=== PATIENT | female | born 1995 | race Caucasian/White ===

== ENCOUNTER 2023-02-23 13:43 | Outpatient (OUT) | payer OTHER, SELFPAY ==
--- NOTE | 2023-02-23 13:46 | CT_ITS ---
The [address] [address] Patient Name: NATHANIEL TAYLOR MRN: [facility]:[id number] date: 1995 Sex: F Assigned Patient Location: CT Current Patient Location: CT Accession/Order Number: [id number] Exam Date: 02/23/2023 13:52 Report Date: 02/23/2023 14:13 At the request of: NON-STAFF PHYSICIAN Procedure: CT head/brain wo con EXAM: CT head/brain wo con HISTORY: Nausea R11.0, Dizziness R42 COMPARISON: None. TECHNIQUE: Axial soft tissue and bone windows through the calvarium with coronal and sagittal reformats. CT dose reduction technique was used including Automated Exposure Control. Findings: The paranasal sinuses and mastoid air cells are well aerated. No air-fluid levels. No extra-axial fluid collection. No intra-axial or extra-axial bleed. No mass effect or midline shift. The amos-white matter differentiation is preserved. The brain parenchymal volume is age appropriate. The ventricles are nondilated. The basal cisterns are patent. The craniovertebral junction is unremarkable. CT/CT head/brain wo con IMPRESSION: 1. No acute intracranial abnormality. Electronically authenticated by: DORA CLAYTON Date: 02/23/2023 14:13
== END 2023-02-23 13:44 | disposition home or self-care (01) ==
LOC: CT 13:43
DX: R42 Dizziness and giddiness (principal); G43.909 Migraine, unspecified, not intractable, without status migrainosus; R11.0 Nausea
CPT/HCPCS: 70450

== ENCOUNTER 2023-02-24 08:21 | Outpatient (OUT) | payer OTHER, SELFPAY ==
[2023-03-02 00:07] LABS: DHEA, Serum 145 ng/dL (31-701)
== END 2023-02-24 08:22 | disposition home or self-care (01) ==
LOC: LAB 08:22
DX: E27.8 Other specified disorders of adrenal gland (principal); E27.0 Other adrenocortical overactivity
CPT/HCPCS: 36415; 82533; 82626; 82627

== ENCOUNTER 2023-11-07 20:20 | Outpatient (REF) | payer OTHER, SELFPAY ==
[2023-11-13 11:20] LABS: Age Gdln ACOG Testing Note (.); IGP, rfx Aptima HPV ASCU Note (.)
== END 2023-11-07 20:21 | disposition home or self-care (01) ==
LOC: LAB 20:20
PROVIDERS: Visit Provider Obstetrics & Gynecology
DX: Z01.419 Encounter for gynecological examination (general) (routine) without abnormal findings (principal)
CPT/HCPCS: G0145

== ENCOUNTER 2023-12-05 14:20 | Outpatient (REF) | payer OTHER, SELFPAY | END 2023-12-05 14:21 | disposition home or self-care (01) | LOC: LAB 14:20 | PROVIDERS: Visit Provider Obstetrics & Gynecology | DX: D22.5 Melanocytic nevi of trunk (principal); D22.4 Melanocytic nevi of scalp and neck | CPT/HCPCS: 88305 ==

== ENCOUNTER 2024-12-16 13:30 | Outpatient (RCR) | payer OTHER, SELFPAY ==
[2024-12-10 14:35] VITALS: BP 121/78; PULSE 91; TEMP 36.6; O2SAT 96
[2024-12-10] MEDS: MULTIVIT INFUSN,ADULT 4,VIT K 10 ML in 0.9 % SODIUM CHLORIDE 1,000 ML 500 ML IV (14:40)
[2024-12-10] MEDS: ONDANSETRON PF 4 MG/2 ML VIAL IV (14:48)
[2024-12-10 15:19] LABS: Basophils Absolute Auto 0.1 10^3/uL (0.0-0.1); Basophils Percent Auto 0.4 % (0.2-2.0); Eosinophils Absolute Auto 0.1 10^3/uL (0.0-0.7); Eosinophils Percent Auto 0.9 % (0.9-7.0); Hematocrit 43.2 % (36.0-48.0); Hemoglobin 15.2 g/dL (12.0-16.0); Immature Granulocytes Abs Auto 0.05 10^3/uL (0.00-0.03); Immature Granulocytes Pct Auto 0.4 % (0.0-0.5); Lymphocytes Absolute Auto 2.3 10^3/uL (1.2-3.8); Lymphocytes Percent Auto 17.1 % (20.5-60.0); Mean Corpuscular HGB Conc 35.2 g/dL (29.9-35.2); Mean Corpuscular Hemoglobin 29.9 pg (26.7-34.0); Mean Platelet Volume 11.8 fL (9.5-13.5); Monocytes Absolute Auto 0.7 10^3/uL (0.3-0.8); Monocytes Percent Auto 5.5 % (1.7-12.0); Neutrophils Absolute Auto 10.3 10^3/uL (1.4-6.5); Neutrophils Percent Auto 75.7 % (43.0-75.0); Platelet Count 218 10^3/uL (150-450); Red Blood Count 5.08 10^6/uL (4.20-5.40); Red Cell Distribution Width 13.4 % (11.0-15.0); White Blood Count 13.6 10^3/uL (4.0-11.0)
[2024-12-10 15:32] LABS: Alanine Aminotransferase 37 U/L (14-59); Albumin Globulin Ratio 0.8; Albumin Level 3.4 g/dL (3.4-5.0); Alkaline Phosphatase 65 U/L (46-116); Anion Gap 15.9; BUN Creatinine Ratio 32.7; Bilirubin Total 0.4 mg/dL (0.2-1.0); Calcium 9.4 mg/dL (8.5-10.1); Carbon Dioxide 24.4 mmol/L (21.0-32.0); Chloride 101 mmol/L (98-107); Estimated GFR (African America >60 (>=60 mL/min/1.73m^2); Estimated GFR (Non-African Ame >60 (>=60 mL/min/1.73m^2); Globulin 4.3 g/dL; Glucose 89 mg/dL (74-106); Sodium 137 mmol/L (136-145); Total Protein 7.7 g/dL (6.4-8.2)
[2024-12-10 15:47] LABS: Aspartate Amino Transferase 28 U/L (15-37); Potassium 4.3 mmol/L (3.5-5.1)
[2024-12-10 16:26] LABS: Estimated Average Glucose 103 mg/dL; Glycohemoglobin A1C 5.2 % (4.5-6.2)
--- NOTE | 2024-12-10 16:33 | PC.NURSE ---
1620: Up to bathroom to void. Urine specimen obtained. Pt. denies needs or c/o.
[2024-12-10 17:51] LABS: Amphetamine Screen Urine NEGATIVE (NEGATIVE); Barbiturates Screen Urine NEGATIVE (NEGATIVE); Benzodiazepines Screen Urine NEGATIVE (NEGATIVE); Buprenorphine Screen Urine NEGATIVE (NEGATIVE); Cannabinoid Screen Urine NEGATIVE (NEGATIVE); Cocaine Screen Urine NEGATIVE (NEGATIVE); Methadone Screen Urine NEGATIVE (NEGATIVE); Methamphetamines Screen Urine NEGATIVE (NEGATIVE); Opiate Screen Urine NEGATIVE (NEGATIVE); Oxycodone Screen Urine NEGATIVE (NEGATIVE); Phencyclidine Screen Urine NEGATIVE (NEGATIVE); Tricyclic Antidepressant Urine NEGATIVE (NEGATIVE)
[2024-12-11 04:07] LABS: Transferrin 270 mg/dL (192-364)
[2024-12-11 05:07] LABS: HIV Ab/p24 Ag Screen Non Reactive (Non Reactive)
[2024-12-11 06:07] LABS: HBsAg Screen Negative (Negative); HCV Ab Non Reactive (Non Reactive); Rubella Antibodies, IgG <0.90 index (Immune >0.99)
[2024-12-11 13:12] LABS: Rapid Plasma Reagin, Quant Non Reactive titer (NonRea<1:1)
[2024-12-16 13:25] VITALS: BP 119/75; PULSE 82; TEMP 36.6; O2SAT 97
[2024-12-16] MEDS: MULTIVIT INFUSN,ADULT 4,VIT K 10 ML in 0.9 % SODIUM CHLORIDE 1,000 ML 500 ML IV (13:51)
[2024-12-16] MEDS: ONDANSETRON PF 4 MG/2 ML VIAL IV (13:52)
--- NOTE | 2024-12-16 14:19 | PC.NURSE ---
Tolerating infusion without c/o. Resting quietly with eyes closed. IV site remains without s&s of infiltration.
== END 2024-12-22 23:59 | disposition home or self-care (01) ==
LOC: INF 13:30
PROVIDERS: PCP Nurse Practitioner Family; Visit Provider Obstetrics & Gynecology
DX: O21.9 Vomiting of pregnancy, unspecified (principal); O99.280 Endocrine, nutritional and metabolic diseases complicating pregnancy, unspecified trimester; Z3A.00 Weeks of gestation of pregnancy not specified; E86.0 Dehydration
CPT/HCPCS: 36415; 80053; 80307; 82728; 83036; 84466; 85025; 86592; 86762; 86803; 86850; 86900; 86901; 87086; 87340; 87389; 96365; 96366; 96375; J2405

== ENCOUNTER 2025-01-14 19:34 | Outpatient (REF) | payer OTHER, SELFPAY ==
--- OUTSIDE RECORDS SUMMARY | 2025-01-14 19:38 | XMS_ITS | CCD ---
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 Name Role Phone NICK, DR NIELSEN Admitting Unavailable NICK, DR NIELSEN Attending Unavailable SMITH ., VI Primary Care Unavailable NICK, DR NIELSEN Consulting Unavailable ANGEL ., DR PAULINO Consulting Unavailable ANGEL ., DR PAULINO Admitting Unavailable ANGEL ., DR PAULINO Attending Unavailable SMITH ., VI Primary Care Unavailable ARLINGTON, DR NIELSEN V Consulting Unavailable ANGEL ., DR PAULINO Consulting Unavailable ANGEL ., DR PAULINO Admitting Unavailable ANGEL ., DR PAULINO Attending Unavailable REQUEST, DR NONE LISTED Primary Care Unavaila ble ANGEL ., DR PAULINO Consulting Unavailable Lore[place], Yovany Consulting Unavailable ANGEL ., DR PAULINO Admitting Unavailable ANGEL ., DR PAULINO Attending Unavailable REQUEST, NONE LISTED Primary Care Unavaila ble ANGEL ., DR PAULINO Consulting Unavailable ANGEL ., DR PAULINO Admitting Unavailable ANGEL ., DR PAULINO Attending Unavailable REQUEST, NONE LISTED Primary Care Unavaila ble ANGEL ., DR PAULINO Consulting Unavailable Nelida Mckenzie Unavailable TY STRATTON Attending Unavailable NELIDA MCKENZIE Referring Unavailable NELIDA MCKENZIE Primary Care Unavailable YANELI Mckenzie Primary Care Provider Junito Ortiz Attending Provider Nelida Mckenzie Primary Care Unavailable Junito Ortiz Attending Unavailable Junito Ortiz Admitting Unavailable [place] Nelida DEL VALLE Primary Care Provider Unallocated , Noms Provider Primary Care Provi aristeo Maurice Renee DO Unavailable MAURICE RENEE Attending Unavailable NELIDA MCKENZIE Referring Unavailable JUNITO ORTIZ Attending Unavailable Allergies Allergy Classification Reported Allergen(s) Allergy Type Date of Onset Reaction(s) Facility (9 sources) House dust mite Drug allergy Unknown [facility] pyco Other (15 sources) Pollen Drug allergy 4 Unknown [facility] Other (5 sources) house dust allergenic extract; Translations: [house dust] Drug Allergy 4 Unknown Reaction [facility] (5 sources) Pollen; Translations: [pollen extracts] Allergy to substance 4 Unknown Reaction [facility] Medications Current Medications Medication Drug Class(es) Dates Sig (Normalized) Sig (Original) atogepant 60 MG Oral Tablet [Qulipta] (1 source) take 1 tablet by mouth every twenty-four hours Qulipta 60 MG 1 tablet Orally Once a day Active dexamethasone 1 mg oral tablet (2 sources) Corticosteroid Start: 02-21-2023 Dexamethasone 1 MG 1 tablet Orally 11pm for 1 days Jan, Active Doxylamine Succinate, Sleep, (UNISOM PO) (3 sources) Doxylamine Succinate, Sleep, (UNISOM PO) Take by mouth Active famotidine 10 mg oral tablet (3 sources) Histamine-2 Receptor Antagonist famotidine (Pepcid) 10 MG tablet Take by mouth Active fexofenadine (10 sources) Histamine-1 Receptor Antagonist Start: 12-25-2023 fexofenadine (Blanche Allergy) Active PO December 25, 2023 12:00am Start: 09-19-2023 End: 11-28-2023 fexofenadine (Blanche Allerg y) Discontinued PO Daily September 19, 2023 12:00am November 28, 2023 8:59am Start: 09-19-2023 fexofenadine ( Blanche Allergy) Active PO Daily September 19, 2023 12:00am Start: 09-12-2023 End: 12-17-2024 fexofenadine (Blanche Allerg y) 180 MG tablet 09/12/2023 12/17/2024 Discontinued Magnesium (18 sources) Start: 12-25-2023 magnesium Acti ve PO December 25, 2023 12:00am Start: 09-03-2023 End: 11-28-2023 magnesium Discontinued PO [facility] 2023 12:00am November 28, 2023 8:59am Start: 09-03-2023 magnesium Acti ve PO September 03, 2023 12:00am Start: 08-17-2022 magnesium 100 MG tablet 08/17/2022 Active Magnesium OTC, d aily Active ondansetron 4 mg oral tablet (20 sources) Serotonin-3 Receptor Antagonist Start: 11-05-2024 take 1 tablet by mouth every six hours as needed for nausea and nausea, then take 1 tablet by mouth every six hours as needed for nausea and nausea ondansetron (Zofran) 4 MG tablet Indications: Nausea and vomiting in ([facility]) Take 1 tablet (4 mg) by mouth every 6 (six) hours if needed for nausea or vomiting for up to 30 doses Take 1 tablet by mouth every 6 hours as needed for nausea. 30 tablet 3 11/05/2024 Active Start: 09-03-2023 End: 12-25-2023 take 4 mg by mouth once daily Ondansetron Hcl Active 4 MG PO Daily December 25, 2023 12:36pm Start: 07-17-2023 take 1 tablet by preethi th every twenty-four hours Ondansetron HCl 4 MG 1 tablet Orally Once a day for 14 days Jun, Active End: 12-17-2024 take 1 tablet by mouth every eight hours as needed ondansetron ODT (Zofran-ODT) 4 MG disintegrating tablet Take 4 mg by mouth every 8 (eight) hours if needed 12/17/2024 Discontinued take 1 tablet by preethi th every six hours as needed Ondansetron HCl 4 MG 1 tablet on the tongue and allow to dissolve Orally every 6 hours as needed Not-Taking/PRN pantoprazole 40 mg delayed release oral tablet (3 sources) Proton Pump Inhibitor Start: 12-17-2024 End: 12-17-2025 take 1 tablet by mouth before mealtime pantoprazole (Protonix) 40 MG EC tablet Indications: Gastroesophageal reflux disease with esophagitis, unspecified whether hemorrhage Take 1 tablet (40 mg) by mouth in the morning. Take before meals. Do not crush, chew, or split. 30 tablet 11 12/17/2024 12/17/2025 Active Probiotic Product (PROBIOTIC ADVANCED PO) (5 sources) Probiotic Produc t (PROBIOTIC ADVANCED PO) Probiotic Active pyridoxine hydrochloride 25 mg oral tablet (3 sources) take 1 tablet by mouth once daily pyridoxine (Vitamin B-6) 25 MG tablet Take 25 mg by mouth Daily Active qulipta 60 mg tablet (3 sources) take 1 tablet by mouth every twenty-four hours Qulipta 60 MG 1 tablet Orally Once a day Active rizatriptan 10 mg oral tablet (13 sources) Serotonin-1b and Serotonin-1d Receptor Agonist Start: 07-04-2024 rizatriptan (MAXALT) 10 mg tablet Indications: Migraine without aura and without status migrainosus, not intractable TAKE 1 TABLET AT ONSET OF MIGRAINE MAY REPEAT DOSE AFTER 2HRS IF MIGRAINE PERSISTS MAX 2/24HR 12 tablet 2 07/04/2024 Active Start: 09-05-2023 rizatriptan (M AXALT) 10 mg tablet Indications: Migraine without aura and without status migrainosus, not intractable Take 1 tablet just after onset of migraine. May repeat the dose after 2 hours if migraine persists. Max of 2 doses per 24 hours. 12 tablet 2 09/05/2023 Active Start: 05-23-2023 End: 11-28-2023 take 5 mg by mouth once daily Rizatriptan Discontinued 5 MG PO Daily September 03, 2023 12:00am November 28, 2023 8:59am verapamil hydrochloride 120 mg extended release oral tablet (2 sources) Calcium Channel Jesús Start: 09-05-2023 take 1 tablet by mouth once daily verapamil SR (CALAN-SR) 120 mg CR tablet Indications: Migraine without aura and without status migrainosus, not intractable Take 1 tablet (120 mg total) by mouth nightly. 30 tablet 5 09/05/2023 Active Completed/Discontinued Medications Medication Drug Class(es) Dates Sig (Normalized) Sig (Original) Atogepant (4 sources) Start: 09-03-2023 End: 09-19-2023 take 60 mg by mouth once daily Atogepant Discontinued 60 MG PO Daily September 03, 2023 12:00am September 19, 2023 11:04am atogepant (QULIPTA) 60 mg tablet (2 sources) Start: 05-23-2023 End: 09-05-2023 take 1 tablet by mouth in the morning atogepant (QULIPTA) 60 mg tablet Indications: Migraine without aura and without status migrainosus, not intractable Take 60 mg by mouth in the morning. 30 tablet 5 05/23/2023 09/05/2023 Discontinued Start: 05-23-2023 take 1 tablet by preethi th in the morning atogepant (QULIPTA) 60 mg tablet Indications: Migraine without aura and without status migrainosus, not intractable Take 60 mg by mouth in the morning. 30 tablet 5 05/23/2023 Active 24 hr buPROPion hydrochloride 150 mg extended release oral tablet (20 sources) Aminoketone Start: 09-19-2023 End: 11-28-2023 take 150 mg by mouth once daily Bupropion Hcl Discontinued 150 MG PO Daily September 19, 2023 11:41am November 28, 2023 8:59am Start: 09-03-2023 End: 09-19-2023 take 1 tablet by mouth once daily Bupropion Hcl (Wellbutrin Xl) 300 mg tablet extended release 24 hr Discontinued 300 MG PO Daily September 03, 2023 2:17pm September 19, 2023 11:41am take 2 tablets by mo uth every twenty-four hours in the morning buPROPion XL (WELLBUTRIN XL) 150 mg 24 hr tablet Take 2 tablets (300 mg total) by mouth in the morning. Active take 1 tablet by preethi th every twenty-four hours Wellbutrin XL 300 MG 1 tablet in the morning Orally Once a day for 90 days Active take 1 tablet by preethi th every twenty-four hours in the morning buPROPion XL (WELLBUTRIN XL) 150 mg 24 hr tablet Take 1 tablet (150 mg total) by mouth in the morning. 0 Active take 1 tablet by preethi th every twenty-four hours Wellbutrin XL 150 MG 1 tablet in the morning Orally Once a day for 90 days Active magnesium oxide 250 mg oral tablet (2 sources) End: 09-05-2023 take 1 tablet by mouth in the morning magnesium oxide 250 mg tablet Take 1 tablet (250 mg total) by mouth in the morning. 0 09/05/2023 Discontinued metoclopramide 10 mg oral tablet (5 sources) Dopamine-2 Receptor Antagonist Start: 12-16-2024 End: 12-17-2024 take 1 tablet by mouth before mealtime as needed for nausea metoclopramide (Reglan) 10 MG tablet Indications: Nausea and vomiting in ([facility]) TAKE 1 TABLET BY MOUTH IN THE MORNING, NOON, EVENING, 30 MINUTES BEFORE MEALS NEEDED FOR NAUSEA 90 tablet 3 12/16/2024 12/17/2024 Discontinued (Ineffective) Start: 11-14-2024 End: 12-14-2024 metoclopramide (Reglan) 10 M G tablet Indications: Nausea and vomiting in ([facility]) Take 1 tablet (10 mg) by mouth in the morning and 1 tablet (10 mg) at noon and 1 tablet (10 mg) in the evening. Take before meals. Take 1 tablet by mouth 30 minutes prior to meals 3 times daily as needed for nausea. 90 tablet 11/14/2024 12/14/2024 Active omeprazole 40 mg delayed release oral capsule (20 sources) Proton Pump Inhibitor Start: 09-03-2023 End: 11-28-2023 take 40 mg by mouth once daily Omeprazole Discontinued 40 MG PO Daily 90 90 September 03, 2023 2:16pm November 28, 2023 8:59am Start: 02-21-2023 take 2 capsules by m outh in the morning omeprazole (PriLOSEC) 20 mg capsule Take 2 capsules (40 mg total) by mouth in the morning. 02/21/2023 Active Start: 02-21-2023 take 1 capsule by mo uth once daily Omeprazole 40 MG 1 capsule 30 minutes before morning meal Orally Once a day for 90 days Jan, Active Start: 02-21-2023 take 1 capsule by mo uth in the morning omeprazole (PriLOSEC) 20 mg capsule Take 1 capsule (20 mg total) by mouth in the morning. 0 02/21/2023 Active PNV no.95/ferrous fum/folic ac ( ORAL) (2 sources) End: 09-05-2023 take 1 tablet by mouth once daily before mealtime PNV no.95/ferrous fum/folic ac ( ORAL) Take 1 tablet by mouth daily. 0 09/05/2023 Discontinued take 1 tablet by preethi once daily before mealtime PNV no.95/ferrous fum/folic ac ( ORAL) Take 1 tablet by mouth daily. 0 Active propranolol hydrochloride 20 mg oral tablet (4 sources) beta-Adrenergic Jesús Start: 05-23-2023 End: 09-05-2023 propranoloL (INDERAL) 20 mg tablet Indications: Migraine without aura and without status migrainosus, not intractable Take 1 tablet (20 mg) twice daily for 3 days, then reduce to 1 tablet daily for 3 days, then discontinue 9 tablet 0 05/23/2023 09/05/2023 Discontinued take 1 tablet by mouth at bedtim e Propranolol HCl 60 MG 1 tablet Orally HS for migraines Active vitamin B12 (5 sources) Vitamin B12 Vitamin B12 Not- Taking Problems Active Problems Problem Classification Problem Date Documented Date Episodic/Chronic Anxiety disorders (17 sources) Anxiety; Translations: [Anxiety disorder, unspecified] Chronic Coma; stupor; and brain damage (2 sources) Somnolence; Translations: [Daytime somnolence] Onset: 09-05-1909-05-2023 Episodic Conditions associated with dizziness or vertigo (12 sources) Dizziness; Translations: [Dizziness and giddiness] Episodic Esophageal disorders (7 sources) Gastroesophageal reflux disease; Translations: [Gastro-esophageal reflux disease without esophagitis] 09-24-2023 Chronic Headache; including migraine (20 sources) Migraine; Translations: [Migraine, unspecified, not intractable, without status migrainosus] Onset: 03-21-20 Chronic Immunizations and screening for infectious disease (1 source) Encounter for screening for human papillomavirus (HPV); Translations: [ENC SCREENING HUMAN PAPILLOMAVIRUS] Onset: 11-05-19 Episodic Malaise and fatigue (1 source) Other fatigue; Translations: [OTHER FATIGUE] Onset: 08-29-19 Episodic Menstrual disorders (5 sources) Irregular menstruation, unspecified; Translations: [Missed period] Onset: 08-02-19 Chronic Mood disorders (13 sources) Depressive disorder; Translations: [Major depressive disorder, single episode, unspecified] 09-03-2023 Chronic Nausea and vomiting (18 sources) Nausea; Translations: [Nausea] Onset: 08-29-19 Episodic Other complications of (2 sources) Vomiting of , unspecified; Translations: [Unspecified vomiting of , unspecified as to episode of care or not applicable] 12-17-2024 Episodic Other complications of (2 sources) High risk ; Translations: [Supervision of with other poor reproductive or obstetric history, unspecified trimester] 12-17-2024 Episodic Other endocrine disorders (5 sources) Other adrenocortical overactivity; Translations: [OTHER ADRENOCORTICAL OVERACTIVITY] Onset: 09-07-19 Chronic Other endocrine disorders (9 sources) Dehydroepiandrosterone sulfate level; Translations: [Other specified disorders of adrenal gland] Chronic Other endocrine disorders (9 sources) Increased cortisol level; Translations: [Other adrenocortical overactivity] Chronic Other endocrine disorders (2 sources) Other specified disorders of adrenal gland Chronic Other and delivery including normal (10 sources) ; Translations: [Encounter for supervision of normal , unspecified, unspecified trimester] Onset: 12-04-1912-05-2024 Episodic Other screening for suspected conditions (not mental disorders or infectious disease) (16 sources) Encounter for screening for malignant neoplasm of cervix; Translations: [Other specified abnormal findings of blood chemistry] Onset: 08-27-19 Episodic Other upper respiratory disease (13 sources) Seasonal allergy; Translations: [Other seasonal allergic rhinitis] 09-03-2023 Chronic Other upper respiratory infections (1 source) Acute upper respiratory infection, unspecified Episodic Residual codes; unclassified (2 sources) Gestation period, 11 weeks; Translations: [11 weeks gestation of ] 12-17-2024 Episodic Past or Other Problems Problem Classification Problem Date Documented Da te Episodic/Chronic Abdominal pain (4 sources) Unspecified abdominal pain; Translations: [UNSPECIFIED ABDOMINAL PAIN] Onset: 07-12-2022 Episodic Intracranial injury (5 sources) Personal history of traumatic brain injury; Translations: [History of concussion injury of brain] Onset: 05-23-2023 05-23-2023 Episodic Mood disorders (3 sources) Mood disorders Onset: 05-23-2023 05-23-2023 Other complications of ; puerperium affecting management of mother (3 sources) Central nervous system malformation in fetus affecting obstetrical care; Translations: [Choroid plexus cyst of fetus affecting care of mother, antepartum] Onset: 05-04-2021 05-04-2021 Episodic Other endocrine disorders (1 source) Endocrine disorder, unspecified; Translations: [ENDOCRINE DISORDER UNSPECIFIED] Onset: 08-03-2022 Episodic Other endocrine disorders (1 source) Other specified endocrine disorders; Translations: [Other specified endocrine disorders] Onset: 05-23-2023 Episodic Other endocrine disorders (4 sources) Cyst of pineal gland; Translations: [Other specified endocrine disorders] Onset: 05-23-2023 05-23-2023 Episodic Other gastrointestinal disorders (1 source) Abdominal distension (gaseous); Translations: [ABDOMINAL DISTENSION GASEOUS] Onset: 07-17-2022 Episodic Ovarian cyst (1 source) Other ovarian cyst, right side; Translations: [OTHER OVARIAN CYST RIGHT SIDE] Onset: 08-03-2022 Episodic Results Test Name Value Interpretation Reference Range Facility Urinalysis macro (dipstick) panel (U)on 12-17-2024 Bilirubin, UA Negative Negative - 4(70) +++ mg/dL [facility] Blood, UA Negative Negative - 50 Cj/mcL [facility] Clarity, UA Clear [facility] Color, UA Yellow [facility] Glucose, UA Negative Negative - 2000(110) ++++ mg/dL [facility] Interpretation and review of laboratory results Abnormal [facility] Ketones, UA Negative Negative - 160(16) ++++ mg/dL [facility] Leukocytes, UA Positive Negative - 500+++ Cosmo/mcL [facility] Comment on above: small Nitrite, UA Negative Negative - Positive [facility] pH, UA 5.5 5 - 9 [facility] Protein, UA Negative Negative - 2000(20) ++++ mg/dL [facility] Spec Grav, UA 1.03 1 - 1.03 [facility] Urobilinogen, UA 0.2 0.2 - 12 mg/dL [facility] ALL CBC WITH AUTO DIFFon BASOPHILS ABSOLUTE AUTO 0.1 N [facility] Basophils/100 WBC (Bld) 0.4 % 0.2 - 2.0 % [facility] Eosinophils/100 WBC (Bld) 0.9 % 0.9 - 7.0 % [facility] Erythrocyte distribution width (RBC) [Ratio] 13.4 % 11.0 - 15.0 % [facility] Hematocrit (Bld) [Volume fraction] 43.2 % 36.0 - 48.0 % [facility] Hemoglobin (Bld) [Mass/Vol] 15.2 g/dL 12.0 - 16.0 g/dL [facility] IMMATURE GRANULOCYTES ABS AUTO 0.05 High [facility] Immature granulocytes/100 WBC (Bld) 0.4 % 0.0 - 0.5 % [facility] Interpretation and review of laboratory results Abnormal [facility] LYMPHOCYTES ABSOLUTE AUTO 2.3 [facility] Lymphocytes/100 WBC (Bld) 17.1 % Low 20 .5 - 60.0 % [facility] MCH (RBC) [Entitic mass] 29.9 pg 26. 7 - 34.0 pg [facility] MCHC (RBC) [Mass/Vol] 35.2 g/dL 29.9 - 35.2 g/dL [facility] MCV (RBC) [Entitic vol] 85 fL 81.0 - 99.0 fL [facility] MONOCYTES ABSOLUTE AUTO 0.7 N [facility] Monocytes/100 WBC (Bld) 5.5 % 1.7 - 12.0 % [facility] NEUTROPHILS ABSOLUTE AUTO 10.3 High [facility] Neutrophils/100 WBC (Bld) 75.7 % High 43 .0 - 75.0 % [facility] Platelet mean volume (Bld) [Entitic vol] 11.8 fL 9.5 - 13.5 fL [facility] TBH EO # 0.1 [facility]H PLT 218 [facility] RBC 5.08 [facility] WBC 13.6 High [facility] HCG ( test) Ql (U)o n 12-05-2024 Interpretation and review of laboratory results Abnormal [facility] Preg Test, Ur Positive Negative [facility] US OB TRANSVAGINALon 025 US OB TRANSVAGINAL EXAM: US OB TRANSVAGINAL HISTORY: Dating. COMPARISON: None available. TECHNIQUE: Two-dimensional transvaginal grayscale ultrasound imaging of the pelvis was performed. Color Doppler evaluation of the ovaries was also performed. FINDINGS: The uterus demonstrates a normal homogeneous echotexture. The cervix measures 3.5 cm in length and the cervical os is closed. The right ovary measures 4.1 x 1.4 x 1.7 cm and demonstrates a normal echotexture. There is normal color Doppler flow. The left ovary measures 4.2 x 1.5 x 3.8 cm and demonstrates a normal echotexture. There is normal color Doppler flow. No fluid is present within the cul-de-sac. There is a single, live intrauterine gestation identified with a heart rate of 165 beats per minute and a crown-rump length measurement of 3.1 cm, correlating to a gestational age of 10 weeks 0 days (+/- 6 days). There is a 1.4 cm subchorionic hemorrhage visualized. A yolk sac is visualized. IMPRESSION: 1. Single, live intrauterine gestation 9 weeks, 5 days by LMP. Today's ultrasound measurements correlate with a gestational age of 10 weeks 0 days (+/- 6 days). JUDITH by today's ultrasound is 07/03/2025. 2. Small subchorionic hemorrhage. 3. Normal color Doppler evaluation of the bilateral ovaries. Interpreted by: Electronically signed by DORA HOBBS II, MD, PHD at 06-Dec-2024 08:41:12 AM [facility] Normal Not Available Comment on above: Order Comment: US OB TRANSVAGINAL No LMP recorded. Urinalysis macro (dipstick) panel (U)on 12-05-2024 Bilirubin, UA Negative Negative - 4(70) +++ mg/dL [facility] Blood, UA Negative Negative - 50 Cj/mcL [facility] Clarity, UA Clear [facility] Color, UA Yellow [facility] Glucose, UA Negative Negative - 2000(110) ++++ mg/dL [facility] Interpretation and review of laboratory results Abnormal [facility] Ketones, UA Negative Negative - 160(16) ++++ mg/dL [facility] Leukocytes, UA Positive Negative - 500+++ Cosmo/mcL [facility] Nitrite, UA Negative Negative - Positive [facility] pH, UA 7 5 - 9 [facility] Protein, UA Positive Negative - 2000(20) ++++ mg/dL [facility] Spec Grav, UA 1.02 1 - 1.03 [facility] Urobilinogen, UA 1.0 0.2 - 12 mg/dL [facility] 12-05-2023 L Specimen: [id number] Received: 12/06/23 Status: FRANNY Rees Num: [id number] Spec Type: Surgical Subm Dr: Junito Ortiz Tissues: A Skin-Other than Cyst, tag, debridement or plastic repair (LT ABDOMEN) B Skin-Other than Cyst, tag, debridement or plastic repair (MIDLINE ABDOMEN) C Skin-Other than Cyst, tag, debridement or plastic repair (POSTERIOR NECK) D Skin-Other than Cyst, tag, debridement or plastic repair (LT BREAST) Procedures: HE/7, Gross/Micro L4/4 Age/ Patient Sex Location Account Attending Physician Kat Bob 27/F [facility] [id number] Junito Ortiz SPEC NUM: [id number] RECD: 12/06/23 STATUS: FRANNY ESTRELLASheron NUM: [id number] YURY: 12/05/[address] [facility] [address]: Junito Ortiz ENTERED: 12/06/[address] [facility] [address]: Osiel,Lab SPEC TYPE: Surgical DEPT: GAMALIEL FLORES ORDERED: HE/7, Gross/Micro L4/4 ORDERED: HE/7, Gross/Micro L4/4 Pathological Diagnosis A, skin, left abdomen, shave excision: -Compound nevus (only mild junctional component) with evidence of dermal maturation, and only slightly extending to the deep margin B, skin, midline abdomen, shave excision: -Compound nevus (only minimal junctional component) also with evidence of dermal maturation, and with transected deep margin C, skin, posterior neck, shave excision: -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 -The deep margin is focally mildly involved D, skin, left breast, shave excision: -Intradermal nevus in 1 minute focus in the superficial dermis -All margins are negative for this benign nevoid lesion in the planes of sections examined -Benign epidermis also with incidentally minor suggested background changes of lentigo -Mild nonspecific proliferations of the small vessels in the superficial dermis, and with occasionally admixed pigment incontinence of the possible nonspecific chronic residual effect from previously healed old injury or irritation -- Specimen: [id number] Received: 12/06/23 Status: FRANNY Rees Num: [id number] Spec Type: Surgical Subm Dr: Junito Ortiz Tissues: A Skin-Other than Cyst, tag, debridement or plastic repair (LT ABDOMEN) B Skin-Other than Cyst, tag, debridement or plastic repair (MIDLINE ABDOMEN) C Skin-Other than Cyst, tag, debridement or plastic repair (POSTERIOR NECK) D Skin-Other than Cyst, tag, debridement or plastic repair (LT BREAST) Procedures: Simba, Gross/Micro L4/4 -- Patient: Kat Bob [id number] (Continued) -- Specimen: [id number] Received: 12/06/23 (Continued) Signed (signatu re on file) John Zamudio MD 12/10/232000 -- Specimen: [id number] Received: 12/06/23 Status: FRANNY Rees Num: [id number] Spec Type: Surgical Subm Dr: Junito Ortiz Tissues: A Skin-Other than Cyst, tag, debridement or plastic repair (LT ABDOMEN) B Skin-Other than Cyst, tag, debridement or plastic repair (MIDLINE ABDOMEN) C Skin-Other than Cyst, tag, debridement or plastic repair (POSTERIOR NECK) D Skin-Other than Cyst, tag, debridement or plastic repair (LT BREAST) Procedures: REBASimba, Gross/Micro L4/4 -- Patient: Kat Bob Greer [id number] (Continued) -- Specimen: [id number] Received: 12/06/23-1306 (Continued) Clinical Information Suspicious skin nevus Gross Description Received are 4 formalin filled containers each labeled with the patient's name, date of and specific specimen site. A. Further labeled left abdomen is a 0.4 x 0.3 x 0.3 cm polypoid murguia skin shave biopsy. The specimen is inked green along its resection margin, bisected and entirely submitted in A1. B. Further labeled midline abdomen is a 0.4 x 0.3 x 0.2 cm polypoid murguia skin shave biopsy. The specimen is inked orange along its resection margin, bisected and entirely submitted in B1. C. Further labeled posterior neck (per requisition) is a 0.6 x 0.4 x 0.2 cm papular murguia skin shave biopsy. The specimen is inked black along its resection margin, bisected and entirely submitted in C1. D. Further labeled left breast (per requisition) is a 0.8 x 0.3 x 0.2 cm papular murguia skin shave biopsy. The specimen is inked green along its resection margin, trisected and entirely submitted in D1. TW CPT Codes 20366S1 -- (more content not included)... Normal [facility] CORTISOL 24HR URINEon 2022 Cortisol,F,ug/24hr,U 26 ug/24 hr Normal 6-42 [facility] Comment on above: Performed By: #### C ORT24 #### [facility] [address], [place] [address] Dr. Lucretia Zamudio Cortisol,F,ug/L,U 10 ug/L Normal Undefined [facility] Comment on above: Performed By: #### C ORT24 #### [facility] [address], [place] [address] ABDOMEN WO/W CONon 2022 CT ABDOMEN WO/W CON CLINICAL HISTORY: Blood chemistry abnormal. Elevated DHEA, nausea, fatigue. EXAMINATION: Unenhanced, enhanced CT scan of the abdomen: 08/26/2022. COMPARISON: None. TECHNIQUE: 3 mm axial images from lung bases through iliac crests without and following the administration of intravenous contrast were obtained. Sagittal, coronal reconstructions were performed. Post contrast images were obtained at various intervals. Dose reduction techniques were achieved by using automated exposure control and/or adjustment of mA and/or kV according to patient size and/or use of iterative reconstruction technique. FINDINGS: The lung bases demonstrate no focal abnormalities. The heart size seems normal. CT ABDOMEN: There is no focal lesions seen in the liver on the pre or postcontrast images. Similarly there is no nodule seen in the right or the left adrenal gland. The spleen, gallbladder, pancreas, kidneys appear normal as well. On the delayed phase images there are no suspicious filling defects in the opacified portions collecting systems or the ureters. The visualized bowel loops are of normal caliber. There is no retroperitoneal adenopathy. The visualized osseous structures are normal. IMPRESSION: 1. There is no definite mass seen in the right or the left adrenal gland. 2. The study is essentially is within normal limits. Electronically authenticated by: YOVANY CLARK Date: 2022-08-27 08:37 Normal [facility] DHEA SERUMon 08-13-2022 Dehydroepiandrosterone (DHEA) 1255 ng/dL Critically high 31-701 [facility] Comment on above: Result Comment: Age 1 - 5 years 0 - 67 6 - 7 years 0 - 110 8 - 10 years 0 - 185 11 - 12 years 0 - 201 13 - 14 years 0 - 318 15 - 16 years 39 - 481 17 - 19 years 40 - 491 >19 years 31 - 701 Performed By: #### D ABIEL. #### [facility] [address] [place] [address] Dr. Lucretia Zamudio TESTOSTERONE, FREE,DIRECT, T OTALon 08-06-2022 Free Testosterone(Direct) 2.8 pg/mL Normal 0.0-4.2 [facility] Comment on above: Result Comment: Perf ormed at: BN Performed By: #### T ESTFRD #### [facility] [address] [place] [address] Dr. Lucretia Zamudio Testosterone [Mass/Vol] 42 ng/dL Normal 13-71 [facility] Comment on above: Result Comment: Perf ormed at: CB Performed By: #### T ESTFRD #### [facility] [address] [place] [address] Dr. Lucretia Zamudio CORTISOL Shiv 08-03-2022 Cortisol AM 23.4 ug/dL Critically high 6.2-19.4 [facility] Comment on above: Performed By: #### P MINI #### [facility] [address] [place] [address] Dr. Lucretia Zamudio DHEA-SULFATEon 08-03-2022 DHEA-Sulfate 312.0 ug/dL Normal 84.8-378.0 [facility] Comment on above: Performed By: #### L BCLH #### [facility] [address] [place] [address] Dr. Lucretia Zamudio ESTRADIOLon 08-03-2022 Estradiol 198.0 pg/mL Normal [facility] Comment on above: Result Comment: Adul t Female: Follicular phase 12.5 - 166.0 Ovulation phase 85.8 - 498.0 Luteal phase 43.8 - 211.0 Postmenopausal <6.0 - 54.7 1st trimester 215.0 - >4300.0 Dona ECLIA methodology Performed By: #### E NIRALI #### [facility] [address] [place] [address] Dr. Lucretia Zamudio FSHon 08-03-2022 FSH 3.0 mIU/mL Normal [facility] Comment on above: Result Comment: Adul t Female: Follicular phase 3.5 - 12.5 Ovulation phase 4.7 - 21.5 Luteal phase 1.7 - 7.7 Postmenopausal 25.8 - 134.8 Performed By: #### L [facility] #### [facility] [address] [place] [address] Dr. Lucretia Zamudio LUTEINIZING HORMONE (LH)on 0 08-03-2022 LH 7.7 mIU/mL Normal [facility] Comment on above: Result Comment: Adul t Female: Follicular phase 2.4 - 12.6 Ovulation phase 14.0 - 95.6 Luteal phase 1.0 - 11.4 Postmenopausal 7.7 - 58.5 Performed By: #### L BCL #### [facility] [address] [place] [address] Dr. Lucretia Zmaudio PROGESTERONEon 08-03-2022 Progesterone 0.2 ng/mL Normal [facility] Comment on above: Result Comment: Foll icular phase 0.1 - 0.9 Luteal phase 1.8 - 23.9 Ovulation phase 0.1 - 12.0 First trimester 11.0 - 44.3 Second trimester 25.4 - 83.3 Third trimester 58.7 - 214.0 Postmenopausal 0.0 - 0.1 Performed By: #### P ROGES #### [facility] [address] [place] [address] Dr. Lucretia Zamudio FREE T4on 08-02-2022 Free T4 [Mass/Vol] 1.13 ng/dL Normal 0.76-1.46 [facility] Comment on above: Performed By: #### F T4 #### [facility] [address] [place] [address] [address] Lucretia Zamudio GLYCOHEMOGLOBIN A1Con 2022 ADA RECOMMENDATION SEE BELOW Normal [facility] Comment on above: Result Comment: ADA RECOMMENDED LIMIT 4.0 - 6.0 ADA THERAPEUTIC TARGET < 7.0 ACTION SUGGESTED > 7.0 Performed By: #### P MINI #### [facility] [address] [address] [address] Lucretia Zamudio Glucose [Mass/Vol] 105 mg/dL Normal [facility] Comment on above: Performed By: #### P ANDRAEES #### [facility] [address] [place] [address] Dr. Lucretia Zamudio HbA1c (Bld) [Mass fraction] 5.3 % Normal 4.5-6.2 [facility] Comment on above: Performed By: #### P MINI #### [facility] [address] [place] [address] Dr. Lucretia Zamudio TSHon 08-02-2022 TSH 1.971 uIU/mL Normal 0.358-3.740 [facility] Comment on above: Performed By: #### T SH #### [facility] [address] [place] [address] Dr. Lucretia Zamudio US PELVIS AND TRANSVAGon US PELVIS AND TRANSVAG EXAMINATION: US PELVIS AND TRANSVAG HISTORY: Irregular periods COMPARISON: 04/20/2021 FINDINGS: The uterus is normal in size, contour and myometrial echotexture measuring 7.7 x 5.6 x 4 cm. The uterus is retroverted. No focal myometrial mass. The endometrium measures 8 mm, normal. The right ovary is normal in size measuring 4.8 x 3.6 x 2.2 cm. Normal color and Doppler flow. Area of anechoic echogenicity measuring 2.3 x 2.2 x 1.7 cm The left ovary is normal in appearance measuring 3.4 x 3.2 x 1.9 cm. Arm normal Color and Doppler flow right Small amount of free pelvic fluid in the cul-de-sac, likely physiologic IMPRESSION: 2.3 cm right ovarian simple cyst Electronically authenticated by: GIA PRESCOTT Date: 2022-08-02 18:42 Normal [facility] AMYLASEon 07-12-2022 Amylase [Catalytic activity/Vol] 50 U/L Normal 25-115 [facility] Comment on above: Performed By: #### P MINI #### [facility] [address] [place] [address] Dr. Lucretia Zamudio CBC AUTO DIFFon 07-12-2022 BASO # 0.1 103/ul Normal 0.0-0.1 [facility] Comment on above: Performed By: #### C BC #### [facility] [address] [place] [address] Dr. Lucretia Zamudio Basophils/100 WBC (Bld) 0.9 % Normal 0.2-2.0 [facility] Comment on above: Performed By: #### C BC #### [facility] [address] [place] [address] Dr. Lucretia Zamudio EO # 0.4 103/ul Normal 0.0-0.7 [facility] Comment on above: Performed By: #### C BC #### [facility] [address] [place] [address] [address] Lucretia Zamudio Eosinophils/100 WBC (Bld) 3.4 % Normal 0.9-7.0 [facility] Comment on above: Performed By: #### C BC #### [facility] [address] [place] [address] Dr. Lucretia Zamudio Erythrocyte distribution width (RBC) [Ratio] 12.7 % Normal 11.0-15.0 [facility] Comment on above: Performed By: #### C BC #### [facility] [address] [place] [address] Dr. Lucretia Zamudio Hematocrit (Bld) [Volume fraction] 44.1 % Normal 36.0-48.0 [facility] Comment on above: Performed By: #### C BC #### [facility] [address] [place] [address] Dr. Lucretia Zamudio Hemoglobin (Bld) [Mass/Vol] 14.5 g/dL Normal 12.0-16.0 [facility] Comment on above: Performed By: #### C BC #### [facility] [address] [place] [address] Dr. Lucretia Zamudio IG # 0.03 10e3/ul Normal 0.00-0.03 [facility] Comment on above: Performed By: #### C BC #### [facility] [address] [place] [address] Dr. Lucretia Zamudio IG % 0.3 % Normal 0.0-0.5 [facility] Comment on above: Performed By: #### C BC #### [facility] [address] [place] [address] Dr. Lucretia Zamudio LYMPH # 2.9 103/ul Normal 1.2-3.8 [facility] Comment on above: Performed By: #### C BC #### [facility] [address] [place] [address] Dr. Lucretia Zamudio Lymphocytes/100 WBC (Bld) 24.9 % Normal 20.5-60.0 [facility] Comment on above: Performed By: #### C BC #### [facility] [address] [place] [address] Dr. Lucretia Zamudio MANUAL DIFF REQ NO Normal [facility] Comment on above: Performed By: #### C BC #### [facility] [address] [place] [address] Dr. Lucretia Zamudio MCH (RBC) [Entitic mass] 28.9 pg Normal 26.7-34.0 [facility] Comment on above: Performed By: #### C BC #### [facility] [address] [place] [address] Dr. Lucretia Zamudio MCHC (RBC) [Mass/Vol] 32.9 g/dL Normal 29.9-35.2 [facility] Comment on above: Performed By: #### C BC #### [facility] [address] [place] [address] Dr. Lucretia Zamudio MCV (RBC) [Entitic vol] 87.8 fL Normal 81.0-99.0 [facility] Comment on above: Performed By: #### C BC #### [facility] [address] [place] [address] [address] Lucretia Zamudio MONO # 0.6 103/ul Normal 0.3-0.8 [facility] Comment on above: Performed By: #### C BC #### [facility] [address] [place] [address] [address] Lucretia Zamudio Monocytes/100 WBC (Bld) 5.4 % Normal 1.7-12.0 [facility] Comment on above: Performed By: #### C BC #### [facility] [address] [place] [address] [address] Lucretia Zamudio NEUT # 7.6 103/ul Critically high 1.4-6.5 [facility] Comment on above: Performed By: #### C BC #### [facility] [address] [address] [address] Lucretia Zamudio Neutrophils/100 WBC (Bld) 65.1 % Normal 43.0-75.0 [facility] Comment on above: Performed By: #### C BC #### [facility] [address] [address] [address] Lucretia Zamudio Platelet mean volume (Bld) [Entitic vol] 10.0 fL Normal 9.5-13.5 [facility] Comment on above: Performed By: #### C BC #### [facility] [address] [address] [address] Lucretia Zamudio PLT 277 103/ul Normal 150-450 [facility] Comment on above: Performed By: #### C BC #### [facility] [address] [address] [address] Lucretia Zamudio RBC 5.02 106/ul Normal 4.20-5.40 [facility] Comment on above: Performed By: #### C BC #### [facility] [address] [place] [address] Dr. Lucretia Zamudio WBC 11.6 103/ul Critically high 4.0-11.0 [facility] Comment on above: Performed By: #### C BC #### [facility] [address] [place] [address] Dr. Lucretia Zamudio CULTURE URINEon 07-12-2022 CULTURE URINE Culture Observations: LIGHT GROWTH OF MIXED GENITAL SILVIA. NO POTENTIAL PATHOGENS SEEN. Normal [facility] Comment on above: Performed By: #### P MINI #### [facility] [address] [place] [address] Dr. Lucretia Zamudio LIPASEon 07-12-2022 Lipase [Catalytic activity/Vol] 85.0 U/L Normal 73.0-393.0 [facility] Comment on above: Performed By: #### P MINI #### [facility] [address] [place] [address] Dr. Lucretia Zamudio PREG QUANT HCGon 07-12-2022 HCG QUANT 1 mIU/mL Normal [facility] Comment on above: Performed By: #### P MINI #### [facility] [address] [place] [address] Dr. Lucretia Zamudio HCG RANGE SEE BELOW Normal [facility] Comment on above: Result Comment: 5-50 0.2-1 WEEK 50-500 1-2 WEEKS 100-5,000 2-3 WEEKS 500-10,000 3-4 WEEKS 1,000-50,000 4-5 WEEKS 10,000-100,000 5-6 WEEKS 15,000-200,000 6-8 WEEKS 10,000-100,000 2-3 MONTHS Performed By: #### P MINI #### [facility] [address] [place] [address] Dr. Lucretia Zamudio PROF 14(COMP METB)on 023 Albumin [Mass/Vol] 4.0 g/dL Normal 3.4-5.0 [facility] Comment on above: Performed By: #### P MINI #### [facility] [address] [place] [address] Dr. Lucretia Zamudio Albumin/Globulin [Mass ratio] 1.1 {ratio} Normal [facility] Comment on above: Performed By: #### P MINI #### [facility] [address] [place] [address] Dr. Lucretia Zamudio ALP [Catalytic activity/Vol] 98 U/L Normal 46-116 [facility] Comment on above: Performed By: #### P ROGES #### [facility] [address] [place] [address] Dr. Lucretia Zamudio ALT [Catalytic activity/Vol] 16 U/L Normal 14-59 [facility] Comment on above: Performed By: #### P ROGES #### [facility] [address] [place] [address] [address] Lucretia Zamudio Anion gap [Moles/Vol] 9.7 mmol/L Normal [facility] Comment on above: Performed By: #### P ROGES #### [facility] [address] [place] [address] Dr. Lucretia Zamudio AST [Catalytic activity/Vol] 15 U/L Normal 15-37 [facility] Comment on above: Performed By: #### P ROGES #### [facility] [address] [place] [address] Dr. Lucretia Zamudio Bilirubin [Mass/Vol] 0.2 mg/dL Normal 0.2-1.0 [facility] Comment on above: Performed By: #### P ROGES #### [facility] [address] [place] [address] Dr. Lucretia Zamudio Calcium [Mass/Vol] 9.5 mg/dL Normal 8.5-10.1 [facility] Comment on above: Performed By: #### P ROGES #### [facility] [address] [place] [address] Dr. Lucretia Zamudio Chloride [Moles/Vol] 102 mmol/L Normal 98-107 [facility] Comment on above: Performed By: #### P ROGES #### [facility] [address] [address] [address] Lucretia Zamudio CO2 [Moles/Vol] 31.5 mmol/L Normal 21.0-32.0 [facility] Comment on above: Performed By: #### P ROGES #### [facility] [address] [address] [address] Lucretia Zamudio Creatinine [Mass/Vol] 0.79 mg/dL Normal 0.55-1.02 [facility] Comment on above: Performed By: #### P ROGES #### [facility] [address] [address] [address] Lucretia Zamudio EGFR-AF GEORGIAN >60 Normal >=60 [facility] Comment on above: Performed By: #### P ROGES #### [facility] [address] [address] [address] Lucretia Zamudio EGFR-NON AF GEORGIAN >60 Normal >=60 [facility] Comment on above: Performed By: #### P ROGES #### [facility] [address] [address] [address] Lucretia Zamudio Globulin (S) [Mass/Vol] 3.8 g/dL Normal T [facility] Comment on above: Performed By: #### P ROGES #### [facility] [address] [place] [address] Dr. Lucretia Zamudio Glucose [Mass/Vol] 95 mg/dL Normal 74-106 [facility] Comment on above: Performed By: #### P ROGES #### [facility] [address] [address] [address] Lucretia Zamudio Potassium [Moles/Vol] 4.2 mmol/L Normal 3.5-5.1 [facility] Comment on above: Performed By: #### P ROGES #### [facility] [address] [address] [address] Lucretia Zamudio Protein [Mass/Vol] 7.8 g/dL Normal 6.4-8.2 [facility] Comment on above: Performed By: #### P ROGES #### [facility] [address] [address] [address] Lucretia Zamudio Sodium [Moles/Vol] 139 mmol/L Normal 136-145 [facility] Comment on above: Performed By: #### P ROGES #### [facility] [address] [address] [address] Lucretia Zamudio Urea nitrogen [Mass/Vol] 12.0 mg/dL Normal 7.0-18.0 [facility] Comment on above: Performed By: #### P ROGES #### [facility] [address] [place] [address] Dr. Lucretia Zamudio Urea nitrogen/Creatinine [Mass ratio] 15.2 mg/mg Normal [facility] Comment on above: Performed By: #### P ROGES #### [facility] [address] [address] [address] Lucretia Zamudio UA RANDOMon 07-12-2022 Bilirubin Ql (U) Negative Normal NEGATIVE [facility] Comment on above: Performed By: #### P ROGES #### [facility] [address] [address] [address] Lucretia Zamudio Clarity (U) CLEAR Normal CLEAR [facility] Comment on above: Performed By: #### P ROGES #### [facility] [address] [place] [address] Dr. Lucretia Zamudio Color (U) LT. YELLOW Normal YELLOW [facility] Comment on above: Performed By: #### P ROGES #### [facility] [address] [place] [address] Dr. Lucretia Zamudio Glucose Ql (U) Negative Normal NEGATIVE [facility] Comment on above: Performed By: #### P ROGES #### [facility] [address] [place] [address] Dr. Lucretia Zamudio Hemoglobin Ql (U) Negative Normal NEGATIVE [facility] Comment on above: Performed By: #### P ANDRAEES #### [facility] [address] [place] [address] Dr. Lucretia Zamudio Ketones Ql (U) Negative Normal NEGATIVE [facility] Comment on above: Performed By: #### P ROGES #### [facility] [address] [place] [address] [address] Lucretia Zamudio LEUKOCYTES Negative Normal NEGATIVE [facility] Comment on above: Performed By: #### P ROGES #### [facility] [address] [place] [address] Dr. Lucretia Zamudio Nitrite Ql (U) Negative Normal NEGATIVE [facility] Comment on above: Performed By: #### P ROGES #### [facility] [address] [address] [address] Lucretia Zamudio pH (U) 7.0 [pH] Normal 5-9 [facility] Comment on above: Performed By: #### P ANDRAERODOLFO #### [facility] [address] [address] [address] Lucretia Zamudio SPEC GRAVITY 1.010 Normal 1.005-<=1.02 5 [facility] Comment on above: Performed By: #### P MINI #### [facility] [address] [address] [address] Lucretia Zamudio UA PROTEIN Negative Normal NEGATIVE/ TRACE [facility] Comment on above: Performed By: #### P MINI #### [facility] [address] [address] [address] Lucretia Zamudio Urobilinogen Qn (U) 0.2 {Tommie'U}/dL Normal 0.2 - 1. 0 [facility] Comment on above: Performed By: #### P MINI #### [facility] [address] [place] [address] Dr. Lucretia Zamudio Physical Therapy Noteon 05-2 Physical Therapy Note [id number] 5B1A[facility]1.00[facility] Coding Summaryon 08-17-2021 [facility] VmvjsqksNWp1rAb+PG hlYWQ+AY9THVCzU16u sMWaaI7IA4kAVT5QRX KCRNZKJK1COF5tnTG8 RZjmF9BspjSp XjkntNPnFI49EWd2KW B7qJpiIBktgJ8kqIAp F1v6PoWfKL64lR21KL qvPPYkBdU5DfCmfxau bWFy L8doOjBhwZAeMxj+PH RhYmxlIHdpZHRoPScx PJFwYzReaIetMP5gCh 9yZGVyLWNvbGxhcHNl OiBj d5ppMLWpJFuxKW8tnB qlN1KdxHV8GMCvs8r8 Ol67cFR+WIXlWUK8zQ sgSAsfg910TkRfq2fu IDM3 iKZaMXcqYWR1V49mm2 L6HXRvLOMkWTP1vEB3 sM3ugZbcsbtzE5VevS SxDqS3RSM0tUWqeJ9e bGln ccudoR1oZgc+Q09ESU 0IHLPHMU5PYwc4C5Qh PjwvdHI+FT12CPLoTO 79eISzmUYes2rexEx9 JzEw GPNaINW7wTacKGppu2 VvNWJiA80mbDHdr8L6 IGNvbGxhcHNlOyBlbX R1xT8dNIuapasku1cy dzsn Ssber6xzeg58pL33J1 9hQWnlLTPaGPV6NZFr CYMuaIdoef8knZ1uYg 8+NWmbt7ugb0jbeBw8 IjIw JAIchoFllOzhEHL8r4 YiBn31C7WaqDqre0Ol Ozb9np26mANps4M6sS Z7UEefDRVmdM1uGUsx ZnQ6 UDUyPjTsbD96lSJuDZ mfAl4dtVqhcXwjKC8w AVQakyieBPCruZ7aXC CfkDVjuHiaYG7xKOPy bjtm h124AnMsDDQ6BQFjiJ BbP2UrhL9oSiZuVPMd QKDgM1RdxXSsMRnaC5 26RAfkKbS9BKSxgfMo Y2Fs AUXqjNvdWrY3e6S6Kt 4Vd0JdznhxEQU5PCwy PXVqAkQoTmReMzU8O0 WdVlk2PHVgvYvzVW5j J3Bh SBKvcajjcellxWB5ZZ ZrPNGdjD53cRRhPPwu Dq9dt7M3p621JDLpVU PwnZ71Sm6xmLecZMSa dCBU oA1rvmfzl8ozprhjEu AuVXShSYa4QCj3ASLq nJkxLyKrAPL1ScU0SV N5gQWbkX2jjQorlxlo dG9w Oyc+Y36rvY4jDIP1YK H3usjeNWDzjbLoKT75 PO01V5UrRxcxnZRzoH U+ASNddvDwkMkpFK8m YmFj x4czg1JqJAaiK9EgLJ JbXHapBhy7SNHhUMU9 jUY9rE6iRORuHFwmr6 A4hGE5S1WpxtEmif1m b2xs YUPkBZojW86taLRrz8 M4JMIbdZU9CCGdlYga QcWogR53Pno+PGNvbG ped4NiQazdq0ejx7eg dGg9 IjMwJSIgdmFsaWduPS H0t2IxKv09F66cGFyz ZHRoPSIxNSUiIHZhbG gxkd5xgA0aFr4+PGNv bCB3 pAP4uD7lZYKbVuF0TV xqT723PvXycEYfHphq r3ylu3zduFv9NdMqCO EzodLjdIwyLPP1o5So Lz48 R78bYLesPHFuKDImXC VhCZCboOqelp5iwM4c Ii8+HF1wu8qctl03tJ 48dHI+XVDkDGZ0bEuf PSdw DFBvvR6cQDwyRwD9KT UjYlOsgV51dUSiNLll Dh9gxYukbDptIG4fFX Bimwmks341WwSxu4du IDEw aIChJRxeNMG7Q05sh7 L5SHFjKKMwQHB8kMW1 yU0cvRfsvhuzsMHimN sgdmVydGljYWwtYWxp Z246 IHRvcDsnPlBhdGllbn IvNgVmTTt6U8QxLnz8 WUElhGswUL2rkCOzEE yqJn4orUqmuXizRO6j NTBp reiss084YpWkt9gbIY OvuQZzZFsnWIH4C82r p5B9RIChADZwFNG5oS P5jY4nrUqbxatyyEOk dDsg dmVydGljYWwtYWxpZ2 46IHRvcDsnPkJpcnRo PSBswYC3EN77AY62aS Qvy8B7vBN2P3DuKUOd bmct ouwvaGQ0MFAmDCYrcT 05At5pcTiwSx6xWBJk IWR0CFYdcGWeD2BevX 9ePhFjSZHhEXZkL9Fi eHQt EDozU061SKdtYjA0LD JtrhNcG8YkGVYsfIql LxY0n0V5Bj9YG5P6FC 59IV21gLXal3P8tDE1 J3Bh YVBewkohymrpyRF6HH VdMTXkyS61Vp3gbNxt Qt1hZOSmFHN7LEHazG DfP6YpbB9mIjLxMJYb MDAw U5QiyXNyOWopN548RF fwGsY4FLHtdsVaW3Jm FEPjcRewSeO6o5U7Ab 4YHHh7XJ25PD27fCDu c3R5 rWN8A4NdNKMsnjpdfs zyyYP0FXCgNGSiyX29 Dv6gbYkdUp4nZXNmHW I0FPFagFIbP7WamA8o OiAj WLXhAFJjE0FwmRMdIY jsN263IEmsNrS4OTMz ieAnN4CzXJGqzJgmDd V6g7U8Fq2NMXDjVB10 IFR5 dTY6GL61GI95V7AzFs wvdGFibGU+PHRhYmxl IHdpZHRoPScxMDAlJy IhrBwdPU1dZv6eAKJj LWNv yWgvtNHpToDyt7wwQV MeHDjaSR6rqSvpF3Lg dSX8BCAyk6m1Mj63E1 4iK8OjoTG+PGNvbCB3 aWR0 iK3hGkZjIpO3HRxrX4 87JkRamFWkYmdba9qm m8cznGo6HmU7ZWZvjm WpoUttOBH2e3HzBa13 Y29s IHdpZHRoPSIxNSUiIH RsrXaewn2smX2nXd8+ QNEewOW7aUP7mU4aVv UtFeX8JFeaM888NbRy cCIv Fndjb3vzi2nskSm3Hh IwJSIgdmFsaWduPSJ0 x1EnRq41V7LwiZfcz7 UfEia6hb16bEGvj7Q3 bGU9 C9SaURMsjxnpzNYtpI iaHZ7bWTIpyqamZLAr nS5kZIImP6a4EhTkTi A1VXpsM7BoavT4WCPr cHQg QZxaBEC4E15cj0Y4BK YyWHCzFWB1lSH6bF9l bGlnbjogbGVmdDsgdm ZwjKtaFRnwMGjzZ280 IHRv uBjtRROyyI4yXIOqrA VbvAhsQL5pTKFcoslj Em0ETm6WXkthCoMWV3 uLUNRKVmQ7O6UxPgl8 ZCBz nRzcLU6hkIVnZKbpQw 5bcXynsUofJM2iLUSh hkisSHVxaE3lPDZknG GoiKztXH4dWHZnoxxe b250 MuKmTTB4UGEnlCPmG4 ZmlL6rUsNiTMGdJMTq O2PvlBEzQUjbH692MU qpZhO5WLRfdrQpD2Kg LWFs pJkeGnQ8h5P4Lt1eQe 7jZk7cTLt5LI33AO96 zXSvu6P1eBT6P7YrBV BoehhzfhbhyBD8ZTCd MDUw mN98zVImJSshMs8mb8 V1b121YLVuXFPqxH91 Wv6raAvxFGLzgOFDbD 5vvecne8dgmjxtLqMb MDAw YEr5OFc9YVWhgJgqBs ShQDB5ZoR0ABQ8kUAv yB2qeLudwhsrqE6vNh c+RnQwJDBooeI9P1Es Pjx0 QSIigXkeHF4yrJAwCJ qmSz4ccXmdpWldKF9s QRQmcthaRFVhhG4aPC OygEYqoTfgEV7yNVAb bjtm f025DrTxYRX7AZCalH DkQ8GchH0zPwNcMGEc UBVwY4YtxUZmFChsZ1 60NSpdVzU3TJXdlxFg Y2Fs ODZpzVieDsH1w8O4Wd 6XLU0EWNL4K9ZkGhl3 JLObbUbtRK0blSPnVH sdYt6lnOfnhRjdWO9s NTBp fewrHJLahI5bFVAuoI XucCtcEJ8mJZXwlswn n220HiLqELO6NQYevA PlE3KxlK0hPkCmXHFd MDAw X3SbaUIbAVxrK825NZ gzAqE8PCNnlwNbP2Ub OTObxTofAwE6g5T1Ai 9SHNI4ggDutilyS1S2 cGF0 aWVudDwvdGQ+PC90cj 24F5CeLyaoXyj9LBYq KPA5gES9cR7hUXNrLV oof6G6tOU0G9ZpdwRg ci1j p3qmMKYkXQieW78tfT Ivi6V9LRDjmNH8TKEe qBgtJrFeoM78Tpb+PG AbsCyvt6WmAwwom5xm d2lk sSi4WvQvBSLucrQfvB ihAAQ2o1XqYz97Q48v IHdpZHRoPSIzMCUiIH VofPgywh3vdH8bOt3+ PGNv eOG0qDT7wK8rUsChNm W8MUkbP375ZtMwyQVj Txsth4qwh4exaVp2Qh IwJSIgdmFsaWduPSJ0 b3Ai Dt78Y5OieCdmd3PsLx c5yr49vTCdy1N3rJT9 I4FxCSHwigbhjDUfyT nnKJ4cIVRozcnnGQKq aW5n TDYlH4g4LiZaQdU6WX znK1YipuJ6JWNgsEPp OSRusWYFlK9qcbfjq9 xvcjogIzAwMDAwMDt0 ZXh0 TESmoZhkPyRiAYR1Wu B3TTR7kGKzfY6moSxx ltofnH6bPih+UGh5c2 fwoNSgBE6vrOQ3XR26 ZD48 hDRnw2K6zWY5V3WgVR XgnwwukvanlST3FSAr DEWmhV49Hn3iwCvaUy 1jQZSbHLI0UDFqxWRi O2Nv gI1yZjHpLQIcUQSbD7 TxtXKhRIfkK773TRkw BhA0GEZsgpVnY7OqQB RehEioTiX0m6Z2Il8Q SU46 DB70RB28eVAga3V3cO C9E8UxGOXmstjjjpnb lHO4GUQfXKEpoN80Pr 3bfCtgPs0wXDKbXTO8 IFRp jUPzV6SvzL8fKlJrGR QgEXChJ2ZuzPWlRPay E749GSkxZcC8WOIatx SkE3EqVJHkuEuoFrB0 b3A7 Mr5SHj67JE08ZW48lC Daz5I6vWZ8S7KyEFGn aowfoedmlQT3CRVsUJ VqdT06Zt2bfKsiTf0k ZCAx GKA9SZMjjGVjS1IgzL 9kNgZzVOCbTNZdD1Cg bDDrGIffJ001HWygMt C8RCPwdkPkA8ZkBUTt aWdu JnW3b6Z6Ei8IMVkxzr e3W3QxAbdslMA+PC90 ZVDcZZ97iUEivBYtg3 klmOv4AuGpPAGyYBZ8 eWxl PSd (more content not included)... [facility] Provider [place] 08-17-2021 Provider Orders [id number] 08-16-2021 Consent Forms [id number] [facility] 06-25 Physical Therapy Note [id number] [place] 05-20-2021 Provider Orders [id number]on 04-06-2021 [facility] HqqcoyzdDQm1hQk+PG hlYWQ+XZ8UKVHeV74r nJKocC2NF5pJFN8RNH VRDZMHMF7DTP8pbKB8 STesS2XtfxDp XiwekLStVA53LTd0PG Y1tFgsHKdmjU8rtPFt O8d4IfPsXA45gL42AX bnXLPcAcG6KtQddhoo bWFy E4skAoVonNEgCff+PH RhYmxlIHdpZHRoPScx KEXrCyMnsTzrDK3mYe 9yZGVyLWNvbGxhcHNl OiBj t4xmHPQcIIdhGF6byJ ojF7LvzHL2CZMlk2d2 Cr61yQU+FGDiZLD3oO diYJlfy642EyYpm4qe IDM3 qLMpKArxEMM7W19va7 L0HXJzPLBmBFP0lBW3 uJ6mtAhdwtwzQ6IwoS PvTsU5ZXT2nTWyiK9y bGln bbyggW2ePgf+Q09ESU 4IXGGPVS0IJva4K7Da PjwvdHI+OI25VPZvJB 40vDGzyLFpo3ejhWn6 JzEw NMLvFVG9xGnhANfsl3 EcMTOpT62laHYyj7O9 IGNvbGxhcHNlOyBlbX S9tG8oKNsbsldwo3zh dzsn Axlrs7zrle63zD43Z5 6aTDalANTyOLB9QPSz VYQbeDpvgr0njH7nMu 8+KFwxn3arr7tfpRb4 IjIw FVVjfhKabYmhSER0h5 EyNi42X1AzcAido4Rh Jmg0pr29rFExx3D6oC T3DVpkMPQamN2yGMiu ZnQ6 IRDmKvBamR70zNAeUD inZx9wbAbhoShdVN2c ZBOyrvraEFWooX0yYN AurFApsPooTY2qCAPm bjtm p204HnYuLIU2XBPldG FiR0EolJ6tMpWuOHJr UCEtD3CdbXQyIBeuS5 44LOeyZuB9ZYZdygYp Y2Fs QLHgqJxhKyG3i4L2Rt 0Hz9FhsenkIOE5PUba QISpMqPdVqLzZtI5U4 IrEng0VEQvnKskMK5i J3Bh LTNowabtcywkcLW8YF GoOWYskV63sVFlUIul Di2en9E5m204ODNcVA LljU22Ii8pnLzlAJWt dCBU kU4iwtczm1ovduzxMw FgERXkVOh5MVx2FZZx jYznPzXfKUN3HvY6ZW E6dVPiiO4whHztgrgv dG9w Oyc+B99ivN8qTBU7KL V6wrjfCXFslkXsFP26 WT21B2YtKduplPVrhP U+FNIsuaPegCmgEU1m YmFj w4duh9LoGTyhV1RsHG XtVQxlFai8IDFkQNH8 sXK5pY8eAAZrKOmda6 W1dHE9E5XvbeXryh5i b2xs FYWjNGcuC79csLBwj9 I6OVNdcMX4ZSLluYae BqIcvU56Uaj+PGNvbG hry6UwEilef2udb1rm dGg9 IjMwJSIgdmFsaWduPS T9d1GwNc45I92aGHic ZHRoPSIxNSUiIHZhbG taoh0rmH5nHe1+PGNv bCB3 fNF7uM8wJNJrPwS2II nmY470AiIopOFfSsde g4tgs8ebxAf2OwHzGE GzxbAsbPmrFDH3q7Qi Lz48 I98vBNvwCWYeZUTkZX AxSAFjfRildu7mfD1x Ii8+YX1cj5gxwu14nP 48dHI+ACKdEBB7bPuu PSdw CQFdsP5zUUwwLwB2IP BwIoFbgY26cDKrLIws Hp3mnUgciXimEP3aHC Posyidv697RoLbj8td IDEw oWLjQUniJEF7N96zc9 Z0DJBbWSXyUSS9cBM8 yP8rhYlnhjzveZAotB sgdmVydGljYWwtYWxp Z246 IHRvcDsnPlBhdGllbn PsFpPfAQs3W5KaDil1 APHrbBwtII9zjTSoHJ xuBb6xrHzaeZhhJG6m NTBp dyuuz463XtJcu5rtXI RwuSZuMLihRLC5W98t s2N0DREhZBNeMAO4nL L7uF8dwWnsojxelGHo dDsg dmVydGljYWwtYWxpZ2 46IHRvcDsnPkJpcnRo ECMvwOD5ON18BJ59bM Xkg9V2oPN2Y5NhJXSr bmct sskkyCU5GFBwUKOdnH 11Ff3zfOkiTl0bIMTh VXK7DLKvqROhR0PjoU 4eEzHgCKQaZWLeR0Dr eHQt UWvaW817EXvyJwG0GB TqeyEcV1TaCYJsnQik EcU0j9F3Ui0LS9V1IE 90ED08dGTmm2P4nYC5 J3Bh SWSjqquiqvttiXL8ZE UdMKFssJ81Qt3mgPpt Wu2nOKZaQBW4IQHtyL ByF5FnhA8aNvQzFKQg MDAw V9FfsWMrBErqS279XD zmDzE6QHLgebTzQ3Xi EDLiaGglLcZ3x0H9Rj 3FZXz9NQ86JF08iTAn c3R5 zXC9P0KoZRKogyxxcv temVT9UJClAXIhmG38 Wh5ywEbyHc2iBROvYZ S9NNNwoRYbS3YzxC6n OiAj IMBgCXYeS9PhkVOuTP urP388QIrrQcV3OZPi bzZdQ7ZeTHBtiWjdZj K9b7Z9Mz9BEAGpHO29 IFR5 cBI7OB72VA97N7GkAf wvdGFibGU+PHRhYmxl IHdpZHRoPScxMDAlJy LnoIdpKU4jRb9xWHGi LWNv eRwohXWeYnKpr5olOU DjQLxgWY3bkCikN2Dv iCG8KEUtv7c6Vf25W5 6mD2OmdGI+PGNvbCB3 aWR0 aI2sHwEePtF3VCeuW3 07NbGtwDInOrfzk3zz p0mnwBh2CyE4OZIgja GzzLkxZES7x3CjBk90 Y29s IHdpZHRoPSIxNSUiIH CwdJnpbp7ktW6uFf8+ VKNxqAK1cES2pB4vWw AhSjF8GDvrL948TsWw cCIv Pusre3rdn1xkmKx2Ab IwJSIgdmFsaWduPSJ0 t0FcLb31K7CjbPjyp2 FmXop3lk23xFRom1V4 bGU9 U3WcQKDaobrwjZCweC wdBO3xFOSxmyhoQZXd bI2mUGKdW4o9XdHsBh S8CCnmH6PboqZ2PCVi cHQg PFlcTNT4B58eq9Y2ZE PvZKYwNLN2yYA6rI4v bGlnbjogbGVmdDsgdm GreTqtRKsqMHyuY408 IHRv jAsjGRZbwA3nJSKxoY LwyHttDM9mJRSivims Gi7YZz6HTmnuOaEQY2 eMKXTPBfO7V4QwKvt7 ZCBz gOobYT9cyNBnETnkUe 5joDxxuMovGF6sNAMm vapmDHHxoB3jBQRqfO UojLkvRG7yNCLjubss b250 DnAmVDZ6COEunALkE0 QzrW9yAjQeGSWeTJJm V5QfzFFoMCbxC248UM aqIbT6IANvdxCvP9Qt LWFs zIqjOvS8d6Q8Ae2zVh 4cPd8wSEo8MN20CV50 kVXpr2W8aYK8D6EjYQ UhdrznulqsaYB9VLZw MDUw xO93cBHqFZwfZc3jh0 X2y436GPXgGVVvsC09 Vt4hdWasPWHbuWMBeD 1pxlqby3pcfzujUqBw MDAw ANt7AHp9SMGsgRlyZo HhYBL8OlJ7HYE2jEAu mE6ssWxquettmO6uAo c+CmSzUXKcveF9M3Gk Pjx0 MHRrnDhhVO7waYJyEM ovQl0cyPbljMvjNF2x SZAfofcnJESsjP2sIG ZhwDDyfMxbYG2eLKRn bjtm h336DmDwHEX9DLAmyF DuZ4IhmK8jZtMpBWEu MQHiF2FuqDYtFZkhK9 17FVinMrE7AIUzmrTa Y2Fs THXguWtkIwC2o1F6Wx 5THT3EIPH4T8VlVuz7 QQHfoSaoRM8cwEMnLM asNj0tzNawbVynNO7k NTBp kxtwIORwjD3fBAOdgS HabEegNW3lNBKxvmcu i286EbFpHLU3HWZclO TaY7BllG4oFgPcSGIx MDAw X6EbxROyRNesC727ZZ sgXzG6FVMwvbNyN9Oc YFBrpBnzWeS4s4Q8Gz 8ALBD6geSvnxbxY9U4 cGF0 aWVudDwvdGQ+PC90cj 63I1FoSlemNwl9YVHo UZK9aSB8xL3tKEZsNM yup1T6lDI2S0PxpzHl ci1j f6coVUXoQTrpZ60prL Mxp7P2VWXjnKE8SLUy dZvkYoSmfN12Ddz+PG AdqQrcb7ElKzggc5dr d2lk iRe2LwJpAGNankGvcU mlEEU1c4AuEw48Z04w IHdpZHRoPSIzMCUiIH GrtXghlb4ynH7rRf7+ PGNv rBM2qOR4oZ5dFtKoMj D2CXpaO272GbCgtMLu Pxnrk7vma8kdsGr2Bl IwJSIgdmFsaWduPSJ0 b3Ai Fu38B5NdpAsay0NaZt a1cp91bANiv2V2tRE8 K3MfPYXlweixlCGseU ndYW3hHUWpyksmAILs aW5n FOSjQ5a4XtKwEqM0JB ryG7ZtjzA3OULkrPWp QJJtkWSZuV6ddkiiu0 xvcjogIzAwMDAwMDt0 ZXh0 PCGigTwgWtZlFJW3Mf I5YMX2zDYwsW7utNlx yphkxK8gUgs+UGh5c2 pxzDNlIT7ltAC0NE44 ZD48 oUMvb0R8aKI5H7CdBO DfxfjwpznpeBW8OEQj DRBicA53Vu5leFzdHk 1pVNCkPTQ6EAAtsHLf O2Nv hZ0qUgAnOGZzBPJuP5 MyrBIyLKitJ962AGlh FrB3UAIxpuMwZ7MzYG MrqBbzXgO1m1Z6Ay6B SU46 BU53GX49qKVjo0N1qZ X4A3CfQGQezhxnbcfq uSH6PGYwDXEguF67Oi 5phNchSr4lSREmKJW2 IFRp nCCuD2PzsW8cTfDvLR PxFJBnF5YqcDCyXAyj J526QMbcUqI1RYXhzb CfB4YfGSAgrJkkTeN9 b3A7 Qa5ANi34FR56IC03lN Zqk8Q4oXW2N5IzDGJv cfcqmebrdNO2QVGpYD MaiH05Zv6miFuzIj9t ZCAx RZK2LGEinAQzA8NhiK 9cNpJcOTUfYPYbD1Ko aMAuIVteX940HUxiPb M8VLEaxnCdG5NhMJXt aWdu YwV8n1C4Kc2BYEfafb s3X6GtZvivuUU+PC90 MYHtAV48wAPpuXYls1 zqeYe9BuCsPAFkPUW9 eWxl PSd (more content not included)... [facility] Rad - MRI Reporton 1 Rad - MRI Report [id number] Vital Signs Date Time Vital Sign Value Performing Clinician Facility 12-17-2024 13:39-0400 Body mass index (BMI) [Ratio] 29.73 kg/m2 [employer] Work Phone: [facility] 12-17-2024 13:39-0400 Body weight 88.68 kg [employer] Work Phone: [facility] 12-17-2024 13:39-0400 Diastolic blood pressure 62 mm[Hg] [employer] Work Phone: [facility] 12-17-2024 13:39-0400 Systolic blood pressure 110 mm[Hg] [employer] Work Phone: [facility] 12-25-2023 12:30-0400 Body height 171.45 cm CLIENT EVALUATOR [employer] Work Phone: [facility] 12-25-2023 12:30-0400 Body mass index (BMI) [Ratio] 31.6 kg/m2 CLIENT EVALUATOR [employer] Work Phone: [facility] 12-25-2023 12:30-0400 Body temperature 97.8 [degF] CLIENT EVALUATOR [employer] Work Phone: [facility] 12-25-2023 12:30-0400 Body weight 92.98 kg CLIENT EVALUATOR [employer] Work Phone: [facility] 12-25-2023 12:30-0400 Diastolic blood pressure 72 mm[Hg] CLIENT EVALUATOR Nelida Easterwood Work Phone: [facility] 12-25-2023 12:30-0400 Heart rate 69 /min CLIENT EVALUATOR [employer] Work Phone: [facility] 12-25-2023 12:30-0400 Respiratory rate 20 /min CLIENT EVALUATOR [employer]elida [employer] Work Phone: [facility] 12-25-2023 12:30-0400 SaO2% (BldA) [Mass fraction] 99 % CLIENT EVALUATORYamilka Lunaa [employer] Work Phone: [facility] 12-25-2023 12:30-0400 Systolic blood pressure 116 mm[Hg] CLIENT EVALUATOR [employer]elida [employer] Work Phone: [facility] 11-28-2023 08:58-0400 Body height 171.45 cm [facility] 11-28-2023 08:58-0400 Body mass index (BMI) [Ratio] 31.6 kg/m2 [facility] 11-28-2023 08:58-0400 Body weight 92.98 kg [facility] 09-19-2023 11:00-0400 Body height 171.45 cm [facility] 09-19-2023 11:00-0400 Body mass index (BMI) [Ratio] 31.6 kg/m2 [facility] 09-19-2023 11:00-0400 Body temperature 98 [degF] [facility] 09-19-2023 11:00-0400 Body weight 92.98 kg [facility] 09-19-2023 11:00-0400 Diastolic blood pressure 76 mm[Hg] [facility] 09-19-2023 11:00-0400 Heart rate 80 /min [facility] 09-19-2023 11:00-0400 Respiratory rate 20 /min [facility] 09-19-2023 11:00-0400 SaO2% (BldA) [Mass fraction] 98 % [facility] 09-19-2023 11:00-0400 Systolic blood pressure 118 mm[Hg] [facility] 09-05-2023 09:42-0400 Body height 172.7 cm Ty CRISTINA-C Work Phone: [facility] [employer] [facility] 09-05-2023 09:42-0400 Body mass index (BMI) [Ratio] 30.79 kg/m2 Ty Stratton PA-C Work Phone: [employer] 09-05-2023 09:42-0400 Body weight 91.85 kg Ty Stratton PA-C Work Phone: [facility] [employer] 09-05-2023 09:42-0400 Diastolic blood pressure 77 mm[Hg] Ty CRISTINA-C Work Phone: [employer] 09-05-2023 09:42-0400 Heart rate 73 /min Ty Stratton PA-C Work Phone: [employer] 09-05-2023 09:42-0400 Systolic blood pressure 116 mm[Hg] Ty Stratton PA-C Work Phone: [employer] 06-06-2023 17:00-0500 Body height 171.45 cm [employer] Other [employer] Other 05-30-2023 08:00-0500 Body height 171.45 cm [employer] Other [facility] Other 05-30-2023 08:00-0500 Body mass index (BMI) [Ratio] 33.48 kg/m2 [employer] Other [facility] Other 05-30-2023 08:00-0500 Body temperature 98.2 [degF] Nelida Easterwood Other [facility] Other 05-30-2023 08:00-0500 Body weight 98.43 kg Nelida Easterwood Other [employer] Other 05-30-2023 08:00-0500 Diastolic blood pressure 80 mm[Hg] Nelida Easterwood Other [facility] Other 05-30-2023 08:00-0500 Respiratory rate 20 /min Nelida Easterwood Other [facility] Other 05-30-2023 08:00-0500 SaO2% (BldA) [Mass fraction] 99 % Nelida Easterwood Other [facility] Other 05-30-2023 08:00-0500 Systolic blood pressure 118 mm[Hg] Nelida Easterwood Other [facility] Other 03-05-2023 10:30-0400 Body height 171.45 cm Nelida Bonerwood Other [facility] Other 03-05-2023 10:30-0400 Body mass index (BMI) [Ratio] 33.33 kg/m2 Nelida Easterwood Other [facility] Other 03-05-2023 10:30-0400 Body temperature 97 [degF] Nelida Easterwood Other [facility] Other 03-05-2023 10:30-0400 Body weight 97.98 kg Nelida Easterwood Other [facility] Other 03-05-2023 10:30-0400 Diastolic blood pressure 60 mm[Hg] Nelida Easterwood Other [facility] Other 03-05-2023 10:30-0400 Respiratory rate 20 /min Nelida Easterwood Other [facility] Other 03-05-2023 10:30-0400 SaO2% (BldA) [Mass fraction] 99 % Nleida Easterwood Other [facility] Other 03-05-2023 10:30-0400 Systolic blood pressure 112 mm[Hg] Nelida Easterwood Other [facility] Other 02-21-2023 11:00-0400 Body height 171.45 cm Nelida Easterwood Other [employer] Other 02-21-2023 11:00-0400 Body mass index (BMI) [Ratio] 33.48 kg/m2 Nelida Easterwood Other [facility] Other 02-21-2023 11:00-0400 Body temperature 97.9 [degF] Nelida Easterwood Other [facility] Other 02-21-2023 11:00-0400 Body weight 98.43 kg Nelida Easterwood Other [facility] Other 02-21-2023 11:00-0400 Diastolic blood pressure 68 mm[Hg] Nelida Easterwood Other [facility] Other 02-21-2023 11:00-0400 Respiratory rate 20 /min Nelida Easterwood Other [facility] Other 02-21-2023 11:00-0400 SaO2% (BldA) [Mass fraction] 98 % Nelida Mckenzie Other [facility] Other 02-21-2023 11:00-0400 Systolic blood pressure 112 mm[Hg] Nelida Mckenzie Other [facility] Other Encounters Encounter Date Encounter Type Care Provider Facility Start: 01-14-2025 End: 01-14-2025 Bamboo flowsheet Junito Angel DO Work Phone: [facility] Start: 01-14-2025 End: 01-14-2025 Bamboo flowsheet Junito Angel DO Work Phone: [facility] Start: 12-17-2024 End: 12-17-2024 Bamboo flowsheet Junito Angel DO Work Phone: [facility] Start: 12-17-2024 End: 12-17-2024 Bamboo flowsheet Junito Angel DO Work Phone: [facility] Start: 12-17-2024 End: 12-17-2024 flow sheet Junito Angel DO Work Phone: [facility] Comment on above: 11 weeks gestation o f ([facility]); First trimester ([facility]); Nausea and vomiting in ([facility]); Gastroesophageal reflux disease with esophagitis, unspecified whether hemorrhage; Meconium aspiration in child of prior , currently , unspecified trimester ([facility]) Start: 12-17-2024 End: 12-17-2024 ambulatory JUNITO ANGEL Not Available Start: 12-10-2024 End: 12-10-2024 Clinisync Result Encounter Junito Angel DO Work Phone: [facility] External Department Unsolicited Start: 12-10-2024 End: 12-10-2024 Clinisync Result Encounter Junito Angel DO Work Phone: [facility] External Department Unsolicited Start: 12-05-2024 End: 12-05-2024 Office outpatient visit 5 minutes [facility] Angel Nurse [facility] Comment on above: GA: [id number] Start: 12-05-2024 End: 12-05-2024 ambulatory MAURICE RENEE Not Available Start: 07-03-2024 End: 07-04-2024 Refill Ty Stratton PA-C Work Phone: [facility] Comment on above: Migraine without aur a and without status migrainosus, not intractable Start: 01-23-2024 End: 01-23-2024 ambulatory MAURICE THELMA Not Available Start: 12-25-2023 End: 12-25-2023 ambulatory YANELI Farias Magaly Work Phone: [facility] Work Phone: Start: 12-25-2023 End: 12-25-2023 Patient encounter procedure YANELI Mendoza Magaly Work Phone: [facility] [place] Work Phone: Start: 12-17-2023 Non-patient / Non-visit YANELI Mendoza Magaly Work Phone: [facility] [place] Work Phone: Start: 12-05-2023 End: 12-05-2023 ambulatory YANELI Farias Magaly Work Phone: [facility] Work Phone: Start: 12-05-2023 End: 12-05-2023 Departed Referred YANELI Mendoza Magaly Work Phone: [facility] Start: 11-28-2023 End: 11-28-2023 ambulatory [facility] Work Phone: Start: 11-28-2023 End: 11-28-2023 Patient encounter procedure [facility] Gastroenterology Work Phone: Start: 09-19-2023 End: 09-19-2023 ambulatory [facility] Work Phone: Start: 09-19-2023 End: 09-19-2023 Patient encounter procedure [facility] Work Phone: Start: 09-05-2023 End: 09-05-2023 ambulatory TY STRATTON [facility] Start: 09-05-2023 End: 09-05-2023 Office outpatient visit 25 minutes Ty Stratton PA-C Work Phone: [facility] Comment on above: Migraine without aur a and without status migrainosus, not intractable (Primary Dx); Vestibular migraine; Pineal gland cyst; Hx of concussion; Daytime somnolence Start: 09-03-2023 Non-patient / Non-visit [facility] [employer] Work Phone: Start: 07-16-2023 End: 07-16-2023 ambulatory Nelida Easterwood Other [facility] Other Start: 07-16-2023 [facility] WEENING OFF QULIPTA Start: 07-09-2023 Patient encounter procedure [facility]- Start: 06-06-2023 End: 06-06-2023 ambulatory Nelida Easterwood Other [facility] Other Start: 06-06-2023 PF [facility] Start: 06-06-2023 Telephone encounter Nel[facility] Start: 05-30-2023 End: 05-30-2023 ambulatory Nelida Easterwood Other [facility] Other Start: 05-30-2023 Office outpatient visit 25 minutes Nelida [facility] Start: 05-25-2023 End: 05-25-2023 ambulatory Nelida Mckenzie Other [facility] Other Start: 05-25-2023 Telephone encounter Nelida Mckenzie [facility] Start: 05-03-2023 End: 05-03-2023 ambulatory Nelida Mckenzie Other [facility] Other Start: 05-03-2023 Telephone encounter Nelida Mckenzie [facility] Start: 03-05-2023 End: 03-05-2023 ambulatory Nelida Mckenzie Other [facility] Other Start: 03-05-2023 Office outpatient visit 25 minutes Nelida McCar[facility]as [facility] Start: 02-21-2023 End: 02-21-2023 ambulatory Nelida Mckenzie Other [facility] Other Start: 02-21-2023 Office outpatient visit 40 minutes Nelida [facility] Start: 02-21-2023 Telephone encounter Nelida Mckenzie [facility] Start: 11-01-2022 End: 11-01-[address] JUNITO ORTIZ . Facility:[facility] Start: 09-06-2022 End: 09-06-[address] JUNITO ORTIZ . Facility:[facility] Start: 08-26-2022 End: 08-27-[address] JUNITO ORTIZ . Facility:[facility] Start: 08-02-2022 End: 08-03-[address] JUNITO ORTIZ . Facility:[facility] Start: 07-12-2022 End: 07-13-[address] GIA ROMERO Facility: Procedures Date Procedure Procedure Detail Performing Clinician Start: 12-17-2024 Urnls dip stick/tabl et rgnt non-auto w/o micrscp Junito Ortiz DO Work Phone: Start: 12-10-2024 ALL CBC WITH AUTO DIFF Junito Ortiz DO Work Phone: Start: 12-05-2024 End: 12-05-2024 Urnls dip stick/tablet rgnt non-auto w/o micrscp Junito Ortiz DO Work Phone: Start: 09-05-2023 Follow-up visit Follow-up TY STRATTON Start: 05-23-2023 Adult depression screening assessment Viviane Jamison Plan of Treatment Date Care Activity Detail Author Start: 02-23-2025 [facility] Start: 01-14-2025 End: 01-14-2025 Patient encounter procedure 01/14/2025 2:40 PM EDT Routine [facility] [address] [address] Junito Ortiz, DO [address] [place], [place] [id number] [facility] Start: 12-17-2024 End: 12-17-2024 Patient encounter procedure [facility] Comment on above: Arrived Start: 12-05-2024 End: 12-05-2025 ABO/Rh ABO/Rh Lab Routine Missed menses , unspecified gestational age ([facility]) Expected: 12/05/2024 (Approximate), Expires: 12/05/2025 [facility] Comment on above: Expected: 12/05/2024 (Approximate), Expires: 12/05/2025 Start: 12-05-2024 End: 12-05-2025 Blood type and Indirect antibody screen panel - Blood Type and screen Lab Routine Missed menses , unspecified gestational age [facility] Expected: 12/05/2024 (Approximate), Expires: 12/05/2025 [facility] Work Phone: Comment on above: Expected: 12/05/2024 (Approximate), Expires: 12/05/2025 Start: 12-05-2024 End: 12-05-2025 Drugs of abuse panel - Urine by Screen method Rapid drug screen, urine Lab Routine , unspecified gestational age ([facility]) Encounter for supervision of normal first in first trimester ([facility]) Expected: 12/05/2024 (Approximate), Expires: 12/05/2025 [facility] Comment on above: Expected: 12/05/2024 (Approximate), Expires: 12/05/2025 Start: 12-05-2024 End: 12-05-2025 Transferrin [Mass/volume] in Serum or Plasma Transferrin Lab Routine Dizzy Lightheaded Expected: 12/05/2024 (Approximate), Expires: 12/05/2025 [facility] Comment on above: Expected: 12/05/2024 (Approximate), Expires: 12/05/2025 Start: 09-04-2024 Adult BMI Screening Adult BMI Screen ing [facility] Start: 09-04-2024 Tobacco Screening Tobacco Screening [facility] Start: 05-23-2024 Adult BMI Screening Adult BMI Screen ing [facility] Start: 05-23-2024 Depression Screening Depression Scre ening [facility] Start: 05-23-2024 Tobacco Screening Tobacco Screening [facility] Start: 02-24-2024 Influenza vaccination Influenza Vacc ine [facility] Start: 12-12-2023 End: 12-12-2023 Patient encounter procedure 12/12/2023 9:00 AM EDT [facility] [address] [facility] [address] Ty Stratton, PAAzucenaC [address] [place] [address] [facility] Start: 12-06-2023 End: 09-04-2024 MR Brain WO contrast MR brain without contrast Imaging Routine Migraine without aura and without status migrainosus, not intractable Vestibular migraine Pineal gland cyst Expected: 12/06/2023 (Approximate), Expires: 09/04/2024 [facility] Work Phone: Comment on above: Expected: 12/06/2023 (Approximate), Expires: 09/04/2024 Start: 10-31-2023 End: 10-31-2023 Patient encounter procedure 10/31/2023 8:45 AM EDT Office Visit [facility] [address] [place] [address] Jani Mir MD [address] [place] [address] [facility] Start: 10-24-2023 End: 10-24-2023 Patient encounter procedure 10/24/2023 10:00 AM EDT Office Visit [facility] [address] [id number] Megan Lopez, CLIENT EVALUATOR-[employer] [address] [facility] [address] [place] [address] [facility] Start: 09-05-2023 End: 09-05-2023 Patient encounter procedure 09/05/2023 9:30 AM EDT Office Visit [facility] [address] [place] [id number] Ty Stratton, PA-C [address] [place] [address] [facility] Start: 08-01-2023 End: 08-01-2023 Patient encounter procedure 08/01/2023 10:30 AM EST Office Visit [facility] [address] [place] [address] Jani Mir MD [address] [place] [address] [facility] Start: 02-23-2023 Influenza vaccination Influenza Vacc ine [facility] Start: 12-19-2016 Screening for malignant neoplasm of cervix Pap Smear [facility] Start: 12-19-2014 DTaP,Tdap and Td Vaccines (1 - Tdap) DTaP,Tdap and Td Vaccines (1 - Tdap) [facility] Start: 12-19-2013 Adult BMI Follow Up Plan Adult BMI Follow Up Plan [facility] Bacteria identified in Urine by Culture Urine culture Microbiology Routine Missed menses Ordered: 12/05/2024 [facility] Comment on above: Ordered: 12/05/2024 CBC W Auto Differential panel - Blood CBC and differential Lab Routine Missed menses , unspecified gestational age ([facility]) Ordered: 12/05/2024 [facility] Comment on above: Ordered: 12/05/2024 Ferritin [Mass/volum e] in Serum or Plasma Ferritin Lab Routine Dizzy Lightheaded Ordered: 12/05/2024 [facility] Comment on above: Ordered: 12/05/2024 Hemoglobin A1c/Hemoglobin.total in Blood Hemoglobin A1c Lab Routine Missed menses , unspecified gestational age ([facility]) Ordered: 12/05/2024 [facility] Comment on above: Ordered: 12/05/2024 Hepatitis B virus surface Ag [Presence] in Serum or Plasma by Immunoassay Hepatitis B surface antigen Lab Routine Missed menses , unspecified gestational age ([facility]) Ordered: 12/05/2024 [facility] Comment on above: Ordered: 12/05/2024 Hepatitis C virus Ab [Presence] in Serum or Plasma by Immunoassay Hepatitis C antibody Lab Routine Missed menses , unspecified gestational age ([facility]) Ordered: 12/05/2024 [facility] Comment on above: Ordered: 12/05/2024 HIV-1/HIV-2 antigen/antibody combination immunoassay HIV-1 and HIV-2 antibodies Lab Routine Missed menses , unspecified gestational age ([facility]) Ordered: 12/05/2024 [facility] Comment on above: Ordered: 12/05/2024 Reagin Ab [Presence] in Serum by RPR RPR Lab Routine Missed menses , unspecified gestational age ([facility]) Ordered: 12/05/2024 [facility] Comment on above: Ordered: 12/05/2024 Rubella antibody, IgG Rubella an tibody, IgG Lab Routine Missed menses , unspecified gestational age ([facility]) Ordered: 12/05/2024 [facility] Comment on above: Ordered: 12/05/2024 Immunizations Immunization Date Immunization Notes Care Provider Federico boo 02-05-2020 tetanus and diphtheria toxoids, adsorbed, preservative free, for adult use (5 Lf of tetanus toxoid and 2 Lf of diphtheria toxoid) [facility] 02-05-2020 tetanus toxoid, reduced diphtheria toxoid, and acellular pertussis vaccine, adsorbed Nelida Mckenzie Other [employer] Other Payers Date Payer Category Payer Self-pay [id number] 2023 Managed Care Other (unspecified) [facility] [id number] 2023 Private Health Insurance [id number] 2020 [facility] Health [facility] [id number] 1995 Unknown [id number] 593 1995 Unknown [id number]. 593 1995 Unknown [id number]. 593 1995 Unknown [id number] [id number]. 593 1995 Unknown [id number] [id number]. 593 1995 Unknown [id number] [id number]. 1286 1995 Unknown [id number] [id number]. 1259 1995 Unknown [id number] [id number]. 1259 1995 Unknown [id number] [id number]. 1259 1995 Unknown [id number] [id number]. 1259 1959 Private Health Insurance [id number] Private Health Insurance [facility] [id number] Unknown [id number] 531 Social History Date Type Detail Facility Start: 12-19-2019 End: 01-23-2024 Sex Assigned At [facility] [employer] Other Start: 09-03-2023 End: 11-07-2023 Tobacco smoking status NHIS Never smoked tobacco (finding) [facility] Start: 1995 Sex Assigned At Female F [facility] Start: 03-21-2023 End: 11-07-2023 Tobacco use and exposure Smokeless tobacco non-user [facility] Start: 09-05-2023 End: 12-05-2024 Alcoholic beverage intake Current drinker of alcohol (finding) [facility] Start: 12-19-2019 End: 01-23-2024 History of Social function [facility] How often to you hav e a drink containing alcohol? Never [facility] Average Number of Drinks Not on file [facility] Start: 03-21-2023 Alcohol Comment social [facility] Start: 1995 Sex assigned at Not on file [facility] Start: 12-17-2019 Sex Female (finding) [facility] Start: 11-07-2023 Alcohol Comment One drink per month [facility] Start: 10-12-2024 [facility] Clinical Notes 02-04-2020 to 12-17-2024 Saumya Simmons, STATEMENT CLERKS MANAGER - 12/17/2024 1:00 PM EDTErspikegreer Castro, STATEMENT CLERKS MANAGER - 12/05/2024 10:00 AM EDT Note Date & Type Note Facility 12-17-2024 History of Presen t illness Narrative Reason for Appointment: Patient ID: Kat Bob is a 28 y.o. female who presents for Routine Visit Patient presents today for Return OB appointment. MEDICATIONS Current Outpatient Medications Medication Instructions Doxylamine Succinate, Sleep, (UNISOM PO) Take by mouth famotidine (Pepcid) 10 MG tablet Take by mouth magnesium 100 MG tablet ondansetron (ZOFRAN) 4 mg, Oral, Every 6 hours PRN, Take 1 tablet by mouth every 6 hours as needed for nausea. pantoprazole (PROTONIX) 40 mg, Oral, Daily before breakfast, Do not crush, chew, or split. Probiotic Product (PROBIOTIC ADVANCED PO) Probiotic pyridoxine (VITAMIN B-6) 25 mg, Daily ALLERGIES Allergies Allergen Reactions Pollen Extract Other Reaction(s): Unknown Reaction PROBLEMS Active Ambulatory Problems Diagnosis Date Noted Positive urine test ([facility]) 12/03/2024 Resolved Ambulatory Problems Diagnosis Date Noted No Resolved Ambulatory Problems Past Medical History: Diagnosis Date Anxiety 2020 Head injury 2001 Migraine 2021 Urinary tract infection 2021 Uterine prolapse 2019 HISTORY PAST MEDICAL HISTORY SOCIAL HISTORY Past Medical History: Diagnosis Date Anxiety 2020 Head injury 2002 Migraine 2021 Urinary tract infection 2021 Uterine prolapse 2019 Social History Tobacco Use Smoking status: Never Smokeless tobacco: Never Substance Use Topics Alcohol use: Yes Comment: One drink per month Drug use: Never FAMILY HISTORY Family History Problem Relation Name Age of Onset Cancer Mother [place] Diabetes Maternal Grandfather Don Stroke Maternal Grandfather Don Breast cancer Paternal Grandmother Ivana Alzheimer's disease Paternal Grandmother Ivana Breast cancer Father's Sister Ivory Cancer Sister Yandy Cancer Mother's Brother Pat Cancer Mother's Brother Partha Diabetes Mother's Brother Ramses SURGICAL HISTORY No past surgical history on file. REVIEW OF SYSTEMS Review of Systems: Review of Systems Constitutional: Negative. HENT: Negative. Eyes: Negative. Respiratory: Negative. Cardiovascular: Negative. Gastrointestinal: Negative. Genitourinary: Negative. Musculoskeletal: Negative. Skin: Negative. Neurological: Negative. All other systems reviewed and are negative. Hematological: Negative. Endocrine: Negative. Allergic/Immunologic: Negative. OBJECTIVE Objective: Physical Exam Constitutional: Appearance: Normal appearance. She is well-developed. Cardiovascular: Rate and Rhythm: Normal rate and regular rhythm. Pulmonary: Effort: Pulmonary effort is normal. Breath sounds: Normal breath sounds. Abdominal: General: Bowel sounds are normal. There is no distension. Palpations: Abdomen is soft. Tenderness: There is no abdominal tenderness. There is no guarding or rebound. Musculoskeletal: General: No swelling. Normal range of motion. Right lower leg: No edema. Left lower leg: No edema. Neurological: Mental Status: She is alert and oriented to person, place, and time. Skin: General: Skin is warm and dry. Psychiatric: Mood and Affect: Mood normal. Behavior: Behavior normal. Vitals and nursing note reviewed. Exam conducted with a stunner and shackler present. Vitals: Estimated body mass index is 29.73 kg/m as calculated from the following: Height as of 01/23/24: 5' 8 . Weight as of this encounter: 195 lb 8 oz. BP: 110/62 Patient's last menstrual period was 09/28/2024. ASSESSMENT & PLAN ICD-10-CM 1. 11 weeks gestation of ([facility]) Z3A.11 POCT urinalysis dipstick manually resulted 2. First trimester ([facility]) Z34.91 3. Nausea and vomiting in ([facility]) O21.9 4. Gastroesophageal reflux disease with esophagitis, unspecified whether hemorrhage K21.00 pantoprazole (Protonix) 40 MG EC tablet 5. Meconium aspiration in child of prior , currently , unspecified trimester ([facility]) O09.299 New OB: Patient presents today for 1st time obstetrics appointment with provider. Patient is currently 11w3d . Patients history has been reviewed in great detail including any potential risks. Patient stated she currently has complaints of not feeling well nauseated and vomiting. Pt has zofran, reglan, and rx for protonix faxed to pharmacy. Pt has tried and failed pepcid. Expectations throughout regarding labs, ultrasounds, and appointments have been discussed with the patient in detail. It was reiterated that the patient is to drink 6-8 glasses of water a day, eat 6 small meals a day, do not consume raw or undercooked meat, and stay away from [facility]. Patient has been consulted regarding any further do's and don'ts of . Patient voiced understanding and all questions and concerns were answered. Orders Placed This Encounter Procedures POCT urinalysis dipstick manually resulted Follow Up: Patient is to return in 4 weeks for routine OB appointment. Documented by Saumya Simmons LPN on behalf of: Junito Ortiz DO documented in this encounter [facility] 12-05-2024 History of Presen t illness Narrative Reason for Appointment: Patient ID: Kat Bob is a 28 y.o. female who presents for Amenorrhea Patient presents today for a Nurse OB Intake appointment. Patient is 9w5d with a Estimated Date of Delivery: 07/05/25 OB History Para Term AB Living 1 0 0 SAB IAB Ectopic Multiple Live Births # Outcome Date GA Lbr Leonard/2nd Weight Sex Type Anes PTL Lv 1 Current Current Medications: has a current medication list which includes the following prescription(s): fexofenadine, magnesium, metoclopramide, ondansetron, and ondansetron odt. Medical History: Active Ambulatory Problems Diagnosis Date Noted Positive urine test ([facility]) 12/03/2024 Resolved Ambulatory Problems Diagnosis Date Noted No Resolved Ambulatory Problems Past Medical History: Diagnosis Date Anxiety 2020 Head injury 2002 Migraine 2021 Urinary tract infection 2021 Uterine prolapse 2019 Family History Problem Relation Name Age of Onset Cancer Mother [place] Diabetes Maternal Grandfather Don Stroke Maternal Grandfather Don Breast cancer Paternal Grandmother Ivana Alzheimer's disease Paternal Grandmother Ivana Breast cancer Father's Sister Ivory Cancer Sister Yandy Cancer Mother's Brother Pat Cancer Mother's Brother Partha Diabetes Mother's Brother Ramses Social History Tobacco Use Smoking status: Never Smokeless tobacco: Never Substance Use Topics Alcohol use: Yes Comment: One drink per month Drug use: Never History reviewed. No pertinent surgical history. Allergies Allergen Reactions Pollen Extract Other Reaction(s): Unknown Reaction Vitals: Estimated body mass index is 31.78 kg/m as calculated from the following: Height as of 01/23/24: 5' 8 . Weight as of 01/23/24: 209 lb. BP: Patient's last menstrual period was 09/28/2024. Assessment/Plan Diagnoses and all orders for this visit: Missed menses - Type and screen; Future - ABO/Rh; Future - CBC and differential - Hemoglobin A1c - RPR - Rubella antibody, IgG - Hepatitis B surface antigen - Hepatitis C antibody - HIV-1 and HIV-2 antibodies - Urine culture - POCT , urine manually resulted - POCT urinalysis dipstick manually resulted , unspecified gestational age ([facility]) - Type and screen; Future - ABO/Rh; Future - CBC and differential - Hemoglobin A1c - RPR - Rubella antibody, IgG - Hepatitis B surface antigen - Hepatitis C antibody - HIV-1 and HIV-2 antibodies - Rapid drug screen, urine; Future Encounter for supervision of normal first in first trimester ([facility]) - Rapid drug screen, urine; Future Dizzy - Transferrin; Future - Ferritin Lightheaded - Transferrin; Future - Ferritin Nurse Note: OB Intake: Patient presents today for first OB visit. Patients history has been reviewed in great detail including any potential risks. Patient signed consent forms and patient desires testing in both trimesters. Patient currently has no complaints and has been advised to drink 6-8 glasses of water a day, eat no raw or undercooked meat, and stay away from [facility]. Patient has also been advised to not change litter boxes and eat 6 small meals a day. Patient has been consulted regarding the do's and don'ts of . Patient was given labs and all questions and concerns were answered. Follow Up: Patient is to return in 4 weeks for routine OB appointment. Follow Up: Patient is to have labs drawn at directed and return to office for initial OB appointment with provider. Patient may call office as needed with any concerns or questions. Nurse Visit Completed by: Carissa Castro LPN documented in this encounter [facility] 11-28-2023 Evaluation note Authored November 28, 2023 9:29a m Patient positive for intermi ttent nausea occurring once or twice monthly patient does note slight appetite changes however this is minimal patient did report periods of weight loss however patient has maintained her weight for many months at this point. Patient is negative for hematemesis, abdominal pain and family history of esophageal and gastric cancer. [facility] Work Phone: [phone] 272-691003-13-2024 History of Present illness Narrative* Ty Stratton PA-C - 09/05/2023 9:30 AM EDT [facility] Office Note 09/05/2023 8:59 AM Patient info: Kat Bob is a 27 y.o. female Account No.: [id number] Acct: : 1995 PCP: IVON Wadsworth Chief Complaint: Patient, 27 year old female, presents for follow up Neurological evaluation regarding migraines. Last seen in the office on 05/23/23 Kat is present in the office today by herself. Interval Hx: At last office visit (05/23/23) started Qulipta 60 mg daily for migraine prevention and weaned off Propranolol. Started Rizatriptan 5 mg +/- Zofran ODT 4 mg for symptomatic migraine relief Recommended a repeat Brain MRI with and without contrast in 1 year (March,) Kat tolerated Qulipta well, but she experienced the same amount of PEREZ's while taking it. It has been discontinued since late June/early July (2023). Most of her PEREZ's are present upon waking, with a small portion of them starting during the daytime. She states the more severe PEREZ's start during the daytime hours, increasing in intensity over a 'short' period of time. Rizatriptan 5 mg for abortive/symptomatic migraine relief has been well tolerated and partially effective for her. Sleep: - Average amt: 8-hilda hrs - Snoring: not that she is aware of - Apneic Spells: none witnessed - Nocturnal Awakenings: not typically - Energy Level: Low - BMI: 32.69 kg/m2 Current preventative PEREZ/migraine medication: Preventative med/s previously tried include: Propranolol, Qulipta, Magnesium Oxide Preventative med/s not indicated include: Duloxetine/Venlafaxine, Valproic Acid Current abortive/symptomatic relief PEREZ/migraine medication: Rizatriptan Abortive/Symptomatic relief med/s previously tried include: Ibuprofen, Naproxen Abortive/Symptomatic relief med/s not indicated include: Previous Studies: 04/11/23: Brain MRI with and without contrast - No acute intracranial changes - It shows the suggestion of a 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 CT Head recently completed at [facility] (February,) - reportedly was normal but results and images are unavailable for personal review at this time Prior Hx: Kat complains of dizziness and frequent headaches. Dizziness is said to only be present when she gets a headache. Headache hx: Onset of PEREZ's was approximately 1 year ago (Fall of 2021; age 26). PEREZ Characteristics: - Frequency: averages 7-15 per month - Timing: onset is typically upon waking - Duration: entire day - Location: bi-frontal, retro-orbital - Quality: pressure, sharp - Intensity: ranges from 2-6/10 - Aura: (-) - Associated sxs: dizziness (head floating/rocking sensation), mild photophobia, mild phonophobia - Complicated sxs: No associated LOC, confusional episodes, aphasia, dysarthria, paresthesias, or focal/lateralized weakness. Contributing Factors: (+) hx of significant head injury/trauma: remote single concussion at age 6 (-) hx of BANKING PIN ADJUSTER infection: (-) hx of stroke/cerebrovascular malformation: (-) hx of intracranial mass/tumor/cyst/malformation: (+) hx of anxiety/depression/mood disorder: hx of anxiety/depression Family Hx: (-) known family member/s with hx of recurrent PEREZ/migraines: (-) known family member/s with hx of cerebral aneurysm: (-) known family member/s with hx of intracranial mass/tumor/cyst: Kat denies any recent change in gait or recurrent falls. She denies a change in vision or hearing. She rarely experiences tinnitus. She does wear prescriptive eye lenses; most recent eye exam was in September of this year (2022). Follow up 05/23/23 Brain MRI with and without contrast was completed on 04/11/23. 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 Images reviewed with patient during today's office visit. An EKG was completed on 04/13/23, showing a NSR at 78 BPM, with a normal QTc of 412. At last office visit (03/21/23), we started Propranolol LA 60 mg HS and continued Magnesium Oxide 250 mg daily for migraine prevention. Kat has been tolerating Propranolol LA well, but there has been no change in migraine frequency thus far. She reports 11 migraines over the past month; baseline was 7-15 per month. Of note, her HR today is documented at 60 BPM and she states it has been hovering between 57 and 62(BPM) while at rest. She takes Ibuprofen 600-800 mg or Aleve (Naproxen) 440-660 mg +/- Zofran ODT 4 mg for symptomatic migraine relief with varying effectiveness. Kat takes Wellbutrin XL in treatment of anxiety, prescribed by her PCP. She does not follow with a behavioral counselor. Past Medical Hx: See EMR Surgical Hx: See EMR Allergies: See EMR Review of Systems: Constitutional: Negative for fever, chills, sweats, or unintentional weight loss Eyes: Negative HENT: Negative Cardiovascular: Negative for chest pain and palpitations Respiratory: Negative for cough and shortness of breath Gastrointestinal: - nausea Genitourinary: Negative for dysuria, urgency, frequency, or hematuria Musculoskeletal: Negative for myalgias or joint swelling Skin: Negative for skin rash Neurological: - as noted in the HPI Psychiatric/Behavioral: - anxiety Endocrine: Negative Hem/Onc: Negative Allergy/immunology: Negative Vitals: BP: 116/77 HR: 73 Weight: 91.9 kg Physical Exam: General: well groomed, pleasant, appears stated age Neurological Exam: The patient is awake, alert, and attentive Speech and language are normal Normal affect, with normal orientation and cognition EOMI, PERRL, No gross visual field deficits Face is symmetric, Tongue protrudes midline Palate rises symmetrically with uvula midline Shoulder shrug is strong bilaterally Nose to finger testing is without dysmetria Upper Extremity Drift is (-) Fine motor skills are approximately equal in each hand Tremor: (-) Sensation is intact and symmetric in the extremities bilaterally DTR's are 2+ throughout Strength throughout the Upper Extremities is 5/5 Strength throughout the Lower Extremities is 5/5 Muscle Tone throughout the extremities is normal Romberg is (-) Gait is steady with normal base, normal stride and bilateral arm swing ASSESSMENT: Kat is a 27 year old female with a hx of seasonal allergies, anxiety, and a single remote concussion who gets migraines without aura, often with associated vestibular symptoms. [id number] PEREZ's are often present upon waking, while the more severe PEREZ's start during the daytime hours, increasing in intensity over a 'short' period of time. She reports a low energy level despite getting adequate amount of sleep. 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 PLAN: Start Verapamil SR 120 mg HS for migraine prevention Increase Rizatriptan to 10 mg for abortive/symptomatic migraine relief Repeat Brain MRI without contrast; ordered for November of this year (2023) Will refer to Sleep Medicine for evaluation and likely sleep study PEREZ log is recommended Identification and avoidance of personal PEREZ/migraine triggers discussed Trying to stay on a regular sleep and eating schedule, staying well hydrated, and working on stressmanagement to help reduce PEREZ/migraine frequency discussed Follow up in the office in 3 months Electronically Signed by: Ty Stratton PA-C 09/06/23 0832 documented in this [facility] [id number] Miscellaneous Notes* Telephone Encounter - Viviane Jamison - 07/16/2023 12:39 PM EST Patient contacted our office stating that she has been taking QULIPTA for about a month and half and she states that it has not been very helpful and its very expensive. Patient would like to know how she can ween off of the medication before she has to refill again. Please advise and contact patient [phone] * Telephone Encounter - Aimee Lombardo CMA - 07/16/2023 12:39 PM EST The patient is currently taking 60 mg 1 tab in the am of Qulipta. The patient was last seen in clinic 05/23/2023 and is scheduled to follow up 09/05/2023. * Telephone Encounter - Ty Stratton PA-C - 07/16/2023 12:39 PM EST Take 1/2 tablet daily for 6 days, then Discontinue. - [facility] * Telephone Encounter - Yelitza Pickens RN - 07/16/2023 12:39 PM EST Patient informed and voiced understanding. documented in this encounterChildren's [facility] of ColumbusHOLLR [id number] Telephone encounter Note* Telephone Encounter - Viviane Jamison - 07/16/2023 12:39 PM EST Patient contacted our office stating that she has been taking QULIPTA for about a month and half and she states that it has not been very helpful and its very expensive. Patient would like to know how she can ween off of the medication before she has to refill again. Please advise and contact patient [phone] [facility] Telephone encounter Note* Telephone Encounter - Aimee Lombardo CMA - 07/16/2023 12:39 PM EST The patient is currently taking 60 mg 1 tab in the am of Qulipta. The patient was last seen in clinic 05/23/2023 and is scheduled to follow up 09/05/2023. [facility] Telephone encounter Note* Telephone Encounter - Ty Stratton PA-C - 07/16/2023 12:39 PM EST Take 1/2 tablet daily for 6 days, then Discontinue. - [facility]01-22-2024 Telephone encounter Note* Telephone Encounter - Yelitza Pickens RN - 07/16/2023 12:39 PM EST Patient informed and voiced understanding. [facility]12-13-2023 Evaluation note* Encounter Date Diagnosis Assessment Notes Treatment Notes Treatment Clinical Notes May, Viral URI (ICD-10 - J06.9) Discussed likely viral pathology given her recent exposures and current symptoms. Aware of red flags and when to report to ER. I did explain that just because her child did have pneumonia does not mean she would necessarily develop pneumonia. Discussed signs and symptoms of pneumonia and worsening infection at this time. Will defer steroids and antibiotics today. Does not require albuterol. Continue to monitor closely. Can take ufic-phc-ycaiilm medication for symptom relief. Exercise conservative measures, rest and push plenty of fluids. All questions answered and patient ends the call stable. May, Other I have spent 13 minutes with this patient and over 50% of the visit was counseling done by myself, Nelida GANNON. *Progress note was completed with the assistance of voice recognition software for dictation purposes. Please excuse any grammatical errors that were not corrected during review process. [facility] Other 12-06-2023 Evaluation note* Encounter Date Diagnosis Assessment Notes Treatment Notes Treatment Clinical Notes May, Anxiety (ICD-10 - F41.9) Discussed continued anxiety, underlying depression and counseling. Will not order formal referral. I encouraged her to reach out to local offices after researching reviews, find a counselor that she feels would be right for her, that takes her insurance. If she does need formal referral anywhere I am happy to place it attach this progress note. She is safe from a mental health perspective today and not harm to herself or others. Will increase medication and please call in 4 to 6 weeks with an update. May, Nausea (ICD-10 - R11.0) Discussed the nausea, underlying probable gastritis secondary to anxiety. She is having decent coverage throughout the day. I would like to see if increasing the dosage gives her a longer duration of coverage. Discussed conservative measures as well as dietary triggers to avoid. May, Migraines (ICD-10 - G43.909) Discussed the neurology follow-up, imaging and their recommendations. I would highly encourage her to give the rizatriptan and Qulipta a try. I did discuss the medications with patient briefly today. Please continue to follow closely with neurology. May, Other *Progress note was completed with the assistance of voice recognition software for dictation purposes. Please excuse any grammatical errors that were not corrected during review process. [facility] Other 09-11-2023 Evaluation note* Encounter Date Diagnosis Assessment Notes Treatment Notes Treatment Clinical Notes Feb, Anxiety (ICD-10 - F41.9) Discussed resuming and prescribing the Wellbutrin 150 daily. Discussed mental health and when to reach out if needed sooner. Patient verbalizes understanding Feb, Migraines (ICD-10 - G43.909) Discussed the CT head and anxiety as it could relate to the headaches. She does states she feels a bit better since the anxiety has been reduced. Patient does have neurology consult started. No new symptoms at this time and no need for emergent follow-up or intervention. Encouraged conservative measures Feb, Elevated DHEA (ICD-10 - E27.8) Discussed lab values today as they relate to endocrine processes and recent lab results. I would like her to continue move forward with endocrinology referral. Patient verbalized understanding. No new symptomology today Feb, Other *Progress note was completed with the assistance of voice recognition software for dictation purposes. Please excuse any grammatical errors that were not corrected during review process. [facility] Other 08-30-2023 Evaluation note* Encounter Date Diagnosis Assessment Notes Treatment Notes Treatment Clinical Notes Jan, Elevated DHEA (ICD-10 - E27.8) Extensive lab review completed in office today. Given the elevated DHEA level and cortisol level, I would like to repeat these labs as they were completed almost 6 months ago. She understands to take dexamethasone tablet at 11 PM and check the morning cortisol level between 7 and 9 AM. I will defer the 24-hour urine cortisol level today as her recent check was normal. Given the neurologic symptoms that seem to persist simultaneously with these concerns, I would like to refer to endocrinology. Patient verbalizes understanding. We also reviewed pelvic ultrasound and abdominal CT in office today which were essentially negative. We will also [facility]. Jan, Elevated cortisol level (ICD-10 - E27.0) Extensive lab review completed in office today. Given the elevated DHEA level and cortisol level, I would like to repeat these labs as they were completed almost 6 months ago. She understands to take dexamethasone tablet at 11 PM and check the morning cortisol level between 7 and 9 AM. I will defer the 24-hour urine cortisol level today as her recent check was normal. Given the neurologic symptoms that seem to persist simultaneously with these concerns, I would like to refer to endocrinology. Patient verbalizes understanding. We also reviewed pelvic ultrasound and abdominal CT in office today which were essentially negative. We will also forward these to endocrinology through [facility]. Jan, Nausea (ICD-10 - R11.0) I would like her to trial PPI daily x 8 weeks to see if the nausea subsides at all. I am not quite convinced it is completely GI related but we cannot rule out acid reflux/GERD unless we trialed a PPI times at least 8 weeks. Patient does verbalize understanding. Take each morning. Jan, Dizziness (ICD-10 - R42) Given the daily migraines with dizziness, nausea, heavy sensation to the head, swelling to the hands and generalized feeling of being unwell, I would like to order CT of the head and refer to neurology. Patient verbalizes understanding and is agreeable. [facility] so the same electronic medical record can be utilized between both specialties we are referring to today. Discussed conservative measures for treatment of headache. Patient politely declines more aggressive treatment through medication. Jan, Migraines (ICD-10 - G43.909) Given the daily migraines with dizziness, nausea, heavy sensation to the head, swelling to the hands and generalized feeling of being unwell, I would like to order CT of the head and refer to neurology. Patient verbalizes understanding and is agreeable. [facility] so [facility] medical record can be utilized between both specialties we are referring to today. Discussed conservative measures for treatment of headache. Patient politely declines more aggressive treatment through medication. Jan, Other I have spent 75 minutes with/on this patient and over 50% of the visit was counseling done by myself, Nelida GANNON. *Progress note was completed with the assistance of voice recognition software for dictation purposes. Please excuse any grammatical errors that were not corrected during review process. [facility] Other 02-22-2022 Note [id number]10-15-2021 [id number] 02-04-2020 History general Narrative - Reported* Type Description Date Medical History Anxiety Medical History Depression Medical History Seasonal allergies Hospitalization History Childbirth 0 Hospitalization History Childbirth 06/08/20 21 [facility] Other Evaluation [facility]No [facility] Other Evaluuuzrn noteNo assessment information available [facility] Work Phone: Evaluation note* Diagnosis Onset Date Resolution Status Acid reflux acute Anxiety acute Migraines acute Nausea acute [facility] Work Phone: Evaluation note* Diagnosis Migraine without aura and without status migrainosus, not intractable [facility] Diagnosis Migraine without aura and without status migrainosus, not intractable- Primary Vestibular migraine Pineal gland cyst Other specified endocrine disorders Hx of concussion Daytime somnolence [facility] Diagnosis Missed menses , unspecified gestational age ([facility]) Encounter for supervision of normal first in first trimester ([facility]) Dizzy Dizziness and giddiness Lightheaded Dizziness and giddiness [facility] Diagnosis 11 weeks gestation of ([facility]) First trimester ([facility]) state, incidental Nausea and vomiting in ([facility]) Unspecified vomiting of , unspecified as to episode of care Gastroesophageal reflux disease with esophagitis, unspecified whether hemorrhage Meconium aspiration in child of prior , currently , unspecified trimester ([facility]) documented [facility] N[facility]ative - Reported* Type Description Date Medical History Anxiety Medical History Depression Medical History Seasonal allergies Medical History Elevated cortisol level Medical History Elevated DHEA Medical History Migraines Hospitalization History Childbirth 0 Hospitalization History Childbirth 06/08/20 21 [facility] Other InstructionsNot on filedocumented in this encounter [facility]Not on filedocumented in this encounter [facility] SystemInstructionsNot on filedocumented in this encounter [employer] Summary Purpose Family History Relationship Condition Age at Onset Recorded Date/T lauro family member Malignant neoplasm of breast Unknown brother Family history of kidney disease Unknown grandparent Diabetes mellitus Unknown Unknown grandparent Unknown grandparent Malignant neoplasm of breast Unknown Not Specified Heart disease Unknown sister History of malignant neoplasm of cervix U nknown father Meniere's disease Unknown Relationship Condition Age at Onset Recorded Date/T lauro aunt Malignant neoplasm of breast Unknown brother Family history of kidney disease Unknown grandparent Diabetes mellitus Unknown Unknown grandparent Unknown grandparent Malignant neoplasm of breast Unknown mother Heart disease Unknown sister History of malignant neoplasm of cervix U nknown father Meniere's disease Unknown Advance Directives Advance Directive Response Recorded Date/ Time Advance Directives Yes July 2:59pm Reason for Referral Reason Elevated cortisol an d DHEA [facility] Diagnosis 1 Elevated DHEA (E27.8 ) Referral Organization [facility] [employer] Referring Provider First Name Nelida Referring Provider Last Name [facility] Referring Provider Specialty Nurse Pract itioner Referred Organization [facility] Referred Address [address],[address] Referred Provider Specialty Endocrinolog y Referral Priority Routine Reason Neuro [facility]- sev eral ongoing neuro symptoms Pending CT head at [facility] Diagnosis 1 Dizziness (R42) Referral Organization [facility] [employer] Referring Provider First Name Nelida Referring Provider Last Name [facility] Referring Provider Specialty Nurse Pract itioner Referred Organization [facility] Referred Address [address], [place],[address] Referred Provider Specialty Neurology Referral Priority Routine Specialty Diagnoses / Procedures Referred By Teofilo anders Referred To Contact Radiology Diagnoses Migraine without aura and without status migrainosus, not intractable Vestibular migraine Pineal gland cyst Procedures MR brain without contrast Ty Stratton PA-C [address] [place] [address] Referral ID Status Reason Start Date Expiration Date V isits Requested Visits Authorized [id number] Pending Review 09/05/2023 09/04/2024 1 1 Specialty Diagnoses / Procedures Referred By Teofilo anders Referred To Contact Sleep Medicine Diagnoses Daytime somnolence Ty Stratton PA-C [address] [place] [address] Yanira Partida MD [address] [place] [address] Referral ID Status Reason Start Date Expiration Date Visits Requested Visits Authorized [id number] Pending Review Specialty Services Required 09/05/2023 09/04/2024 1 1 Chief Complaint and Reason for Visit Chief Complaint Amb Documentation discuss medication Chief Complaint Amb Documentation discuss medication REF BY NELIDA MCKENZIE FOR NAUSEA /EARLY SATIETY Reason for Visit Acid reflux Anxiety Migraines Nausea Chief Complaint discuss medication REF BY NELIDA MCKENZIE FOR NAUSEA /EARLY SATIETY Unknown Reason for Visit Acid reflux Anxiety Migraines Nausea Chief Complaint REF BY NELIDA HERNANDEZ OD FOR NAUSEA /EARLY SATIETY Unknown Amb Documentation *LAB* sinus infection Reason for Visit Nausea Additional Source Comments INFORMATION SOURCE (unrecogn ized section and content) DATE CREATED AUTHOR [facility]/14/2021 [facility] DATE CREATED AUTHOR AUTHOR'S ORGANIZ ATION 11/05/2022 [facility] DATE CREATED AUTHOR AUTHOR'S ORGANIZ ATION 09/06/2023 [facility] DATE CREATED AUTHOR AUTHOR'S ORGANIZ ATION 12/12/2023 [facility] DATE CREATED AUTHOR AUTHOR'S ORGANIZ ATION 12/18/2024 [facility] EPIC REASON FOR VISIT (unrecogniz ed section and content) Reason Comments Med Refill Reason Onset Date Comments WEENING OFF QULIPTA 07/16/2023 Reason Comments Follow-up Patient is here toda y for 3 month follow up DX: Migraine without aura and without status migrainosus, not intractable. Patient states she fells like nothing has changed and she is still having the same frequency of migraines. Reason Comments Amenorrhea Reason Comments Routine Visit Care Teams (unrecognized sec tion and content) Team Status: Active Member Role Status Dates Nelida Mckenzie APRN Primary Care Provider Active Team Status: Inactive Member Role Status Dates Nelida Mckenzie APRN Primary Care Pr velma Attending Provider Active Start: September 19, 2023 End: September 19, 2023 Team Status: Inactive Member Role Status Dates Jake Fitzgerald APRN Attending Provider Active Start: November 28, 2023 End: November 28, 2023 Nelida Mckenzie APRN Primary Care Provider Active Start: November 28, 2023 End: November 28, 2023 Team Status: Inactive Member Role Status Dates Nelida Mckenzie APRN Primary Care Provider Active Start: December 05, 2023 End: December 05, 2023 Junito Ortiz Attending Provider Active Start: 2023 End: December 05, 2023 Team Status: Active Member Role Status Dates Provider Conversion Attending Provider Active St art: July 09, 2023 Team Status: Active Member Role Status Dates Chrissie Correia MD Primary Care Provider Active Start: September 03, 2023 JARRETT Vasquez Attending Provider Active St art: September 03, 2023 Team Status: Active Member Role Status Dates Nelida Mckenzie APRN Primary Care Provider Active Start: December 17, 2023 JARRETT Vasquez Attending Provider Active St art: December 17, 2023 Team Status: Inactive Member Role Status Dates Nelida Mckenzie APRN Primary Care Adalid carreon Attending Provider Active Start: December 25, 2023 End: December 25, 2023 Pig Lead Melter Helper Relationship Specialty Start Date End Date Nelida Mckenzie APRN-LOZENGE DOUGH MIXER [address], [facility] [address] [place] [address] PCP - General Family Medicine 04/06/23 Pig Lead Melter Helper Relationship Specialty Start Date End Date Nelida Mckenize, CLIENT EVALUATOR-LOZENGE DOUGH MIXER [address] [place] [address] PCP - General Family Medicine 04/06/23 Pig Lead Melter Helper Relationship Specialty Start Date End Date Nelida Mckenzie, CLIENT EVALUATOR-LOZENGE DOUGH MIXER [address] [place] [address] PCP - General Family Medicine 04/06/23 Pig Lead Melter Helper Relationship Specialty Start Date End Date Unallocated, [place] [address] PCP - General Family Medicine 05/08/24 Maurice Renee DO [address] [place] [address] Referring Physician Neurology 05/08/24 Pig Lead Melter Helper Relationship Specialty Start Date End Date Unallocated, [place] [address] PCP - General Family Medicine 05/08/24 Maurice Renee DO [address] [place] [address] Referring Physician Neurology 05/08/24 Pig Lead Melter Helper Relationship Specialty Start Date End Date Unallocated, [place] [address] PCP - General Family Medicine 05/08/24 Maurice Renee DO [address] [place] [address] Referring Physician Neurology 05/08/24 Goals (unrecognized section and content) Goals may be documented in a n alternate section FOR RECORDS PERTAINING TO PATIENTS WHO ARE OR HAVE BEEN ENROLLED IN A CHEMICAL DEPENDENCY/SUBSTANCEABUSE PROGRAM, SOME INFORMATION MAY BE OMITTED. This clinical summary was aggregated from multiple sources. Caution should be exercised in using it in the provision of clinical care. This summary normalizes information from multiple sources, and as a consequence, information in this document may materially change the coding, format and clinical context of patient data. In addition, data may be omitted in some cases. CLINICAL DECISIONS SHOULD BE BASED ON THE PRIMARY CLINICAL RECORDS. [employer] [facility]. provides no warranty or guarantee of the accuracy or completeness of information in this document.
[2025-01-19 17:08] LABS: Age Gdln ACOG Testing Note (.); IGP, rfx Aptima HPV ASCU Note (.)
== END 2025-01-14 19:35 | disposition home or self-care (01) ==
LOC: LAB 19:34
PROVIDERS: PCP Nurse Practitioner Family; Visit Provider Obstetrics & Gynecology
DX: Z01.419 Encounter for gynecological examination (general) (routine) without abnormal findings (principal)
CPT/HCPCS: 88175

== ENCOUNTER 2025-02-05 10:00 | Outpatient (RCR) | payer OTHER, SELFPAY ==
[2025-01-23 13:07] VITALS: BP 120/76; PULSE 76; TEMP 36.6; O2SAT 98
[2025-01-23] MEDS: MULTIVIT INFUSN,ADULT 4,VIT K 10 ML in 0.9 % SODIUM CHLORIDE 1,000 ML 500 ML IV (13:19)
[2025-02-05 10:07] VITALS: BP 107/67; PULSE 78; O2SAT 97
[2025-02-05] MEDS: MULTIVIT INFUSN,ADULT 4,VIT K 10 ML in 0.9 % SODIUM CHLORIDE 1,000 ML 500 ML IV (10:19)
== END 2025-02-22 23:59 | disposition home or self-care (01) ==
LOC: INF 10:00
PROVIDERS: PCP Nurse Practitioner Family; Visit Provider Obstetrics & Gynecology
DX: O21.9 Vomiting of pregnancy, unspecified (principal); O99.280 Endocrine, nutritional and metabolic diseases complicating pregnancy, unspecified trimester; E86.0 Dehydration; Z3A.00 Weeks of gestation of pregnancy not specified
CPT/HCPCS: 96365; 96366; 96375; J2405

== ENCOUNTER 2025-03-04 09:53 | Outpatient (RCR) | payer OTHER, SELFPAY | END 2025-03-31 13:09 | disposition home or self-care (01) | LOC: PT 09:53 | PROVIDERS: PCP Nurse Practitioner Family; Visit Provider Nurse Practitioner Family | DX: M53.3 Sacrococcygeal disorders, not elsewhere classified (principal) | CPT/HCPCS: 97110; 97113; 97161 ==

== ENCOUNTER 2025-04-01 08:12 | Outpatient (OUT) | payer OTHER, SELFPAY ==
--- OUTSIDE RECORDS SUMMARY | 2025-04-01 08:18 | XMS_ITS | CCD ---
Author Organization [facility] CliniSy[facility] Care Team Providers Care Partner Alliance Manager Name Role Phone NICK, DR NIELSEN Admitting Unavailable NICK, DR NIELSEN Attending Unavailable SMITH ., VI Primary Care Unavailable NICK, DR NIELSEN Consulting Unavailable ANGEL ., DR PAULINO Consulting Unavailable ANGEL ., DR PAULINO Admitting Unavailable ANGEL ., DR PAULINO Attending Unavailable SMITH ., VI Primary Care Unavailable JACKSON, DR NIELSEN V Consulting Unavailable ANGEL ., [...] ble ANGEL ., DR PAULINO Consulting Unavailable Magaly Nelida Unavailable TY STRATTON Attending Unavailable NELIDA MCKENZIE Referring Unavailable NELIDA MCKENZIE Primary Care Unavailable YANELI Mckenzie Primary Care Provider Junito Ortiz Attending Provider Nelida Mckenzie Primary Care Unavailable Junito Ortiz Attending Unavailable Junito Ortiz Admitting Unavailable [place] Nelida DEL VALLE Primary Care Provider Unallocated , [place] Provider Primary Care Provi aristeo [place] DO Unavailable JUNITO ORTIZ Attending Unavailable JUNITO ORTIZ Attending Unavailable INNA KIRKLAND Attending Unavailable JUNITO ORTIZ Referring Unavailable JUNITO ORTIZ Attending Unavailable Allergies Allergy Classification Reported Allergen(s) Allergy Type Date of Onset Reaction(s) Facility (9 sources) House dust mite Drug allergy Unknown [address] Other (20 sources) Pollen Drug allergy [address] Other (5 sources) house dust allergenic extract; Translations: [house dust] Drug Allergy [address] [facility] (5 sources) Pollen; Translations: [pollen extracts] Allergy to substance [address] [facility] Medications Current Medications Medication Drug Class(es) Dates Sig (Normalized) Sig (Original) acetaminophen 300 mg / codeine phosphate 30 mg oral tablet (4 sources) Opioid Agonist Start: 01-14-2025 End: 01-19-2025 take 1 tablet by mouth every six hours for pain acetaminophen-code ine (Tylenol w/ Codeine #3) 300-30 MG tablet Indications: Other migraine with status migrainosus, not intractable Take 1 tablet by mouth every 6 (six) hours if needed for severe pain for up to 5 days 20 tablet 01/14/2025 01/19/2025 Active atogepant 60 MG Oral Tablet [Qulipta] (1 source) take 1 tablet by mouth every twenty-four hours Qulipta 60 MG 1 tablet Orally Once a day Active dexamethasone 1 mg oral tablet (2 sources) Corticosteroid Start: 02-21-2023 Dexamethasone 1 MG 1 tablet Orally 11pm for 1 days Jan, Active Doxylamine Succinate, Sleep, (UNISOM PO) (11 sources) Doxylamine Succinate, Sleep, (UNISOM PO) Take by mouth Active fexofenadine (10 sources) [...] 180 MG tablet 09/12/2023 12/17/2024 Discontinued Magnesium (20 sources) Start: 12-25-2023 magnesium Acti ve PO December 25, 2023 12:00am Start: 09-03-2023 End: 11-28-2023 magnesium Discontinued PO [facility] 2023 12:00am November 28, 2023 8:59am Start: 09-03-2023 magnesium Acti ve PO September 03, 2023 12:00am Start: 08-17-2022 magnesium 100 MG tablet 08/17/2022 Active Magnesium OTC, d aily Active metoclopramide 10 mg oral tablet (13 sources) Dopamine-2 Receptor Antagonist Start: 01-26-2025 End: 02-25-2025 metoclopramide (Reglan) 10 MG tablet Indications: Nausea and vomiting in ([facility]) Take 1 tablet (10 mg) by mouth in the morning and 1 tablet (10 mg) at noon and 1 tablet (10 mg) in the evening. Take before meals. Take 1 tablet by mouth 30 minutes prior to meals 3 times daily as needed for nausea. 90 tablet 1 01/26/2025 Active Start: 01-14-2025 End: 01-24-2025 take 1 tablet by mouth three times daily as needed metoclopramide (Reglan) 10 MG tablet Indications: Nausea and vomiting in ([facility]) Take 1 tablet (10 mg) by mouth 3 (three) times a day as needed (as needed prior to meals) for up to 10 days 1 tablet 01/14/2025 01/24/2025 Active Start: 12-16-2024 End: 12-17-2024 take 1 tablet by mouth before mealtime as needed for nausea metoclopramide (Reglan) 10 MG tablet Indications: Nausea and vomiting in ([facility]) TAKE 1 TABLET BY MOUTH IN THE MORNING, NOON, EVENING, 30 MINUTES BEFORE MEALS NEEDED FOR NAUSEA 90 tablet 3 12/16/2024 12/17/2024 Discontinued (Ineffective) Start: 11-14-2024 End: 12-14-2024 metoclopramide (Reglan) 10 M G tablet Indications: Nausea and vomiting in ([facility]) Take 1 tablet (10 mg) by mouth in the morning and 1 tablet (10 mg) at noon and 1 tablet (10 mg) in the evening. Take before meals. Take 1 tablet by mouth 30 minutes prior to meals 3 times daily as needed for nausea. 90 tablet 11/14/2024 12/14/2024 Active omeprazole 20 mg delayed release oral capsule (20 sources) Proton Pump Inhibitor Start: 01-26-2025 End: 05-19-2025 take 2 capsules by mouth before mealtime omeprazole (PriLOSEC) [address] capsule Indications: Gastroesophageal Reflux Disease , Heartburn Take 2 capsules (40 mg) by mouth in the morning. Take before meals. Do not crush or chew. 180 capsule 3 02/18/2025 05/19/2025 Active Start: 09-03-2023 End: 11-28-2023 take 40 mg [...] mouth in the morning. 0 02/21/2023 Active ondansetron 4 mg oral tablet (20 sources) Serotonin-3 Receptor Antagonist Start: 11-05-2024 End: 01-14-2025 take 1 tablet by mouth every six hours as needed for nausea and nausea, then take 1 tablet by mouth every six hours as needed for nausea and nausea ondansetron (Zofran) 4 MG tablet Indications: Nausea and vomiting in ([facility]) Take 1 tablet (4 mg) by mouth every 6 (six) hours if needed for nausea or vomiting for up to 30 doses Take 1 tablet by mouth every 6 hours as needed for nausea. 30 tablet 3 01/14/2025 Active Start: 09-03-2023 End: 12-25-2023 take 4 [...] pantoprazole 40 mg delayed release oral tablet (11 sources) Proton Pump Inhibitor Start: 12-17-2024 End: 12-17-2025 take 1 tablet by mouth before mealtime pantoprazole (Protonix) 40 MG EC tablet Indications: Gastroesophageal reflux disease with esophagitis, unspecified whether hemorrhage Take 1 tablet (40 mg) by mouth in the morning. Take before meals. Do not crush, chew, or split. 30 tablet 11 12/17/2024 12/17/2025 Active Probiotic Product (PROBIOTIC ADVANCED PO) (13 sources) Probiotic Produc t (PROBIOTIC ADVANCED PO) Probiotic Active promethazine hydrochloride 12.5 mg oral tablet (4 sources) Phenothiazine Start: 02-18-2025 take 1 tablet by mouth every eight hours as needed for nausea and nausea, then take 1 tablet by mouth every six hours as needed for nausea and nausea promethazine (Phenergan) 12.5 MG tablet Indications: Nausea and vomiting in ([facility]) Take 1 tablet (12.5 mg) by mouth every 8 (eight) hours if needed for nausea or vomiting for up to 30 doses Take 1 tablet by mouth every 6 hours as needed for nausea. 30 tablet 2 02/18/2025 Active pyridoxine hydrochloride 25 mg oral tablet (11 sources) take 1 tablet by mouth once [...] mouth nightly. 30 tablet 5 09/05/2023 Active zolpidem tartrate 10 mg oral tablet (8 sources) gamma-Aminobuty asif Acid-ergic Agonist Start: 01-14-2025 End: 01-19-2025 Ambien 10 MG tablet Indications: related fatigue in second trimester ([facility]) , Insomnia, unspecified type Take 1 tablet (10 mg) by mouth as needed at bedtime for sleep for up to 5 days 5 tablet 01/14/2025 Active Completed/Discontinued Medications Medication Drug Class(es) Dates [...] 2023 11:41am take 2 tablets by mo [facility] every twenty-four hours in the morning buPROPion [...] Once a day for 90 days Active famotidine 10 mg oral tablet (5 sources) Histamine-2 Receptor Antagonist End: 01-14-2025 famotidine (Pepcid) 10 MG tablet Take by mouth 01/14/2025 Discontinued magnesium oxide 250 mg oral tablet (2 sources) End: 09-05-2023 take 1 tablet by mouth in the morning magnesium oxide 250 mg tablet Take 1 tablet (250 mg total) by mouth in the morning. 0 09/05/2023 Discontinued PNV no.95/ferrous fum/folic ac ( ORAL) (2 sources) End: 09-05-2023 take 1 tablet by mouth once daily before mealtime PNV no.95/ferrous fum/folic ac ( ORAL) Take 1 tablet by mouth daily. 0 09/05/2023 Discontinued take 1 tablet by preethi th once daily before mealtime PNV no.95/ferrous fum/folic [...] Translations: [Dizziness and giddiness] Episodic Esophageal disorders (9 sources) Gastroesophageal reflux disease; Translations: [Gastro-esophageal reflux disease without esophagitis] 09-24-2023 Chronic Headache; including migraine (20 sources) Migraine; Translations: [Migraine, unspecified, not intractable, without status migrainosus] Onset: 03-21-20 Chronic Heart valve disorders (2 sources) Tachycardia; Translations: [Unspecified abnormalities of heart beat] 02-18-2025 Episodic Immunizations and screening for infectious disease (3 sources) Encounter for screening for human papillomavirus (HPV); Translations: [Exposure to sexually transmissible disorder] Onset: 11-05-1901-14-2025 Episodic Malaise and fatigue (1 source) Other fatigue; Translations: [OTHER FATIGUE] Onset: 08-29-19 Episodic Menstrual disorders (5 sources) Irregular menstruation, unspecified; Translations: [Missed period] Onset: 08-02-19 Chronic Mood disorders (13 sources) Depressive disorder; Translations: [Major depressive disorder, single episode, unspecified] 09-03-2023 Chronic Nausea and vomiting (18 sources) Nausea; Translations: [Nausea] Onset: 08-29-19 Episodic Other complications of (6 sources) Vomiting of , unspecified; Translations: [Unspecified vomiting of , unspecified as to episode of care or not applicable] 12-17-2024 Episodic Other complications of (2 sources) High risk ; Translations: [Supervision of with other poor reproductive or obstetric history, unspecified trimester] 12-17-2024 Episodic Other complications of (2 sources) Fatigue during ; Translations: [ related exhaustion and fatigue, second trimester] 01-14-2025 Episodic Other endocrine disorders (5 sources) Other adrenocortical overactivity; Translations: [OTHER ADRENOCORTICAL OVERACTIVITY] Onset: 09-07-19 Chronic Other endocrine disorders (9 sources) Dehydroepiandrosterone sulfate level; Translations: [Other specified disorders of adrenal gland] Chronic Other endocrine disorders (9 sources) Increased cortisol level; Translations: [Other adrenocortical overactivity] Chronic Other endocrine disorders (2 sources) Other specified disorders of adrenal gland Chronic Other female genital disorders (2 sources) Vaginal discharge; Translations: [Other specified noninflammatory disorders of vagina] 01-14-2025 Episodic Other and delivery including normal (20 sources) ; Translations: [Encounter for supervision of normal , unspecified, unspecified trimester] Onset: 12-04-1912-05-2024 Episodic Other screening for suspected conditions (not mental disorders or infectious disease) (20 sources) Encounter for screening for malignant neoplasm [...] [11 weeks gestation of ] 12-17-2024 Episodic Residual codes; unclassified (2 sources) Gestation period, 15 weeks; Translations: [15 weeks gestation of ] 01-14-2025 Episodic Residual codes; unclassified (2 sources) Insomnia; Translations: [Insomnia, unspecified] 01-14-2025 Episodic Residual codes; unclassified (2 sources) Gestation period, 20 weeks; Translations: [20 weeks gestation of ] 02-18-2025 Episodic Residual codes; unclassified (2 sources) Gestation period, 24 weeks; Translations: [24 weeks gestation of ] 03-18-2025 Episodic Past or Other Problems Problem Classification [...] Test Name Value Interpretation Reference Range Facility US OB LIMITED 1+ FETUSESon 0 03-18-2025 US OB LIMITED 1+ FETUSES FINDINGS: Breech presentation. Heart rate 132. Morphology is grossly normal, which includes thoracolumbar, lumbosacral, distal lumbar evaluation. Gestational age of 24 weeks and 3 days, estimated delivery date of July 05, 2025. IMPRESSION: Single viable intrauterine , appropriate thoracolumbar, lumbosacral anatomy for this age. TRANSCRIBED BY: ELECTRONICALLY SIGNED BY: Himanshu Nogueira MD Normal Not Available Comment on above: Order Comment: US OB INCOMPLETE ANATOMY Estimated Date of Delivery: 07/05/25 Gestational Age as of 02/25/2025: 21w3d Urinalysis macro (dipstick) panel (U)on 03-18-2025 Bilirubin, UA Negative Negative - 4(70) +++ mg/dL [facility] Blood, UA Negative Negative - 50 Cj/mcL [facility] Clarity, UA Clear [facility] Color, UA Yellow [facility] Glucose, UA Negative Negative - 1999(110) ++++ mg/dL [facility] Interpretation and review of laboratory results Normal [facility] Ketones, UA Negative Negative - 160(16) ++++ mg/dL [facility] Leukocytes, UA Negative Negative - 500+++ Cosmo/mcL [facility] Nitrite, UA Negative Negative - Positive [facility] pH, UA 6.5 5 - 9 [facility] Protein, UA Negative Negative - 1999(20) ++++ mg/dL [facility] Spec Grav, UA 1.01 1 - 1.03 [facility] Urobilinogen, UA 1.0 0.2 - 12 mg/dL [facility] Urinalysis macro (dipstick) panel (U)on 02-18-2025 Bilirubin, UA Negative Negative - 4(70) +++ mg/dL [facility] Blood, UA Negative Negative - 50 Cj/mcL [facility] Clarity, UA Clear [facility] Color, UA Yellow [facility] Glucose, UA Negative Negative - 1999(110) ++++ mg/dL [facility] Interpretation and review of laboratory results Abnormal [facility] Ketones, UA Negative Negative - 160(16) ++++ mg/dL [facility] Leukocytes, UA Positive Negative - 500+++ Cosmo/mcL [facility] Nitrite, UA Negative Negative - Positive [facility] pH, UA 6 5 - 9 [facility] Protein, UA Negative Negative - 1999(20) ++++ mg/dL [facility] Spec Grav, UA 1.025 1 - 1.03 [facility] Urobilinogen, UA 1.0 0.2 - 12 mg/dL [facility] IGP,APTIMA HPV,AGE GDLNon -2024 AGE GDLN ACOG TESTING Note . [facility] Comment on above: TESTS RESULT FLAG UN [facility] REF RANGE LAB - Clinician Provided Cytology Information Source.............Endocervix No. of containers..01 ThinPrep Vial Age Algo ACOG Marina... - FLAG LEGEND: L-Low Normal,H-High Normal,LL-Alert Low,HH-Alert High <-Panic Low,>-Panic High,A-Abnormal,AA-Critical Abnormal - Performed at: 01 =[facility] [address] [place] [address] Maliha Cobb MD, IGP, RFX APTIMA HPV ASCU Note . [facility] Comment on above: TESTS RESULT FLAG UN [facility] REF RANGE LAB - DIAGNOSIS: 02 NEGATIVE FOR INTRAEPITHELIAL LESION OR MALIGNANCY. Specimen adequacy: 02 Satisfactory for evaluation. No endocervical component is identified. Performed by: Santi Gregory, Quality Control Analyst ([facility]) . 02 Note: Note 02 The Pap smear is a screening test designed to aid in the detection of premalignant and malignant conditions of the uterine cervix. It is not a diagnostic procedure and should not be used as the sole means of detecting cervical cancer. Both false-positive and false-negative reports do occur. Test Methodology: Note 02 This liquid based ThinPrep(R) pap test was screened with the use of an image guided system. . 02 The HPV DNA reflex criteria were not met with this specimen result therefore, no HPV testing was performed. - FLAG LEGEND: L-Low Normal,H-High Normal,LL-Alert Low,HH-Alert High <-Panic Low,>-Panic High,A-Abnormal,AA-Critical Abnormal - Performed at: [address] [id number] Maliha Cobb MD, Performed at: =G - [facility] [address], [place] [id number] Anchorman: Maliha Cobb MD, Phone: [phone] Performed at: - [facility] [id number] Anchorman: Maliha Cobb MD, Phone: [phone] [facility] RECURRENT VAGINITIS (HTRX)on 01-15-2025 ATOPOBIUM VAGINAE 0 [facility] ATOPOBIUM VAGINAE Not detected [facility] BVAB 2,3 (BACTERIAL VAGINOSIS ASSOCIATED BACTERIA 2, 3); MOBILUNCUS SPP 0 [facility] BVAB 2,3 (BACTERIAL VAGINOSIS ASSOCIATED BACTERIA 2, 3); MOBILUNCUS SPP Not detected [facility] MAYRA ALBICANS, PARAPSILOSIS, TROPICALIS 0 [facility] MAYRA ALBICANS, PARAPSILOSIS, TROPICALIS Not detected [facility] MAYRA GLABRATA 0 [facility] MAYRA GLABRATA Not detected [facility] MAYRA KRUSEI 0 [facility] MAYRA KRUSEI Not detected [facility] CHLAMYDIA TRACHOMATIS 0 [facility] CHLAMYDIA TRACHOMATIS Not detected [facility] GARDNERELLA VAGINALIS 0 [facility] GARDNERELLA VAGINALIS Not detected [facility] MEGASPHAERA (TYPES 1, 2) 0 [facility] MEGASPHAERA (TYPES 1, 2) Not detected [facility] MYCOPLASMA GENITALIUM 0 [facility] MYCOPLASMA GENITALIUM Not detected [facility] NEISSERIA GONORRHOEAE 0 [facility] NEISSERIA GONORRHOEAE Not detected [facility] TRICHOMONAS VAGINALIS 0 [facility] TRICHOMONAS VAGINALIS Not detected [facility] US OB 14+ WEEKS ANATOMY SCAN on 01-14-2025 US OB 14+ WEEKS ANATOMY SCAN ADDENDUM #1 Current examination demonstrated an incomplete anatomical scan for spine evaluation. Recommend follow-up imaging dedicated to spine evaluation. TRANSCRIBED BY: ELECTRONICALLY SIGNED BY: Himanshu Nogueira MD FINDINGS: A single, live intrauterine is present with normal cardiac rate of 155 beats per minute. Normal activity and amniotic fluid volume. Morphology is grossly normal. The cervix is long and closed, 5.9 cm. The placenta is anterior, inferior aspect 4.9 cm from the closed cervical os. The current sonographic age is 20 weeks and 2 days, based on the following measurements: BPD 4.6 cm (19 weeks, 5 days) Head Circumference 17.9 cm (20 weeks, 2 days) Abdominal Circumference 16.1 cm (21 weeks, 1 day) Femur Length 3.5 cm (20 weeks, 6 days) Presentation Breech Placenta Anterior Weight (g) by Percentile 72.4 % * These measurements result in an estimated date of delivery of July 06, 2025. The current estimated weight is 386 grams (0 pounds, 14 ounces). IMPRESSION: Single, live intrauterine , current sonographic age of 20 weeks and 2 days, with an estimated date of delivery of July 06, 2025 * Estimated Weight (g) by Percentile is based upon an accurate estimated age based on last menstrual period. TRANSCRIBED BY: ELECTRONICALLY SIGNED BY: Himanshu Nogueira MD Normal Not Available Comment on above: Order Comment: US OB ANATOMY SINGLE W US OB CERVICAL LENGTH Estimated Date of Delivery: 07/05/25 Gestational Age as of 01/14/2025: 15w3d Urinalysis macro (dipstick) panel (U)on 01-14-2025 Bilirubin, UA Negative Negative - 4(70) +++ mg/dL [facility] Blood, UA Negative Negative - 50 Cj/mcL [facility] Clarity, UA Clear [facility] Color, UA Yellow [facility] Glucose, UA Negative Negative - 1999(110) ++++ mg/dL [facility] Interpretation and review of laboratory results Normal [facility] Ketones, UA Negative Negative - 160(16) ++++ mg/dL [facility] Leukocytes, UA Negative Negative - 500+++ Cosmo/mcL [facility] Nitrite, UA Negative Negative - Positive [facility] pH, UA 6 5 - 9 [facility] Protein, UA Negative Negative - 1999(20) ++++ mg/dL [facility] Spec Grav, UA 1.02 1 - 1.03 [facility] Urobilinogen, UA 1.0 0.2 - 12 mg/dL [facility] Healthcare [facility] Urinalysis macro (dipstick) panel (U)on 12-17-2024 Bilirubin, UA Negative Negative - 4(70) +++ mg/dL [facility] Blood, UA Negative Negative - 50 Cj/mcL [facility] Clarity, UA Clear [facility] Color, UA Yellow [facility] Glucose, UA Negative Negative - 1999(110) ++++ mg/dL [facility] Interpretation and review of laboratory results Abnormal [facility] Ketones, UA Negative Negative - 160(16) ++++ mg/dL [facility] Leukocytes, UA Positive Negative - 500+++ Cosmo/mcL [facility] Comment on above: small Nitrite, UA Negative Negative - Positive [facility] pH, UA 5.5 5 - 9 [facility] Protein, UA Negative Negative - 1999(20) ++++ mg/dL [facility] Spec Grav, UA 1.03 1 - 1.03 [facility] Urobilinogen, UA 0.2 0.2 - 12 mg/dL [facility] ALL CBC WITH AUTO DIFFon BASOPHILS ABSOLUTE AUTO 0.[address] [facility] Basophils/100 WBC (Bld) 0.4 % 0.2 - 2.0 % [facility] Eosinophils/100 WBC (Bld) 0.9 % 0.9 - 7.0 % [facility] Erythrocyte distribution width (RBC) [Ratio] 13.4 % 11.0 - 15.0 % [facility] Hematocrit (Bld) [Volume fraction] 43.2 % 36.0 - 48.0 % [facility] Hemoglobin (Bld) [Mass/Vol] 15.2 g/dL 12.0 - 16.0 g/dL [facility] IMMATURE GRANULOCYTES ABS AUTO 0.05 High [facility] Immature granulocytes/100 WBC (Bld) 0.4 % 0.0 - 0.5 % [facility] Interpretation and review of laboratory results Abnormal [facility] LYMPHOCYTES ABSOLUTE AUTO 2.3 [facility] Lymphocytes/100 WBC (Bld) 17.1 % Low 20 .5 - 60.0 % [facility] MCH (RBC) [Entitic mass] 29.9 pg 26. 7 - 34.0 pg [facility] MCHC (RBC) [Mass/Vol] 35.2 g/dL 29.9 - 35.2 g/dL [facility] MCV (RBC) [Entitic vol] 85 fL 81.0 - 99.0 fL [facility] MONOCYTES ABSOLUTE AUTO 0.[address] [facility] Monocytes/100 WBC (Bld) 5.5 % 1.7 - 12.0 % [facility] NEUTROPHILS ABSOLUTE AUTO 10.3 High [facility] Neutrophils/100 WBC (Bld) 75.7 % High 43 .0 - 75.0 % [facility] Platelet mean volume (Bld) [Entitic vol] 11.8 fL 9.5 - 13.5 fL [facility] TBH EO # 0.1 [facility]H PLT 218 [facility] TB RBC 5.08 [facility] WBC 13.6 High [facility] HCG ( test) Ql (U)o n 12-05-2024 Interpretation and review of laboratory results Abnormal [facility] Preg Test, Ur Positive Negative [facility] US OB TRANSVAGINALon 025 US OB TRANSVAGINAL [...] II, MD, PHD at 06-Dec-2024 08:41:12 AM [facility] [employer] Normal Not Available Comment on above: Order Comment: US OB TRANSVAGINAL No LMP recorded. Urinalysis macro (dipstick) panel (U)on 12-05-2024 Bilirubin, UA Negative Negative - 4(70) +++ mg/dL [facility] Blood, UA Negative Negative - 50 Cj/mcL [facility] Clarity, UA Clear [facility] Color, UA Yellow [facility] Glucose, UA Negative Negative - 2000(110) ++++ mg/dL [facility] Interpretation and review of laboratory results Abnormal [facility] Ketones, UA Negative Negative - 160(16) ++++ mg/dL [facility] Leukocytes, UA Positive Negative - 500+++ Cosmo/mcL [facility] Nitrite, UA Negative Negative - Positive [facility] pH, UA 7 5 - 9 [facility] Protein, UA Positive Negative - 2000(20) ++++ mg/dL [facility] Spec Grav, UA 1.02 1 - 1.03 [facility] Urobilinogen, UA 1.0 0.2 - 12 mg/dL [facility] Beny 12-05-2023 L Specimen: [id number] Received: 12/06/23 Status: FRANNY Re Num: [id number] Spec Type: Surgical Subm Dr: Junito Ortiz [...] Account Attending Physician Kat Bob 27/F LABELL [id number] Junito Ortiz SPEC NUM: [id number] RECD: 12/06/23 STATUS: [facility] NUM: [id number] YURY: 12/05/[address]: Junito Ortiz ENTERED: 12/06/23 [facility] DR: Osiel,Lab SPEC TYPE: Surgical DEPT: [...] healed old injury or irritation -- Specimen: [id number] Received: 12/06/23 Status: FRANNY Rees Num: [id number] Spec Type: Surgical Subm Dr: Junito Ortiz Tissues: A Skin-Other than Cyst, tag, debridement or plastic repair (LT ABDOMEN) B Skin-Other than Cyst, tag, debridement or plastic repair (MIDLINE ABDOMEN) C Skin-Other than Cyst, tag, debridement or plastic repair (POSTERIOR NECK) D Skin-Other than Cyst, tag, debridement or plastic repair (LT BREAST) Procedures: HE/Simba, Gross/Micro L4/4 -- Patient: Kat Bob [id number] (Continued) -- Specimen: [id number] Received: 12/06/23 (Continued) Signed (signatu re on file) John Zamudio MD 12/10/232000 -- Specimen: [id number] Received: 12/06/23 Status: FRANNY Rees Num: [id number] Spec Type: Surgical Subm Dr: Junito Ortiz Tissues: A Skin-Other than Cyst, tag, debridement or plastic repair (LT ABDOMEN) B Skin-Other than Cyst, tag, debridement or plastic repair (MIDLINE ABDOMEN) C Skin-Other than Cyst, tag, debridement or plastic repair (POSTERIOR NECK) D Skin-Other than Cyst, tag, debridement or plastic repair (LT BREAST) Procedures: HE/7, Gross/Micro L4/4 -- Patient: Kat Bob [id number] (Continued) -- Specimen: [id number] Received: 12/06/23 (Continued) Clinical Information Suspicious skin nevus Gross [...] entirely submitted in D1. TW CPT Codes 54364S6 -- (more content not included)... Normal [facility] CORTISOL 24HR URINEon 2022 Cortisol,F,ug/24hr,U 26 ug/24 hr Normal 6-42 [facility] Comment on above: Performed By: #### C ORT24 #### [facility] [address] [address] [address] Lucretia Zamudio Cortisol,F,ug/L,U 10 ug/L Normal Undefined [facility] Comment on above: Performed By: #### C ORT24 #### [facility] [address] ABDOMEN WO/W CONon [...] by: YOVANY CLARK Date: 2022-08-27 08:37 Normal [facility] DHEA SERUMon 08-13-2022 Dehydroepiandrosterone (DHEA) 1255 ng/dL Critically high 31-701 [facility] Comment on above: Result Comment: Age 1 [...] 31 - 701 Performed By: #### D REBAA. #### [facility] [address] [place], [place] [address] Dr. Lucretia Zamudio TESTOSTERONE, FREE,DIRECT, T OTALon 08-06-2022 Free Testosterone(Direct) 2.8 pg/mL Normal 0.0-4.2 [facility] Comment on above: Result Comment: Perf ormed at: BN Performed By: #### T ESTFRD #### [facility] [address] [place], [place] [address] Dr. Lucretia Zamudio Testosterone [Mass/Vol] 42 ng/dL Normal 13-71 T [facility] Comment on above: Result Comment: Perf ormed at: CB Performed By: #### T ESTFRD #### [facility] [address] [place] [address] Dr. Lucretia Zamudio CORTISOL Shiv 08-03-2022 Cortisol AM 23.4 ug/dL Critically high 6.2-19.4 [facility] Comment on above: Performed By: #### P MINI #### [facility] [address] [place] [address] Dr. Lucretia Zamudio DHEA-SULFATEon 08-03-2022 DHEA-Sulfate 312.0 ug/dL Normal 84.8-378.[address] [facility] Comment on above: Performed By: #### L IRINA #### [facility] [address] [place] [address] Dr. Lucretia Zamudio ESTRADIOLon 08-03-2022 Estradiol 198.0 pg/mL Normal [facility] Comment on above: Result Comment: Adul t Female: Follicular phase 12.5 - 166.0 Ovulation phase 85.8 - 498.0 Luteal phase 43.8 - 211.0 Postmenopausal <6.0 - 54.7 1st trimester 215.0 - >4300.0 Dona ECLIA methodology Performed By: #### E NIRALI #### [facility] [address] [place] [address] Dr. Lucretia Zamudio FSHon 08-03-2022 FSH 3.0 mIU/mL Normal [facility] Comment on above: Result Comment: Adul t Female: Follicular phase 3.5 - 12.5 Ovulation phase 4.7 - 21.5 Luteal phase 1.7 - 7.7 Postmenopausal 25.8 - 134.8 Performed By: #### L BCFSH #### [facility] [address] [place] [address] Dr. Lucretia Zamudio LUTEINIZING HORMONE (LH)on 0 08-03-2022 LH 7.7 mIU/mL Normal [facility] Comment on above: Result Comment: Adul t Female: Follicular phase 2.4 - 12.6 Ovulation phase 14.0 - 95.6 Luteal phase 1.0 - 11.4 Postmenopausal 7.7 - 58.5 Performed By: #### L IRINA #### [facility] [address] [place] [address] Dr. Lucretia Zamudio PROGESTERONEon 08-03-2022 Progesterone 0.2 ng/mL Normal [facility] Comment on above: Result Comment: Foll icular phase 0.1 - 0.9 Luteal phase 1.8 - 23.9 Ovulation phase 0.1 - 12.0 First trimester 11.0 - 44.3 Second trimester 25.4 - 83.3 Third trimester 58.7 - 214.0 Postmenopausal 0.0 - 0.1 Performed By: #### P MINI #### [facility] [address] [place] [address] Dr. Lucretia Zamudio FREE T4on 08-02-2022 Free T4 [Mass/Vol] 1.13 ng/dL Normal 0.76-1.46 [facility] Comment on above: Performed By: #### F T4 #### [facility] [address] [place] [address] Dr. Lucretia Zamudio GLYCOHEMOGLOBIN A1Con 2022 ADA RECOMMENDATION SEE BELOW Normal [facility] Comment on above: Result Comment: ADA RECOMMENDED LIMIT 4.0 - 6.0 ADA THERAPEUTIC TARGET < 7.0 ACTION SUGGESTED > 7.0 Performed By: #### P MINI #### [facility] [address] [place] [address] Dr. Lucretia Zamudio Glucose [Mass/Vol] 105 mg/dL Normal The [facility] Comment on above: Performed By: #### P MINI #### [facility] [address] [place] [address] Dr. Lucretia Zamudio HbA1c (Bld) [Mass fraction] 5.3 % Normal 4.5-6.2 [facility] Comment on above: Performed By: #### P MINI #### [facility] [address] [place] [address] Dr. Lucretia Zamudio TSHon 08-02-2022 TSH 1.971 uIU/mL Normal 0.358-3.[address] [facility] Comment on above: Performed By: #### T SH #### [facility] [address] [place] [address] Dr. Lucretia Zamudio US PELVIS AND TRANSVAGon [...] by: GIA PRESCOTT Date: 2022-08-02 18:42 Normal [facility] AMYLASEon 07-12-2022 Amylase [Catalytic activity/Vol] 50 U/L Normal 25-115 [facility] Comment on above: Performed By: #### P ROGES #### [facility] [address] [place] [address] Dr. Lucretia Zamudio CBC AUTO DIFFon 07-12-2022 BASO # 0.1 103/ul Normal 0.0-0.1 [facility] Comment on above: Performed By: #### C BC #### [facility] [address] [place] [address] Dr. Lucretia Zamudio Basophils/100 WBC (Bld) 0.9 % Normal 0.2-2.0 [facility] Comment on above: Performed By: #### C BC #### [facility] [address] [place] [address] Dr. Lucretia Zamudio EO # 0.4 103/ul Normal 0.0-0.7 [facility] Comment on above: Performed By: #### C BC #### [facility] [address] [place] [address] Dr. Lucretia Zamudio Eosinophils/100 WBC (Bld) 3.4 % Normal 0.9-7.0 [facility] Comment on above: Performed By: #### C BC #### [facility] [address] [place] [address] Dr. Lucretia Zamudio Erythrocyte distribution width (RBC) [Ratio] 12.7 % Normal 11.0-15.0 [facility] Comment on above: Performed By: #### C BC #### [facility] [address] [place] [address] Dr. Lucretia Zamudio Hematocrit (Bld) [Volume fraction] 44.1 % Normal 36.0-48.0 [facility] Comment on above: Performed By: #### C BC #### [facility] [address] [place] [address] Dr. Lucretia Zamudio Hemoglobin (Bld) [Mass/Vol] 14.5 g/dL Normal 12.0-16.0 [facility] Comment on above: Performed By: #### C BC #### [facility] [address] [place] [address] Dr. Lucretia Zamudio IG # 0.03 10e3/ul Normal 0.00-0.03 [facility] Comment on above: Performed By: #### C BC #### [facility] [address] [place] [address] Dr. Lucretia Zamudio IG % 0.3 % Normal 0.0-0.5 [facility] Comment on above: Performed By: #### C BC #### [facility] [address] [place] [address] Dr. Lucretia Zamudio LYMPH # 2.9 103/ul Normal 1.2-3.8 [facility] Comment on above: Performed By: #### C BC #### [facility] [address] [place] [address] Dr. Lucretia Zamudio Lymphocytes/100 WBC (Bld) 24.9 % Normal 20.5-60.0 [facility] Comment on above: Performed By: #### C BC #### [facility] [address] [place] [address] Dr. Lucretia Zamudio MANUAL DIFF REQ NO Normal [facility] Comment on above: Performed By: #### C BC #### [facility] [address] [address] [address] Lucretia Zamudio MCH (RBC) [Entitic mass] 28.9 pg Normal 26.7-34.0 [facility] Comment on above: Performed By: #### C BC #### [facility] [address] [address] [address] Lucretia Zamudio MCHC (RBC) [Mass/Vol] 32.9 g/dL Normal 29.9-35.2 [facility] Comment on above: Performed By: #### C BC #### [facility] [address] [place] [address] Dr. Lucretia Zamudio MCV (RBC) [Entitic vol] 87.8 fL Normal 81.0-99.0 [facility] Comment on above: Performed By: #### C BC #### [facility] [address] [place] [address] Dr. Lucretia Zamudio MONO # 0.6 103/ul Normal 0.3-0.8 [facility] Comment on above: Performed By: #### C BC #### [facility] [address] [place] [address] Dr. Lucretia Zamudio Monocytes/100 WBC (Bld) 5.4 % Normal 1.7-12.0 [facility] Comment on above: Performed By: #### C BC #### [facility] [address] [place] [address] Dr. Lucretia Zamudio NEUT # 7.6 103/ul Critically high 1.4-6.5 [facility] Comment on above: Performed By: #### C BC #### [facility] [address] [place] [address] Dr. Lucretia Zamudio Neutrophils/100 WBC (Bld) 65.1 % Normal 43.0-75.0 [facility] Comment on above: Performed By: #### C BC #### [facility] [address] [place] [address] Dr. Lucretia Zamudio Platelet mean volume (Bld) [Entitic vol] 10.0 fL Normal 9.5-13.5 [facility] Comment on above: Performed By: #### C BC #### [facility] [address] [address] [address] Lucretia Zamudio PLT 277 103/ul Normal 150-450 [facility] Comment on above: Performed By: #### C BC #### [facility] [address] [place] [address] Dr. Lucretia Zamudio RBC 5.02 106/ul Normal 4.20-5.40 [facility] Comment on above: Performed By: #### C BC #### [facility] [address] [address] [address] Lucretia Zamudio WBC 11.6 103/ul Critically high 4.0-11.0 [facility] Comment on above: Performed By: #### C BC #### [facility] [address] [place] [address] Dr. Lucretia Zamudio CULTURE URINEon 07-12-2022 CULTURE URINE Culture Observations: LIGHT GROWTH OF MIXED GENITAL SILVIA. NO POTENTIAL PATHOGENS SEEN. Normal [facility] Comment on above: Performed By: #### P MINI #### [facility] [address] [place] [address] Dr. Lucretia Zamudio LIPASEon 07-12-2022 Lipase [Catalytic activity/Vol] 85.0 U/L Normal 73.0-393.0 [facility] Comment on above: Performed By: #### P MINI #### [facility] [address] [place] [address] Dr. Lucretia Zamudio PREG QUANT HCGon 07-12-2022 HCG QUANT 1 mIU/mL Normal [facility] Comment on above: Performed By: #### P MINI #### [facility] [address] [place] [address] Dr. Lucretia Zamudio HCG RANGE SEE BELOW Normal [facility] Comment on above: Result Comment: 5-50 0.2-1 WEEK 50-500 1-2 WEEKS 100-5,000 2-3 WEEKS 500-10,000 3-4 WEEKS 1,000-50,000 4-5 WEEKS 10,000-100,000 5-6 WEEKS 15,000-200,000 6-8 WEEKS 10,000-100,000 2-3 MONTHS Performed By: #### P MINI #### [facility] [address] [place] [address] Dr. Lucretia Zamudio PROF 14(COMP METB)on 023 Albumin [Mass/Vol] 4.0 g/dL Normal 3.4-5.0 [facility] Comment on above: Performed By: #### P MINI #### [facility] [address] [place] [address] Dr. Lucretia Zamudio Albumin/Globulin [Mass ratio] 1.1 {ratio} Normal [facility] Comment on above: Performed By: #### P MINI #### [facility] [address] [place] [address] Dr. Lucretia Zamudio ALP [Catalytic activity/Vol] 98 U/L Normal 46-116 [facility] Comment on above: Performed By: #### P MINI #### [facility] [address] [place] [address] Dr. Lucretia Zamudio ALT [Catalytic activity/Vol] 16 U/L Normal 14-59 [facility] Comment on above: Performed By: #### P MINI #### [facility] [address] [place] [address] Dr. Lucretia Zamudio Anion gap [Moles/Vol] 9.7 mmol/L Normal [facility] Comment on above: Performed By: #### P MINI #### [facility] [address] [place] [address] Dr. Lucretia Zamudio AST [Catalytic activity/Vol] 15 U/L Normal 15-37 [facility] Comment on above: Performed By: #### P MINI #### [facility] [address] [place] [address] Dr. Lucretia Zamudio Bilirubin [Mass/Vol] 0.2 mg/dL Normal 0.2-1.0 [facility] Comment on above: Performed By: #### P MINI #### [facility] [address] [place] [address] Dr. Lucretia Zamudio Calcium [Mass/Vol] 9.5 mg/dL Normal 8.5-10.1 [facility] Comment on above: Performed By: #### P ROGES #### [facility] [address] [address] [address] Lucretia Zamudio Chloride [Moles/Vol] 102 mmol/L Normal 98-107 [facility] Comment on above: Performed By: #### P ROGES #### [facility] [address] [address] [address] Lucretia Zamudio CO2 [Moles/Vol] 31.5 mmol/L Normal 21.0-32.0 [facility] Comment on above: Performed By: #### P ROGES #### [facility] [address] [place] [address] Dr. Lucretia Zamudio Creatinine [Mass/Vol] 0.79 mg/dL Normal 0.55-1.02 [facility] Comment on above: Performed By: #### P ROGES #### [facility] [address] [place] [address] Dr. Lucretia Zamudio EGFR-AF BOLIVIAN >60 Normal >=60 [facility] Comment on above: Performed By: #### P ROGES #### [facility] [address] [place] [address] Dr. Lucretia Zamudio EGFR-NON AF BOLIVIAN >60 Normal >=60 [facility] Comment on above: Performed By: #### P ROGES #### [facility] [address] [place] [address] Dr. Lucretia Zamudio Globulin (S) [Mass/Vol] 3.8 g/dL Normal T [facility] Comment on above: Performed By: #### P ROGES #### [facility] [address] [place] [address] Dr. Lucretia Zamudio Glucose [Mass/Vol] 95 mg/dL Normal 74-106 [facility] Comment on above: Performed By: #### P ROGES #### [facility] [address] [address] [address] Lucretia Zamudio Potassium [Moles/Vol] 4.2 mmol/L Normal 3.5-5.1 [facility] Comment on above: Performed By: #### P MINI #### [facility] [address] [address] [address] Lucretia Zamudio Protein [Mass/Vol] 7.8 g/dL Normal 6.4-8.2 [facility] Comment on above: Performed By: #### P MINI #### [facility] [address] [address] [address] Lucretia Zamudio Sodium [Moles/Vol] 139 mmol/L Normal 136-145 [facility] Comment on above: Performed By: #### P MINI #### [facility] [address] [place] [address] Dr. Lucretia Zamudio Urea nitrogen [Mass/Vol] 12.0 mg/dL Normal 7.0-18.0 [facility] Comment on above: Performed By: #### P MINI #### [facility] [address] [place] [address] Dr. Lucretia Zamudio Urea nitrogen/Creatinine [Mass ratio] 15.2 mg/mg Normal [facility] Comment on above: Performed By: #### P MINI #### [facility] [address] [place] [address] Dr. Lucretia Zamudio UA RANDOMon 07-12-2022 Bilirubin Ql (U) Negative Normal NEGATIVE [facility] Comment on above: Performed By: #### P MINI #### [facility] [address] [place] [address] Dr. Lucretia Zamudio Clarity (U) CLEAR Normal CLEAR [facility] Comment on above: Performed By: #### P MINI #### [facility] [address] [place] [address] Dr. Lucretia Zamudio Color (U) LT. YELLOW Normal YELLOW [facility] Comment on above: Performed By: #### P MINI #### [facility] [address] [place] [address] Dr. Lucretia Zamudio Glucose Ql (U) Negative Normal NEGATIVE [facility] Comment on above: Performed By: #### P MINI #### [facility] [address] [place] [address] Dr. Lucretia Zamudio Hemoglobin Ql (U) Negative Normal NEGATIVE [facility] Comment on above: Performed By: #### P MINI #### [facility] [address] [place] [address] Dr. Lucretia Zamudio Ketones Ql (U) Negative Normal NEGATIVE [facility] Comment on above: Performed By: #### P MINI #### [facility] [address] [place] [address] Dr. Lucretia Zamudio LEUKOCYTES Negative Normal NEGATIVE [facility] Comment on above: Performed By: #### P MINI #### [facility] [address] [place] [address] Dr. Lucretia Zamudio Nitrite Ql (U) Negative Normal NEGATIVE [facility] Comment on above: Performed By: #### P MINI #### [facility] [address] [place] [address] Dr. Lucretia Zamudio pH (U) 7.0 [pH] Normal 5-9 [facility] Comment on above: Performed By: #### P MINI #### [facility] [address] [place] [address] Dr. Lucretia Zamudio SPEC GRAVITY 1.010 Normal 1.005-<=1.02 5 [facility] Comment on above: Performed By: #### P MINI #### [facility] [address] [place] [address] Dr. Lucretia Zamudio UA PROTEIN Negative Normal NEGATIVE/ TRACE [facility] Comment on above: Performed By: #### P MINI #### [facility] [address] [place] [address] Dr. Lucretia Zamudio Urobilinogen Qn (U) 0.2 {Tommie'U}/dL Normal 0.2 - 1. 0 [facility] Comment on above: Performed By: #### P MINI #### [facility] [address] [place] [address] Dr. Lucretia Zamudio Physical Therapy Noteon 05- Physical Therapy Note [id number]#1.00OTGTIFF [facility] Coding Summaryon 08-17-2021 Coding Summary HTMLBase 64 BmojaqvsSEz2oTf+PG hlYWQ+YJ7LSGHgC02q xFSgfT4FS0aJGT2MGS GWWKGKIP2PBX8qtLQ2 GSxgJ9KppmOk HcudtUCaNM92KIs8RV Z7eYogFIifnQ5onMFa U6w8UaBxHY67wN86WO oeULVrNdF1OlMudgtl bWFy W6pdUqYroLUyVqp+PH RhYmxlIHdpZHRoPScx BWCaVpNgyBpoBD3wWf 9yZGVyLWNvbGxhcHNl OiBj w9ikDHSoHSbuSS5rkZ dfZ3DxfAU7RIXcg9s4 Ne36rDX+GHCyOXE1wQ txCLnio995QuUjj5ic IDM3 iRPwGYjrQPG0M09lu3 K3UGRjDAKcBXL6xYQ8 cC9ciOrklenuA9NorR JbReR9UZW2iQWqvU9t bGln xjcmjE9yZfh+Q09ESU 9UKZDAGO8AGre9I1Oa PjwvdHI+EB61QVVlOI 64fNBovFGgk9ddoBq8 JzEw GQNwPUJ0uEtiUMxgb7 XyHEGiK02klYUmv1E7 IGNvbGxhcHNlOyBlbX M7wK9cJBvshteir3ak dzsn Yppvt2cyam76uQ76L4 2aQKuzAXFyBGL9FTQa BHElwNtqmj5tzM7wDv 8+UFmcb4oqg6ngfOk3 IjIw MJHcymJdzHlcTFF7c9 PaGo02A3WfsGtcd8Pr Bhj0jl85wTDeh0K0zE C5FLegJZFhxO4gLQyx ZnQ6 MZJzPbSdzD88bCFcKA mgLc4zaUybaFutBP7c DWNnxbmzNFJyuI0oZB OalMNvdZxyTZ4nLTRr bjtm j368AcRtOZR9ROUjpF VwT1IsqP3nSxPfDARs RQCdF1SkrBYdYVweT3 48CXmgAsP8RGLftpEi Y2Fs FOEyoIboLtM3f8L4Xn 4Ug0OtyiooZMX9SBtm TDYqFuKkVoXhBoB1B1 TxOch7ZKSrxHrgHY1t J3Bh TBKxgxzzmzokhDE2PL GmUODrrT58iALfJKmz Uc3bu6X6t327OKTmZE VkrJ97Wp7mqDwbZPJw dCBU qT3hupluj2vcgfjdWu IgENIdWKf5NSx7WXFw vFppBsTsSMV0OaY9VE N9iFGvmR8erHsyvrsj dG9w Oyc+E73hfC7mJJY0FH S1dwdyRLEtupRpML39 FW17P7AxVswfqPNgkV U+IFZeegPzdPhyTD2w YmFj t1czi3GhIAndV2CtKN KbWRbyLwo3IUAiEHE2 tFG7iH7xAIGiABqsb5 H6mHH2W7HamkMbud8e b2xs CEBcFEnbZ04xgZYuf9 D2GOMvlSV2JVNvmAdb PtIlgJ94Vhf+PGNvbG yxt0NfRvpgq1jcm1gv dGg9 IjMwJSIgdmFsaWduPS S5y2VnUh72K66hPUay ZHRoPSIxNSUiIHZhbG qshe5nxT4tDs7+PGNv bCB3 kLV3mI3dEXJoWtF9DK hkO621KnWfaUAoSieg q9cvg6ahrSv1LxYkWI TcudPrnYjfALQ9k8Ud Lz48 J05nFGsrGCDbVTTfUV SqEUNjzJcfgh1dyK9l Ii8+KB9hz9hcai07dB 48dHI+EMVxYNS3rXys PSdw JKHjkP5lKMieKoO9CZ PuEqIbyH11tDCjIWnx Fn1tbYtcyOopJU3jPT Lxqcwbx685SlScq8mr IDEw oAKbEQggMWR8Z21hf0 M1KZWtESQcPGB6sVF4 uD6geFpkyamppLTzzS sgdmVydGljYWwtYWxp Z246 IHRvcDsnPlBhdGllbn TnGjDpXPm2Q5MdQrh7 PHDdyQgoJA6dmYUxCT ytOv5fyTcnpFyoGY5g NTBp ozblq615BxXxh5hiEX StdARgAChuLVL6B88f s3G2GPSsZUHsJDL7sR Z5pP7dzSajftfmeXIl dDsg dmVydGljYWwtYWxpZ2 46IHRvcDsnPkJpcnRo YHHxyTN7LA40UF21xK Nbf4X7sSG3O0NiOFGj bmct ohsjbPW0BQQjUUThdH 96Ch5ydTppTh9vXJVj XTI7TXRfdGBgX2DzxT 3kHqVkFHPbTUOwN7Fe eHQt MSxbV015DSnbUqP0RR UrdlEuU6VkCBWllBhy VaN8j5Q0Fi4NZ2G5ZP 18PB91sLIxd3O7aJI6 J3Bh FUJpbqhffaqitCR1BD HuJIUswL89Dy3ozIgc Zl8yTCOmNGN4ESGshO LnH4GilL6vWhWaQFFp MDAw O8CawWYhJDueE037DV thKkP9GSDjdbOmT1Wn FTAlmRdqVsJ5q9Y6Op 1MUHh1NU66BO04uWHl c3R5 dBX9M8YeLGNvooegxj cgwSU8QCAbEXXosR18 Zi2xeCkkCk6lFYMwJJ L7QZAqiLXdV6DgvV1z OiAj XPFlAQLkS8MjgOCkQN gjA897WTydBhL0ATOy vkReH0SxBLSsePptNf U7l9R5Dz2WTEDeZU22 IFR5 iDT3RF20CT18N0NgAo wvdGFibGU+PHRhYmxl IHdpZHRoPScxMDAlJy SdmWbfMA7gXq6sRSVr LWNv oWpmtUCgKnGtp1uwBM XrSGhzOH7usPofB2Oh eYJ5RUXig3g6Gx03V5 4uP3HnsNS+PGNvbCB3 aWR0 hC8mXkEcMqF1BWqxY6 48LwRuxMRuLpmwd1na f3wbbPh5VjG6RLZjfu QirVkqAYT9s8CgCc62 Y29s IHdpZHRoPSIxNSUiIH MbnJimzx4loM3rUv3+ VYKjhEK4wML3lB1hYv HsYtV3ROnqF373WyLc cCIv Dyejc1uwl6nwqRd4Nq IwJSIgdmFsaWduPSJ0 n2JcIs14F9WtuJhip8 MkNsh1yj37rDHkq6O7 bGU9 M3DrVCYeikgfdAHtfZ uaIZ2nBCBjqkhaSRSm dV9aESJpT9h1ZzRdFh Y0WLzdB2FipfA0ARVr cHQg NXtjFES4I40oy8V1YJ UnSMDmRMC2dXV2xG7l bGlnbjogbGVmdDsgdm SqjIprKRhpDOcxC290 IHRv lCcnDIDiyC3uWVFhxM CxvYtsFX8aDTMjzltq Kz8GAv0OUgfkZgKGX5 rVWTZBWgV0X4YeNpp6 ZCBz yEtoJP6mkEQhKYbhGr 6muAkokZefHE4wVMLu gazqKMSfxX7cXIUtxF BxyGelBG0zDUYyujsl b250 NhZaAXJ9HMIceIMtM6 KcxL9jPsUvLIQrCFHd B6OrlGEmVWrqD449DX jfHmB6LKBeqgYmX3Wm LWFs lPfzToN9o2F7Hp7oTq 5tSj1mGRh6UU57IU41 qIZdh4F2cFT8N5MhKH InwjnefnzhyVX0VUYz MDUw iX52uBWlRYloYp1zb8 V7s285RJZlZILddG46 By5vnCouEKYtdIHWhM 2ivuqws3biubobWlLq MDAw UPv7MXx2KUWayJncKx RlTEV4MvE1NNK3fRZn aV7qzBztnumsuV1hDo c+AyMrJFMbmwU4P6Co Pjx0 KZVwbTlqGC1vkYXbHU hwNy2bxZybyLtoHQ5d JXQwoifeVBBgoZ9iQA YsvFRcnMjuTW8aKFUe bjtm t570TnAvMPW4OBGpmJ PtP4TavJ8zGmImIUKr YIYmI2TavRLaYHqdW3 33OJtvMvG6ZLBlcrOl Y2Fs NOKjhAfhSaF2z6Q2Kk 1PGW2OGET3X6WfAru6 VHSolBxpLZ2owLMhHF wpZv6jpUqiuFeaHI2e NTBp gzwfOLLwyS4fEGYkzK IbpPbgTE4fWFZobuzj a199SjAqGSP7CSKpzA TwQ6OgeO6iEcCrUHEb MDAw W9EvsVHpFNzvX433VI hkCkQ5KVWyqlIgZ9Ty ONWrgJopBbA6z8U9Fz 3HIKN1tnMpxirmW4T8 cGF0 aWVudDwvdGQ+PC90cj 02U8MlDsvqIeq4HGZx ESC8oGL4bU9tVFFtXK jib4N1mZX7O7TyhuQx ci1j y8wrMJAqONjcE86xdS Bcq2Y8QBAsnKH7KAHz vQjhZpEusG51Bul+PG HfiQrhz9ZhVatcg3sh d2lk aLj5PlDjHGXenwKyuX bpVBJ0t2YqQg28J06d IHdpZHRoPSIzMCUiIH PqqZiidm5ypU5nNh4+ PGNv eFD6eFU1kV2zHoPwMe V4LWzoU148RjPmrRTo Pgzda5hmo7vxuAo8Qw IwJSIgdmFsaWduPSJ0 b3Ai Dc70R7IeeBznx8JrQg z1pq95zSBjh6Q8pBQ1 L4PiNCUsjnurpCHqzK jvSF5tIAWxoyzcUURe aW5n GKTjI6v0VdTvAgQ9YT zeX2DhzvS8CHSfiFDk EUTqdVVWhL7yuisst0 xvcjogIzAwMDAwMDt0 ZXh0 XZCavTaeTtIxQYD9Tz H1GSA5mWFtjR4erNfs ombvhM8hLto+UGh5c2 kgvITyAQ7aaEX2EC09 ZD48 zESuf9A6jXS1S0MbID JwmiofdpebmHG5AROg JZWhcD68Gh2ifJksWu 1pBVOtHNG4ABIkxFJw O2Nv rY8qHpTxBHOuUOOhG8 VfvMCbPJfpQ990ZRaq BtP2WYEkivDjT9RpOV IheMhqIhJ9f7Y8Cj8C SU46 HH54JJ40xGVfx1X5tG O5J0EsLMAhiauoopwl pMJ2BJSnWPVfuZ72Ts 0caMyvCm6kTSYxRMO1 IFRp sEKiX7VffC4oKyMhFD VnUHZkN0KmjCHrIVcx L934BWilYjR4BICoxz XbM5AlYFUwbEfmBtJ4 b3A7 Uj8AVs28GL06DJ75tV Ssv6M7sUC3W7SoOCVy pmbpldilbMQ7VOFvBA RqdP98Gp4qjHpnCx8r ZCAx BKK8KLLipBXgW9BtaX 7iVvQnVMJhDRBmO0Sj qFLqFPraK928QHjqQt J8FUMsmzXfR2UfOUQx aWdu VgQ8b4H2Mn3GDJqlmi p8J4BoZrufdGR+PC90 KUEhWK79cBOmhHLec0 fsuHo5VdSiTUPaOIJ7 eWxl PSd (more content not included)... [facility] Provider [place] 08-17-2021 Provider Orders [id number]#1.00[facility] Consent Formson 08-16-2021 Consent Forms [id number] [facility] Physical Therapy Note [id number]#1.00[facility] Provider Orderson 05-20-2021 Provider Orders [id number]#1.00[facility] Coding Summaryon 04-06-2021 Coding Summary HTMLBase 64 KynehumbJAr4jKq+PG hlYWQ+ZI8NMTCkK89q eAJxkR0CT2hEQF1PGX GKGMDZOR5ZDZ8dvSU2 WQifY4PnblGr VbkznAMgJH09IIc3RY O4mQgxBMejvE6jlDXj O8f3HrPaRE37eV76ZW fnVCUbPiX4DqPgwnzt bWFy P4qqOzTuhNAaCou+PH RhYmxlIHdpZHRoPScx MADcSuIfiPfmWA6xYs 9yZGVyLWNvbGxhcHNl OiBj b7uvEBVbEFdhNV9roI sfY6AtpMZ8DXHqy0p2 Tw91mUC+OPNqEGU7eB ajTMird223SbRrs4jm IDM3 zSQwYNijXLI7K38kn8 Y5VNQcKSQzJWX1pUP8 kF8ocQgosukgA3MsdR DyAvD5RNH4pAMveN9z bGln upbopG5cKib+Q09ESU 1IYYUNEX3WYlv8R9Xr PjwvdHI+HU09XVBdWS 19cFAosJYzs3cngGm3 JzEw SJBkZAI4hFzxDDhah6 ZtDSRoK11azRBne0Q5 IGNvbGxhcHNlOyBlbX T9kW1aXHgpqvqwo0wa dzsn Jqpva4qtbf83cK19E2 1jSOfpCCYlRPI7RZIx DCTwnKtozp0teK1jFi 8+GNogj1arb2lvhMm7 IjIw PYAscgSauTkdYTA1l6 OyKl13N5YxxFqxw9Qd Rid9ji67tDFen4C8bD T3VGkhYECuaL7qUTba ZnQ6 SQQzHhLkiJ65aLDvOY edXu7meDzmjDxnPE9g TXJdqlcyCUUgsY0vZZ BzrOVvkDyxND8dFTGq bjtm q307PsVjWSW7TCYmbD CtO9XbfT7lMuOdTXMa KBImN8IqaWLxMRalP5 33JXvjXoC8EPDtewEc Y2Fs EFVlgIrhTgV6e5H3Se 6Tf4WgkslnKPO7JOfc MTHfMbTcOiBmKiV0S7 GkZkz8UXHhoWkaPA1v J3Bh TFAaozeojoereLR9SD TrBVGumE10kSZaKVbc Vx5yv1P8t650APUePI JnqT83Wb9ehFtoCXUa dCBU kY0sooqce7mtvimmDl WcJJXkRIk8AMw2WOHk wBiqRmHnMXY7IqJ8NS S2mDYkaQ4ryEnsnbtk dG9w Oyc+X96ieQ7uWWX9XZ M3cgkdODYrpnGxFR27 GD27A0TpKuagqMXxzN U+GJIjlsZrfGfbQT2i YmFj x4vjk2YoYIpeI0ZbUK VrOKxiYwo7VXHwOHS9 lBN3vA7pFCQiFNwrm3 F2rJN5O1OgwmVngp7i b2xs LPDmKCooE52lqUJki6 S0EJXfwPB6KTVwlIvs EjHgfX79Gvs+PGNvbG ggw9PlNdrbd6szj1yk dGg9 IjMwJSIgdmFsaWduPS O3e0MqMf23C97gSBfn ZHRoPSIxNSUiIHZhbG saga9leI3kDq5+PGNv bCB3 sSF6uF6lJMJdIiC9UK csM603HcWgpQXzHxoc e4xmx1xsfAq5WcGrYZ XcfzJvdYekCYX2k4Xn Lz48 M03hUCvmGEGgBMEtHA ZhODUvfCedcs7ltE9r Ii8+MR1is7eoua73nU 48dHI+KLZsGMK7oFth PSdw OBKroO5jHYyjWmU2WB QnEuNejF01lQVsKWtd Kp2vwZtllEnsOU6xXL Zrhpwaw902CfYwv6dq IDEw hRTyMQcwJQX1I79ms2 O8DVOsEWKhTIY0zRU0 tD0mwMtuzwkquMOvwM sgdmVydGljYWwtYWxp Z246 IHRvcDsnPlBhdGllbn BwEpDzNJt6I5XbCcl9 PQStaJmuBQ8hdPWlOM cyNj1ukIcuoSqhOO3t NTBp bkoox046QoAwd7nkNQ PgdUUuBHnkVXM8P97e f2I3IPVeQTZpZLD1tJ D5xE2mtIdrafyrmPVn dDsg dmVydGljYWwtYWxpZ2 46IHRvcDsnPkJpcnRo KJAfyNF2KM96FS03yN Erl5C7aTR0O9ZrKDJm bmct jkfpqNZ3VTMlNVLgkG 88Yy4wlHjhQr0oJCUj ZLB2ZLBdzNEuT5BroI 8dJsTiTWBgSJFmS3Ht eHQt EJpoL477RMntPrR8FK HlzdGhC9BqFYZlmWlz XbL9d1Y3To5MZ4T4BX 53MR61dNThl6X2bBK2 J3Bh DJOcuuzttoktsLO1LQ RcDKNfiZ29Jt5pgCvc Mu8uONHlIID2JXPoxH MzI2PgiO1zTdAsGHPc MDAw V8MyyNLtWDssB138PO yuUlZ8BPXeshNhE0Is CDDivMwjPtW8r5F6Jz 4CGWl3JM03HQ12oSBc c3R5 oQK9E5RzHIYfsvckfr ndmHM7FKYmPAWzxP14 Hm1joAuvVm2vGEJtPG W8CRYivNPmV6WxoB2k OiAj ZWFcMYCwI5MrwFMqJD hfK991TTukJoO1JXAy jgYpM4ZvNDGitFyvGn C5e9I8Zj1JWPJmIN80 IFR5 zJE5NJ96VL69W3GkPp wvdGFibGU+PHRhYmxl IHdpZHRoPScxMDAlJy AssHcfCA9wGn9pKGVc LWNv vWzbuBTgPfWnm7pyPR GbDOrnFU3grJduP7Kg sXN2ETKrh2y3Yo92D0 5sD5HkaXW+PGNvbCB3 aWR0 xL4tVnXcNuT8DZesW7 43UhEaiWEwPhwqv9sl f6xmiSy3MpE7AKZruv RkhAcpOAS6f3LqOz64 Y29s IHdpZHRoPSIxNSUiIH FaaFixsj3vsH3zVe7+ EMRmdXU5nXA1tW1pZx KqYzB5HFhjM390JkBk cCIv Hoxqk0buy0tggIz6Wx IwJSIgdmFsaWduPSJ0 i0BsIb75M1ChrUlku1 XyVti4wt56aQGjy8D4 bGU9 E9EgJRBlbbpwmUScbP qsJJ0hPSEdjfpiATKo qS9dJUAxE4u6QuYyXr R3WKixY3FhwcX0IQFm cHQg PTjnGXA2V78io9X8HO JnKKJaBAC9lNO9lE1o bGlnbjogbGVmdDsgdm GccHztLKgfTRnpL643 IHRv jQswFDSxkQ4qPDXefG AtvCxvKB1ySYMrfryf Va2VSz9AHnkvGeUOK7 hNAIFSGhA2Q7YcXas2 ZCBz jBcaCQ3aeQCvLVyuTm 3jeNxmfHeaFF8xSYNv qsswDUVwzR3wPCHhaM QafHqbKG7gTTKsxsqw b250 EdNqJIH1EEIdfGGeH2 AglH4bMrAvUVClIGMl W8PohIWfOEvzM715UP hiLmL3YAGxskVcR1Hc LWFs lYboIvH6l3P2Kv3mMw 2cFc5lHSf0PR30XP17 iDXoi8F7nHI6N6LrUW SoympvitgpgSS7FFNl MDUw uG51tYLdAJygPi3dr7 K3s350WFLpRHJyeF78 Wq9srFiaNQQdfEYGlX 9iyzcqc5ijrgpmAvZr MDAw RKb2KLf4UQGydPbySy KiXZO4UdQ7VXC4bEVq zO6rqJrxbszffW9tYx c+OsNtGTFtzbJ0Y1Kx Pjx0 IHXroEuwLV9ssKOmLL dqSw9hyTctjZheXD8y XSGvnebkUNYpsO1tMI KgzPHsnLxfKX6gUEEd bjtm e356CuHmUGH3WBWukA SmX5XpuS9wKeAuBWAg IYWsA5MeoXKvNOupQ1 07QDfcToU7ZXWxojGn Y2Fs NKUldVaqQeA4h6P1Em 0BBH7NIGG3J4JgKur1 VNFwsYiaON3mtIKcZL faZv5kmFakvSxxES3d NTBp uidzGPJsrW5vXGWzpZ AlbUjlNO0gXLQizecy u745NzNdRLL4WVAinP FaI9HzmY1yIwEyFOFh MDAw K9NwaWLdOEczF398TO mjEqT4ZDNsxaYzQ5Ug MHCsrSwaZkX9y5G6Zq 7EXDV2wdHgocctC1O6 cGF0 aWVudDwvdGQ+PC90cj 26G0EoIrhzRuv1CTKl DXL5lIT5lU1eYKZeSU wsn8D6pAD7E7CjwiZu ci1j d7jdEGFpLMukP94dqM Cbs3S1TUXnzCD4SYJv zWtpPxVziP89Chy+PG EsxLoap2ExDyghz8ta d2lk qEv5PiLoLVZpflNskE yoPNT2r7WyUf83R25k IHdpZHRoPSIzMCUiIH IlyPzyct1fhN4xVt8+ PGNv xPG2lHZ3kF5dJxJxOh Y2IKseI742LcKisLHa Nohjc3xoa8uyxZx6Dk IwJSIgdmFsaWduPSJ0 b3Ai Vv38K1TeyMxtx8WwSk s1ng02wWUnw0P6oYE0 M1VsWTAasonymSKpuD lvYU8dOBPkajokJPUv aW5n RJXoD7c5JsGdYnZ2OS pnU3DhnlN4EXGpjNUj QHVixJMCuL2rkxdbv3 xvcjogIzAwMDAwMDt0 ZXh0 BATgqCurWcShUOL4Hx A1NKB4rDBpzL5moYcg bttqhM5xEjd+UGh5c2 pluMXjDW1jjZD5VR55 ZD48 tPQlk9E3tMC5O9AbTK XnamivlgcjdDS2MRRw ZOQuiH31Yz6wgOvtJy 6uJYSuPLN6EHLdyQPd O2Nv mI5bFsNiJMHlBDLaO5 MyhJRbWSveP803VSza TvS9TZGgcqKgY1DoQD CgxAzsKoE5a4O1Dn5F SU46 TJ42LS29sMAfs3R5iW P4E1TnVJZaiwprxflu sQK9FOPfVQJwuN91Yn 5ktUfaKt1wESBePVB3 IFRp vGFwM6EbcV7zPuWdLL CwITFiJ6WyqOExLAng Y564EEfpLzO7ERPlrq RwF0VlHVAfzHtsSxK7 b3A7 Xh8QNs57NW48VQ86gJ Rrz4G6nFH8W7FbWQQb aqkophpbyFL8TERdUV KgxD37Xf6jtLafZs0w ZCAx TXP1GJFqfDHmQ4JsjF 2kLlWsRNInPIJxU3Ih zKKpNMgdF131RRbqWt X5BLGdcyFpN5UpLBCw aWdu NrF8n7K0Rj2RNCnbey c1Y5UnMiaijQF+PC90 VXUiYK61oPQtoAOls3 vhfGo2DiSeVIFyOFC2 eWxl PSd (more content not included)... [facility] Rad - MRI Reporton 1 Rad - MRI Report [id number]#[id number] [facility] Vital Signs Date Time Vital Sign Value Performing Clinician Facility 03-18-2025 14:29-040 Body mass index (BMI) [Ratio] 33.15 kg/m2 [employer] Work Phone: [facility] 03-18-2025 14:29 Body weight 98.88 kg [employer] Phone: [facility] 03-18-2025 14:29040 Diastolic blood pressure 70 mm[Hg] Junito Angel DO Work Phone: [facility] 03-18-2025 14:29-0400 Systolic blood pressure 122 mm[Hg] Junito Angel DO Work Phone: [facility] 02-18-2025 10:06-0400 Body mass index (BMI) [Ratio] 31.75 kg/m2 Inna Kirkland [employer] Work Phone: [facility] 02-18-2025 10:06-0400 Body weight 94.71 kg Inna Marita [employer] Work Phone: [facility] 02-18-2025 10:06-0400 Diastolic blood pressure 70 mm[Hg] Inna Marita [employer] Work Phone: [facility] 02-18-2025 10:06-0400 Systolic blood pressure 116 mm[Hg] Inna Marita [employer] Work Phone: [facility] 01-14-2025 14:59-0400 Body mass index (BMI) [Ratio] 30.99 kg/m2 Junito Angel DO Work Phone: [facility] 01-14-2025 14:59-0400 Body weight 92.44 kg Junito Angel DO Work Phone: [facility] 01-14-2025 14:59-0400 Diastolic blood pressure 70 mm[Hg] Junito Angel DO Work Phone: [facility] 01-14-2025 14:59-0400 Systolic blood pressure 110 mm[Hg] Junito Angel DO Work Phone: [facility] 12-17-2024 13:39-0400 Body mass index (BMI) [Ratio] 29.73 kg/m2 Junito Angel DO Work Phone: [facility] 12-17-2024 13:39-0400 Body weight 88.68 kg Junito Angel DO Work Phone: [facility] 12-17-2024 13:39-0400 Diastolic blood pressure 62 mm[Hg] Junito Angel DO Work Phone: [facility] 12-17-2024 13:39-0400 Systolic blood pressure 110 mm[Hg] Junito Caballerozio DO Work Phone: [facility] 12-25-2023 12:30-0400 Body height 171.45 cm [employer] Nelida Easterwood Work Phone: [facility] 12-25-2023 12:30-0400 Body mass index (BMI) [Ratio] 31.6 kg/m2 [employer] Nelida Easterwood Work Phone: [facility] 12-25-2023 12:30-0400 Body temperature 97.8 [degF] [employer] Nelida Easterwood Work Phone: [facility] 12-25-2023 12:30-0400 Body weight 92.98 kg [employer] Nelida Easterwood Work Phone: [facility] 12-25-2023 12:30-0400 Diastolic blood pressure 72 mm[Hg] [employer] Nelida Easterwood Work Phone: [facility] 12-25-2023 12:30-0400 Heart rate 69 /min [employer] Nelida Easterwood Work Phone: [facility] 12-25-2023 12:30-0400 Respiratory rate 20 /min [employer] Nelida Easterwood Work Phone: [facility] 12-25-2023 12:30-0400 SaO2% (BldA) [Mass fraction] 99 % [employer] Nelida Easterwood Work Phone: [facility] 12-25-2023 12:30-0400 Systolic blood pressure 116 mm[Hg] [employer] Nelida Easterwood Work Phone: [facility] 11-28-2023 08:58-0400 Body height 171.45 cm [facility] 11-28-2023 08:58-0400 Body mass index (BMI) [Ratio] 31.6 kg/m2 [facility] 11-28-2023 08:58-0400 Body weight 92.98 kg [facility] 09-19-2023 11:00-0400 Body height 171.45 cm [facility] 09-19-2023 11:00-0400 Body mass index (BMI) [Ratio] 31.6 kg/m2 [facility] 09-19-2023 11:00-0400 Body temperature 98 [degF] [facility] 09-19-2023 11:00-0400 Body weight 92.98 kg [facility] 09-19-2023 11:00-0400 Diastolic blood pressure 76 mm[Hg] [facility] 09-19-2023 11:00-0400 Heart rate 80 /min [facility] 09-19-2023 11:00-0400 Respiratory rate 20 /min [facility] 09-19-2023 11:00-0400 SaO2% (BldA) [Mass fraction] 98 % [facility] 09-19-2023 11:00-0400 Systolic blood pressure 118 mm[Hg] [facility] 09-05-2023 09:42-0400 Body height 172.7 cm Ty Stratton PA-C Work Phone: [facility] 09-05-2023 09:42-0400 Body mass index (BMI) [Ratio] 30.79 kg/m2 Ty Stratton PA-C Work Phone: [facility] 09-05-2023 09:42-0400 Body weight 91.85 kg Ty Stratton PA-C Work Phone: [facility] 09-05-2023 09:42-0400 Diastolic blood pressure 77 mm[Hg] Ty Stratton PA-C Work Phone: [facility] 09-05-2023 09:42-0400 Heart rate 73 /min Ty Stratton PA-C Work Phone: [facility] 09-05-2023 09:42-0400 Systolic blood pressure 116 mm[Hg] Ty Stratton PA-C Work Phone: [facility] 06-06-2023 17:00-0500 Body height 171.45 cm Nelida Easterwood Other [address] Other 05-30-2023 08:00-0500 Body height 171.45 cm Nelida Easterwood Other [address] Other 05-30-2023 08:00-0500 Body mass index (BMI) [Ratio] 33.48 kg/m2 Nelida Easterwood Other [address] Other 05-30-2023 08:00-0500 Body temperature 98.2 [degF] Nelida Easterwood Other [address] Other 05-30-2023 08:00-0500 Body weight 98.43 kg Nelida Easterwood Other [address] Other 05-30-2023 08:00-0500 Diastolic blood pressure 80 mm[Hg] Nelida Easterwood Other [address] Other 05-30-2023 08:00-0500 Respiratory rate 20 /min Nelida Easterwood Other [address] Other 05-30-2023 08:00-0500 SaO2% (BldA) [Mass fraction] 99 % Nelida Easterwood Other [address] Other 05-30-2023 08:00-0500 Systolic blood pressure 118 mm[Hg] Nelida Easterwood Other [address] Other 03-05-2023 10:30-0400 Body height 171.45 cm Nelida Easterwood Other [address] Other 03-05-2023 10:30-0400 Body mass index (BMI) [Ratio] 33.33 kg/m2 Nelida Easterwood Other [address] Other 03-05-2023 10:30-0400 Body temperature 97 [degF] Nelida Easterwood Other [address] Other 03-05-2023 10:30-0400 Body weight 97.98 kg Nelida Easterwood Other [address] Other 03-05-2023 10:30-0400 Diastolic blood pressure 60 mm[Hg] Nelida Easterwood Other [address] Other 03-05-2023 10:30-0400 Respiratory rate 20 /min Nelida Easterwood Other [address] Other 03-05-2023 10:30-0400 SaO2% (BldA) [Mass fraction] 99 % Nelida Easterwood Other [address] Other 03-05-2023 10:30-0400 Systolic blood pressure 112 mm[Hg] Nelida Easterwood Other [address] Other 02-21-2023 11:00-0400 Body height 171.45 cm Nelida Easterwood Other [address] Other 02-21-2023 11:00-0400 Body mass index (BMI) [Ratio] 33.48 kg/m2 Nelida Easterwood Other [address] Other 02-21-2023 11:00-0400 Body temperature 97.9 [degF] Nelida Mckenzie Other [address] Other 02-21-2023 11:00-0400 Body weight 98.43 kg Nelida Mckenzie Other [address] Other 02-21-2023 11:00-0400 Diastolic blood pressure 68 mm[Hg] Nelida Mckenzie Other [address] Other 02-21-2023 11:00-0400 Respiratory rate 20 /min Nelida Mckenzie Other [address] Other 02-21-2023 11:00-0400 SaO2% (BldA) [Mass fraction] 98 % Nelida Mckenzie Other [address] Other 02-21-2023 11:00-0400 Systolic blood pressure 112 mm[Hg] Nelida Mckenzie Other [address] Other Encounters Encounter Date Encounter Type Care Provider Facility Start: 03-18-2025 End: 03-18-2025 flow sheet Junito Bañueloso DO Work Phone: [facility] Comment on above: Second trimester pre gnancy ([facility]); 24 weeks gestation of ([facility]); Diabetes mellitus screening Start: 03-18-2025 End: 03-18-2025 ambulatory JUNITO ANGEL Not Available Start: 02-18-2025 End: 02-18-2025 flow sheet Inna Kirkland [employer] Work Phone: [facility] Comment on above: Nausea and vomiting in ([facility]) (Primary Dx); Second trimester ([facility]); 20 weeks gestation of ([facility]); Elevated heart rate with elevated blood pressure without diagnosis of hypertension Start: 02-18-2025 End: 02-18-2025 ambulatory INNA KIRKLAND Not Available Start: 02-18-2025 End: 02-18-2025 ambulatory JUNITO ANGEL Not Available Start: 01-14-2025 End: 01-14-2025 Patient encounter procedure Junito Angel DO Work Phone: [facility] Start: 01-14-2025 End: 01-14-2025 Periodic preventive med est patient 18-39 yrs Junito Angel DO Work Phone: [facility] Comment on above: 15 weeks gestation o f ([facility]); Second trimester ([facility]); Gastroesophageal reflux disease with esophagitis, unspecified whether hemorrhage; Screening, , for anatomic survey ([facility]); Exposure to STD; Vaginal discharge; Well woman exam with routine gynecological exam; Nausea and vomiting in ([facility]); related fatigue in second trimester ([facility]); Insomnia, unspecified type; Other migraine with status migrainosus, not intractable Start: 01-14-2025 End: 01-14-2025 ambulatory JUNITO ANGEL Not Available Start: 01-14-2025 End: 01-14-2025 Bamboo flowsheet Junito Angel DO Work Phone: [facility] Start: 01-14-2025 End: 01-19-2025 Bamboo flowsheet Junito Angel DO Work Phone: [facility] Start: 01-14-2025 End: 01-19-2025 Clinisync Result Encounter Junito Angel DO Work Phone: [facility] External Department Unsolicited Start: 01-14-2025 End: 01-15-2025 External Result Encounter Junito Angel DO Work Phone: [facility] External Department Unsolicited Start: 12-17-2024 End: 12-17-2024 Bamboo flowsheet Junito Angel DO Work Phone: [facility] Start: 12-17-2024 End: 12-17-2024 Bamboo flowsheet Junito Angel DO Work Phone: [facility] Start: 12-17-2024 End: 12-17-2024 flow sheet Junito Angel DO Work Phone: [facility] Comment on above: 11 weeks gestation o f ([facility]); First trimester ([facility]); Nausea and vomiting in ([facility]); Gastroesophageal reflux disease with esophagitis, unspecified whether hemorrhage; Meconium aspiration in child of prior , currently , unspecified trimester ([facility]) Start: 12-17-2024 End: 12-17-2024 ambulatory JUNITO ANGEL Not Available Start: 12-10-2024 End: 12-10-2024 Clinisync Result Encounter Junito Angel DO Work Phone: [facility] Unsolicited Start: 12-10-2024 End: 12-10-2024 Clinisync Result Encounter Junito Angel DO Work Phone: [facility] Unsolicited Start: 12-05-2024 End: 12-05-2024 Office outpatient visit 5 minutes [facility] Angel Nurse [facility] Comment on above: GA: [id number] Start: 12-05-2024 End: 12-05-2024 ambulatory JUNITO ANGEL Not Available Start: 07-03-2024 End: 07-04-2024 Refill Ty Stratton PA-C Work Phone: [facility] Comment on above: Migraine without aur a and without status migrainosus, not intractable Start: 12-25-2023 End: 12-25-2023 ambulatory YANELI Mckenzie Work Phone: [facility] Work Phone: Start: 12-25-2023 End: 12-25-2023 Patient encounter procedure YANELI Mckenzie Work Phone: [facility] Work Phone: Start: 12-17-2023 Non-patient / Non-visit [employer] Sharifa Mckenzie Work Phone: [facility] [place] Work Phone: Start: 12-05-2023 End: 12-05-2023 ambulatory [employer] Nelida Mckenzie Work Phone: [facility] Work Phone: Start: 12-05-2023 End: 12-05-2023 Departed Referred YANELI Mckenzie Work Phone: [facility] Start: 11-28-2023 End: 11-28-2023 ambulatory [facility] Work Phone: Start: 11-28-2023 End: 11-28-2023 Patient encounter procedure [facility] Gastroenterology Work Phone: Start: 09-19-2023 End: 09-19-2023 ambulatory [facility] Work Phone: Start: 09-19-2023 End: 09-19-2023 Patient encounter procedure [facility] Work Phone: Start: 09-05-2023 End: 09-05-2023 ambulatory TY STRATTON [facility] Start: 09-05-2023 End: 09-05-2023 Office outpatient visit 25 minutes Ty Stratton PA-C Work Phone: [facility] Comment on above: Migraine without aur a and without status migrainosus, not intractable (Primary Dx); Vestibular migraine; Pineal gland cyst; Hx of concussion; Daytime somnolence Start: 09-03-2023 Non-patient / Non-visit [facility] Professional [employer] Work Phone: Start: 07-16-2023 End: 07-16-2023 ambulatory Neilda Mckenzie Other [address] Other Start: 07-16-2023 Telephone encounter Nelida Easterwood [facility] Comment on above: WEENING OFF QULIPTA Start: 07-09-2023 Patient encounter procedure [facility]- Start: 06-06-2023 End: 06-06-2023 ambulatory Nelida Easterwood Other [address] Other Start: 06-06-2023 PF ONLINE E/M PHY [facility] - Nelida Easterwood [facility] Start: 06-06-2023 Telephone encounter Nelida Easterwood [facility] Start: 05-30-2023 End: 05-30-2023 ambulatory Nelida Easterwood Other [address] Other Start: 05-30-2023 Office outpatient vi sit 25 minutes Nelida Easterwood [facility] Start: 05-25-2023 End: 05-25-2023 ambulatory Nelida Easterwood Other [address] Other Start: 05-25-2023 Telephone encounter Nelida Easterwood [facility] Start: 05-03-2023 End: 05-03-2023 ambulatory Nelida Easterwood Other [address] Other Start: 05-03-2023 Telephone encounter Nelida Easterwood [facility] Start: 03-05-2023 End: 03-05-2023 ambulatory Nelida Easterwood Other [address] Other Start: 03-05-2023 Office outpatient vi sit 25 minutes Nelida Easterwood [facility] Start: 02-21-2023 End: 02-21-2023 ambulatory Nelida Easterwood Other [address] Other Start: 02-21-2023 Office outpatient vi sit 40 minutes Nelida Easterwood [facility] Start: 02-21-2023 Telephone encounter Nelida Mckenzie [facility] [place] Start: 11-01-2022 End: 11-01-[address] JUNITO ORTIZ . Facility:[facility] Start: 09-06-2022 End: 09-06-[address] JUNITO ORTIZ . Facility:[facility] Start: 08-26-2022 End: 08-27-[address] JUNITO ORTIZ . Facility:[facility] Start: 08-02-2022 End: 08-03-[address] JUNITO ORTIZ . Facility:[facility] Start: 07-12-2022 End: 07-13-[address] GIA ROMERO Facility: Procedures Date Procedure Procedure Detail Performing Clinician Start: 03-18-2025 Urnls dip stick/tabl et rgnt non-auto w/o micrscp Inna Kirkland [employer] Work Phone: Start: 02-18-2025 Urnls dip stick/tabl et rgnt non-auto w/o micrscp Inna Kirkland [employer] Work Phone: Start: 01-14-2025 RECURRENT VAGINITIS (HTRX) Junito Angel DO Work Phone: Start: 01-14-2025 Urnls dip stick/tabl et rgnt non-auto w/o micrscp Junito Angel DO Work Phone: Start: 01-14-2025 IGP,APTIMA HPV,AGE GDLN Junito Angel DO Work Phone: Start: 12-17-2024 Urnls dip stick/tabl et rgnt non-auto w/o micrscp Junito Angel DO Work Phone: Start: 12-10-2024 ALL CBC WITH AUTO DIFF Junito Angel DO Work Phone: Start: 12-05-2024 End: 12-05-2024 Urnls dip stick/tablet rgnt non-auto w/o micrscp Junito Angel DO Work Phone: Start: 03-13-2024 Follow-up visit Follow-up TY STRATTON Start: 05-23-2023 Adult depression screening assessment Viviane Shaheen Plan of Treatment Date Care Activity Detail Author Start: 04-15-2025 End: 04-15-2025 Patient encounter procedure 04/15/2025 1:00 PM EDT Routine [facility] [address] [place] [id number] Junito Ortiz, DO [address] [place] [address] [facility] Start: 03-18-2025 End: 03-18-2025 Patient encounter procedure 03/18/2025 2:20 PM EDT Routine [facility] [address] [place] [phone] Junito Ortiz, DO [address] [place] [address] [facility] Start: 03-18-2025 End: 03-18-2026 CBC panel - Blood by Automated count CBC Lab Routine Diabetes mellitus screening Expected: 03/18/2025 (Approximate), Expires: 03/18/2026 [facility] Work Phone: Comment on above: Expected: 03/18/2025 (Approximate), Expires: 03/18/2026 Start: 03-18-2025 End: 03-18-2026 Measurement of glucose 1 hour after glucose challenge for glucose tolerance test Glucose tolerance, 1 hour Lab Routine Diabetes mellitus screening Expected: 03/18/2025 (Approximate), Expires: 03/18/2026 [facility] Comment on above: Expected: 03/18/2025 (Approximate), Expires: 03/18/2026 Start: 02-23-[address] [facility] Start: 02-18-2025 End: 02-18-2026 12 lead ECG ECG 12 lead unit performed ECG Routine Elevated heart rate with elevated blood pressure without diagnosis of hypertension Expected: 02/18/2025 (Approximate), Expires: 02/18/2026 [facility] Work Phone: Comment on above: Expected: 02/18/2025 (Approximate), Expires: 02/18/2026 Start: 02-18-2025 End: 02-18-2025 Patient encounter procedure [facility] Start: 02-18-2025 End: 02-18-2025 Professional / ancillary services management [facility] Start: 01-14-2025 End: 01-14-2025 Patient encounter procedure 01/14/2025 2:40 PM EDT Routine [facility] [address] [place] [address] Junito Ortiz, DO [address] [place] [address] [facility] Start: 01-14-2025 End: 03-17-2025 Alpha fetoprotein, maternal Alpha fetoprotein, maternal Lab Routine Second trimester ([facility]) Expected: 01/14/2025 (Approximate), Expires: 03/17/2025 [facility] Comment on above: Expected: 01/14/2025 (Approximate), Expires: 03/17/2025 Start: 01-14-2025 End: 04-16-2025 US for US OB 14+ weeks anatomy scan Imaging Routine Screening, , for anatomic survey ([facility]) Expected: 01/14/2025, Expires: 04/16/2025 [facility] Comment on above: Expected: 01/14/2025 , Expires: 04/16/2025 Start: 12-17-2024 End: 12-17-2024 Patient encounter procedure [facility] Comment on above: Arrived Start: 12-05-2024 End: 12-05-2025 ABO/Rh ABO/Rh Lab Routine Missed menses , unspecified gestational age ([facility]) Expected: 12/05/2024 (Approximate), Expires: 12/05/2025 [facility] Comment on above: Expected: 12/05/2024 (Approximate), Expires: 12/05/2025 Start: 12-05-2024 End: 12-05-2025 Blood type and Indirect antibody screen panel - Blood Type and screen Lab Routine Missed menses , unspecified gestational age ([facility]) Expected: 12/05/2024 (Approximate), Expires: 12/05/2025 [facility] Work Phone: Comment on above: Expected: 12/05/2024 (Approximate), Expires: 12/05/2025 Start: 12-05-2024 End: 12-05-2025 Drugs of abuse panel - Urine by Screen method Rapid drug screen, urine Lab Routine , unspecified gestational age ([facility]) Encounter for supervision of normal first in first trimester ([facility]) Expected: 12/05/2024 (Approximate), Expires: 12/05/2025 [facility] Comment on above: Expected: 12/05/2024 (Approximate), Expires: 12/05/2025 Start: 12-05-2024 End: 12-05-2025 Transferrin [Mass/volume] in Serum or Plasma Transferrin Lab Routine Dizzy Lightheaded Expected: 12/05/2024 (Approximate), Expires: 12/05/2025 [facility] Comment on above: Expected: 12/05/2024 (Approximate), Expires: 12/05/2025 Start: 09-04-2024 Adult BMI Screening Adult BMI Screen ing [facility] Start: 09-04-2024 Tobacco Screening Tobacco Screening [facility] Start: 05-23-2024 Adult BMI Screening Adult BMI Screen ing [facility] Start: 05-23-2024 Depression Screening Depression Scre ening [facility] Start: 05-23-2024 Tobacco Screening Tobacco Screening [facility] Start: 02-24-2024 Influenza vaccination Influenza Vacc ine [facility] Start: 12-12-2023 End: 12-12-2023 Patient encounter procedure 12/12/2023 9:00 AM EDT Office Visit [facility] [address] [place] [address] Ty Stratton, PA-C [address] [facility] [place] [address] [facility] Start: 12-06-2023 [...] Endocrinology [address] [place] [address] Jani Mir MD [address] [place] [address] [facility] Adult Endocrinology Start: 10-24-2023 End: 10-24-2023 Patient encounter procedure 10/24/2023 10:00 AM EDT Office Visit [facility] Medicine [address] [phone] Megan Lopez APRN-EDUCATION CONSULTANT [address] [address] [facility] Start: 09-05-2023 End: 09-05-2023 Patient encounter procedure 09/05/2023 9:30 AM EDT Office Visit [facility] [address] [place] [phone] Ty Stratton, PAAzucenaC [address] [place] [phone] [facility] Start: 08-01-2023 End: 08-01-2023 Patient encounter procedure 08/01/2023 10:30 AM EST Office Visit [facility] Adult Endocrin[facility] [address] [place] [address] Jani Mir MD [address] [place] [address] [facility] Adult Endocr[facility] Start: 02-23-2023 Influenza vaccination Influenza Vacc ine [facility] Start: 12-19-2016 Screening for malignant neoplasm of cervix Pap Smear [facility] Start: 12-19-2014 DTaP,Tdap and Td Vaccines (1 - Tdap) DTaP,Tdap and Td Vaccines (1 - Tdap) [facility] Start: 12-19-2013 Adult BMI Follow Up Plan Adult BMI Follow Up Plan [facility] Bacteria identified in Urine by Culture Urine culture Microbiology Routine Missed menses Ordered: 12/05/2024 [facility] Comment on above: Ordered: 12/05/2024 CBC W Auto Differential panel - Blood CBC and differential Lab Routine Missed menses , unspecified gestational age ([facility]) Ordered: 12/05/2024 [facility] Comment on above: Ordered: 12/05/2024 CHLAMYDIA TRACHOMATI S (GENITO/STI) CHLAMYDIA TRACHOMATIS (GENITO/STI) Lab Routine Exposure to STD Ordered: 01/14/2025 [facility] Comment on above: Ordered: 01/14/2025 Cytology Cervical or vaginal smear or scraping study Pap Smear Pathology and Cytology Routine Well woman exam with routine gynecological exam Ordered: 01/14/2025 [facility] Comment on above: Ordered: 01/14/2025 Ferritin [Mass/volum e] in Serum or Plasma Ferritin Lab Routine Dizzy Lightheaded Ordered: 12/05/2024 [facility] Comment on above: Ordered: 12/05/2024 Hemoglobin A1c/Hemoglobin.total in Blood Hemoglobin A1c Lab Routine Missed menses , unspecified gestational age ([facility]) Ordered: 12/05/2024 [facility] Comment on above: Ordered: 12/05/2024 Hepatitis B virus surface Ag [Presence] in Serum or Plasma by Immunoassay Hepatitis B surface antigen Lab Routine Missed menses , unspecified gestational age ([facility]) Ordered: 12/05/2024 [facility] Comment on above: Ordered: 12/05/2024 Hepatitis C virus Ab [Presence] in Serum or Plasma by Immunoassay Hepatitis C antibody Lab Routine Missed menses , unspecified gestational age ([facility]) Ordered: 12/05/2024 [facility] Comment on above: Ordered: 12/05/2024 HIV-1/HIV-2 antigen/antibody combination immunoassay HIV-1 and HIV-2 antibodies Lab Routine Missed menses , unspecified gestational age ([facility]) Ordered: 12/05/2024 [facility] Comment on above: Ordered: 12/05/2024 Neisseria gonorrhoea e DNA [Presence] in Unspecified specimen by HANNAH with probe detection Neisseria gonorrhea DNA probe, direct Lab Routine Exposure to STD Ordered: 01/14/2025 [facility] Comment on above: Ordered: 01/14/2025 Reagin Ab [Presence] in Serum by RPR RPR Lab Routine Missed menses , unspecified gestational age ([facility]) Ordered: 12/05/2024 [facility] Comment on above: Ordered: 12/05/2024 Rubella antibody, IgG Rubella an tibody, IgG Lab Routine Missed menses , unspecified gestational age ([facility]) Ordered: 12/05/2024 [facility] Comment on above: Ordered: 12/05/2024 SURESWAB(R) ADVANCED VAGINITIS PLUS, TMA SURESWAB(R) ADVANCED VAGINITIS PLUS, TMA Pathology and Cytology Routine Vaginal discharge Ordered: 01/14/2025 [facility] Work Phone: Comment on above: Ordered: 01/14/2025 Immunizations Immunization Date Immunization Notes Care Provider Federico boo 02-05-2020 tetanus and diphtheria toxoids, adsorbed, preservative free, for adult use (5 Lf of tetanus toxoid and 2 Lf of diphtheria toxoid) [facility] 02-05-2020 tetanus toxoid, reduced diphtheria toxoid, and acellular pertussis vaccine, adsorbed Neilda Mckenzie Other [address] Other Payers Date Payer Category Payer Self-pay [id number] 2023 Managed Care Other (unspecified) [place] [address] [id number] 2023 Private Health Insurance [id number] 2020 Private Health Insurance [facility] [id number] 1995 Unknown [id number] [id number]. 593 1995 Unknown [id number] 2.16.840.1.420164.3.579.2. 593 1995 Unknown [id number] 2.16.840.1.847657.3.579.2. 593 1995 Unknown [id number] 2.16.840.1.964432.3.579.2. 593 1995 Unknown [id number] 2.16.840.1.910862.3.579.2. 593 1995 Unknown [id number] 2.16.840.1.330516.3.579.2. 1286 1995 Unknown [id number] 2.16.840.1.473263.3.579.2. 1259 1995 Unknown [id number] 2.16.840.1.228056.3.579.2. 1259 1995 Unknown [id number] 2.16.840.1.024258.3.579.2. 1259 1995 Unknown [id number] 2.16.840.1.884446.3.579.2. 1259 1995 Unknown [id number] 2.16.840.1.807635.3.579.2. 1259 1995 Unknown [id number] 2.16.840.1.857014.3.579.2. 1259 1995 Unknown [id number] 2.16.840.1.837945.3.579.2. 1259 1995 Unknown [id number] 2.16.840.1.773078.3.579.2. 1259 1959 Private Health Insurance [id number] Private Health Insurance [facility] [id number] Unknown [id number] [id number]. 531 Social History Date Type Detail Facility Start: 12-19-2019 End: 11-27-2024 Sex Assigned At [facility] Start: 09-03-2023 End: 11-07-2023 Tobacco smoking status NHIS Never smoked tobacco (finding) [facility] Start: 1995 Sex Assigned At Female [facility] Start: 03-21-2023 End: 11-07-2023 Tobacco use and exposure Smokeless tobacco non-user [facility] Start: 09-05-2023 End: 03-18-2025 Alcoholic beverage intake Current drinker of alcohol (finding) [facility] Start: 12-19-2019 End: 11-27-2024 History of Social function [facility] How often to you hav e a drink containing alcohol? Never [facility] Average Number of Drinks Not on file [facility] Start: 03-21-2023 Alcohol Comment social [facility] Start: 1995 Sex assigned at Not on file [facility] Start: 12-17-2019 Sex Female (finding) [facility] Start: 11-07-2023 Alcohol Comment One drink per month [facility] Start: 04-20-2025 [facility] Clinical Notes 02-04-2020 to 03-18-2025 Ariadnajessica Bowden, MEL - 03/18/2025 2:20 PM Kranthi Kirkland NP - 02/18/2025 10:00 AM Brooke Simmons, LYNN - 01/14/2025 2:40 PM Brooke Simmons, LYNN - 12/17/2024 1:00 PM EDT Note Date & Type Note Facility 03-18-2025 History of Presen t illness Narrative Reason for Appointment: Patient ID: Kat Bob is a 29 y.o. female who presents for Routine Visit Patient presents today for Return OB appointment. MEDICATIONS Current Outpatient Medications Medication Instructions Ambien 10 mg, Oral, Nightly PRN Doxylamine Succinate, Sleep, (UNISOM PO) Take by mouth magnesium 100 MG tablet metoclopramide (REGLAN) 10 mg, Oral, 3 times daily before meals, Take 1 tablet by mouth 30 minutes prior to meals 3 times daily as needed for nausea. omeprazole (PRILOSEC) 40 mg, Oral, Daily before breakfast, Do not crush or chew. ondansetron (ZOFRAN) 4 mg, Oral, Every 6 hours PRN, Take 1 tablet by mouth every 6 hours as needed for nausea. pantoprazole (PROTONIX) 40 mg, Oral, Daily before breakfast, Do not crush, chew, or split. Probiotic Product (PROBIOTIC ADVANCED PO) Probiotic promethazine (PHENERGAN) 12.5 mg, Oral, Every 8 hours PRN, Take 1 tablet by mouth every 6 hours as needed for nausea. pyridoxine (VITAMIN B-6) 25 mg, Daily ALLERGIES Allergies Allergen Reactions Pollen Extract Other Reaction(s): Unknown Reaction PROBLEMS Active Ambulatory Problems Diagnosis Date Noted Positive urine test ([facility]) 12/03/2024 Resolved Ambulatory Problems Diagnosis Date Noted [...] Partha Diabetes Mother's Brother Ramses SURGICAL HISTORY History reviewed. No pertinent surgical history. REVIEW OF SYSTEMS Review of Systems: Review of Systems Constitutional: Negative. HENT: Negative. Eyes: Negative. Respiratory: Negative. Cardiovascular: Negative. Gastrointestinal: Positive for nausea. Genitourinary: Negative. Musculoskeletal: Negative. Skin: Negative. Neurological: [...] nursing note reviewed. Exam conducted with a infrastructure manager present. Vitals: Estimated body mass index is 33.15 kg/m as calculated from the following: Height as of 01/23/24: 5' 8 . Weight as of this encounter: 218 lb. BP: 122/70 Patient's last menstrual period was 09/28/2024. ASSESSMENT & PLAN ICD-10-CM 1. Second trimester ([facility]) Z34.92 POCT urinalysis dipstick manually resulted 2. 24 weeks gestation of ([facility]) Z3A.24 3. Diabetes mellitus screening Z13.1 CBC Glucose tolerance, 1 hour CBC Glucose tolerance, 1 hour Return OB: Patient presents today for a routine obstetrics appointment. Patient is currently 24w3d . Patient states she is doing well but has complaints of being tired due to current . Patient has verbalizes frequent movement. labor precautions was discussed/given and patient was instructed to perform kick counts three times a day. Patient with continued complaints of nausea currently taking Reglan and Vitamin B 6. She has also tried zofran and phenergan but nausea has persisted. She continues to gain weight, is eating and drinking protein and does not want to trial the Zofran pump at this time. Orders Placed This Encounter Procedures CBC Glucose tolerance, 1 hour POCT urinalysis dipstick manually resulted Follow Up: Patient is to return to office in 4 week for routine OB appointment. Documented by Ariadna Bowden MA on behalf of: Junito Ortiz DO documented in this encounter [facility] 02-18-2025 History of Presen t illness Narrative Reason for Appointment: Patient ID: Kat Bob is a 29 y.o. female who presents for Routine Visit Patient presents today for Return OB appointment. MEDICATIONS Current Outpatient Medications Medication Instructions Ambien 10 mg, Oral, Nightly PRN Doxylamine Succinate, Sleep, (UNISOM PO) Take by mouth magnesium 100 MG tablet metoclopramide (REGLAN) 10 mg, Oral, 3 times daily before meals, Take 1 tablet by mouth 30 minutes prior to meals 3 times daily as needed for nausea. omeprazole (PRILOSEC) 40 mg, Oral, Daily before breakfast, Do not crush or chew. ondansetron (ZOFRAN) 4 mg, Oral, Every 6 hours PRN, Take 1 tablet by mouth every 6 hours as needed for nausea. pantoprazole (PROTONIX) 40 mg, Oral, Daily before breakfast, Do not crush, chew, or split. Probiotic Product (PROBIOTIC ADVANCED PO) Probiotic promethazine (PHENERGAN) 12.5 mg, Oral, Every 8 hours PRN, Take 1 tablet by mouth every 6 hours as needed for nausea. pyridoxine (VITAMIN B-6) 25 mg, Daily ALLERGIES Allergies Allergen Reactions Pollen Extract Other Reaction(s): Unknown Reaction PROBLEMS Active Ambulatory Problems Diagnosis Date Noted Positive urine test ([facility]) 12/03/2024 Resolved Ambulatory Problems Diagnosis Date Noted No Resolved Ambulatory Problems Past Medical History: Diagnosis Date Anxiety 2020 Head injury 2001 Migraine 2021 Urinary tract infection 2021 Uterine prolapse 2020 HISTORY PAST MEDICAL HISTORY SOCIAL HISTORY Past [...] Eyes: Negative. Respiratory: Negative. Cardiovascular: Negative. Gastrointestinal: Positive for nausea. Genitourinary: Negative. Musculoskeletal: Negative. Skin: Negative. Neurological: [...] nursing note reviewed. Exam conducted with a infrastructure manager present. Vitals: Estimated body mass index is 31.75 kg/m as calculated from the following: Height as of 01/23/24: 5' 8 . Weight as of this encounter: 208 lb 12.8 oz. BP: 116/70 Patient's last menstrual period was 09/28/2024. ASSESSMENT & PLAN ICD-10-CM 1. Nausea and vomiting in ([facility]) O21.9 promethazine (Phenergan) 12.5 MG tablet 2. Second trimester ([facility]) Z34.92 POCT urinalysis dipstick manually resulted 3. 20 weeks gestation of ([facility]) Z3A.20 POCT urinalysis dipstick manually resulted 4. Elevated heart rate with elevated blood pressure without diagnosis of hypertension R00.9 ECG 12 lead unit performed R03.0 Return OB: Patient presents today for a routine obstetrics appointment. Patient is currently 20w3d . Patient states she is doing well but has complaints of being tired due to current . Patient has verbalizes frequent movement. labor precautions was discussed/given and patient was instructed to perform kick counts three times a day. Orders Placed This Encounter Procedures POCT urinalysis dipstick manually resulted ECG 12 lead unit performed Follow Up: Patient is to return to office in 4 week for routine OB appointment. Patient reports continued Nausea but manageable, she would like to trial phenergan to see if this improves her symptoms and she is advised not to take the phenergan and zofran simultaneously. She also reports elevated heart rate at times while working and going from a seated position to standing position. 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 She is going to increase her fluid intake, she denies any chest pain or shortness of breath. An EKG has been ordered should symptoms continue. She also has complaints of SI joint pain and discomfort down the left leg. She did have sciatica with her last and PT helped with this in the past. We will refer her to PT as well. Documented by Inna Kirkland NP on behalf of: Inna Kirkland NP documented in this encounter [facility] 01-14-2025 History of Presen t illness Narrative Reason for Appointment: Patient ID: Kat Bob is a 29 y.o. female who presents for Routine Visit Patient presents today for Annual Exam., STD Check., and Return OB appointment. MEDICATIONS Current Outpatient Medications Medication Instructions Doxylamine Succinate, Sleep, (UNISOM PO) Take by mouth magnesium 100 MG tablet [...] Problems Diagnosis Date Noted Positive urine test ([facility]) 12/03/2024 Resolved Ambulatory Problems Diagnosis Date Noted [...] Partha Diabetes Mother's Brother Ramses SURGICAL HISTORY History reviewed. No pertinent surgical history. REVIEW OF SYSTEMS Review of Systems: Review of Systems Constitutional: Negative. HENT: Negative. Eyes: Negative. Respiratory: Negative. Cardiovascular: Negative. Gastrointestinal: Negative. Genitourinary: Negative. Musculoskeletal: Negative. Skin: Negative. Neurological: Negative. All other systems reviewed and are negative. Hematological: Negative. Endocrine: Negative. Allergic/Immunologic: Negative. OBJECTIVE Objective: Physical Exam Constitutional: Appearance: Normal appearance. She is well-developed. Genitourinary: Vulva normal. Breasts: Breasts are soft. Right: Normal. Left: Normal. Cardiovascular: Rate and Rhythm: Normal rate and [...] nursing note reviewed. Exam conducted with a infrastructure manager present. Vitals: Estimated body mass index is 30.99 kg/m as calculated from the following: Height as of 01/23/24: 5' 8 . Weight as of this encounter: 203 lb 12.8 oz. BP: 110/70 Patient's last menstrual period was 09/28/2024. ASSESSMENT & PLAN ICD-10-CM 1. 15 weeks gestation of ([facility]) Z3A.15 POCT urinalysis dipstick manually resulted 2. Second trimester ([facility]) Z34.92 POCT urinalysis dipstick manually resulted Alpha fetoprotein, maternal Alpha fetoprotein, maternal 3. Gastroesophageal reflux disease with esophagitis, unspecified whether hemorrhage K21.00 4. Screening, , for anatomic survey ([facility]) Z36.89 US OB 14+ weeks anatomy scan US OB 14+ weeks anatomy scan 5. Exposure to STD Z20.2 CHLAMYDIA TRACHOMATIS (GENITO/STI) Neisseria gonorrhea DNA probe, direct 6. Vaginal discharge N89.8 SURESWAB(R) ADVANCED VAGINITIS PLUS, TMA 7. Well woman exam with routine gynecological exam Z01.419 Pap Smear Return OB/Annual Exam: Patient presents today for a annual exam/routine obstetrics appointment. Patient is currently 15w3d . Patient states she is doing well but has complaints of nausea in the morning. Pap and cultures was obtained without difficulty and patient was given orders for anatomy scan and msAFP to be obtained. Pt extremely tired falling asleep Orders Placed This Encounter Procedures US OB 14+ weeks anatomy scan CHLAMYDIA TRACHOMATIS (GENITO/STI) Neisseria gonorrhea DNA probe, direct Alpha fetoprotein, maternal POCT urinalysis dipstick manually resulted Follow Up: Patient is to schedule annual exam for next year and return to office in 4 weeks for OB appointment. Documented by Saumya Simmons LPN on behalf of: Junito Ortiz DO documented in this encounter [facility] 12-17-2024 History of Presen t illness Narrative [...] Problems Diagnosis Date Noted Positive urine test ([facility]) 12/03/2024 Resolved Ambulatory Problems Diagnosis Date Noted [...] nursing note reviewed. Exam conducted with a infrastructure manager present. Vitals: Estimated body mass index is 29.73 kg/m as calculated from the following: Height as of 01/23/24: 5' 8 . Weight as of this encounter: 195 lb 8 oz. BP: 110/62 Patient's last menstrual period was 09/28/2024. ASSESSMENT & PLAN ICD-10-CM 1. 11 weeks gestation of ([facility]) Z3A.11 POCT urinalysis dipstick manually resulted 2. First trimester ([facility]) Z34.91 3. Nausea and vomiting in ([facility]) O21.9 4. Gastroesophageal reflux disease with esophagitis, unspecified whether hemorrhage K21.00 pantoprazole (Protonix) 40 MG EC tablet 5. Meconium aspiration in child of prior , currently , unspecified trimester ([facility]) O09.299 New OB: Patient presents today for [...] or undercooked meat, and stay away from [facility]. Patient has been consulted regarding any further do's and don'ts of . Patient voiced understanding and all questions and concerns were answered. Orders Placed This Encounter Procedures POCT urinalysis dipstick manually resulted Follow Up: Patient is to return in 4 weeks for routine OB appointment. Documented by Saumya Simmons LPN on behalf of: Junito Ortiz DO documented in this encounter [facility] 12-05-2024 History of Presen t illness Narrative [...] Problems Diagnosis Date Noted Positive urine test ([facility]) 12/03/2024 Resolved Ambulatory Problems Diagnosis Date Noted [...] dipstick manually resulted , unspecified gestational age (HHS-HCC) - Type and screen; Future - ABO/Rh; Future - CBC and differential - Hemoglobin A1c - RPR - Rubella antibody, IgG - Hepatitis B surface antigen - Hepatitis C antibody - HIV-1 and HIV-2 antibodies - Rapid drug screen, urine; Future Encounter for supervision of normal first in first trimester (HHS-HCC) - Rapid drug screen, urine; Future Dizzy [...] or undercooked meat, and stay away from [facility]. Patient has also been advised to not [...] Carissa Castro LPN documented in this encounter [facility] 11-28-2023 Evaluation note Authored November 28, 2023 [...] family history of esophageal and gastric cancer. [facility] Work Phone: 1(734) 271-209603-13-2024 History of Present illness Narrative* Ty Stratton PA-C - 09/05/2023 9:30 AM EDT [facility] 09/05/2023 8:59 AM Patient info: Kat Bob is a 27 y.o. female Account No.: [id number] Acct: : 1995 PCP: IVON Wadsworth Chief [...] small cyst. 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 Vaan-uk-bptvehlm PEREZ's are often present upon waking, while [...] Stratton PA-C 09/06/23 0832 documented in this encounterOhio State University [facility] CenterFusebill [facility] [id number] Miscellaneous Notes* Telephone Encounter - Viviane Jamison [...] refill again. Please advise and contact patient [phone] * Telephone Encounter - Aimee Lombardo CMA [...] informed and voiced understanding. [facility] encounter Note* Telephone Encounter - Viviane [...] refill again. Please advise and contact patient [phone] [facility]01-[facility]24 Telephone encounter Note* Telephone Encounter - Aimee Lombardo CMA - 07/16/2023 12:39 PM EST The patient is currently taking 60 mg 1 tab in the am of Qulipta. The patient was last seen in clinic 05/23/2023 and is scheduled to follow up 09/05/2023. [facility] Telephone encounter Note* Telephone Encounter - Ty Stratton PA-C - 07/16/2023 12:39 PM EST Take 1/2 tablet daily for 6 days, then Discontinue. - [facility]01-22-2024 Telephone encounter Note* Telephone Encounter - Yelitza Pickens RN - 07/16/2023 12:39 PM EST Patient informed and voiced understanding. [facility]12-13-2023 Evaluation note* Encounter Date Diagnosis Assessment Notes [...] albuterol. Continue to monitor closely. Can take zgde-uzi-ekgnpbb medication for symptom relief. Exercise conservative measures, [...] that were not corrected during review process. [facility] 12-06-2023 Evaluation note* Encounter Date Diagnosis [...] that were not corrected during review process. [facility] 09-11-2023 Evaluation note* Encounter Date Diagnosis [...] that were not corrected during review process. [facility] 08-30-2023 Evaluation note* Encounter Date Diagnosis [...] will also [facility] these [email or web address] Jan, Elevated cortisol level (ICD-10 - E27.0) [...] will also forward these to endocrinology [facility]. Jan, Nausea (ICD-10 - R11.0) I would [...] and is agreeable. We will refer to [facility] neurology so the same electronic medical record [...] and is agreeable. We will refer to [facility] neurology so the same electronic medical record [...] that were not corrected during review process. [facility] [address] [facility] 02-22-2022 Note [id number]#1.00[facility]10-15-2021 [id number]#1.00[facility] 02-04-2020 History general Narrative - Reported* Type Description Date Medical History Anxiety Medical History Depression Medical History Seasonal allergies Hospitalization History Childbirth 0 Hospitalization History Childbirth 06/08/[address] Other Evaluation noteNo InformationNort CardiaLen Other Evpnyfgcgi noteNo assessment information available [facility] Work Phone: Evaluation note* Diagnosis Onset Date Resolution Status Acid reflux acute Anxiety acute Migraines acute Nausea acute [facility] Work Phone: Evaluation note* Diagnosis Migraine without aura and without status migrainosus, not intractable documented in this encounter [facility] Diagnosis Migraine without aura and without status migrainosus, not intractable- Primary Vestibular migraine Pineal gland cyst Other specified endocrine disorders Hx of concussion Daytime somnolence documented in this encounter [facility]* Diagnosis Missed menses , unspecified gestational age ([facility]) Encounter for supervision of normal first in first trimester ([facility]) Dizzy Dizziness and giddiness Lightheaded Dizziness and giddiness [facility] Diagnosis 11 weeks gestation of ([facility]) First trimester ([facility]) state, incidental Nausea and vomiting in ([facility]) Unspecified vomiting of , unspecified as to episode of care Gastroesophageal reflux disease with esophagitis, unspecified whether hemorrhage Meconium aspiration in child of prior , currently , unspecified trimester ([facility]) [facility]* Diagnosis 15 weeks gestation of ([facility]) Second trimester ([facility]) state, incidental Gastroesophageal reflux disease with esophagitis, unspecified whether hemorrhage Screening, , for anatomic survey ([facility]) Encounter for anatomic survey Exposure to STD Vaginal discharge Leukorrhea, not specified as infective Well woman exam with routine gynecological exam Routine gynecological examination Nausea and vomiting in ([facility]) Unspecified vomiting of , unspecified as to episode of care related fatigue in second trimester ([facility]) Insomnia, unspecified type Other migraine with status migrainosus, not intractable [facility] Diagnosis Nausea and vomiting in ([facility])- Primary Unspecified vomiting of , unspecified as to episode of care Second trimester ([facility]) state, incidental 20 weeks gestation of ([facility]) Elevated heart rate with elevated blood pressure without diagnosis of hypertension documented [facility] Diagnosis Second trimester ([facility]) state, incidental 24 weeks gestation of ([facility]) Diabetes mellitus screening Screening for diabetes mellitus documented in this encounter [facility] Narrative - Reported* Type Description Date Medical History Anxiety Medical History Depression Medical History Seasonal allergies Medical History Elevated cortisol level Medical History Elevated DHEA Medical History Migraines Hospitalization History Childbirth 0 Hospitalization History Childbirth 06/08/[address] Other InstructionsNot on filedocumented in this encounter [employer] SystemInstructionsNot on filedocumented in this encounter [facility] SystemInstructionsNot on filedocumented in this encounter [employer] Summary Purpose Family History No Family History Records Found Relationship Condition Age at Onset Recorded Date/T [...] nknown father Meniere's disease Unknown Advance Directives No Advanced Directives Records Found Advance Directive Response Recorded Date/ Time Advance Directives Yes July 2:59pm Reason for Referral Reason Elevated cortisol an d DHEA [facility] Diagnosis 1 Elevated DHEA (E27.8 ) Referral Organization [facility] Family [facility] [place] Referring Provider First Name Nelida Referring Provider Last Name [facility] Referring Provider Specialty Nurse Pract itioner Referred Organization [facility] Referred Address [address],[address] Referred Provider Specialty Endocrinolog y Referral Priority Routine Reason Neuro [facility]- sev eral ongoing neuro symptoms Pending [facility] head at [facility] Diagnosis 1 Dizziness (R42) [facility] [place] Referring Provider First Name Nelida Referring Provider Last Name [facility] Referring Provider Specialty Nurse Pract itioner Referred Organization [facility] Referred Address [address], [place],[address] Referred Provider Specialty Neurology Referral Priority Routine Specialty Diagnoses / Procedures Referred By Teofilo anders Referred To Contact Radiology Diagnoses Migraine without aura and without status migrainosus, not intractable Vestibular migraine Pineal gland cyst Procedures MR brain without contrast Ty Stratton PA-C [address] [place] [address] Referral ID Status Reason Start Date Expiration Date V isits Requested Visits Authorized [id number] Pending Review 09/05/2023 09/04/2024 1 1 Specialty Diagnoses / Procedures Referred By Teofilo anders Referred To Contact Sleep Medicine Diagnoses Daytime somnolence Ty Stratton PA-C [address] [place] [address] Yanira Partida MD [address] [place] [address] Referral ID Status Reason Start Date Expiration Date Visits Requested Visits Authorized [id number] Pending Review Specialty Services Required 09/05/2023 09/04/2024 [...] CREATED AUTHOR AUTHOR'S ORGANIZ ATION 11/05/2022 [facility] DATE CREATED AUTHOR AUTHOR'S ORGANIZ ATION 09[facility]06[facility]20[facility] DATE CREATED AUTHOR AUTHOR'S ORGANIZ ATION 12/12/2023 [facility] DATE CREATED AUTHOR AUTHOR'S ORGANIZ ATION 03/19/2025 [facility] EPIC REASON FOR VISIT (unrecogniz ed [...] Dates Nelida Mckenzie APRN Primary Care Pr velma, Attending Provider Active Start: September 19, 2023 [...] 2023 Junito Ortiz Attending Provider Active Start: Oneyda 2023 End: December 05, 2023 Team Status: [...] Dates Nelida Mckenzie APRN Primary Care Pr ovider, Attending Provider Active Start: December 25, 2023 End: December 25, 2023 Partner Alliance Manager Relationship Specialty Start Date End Date Nelida Mckenzie, SUPERVISOR TWISTING DEPARTMENT-EDUCATION CONSULTANT [address] [facility] [place] [address] PCP - General Family Medicine 04/06/23 Partner Alliance Manager Relationship Specialty Start Date End Date Nelida Mckenzie, SUPERVISOR TWISTING DEPARTMENT-EDUCATION CONSULTANT [address] [address] PCP - General Family Medicine 04/06/23 Partner Alliance Manager Relationship Specialty Start Date End Date Nelida Mckenzie, SUPERVISOR TWISTING DEPARTMENT-EDUCATION CONSULTANT [address] [address] PCP - General Family Medicine 04/06/23 Partner Alliance Manager Relationship Specialty Start Date End Date Unallocated, [place] [address] PCP - General Family Medicine 05/08/24 Treasure England DO [address] [place] [address] Referring Physician Neurology 05/08/24 Partner Alliance Manager Relationship Specialty Start Date End Date Unallocated, [place] [address] PCP - General Family Medicine 05/08/24 Treasure England DO [address] [place] [address] Referring Physician Neurology 05/08/24 Partner Alliance Manager Relationship Specialty Start Date End Date Unallocated, [place] [address] PCP - General Family Medicine 05/08/24 Treasure England DO [address] [place] [address] Referring Physician Neurology 05/08/24 Partner Alliance Manager Relationship Specialty Start Date End Date Unallocated, Natalie Mccollum MD [facility] [place] [address] PCP - General Family Medicine 05/08/24 Treasure England DO [address] [place] [address] Referring Physician Neurology 05/08/24 Partner Alliance Manager Relationship Specialty Start Date End Date Unallocated, Natalie Mccollum MD [facility] [place] [address] PCP - General Family Medicine 05/08/24 Treasure England DO [address] [place] [address] Referring Physician Neurology 05/08/24 Partner Alliance Manager Relationship Specialty Start Date End Date Unallocated, Natalie Mccollum MD [facility] [place] [address] PCP - General Family Medicine 05/08/24 Treasure England DO [address] [place] [address] Referring Physician Neurology 05/08/24 Goals (unrecognized section [...] BE BASED ON THE PRIMARY CLINICAL RECORDS. [employer] [facility]. provides no warranty or guarantee of the accuracy or completeness of information in this document.
[2025-04-01 10:09] LABS: Hematocrit 33.8 % (36.0-48.0); Hemoglobin 10.9 g/dL (12.0-16.0); Immature Granulocytes Abs Auto 0.10 10^3/uL (0.00-0.03); Immature Granulocytes Pct Auto 0.8 % (0.0-0.5); Lymphocytes Absolute Auto 1.5 10^3/uL (1.2-3.8); Mean Corpuscular HGB Conc 32.2 g/dL (29.9-35.2); Mean Corpuscular Hemoglobin 28.6 pg (26.7-34.0); Mean Corpuscular Volume 88.7 fL (81.0-99.0); Platelet Count 226 10^3/uL (150-450); Red Blood Count 3.81 10^6/uL (4.20-5.40); White Blood Count 11.8 10^3/uL (4.0-11.0)
[2025-04-01 10:14] LABS: Glucose 1 Hour 114 mg/dL (<130)
== END 2025-04-01 08:13 | disposition home or self-care (01) ==
LOC: LAB 08:13
PROVIDERS: PCP Nurse Practitioner Family; Visit Provider Nurse Practitioner Family
DX: Z13.1 Encounter for screening for diabetes mellitus (principal)
CPT/HCPCS: 36415; 82950; 85025

== ENCOUNTER 2025-04-22 08:09 | Outpatient (OUT) | payer OTHER, SELFPAY ==
--- OUTSIDE RECORDS SUMMARY | 2025-04-15 13:00 | XMS_ITS | Encounter Summary ---
Author Organization [facility] Address [address] [facility] [place] [address] Care Team Providers Care Supervisor Printing Shop Name Role Phone Unallocated, Noms Provider Primary Care Provi aristeo Treasure England DO Unavailable [phone] Reason for Referral * (Routine) - IncompleteSpecialtyDiagnoses / ProceduresReferred By Contact Referred To ContactRadiology Diagnoses Racing heart beat Procedures Echocardiogram 2D complete Junito Ortiz DO [address] [place] [address] Phone: tel: fax: Referral IDStatusReasonStart DateExpiration DateVisits RequestedVisits [id number] Perform Procedure / Reason for Visit * ReasonCommentsRoutine Visit Encounter Details DateTypeDepartmentCare Team (Latest Contact Info)Gesfqqhrpuv53/22/2025 1:00 PM EDTRoutine [facility] [place] [facility] [address] [place] [address] Junito Ortiz DO [address] [place] [address] Third trimester ([facility] 28 weeks gestation of ([facility]); size inconsistent with dates ([facility]); Racing heart beat Social History Tobacco UseTypesPacks/DayYears UsedDateSmoking Tobacco: NeverSmokeless Tobacco: NeverAlcohol UseStandard Drinks/WeekCommentsYes0 (1 standard drink = 0.6 oz pure alcohol)One drink per monthEstimated Date of DeliveryCommentsYes 6Based on last menstrual period of 09/28/2024Sex and Gender Information ValueDate RecordedSex Assigned at BirthNot on fileLegal JgpQynacs01/15/2023 8:11 PM EDTGender IdentityNot on fileSexual OrientationNot on filedocumented as of this encounter Last Filed Vital Signs Vital SignReadingTime TakenCommentsBlood Ggwtpgqs820/7204/15/2025 1:19 PM EDT Pulse--Temperature--Respiratory Rate--Oxygen Saturation--Inhaled Oxygen Concentration--Ntmsfh378 kg (226 lb)04/15/2025 1:19 PM EDTHeight--Body Mass Index34.36001/23/2024 1:31 PM EDTdocumented in this encounter Progress Notes * Saumya Simmons LPN - 04/15/2025 1:00 PM EDT Reason for Appointment: Patient ID: Kat Bob is a 29 y.o. female who presents for Routine Visit Patient presents today for Return OB appointment. MEDICATIONS Current Outpatient Medications Medication Instructions Ambien 10 mg, Oral, Nightly PRN Doxylamine Succinate, Sleep, (UNISOM PO) Take by mouth iron polysaccharides (PROFE) 391.3 mg, Oral, Daily magnesium 100 MG tablet metoclopramide (Reglan) 10 MG tablet TAKE 1 TABLET BY MOUTH IN MORNING,AT NOON,IN EVENING 30 MINUTES PRIOR TO MEALS NEEDED FOR NAUSEA omeprazole (PRILOSEC) 40 mg, Oral, Daily before [...] Problems Diagnosis Date Noted Positive urine test ([facility]) 12/03/2024 Resolved Ambulatory Problems Diagnosis Date Noted [...] nursing note reviewed. Exam conducted with a floor sanding machine operator present. Vitals: Estimated body mass index is 33.15 kg/m?? as calculated from the following: Height as of 01/23/24: 5' 8 . Weight as of 03/18/25: 218 lb. BP: Patient's last menstrual period was 09/28/2024. Assessment/Plan ICD-10-CM 1. Third trimester ([facility]) Z34.93 2. 28 weeks gestation of ([facility]) Z3A.28 POCT urinalysis dipstick manually resulted Return OB: Patient presents today for a routine obstetrics appointment. Patient is currently 28w3d . Patient states she is doing well but has complaints of being tired due to current . Patient has verbalizes frequent movement. labor precautions was discussed/given. Pt states resting heart rate in the 130s, given echo and pt states has order for EKG. Pt given growth ultrasound to have obtained as well. Orders Placed This Encounter Procedures POCT urinalysis dipstick manually resulted Follow Up: Patient is to return to office in 2 week for routine OB appointment. Documented by Saumya Simmons LPN on behalf of: Junito Ortiz DO documented in this encounter Plan of Treatment DateTypeDepartmentCare Team (Latest Contact Info)Nkwivelfohx15/05/2025 1:00 PM ESTAncillary Procedure NATALIE KEARNS [address] [facility] [address] 04/29/2025 1:30 PM ESTRoutine NOMDominguez KEARNS [address] [place] [address] Junito Ortiz DO [address] [place], [place] [address] NameTypePriorityAssociated DiagnosesOrder ScheduleEchocardiogram 2D complete EchocardiographyRoutine Racing heart beat Expected: 04/15/2025 (Approximate), Expires: 04/15/2027US OB follow up transabdominal approachImagingRoutine size inconsistent with dates ([facility]) Expected: 04/15/2025, Expires: 08/16/2025documented as of this encounter Procedures Procedure NamePriorityDate/TimeAssociated DiagnosisCommentsPOCT URINALYSIS RJCFNLDKZcfhooe56/22/2025 1:16 PM EDT 28 weeks gestation of ([facility]) documented in this encounter Results * (ABNORMAL) POCT urinalysis dipstick manually resulted (04/15/2025 1:16 PM EDT) ComponentValueRef RangeTest MethodAnalysis TimePerformed AtPathologist SignatureColor, UAYellowClarity, UAClearGlucose, UANegativeNegative - 2000(110) ++++ mg/dLBilirubin, UANegativeNegative - 4(70) +++ mg/dLKetones, UA NegativeNegative - 160(16) ++++ mg/dLSpec Grav, UA1.0201 - 1.03Blood, UA NegativeNegative - 50 Cj/mcLpH, UA6.05 - 9Protein, UATraceNegative - 2000(20) ++++ mg/dLUrobilinogen, UA2.00.2 - 12 mg/dLLeukocytes, UATraceNegative - 500+++ Cosmo/mcLNitrite, UANegativeNegative - PositiveSpecimen (Source) Anatomical Location / LateralityCollection Method / VolumeCollection Time Received HacfLzcqn59/22/2025 1:16 PM EDT Narrative Authorizing ProviderResult TypeResult StatusCorey Angel DOPOINT OF CARE TEST ENTER/EDIT ORDERABLESFinal Result documented in this encounter Visit Diagnoses Diagnosis Third trimester ([facility]) state, incidental 28 weeks gestation of ([facility]) size inconsistent with dates ([facility]) Racing heart beat Unspecified tachycardia documented in this encounter Care Teams Team MemberRelationshipSpecialtyStart DateEnd Date Unallocated, Noms Provider, [place] [address] PCP - GeneralFamily Tkmokflq99/14/24 Treasure England DO [address] [place] [address] Referring OulanrtstCyzmiedrh88/14/24documented as of this encounter
--- OUTSIDE RECORDS SUMMARY | 2025-04-22 08:12 | XMS_ITS | Clinical Summary ---
Author Organization [facility] Healthcare Address [address] [facility] [place] [address] Care Team Providers Care Etiquette Teacher Name Role Phone Unallocated, [facility] Provider MD Primary Care Provi aristeo Treasure England DO Unavailable [phone] Allergies Active AllergyReactionsCriticalityNoted DateCommentsPollen Rtlwvpp0009/19/2023 Other Reaction(s): Unknown Reaction Medications MedicationSigDispense QuantityRefillsLast FilledStart DateEnd DateStatus magnesium 100 MG tablet 08/17/2022ctive Probiotic Product (PROBIOTIC ADVANCED PO) ProbioticActive pyridoxine (Vitamin B-6) 25 MG tablet Take 25 mg by mouth DailyActive Doxylamine Succinate, Sleep, (UNISOM PO) Take by mouthActive pantoprazole (Protonix) 40 MG EC tablet Indications:Gastroesophageal reflux disease with esophagitis, unspecified whether hemorrhageTake 1 tablet (40 mg) by mouth in the morning. Take before meals. Do not crush, chew, or split. 30 tablet 1106/25//6Active Ambien 10 MG tablet Indications: related fatigue in second trimester (HHS-HCC),Insomnia, unspecified typeTake 1 tablet (10 mg) by mouth as needed at bedtime for sleep for up to 5 days 5 tablet 5Active ondansetron (Zofran) 4 MG tablet Indications:Nausea and vomiting in (HHS-HCC)Take 1 tablet (4 mg) by mouth every 6 (six) hours if needed for nausea or vomiting for up to 30 doses Take 1 tablet by mouth every 6 hours as needed for nausea. 30 tablet 307/23/2025Active promethazine (Phenergan) 12.5 MG tablet Indications:Nausea and vomiting in ([facility])Take 1 tablet (12.5 mg) by mouth every 8 (eight) hours if needed for nausea or vomiting for up to 30 doses Take 1 tablet by mouth every 6 hours as needed for nausea. 30 tablet 5Active omeprazole (PriLOSEC) [address] capsule Indications:Gastroesophageal Reflux Disease,HeartburnTake 2 capsules (40 mg) by mouth in the morning. Take before meals. Do not crush or chew. 180 capsule 515Active metoclopramide (Reglan) 10 MG tablet Indications:Nausea and vomiting in ([facility])TAKE 1 TABLET BY MOUTH IN MORNING,AT NOON,IN EVENING 30 MINUTES PRIOR TO MEALS NEEDED FOR NAUSEA 90 tablet 5Active iron polysaccharides (ProFe) 391.3 (180 Fe) MG capsule Indications:Low ironTake 1 capsule (391.3 mg) by mouth Daily 30 capsule 515Active Active Problems ProblemNoted DateDiagnosed DatePositive urine test ([facility])12/03/2024 Estimated Date of CriwyrfmJpnqylijVqk42/11/2026ased on last menstrual period of 09/28/2024 Encounters DateTypeDepartmentCare JolhZiowuszvqne81/22/2025 1:00 PM EDTRoutine [facility] [address] [place] [address] [place] [address] Junito Ortiz DO Third trimester ([facility]); 28 weeks gestation of ([facility]); size inconsistent with dates ([facility]); Racing heart beat04/15/2025bstract [facility] [address] [place] [address] [place] [address] Mable Dior MA 04/15/2025amboo flowsheet [facility] [place] [address] Junito Ortiz DO 04/13/2025bstract [facility] [address] [place] [address] Mable Dior MA 04/08/2025bstract [facility] [address] [facility] [place] [address] Marge Kirkland NP 04/01/2025Telephone [facility] [address] [place] [address] Ariadna Bowden MA 04/01/2025linisync Result Encounter [facility] External Department Unsolicited Marge Kirkland NP 03/21/2025Refill [facility] [address] [facility] [place] [address] Junito Ortiz DO Nausea and vomiting in ([facility])03/18/2025 2:20 PM EDTRoutine [facility] [address] [place] [address] Junito Ortiz DO Second trimester ([facility]); 24 weeks gestation of ([facility]); Diabetes mellitus nxmigffdb85/24/2025 2:00 PM EDTAncillary Procedure [facility] [address] [place] [address] Encounter for follow-up ultrasound of anatomy ([facility])03/05/2025bstract [facility] [address] [facility] [place] [address] Marge Kirkland NP 02/27/2025Orders Only [facility] [address] [place] [address] Marge Kirkland, ZAC Pelvic pain in female; Pelvic pain affecting , antepartum ([facility])02/25/2025Telephone [facility] [address] [facility] [place] [address] Mable Dior MA 02/20/2025bstract [facility] [address] [place] [address] Junito Ortiz, 02/18/2025 10:00 AM EDTRoutine [facility] [address] [facility] [place] [address] Marge Kirkland NP Nausea and vomiting in ([facility]) (Primary Dx); Second trimester ([facility]); 20 weeks gestation of ([facility]); Elevated heart rate with elevated blood pressure without diagnosis of qgcdfnuvoebf69/27/2025 9:00 AM EDTAncillary Procedure [facility] [address] [facility] [place] [address] 02/18/2025Refill [facility] [address] [facility] [place] [address] Cindy Weinstein LPN Gastroesophageal reflux in ([facility])01/26/2025Telephone [facility] [address] [facility] [place] [address] Mable Dior MA 01/23/2025Telephone [facility] [address] [facility] [place] [address] Junito Ortiz, 01/21/2025Orders Only [facility] [address] [facility] [place] [address] Mable Dior MA from Last 3 Months Family History Medical HistoryRelationNameCommentsBreast cancerFather's SisterLauraDiabetes Maternal GrandfatherDonStrokeMaternal GrandfatherDonCancerMotherLoriCancer Mother's Brother 1PatCancerMother's Brother 2TimDiabetesMother's Brother 3Mike Alzheimer's diseasePaternal GrandmotherMarleneBreast cancerPaternal Grandmother MarleneCancerSisterTeresaRelationNameStatusCommentsFather's SisterLauraMaternal GrandfatherDonMotherLoriMother's Brother 1PatMother's Brother 2TimMother's Brother 3MikePaternal GrandmotherMarleneSisterTeresa Social History Tobacco UseTypesPacks/DayYears UsedDateSmoking Tobacco: NeverSmokeless Tobacco: NeverAlcohol UseStandard Drinks/WeekCommentsYes0 (1 standard drink = 0.6 oz pure alcohol)One drink per monthEstimated Date of DeliveryCommentsYes 07/05/2025ased on last menstrual period of 09/28/2024Sex and Gender Information ValueDate RecordedSex Assigned at BirthNot on fileLegal IyyXikftc42/15/2023 8:11 PM EDTGender IdentityNot on fileSexual OrientationNot on file Last Filed Vital Signs Vital SignReadingTime TakenCommentsBlood Dvkahsha548/7204/15/2025 1:19 PM EDT Pulse--Temperature--Respiratory Rate--Oxygen Saturation--Inhaled Oxygen Concentration--Dmwffa653 kg (226 lb)04/15/2025 1:19 PM BRNZpxdqf184.7 cm (5' 8 ) 01/23/2024 1:31 PM EDTBody Mass Index34.36001/23/2024 1:31 PM EDT Plan of Treatment DateTypeDepartmentCare Team (Latest Contact Info)Hauaspxulum66/05/2025 1:00 PM ESTAncillary Procedure [facility] [address] [facility] [place] [address] 04/29/2025 1:30 PM ESTRoutine [facility] [address] [facility] [place] [address] Junito Ortiz DO [address] [facility] [address] [place], [place] [id number] Health MaintenanceDue DateLast DoneCommentsMMR Vaccines (1 of 1 - Standard series)12/19/1996DTaP/Tdap/Td Vaccines (1 - Tdap)12/19/2002Varicella Vaccines (1 of 2 - 13+ 2-dose series)12/19/2008Hepatitis B Vaccines (1 of 3 - 19+ 3-dose series)12/19/2014HPV Vaccines (1 - 3-dose SCDM series)3COVID-19 Vaccine (1 - season)2025Influenza Vaccine (#1)2025HIB VaccinesAged OutNo longer eligible based on patient's age to complete this topicHepatitis A VaccinesAged OutNo longer eligible based on patient's age to complete this topic IPV VaccinesAged OutNo longer eligible based on patient's age to complete this topicMeningococcal B VaccineAged OutNo longer eligible based on patient's age to complete this topicMeningococcal VaccineAged OutNo longer eligible based on patient's age to complete this topicPneumococcal Vaccine: Pediatrics (0 to 5 Years) and At-Risk Patients (6 to 64 Years)Aged OutNo longer eligible based on patient's age to complete this topicRotavirus VaccinesAged OutNo longer eligible based on patient's age to complete this topic Procedures Procedure NamePriorityDate/TimeAssociated DiagnosisCommentsPOCT URINALYSIS IFGGZPTXAyiljpv17/22/2025 1:16 PM EDT 28 weeks gestation of ([facility]) ALL CBC WITH AUTO FZOYMdmzbph50/08/2025 9:19 AM EDT GLUCOSE 1 JFPSKnniyob63/08/2025 9:19 AM EDT POCT URINALYSIS SSYSTFAPZfrlhzq34/24/2025 2:39 PM EDT Second trimester ([facility]) US OB LIMITED 1+ YIXQHKFAyorqfe77/24/2025 2:17 PM EDT Encounter for follow-up ultrasound of anatomy ([facility]) POCT URINALYSIS CAWTOTJRHwnebjt33/27/2025 10:12 AM EDT Second trimester ([facility]) 20 weeks gestation of ([facility]) US OB 14+ WEEKS ANATOMY ADCRNbhpjgu77/27/2025 9:59 AM EDT Screening, , for anatomic survey ([facility]) from Last 3 Months Results * (ABNORMAL) POCT urinalysis dipstick manually resulted (04/15/2025 1:16 PM EDT) Only the most recent of3 resultswithin the time period is included. ComponentValueRef RangeTest MethodAnalysis TimePerformed AtPathologist Signature Color, UAYellowClarity, UAClearGlucose, UANegativeNegative - 2000(110) ++++ mg/dLBilirubin, UANegativeNegative - 4(70) +++ mg/dLKetones, UANegativeNegative - 160(16) ++++ mg/dLSpec Grav, UA1.0201 - 1.03Blood, UANegativeNegative - 50 Cj/mcLpH, UA6.05 - 9Protein, UATraceNegative - 2000(20) ++++ mg/dLUrobilinogen, UA2.00.2 - 12 mg/dLLeukocytes, UATraceNegative - 500+++ Cosmo/mcLNitrite, UA NegativeNegative - PositiveSpecimen (Source)Anatomical Location / Laterality Collection Method / VolumeCollection TimeReceived TvqqSbshn41/22/2025 1:16 PM EDT Narrative Authorizing ProviderResult TypeResult StatusJunito Ortiz DOPOINT OF CARE TEST ENTER/EDIT ORDERABLESFinal Result * GLUCOSE 1 HOUR (04/01/2025 9:19 AM EDT)ComponentValueRef RangeTest Method Analysis TimePerformed AtPathologist SignatureGLUCOSE 1 SJAH675<130 mg/dLTBH Specimen (Source)Anatomical Location / LateralityCollection Method / Volume Collection TimeReceived Time04/01/2025 9:19 AM EDT1 9:27 AM EDT Narrative [facility] - 04/01/2025 10:15 AM EDT Authorizing ProviderResult TypeResult StatusMarge Kirkland NPLAB BLOOD ORDERABLESFinal ResultPerforming OrganizationAddressCity/State/ZIP CodePhone Number [facility]INIS[facility]NC [facility] * (ABNORMAL) ALL CBC WITH AUTO DIFF (04/01/2025 9:19 AM EDT)ComponentValueRef RangeTest MethodAnalysis TimePerformed AtPathologist SignatureTBH WBC11.8(H) 4.0 - 11.0 10 3/uLTBHTBH RBC3.81(L)4.20 - 5.40 10 6/uLTBHTBH HGB10.9(L)12.0 - 16.0 g/dLTBHTBH HCT33.8(L)36.0 - 48.0 %TBHTBH MCV88.781.0 - 99.0 fLTBHTBH MCH 28.626.7 - 34.0 pgTBHTBH MCHC32.229.9 - 35.2 g/dLTBHTBH RDW12.611.0 - 15.0 % TBHTBH QCS007465 - 450 10 3/uLTBHTBH MPV11.09.5 - 13.5 fLTBHNEUTROPHILS PERCENT AUTO79.6(H)43.0 - 75.0 %TBHLYMPHOCYTES PERCENT AUTO12.6(L)20.5 - 60.0 %TBHMONOCYTES PERCENT AUTO5.21.7 - 12.0 %TBHTBH EO %1.30.9 - 7.0 %TBHBASOPHILS PERCENT AUTO0.50.2 - 2.0 %TBHIMMATURE GRANULOCYTES PCT AUTO0.8(H)0.0 - 0.5 % TBHNEUTROPHILS ABSOLUTE AUTO9.4(H)1.4 - 6.5 10 3/uLTBHLYMPHOCYTES ABSOLUTE AUTO1.51.2 - 3.8 10 3/uLTBHMONOCYTES ABSOLUTE AUTO0.60.3 - 0.8 10 3/uLTBHTBH EO #0.20.0 - 0.7 10 3/uLTBHBASOPHILS ABSOLUTE AUTO0.10.0 - 0.1 10 3/uLTBH IMMATURE GRANULOCYTES ABS AUTO0.10(H)0.00 - 0.03 10 3/uLTBHSpecimen (Source) Anatomical Location / LateralityCollection Method / VolumeCollection Time Received Time04/01/2025 9:19 AM EDT1 9:27 AM EDT Narrative [facility] - 04/01/2025 10:35 AM EDT Authorizing ProviderResult TypeResult StatusNahumcindy Kirkland NPCLINISYNCFinal ResultPerforming OrganizationAddressCity/State/ZIP CodePhone Number [facility] * US OB limited 1+ fetuses (03/18/2025 2:17 PM EDT)Anatomical RegionLaterality ModalityBodyUltrasoundSpecimen (Source)Anatomical Location / Laterality Collection Method / VolumeCollection TimeReceived Time03/19/2025 1:09 PM EDT Impressions 03/19/2025 1:56 PM EDT Single viable intrauterine , appropriate thoracolumbar, lumbosacral anatomy for this age. TRANSCRIBED BY: ? ELECTRONICALLY SIGNED BY: Himanshu Nogueira MD Narrative 03/19/2025 1:56 PM EDT FINDINGS: Breech presentation. ??Heart rate 132. ??Morphology is grossly normal, which includes thoracolumbar, lumbosacral, distal lumbar evaluation. Gestational age of 24 weeks and 3 days, estimated delivery date of July 05, 2025. Procedure Note Himanshu Nogueira MD - 03/19/2025 FINDINGS: Breech presentation. Heart rate 132. Morphology is grossly normal, whichincludes thoracolumbar, lumbosacral, distal lumbar evaluation. Gestational age of 24 weeks and 3 days, estimated delivery date of 2025. IMPRESSION: Single viable intrauterine , appropriate thoracolumbar,lumbosacral anatomy for this age. TRANSCRIBED BY: ELECTRONICALLY SIGNED BY: Himanshu Nogueira MD Authorizing ProviderResult TypeResult StatusJunito MOSCOSO OB US PROCEDURES Final Result * US OB 14+ weeks anatomy scan (02/18/2025 9:59 AM EDT)Anatomical Region LateralityModalityBodyUltrasoundSpecimen (Source)Anatomical Location / LateralityCollection Method / VolumeCollection TimeReceived Time02/19/2025 12:02 PM EDT Addenda Addendum by Himanshu Nogueira MD on 02/24/2025 12:59 PM EDT ADDENDUM #1 Current examination demonstrated an incomplete anatomical scan for spine evaluation. Recommend follow-up imaging dedicated to spine evaluation. TRANSCRIBED BY: ? ELECTRONICALLY SIGNED BY: Himanshu Nogueira MD Impressions 02/19/2025 1:28 PM EDT Single, live intrauterine , current sonographic age of 20 weeks and 2 days, with an estimated date of delivery of July 06, 2025 * ??Estimated Weight (g) by Percentile is based upon an accurate estimated age based onlast menstrual period. ?? TRANSCRIBED BY: ? ELECTRONICALLY SIGNED BY: Himanshu Nogueira MD Narrative 02/19/2025 1:28 PM EDT FINDINGS: A single, live intrauterine is present with normal cardiac rate of 155 beats per minute. Normal activity and amniotic fluid volume. Morphology is grossly normal. The cervix is long and closed, 5.9 cm. ??The placenta is anterior, inferior aspect 4.9 cm from the closed cervical os. ??The current sonographic age is 20 weeks and 2 days, based on the following measurements: ?BPD ? 4.6 cm (19 weeks, 5 days) ?Head Circumference ?17.9 cm (20 weeks, 2 days) ?Abdominal Circumference ?16.1 cm (21 weeks, 1 day) ?Femur Length ? 3.5 cm (20 weeks, 6 days) ?Presentation ?Breech ?Placenta ?Anterior ? Weight (g) by Percentile ?? 72.4 % * These measurements result in an estimated date of delivery of July 06, 2025. ?? The current estimated weight is 386 grams (0 pounds, 14 ounces). ?? Procedure Note Himanshu Nogueira MD - 02/19/2025 FINDINGS: A single, live intrauterine is present with normal cardiacrate of 155 beats per minute. Normal activity and amniotic fluidvolume. Morphology is grossly normal. The cervix is long and closed, 5.9cm. The placenta is anterior, inferior aspect 4.9 cm from the closedcervical os. The current sonographic age is 20 weeks and 2 days, based onthe following measurements: BPD 4.6 cm (19 weeks, 5 days) Head Circumference 17.9 cm (20 weeks, 2 days) Abdominal Circumference 16.1 cm (21 weeks, 1 day) Femur Length 3.5 cm (20 weeks, 6 days) Presentation Breech Placenta Anterior Weight (g) by Percentile 72.4 % * These measurements result in an estimated date of delivery of June. The current estimated weight is 386 grams (0 pounds, 14ounces). IMPRESSION: Single, live intrauterine , current sonographic age of 20 weeksand 2 days, with an estimated date of delivery of July 06, 2025 * Estimated Weight (g) by Percentile is based upon an accurateestimated age based on last menstrual period. TRANSCRIBED BY: ELECTRONICALLY SIGNED BY: Himanshu Nogueira MD Authorizing ProviderResult TypeResult StatusCorey Angel PRICE OB US PROCEDURES Edited Result - Final from Last 3 Months Insurance Care Teams Team MemberRelationshipSpecialtyStart DateEnd Date Unallocated, [facility] MD [address] [place] [address] PCP - GeneralFamily Tihvbyge92/14/24 Treasure England DO [address] [place] [address] Referring DfkjtubifVbzlrwthy88/14/24
--- OUTSIDE RECORDS SUMMARY | 2025-04-22 08:12 | XMS_ITS | Encounter Summary ---
Author Organization [facility] Address [address] [facility] [place] [address] Care Team Providers Care Marketing Assistant Retail Division Name Role Phone Unallocated, [facility] Provider Primary Care Provi aristeo TomásTreasure DO Unavailable [phone] Encounter Details DateTypeDepartmentCare Team (Latest Contact Info)Krxoilxchbz96/22/2025amboo flowsheet NATALIE [facility] [address] [place] [address] Junito Ortiz DO [address] [place], [place] [address] Social History Tobacco UseTypesPacks/DayYears UsedDateSmoking Tobacco: NeverSmokeless Tobacco: NeverAlcohol UseStandard Drinks/WeekCommentsYes0 (1 standard drink = 0.6 oz pure alcohol)One drink per monthEstimated Date of DeliveryCommentsYes 6Based on last menstrual period of 09/28/2024Sex and Gender Information ValueDate RecordedSex Assigned at BirthNot on fileLegal QrzCvmorn34/15/2023 8:11 PM EDTGender IdentityNot on fileSexual OrientationNot on filedocumented as of this encounter Plan of Treatment DateTypeDepartmentCare Team (Latest Contact Info)Shudoyacjxl72/05/2025 1:00 PM ESTAncillary Procedure NATALIE KEARNS [address] [place] [address] 04/29/2025 1:30 PM ESTRoutine [facility] [address] [place] [address] Junito Ortiz DO [address] [facility] [address] [place], [place] [address] documented as of this encounter Visit Diagnoses Not on filedocumented in this encounter Care Teams Team MemberRelationshipSpecialtyStart DateEnd Date Unallocated, Noms MD Chun [address] [place] [address] PCP - GeneralFamily Nmsqepwt48/14/24 Treasure England DO [address] [place] [address] Referring CzydhwvepRgereostq40/14/24documented as of this encounter
--- OUTSIDE RECORDS SUMMARY | 2025-04-22 08:12 | XMS_ITS | Encounter Summary ---
Author Organization [facility] Address [address] [facility] [place] [address] Care Team Providers Care Seo Coordinator Name Role Phone Unallocated, N[facility] Provider MD Primary Care Provi aristeo Treasure England DO Unavailable [phone] Encounter Details DateTypeDepartmentCare Team (Latest Contact Info)Dhjwvilmags33/22/2025[place] [address] Mable Dior MA Social History Tobacco UseTypesPacks/DayYears UsedDateSmoking Tobacco: NeverSmokeless Tobacco: NeverAlcohol UseStandard Drinks/WeekCommentsYes0 (1 standard drink = 0.6 oz pure alcohol)One drink per monthEstimated Date of DeliveryCommentsYes 6Based on last menstrual period of 09/28/2024Sex and Gender Information ValueDate RecordedSex Assigned at BirthNot on fileLegal MilEnpudj16/15/2023 8:11 PM EDTGender IdentityNot on fileSexual OrientationNot on filedocumented as of this encounter Plan of Treatment DateTypeDepartmentCare Team (Latest Contact Info)Mrfhxygunnc45/05/2025 1:00 [place] [address] 04/29/2025 1:30 PM ESTRoutine [place] [address] Junito Ortiz DO [address] [facility] [address] [place], [place] [id number] documented as of this encounter Visit Diagnoses Not on filedocumented in this encounter Care Teams Team MemberRelationshipSpecialtyStart DateEnd Date Unallocated, Noms Provider, [address] [address] PCP - GeneralFamily Teejfqnl70/14/24 Treasure Englnad DO [address] [place] [address] Referring AphrboursHgjozhrnr54/14/24documented as of this encounter
--- OUTSIDE RECORDS SUMMARY | 2025-04-22 08:12 | XMS_ITS | Encounter Summary ---
Author Organization [facility] Address [address] [facility] [place] [address] Care Team Providers Care Clinical Pharmacy Specialist Name Role Phone Unallocated, [facility] Provider Primary Care Provi aristeo Treasure England DO Unavailable [phone] Encounter Details DateTypeDepartmentCare Team (Latest Contact Info)Fccdyoelstu39/15/2025bstract NATALIE KEARNS [address] [place] [address] Marge Kirkland, STUNT WOMAN [address] [place] [address] Social History Tobacco UseTypesPacks/DayYears UsedDateSmoking Tobacco: NeverSmokeless Tobacco: NeverAlcohol UseStandard Drinks/WeekCommentsYes0 (1 standard drink = 0.6 oz pure alcohol)One drink per monthEstimated Date of DeliveryCommentsYes 6Based on last menstrual period of 09/28/2024Sex and Gender Information ValueDate RecordedSex Assigned at BirthNot on fileLegal KqiXgfrbt78/15/2023 8:11 PM EDTGender IdentityNot on fileSexual OrientationNot on filedocumented as of this encounter Plan of Treatment DateTypeDepartmentCare Team (Latest Contact Info)Kbcaherudmz08/05/2025 1:00 PM ESTAncillary Procedure NATALIE KEARNS [address] [place] [phone] 04/29/2025 1:30 PM ESTRoutine [facility] [address] [facility] [place] [address] Junito Ortiz DO [address] [facility] [address] [place], [place] [phone] documented as of this encounter Visit Diagnoses Not on filedocumented in this encounter Care Teams Team MemberRelationshipSpecialtyStart DateEnd Date Unallocated, [facility]oms MD [address] [facility] [place] [address] PCP - GeneralFamily Mzlosthd90/14/24 Treasure England DO [address] [place] [address] Referring JizukarggEixrriqcg16/14/24documented as of this encounter
--- OUTSIDE RECORDS SUMMARY | 2025-04-22 08:12 | XMS_ITS | Clinical Summary ---
Author Organization [employer] s tem Address [id number] [address] [place] [address] Care Team Providers Care Wigs Salesperson Name Role Phone Kelly Mckenzie YANELI-ROLLER STITCHER Primary Care Provider Allergies No known active allergies Medications MedicationSigDispense QuantityRefillsLast FilledStart DateEnd DateStatus buPROPion XL (WELLBUTRIN XL) 150 mg 24 hr tablet Take 2 tablets (300 mg total) by mouth in the morning.Active ondansetron ODT (ZOFRAN-ODT) 4 mg disintegrating tablet Dissolve 1 tablet (4 mg total) on tongue every 8 (eight) hours as needed for nausea or vomiting.Active omeprazole (PriLOSEC) 20 mg capsule Take 2 capsules (40 mg total) by mouth in the morning.02/21/2023ctive rizatriptan (MAXALT) 10 mg tablet Indications:Migraine without aura and without status migrainosus, not intractableTake 1 tablet just after onset of migraine. May repeat the dose after 2 hours if migraine persists.Max of 2 doses per 24 hours. 12 tablet ctive verapamil SR (CALAN-SR) 120 mg CR tablet Indications:Migraine without aura and without status migrainosus, not intractableTake 1 tablet (120 mg total) by mouth nightly. 30 tablet ctive rizatriptan (MAXALT) 10 mg tablet Indications:Migraine without aura and without status migrainosus, not intractableTAKE 1 TABLET AT ONSET OF MIGRAINE MAY REPEAT DOSE AFTER 2HRS IF MIGRAINE PERSISTS MAX 2/24HR 12 tablet 5Active Active Problems ProblemNoted DateDiagnosed DateMigraine without aura and without status migrainosus, not ifvkbobxaqm54/29/2023Pineal gland cyst05/23/2023Hx of cbuorhtkbr76/29/2023Vestibular xsazacxc83/27/2023Choroid plexus cyst of fetus affecting care of mother, kgbgvxrsvi53/10/2021 Family History Medical HistoryRelationNameCommentsBreast cancerMaternal GrandmotherDiabetes Maternal GrandmotherHeart diseaseMotherInfertilityMotherCancerOtheraunts and uncles on both sidesBreast cancerPaternal GrandmotherCancerSistercervical cancer RelationNameStatusCommentsMaternal GrandmotherMotherOtherOtherFamily Members in generalPaternal GrandmotherSister Social History Tobacco UseTypesPacks/DayYears UsedDateSmoking Tobacco: NeverSmokeless Tobacco: Never Tobacco Cessation:Counseling Given: Not Answered Alcohol UseStandard Drinks/WeekCommentsYes0 (1 standard drink = 0.6 oz pure alcohol)socialAUDIT-CAnswerDate RecordedQ1: How often do you have a drink containing alcohol?Never12/19/2019Average Number of DrinksNot on file12/19/2019 Frequency of Binge DrinkingNot on file12/19/2019PHQ-2AnswerDate RecordedTotal Ngobo828/29/2023ChildcareAnswerDate IvgdfeixQbrflkkmqXtcjnyg49/24/2020Employment AnswerDate KmsotaonVnfjppezkxCjskiat17/24/2020Hunger ScreeningAnswerDate RecordedWithin the past 12 months we worried whether our food would run out before we got money to buy more.Never True09/05/2023Within the past 12 months the food we bought just didn't last and we didn't have money to get more.Never True4Purpose - LifeAnswerDate RecordedPurpose and direction in life Bzjrpim74/11/2021CommentsNoSex and Gender InformationValueDate Recorded Sex Assigned at BirthNot on fileLegal YloSybwob98/24/2020 11:48 AM EDTGender IdentityNot on fileSexual OrientationNot on file Last Filed Vital Signs Vital SignReadingTime TakenCommentsBlood Zsfmjcke613/7703 9:42 AM EDT Lsanl325609/05/2023 9:42 AM EDTTemperature--Respiratory Rate--Oxygen Saturation-- Inhaled Oxygen Concentration--Lfetqu11.9 kg (202 lb 8 oz)09/05/2023 9:42 AM EDT Geetav452.7 cm (5' 8 )09/05/2023 9:42 AM EDTBody Mass Index30.7909/05/2023 9:42 AM EDT Plan of Treatment Health MaintenanceDue DateLast DoneCommentsDTaP,Tdap and Td Vaccines (1 - Tdap) 12/19/2014Pap Smear12/19/2016Depression Epukmrqil97dult BMI Ahefznbto65Tobacco Sdsqpcqiq22Influenza Zzgkiia0302/23/2025 Medical Devices Not on file Insurance Care Teams Team MemberRelationshipSpecialtyStart DateEnd Date Kelly Mckenzie APRN-ROLLER STITCHER [address] [facility] [address] [place] [address] PCP - GeneralFamily Pzulvroe57/13/23
--- OUTSIDE RECORDS SUMMARY | 2025-04-22 08:12 | XMS_ITS | Encounter Summary ---
Author Organization [facility] Address [address] [facility] [place] [address] Care Team Providers Care Spudder Name Role Phone Unallocated, Noms Provider MD Primary Care Provi aristeo Treasure England DO Unavailable [phone] Encounter Details DateTypeDepartmentCare Team (Latest Contact Info)Ucolsuaafpy00/20/20[place] [address] Mable Dior MA Social History Tobacco UseTypesPacks/DayYears UsedDateSmoking Tobacco: NeverSmokeless Tobacco: NeverAlcohol UseStandard Drinks/WeekCommentsYes0 (1 standard drink = 0.6 oz pure alcohol)One drink per monthEstimated Date of DeliveryCommentsYes 07/05/2025ased on last menstrual period of 09/28/2024Sex and Gender Information ValueDate RecordedSex Assigned at BirthNot on fileLegal JiiMjixiv07/15/2023 8:11 PM EDTGender IdentityNot on fileSexual OrientationNot on filedocumented as of this encounter Plan of Treatment DateTypeDepartmentCare Team (Latest Contact Info)Wkbckyqoxxq01/05/2025 1:00 PM [place] [address] 04/29/2025 1:30 PM [place] [address] Junito Ortiz DO [address] [place], [place] [id number] documented as of this encounter Visit Diagnoses Not on filedocumented in this encounter Care Teams Team MemberRelationshipSpecialtyStart DateEnd Date Unallocated, Noms Provider, [address] [address] PCP - GeneralFamily Kyqskyfo21/14/24 Treasure England DO [address] [place] [address] Referring TlmshzmpoLbbjseeuk62/14/24documented as of this encounter
--- OUTSIDE RECORDS SUMMARY | 2025-04-22 08:14 | XMS_ITS | CCD ---
Author Organization [facility] CliniSysd Care Team Providers Care [place] Cutter Name Role Phone NICK, DR NIELSEN Admitting Unavailable NICK, DR NIELSEN Attending Unavailable SMITH ., VI Primary Care Unavailable NICK, DR NIELSEN Consulting Unavailable ANGEL ., DR PAULINO Consulting Unavailable ANGEL ., DR PAULINO Admitting Unavailable ANGEL ., DR PAULINO Attending Unavailable SMITH ., VI Primary Care Unavailable [place], DR NIELSEN V Consulting Unavailable ANGEL ., [...] ANGEL ., DR PAULINO Consulting Unavailable Nelida Ding Unavailable TY STRATTON Attending Unavailable NELIDA DING Referring Unavailable NELIDA DING Primary Care Unavailable YANELI Ding Primary Care Provider Junito Ortiz Attending Provider Nelida Montero Primary Care Provider Unallocated Natalie WHITE Provider Primary Care Provi aristeo [place] DO Unavailable Inna Kirkland Attending Unavailable Inna Kirkland Admitting Unavailable Nelida Ding Primary Care Unavailable [place] DO Unavailable JUNITO ORTIZ Attending Unavailable JUNITO ORTIZ Attending Unavailable JUNITO ORTIZ Referring Unavailable JUNITO ORTIZ Attending Unavailable JUNITO ORTIZ Attending Unavailable INNA KIRKLAND Attending Unavailable Allergies Allergy ClassificationReported Allergen(s)Allergy TypeDate of OnsetReaction(s) Facility (9 sources)House dust miteDrug allergyLinkStormOsteopathic Hospital [facility] Other (20 sources)PollenDrug qezpjkj72-70-3336LsrfjwjCqfcr [place] Off[facility] Other (5 sources)house dust allergenic extract; Translations: [house dust]Drug Allergy 02-36-8947Rotgege ReactionTr[facility] (5 sources)Pollen; Translations: [pollen extracts]Allergy to agiixcfjr62-41-6497 Unknown ReactionTrinity Health [facility] Medications Current Medications MedicationDrug Class(es)DatesSig (Normalized)Sig (Original)acetaminophen 300 mg / codeine phosphate 30 mg oral tablet (4 sources)Opioid AgonistStart: 01-14-2025 End: 32-38-5888rzew 1 tablet by mouth every six hours for painacetaminophen- codeine (Tylenol w/ Codeine #3) 300-30 MG tablet Indications: Other migraine with status migrainosus, not intractable Take 1 tablet by mouth every 6 (six) hours if needed for severe pain for up to 5 days 20 tablet 01/14/2025 01/19/2025 Activeatogepant 60 MG Oral Tablet [Qulipta] (1 source)take 1 tablet by mouth every twenty-four hoursQulipta 60 MG 1 tablet Orally Once a day Activedexamethasone 1 mg oral tablet (2 sources)CorticosteroidStart: 26-01-8829Ipxgokivaicev 1 MG 1 tablet Orally 11pm for 1 days Jan, ActiveDoxylamine Succinate, Sleep, (UNISOM PO) (15 sources)Doxylamine Succinate, Sleep, (UNISOM PO) Take by mouth Active fexofenadine (10 sources)Histamine-1 Receptor AntagonistStart: 13-12-1429roxnbvsqmiov ([facility]) Active PO December 25, 2023 12:00amStart: 09-19-2023 End: 82-59-5653jlhbtklhnfha ([facility] All[facility]) Discontinued PO Daily September 19, 2023 12:00am November 28, 2023 8:59amStart: 86-65-4081ryxvvyfqsknt ([facility]anche Allergy) Active PO Daily September 19, 2023 12:00amStart: 09-12-2023 End: 10-84-1067jpqaexwfeyre ([facility]anche Allergy) 180 MG tablet 09/12/2023 12/17/2024 DiscontinuedMagnesium (20 sources)Start: 07-51-3324jpzkwwzha Active PO December 25, 2023 12:00amStart: 09-03-2023 End: 00-60-8356jqqrtpbys Discontinued PO September 03, 2023 12:00am November 28, 2023 8:59amStart: 11-16-1825mdkkgnkyr Active PO September 03, 2023 12:00amStart: 77-28-6966ckiwaktvr 100 MG tablet 08/17/2022 ActiveMagnesium OTC, daily Active metoclopramide 10 mg oral tablet (17 sources)Dopamine-2 Receptor AntagonistStart: 67-94-6091suwz 1 tablet by mouth in the morning as needed for nauseametoclopramide (Reglan) 10 MG tablet Indications: Nausea and vomiting in ([facility]) TAKE 1TABLET BY MOUTH IN MORNING,AT NOON,IN EVENING 30 MINUTES PRIOR TO MEALS NEEDED FOR NAUSEA 90 tablet 1 03/23/2025 ActiveStart: 01-26-2025 End: 25-30-3102rwmyftfvdiodkq (Reglan) 10 MG tablet Indications: Nausea and vomiting in ([facility]) Take 1tablet (10 mg) by mouth in the morning and 1 tablet (10 mg) at noon and 1 tablet (10 mg) in the evening. Take before meals. Take 1 tablet by mouth 30 minutes prior to meals 3 times daily as needed for nausea. 90 tablet 1 01/26/2025 ActiveStart: 01-14-2025 End: 40-12-2333tcxe 1 tablet by mouth three times daily as neededmetoclopramide (Reglan) 10 MG tablet Indications: Nausea and vomiting in ([facility]) Take 1tablet (10 mg) by mouth 3 (three) times a day as needed (as needed prior to meals) for up to 10 days 1 tablet 01/14/2025 01/24/2025 ActiveStart: 12-16-2024 End: 40-46-8676tvyz 1 tablet by mouth before mealtime as needed for nausea metoclopramide (Reglan) 10 MG tablet Indications: Nausea and vomiting in ([facility]) TAKE 1TABLET BY MOUTH IN THE MORNING, NOON, EVENING, 30 MINUTES BEFORE MEALS NEEDED FOR NAUSEA 90 tablet 3 12/16/2024 12/17/2024 Discontinued (Ineffective)Start: 11-14-2024 End: 89-82-2233binscfgeahizpy (Reglan) 10 MG tablet Indications: Nausea and vomiting in ([facility]) Take 1tablet (10 mg) by mouth in the morning and 1 tablet (10 mg) at noon and 1 tablet (10 mg) in the evening. Take before meals. Take 1 tablet by mouth 30 minutes prior to meals 3 times daily as needed for nausea. 90 tablet 11/14/2024 12/14/2024 Activeomeprazole 20 mg delayed release oral capsule (20 sources)Proton Pump InhibitorStart: 01-26-2025 End: 62-44-0557lvas 2 capsules by mouth before mealtimeomeprazole (PriLOSEC) [address] capsule Indications: Gastroesophageal Reflux Disease , Heartburn Take 2 capsules (40 mg) by mouth in the morning. Take before meals. Do not crush or chew. 180 capsule 05/19/2025 ActiveStart: 09-03-2023 End: 15-22-6980fenu 40 mg by mouth once dailyOmeprazole Discontinued 40 MG PO Daily 90 September 03, 2023 2:16pm November 28, 2023 8:59amStart: 11-05-4019fvkb 2 capsules by mouth in the morningomeprazole (PriLOSEC) 20 mg capsule Take 2 capsules (40 mg total) by mouth in the morning. 02/21/2023 ActiveStart: 18-28-7859cciy 1 capsule by mouth once dailyOmeprazole 40 MG 1 capsule 30 minutes before morning meal Orally Once a day for 90 days Jan, Active Start: 76-23-6398bosc 1 capsule by mouth in the morningomeprazole (PriLOSEC) 20 mg capsule Take 1 capsule (20 mg total) by mouth in the morning. 0 02/21/2023 Activeondansetron 4 mg oral tablet (20 sources)Serotonin-3 Receptor AntagonistStart: 11-05-2024 End: 30-80-4852gjvm 1 tablet by mouth every six hours as needed for nausea and nausea, then take 1 tablet by mouthevery six hours as needed for nausea and nauseaondansetron (Zofran) 4 MG tablet Indications: Nausea and vomiting in ([facility]) Take 1 tablet (4 mg) by mouth every 6 (six) hours if needed for nausea or vomiting for up to 30 doses Take 1 tablet by mouth every 6 hours as needed for nausea. 30 tablet 3 01/14/2025 ActiveStart: 09-03-2023 End: 72-71-5390itsm 4 mg by mouth once dailyOndansetron Hcl Active 4 MG PO Daily December 25, 2023 12:36pmStart: 09-79-2554occd 1 tablet by mouth every twenty-four hoursOndansetron HCl 4 MG 1 tablet Orally Once a day for 14 days Jun, Active End: 79-64-4890qtfh 1 tablet by mouth every eight hours as neededondansetron ODT (Zofran-ODT) 4 MG disintegrating tablet Take 4 mg by mouth every 8 (eight) hours ifneeded 12/17/2024 Discontinuedtake 1 tablet by mouth every six hours as neededOndansetron HCl 4 MG 1 tablet on the tongue and allow to dissolve Orally every 6 hours as needed Not-Taking/PRNpantoprazole 40 mg delayed release oral tablet (15 sources)Proton Pump InhibitorStart: 12-17-2024 End: 09-72-0870mwmt 1 tablet by mouth before mealtimepantoprazole (Protonix) 40 MG EC tablet Indications: Gastroesophageal reflux disease with esophagitis, unspecified whether hemorrhage Take 1 tablet (40 mg) by mouth in the morning. Take before meals.Do not crush, chew, or split. 30 tablet 11 12/17/2024 12/17/2025 Activepolysaccharide iron complex 391 mg oral capsule (3 sources)Start: 04-01-2025 End: 68-30-5147sodu 1 capsule by mouth once dailyiron polysaccharides (ProFe) 391.3 (180 Fe) MG capsule Indications: Low iron Take 1 capsule (391.3 mg) by mouth Daily 30 capsule 6 04/01/2025 05/01/2025 ActiveProbiotic Product (PROBIOTIC ADVANCED PO) (17 sources)Probiotic Product (PROBIOTIC ADVANCED PO) Probiotic Active promethazine hydrochloride 12.5 mg oral tablet (8 sources)PhenothiazineStart: 80-94-7417rzjj 1 tablet by mouth every eight hours as needed for nausea and nausea, then take 1 tablet by mouth every six hours as needed for nausea and nauseapromethazine (Phenergan) 12.5 MG tablet Indications: Nausea and vomiting in ([facility]) Take 1 tablet (12.5 mg) by mouth every 8 (eight) hours if needed for nausea or vomiting for up to 30 dos es Take 1 tablet by mouth every 6 hours as needed for nausea. 30 tablet 2 02/18/2025 Activepyridoxine hydrochloride 25 mg oral tablet (15 sources)take 1 tablet by mouth once dailypyridoxine (Vitamin B-6) 25 MG tablet Take 25 mg by mouth Daily Activequlipta 60 mg tablet (3 sources)take 1 tablet by mouth every twenty-four hoursQulipta 60 MG 1 tablet Orally Once a day Activerizatriptan 10 mg oral tablet (13 sources)Serotonin-1b and Serotonin-1d Receptor AgonistStart: 07-04-2024 rizatriptan (MAXALT) 10 mg tablet Indications: Migraine without aura and without status migrainosus, not intractable TAKE 1 TABLET AT ONSET OF MIGRAINE MAY REPEAT DOSE AFTER 2HRS IF MIGRAINE PERSISTSMAX 2/24HR 12 tablet 2 07/04/2024 ActiveStart: 87-98-0436zdczyscltlg (MAXALT) 10 mg tablet Indications: Migraine without aura and without status migrainosus, not intractable Take 1 tablet just after onset of migraine. May repeat the dose after 2 hours if migraine persists. Max of 2 doses per 24 hours. 12 tablet 2 09/05/2023 ActiveStart: 05-23-2023 End: 26-38-3740fzof 5 mg by mouth once dailyRizatriptan Discontinued 5 MG PO Daily September 03, 2023 12:00am November 28, 2023 8:59amverapamil hydrochloride 120 mg extended release oral tablet (2 sources)Calcium Channel BlockerStart: 31-96-9035omur 1 tablet by mouth once dailyverapamil SR (CALAN-SR) 120 mg CR tablet Indications: Migraine without aura and without status migrainosus, not intractable Take 1 tablet (120 mg total) by mouth nightly. 30 tablet 5 09/05/2023 Activezolpidem tartrate 10 mg oral tablet (12 sources)gamma-Aminobutyric Acid-ergic AgonistStart: 01-14-2025 End: 92-46-8416Gdbkfb 10 MG tablet Indications: related fatigue in second trimester ([facility]) , Insomnia, unspecified type Take 1 tablet (10 mg) by mouth as needed at bedtime for sleep for up to 5 days 5 tablet 01/14/2025 Active Completed/Discontinued Medications MedicationDrug Class(es)DatesSig (Normalized)Sig (Original)Atogepant (4 sources)Start: 09-03-2023 End: 78-04-8478qibw 60 mg by mouth once dailyAtogepant Discontinued 60 MG PO Daily September 03, 2023 12:00am September 19, 2023 11:04amatogepant (QULIPTA) 60 mg tablet (2 sources)Start: 05-23-2023 End: 11-62-6893wqcu 1 tablet by mouth in the morningatogepant (QULIPTA) 60 mg tablet Indications: Migraine without aura and without status migrainosus,not intractable Take 60 mg by mouth in the morning. 30 tablet 5 05/23/2023 09/05/2023 DiscontinuedStart: 82-84-9294onxu 1 tablet by mouth in the morning atogepant (QULIPTA) 60 mg tablet Indications: Migraine without aura and without status migrainosus,not intractable Take 60 mg by mouth in the morning. 30 tablet 5 05/23/2023 Ukwvjd68 hr buPROPion hydrochloride 150 mg extended release oral tablet (20 sources)AminoketoneStart: 09-19-2023 End: 26-72-1633zbou 150 mg by mouth once dailyBupropion Hcl Discontinued 150 MG PO Daily 90 90 September 19, 2023 11:41am November 28, 2023 8:59amStart: 09-03-2023 End: 80-29-4951lces 1 tablet by mouth once dailyBupropion Hcl (Wellbutrin Xl) 300 mg tablet extended release 24 hr Discontinued 300 MG PO Daily 90 September 03, 2023 2:17pm September 19, 2023 11:41amtake 2 tablets by mouth every twenty- four hours in the morningbuPROPion XL (WELLBUTRIN XL) 150 mg 24 hr tablet Take 2 tablets (300 mg total) by mouth in the morning. Activetake 1 tablet by mouth every twenty-four hoursWellbutrin XL 300 MG 1 tablet in the morning Orally Once a day for 90 days Activetake 1 tablet by mouth every twenty-four hours in the morningbuPROPion XL (WELLBUTRIN XL) 150 mg 24 hr tablet Take 1 tablet (150 mg total) by mouth in the morning. 0 Activetake 1 tablet by mouth every twenty-four hoursWellbutrin XL 150 MG 1 tablet in the morning Orally Once a day for 90 days Activefamotidine 10 mg oral tablet (5 sources)Histamine-2 Receptor Antagonist End: 92-13-3918xoflpllqdq (Pepcid) 10 MG tablet Take by mouth 01/14/2025 Discontinuedmagnesium oxide 250 mg oral tablet (2 sources) End: 59-86-6213bhxx 1 tablet by mouth in the morningmagnesium oxide 250 mg tablet Take 1 tablet (250 mg total) by mouth in the morning. 0 09/05/2023 Dis continuedPNV no.95/ferrous fum/folic ac ( ORAL) (2 sources) End: 06-50-1957tqjt 1 tablet by mouth once daily before mealtimePNV no.95/ferrous fum/folic ac ( ORAL) Take 1 tablet by mouth daily. 0 09/05/2023 Discontinuedtake 1 tablet by mouth once daily before mealtimePNV no.95/ferrous fum/folic ac ( ORAL) Take 1 tablet by mouth daily. 0 Activepropranolol hydrochloride 20 mg oral tablet (4 sources)beta-Adrenergic BlockerStart: 05-23-2023 End: 76-83-8698vvbrcuttagO (INDERAL) 20 mg tablet Indications: Migraine without aura and without status migrainosus, not intractable Take 1 tablet (20 mg) twice daily for 3 days, then reduce to 1 tablet daily for 3days, then discontinue 9 tablet 0 05/23/2023 09/05/2023 Discontinuedtake 1 tablet by mouth at bedtime Propranolol HCl 60 MG 1 tablet Orally HS for migraines Activevitamin B12 (5 sources)Vitamin I78Flbmedc B12 Not-Taking Problems Active Problems Problem ClassificationProblemDateDocumented DateEpisodic/ChronicAnxiety disorders (17 sources)Anxiety; Translations: [Anxiety disorder, unspecified]ChronicComa; stupor; and brain damage (2 sources)Somnolence; Translations: [Daytime somnolence]Onset: 09-05-2023 38-59-5839PpohmphhVgyoyehqce associated with dizziness or vertigo (12 sources)Dizziness; Translations: [Dizziness and giddiness]EpisodicEsophageal disorders (9 sources)Gastroesophageal reflux disease; Translations: [Gastro-esophageal reflux disease without esophagitis]74-51-4933WtvtsdeBetagcxd; including migraine (20 sources)Migraine; Translations: [Migraine, unspecified, not intractable, without status migrainosus]Onset: 88-96-9064NerflluKfhsy valve disorders (6 sources)Tachycardia; Translations: [Unspecified abnormalities of heart beat] 28-29-9300LdawqrdfJmoxsxxhbrazf and screening for infectious disease (3 sources)Encounter for screening for human papillomavirus (HPV); Translations: [Exposure to sexually transmissible disorder]Onset: 131212-06-4912Tuurylym Malaise and fatigue (1 source)Other fatigue; Translations: [OTHER FATIGUE]Onset: 74-15-0603Tnentbrz Menstrual disorders (5 sources)Irregular menstruation, unspecified; Translations: [Missed period] Onset: 17-73-9521OiuzfknNngy disorders (13 sources)Depressive disorder; Translations: [Major depressive disorder, single episode, unspecified]77-42-5018OivptszPsjhab and vomiting (18 sources)Nausea; Translations: [Nausea]Onset: 88-84-6331VjndfctmMjmyx bone disease and musculoskeletal deformities (1 source)Segmental and somatic dysfunction of pelvic region; Translations: [Segmental and somatic dysfunction of pelvic region]Onset: 75-69-7342Qrbiyvmc Other complications of (6 sources)Vomiting of , unspecified; Translations: [Unspecified vomiting of , unspecified as to episode of care or not applicable] 57-13-1715CoheadyrKqwdo complications of (2 sources)High risk ; Translations: [Supervision of with other poor reproductive or obstetric history, unspecified trimester]12-17-2024 EpisodicOther complications of (2 sources)Fatigue during ; Translations: [ related exhaustion and fatigue, second trimester]58-77-6761CjekpxehElhtl complications of (2 sources) size does not accord with dates; Translations: [Uterine size- date discrepancy, unspecified trimester]39-75-9932JuzhasqaGitch endocrine disorders (5 sources)Other adrenocortical overactivity; Translations: [OTHER ADRENOCORTICAL OVERACTIVITY]Onset: 95-12-6322TinvjmnVqvgz endocrine disorders (9 sources)Dehydroepiandrosterone sulfate level; Translations: [Other specified disorders of adrenal gland]ChronicOther endocrine disorders (9 sources)Increased cortisol level; Translations: [Other adrenocortical overactivity]ChronicOther endocrine disorders (2 sources)Other specified disorders of adrenal glandChronicOther female genital disorders (2 sources)Vaginal discharge; Translations: [Other specified noninflammatory disorders of vagina]32-59-1961EouspmbgKhyij and delivery including normal (20 sources); Translations: [Encounter for supervision of normal , unspecified, unspecified trimester]Onset: EpisodicOther screening for suspected conditions (not mental disorders or infectious disease) (20 sources)Encounter for screening for malignant neoplasm of cervix; Translations: [Other specified abnormal findings of blood chemistry]Onset: 30-90-0927VvrfjiclHpmtm upper respiratory disease (13 sources)Seasonal allergy; Translations: [Other seasonal allergic rhinitis] 71-13-1836QtjpiwyGrjgz upper respiratory infections (1 source)Acute upper respiratory infection, unspecifiedEpisodicResidual codes; unclassified (2 sources)Gestation period, 11 weeks; Translations: [11 weeks gestation of ]91-11-0712QjwygcxwCujutwxe codes; unclassified (2 sources)Gestation period, 15 weeks; Translations: [15 weeks gestation of ]57-17-0688FqwpistdWzngadth codes; unclassified (2 sources)Insomnia; Translations: [Insomnia, unspecified]53-92-2664Tzgmudks Residual codes; unclassified (2 sources)Gestation period, 20 weeks; Translations: [20 weeks gestation of ]57-60-9162RprmmvosPxygbotq codes; unclassified (2 sources)Gestation period, 24 weeks; Translations: [24 weeks gestation of ]57-92-2839MdeijqmrVmypfait codes; unclassified (2 sources)Gestation period, 28 weeks; Translations: [28 weeks gestation of ]67-19-0536Qdqiqbsp Past or Other Problems Problem ClassificationProblemDateDocumented DateEpisodic/ChronicAbdominal pain (4 sources)Unspecified abdominal pain; Translations: [UNSPECIFIED ABDOMINAL PAIN]Onset: 81-77-5239HqjhnbvsPihnwrbqyyen injury (5 sources)Personal history of traumatic brain injury; Translations: [History of concussion injury of brain]Onset: 891016-34-7492UdfknuesGmsb disorders (3 sources)Mood disordersOnset: Other complications of ; puerperium affecting management of mother (3 sources)Central nervous system malformation in fetus affecting obstetrical care; Translations: [Choroid plexus cyst of fetus affecting care of mother, antepartum]Onset: 437153-88-4170MgeewrswSiymk endocrine disorders (1 source)Endocrine disorder, unspecified; Translations: [ENDOCRINE DISORDER UNSPECIFIED]Onset: 10-24-6242VjmxwqruVwjkx endocrine disorders (1 source)Other specified endocrine disorders; Translations: [Other specified endocrine disorders]Onset: 41-57-5158LipfkeyvDysvd endocrine disorders (4 sources)Cyst of pineal gland; Translations: [Other specified endocrine disorders]Onset: 320049-78-8346CdonihmpMrref gastrointestinal disorders (1 source)Abdominal distension (gaseous); Translations: [ABDOMINAL DISTENSION GASEOUS]Onset: 51-21-5320ErbfeezfQioofmx cyst (1 source)Other ovarian cyst, right side; Translations: [OTHER OVARIAN CYST RIGHT SIDE]Onset: 91-78-9522Zvhigwas Results Test NameValueInterpretationReference RangeFacilityUrinalysis macro (dipstick) panel (U)on 55-46-4598Aodydtyzx, UANegativeNegative - 4(70) +++ mg/dLNOMS HealthcareBlood, UANegativeNegative - 50 Cj/mcLNOMS HealthcareClarity, UAClear NOMS HealthcareColor, UAYellowNOMS HealthcareGlucose, UANegativeNegative - 1999(110) ++++ mg/dLNOMS HealthcareInterpretation and review of laboratory resultsAbnormalNOMS HealthcareKetones, UANegativeNegative - 160(16) ++++ mg/dL NOMS HealthcareLeukocytes, UATraceNegative - 500+++ Cosmo/mcLNOMS Healthcare Nitrite, UANegativeNegative - PositiveNOMS HealthcarepH, UA6.05 - 9NOMS HealthcareProtein, UATraceNegative - 2000(20) ++++ mg/dLNOMS HealthcareSpec Grav, UA1.0201 - 1.03NOMS HealthcareUrobilinogen, UA2.00.2 - 12 mg/dLNOMS HealthcareNOMS HealthcareGLUCOSE 1 HOURon 88-89-5524Veboyin [Mass/Vol]114 mg/dL NINF - 130 mg/dLNOMS HealthcareCLINISYNCNOMS HealthcareUS OB LIMITED 1+ FETUSES on 90-96-2727CP OB LIMITED 1+ FETUSESFINDINGS: Breech presentation. Heart rate 132. Morphology is grossly normal, which includes thoracolumbar, lumbosacral, distal lumbar evaluation. Gestational age of 24 weeks and 3 days, estimated delivery date of July 05, 2025. IMPRESSION: Single viable intrauterine , appropriate thoracolumbar, lumbosacral anatomy for this age. TRANSCRIBED BY: ELECTRONICALLY SIGNED BY: Funmi BatesNot AvailableComment on above:Order Comment: US OB INCOMPLETE ANATOMY Estimated Date of Delivery: 07/05/25 Gestational Age as of 02/25/2025: 93b5pVfvjpmklpd macro (dipstick) panel (U)on 64-94-3083Eagsfsmwv, UANegativeNegative - 4(70) +++ mg/dLNOMS HealthcareBlood, UANegativeNegative - 50 Cj/mcLNOMS HealthcareClarity, UAClearNOMS Healthcare Color, UAYellowNOMS HealthcareGlucose, UANegativeNegative - 2000(110) ++++ mg/dL NOMS HealthcareInterpretation and review of laboratory resultsNormalNOMS HealthcareKetones, UANegativeNegative - 160(16) ++++ mg/dLNOMS Healthcare Leukocytes, UANegativeNegative - 500+++ Cosmo/mcLNOMS HealthcareNitrite, UA NegativeNegative - PositiveNOMS HealthcarepH, UA6.55 - 9NOMS HealthcareProtein, UANegativeNegative - 2000(20) ++++ mg/dLNOMS HealthcareSpec Grav, UA1.011 - 1.03 NOMS HealthcareUrobilinogen, UA1.00.2 - 12 mg/dLNOMS HealthcareNOMS Healthcare Urinalysis macro (dipstick) panel (U)on 67-50-9210Xlbictxxw, UANegativeNegative - 4(70) +++ mg/dLNOMS HealthcareBlood, UANegativeNegative - 50 Cj/mcLNOMS HealthcareClarity, UAClearNOMS HealthcareColor, UAYellowNOMS HealthcareGlucose, UANegativeNegative - 1999(110) ++++ mg/dLNOMS HealthcareInterpretation and review of laboratory resultsAbnormalNOMS HealthcareKetones, UANegativeNegative - 160(16) ++++ mg/dLNOMS HealthcareLeukocytes, UAPositiveNegative - 500+++ Cosmo/mcLNOMS HealthcareNitrite, UANegativeNegative - PositiveNOMS HealthcarepH, UA65 - 9NOMS HealthcareProtein, UANegativeNegative - 2000(20) ++++ mg/dLNOMS HealthcareSpec Grav, UA1.0251 - 1.03NOFL HealthcareUrobilinogen, UA1.00.2 - 12 mg/dLNOMS HealthcareNOFL HealthcareIGP,APTIMA HPV,AGE GDLNon 54-16-8485VAN GDLN ACOG TESTINGNote.[facility] HealthcareComment on above:TESTS RESULT FLAG UNITS REF RANGE LAB Clinician Provided Cytology Information Source.............Endocervix No. of containers..01 ThinPrep Vial Age Algo ACOG Marina... FLAG LEGEND: L-Low Normal,H-High Normal,LL-Alert Low,HH-Alert High <-Panic Low,>-Panic High,A-Abnormal,AA-Critical Abnormal Performed at: 01 =[facility] [address] Maliha Cobb MD, IGP, RFX APTIMA HPV ASCUNote.NOMS HealthcareComment on above:TESTS RESULT FLAG UNITS REF RANGE LAB DIAGNOSIS: 02 NEGATIVE FOR INTRAEPITHELIAL LESION OR MALIGNANCY. Specimen adequacy: 02 Satisfactory for evaluation. No endocervical component is identified. Performed by: Santi Gregory, Stunner ([facility]) . 02 Note: Note 02 The Pap [...] result therefore, no HPV testing was performed. FLAG LEGEND: L-Low Normal,H-High Normal,LL-Alert Low,HH-Alert High <-Panic Low,>-Panic High,A-Abnormal,AA-Critical Abnormal Performed at: [address] [address] Maliha Cobb MD, Performed at: =[address] [id number] Manager Of Customer Billing: Maliha Cobb MD, Phone: [phone] Performed at: [address] [id number] Manager Of Customer Billing: Maliha Cobb MD, Phone: [phone] SPATULA-ALONE ENDOCERVIX CLINISYNCNOMS HealthcareRECURRENT VAGINITIS (HTRX)on 13-23-8470ZOLHQJFAS VAGINAE 0NOMS HealthcareATOPOBIUM VAGINAENot detectedNOMS HealthcareBVAB 2,3 (BACTERIAL VAGINOSIS ASSOCIATED BACTERIA 2, 3); MOBILUNCUS CTE5YNCG HealthcareBVAB 2,3 (BACTERIAL VAGINOSIS ASSOCIATED BACTERIA 2, 3); MOBILUNCUS SPPNot detectedNOMS HealthcareCANDIDA ALBICANS, PARAPSILOSIS, [id number] HealthcareCANDIDA ALBICANS, PARAPSILOSIS, TROPICALISNot detectedNOMS HealthcareCANDIDA GLABRATA0 NOMS HealthcareCANDIDA GLABRATANot detectedNOMS HealthcareCANDIDA [id number] HealthcareCANDIDA KRUSEINot detectedNOMS HealthcareCHLAMYDIA [id number] HealthcareCHLAMYDIA TRACHOMATISNot detectedNOMS HealthcareGARDNERELLA VAGINALIS0 NOMS HealthcareGARDNERELLA VAGINALISNot detectedNOMS HealthcareMEGASPHAERA (TYPES 1, 2)0NOMS HealthcareMEGASPHAERA (TYPES 1, 2)Not detectedNOMS Healthcare MYCOPLASMA [id number] HealthcareMYCOPLASMA GENITALIUMNot detectedNOMS HealthcareNEISSERIA [id number] HealthcareNEISSERIA GONORRHOEAENot detected NOMS HealthcareTRICHOMONAS [id number] HealthcareTRICHOMONAS VAGINALISNot detectedNOMS HealthcareNOMS HealthcareUS OB 14+ WEEKS ANATOMY SCANon 01-14-2025 US OB 14+ WEEKS ANATOMY SCAN [...] TRANSCRIBED BY: ELECTRONICALLY SIGNED BY: Himanshu Nogueira MDNoerlindaalNot AvailableComment on above:Order Comment: US OB ANATOMY SINGLE W US OB CERVICAL LENGTH Estimated Date of Delivery: 07/05/25 Gestational Age as of 01/14/2025: 72f0hVunrleglup macro (dipstick) panel (U)on 47-62-9577Obpqtiywl, UANegativeNegative - 4(70) +++ mg/dLNOMS HealthcareBlood, UANegativeNegative - 50 Cj/mcLNOMS HealthcareClarity, UAClearNOMS Healthcare Color, UAYellowNOMS HealthcareGlucose, UANegativeNegative - 2000(110) ++++ mg/dL NOMS HealthcareInterpretation and review of laboratory resultsNormalNOMS HealthcareKetones, UANegativeNegative - 160(16) ++++ mg/dLNOFL Healthcare Leukocytes, UANegativeNegative - 500+++ Cosmo/mcLNOFL HealthcareNitrite, UA NegativeNegative - PositiveNOMS HealthcarepH, UA65 - 9NOMS HealthcareProtein, UA NegativeNegative - 1999(20) ++++ mg/dLNOMS HealthcareSpec Grav, UA1.021 - 1.03 NOMS HealthcareUrobilinogen, UA1.00.2 - 12 mg/dLNOMS HealthcareNOFL Healthcare Urinalysis macro (dipstick) panel (U)on 44-44-6375Nbnltefeu, UANegativeNegative - 4(70) +++ mg/dLNOMS HealthcareBlood, UANegativeNegative - 50 Cj/mcLNOFL HealthcareClarity, UAClearNOMS HealthcareColor, UAYellowNOFL HealthcareGlucose, UANegativeNegative - 1999(110) ++++ mg/dLNOFL HealthcareInterpretation and review of laboratory resultsAbnormalNOMS HealthcareKetones, UANegativeNegative - 160(16) ++++ mg/dLNOFL HealthcareLeukocytes, UAPositiveNegative - 500+++ Cosmo/mcLNOFL HealthcareComment on above:smallNitrite, UANegativeNegative - PositiveNOMS HealthcarepH, UA5.55 - 9NOMS HealthcareProtein, UANegativeNegative - 2000(20) ++++ mg/dLNOMS HealthcareSpec Grav, UA1.031 - 1.03NOFL Healthcare Urobilinogen, UA0.20.2 - 12 mg/dLNOMS HealthcareNOMS HealthcareALL CBC WITH AUTO DIFFon 57-31-4290IHDSDMTTO ABSOLUTE AUTO0.1NOMS HealthcareBasophils/100 WBC (Bld)0.4 %0.2 - 2.0 %NOMS HealthcareEosinophils/100 WBC (Bld)0.9 %0.9 - 7.0 % NOMS HealthcareErythrocyte distribution width (RBC) [Ratio]13.4 %11.0 - 15.0 % NOMS HealthcareHematocrit (Bld) [Volume fraction]43.2 %36.0 - 48.0 %[facility] MonettHemoglobin (Bld) [Mass/Vol]15.2 g/dL12.0 - 16.0 g/dLCox Monett IMMATURE GRANULOCYTES ABS AUTO0.05HighNOHCA Midwest DivisionImmature granulocytes/100 WBC (Bld)0.4 %0.0 - 0.5 %[facility] MonettInterpretation and review of laboratory resultsAbnormalCox MonettLYMPHOCYTES ABSOLUTE AUTO2.3NOHCA Midwest Division Lymphocytes/100 WBC (Bld)17.1 %Low20.5 - 60.0 %[facility] CenterH (RBC) [Entitic mass]29.9 pg26.7 - 34.0 pgRusk Rehabilitation CenterHC (RBC) [Mass/Vol]35.2 g/dL29.9 - 35.2 g/dLRusk Rehabilitation CenterV (RBC) [Entitic vol]85 fL81.0 - 99.0 fLCox MonettMONOCYTES ABSOLUTE AUTO0.7Cox MonettMonocytes/100 WBC (Bld)5.5 % 1.7 - 12.0 %[facility] MonettNEUTROPHILS ABSOLUTE AUTO10.3HighCox Monett Neutrophils/100 WBC (Bld)75.7 %High43.0 - 75.0 %[facility] MonettPlatelet mean volume (Bld) [Entitic vol]11.8 fL9.5 - 13.5 fLCox MonettTB EO #0.1NOMS [facility] JSE408GUGAWestern [facility] Mental [facility] RBC5.08NOMS [facility] WBC13.6HighCox MonettCLINISYNCNOMS Medina HospitalHCG ( test) Ql (U)on 12-05-2024 Interpretation and review of laboratory resultsAbnormalCox MonettPreg Test, UrPositiveNegativeAtrium HealthUS OB TRANSVAGINALon 12-05-2024 US OB TRANSVAGINALEXAM: US OB TRANSVAGINAL HISTORY: Dating. COMPARISON: None [...] to a gestational age of 10 weeks 0days (+/- 6 days). There is a 1.4 [...] II, MD, PHD at 06-Dec-2024 08:41:12 AM [facility] TeleradiologyNormalNot AvailableComment on above:Order Comment: US OB TRANSVAGINAL No LMP recorded.Urinalysis macro (dipstick) panel (U)on 95-67-2494Rcapgsbcy, UA NegativeNegative - 4(70) +++ mg/dLNOMS HealthcareBlood, UANegativeNegative - 50 Cj/mcLNOFL HealthcareClarity, UAClearNOMS HealthcareColor, UAYellowNOFL HealthcareGlucose, UANegativeNegative - 2000(110) ++++ mg/dLNOFL Healthcare Interpretation and review of laboratory resultsAbnormalNOMS HealthcareKetones, UANegativeNegative - 160(16) ++++ mg/dLNOMS HealthcareLeukocytes, UAPositive Negative - 500+++ Cosmo/mcLNOMS HealthcareNitrite, UANegativeNegative - Positive NOMS HealthcarepH, UA75 - 9NOMS HealthcareProtein, UAPositiveNegative - 2000(20) ++++ mg/dLNOMS HealthcareSpec Grav, UA1.021 - 1.03NOMS HealthcareUrobilinogen, UA1.00.2 - 12 mg/dLNOMS HealthcareNOMS HealthcareCORTISOL 24HR URINEon 77-66-5394Gknyecwb,F,ug/24hr,U26 ug/24 hrNormal6-42[facility] [place] Regional HospitalComment on above:Performed By: #### CORT24 #### [facility] [address], [place] [address] Dr. Lucretia ZamudioCortisol,F,ug/L,U10 ug/LNormalUndefinedEast [place] Regional Hospital Comment on above:Performed By: #### CORT24 #### [facility] [address], [place] [address] Dr. Lucretia ZamudioCT ABDOMEN WO/W CONon 30-05-9737FY ABDOMEN WO/W CONCLINICAL HISTORY: Blood chemistry abnormal. Elevated DHEA, nausea, [...] Electronically authenticated by: YOVANY CLARK Date: 2022-08-27 08:37[facility] SERUMon 51-21-6045Rrgfbbmplycflrwnfiwegp (DHEA)1255 ng/dL Critically ifmz44-580XscEast [place] Regional HospitalComment on above:Result Comment: Age 1 - 5 years 0 - 67 6 - 7 years 0 - 110 8 - 10 years 0 - 185 11 - 12 years 0 - 201 13 - 14 years 0 - 318 15 - 16 years 39 - 481 17 - 19 years 40 - 491 >19 years 31 - 701Performed By: #### DHEA. #### [facility] [address] [place] [address] Dr. Lucretia ZamudioTESTOSTERONE, FREE,DIRECT, TOTALon 05-29-7295Bsyy Testosterone(Direct)2.8 pg/mLNormal0.0-4.2[facility] [place] Regional HospitalComment on above: Result Comment: Performed at: BNPerformed By: #### TESTFRD #### [facility] [address] [place] [address] Dr. Lucretia ZamudioTestosterone [Mass/Vol]42 ng/kMKddyur94-88Rdh [facility] Comment on above:Result Comment: Performed at: CBPerformed By: #### TESTFRD #### [facility] [address] [place] [address] Dr. Lucretia ZamudioCORTISOL Shiv 34-30-6510Ylrnievq AM23.4 ug/dLCritically high 6.2-19.4The [facility] HospitalComment on above:Performed By: #### PROGES #### [facility] [address] [place] [address] Dr. Lucretia ZamudioDHEA-SULFATEon 34-75-6253EPKP-Qpoggvr970.0 ug/jKJetzbf43.8-378.0 The [facility] HospitalComment on above:Performed By: #### LBCLH #### [facility] [address] [place] [address] Dr. Boykin ChangESTRADIOLon 48-11-5061Dlnvjoggs554.0 pg/mLNormalThe [facility] HospitalComment on above:Result Comment: Adult Female: Follicular phase 12.5 - 166.0 Ovulation phase 85.8 - 498.0 Luteal phase 43.8 - 211.0 Postmenopausal <6.0 - 54.7 1st trimester 215.0 - >4300.0 Dona ECLIA methodologyPerformed By: #### ESTRADI #### [facility] [address] [place] [address] Dr. Lucretia Padilla 21-03-4005MIN8.0 mIU/mLNBarberton Citizens HospitalComment on above:Result Comment: Adult Female: Follicular phase 3.5 - 12.5 Ovulation phase 4.7 - 21.5 Luteal phase 1.7 - 7.7 Postmenopausal 25.8 - 134.8Performed By: #### LBCFSH #### [facility] [address] [place] [address] Dr. Lucretia ZamudioLUTEINIZING HORMONE (LH)on 17-73-1676WA2.7 mIU/mLNBarberton Citizens HospitalComment on above:Result Comment: Adult Female: Follicular phase 2.4 - 12.6 Ovulation phase 14.0 - 95.6 Luteal phase 1.0 - 11.4 Postmenopausal 7.7 - 58.5Performed By: #### LBCLH #### [facility] [address] [place] [address] Dr. Lucretia ZamudioPROGESTERONEon 26-67-2302Yhegdubbksih5.2 ng/mLNBarberton Citizens HospitalComment on above:Result Comment: Follicular phase 0.1 - 0.9 Luteal phase 1.8 - 23.9 Ovulation phase 0.1 - 12.0 First trimester 11.0 - 44.3 Second trimester 25.4 - 83.3 Third trimester 58.7 - 214.0 Postmenopausal 0.0 - 0.1Performed By: #### PROGES #### [facility] [address] [place] [address] Dr. Lucretia ZamudioFREE T4on 53-70-3582Mher T4 [Mass/Vol]1.13 ng/dLNormal0.76-1.46 [facility] [place] [facility] HospitalComment on above:Performed By: #### FT4 #### [facility] [address] [place] [address] Dr. Lucretia ZamudioGLYCOHEMOGLOBIN A1Con 49-70-3445JZK RECOMMENDATIONSEE BELOWNormal The [facility] HospitalComment on above:Result Comment: ADA RECOMMENDED LIMIT 4.0 - 6.0 ADA THERAPEUTIC TARGET < 7.0 ACTION SUGGESTED > 7.0Performed By: #### PROGES #### [facility] [address] [place] [address] Dr. Lucretia ZamudioGlucose [Mass/Vol]105 mg/dLNoHighland District HospitalComment on above:Performed By: #### PROGES #### [facility] [address] [place] [address] Dr. Lucretia ZamudioHbA1c (Bld) [Mass fraction]5.3 %Normal4.5-6.2The [facility] HospitalComment on above:Performed By: #### PROGES #### [facility] [address] [place] [address] Dr. Lucretia GreenHoaislinn 02-89-1211NGR8.971 uIU/mLNormal0.358-3.740The [facility] HospitalComment on above:Performed By: #### TSH #### [facility] [address] [place] [address] Dr. Lucretia ZamudioUS PELVIS AND TRANSVAGon 42-52-3134RA PELVIS AND TRANSVAG EXAMINATION: US PELVIS AND [...] Electronically authenticated by: GIA PRESCOTT Date: 2022-08-02 18:42[facility], Edwin ShawAMYLASEon 38-63-5854Vffilvm [Catalytic activity/Vol]50 U/L Okdnzq47-362Olz [facility] HospitalComment on above:Performed By: #### PROGES #### [facility] [address] [place] [address] [address] Lucretia Donovan AUTO DIFFon 21-32-3363SCUI #0.1 103/ulNormal0.0-0.1The [facility] HospitalComment on above:Performed By: #### CBC #### [facility] [address] [address] [address] Lucretia ZamudioBasophils/100 WBC (Bld)0.9 %Normal0.2-2.0The [facility] Comment on above:Performed By: #### CBC #### [facility] [address] [place] [address] Dr. Lucretia Lynne #0.4 103/ulNormal0.0-0.7The [facility] HospitalComment on above: Performed By: #### CBC #### [facility] [address] [place] [address] Dr. Lucretia Huntosinophils/100 WBC (Bld)3.4 %Normal0.9-7.0The [facility] Comment on above:Performed By: #### CBC #### [facility] [address] [place] [address] Dr. Lucretia Huntrythrocyte distribution width (RBC) [Ratio]12.7 %Drctnt40.0-15.0 The [facility] HospitalComment on above:Performed By: #### CBC #### [facility] [address] [place] [address] Dr. Lucretia ZamudioHematocrit (Bld) [Volume fraction]44.1 %Krcwah50.0-48.0The [facility] HospitalComment on above:Performed By: #### CBC #### [facility] [address] [place] [address] Dr. Lucretia ZamudioHemoglobin (Bld) [Mass/Vol]14.5 g/aLJdlcaj08.0-16.0The [facility] HospitalComment on above:Performed By: #### CBC #### [facility] [address] [place] [address] Dr. Lucretia Gomez #0.03 10e3/ulNormal0.00-0.03The [facility] HospitalComment on above:Performed By: #### CBC #### [facility] [address] [address] [address] Lucretia Gomez %0.3 %Normal0.0-0.5The [facility] on above: Performed By: #### CBC #### [facility] [address] [address] [address] Lucretia Brush #2.9 103/ulNormal1.2-3.8The [facility] HospitalCommclaren [facility] on above:Performed By: #### CBC #### [facility] [address] [place] [address] Dr. Lucretia Harrishocytes/100 WBC (Bld)24.9 %Eebgzh98.5-60.0The [facility] HospitalCommclaren [facility] hospital on above:Performed By: #### CBC #### [facility] [address] [place] [address] Dr. Lucretia Krishnan DIFF REQNONormalThe [facility] HospitalComment on above: Performed By: #### CBC #### [facility] [address] [place] [address] Dr. Lucretia James (RBC) [Entitic mass]28.9 rkLyyegh21.7-34.0The [facility] on above:Performed By: #### CBC #### [facility] [address] [place] [address] Dr. Lucretia Simmons (RBC) [Mass/Vol]32.9 g/gNChiaes82.9-35.2The [facility] Hospital - Youngstownment on above:Performed By: #### CBC #### [facility] [address] [place] [address] Dr. Lucretia Simmons (RBC) [Entitic vol]87.8 aXHwouev03.0-99.0The [facility] on above:Performed By: #### CBC #### [facility] [address] [place] [address] Dr. Lucretia Lemus #0.6 103/ulNormal0.3-0.8The [facility] HospitalComment on above:Performed By: #### CBC #### [facility] [address] [place] [address] Dr. Lucretia Manzoocytes/100 WBC (Bld)5.4 %Normal1.7-12.0[facility] [place] [facility] Comment on above:Performed By: #### CBC #### [facility] [address] [place] [address] Dr. Lucretia Waterman #7.6 103/ulCritically high1.4-6.5The [facility] Comment on above:Performed By: #### CBC #### [facility] [address] [place] [address] Dr. Lucretia Wagnerutrophils/100 WBC (Bld)65.1 %Fmxtju58.0-75.0The [facility] HospitalComment on above:Performed By: #### CBC #### [facility] [address] [place] [address] Dr. Lucretia Ocampolet mean volume (Bld) [Entitic vol]10.0 fLNormal9.5-13.5The [facility] HospitalComment on above:Performed By: #### CBC #### [facility] [address] [place] [address] Dr. Lucretia ZamudioPLT277 103/joDtffbb115-649Afz [facility] HospitalComment on above: Performed By: #### CBC #### [facility] [address] [place] [address] Dr. Lucretia ZamudioRBC5.02 106/ulNormal4.20-5.40The [facility] HospitalComment on above:Performed By: #### CBC #### [facility] [address] [place] [address] Dr. Lucretia ZamudioWBC11.6 103/ulCritically high4.0-11.0The [facility] HospitalComment on above:Performed By: #### CBC #### [facility] [address] [place] [address] Dr. Lucretia Acuña URINEon 23-32-8663VNHQNEK URINECulture Observations: LIGHT GROWTH OF MIXED GENITAL SILVIA. NO POTENTIAL PATHOGENS SEEN.NormalThe [facility] HospitalComment on above:Performed By: #### PROGES #### [facility] [address] [place] [address] Dr. Lucretia ZamudioLIPASEon 53-94-7248Nnhtqi [Catalytic activity/Vol]85.0 U/LNormal 73.0-393.0The [facility] HospitalComment on above:Performed By: #### PROGES #### [facility] [address] [place] [address] Dr. Lucretia Shoemaker QUANT HCGon 03-35-3139SNC QUANT1 mIU/mLNormalThe [facility] HospitalComment on above:Performed By: #### PROGES #### [facility] [address] [place] [address] Dr. Lucretia Leyva RANGESEE BELOWNormalThe [facility] HospitalComment on above: Result Comment: 5-50 0.2-1 WEEK 50-500 1-2 WEEKS 100-5,000 2-3 WEEKS 500-10,000 3-4 WEEKS 1,000-50,000 4-5 WEEKS 10,000-100,000 5-6 WEEKS 15,000-200,000 6-8 WEEKS 10,000-100,000 2-3 MONTHSPerformed By: #### PROGES #### [facility] [address] [place] [address] Dr. Lucretia ZamudioPROF 14(COMP METB)on 02-46-0666Sshlldb [Mass/Vol]4.0 g/dLNormal 3.4-5.0The [facility] HospitalComment on above:Performed By: #### PROGES #### [facility] [address] [place] [address] Dr. Lucretia ZamudioAlbumin/Globulin [Mass ratio]1.1 {ratio}NormalThe [facility] HospitalComment on above:Performed By: #### PROGES #### [facility] [address] [place] [address] Dr. Lucretia ZamudioALP [Catalytic activity/Vol]98 U/RUxogdq94-710Cnd [facility] HospitalComment on above:Performed By: #### PROGES #### [facility] [address] [address] [address] Lucretia VarmaT [Catalytic activity/Vol]16 U/WHevlsw54-97Pxt [facility] HospitalComment on above:Performed By: #### PROGES #### [facility] [address] [address] [address] Lucretia ZamudioAnion gap [Moles/Vol]9.7 mmol/LNormalThe [facility] HospitalComment on above:Performed By: #### PROGES #### [facility] [address] [address] [address] Lucretia ZamudioAST [Catalytic activity/Vol]15 U/DDpgmek88-88Cow [facility] HospitalComment on above:Performed By: #### PROGES #### [facility] [address] [address] [address] Lucretia ZamudioBilirubin [Mass/Vol]0.2 mg/dLNormal0.2-1.0The [facility] Comment on above:Performed By: #### PROGES #### [facility] [address] [address] [address] Lucretia ZamudioCalcium [Mass/Vol]9.5 mg/dLNormal8.5-10.1The [facility] Comment on above:Performed By: #### PROGES #### [facility] [address] [address] [address] Lucretia ZamudioChloride [Moles/Vol]102 mmol/KRhxjnz75-223Cvy [facility] Comment on above:Performed By: #### PROGES #### [facility] [address] [address] [address] Lucretia ZamudioCO2 [Moles/Vol]31.5 mmol/UCfravm84.0-32.0The [facility] Comment on above:Performed By: #### PROGES #### [facility] [address] [address] [address] Lucretia ZamudioCreatinine [Mass/Vol]0.79 mg/dLNormal0.55-1.02The [facility] HospitalComment on above:Performed By: #### PROGES #### [facility] [address] [address] [address] Lucretia HuntGFR-AF GERMAN>60Normal>=60The [facility] HospitalComment on above:Performed By: #### PROGES #### [facility] [address] [address] [address] Lucretia HuntGFR-NON AF GERMAN>60Normal>=60The [facility] HospitalComment on above:Performed By: #### PROGES #### [facility] [address] [address] [address] Lucretia ZamudioGlobulin (S) [Mass/Vol]3.8 g/dLNormalThe [facility] HospitalComment on above:Performed By: #### PROGES #### [facility] [address] [place] [address] Dr. Lucretia ZamudioGlucose [Mass/Vol]95 mg/cPVmhcfq62-160UkmEast [place] Regional Hospital Comment on above:Performed By: #### PROGES #### [facility] [address] [place] [address] Dr. Lucretia ZamudioPotassium [Moles/Vol]4.2 mmol/LNormal3.5-5.1The [facility] Comment on above:Performed By: #### PROGES #### [facility] [address] [place] [address] Dr. Lucretia ZamudioProtein [Mass/Vol]7.8 g/dLNormal6.4-8.2[facility] [place] [facility] Comment on above:Performed By: #### PROGES #### [facility] [address] [place] [address] Dr. Lucretia ZamudioSodium [Moles/Vol]139 mmol/PCrmhuh739-390Tja [facility] Comment on above:Performed By: #### PROGES #### [facility] [address] [place] [address] Dr. Lucretia ZamudioUrea nitrogen [Mass/Vol]12.0 mg/dLNormal7.0-18.0The [facility] HospitalComment on above:Performed By: #### PROGES #### [facility] [address] [place] [address] Dr. Lucretia ZamudioUrea nitrogen/Creatinine [Mass ratio]15.2 mg/mgNoalThMcKitrick HospitalComment on above:Performed By: #### PROGES #### [facility] [address] [address] [address] Lucretia Pollack RANDOMon 75-27-7912Ewsjokcvk Ql (U)NegativeNormalNEGATIVEEast [place] Regional HospitalComment on above:Performed By: #### PROGES #### [facility] [address] [address] [address] Lucretia ZamudioClarity (U)CLEARNormalCLEAREast [place] Regional HospitalComment on above: Performed By: #### PROGES #### [facility] [address] [place] [address] Dr. Lucretia Cruz (U)LT. YELLOWNormalYELLOWEast [place] Regional HospitalComment on above:Performed By: #### PROGES #### [facility] [address] [place] [address] Dr. Lucretia ZamudioGlucose Ql (U)NegativeNormalNEGATIVEEast [place] Regional HospitalComment on above:Performed By: #### PROGES #### [facility] [address] [address] [address] Lucretia ZamudioHemoglobin Ql (U)NegativeNormalNEGATIVEOhiohealth Berger Hospital on above:Performed By: #### PROGES #### [facility] [address] [place] [address] Dr. Lucretia ZamudioKetones Ql (U)NegativeNormalNEGATIVEEast [place] Regional HospitalComment on above:Performed By: #### PROGES #### [facility] [address] [place] [address] Dr. Lucretia ZamudioLEUKOCYTESNegativeNormalNEGATIVEEast [place] Regional HospitalCommclaren port [facility]on hospital on above:Performed By: #### PROGES #### [facility] [address] [place] [address] Dr. Lucretia ZamudioNitrite Ql (U)NegativeNormalNEGATIVEEast [place] Regional HospitalComment on above:Performed By: #### PROGES #### [facility] [address] [address] [address] Lucretia ZamudiopH (U)7.0 [pH]Normal5-9The [facility] HospitalComment on above: Performed By: #### PROGES #### [facility] [address] [address] [address] Lucretia ZamudioSPEC GRAVITY1.183Hcxgma9.005-<=1.025The [facility] HospitalComment on above:Performed By: #### PROGES #### [facility] [address] [address] [address] Lucretia Pollack PROTEINNegativeNormalNEGATIVE/ TRACEThe [facility] Comment on above:Performed By: #### PROGES #### [facility] [address] [address] [address] Lucretia Davidbilinogen Qn (U)0.2 {Tommie'U}/dLNormal0.2 - 1.0The [facility] HospitalComment on above:Performed By: #### PROGES #### [facility] [address] [place] [address] Dr. Lucretia ZamudioPhysical Therapy Noteon 15-31-5501Gkmiiuyf Therapy Note [id number]#1.00[facility] Coding Summaryon 32-43-8493Bcgage SummaryHTMLBase 64 BbgifaanZBy2jGe+PGhlYWQ+XM1FAJEtH09ndVIpdM9PH9iCHN0SULLLCUXBBI7LHZ8zySJ2OKjoL4Vo biAv [file] PSd (more content not included)...[facility] HospitalProvider Orderson 97-56-5378Gwdjtfrv [id number]#1.00OTGTRiverside Methodist HospitalConsent Formson 93-43-8025Dwbfssc Forms [id number]#1.00[facility] Physical Therapy Noteon 91-48-0952Ygjklama Therapy Note [id number]#1.00[facility] Provider Orderson 51-26-5547Frkmmtbj Orders [id number]#1.00[facility] Coding Summaryon 23-51-7283Rsgozy SummaryMLBase 64 YoeqsvvuJDk9iXw+PGhlYWQ+QU0UJZPfW03lkMIhyS8IO4nHKF4OZFCZEGQMQY9ECA1peRK5IEwzY1Ra biAv [file] PSd (more content not included)...[facility] Reporton 15-66-1950Puk - MRI [id number]#1.00OTGTIFF [facility] Vital Signs Date TimeVital SignValuePerforming EidxamfekJtdggusg65-15-7218 13:19-0400Body mass index (BMI) [Ratio]34.36 kg/l4Ubgjr Angel DO Work Phone: [facility]Eoeumflwei82-12-2661 13:19-0400Body .51 kgCorey Angel DO Work Phone: [phone] MonettHiwjwkhkff83-43-3784 13:19-0400Diastolic blood eosmuwnj65 mm[Hg]Junito Angel DO Work Phone: [facility]ettVkqukggzib22-80-6327 13:19-0400Systolic blood uodqzeqf705 mm[Hg]Junito Angel DO Work Phone: [facility]ettNlrbpwesnb56-54-8937 14:29-0400Body mass index (BMI) [Ratio]33.15 kg/c8Dthts Angel DO Work Phone: [facility]ettIjujplyrnp16-63-6059 14:29-0400Body zuriyb37.88 kgCorey Angel DO Work Phone: [facility]ettKfviytrbsy29-63-9052 14:29-0400Diastolic blood nmfkapws69 mm[Hg]Junito Angel DO Work Phone: [facility]ettAkcujhsjzx77-14-8913 14:29-0400Systolic blood bzndwazq798 mm[Hg]Junito Angel DO Work Phone: [phone] [place], [place] [address]Zsuqvtiirn13-78-6836 10:06-0400Body mass index (BMI) [Ratio]31.75 kg/o0Ddznxubj Marita DOBIE MAN Work Phone: [phone] [place], [place] [address]Kmpghiphen05-82-8026 10:06-0400Body lxpdip00.71 kgKrcindy Marita DOBIE MAN Work Phone: [phone] [place], [place] [address]Ndsmkrvrgj94-14-3314 10:06-0400Diastolic blood pjlugdtj98 mm[Hg]Inna Marita DOBIE MAN Work Phone: 1(713)353-[address] [place], [place] [address]Nisgzfhfcw37-68-5954 10:06-0400Systolic blood cbwwvobh654 mm[Hg]Inna Deckererly DOBIE MAN Work Phone: [phone] [place], [place] [address]Rytsodoqtk86-54-9159 14:59-0400Body mass index (BMI) [Ratio]30.99 kg/k2Jrfyy Angel DO Work Phone: [phone] [place], [place] [address]Bfwbcnytyz81-02-2146 14:59-0400Body hwhuie75.44 kgCorey Angel DO Work Phone: 1(275)192-[address] [place], [place] [address]Yojudqhfxv27-69-0403 14:59-0400Diastolic blood drdurdtx55 mm[Hg]Junito Angel DO Work Phone: 1(394)530-[address] [place], [place] [address]Oleodqiqfv44-76-2550 14:59-0400Systolic blood rgryepub448 mm[Hg]Junito Angel DO Work Phone: 1([phone] [place], [place] [address]Iwhmlhnrxr97-07-1860 13:39-0400Body mass index (BMI) [Ratio]29.73 kg/e1Cxwyd Angel DO Work Phone: 1(961)[facility] [place], [place] [address]Evpulkbbqa66-06-0540 13:39-0400Body aoribc99.68 kgCorey Angel DO Work Phone: [phone])[facility] [place], [place] [address]Chstwgzhum25-02-7206 13:39-0400Diastolic blood mm[Hg]Junito Angel DO Work Phone: [facility]ettZpyqzygxlv16-31-4571 13:39-0400Systolic blood mm[Hg]Junito Angel DO Work Phone: [facility]ettUghuzquhtk29-95-2166 12:30-0400Body ujidzy956.45 cmAPRN Nelida Crocketterwhit Work Phone: 1(297)[address]07-02-2024 12:30-0400 Body mass index (BMI) [Ratio]31.6 kg/m2APRN Nelida Crocketterwhit Work Phone: [phone] [place], [place] 3730807-02-2024 12:30-0400 Body wcwyytnycsi10.8 [degF]YANELI Crocketterwhit Work Phone: [phone])[address] [place], [place] 3730807-02-2024 12:30-0400 Body .98 kgAPRN Nelida Crocketterwhit Work Phone: [phone])[address] [place], [place] 3730807-02-2024 12:30-0400 Diastolic blood efbthbqr15 mm[Hg]YANELI Crocketterwood Work Phone: 1(519)[address]07-02-2024 12:30-0400 Heart rate69 /minAPRAislinn Crocketterwood Work Phone: [phone])[address] [place], [place] 3730807-02-2024 12:30-0400 Respiratory rate20 /minAPRN Nelida Crocketterwhit Work Phone: [phone])[address]07-02-2024 12:30-0400 SaO2% (BldA) [Mass fraction]99 %ANALYTIC MANAGERAislinn Crocketterwood Work Phone: 1(274)[address]07-02-2024 12:30-0400 Systolic blood xuhpsglx514 mm[Hg]YANELI Crocketterwood Work Phone: 1(635)[address] [place], [place] 3730806-05-2024 08:58-0400 Body yhybmo580.45 [facility]Tr[facility]2024 08:58-0400Body mass index (BMI) [Ratio]31.6 kg/x7CojaaoqikTrinity Health [facility]06-05-2024 08:58-0400Body heydmi79.98 kgTr[facility]03-27-2024 11:00-0400Body mqznzo930.45 cmTr[facility]03-27-2024 11:00-0400Body mass index (BMI) [Ratio]31.6 kg/s6WrdiczsckTrinity Health System [facility]03-27-2024 11:00-0400Body xjhnygbapll50 [degF][facility]03-27-2024 11:00-0400Body thrbij51.98 kgTr[facility] 09-19-2023 11:00-0400Diastolic blood vthsjurr36 mm[Hg][facility]03-27-2024 11:00-0400Heart rate80 /[facility] 09-19-2023 11:00-0400Respiratory rate20 /[facility] 09-19-2023 11:00-5774NrU2% (BldA) [Mass fraction]98 %[facility]03-27-2024 11:00-0400Systolic blood zmlblodh840 mm[Hg][facility]03-13-2024 09:42-0400Body yxgxlc430.7 Serg DUONGC Work Phone: [facility]03-13-2024 09:42-0400Body mass index (BMI) [Ratio]30.79 kg/f4EbgxzxsTy CRISTINA-C Work Phone: [facility] Centeropendorse [facility] HospitalLzpuuv86-50-3049 09:42-0400Body uynmep46.85 kgTy CRISTINA-C Work Phone: [facility] Centeropendorse [facility] HospitalXthgwx25-88-5047 09:42-0400Diastolic blood xlnrzeyf55 mm[Hg]Ty DUONGC Work Phone: [facility] Centeropendorse [facility] HospitalMgyedy75-50-4358 09:42-0400Heart rate 73 /minTy CRISTINA-C Work Phone: [facility]03-13-2024 09:42-0400Systolic blood yvspyxrh299 mm[Hg]Ty Stratton PA-C Work Phone: [facility]Network12-13-2023 17:00-0500Body ucvqae894.45 cmDana [facility] Other [employer] Other 12-06-2023 08:00-0500Body wumezu740.45 cmDana [facility] Other [employer] Other 12-06-2023 08:00-0500Body mass index (BMI) [Ratio] 33.48 kg/m2Dana [facility] Other [employer] Other 12-06-2023 08:00-0500Body ucqcnvwhznm05.2 [degF]Nelida [facility] Other [employer] Other 12-06-2023 08:00-0500Body .43 kgDana [facility] Other [employer] Other 12-06-2023 08:00-0500Diastolic blood wypkcqyk62 mm[Hg] Nelida Easterwood Other [employer] Other 12-06-2023 08:00-0500Respiratory rate20 /minDana [facility] Other [employer] Other 12-06-2023 08:00-4353EhL8% (BldA) [Mass fraction]99 % Nelida [facility]erwood Other [employer] Other 12-06-2023 08:00-0500Systolic blood lgsuuysq375 mm[Hg] Nelida Easterwood Other [employer] Other 09-11-2023 10:30-0400Body zsqonb408.45 cmDana Easterwood Other [employer] Other 09-11-2023 10:30-0400Body mass index (BMI) [Ratio] 33.33 kg/m2Dana Easterwood Other [employer] Other 09-11-2023 10:30-0400Body jqaeiuhnotc40 [degF]Nelida Easterwood Other [employer] Other 09-11-2023 10:30-0400Body gluluy04.98 kgDana Bonwhit Other [employer] Other 09-11-2023 10:30-0400Diastolic blood zyymbyrg86 mm[Hg] Nelida Easterwood Other [employer] Other 09-11-2023 10:30-0400Respiratory rate20 /minDana Easterwood Other [employer] Other 09-11-2023 10:30-1297VjQ6% (BldA) [Mass fraction]99 % Nelida Easterwood Other [employer] Other 09-11-2023 10:30-0400Systolic blood dyjwobjg594 mm[Hg] Nelida Easterwood Other [employer] Other 08-30-2023 11:00-0400Body rocptv223.45 cmDana [place] Other [employer] Other 08-30-2023 11:00-0400Body mass index (BMI) [Ratio] 33.48 kg/m2Dana [facility] Other [employer] Other 08-30-2023 11:00-0400Body qeersmgetwt76.9 [degF][facility] Other [employer] Other 08-30-2023 11:00-0400Body kgnibs61.43 kgDana [facility] Other [employer] Other 08-30-2023 11:00-0400Diastolic blood llwazfte04 mm[Hg] [facility]ida [facility] Other [employer] Other 08-30-2023 11:00-0400Respiratory rate20 /minDana [facility] Other [employer] Other 08-30-2023 11:00-6530FiQ2% (BldA) [Mass fraction]98 % [facility] Other [employer] Other 08-30-2023 11:00-0400Systolic blood mm[Hg] [facility]ida [facility] Other [employer] Other Encounters Encounter DateEncounter TypeCare ProviderFacilityStart: 04-15-2025 End: 51-69-9117Atxrfk flowsheetCorey Angel DO Work Phone: [facility] [facility]BGYNStart: 04-15-2025 End: 77-66-5817Njazjw flowsheetCorey Angel DO Work Phone: [facility] [place] [facility]BGYNStart: 04-15-2025 End: 67-46-3632Wcvpjkec flow sheetCorey Angel DO Work Phone: NOOX [place] OBGYNComment on above:Third trimester ([facility]); 28 weeks gestation of ([facility]); size inconsistent with dates ([facility]); Racing heart beatStart: 04-15-2025 End: 52-87-5484uckirzxnzbLAEZR FAZIONot AvailableStart: 46-84-4160pebdvcmivw Inna EbivanlyFacility:[facility]ulltart: 04-01-2025 End: 94-34-4225Ydvplukln Result EncounterInna Kirkland NP Work Phone: noms External Department UnsolicitedStart: 04-01-2025 End: 16-36-8666Bkkwsrmvc Result EncounterInna Kirkland NP Work Phone: noms External Department UnsolicitedStart: 03-18-2025 End: 36-96-2046Schttech flow sheetCorey Angel DO Work Phone: NOTS [facility] OBGYNComment on above:Second trimester ([facility]); 24 weeks gestation of ([facility]); Diabetes mellitus screeningStart: 03-18-2025 End: 36-93-9908nrhiwkblmkBIURQ FAZIONot AvailableStart: 02-18-2025 End: 44-22-9537Jpywomhe flow sheetInna Kirkland DOBIE MAN Work Phone: [facility] [place] OBGYNComment on above:Nausea and vomiting in ([facility]) (Primary Dx); Second trimester ([facility]); 20 weeks gestation of ([facility]); Elevated heart rate with elevated blood pressure without diagnosis of hypertensionStart: 02-18-2025 End: 16-40-6109qgwlktdcblUSGJZVZX EBERLYNot AvailableStart: 02-18-2025 End: 72-26-4366ldheejdjoaLCUQU FAZIONot AvailableStart: 01-14-2025 End: 99-55-9852Ortmpwf encounter procedureCorey Angel DO Work Phone: NOVU HealthcareStart: 01-14-2025 End: 60-87-1985Yzpafyhi preventive med est patient 18-39 yrsCorey Angel DO Work Phone: [facility] OBComment on above:15 weeks gestation of ([facility]); Second trimester ([facility]); Gastroesophageal reflux disease with esophagitis, unspecified whether hemorrhage; Screening, , for anatomic survey ([facility]); Exposure to STD; Vaginal discharge; Well woman exam with routine gynecological exam; Nausea and vomiting in ([facility]); related fatigue in second trimester ([facility]); Insomnia, unspecified type; Other migraine with status migrainosus, not intractableStart: 01-14-2025 End: 60-46-9796ucozhwxcvdPIJPR FAZIONot AvailableStart: 01-14-2025 End: 38-01-3569Rpafty flowsheetCorey Angel DO Work Phone: [facility] OBStart: 01-14-2025 End: 71-59-1305Edszoi flowsheetCorey Angel DO Work Phone: [facility] OBStart: 01-14-2025 End: 42-58-6498Drshbxltn Result EncounterCorey Angel DO Work Phone: noms External Department UnsolicitedStart: 01-14-2025 End: 30-92-1993Loafybpl Result EncounterCorey Angel DO Work Phone: NOCR External Department UnsolicitedStart: 12-17-2024 End: 68-05-3260Tjlawi flowsheetCorey Angel DO Work Phone: n[facility] OBStart: 12-17-2024 End: 38-50-5709Ulttoy flowsheetCorey Angel DO Work Phone: noms [facility] OBStart: 12-17-2024 End: 40-74-4620Fqskapoy flow sheetCorey Angel DO Work Phone: noms BCP OBComment on above:11 weeks gestation of ([facility]); First trimester ([facility]); Nausea and vomiting in ([facility]); Gastroesophageal reflux disease with esophagitis, unspecified whether hemorrhage; Meconium aspiration in child of prior , currently , unspecified trimester ([facility])Start: 12-17-2024 End: 55-99-1090nqdxgshxtsKPOKH FAZIONot AvailableStart: 12-10-2024 End: 78-62-7823Cfzrdonwk Result EncounterCorey Angel DO Work Phone: noms External Department UnsolicitedStart: 12-10-2024 End: 61-35-9274Qqjwzwric Result EncounterCorey Angel DO Work Phone: noms External Department UnsolicitedStart: 12-05-2024 End: 02-20-4040Odtkyf outpatient visit 5 minutesNoms Bcp Ob Angel NurseNOMS BCP OBComment on above:GA: 0r5eSqknj: 12-05-2024 End: 91-19-1496onfidbxwdyPLJAS FAZIONot AvailableStart: 07-03-2024 End: 39-25-9606FdzwfeXlhodnnYamilex Stratton PA-C Work Phone: [facility] NeurologyComment on above: Migraine without aura and without status migrainosus, not intractableStart: 12-25-2023 End: 41-54-8686udtmkplzinXCWR Dana J Easterwood Work Phone: [facility] Work Phone: Start: 12-25-2023 End: 69-07-3650Idozhoi encounter procedureAPRAislinn Ding Work Phone: [facility] Work Phone: Start: 73-19-3595Gnk-patient / Non-visitYANELI Ding Work Phone: [facility] Work Phone: Start: 12-05-2023 End: 15-17-8583ybcozqhbamEEED Nelida Farias [facility] Work Phone: [facility] Work Phone: Start: 12-05-2023 End: 21-66-4696Ypuiziug ReferredAPRAislinn Mendoza [facility] Work Phone: [facility]-LAB Path Spec [facility] HospStart: 11-28-2023 End: 49-32-0595xvdzbyepvwTnmfklrhh [facility] Work Phone: Start: 11-28-2023 End: 63-55-3586Lwvzape encounter procedureNovant Health [facility] Centertonia [facility] Gastro[facility]ology Work Phone: Start: 09-19-2023 End: 94-49-2120wnzwmbsietVnhsrgbcxSelect Medical [facility] Work Phone: Start: 09-19-2023 End: 37-59-9379Fmjphyo encounter procedureNovant Health Franklin Medical Centertonia [facility] Family [facility] Work Phone: Start: 09-05-2023 End: 99-53-4597hbgntcliqjSZRGIVF C HAMILTONRegency Hospital Toledotart: 09-05-2023 End: 95-12-1756Euixon outpatient visit 25 minutesAnthaleksey Stratton PA-Kiko Work Phone: [facility] Physicians NeurologyComment on above: Migraine without aura and without status migrainosus, not intractable (Primary Dx); Vestibular migraine; Pineal gland cyst; Hx of concussion; Daytime somnolenceStart: 17-01-5176Gcr-patient / Non-visitNovant Health Franklin Medical Centertonia [facility]ician [facility] [employer] Work Phone: Start: 07-16-2023 End: 95-50-5382hvbhhizekvDnml [place] Other [place] [employer] Other Start: 57-64-7440Dvckiglvo encounterDana [facility] on above:WEENING OFF QULIPTAStart: 07-09-2023 Patient encounter procedureFirsentara princess anne hospital [facility]-Start: 06-06-2023 End: 60-88-9031rafsmzuprkFeyr Easterrichfield Other [employer] Other Start: 71-80-7545KY ONLINE E/M PHY VIRTUL 05-14Dana [facility] Hospitaltart: 18-59-5929Jwesjzzpa encounterDana [facility]Ess[facility] Hospitaltart: 05-30-2023 End: 83-12-8169rycyplqumwAkbu [facility] Other [employer] Other Start: 91-49-2752Hlimwn outpatient visit 25 minutes Nelida [facility] Hospitaltart: 05-25-2023 End: 98-41-5499xiqsfoldyjDikv Easterrichfield Other [employer] Other Start: 28-54-6311Qjsrwkxlx encounterDana [facility] Hospitaltart: 05-03-2023 End: 76-02-4701zzdfdvgejeYfay Easterwood Other [employer] Other Start: 08-14-5412Hqqzzyoyq encounterDana [facility] Hospitaltart: 03-05-2023 End: 37-30-0482ktbcgtsjakFwrw [place] Other [employer] Other Start: 84-01-1442Nngjfu outpatient visit 25 minutes Nelida [facility] Hospitaltart: 02-21-2023 End: 08-36-4693izttxmqmkdFqpo Easterwood Other [employer] Other Start: 74-59-2584Qfcixk outpatient visit 40 minutes Nelida [facility] UnitkStart: 51-55-4105Pokccyrwn encounter Nelida [facility] UnitkStart: 11-01-2022 End: 83-49-9809jbxqqawomnEO JUNITO ANGEL .Facility:L2Gpcle: 09-06-2022 End: 87-56-5145fqcwldgcntWR JUNITO ANGEL .Facility:B3Zzwfl: 08-26-2022 End: 20-42-9709sffoknoasnDJ JUNITO ANGEL .Facility:B6Cpawe: 08-02-2022 End: 75-55-7383lhifihisvsMX JUNITO ANGEL .Facility:U3Dgwpn: 07-12-2022 End: 90-78-5975pmleokcmtdEZ GIA Yocility:H1 Procedures DateProcedureProcedure DetailPerforming ClinicianStart: 48-22-6182Exuxi dip stick/tablet rgnt non-auto w/o micrscpCorey Angel DO Work Phone: Start: 79-08-8482ZLNWAXC 1 HOURKristina Marita DOBIE MAN Work Phone: Start: 01-43-1059Hertn dip stick/tablet rgnt non-auto w/o micrscpKristina Marita DOBIE MAN Work Phone: Start: 57-93-1930Vjcuu dip stick/tablet rgnt non-auto w/o micrscpKristina Marita DOBIE MAN Work Phone: Start: 34-15-7724ZVJEBKUDW VAGINITIS (HTRX)Junito Angel DO Work Phone: Start: 44-40-1913Khbxb dip stick/tablet rgnt non-auto w/o micrscpCorey Angel DO Work Phone: Start: 30-49-3205RZU,APTIMA HPV,AGE GDLNCorey Angel DO Work Phone: Start: 72-33-3807Opzok dip stick/tablet rgnt non-auto w/o micrscpCorey Angel DO Work Phone: Start: 24-52-5316MJF CBC WITH AUTO DIFFCorey Angel DO Work Phone: Start: 12-05-2024 End: 81-87-4685Steid dip stick/tablet rgnt non-auto w/o micrscpCorey Angel DO Work Phone: Start: 62-99-7731Ouoyte-up visitFollow-JermanMARA Hoover HAMILTONStart: 54-10-0051Yaail depression screening assessmentParkview Health Montpelier Hospitalsami Jamison Plan of Treatment DateCare ActivityDetailAuthorStart: 04-29-2025 End: 39-01-6225Krnbgzo encounter rzbnztzfi93/05/2025 1:30 PM EST Routine [facility] [address] [place], [id number] Junito Ortiz, DO [address] [place] [address] [facility] OBGYNStart: 04-29-2025 End: 04-50-9853Nfiufblrwiqi / ancillary services fzywlmwcxw45/05/2025 1:00 PM EST Ancillary Procedure [facility] [address] [place] [address] [facility] OBGYNStart: 04-15-2025 End: 60-13-8826Jrvfzxkgxpxldn 2D completeEchocardiogram 2D complete Echocardiography Routine Racing heart beat Expected: 04/15/2025 (Approximate), Expires: 04/15/2027[facility] Work Phone: comment on above:Expected: 04/15/2025 (Approximate), Expires: 04/15/2027Start: 04-15-2025 End: 00-30-0961XP for pregnancyUS OB follow up transabdominal approach Imaging Routine size inconsistent with dates ([facility]) Expected: 04/15/2025, Expires: 08/16/2025[facility] HealthcareComment on above:Expected: 04/15/2025, Expires: 08/16/2025Start: 04-15-2025 End: 77-17-7738Gfhefwn encounter procedureNATALIE [place] OBGYNComment on above: ArrivedStart: 03-18-2025 End: 40-17-2247Giwokfy encounter cuagfptjs41/24/2025 2:20 PM EDT Routine [facility] [address] [place], [id number] Junito Ortiz DO [address] [place] [address] [facility] [place] [facility]BGYNStart: 03-18-2025 End: 13-31-7789GXW panel - Blood by Automated countCBC Lab Routine Diabetes mellitus screening Expected: 03/18/2025 (Approximate), Expires: 03/18/2026[facility] Work Phone: comment on above:Expected: 03/18/2025 (Approximate), Expires: 03/18/2026Start: 03-18-2025 End: 81-22-2844Faznlzcofip of glucose 1 hour after glucose challenge for glucose tolerance testGlucose tolerance, 1 hour Lab Routine Diabetes mellitus screening Expected: 03/18/2025 (Approximate), Expires: 03/18/2026[facility] HealthcareComment on above:Expected: 03/18/2025 (Approximate), Expires: 03/18/2026Start: 89-20-0396Lmvhrcjuu vaccinationCACHE VALLEY HOSPITAL HealthcareStart: 02-18-2025 End: lead ECGECG 12 lead unit performed ECG Routine Elevated heart rate with elevated blood pressure without diagnosis of hypertension Expected: 02/18/2025 (Approximate), Expires: 02/18/2026[facility] Work Phone: comment on above:Expected: 02/18/2025 (Approximate), Expires: 02/18/2026Start: 02-18-2025 End: 19-59-5807Oguyvji encounter procedureNOMS BCP OBStart: 02-18-2025 End: 17-38-7790Knkfxahxluhh / ancillary services managementNOMS BCP OBStart: 01-14-2025 End: 41-75-1656Bjgfdhw encounter /23/2025 2:40 PM EDT Routine [facility] [address] [place] [id number] Junito Ortiz, DO [address] [place] [address] NOMS BCP OBStart: 01-14-2025 End: 73-87-0569Hlbmd fetoprotein, maternalAlpha fetoprotein, maternal Lab Routine Second trimester ([facility]) Expected: 01/14/2025 (Approximate), Expires: 03/17/2025[facility] HealthcareComment on above:Expected: 01/14/2025 (Approximate), Expires: 03/17/2025Start: 01-14-2025 End: 12-05-9359WU for pregnancyUS OB 14+ weeks anatomy scan Imaging Routine Screening, , for anatomic survey ([facility]) Expected: 01/14/2025, Expires: 04/16/2025[facility] HealthcareComment on above:Expected: 01/14/2025, Expires: 04/16/2025Start: 12-17-2024 End: 34-37-7398Gbbfsat encounter procedureNOLOS [facility] OBComment on above:Arrived Start: 12-05-2024 End: 82-50-1032MQU/RhABO/Rh Lab Routine Missed menses , unspecified gestational age ([facility]) Expected: 12/05/2024 (Approximate), Expires: 12/05/2025[facility] HealthcareComment on above:Expected: 12/05/2024 (Approximate), Expires: 12/05/2025Start: 12-05-2024 End: 97-60-2621Admlf type and Indirect antibody screen panel - BloodType and screen Lab Routine Missed menses , unspecified gestational age ([facility]) Expected: 12/05/2024 (Approximate), Expires: 12/05/2025[facility] Work Phone: comment on above:Expected: 12/05/2024 (Approximate), Expires: 12/05/2025Start: 12-05-2024 End: 10-97-7379Gfkjo of abuse panel - Urine by Screen methodRapid drug screen, urine Lab Routine , unspecified gestational age ([facility]) Encounter for supervision of normal first in first trimester ([facility]) Expected: 12/05/2024 (Approximate), Expires: 12/05/2025[facility] HealthcareComment on above: Expected: 12/05/2024 (Approximate), Expires: 12/05/2025Start: 12-05-2024 End: 10-08-3115Ulevwudcvnq [Mass/volume] in Serum or PlasmaTransferrin Lab Routine Dizzy Lightheaded Expected: 12/05/2024 (Approximate), Expires: 12/05/2025[facility] HealthcareComment on above:Expected: 12/05/2024 (Approximate), Expires: 12/05/2025Start: 51-87-6339Yddxv BMI ScreeningAdult BMI Screening [facility]: 95-97-5861Llideqi ScreeningTobacco Screening [facility]: 62-93-4171Irtny BMI ScreeningAdult BMI Screening [facility]: 23-49-8108Xbaiayoagd ScreeningDepression Screening [facility] SystemStart: 32-18-2416Dnpxcid ScreeningTobacco Screening [facility] SystemStart: 43-48-7189Oyykdfoez vaccinationInfluenza Vaccine [facility] SystemStart: 12-12-2023 End: 62-37-1996Iogepic encounter /19/2024 9:00 AM EDT Office Visit [facility] [place] [address] [facility] [place] [address] Ty Stratton, PAAzucenaC [address] [facility] [place] [address] [facility] Neurology Start: 12-06-2023 End: 65-47-6187VO Brain WO contrastMR brain without contrast Imaging Routine Migraine without aura and without status migrainosus, notintractable Vestibular migraine Pineal gland cyst Expected: 12/06/2023 (Approximate), Expires: 09/04[facility] Work Phone: Comment on above:Expected: 12/06/2023 (Approximate), Expires: 09/04/2024Start: 10-31-2023 End: 59-82-3336Txtbtpu encounter /08/2024 8:45 AM EDT Office Visit [facility] Endocrin[facility] [id number] [place] [phone] Jani Mir MD [address] [place] [address] [facility] Adult EndocrinologyStart: 10-24-2023 End: 11-30-8590Riqchqj encounter bgjleevnj24/01/2024 10:00 AM EDT Office Visit [facility] Pulmonary/Sleep Medicine [address] [phone] Megan Lopez, ANALYTIC MANAGER-OFFICE MACHINES TEACHER [address] [address] [facility] Pulmonary/Sleep MedicineStart: 09-05-2023 End: 98-06-5090Schtgho encounter sbpdbnars00/13/2024 9:30 AM EDT Office Visit [facility] Neurology [address] [place] [phone] Ty Stratton PA-C [address], [address] [place] [phone] [facility] Start: 08-01-2023 End: 08-60-6136Mefeywv encounter agozhmtgl23/07/2024 10:30 AM EST Office Visit [facility] [address] [place] [phone] Jani Mir MD [address] [place] [address] [facility] Adult EndocrinologyStart: 48-31-4815Oplelpljt vaccinationInfluenza Vaccine [facility]: 97-58-8598Zxkjjmfmy for malignant neoplasm of cervixPap SmearFormerly [facility]: 96-77-5544WVsF,Tdap and Td Vaccines (1 - Tdap)DTaP,Tdap and Td Vaccines (1 - Tdap)[facility]: 34-23-5053Ratir BMI Follow Up PlanAdult BMI Follow Up PlanKnox Community HospitalBacteria identified in Urine by CultureUrine culture Microbiology Routine Missed menses Ordered: 12/05/2024[facility] HealthcareComment on above:Ordered: 12/05/2024BC W Auto Differential panel - BloodCBC and differential Lab Routine Missed menses , unspecified gestational age ([facility]) Ordered: 12/05/2024[facility] HealthcareComment on above:Ordered: 12/05/2024HLAMYDIA TRACHOMATIS (GENITO/STI)CHLAMYDIA TRACHOMATIS (GENITO/STI) Lab Routine Exposure to STD Ordered: 01/14/2025[facility] HealthcareComment on above:Ordered: 01/14/2025 Cytology Cervical or vaginal smear or scraping studyPap Smear Pathology and Cytology Routine Well woman exam with routine gynecological exam Ordered: [facility] HealthcareComment on above:Ordered: 01/14/2025Ferritin [Mass/volume] in Serum or PlasmaFerritin Lab Routine Dizzy Lightheaded Ordered: 12/05/2024[facility] HealthcareComment on above:Ordered: 12/05/2024Hemoglobin A1c/Hemoglobin.total in BloodHemoglobin A1c Lab Routine Missed menses , unspecified gestational age ([facility]) Ordered: 12/05/2024[facility] HealthcareComment on above:Ordered: 12/05/2024Hepatitis B virus surface Ag [Presence] in Serum or Plasma by ImmunoassayHepatitis B surface antigen Lab Routine Missed menses , unspecified gestational age ([facility]) Ordered: 12/05/2024[facility] HealthcareComment on above:Ordered: 12/05/2024Hepatitis C virus Ab [Presence] in Serum or Plasma by ImmunoassayHepatitis C antibody Lab Routine Missed menses , unspecified gestational age ([facility]) Ordered: 12/05/2024[facility] HealthcareComment on above:Ordered: 12/05/2024HIV-1/HIV-2 antigen/antibody combination immunoassayHIV-1 and HIV-2 antibodies Lab Routine Missed menses , unspecified gestational age ([facility]) Ordered: 12/05/2024[facility] HealthcareComment on above:Ordered: 12/05/2024Neisseria gonorrhoeae DNA [Presence] in Unspecified specimen by HANNAH with probe detectionNeisseria gonorrhea DNA probe, direct Lab Routine Exposure to STD Ordered: 01/14/2025[facility] HealthcareComment on above:Ordered: 01/14/2025Reagin Ab [Presence] in Serum by RPRRPR Lab Routine Missed menses , unspecified gestational age ([facility]) Ordered: 12/05/2024[facility] HealthcareComment on above:Ordered: 12/05/2024 Rubella antibody, IgGRubella antibody, IgG Lab Routine Missed menses , unspecified gestational age ([facility]) Ordered: 12/05/2024[facility] HealthcareComment on above:Ordered: 12/05/2024SURESWAB(R) ADVANCED VAGINITIS PLUS, TMASURESWAB(R) ADVANCED VAGINITIS PLUS, TMA Pathology and Cytology Routine Vaginal discharge Ordered: 01/14/2025[facility] Healthcare Work Phone: comment on above:Ordered: 01/14/2025 Immunizations Immunization DateImmunizationNotesCare KfjihefqFwcgosji44-95-4160zylxeqv and diphtheria toxoids, adsorbed, preservative free, for adult use (5 Lf of tetanus toxoid and 2 Lf of diphtheria toxoid)[facility]08-13-2020 tetanus toxoid, reduced diphtheria toxoid, and acellular pertussis vaccine, adsorbedDaTrenton Psychiatric Hospital Other [place] [employer] Other Payers DatePayer CategoryPayerPolicy [id number] Health [id number] Care Other (unspecified)[facility] 1..[id number]5Gpvuqrl Health Insurance [id number] Health Insurance [id number] 2..1.716641.3.57[id number] 2..1.866398.3.57[id number] 2..1.624828.3.57[id number] 2..1.231922.3.57[id number] 2..1.110701.3.57[id number] 2..1.494773.3.57[id number] 2..1.628769.3.57[id number] 2.16.840.1.272529.3.57[id number] 2.16.840.1.725993.3.57[id number] 2.16.840.1.447539.3.57[id number] 2.16.840.1.068803.3.57[id number] 2.16.840.1.993155.3.57[id number] 2.16.840.1.983075.3.57[id number] 2..840.1.669317.3.57[id number] 2.16.840.1.263110.3.579.2.281272-75-9578[facility] [id number] Private Health InsuranceMercy Health Perrysburg [id number] 2.0.1.618652.3.579.2.531 Social History DateTypeDetailFacilityStart: 12-19-2019 End: 49-70-9163Yxr Assigned At [facility] [employer] Other Start: 09-03-2023 End: 09-48-7355Akpazik smoking status NHISNever smoked tobacco (finding) [facility]: 36-48-7714Sjc Assigned At [facility] Campustart: 03-21-2023 End: 04-75-1920Dsznnpw use and exposureSmokeless tobacco non-userProMedica Health SystemStart: 09-05-2023 End: 68-84-7261Uoobuwrhd beverage intakeCurrent drinker of alcohol (finding) [facility]: 12-19-2019 End: 59-33-3401Kfurrwb of Social functionKnox Community HospitalHow often to you have a drink containing alcohol?NeverFormerly [facility]: 09-06-2022 Average Number of DrinksNot on [facility] Hospitaltart: 03-21-2023 Alcohol CommentsocialFormerly [facility]: 43-09-3318Aob assigned at birthNot on [facility] Hospitaltart: 89-57-6168AykQyhefq (finding) [facility]: 44-56-5413Lksysps CommentOne drink per monthCox MonettStart: 14-70-5782RtadjmhkkFGQH Healthcare Clinical Notes 02-04-2020 to 04-15-2025 Note Date & FwdcRtyvVfxuetkm71-97-8744 History of Present illness Narrative* Saumya Simmons, LYNN - 04/15/2025 1:00 PM EDT Reason for [...] Problems Diagnosis Date Noted Positive urine test ([facility]) 12/03/2024 Resolved Ambulatory Problems Diagnosis Date Noted [...] nursing note reviewed. Exam conducted with a patient care nursing assistant present. Vitals: Estimated body mass index is 33.15 kg/m as calculated from the following: Height as of 01/23/24: 5' 8 . Weight as of 03/18/25: 218 lb. BP: Patient's last menstrual period was 09/28/2024. Assessment/Plan ICD-10-CM 1. Third trimester ([facility]) Z34.93 2. 28 weeks gestation of ([facility]) Z3A.28 POCT urinalysis dipstick manually resulted Return [...] of: Junito Ortiz DO documented in this encounterCox MonettLaqzhxtomh71-43-1015 History of Present illness Narrative* Ariadna Bowden MA - 03/18/2025 2:20 PM EDT Reason for Appointment: Patient ID: [...] Problems Diagnosis Date Noted Positive urine test ([facility]) 12/03/2024 Resolved Ambulatory Problems Diagnosis Date Noted [...] nursing note reviewed. Exam conducted with a patient care nursing assistant present. Vitals: Estimated body mass index is 33.15 kg/m as calculated from the following: Height as of 01/23/24: 5' 8 . Weight as of this encounter: 218 lb. BP: 122/70 Patient's last menstrual period was 09/28/2024. ASSESSMENT & PLAN ICD-10-CM 1. Second trimester ([facility]) Z34.92 POCT urinalysis dipstick manually resulted 2. 24 weeks gestation of ([facility]) Z3A.24 3. Diabetes mellitus screening Z13.1 CBC [...] also tried zofran and phenergan but nausea haspersisted. She continues to gain weight, is eating [...] of: Junito Ortiz DO documented in this encounterCox MonettZzlkqlxlxw83-42-4055 History of Present illness Narrative* Inna Kirkland NP - 02/18/2025 10:00 AM EDT Reason for Appointment: Patient ID: Kat [...] Problems Diagnosis Date Noted Positive urine test ([facility]) 12/03/2024 Resolved Ambulatory Problems Diagnosis Date Noted [...] nursing note reviewed. Exam conducted with a patient care nursing assistant present. Vitals: Estimated body mass index is 31.75 kg/m as calculated from the following: Height as of 01/23/24: 5' 8 . Weight as of this encounter: 208 lb 12.8 oz. BP: 116/70 Patient's last menstrual period was 09/28/2024. ASSESSMENT & PLAN ICD-10-CM 1. Nausea and vomiting in ([facility]) O21.9 promethazine (Phenergan) 12.5 MG tablet 2. Second trimester ([facility]) Z34.92 POCT urinalysis dipstick manually resulted 3. 20 weeks gestation of ([facility]) Z3A.20 POCT urinalysis dipstick manually resulted 4. [...] if this improves her symptoms and she isadvised not to take the phenergan and zofran [...] or shortness of breath. An EKG has beenordered should symptoms continue. She also has complaints of SI joint pain and discomfort down the left leg. She did have sciatica with her last and PT helped with this in the past. We willrefer her to PT as well. Documented by Inna Kirkland NP on behalf of: Inna Kirkland NP documented in this encounterCox MonettHnokknxpka28-85-6517 History of Present illness Narrative* Saumya Simmons, CORPORATE LEGAL MANAGER - 01/14/2025 2:40 PM EDT Reason for Appointment: Patient ID: [...] Problems Diagnosis Date Noted Positive urine test ([facility]) 12/03/2024 Resolved Ambulatory Problems Diagnosis Date Noted [...] nursing note reviewed. Exam conducted with a patient care nursing assistant present. Vitals: Estimated body mass index is 30.99 kg/m as calculated from the following: Height as of 01/23/24: 5' 8 . Weight as of this encounter: 203 lb 12.8 oz. BP: 110/70 Patient's last menstrual period was 09/28/2024. ASSESSMENT & PLAN ICD-10-CM 1. 15 weeks gestation of ([facility]) Z3A.15 POCT urinalysis dipstick manually resulted 2. Second trimester ([facility]) Z34.92 POCT urinalysis dipstick manually resulted Alpha fetoprotein, maternal Alpha fetoprotein, maternal 3. Gastroesophageal reflux disease with esophagitis, unspecified whether hemorrhage K21.00 4. Screening, , for anatomic survey ([facility]) Z36.89 US OB 14+ weeks anatomy scan US OB 14+ weeks anatomy scan 5. Exposure to STD Z20.2 CHLAMYDIA TRACHOMATIS (GENITO/STI) Neisseria gonorrhea DNA probe, direct 6. Vaginal discharge N89.8 SURESWAB(R) ADVANCED VAGINITIS PLUS, TMA 7. Well woman exam with routine gynecological exam Z01.419 Pap Smear Return OB/Annual Exam: Patient presents today for a annual exam/routine obstetrics appointment. Patient is currently 52m8elfnfywmc. Patient states she is doing well but [...] of: Junito Ortiz DO documented in this encounterCox MonettHrdemsiimt34-22-1792 History of Present illness Narrative* Saumya Simmons LPN - 12/17/2024 1:00 PM EDT Reason for Appointment: Patient [...] Problems Diagnosis Date Noted Positive urine test ([facility]) 12/03/2024 Resolved Ambulatory Problems Diagnosis Date Noted [...] nursing note reviewed. Exam conducted with a patient care nursing assistant present. Vitals: Estimated body mass index is 29.73 kg/m as calculated from the following: Height as of 01/23/24: 5' 8 . Weight as of this encounter: 195 lb 8 oz. BP: 110/62 Patient's last menstrual period was 09/28/2024. ASSESSMENT & PLAN ICD-10-CM 1. 11 weeks gestation of ([facility]) Z3A.11 POCT urinalysis dipstick manually resulted 2. First trimester ([facility]) Z34.91 3. Nausea and vomiting in ([facility]) O21.9 4. Gastroesophageal reflux disease with esophagitis, unspecified whether hemorrhage K21.00 pantoprazole (Protonix) 40 MG EC tablet 5. Meconium aspiration in child of prior , currently , unspecified trimester ([facility]) O09.299 New OB: Patient presents today for [...] or undercooked meat, and stay away from [facility]. Patient has been consulted regarding any further do's and don'ts of . Patient voiced understanding and all questions and concerns were answered. Orders Placed This Encounter Procedures POCT urinalysis dipstick manually resulted Follow Up: Patient is to return in 4 weeks for routine OB appointment. Documented by Saumya Simmons LPN on behalf of: Junito Ortiz DO documented in this encounterCox MonettYdryxedjhk81-11-9151 History of Present illness Narrative* Carissa Castro LPN - 12/05/2024 10:00 AM EDT Reason for Appointment: Patient ID: Kat [...] Problems Diagnosis Date Noted Positive urine test ([facility]) 12/03/2024 Resolved Ambulatory Problems Diagnosis Date Noted [...] dipstick manually resulted , unspecified gestational age ([facility]) - Type and screen; Future - ABO/Rh; Future - CBC and differential - Hemoglobin A1c - RPR - Rubella antibody, IgG - Hepatitis B surface antigen - Hepatitis C antibody - HIV-1 and HIV-2 antibodies - Rapid drug screen, urine; Future Encounter for supervision of normal first in first trimester ([facility]) - Rapid drug screen, urine; Future Dizzy [...] drink 6-8 glasses of water a day, eatno raw or undercooked meat, and stay away from [facility]. Patient has also been advised to not change litter boxes and eat 6 small meals a day. Patient has been consulted regarding the do's and don'ts ofpregnancy. Patient was given labs and all questions [...] by: Carissa Castro LPN documented in this encounterCox MonettWfyhpbzeyc12-97-3578 Evaluation note* Author Jake Fitzgerald [facility] Medical CenterAuthoredFormerly [facility] 2023 9:29amPatient positive for intermittent nausea occurring once or twice monthly patient does note slight appetite changes however this is minimal patient did report periods of weight loss however patient has maintained her weight for many months at this point. Patient is negative for hematemesis, abdominal pain and family history of esophageal and gastric cancer. [facility] Work Phone: 1([phone]) 512-429203-13-2024 History of Present illness Narrative* Ty Stratton PA-C - 09/05/2023 9:30 AM EDT [facility] Office Note 09/05/2023 8:59 AM Patient info: Kat Bob is a 27 y.o. female Account No.: [id number] Acct: : 1995 PCP: IVON Wadsworth Chief [...] small cyst. CT Head recently completed at [facility] (February,) - reportedly was normal but [...] concussion at age 6 (-) hx of HAMMER DRIVER infection: (-) hx of stroke/cerebrovascular malformation: (-) [...] without aura, often with associated vestibular symptoms. Oxku-ne-cgdyyjdt PEREZ's are often present upon waking, while [...] Stratton PA-C 09/06/23 0832 documented in this encounterUniversity Hospitals Geneva Medical Centeropendorse [facility] Ontonagon HospitalNmeqrv69-31-7460 Miscellaneous Notes* Telephone Encounter - Viviane Jamison [...] refill again. Please advise and contact patient [phone] * Telephone Encounter - Aimee Lombardo CMA [...] informed and voiced understanding. documented in this encounterKnox Community Hospital01-22-2024 Telephone encounter Note* Telephone Encounter - [...] refill again. Please advise and contact patient [phone] [facility] [employer] [id number] Telephone encounter Note* Telephone Encounter - Aimee Lombardo CMA - 07/16/2023 12:39 PM EST The patient is currently taking 60 mg 1 tab in the am of Qulipta. The patient was last seen in clinic 05/23/2023 and is scheduled to follow up 09/05/2023. [facility] [employer] [id number] Telephone encounter Note* Telephone Encounter - Ty Stratton PA-C - 07/16/2023 12:39 PM EST Take 1/2 tablet daily for 6 days, then Discontinue. - [facility] [employer] Kwibbs48-08-1081 Telephone encounter Note* Telephone Encounter - Yelitza Pickens RN - 07/16/2023 12:39 PM EST Patient informed and voiced understanding. [facility] [employer] [id number] Evaluation note* Encounter Date Diagnosis Assessment Notes [...] albuterol. Continue to monitor closely. Can take utmb-gyc-nokptuy medication for symptom relief. Exercise conservative measures, rest and push plenty of fluids. All questions answered and patient ends the call stable. May,OtherI have spent 13 minutes with this patient and over 50% of the visit was counseling done by myself, Nelida GANNON. *Progress note was completed with the assistance of voice recognition software for dictation purposes. Please excuse any grammatical errors that were not corrected during review process. [employer] Other 12-06-2023 Evaluation note* Encounter Date Diagnosis [...] 4 to 6 weeks with an update. May,Nausea (ICD-10 - R11.0)Discussed the nausea, underlying probable gastritis secondary to anxiety. She is having decent coverage throughout the day. I would like to see if increasing the dosage gives her a longer duration of coverage. Discussed conservative measures as well as dietary triggers to avoid. May,Migraines (ICD-10 - G43.909)Discussed the neurology follow-up, imaging and their recommendations. I would highly encourage her to give the rizatriptan and Qulipta a try. I did discuss the medications with patient briefly today.Please continue to follow closely with neurology. May,Other*Progress note was completed with the assistance of voice recognition software for dictation purposes. Please excuse any grammatical errors that were not corrected during review process. [employer] Other 09-11-2023 Evaluation note* Encounter Date Diagnosis Assessment Notes Treatment Notes Treatment Clinical Notes Feb, Anxiety (ICD-10 - F41.9) Discussed resuming and prescribing the Wellbutrin 150 daily. Discussed mental health and when to reach out if needed sooner. Patient verbalizes understanding Feb,Migraines (ICD-10 - G43.909)Discussed the CT head and anxiety as it could relate to the headaches. She does states she feels a bit better since the anxiety has been reduced. Patient does have neurology consult started. No new sy mptoms at this time and no need for emergent follow-up or intervention. Encouraged conservative measures Feb,Elevated DHEA (ICD-10 - E27.8)Discussed lab values today as they relate to endocrine processes and recent lab results. I would like her to continue move forward with endocrinology referral. Patient verbalized understanding. No new symptomology today Feb,Other*Progress note was completed with the assistance of voice recognition software for dictation purposes. Please excuse any grammatical errors that were not corrected during review process. [employer] Other 08-30-2023 Evaluation note* Encounter Date Diagnosis Assessment Notes Treatment Notes Treatment Clinical Notes Jan, Elevated DHEA (ICD-10 - E27.8) Extensive lab review completed in office today. Given the elevated DHEA level and cortisol level, Iwould like to repeat these labs as they were completed almost 6 months ago. She understands to takedexamethasone tablet at 11 PM and check the morning cortisol level between 7 and 9 AM. I will deferthe 24-hour urine cortisol level today as her recent check was normal. Given the neurologic symptoms that seem to persist simultaneously with these concerns, I would like to refer to endocrinology. Patient verbalizes understanding. We also reviewed pelvic ultrasound and abdominal CT in office todaywhich were essentially negative. We will also forward these to endocrinology through [facility]. Jan,Elevated cortisol level (ICD-10 - E27.0)Extensive lab review completed in office today. Given the elevated DHEA level and cortisol level, I would like to repeat these labs as they were completed almost 6 months ago. She understands to takedexamethasone tablet at 11 PM and check the morning cortisol level between 7 and 9 AM. I will deferthe 24-hour urine cortisol level today as her recent check was normal. Given the neurologic symptoms that seem to persist simultaneously with these concerns, I would like to refer to endocrinology. Nazario vaughn verbalizes understanding. We also reviewed pelvic ultrasound and abdominal CT in office todaywhich were essentially negative. We will also forward these to endocrinology through [facility]. Jan,Nausea (ICD-10 - R11.0)I would like her to trial PPI daily x 8 weeks to see if the nausea subsides at all. I am not quite convinced it is completely GI related but we cannot rule out acid reflux/GERD unless we trialed a PPI times at least 8 weeks. Patient does verbalize understanding. Take each morning. Jan,izziness (ICD-10 - R42)Given the daily migraines with dizziness, nausea, heavy sensation to the head, swelling to the hands and generalized feeling of being unwell, I would like to order CT of the head and refer to neurology. Patient verbalizes understanding and is agreeable. [facility] so the same electronic medical record can be utilized between both specialties we are referring to today. Discussed conservative measures for treatment of headache. Patient politely declines more aggressive tr eatment through medication. Jan,Migraines (ICD-10 - G43.909)Given the daily migraines with dizziness, nausea, heavy sensation to the head, swelling to the hands and generalized feeling of being unwell, I would like to order CT of the head and refer to neurology. Patient verbalizes understanding and is agreeable. We will refer to [facility] so the same electronic medical record can be utilized between both specialties we are referring to today. Discussed conservative measures for treatment of headache. Patient politely declines more aggressive treatment through medication. Jan,OtherI have spent 75 minutes with/on this patient and over 50% of the visit was counseling done by myself, Nelida GANNON.*Progress note was completed with the assistance of voice recognition software for dictation purposes. Please excuse any grammatical errors that were not corrected during review process. [employer] Other 02-22-2022 Note [id number]#1.00[facility]10-15-2021 [id number]#1.00[facility] 02-04-2020 History general Narrative - Reported* Type Description Date Medical History Anxiety Medical HistoryDepressionMedical HistorySeasonal allergiesHospitalization HistoryChildbirth02/04/2020Hospitalization ZwikxqaRlkscsigjp08/15/2021 [employer] Other Evaluation noteNo InformationNortBrys & Edgewood Other Evaluation noteNo assessment information available [facility] Work Phone: Evaluation note* Diagnosis Onset Date Resolution Status Acid reflux acuteAnxietyacuteMigrainesacuteNauseaacute [facility] Work Phone: Evaluation note* Diagnosis Migraine without aura and without status migrainosus, not intractable [facility] Diagnosis Migraine without aura and without status migrainosus, not intractable- Primary Vestibular migraine Pineal gland cyst Other specified endocrine disorders Hx of concussion Daytime somnolence documented in this [facility] Diagnosis Missed menses , unspecified gestational age ([facility]) Encounter for supervision of normal first in first trimester ([facility]) Dizzy Dizziness and giddiness Lightheaded Dizziness and giddiness [facility] Diagnosis 11 weeks gestation of ([facility]) First trimester ([facility]) state, incidental Nausea and vomiting in ([facility]) Unspecified vomiting of , unspecified as to episode of care Gastroesophageal reflux disease with esophagitis, unspecified whether hemorrhage Meconium aspiration in child of prior , currently , unspecified trimester ([facility]) [facility] Diagnosis 15 weeks gestation of ([facility]) Second trimester ([facility]) state, incidental Gastroesophageal reflux disease with esophagitis, unspecified whether hemorrhage Screening, , for anatomic survey ([facility]) Encounter for anatomic survey Exposure to STD Vaginal discharge Leukorrhea, not specified as infective Well woman exam with routine gynecological exam Routine gynecological examination Nausea and vomiting in ([facility]) Unspecified vomiting of , unspecified as to episode of care related fatigue in second trimester ([facility]) Insomnia, unspecified type Other migraine with status migrainosus, not intractable [facility] Diagnosis Nausea and vomiting in ([facility])- Primary Unspecified vomiting of , unspecified as to episode of care Second trimester ([facility]) state, incidental 20 weeks gestation of ([facility]) Elevated heart rate with elevated blood pressure without diagnosis of hypertension [facility] Diagnosis Second trimester ([facility]) state, incidental 24 weeks gestation of ([facility]) Diabetes mellitus screening Screening for diabetes mellitus [facility]* Diagnosis Third trimester ([facility]) state, incidental 28 weeks gestation of ([facility]) size inconsistent with dates ([facility]) Racing heart beat Unspecified tachycardia [facility] this [facility] Narrative - Reported* Type Description Date Medical History Anxiety Medical HistoryDepressionMedical HistorySeasonal allergiesMedical History Elevated cortisol levelMedical HistoryElevated DHEAMedical HistoryMigraines Hospitalization HistoryChildbirth02/04/2020Hospitalization HistoryChildbirth 06/08/2021 [employer] Other InstructionsNot on filedocumented in this encounter [facility] SystemInstructionsNot on filedocumented in this encounter [facility] SystemInstructionsNot on filedocumented in this encounter [facility] Summary Purpose Family History No Family History Records Found Relationship Condition Age at Onset Recorded Date/T lauro family member Malignant neoplasm of breast Unknown brotherFamily history of kidney diseaseUnknowngrandparentDiabetes mellitus UnknownDeceasedUnknowngrandparentDeceasedUnknowngrandparentMalignant neoplasm of breastUnknownNot SpecifiedHeart diseaseUnknownsisterHistory of malignant neoplasm of cervixUnknownfatherMeniere's diseaseUnknown Relationship Condition Age at Onset Recorded Date/T lauro aunt Malignant neoplasm of breast Unknown brotherFamily history of kidney diseaseUnknowngrandparentDiabetes mellitus UnknownDeceasedUnknowngrandparentDeceasedUnknowngrandparentMalignant neoplasm of breastUnknownmotherHeart diseaseUnknownsisterHistory of malignant neoplasm of cervixUnknownfatherMeniere's diseaseUnknown Advance Directives No Advanced Directives Records Found Advance Directive Response Recorded Date/ Time Advance Directives Yes July 2:59pm Reason for Referral Reason Elevated cortisol an d DHEA [facility] Diagnosis 1 Elevated DHEA (E27.8 ) Referral Organization [facility] Demetrio Varner Referring Provider First Name Nelida Referring Provider Last Name [facility] Referring Provider Specialty Nurse Pract itioner Referred Organization [facility] Referred Address [address], [place],[address] Referred Provider Specialty Endocrinolog y Referral Priority Routine Reason Neuro [facility]- sev eral ongoing neuro symptoms Pending CT head at [facility] Diagnosis 1 Dizziness (R42) Referral Organization [facility] Referring Provider First Name Nelida Referring Provider Last Name [facility] Referring Provider Specialty Nurse Pract itioner Referred Organization [facility] Referred Address [address], [place],[address] Referred Provider Specialty Neurology Referral Priority Routine SpecialtyDiagnoses / ProceduresReferred By ContactReferred To ContactRadiology Diagnoses Migraine without aura and without status migrainosus, not intractable Vestibular migraine Pineal gland cyst Procedures MR brain without contrast Ty Stratton PA-C [address] [place] [address] Referral IDStatusReasonStwhiting DateExpiration DateVisits RequestedVisits [id number] [id number] / ProceduresReferred By ContactReferred To ContactSleep Medicine Diagnoses Daytime somnolence Ty Stratton PA-C [address] [place] [address] Yanira Partida MD [facility] [place] [address] Referral IDStatusReasonStwhiting DateExpiration DateVisits RequestedVisits [id number] Review Specialty Services Required Chief Complaint and Reason for Visit Chief Complaint Amb Documentation discuss medication Chief Complaint Amb Documentation discuss medication REF BY NELIDA DING FOR NAUSEA /EARLY SATIETYReason for VisitAcid reflux Anxiety Migraines Nausea Chief Complaint discuss medication REF BY NELIDA DING FOR NAUSEA /EARLY SATIETY UnknownReason for VisitAcid reflux Anxiety Migraines Nausea Chief Complaint REF BY NELIDA EASTERWO OD FOR NAUSEA /EARLY SATIETY Unknown Amb Documentation *LAB* sinus infectionReason for VisitNausea Additional Source Comments INFORMATION SOURCE (unrecogn ized section and content) DATE CREATED AUTHOR 11/14/2021 [facility] DATE CREATED AUTHOR AUTHOR'S ORGANIZ ATION 11/05/2022 [facility] DATE CREATED AUTHOR AUTHOR'S ORGANIZ ATION 09/06/2023 [facility] DATE CREATED AUTHOR AUTHOR'S ORGANIZ ATION 04/10/2025 [facility] DATE CREATED AUTHOR AUTHOR'S ORGANIZ ATION 04/17/2025 [facility] REASON FOR VISIT (unrecogniz ed section and content) ReasonCommentsMed RefillReasonOnset DateCommentsWEENING OFF YOOGJDR4507/16/2023 ReasonCommentsFollow-upPatient is here today for 3 month follow up DX: Migraine without aura and without status migrainosus, not intractable. Patient states she fells like nothing has changed and she is still having the same frequency of migraines.ReasonCommentsAmenorrheaReasonCommentsRoutine VisitReason CommentsRoutine Visit Care Teams (unrecognized sec tion and content) Team Status: Active Member Role Status Dates Nelida Ding APRN Primary Care Provider Active Team Status: Inactive Member Role Status Dates Nelida Ding APRN Primary Care Arnaldo Marin Provider Active Start: September 19, 2023 End: September 19, 2023 Team Status: Inactive Member Role Status Dates Jake Fitzgerald APRN Attending Provider Active Start: November 28, 2023 End: November 27Jesus Schultz Care ProviderActiveStart: November 28, 2023 End: November 28, 2023 Team Status: Inactive Member Role Status Dates Nelida Ding APRN Primary Care Provider Active Start: December 05, 2023 End: December 04swapnil Wilson ProviderActiveStart: December 05, 2023 End: December 05, 2023 Team Status: Active Member Role Status Dates Provider Conversion Attending Provider Active St art: July 09, 2023 Team Status: Active Member Role Status Dates Chrissie Correia MD Primary Care Provider Active Start: September 03, 2023 Jane Vasquez ProviderActiveStart: September 03, 2023 Team Status: Active Member Role Status Dates Nelida Ding APRN Primary Care Provider Active Start: December 17, 2023 Jane Vasquez ProviderActiveStart: December 17, 2023 Team Status: Inactive Member Role Status Dates Nelida Ding APRN Primary Care Pr ovider, Attending Provider Active Start: December 25, 2023 End: December 25, 2023Team MemberRelationshipSpecialtyStart DateEnd Date Nelida Ding, ANALYTIC MANAGER-OFFICE MACHINES TEACHER [address] [address] PCP - GeneralRobert Breck [facility] Guogssvd49/13/23Te MemberRelationshipSpecialtyStart Date End Date Nelida Ding, ANALYTIC MANAGER-OFFICE MACHINES TEACHER [address] [address] PCP - GeneralRobert Breck [facility] Syvmxtsg25/13/23Te MemberRelationshipSpecialtyStart Date End Date Nelida Ding, ANALYTIC MANAGER-OFFICE MACHINES TEACHER [address] [address] PCP - GeneralRobert Breck [facility] Fnkgqtwx81/13/23Te MemberRelationshipSpecialtyStart Date End Date Unallocated, [place] [address] PCP - GeneralFamily Sqxepysm49/14/24 Treasure England DO [address] [place] [address] Referring InjpsjbguUuotnwsaq75/14/24Team MemberRelationshipSpecialtyStart Date End Date Unallocated, [place] [address] PCP - [facility]05/08/24 Treasure England DO [address] [place] [address] Referring FbqijczyxYgnrjaees67/14/24Team MemberRelationshipSpecialtyStart Date End Date Unallocated, Natalie Mccollum MD [address] [place] [address] PCP - [facility]05/08/24 Treasure England DO [address] [place] [id number] Referring WfwyflteaQregyiaue21/14/24Team MemberRelationshipSpecialtyStart Date End Date Unallocated, Natalie Mccollum MD [facility] [place] [address] PCP - [facility]05/08/24 Treasure England DO [address] [place] [id number] Referring HiiifkxjeReddtypkr70/14/24Team MemberRelationshipSpecialtyStart Date End Date Unallocated, Natalie Mccollum MD [address] [place] [address] PCP - [facility]05/08/24 Treasure England DO [address] [place] [address] Referring TvcpchsmpCuccesado56/14/24Team MemberRelationshipSpecialtyStart Date End Date Unallocated, Natalie Mccollum MD [address] [place] [address] PCP - [facility]05/08/24 Treasure England DO [address] [place] [address] Referring OwoxehuffXaolqnqzm25/14/24Team MemberRelationshipSpecialtyStart Date End Date Unallocated, Noms ProviderMD [address] [place] [address] [facility] - [facility]05/08/24 Treasure England DO [address] [place] [address] Referring UydpxkgfoCumwgxjgd76/14/24Team MemberRelationshipSpecialtyStart Date End Date Unallocated, Noms ProviderMD [address] [place] [address] [facility] - [facility]05/08/24 Treasure England DO [address] [place] [address] Referring ZagjjlzgaRoizixxge90/14/24Team MemberRelationshipSpecialtyStart Date End Date Unallocated, Noms ProviderMD [address] [place] [address] [facility]05/08/24 Treasure England DO [address] [place] [address] Referring SceqxuwphOzvgksyuh07/14/24 Goals (unrecognized section and content) Goals may [...] BE BASED ON THE PRIMARY CLINICAL RECORDS. [employer] provides no warranty or guarantee of the accuracy or completeness of information in this document.
--- NOTE | 2025-04-22 08:30 | ECG_ITS ---
[facility] Test Date: 2025-04-22 Pat Name: NATHANIEL TAYLOR Department: Room: - Gender: Female Preparation Supervisor: : 1995 Requested By: LORA TUBBS Order Number: [id number] Reading MD: TEJA SAAB Measurements Intervals [place] Rate: 84 P: 22 NC: 139 QRS: 88 QRSD: 94 T: 54 QT: 361 QTc: 429 Interpretive Statements SINUS RHYTHM No previous ECG available for comparison Electronically Signed On 04-22-2025 18:39:57 EDT by TEJA SAAB
--- NOTE | 2025-04-22 08:30 | CA_ITS ---
Patient Name: NATHANIEL TAYLOR MR#: [id number] : 1995 Exam Date: 04/22/2025 Ordering Doctor: DR LORA TUBBS . ECHOCARDIOGRAM REPORT PROCEDURE: CA ECHO DOPPLER COMPLETE INDICATIONS: Racing heart beat COMPARISON: None. DESCRIPTION: COMPLETE ECHOCARDIOGRAM Real-time transthoracic echocardiography with 2D, M-mode, spectral and color flow Doppler performed. QUALITY: Technical quality was good. LEFT VENTRICLE: Normal chamber size. Normal left ventricle wall thickness. Normal left ventricle stock function without wall motion abnormalities, ejection fraction is estimated to be 65% LV EF: Normal left ventricular ejection fraction, (>55%). DIASTOLIC: Normal diastolic function. ATRIAL SEPTUM: Visually appears intact. LEFT ATRIUM: Normal chamber size. RIGHT ATRIUM: Normal chamber size. RIGHT VENTRICLE: Normal chamber size. Normal right ventricular systolic function. TRICUSPID VALVE: Normal mobility and thickness. No stenosis with trivial regurgitation. No evidence of pulmonary hypertension.RVSP 19 mmHg MITRAL VALVE: Normal mobility and thickness. No evidence of mitral valve stenosis. There is no mitral annular calcification. Trivial mitral regurgitation. AORTIC VALVE: Normal trileaflet appearance. No visible sclerosis. Normal leaflet mobility. No evidence of aortic valve stenosis. No aortic regurgitation. AORTIC ROOT: Normal diameter and appearance. Ascending aorta is normal size PULMONIC VALVE: Normal thickness and mobility. No stenosis. Trivial regurgitation. PERICARDIUM: No evidence of pericardial effusion. IVC: Normal size and Collapes with inspirations. PLEURA: CONCLUSION: Normal left ventricle cavity size, wall thickness, and systolic function without wall motion abnormalities, ejection fraction 65% Normal left ventricle diastolic function Normal right ventricle size and systolic function Normal right-sided pressures No significant valvular abnormalities Adult Echocardiography Procedure Report Left Ventricle LVEDD (3.7 - 5.6 cm): 5.05 cm LVESD (2.2 - 4.0 cm): 3.15 cm LVIVS thickness (0.6 - 1.2 cm): 1.10 cm LVPW thickness (0.5 - 1.0 cm): 0.81 cm e': 0.17 m/s E - e': 5.01 LVOT Max Gradient: 3.76 mm[Hg] LVOT Area (cm2): 0.97 m/s Peak Velocity (LVOT): 0.97 m/s Mean Velocity (LVOT): 0.68 m/s LVOT Diameter 2.21 cm Left Ventricular Ejection Fraction: 80.06 % Left Atrium LA Volume Index (2D A2C): 21.53 ml/m2 Left Atrium Systolic Dimension: 4.30 cm Mitral Valve MV E to A Ratio: 1.04 MV Max Gradient: MV Mean Gradient: Mitral Valve A-Wave Peak Velocity: 0.84 m/s Mitral Valve E-Wave Peak Velocity: 0.87 m/s Cardiovascular Orifice Area: Right Ventricle RV Internal Diastolic Dimension: Aorta AO Root Diam: 3.18 cm Ascending Ao Diam: 2.60 cm Aortic Valve AoV Area (Peak Addison): 2.40 cm2, 2.40 cm2 AoV Area (VTI): 2.50 cm2, 2.50 cm2 Deceleration Toole: Pressure Half-Time: Peak Velocity(Antegrade Flow): 1.55 m/s Peak Gradient(Antegrade Flow): 9.63 mm[Hg] Mean Velocity(Antegrade Flow): 1.01 m/s Mean Gradient(Antegrade Flow): 4.69 mm[Hg] Velocity Time Integral: 31.28 cm Tricuspid Valve Peak Velocity (Regurgitant Flow): 2.00 m/s Peak Velocity: Pulmonic Valve Mean Gradient: 2.30 mm[Hg], 2.45 mm[Hg] Mean Velocity: 0.69 m/s, 0.73 m/s Peak Velocity: Peak Gradient: 5.11 mm[Hg], 5.52 mm[Hg] Right Atrium Right Atrium Systolic Pressure: 33.56 ml, 33.56 ml Dictated by: Verónica Lopez MD on 04/22/2025 at 18:06 Approved by: Verónica Lopez MD on 04/22/2025 at 18:12
== END 2025-04-22 08:10 | disposition home or self-care (01) ==
LOC: CARD 08:09
PROVIDERS: PCP Nurse Practitioner Family; Visit Provider Obstetrics & Gynecology
DX: R00.0 Tachycardia, unspecified (principal); Z67.91 Unspecified blood type, Rh negative; R00.9 Unspecified abnormalities of heart beat; R03.0 Elevated blood-pressure reading, without diagnosis of hypertension
CPT/HCPCS: 36415; 86850; 86900; 86901; 93005; 93306; J2791

== ENCOUNTER 2025-04-22 08:57 | Outpatient (RCR) | payer OTHER, SELFPAY ==
[2025-04-22 09:00] VITALS: BP 124/74; PULSE 80; TEMP 36.4; O2SAT 97
[2025-04-22] MEDS: RHO(D) IMMUNE GLOBULIN 1,500 UNIT SYRINGE 1500 UNIT IV (09:14)
== END 2025-04-27 12:04 | disposition home or self-care (01) ==
LOC: LAB 08:57
PROVIDERS: PCP Nurse Practitioner Family; Visit Provider Obstetrics & Gynecology
DX: Z51.81 Encounter for therapeutic drug level monitoring (principal); Z67.91 Unspecified blood type, Rh negative
CPT/HCPCS: 36415; 86850; 86900; 86901; J2791

== ENCOUNTER 2025-05-15 14:52 | Outpatient (OUT) | payer OTHER, SELFPAY ==
--- OUTSIDE RECORDS SUMMARY | 2025-05-13 13:20 | XMS_ITS | Encounter Summary ---
Author Organization [facility] Address [address] [facility] [place] [address] Care Team Providers Care Coil Assembler Name Role Phone Unallocated, Noms Provider MD Primary Care Provi aristeo Treasure England DO Unavailable [phone] Reason for Visit * ReasonCommentsRoutine Visit Encounter Details DateTypeDepartmentCare Team (Latest Contact Info)Kploovqxqel28/19/2025 1:20 PM ESTRoutine NATALIE [place] OBG[facility] [address] [place] [address] Nicole Ghosh PA [address] [place], [facility] 32 weeks gestation of ([facility]); Third trimester ([facility]); Racing heart beat Social History Tobacco UseTypesPacks/DayYears UsedDateSmoking Tobacco: NeverSmokeless Tobacco: NeverAlcohol UseStandard Drinks/WeekCommentsYes0 (1 standard drink = 0.6 oz pure alcohol)One drink per monthEstimated Date of DeliveryCommentsYes 6Based on last menstrual period of 09/28/2024Sex and Gender Information ValueDate RecordedSex Assigned at BirthNot on fileLegal WaqJyhbkd10/15/2023 8:11 PM EDTGender IdentityNot on fileSexual OrientationNot on filedocumented as of this encounter Last Filed Vital Signs Vital SignReadingTime TakenCommentsBlood Ksrffyvs647/7611 1:27 PM EST Pulse--Temperature--Respiratory Rate--Oxygen Saturation--Inhaled Oxygen Concentration--Rezgij933 kg (227 lb)05/13/2025 1:27 PM ESTHeight--Body Mass [...] Problems Diagnosis Date Noted Positive urine test ([facility]) 12/03/2024 Resolved Ambulatory Problems Diagnosis Date [...] nursing note reviewed. Exam conducted with a devulcanizer charger present. Vitals: Estimated body mass index is 34.52 kg/m?? as calculated from the following: Height as of 01/23/24: 5' 8 . Weight as of this encounter: 227 lb. BP: 118/76 Patient's last menstrual period was 09/28/2024. Assessment/Plan ICD-10-CM 1. 32 weeks gestation of ([facility]) Z3A.32 POCT urinalysis dipstick manually resulted US biophysical profile w non stress test 2. Third trimester ([facility]) Z34.93 POCT urinalysis dipstick manually resulted US [...] Plan of Treatment DateTypeDepartmentCare Team (Latest Contact Info)Vrxevihkqzg72/03/2025 1:00 PM ESTRoutine [facility] [address] [place] [address] AngelJunito denis DO [address] [place] [address] NameTypePriorityAssociated DiagnosesOrder ScheduleUS biophysical profile w non stress testImagingRoutine 32 weeks gestation of ([facility]) Third trimester ([facility]) Racing heart beat Expected: 05/13/2025 (Approximate), Expires: 11/10/2025documented as of this encounter Procedures Procedure NamePriorityDate/TimeAssociated DiagnosisCommentsPOCT URINALYSIS QHHAKOFZCfipoax78/19/2025 1:32 PM EST 32 weeks gestation of ([facility]) Third trimester ([facility]) documented in this encounter Results * (ABNORMAL) [...] Location / LateralityCollection Method / VolumeCollection TimeReceived HodaNmizy27/19/2025 1:32 PM EST Narrative Authorizing ProviderResult TypeResult StatusSentara [facility] TEST ENTER/EDIT ORDERABLESFinal Result documented in this encounter Visit Diagnoses Diagnosis 32 weeks gestation of ([facility]) Third trimester ([facility]) state, incidental Racing heart beat Unspecified tachycardia documented in this encounter Care Teams Team MemberRelationshipSpecialtyStart DateEnd Date Unallocated, Noms Provider, [address] [place], [place] [id number] PCP - GeneralFamily Sydyzwrs89/14/24 Treasure England DO [address] [place] [address] Referring RkyigvzvgBiockjuof10/14/24documented as of this encounter
--- NOTE | 2025-05-15 14:55 | US_ITS ---
[place] [id number] Patient Name: NATHANIEL TAYLOR MRN: [id number] date: 1995 Sex: F Assigned Patient Location: [facility] Current Patient Location: [facility] Accession/Order Number: [id number] Exam Date: 05/15/2025 14:56 Report Date: 05/15/2025 15:36 At the request of: LORA TUBBS DO Procedure: US OB BPP w non-stress Biophysical profile. Reason for exam: Third trimester COMPARISON: None TECHNIQUE: Transabdominal imaging of the gravid uterus was obtained. FINDINGS: The turf manager reports a BPP of 8 out of 8. CLAUDE is normal at 12.3 cm. heart rate 153 bpm. US/US OB BPP w non-stress IMPRESSION: BPP 8 out of 8. Impression dictated by: Himanshu Mckeon Jr. DEdgarOEdgar 05/15/2025 3:36 PM Dictation Location: [place] [address] Electronically authenticated by: [id number] Y Date: 05/15/2025 15:36
--- OUTSIDE RECORDS SUMMARY | 2025-05-15 14:55 | XMS_ITS | Encounter Summary ---
Author Organization [facility] Address [address] [facility] [place] [address] Care Team Providers Care Salsa Dance Instructor Name Role Phone Unallocated, Noms Provider Primary Care Provi aristeo Treasure England DO Unavailable [phone] Encounter Details DateTypeDepartmentCare Team (Latest Contact Info)Bkbzwargmne21/19/2025amboo flowsheet NATALIE KEARNS [address] [place] [address] Nicole Ghosh PA [address] [place], [place] [address] Social History Tobacco UseTypesPacks/DayYears UsedDateSmoking Tobacco: NeverSmokeless Tobacco: NeverAlcohol UseStandard Drinks/WeekCommentsYes0 (1 standard drink = 0.6 oz pure alcohol)One drink per monthEstimated Date of DeliveryCommentsYes 6Based on last menstrual period of 09/28/2024Sex and Gender Information ValueDate RecordedSex Assigned at BirthNot on fileLegal TfsVsyejx54/15/2023 8:11 PM EDTGender IdentityNot on fileSexual OrientationNot on filedocumented as of this encounter Plan of Treatment DateTypeDepartmentCare Team (Latest Contact Info)Wuxuieejdgk40/03/2025 1:00 PM ESTRoutine NATALIE KEARNS [address] [place] [address] Junito Ortiz DO [address] [place], [place] [id number] documented as of this encounter Visit Diagnoses Not on filedocumented in this encounter Care Teams Team MemberRelationshipSpecialtyStart DateEnd Date Unallocated, Noms Provider, [place] [address] PCP - GeneralFamily Mneqtelx42/14/24 Treasure England DO [address] [place] [address] Referring DevrgtbukVzpjetuqi77/14/24documented as of this encounter
--- OUTSIDE RECORDS SUMMARY | 2025-05-15 14:55 | XMS_ITS | Clinical Summary ---
Author Organization [employer] [facility] [employer] Address [id number] [place] [address] Care Team Providers Care General Education Professor Name Role Phone Kelly Mckenzie YANELI-FILM EDITOR SUPERVISOR Primary Care Provider Allergies No known active [...] without aura and without status migrainosus, not lphszcqljyw13/29/2023Pineal gland cyst05/23/2023Hx of mresxffwcl70/29/2023Vestibular sicwswtr00/27/2023Choroid plexus cyst of fetus affecting care of mother, hoohfesgip99/10/2021 Family History Medical HistoryRelationNameCommentsBreast cancerMaternal GrandmotherDiabetes Maternal [...] Frequency of Binge DrinkingNot on file12/19/2019PHQ-2AnswerDate RecordedTotal Avfhj967/29/2023ChildcareAnswerDate ZyiroeweQbyldrrnoYjzhdxl96/24/2020Employment AnswerDate ZfxlvasvIqtqporyirKpqurcj76/24/2020Hunger ScreeningAnswerDate RecordedWithin the past 12 months we worried whether our food would run out before we got money to buy more.Never True09/05/2023Within the past 12 months the food we bought just didn't last and we didn't have money to get more.Never True4Purpose - LifeAnswerDate RecordedPurpose and direction in life Rylaggd82/11/2021CommentsNoSex and Gender InformationValueDate Recorded Sex Assigned at BirthNot on fileLegal UrhJkrono99/24/2020 11:48 AM EDTGender IdentityNot on fileSexual OrientationNot on file Last Filed Vital Signs Vital SignReadingTime TakenCommentsBlood Pscnihve937/7703 9:42 AM EDT Tysxr392809/05/2023 9:42 AM EDTTemperature--Respiratory Rate--Oxygen Saturation-- Inhaled Oxygen Concentration--Affyev00.9 kg (202 lb 8 oz)09/05/2023 9:42 AM EDT Wgpogp325.7 cm (5' 8 )09/05/2023 9:42 AM EDTBody Mass Index30.7909/05/2023 9:42 AM EDT Plan of Treatment Health MaintenanceDue DateLast DoneCommentsDTaP,Tdap and Td Vaccines (1 - Tdap) 12/19/2014Pap Smear12/19/2016Depression Isuggxfce87dult BMI Aksacxgwe41Tobacco Avwyrocwt75Influenza Hakpnbo4502/23/2025 Medical Devices Not on file Insurance Care Teams Team MemberRelationshipSpecialtyStart DateEnd Date Kelly Mckenzie APRN-FILM EDITOR SUPERVISOR [address], [facility] [address] [place] [address] PCP - GeneralFamily Vfkxssdf86/13/23
--- OUTSIDE RECORDS SUMMARY | 2025-05-15 14:55 | XMS_ITS | Clinical Summary ---
Author Organization [facility] Healthcare Address [address] [place] [address] Care Team Providers Care Hand Marker Name Role Phone Unallocated, [facility] Provider MD Primary Care Provi aristeo [place] DO Unavailable [phone] Allergies Active AllergyReactionsCriticalityNoted DateCommentsPollen Dfgixdr6009/19/2023 Other Reaction(s): Unknown Reaction Medications MedicationSigDispense QuantityRefillsLast FilledStart DateEnd DateStatus magnesium 100 MG tablet 3Active Probiotic Product (PROBIOTIC ADVANCED PO) ProbioticActive pyridoxine (Vitamin B-6) 25 MG tablet Take 25 mg by mouth DailyActive Doxylamine Succinate, Sleep, (UNISOM PO) Take by mouthActive ondansetron (Zofran) 4 MG tablet Indications:Nausea and vomiting in ([facility])Take 1 tablet (4 mg) by mouth every [...] Do not crush or chew. 180 capsule 5Active metoclopramide (Reglan) 10 MG tablet Indications:Nausea and vomiting in ([facility])TAKE 1 TABLET BY MOUTH IN MORNING,AT NOON,IN EVENING 30 MINUTES PRIOR TO MEALS NEEDED FOR NAUSEA 90 tablet 5Active pantoprazole (Protonix) 40 MG EC tablet Indications:Gastroesophageal reflux disease with esophagitis, unspecified whether hemorrhageTake 1 tablet (40 mg) by mouth in the morning. Take before meals. Do not crush, chew, or split. 30 tablet /Discontinued Ambien 10 MG tablet Indications: related fatigue in second trimester ([facility]),Insomnia, unspecified typeTake 1 tablet (10 mg) by mouth as needed at bedtime for sleep for up to 5 days 5 tablet Discontinued promethazine (Phenergan) 12.5 MG tablet Indications:Nausea and vomiting in ([facility])Take 1 tablet (12.5 mg) by mouth every 8 (eight) hours if needed for nausea or vomiting for up to 30 doses Take 1 tablet by mouth every 6 hours as needed for nausea. 30 tablet Discontinued iron polysaccharides (ProFe) 391.3 (180 Fe) MG capsule Indications:Low ironTake 1 capsule (391.3 mg) by mouth Daily 30 capsule Expired Active Problems ProblemNoted DateDiagnosed DatePositive urine test ([facility])12/03/2024 Estimated Date of KibuugmfPavkjtarRgr17/11/2026ased on last menstrual period of 09/28/2024 Encounters DateTypeDepartmentCare PmdxYpbatqbmskz98/19/2025 1:20 PM ESTRoutine NOMDominguez KEARNS [address] [place] [address] [place] [address] Nicole Ghosh PA 32 weeks gestation of ([facility]); Third trimester ([facility]); Racing heart beat5Bamboo flowsheet NATALIE KEARNS [address] [place] [address] Nicole Ghosh PA 04/29/2025 1:30 PM ESTRoutine NOMDominguez Chung [facility] [place] [address] Lora Ortiz, DO Third trimester ([facility]); 30 weeks gestation of ([facility])04/29/2025 1:00 PM ESTAncillary Procedure [facility] [address] [facility] [place] [phone] size inconsistent with dates ([facility])04/22/2025linisync Result Encounter NOMS External Department Unsolicited Lora Ortiz, DO 04/22/2025linisync Result Encounter NOMS External Department Unsolicited Lora Ortiz, DO 04/15/2025 1:00 PM EDTRoutine [facility] [address] [facility] [place] [phone] Lora Ortiz, Third trimester ([facility]); 28 weeks gestation of ([facility]); size inconsistent with dates ([facility]); Racing heart beat04/15/2025bstract [facility] [address] [facility] [place] [phone] Mable Dior MA 04/15/2025amboo flowsheet [facility] [address] [facility] [place] [phone] Lora Ortiz, 04/13/2025bstract [facility] [address] [place] [phone] Mable Dior MA 04/08/2025bstract [facility] [address] [facility] [place] [phone] Marge Kirkland NP 04/01/2025Telephone [facility] [address] [facility] [place] [phone] Ariadna Bowden MA 04/01/2025linisync Result Encounter NOMS External Department Unsolicited Marge Kirkland, ZAC 03/21/2025Refill [facility] [address] [facility] [place] [address] Lora Ortiz DO Nausea and vomiting in ([facility])03/18/2025 2:20 PM EDTRoutine [facility] [address] [facility] [place] [address] Lora Ortiz DO Second trimester ([facility]); 24 weeks gestation of ([facility]); Diabetes mellitus anltfmwvy73/24/2025 2:00 PM EDTAncillary Procedure [facility] [facility] [address] [facility] [place] [address] Encounter for follow-up ultrasound of anatomy ([facility])03/05/2025bstract [facility] [facility] [address] [facility] [place] [address] Marge Kirkland NP 02/27/2025Orders Only [facility] [address] [place] [address] Marge Kirkland, ZAC Pelvic pain in female; Pelvic pain affecting , antepartum ([facility])02/25/2025Telephone [facility] [address] [place] [address] Mable Dior MA 02/20/2025bstract [facility] [address] [facility] [place] [phone] Lora Ortiz DO 02/18/2025 10:00 AM EDTRoutine [facility] [place] [facility] [address] [place] [phone] Marge Kirkland, ZAC Nausea and vomiting in ([facility]) (Primary Dx); Second trimester ([facility]); 20 weeks gestation of ([facility]); Elevated heart rate with elevated blood pressure without diagnosis of guuctkfjwawe28/27/2025 9:00 AM EDTAncillary Procedure [facility] [address] [place] [phone] 02/18/2025Refill [facility] [address] [facility] [place] [address] Cindy Weinstein LPN Gastroesophageal reflux in ([facility])from Last 3 Months Family History Medical HistoryRelationNameCommentsBreast [...] ValueDate RecordedSex Assigned at BirthNot on fileLegal GmpFrxawo59/15/2023 8:11 PM EDTGender IdentityNot on fileSexual OrientationNot on file Last Filed Vital Signs Vital SignReadingTime TakenCommentsBlood Qvjfzuyh597/7605/13/2025 1:27 PM EST Pulse--Temperature--Respiratory Rate--Oxygen Saturation--Inhaled Oxygen Concentration--Tbwcjg637 kg (227 lb)05/13/2025 1:27 PM SRDKedwbk720.7 cm (5' 8 ) 01/23/2024 1:31 PM EDTBody Mass Index34.52001/23/2024 1:31 PM EDT Plan of Treatment DateTypeDepartmentCare Team (Latest Contact Info)Gqwvfgcaazg36/03/2025 1:00 PM ESTRoutine [facility] [address] [facility] [place] [address] Lora Ortiz, [address] [facility] [place] [address] Health MaintenanceDue DateLast DoneCommentsCOVID-19 Vaccine ( season) 2025Influenza Vaccine (#1)2025Pneumococcal Vaccine: Pediatrics (0 to 5 Years) and At-Risk Patients (6 to 64 Years)Aged OutNo longer eligible based on patient's age to complete this topic Procedures Procedure NamePriorityDate/TimeAssociated DiagnosisCommentsPOCT URINALYSIS NMGINQZKGrsqzvj76/19/2025 1:32 PM EST 32 weeks gestation of ([facility]) Third trimester ([facility]) POCT URINALYSIS HNBAAJBGEgxlgbn02/05/2025 1:42 PM EST 30 weeks gestation of ([facility]) US OB FOLLOW UP TRANSABDOMINAL QJXYAZQRDeiuswt10/05/2025 1:17 PM EST size inconsistent with dates ([facility]) CA ECHO DOPPLER NYLGRVYV01/29/2025 6:12 PM EDT ECG 12-LEAD04/22/2025 8:28 AM EDT POCT URINALYSIS WXIAHGRUQgfwwbj12/22/2025 1:16 PM EDT 28 weeks gestation of ([facility]) ALL CBC WITH AUTO DIKSPjyzvwl23/08/2025 9:19 AM EDT GLUCOSE 1 RJUWXazlvyn00/08/2025 9:19 AM EDT POCT URINALYSIS UIDGQRKYFaffwkj56/24/2025 2:39 PM EDT Second trimester ([facility]) US OB LIMITED 1+ RQTVNPCQzpgwxl76/24/2025 2:17 PM EDT Encounter for follow-up ultrasound of anatomy ([facility]) POCT URINALYSIS ORDIOWFVTnxozfv93/27/2025 10:12 AM EDT Second trimester ([facility]) 20 weeks gestation of ([facility]) US OB 14+ WEEKS ANATOMY NUUARlaiqvj56/27/2025 9:59 AM EDT Screening, , for anatomic survey ([facility]) from Last 3 Months Results * (ABNORMAL) POCT urinalysis dipstick manually resulted (05/13/2025 1:32 PM EST) Only the most recent of5 resultswithin the time period is included. ComponentValueRef RangeTest MethodAnalysis TimePerformed AtPathologist Signature Color, UAYellowClarity, UAClearGlucose, UANegativeNegative - 2000(110) ++++ mg/dLBilirubin, UANegativeNegative - 4(70) +++ mg/dLKetones, UANegativeNegative - 160(16) ++++ mg/dLSpec Grav, UA1.0151 - 1.03Blood, UANegativeNegative - 50 Cj/mcLpH, UA6.05 - 9Protein, UAPositiveNegative - 2000(20) ++++ mg/dL Urobilinogen, UA1.00.2 - 12 mg/dLLeukocytes, UAPositiveNegative - 500+++ Cosmo/mcL Nitrite, UANegativeNegative - PositiveSpecimen (Source)Anatomical Location / LateralityCollection Method / VolumeCollection TimeReceived OxxaRajal34/19/2025 1:32 PM EST Narrative Authorizing ProviderResult TypeResult StatusSaugus General HospitalOINT OF CARE TEST ENTER/EDIT ORDERABLESFinal Result * US OB follow up transabdominal approach (04/29/2025 1:17 PM EST)Anatomical RegionLateralityModalityBodyUltrasoundSpecimen (Source)Anatomical Location / LateralityCollection Method / VolumeCollection TimeReceived Time04/29/2025 2:21 PM EST Impressions 04/30/2025 7:59 AM EST 1. Single, live intrauterine , current sonographic age of 32 weeks and 5 days, with an estimated date of delivery of June 19, 2025. 2. ??Comparison made with prior examination of February 18, 2025 percentile growth at that time was 72.4%, ??delivery at that time was July 06, 2025. * ??Estimated Weight (g) by Percentile is based upon an accurate estimated age based onlast menstrual period. ?? TRANSCRIBED BY: ? ELECTRONICALLY SIGNED BY: Himanshu Nogueira MD Narrative 04/30/2025 7:59 AM EST FINDINGS: A single, live intrauterine is present with normal cardiac rate of 135 ??beats per minute. Normal activity and amniotic fluid volume. Amniotic fluid index is ?? 12 cm. ??Morphology is grossly normal. The current sonographic age is 32 weeks and 5 days, based on the following measurements: BPD ?8.2cm (32 weeks,6 ??days) Head Circumference ? 30.7cm (34 weeks,1 ??days) Abdominal Circumference ? 28.2cm (32 weeks,2 ??days) Femur Length ? 6.1cm (31 weeks, 4 days) Presentation ? Cephalic ? Weight (g) by Percentile ?? 92.0% * These measurements result in an estimated date of delivery of June 19, 2025. ? The current estimated weight is 1933 ??grams ( 4 pound,4 ?? ounces). ?? Procedure Note Himanshu Nogueira MD - 04/30/2025 FINDINGS: A single, live intrauterine is present with normal cardiacrate of 135 beats per minute. Normal activity and amniotic fluidvolume. Amniotic fluid index is 12 cm. Morphology is grossly normal.The current sonographic age is 32 weeks and 5 days, based on the followingmeasurements: BPD 8.2cm (32 weeks,6 days) Head Circumference 30.7cm (34 weeks,1 days) Abdominal Circumference 28.2cm (32 weeks,2 days) Femur Length 6.1cm (31 weeks, 4 days) Presentation Cephalic Weight (g) by Percentile 92.0% * These measurements result in an estimated date of delivery of May. The current estimated weight is 1933 grams ( 4 pound,4ounces). IMPRESSION: 1. Single, live intrauterine , current sonographic age of 32weeks and 5 days, with an estimated date of delivery of May. 2. Comparison made with prior examination of February 18, 2025 percentilegrowth at that time was 72.4%, delivery at that time was June. * Estimated Weight (g) by Percentile is based upon an accurateestimated age based on last menstrual period. TRANSCRIBED BY: ELECTRONICALLY SIGNED BY: Himanshu Nogueira MD Authorizing ProviderResult TypeResult StatusCorey Angel MOSCOSO OB US PROCEDURES Final Result * CA ECHO DOPPLER COMPLETE (04/22/2025 6:12 PM EDT)Anatomical RegionLaterality ModalityOtherSpecimen (Source)Anatomical Location / LateralityCollection Method / VolumeCollection TimeReceived Time04/22/2025 6:12 PM EDT Narrative 04/22/2025 6:13 PM EDT [facility] ?[address] ? [place] [address] ? Cardiology Report ? Signed ? Patient: NATHANIEL TAYLOR ?MR#: [id number] ?? : 1995 ?Acct:[id number] ?? Age/Sex: 29 / F ?ADM Date: 04/22/25 ?? Loc: CARD ? Attending Dr: Lora Ortiz D.O. ? Ordering Physician: Lora Ortiz D.O. ?? Date of Service: 04/22/25 ?? Procedure(s): CA echo doppler complete ?? Accession Number(s): [id number] ? cc: Kelly Mckenzie SUBMAR[employer] CABLE EQUIPMENT TECHNICIAN; Lora Ortiz D.O. ? Patient Name: ? NATHANIEL TAYLOR ? MR#: [id number] ? : 1995 ? Exam Date: 04/22/2025 ?? Ordering Doctor: DR LORA ORTIZ . ? ECHOCARDIOGRAM REPORT ? PROCEDURE: ? CA ECHO DOPPLER COMPLETE ? INDICATIONS: ? Racing heart beat ? COMPARISON: ? None. ? DESCRIPTION: ? COMPLETE ECHOCARDIOGRAM Real-time transthoracic ?? echocardiography with 2D, M-mode, spectral and color flow Doppler performed. ? QUALITY: ? Technical quality was good. ? LEFT VENTRICLE: ? Normal chamber size. ??Normal left ventricle wall ?? thickness. ??Normal left ventricle stock function without wall motion ?? abnormalities, ejection fraction is estimated to be 65% ?? LV EF: Normal left ventricular ejection fraction, (>55%). DIASTOLIC: ? Normal diastolic function. ?? ATRIAL SEPTUM: ? Visually appears intact. ?? LEFT ATRIUM: ? Normal chamber size. ?? RIGHT ATRIUM: ? Normal chamber size. ?? RIGHT VENTRICLE: ? Normal chamber size. Normal right ventricular systolic ?? function. ? TRICUSPID VALVE: ? Normal mobility and thickness. No stenosis with trivial ?? regurgitation. No evidence of pulmonary hypertension.RVSP 19 mmHg ? MITRAL VALVE: ? Normal mobility and thickness. ?? No evidence of mitral valve ?? stenosis. ??There is no mitral annular calcification. Trivial mitral ?? regurgitation. ? AORTIC VALVE: ? Normal trileaflet appearance. No visible sclerosis. ??Normal ?? leaflet mobility. ??No evidence of aortic valve stenosis. No aortic ?? regurgitation. ? AORTIC ROOT: ? Normal diameter and appearance. ? Ascending aorta is normal size ? PULMONIC VALVE: ? Normal thickness and mobility. No stenosis. Trivial ?? regurgitation. ? PERICARDIUM: ? No evidence of pericardial effusion. ? IVC: ? Normal size and Collapes with inspirations. ? PLEURA: ? CONCLUSION: ? Normal left ventricle cavity size, wall thickness, and systolic function ?? without wall motion abnormalities, ejection fraction 65% ?? Normal left ventricle diastolic function ?? Normal right ventricle size and systolic function ?? Normal right-sided pressures ?? No significant valvular abnormalities ? Adult Echocardiography Procedure Report ?? Left Ventricle ?? LVEDD (3.7 - 5.6 cm): ? 5.05 cm ?? LVESD (2.2 - 4.0 cm): ? 3.15 cm ?? LVIVS thickness (0.6 - 1.2 cm): ? 1.10 cm ?? LVPW thickness (0.5 - 1.0 cm): ? 0.81 cm ?? e': ? 0.17 m/s ?? E - e': ? 5.01 ?? LVOT Max Gradient: ? 3.76 mm[Hg] ?? LVOT Area (cm2): ? 0.97 m/s ?? Peak Velocity (LVOT): ? 0.97 m/s ?? Mean Velocity (LVOT): ? 0.68 m/s ?? LVOT Diameter ? 2.21 cm ?? Left Ventricular Ejection Fraction: ? 80.06 % ?? Left Atrium ?? LA Volume Index (2D A2C): ? 21.53 ml/m2 ?? Left Atrium Systolic Dimension: ? 4.30 cm ?? Mitral Valve ?? MV E to A Ratio: ? 1.04 ?? MV Max Gradient: ? MV Mean Gradient: ? Mitral Valve A-Wave Peak Velocity: ? 0.84 m/s ?? Mitral Valve E-Wave Peak Velocity: ? 0.87 m/s ?? Cardiovascular Orifice Area: ? Right Ventricle ?? RV Internal Diastolic Dimension: ? Aorta ?? AO Root Diam: ? 3.18 cm ?? Ascending Ao Diam: ? 2.60 cm ?? Aortic Valve ?? AoV Area (Peak Addison): ? 2.40 cm2, 2.40 cm2 ?? AoV Area (VTI): ? 2.50 cm2, 2.50 cm2 ?? Deceleration Smith: ? Pressure Half-Time: ? Peak Velocity(Antegrade Flow): ? 1.55 m/s ?? Peak Gradient(Antegrade Flow): ? 9.63 mm[Hg] ?? Mean Velocity(Antegrade Flow): ? 1.01 m/s ?? Mean Gradient(Antegrade Flow): ? 4.69 mm[Hg] ?? Velocity Time Integral: ? 31.28 cm ?? Tricuspid Valve ?? Peak Velocity (Regurgitant Flow): ? 2.00 m/s ?? Peak Velocity: ? Pulmonic Valve ?? Mean Gradient: ? 2.30 mm[Hg], 2.45 mm[Hg] ?? Mean Velocity: ? 0.69 m/s, 0.73 m/s ?? Peak Velocity: ? Peak Gradient: ? 5.11 mm[Hg], 5.52 mm[Hg] ?? Right Atrium ?? Right Atrium Systolic Pressure: ? 33.56 ml, 33.56 ml ? Dictated by: Verónica oLpez MD on 04/22/2025 at 18:06 ? Approved by: Verónica Lopez MD on 04/22/2025 at 18:12 ? Dictated By: ?Verónica Lopez M.D. ? Signed By: ?04/22/25 1813 ? DD/ 11 ? TD/TT: ? Value Advisor: Procedure Note Radiology, Radiologist, MD - 04/22/2025 [place] [address] Cardiology Report Signed Patient: NATHANIEL TAYLOR AMR#: [id number] : 1995Acct:[id number] Age/Sex: 29 / FADM Date: 04/22/25 Loc: CARD Attending Dr: Lora Ortiz D.O. Ordering Physician: Lora Ortiz D.O. Date of Service: 04/22/25 Procedure(s): CA echo doppler complete Accession Number(s): [id number] cc: Kelly Mckenzie SUBMARINE CABLE EQUIPMENT TECHNICIAN; Lora Ortiz D.O. Patient Name: NATHANIEL TAYLOR MR#: [id number] : 1995 Exam Date: 04/22/2025 Ordering Doctor: DR LORA ORTIZ . ECHOCARDIOGRAM REPORT PROCEDURE: CA ECHO DOPPLER COMPLETE INDICATIONS: Racing heart beat COMPARISON: None. DESCRIPTION: COMPLETE ECHOCARDIOGRAM Real-time transthoracic echocardiography with 2D, M-mode, spectral and color flow Dopplerperformed. QUALITY: Technical quality was good. LEFT VENTRICLE: Normal chamber size. Normal left ventricle wall thickness. Normal left ventricle stock function without wall motion abnormalities, ejection fraction is estimated to be 65% LV EF: Normal left ventricular ejection fraction, (>55%). DIASTOLIC: Normal diastolic function. ATRIAL SEPTUM: Visually appears intact. LEFT ATRIUM: Normal chamber size. RIGHT ATRIUM: Normal chamber size. RIGHT VENTRICLE: Normal chamber size. Normal right ventricularsystolic function. TRICUSPID VALVE: Normal mobility and thickness. No stenosis withtrivial regurgitation. No evidence of pulmonary hypertension.RVSP 19 mmHg MITRAL VALVE: Normal mobility and thickness. No evidence of mitralvalve stenosis. There is no mitral annular calcification. Trivial mitral regurgitation. AORTIC VALVE: Normal trileaflet appearance. No visible sclerosis.Normal leaflet mobility. No evidence of aortic valve stenosis. No aortic regurgitation. AORTIC ROOT: Normal diameter and appearance. Ascending aorta is normal size PULMONIC VALVE: Normal thickness and mobility. No stenosis. Trivial regurgitation. PERICARDIUM: No evidence of pericardial effusion. IVC: Normal size and Collapes with inspirations. PLEURA: CONCLUSION: Normal left ventricle cavity size, wall thickness, and systolic function without wall motion abnormalities, ejection fraction 65% Normal left ventricle diastolic function Normal right ventricle size and systolic function Normal right-sided pressures No significant valvular abnormalities Adult Echocardiography Procedure Report Left Ventricle LVEDD (3.7 - 5.6 cm): 5.05 cm LVESD (2.2 - 4.0 cm): 3.15 cm LVIVS thickness (0.6 - 1.2 cm): 1.10 cm LVPW thickness (0.5 - 1.0 cm): 0.81 cm e': 0.17 m/s E - e': 5.01 LVOT Max Gradient: 3.76 mm[Hg] LVOT Area (cm2): 0.97 m/s Peak Velocity (LVOT): 0.97 m/s Mean Velocity (LVOT): 0.68 m/s LVOT Diameter 2.21 cm Left Ventricular Ejection Fraction: 80.06 % Left Atrium LA Volume Index (2D A2C): 21.53 ml/m2 Left Atrium Systolic Dimension: 4.30 cm Mitral Valve MV E to A Ratio: 1.04 MV Max Gradient: MV Mean Gradient: Mitral Valve A-Wave Peak Velocity: 0.84 m/s Mitral Valve E-Wave Peak Velocity: 0.87 m/s Cardiovascular Orifice Area: Right Ventricle RV Internal Diastolic Dimension: Aorta AO Root Diam: 3.18 cm Ascending Ao Diam: 2.60 cm Aortic Valve AoV Area (Peak Addison): 2.40 cm2, 2.40 cm2 AoV Area (VTI): 2.50 cm2, 2.50 cm2 Deceleration Smith: Pressure Half-Time: Peak Velocity(Antegrade Flow): 1.55 m/s Peak Gradient(Antegrade Flow): 9.63 mm[Hg] Mean Velocity(Antegrade Flow): 1.01 m/s Mean Gradient(Antegrade Flow): 4.69 mm[Hg] Velocity Time Integral: 31.28 cm Tricuspid Valve Peak Velocity (Regurgitant Flow): 2.00 m/s Peak Velocity: Pulmonic Valve Mean Gradient: 2.30 mm[Hg], 2.45 mm[Hg] Mean Velocity: 0.69 m/s, 0.73 m/s Peak Velocity: Peak Gradient: 5.11 mm[Hg], 5.52 mm[Hg] Right Atrium Right Atrium Systolic Pressure: 33.56 ml, 33.56 ml Dictated by: Verónica Lopez MD on 04/22/2025 at 18:06 Approved by: Verónica Lopez MD on 04/22/2025 at 18:12 Dictated By: Verónica Lopez M.D. Signed By:04/22/251812 DD/ 11 TD/TT: Value Advisor: Authorizing ProviderResult TypeResult StatusCorey Angel DOCLINISYNC IMAGINGFinal Result * ECG 12-LEAD (04/22/2025 8:28 AM EDT)Anatomical RegionLateralityModalityOther Specimen (Source)Anatomical Location / LateralityCollection Method / Volume Collection TimeReceived Time04/22/2025 8:28 AM EDT Narrative 04/22/2025 6:39 PM EDT [facility] ?[address] ? [place] [address] ? Electrocardiograph Report ? Signed ? Patient: NATHANIEL TAYLOR ?MR#: [id number] ?? : 1995 ?Acct:[id number] ?? Age/Sex: 29 / F ?ADM Date: 04/22/25 ?? Loc: CARD ? Attending Dr: Lora Ortiz D.O. ? Ordering Physician: Lora Ortiz D.O. ?? Date of Service: 04/22/25 ?? Procedure(s): ECG 12 lead ?? Accession Number(s): [id number] ? cc: ?[facility] ? Test Date: ?2025-04-22 ?? Pat Name: ? NATHANIEL TAYLOR ?Department: ? Room: ? - ?? Gender: ? Female ? 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 : ?1995 ? Requested By: LORA ORTIZ ?? Order Number: [id number] ?Reading MD: ?? SLY HERRERA ? Measurements ?? Intervals ?[place] ? Rate: ? 84 ? P: ?22 ?? AK: ? 139 ?QRS: ?88 ?? QRSD: ? 94 ? T: ?54 ?? QT: ? 361 ? QTc: ?429 ? Interpretive Statements ?? SINUS RHYTHM ?? No previous ECG available for comparison ?? Electronically Signed On 04-22-2025 18:39:57 EDT by SLY HERRERA ? Dictated By: ?Sly Herrera M.D. ? Signed By: ?04/22/25 1839 ?04/22/251838 ? DD/ 0828 ? TD/TT: ? Value Advisor: Procedure Note Radiology, Radiologist, MD - 04/22/2025 [place] [address] Electrocardiograph Report Signed Patient: NATHANIEL TAYLOR AMR#: [id number] : 1995Acct:[id number] Age/Sex: 29 / FADM Date: 04/22/25 Loc: CARD Attending Dr: Lora Ortiz D.O. Ordering Physician: Lora Ortiz D.O. 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 Signed By:04/22/25183804/22/251838 DD/ 7 TD/TT: Value Advisor: Authorizing ProviderResult TypeResult StatusCorey Angel BONDLINISYJUANA IMAGINGFinal Result * GLUCOSE 1 HOUR (04/01/2025 9:19 AM EDT)ComponentValueRef RangeTest Method Analysis TimePerformed AtPathologist SignatureGLUCOSE 1 AXVB964<130 mg/dLTBH Specimen (Source)Anatomical Location / LateralityCollection Method / Volume Collection TimeReceived Time04/01/2025 9:19 AM EDT1 9:27 AM EDT Narrative [facility] - 04/01/2025 10:15 AM EDT Authorizing ProviderResult TypeResult StatusKrraquela Marita NPLAB BLOOD ORDERABLESFinal ResultPerforming OrganizationAddressCity/State/ZIP CodePhone Number [facility] * (ABNORMAL) ALL CBC WITH AUTO DIFF (04/01/2025 9:19 AM EDT)ComponentValueRef RangeTest MethodAnalysis TimePerformed AtPathologist SignatureTBH WBC11.8(H) 4.0 - 11.0 10 3/uLTBHTBH RBC3.81(L)4.20 - 5.40 10 6/uLTBHTBH HGB10.9(L)12.0 - 16.0 g/dLTBHTBH HCT33.8(L)36.0 - 48.0 %TBHTBH MCV88.781.0 - 99.0 fLTBHTBH MCH 28.626.7 - 34.0 pgTBHTBH MCHC32.229.9 - 35.2 g/dLTBHTBH RDW12.611.0 - 15.0 % TBHTBH [id number] - 450 10 3/uLTBHTBH MPV11.09.5 - 13.5 [...] 9:19 AM EDT1 9:27 AM EDT Narrative GARRYISYNC - 04/01/2025 10:35 AM EDT Authorizing ProviderResult TypeResult StatusMarge Kirkland NPCLINISYNCFinal ResultPerforming OrganizationAddressCity/State/ZIP CodePhone Number [facility] * US OB limited 1+ fetuses (03/18/2025 [...] date of July 05, 2025. Procedure Note Himansuh Nogueira MD - 03/19/2025 FINDINGS: Breech presentation. Heart rate 132. Morphology is grossly normal, whichincludes thoracolumbar, lumbosacral, distal lumbar evaluation. Gestational age of 24 weeks and 3 days, estimated delivery date of 2025. IMPRESSION: Single viable intrauterine , appropriate thoracolumbar,lumbosacral anatomy for this age. TRANSCRIBED BY: ELECTRONICALLY SIGNED BY: Himanshu Nogueira MD Authorizing ProviderResult TypeResult StatusCorey Angel [facility] OB [facility] PROCEDURES Final Result * US [...] Nogueira MD Authorizing ProviderResult TypeResult StatusCorey Angel DOIMG OB US PROCEDURES Edited Result - Final from Last 3 Months Insurance Care Teams Team MemberRelationshipSpecialtyStart DateEnd Date Unallocated, [place] Provider, [address] [place] [address] PCP - GeneralFamily Usrlqbeb79/14/24 Treasure England DO [address] [place] [address] Referring HgotqrsbtZnrwhdkij50/14/24
--- OUTSIDE RECORDS SUMMARY | 2025-05-15 14:56 | XMS_ITS | CCD ---
Author Organization [facility] Care Team Providers Care Branch Manager Name Role Phone NICK, DR NIELSEN Admitting Unavailable NICK, DR NIELSEN Attending Unavailable SMITH ., VI Primary Care Unavailable NICK, DR NIELSEN Consulting Unavailable ANGEL ., DR PAULINO Consulting Unavailable ANGEL ., DR PAULINO Admitting Unavailable ANGEL ., DR PAULINO Attending Unavailable SMITH ., VI Primary Care Unavailable PALMER, DR NIELSEN V Consulting Unavailable ANGEL ., [...] ble ANGEL ., DR PAULINO Consulting Unavailable [place], Nelida Unavailable TY STRATTON Attending Unavailable BONERWOOD, NELIDA Referring Unavailable BONERWOOD, NELIDA Primary Care Unavailable YANELI Ding Primary Care Provider 1( [phone] Junito Ortiz Attending Provider [phone] Magaly WINE STEWARDNelida HANSEN Primary Care Provider Unallocated , [place] Provider Primary Care Provi aristeo Treasure England DO Unavailable Treasure England DO Unavailable JUNITO ORTIZ Attending Unavailable ANGEL, JUNITO Attending Unavailable INNA KIRKLAND Attending Unavailable ANGEL, JUNITO Referring Unavailable ANGEL, JUNITO Attending Unavailable ANGEL, JUNITO Attending Unavailable ANGEL, JUNITO Referring Unavailable ANGEL, JUNITO Attending Unavailable Inna Kirkland Attending Unavailable Inna Kirkland Admitting Unavailable Nelida Ding Primary Care Unavailable Allergies Allergy ClassificationReported Allergen(s)Allergy TypeDate of OnsetReaction(s) Facility (9 sources)House dust miteDrug allergyTaxiPixiNeponsit [facility] Other (20 sources)PollenDrug -26-1803Wtriaru[place] [employer] Other (5 sources)house dust allergenic extract; Translations: [house dust]Drug Allergy 85-34-3280Xnjqqbw Reaction[facility] (5 sources)Pollen; Translations: [pollen extracts]Allergy to expmjrelg94-60-9581 Unknown ReactionEast [facility] Medications Current Medications MedicationDrug Class(es)DatesSig (Normalized)Sig (Original)acetaminophen 300 mg / codeine phosphate 30 mg oral tablet (4 sources)Opioid AgonistStart: 01-14-2025 End: 82-95-4442zjim 1 tablet by mouth every six hours [...] Activedexamethasone 1 mg oral tablet (2 sources)CorticosteroidStart: 85-76-9638Nscvinghglibc 1 MG 1 tablet Orally 11pm for 1 days Jan, ActiveDoxylamine Succinate, Sleep, (UNISOM PO) (19 sources)Doxylamine Succinate, Sleep, (UNISOM PO) Take by mouth Active fexofenadine (10 sources)Histamine-1 Receptor AntagonistStart: 39-60-3684spycdvttacaz ([facility]) Active PO December 25, 2023 12:00amStart: 09-19-2023 End: 02-60-7487ekzntgnjojle ([facility]) Discontinued PO Daily September 19, 2023 12:00am November 28, 2023 8:59amStart: 44-10-9223cmzofktsqsyc (Blacnhe Allergy) Active PO Daily September 19, 2023 12:00amStart: 09-12-2023 End: 54-86-7640fewofvfxlryt (Blanche Allergy) 180 MG tablet 09/12/2023 12/17/2024 DiscontinuedMagnesium (20 sources)Start: 56-98-6140kwoyktxdg Active PO December 25, 2023 12:00amStart: 09-03-2023 End: 75-84-5894zvfzgphky Discontinued PO September 03, 2023 12:00am November 28, 2023 8:59amStart: 55-02-7213yjyvxulex Active PO September 03, 2023 12:00amStart: 37-19-3762wijoedhxv 100 MG tablet 08/17/2022 ActiveMagnesium OTC, daily Active metoclopramide 10 mg oral tablet (20 sources)Dopamine-2 Receptor AntagonistStart: 73-75-4511ogtl 1 tablet by mouth in the morning as needed for nauseametoclopramide (Reglan) 10 MG tablet Indications: Nausea and vomiting in ([facility] TAKE 1TABLET BY MOUTH IN MORNING,AT NOON,IN EVENING 30 MINUTES PRIOR TO MEALS NEEDED FOR NAUSEA 90 tablet 1 03/23/2025 ActiveStart: 01-26-2025 End: 40-37-5056zukomktfvccxqh (Reglan) 10 MG tablet Indications: Nausea and vomiting in ([facility] Take 1tablet (10 mg) by mouth in the morning and 1 tablet (10 mg) at noon and 1 tablet (10 mg) in the evening. Take before meals. Take 1 tablet by mouth 30 minutes prior to meals 3 times daily as needed for nausea. 90 tablet 1 01/26/2025 ActiveStart: 01-14-2025 End: 20-79-5723xmff 1 tablet by mouth three times daily as neededmetoclopramide (Reglan) 10 MG tablet Indications: Nausea and vomiting in ([facility]) Take 1tablet (10 mg) by mouth 3 (three) times a day as needed (as needed prior to meals) for up to 10 days 1 tablet 01/14/2025 01/24/2025 ActiveStart: 12-16-2024 End: 84-10-6053koqx 1 tablet by mouth before mealtime as needed for nausea metoclopramide (Reglan) 10 MG tablet Indications: Nausea and vomiting in ([facility]) TAKE 1TABLET BY MOUTH IN THE MORNING, NOON, EVENING, 30 MINUTES BEFORE MEALS NEEDED FOR NAUSEA 90 tablet 3 12/16/2024 12/17/2024 Discontinued (Ineffective)Start: 11-14-2024 End: 13-75-0800rchglpxweoapbl (Reglan) 10 MG tablet Indications: Nausea and vomiting in ([facility]) Take 1tablet (10 mg) by mouth in the morning and 1 tablet (10 mg) at noon and 1 tablet (10 mg) in the evening. Take before meals. Take 1 tablet by mouth 30 minutes prior to meals 3 times daily as needed for nausea. 90 tablet 11/14/2024 12/14/2024 Activeomeprazole 20 mg delayed release oral capsule (20 sources)Proton Pump InhibitorStart: 01-26-2025 End: 28-61-3823rvnb 2 capsules by mouth before mealtimeomeprazole (PriLOSEC) [address] capsule Indications: Gastroesophageal Reflux Disease , Heartburn Take 2 capsules (40 mg) by mouth in the morning. Take before meals. Do not crush or chew. 180 capsule 05/19/2025 ActiveStart: 09-03-2023 End: 08-53-9413wgxj 40 mg by mouth once dailyOmeprazole Discontinued 40 MG PO Daily 90 90 September 03, 2023 2:16pm November 28, 2023 8:59amStart: 09-34-1002laen 2 capsules by mouth in the morningomeprazole (PriLOSEC) 20 mg capsule Take 2 capsules (40 mg total) by mouth in the morning. 02/21/2023 ActiveStart: 50-51-2267tbou 1 capsule by mouth once dailyOmeprazole 40 MG 1 capsule 30 minutes before morning meal Orally Once a day for 90 days Jan, Active Start: 46-92-5965mgqr 1 capsule by mouth in the morningomeprazole (PriLOSEC) 20 mg capsule Take 1 capsule (20 mg total) by mouth in the morning. 0 02/21/2023 Activeondansetron 4 mg oral tablet (20 sources)Serotonin-3 Receptor AntagonistStart: 11-05-2024 End: 33-75-5643pktf 1 tablet by mouth every six hours as needed for nausea and nausea, then take 1 tablet by mouthevery six hours as needed for nausea and nauseaondansetron (Zofran) 4 MG tablet Indications: Nausea and vomiting in ([facility]) Take 1 tablet (4 mg) by mouth every 6 (six) hours if needed for nausea or vomiting for up to 30 doses Take 1 tablet by mouth every 6 hours as needed for nausea. 30 tablet 3 01/14/2025 ActiveStart: 09-03-2023 End: 80-17-9508malt 4 mg by mouth once dailyOndansetron Hcl Active 4 MG PO Daily December 25, 2023 12:36pmStart: 84-80-5221vgxg 1 tablet by mouth every twenty-four hoursOndansetron HCl 4 MG 1 tablet Orally Once a day for 14 days Jun, Active End: 87-06-0423kjax 1 tablet by mouth every eight hours as neededondansetron ODT (Zofran-ODT) 4 MG disintegrating tablet Take 4 mg by mouth every 8 (eight) hours ifneeded 12/17/2024 Discontinuedtake 1 tablet by mouth every six hours as neededOndansetron HCl 4 MG 1 tablet on the tongue and allow to dissolve Orally every 6 hours as needed Not-Taking/PRNpantoprazole 40 mg delayed release oral tablet (19 sources)Proton Pump InhibitorStart: 12-17-2024 End: 82-09-6532iiro 1 tablet by mouth before mealtimepantoprazole (Protonix) 40 MG EC tablet Indications: Gastroesophageal reflux disease with esophagitis, unspecified whether hemorrhage Take 1 tablet (40 mg) by mouth in the morning. Take before meals.Do not crush, chew, or split. 30 tablet 11 12/17/2024 12/17/2025 ActiveProbiotic Product (PROBIOTIC ADVANCED PO) (20 sources)Probiotic Product (PROBIOTIC ADVANCED PO) Probiotic Active promethazine hydrochloride 12.5 mg oral tablet (12 sources)PhenothiazineStart: 27-29-8976accj 1 tablet by mouth every eight hours as needed for nausea and nausea, then take 1 tablet by mouth every six hours as needed for nausea and nauseapromethazine (Phenergan) 12.5 MG tablet Indications: Nausea and vomiting in ([facility]) Take 1 tablet (12.5 mg) by mouth every 8 (eight) hours if needed for nausea or vomiting for up to 30 dos es Take 1 tablet by mouth every 6 hours as needed for nausea. 30 tablet 2 02/18/2025 Activepyridoxine hydrochloride 25 mg oral tablet (19 sources)take 1 tablet by mouth once dailypyridoxine [...] PERSISTSMAX 2/24HR 12 tablet 2 07/04/2024 ActiveStart: 52-98-4348lbukapvpydg (MAXALT) 10 mg tablet Indications: Migraine without aura and without status migrainosus, not intractable Take 1 tablet just after onset of migraine. May repeat the dose after 2 hours if migraine persists. Max of 2 doses per 24 hours. 12 tablet 2 09/05/2023 ActiveStart: 05-23-2023 End: 69-31-3372byei 5 mg by mouth once dailyRizatriptan Discontinued 5 MG PO Daily September 03, 2023 12:00am November 28, 2023 8:59amverapamil hydrochloride 120 mg extended release oral tablet (2 sources)Calcium Channel BlockerStart: 13-93-6362swtk 1 tablet by mouth once dailyverapamil SR (CALAN-SR) 120 mg CR tablet Indications: Migraine without aura and without status migrainosus, not intractable Take 1 tablet (120 mg total) by mouth nightly. 30 tablet 5 09/05/2023 Activezolpidem tartrate 10 mg oral tablet (16 sources)gamma-Aminobutyric Acid-ergic AgonistStart: 01-14-2025 End: 62-91-6316Rpevfw 10 MG tablet Indications: related fatigue in second trimester ([facility]) , Insomnia, unspecified type Take 1 tablet (10 mg) by mouth as needed at bedtime for sleep for up to 5 days 5 tablet 01/14/2025 Active Completed/Discontinued Medications MedicationDrug Class(es)DatesSig (Normalized)Sig (Original)Atogepant (4 sources)Start: 09-03-2023 End: 17-56-0246soyi 60 mg by mouth once dailyAtogepant Discontinued 60 MG PO Daily September 03, 2023 12:00am September 19, 2023 11:04amatogepant (QULIPTA) 60 mg tablet (2 sources)Start: 05-23-2023 End: 98-13-8670lbfn 1 tablet by mouth in the morningatogepant (QULIPTA) 60 mg tablet Indications: Migraine without aura and without status migrainosus,not intractable Take 60 mg by mouth in the morning. 30 tablet 5 05/23/2023 09/05/2023 DiscontinuedStart: 42-95-8423ilbq 1 tablet by mouth in the morning atogepant (QULIPTA) 60 mg tablet Indications: Migraine without aura and without status migrainosus,not intractable Take 60 mg by mouth in the morning. 30 tablet 5 05/23/2023 Xliwgq30 hr buPROPion hydrochloride 150 mg extended release oral tablet (20 sources)AminoketoneStart: 09-19-2023 End: 33-29-9361ahoa 150 mg by mouth once dailyBupropion Hcl Discontinued 150 MG PO Daily 90 September 19, 2023 11:41am November 28, 2023 8:59amStart: 09-03-2023 End: 39-23-9528lroz 1 tablet by mouth once dailyBupropion Hcl [...] oral tablet (5 sources)Histamine-2 Receptor Antagonist End: 05-09-0202qroigfasbk (Pepcid) 10 MG tablet Take by mouth 01/14/2025 Discontinuedmagnesium oxide 250 mg oral tablet (2 sources) End: 44-31-4700jjbc 1 tablet by mouth in the morningmagnesium oxide 250 mg tablet Take 1 tablet (250 mg total) by mouth in the morning. 0 09/05/2023 Dis continuedPNV no.95/ferrous fum/folic ac ( ORAL) (2 sources) End: 57-23-9160rbrh 1 tablet by mouth once daily before mealtimePNV no.95/ferrous fum/folic ac ( ORAL) Take 1 tablet by mouth daily. 0 09/05/2023 Discontinuedtake 1 tablet by mouth once daily before mealtimePNV no.95/ferrous fum/folic ac ( ORAL) Take 1 tablet by mouth daily. 0 Activepolysaccharide iron complex 391 mg oral capsule (7 sources)Start: 04-01-2025 End: 89-75-2600emmi 1 capsule by mouth once dailyiron polysaccharides (ProFe) 391.3 (180 Fe) MG capsule Indications: Low iron Take 1 capsule (391.3 mg) by mouth Daily 30 capsule 6 04/01/2025 05/01/2025 Expiredpropranolol hydrochloride 20 mg oral tablet (4 sources)beta-Adrenergic BlockerStart: 05-23-2023 End: 11-04-4917pgglthpnkzN (INDERAL) 20 mg tablet Indications: Migraine without aura and without status migrainosus, not intractable Take 1 tablet (20 mg) twice daily for 3 days, then reduce to 1 tablet daily for 3days, then discontinue 9 tablet 0 05/23/2023 09/05/2023 Discontinuedtake 1 tablet by mouth at bedtime Propranolol HCl 60 MG 1 tablet Orally HS for migraines Activevitamin B12 (5 sources)Vitamin D94Mcrrisg B12 Not-Taking Problems Active Problems Problem ClassificationProblemDateDocumented DateEpisodic/ChronicAnxiety disorders (17 sources)Anxiety; Translations: [Anxiety disorder, unspecified]ChronicComa; stupor; and brain damage (2 sources)Somnolence; Translations: [Daytime somnolence]Onset: 09-05-2023 48-48-8720QrnlnlyaLhgmsiaqlb associated with dizziness or vertigo (12 sources)Dizziness; Translations: [Dizziness and giddiness]EpisodicEsophageal disorders (9 sources)Gastroesophageal reflux disease; Translations: [Gastro-esophageal reflux disease without esophagitis]91-89-6616UzaxjnbXpyfhyzk; including migraine (20 sources)Migraine; Translations: [Migraine, unspecified, not intractable, without status migrainosus]Onset: 44-59-5847HsckaywCxjvp valve disorders (6 sources)Tachycardia; Translations: [Unspecified abnormalities of heart beat] 30-55-5716EioogzhmIpzjeyimmxhil and screening for infectious disease (3 sources)Encounter for screening for human papillomavirus (HPV); Translations: [Exposure to sexually transmissible disorder]Onset: 525252-57-6795Rlysgvnj Malaise and fatigue (1 source)Other fatigue; Translations: [OTHER FATIGUE]Onset: 59-92-4736Thalkwjt Menstrual disorders (5 sources)Irregular menstruation, unspecified; Translations: [Missed period] Onset: 22-56-4935VszbndwDsuw disorders (13 sources)Depressive disorder; Translations: [Major depressive disorder, single episode, unspecified]26-26-4571LwffpfzNgzavm and vomiting (18 sources)Nausea; Translations: [Nausea]Onset: 67-32-0799PzamnnpoTnrnk bone disease and musculoskeletal deformities (1 source)Segmental and somatic dysfunction of pelvic region; Translations: [Segmental and somatic dysfunction of pelvic region]Onset: 57-65-7229Xvttjfxz Other complications of (6 sources)Vomiting of , unspecified; Translations: [Unspecified vomiting of , unspecified as to episode of care or not applicable] 49-76-3690XuoaecdpWcvva complications of (2 sources)High risk ; Translations: [Supervision of with other poor reproductive or obstetric history, unspecified trimester]12-17-2024 EpisodicOther complications of (2 sources)Fatigue during ; Translations: [ related exhaustion and fatigue, second trimester]43-60-9828IvsmbwuyLthym complications of (2 sources) size does not accord with dates; Translations: [Uterine size- date discrepancy, unspecified trimester]55-73-6008AeqqokzoEmxjy endocrine disorders (5 sources)Other adrenocortical overactivity; Translations: [OTHER ADRENOCORTICAL OVERACTIVITY]Onset: 28-75-8373XfxjcffSleli endocrine disorders (9 sources)Dehydroepiandrosterone sulfate level; Translations: [Other specified disorders of adrenal gland]ChronicOther endocrine disorders (9 sources)Increased cortisol level; Translations: [Other adrenocortical overactivity]ChronicOther endocrine disorders (2 sources)Other specified disorders of adrenal glandChronicOther female genital disorders (2 sources)Vaginal discharge; Translations: [Other specified noninflammatory disorders of vagina]39-37-6709XyemyyvmAhpbl and delivery including normal (20 sources); Translations: [Encounter for supervision of normal , unspecified, unspecified trimester]Onset: EpisodicOther screening for suspected conditions (not mental disorders or infectious disease) (20 sources)Encounter for screening for malignant neoplasm of cervix; Translations: [Other specified abnormal findings of blood chemistry]Onset: 40-89-0116LwzluzuwDqips upper respiratory disease (13 sources)Seasonal allergy; Translations: [Other seasonal allergic rhinitis] 94-42-3492HhyqihqRvypl upper respiratory infections (1 source)Acute upper respiratory infection, unspecifiedEpisodicResidual codes; unclassified (2 sources)Gestation period, 11 weeks; Translations: [11 weeks gestation of ]30-34-0277NtigdhalPezuxwzg codes; unclassified (2 sources)Gestation period, 15 weeks; Translations: [15 weeks gestation of ]21-26-6913GetpjknfFtuhztdz codes; unclassified (2 sources)Insomnia; Translations: [Insomnia, unspecified]63-87-5504Ovvuseje Residual codes; unclassified (2 sources)Gestation period, 20 weeks; Translations: [20 weeks gestation of ]56-91-6033IxloqakeNvcpxqgq codes; unclassified (2 sources)Gestation period, 24 weeks; Translations: [24 weeks gestation of ]12-58-8294DflcmeneScsiqete codes; unclassified (2 sources)Gestation period, 28 weeks; Translations: [28 weeks gestation of ]83-01-4925HftqldmjElarsibf codes; unclassified (2 sources)Gestation period, 30 weeks; Translations: [30 weeks gestation of ]26-42-0377Fulqodup Past or Other Problems Problem ClassificationProblemDateDocumented DateEpisodic/ChronicAbdominal pain (4 sources)Unspecified abdominal pain; Translations: [UNSPECIFIED ABDOMINAL PAIN]Onset: 23-00-2159ByekuwpxLxhgubvipobt injury (5 sources)Personal history of traumatic brain injury; Translations: [History of concussion injury of brain]Onset: 867640-82-3985ScimlfniWsop disorders (3 sources)Mood disordersOnset: Other complications of ; puerperium affecting management of mother (3 sources)Central nervous system malformation in fetus affecting obstetrical care; Translations: [Choroid plexus cyst of fetus affecting care of mother, antepartum]Onset: 674603-77-3660RtiiiqfmOdbgm endocrine disorders (1 source)Endocrine disorder, unspecified; Translations: [ENDOCRINE DISORDER UNSPECIFIED]Onset: 46-60-1613UtuvwurvTmigq endocrine disorders (1 source)Other specified endocrine disorders; Translations: [Other specified endocrine disorders]Onset: 61-07-4177RodjlaaoQaxhp endocrine disorders (4 sources)Cyst of pineal gland; Translations: [Other specified endocrine disorders]Onset: 796062-45-9668AgxpsugxRqrxj gastrointestinal disorders (1 source)Abdominal distension (gaseous); Translations: [ABDOMINAL DISTENSION GASEOUS]Onset: 96-15-3004UitqrecbMgfpnkq cyst (1 source)Other ovarian cyst, right side; Translations: [OTHER OVARIAN CYST RIGHT SIDE]Onset: 21-27-2263Bvdrnumo Results Test NameValueInterpretationReference RangeFacilityUS OB FOLLOW UP TRANSABDOMINAL APPROACHon 49-62-1138BA OB FOLLOW UP TRANSABDOMINAL APPROACH FINDINGS: A single, live intrauterine is present with normal cardiac rate of 135 beats per minute. Normal activity and amniotic fluid volume. Amniotic fluid index is 12 cm. Morphology is grossly normal. The current sonographic age is 32 weeks and 5 days, based on the following measurements: BPD 8.2cm (32 weeks,6 days) Head Circumference 30.7cm (34 weeks,1 days) Abdominal Circumference 28.2cm (32 weeks,2 days) Femur Length 6.1cm (31 weeks, 4 days) Presentation Cephalic Weight (g) by Percentile 92.0% * These measurements result in an estimated date of delivery of June 19, 2025. The current estimated weight is 1933 grams ( 4 pound,4 ounces). IMPRESSION: 1. Single, live intrauterine , current sonographic age of 32 weeks and 5 days, with an estimated date of delivery of June 19, 2025. 2. Comparison made with prior examination of February 18, 2025 percentile growth at that time was 72.4%, delivery at that time was July 06, 2025. * Estimated Weight (g) by Percentile is based upon an accurate estimated age based on last menstrual period. TRANSCRIBED BY: ELECTRONICALLY SIGNED BY: Sam BatesalNot AvailableComment on above:Order Comment: US OB SCAN FOR GROWTH Estimated Date of Delivery: 07/05/25 Gestational Age as of 04/15/2025: 11h9nGalfyfxmjx macro (dipstick) panel (U)on 07-23-6857Mnimkrryz, UANegativeNegative - 4(70) +++ mg/dLNOMS HealthcareBlood, UANegativeNegative - 50 Cj/mcLNOMS HealthcareClarity, UAClearNOMS Healthcare Color, UAYellowNOMS HealthcareGlucose, UANegativeNegative - 2000(110) ++++ mg/dL NOMS HealthcareInterpretation and review of laboratory resultsAbnormalNOMS HealthcareKetones, UANegativeNegative - 160(16) ++++ mg/dLNOMS Healthcare Leukocytes, UATraceNegative - 500+++ Cosmo/mcLNOMS HealthcareNitrite, UANegative Negative - PositiveNOMS HealthcarepH, UA7.05 - 9NOMS HealthcareProtein, UA NegativeNegative - 2000(20) ++++ mg/dLNODC HealthcareSpec Grav, UA1.0101 - 1.03 NOMS HealthcareUrobilinogen, UA1.00.2 - 12 mg/dLNODC HealthcareNODC HealthcareCA ECHO DOPPLER COMPLETEon [id number] [address] Cardiology Report Signed Patient: NATHANIEL BOB MR#: [id number] : 1995 Acct:[id number] Age/Sex: 29 / F ADM Date: 04/22/25 Loc: CARD Attending Dr: Junito Ortiz D.O. Ordering Physician: Junito Ortiz D.O. Date of Service: 04/22/25 Procedure(s): CA echo doppler complete Accession Number(s): [id number] cc: Nelida Ding FIRST RESPONDER; Junito Ortiz D.O. Patient Name: NATHANIEL BOB MR#: [id number] : 1995 Exam Date: 04/22/2025 Ordering Doctor: DR JUNITO ORTIZ . ECHOCARDIOGRAM REPORT PROCEDURE: CA ECHO DOPPLER COMPLETE INDICATIONS: Racing heart beat COMPARISON: None. DESCRIPTION: COMPLETE ECHOCARDIOGRAM Real-time transthoracic echocardiography with 2D, M-mode, spectral and color flow Doppler performed. QUALITY: Technical quality was good. LEFT VENTRICLE: [...] RIGHT VENTRICLE: Normal chamber size. Normal right ventricular systolic function. TRICUSPID VALVE: Normal mobility and thickness. No stenosis with trivial regurgitation. No evidence of pulmonary hypertension.RVSP 19 mmHg MITRAL VALVE: Normal mobility and thickness. No evidence of mitral valve stenosis. There is no mitral annular calcification. Trivial mitral regurgitation. AORTIC VALVE: Normal trileaflet appearance. No visible sclerosis. Normal leaflet mobility. No evidence of aortic valve [...] Area (VTI): 2.50 cm2, 2.50 cm2 Deceleration [place]: Pressure Half-Time: Peak Velocity(Antegrade Flow): 1.55 m/s Peak Gradient(Antegrade Flow): 9.63 mm[Hg] Mean Velocity(Antegrade Flow): 1.01 m/s Mean Gradient(Antegrade Flow): 4.69 mm[Hg] Velocity Time Integral: 31.28 cm Tricuspid Valve Peak Velocity (Regurgitant Flow): 2.00 m/s Peak Velocity: Pulmonic Valve Mean Gradient: 2.30 mm[Hg], 2.45 mm[Hg] Mean Velocity: 0.69 m/s, 0.73 m/s Peak Velocity: Peak Gradient: 5.11 mm[Hg], 5.52 mm[Hg] Right Atrium (more content not included)...TBHRadiology, Radiologist, - 04/22/2025 [place] [address] Cardiology Report Signed Patient: NATHANIEL BOB MR#: [id number] : 1995 Acct:[id number] Age/Sex: 29 / F ADM Date: 04/22/25 Loc: CARD Attending Dr: Junito Ortiz D.O. Ordering Physician: Junito Ortiz D.O. Date of Service: 04/22/25 Procedure(s): CA echo doppler complete Accession Number(s): [id number] cc: Nelida Ding FIRST RESPONDER; Junito Ortiz D.O. Patient Name: NATHANIEL BOB MR#: [id number] : 1995 Exam Date: 04/22/2025 Ordering Doctor: DR JUNITO ORTIZ . ECHOCARDIOGRAM REPORT PROCEDURE: CA ECHO DOPPLER COMPLETE INDICATIONS: Racing heart beat COMPARISON: None. DESCRIPTION: COMPLETE ECHOCARDIOGRAM Real-time transthoracic echocardiography with 2D, M-mode, spectral and color flow Doppler performed. QUALITY: Technical quality was good. LEFT VENTRICLE: [...] RIGHT VENTRICLE: Normal chamber size. Normal right ventricular systolic function. TRICUSPID VALVE: Normal mobility and thickness. No stenosis with trivial regurgitation. No evidence of pulmonary hypertension.RVSP 19 mmHg MITRAL VALVE: Normal mobility and thickness. No evidence of mitral valve stenosis. There is no mitral annular calcification. Trivial mitral regurgitation. AORTIC VALVE: Normal trileaflet appearance. No visible sclerosis. Normal leaflet mobility. No evidence of aortic valve [...] Area (VTI): 2.50 cm2, 2.50 cm2 Deceleration [place]: Pressure Half-Time: Peak Velocity(Antegrade Flow): 1.55 m/s [...] 18:12 Dictated By: Verónica Lopez M.D. Signed By: 04/22/251812 DD/ 11 TD/TT: Livestock Breeder: [facility] HOSPITALDominguez HealthcareRadiology Study observation (narrative)[facility]al HealthCA ECHO DOPPLER COMPLETEOrdered By: Radiologist Radiology on [phone] 911 Work Phone: ecg [phone] [place], [place] [address] Electrocardiograph Report Signed Patient: NATHANIEL BOB MR#: [id number] : 1995 Acct:[id number] Age/Sex: 29 / F ADM Date: 04/22/25 Loc: CARD Attending Dr: Junito Ortiz D.O. Ordering Physician: Junito Ortiz D.O. 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 Signed By: 04/22/25183804/22/251838 DD/ 7 TD/TT: Livestock Breeder:CHADWICKadiolSarahi acosta MD - 04/22/2025 [facility] [place] [id number] Electrocardiograph Report Signed Patient: NATHANIEL BOB MR#: [id number] : 1995 Acct:[id number] Age/Sex: 29 / F ADM Date: 04/22/25 Loc: CARD Attending Dr: Junito Ortiz D.O. Ordering Physician: Junito Ortiz D.O. 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 Signed By: 04/22/25183804/22/251838 DD/ 7 TD/TT: Livestock Breeder: NATALIE BarriosRadiology Study observation (narrative)[facility] HealthcareECG 12-LEAD Ordered By: Radiologist Radiology on 31-55-7286[facility] Work Phone: Urinalysis macro (dipstick) panel (U)on 04-15-2025 Bilirubin, UANegativeNegative - 4(70) +++ mg/dLNOMS HealthcareBlood, UANegative Negative - 50 Cj/mcLNOMS HealthcareClarity, UAClearNOMS HealthcareColor, UA YellowNOMS HealthcareGlucose, UANegativeNegative - 2000(110) ++++ mg/dLNOMS HealthcareInterpretation and review of laboratory resultsAbnormalNOMS Healthcare Ketones, UANegativeNegative - 160(16) ++++ mg/dLNOMS HealthcareLeukocytes, UA TraceNegative - 500+++ Cosmo/mcLNODC HealthcareNitrite, UANegativeNegative - PositiveNOMS HealthcarepH, UA6.05 - 9NOMS HealthcareProtein, UATraceNegative - 2000(20) ++++ mg/dLNODC HealthcareSpec Grav, UA1.0201 - 1.03NOMS Healthcare Urobilinogen, UA2.00.2 - 12 mg/dLNOMS HealthcareNOMS HealthcareGLUCOSE 1 HOURon 12-29-6180Cijmsyg [Mass/Vol]114 mg/dLNINF - 130 mg/dLNODC HealthcareCLINISYNC NOMS HealthcareUS OB LIMITED 1+ FETUSESon 91-05-1738YF OB LIMITED 1+ FETUSES FINDINGS: Breech presentation. [...] Delivery: 07/05/25 Gestational Age as of 02/25/2025: 38a7rVwkzvspsvv macro (dipstick) panel (U)on 82-54-7403Obwhpxmai, UANegativeNegative - 4(70) +++ mg/dLNOMS HealthcareBlood, UANegativeNegative - 50 Cj/mcLNOMS HealthcareClarity, UAClearNOMS Healthcare Color, UAYellowNOMS HealthcareGlucose, UANegativeNegative - 2000(110) ++++ mg/dL NOMS HealthcareInterpretation and review of laboratory resultsNormalNODC HealthcareKetones, UANegativeNegative - 160(16) ++++ mg/dLNODC Healthcare Leukocytes, UANegativeNegative - 500+++ Cosmo/mcLNOMS HealthcareNitrite, UA NegativeNegative - PositiveNODC HealthcarepH, UA6.55 - 9NOMS HealthcareProtein, UANegativeNegative - 2000(20) ++++ mg/dLNOMS HealthcareSpec Grav, UA1.011 - 1.03 NOMS HealthcareUrobilinogen, UA1.00.2 - 12 mg/dLNOMS [facility] Healthcare Urinalysis macro (dipstick) panel (U)on 57-04-2076Wvwmykftt, UANegativeNegative - 4(70) +++ mg/dLNOMS HealthcareBlood, UANegativeNegative - 50 Cj/mcLNOMS HealthcareClarity, UAClearNOMS HealthcareColor, UAYellowNOMS HealthcareGlucose, UANegativeNegative - 1999(110) ++++ mg/dLNOMS HealthcareInterpretation and review of laboratory resultsAbnormalNOMS HealthcareKetones, UANegativeNegative - 160(16) ++++ mg/dLNOMS HealthcareLeukocytes, UAPositiveNegative - 500+++ Cosmo/mcLNOMS HealthcareNitrite, UANegativeNegative - PositiveNOMS HealthcarepH, UA65 - 9NOMS HealthcareProtein, UANegativeNegative - 1999(20) ++++ mg/dLNOMS HealthcareSpec Grav, UA1.0251 - 1.03NOMS HealthcareUrobilinogen, UA1.00.2 - 12 mg/dLNOMS [facility] Anne HospitalNODC HealthcareIGP,APTIMA HPV,AGE GDLNon 04-32-6632QCK GDLN ACOG TESTINGNote.[facility] HealthcareComment on above:TESTS RESULT FLAG UNITS REF RANGE LAB Clinician Provided Cytology Information Source.............Endocervix No. of containers..01 ThinPrep Vial Age Algo ACOG Marina... FLAG LEGEND: L-Low Normal,H-High Normal,LL-Alert Low,HH-Alert High <-Panic Low,>-Panic High,A-Abnormal,AA-Critical Abnormal Performed at: 01 =[facility] [place] [address] Maliha Cobb MD, IGP, RFX APTIMA HPV ASCUNote.NOMS HealthcareComment on above:TESTS RESULT FLAG UNITS REF RANGE LAB DIAGNOSIS: 02 NEGATIVE FOR INTRAEPITHELIAL LESION OR MALIGNANCY. Specimen adequacy: 02 Satisfactory for evaluation. No endocervical component is identified. Performed by: Santi Gregory, [place] Man ([facility]) . 02 Note: Note 02 [...] <-Panic Low,>-Panic High,A-Abnormal,AA-Critical Abnormal Performed at: [address] [address] Maliha Cobb MD, Performed at: = - [facility] [address] [id number] Technical Sales Manager: Maliha Cobb MD, Phone: [phone] Performed at: [facility] [address] [id number] Technical Sales Manager: Maliha Cobb MD, Phone: [phone] SPATULA-ALONE ENDOCERVIX CLINISYNCNOMS HealthcareRECURRENT VAGINITIS (HTRX)on 72-33-4643XKYGJKKLK VAGINAE 0NOMS HealthcareATOPOBIUM VAGINAENot detectedNOMS HealthcareBVAB 2,3 (BACTERIAL VAGINOSIS ASSOCIATED BACTERIA 2, 3); MOBILUNCUS SEN9PTLE HealthcareBVAB 2,3 (BACTERIAL VAGINOSIS ASSOCIATED BACTERIA 2, 3); MOBILUNCUS SPPNot detectedNOMS HealthcareCANDIDA ALBICANS, PARAPSILOSIS, VHNDHMTXXK7QGHY HealthcareCANDIDA ALBICANS, PARAPSILOSIS, TROPICALISNot detectedNOMS HealthcareCANDIDA GLABRATA0 NOMS HealthcareCANDIDA GLABRATANot detectedNOMS HealthcareCANDIDA XCKMTW1TYAD HealthcareCANDIDA KRUSEINot detectedNOMS HealthcareCHLAMYDIA XRGZPIAEPSD3QDCB HealthcareCHLAMYDIA TRACHOMATISNot detectedNOMS HealthcareGARDNERELLA VAGINALIS0 NOMS HealthcareGARDNERELLA VAGINALISNot detectedNOMS HealthcareMEGASPHAERA (TYPES 1, 2)0NOMS HealthcareMEGASPHAERA (TYPES 1, 2)Not detectedNOMS Healthcare MYCOPLASMA CNHVWCKNJU4FCWQ HealthcareMYCOPLASMA GENITALIUMNot detectedNOMS HealthcareNEISSERIA FZSPJREMYKN0CYQE HealthcareNEISSERIA GONORRHOEAENot detected NOMS HealthcareTRICHOMONAS OBYKSVDHQ7CBYK HealthcareTRICHOMONAS VAGINALISNot detectedNOMS HealthcareNOMS HealthcareUS OB 14+ [...] TRANSCRIBED BY: ELECTRONICALLY SIGNED BY: Himanshu Nogueira MDNormalNot AvailableComment on above:Order Comment: US OB ANATOMY SINGLE W US OB CERVICAL LENGTH Estimated Date of Delivery: 07/05/25 Gestational Age as of 01/14/2025: 17i5nGpkhulctwc macro (dipstick) panel (U)on 39-47-1272Omewcxmky, UANegativeNegative - 4(70) +++ mg/dLNOMS HealthcareBlood, UANegativeNegative - 50 Cj/mcLNOMS HealthcareClarity, UAClearNOMS Healthcare Color, UAYellowNOMS HealthcareGlucose, UANegativeNegative - 2000(110) ++++ mg/dL NOMS HealthcareInterpretation and review of laboratory resultsNormalNOMS HealthcareKetones, UANegativeNegative - 160(16) ++++ mg/dLNOMS Healthcare Leukocytes, UANegativeNegative - 500+++ Cosmo/mcLNOMS HealthcareNitrite, UA NegativeNegative - PositiveNOMS HealthcarepH, UA65 - 9NOMS HealthcareProtein, UA NegativeNegative - 2000(20) ++++ mg/dLNODC HealthcareSpec Grav, UA1.021 - 1.03 NOMS HealthcareUrobilinogen, UA1.00.2 - 12 mg/dLNODC HealthcareNOMS Healthcare Urinalysis macro (dipstick) panel (U)on 09-46-8755Osykzpfcy, UANegativeNegative - 4(70) +++ mg/dLNOMS HealthcareBlood, UANegativeNegative - 50 Cj/mcLNODC HealthcareClarity, UAClearNODC HealthcareColor, UAYellowNODC HealthcareGlucose, UANegativeNegative - 2000(110) ++++ mg/dLNODC HealthcareInterpretation and review of laboratory resultsAbnormalDELTA [facility] HealthcareKetones, UANegativeNegative - 160(16) ++++ mg/dLDELTA [facility]UNITY [facility] HealthcareLeukocytes, UAPositiveNegative - 500+++ Cosmo/mcLDELTA COMMUNITY [facility]ICAL [facility]ENTER HealthcareComment on above:smallNitrite, UANegativeNegative - PositiveNOMS HealthcarepH, UA5.55 - 9NOMS HealthcareProtein, UANegativeNegative - 2000(20) ++++ mg/dLNODC HealthcareSpec Grav, UA1.031 - 1.03NODC Healthcare Urobilinogen, UA0.20.2 - 12 mg/dLNOSaint John's HospitalNOMS HealthcareALL CBC WITH AUTO DIFFon 94-97-4542NHMBJWKGF ABSOLUTE AUTO0.1NOMS HealthcareBasophils/100 WBC (Bld)0.4 %0.2 - 2.0 %NOMS HealthcareEosinophils/100 WBC (Bld)0.9 %0.9 - 7.0 % [facility] HealthcareErythrocyte distribution width (RBC) [Ratio]13.4 %11.0 - 15.0 % [facility] HealthcareHematocrit (Bld) [Volume fraction]43.2 %36.0 - 48.0 %[facility] HealthHemoglobin (Bld) [Mass/Vol]15.2 g/dL12.0 - 16.0 g/dLCrittenton Behavioral Health IMMATURE GRANULOCYTES ABS AUTO0.05HighNOSaint John's HospitalImmature granulocytes/100 WBC (Bld)0.4 %0.0 - 0.5 %[facility] HealthInterpretation and review of laboratory resultsAbnormalCrittenton Behavioral HealthLYMPHOCYTES ABSOLUTE AUTO2.3[facility] Lymphocytes/100 WBC (Bld)17.1 %Low20.5 - 60.0 %[facility] Medical CenterH (RBC) [Entitic mass]29.9 pg26.7 - 34.0 pgCenterpoint Medical CenterHC (RBC) [Mass/Vol]35.2 g/dL29.9 - 35.2 g/dLCenterpoint Medical CenterV (RBC) [Entitic vol]85 fL81.0 - 99.0 fLCrittenton Behavioral HealthMONOCYTES ABSOLUTE AUTO0.7[facility] HealthMonocytes/100 WBC (Bld)5.5 % 1.7 - 12.0 %[facility] HealthNEUTROPHILS ABSOLUTE AUTO10.3HighCrittenton Behavioral Health Neutrophils/100 WBC (Bld)75.7 %High43.0 - 75.0 %[facility] HealthPlatelet mean volume (Bld) [Entitic vol]11.8 fL9.5 - 13.5 fLCrittenton Behavioral HealthTB EO #0.1NOMS [facility] PDT374PCUVEllett Memorial Hospital RBC5.08NOEllett Memorial Hospital WBC13.6HighCrittenton Behavioral HealthCLINISYNCNSaint Francis Medical CenterHCG ( test) Ql (U)on 12-05-2024 Interpretation and review of laboratory resultsAbnoLifecare Hospital of Chester CountyPreg Test, UrPositiveNegativeECU Health Medical CenterUS OB TRANSVAGINALon 12-05-2024 US OB TRANSVAGINALEXAM: US [...] II, MD, PHD at 06-Dec-2024 08:41:12 AM [facility] TeleradiologyNormalNot AvailableComment on above:Order Comment: US OB TRANSVAGINAL No LMP recorded.Urinalysis macro (dipstick) panel (U)on 14-34-5541Dkmowbyfu, UA NegativeNegative - 4(70) +++ mg/dLNOMS HealthcareBlood, UANegativeNegative - 50 Cj/City HospitalNODC HealthcareClarity, UAClearNODC HealthcareColor, UAYellowNODC HealthcareGlucose, UANegativeNegative - 2000(110) ++++ mg/dLNODC Healthcare Interpretation and review of laboratory resultsAbnormalNODC HealthcareKetones, UANegativeNegative - 160(16) ++++ mg/dLNODC HealthcareLeukocytes, UAPositive Negative - 500+++ Cosmo/City HospitalNODC HealthcareNitrite, UANegativeNegative - Positive NOMS HealthcarepH, UA75 - 9NOMS HealthcareProtein, UAPositiveNegative - 2000(20) ++++ mg/dLNOMS HealthcareSpec Grav, UA1.021 - 1.03NOMS HealthcareUrobilinogen, UA1.00.2 - 12 mg/dLNODC HealthcareNOMS HealthcareCORTISOL 24HR URINEon 26-44-5423Indenqjg,F,ug/24hr,U26 ug/24 hrNormal6-42[facility] Southeast OhioComment on above:Performed By: #### CORT24 #### [facility] [address] [address] [address] Lucretia ZamudioCortisol,F,ug/L,U10 ug/LNormalUndefinedThe [facility] Comment on above:Performed By: #### CORT24 #### [facility] [address] [address] [address] Lucretia ZamudioCT ABDOMEN WO/W CONon 91-80-5192CY ABDOMEN WO/W CONCLINICAL HISTORY: Blood chemistry abnormal. [...] Electronically authenticated by: YOVANY CLARK Date: 2022-08-27 08:37[facility] SERUMon 84-81-3383Rlyaehrmkdrrwshdhsotlu (DHEA)1255 ng/dL Critically spen60-321Dni [facility] HospitalComment on above:Result Comment: Age 1 - 5 years 0 - 67 6 - 7 years 0 - 110 8 - 10 years 0 - 185 11 - 12 years 0 - 201 13 - 14 years 0 - 318 15 - 16 years 39 - 481 17 - 19 years 40 - 491 >19 years 31 - 701Performed By: #### DHEA. #### [facility] [address] [place] [address] Dr. Lucretia ZamudioTESTOSTERONE, FREE,DIRECT, TOTALon 10-45-0098Nfsv Testosterone(Direct)2.8 pg/mLNormal0.0-4.2[facility] Southeast OhioComment on above: Result Comment: Performed at: BNPerformed By: #### TESTFRD #### [facility] [address] [place] [address] Dr. Lucretia ZamudioTestosterone [Mass/Vol]42 ng/sKOzmbis12-47Osr [facility] Comment on above:Result Comment: Performed at: CBPerformed By: #### TESTFRD #### [facility] [address] [place] [address] Dr. Lucretia ZamudioCORTISOL Shiv 70-42-1175Loncfpqn AM23.4 ug/dLCritically high 6.2-19.4The [facility] HospitalComment on above:Performed By: #### PROGES #### [facility] [address] [place] [address] Dr. Lucretia ZamudioDHEA-SULFATEon 72-14-5550KYOX-Vctdmzz457.0 ug/mFSqtyyk49.8-378.0 The [facility] HospitalComment on above:Performed By: #### LBCLH #### [facility] [address] [place] [address] Dr. Lucretia VergaraTRADIOLon 08-67-6465Otnjrgfrw506.0 pg/mLNormalThe [facility] HospitalComment on above:Result Comment: Adult Female: Follicular phase 12.5 - 166.0 Ovulation phase 85.8 - 498.0 Luteal phase 43.8 - 211.0 Postmenopausal <6.0 - 54.7 1st trimester 215.0 - >4300.0 Dona ECLIA methodologyPerformed By: #### ESTRADI #### [facility] [address] [place] [address] Dr. Lucretia TanHon 10-38-9312JXP1.0 mIU/mLNormalSelect Medical Specialty Hospital - Southeast OhioComment on above:Result Comment: Adult Female: Follicular phase 3.5 - 12.5 Ovulation phase 4.7 - 21.5 Luteal phase 1.7 - 7.7 Postmenopausal 25.8 - 134.8Performed By: #### LBCFSH #### [facility] [address] [place] [address] Dr. Lucretia ZamudioLUTEINIZING HORMONE (LH)on 29-48-4922MS9.7 mIU/mLNHolzer Health SystemComment on above:Result Comment: Adult Female: Follicular phase 2.4 - 12.6 Ovulation phase 14.0 - 95.6 Luteal phase 1.0 - 11.4 Postmenopausal 7.7 - 58.5Performed By: #### LBCLH #### [facility] [address] [place] [address] Dr. Lucretia ZamudioPROGESTERONEon 15-48-0476Zeldjptziiuj1.2 ng/mLNHolzer Health SystemComment on above:Result Comment: Follicular phase 0.1 - 0.9 Luteal phase 1.8 - 23.9 Ovulation phase 0.1 - 12.0 First trimester 11.0 - 44.3 Second trimester 25.4 - 83.3 Third trimester 58.7 - 214.0 Postmenopausal 0.0 - 0.1Performed By: #### PROGES #### [facility] [address] [place] [address] Dr. Lucretia ZamudioFREE T4on 38-73-1650Dzxx T4 [Mass/Vol]1.13 ng/dLNormal0.76-1.46 [facility] OhioComment on above:Performed By: #### FT4 #### [facility] [address] [place] [address] Dr. Lucretia ZamudioGLYCOHEMOGLOBIN A1Con 27-73-0974AOK RECOMMENDATIONSEE BELOWNormal [facility] OhioComment on above:Result Comment: ADA RECOMMENDED LIMIT 4.0 - 6.0 ADA THERAPEUTIC TARGET < 7.0 ACTION SUGGESTED > 7.0Performed By: #### PROGES #### [facility] [address] [place] [address] Dr. Lucretia ZamudioGlucose [Mass/Vol]105 mg/dLNormalThKettering Health – Soin Medical CenterComment on above:Performed By: #### PROGES #### [facility] [address] [place] [address] Dr. Lucretia ZamudioHbA1c (Bld) [Mass fraction]5.3 %Normal4.5-6.2The [facility] Cleveland-Fairhillment on above:Performed By: #### PROGES #### [facility] [address] [place] [address] Dr. Lucretia ZamudioTSHon 39-52-9939HGX5.971 uIU/mLNormal0.358-3.740The [facility] HospitalComment on above:Performed By: #### TSH #### [facility] [address] [place] [address] Dr. Lucretia ZamudioUS PELVIS AND TRANSVAGon 43-16-7448YG PELVIS AND TRANSVAG EXAMINATION: US PELVIS AND [...] Electronically authenticated by: GIA PRESCOTT Date: 2022-08-02 18:42NormalThe [facility] HospitalAMYLASEon 54-38-2485Ebmwvno [Catalytic activity/Vol]50 U/L Ropmnn56-913Byj [facility] on above:Performed By: #### PROGES #### [facility] [address] [place] [address] Dr. Lucretia ZamudioCBC AUTO DIFFon 03-88-0079CJPO #0.1 103/ulNormal0.0-0.1The [facility] on above:Performed By: #### CBC #### [facility] [address] [address] [address] Lucretia ZamudioBasophils/100 WBC (Bld)0.9 %Normal0.2-2.0[facility] Comment on above:Performed By: #### CBC #### [facility] [address] [place] [address] Dr. Lucretia Lynne #0.4 103/ulNormal0.0-0.7The [facility] HospitalComment on above: Performed By: #### CBC #### [facility] [address] [place] [address] Dr. Lucreita Huntosinophils/100 WBC (Bld)3.4 %Normal0.9-7.0[facility] Comment on above:Performed By: #### CBC #### [facility] [address] [place] [address] Dr. Lucretia Huntrythrocyte distribution width (RBC) [Ratio]12.7 %Dtibyh48.0-15.0 The [facility] HospitalComment on above:Performed By: #### CBC #### [facility] [address] [place] [address] Dr. Lucretia ZamudioHematocrit (Bld) [Volume fraction]44.1 %Yjrrxr16.0-48.0The [facility] HospitalComment on above:Performed By: #### CBC #### [facility] [address] [place] [address] Dr. Lucretia ZamudioHemoglobin (Bld) [Mass/Vol]14.5 g/rCSigkhq61.0-16.0The [facility] HospitalComment on above:Performed By: #### CBC #### [facility] [address] [place] [address] Dr. Lucretia Gomez #0.03 10e3/ulNormal0.00-0.03The [facility] HospitalComment on above:Performed By: #### CBC #### [facility] [address] [place] [address] Dr. Lucretia Gomez %0.3 %Normal0.0-0.5The [facility] HospitalComment on above: Performed By: #### CBC #### [facility] [address] [address] [address] Lucretia Brush #2.9 103/ulNormal1.2-3.8The [facility] HospitalComment on above:Performed By: #### CBC #### [facility] [address] [address] [address] Lucretia Worthingtonmphocytes/100 WBC (Bld)24.9 %Eqlnxe06.5-60.0The [facility] HospitalComment on above:Performed By: #### CBC #### [facility] [address] [place] [address] Dr. Lucretia Krishnan DIFF REQNONormalThe [facility] HospitalComment on above: Performed By: #### CBC #### [facility] [address] [place] [address] Dr. Lucretia Simmons (RBC) [Entitic mass]28.9 arZfxakc97.7-34.0The [facility] HospitalComment on above:Performed By: #### CBC #### [facility] [address] [place] [address] Dr. Lucretia Simmons (RBC) [Mass/Vol]32.9 g/gGDsxtdf38.9-35.2The [facility] HospitalComment on above:Performed By: #### CBC #### [facility] [address] [place] [address] Dr. Lucretia Simmons (RBC) [Entitic vol]87.8 mDFehbag52.0-99.0The [facility] HospitalComment on above:Performed By: #### CBC #### [facility] [address] [place] [address] Dr. Lucretia Lemus #0.6 103/ulNormal0.3-0.8The [facility] HospitalComment on above:Performed By: #### CBC #### [facility] [address] [place] [address] Dr. Lucretia Manzoocytes/100 WBC (Bld)5.4 %Normal1.7-12.0The [facility] Comment on above:Performed By: #### CBC #### [facility] [address] [address] [address] Lucretia Waterman #7.6 103/ulCritically high1.4-6.5The [facility] Comment on above:Performed By: #### CBC #### [facility] [address] [place] [address] Dr. Lucretia Wagnerutrophils/100 WBC (Bld)65.1 %Kgqevx47.0-75.0The [facility] HospitalComment on above:Performed By: #### CBC #### [facility] [address] [place] [address] Dr. Lucretia ZamudioPlatelet mean volume (Bld) [Entitic vol]10.0 fLNormal9.5-13.5The [facility] HospitalComment on above:Performed By: #### CBC #### [facility] [address] [place] [address] Dr. Lucretia ZamudioPLT277 103/pjJzspyl795-632Gxl [facility] HospitalComment on above: Performed By: #### CBC #### [facility] [address] [place] [address] Dr. Lucretia ZamudioRBC5.02 106/ulNormal4.20-5.40The [facility] HospitalComment on above:Performed By: #### CBC #### [facility] [address] [place] [address] Dr. Lucretia ZamudioWBC11.6 103/ulCritically high4.0-11.0The [facility] HospitalComment on above:Performed By: #### CBC #### [facility] [address] [place] [address] Dr. Lucretia ZamudioCULTZA URINEon 12-88-8820RJNFMXU URINECulture Observations: LIGHT GROWTH OF MIXED GENITAL SILVIA. NO POTENTIAL PATHOGENS SEEN.NormalThe [facility] HospitalComment on above:Performed By: #### PROGES #### [facility] [address] [place] [address] Dr. Lucretia ZamudioLIPASEon 46-84-6394Uentka [Catalytic activity/Vol]85.0 U/LNormal 73.0-393.0The [facility] HospitalComment on above:Performed By: #### PROGES #### [facility] [address] [place] [address] Dr. Lucretia Shoemaker QUANT HCGon 16-93-5465FOE QUANT1 mIU/mLNormalThe [facility] HospitalComment on above:Performed By: #### PROGES #### [facility] [address] [place] [address] Dr. Lucretia Leyva RANGESEE Wilson HealthComment on above: Result Comment: 5-50 0.2-1 WEEK 50-500 1-2 WEEKS 100-5,000 2-3 WEEKS 500-10,000 3-4 WEEKS 1,000-50,000 4-5 WEEKS 10,000-100,000 5-6 WEEKS 15,000-200,000 6-8 WEEKS 10,000-100,000 2-3 MONTHSPerformed By: #### PROGES #### [facility] [address] [place] [address] Dr. Lucretia ZamudioPROF 14(COMP METB)on 79-43-0782Ksoszqb [Mass/Vol]4.0 g/dLNormal 3.4-5.0The [facility] on above:Performed By: #### PROGES #### [facility] [address] [place] [address] Dr. Lucretia ZamudioAlbumin/Globulin [Mass ratio]1.1 {ratio}NormalThe [facility] on above:Performed By: #### PROGES #### [facility] [address] [place] [address] Dr. Lucretia Brunson [Catalytic activity/Vol]98 U/TOlwduw64-940Laa [facility] HospitalComascension [facility] on above:Performed By: #### PROGES #### [facility] [address] [place] [address] Dr. Lucretia Mauro [Catalytic activity/Vol]16 U/GPctmre26-81Lte [facility] on above:Performed By: #### PROGES #### [facility] [address] [place], [place] [address] Dr. Lucretia Whyte gap [Moles/Vol]9.7 mmol/LNormalThe [facility] HospitalComment on above:Performed By: #### PROGES #### [facility] [address] [address] [address] Lucretia ZamudioAST [Catalytic activity/Vol]15 U/FCqdlbu82-24Tzy [facility] HospitalComment on above:Performed By: #### PROGES #### [facility] [address] [address] [address] Lucretia ZamudioBilirubin [Mass/Vol]0.2 mg/dLNormal0.2-1.0The [facility] Comment on above:Performed By: #### PROGES #### [facility] [address] [place] [address] Dr. Lucretia ZamudioCalcium [Mass/Vol]9.5 mg/dLNormal8.5-10.1The [facility] Comment on above:Performed By: #### PROGES #### [facility] [address] [place] [address] Dr. Lucretia ZamudioChloride [Moles/Vol]102 mmol/NPsepoy13-404Sug [facility] Comment on above:Performed By: #### PROGES #### [facility] [address] [place] [address] Dr. Lucretia ZamudioCO2 [Moles/Vol]31.5 mmol/HYcdtqu57.0-32.0The [facility] Comment on above:Performed By: #### PROGES #### [facility] [address] [address] [address] Lucretia ZamudioCreatinine [Mass/Vol]0.79 mg/dLNormal0.55-1.02The [facility] HospitalComment on above:Performed By: #### PROGES #### [facility] [address] [address] [address] Lucretia Foster-AF EMIRATI>60Normal>=60The [facility] HospitalComment on above:Performed By: #### PROGES #### [facility] [address] [place] [address] Dr. Lucretia HuntGFR-NON AF EMIRATI>60Normal>=60The [facility] HospitalComment on above:Performed By: #### PROGES #### [facility] [address] [place] [address] Dr. Lucretia ZamudioGlobulin (S) [Mass/Vol]3.8 g/dLNormPremier HealthComment on above:Performed By: #### PROGES #### [facility] [address] [place] [address] Dr. Lucretia ZamudioGlucose [Mass/Vol]95 mg/cSNnorma70-174Iqj [facility] Comment on above:Performed By: #### PROGES #### [facility] [address] [place] [address] Dr. Lucretia ZamudioPotassium [Moles/Vol]4.2 mmol/LNormal3.5-5.1The [facility] Comment on above:Performed By: #### PROGES #### [facility] [address] [place] [address] Dr. Lucretia ZamudioProtein [Mass/Vol]7.8 g/dLNormal6.4-8.2The [facility] Comment on above:Performed By: #### PROGES #### [facility] [address] [place] [address] Dr. Lucretia ZamudioSodium [Moles/Vol]139 mmol/YRgfpub342-886PzjSelect [facility] [place] Comment on above:Performed By: #### PROGES #### [facility] [address] [place] [address] Dr. Lucretia ZamudioUrea nitrogen [Mass/Vol]12.0 mg/dLNormal7.0-18.0The [facility] HospitalComment on above:Performed By: #### PROGES #### [facility] [address] [place] [address] Dr. Lucretia Gibbs nitrogen/Creatinine [Mass ratio]15.2 mg/mgNormPremier HealthComment on above:Performed By: #### PROGES #### [facility] [address] [place] [address] Dr. Lucretia Pollack RANDOMon 62-28-8173Xflfqvrlw Ql (U)NegativeNormalNEGATIVESelect Medical Specialty Hospital - Southeast OhioComment on above:Performed By: #### PROGES #### [facility] [address] [address] [address] Lucretia Salesarity (U)CLEARNormalCLEARSelect Medical Specialty Hospital - Southeast OhioComment on above: Performed By: #### PROGES #### [facility] [address] [address] [address] Lucretia Cruz (U)LT. YELLOWNormalYELLOWSelect Medical Specialty Hospital - Southeast OhioComment on above:Performed By: #### PROGES #### [facility] [address] [address] [address] Lucretia ZamudioGlucose Ql (U)NegativeNormalNEGATIVESelect Medical Specialty Hospital - Southeast OhioComment on above:Performed By: #### PROGES #### [facility] [address] [place] [address] Dr. Lucretia ZamudioHemoglobin Ql (U)NegativeNormalNEGATIVERegional Medical Center on above:Performed By: #### PROGES #### [facility] [address] [place] [address] Dr. Lucretia ZamudioKetones Ql (U)NegativeNormalNEGATIVESelect Medical Specialty Hospital - Southeast OhioComment on above:Performed By: #### PROGES #### [facility] [address] [place] [address] Dr. Lucretia ZamudioLEUKOCYTESNegativeNormalNEGATIVESelect Medical Specialty Hospital - Southeast OhioComment on above:Performed By: #### PROGES #### [facility] [address] [address] [address] Lucretia ZamudioNitrite Ql (U)NegativeNormalNEGATIVESelect Medical Specialty Hospital - Southeast OhioComment on above:Performed By: #### PROGES #### [facility] [address] [address] [address] Lucretia ZamudiopH (U)7.0 [pH]Normal5-9[facility] OhioComment on above: Performed By: #### PROGES #### [facility] [address] [address] [address] Lucretia ZamudioSPEC GRAVITY1.539Hgwxja8.005-<=1.025The [facility] HospitalComment on above:Performed By: #### PROGES #### [facility] [address] [address] [address] Lucretia Pollack PROTEINNegativeNormalNEGATIVE/ TRACEThe [facility] Comment on above:Performed By: #### PROGES #### [facility] [address] [address] [address] Lucrteia Davidbilinogen Qn (U)0.2 {Tommie'U}/dLNormal0.2 - 1.0The [facility] HospitalComment on above:Performed By: #### PROGES #### [facility] [address] [address] [address] Lucretia ZamudioPhysical Therapy Noteon 10-44-9406Ghnemogi Therapy Note [id number]#1.00[facility] Coding Summaryon 52-00-2583Ynjsjs SummaryHTMLBase 64 DdqxivagIQh3yAb+PGhlYWQ+GF3QZHPgM95xaTNziD1FZ8uKES7GYDYOYRWXJI6AYG7syRG7NWjcR5Jz biAv [file] PSd (more content not included)...[facility] HospitalProvider Orderson 35-87-7150Jlburlsc [id number]#1.00OTSumma Health Barberton CampusConsent Formson 66-02-0017Kfhrrmz Forms [id number]#1.00[facility] Physical Therapy Noteon 54-57-6556Qbtgsmxj Therapy Note [id number]#1.00[facility] Provider Orderson 90-41-8491Vybafyxt Orders [id number]#1.00[facility] Coding Summaryon 37-11-2099Alopzb SummaryHTMLBase 64 GgdqrnmoEXz2wIq+PGhlYWQ+ZO2FBQHdH04ucRJbyY1JK7pNXF3HLVDWTFVFYJ0BLP5aqQZ8GVorJ6Jo biAv [file] PSd (more content not included)...[facility] HospitalRad - MRI Reporton 16-19-3235Ikc - MRI [id number]#1.00OTGTIFF [facility] Vital Signs Date TimeVital SignValuePerforming BdebsqojiQgmmxqcs87-79-0262 13:19-0400Body mass index (BMI) [Ratio]34.36 kg/i2Vpuzc Angel DO Work Phone: 1(784)558-[address] [place], [place] [address]Jlebudnbzi69-62-8244 13:19-0400Body .51 kgCorey Angel DO Work Phone: 1(644)740-[address] [place], [place] [address]Ytngthapih71-90-8574 13:19-0400Diastolic blood dphxjchy83 mm[Hg]Junito Angel DO Work Phone: 1(750)[address] [place], [place] [address]Lpklywczhy83-25-3619 13:19-0400Systolic blood ladonzaf459 mm[Hg]Junito Angel DO Work Phone: 0(181)099-[address] [place], [place] [address]Ckbknqdvoe90-73-6585 14:29-0400Body mass index (BMI) [Ratio]33.15 kg/w6Ckdoj Angel DO Work Phone: [phone])[address] [place], [place] [address]Yeswnsmswx82-69-4925 14:29-0400Body dqyhmd72.88 kgCorey Angel DO Work Phone: 1(768)752[facility] HealthGtairypwxs05-62-3004 14:29-0400Diastolic blood smayzhty83 mm[Hg]Junito Angel DO Work Phone: [phone] [place], [place] [address]Hpjijbtipd60-94-5246 14:29-0400Systolic blood mm[Hg]Junito Angel DO Work Phone: 1([phone])932-[facility] HealthCrittenton Behavioral HealthLwqtrtakcc29-41-3023 10:06-0400Body mass index (BMI) [Ratio]31.75 kg/f5VetehseyInna Kirkland FIRST RESPONDER Work Phone: 1(508)134-[address] [place], [place] [address]Xoryhopycr60-93-9316 10:06-0400Body iuhczp61.71 kgInna Kirkland FIRST RESPONDER Work Phone: 1(120)855-[address] [place], [place] [address]Bxpcjvipll57-38-1086 10:06-0400Diastolic blood pmnlyeao85 mm[Hg]Inna Kirkland FIRST RESPONDER Work Phone: 1(185)337-[address] [place], [place] [address]Coucdxmrap38-98-7437 10:06-0400Systolic blood mm[Hg]Inna Kirkland FIRST RESPONDER Work Phone: 1(671)[facility] [place], [place] [address]Rzhxbrhbfc40-73-4871 14:59-0400Body mass index (BMI) [Ratio]30.99 kg/t9Xtwhs Angel DO Work Phone: 1(264)[facility] [place], [place] [address]Pmaltuioud18-27-4379 14:59-0400Body sycznc16.44 kgCorey Angel DO Work Phone: 1(670)[facility] [place], [place] [address]Scvpcwvwka98-07-1504 14:59-0400Diastolic blood wksbpfyp10 mm[Hg]Junito Angel DO Work Phone: 1(651)[facility] [place], [place] [address]Lgdvhlxxlp82-08-9896 14:59-0400Systolic blood spdwyucc878 mm[Hg]Junito Angel DO Work Phone: 1(895)[address] [place], [place] 1554506-25-2025 13:39-0400Body mass index (BMI) [Ratio]29.73 kg/d9Csefj Angel DO Work Phone: 1(266)[address] [place], [place] 1554506-25-2025 13:39-0400Body skplyi70.68 kgCorey Angel DO Work Phone: 1(484)[facility] [place], [place] [address]Eshxmxaerp17-40-7708 13:39-0400Diastolic blood ymvmpfgn94 mm[Hg]Junito Angel DO Work Phone: 1(961)[facility] [place], [place] [address]Pmaegyrbur39-38-2403 13:39-0400Systolic blood cxesqwhb763 mm[Hg]Junito Angel DO Work Phone: 1(241)[address] [place], [place] 1554507-02-2024 12:30-0400Body .45 cmAPRYamilka Crocketterwhit Work Phone: 1(863)[address] [place], [place] 2962807-02-2024 12:30-0400 Body mass index (BMI) [Ratio]31.6 kg/m2YANELI Crocketterwhit Work Phone: 1(778)[address] [place], [place] 2962807-02-2024 12:30-0400 Body jokbgsyaugy21.8 [degF]YANELI Crocketterwhit Work Phone: 1(800)[address] [place], [place] 2962807-02-2024 12:30-0400 Body goryom43.98 kgYANELI Ding Work Phone: 1(892)[address] [place], [place] 2962807-02-2024 12:30-0400 Diastolic blood pbatnwuj52 mm[Hg]YANELI Crocketterwhit Work Phone: 1(553)[address] [place], [place] 2962807-02-2024 12:30-0400 Heart rate69 /minYANELI Crocketterwhit Work Phone: 1(259)[address] [place], [place] 2962807-02-2024 12:30-0400 Respiratory rate20 /minYANELI Crocketterwhit Work Phone: 1(160)[address] [place], [place] 2962807-02-2024 12:30-0400 SaO2% (BldA) [Mass fraction]99 %YANELI Crocketterwhit Work Phone: 1(520)[address] [place], [place] 2962807-02-2024 12:30-0400 Systolic blood byhwxuce326 mm[Hg]YANELI Crocketterwhit Work Phone: 1(192)[address] [place], [place] 2962806-05-2024 08:58-0400 Body eryful617.45 cm[facility] 08:58-0400Body mass index (BMI) [Ratio]31.6 kg/t1MeghjmagjEast [facility]06-05-2024 08:58-0400Body sbddyt13.98 kgEast [facility]03-27-2024 11:00-0400Body sfaues836.45 cm[facility]03-27-2024 11:00-0400Body mass index (BMI) [Ratio]31.6 kg/s1EriafympiEast [facility] Hospital03-27-2024 11:00-0400Body uxkhgiwretl71 [degF][facility]03-27-2024 11:00-0400Body qzkumd84.98 kg[facility] 09-19-2023 11:00-0400Diastolic blood urwjiimc97 mm[Hg][facility]03-27-2024 11:00-0400Heart rate80 /[facility] 09-19-2023 11:00-0400Respiratory rate20 /[facility] 09-19-2023 11:00-0152OsZ4% (BldA) [Mass fraction]98 %[facility]03-27-2024 11:00-0400Systolic blood ocgmmpjt896 mm[Hg][facility]03-13-2024 09:42-0400Body tobbfq214.7 Serg DUONGC Work Phone: [facility] Adxedy10-21-2791 09:42-0400Body mass index (BMI) [Ratio]30.79 kg/n3SeevsksTy CRISTINA-C Work Phone: [facility] Xbbtkd88-29-8562 09:42-0400Body jzrupz51.85 kgTy CRISTINA-C Work Phone: [facility] Fvteol02-22-4393 09:42-0400Diastolic blood vbzoesox14 mm[Hg]Ty CRISTINA-C Work Phone: [facility] Wjlmux91-05-3815 09:42-0400Heart rate 73 /minTy CRISTINA-C Work Phone: [facility] [place] Xkgeif44-37-0066 09:42-0400Systolic blood kztpyuyt861 mm[Hg]Ty CRISTINA-C Work Phone: [facility] Flkoxo88-38-9913 17:00-0500Body lbznpe225.45 cmDana Easterwood Other [employer] Other 12-06-2023 08:00-0500Body caikmg114.45 cmDana Easterwood Other [employer] Other 12-06-2023 08:00-0500Body mass index (BMI) [Ratio] 33.48 kg/m2Dana Bonerkite Other [employer] Other 12-06-2023 08:00-0500Body gzqlxnjwnky08.2 [degF]Nelida Bonerwood Other [employer] Other 12-06-2023 08:00-0500Body .43 kgDana Bonwhit Other [employer] Other 12-06-2023 08:00-0500Diastolic blood qnkqsonn11 mm[Hg] Nelida Easterwood Other [employer] Other 12-06-2023 08:00-0500Respiratory rate20 /minDana Easterwood Other [employer] Other 12-06-2023 08:00-6774IlK1% (BldA) [Mass fraction]99 % Nelida Easterwood Other [employer] Other 12-06-2023 08:00-0500Systolic blood hyypejwl734 mm[Hg] Nelida Easterwood Other [employer] Other 09-11-2023 10:30-0400Body ufagfi921.45 cmDana Bonerwhit Other [employer] Other 09-11-2023 10:30-0400Body mass index (BMI) [Ratio] 33.33 kg/m2Dana Easterwood Other [employer] Other 09-11-2023 10:30-0400Body hlqlqhnikxc41 [degF]Nelida Easterwood Other [employer] Other 09-11-2023 10:30-0400Body .98 kgDana Easterwood Other [employer] Other 09-11-2023 10:30-0400Diastolic blood rkdxamyv52 mm[Hg] Nelida Easterwood Other [employer] Other 09-11-2023 10:30-0400Respiratory rate20 /minDana [facility] Other [employer] Other 09-11-2023 10:30-7979UlQ1% (BldA) [Mass fraction]99 % Nelida Easterwood Other [employer] Other 09-11-2023 10:30-0400Systolic blood zewopbyl140 mm[Hg] Nelida Easterwood Other [employer] Other 08-30-2023 11:00-0400Body eahdou545.45 cmDana Easterwood Other [employer] Other 08-30-2023 11:00-0400Body mass index (BMI) [Ratio] 33.48 kg/m2Dana Easterwood Other [employer] Other 08-30-2023 11:00-0400Body agqvmdwbgpo65.9 [degF]Nelida Ding Other [employer] Other 08-30-2023 11:00-0400Body yaygca27.43 kgDamanisha Ding Other [employer] Other 08-30-2023 11:00-0400Diastolic blood vkpjoypi94 mm[Hg] Nelida Ding Other [employer] Other 08-30-2023 11:00-0400Respiratory rate20 /minDjeromy Ding Other [employer] Other 08-30-2023 11:00-1224VjO4% (BldA) [Mass fraction]98 % Nelida Ding Other [employer] Other 08-30-2023 11:00-0400Systolic blood sqttchem425 mm[Hg] Nelida Ding Other [employer] Other Encounters Encounter DateEncounter TypeCare ProviderFacilityStart: 30-21-7514njcvawfxee Inna EbivanlyFacility:[facility]tart: 04-29-2025 End: 09-25-9926Npotfkru flow sheetCorey Angel DO Work Phone: NOMS Douglas OBGYNComment on above:Third trimester ([facility]); 30 weeks gestation of ([facility])Start: 04-29-2025 End: 63-83-9480wowwgsjvykNSGCB FAZIONot AvailableStart: 04-22-2025 End: 83-74-7305Kcrtbhiqk Result EncounterCorey Angel DO Work Phone: NORQ External Department UnsolicitedStart: 04-22-2025 End: 84-55-9322Lvvyfsngq Result EncounterCorey Angel DO Work Phone: noms External Department UnsolicitedStart: 04-15-2025 End: 02-61-4442Jjyknc flowsheetCorey Angel DO Work Phone: NOFZ Douglas OBGYNStart: 04-15-2025 End: 32-75-7665Sdauwc flowsheetCorey Angel DO Work Phone: NOAS Douglas OBGYNStart: 04-15-2025 End: 79-78-8261Podknppy flow sheetCorey Angel DO Work Phone: NOIG Douglas OBGYNComment on above:Third trimester ([facility]); 28 weeks gestation of ([facility]); size inconsistent with dates ([facility]); Racing heart beatStart: 04-15-2025 End: 73-06-8125wzujeontwuCPYDM FAZIONot AvailableStart: 04-01-2025 End: 56-16-0721Urienamvy Result EncounterInna Kirkland NP Work Phone: NOIG External Department UnsolicitedStart: 04-01-2025 End: 32-09-3825Fuwpzthrf Result EncounterInna Kirkland NP Work Phone: noms External Department UnsolicitedStart: 03-18-2025 End: 00-10-7901Mzaturfu flow sheetCorey Angel DO Work Phone: NOMS Osiel OBGYNComment on above:Second trimester ([facility]); 24 weeks gestation of ([facility]); Diabetes mellitus screeningStart: 03-18-2025 End: 37-17-7270gocgsvrcqbQEAQJ FAZIONot AvailableStart: 02-18-2025 End: 35-84-9431Awjkgged flow sheetInna Kirkland NP Work Phone: NOMS Osiel OBGYNComment on above:Nausea and vomiting in ([facility]) (Primary Dx); Second trimester ([facility]); 20 weeks gestation of ([facility]); Elevated heart rate with elevated blood pressure without diagnosis of hypertensionStart: 02-18-2025 End: 25-44-1354zjfvaolasnTMHQWJKI EBERLYNot AvailableStart: 02-18-2025 End: 38-76-7661nskagcbhhdHPZLR FAZIONot AvailableStart: 01-14-2025 End: 09-83-6529Omwooho encounter procedureCorey Angel DO Work Phone: noms HealthcareStart: 01-14-2025 End: 60-83-2386Yagyocqm preventive med est patient 18-39 yrsCorey Angel DO Work Phone: noms [facility] OBComment on above:15 weeks gestation of ([facility]); Second trimester ([facility]); Gastroesophageal reflux disease with esophagitis, unspecified whether hemorrhage; Screening, , for anatomic survey ([facility]); Exposure to STD; Vaginal discharge; Well woman exam with routine gynecological exam; Nausea and vomiting in ([facility]); related fatigue in second trimester ([facility]); Insomnia, unspecified type; Other migraine with status migrainosus, not intractableStart: 01-14-2025 End: 03-39-8673jlezjqtrpdWSNWX FAZIONot AvailableStart: 01-14-2025 End: 05-07-0862Fqezej flowsheetCorey Angel DO Work Phone: noms BCP OBStart: 01-14-2025 End: 67-68-5413Pybkiu flowsheetCorey Angel DO Work Phone: noms BCP OBStart: 01-14-2025 End: 72-35-3774Gvfyzxuzo Result EncounterCorey Angel DO Work Phone: noms External Department UnsolicitedStart: 01-14-2025 End: 15-07-0723Ilvspdjf Result EncounterCorey Angel DO Work Phone: noms External Department UnsolicitedStart: 12-17-2024 End: 82-13-0959Aopuga flowsheetCorey Agnel DO Work Phone: NOMS BCP OBStart: 12-17-2024 End: 91-87-4996Jgbovf flowsheetCorey Angel DO Work Phone: NOMS BCP OBStart: 12-17-2024 End: 73-67-6766Rtmfyoyn flow sheetCorey Angel DO Work Phone: noMS BCP OBComment on above:11 weeks gestation of ([facility]); First trimester ([facility]); Nausea and vomiting in ([facility]); Gastroesophageal reflux disease with esophagitis, unspecified whether hemorrhage; Meconium aspiration in child of prior , currently , unspecified trimester ([facility])Start: 12-17-2024 End: 13-98-3270evkdtwdbaoSGDVE FAZIONot AvailableStart: 12-10-2024 End: 28-35-9937Rchscyezj Result EncounterCorey Angel DO Work Phone: noms External Department UnsolicitedStart: 12-10-2024 End: 66-05-5681Zvcxqlbib Result EncounterCorey Angel DO Work Phone: noMS External Department UnsolicitedStart: 12-05-2024 End: 05-26-9174Zfakaa outpatient visit 5 minutesNoms Bcp Ob Angel NurseNOMS BCP OBComment on above:GA: 9t9mGnyuj: 12-05-2024 End: 98-71-4660uexocwrzwoXQVQK FAZIONot AvailableStart: 07-03-2024 End: 84-77-2711AbcepwTkvdupoYamilex Stratton PA-C Work Phone: [facility] NeurologyComment on above: Migraine without aura and without status migrainosus, not intractableStart: 12-25-2023 End: 45-62-3953dafeanrxghBDQA [facility] Work Phone: [facility] Work Phone: Start: 12-25-2023 End: 95-69-8613Vsupvpj encounter procedureAPRYamilka [facility] Work Phone: [facility] Work Phone: Start: 53-31-3715Fzc-patient / Non-visitYANELI [facility] Work Phone: [facility] Work Phone: Start: 12-05-2023 End: 95-36-3289ptiwyfhcanEXJE Dana J [facility] Work Phone: [facility] Work Phone: Start: 12-05-2023 End: 09-80-5233Dysclnbj ReferredYANELI Mendoza [facility] Work Phone: [facility]-LAB Path Spec Osiel HospStart: 11-28-2023 End: 76-64-6104ohomztexvyNnrujpsehAultman Hospital Work Phone: Start: 11-28-2023 End: 96-83-5225Axfjtzn encounter procedureAt[facility] Work Phone: Start: 09-19-2023 End: 44-68-3722ixwowkgoiwTmepxtgvgAultman Hospital Work Phone: Start: 09-19-2023 End: 34-15-5083Wxgynjm encounter procedureAtrium Health [facility] GroupCollege [facility] Work Phone: Start: 09-05-2023 End: 31-42-1368baewsbnpxiDALESGW C HAMILTONACMC Healthcare System Glenbeighgay [facility] Hospitaltart: 09-05-2023 End: 81-15-9142Svnjrz outpatient visit 25 minutesAnthaleksey Stratton PA-C Work Phone: [facility] NeurologyComment on above: Migraine without aura and without status migrainosus, not intractable (Primary Dx); Vestibular migraine; Pineal gland cyst; Hx of concussion; Daytime somnolenceStart: 41-58-6367Rsr-patient / Non-visitFirtonia [facility] Work Phone: Start: 07-16-2023 End: 48-74-9262pwgsppdnxtOhmv [facility] Other [employer] Other Start: 87-87-6797Vwvnjbuci encounterDana [facility] Family [facility] Hospitalomment on above:WEENING OFF QULIPTAStart: 07-09-2023 Patient encounter procedureBelle Physician Group-Start: 06-06-2023 End: 47-65-8544jgwqkceqnsSgay [facility] Other [employer] Other Start: 32-47-3468MV ONLINE E/M JOHAN DICKINSON 05-14Dana [facility] Hospitaltart: 73-69-1334Azjcljwtb encounterDana [facility] Hospitaltart: 05-30-2023 End: 23-86-7677fikhoannqbFwwl [facility] Other [employer] Other Start: 57-15-9975Oampys outpatient visit 25 minutes Nelida [facility]: 05-25-2023 End: 51-22-8102vblqkvqljiSnqz [facility] Other [employer] Other Start: 50-38-0529Psefsysvs encounterDana [facility] Hospitaltart: 05-03-2023 End: 09-85-5651vxtbrrxetoSdgr [facility] Other [employer] Other Start: 97-82-6613Fkpdjepcn encounterDana [facility] Hospitaltart: 03-05-2023 End: 29-89-9522ezuxlrggtdQupl [facility] Other [employer] Other Start: 46-98-3834Svkwbc outpatient visit 25 minutes Nelida [facility] CenterkStart: 02-21-2023 End: 39-57-5333xuuxzkcgmdSpbo [facility] Other [facility] [employer] Other Start: 33-01-8840Mkqubj outpatient visit 40 minutes Nelida [facility] CenterkStart: 99-41-3718Helvngsdx encounter Nelida [facility] Hospitaltart: 11-01-2022 End: 72-34-1030nlzpkmdxxhBD JUNITO ANGEL .Facility:L5Gysns: 09-06-2022 End: 75-74-7855aycvotynflRO JUNITO ANGEL .Facility:Q1Rnlyh: 08-26-2022 End: 50-19-6865yhxrjquxcsVC JUNITO ANGEL .Facility:G6Tuajr: 08-02-2022 End: 53-68-1562jajdwtbdkzPN JUNITO ANGEL .Facility:J9Qqajf: 07-12-2022 End: 41-69-7754ctdwjgklaqDP GIA Yocility:H1 Procedures DateProcedureProcedure DetailPerforming ClinicianStart: 90-52-7575Xukyl dip stick/tablet rgnt non-auto w/o micrscpCorey Angel DO Work Phone: Start: 74-49-9177GI ECHO DOPPLER COMPLETECorey Angel DO Work Phone: Start: 05-83-2629OGD 12-LEADCorey Angel DO Work Phone: Start: 26-35-7636Pszzd dip stick/tablet rgnt non-auto w/o micrscpCorey Angel DO Work Phone: Start: 92-91-5346PHVAEPG 1 HOURInna Kirkland FIRST RESPONDER Work Phone: Start: 08-77-9785Crjnz dip stick/tablet rgnt non-auto w/o micrscpInna Kirkland FIRST RESPONDER Work Phone: Start: 38-60-0639Yvujs dip stick/tablet rgnt non-auto w/o micrscpInna Kirkland FIRST RESPONDER Work Phone: Start: 80-09-3866LWEJRHSLA VAGINITIS (HTRX)Junito Angel DO Work Phone: Start: 67-32-8232Updnb dip stick/tablet rgnt non-auto w/o micrscpCorey Angel DO Work Phone: Start: 64-55-2927NTL,APTIMA HPV,AGE GDLNCorey Angel DO Work Phone: Start: [phone] dip stick/tablet rgnt non-auto w/o micrscpCorey Angel DO Work Phone: Start: [phone] CBC WITH AUTO DIFFCorey Angel DO Work Phone: Start: 12-05-2024 End: [phone] dip stick/tablet rgnt non-auto w/o micrscpCorey Angel DO Work Phone: Start: 06-55-5833Jblowh-up visitFollow-Janeth STRATTONStart: 05-87-8468Ryszg depression screening assessmentThomas[facility]he[facility] Plan of Treatment DateCare ActivityDetailAuthorStart: 05-13-2025 End: 30-63-8457Swaeykc encounter /19/2025 1:20 PM EST Routine NATALIE KEARNS [address] [place], [id number] Nicole Ghosh PA [address] [place] [address] [facility] OBGYNStart: 04-29-2025 End: 28-96-5220Aclocsv encounter jclfaapla93/05/2025 1:30 PM EST Routine [facility] [address] [place], [id number] Junito Ortiz, DO [address] [place] [address] [facility] OBGYNStart: 04-29-2025 End: 32-28-0476Erzukdzfsyze / ancillary services /05/2025 1:00 PM EST Ancillary Procedure [facility] [address] [place] [phone] [facility] OBGYNStart: 04-15-2025 End: 17-03-0423Mvvgrlueeqtbon 2D completeEchocardiogram 2D complete Echocardiography Routine Racing heart beat Expected: 04/15/2025 (Approximate), Expires: 04/15/2027[facility] Work Phone: comment on above:Expected: 04/15/2025 (Approximate), Expires: 04/15/2027Start: 04-15-2025 End: 01-56-9783KC for pregnancyUS OB follow up transabdominal approach Imaging Routine size inconsistent with dates ([facility]) Expected: 04/15/2025, Expires: 08/16/2025[facility] HealthcareComment on above:Expected: 04/15/2025, Expires: 08/16/2025Start: 04-15-2025 End: 98-60-4665Cytmhud encounter procedureNOMS Douglas OBGYNComment on above: ArrivedStart: 03-18-2025 End: 37-17-6707Awcxgmk encounter bvcuxddxm14/24/2025 2:20 PM EDT Routine [facility] [address] [place], [id number] Junito Ortiz, DO [address] [place] [address] NATALIE [place] OBGYNStart: 03-18-2025 End: 31-23-2079EQQ panel - Blood by Automated countCBC Lab Routine Diabetes mellitus screening Expected: 03/18/2025 (Approximate), Expires: 03/18/2026[facility] Work Phone: comment on above:Expected: 03/18/2025 (Approximate), Expires: 03/18/2026Start: 03-18-2025 End: 58-80-6133Mghtdupvufh of glucose 1 hour after glucose challenge for glucose tolerance testGlucose tolerance, 1 hour Lab Routine Diabetes mellitus screening Expected: 03/18/2025 (Approximate), Expires: 03/18/2026[facility] HealthcareComment on above:Expected: 03/18/2025 (Approximate), Expires: 03/18/2026Start: 60-98-3830XCIDZ-19 Vaccine ( season)COVID-19 Vaccine ()[facility] HealthStart: 12-04-5417Zawptuvnf vaccinationCrittenton Behavioral Health Start: 02-18-2025 End: lead ECGECG 12 lead unit performed ECG Routine Elevated heart rate with elevated blood pressure without diagnosis of hypertension Expected: 02/18/2025 (Approximate), Expires: 02/18/2026[facility] Work Phone: comment on above:Expected: 02/18/2025 (Approximate), Expires: 02/18/2026Start: 02-18-2025 End: 29-79-1000Mslikew encounter procedureNOMS [facility] OBStart: 02-18-2025 End: 67-78-5293Nhcwkfumpisk / ancillary services managementNOMS BCP OBStart: 01-14-2025 End: 58-59-9585Cradlxj encounter /23/2025 2:40 PM EDT Routine [facility] [address] [place] [phone] Junito Ortiz, DO [address] [place], [place] [id number] N[facility] BCP OBStart: 01-14-2025 End: 10-36-0174Qvxol fetoprotein, maternalAlpha fetoprotein, maternal Lab Routine Second trimester ([facility]) Expected: 01/14/2025 (Approximate), Expires: 03/17/2025[facility] HealthcareComment on above:Expected: 01/14/2025 (Approximate), Expires: 03/17/2025Start: 01-14-2025 End: 56-75-4110XX for pregnancyUS OB 14+ weeks anatomy scan Imaging Routine Screening, , for anatomic survey ([facility]) Expected: 01/14/2025, Expires: 04/16/2025[facility] HealthcareComment on above:Expected: 01/14/2025, Expires: 04/16/2025Start: 12-17-2024 End: 57-43-9179Qrimprl encounter procedureNOMARTIN [facility] OBComment on above:Arrived Start: 12-05-2024 End: 16-11-9664SCR/RhABO/Rh Lab Routine Missed menses , unspecified gestational age ([facility]) Expected: 12/05/2024 (Approximate), Expires: 12/05/2025[facility] HealthcareComment on above:Expected: 12/05/2024 (Approximate), Expires: 12/05/2025Start: 12-05-2024 End: 78-69-1083Ifuwx type and Indirect antibody screen panel - BloodType and screen Lab Routine Missed menses , unspecified gestational age ([facility]) Expected: 12/05/2024 (Approximate), Expires: 12/05/2025[facility] Work Phone: comment on above:Expected: 12/05/2024 (Approximate), Expires: 12/05/2025Start: 12-05-2024 End: 60-42-0268Klxzf of abuse panel - Urine by Screen methodRapid drug screen, urine Lab Routine , unspecified gestational age ([facility]) Encounter for supervision of normal first in first trimester ([facility]) Expected: 12/05/2024 (Approximate), Expires: 12/05/2025[facility] HealthcareComment on above: Expected: 12/05/2024 (Approximate), Expires: 12/05/2025Start: 12-05-2024 End: 86-88-7041Tsgtoihnqkj [Mass/volume] in Serum or PlasmaTransferrin Lab Routine Dizzy Lightheaded Expected: 12/05/2024 (Approximate), Expires: 12/05/2025[facility] HealthcareComment on above:Expected: 12/05/2024 (Approximate), Expires: 12/05/2025Start: 89-01-2981Ceoth BMI ScreeningAdult BMI Screening [facility]: 40-81-4951Elahytg ScreeningTobacco Screening [facility]: 17-71-0652Tsesq BMI ScreeningAdult BMI Screening [facility]: 61-83-9081Vrppbpgiaj ScreeningDepression Screening [facility] SystemStart: 29-57-9887Tvscymu ScreeningTobacco Screening [facility]: 91-76-8444Nauidzxuu vaccinationInfluenza Vaccine [facility]: 12-12-2023 End: 48-43-9529Pvzcibk encounter hxnhelyxl43/19/2024 9:00 AM EDT Office Visit [facility] [address] [facility] [place] [address] Ty Stratton, ABEBE [address] [place] [address] [facility] Start: 12-06-2023 End: 81-39-0762PE Brain WO contrastMR brain without contrast Imaging Routine Migraine without aura and without status migrainosus, notintractable Vestibular migraine Pineal gland cyst Expected: 12/06/2023 (Approximate), Expires: 09/04[facility] Work Phone: Comment on above:Expected: 12/06/2023 (Approximate), Expires: 09/04/2024Start: 10-31-2023 End: 25-42-1364Xhnsohy encounter jxysymexg36/08/2024 8:45 AM EDT Office Visit [facility] [id number] [place] [address] Jani Mir MD [address] [place] [address] [facility]ocrinologyStart: 10-24-2023 End: 80-47-9459Quakwtq encounter olbmfgdso33/01/2024 10:00 AM EDT Office Visit [facility] [address] [phone] Megan Lopez APRN-YARD COUPLER [address] [facility] [address] [place] [address] [facility]/Sleep MedicineStart: 09-05-2023 End: 12-09-0745Icpzuwx encounter sdyahygcm03/13/2024 9:30 AM EDT Office Visit [facility] [address] [place] [address] Ty Stratton PA-C [address] [place] [address] [facility] Start: 08-01-2023 End: 33-12-8648Wzczzrx encounter zhvevffbf35/07/2024 10:30 AM EST Office Visit [facility] [address] [place] [address] Jani Mir MD [address] [place] [address] [facility]ocrinologyStart: 80-13-6476Becxbztim vaccinationInfluenza Vaccine [facility] SystemStart: 03-36-7722SIH Vaccines (1 - 3-dose SCDM series)HPV Vaccines (1 - 3-dose SCDM series)[facility] HealthcareStart: 05-02-6837Qeucglpdu for malignant neoplasm of cervixPap SmearTrinity Health System SystemStart: 12-19-2014 DTaP,Tdap and Td Vaccines (1 - Tdap)DTaP,Tdap and Td Vaccines (1 - Tdap) [facility] SystemStart: 92-05-1092Dltdnqslb B Vaccines (1 of 3 - 19+ 3- dose series)Hepatitis B Vaccines (1 of 3 - 19+ 3-dose series)[facility] Start: 05-66-7496Getzy BMI Follow Up PlanAdult BMI Follow Up PlanTrinity Health System SystemStart: 76-04-2396Pjiwurx of varicella vaccinationVaricella Vaccines (1 of 2 - 13+ 2-dose series)[facility] HealthcareStart: 53-14-8713HLjN/Tdap/Td Vaccines (1 - Tdap)DTaP/Tdap/Td Vaccines (1 - Tdap)[facility] HealthcareStart: 00-51-7131CJG Vaccines (1 of 1 - Standard series)MMR Vaccines (1 of 1 - Standard series)[facility] HealthBacteria identified in Urine by CultureUrine culture Microbiology Routine Missed menses Ordered: 12/05/2024[facility] HealthcareComment on above:Ordered: 12/05/2024BC W Auto Differential panel - BloodCBC and differential Lab Routine Missed menses , unspecified gestational age ([facility]) Ordered: 12/05/2024[facility] HealthcareComment on above:Ordered: 12/05/2024 CHLAMYDIA TRACHOMATIS (GENITO/STI)CHLAMYDIA TRACHOMATIS (GENITO/STI) Lab Routine Exposure to STD Ordered: 01/14/2025[facility] HealthcareComment on above:Ordered: 01/14/2025ytology Cervical or vaginal smear or scraping studyPap Smear Pathology and Cytology Routine Well woman exam with routine gynecological exam Ordered: 01/14/2025[facility] HealthcareComment on above:Ordered: 01/14/2025Ferritin [Mass/volume] in Serum or PlasmaFerritin Lab Routine Dizzy Lightheaded Ordered: 12/05/2024[facility] HealthcareComment on above:Ordered: 12/05/2024Hemoglobin A1c/Hemoglobin.total in BloodHemoglobin A1c Lab Routine Missed menses , unspecified gestational age ([facility]) Ordered: 12/05/2024[facility] HealthcareComment on above:Ordered: 12/05/2024Hepatitis B virus surface Ag [Presence] in Serum or Plasma by ImmunoassayHepatitis B surface antigen Lab Routine Missed menses , unspecified gestational age ([facility]) Ordered: 12/05/2024[facility] HealthcareComment on above:Ordered: 12/05/2024Hepatitis C virus Ab [Presence] in Serum or Plasma by ImmunoassayHepatitis C antibody Lab Routine Missed menses , unspecified gestational age ([facility]) Ordered: 12/05/2024[facility] HealthcareComment on above:Ordered: 12/05/2024HIV-1/HIV-2 antigen/antibody combination immunoassayHIV-1 and HIV-2 antibodies Lab Routine Missed menses , unspecified gestational age ([facility]) Ordered: 12/05/2024[facility] HealthcareComment on above:Ordered: 12/05/2024Neisseria gonorrhoeae DNA [Presence] in Unspecified specimen by HANNAH with probe detectionNeisseria gonorrhea DNA probe, direct Lab Routine Exposure to STD Ordered: 01/14/2025[facility] HealthcareComment on above:Ordered: 01/14/2025Reagin Ab [Presence] in Serum by RPRRPR Lab Routine Missed menses , unspecified gestational age ([facility]) Ordered: 12/05/2024[facility] HealthcareComment on above:Ordered: 12/05/2024 Rubella antibody, IgGRubella antibody, IgG Lab Routine Missed menses , unspecified gestational age ([facility]) Ordered: 12/05/2024[facility] HealthcareComment on above:Ordered: 12/05/2024SURESWAB(R) ADVANCED VAGINITIS PLUS, TMASURESWAB(R) ADVANCED VAGINITIS PLUS, TMA Pathology and Cytology Routine Vaginal discharge Ordered: 01/14/2025[facility] Work Phone: comment on above:Ordered: 01/14/2025 Immunizations Immunization DateImmunizationNotesCare WqzjlwedGlpmpdmw30-31-3853bqqxwpp and diphtheria toxoids, adsorbed, preservative free, for adult use (5 Lf of tetanus toxoid and 2 Lf of diphtheria toxoid)[facility]08-13-2020 tetanus toxoid, reduced diphtheria toxoid, and acellular pertussis vaccine, jigneshDamanisha Ding Other [facility] Other Payers DatePayer CategoryPayerPolicy [id number] Health [id number] Care Other (unspecified)[facility] ..[id number]75-02-5193Oagfxwt Health Insurance [id number] Health Insurance [id number] 1.125224.3.[id number] ..1.974656.3.57[id number] ..1.671866.3.57[id number] 2..1.569061.3.57[id number] 2..1.138262.3.57[id number] 2.16.840.1.856404.3.57[id number] 2.16.840.1.144757.3.57[id number] 2.16.840.1.668796.3.57[id number] 2.16.840.1.641338.3.57[id number] 2.16.840.1.027665.3.57[id number] 2.16.840.1.356192.3.57[id number] 2..840.1.360455.3.57[id number] 2.16.840.1.690306.3.57[id number] 2.16.840.1.113003.3.57[id number] 2.16.840.1.183752.3.57[id number] 2.840.1.135216.3.57[id number] 2.840.1.657912.3.579.2.988756-37-4107[facility] [id number] Private Health InsuranceTrumbull Regional Medical [id number] 2.840.1.999136.3.579.2.531 Social History DateTypeDetailFacilityStart: 12-19-2019 End: 86-80-3600Gze Assigned At [facility] Rapid7 Other Start: 09-03-2023 End: 78-76-2741Mlkkmdi smoking status NHISNever smoked tobacco (finding) [facility]tart: 90-66-0343Uaf Assigned At [facility] HospitalFeBlanchard Valley Health Systemtart: 03-21-2023 End: 72-54-8105Pugqgbt use and exposureSmokeless tobacco non-userTrinity Health System SystemStart: 09-05-2023 End: 30-33-6250Exqyynqjm beverage intakeCurrent drinker of alcohol (finding) [facility] Hospitaltart: 12-19-2019 End: 02-77-7560Pmzlaht of Social functionCleveland Clinic South Pointe HospitalHow often to you have a drink containing alcohol?NeverFormerly [facility] Hospitaltart: 09-06-2022 Average Number of DrinksNot on [facility]: 03-21-2023 Alcohol CommentsocialFormerly McDowell Hospitaltart: 34-83-4971Znp assigned at [facility] hospitalNot on [facility]tart: 04-06-7844JroSopsuu (finding) [facility]art: 72-74-6448Shakyow CommentOne drink per monthCrittenton Behavioral HealthStart: 27-76-4897XmiukbpveNEKB Healthcare Clinical Notes 02-04-2020 to 04-29-2025 Note Date & GdzoZwpuYbuurfgf64-01-0096 History of Present illness Narrative* Inna Kirkland NP - 04/29/2025 1:30 PM EST Reason for Appointment: Patient ID: Nathaniel Bob is a 29 y.o. female who [...] Problems Diagnosis Date Noted Positive urine test ([facility]) 12/03/2024 Resolved Ambulatory Problems Diagnosis Date [...] nursing note reviewed. Exam conducted with a licensing officer present. Vitals: Estimated body mass index is 34.36 kg/m as calculated from the following: Height as of 01/23/24: 5' 8 . Weight as of 04/15/25: 226 lb. BP: Patient's last menstrual period was 09/28/2024. Assessment/Plan ICD-10-CM 1. Third trimester ([facility]) Z34.93 2. 30 weeks gestation of ([facility]) Z3A.30 POCT urinalysis dipstick manually resulted Return OB: Patient presents today for a routine obstetrics appointment. Patient is currently 30w3d . Patient states she is doing well but has complaints of being tired due to current . Patient has verbalizes frequent movement. labor precautions was discussed/given and patient was instructed to perform kick counts three times a day. Given history of macrosomia and Meconium aspiration with previous will begin NST/BPP at 32 weeks. Orders Placed This Encounter Procedures POCT urinalysis dipstick manually resulted Follow Up: Patient is to return to office in 2 week for routine OB appointment. Documented by Inna Kirkland NP on behalf of: Junito Ortiz DO documented in this encounterCrittenton Behavioral HealthUrmzzgbfgp12-86-4564 History of Present illness Narrative* Saumya Simmons LPN - 04/15/2025 1:00 PM EDT Reason for Appointment: Patient ID: Nathaniel Bob is a 29 y.o. female who [...] Problems Diagnosis Date Noted Positive urine test ([facility]) 12/03/2024 Resolved Ambulatory Problems Diagnosis Date [...] nursing note reviewed. Exam conducted with a licensing officer present. Vitals: Estimated body mass index is 33.15 kg/m as calculated from the following: Height as of 01/23/24: 5' 8 . Weight as of 03/18/25: 218 lb. BP: Patient's last menstrual period was 09/28/2024. Assessment/Plan ICD-10-CM 1. Third trimester ([facility]) Z34.93 2. 28 weeks gestation of ([facility]) Z3A.28 POCT urinalysis dipstick manually resulted [...] of: Junito Ortiz DO documented in this encounterCrittenton Behavioral HealthYuriooypml62-03-6705 History of Present illness Narrative* Ariadna Bowden MA - 03/18/2025 2:20 PM EDT Reason for Appointment: Patient ID: Nathaniel Bob is a 29 y.o. female who [...] Problems Diagnosis Date Noted Positive urine test ([facility]) 12/03/2024 Resolved Ambulatory Problems Diagnosis Date [...] nursing note reviewed. Exam conducted with a licensing officer present. Vitals: Estimated body mass index is 33.15 kg/m as calculated from the following: Height as of 01/23/24: 5' 8 . Weight as of this encounter: 218 lb. BP: 122/70 Patient's last menstrual period was 09/28/2024. ASSESSMENT & PLAN ICD-10-CM 1. Second trimester ([facility]) Z34.92 POCT urinalysis dipstick manually resulted 2. 24 weeks gestation of ([facility]) Z3A.24 3. Diabetes mellitus screening Z13.1 [...] of: Junito Ortiz DO documented in this encounterCrittenton Behavioral HealthCcapxkarfj14-61-8777 History of Present illness Narrative* Inna Kirkland NP - 02/18/2025 10:00 AM EDT Reason for Appointment: Patient ID: Nathaniel Bob is a 29 y.o. female who [...] Problems Diagnosis Date Noted Positive urine test ([facility]) 12/03/2024 Resolved Ambulatory Problems Diagnosis Date [...] nursing note reviewed. Exam conducted with a licensing officer present. Vitals: Estimated body mass index is 31.75 kg/m as calculated from the following: Height as of 24: 5' 8 . Weight as of this encounter: 208 lb 12.8 oz. BP: 116/70 Patient's last menstrual period was 09/28/2024. ASSESSMENT & PLAN ICD-10-CM 1. Nausea and vomiting in ([facility]) O21.9 promethazine (Phenergan) 12.5 MG tablet 2. Second trimester ([facility]) Z34.92 POCT urinalysis dipstick manually resulted 3. 20 weeks gestation of ([facility]) Z3A.20 POCT urinalysis dipstick manually resulted 4. [...] of: Inna Kirkland NP documented in this encounterCrittenton Behavioral HealthVpovpywfhe92-50-5914 History of Present illness Narrative* Saumya Simmons LPN - 01/14/2025 2:40 PM EDT Reason for Appointment: Patient ID: Nathaniel Bob is a 29 y.o. female who [...] Problems Diagnosis Date Noted Positive urine test ([facility]) 12/03/2024 Resolved Ambulatory Problems Diagnosis Date Noted [...] nursing note reviewed. Exam conducted with a licensing officer present. Vitals: Estimated body mass index is 30.99 kg/m as calculated from the following: Height as of 7/31/24: 5' 8 . Weight as of this encounter: 203 lb 12.8 oz. BP: 110/70 Patient's last menstrual period was 09/28/2024. ASSESSMENT & PLAN ICD-10-CM 1. 15 weeks gestation of ([facility]) Z3A.15 POCT urinalysis dipstick manually resulted 2. Second trimester ([facility]) Z34.92 POCT urinalysis dipstick manually resulted Alpha fetoprotein, maternal Alpha fetoprotein, maternal 3. Gastroesophageal reflux disease with esophagitis, unspecified whether hemorrhage K21.00 4. Screening, , for anatomic survey ([facility]) Z36.89 US OB 14+ weeks anatomy scan US OB 14+ weeks anatomy scan 5. Exposure to STD Z20.2 CHLAMYDIA TRACHOMATIS (GENITO/STI) Neisseria gonorrhea DNA probe, direct 6. Vaginal discharge N89.8 SURESWAB(R) ADVANCED VAGINITIS PLUS, TMA 7. Well woman exam with routine gynecological exam Z01.419 Pap Smear Return OB/Annual Exam: Patient presents today for a annual exam/routine obstetrics appointment. Patient is currently 93q5gamvlbjtf. Patient states she is doing well but [...] of: Junito Ortiz DO documented in this encounterCrittenton Behavioral HealthUexgezrazc01-90-8470 History of Present illness Narrative* Saumya Simmons LPN - 12/17/2024 1:00 PM EDT Reason for Appointment: Patient ID: Nathaniel Bob is a 28 y.o. female who [...] Problems Diagnosis Date Noted Positive urine test ([facility]) 12/03/2024 Resolved Ambulatory Problems Diagnosis Date [...] nursing note reviewed. Exam conducted with a licensing officer present. Vitals: Estimated body mass index is 29.73 kg/m as calculated from the following: Height as of 01/23/24: 5' 8 . Weight as of this encounter: 195 lb 8 oz. BP: 110/62 Patient's last menstrual period was 09/28/2024. ASSESSMENT & PLAN ICD-10-CM 1. 11 weeks gestation of ([facility]) Z3A.11 POCT urinalysis dipstick manually resulted 2. First trimester ([facility]) Z34.91 3. Nausea and vomiting in ([facility]) O21.9 4. Gastroesophageal reflux disease with esophagitis, unspecified whether hemorrhage K21.00 pantoprazole (Protonix) 40 MG EC tablet 5. Meconium aspiration in child of prior , currently , unspecified trimester ([facility]) O09.299 New OB: Patient presents today [...] or undercooked meat, and stay away from [facility]. Patient has been consulted regarding any further do's and don'ts of . Patient voiced understanding and all questions and concerns were answered. Orders Placed This Encounter Procedures POCT urinalysis dipstick manually resulted Follow Up: Patient is to return in 4 weeks for routine OB appointment. Documented by Saumya Simmons LPN on behalf of: Junito Ortiz DO documented in this encounterCrittenton Behavioral HealthUeqoxkiqls40-10-3606 History of Present illness Narrative* Carissa Castro, MUSIC RESEARCHER - 12/05/2024 10:00 AM EDT Reason for Appointment: Patient ID: Nathaniel Bob is a 28 y.o. female who [...] Problems Diagnosis Date Noted Positive urine test ([facility]) 12/03/2024 Resolved Ambulatory Problems Diagnosis Date [...] dipstick manually resulted , unspecified gestational age ([facility]) - Type and screen; Future - ABO/Rh; Future - CBC and differential - Hemoglobin A1c - RPR - Rubella antibody, IgG - Hepatitis B surface antigen - Hepatitis C antibody - HIV-1 and HIV-2 antibodies - Rapid drug screen, urine; Future Encounter for supervision of normal first in first trimester ([facility]) - Rapid drug screen, urine; Future Dizzy [...] or undercooked meat, and stay away from [facility]. Patient has also been advised [...] by: Carissa Castro LPN documented in this encounterCrittenton Behavioral HealthLsnyqmqzgn49-37-1447 Evaluation note* Author Jake Fitzgerald [facility] HospitalAuthoredRandolph Health 2023 9:29amPatient positive for intermittent nausea occurring once or twice monthly patient does note slight appetite changes however this is minimal patient did report periods of weight loss however patient has maintained her weight for many months at this point. Patient is negative for hematemesis, abdominal pain and family history of esophageal and gastric cancer. [facility] Work Phone: [phone]) 472-306703-13-2024 History of Present illness Narrative* Ty Stratton PA-C - 09/05/2023 9:30 AM EDT [facility] Office Note 09/05/2023 8:59 AM Patient info: Nathaniel Bob is a 27 y.o. female Account No.: [id number] Acct: : 1995 PCP: IVON Wadsworth Chief Complaint: Patient, 27 year old female, presents for follow up Neurological evaluation regarding migraines. Last seen in the office on 05/23/23 Nathaniel is present in the office today by herself. Interval Hx: At last office visit (05/23/23) started Qulipta 60 mg daily for migraine prevention and weaned off Propranolol. Started Rizatriptan 5 mg +/- Zofran ODT 4 mg for symptomatic migraine relief Recommended a repeat Brain MRI with and without contrast in 1 year (March,) Nathaniel tolerated Qulipta well, but she experienced the [...] small cyst. CT Head recently completed at [facility] (February,) - reportedly was normal but results and images are unavailable for personal review at this time Prior Hx: Nathaniel complains of dizziness and frequent headaches. Dizziness [...] concussion at age 6 (-) hx of CRAB PICKER infection: (-) hx of stroke/cerebrovascular malformation: (-) hx of intracranial mass/tumor/cyst/malformation: (+) hx of anxiety/depression/mood disorder: hx of anxiety/depression Family Hx: (-) known family member/s with hx of recurrent PEREZ/migraines: (-) known family member/s with hx of cerebral aneurysm: (-) known family member/s with hx of intracranial mass/tumor/cyst: Nathaniel denies any recent change in gait or [...] Oxide 250 mg daily for migraine prevention. Nathaniel has been tolerating Propranolol LA well, but [...] for symptomatic migraine relief with varying effectiveness. Nathaniel takes Wellbutrin XL in treatment of anxiety, [...] normal stride and bilateral arm swing ASSESSMENT: Nathaniel is a 27 year old female with a hx of seasonal allergies, anxiety, and a single remote concussion who gets migraines without aura, often with associated vestibular symptoms. Pqjg-vj-slstdozc PEREZ's are often present upon waking, while the more severe PEREZ's start during the daytime hours, increasing in intensity over a 'short' period of time. She reports a low energy level despite getting adequate amount of sleep. 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 PLAN: Start Verapamil SR 120 mg HS [...] Stratton PA-C 09/06/23 0832 documented in this encounterACMC Healthcare System GlenbeighShenzhen Globalegrow [employer] [facility] [id number] Miscellaneous Notes* Telephone Encounter - Viviane Jamison [...] refill again. Please advise and contact patient [phone] * Telephone Encounter - Aimee Lombardo CMA [...] informed and voiced understanding. documented in this encounterACMC Healthcare System Glenbeigh [place] [id number] Telephone encounter Note* Telephone Encounter - Viviane [...] refill again. Please advise and contact patient [phone] [facility] [place] [id number] Telephone encounter Note* Telephone Encounter - Aimee Lombardo CMA - 07/16/2023 12:39 PM EST The patient is currently taking 60 mg 1 tab in the am of Qulipta. The patient was last seen in clinic 05/23/2023 and is scheduled to follow up 09/05/2023. [facility] [employer] [id number] Telephone encounter Note* Telephone Encounter - Ty Stratton PA-C - 07/16/2023 12:39 PM EST Take 1/2 tablet daily for 6 days, then Discontinue. - [facility] [place] [id number] Telephone encounter Note* Telephone Encounter - eYlitza Pickens RN - 07/16/2023 12:39 PM EST Patient informed and voiced understanding. [facility]We[facility].[id number] Evaluation note* Encounter Date Diagnosis Assessment Notes [...] albuterol. Continue to monitor closely. Can take kvzt-wrs-cpgtxat medication for symptom relief. Exercise conservative measures, [...] that were not corrected during review process. [employer] Other 12-06-2023 Evaluation note* Encounter Date Diagnosis [...] that were not corrected during review process. [employer] Other 09-11-2023 Evaluation note* Encounter Date Diagnosis [...] that were not corrected during review process. [employer] Other 08-30-2023 Evaluation note* Encounter Date Diagnosis [...] will also forward these to endocrinology through [facility]. Jan,Elevated cortisol level (ICD-10 - E27.0)Extensive lab [...] will also forward these to endocrinology through [facility]. Jan,Nausea (ICD-10 - R11.0)I would like her [...] and is agreeable. We will refer to [facility] neurology so the same electronic medical record [...] and is agreeable. We will refer to [facility] neurology so the same electronic medical record [...] that were not corrected during review process. [employer] Other 02-22-2022 Note [id number]#1.00[facility]10-15-2021 [id number]#1.00[facility] 02-04-2020 History general Narrative - Reported* Type Description Date Medical History Anxiety Medical HistoryDepressionMedical HistorySeasonal allergiesHospitalization HistoryChildbirth02/04/2020Hospitalization ItlkgowJyplntkdvn00/15/2021 [facility] [employer] Other Evaluation noteNo InformationNortGeisinger-Bloomsburg Hospital [employer] Other Evaluation noteNo assessment information available [facility] Work Phone: Evaluation note* Diagnosis Onset Date Resolution Status Acid reflux acuteAnxietyacuteMigrainesacuteNauseaacute [facility] Work Phone: Evaluation note* Diagnosis Migraine without aura and without status migrainosus, not intractable documented in this encounter [facility]* Diagnosis Migraine without aura and without status migrainosus, not intractable- Primary Vestibular migraine Pineal gland cyst Other specified endocrine disorders Hx of concussion Daytime somnolence documented in this encounter [facility] SystemEvaluation [facility]* Diagnosis Missed menses , unspecified gestational age ([facility]) Encounter for supervision of normal first in first trimester ([facility]) Dizzy Dizziness and giddiness Lightheaded Dizziness and giddiness documented [facility] this encounter [facility]* Diagnosis 11 weeks gestation of ([facility]) First trimester ([facility]) state, incidental Nausea and vomiting in ([facility]) Unspecified vomiting of , unspecified as to episode of care Gastroesophageal reflux disease with esophagitis, unspecified whether hemorrhage Meconium aspiration in child of prior , currently , unspecified trimester ([facility]) documented in this encounter [facility]* Diagnosis 15 weeks gestation of ([facility]) Second trimester ([facility]) state, incidental Gastroesophageal reflux disease with esophagitis, unspecified whether hemorrhage Screening, , for anatomic survey ([facility]) Encounter for anatomic survey Exposure to STD Vaginal discharge Leukorrhea, not specified as infective Well woman exam with routine gynecological exam Routine gynecological examination Nausea and vomiting in ([facility]) Unspecified vomiting of , unspecified as to episode of care related fatigue in second trimester ([facility]) Insomnia, unspecified type Other migraine with status migrainosus, not intractable documented in this encounter [facility]* Diagnosis Nausea and vomiting in ([facility] Primary Unspecified vomiting of , unspecified as to episode of care Second trimester ([facility]) state, incidental 20 weeks gestation of ([facility]) Elevated heart rate with elevated blood pressure without diagnosis of hypertension documented in this encounter [facility]* Diagnosis Second trimester ([facility]) state, incidental 24 weeks gestation of ([facility]) Diabetes mellitus screening Screening for diabetes mellitus documented in this encounter [facility]* Diagnosis Third trimester ([facility]) state, incidental 28 weeks gestation of ([facility]) size inconsistent with dates ([facility]) Racing heart beat Unspecified tachycardia documented in this encounter [facility]* Diagnosis Third trimester ([facility]) state, incidental 30 weeks gestation of ([facility]) documented in this encounter [facility] HealthcareHistory general Narrative - Reported* Type Description Date Medical History Anxiety Medical HistoryDepressionMedical HistorySeasonal allergiesMedical History Elevated cortisol levelMedical HistoryElevated DHEAMedical HistoryMigraines Hospitalization HistoryChildbirth02/04/2020Hospitalization HistoryChildbirth 06/08/2021 [facility] Other InstructionsNot on filedocumented in this encounter [facility] SystemInstructionsNot on filedocumented in this encounter [facility] SystemInstructionsNot on filedocumented in this encounter [facility] Summary Purpose Family History No Family [...] 1 Elevated DHEA (E27.8 ) [facility] Referring Provider First Name Nelida Referring Provider Last Name [facility] Referring Provider Specialty Nurse Pract itioner Referred Organization [facility] Referred Address [address],[address] Referred Provider Specialty Endocrinolog y Referral Priority Routine Reason Neuro [facility]- sev eral ongoing neuro symptoms Pending CT head at [facility] Diagnosis 1 Dizziness (R42) Referral Organization [facility] [place] Referring Provider First Name Nelida Referring Provider Last Name [facility] Referring Provider Specialty Nurse Pract itioner Referred Organization [facility] Referred Address [address], [place],[address] Referred Provider Specialty Neurology Referral Priority Routine SpecialtyDiagnoses / ProceduresReferred By ContactReferred To ContactRadiology Diagnoses Migraine without aura and without status migrainosus, not intractable Vestibular migraine Pineal gland cyst Procedures MR brain without contrast Ty Stratton PA-C [address] [facility] [place] [address] Referral IDStatusReasonStart DateExpiration DateVisits RequestedVisits [id number] Review/[id number] / ProceduresReferred By ContactReferred To ContactSleep Medicine Diagnoses Daytime somnolence Ty Stratton PA-C [address] [facility] [place] [address] Yanira Partida MD [address] [place] [address] Referral IDStatusReasonStart DateExpiration DateVisits RequestedVisits [id number] Review Specialty Services Required Chief Complaint and [...] section and content) DATE CREATED AUTHOR 11/14/2021 [facility] DATE CREATED AUTHOR AUTHOR'S ORGANIZ ATION 11/05/2022 [facility] DATE CREATED AUTHOR AUTHOR'S ORGANIZ ATION 09/06/2023 [facility] DATE CREATED AUTHOR AUTHOR'S ORGANIZ ATION 05/01/2025 [facility] DATE CREATED AUTHOR AUTHOR'S ORGANIZ ATION 05/07/2025 [facility] REASON FOR VISIT (unrecogniz ed section and content) ReasonCommentsMed RefillReasonOnset DateCommentsWEENING OFF TUPJSCM6207/16/2023 ReasonCommentsFollow-upPatient is here today for 3 month [...] Dates Nelida Ding APRN Primary Care Pr velma, Attending Provider Active Start: September 19, 2023 End: September 19, 2023 Team Status: Inactive Member Role Status Dates Jake Fitzgerald APRN Attending Provider Active Start: November 28, 2023 End: November 27MONSERRAT Schultzripiter Care ProviderActiveStart: November 28, 2023 End: November 28, 2023 Team Status: Inactive Member Role Status Dates Nelida Ding APRN Primary Care Provider Active Start: December 05, 2023 End: December 04orey FazioAttending ProviderActiveStart: December 05, 2023 End: December 05, [...] Dates Nelida Ding APRN Primary Care Pr velma, Attending Provider Active Start: December 25, 2023 End: December 25, 2023Team MemberRelationshipSpecialtyStart DateEnd Date BonivanJeremy shermana, WINE STEWARD-YARD COUPLER [address] [address] PCP - [facility]04/06/23Team MemberRelationshipSpecialtyStart Date End Date BonivanJeremy shermana, WINE STEWARD-YARD COUPLER [address] [address] PCP - [facility]04/06/23Team MemberRelationshipSpecialtyStart Date End Date Bonakosua Nelida, WINE STEWARD-YARD COUPLER [address] [address] [facility] Ndnviwfo52/13/23Team MemberRelationshipSpecialtyStart Date End Date Unallocated, Meryls MD [facility] [place] [address] [facility] - [facility] Qcztprgr74/14/24 Treasure England DO [address] [place] [address] Referring AngjdswftBlvqcyaso95/14/24Team MemberRelationshipSpecialtyStart Date End Date Unallocated, Natalie Mccollum MD [facility] [place] [address] PCP - [facility]05/08/24 Treasure England DO [address] [place] [address] Referring PkctaadljHtzvpghiz47/14/24Team MemberRelationshipSpecialtyStart Date End Date Unallocated, Natalie Mccollum MD [address] [place] [address] PCP - [facility]05/08/24 Treasure England DO [address] [place] [id number] Referring SaunavqzpDpeogusqg22/14/24Team MemberRelationshipSpecialtyStart Date End Date Unallocated, Natalie Mccollum MD [facility] [place] [address] PCP - [facility]05/08/24 Treasure England DO [address] [place] [address] Referring HlkfspligZaspzqmhl33/14/24Team MemberRelationshipSpecialtyStart Date End Date Unallocated, Noms MD [facility] [place] [address] PCP - [facility]05/08/24 Treasure England DO [address] [place] [id number] Referring PfpoxbedzMijcdpjyr69/14/24Team MemberRelationshipSpecialtyStart Date End Date Unallocated, Noms ProviderMD [facility] [place] [address] PCP - [facility]05/08/24 Treasure England DO [address] [place] [address] Referring ExkmetbwdXzcczyimo28/14/24Team MemberRelationshipSpecialtyStart Date End Date Unallocated, Noms MD Chun [facility] [place] [address] PCP - [facility]05/08/24 Treasure England DO [address] [address] Referring UinbtkndiVmeopqmdn00/14/24Team MemberRelationshipSpecialtyStart Date End Date Unallocated, Meryls MD Chun [facility] [place] [address] PCP - [facility]05/08/24 Treasure England DO [address] [place] [address] Referring VkcxzrznrNahiqbmhu10/14/24Team MemberRelationshipSpecialtyStart Date End Date Unallocated, Meryls MD [facility] [place] [address] PCP - [facility]05/08/24 Treasure England DO [address] [place] [address] Referring EjxqmazaoQoakqvnsg56/14/24Team MemberRelationshipSpecialtyStart Date End Date Unallocated, Meryls MD [facility]un [facility] [place] [address] [facility] - [facility]05/08/24 Treasure England DO [address] [place] [address] Referring JgndcjhzrNktyhnxwf12/14/24Team MemberRelationshipSpecialtyStart Date End Date Unallocated, Meryls MD [facility] [place] [address] [facility]05/08/24 Treasure England DO [address] [place] [address] Referring GbtetwudxUlrlcxlgn03/14/24 Goals (unrecognized section and content) Goals may [...] BE BASED ON THE PRIMARY CLINICAL RECORDS. [facility]. provides no warranty or guarantee of the accuracy or completeness of information in this document.
[2025-05-15 15:13] VITALS: BP 102/66; PULSE 87
== END 2025-05-15 15:35 | disposition home or self-care (01) ==
LOC: US 14:52 → FBC 14:54
PROVIDERS: PCP Nurse Practitioner Family; Visit Provider Obstetrics & Gynecology
DX: O26.893 Other specified pregnancy related conditions, third trimester (principal); R00.0 Tachycardia, unspecified; Z3A.32 32 weeks gestation of pregnancy
CPT/HCPCS: 76818

== ENCOUNTER 2025-05-19 19:21 | Outpatient (OUT) | payer OTHER, SELFPAY ==
--- OUTSIDE RECORDS SUMMARY | 2025-05-13 13:20 | XMS_ITS | Encounter Summary ---
Author Organization [facility] Address [address] [facility] [place] [address] Care Team Providers Care Financial Services Professional Name Role Phone Unallocated, Noms Provider MD Primary Care Provi aristeo Treasure England DO Unavailable [phone] Reason for Visit * ReasonCommentsRoutine Visit Encounter Details DateTypeDepartmentCare Team (Latest Contact Info)Vycawsllmiu79/19/2025 1:20 PM ESTRoutine [facility] [place] [facility] [address] [address] Nicole Ghosh PA [address] [facility] [address], [facility] 32 weeks gestation of ([facility]); Third trimester ([facility]); Racing heart beat Social History Tobacco UseTypesPacks/DayYears UsedDateSmoking Tobacco: NeverSmokeless Tobacco: NeverAlcohol UseStandard Drinks/WeekCommentsYes0 (1 standard drink = 0.6 oz pure alcohol)One drink per monthEstimated Date of DeliveryCommentsYes 6Based on last menstrual period of 09/28/2024Sex and Gender Information ValueDate RecordedSex Assigned at BirthNot on fileLegal SiaHjbeve74/15/2023 8:11 PM EDTGender IdentityNot on fileSexual OrientationNot on filedocumented as of this encounter Last Filed Vital Signs Vital SignReadingTime TakenCommentsBlood Xiqansdi849/7611 1:27 PM EST Pulse--Temperature--Respiratory Rate--Oxygen Saturation--Inhaled Oxygen Concentration--Rboeom310 kg (227 lb)05/13/2025 1:27 PM ESTHeight--Body Mass Index34.5207 1:31 PM EDTdocumented in this encounter Progress Notes * JONNIE Bhatti - 05/13/2025 1:20 PM EST Reason for Appointment: Patient ID: Kat Bob [...] every 6 hours as needed for nausea. Probiotic Product (PROBIOTIC ADVANCED PO) Probiotic pyridoxine (VITAMIN B-6) 25 mg, Daily ALLERGIES Allergies Allergen Reactions Pollen Extract Other Reaction(s): Unknown Reaction PROBLEMS Active Ambulatory Problems Diagnosis Date Noted Positive urine test ([facility]) 12/03/2024 Resolved Ambulatory Problems Diagnosis Date Noted [...] Exam Constitutional: Appearance: Normal appearance. She is well-developed and normal weight. HENT: Head: Normocephalic. Cardiovascular: Rate and Rhythm: Normal rate and regular rhythm. Pulses: Normal pulses. Pulmonary: Effort: Pulmonary effort is normal. Breath sounds: Normal breath sounds. Abdominal: General: Bowel sounds are normal. There is no distension. Palpations: Abdomen is soft. Tenderness: There is no abdominal tenderness. There is no guarding or rebound. Musculoskeletal: General: No swelling. Normal range of motion. Right lower leg: No edema. Left lower leg: No edema. Neurological: General: No focal deficit present. Mental Status: She is alert and oriented to person, place, and time. Skin: General: Skin is warm and dry. Psychiatric: Mood and Affect: Mood normal. Behavior: Behavior normal. Thought Content: Thought content normal. Judgment: Judgment normal. Vitals and nursing note reviewed. Exam conducted with a industrial commercial groundskeeper present. Vitals: Estimated body mass index is 34.52 kg/m?? as calculated from the following: Height as of 01/23/24: 5' 8 . Weight as of this encounter: 227 lb. BP: 118/76 Patient's last menstrual period was 09/28/2024. Assessment/Plan ICD-10-CM 1. 32 weeks gestation of ([facility]) Z3A.32 POCT urinalysis dipstick manually resulted US biophysical profile w non stress test 2. Third trimester ([facility]) Z34.93 POCT urinalysis dipstick manually resulted US biophysical profile w non stress test 3. Racing heart beat R00.0 US biophysical profile w non stress test Assessment/Plan Return OB: Patient presents today for a routine obstetrics appointment. Patient is currently 32w3d . Patient states she is doing well but has complaints of being tired due to current . Patient has verbalizes frequent movement. labor precautions was discussed/given and patient was instructed to perform kick counts three times a day. Patient was given NST/BPP orders to have obtained. Orders Placed This Encounter Procedures US biophysical profile w non stress test POCT urinalysis dipstick manually resulted Follow Up: Patient is to return to office in 2 week for routine OB appointment. Documented by Cindy Weinstein LPN on behalf of: JONNIE Bhatti documented in this encounter Plan of Treatment DateTypeDepartmentCare Team (Latest Contact Info)Twoznawskwn84/03/2025 1:00 PM ESTRoutine [facility] [address] [place] [address] AngelJunito denis DO [address] [place] [address] NameTypePriorityAssociated DiagnosesOrder ScheduleUS biophysical profile w non stress testImagingRoutine 32 weeks gestation of ([facility]) Third trimester ([facility]) Racing heart beat Expected: 05/13/2025 (Approximate), Expires: 11/10/2025documented as of this encounter Procedures Procedure NamePriorityDate/TimeAssociated DiagnosisCommentsPOCT URINALYSIS IIGLYLHACrubuhx61/19/2025 1:32 PM EST 32 weeks gestation of ([facility]) Third trimester ([facility]) documented in this encounter Results * (ABNORMAL) POCT urinalysis dipstick manually resulted (05/13/2025 1:32 PM EST) ComponentValueRef RangeTest MethodAnalysis TimePerformed AtPathologist SignatureColor, UAYellowClarity, UAClearGlucose, UANegativeNegative - 2000(110) ++++ mg/dLBilirubin, UANegativeNegative - 4(70) +++ mg/dLKetones, UA NegativeNegative - 160(16) ++++ mg/dLSpec Grav, UA1.0151 - 1.03Blood, UA NegativeNegative - 50 Cj/mcLpH, UA6.05 - 9Protein, UAPositiveNegative - 2000(20) ++++ mg/dLUrobilinogen, UA1.00.2 - 12 mg/dLLeukocytes, UAPositive Negative - 500+++ Cosmo/mcLNitrite, UANegativeNegative - PositiveSpecimen (Source)Anatomical Location / LateralityCollection Method / VolumeCollection TimeReceived CmccFmnho83/19/2025 1:32 PM EST Narrative Authorizing ProviderResult TypeResult StatusBon Secours St. [facility] TEST ENTER/EDIT ORDERABLESFinal Result documented in this encounter Visit Diagnoses Diagnosis 32 weeks gestation of ([facility]) Third trimester ([facility]) state, incidental Racing heart beat Unspecified tachycardia documented in this encounter Care Teams Team MemberRelationshipSpecialtyStart DateEnd Date Unallocated, Noms Provider, [address] [place], [place] [id number] PCP - GeneralFamily Xsuehvgx19/14/24 Treasure England DO [address] [place] [address] Referring BobfbumzmJsmoyazza98/14/24documented as of this encounter
--- OUTSIDE RECORDS SUMMARY | 2025-05-19 19:24 | XMS_ITS | Encounter Summary ---
Author Organization [facility] Address [address] [facility] [place] [address] Care Team Providers Care Forming Yardage Control Operator Name Role Phone Unallocated, Noms Provider MD Primary Care Provi aristeo TomásTreasure DO Unavailable [phone] Encounter Details DateTypeDepartmentCare Team (Latest Contact Info)Xkwcxhzcfgq60/21/2025linisync Result Encounter [facility] External Department Unsolicited Lora Ortiz DO [address], [place] [address] Social History Tobacco UseTypesPacks/DayYears UsedDateSmoking Tobacco: NeverSmokeless Tobacco: NeverAlcohol UseStandard Drinks/WeekCommentsYes0 (1 standard drink = 0.6 oz pure alcohol)One drink per monthEstimated Date of DeliveryCommentsYes 6Based on last menstrual period of 09/28/2024Sex and Gender Information ValueDate RecordedSex Assigned at BirthNot on fileLegal IsiUwwleu89/15/2023 8:11 PM EDTGender IdentityNot on fileSexual OrientationNot on filedocumented as of this encounter Plan of Treatment DateTypeDepartmentCare Team (Latest Contact Info)Fyilcryljao48/03/2025 1:00 PM ESTRoutine [facility] [address] [place] [address] Lora Ortiz DO [address] [place] [address] documented as of this encounter Procedures Procedure NamePriorityDate/TimeAssociated DiagnosisCommentsUS OB BPP W NON-MSWIDT4805/15/2025 3:36 PM EST documented in this encounter Results * US OB BPP W NON-STRESS (05/15/2025 3:36 PM EST)Anatomical Region LateralityModalityOtherSpecimen (Source)Anatomical Location / Laterality Collection Method / VolumeCollection TimeReceived Time05/15/2025 3:36 PM EST Narrative 05/15/2025 3:38 PM EST [facility] ?[address] ? [place] [address] ? Ultrasound Report ? Signed ? Patient: NATHANIEL TAYLOR ?MR#: [id number] ?? : 1995 ?Acct:[id number] ?? Age/Sex: 29 / F ?ADM Date: 05/15/25 ?? Loc: [facility] ??250-1 ? Attending Dr: Lora Ortiz D.O. ? Ordering Physician: Lora Ortiz D.O. ?? Date of Service: 05/15/25 ?? Procedure(s): US OB BPP w non-stress ?? Accession Number(s): [id number] ? cc: Kelly Mckenzie BENCH PRECISION ASSEMBLER; Lora Ortiz D.O. ? [facility] ? [address] [facility] ? [place] [address] ? Patient Name: ?? NATHANIEL TAYLOR ? MRN: [facility]:[id number] ? date: 1995 ?Sex: F ?? Assigned Patient Location: [facility] ?? Current Patient Location: [facility] ?? Accession/Order Number: [id number] ?? Exam Date: 05/15/2025 ??14:56 ?Report Date: 05/15/2025 ??15:36 ? At the request of: ?? LORA ??ANGEL ??DO ? Procedure: ??US OB BPP w non-stress ? Biophysical profile. ? Reason for exam: Third trimester ? COMPARISON: None ? TECHNIQUE: Transabdominal imaging of the gravid uterus was obtained. ? FINDINGS: The environmental compliance officer reports a BPP of 8 out of 8. ??CLAUDE is normal at 12.3 ?? cm. ?? heart rate 153 bpm. ? US/US OB BPP w non-stress ?? IMPRESSION: BPP 8 out of 8. ? Impression dictated by: Himanshu Mckeon Jr., D.O. ??05/15/2025 3:36 PM ? Dictation Location: [facility] ? Electronically authenticated by: [id number] ??Y ?? Date: 05/15/2025 ??15:36 ? Dictated By: ?Himanshu Mckeon M.D. ? Signed By: ?05/15/25 1538 ? DD/ 1536 ? TD/TT: ? Fur Repairer: Procedure Note Radiology, Radiologist, MD - 05/15/2025 [place] [address] Ultrasound Report Signed Patient: NATHANIEL TAYLOR [facility]#: [id number] : 1995Acct:[id number] Age/Sex: 29 / FADM Date: 05/15/25 Loc: [facility] 250-[address]: Lora Ortiz D.O. Ordering Physician: Lora Ortiz D.O. Date of Service: 05/15/25 Procedure(s): US OB BPP w non-stress Accession Number(s): [id number] cc: Kelly Mckenzie BENCH PRECISION ASSEMBLER; Lora Ortiz D.O. The [place] [id number] Patient Name: NATHANIEL TAYLOR MRN: [id number] date: 1995 Sex: F Assigned Patient Location: [facility] Current Patient Location: [facility] Accession/Order Number: [id number] Exam Date: 05/15/2025 14:56 Report Date: 05/15/2025 15:36 At the request of: LORA ORTIZ DO Procedure: US OB BPP w non-stress Biophysical profile. Reason for exam: Third trimester COMPARISON: None TECHNIQUE: Transabdominal imaging of the gravid uterus was obtained. FINDINGS: The environmental compliance officer reports a BPP of 8 out of 8. CLAUDE is normal at12.3 cm. heart rate 153 bpm. US/US OB BPP w non-stress IMPRESSION: BPP 8 out of 8. Impression dictated by: Himanshu Mckeon Jr., D.O. 05/15/2025 3:36 PM Dictation Location: [place] [address] Electronically authenticated by: [id number] Y Date: 5:36 Dictated By: Himanshu Mckeon M.D. Signed By:05/15/25 1538 DD/ 1536 TD/TT: Fur Repairer: Authorizing ProviderResult TypeResult StatusCorey Angel DOCLINISYNC IMAGINGFinal Result documented in this encounter Visit Diagnoses Not on filedocumented in this encounter Care Teams Team MemberRelationshipSpecialtyStart DateEnd Date Unallocated, Noms Provider, [address] [place] [address] PCP - GeneralFamily Tomnlzcl77/14/24 Treasure England DO [address] [place] [address] Referring GdnghblqcNdsbqtwlh97/14/24documented as of this encounter
--- OUTSIDE RECORDS SUMMARY | 2025-05-19 19:24 | XMS_ITS | Encounter Summary ---
Author Organization [facility] Address [address] [facility] [place] [address] Care Team Providers Care Supervisor Intermediates Name Role Phone Unallocated, Noms Provider Primary Care Provi aristeo Treasure England DO Unavailable [phone] Encounter Details DateTypeDepartmentCare Team (Latest Contact Info)Stpxleoufdc03/19/2025amboo flowsheet NATALIE KEARNS [address] [place] [address] Nicole Ghosh PA [address] [place], [place] [address] Social History Tobacco UseTypesPacks/DayYears UsedDateSmoking Tobacco: NeverSmokeless Tobacco: NeverAlcohol UseStandard Drinks/WeekCommentsYes0 (1 standard drink = 0.6 oz pure alcohol)One drink per monthEstimated Date of DeliveryCommentsYes 6Based on last menstrual period of 09/28/2024Sex and Gender Information ValueDate RecordedSex Assigned at BirthNot on fileLegal YokLzvqye45/15/2023 8:11 PM EDTGender IdentityNot on fileSexual OrientationNot on filedocumented as of this encounter Plan of Treatment DateTypeDepartmentCare Team (Latest Contact Info)Kpfeeillgms45/03/2025 1:00 PM ESTRoutine NATALIE KEARNS [address] [place] [address] Junito Ortiz DO [address] [place], [place] [address] documented as of this encounter Visit Diagnoses Not on filedocumented in this encounter Care Teams Team MemberRelationshipSpecialtyStart DateEnd Date Unallocated, N[place] Provider, [place] [address] PCP - GeneralFamily Yedmucga89/14/24 Treasure England DO [address] [place] [address] Referring RcphkccogDycttjskc14/14/24documented as of this encounter
--- OUTSIDE RECORDS SUMMARY | 2025-05-19 19:24 | XMS_ITS | CCD ---
Author Organization [facility] Care Team Providers Care Warehouse Distribution Associate Name Role Phone NICK, DR NIELSEN Admitting Unavailable NICK, DR NIELSEN Attending Unavailable SMITH ., VI Primary Care Unavailable NICK, DR NIELSEN Consulting Unavailable ANGEL ., DR PAULINO Consulting Unavailable ANGEL ., DR PAULINO Admitting Unavailable ANGEL ., DR PAULINO Attending Unavailable SMITH ., VI Primary Care Unavailable GOULD, DR NIELSEN V Consulting Unavailable ANGEL ., [...] Unavailable YANELI Ding Primary Care Provider [phone] Junito Ortiz Attending Provider Magaly CAMPAIGN MANAGEMENT SENIOR MANAGERNelida HANSEN Primary Care Provider Unallocated , Meryls [...] of OnsetReaction(s) Facility (9 sources)House dust miteDrug allergySpoonityMaria Fareri [facility] CrowdBouncer Other (20 sources)PollenDrug waihqqa42-01-6302RmpljtoSipog Coast CrowdBouncer Other (5 sources)house dust allergenic extract; Translations: [house dust]Drug Allergy 73-27-6410Kwuncol ReactionSelect Medical Specialty Hospital [facility], Inc (5 sources)Pollen; Translations: [pollen extracts]Allergy to yghsaypwj06-14-5756 Unknown ReactionSelect Medical Specialty Hospital - [facility], Inc Medications Current Medications MedicationDrug Class(es)DatesSig (Normalized)Sig (Original)acetaminophen 300 mg / codeine phosphate 30 mg oral tablet (4 sources)Opioid AgonistStart: 01-14-2025 End: 65-71-9206qzug 1 tablet by mouth every six hours [...] Activedexamethasone 1 mg oral tablet (2 sources)CorticosteroidStart: 68-29-3581Rmgrupiujuzka 1 MG 1 tablet Orally 11pm for 1 days Jan, ActiveDoxylamine Succinate, Sleep, (UNISOM PO) (19 sources)Doxylamine Succinate, Sleep, (UNISOM PO) Take by mouth Active fexofenadine (10 sources)Histamine-1 Receptor AntagonistStart: 21-51-8963rkrtxmjmuaeb (Blanche All[facility]) Active PO December 25, 2023 12:00amStart: 09-19-2023 End: 79-89-1033gcsqtwuntkkv (Blanche Allergy) Discontinued PO Daily September 19, 2023 12:00am November 28, 2023 8:59amStart: 08-68-3070tjlmrnuieljk (Blanche Allergy) Active PO Daily September 19, 2023 12:00amStart: 09-12-2023 End: 31-71-4404tisknklscnlq (Blanche Allergy) 180 MG tablet 09/12/2023 12/17/2024 DiscontinuedMagnesium (20 sources)Start: 13-40-5839olrijruyb Active PO December 25, 2023 12:00amStart: 09-03-2023 End: 42-13-2937gkkgxvsgm Discontinued PO September 03, 2023 12:00am November 28, 2023 8:59amStart: 01-68-0689plracfksd Active PO September 03, 2023 12:00amStart: 54-96-0650tpmxiokho 100 MG tablet 08/17/2022 ActiveMagnesium OTC, daily Active metoclopramide 10 mg oral tablet (20 sources)Dopamine-2 Receptor AntagonistStart: 87-40-4137szni 1 tablet by mouth in the morning as needed for nauseametoclopramide (Reglan) 10 MG tablet Indications: Nausea and vomiting in ([facility] TAKE 1TABLET BY MOUTH IN MORNING,AT NOON,IN EVENING 30 MINUTES PRIOR TO MEALS NEEDED FOR NAUSEA 90 tablet 1 03/23/2025 ActiveStart: 01-26-2025 End: 92-42-3965bxbbudbnikpwco (Reglan) 10 MG tablet Indications: Nausea and vomiting in ([facility] Take 1tablet (10 mg) by mouth in the morning and 1 tablet (10 mg) at noon and 1 tablet (10 mg) in the evening. Take before meals. Take 1 tablet by mouth 30 minutes prior to meals 3 times daily as needed for nausea. 90 tablet 1 01/26/2025 ActiveStart: 01-14-2025 End: 64-14-1692obku 1 tablet by mouth three times daily as neededmetoclopramide (Reglan) 10 MG tablet Indications: Nausea and vomiting in ([facility] Take 1tablet (10 mg) by mouth 3 (three) times a day as needed (as needed prior to meals) for up to 10 days 1 tablet 01/14/2025 01/24/2025 ActiveStart: 12-16-2024 End: 43-43-9419qequ 1 tablet by mouth before mealtime as needed for nausea metoclopramide (Reglan) 10 MG tablet Indications: Nausea and vomiting in ([facility]) TAKE 1TABLET BY MOUTH IN THE MORNING, NOON, EVENING, 30 MINUTES BEFORE MEALS NEEDED FOR NAUSEA 90 tablet 3 12/16/2024 12/17/2024 Discontinued (Ineffective)Start: 11-14-2024 End: 88-45-0215eqnfzgkloyqaoo (Reglan) 10 MG tablet Indications: Nausea and vomiting in ([facility]) Take 1tablet (10 mg) by mouth in the morning and 1 tablet (10 mg) at noon and 1 tablet (10 mg) in the evening. Take before meals. Take 1 tablet by mouth 30 minutes prior to meals 3 times daily as needed for nausea. 90 tablet 11/14/2024 12/14/2024 Activeomeprazole 20 mg delayed release oral capsule (20 sources)Proton Pump InhibitorStart: 01-26-2025 End: 75-66-1422mxzn 2 capsules by mouth before mealtimeomeprazole (PriLOSEC) [address] capsule Indications: Gastroesophageal Reflux Disease , Heartburn Take 2 capsules (40 mg) by mouth in the morning. Take before meals. Do not crush or chew. 180 capsule 05/19/2025 ActiveStart: 09-03-2023 End: 40-52-5325qqdn 40 mg by mouth once dailyOmeprazole Discontinued 40 MG PO Daily 90 90 September 03, 2023 2:16pm November 28, 2023 8:59amStart: 72-78-5250lxec 2 capsules by mouth in the morningomeprazole (PriLOSEC) 20 mg capsule Take 2 capsules (40 mg total) by mouth in the morning. 02/21/2023 ActiveStart: 38-13-1208gskr 1 capsule by mouth once dailyOmeprazole 40 MG 1 capsule 30 minutes before morning meal Orally Once a day for 90 days Jan, Active Start: 62-85-1690qkqr 1 capsule by mouth in the morningomeprazole (PriLOSEC) 20 mg capsule Take 1 capsule (20 mg total) by mouth in the morning. 0 02/21/2023 Activeondansetron 4 mg oral tablet (20 sources)Serotonin-3 Receptor AntagonistStart: 11-05-2024 End: 40-54-8526ozng 1 tablet by mouth every six hours as needed for nausea and nausea, then take 1 tablet by mouthevery six hours as needed for nausea and nauseaondansetron (Zofran) 4 MG tablet Indications: Nausea and vomiting in ([facility]) Take 1 tablet (4 mg) by mouth every 6 (six) hours if needed for nausea or vomiting for up to 30 doses Take 1 tablet by mouth every 6 hours as needed for nausea. 30 tablet 3 01/14/2025 ActiveStart: 09-03-2023 End: 20-03-9320fjaf 4 mg by mouth once dailyOndansetron Hcl Active 4 MG PO Daily December 25, 2023 12:36pmStart: 61-25-3642libh 1 tablet by mouth every twenty-four hoursOndansetron HCl 4 MG 1 tablet Orally Once a day for 14 days Jun, Active End: 88-73-3533vrat 1 tablet by mouth every eight hours [...] tablet (19 sources)Proton Pump InhibitorStart: 12-17-2024 End: 98-97-2797mdvw 1 tablet by mouth before mealtimepantoprazole (Protonix) [...] hydrochloride 12.5 mg oral tablet (12 sources)PhenothiazineStart: 40-24-9516xohp 1 tablet by mouth every eight hours as needed for nausea and nausea, then take 1 tablet by mouth every six hours as needed for nausea and nauseapromethazine (Phenergan) 12.5 MG tablet Indications: Nausea and vomiting in ([facility]) Take 1 tablet (12.5 mg) by [...] PERSISTSMAX 2/24HR 12 tablet 2 07/04/2024 ActiveStart: 88-28-0409bpvekdelwnt (MAXALT) 10 mg tablet Indications: Migraine without aura and without status migrainosus, not intractable Take 1 tablet just after onset of migraine. May repeat the dose after 2 hours if migraine persists. Max of 2 doses per 24 hours. 12 tablet 2 09/05/2023 ActiveStart: 05-23-2023 End: 76-93-2938fmut 5 mg by mouth once dailyRizatriptan Discontinued 5 MG PO Daily September 03, 2023 12:00am November 28, 2023 8:59amverapamil hydrochloride 120 mg extended release oral tablet (2 sources)Calcium Channel BlockerStart: 90-42-6051nogz 1 tablet by mouth once dailyverapamil SR (CALAN-SR) 120 mg CR tablet Indications: Migraine without aura and without status migrainosus, not intractable Take 1 tablet (120 mg total) by mouth nightly. 30 tablet 5 09/05/2023 Activezolpidem tartrate 10 mg oral tablet (16 sources)gamma-Aminobutyric Acid-ergic AgonistStart: 01-14-2025 End: 00-27-1400Nykbvi 10 MG tablet Indications: related fatigue in second trimester ([facility]) , Insomnia, unspecified type Take 1 tablet (10 mg) by mouth as needed at bedtime for sleep for up to 5 days 5 tablet 01/14/2025 Active Completed/Discontinued Medications MedicationDrug Class(es)DatesSig (Normalized)Sig (Original)Atogepant (4 sources)Start: 09-03-2023 End: 72-31-7300urkd 60 mg by mouth once dailyAtogepant Discontinued 60 MG PO Daily September 03, 2023 12:00am September 19, 2023 11:04amatogepant (QULIPTA) 60 mg tablet (2 sources)Start: 05-23-2023 End: 73-59-8611dkhw 1 tablet by mouth in the morningatogepant (QULIPTA) 60 mg tablet Indications: Migraine without aura and without status migrainosus,not intractable Take 60 mg by mouth in the morning. 30 tablet 5 05/23/2023 09/05/2023 DiscontinuedStart: 28-49-2916hhcj 1 tablet by mouth in the morning atogepant (QULIPTA) 60 mg tablet Indications: Migraine without aura and without status migrainosus,not intractable Take 60 mg by mouth in the morning. 30 tablet 5 05/23/2023 Pnufmu89 hr buPROPion hydrochloride 150 mg extended release oral tablet (20 sources)AminoketoneStart: 09-19-2023 End: 44-20-3671kfoc 150 mg by mouth once dailyBupropion Hcl Discontinued 150 MG PO Daily 90 September 19, 2023 11:41am November 28, 2023 8:59amStart: 09-03-2023 End: 06-93-4568phyv 1 tablet by mouth once dailyBupropion Hcl [...] oral tablet (5 sources)Histamine-2 Receptor Antagonist End: 56-88-3971vfnskrzxut (Pepcid) 10 MG tablet Take by mouth 01/14/2025 Discontinuedmagnesium oxide 250 mg oral tablet (2 sources) End: 68-01-5037zrbk 1 tablet by mouth in the morningmagnesium oxide 250 mg tablet Take 1 tablet (250 mg total) by mouth in the morning. 0 09/05/2023 Dis continuedPNV no.95/ferrous fum/folic ac ( ORAL) (2 sources) End: 82-69-4829onkh 1 tablet by mouth once daily before mealtimePNV no.95/ferrous fum/folic ac ( ORAL) Take 1 tablet by mouth daily. 0 09/05/2023 Discontinuedtake 1 tablet by mouth once daily before mealtimePNV no.95/ferrous fum/folic ac ( ORAL) Take 1 tablet by mouth daily. 0 Activepolysaccharide iron complex 391 mg oral capsule (7 sources)Start: 04-01-2025 End: 13-61-4763jjbs 1 capsule by mouth once dailyiron polysaccharides (ProFe) 391.3 (180 Fe) MG capsule Indications: Low iron Take 1 capsule (391.3 mg) by mouth Daily 30 capsule 6 04/01/2025 05/01/2025 Expiredpropranolol hydrochloride 20 mg oral tablet (4 sources)beta-Adrenergic BlockerStart: 05-23-2023 End: 81-09-2753nejujsprhrK (INDERAL) 20 mg tablet Indications: Migraine without aura and without status migrainosus, not intractable Take 1 tablet (20 mg) twice daily for 3 days, then reduce to 1 tablet daily for 3days, then discontinue 9 tablet 0 05/23/2023 09/05/2023 Discontinuedtake 1 tablet by mouth at bedtime Propranolol HCl 60 MG 1 tablet Orally HS for migraines Activevitamin B12 (5 sources)Vitamin R67Oiysjjg B12 Not-Taking Problems Active Problems Problem ClassificationProblemDateDocumented DateEpisodic/ChronicAnxiety disorders (17 sources)Anxiety; Translations: [Anxiety disorder, unspecified]ChronicComa; stupor; and brain damage (2 sources)Somnolence; Translations: [Daytime somnolence]Onset: 09-05-2023 25-25-1247TdtaluazUygpdlpdkk associated with dizziness or vertigo (12 sources)Dizziness; Translations: [Dizziness and giddiness]EpisodicEsophageal disorders (9 sources)Gastroesophageal reflux disease; Translations: [Gastro-esophageal reflux disease without esophagitis]69-63-2750EmyxyluZehyrmjn; including migraine (20 sources)Migraine; Translations: [Migraine, unspecified, not intractable, without status migrainosus]Onset: 14-83-2117TfsbwxgMsssp valve disorders (6 sources)Tachycardia; Translations: [Unspecified abnormalities of heart beat] 67-72-2237SxtoocvfEgeaeevrrgdvd and screening for infectious disease (3 sources)Encounter for screening for human papillomavirus (HPV); Translations: [Exposure to sexually transmissible disorder]Onset: 047444-62-8506Eyotyyzg Malaise and fatigue (1 source)Other fatigue; Translations: [OTHER FATIGUE]Onset: 85-71-5634Troozdxk Menstrual disorders (5 sources)Irregular menstruation, unspecified; Translations: [Missed period] Onset: 58-05-4512GzoiycpMxrp disorders (13 sources)Depressive disorder; Translations: [Major depressive disorder, single episode, unspecified]23-46-0552ZdmiirlErmfxg and vomiting (18 sources)Nausea; Translations: [Nausea]Onset: 31-70-2933BlcgvwufMlyxr bone disease and musculoskeletal deformities (1 source)Segmental and somatic dysfunction of pelvic region; Translations: [Segmental and somatic dysfunction of pelvic region]Onset: 86-16-8398Iuolbaux Other complications of (6 sources)Vomiting of , unspecified; Translations: [Unspecified vomiting of , unspecified as to episode of care or not applicable] 55-08-7046FpkzadynCgtfx complications of (2 sources)High risk ; Translations: [Supervision of with other poor reproductive or obstetric history, unspecified trimester]12-17-2024 EpisodicOther complications of (2 sources)Fatigue during ; Translations: [ related exhaustion and fatigue, second trimester]95-71-9336AimcmldmGckbs complications of (2 sources) size does not accord with dates; Translations: [Uterine size- date discrepancy, unspecified trimester]07-51-2193IrzlnjgtEmsoi endocrine disorders (5 sources)Other adrenocortical overactivity; Translations: [OTHER ADRENOCORTICAL OVERACTIVITY]Onset: 89-05-1590WvfpgfoSipbi endocrine disorders (9 sources)Dehydroepiandrosterone sulfate level; Translations: [Other specified disorders of adrenal gland]ChronicOther endocrine disorders (9 sources)Increased cortisol level; Translations: [Other adrenocortical overactivity]ChronicOther endocrine disorders (2 sources)Other specified disorders of adrenal glandChronicOther female genital disorders (2 sources)Vaginal discharge; Translations: [Other specified noninflammatory disorders of vagina]72-18-3276HbpuuwxsIbasz and delivery including normal (20 sources); Translations: [Encounter for supervision of normal , unspecified, unspecified trimester]Onset: EpisodicOther screening for suspected conditions (not mental disorders or infectious disease) (20 sources)Encounter for screening for malignant neoplasm of cervix; Translations: [Other specified abnormal findings of blood chemistry]Onset: 27-95-2258ChffegobGpiob upper respiratory disease (13 sources)Seasonal allergy; Translations: [Other seasonal allergic rhinitis] 58-76-0677IzcuycdRhdjd upper respiratory infections (1 source)Acute upper respiratory infection, unspecifiedEpisodicResidual codes; unclassified (2 sources)Gestation period, 11 weeks; Translations: [11 weeks gestation of ]05-86-5021DkzqctvmLbmfcsit codes; unclassified (2 sources)Gestation period, 15 weeks; Translations: [15 weeks gestation of ]44-21-2297EilyzcxgVptvtxsz codes; unclassified (2 sources)Insomnia; Translations: [Insomnia, unspecified]42-45-3769Jnclhdfk Residual codes; unclassified (2 sources)Gestation period, 20 weeks; Translations: [20 weeks gestation of ]82-51-1930RtwygaplMzyfsoik codes; unclassified (2 sources)Gestation period, 24 weeks; Translations: [24 weeks gestation of ]06-17-0813ErmccgpnPuzqlvdx codes; unclassified (2 sources)Gestation period, 28 weeks; Translations: [28 weeks gestation of ]69-98-2174TgcdpooqOeujwmpa codes; unclassified (2 sources)Gestation period, 30 weeks; Translations: [30 weeks gestation of ]75-86-9637Xdvuqxgn Past or Other Problems Problem ClassificationProblemDateDocumented DateEpisodic/ChronicAbdominal pain (4 sources)Unspecified abdominal pain; Translations: [UNSPECIFIED ABDOMINAL PAIN]Onset: 85-40-5050VfyndzhrNjfspdpjasmv injury (5 sources)Personal history of traumatic brain injury; Translations: [History of concussion injury of brain]Onset: 906896-24-5459RyxtkpulBmeh disorders (3 sources)Mood disordersOnset: Other complications of ; puerperium affecting management of mother (3 sources)Central nervous system malformation in fetus affecting obstetrical care; Translations: [Choroid plexus cyst of fetus affecting care of mother, antepartum]Onset: 866108-83-2081YjcseiwtGwwcq endocrine disorders (1 source)Endocrine disorder, unspecified; Translations: [ENDOCRINE DISORDER UNSPECIFIED]Onset: 02-06-6371PdkpmcncTecra endocrine disorders (1 source)Other specified endocrine disorders; Translations: [Other specified endocrine disorders]Onset: 53-81-1275RdrobdfaTyjdh endocrine disorders (4 sources)Cyst of pineal gland; Translations: [Other specified endocrine disorders]Onset: 429992-13-4085GytpwizqZjjjm gastrointestinal disorders (1 source)Abdominal distension (gaseous); Translations: [ABDOMINAL DISTENSION GASEOUS]Onset: 52-56-7805AibozorwSjnpbnl cyst (1 source)Other ovarian cyst, right side; Translations: [OTHER OVARIAN CYST RIGHT SIDE]Onset: 90-15-5870Cbyeqsgn Results Test NameValueInterpretationReference RangeFacilityUS OB FOLLOW UP TRANSABDOMINAL APPROACHon 97-58-0445MJ OB FOLLOW UP TRANSABDOMINAL APPROACH FINDINGS: A [...] Delivery: 07/05/25 Gestational Age as of 04/15/2025: 63h9nVjldymesve macro (dipstick) panel (U)on 62-69-6217Tcdryvqpf, UANegativeNegative - 4(70) +++ mg/dLNOMS HealthcareBlood, UANegativeNegative - 50 Cj/mcLNOMS HealthcareClarity, UAClearNOMS Healthcare Color, UAYellowNOMS HealthcareGlucose, UANegativeNegative - 2000(110) ++++ mg/dL NOMS HealthcareInterpretation and review of laboratory resultsAbnormalNOMS HealthcareKetones, UANegativeNegative - 160(16) ++++ mg/dLNOMS Healthcare Leukocytes, UATraceNegative - 500+++ Cosmo/mcLNOMS HealthcareNitrite, UANegative Negative - PositiveNOMS HealthcarepH, UA7.05 - 9NOMS HealthcareProtein, UA NegativeNegative - 2000(20) ++++ mg/dLNOME HealthcareSpec Grav, UA1.0101 - 1.03 NOMS HealthcareUrobilinogen, UA1.00.2 - 12 mg/dLNOME HealthcareNOME HealthcareCA ECHO DOPPLER COMPLETEon 26-43-8427RgfClear[place] [address] Cardiology Report Signed Patient: NATHANIEL BOB MR#: [id number] : 1995 Acct:[id number] Age/Sex: 29 / F ADM Date: 04/22/25 Loc: CARD Attending Dr: Junito Ortiz D.O. Ordering Physician: Junito Ortiz D.O. Date of Service: 04/22/25 Procedure(s): CA echo doppler complete Accession Number(s): [id number] cc: Nelida Ding TRANSPORTATION DEPARTMENT SUPERVISOR; Junito Ortiz D.O. Patient Name: NATHANIEL BOB MR#: [id number] : 1995 Exam Date: 04/22/2025 Ordering Doctor: [...] Area (VTI): 2.50 cm2, 2.50 cm2 Deceleration [place]: Pressure Half-Time: Peak Velocity(Antegrade Flow): 1.55 m/s [...] content not included)...TBHRadiology, Radiologist, - 04/22/2025 [place] [address] Cardiology Report Signed Patient: NATHANIEL BOB MR#: [id number] : 1995 Acct:[id number] Age/Sex: 29 / F ADM Date: 04/22/25 Loc: CARD Attending Dr: Junito Ortiz D.O. Ordering Physician: Junito Ortiz D.O. Date of Service: 04/22/25 Procedure(s): CA echo doppler complete Accession Number(s): [id number] cc: Nelida Ding TRANSPORTATION DEPARTMENT SUPERVISOR; Junito Ortiz D.O. Patient Name: NATHANIEL BOB MR#: [id number] : 1995 Exam Date: 04/22/2025 Ordering Doctor: [...] Area (VTI): 2.50 cm2, 2.50 cm2 Deceleration [place]: Pressure Half-Time: Peak Velocity(Antegrade Flow): 1.55 m/s [...] M.D. Signed By: 04/22/251812 DD/ 11 TD/TT: Waiter/Waitress Bar: [facility] FOR WOMENDominguez HealthcareRadiology Study observation (narrative)[facility]Barry RoadCA ECHO DOPPLER COMPLETEOrdered By: Radiologist Radiology on 68-86-5283LAHN [employer] Work Phone: ecg 12-LEADon 63-43-2305PydClearwater[place] [address] Electrocardiograph Report Signed Patient: NATHANIEL BOB MR#: [id number] : 1995 Acct:[id number] Age/Sex: 29 / F ADM Date: 04/22/25 Loc: CARD Attending Dr: Junito Ortiz D.O. Ordering Physician: Junito Ortiz D.O. Date of Service: 04/22/25 Procedure(s): ECG 12 lead Accession Number(s): [id number] cc: [facility] Test Date: 2025-04-22 Pat Name: NATHANIEL BOB Department: Room: - Gender: Female Telephone Recorder: : 1995 Requested By: JUNITO ORTIZ Order Number: [id number] Reading MD: SLY SAAB Measurements Intervals [place] Rate: 84 P: 22 OR: 139 QRS: 88 QRSD: 94 T: 54 QT: 361 QTc: 429 Interpretive Statements SINUS RHYTHM No previous ECG available for comparison Electronically Signed On 04-22-2025 18:39:57 EDT by SLY SAAB Dictated By: Sly Saab M.D. Signed By: 04/22/25183804/22/251838 DD/ 7 TD/TT: Waiter/Waitress Bar:CHADWICKadiolSarahi acosta MD - 04/22/2025 The [place] [id number] Electrocardiograph Report Signed Patient: NATHANIEL BOB MR#: [id number] : 1995 Acct:[id number] Age/Sex: 29 / F ADM Date: 04/22/25 Loc: CARD Attending Dr: Junito Ortiz D.O. Ordering Physician: Junito Ortiz D.O. Date of Service: 04/22/25 Procedure(s): ECG 12 lead Accession Number(s): [id number] cc: [facility] Test Date: 2025-04-22 Pat Name: NATHANIEL BOB Department: Room: - Gender: Female Telephone Recorder: : 1995 Requested By: JUNITO ORTIZ Order Number: [id number] Reading MD: SLY SAAB Measurements Intervals [place] Rate: 84 P: 22 OR: 139 QRS: 88 QRSD: 94 T: 54 QT: 361 QTc: 429 Interpretive Statements SINUS RHYTHM No previous ECG available for comparison Electronically Signed On 04-22-2025 18:39:57 EDT by SLY SAAB Dictated By: Sly Saab M.D. Signed By: 04/22/25183804/22/251838 DD/ 7 TD/TT: Waiter/Waitress Bar: NATALIE BarriosRadiology Study observation (narrative)[facility] HealthcareECG 12-LEAD Ordered By: Radiologist Radiology on 20-82-1414JGUW Healthcare Work Phone: Urinalysis macro (dipstick) panel (U)on 04-15-2025 Bilirubin, UANegativeNegative - 4(70) +++ mg/dLNOMS HealthcareBlood, UANegative Negative - 50 Cj/mcLNOMS HealthcareClarity, UAClearNOMS HealthcareColor, UA YellowNOMS HealthcareGlucose, UANegativeNegative - 2000(110) ++++ mg/dLNOMS HealthcareInterpretation and review of laboratory resultsAbnormalNOMS Healthcare Ketones, UANegativeNegative - 160(16) ++++ mg/dLNOMS HealthcareLeukocytes, UA TraceNegative - 500+++ Cosmo/mcLNOME HealthcareNitrite, UANegativeNegative - PositiveNOMS HealthcarepH, UA6.05 - 9NOMS HealthcareProtein, UATraceNegative - 2000(20) ++++ mg/dLNOME HealthcareSpec Grav, UA1.0201 - 1.03N[facility] Healthcare Urobilinogen, UA2.00.2 - 12 mg/dLNOMS HealthcareNOMS HealthcareGLUCOSE 1 HOURon 13-09-6739Nuwmkiv [Mass/Vol]114 mg/dLNINF - 130 mg/dLNOME HealthcareCLINISYNC NOMS HealthcareUS OB LIMITED 1+ FETUSESon 39-07-5163OD OB LIMITED 1+ FETUSES FINDINGS: Breech presentation. [...] Delivery: 07/05/25 Gestational Age as of 02/25/2025: 60t7qZyodoetrrl macro (dipstick) panel (U)on 53-85-9255Emypidjuc, UANegativeNegative - 4(70) +++ mg/dLNOMS HealthcareBlood, UANegativeNegative - 50 Cj/mcLNOMS HealthcareClarity, UAClearNOMS Healthcare Color, UAYellowNOMS HealthcareGlucose, UANegativeNegative - 2000(110) ++++ mg/dL N[facility]S HealthcareInterpretation and review of laboratory resultsNormalNOME HealthcareKetones, UANegativeNegative - 160(16) ++++ mg/dLNOME Healthcare Leukocytes, UANegativeNegative - 500+++ Cosmo/mcLNOMS HealthcareNitrite, UA NegativeNegative - PositiveNOME HealthcarepH, UA6.55 - 9NOMS HealthcareProtein, UANegativeNegative - 2000(20) ++++ mg/dLNOMS HealthcareSpec Grav, UA1.011 - 1.03 NOMS HealthcareUrobilinogen, UA1.00.2 - 12 mg/dLNOMS [facility] Healthcare Urinalysis macro (dipstick) panel (U)on 08-39-0938Xqubxixzk, UANegativeNegative - 4(70) +++ mg/dLNOMS HealthcareBlood, UANegativeNegative - 50 Cj/mcLNOMS HealthcareClarity, UAClearNOMS HealthcareColor, UAYellowNOMS HealthcareGlucose, UANegativeNegative - 1999(110) ++++ mg/dLNOMS HealthcareInterpretation and review of laboratory resultsAbnormalNOMS HealthcareKetones, UANegativeNegative - 160(16) ++++ mg/dLNOMS HealthcareLeukocytes, UAPositiveNegative - 500+++ Cosmo/mcLNOMS HealthcareNitrite, UANegativeNegative - PositiveNOMS HealthcarepH, UA65 - 9NOMS HealthcareProtein, UANegativeNegative - 1999(20) ++++ mg/dLNOMS HealthcareSpec Grav, UA1.0251 - 1.03NOMS HealthcareUrobilinogen, UA1.00.2 - 12 mg/dLNOMS [facility]ville HospitalNOME HealthcareIGP,APTIMA HPV,AGE GDLNon 84-87-8848XCE GDLN ACOG TESTINGNote.[facility] HealthcareComment on above:TESTS RESULT FLAG UNITS REF RANGE LAB Clinician Provided Cytology Information Source.............Endocervix No. of containers..01 ThinPrep Vial Age Algo ACOG Marina... FLAG LEGEND: L-Low Normal,H-High Normal,LL-Alert Low,HH-Alert High <-Panic Low,>-Panic High,A-Abnormal,AA-Critical Abnormal Performed at: 01 =[facility] [place] [address] Maliha Cobb MD, IGP, RFX APTIMA HPV ASCUNote.NOMS HealthcareComment on above:TESTS RESULT FLAG UNITS REF RANGE LAB DIAGNOSIS: 02 NEGATIVE FOR INTRAEPITHELIAL LESION OR MALIGNANCY. Specimen adequacy: 02 Satisfactory for evaluation. No endocervical component is identified. Performed by: Santi Gregory, Ash Conveyor Operator ([facility]) . 02 Note: Note 02 The [...] <-Panic Low,>-Panic High,A-Abnormal,AA-Critical Abnormal Performed at: [address] [address] Maliha Cobb MD, Performed at: = - [facility] [address] [id number] Brand Designer: Maliha Cobb MD, Phone: [phone] Performed at: [facility] [address] [id number] Brand Designer: Maliha Cobb MD, Phone: [phone] SPATULA-ALONE ENDOCERVIX CLINISYNCNOMS HealthcareRECURRENT VAGINITIS (HTRX)on 83-59-6624QPDEHDLFM VAGINAE 0NOMS HealthcareATOPOBIUM VAGINAENot detectedNOMS HealthcareBVAB 2,3 (BACTERIAL VAGINOSIS ASSOCIATED BACTERIA 2, 3); MOBILUNCUS UQN3VGLA HealthcareBVAB 2,3 (BACTERIAL VAGINOSIS ASSOCIATED BACTERIA 2, 3); MOBILUNCUS SPPNot detectedNOMS HealthcareCANDIDA ALBICANS, PARAPSILOSIS, IVECQNIAVO1EDLT HealthcareCANDIDA ALBICANS, PARAPSILOSIS, TROPICALISNot detectedNOMS HealthcareCANDIDA GLABRATA0 NOMS HealthcareCANDIDA GLABRATANot detectedNOMS HealthcareCANDIDA MCMQYS9NRCJ HealthcareCANDIDA KRUSEINot detectedNOMS HealthcareCHLAMYDIA KRCALPWWGVB0PZGY HealthcareCHLAMYDIA TRACHOMATISNot detectedNOMS HealthcareGARDNERELLA VAGINALIS0 NOMS HealthcareGARDNERELLA VAGINALISNot detectedNOMS HealthcareMEGASPHAERA (TYPES 1, 2)0NOMS HealthcareMEGASPHAERA (TYPES 1, 2)Not detectedNOMS Healthcare MYCOPLASMA KOIUMOBLBA7GMOS HealthcareMYCOPLASMA GENITALIUMNot detectedNOMS HealthcareNEISSERIA [id number] HealthcareNEISSERIA GONORRHOEAENot detected NOMS HealthcareTRICHOMONAS JJBVVUKXK8GFHJ HealthcareTRICHOMONAS VAGINALISNot detectedNOMS HealthcareNOMS HealthcareUS OB 14+ [...] Delivery: 07/05/25 Gestational Age as of 01/14/2025: 86u9qAeegguwjhf macro (dipstick) panel (U)on 51-76-0501Grsmdkdmy, UANegativeNegative - 4(70) +++ mg/dLNOMS HealthcareBlood, UANegativeNegative - 50 Cj/mcLNOMS HealthcareClarity, UAClearNOMS Healthcare Color, UAYellowNOMS HealthcareGlucose, UANegativeNegative - 2000(110) ++++ mg/dL NOMS HealthcareInterpretation and review of laboratory resultsNormalNOMS HealthcareKetones, UANegativeNegative - 160(16) ++++ mg/dLNOMS Healthcare Leukocytes, UANegativeNegative - 500+++ Cosmo/mcLNOMS HealthcareNitrite, UA NegativeNegative - PositiveNOMS HealthcarepH, UA65 - 9NOMS HealthcareProtein, UA NegativeNegative - 2000(20) ++++ mg/dLNOME HealthcareSpec Grav, UA1.021 - 1.03 NOMS HealthcareUrobilinogen, UA1.00.2 - 12 mg/dLNOME HealthcareNOMS Healthcare Urinalysis macro (dipstick) panel (U)on 49-07-7465Yfewxadtw, UANegativeNegative - 4(70) +++ mg/dLNOMS HealthcareBlood, UANegativeNegative - 50 Cj/mcLNOME HealthcareClarity, UAClearNOME HealthcareColor, UAYellowNOME HealthcareGlucose, UANegativeNegative - 2000(110) ++++ mg/dLNOME HealthcareInterpretation and review of laboratory resultsAbnormalBLUE MOUNTAIN [facility]OSPITAL HealthcareKetones, UANegativeNegative - 160(16) ++++ mg/dLBLUE MOUNTAIN HOSPITAL HealthcareLeukocytes, UAPositiveNegative - 500+++ Cosmo/mcLBLUE MOUNTAIN HOSPITAL HealthcareComment on above:smallNitrite, UANegativeNegative - PositiveNOMS HealthcarepH, UA5.55 - 9NOMS HealthcareProtein, UANegativeNegative - 2000(20) ++++ mg/dLNOME HealthcareSpec Grav, UA1.031 - 1.03NOME Healthcare Urobilinogen, UA0.20.2 - 12 mg/dLNOSaint Mary's Hospital of Blue SpringsNOMS HealthcareALL CBC WITH AUTO DIFFon 48-56-1989PAOLXIGPC ABSOLUTE AUTO0.1NOMS HealthcareBasophils/100 WBC (Bld)0.4 %0.2 - 2.0 %NOMS HealthcareEosinophils/100 WBC (Bld)0.9 %0.9 - 7.0 % [facility] HealthcareErythrocyte distribution width (RBC) [Ratio]13.4 %11.0 - 15.0 % [facility] HealthcareHematocrit (Bld) [Volume fraction]43.2 %36.0 - 48.0 %[facility]Barry RoadHemoglobin (Bld) [Mass/Vol]15.2 g/dL12.0 - 16.0 g/dLSaint Luke's North Hospital–Barry Road IMMATURE GRANULOCYTES ABS AUTO0.05HighNOSaint Mary's Hospital of Blue SpringsImmature granulocytes/100 WBC (Bld)0.4 %0.0 - 0.5 %[facility]–Barry RoadInterpretation and review of laboratory resultsAbnormalSaint Luke's North Hospital–Barry RoadLYMPHOCYTES ABSOLUTE AUTO2.3[facility] Lymphocytes/100 WBC (Bld)17.1 %Low20.5 - 60.0 %[facility] CenterH (RBC) [Entitic mass]29.9 pg26.7 - 34.0 pgCenterpoint Medical CenterHC (RBC) [Mass/Vol]35.2 g/dL29.9 - 35.2 g/dLCenterpoint Medical CenterV (RBC) [Entitic vol]85 fL81.0 - 99.0 fLSaint Luke's North Hospital–Barry RoadMONOCYTES ABSOLUTE AUTO0.7[facility]–Barry RoadMonocytes/100 WBC (Bld)5.5 % 1.7 - 12.0 %[facility]–Barry RoadNEUTROPHILS ABSOLUTE AUTO10.3HighSaint Luke's North Hospital–Barry Road Neutrophils/100 WBC (Bld)75.7 %High43.0 - 75.0 %[facility]–Barry RoadPlatelet mean volume (Bld) [Entitic vol]11.8 fL9.5 - 13.5 fLSaint Luke's North Hospital–Barry RoadTB EO #0.1NOMS [facility] CZI773PSTIKansas City VA Medical Center RBC5.08NOKansas City VA Medical Center WBC13.6HighSaint Luke's North Hospital–Barry RoadCLINISYNCNFreeman Neosho HospitalHCG ( test) Ql (U)on 12-05-2024 Interpretation and review of laboratory resultsAbnoDepartment of Veterans Affairs Medical Center-EriePreg Test, UrPositiveNegativeUNC Health PardeeUS OB TRANSVAGINALon 12-05-2024 US OB TRANSVAGINALEXAM: US [...] II, MD, PHD at 06-Dec-2024 08:41:12 AM [facility] TeleradiologyNormalNot AvailableComment on above:Order Comment: US OB TRANSVAGINAL No LMP recorded.Urinalysis macro (dipstick) panel (U)on 31-28-1360Avjjueqvk, UA NegativeNegative - 4(70) +++ mg/dLNOMS HealthcareBlood, UANegativeNegative - 50 Cj/[facility] Heights Medical CenterNOME HealthcareClarity, UAClearNOME HealthcareColor, UAYellowNOME HealthcareGlucose, UANegativeNegative - 2000(110) ++++ mg/dLNOME Healthcare Interpretation and review of laboratory resultsAbnormalNOME HealthcareKetones, UANegativeNegative - 160(16) ++++ mg/dLNOME HealthcareLeukocytes, UAPositive Negative - 500+++ Cosmo/[facility]ck[facility] Heights Medical CenterNOME HealthcareNitrite, UANegativeNegative - Positive NOMS HealthcarepH, UA75 - 9NOMS HealthcareProtein, UAPositiveNegative - 2000(20) ++++ mg/dLNOMS HealthcareSpec Grav, UA1.021 - 1.03NOMS HealthcareUrobilinogen, UA1.00.2 - 12 mg/dLNOME HealthcareNOMS HealthcareCORTISOL 24HR URINEon 15-26-1200Bdywwtjp,F,ug/24hr,U26 ug/24 hrNormal6-42L[facility] HospitalComment on above:Performed By: #### CORT24 #### [facility] [address] [address] [address] Lucretia ZamudioCortisol,F,ug/L,U10 ug/LNormalUndefinedThe [facility] Comment on above:Performed By: #### CORT24 #### [facility] [address] [address] [address] Lucretia ZamudioCT ABDOMEN WO/W CONon 15-02-6549SC ABDOMEN WO/W CONCLINICAL HISTORY: Blood chemistry abnormal. [...] Electronically authenticated by: YOVANY CLARK Date: 2022-08-27 08:37[facility] SERUMon 49-13-3259Iwbnmqikowxuccxjrecyhb (DHEA)1255 ng/dL Critically yqcz50-310Jlb [facility] CenterComment on above:Result Comment: Age 1 - 5 years 0 - 67 6 - 7 years 0 - 110 8 - 10 years 0 - 185 11 - 12 years 0 - 201 13 - 14 years 0 - 318 15 - 16 years 39 - 481 17 - 19 years 40 - 491 >19 years 31 - 701Performed By: #### DHEA. #### [facility] [address] [place] [address] Dr. Lucretia ZamudioTESTOSTERONE, FREE,DIRECT, TOTALon 42-31-2436Bzky Testosterone(Direct)2.8 pg/mLNormal0.0-4.2L[facility] HospitalComment on above: Result Comment: Performed at: BNPerformed By: #### TESTFRD #### [facility] [address] [place] [address] Dr. Lucretia ZamudioTestosterone [Mass/Vol]42 ng/hJVoiofn90-89Kex [facility] Comment on above:Result Comment: Performed at: CBPerformed By: #### TESTFRD #### [facility] [address] [place] [address] Dr. Lucretia ZamudioCORTISOL Shiv 85-79-2154Mszituho AM23.4 ug/dLCritically high 6.2-19.4The [facility] CenterComment on above:Performed By: #### PROGES #### [facility] [address] [place] [address] Dr. Lucretia ZamudioDHEA-SULFATEon 66-31-1721GKDA-Saxzhuu138.0 ug/pHOgzzhg53.8-378.0 The [facility] CenterComment on above:Performed By: #### LBCLH #### [facility] [address] [place] [address] Dr. Lucretia VergaraTRADIOLon 49-08-6108Nbqlwenfi293.0 pg/mLNormalThe [facility] CenterComment on above:Result Comment: Adult Female: Follicular phase 12.5 - 166.0 Ovulation phase 85.8 - 498.0 Luteal phase 43.8 - 211.0 Postmenopausal <6.0 - 54.7 1st trimester 215.0 - >4300.0 Dona ECLIA methodologyPerformed By: #### ESTRADI #### [facility] [address] [place] [address] Dr. Lucretia TanHon 20-77-7212EPT7.0 mIU/mLNormalLancaster Municipal HospitalComment on above:Result Comment: Adult Female: Follicular phase 3.5 - 12.5 Ovulation phase 4.7 - 21.5 Luteal phase 1.7 - 7.7 Postmenopausal 25.8 - 134.8Performed By: #### LBCFSH #### [facility] [address] [place] [address] Dr. Lucretia ZamudioLUTEINIZING HORMONE (LH)on 40-54-1811EE3.7 mIU/mLNMemorial Health System Selby General HospitalComment on above:Result Comment: Adult Female: Follicular phase 2.4 - 12.6 Ovulation phase 14.0 - 95.6 Luteal phase 1.0 - 11.4 Postmenopausal 7.7 - 58.5Performed By: #### LBCLH #### [facility] [address] [place] [address] Dr. Lucretia ZamudioPROGESTERONEon 33-62-2511Qzztwhikdxxr1.2 ng/mLNMemorial Health System Selby General HospitalComment on above:Result Comment: Follicular phase 0.1 - 0.9 Luteal phase 1.8 - 23.9 Ovulation phase 0.1 - 12.0 First trimester 11.0 - 44.3 Second trimester 25.4 - 83.3 Third trimester 58.7 - 214.0 Postmenopausal 0.0 - 0.1Performed By: #### PROGES #### [facility] [address] [place] [address] Dr. Lucretia ZamudioFREE T4on 56-70-6767Fawr T4 [Mass/Vol]1.13 ng/dLNormal0.76-1.46 [facility] HospitalComment on above:Performed By: #### FT4 #### [facility] [address] [place] [address] Dr. Lucretia ZamudioGLYCOHEMOGLOBIN A1Con 04-61-3827SNW RECOMMENDATIONSEE BELOWNormal [facility] HospitalComment on above:Result Comment: ADA RECOMMENDED LIMIT 4.0 - 6.0 ADA THERAPEUTIC TARGET < 7.0 ACTION SUGGESTED > 7.0Performed By: #### PROGES #### [facility] [address] [place] [address] Dr. Lucretia ZamudioGlucose [Mass/Vol]105 mg/dLNormalThSt. Vincent HospitalComment on above:Performed By: #### PROGES #### [facility] [address] [place] [address] Dr. Lucretia ZamudioHbA1c (Bld) [Mass fraction]5.3 %Normal4.5-6.2The [facility] Medical Centerment on above:Performed By: #### PROGES #### [facility] [address] [place] [address] Dr. Lucretia ZamudioTSHon 05-44-8514XGL4.971 uIU/mLNormal0.358-3.740The [facility] CenterComment on above:Performed By: #### TSH #### [facility] [address] [place] [address] Dr. Lucretia ZamudioUS PELVIS AND TRANSVAGon 03-73-8114FA PELVIS AND TRANSVAG EXAMINATION: US PELVIS AND [...] authenticated by: GIA PRESCOTT Date: 2022-08-02 18:42NormalThe [facility] CenterAMYLASEon 43-54-3254Ydpdcif [Catalytic activity/Vol]50 U/L Stdrsd38-256Cgs [facility] on above:Performed By: #### PROGES #### [facility] [address] [place] [address] Dr. Lucretia ZamudioCBC AUTO DIFFon 21-63-9916OSYT #0.1 103/ulNormal0.0-0.1The [facility] on above:Performed By: #### CBC #### [facility] [address] [address] [address] Lucretia ZamudioBasophils/100 WBC (Bld)0.9 %Normal0.2-2.0The [facility] Comment on above:Performed By: #### CBC #### [facility] [address] [place] [address] Dr. Lucretia Lynne #0.4 103/ulNormal0.0-0.7The [facility] CenterComment on above: Performed By: #### CBC #### [facility] [address] [place] [address] Dr. Lucretia Huntosinophils/100 WBC (Bld)3.4 %Normal0.9-7.0The [facility] Comment on above:Performed By: #### CBC #### [facility] [address] [place] [address] Dr. Lucretia Huntrythrocyte distribution width (RBC) [Ratio]12.7 %Sdiewm31.0-15.0 The [facility] CenterComment on above:Performed By: #### CBC #### [facility] [address] [place] [address] Dr. Lucretia ZamudioHematocrit (Bld) [Volume fraction]44.1 %Vnuddm96.0-48.0The [facility] CenterComment on above:Performed By: #### CBC #### [facility] [address] [place] [address] Dr. Lucretia ZamudioHemoglobin (Bld) [Mass/Vol]14.5 g/pEOcqtkt45.0-16.0The [facility] CenterComment on above:Performed By: #### CBC #### [facility] [address] [place] [address] Dr. Lucretia Gomez #0.03 10e3/ulNormal0.00-0.03The [facility] CenterComment on above:Performed By: #### CBC #### [facility] [address] [place] [address] Dr. Lucretia Gomez %0.3 %Normal0.0-0.5The [facility] CenterComment on above: Performed By: #### CBC #### [facility] [address] [address] [address] Lucretia Brush #2.9 103/ulNormal1.2-3.8The [facility] CenterComment on above:Performed By: #### CBC #### [facility] [address] [address] [address] Lucretia Worthingtonmphocytes/100 WBC (Bld)24.9 %Pmbtdx55.5-60.0The [facility] CenterComment on above:Performed By: #### CBC #### [facility] [address] [place] [address] Dr. Lucretia Krishnan DIFF REQNONormalThe [facility] CenterComment on above: Performed By: #### CBC #### [facility] [address] [place] [address] Dr. Lucretia Simmons (RBC) [Entitic mass]28.9 sySzegrt81.7-34.0The [facility] CenterComment on above:Performed By: #### CBC #### [facility] [address] [place] [address] Dr. Lucretia Simmons (RBC) [Mass/Vol]32.9 g/oTWebprl84.9-35.2The [facility] CenterComment on above:Performed By: #### CBC #### [facility] [address] [place] [address] Dr. Lucretia Simmons (RBC) [Entitic vol]87.8 iAMcroqb44.0-99.0The [facility] CenterComment on above:Performed By: #### CBC #### [facility] [address] [place] [address] Dr. Lucretia Lemus #0.6 103/ulNormal0.3-0.8The [facility] CenterComment on above:Performed By: #### CBC #### [facility] [address] [place] [address] Dr. Lucretia Manzoocytes/100 WBC (Bld)5.4 %Normal1.7-12.0The [facility] Comment on above:Performed By: #### CBC #### [facility] [address] [address] [address] Lucretia Waterman #7.6 103/ulCritically high1.4-6.5The [facility] Comment on above:Performed By: #### CBC #### [facility] [address] [place] [address] Dr. Lucretia Wagnerutrophils/100 WBC (Bld)65.1 %Yifwbz88.0-75.0The [facility] CenterComment on above:Performed By: #### CBC #### [facility] [address] [place] [address] Dr. Lucretia ZamudioPlatelet mean volume (Bld) [Entitic vol]10.0 fLNormal9.5-13.5The [facility] CenterComment on above:Performed By: #### CBC #### [facility] [address] [place] [address] Dr. Lucretia ZamudioPLT277 103/loJqvyoi357-576Ocz [facility] CenterComment on above: Performed By: #### CBC #### [facility] [address] [place] [address] Dr. Lucretia ZamudioRBC5.02 106/ulNormal4.20-5.40The [facility] CenterComment on above:Performed By: #### CBC #### [facility] [address] [place] [address] Dr. Lucretia ZamudioWBC11.6 103/ulCritically high4.0-11.0The [facility] CenterComment on above:Performed By: #### CBC #### [facility] [address] [place] [address] Dr. Lucretia ZamudioCULTZA URINEon 65-70-0456RNLPGSB URINECulture Observations: LIGHT GROWTH OF MIXED GENITAL SILVIA. NO POTENTIAL PATHOGENS SEEN.NormalThe [facility] CenterComment on above:Performed By: #### PROGES #### [facility] [address] [place] [address] Dr. Lucretia ZamudioLIPASEon 34-83-8073Rlkbjt [Catalytic activity/Vol]85.0 U/LNormal 73.0-393.0The [facility] CenterComment on above:Performed By: #### PROGES #### [facility] [address] [place] [address] Dr. Lucretia Shoemaker QUANT HCGon 38-62-7865MIO QUANT1 mIU/mLNormalThe [facility] CenterComment on above:Performed By: #### PROGES #### [facility] [address] [place] [address] Dr. Lucretia Leyva RANGESEE [facility] SystemComment on above: Result Comment: 5-50 0.2-1 WEEK 50-500 1-2 WEEKS 100-5,000 2-3 WEEKS 500-10,000 3-4 WEEKS 1,000-50,000 4-5 WEEKS 10,000-100,000 5-6 WEEKS 15,000-200,000 6-8 WEEKS 10,000-100,000 2-3 MONTHSPerformed By: #### PROGES #### [facility] [address] [place] [address] Dr. Lucretia ZamudioPROF 14(COMP METB)on 32-62-5752Vocjxwh [Mass/Vol]4.0 g/dLNormal 3.4-5.0The [facility] on above:Performed By: #### PROGES #### [facility] [address] [place] [address] Dr. Lucretia ZamudioAlbumin/Globulin [Mass ratio]1.1 {ratio}NormalThe [facility] on above:Performed By: #### PROGES #### [facility] [address] [place] [address] Dr. Lucretia Brunson [Catalytic activity/Vol]98 U/RBmotcl98-049Yhs [facility] CenterComcorewell health green[facility] hospital on above:Performed By: #### PROGES #### [facility] [address] [place] [address] Dr. Lucretia Mauro [Catalytic activity/Vol]16 U/FIfrqxx01-49Das [facility] on above:Performed By: #### PROGES #### [facility] [address] [place], [place] [id number] Dr. Lucretia Whyte gap [Moles/Vol]9.7 mmol/LNormalThe [facility] CenterComment on above:Performed By: #### PROGES #### [facility] [address] [address] [address] Lucretia ZamudioAST [Catalytic activity/Vol]15 U/VMzzmig74-25Gxc [facility] CenterComment on above:Performed By: #### PROGES #### [facility] [address] [address] [address] Lucretia ZamudioBilirubin [Mass/Vol]0.2 mg/dLNormal0.2-1.0The [facility] Comment on above:Performed By: #### PROGES #### [facility] [address] [place] [address] Dr. Lucretia ZamudioCalcium [Mass/Vol]9.5 mg/dLNormal8.5-10.1The [facility] Comment on above:Performed By: #### PROGES #### [facility] [address] [place] [address] Dr. Lucretia ZamudioChloride [Moles/Vol]102 mmol/JZmmzzh88-010Aje [facility] Comment on above:Performed By: #### PROGES #### [facility] [address] [place] [address] Dr. Lucretia ZamudoiCO2 [Moles/Vol]31.5 mmol/BKfaqah27.0-32.0The [facility] Comment on above:Performed By: #### PROGES #### [facility] [address] [address] [address] Lucretia ZamudioCreatinine [Mass/Vol]0.79 mg/dLNormal0.55-1.02The [facility] CenterComment on above:Performed By: #### PROGES #### [facility] [address] [address] [address] Lucretia Foster-AF WELSH>60Normal>=60The [facility] CenterComment on above:Performed By: #### PROGES #### [facility] [address] [place] [address] Dr. Lucretia HuntGFR-NON AF WELSH>60Normal>=60The [facility] CenterComment on above:Performed By: #### PROGES #### [facility] [address] [place] [address] Dr. Lucretia ZamudioGlobulin (S) [Mass/Vol]3.8 g/dLNormMercy Health Perrysburg HospitalComment on above:Performed By: #### PROGES #### [facility] [address] [place] [address] Dr. Lucretia ZamudioGlucose [Mass/Vol]95 mg/vADiktpv68-590Jgp [facility] Comment on above:Performed By: #### PROGES #### [facility] [address] [place] [address] Dr. Lucretia ZamudioPotassium [Moles/Vol]4.2 mmol/LNormal3.5-5.1The [facility] Comment on above:Performed By: #### PROGES #### [facility] [address] [place] [address] Dr. Lucretia ZamudioProtein [Mass/Vol]7.8 g/dLNormal6.4-8.2The [facility] Comment on above:Performed By: #### PROGES #### [facility] [address] [place] [address] Dr. Lucretia ZamudioSodium [Moles/Vol]139 mmol/SFcxzwo713-759OqwLancaster Municipal Hospital Comment on above:Performed By: #### PROGES #### [facility] [address] [place] [address] Dr. Lucretia ZamudioUrea nitrogen [Mass/Vol]12.0 mg/dLNormal7.0-18.0The [facility] CenterComment on above:Performed By: #### PROGES #### [facility] [address] [place] [address] Dr. Lucretia Gibbs nitrogen/Creatinine [Mass ratio]15.2 mg/mgNormMercy Health Perrysburg HospitalComment on above:Performed By: #### PROGES #### [facility] [address] [place] [address] Dr. Lucretia Pollack RANDOMon 15-19-5179Appejplft Ql (U)NegativeNormalNEGATIVELancaster Municipal HospitalComment on above:Performed By: #### PROGES #### [facility] [address] [address] [address] Lucretia Salesarity (U)CLEARNormalCLEARLancaster Municipal HospitalComment on above: Performed By: #### PROGES #### [facility] [address] [address] [address] Lucretia Cruz (U)LT. YELLOWNormalYELLOWLancaster Municipal HospitalComment on above:Performed By: #### PROGES #### [facility] [address] [address] [address] Lucretia ZamudioGlucose Ql (U)NegativeNormalNEGATIVELancaster Municipal HospitalComment on above:Performed By: #### PROGES #### [facility] [address] [place] [address] Dr. Lucretia ZamudioHemoglobin Ql (U)NegativeNormalNEGATIVEGreene Memorial Hospital on above:Performed By: #### PROGES #### [facility] [address] [place] [address] Dr. Lucretia ZamudioKetones Ql (U)NegativeNormalNEGATIVELancaster Municipal HospitalComment on above:Performed By: #### PROGES #### [facility] [address] [place] [address] Dr. Lucretia ZamudioLEUKOCYTESNegativeNormalNEGATIVELancaster Municipal HospitalComment on above:Performed By: #### PROGES #### [facility] [address] [address] [address] Lucretia ZamudioNitrite Ql (U)NegativeNormalNEGATIVELancaster Municipal HospitalComment on above:Performed By: #### PROGES #### [facility] [address] [address] [address] Lucretia ZamudiopH (U)7.0 [pH]Normal5-9L[facility] HospitalComment on above: Performed By: #### PROGES #### [facility] [address] [address] [address] Lucretia ZamudioSPEC GRAVITY1.073Hraxtw7.005-<=1.025The [facility] CenterComment on above:Performed By: #### PROGES #### [facility] [address] [address] [address] Lucretia Pollack PROTEINNegativeNormalNEGATIVE/ TRACEThe [facility] Comment on above:Performed By: #### PROGES #### [facility] [address] [address] [address] Lucretia Davidbilinogen Qn (U)0.2 {Tommie'U}/dLNormal0.2 - 1.0The [facility] CenterComment on above:Performed By: #### PROGES #### [facility] [address] [address] [address] Lucretia ZamudioPhysical Therapy Noteon 95-31-0678Dcwjvbft Therapy Note [id number]#1.00[facility] Coding Summaryon 85-50-4602Allfdg SummaryHTMLBase 64 NeawyvdgZZw7xTl+PGhlYWQ+MC7KNPJoD65rjPDwdT8KF1fCHR6YHMTAACXVUJ4VTL3qzCK7XUzhI5Qy biAv [file] PSd (more content not included)...[facility] HospitalProvider Orderson 83-49-2404Zuwvyqhf [id number]#1.00OTWyandot Memorial HospitalConsent Formson 19-93-5856Oynxmam Forms [id number]#1.00[facility] Physical Therapy Noteon 23-84-1460Vcwggznp Therapy Note [id number]#1.00[facility] Provider Orderson 77-79-2117Jbuelbwg Orders [id number]#1.00[facility] Coding Summaryon 77-97-3434Rlvbhw SummaryHTMLBase 64 TdyvnymnZEi8iNc+PGhlYWQ+MO6FRNUyY00flUOiwW0LX6rRYW3TOUHPWSXWKB9QQN5nvAN9MCunF2Za biAv [file] PSd (more content not included)...[facility] HospitalRad - MRI Reporton 99-32-9832Qbu - MRI [id number]#1.00OTGTIFF [facility] Vital Signs Date TimeVital SignValuePerforming CssquadqiXsianebj42-18-6409 13:19-0400Body mass index (BMI) [Ratio]34.36 kg/x9Kyvqx Angel DO Work Phone: 1(503)015-[address] [place], [place] [address]Hunzssotuh51-56-1546 13:19-0400Body .51 kgCorey Angel DO Work Phone: 1(269)732-[address] [place], [place] [address]Nalvkjmhwa30-62-7253 13:19-0400Diastolic blood npdetqua57 mm[Hg]Junito Angel DO Work Phone: 1(499)[address] [place], [place] [address]Cacxyvgbtu13-79-4176 13:19-0400Systolic blood qtzcetvl937 mm[Hg]Junito Angel DO Work Phone: 8(582)997-[address] [place], [place] [address]Jnufetbfev63-12-0646 14:29-0400Body mass index (BMI) [Ratio]33.15 kg/k3Dfyvo Angel DO Work Phone: 1(721)[address] [place], [place] [address]Jgkebewfqz56-17-9602 14:29-0400Body inahrq74.88 kgCorey Angel DO Work Phone: [phone])207[facility] RoadQpbakiupgc38-72-0163 14:29-0400Diastolic blood mm[Hg]Junito Angel DO Work Phone: [phone] [place], [place] [address]Ytrdxuulkn18-09-9857 14:29-0400Systolic blood dxoddsbz553 mm[Hg]Junito Angel DO Work Phone: 1(563)801-[facility]–Barry RoadFdfpqzyiri36-82-1996 10:06-0400Body mass index (BMI) [Ratio]31.75 kg/v0ScvqyhnhInna Kirkland TRANSPORTATION DEPARTMENT SUPERVISOR Work Phone: 1(400)750-[address] [place], [place] [address]Vkxciymyrb64-26-1641 10:06-0400Body gyxgkg21.71 kgInna Kirkland TRANSPORTATION DEPARTMENT SUPERVISOR Work Phone: 1(820)689-[address] [place], [place] [address]Zsncrmjgmj42-46-2819 10:06-0400Diastolic blood xlcuzoxq77 mm[Hg]Inna Kirkland TRANSPORTATION DEPARTMENT SUPERVISOR Work Phone: 1(252)488-[address] [place], [place] [address]Qlyyjhmtic27-92-9974 10:06-0400Systolic blood uocerhyl829 mm[Hg]Inna Kirkland TRANSPORTATION DEPARTMENT SUPERVISOR Work Phone: 1(813)[facility] [place], [place] [address]Vpenwfombr28-32-2899 14:59-0400Body mass index (BMI) [Ratio]30.99 kg/f7Bnxta Angel DO Work Phone: 1(839)[facility] [place], [place] [address]Wqvytbfuso81-57-5834 14:59-0400Body fzofuv78.44 kgCorey Angel DO Work Phone: 1(326)[facility] [place], [place] [address]Trxeclulty25-02-7668 14:59-0400Diastolic blood gipphpan87 mm[Hg]Junito Angel DO Work Phone: 1(937)[facility] [place], [place] [address]Cxejwxbkop95-33-7035 14:59-0400Systolic blood kjbzibvj159 mm[Hg]Junito Angel DO Work Phone: 1(035)[address] [place], [place] 0643806-25-2025 13:39-0400Body mass index (BMI) [Ratio]29.73 kg/f1Pxjdf Angel DO Work Phone: 1(234)[address] [place], [place] 0643806-25-2025 13:39-0400Body ksbatg65.68 kgCorey Angel DO Work Phone: 1(122)[facility] [place], [place] [address]Kdicrcnumd01-80-8725 13:39-0400Diastolic blood cxtvtyaw39 mm[Hg]Junito Angel DO Work Phone: 1(430)[facility] [place], [place] [address]Tegyejfxcn61-98-6185 13:39-0400Systolic blood ybbrsvrm850 mm[Hg]Junito Angel DO Work Phone: 1(254)[address] [place], [place] 0643807-02-2024 12:30-0400Body dumcfq233.45 cmAPRYamilka Crocketterwhit Work Phone: 1(910)[address] [place], [place] 9837307-02-2024 12:30-0400 Body mass index (BMI) [Ratio]31.6 kg/m2YANELI Crocketterwhit Work Phone: 1(628)[address] [place], [place] 9837307-02-2024 12:30-0400 Body uhhrojyqalm06.8 [degF]YANELI Crocketterwhit Work Phone: 1(581)[address] [place], [place] 9837307-02-2024 12:30-0400 Body styupa58.98 kgYANELI Ding Work Phone: 1(597)[address] [place], [place] 9837307-02-2024 12:30-0400 Diastolic blood lhnxxrom26 mm[Hg]YANELI Crocketterwhit Work Phone: 1(501)[address] [place], [place] 9837307-02-2024 12:30-0400 Heart rate69 /minYANELI Crocketterwhit Work Phone: 1(246)[address] [place], [place] 9837307-02-2024 12:30-0400 Respiratory rate20 /minYANELI Crocketterwhit Work Phone: 1(547)[address] [place], [place] 9837307-02-2024 12:30-0400 SaO2% (BldA) [Mass fraction]99 %YANELI Crocketterwhit Work Phone: 1(863)[address] [place], [place] 9837307-02-2024 12:30-0400 Systolic blood mm[Hg]YANELI Crocketterwhit Work Phone: 1(249)[address] [place], [place] 9837306-05-2024 08:58-0400 Body .45 [facility]-05-2024 08:58-0400Body mass index (BMI) [Ratio]31.6 kg/l3PnuukerkjSelect Medical Specialty [facility], Inc06-05-2024 08:58-0400Body qaugbe93.98 kgSelect [facility]03-27-2024 11:00-0400Body xjpicv450.45 cm[facility]03-27-2024 11:00-0400Body mass index (BMI) [Ratio]31.6 kg/u7ExyceojxkSelect [facility], [facility]03-27-2024 11:00-0400Body gzpnjetbffk83 [degF][facility]03-27-2024 11:00-0400Body fucsph60.98 kg[facility] 09-19-2023 11:00-0400Diastolic blood ozhkhqwk12 mm[Hg][facility]03-27-2024 11:00-0400Heart rate80 /[facility] 09-19-2023 11:00-0400Respiratory rate20 /[facility] 09-19-2023 11:00-5437PqY2% (BldA) [Mass fraction]98 %[facility]03-27-2024 11:00-0400Systolic blood mm[Hg][facility]03-13-2024 09:42-0400Body otmxfe976.7 Serg DUONGC Work Phone: [facility] [employer] Nvqwew72-12-5620 09:42-0400Body mass index (BMI) [Ratio]30.79 kg/i2WecoerfTy CRISTINA-C Work Phone: [facility] Rwwxqf42-19-7743 09:42-0400Body .85 kgTy CRISTINA-C Work Phone: [facility] Txisig84-57-1969 09:42-0400Diastolic blood oqgivhrj97 mm[Hg]Ty CRISTINA-C Work Phone: [facility] Dxkzqe85-90-1167 09:42-0400Heart rate 73 /minTy CRISTINA-C Work Phone: [facility] [employer] Rgpkgf07-50-6582 09:42-0400Systolic blood cylycsdv187 mm[Hg]Ty CRISTINA-C Work Phone: [facility] Jjfpgi98-22-6562 17:00-0500Body hxmyhy107.45 cmDana Easterwood Other [employer] Other 12-06-2023 08:00-0500Body aakmgh571.45 cmDana Easterwood Other [employer] Other 12-06-2023 08:00-0500Body mass index (BMI) [Ratio] 33.48 kg/m2Dana Bonerrio Other [employer] Other 12-06-2023 08:00-0500Body uerbsmcxhdu47.2 [degF]Nelida Bonerwood Other [employer] Other 12-06-2023 08:00-0500Body crhoxn70.43 kgDana Bonwhit Other [employer] Other 12-06-2023 08:00-0500Diastolic blood wmnqpvdo94 mm[Hg] Nelida Easterwood Other [employer] Other 12-06-2023 08:00-0500Respiratory rate20 /minDana Easterwood Other [employer] Other 12-06-2023 08:00-2592HzE7% (BldA) [Mass fraction]99 % Nelida Easterwood Other [employer] Other 12-06-2023 08:00-0500Systolic blood lulpoovi513 mm[Hg] Nelida Easterwood Other [employer] Other 09-11-2023 10:30-0400Body .45 cmDana Bonerwhit Other [employer] Other 09-11-2023 10:30-0400Body mass index (BMI) [Ratio] 33.33 kg/m2Dana Easterwood Other [employer] Other 09-11-2023 10:30-0400Body fdbigpqlqmv90 [degF]Nelida Easterwood Other [employer] Other 09-11-2023 10:30-0400Body alovbr73.98 kgDana Easterwood Other [employer] Other 09-11-2023 10:30-0400Diastolic blood dfjaioou91 mm[Hg] Nelida Easterwood Other [employer] Other 09-11-2023 10:30-0400Respiratory rate20 /minDana [facility] Other [employer] Other 09-11-2023 10:30-6916QcA8% (BldA) [Mass fraction]99 % Nelida Easterwood Other [employer] Other 09-11-2023 10:30-0400Systolic blood eftjiolb020 mm[Hg] Nelida Easterwood Other [employer] Other 08-30-2023 11:00-0400Body .45 cmDana Easterwood Other [employer] Other 08-30-2023 11:00-0400Body mass index (BMI) [Ratio] 33.48 kg/m2Dana Easterwood Other [employer] Other 08-30-2023 11:00-0400Body xfwmatheuql58.9 [degF]Nelida Ding Other [employer] Other 08-30-2023 11:00-0400Body nwauwk92.43 kgDamanisha Ding Other [employer] Other 08-30-2023 11:00-0400Diastolic blood afwijggi82 mm[Hg] Nelida Ding Other [employer] Other 08-30-2023 11:00-0400Respiratory rate20 /minDjeromy Ding Other [employer] Other 08-30-2023 11:00-8675SmL4% (BldA) [Mass fraction]98 % Nelida Ding Other [employer] Other 08-30-2023 11:00-0400Systolic blood yugxtwvh450 mm[Hg] Nelida Ding Other [employer] Other Encounters Encounter DateEncounter TypeCare ProviderFacilityStart: 64-89-2813fibqrmqniv Inna EbivanlyFacility:[facility] Hospitaltart: 04-29-2025 End: 16-75-2568Urvxxwef flow sheetCorey Angel DO Work Phone: [facility] [place] OBGYNComment on above:Third trimester ([facility] 30 weeks gestation of ([facility])Start: 04-29-2025 End: 38-30-8005rwhzexwnqbGGDZD FAZIONot AvailableStart: 04-22-2025 End: 71-98-2979Qmvkmtqhz Result EncounterCorey Angel DO Work Phone: NOXK External Department UnsolicitedStart: 04-22-2025 End: 40-99-0313Bxbuqnbqi Result EncounterCorey Angel DO Work Phone: noms External Department UnsolicitedStart: 04-15-2025 End: 36-26-4881Shnbfy flowsheetCorey Angel DO Work Phone: NOBW [place] OBGYNStart: 04-15-2025 End: 06-26-0023Tdcfip flowsheetCorey Angel DO Work Phone: NO[facility] [place] OBGYNStart: 04-15-2025 End: 21-47-2270Mcvalwwo flow sheetCorey Angel DO Work Phone: NODI [place] OBGYNComment on above:Third trimester ([facility]); 28 weeks gestation of ([facility]); size inconsistent with dates ([facility]); Racing heart beatStart: 04-15-2025 End: 56-46-3934dzrxcxtqkiESZFW FAZIONot AvailableStart: 04-01-2025 End: 92-36-2274Nazdlwajw Result EncounterInna Kirkland NP Work Phone: [facility] External Department UnsolicitedStart: 04-01-2025 End: 14-98-3469Cvksswefz Result EncounterInna Kirkland NP Work Phone: noms External Department UnsolicitedStart: 03-18-2025 End: 34-28-1645Jqqcwlah flow sheetCorey Angel DO Work Phone: [facility] [place] OBGYNComment on above:Second trimester ([facility]); 24 weeks gestation of ([facility]); Diabetes mellitus screeningStart: 03-18-2025 End: 36-31-8659wcxinirvyuHUFDW FAZIONot AvailableStart: 02-18-2025 End: 16-65-1934Zvozqexo flow sheetInna Kirkland NP Work Phone: [facility] [place] OBGYNComment on above:Nausea and vomiting in ([facility]) (Primary Dx); Second trimester ([facility]); 20 weeks gestation of ([facility]); Elevated heart rate with elevated blood pressure without diagnosis of hypertensionStart: 02-18-2025 End: 05-28-2001asdalkgvoeIPJNUKOJ EBERLYNot AvailableStart: 02-18-2025 End: 97-13-5370qsxypnzfxaXKWRI FAZIONot AvailableStart: 01-14-2025 End: 33-69-8760Edfwzfa encounter procedureCorey Angel DO Work Phone: noms HealthcareStart: 01-14-2025 End: 20-73-9509Cmiwkyby preventive med est patient 18-39 yrsCorey Angel DO Work Phone: [facility] OBComment on above:15 weeks gestation of ([facility]); Second trimester ([facility]); Gastroesophageal reflux disease with esophagitis, unspecified whether hemorrhage; Screening, , for anatomic survey ([facility]); Exposure to STD; Vaginal discharge; Well woman exam with routine gynecological exam; Nausea and vomiting in ([facility]); related fatigue in second trimester ([facility]); Insomnia, unspecified type; Other migraine with status migrainosus, not intractableStart: 01-14-2025 End: 39-96-1146onucvcxrecTNIBS FAZIONot AvailableStart: 01-14-2025 End: 27-82-5839Jvcdjj flowsheetCorey Angel DO Work Phone: noms BCP OBStart: 01-14-2025 End: 50-88-2023Hpadzq flowsheetCorey Angel DO Work Phone: noms BCP OBStart: 01-14-2025 End: 34-42-7228Nbtgkwnks Result EncounterCorey Angel DO Work Phone: noms External Department UnsolicitedStart: 01-14-2025 End: 96-64-1904Drqljyfg Result EncounterCorey Angel DO Work Phone: noms External Department UnsolicitedStart: 12-17-2024 End: 61-87-3439Vofvoh flowsheetCorey Angel DO Work Phone: NOMS BCP OBStart: 12-17-2024 End: 52-46-3540Wnbuvs flowsheetCorey Angel DO Work Phone: NOM[facility] BCP OBStart: 12-17-2024 End: 77-94-0642Sizbojfg flow sheetCorey Angel DO Work Phone: noMS BCP OBComment on above:11 weeks gestation of ([facility]); First trimester ([facility]); Nausea and vomiting in ([facility]); Gastroesophageal reflux disease with esophagitis, unspecified whether hemorrhage; Meconium aspiration in child of prior , currently , unspecified trimester ([facility])Start: 12-17-2024 End: 80-14-8723sttmstbdruRBWXH FAZIONot AvailableStart: 12-10-2024 End: 81-86-7378Joshyshqm Result EncounterCorey Angel DO Work Phone: noms External Department UnsolicitedStart: 12-10-2024 End: 35-68-8628Gcatknkyj Result EncounterCorey Angel DO Work Phone: noMS External Department UnsolicitedStart: 12-05-2024 End: 56-41-6342Xlydmx outpatient visit 5 minutesNoms Bcp Ob Angel NurseNOMS BCP OBComment on above:GA: 0c3tXhonw: 12-05-2024 End: 25-26-0698xgpipddpteMNJHC FAZIONot AvailableStart: 07-03-2024 End: 02-66-8653XrhfwbBmmjbpuYamilex Stratton PA-C Work Phone: [facility] NeurologyComment on above: Migraine without aura and without status migrainosus, not intractableStart: 12-25-2023 End: 36-48-6100rqampaikboNMXF [facility]ida [facility] Work Phone: [facility] Work Phone: Start: 12-25-2023 End: 12-89-1808Lsbkmxr encounter procedureAPRYamilka [facility] Work Phone: [facility] Work Phone: Start: 03-86-8957Fvw-patient / Non-visitYANELI [facility] Work Phone: [facility] Work Phone: Start: 12-05-2023 End: 94-14-7106szgfokyxdaGPDC [facility] Work Phone: [facility] Work Phone: Start: 12-05-2023 End: 86-28-2554Fwhdslty ReferredYANELI Mendoza [facility] Work Phone: [facility] Path Spec [facility] HospStart: 11-28-2023 End: 11-47-7398wdwmeottwnNbdyywstbProMedica Memorial Hospital Work Phone: Start: 11-28-2023 End: 94-01-5183Nuffwja encounter procedureAtrium Health Physician [facility] Work Phone: Start: 09-19-2023 End: 62-15-7447twcoorxtmnEnkspukgkProMedica Memorial Hospital Work Phone: Start: 09-19-2023 End: 44-80-4676Rqdnqou encounter procedureAtrium Health Physician GroupPal[facility] Work Phone: Start: 09-05-2023 End: 13-01-5401fmkncvcpgcZSGILIN C HAMILTONAdena [facility] Centergay [facility] of San Josetart: 09-05-2023 End: 92-38-2493Bglqvk outpatient visit 25 minutesAnthaleksey Stratton PA-C Work Phone: [facility] NeurologyComment on above: Migraine without aura and without status migrainosus, not intractable (Primary Dx); Vestibular migraine; Pineal gland cyst; Hx of concussion; Daytime somnolenceStart: 49-63-9042Uaq-patient / Non-visitFirtonia [facility] [employer] Work Phone: Start: 07-16-2023 End: 98-54-8320dmftoefgjvYgds [facility] Other [employer] Other Start: 16-54-9113Hqgmcwuja encounterDana [facility] Family [facility] Philadelphiaomment on above:WEENING OFF QULIPTAStart: 07-09-2023 Patient encounter procedureBelle Physician Group-Start: 06-06-2023 End: 53-03-3345wlscfncqziEcjd [facility] Other [employer] Other Start: 53-02-1462FX ONLINE E/M JOHAN DICKINSON 05-14Dana [facility] Family [facility] Systemtart: 03-28-4906Mfbztfjvl encounterDana [facility] Systemtart: 05-30-2023 End: 91-78-8556cauignwwrpSbsw [facility] Other [employer] Other Start: 70-38-1729Kqetfw outpatient visit 25 minutes Nelida [facility]art: 05-25-2023 End: 73-57-6062yyyxusvciwCybq [facility] Other [employer] Other Start: 48-33-5677Bnnuhukoc encounterDana [facility] Systemtart: 05-03-2023 End: 98-02-2348zyuxemhrtbHdus [facility] Other [employer] Other Start: 33-53-3468Guxkbixuf encounterDana [facility] Systemtart: 03-05-2023 End: 74-66-1617mfjglbkkxiIqth [facility] Other [employer] Other Start: 75-94-3016Bhqqcd outpatient visit 25 minutes Nelida McSt. Francis HospitalkStart: 02-21-2023 End: 78-16-9261tffbtchcorLxhd [facility] Other [facility] [employer] Other Start: 53-59-0533Bbdgdb outpatient visit 40 minutes Nelida [facility] CenterkStart: 45-24-0221Tvlzlkjdc encounter Nelida [facility] Centertart: 11-01-2022 End: 43-33-9101eyflgnrwvqHR JUNITO ANGEL .Facility:M9Wdsik: 09-06-2022 End: 16-61-3409xfntlzzwknSL JUNITO ANGEL .Facility:Y0Xgswp: 08-26-2022 End: 27-91-3621vmetvzoyplKL JUNITO ANGEL .Facility:R4Vpzfj: 08-02-2022 End: 67-03-3831euldrlxvbdPE JUNITO ANGEL .Facility:O9Lbzhz: 07-12-2022 End: 81-75-4934qidbigdaqoCQ GIA Yocility:H1 Procedures DateProcedureProcedure DetailPerforming ClinicianStart: 68-98-9070Uscjh dip stick/tablet rgnt non-auto w/o micrscpCorey Angel DO Work Phone: Start: 48-53-8938IE ECHO DOPPLER COMPLETECorey Angel DO Work Phone: Start: 81-19-0896MIB 12-LEADCorey Angel DO Work Phone: Start: 05-65-8409Jqmyl dip stick/tablet rgnt non-auto w/o micrscpCorey Angel DO Work Phone: Start: 09-04-4397BRENCDV 1 HOURInna Kirkland TRANSPORTATION DEPARTMENT SUPERVISOR Work Phone: Start: 23-79-8804Zwfvs dip stick/tablet rgnt non-auto w/o micrscpInna Kirkland TRANSPORTATION DEPARTMENT SUPERVISOR Work Phone: Start: 63-74-6060Igjto dip stick/tablet rgnt non-auto w/o micrscpInna Kirkland TRANSPORTATION DEPARTMENT SUPERVISOR Work Phone: Start: 38-88-4041ORFKJMKWL VAGINITIS (HTRX)Junito Angel DO Work Phone: Start: 50-36-1735Durpg dip stick/tablet rgnt non-auto w/o micrscpCorey Angel DO Work Phone: Start: 24-33-6062FTK,APTIMA HPV,AGE GDLNCorey Angel DO Work Phone: Start: 40-19-5322Mrsql dip stick/tablet rgnt non-auto w/o micrscpCorey Angel DO Work Phone: Start: 13-01-1826AJI CBC WITH AUTO DIFFCorey Angel DO Work Phone: Start: 12-05-2024 End: 74-97-4421Jlyfs dip stick/tablet rgnt non-auto w/o micrscpCorey Angel DO Work Phone: Start: 02-75-4416Hmzosj-up visitFollow-Janeth STRATTONStart: 83-48-5646Qaetz depression screening assessmentEncompass Health Rehabilitation [facility] Plan of Treatment DateCare ActivityDetailAuthorStart: 05-13-2025 End: 28-52-6297Jutrtls encounter agesjcqtb16/19/2025 1:20 PM EST Routine NATALIE KEARNS [address] [place], [id number] Nicole Ghosh PA [address] [place] [address] [facility] [place] [facility]BGYNStart: 04-29-2025 End: 96-65-2609Bcezjqg encounter frnzojtzp84/05/2025 1:30 PM EST Routine [facility] [address] [place], [id number] Junito Ortiz, DO [address] [place] [address] [facility] [place] OBGYNStart: 04-29-2025 End: 64-70-8418Rdntuxrpqcog / ancillary services eqakrxdhjc56/05/2025 1:00 PM EST Ancillary Procedure [facility] [address] [place] [id number] [facility] [place] OBGYNStart: 04-15-2025 End: 51-17-3158Uungdlbyecvlsk 2D completeEchocardiogram 2D complete Echocardiography Routine Racing heart beat Expected: 04/15/2025 (Approximate), Expires: 04/15/2027[facility] Work Phone: comment on above:Expected: 04/15/2025 (Approximate), Expires: 04/15/2027Start: 04-15-2025 End: 26-29-5942HH for pregnancyUS OB follow up transabdominal approach Imaging Routine size inconsistent with dates ([facility]) Expected: 04/15/2025, Expires: 08/16/2025[facility] HealthcareComment on above:Expected: 04/15/2025, Expires: 08/16/2025Start: 04-15-2025 End: 72-83-2500Jitcmzn encounter procedureNOMS [place] OBGYNComment on above: ArrivedStart: 03-18-2025 End: 10-48-7654Mglvdjt encounter eybmveiro13/24/2025 2:20 PM EDT Routine [facility] [address] [place], [id number] Junito Ortiz, DO [address] [place] [address] NATALIE [place] OBGYNStart: 03-18-2025 End: 38-23-8527EQL panel - Blood by Automated countCBC Lab Routine Diabetes mellitus screening Expected: 03/18/2025 (Approximate), Expires: 03/18/2026[facility] Work Phone: comment on above:Expected: 03/18/2025 (Approximate), Expires: 03/18/2026Start: 03-18-2025 End: 19-39-3484Rwmselohbrj of glucose 1 hour after glucose challenge for glucose tolerance testGlucose tolerance, 1 hour Lab Routine Diabetes mellitus screening Expected: 03/18/2025 (Approximate), Expires: 03/18/2026[facility] HealthcareComment on above:Expected: 03/18/2025 (Approximate), Expires: 03/18/2026Start: 46-57-3380AJIOP-19 Vaccine ( season)COVID-19 Vaccine ()[facility]: 60-60-8757Enabzdqrf vaccinationSaint [facility] Start: 02-18-2025 End: lead ECGECG 12 lead unit performed ECG Routine Elevated heart rate with elevated blood pressure without diagnosis of hypertension Expected: 02/18/2025 (Approximate), Expires: 02/18/2026[facility] Healthcare Work Phone: comment on above:Expected: 02/18/2025 (Approximate), Expires: 02/18/2026Start: 02-18-2025 End: 56-82-3036Ofmqtve encounter procedureNOMS [facility] OBStart: 02-18-2025 End: 77-05-0616Fduvizfppegu / ancillary services managementNOMS BCP OBStart: 01-14-2025 End: 33-39-1552Vvehddf encounter qrpegfazi15/23/2025 2:40 PM EDT Routine [facility] [address] [place] [id number] Junito Ortiz, DO [address] [place], [place] [id number] [facility] BCP OBStart: 01-14-2025 End: 08-86-7898Fnapb fetoprotein, maternalAlpha fetoprotein, maternal Lab Routine Second trimester ([facility]) Expected: 01/14/2025 (Approximate), Expires: 03/17/2025[facility] HealthcareComment on above:Expected: 01/14/2025 (Approximate), Expires: 03/17/2025Start: 01-14-2025 End: 85-48-2682FE for pregnancyUS OB 14+ weeks anatomy scan Imaging Routine Screening, , for anatomic survey ([facility] [facility]) Expected: 01/14/2025, Expires: 04/16/2025[facility] HealthcareComment on above:Expected: 01/14/2025, Expires: 04/16/2025Start: 12-17-2024 End: 84-85-9819Jxjomls encounter procedureNOKAISER FOUNDATION HOSPITAL OBComment on above:Arrived Start: 12-05-2024 End: 63-24-4891MPS/RhABO/Rh Lab Routine Missed menses , unspecified gestational age ([facility]) Expected: 12/05/2024 (Approximate), Expires: 12/05/2025[facility] HealthcareComment on above:Expected: 12/05/2024 (Approximate), Expires: 12/05/2025Start: 12-05-2024 End: 34-89-9862Nhwtk type and Indirect antibody screen panel - BloodType and screen Lab Routine Missed menses , unspecified gestational age ([facility]) Expected: 12/05/2024 (Approximate), Expires: 12/05/2025[facility] Work Phone: comment on above:Expected: 12/05/2024 (Approximate), Expires: 12/05/2025Start: 12-05-2024 End: 97-61-9317Xdyiy of abuse panel - Urine by Screen methodRapid drug screen, urine Lab Routine , unspecified gestational age ([facility]) Encounter for supervision of normal first in first trimester ([facility]) Expected: 12/05/2024 (Approximate), Expires: 12/05/2025[facility] HealthcareComment on above: Expected: 12/05/2024 (Approximate), Expires: 12/05/2025Start: 12-05-2024 End: 62-04-2071Usyekebfvnt [Mass/volume] in Serum or PlasmaTransferrin Lab Routine Dizzy Lightheaded Expected: 12/05/2024 (Approximate), Expires: 12/05/2025[facility] HealthcareComment on above:Expected: 12/05/2024 (Approximate), Expires: 12/05/2025Start: 69-93-8306Kocbt BMI ScreeningAdult BMI Screening [facility]: 64-18-1440Lxdichl ScreeningTobacco Screening [facility]: 61-13-0524Yaqlr BMI ScreeningAdult BMI Screening [facility]: 71-66-2218Jllpkozyvh ScreeningDepression Screening [facility] SystemStart: 89-05-2078Alfevfr ScreeningTobacco Screening [facility]ertart: 43-24-9535Kfqdzlwcn vaccinationInfluenza Vaccine [facility]: 12-12-2023 End: 86-30-1687Vrhxvfm encounter izaskyvts66/19/2024 9:00 AM EDT Office Visit [facility] [address] [facility] [place] [address] Ty Stratton, ABEBE [address] [place] [address] [facility] Start: 12-06-2023 End: 84-36-6417VF Brain WO contrastMR brain without contrast Imaging Routine Migraine without aura and without status migrainosus, notintractable Vestibular migraine Pineal gland cyst Expected: 12/06/2023 (Approximate), Expires: 09/04[facility] Work Phone: Comment on above:Expected: 12/06/2023 (Approximate), Expires: 09/04/2024Start: 10-31-2023 End: 23-60-0929Wjsyzof encounter yqjihdmlo23/08/2024 8:45 AM EDT Office Visit [facility] [address] [place] [address] Jani Mir MD [address] [place] [address] [facility]ocrinologyStart: 10-24-2023 End: 72-03-5547Rqxgodw encounter jaohujfib88/01/2024 10:00 AM EDT Office Visit [facility] [address] [phone] Megan Lopez APRN-COPYING MACHINE MECHANIC [address] [facility] [address] [place] [address] [facility]/Sleep MedicineStart: 09-05-2023 End: 51-20-7282Eoqtfmn encounter /13/2024 9:30 AM EDT Office Visit [facility] [address] [place] [phone] Ty Stratton PA-C [address] [place] [address] [facility] Start: 08-01-2023 End: 36-01-5040Mgtzqih encounter pxjggndye23/07/2024 10:30 AM EST Office Visit [facility] [address] [place] [address] Jani Mir MD [address] [place] [address] [facility] EndocrinologyStart: 80-61-0954Dighzwoqs vaccinationInfluenza Vaccine [facility] SystemStart: 01-56-2037FWU Vaccines (1 - 3-dose SCDM series)HPV Vaccines (1 - 3-dose SCDM series)[facility] HealthcareStart: 28-03-4025Mbdugnxrp for malignant neoplasm of cervixPap SmearParma Community General Hospital SystemStart: 12-19-2014 DTaP,Tdap and Td Vaccines (1 - Tdap)DTaP,Tdap and Td Vaccines (1 - Tdap) [facility] SystemStart: 39-12-4655Cpdalnsug B Vaccines (1 of 3 - 19+ 3- dose series)Hepatitis B Vaccines (1 of 3 - 19+ 3-dose series)[facility] Start: 07-80-7039Eccpa BMI Follow Up PlanAdult BMI Follow Up PlanParma Community General Hospital SystemStart: 05-48-4458Zlyshgl of varicella vaccinationVaricella Vaccines (1 of 2 - 13+ 2-dose series)[facility] HealthcareStart: 87-14-5012TPcG/Tdap/Td Vaccines (1 - Tdap)DTaP/Tdap/Td Vaccines (1 - Tdap)[facility] HealthcareStart: 97-34-0172NHO Vaccines (1 of 1 - Standard series)MMR Vaccines (1 of 1 - Standard series)[facility] RoadBacteria identified in Urine by CultureUrine culture Microbiology Routine Missed menses Ordered: 12/05/2024[facility] HealthcareComment on above:Ordered: 12/05/2024BC W Auto Differential panel - BloodCBC and differential Lab Routine Missed menses , unspecified gestational age ([facility]) Ordered: 12/05/2024[facility] HealthcareComment on above:Ordered: 12/05/2024 CHLAMYDIA TRACHOMATIS (GENITO/STI)CHLAMYDIA TRACHOMATIS (GENITO/STI) Lab Routine Exposure to STD Ordered: 01/14/2025[facility] HealthcareComment on above:Ordered: 01/14/2025ytology Cervical or vaginal smear or scraping studyPap Smear Pathology and Cytology Routine Well woman exam with routine gynecological exam Ordered: 01/14/2025[facility] HealthcareComment on above:Ordered: 01/14/2025Ferritin [Mass/volume] in Serum or PlasmaFerritin Lab Routine Dizzy Lightheaded Ordered: 12/05/2024[facility] HealthcareComment on above:Ordered: 12/05/2024Hemoglobin A1c/Hemoglobin.total in BloodHemoglobin A1c Lab Routine Missed menses , unspecified gestational age ([facility]) Ordered: 12/05/2024[facility] HealthcareComment on above:Ordered: 12/05/2024Hepatitis B virus surface Ag [Presence] in Serum or Plasma by ImmunoassayHepatitis B surface antigen Lab Routine Missed menses , unspecified gestational age ([facility]) Ordered: 12/05/2024[facility] HealthcareComment on above:Ordered: 12/05/2024Hepatitis C virus Ab [Presence] in Serum or Plasma by ImmunoassayHepatitis C antibody Lab Routine Missed menses , unspecified gestational age ([facility]) Ordered: 12/05/2024[facility] HealthcareComment on above:Ordered: 12/05/2024HIV-1/HIV-2 antigen/antibody combination immunoassayHIV-1 and HIV-2 antibodies Lab Routine Missed menses , unspecified gestational age ([facility]) Ordered: 12/05/2024[facility] HealthcareComment on above:Ordered: 12/05/2024Neisseria gonorrhoeae DNA [Presence] in Unspecified specimen by HANNAH with probe detectionNeisseria gonorrhea DNA probe, direct Lab Routine Exposure to STD Ordered: 01/14/2025[facility] HealthcareComment on above:Ordered: 01/14/2025Reagin Ab [Presence] in Serum by RPRRPR Lab Routine Missed menses , unspecified gestational age ([facility]) Ordered: 12/05/2024[facility] HealthcareComment on above:Ordered: 12/05/2024 Rubella antibody, IgGRubella antibody, IgG Lab Routine Missed menses , unspecified gestational age ([facility]) Ordered: 12/05/2024[facility] HealthcareComment on above:Ordered: 12/05/2024SURESWAB(R) ADVANCED VAGINITIS PLUS, TMASURESWAB(R) ADVANCED VAGINITIS PLUS, TMA Pathology and Cytology Routine Vaginal discharge Ordered: 01/14/2025[facility] Work Phone: comment on above:Ordered: 01/14/2025 Immunizations Immunization DateImmunizationNotesCare HqaswgkpJzjhtjlp92-82-6152ynszenp and diphtheria toxoids, adsorbed, preservative free, for adult use (5 Lf of tetanus toxoid and 2 Lf of diphtheria toxoid)[facility]08-13-2020 tetanus toxoid, reduced diphtheria toxoid, and acellular pertussis vaccine, jigneshDamanisha Ding Other [facility] [employer] Other Payers DatePayer CategoryPayerPolicy [id number] Health [id number] Care Other (unspecified)[facility] [address] ..[id number]3-5932Nuinsxe Health Insurance [id number] Health Insurance [id number] 1.363850.3.57[id number] ..1.917594.3.57[id number] ..1.430593.3.57[id number] 2..1.052818.3.57[id number] 2..1.255838.3.57[id number] 2.16.840.1.484857.3.57[id number] 2.16.840.1.137350.3.57[id number] 2.16.840.1.970361.3.57[id number] 2.16.840.1.401095.3.57[id number] 2.16.840.1.276726.3.57[id number] 2.16.840.1.094939.3.57[id number] 2..840.1.667237.3.57[id number] 2.16.840.1.012066.3.57[id number] 2.16.840.1.803610.3.57[id number] 2.16.840.1.013246.3.57[id number] 2.840.1.919388.3.57[id number] 2.840.1.625701.3.579.2.824627-03-0551Afslrwo Health [id number] Private Health InsuranceMain Campus Medical [id number] 2.840.1.743098.3.579.2.531 Social History DateTypeDetailFacilityStart: 12-19-2019 End: 43-03-3430Fkf Assigned At [facility] [employer] Other Start: 09-03-2023 End: 60-44-9680Vupibzs smoking status NHISNever smoked tobacco (finding) [facility]: 78-64-9400Euz Assigned At [facility] CharlotteFeC[facility] Clinic Eucl[facility] Hospitaltart: 03-21-2023 End: 67-76-9662Gjpwial use and exposureSmokeless tobacco non-userPar[facility] Hospital SystemStart: 09-05-2023 End: 21-66-8208Xrehcvyqt beverage intakeCurrent drinker of alcohol (finding) [facility] [employer] [facility] Centertart: 12-19-2019 End: 28-54-3455Vblcjnv of Social functionKettering Health DaytonHow often to you have a drink containing alcohol?NeverNovant Health K[facility] Medical Centertart: 09-06-2022 Average Number of DrinksNot on [facility] Centertart: 03-21-2023 Alcohol CommentsocialNovant Health Kernersville Medical Centertart: 66-29-5447Xcq assigned at [facility] systemNot on [facility] Centertart: 82-95-4876SioAtvvrr (finding) [facility] Centertart: 61-60-5842Nluvdmp CommentOne drink per monthSaint Luke's North Hospital–Barry RoadStart: 09-83-8316PxjwkpbjeLOJX Healthcare Clinical Notes 02-04-2020 to 04-29-2025 Note Date & OruqHrfvYuwkmydi74-49-1066 History of Present illness Narrative* Inna Kirkland [...] Problems Diagnosis Date Noted Positive urine test ([facility]) 12/03/2024 Resolved Ambulatory Problems Diagnosis Date [...] nursing note reviewed. Exam conducted with a reporting process consultant present. Vitals: Estimated body mass index is 34.36 kg/m as calculated from the following: Height as of 01/23/24: 5' 8 . Weight as of 04/15/25: 226 lb. BP: Patient's last menstrual period was 09/28/2024. Assessment/Plan ICD-10-CM 1. Third trimester ([facility]) Z34.93 2. 30 weeks gestation of ([facility]) Z3A.30 POCT urinalysis dipstick manually resulted [...] of: Junito Ortiz DO documented in this encounterSaint Luke's North Hospital–Barry RoadJbebkcyadw00-42-9040 History of Present illness Narrative* Saumya Simmons [...] Problems Diagnosis Date Noted Positive urine test ([facility]) 12/03/2024 Resolved Ambulatory Problems Diagnosis Date [...] nursing note reviewed. Exam conducted with a reporting process consultant present. Vitals: Estimated body mass index is 33.15 kg/m as calculated from the following: Height as of 01/23/24: 5' 8 . Weight as of 03/18/25: 218 lb. BP: Patient's last menstrual period was 09/28/2024. Assessment/Plan ICD-10-CM 1. Third trimester ([facility]) Z34.93 2. 28 weeks gestation of ([facility]) Z3A.28 POCT urinalysis dipstick manually resulted [...] of: Junito Ortiz DO documented in this encounterSaint Luke's North Hospital–Barry RoadZqxnvvpqup13-03-7807 History of Present illness Narrative* Ariadna Bowden [...] Problems Diagnosis Date Noted Positive urine test ([facility]) 12/03/2024 Resolved Ambulatory Problems Diagnosis Date [...] nursing note reviewed. Exam conducted with a reporting process consultant present. Vitals: Estimated body mass index is 33.15 kg/m as calculated from the following: Height as of 01/23/24: 5' 8 . Weight as of this encounter: 218 lb. BP: 122/70 Patient's last menstrual period was 09/28/2024. ASSESSMENT & PLAN ICD-10-CM 1. Second trimester ([facility]) Z34.92 POCT urinalysis dipstick manually resulted 2. 24 weeks gestation of ([facility]) Z3A.24 3. Diabetes mellitus screening Z13.1 [...] of: Junito Ortiz DO documented in this encounterSaint Luke's North Hospital–Barry RoadPritypneji75-14-5930 History of Present illness Narrative* Inna Kirkland [...] Problems Diagnosis Date Noted Positive urine test ([facility]) 12/03/2024 Resolved Ambulatory Problems Diagnosis Date [...] nursing note reviewed. Exam conducted with a reporting process consultant present. Vitals: Estimated body mass index is 31.75 kg/m as calculated from the following: Height as of 24: 5' 8 . Weight as of this encounter: 208 lb 12.8 oz. BP: 116/70 Patient's last menstrual period was 09/28/2024. ASSESSMENT & PLAN ICD-10-CM 1. Nausea and vomiting in ([facility] O21.9 promethazine (Phenergan) 12.5 MG tablet 2. Second trimester ([facility]) Z34.92 POCT urinalysis dipstick manually resulted 3. 20 weeks gestation of ([facility]) Z3A.20 POCT urinalysis dipstick manually resulted 4. [...] of: Inna Kirkland NP documented in this encounterSaint Luke's North Hospital–Barry RoadEqgptnnqii82-18-7133 History of Present illness Narrative* Saumya Simmons [...] Problems Diagnosis Date Noted Positive urine test ([facility]) 12/03/2024 Resolved Ambulatory Problems Diagnosis Date Noted [...] nursing note reviewed. Exam conducted with a reporting process consultant present. Vitals: Estimated body mass index is 30.99 kg/m as calculated from the following: Height as of 7/31/24: 5' 8 . Weight as of this encounter: 203 lb 12.8 oz. BP: 110/70 Patient's last menstrual period was 09/28/2024. ASSESSMENT & PLAN ICD-10-CM 1. 15 weeks gestation of ([facility]) Z3A.15 POCT urinalysis dipstick manually resulted 2. Second trimester ([facility]) Z34.92 POCT urinalysis dipstick manually resulted Alpha fetoprotein, maternal Alpha fetoprotein, maternal 3. Gastroesophageal reflux disease with esophagitis, unspecified whether hemorrhage K21.00 4. Screening, , for anatomic survey ([facility]) Z36.89 US OB 14+ weeks anatomy scan US OB 14+ weeks anatomy scan 5. Exposure to STD Z20.2 CHLAMYDIA TRACHOMATIS (GENITO/STI) Neisseria gonorrhea DNA probe, direct 6. Vaginal discharge N89.8 SURESWAB(R) ADVANCED VAGINITIS PLUS, TMA 7. Well woman exam with routine gynecological exam Z01.419 Pap Smear Return OB/Annual Exam: Patient presents today for a annual exam/routine obstetrics appointment. Patient is currently 53i1cbblnumzf. Patient states she is doing well but [...] of: Junito Ortiz DO documented in this encounterSaint Luke's North Hospital–Barry RoadRuukvajqbz82-63-3910 History of Present illness Narrative* Saumya Simmons [...] Problems Diagnosis Date Noted Positive urine test ([facility]) 12/03/2024 Resolved Ambulatory Problems Diagnosis Date [...] nursing note reviewed. Exam conducted with a reporting process consultant present. Vitals: Estimated body mass index is 29.73 kg/m as calculated from the following: Height as of 01/23/24: 5' 8 . Weight as of this encounter: 195 lb 8 oz. BP: 110/62 Patient's last menstrual period was 09/28/2024. ASSESSMENT & PLAN ICD-10-CM 1. 11 weeks gestation of ([facility]) Z3A.11 POCT urinalysis dipstick manually resulted 2. First trimester ([facility]) Z34.91 3. Nausea and vomiting in ([facility]) O21.9 4. Gastroesophageal reflux disease with esophagitis, unspecified whether hemorrhage K21.00 pantoprazole (Protonix) 40 MG EC tablet 5. Meconium aspiration in child of prior , currently , unspecified trimester ([facility]) O09.299 New OB: Patient presents today [...] or undercooked meat, and stay away from [facility]. Patient has been consulted regarding any further do's and don'ts of . Patient voiced understanding and all questions and concerns were answered. Orders Placed This Encounter Procedures POCT urinalysis dipstick manually resulted Follow Up: Patient is to return in 4 weeks for routine OB appointment. Documented by Saumya Simmons LPN on behalf of: Junito Ortiz DO documented in this encounterSaint Luke's North Hospital–Barry RoadGiafvoacrb71-52-7088 History of Present illness Narrative* Carissa Castro, INTERNATIONAL AFFAIRS VICE PRESIDENT - 12/05/2024 10:00 AM EDT Reason for [...] Problems Diagnosis Date Noted Positive urine test ([facility]) 12/03/2024 Resolved Ambulatory Problems Diagnosis Date [...] dipstick manually resulted , unspecified gestational age ([facility]) - Type and screen; Future - ABO/Rh; Future - CBC and differential - Hemoglobin A1c - RPR - Rubella antibody, IgG - Hepatitis B surface antigen - Hepatitis C antibody - HIV-1 and HIV-2 antibodies - Rapid drug screen, urine; Future Encounter for supervision of normal first in first trimester ([facility]) - Rapid drug screen, urine; Future [...] or undercooked meat, and stay away from [facility]. Patient has also been advised to [...] by: Carissa Castro LPN documented in this encounterSaint Luke's North Hospital–Barry RoadDowydswdxc70-92-4291 Evaluation note* Author Jake Fitzgerald [facility], IncAuthoredTransylvania Regional Hospital 2023 9:29amPatient positive for intermittent nausea occurring once or twice monthly patient does note slight appetite changes however this is minimal patient did report periods of weight loss however patient has maintained her weight for many months at this point. Patient is negative for hematemesis, abdominal pain and family history of esophageal and gastric cancer. [facility] Work Phone: 1(507) 715-239703-13-2024 History of Present illness Narrative* Ty Stratton PA-C - 09/05/2023 9:30 AM EDT [facility] Office Note 09/05/2023 8:59 AM Patient info: Nathaniel Bob is a 27 y.o. female Account No.: [id number] Acct: : 1995 PCP: IVON Wadsworth Chief [...] small cyst. CT Head recently completed at [facility] (February,) - reportedly was normal but results [...] concussion at age 6 (-) hx of TUR[place] PICKER infection: (-) hx of stroke/cerebrovascular malformation: [...] without aura, often with associated vestibular symptoms. Pbuy-fv-topgktmw PEREZ's are often present upon waking, while [...] Stratton PA-C 09/06/23 0832 documented in this encounterAdena Pike Medical CenterishBowl [facility] FlintTrigsz35-70-5713 Miscellaneous Notes* Telephone Encounter - Viviane Jamison [...] refill again. Please advise and contact patient [phone] * Telephone Encounter - Aimee Lombardo CMA [...] informed and voiced understanding. [facility] [facility] Avlbro38-75-0345 Telephone encounter Note* Telephone Encounter - Viviane [...] refill again. Please advise and contact patient [phone] [facility] [employer] Tqgidm03-14-8688 Telephone encounter Note* Telephone Encounter - Aimee Lombardo CMA - 07/16/2023 12:39 PM EST The patient is currently taking 60 mg 1 tab in the am of Qulipta. The patient was last seen in clinic 05/23/2023 and is scheduled to follow up 09/05/2023. [facility] Charles HospitalInango Systems Ltd Zftrtc53-51-9735 Telephone encounter Note* Telephone Encounter - Ty Stratton PA-C - 07/16/2023 12:39 PM EST Take 1/2 tablet daily for 6 days, then Discontinue. - [facility] [employer] Oisumu06-12-0941 Telephone encounter Note* Telephone Encounter - Yelitza Pickens RN - 07/16/2023 12:39 PM EST Patient informed and voiced understanding. [facility] Charles HospitalLivelyFeedQcnppr14-08-2753 Evaluation note* Encounter Date Diagnosis Assessment Notes [...] albuterol. Continue to monitor closely. Can take fnwh-bkx-hkpqqqc medication for symptom relief. Exercise conservative measures, [...] that were not corrected during review process. [employer] Other 12-06-2023 Evaluation note* Encounter Date Diagnosis [...] that were not corrected during review process. [employer] Other 09-11-2023 Evaluation note* Encounter Date Diagnosis [...] that were not corrected during review process. [employer] Other 08-30-2023 Evaluation note* Encounter Date Diagnosis [...] will also forward these to endocrinology through [facility] [employer]. Jan,Elevated cortisol level (ICD-10 - E27.0)Extensive lab [...] also forward these to endocrinology through [facility]. Jan,Nausea (ICD-10 - R11.0)I would like her [...] and is agreeable. We will refer to [facility] neurology so the same electronic [...] and is agreeable. We will refer to [facility] neurology so the same electronic [...] that were not corrected during review process. [employer] Other 02-22-2022 Note [id number]#1.00[facility]10-15-2021 [id number]#1.00[facility] 02-04-2020 History general Narrative - Reported* Type Description Date Medical History Anxiety Medical HistoryDepressionMedical HistorySeasonal allergiesHospitalization HistoryChildbirth02/04/2020Hospitalization BoqtgypTsldwtrshm97/15/2021 [facility] [employer] Other Evaluation noteNo InformationNortDelaware County Memorial Hospital [employer] Other Evaluation noteNo assessment information available [facility] Work Phone: Evaluation note* Diagnosis Onset Date Resolution Status Acid reflux acuteAnxietyacuteMigrainesacuteNauseaacute [facility] Work Phone: Evaluation note* Diagnosis Migraine without aura and without status migrainosus, not intractable documented in this encounter [facility] SystemEvaluation [facility]* Diagnosis Migraine without aura and without status migrainosus, not intractable- Primary Vestibular migraine Pineal gland cyst Other specified endocrine disorders Hx of concussion Daytime somnolence documented in this encounter [facility] SystemEvaluation [facility]* Diagnosis Missed menses , unspecified gestational age ([facility]) Encounter for supervision of normal first in first trimester ([facility]) Dizzy Dizziness and giddiness Lightheaded Dizziness and giddiness documented in this encounter [facility] HealthcareEvaluation note* Diagnosis 11 weeks gestation of ([facility]) First trimester ([facility]) state, incidental Nausea and vomiting in ([facility]) Unspecified vomiting of , unspecified as to episode of care Gastroesophageal reflux disease with esophagitis, unspecified whether hemorrhage Meconium aspiration in child of prior , currently , unspecified trimester ([facility]) documented in [facility] encounter [facility] Diagnosis 15 weeks gestation of ([facility]) Second trimester ([facility]) state, incidental Gastroesophageal reflux disease with esophagitis, unspecified whether hemorrhage Screening, , for anatomic survey ([facility]) Encounter for anatomic survey Exposure to STD Vaginal discharge Leukorrhea, not specified as infective Well woman exam with routine gynecological exam Routine gynecological examination Nausea and vomiting in ([facility]) Unspecified vomiting of , unspecified as to episode of care related fatigue in second trimester ([facility]) Insomnia, unspecified type Other migraine with status migrainosus, not intractable documented in this encounter [facility]* Diagnosis Nausea and vomiting in ([facility] Primary Unspecified vomiting of , unspecified as to episode of care Second trimester ([facility]) state, incidental 20 weeks gestation of ([facility]) Elevated heart rate with elevated blood pressure without diagnosis of hypertension documented in this encounter [facility]* Diagnosis Second trimester ([facility]) state, incidental 24 weeks gestation of ([facility]) Diabetes mellitus screening Screening for diabetes mellitus documented in this encounter [facility]* Diagnosis Third trimester ([facility]) state, incidental 28 weeks gestation of ([facility]) size inconsistent with dates ([facility]) Racing heart beat Unspecified tachycardia documented in this encounter [facility]* Diagnosis Third trimester ([facility]) state, incidental 30 weeks gestation of ([facility]) documented in this encounter [facility] Narrative - Reported* Type Description Date Medical History Anxiety Medical HistoryDepressionMedical HistorySeasonal allergiesMedical History Elevated cortisol levelMedical HistoryElevated DHEAMedical HistoryMigraines Hospitalization HistoryChildbirth02/04/2020Hospitalization HistoryChildbirth 06/08/2021 [facility] Other InstructionsNot on filedocumented in this encounter [employer] SystemInstructionsNot on filedocumented in this encounter [employer] SystemInstructionsNot on filedocumented in this encounter [employer] Summary Purpose Family History No Family [...] 1 Elevated DHEA (E27.8 ) [facility] Referring Provider First Name Nelida Referring Provider Last Name [facility] Referring Provider Specialty Nurse Pract itioner Referred Organization [facility] Referred Address [address], [place],[address] Referred Provider Specialty Endocrinolog y Referral Priority Routine Reason Neuro [facility]- sev eral ongoing neuro symptoms Pending CT head at [facility] Diagnosis 1 Dizziness (R42) Referral Organization [facility] Referring Provider First Name Nelida Referring Provider Last Name [facility] Referring Provider Specialty Nurse Pract itioner Referred Organization [facility] Referred Address [address],[address] Referred Provider Specialty Neurology Referral Priority Routine SpecialtyDiagnoses / ProceduresReferred By ContactReferred To ContactRadiology Diagnoses Migraine without aura and without status migrainosus, not intractable Vestibular migraine Pineal gland cyst Procedures MR brain without contrast Ty Stratton PA-C [address] [place] [address] Referral IDStatusReasonStart DateExpiration DateVisits RequestedVisits [id number] Review/[id number] / ProceduresReferred By ContactReferred To ContactSleep Medicine Diagnoses Daytime somnolence Ty Stratton PA-C [address] [place] [address] Yanira Partida MD [address] [place] [address] Referral IDStatusReasonStart DateExpiration DateVisits RequestedVisits [id number] Review Specialty Services Required Chief Complaint and [...] section and content) DATE CREATED AUTHOR 11/14/2021 [facility] DATE CREATED AUTHOR AUTHOR'S ORGANIZ ATION 11/05/2022 [facility] DATE CREATED AUTHOR AUTHOR'S ORGANIZ ATION 09/06/2023 [facility] DATE CREATED AUTHOR AUTHOR'S ORGANIZ ATION 05/01/2025 [facility] DATE CREATED AUTHOR AUTHOR'S ORGANIZ ATION 05/07/2025 [facility] REASON FOR VISIT (unrecogniz ed section and content) ReasonCommentsMed RefillReasonOnset DateCommentsWEENING OFF [id number]/16/2023 ReasonCommentsFollow-upPatient is here today for 3 month [...] 25, 2023Team MemberRelationshipSpecialtyStart DateEnd Date BonivanJeremy shermana, CAMPAIGN MANAGEMENT SENIOR MANAGER-COPYING MACHINE MECHANIC [address] [address] PCP - [facility]04/06/23Team MemberRelationshipSpecialtyStart Date End Date BonivanJeremy shermana, CAMPAIGN MANAGEMENT SENIOR MANAGER-COPYING MACHINE MECHANIC [address] [address] PCP - [facility]04/06/23Team MemberRelationshipSpecialtyStart Date End Date Bonakosua Nelida, CAMPAIGN MANAGEMENT SENIOR MANAGER-COPYING MACHINE MECHANIC [address] [address] [facility] - [facility] Usjyfktu06/13/23Team MemberRelationshipSpecialtyStart Date End Date Unallocated, Meryls MD Chun [facility] [place] [address] [facility] Rxxywnad86/14/24 Treasure [place] DO [address] [id number] Referring TugszitciAxuuoqylp51/14/24Team MemberRelationshipSpecialtyStart Date End Date Unallocated, Natalie Mccollum MD [facility] [place] [address] PCP - [facility]05/08/24 Treasure England DO [address] [place] [address] Referring UcihsgyjbBxpnjhzya88/14/24Team MemberRelationshipSpecialtyStart Date End Date Unallocated, Natalie Mccollum MD [address] [place] [address] PCP - [facility]05/08/24 Treasure England DO [address] [phone] Referring KiqlzubrvCvsbmqlky62/14/24Team MemberRelationshipSpecialtyStart Date End Date Unallocated, Natalie Mccollum MD [facility] [place] [address] PCP - [facility]05/08/24 Treasure England DO [address] [place] [address] Referring PbdjlgdreKxpodaweo97/14/24Team MemberRelationshipSpecialtyStart Date End Date Unallocated, Noms MD [facility]un [facility] [place] [address] PCP - [facility]05/08/24 Treasure [place] DO [address] [place] [id number] Referring QxzvbiaxyGueganroq07/14/24Team MemberRelationshipSpecialtyStart Date End Date Unallocated, Noms ProviderMD [facility] [place] [address] PCP - [facility]05/08/24 Treasure [place] DO [address] [place] [address] Referring CvcldzakrInnbopweb91/14/24Team MemberRelationshipSpecialtyStart Date End Date Unallocated, Noms MD Chun [facility] [place] [address] PCP - [facility]05/08/24 Treasure [place] DO [address] [place] [id number] Referring PtmdeknzkIdigfyyvi13/14/24Team MemberRelationshipSpecialtyStart Date End Date Unallocated, Meryls MD Chun [facility] [place] [address] PCP - [facility]05/08/24 Treasure [place] DO [address] [place] [address] Referring LbwvodjlkYqppmogyq82/14/24Team MemberRelationshipSpecialtyStart Date End Date Unallocated, Meryls MD Chun [facility] [place] [address] PCP - [facility]05/08/24 Treasure England DO [address] [place] [address] Referring GxzppiekeZnwuzlcyy82/14/24Team MemberRelationshipSpecialtyStart Date End Date Unallocated, Meryls MD Chun [facility] [place] [address] [facility] - [facility]05/08/24 Treasure England DO [address] [place] [address] Referring WvqguyltjDeerbjymj62/14/24Team MemberRelationshipSpecialtyStart Date End Date Unallocated, Meryls MD Chun [facility] [place] [address] [facility]05/08/24 Treasure England DO [address] [place] [address] Referring YyzovdjcjVetzddaef79/14/24 Goals (unrecognized section and content) Goals may [...] BE BASED ON THE PRIMARY CLINICAL RECORDS. [facility]. provides no warranty or guarantee of the accuracy or completeness of information in this document.
--- OUTSIDE RECORDS SUMMARY | 2025-05-19 19:24 | XMS_ITS | Clinical Summary ---
Author Organization [facility] Healthcare Address [address] [place] [address] Care Team Providers Care Java Android Developer Name Role Phone Unallocated, [facility] Provider MD Primary Care Provi aristeo Treasure England DO Unavailable [phone] Allergies Active AllergyReactionsCriticalityNoted DateCommentsPollen Lhoxnyy5609/19/2023 Other Reaction(s): Unknown Reaction Medications MedicationSigDispense QuantityRefillsLast FilledStart DateEnd DateStatus magnesium 100 MG tablet 3Active Probiotic Product (PROBIOTIC ADVANCED PO) ProbioticActive pyridoxine (Vitamin B-6) 25 MG tablet Take 25 mg by mouth DailyActive Doxylamine Succinate, Sleep, (UNISOM PO) Take by mouthActive ondansetron (Zofran) 4 MG tablet Indications:Nausea and vomiting in ([facility])Take 1 tablet (4 mg) by mouth [...] 10 MG tablet Indications:Nausea and vomiting in ([facility])TAKE 1 TABLET BY MOUTH IN MORNING,AT NOON,IN EVENING 30 MINUTES PRIOR TO MEALS NEEDED FOR NAUSEA 90 tablet 5Active pantoprazole (Protonix) 40 MG EC tablet Indications:Gastroesophageal reflux disease with esophagitis, unspecified whether hemorrhageTake 1 tablet (40 mg) by mouth in the morning. Take before meals. Do not crush, chew, or split. 30 tablet Discontinued Ambien 10 MG tablet Indications: related fatigue in second trimester ([facility]),Insomnia, unspecified typeTake 1 tablet (10 mg) by mouth as needed at bedtime for sleep for up to 5 days 5 tablet Discontinued promethazine (Phenergan) 12.5 MG tablet Indications:Nausea and vomiting in ([facility])Take 1 tablet (12.5 mg) by mouth every 8 (eight) hours if needed for nausea or vomiting for up to 30 doses Take 1 tablet by mouth every 6 hours as needed for nausea. 30 tablet Discontinued iron polysaccharides (ProFe) 391.3 (180 Fe) MG capsule Indications:Low ironTake 1 capsule (391.3 mg) by mouth Daily 30 capsule Expired Active Problems ProblemNoted DateDiagnosed DatePositive urine test ([facility])12/03/2024 Estimated Date of OuxjjytlVpspvzuaYik69/11/2026ased on last menstrual period of 09/28/2024 Encounters DateTypeDepartmentCare XkevEqktsqrrdoj83/21/2025linisync Result Encounter [facility] External Department Unsolicited Lora Ortiz DO 05/13/2025 1:20 PM ESTRoutine [facility] [place] KE[facility] [address] [place] [address] [place] [address] Nicole Ghosh PA 32 weeks gestation of ([facility]); Third trimester ([facility]); Racing heart beat05/13/2025amboo flowsheet [facility] [address] [place] [address] [place] [address] Nicole Ghosh PA 04/29/2025 1:30 PM ESTRoutine [facility] [place] Chung [facility] [place] [address] Lora Ortiz, DO Third trimester ([facility]); 30 weeks gestation of ([facility])04/29/2025 1:00 PM ESTAncillary Procedure [facility] [place] [facility] [address] [facility] [place] [address] size inconsistent with dates ([facility])04/22/2025linisync Result Encounter [facility] External Department Unsolicited Lora Ortiz, DO 04/22/2025linisync Result Encounter [facility]S External Department Unsolicited Lora Ortiz, DO 04/15/2025 1:00 PM EDTRoutine [facility] [place] [facility] [address] [place] [address] [place] [address] Lora Ortiz, Third trimester ([facility]); 28 weeks gestation of ([facility]); size inconsistent with dates ([facility]); Racing heart beat04/15/2025bstract [facility] [address] [facility] [place] [address] Mable Dior MA 04/15/2025amboo flowsheet [facility] [address] [place] [address] [place] [address] Lora Ortiz, DO 04/13/2025bstract [facility] [place] [facility] [address] [place] [address] [place] [phone] Mable Dior MA 04/08/2025bstract [facility] [place] [facility] [address] [facility] [place] [address] Marge Kirkland NP 04/01/2025Telephone [facility] [address] [facility] [place] [address] Ariadna Bowden MA 04/01/2025linisync Result Encounter [facility] External Department Unsolicited Marge Kirkland NP 03/21/2025Refill [facility] [address] [facility] [place] [address] Lora Ortiz DO Nausea and vomiting in ([facility])03/18/2025 2:20 PM EDTRoutine [facility] [place] [facility] [address] [facility] [place] [address] Lora Ortiz DO Second trimester ([facility]); 24 weeks gestation of ([facility]); Diabetes mellitus tnssurxzo03/24/2025 2:00 PM EDTAncillary Procedure [facility] [place] [facility] [address] [place] [address] Encounter for follow-up ultrasound of anatomy ([facility])03/05/2025bstract [facility] [place] [facility] [address] [facility] [place] [address] Marge Kirkland NP 02/27/2025Orders Only [facility] [address] [facility] [place] [address] Marge Kirkland NP Pelvic pain in female; Pelvic pain affecting , antepartum ([facility])02/25/2025Telephone [facility] [address] [facility] [place] [address] Mable Dior MA 02/20/2025bstract [facility] [place] [facility] [address] [place] [address] Lora Ortiz DO 02/18/2025 10:00 AM EDTRoutine [facility] [place] [facility] [address] [facility] [place] [address] Marge Kirkland NP Nausea and vomiting in ([facility]) (Primary Dx); Second trimester ([facility]); 20 weeks gestation of ([facility]); Elevated heart rate with elevated blood pressure without diagnosis of jxmecrjsrpyo56/27/2025 9:00 AM EDTAncillary Procedure [facility] [place] [facility] [address] [place] [address] 02/18/2025Refill [facility] [place] OBJEAN-PAULN [address] [facility] [place] [address] Cindy Weinstein LPN Gastroesophageal reflux in ([facility])from Last 3 Months Family History Medical HistoryRelationNameCommentsBreast [...] ValueDate RecordedSex Assigned at BirthNot on fileLegal JqbEtyyyu30/15/2023 8:11 PM EDTGender IdentityNot on fileSexual OrientationNot on file Last Filed Vital Signs Vital SignReadingTime TakenCommentsBlood Ekhwhxmr548/7605/13/2025 1:27 PM EST Pulse--Temperature--Respiratory Rate--Oxygen Saturation--Inhaled Oxygen Concentration--Eggkjh538 kg (227 lb)05/13/2025 1:27 PM HLFEfyjtm214.7 cm (5' 8 ) 01/23/2024 1:31 PM EDTBody Mass Index34.52001/23/2024 1:31 PM EDT Plan of Treatment DateTypeDepartmentCare Team (Latest Contact Info)Vhthxfnpeii91/03/2025 1:00 PM ESTRoutine [facility] [place] [facility] [address] [facility] [place] [address] AngelLora, DO [address] [facility] [address] [place] [address] Health MaintenanceDue DateLast DoneCommentsCOVID-19 Vaccine (2024- season) 2025Influenza Vaccine (#1)2025Pneumococcal Vaccine: Pediatrics (0 to 5 Years) and At-Risk Patients (6 to 64 Years)Aged OutNo longer eligible based on patient's age to complete this topic Procedures Procedure NamePriorityDate/TimeAssociated DiagnosisCommentsUS OB BPP W NON-OOMBLQ5705/15/2025 3:36 PM EST POCT URINALYSIS TCBIKQHMOyzbgyg29/19/2025 1:32 PM EST 32 weeks gestation of ([facility]) Third trimester ([facility]) POCT URINALYSIS GTDUFLLURqwhofn92/05/2025 1:42 PM EST 30 weeks gestation of ([facility]) US OB FOLLOW UP TRANSABDOMINAL NAPCNEENZriudix72/05/2025 1:17 PM EST size inconsistent with dates ([facility]) CA ECHO DOPPLER MFBUKZYS10/29/2025 6:12 PM EDT ECG 12-LEAD04/22/2025 8:28 AM EDT POCT URINALYSIS AYWSPETDGycdwnu45/22/2025 1:16 PM EDT 28 weeks gestation of ([facility]) ALL CBC WITH AUTO PCHGXtwnzmy71/08/2025 9:19 AM EDT GLUCOSE 1 PAOGZtqqnrq30/08/2025 9:19 AM EDT POCT URINALYSIS OTADUMZQDcdhvkk75/24/2025 2:39 PM EDT Second trimester ([facility]) US OB LIMITED 1+ URGQZRWTivpenf01/24/2025 2:17 PM EDT Encounter for follow-up ultrasound of anatomy ([facility]) POCT URINALYSIS MNSLUVYHKdvozhb72/27/2025 10:12 AM EDT Second trimester ([facility]) 20 weeks gestation of ([facility]) US OB 14+ WEEKS ANATOMY RXSMArjffoy02/27/2025 9:59 AM EDT Screening, , for anatomic survey ([facility]) from Last 3 Months Results * US OB BPP W NON-STRESS (05/15/2025 3:36 PM EST)Anatomical Region LateralityModalityOtherSpecimen (Source)Anatomical Location / Laterality Collection Method / VolumeCollection TimeReceived Time05/15/2025 3:36 PM EST Narrative 05/15/2025 3:38 PM EST [facility] ?[address] ? [place] [address] ? Ultrasound Report ? Signed ? Patient: NATHANIEL TAYLOR ?MR#: [id number] ?? : 1995 ?Acct:[id number] ?? Age/Sex: 29 / F ?ADM Date: 05/15/25 ?? Loc: [facility] ??250-1 ? Attending Dr: Lora Ortiz D.O. ? Ordering Physician: Lora Ortiz D.O. ?? Date of Service: 05/15/25 ?? Procedure(s): US OB BPP w non-stress ?? Accession Number(s): [id number] ? cc: Kelly Mckenzie ASTHMA EDUCATOR; Lora Ortiz D.O. ? [facility] ? [address] ? [place] [address] ? Patient Name: ?? NATHANIEL TAYLOR ? MRN: [facility]:[id number] ? date: 1995 ?Sex: F ?? Assigned Patient Location: [facility] ?? Current Patient Location: [facility] ?? Accession/Order Number: [id number] ?? Exam Date: 05/15/2025 ??14:56 ?Report Date: 05/15/2025 ??15:36 ? At the request of: ?? LORA ??ANGEL ??DO ? Procedure: ??US OB BPP w non-stress ? Biophysical profile. ? Reason for exam: Third trimester ? COMPARISON: None ? TECHNIQUE: Transabdominal imaging of the gravid uterus was obtained. ? 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 ??CLAUDE is normal at 12.3 ?? cm. ?? heart rate 153 bpm. ? US/US OB BPP w non-stress ?? IMPRESSION: BPP 8 out of 8. ? Impression dictated by: Himanshu Mckeon Jr., D.OEdgar ??05/15/2025 3:36 PM ? Dictation Location: [facility]- ? Electronically authenticated by: [id number] ??Y ?? Date: 05/15/2025 ??15:36 ? Dictated By: ?Himanshu Mckeon M.D. ? Signed By: ?05/15/25 1538 ? DD/ 1536 ? TD/TT: ? Jacquard Plate Maker: Procedure Note Radiology, Radiologist, MD - 05/15/2025 [place] [address] Ultrasound Report Signed Patient: NATHANIEL TAYLOR AMR#: [id number] : 1995Acct:[id number] Age/Sex: 29 / FADM Date: 05/15/25 Loc: [facility] 250-[address]: Lora Ortiz D.O. Ordering Physician: Lora Ortiz D.O. Date of Service: 05/15/25 Procedure(s): US OB BPP w non-stress Accession Number(s): [id number] cc: Kelly Mckenzie ASTHMA EDUCATOR; Lora Ortiz D.O. The [address] [address] Patient Name: NATHANIEL TAYLOR MRN: [id number] date: 1995 Sex: F Assigned Patient Location: [facility] Current Patient Location: [facility] Accession/Order Number: [id number] Exam Date: 05/15/2025 14:56 Report Date: 05/15/2025 15:36 At the request of: LORA ORTIZ DO Procedure: US OB BPP w non-stress Biophysical profile. Reason for exam: Third trimester COMPARISON: None TECHNIQUE: Transabdominal imaging of the gravid uterus was obtained. 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 CLAUDE is normal at12.3 cm. heart rate 153 bpm. US/US OB BPP w non-stress IMPRESSION: BPP 8 out of 8. Impression dictated by: Himanshu Mckeon Jr., D.O. 05/15/2025 3:36 PM Dictation Location: [place] [address] Electronically authenticated by: [id number] Y Date: 5:36 Dictated By: Himanshu Mckoen M.D. Signed By:05/15/25 1538 DD/ 1536 TD/TT: Jacquard Plate Maker: Authorizing ProviderResult TypeResult StatusCorey Angel DOCLINISYNC IMAGINGFinal Result * (ABNORMAL) POCT urinalysis dipstick manually resulted (05/13/2025 1:32 PM EST) Only the most recent of5 resultswithin the time period is included. ComponentValueRef RangeTest MethodAnalysis TimePerformed AtPathologist Signature Color, UAYellowClarity, UAClearGlucose, UANegativeNegative - 1999(110) ++++ mg/dLBilirubin, UANegativeNegative - 4(70) +++ mg/dLKetones, UANegativeNegative - 160(16) ++++ mg/dLSpec Grav, UA1.0151 - 1.03Blood, UANegativeNegative - 50 Cj/mcLpH, UA6.05 - 9Protein, UAPositiveNegative - 2000(20) ++++ mg/dL Urobilinogen, UA1.00.2 - 12 mg/dLLeukocytes, UAPositiveNegative - 500+++ Cosmo/mcL Nitrite, UANegativeNegative - PositiveSpecimen (Source)Anatomical Location / LateralityCollection Method / VolumeCollection TimeReceived QnahZeppp51/19/2025 1:32 PM EST Narrative Authorizing ProviderResult TypeResult StatusNicole Ghosh [facility]ARE TEST ENTER/EDIT ORDERABLESFinal Result * [...] Nogueira MD Authorizing ProviderResult TypeResult StatusCorey Angel [facility] US PROCEDURES Final Result * CA ECHO DOPPLER COMPLETE (04/22/2025 6:12 PM EDT)Anatomical RegionLaterality ModalityOtherSpecimen (Source)Anatomical Location / LateralityCollection Method / VolumeCollection TimeReceived Time04/22/2025 6:12 PM EDT Narrative 04/22/2025 6:13 PM EDT [facility] ?[address] ? [place] [address] ? Cardiology Report ? Signed ? Patient: CLAUDIA,NATHANIEL A ?MR#: [id number] ?? : 1995 ?Acct:[id number] ?? Age/Sex: 29 / F ?ADM Date: 10/29/25 ?? Loc: CARD ? Attending Dr: Lora Ortiz D.O. ? Ordering Physician: Lora Ortiz D.O. ?? Date of Service: 04/22/25 ?? Procedure(s): CA echo doppler complete ?? Accession Number(s): [id number] ? cc: Kelly Mckenzie NP; Lora Ortiz D.O. ? Patient Name: ? NATHANIEL TAYLOR ? MR#: [id number] ? : 1995 ? Exam Date: 04/22/2025 [...] ? 2.50 cm2, 2.50 cm2 ?? Deceleration [place]: ? Pressure Half-Time: ? Peak Velocity(Antegrade Flow): [...] ml, 33.56 ml ? Dictated by: Verónica Lopez MD on 04/22/2025 at 18:06 ? Approved by: Verónica Lopez MD on 04/22/2025 at 18:12 ? Dictated By: ?Verónica Lopez M.D. ? Signed By: ?04/22/25 1813 ? DD/ 11 ? TD/TT: ? Jacquard Plate Maker: Procedure Note Radiology, Radiologist, MD - 04/22/[address] [address] Cardiology Report Signed Patient: NATHANIEL TAYLOR AMR#: [id number] : 1995Acct:[id number] Age/Sex: Date: 04/22/25 Loc: CARD Attending Dr: Lora Ortiz D.O. Ordering Physician: Lora Ortiz D.O. Date of Service: 04/22/25 Procedure(s): CA echo doppler complete Accession Number(s): [id number] cc: Kelly Mckenzie ASTHMA EDUCATOR; Lora Ortiz D.O. Patient Name: NATHANIEL TAYLOR MR#: [id number] : 1995 Exam Date: 04/22/2025 Ordering Doctor: [...] Area (VTI): 2.50 cm2, 2.50 cm2 Deceleration [place]: Pressure Half-Time: Peak Velocity(Antegrade Flow): 1.55 m/s [...] Lopez M.D. Signed By:04/22/251812 DD/ 11 TD/TT: Jacquard Plate Maker: Authorizing ProviderResult TypeResult StatusCorey Angel RONDALINISYNC IMAGINGFinal Result * ECG 12-LEAD (04/22/2025 8:28 AM EDT)Anatomical RegionLateralityModalityOther Specimen (Source)Anatomical Location / LateralityCollection Method / Volume Collection TimeReceived Time04/22/2025 8:28 AM EDT Narrative 04/22/2025 6:39 PM EDT [facility] ?[address] ? [place] [address] ? Electrocardiograph Report ? Signed ? Patient: CLAUDIA,NATHANIEL A ?MR#: [id number] ?? : 1995 ?Acct:[id number] ?? Age/Sex: 29 / F ?ADM Date: 04/22/25 ?? Loc: CARD ? Attending Dr: Lora Ortiz D.O. ? Ordering Physician: Lora Ortiz D.O. ?? Date of Service: 04/22/25 ?? Procedure(s): ECG 12 lead ?? Accession Number(s): [id number] ? cc: ?[facility] ? Test Date: ?2025-04-22 ?? Pat Name: ? NATHANIEL CLAUDIA ?Department: ? Room: ? - ?? Gender: ? Female ? Materials And Processes Manager: ? : ?1995 ? Requested By: LORA ORTIZ ?? Order Number: [id number] ?Reading MD: ?? SLY HERRERA ? Measurements ?? Intervals ?[place] ? Rate: ? 84 ? P: ?22 ?? TX: ? 139 ?QRS: ?88 ?? QRSD: ? 94 ? T: ?54 ?? QT: ? 361 ? QTc: ?429 ? Interpretive Statements ?? SINUS RHYTHM ?? No previous ECG available for comparison ?? Electronically Signed On 04-22-2025 18:39:57 EDT by SLY HERRERA ? Dictated By: ?Sly Herrera M.D. ? Signed By: ?04/22/25 1839 ?04/22/251838 ? DD/ 7 ? TD/TT: ? Jacquard Plate Maker: Procedure Note Radiology, Radiologist, MD - 04/22/2025 [place] [address] Electrocardiograph Report Signed Patient: NATHANIEL TAYLOR AMR#: [id number] : 1995Acct:[id number] Age/Sex: 29 / FADM Date: 04/22/25 Loc: CARD Attending Dr: Lora Ortiz D.O. Ordering Physician: Angel,Lora D.O. Date of Service: 04/22/25 Procedure(s): ECG 12 lead Accession Number(s): [id number] cc: [facility] Test Date: 2025-04-22 Pat Name: NATHANIEL TAYLOR Department: Room: - Gender: Female Materials And Processes Manager: : 1995 Requested By: LORA ORTIZ Order Number: [id number] Reading MD: SLY HERRERA Measurements Intervals [place] Rate: 84 P: 22 TX: 139 QRS: 88 QRSD: 94 T: 54 QT: 361 QTc: 429 Interpretive Statements SINUS RHYTHM No previous ECG available for comparison Electronically Signed On 04-22-2025 18:39:57 EDT by SLY HERRERA Dictated By: Sly Herrera M.D. Signed By:04/22/25183804/22/251838 DD/ 7 TD/TT: Jacquard Plate Maker: Authorizing ProviderResult TypeResult StatusCorejordyn Ortiz DOCLINISYNC IMAGINGFinal Result * GLUCOSE 1 HOUR (04/01/2025 9:19 AM EDT)ComponentValueRef RangeTest Method Analysis TimePerformed AtPathologist SignatureGLUCOSE 1 MWBA730<130 mg/dLTBH Specimen (Source)Anatomical Location / LateralityCollection Method / Volume Collection TimeReceived Time04/01/2025 9:19 AM EDT1 9:27 AM EDT Narrative CLINISYNC - 04/01/2025 10:15 AM EDT Authorizing ProviderResult TypeResult StatusMarge Kirkland NPLAB BLOOD ORDERABLESFinal ResultPerforming OrganizationAddressCity/State/ZIP CodePhone Number [facility] * (ABNORMAL) ALL CBC WITH AUTO DIFF (04/01/2025 9:19 AM EDT)ComponentValueRef RangeTest MethodAnalysis TimePerformed AtPathologist SignatureTBH WBC11.8(H) 4.0 - 11.0 10 3/uLTBHTBH RBC3.81(L)4.20 - 5.40 10 6/uLTBHTBH HGB10.9(L)12.0 - 16.0 g/dLTBHTBH HCT33.8(L)36.0 - 48.0 %TBHTBH MCV88.781.0 - 99.0 fLTBHTBH MCH 28.626.7 - 34.0 pgTBHTBH MCHC32.229.9 - 35.2 g/dLTBHTBH RDW12.611.0 - 15.0 % TBHTBH PGC518516 - 450 10 3/uLTBHTBH MPV11.09.5 - 13.5 [...] 9:27 AM EDT Narrative CLINISYNC - 04/01/2025 10:35 AM EDT Authorizing ProviderResult TypeResult StatusKristina Marita NPCLINISYNCFinal ResultPerforming OrganizationAddressCity/State/ZIP CodePhone Number [facility] * US OB limited 1+ fetuses (03/18/2025 [...] Nogueira MD Authorizing ProviderResult TypeResult StatusCorey Angel [facility] OB US PROCEDURES Final Result * US [...] Nogueira MD Authorizing ProviderResult TypeResult StatusCorey Angel DOI OB US PROCEDURES Edited Result - Final from Last 3 Months Insurance Care Teams Team MemberRelationshipSpecialtyStart DateEnd Date Unallocated, Noms ProviderMD [address] [place] [address] PCP - GeneralFamily Sxpkvuom80/14/24 Treasure England DO [address] [place], [place] [address] Referring RsddevycqUpxsgqeyp74/14/24
[2025-05-19 19:48] VITALS: BP 118/64; PULSE 94
== END 2025-05-19 19:50 | disposition home or self-care (01) ==
LOC: FBCO 19:21 → FBC 19:22
PROVIDERS: PCP Nurse Practitioner Family; Visit Provider Obstetrics & Gynecology
DX: O99.891 Other specified diseases and conditions complicating pregnancy (principal); R00.0 Tachycardia, unspecified; Z3A.33 33 weeks gestation of pregnancy
CPT/HCPCS: 59025

== ENCOUNTER 2025-05-22 10:57 | Outpatient (OUT) | payer OTHER, SELFPAY ==
--- OUTSIDE RECORDS SUMMARY | 2025-05-13 13:20 | XMS_ITS | Encounter Summary ---
Author Organization [facility] Address [address] [facility] [place] [address] Care Team Providers Care Cotton Puller Name Role Phone Unallocated, Noms Provider MD Primary Care Provi aristeo Treasure England DO Unavailable [phone] Reason for Visit * ReasonCommentsRoutine Visit Encounter Details DateTypeDepartmentCare Team (Latest Contact Info)Iutoysoyxoe24/19/2025 1:20 PM ESTRoutine [facility] [place] [facility] [address] [place] [address] Nicole Ghosh PA [address] [facility] [address] [place], [facility] 32 weeks gestation of ([facility]); Third trimester ([facility]); Racing heart beat Social History Tobacco UseTypesPacks/DayYears UsedDateSmoking Tobacco: NeverSmokeless Tobacco: NeverAlcohol UseStandard Drinks/WeekCommentsYes0 (1 standard drink = 0.6 oz pure alcohol)One drink per monthEstimated Date of DeliveryCommentsYes 6Based on last menstrual period of 09/28/2024Sex and Gender Information ValueDate RecordedSex Assigned at BirthNot on fileLegal LloQkvyub83/15/2023 8:11 PM EDTGender IdentityNot on fileSexual OrientationNot on filedocumented as of this encounter Last Filed Vital Signs Vital SignReadingTime TakenCommentsBlood Dhdpunea893/7611 1:27 PM EST Pulse--Temperature--Respiratory Rate--Oxygen Saturation--Inhaled Oxygen Concentration--Ibarlm151 kg (227 lb)05/13/2025 1:27 PM ESTHeight--Body Mass [...] Problems Diagnosis Date Noted Positive urine test ([facility]) 12/03/2024 Resolved Ambulatory Problems Diagnosis Date Noted [...] nursing note reviewed. Exam conducted with a zipper joiner present. Vitals: Estimated body mass index is 34.52 kg/m?? as calculated from the following: Height as of 01/23/24: 5' 8 . Weight as of this encounter: 227 lb. BP: 118/76 Patient's last menstrual period was 09/28/2024. Assessment/Plan ICD-10-CM 1. 32 weeks gestation of ([facility]) Z3A.32 POCT urinalysis dipstick manually resulted US biophysical profile w non stress test 2. Third trimester ([facility]) Z34.93 POCT urinalysis dipstick manually [...] Plan of Treatment DateTypeDepartmentCare Team (Latest Contact Info)Lcebbuiagkl73/03/2025 1:00 PM ESTRoutine [facility] [address] [place] [address] AngelJunito denis DO [address] [place] [address] NameTypePriorityAssociated DiagnosesOrder ScheduleUS biophysical profile w non stress testImagingRoutine 32 weeks gestation of ([facility]) Third trimester ([facility]) Racing heart beat Expected: 05/13/2025 (Approximate), Expires: 11/10/2025documented as of this encounter Procedures Procedure NamePriorityDate/TimeAssociated DiagnosisCommentsPOCT URINALYSIS DXFESUTCXuzpyhy44/19/2025 1:32 PM EST 32 weeks gestation of ([facility]) Third trimester ([facility]) documented in this encounter Results * (ABNORMAL) [...] Location / LateralityCollection Method / VolumeCollection TimeReceived KrcwGfsor72/19/2025 1:32 PM EST Narrative Authorizing ProviderResult TypeResult StatusSentara [facility] TEST ENTER/EDIT ORDERABLESFinal Result documented in this encounter Visit Diagnoses Diagnosis 32 weeks gestation of ([facility]) Third trimester ([facility]) state, incidental Racing heart beat Unspecified tachycardia documented in this encounter Care Teams Team MemberRelationshipSpecialtyStart DateEnd Date Unallocated, Noms Provider, [address] [place], [place] [id number] PCP - GeneralFamily Iooncpbz72/14/24 Treasure England DO [address] [place] [address] Referring TjtmaemjwQnzcqllls01/14/24documented as of this encounter
--- NOTE | 2025-05-22 11:00 | US_ITS ---
[address] [address] Patient Name: NATHANIEL TAYLOR MRN: [facility]:[id number] date: 1995 Sex: F Assigned Patient [place] [facility] [place] Patient Location: Accession/Order Number: [id number] Exam Date: 05/22/2025 11:02 Report Date: 05/22/2025 12:44 At the request of: LORA TUBBS DO Procedure: US OB BPP w non-stress Biophysical profile. Reason for exam: Racing heart beat COMPARISON: 05/15/2025 TECHNIQUE: Transabdominal imaging of the gravid uterus was obtained. FINDINGS: The food concession manager reports a BPP of 8 out of 8. CLAUDE is normal at 14.6 cm. heart rate 129 bpm. US/US OB BPP w non-stress IMPRESSION: BPP 8 out of 8. Impression dictated by: Himanshu Mckeon Jr., D.O. 05/22/2025 12:44 PM Dictation Location: [place] [address] Electronically authenticated by: [id number] Y Date: 05/22/2025 12:44
--- OUTSIDE RECORDS SUMMARY | 2025-05-22 11:00 | XMS_ITS | Clinical Summary ---
Author Organization [employer] [employer] Address [id number] [address] [place] [address] Care Team Providers Care Clinical Dental Technician Name Role Phone Kelly Mckenzie YANELI-COMPUTER SYSTEMS HARDWARE ANALYST Primary Care Provider Allergies No known active [...] without aura and without status migrainosus, not pmsverjokkm55/29/2023Pineal gland cyst05/23/2023Hx of jtyqkleguu45/29/2023Vestibular xudnwxld73/27/2023Choroid plexus cyst of fetus affecting care of mother, aneprezmeu47/10/2021 Family History Medical HistoryRelationNameCommentsBreast cancerMaternal GrandmotherDiabetes Maternal [...] Frequency of Binge DrinkingNot on file12/19/2019PHQ-2AnswerDate RecordedTotal Eomld277/29/2023ChildcareAnswerDate FptcywcsMoqwlmfbgKjwbvgw06/24/2020Employment AnswerDate OhhvwgpjSaxugaudvlKiojzzy65/24/2020Hunger ScreeningAnswerDate RecordedWithin the past 12 months we worried whether our food would run out before we got money to buy more.Never True09/05/2023Within the past 12 months the food we bought just didn't last and we didn't have money to get more.Never True4Purpose - LifeAnswerDate RecordedPurpose and direction in life Yuxdgkg05/11/2021CommentsNoSex and Gender InformationValueDate Recorded Sex Assigned at BirthNot on fileLegal JpvUidift16/24/2020 11:48 AM EDTGender IdentityNot on fileSexual OrientationNot on file Last Filed Vital Signs Vital SignReadingTime TakenCommentsBlood Unxillbz788/7703 9:42 AM EDT Earfp444609/05/2023 9:42 AM EDTTemperature--Respiratory Rate--Oxygen Saturation-- Inhaled Oxygen Concentration--Rrzfvs85.9 kg (202 lb 8 oz)09/05/2023 9:42 AM EDT Lyfsya045.7 cm (5' 8 )09/05/2023 9:42 AM EDTBody Mass Index30.7909/05/2023 9:42 AM EDT Plan of Treatment Health MaintenanceDue DateLast DoneCommentsDTaP,Tdap and Td Vaccines (1 - Tdap) 12/19/2014Pap Smear12/19/2016Depression Esapxkbsz53dult BMI Qgihfifug60Tobacco Dgdkraior33Influenza Afnphvw4602/23/2025 Medical Devices Not on file Insurance Care Teams Team MemberRelationshipSpecialtyStart DateEnd Date Kelly Mckenzie APRN-COMPUTER SYSTEMS HARDWARE ANALYST [address], [facility] [address] [place] [address] PCP - GeneralFamily Bkcmzmih90/13/23
--- OUTSIDE RECORDS SUMMARY | 2025-05-22 11:00 | XMS_ITS | Encounter Summary ---
Author Organization [facility] Address [address] [facility] [place] [address] Care Team Providers Care Direct Selling Counselor Name Role Phone Unallocated, Noms Provider Primary Care Provi aristeo Treasure England DO Unavailable [phone] Encounter Details DateTypeDepartmentCare Team (Latest Contact Info)Dbkchemuemn85/19/2025Bamboo flowsheet NATALIE KEARNS [address] [place] [address] Nicole Ghosh PA [address] [place], [place] [address] Social History Tobacco UseTypesPacks/DayYears UsedDateSmoking Tobacco: NeverSmokeless Tobacco: NeverAlcohol UseStandard Drinks/WeekCommentsYes0 (1 standard drink = 0.6 oz pure alcohol)One drink per monthEstimated Date of DeliveryCommentsYes 6Based on last menstrual period of 09/28/2024Sex and Gender Information ValueDate RecordedSex Assigned at BirthNot on fileLegal AffAzefxb49/15/2023 8:11 PM EDTGender IdentityNot on fileSexual OrientationNot on filedocumented as of this encounter Plan of Treatment DateTypeDepartmentCare Team (Latest Contact Info)Qyufbuagsau85/03/2025 1:00 PM ESTRoutine NATALIE KEARNS [address] [place] [address] Junito Ortiz DO [address] [place], [place] [id number] documented as of this encounter Visit Diagnoses Not on filedocumented in this encounter Care Teams Team MemberRelationshipSpecialtyStart DateEnd Date Unallocated, Noms Provider, [place] [address] PCP - GeneralFamily Bcsgrrer13/14/24 Treasure [place] DO [address] [place] [address] Referring NpylsdozjYggksgqvq45/14/24documented as of this encounter
--- OUTSIDE RECORDS SUMMARY | 2025-05-22 11:00 | XMS_ITS | Encounter Summary ---
Author Organization [facility] Address [address] [facility] [place] [address] Care Team Providers Care Real Estate Consultant Name Role Phone Unallocated, Noms Provider MD Primary Care Provi aristeo TomásTreasure DO Unavailable [phone] Encounter Details DateTypeDepartmentCare Team (Latest Contact Info)Cldlsosbnhv36/21/2025linisync Result Encounter [facility] Unsolicited Lora Ortiz DO [address], [place] [address] Social History Tobacco UseTypesPacks/DayYears UsedDateSmoking Tobacco: NeverSmokeless Tobacco: NeverAlcohol UseStandard Drinks/WeekCommentsYes0 (1 standard drink = 0.6 oz pure alcohol)One drink per monthEstimated Date of DeliveryCommentsYes 6Based on last menstrual period of 09/28/2024Sex and Gender Information ValueDate RecordedSex Assigned at BirthNot on fileLegal IigEmldoo20/15/2023 8:11 PM EDTGender IdentityNot on fileSexual OrientationNot on filedocumented as of this encounter Plan of Treatment DateTypeDepartmentCare Team (Latest Contact Info)Isermixztac35/03/2025 1:00 PM ESTRoutine [facility] [address] [place] [address] Lora Ortiz DO [address] [place] [address] documented as of this encounter Procedures Procedure NamePriorityDate/TimeAssociated DiagnosisCommentsUS OB BPP W NON-DJGADP2605/15/2025 3:36 PM EST documented in this encounter Results * US OB BPP W NON-STRESS (05/15/2025 3:36 PM EST)Anatomical Region LateralityModalityOtherSpecimen (Source)Anatomical Location / Laterality Collection Method / VolumeCollection TimeReceived Time05/15/2025 3:36 PM EST Narrative 05/15/2025 3:38 PM EST [facility] ?[address] ? [place] [address] ? Ultrasound Report ? Signed ? Patient: NATHANIEL TAYLOR ?MR#: [id number] ?? : 1995 ?Acct:[id number] ?? Age/Sex: 29 / F ?ADM Date: 05/15/25 ?? Loc: [facility] ??250-1 ? Attending Dr: Lora Ortiz D.O. ? Ordering Physician: Lora Ortiz D.O. ?? Date of Service: 05/15/25 ?? Procedure(s): US OB BPP w non-stress ?? Accession Number(s): [id number] ? cc: Kelly Mckenzie CENTRAL OFFICE EQUIPMENT INSTALLER; Lora Ortiz D.O. ? [facility] ? [address] [facility] ? [place] [address] ? Patient Name: ?? NATHANIEL TAYLOR ? MRN: [facility]:[id number] ? date: 1995 ?Sex: F ?? Assigned Patient Location: [facility] ?? Current Patient Location: [facility] ?? Accession/Order Number: [id number] ?? Exam Date: 05/15/2025 ??14:56 ?Report Date: 05/15/2025 ??15:36 ? At the request of: ?? LORA ??ANGEL ??DO ? Procedure: ??US OB BPP w non-stress ? Biophysical profile. ? Reason for exam: Third trimester ? COMPARISON: None ? TECHNIQUE: Transabdominal imaging of the gravid uterus was obtained. ? FINDINGS: The tool chaser reports a BPP of 8 out of 8. ??CLAUDE is normal at 12.3 ?? cm. ?? heart rate 153 bpm. ? US/US OB BPP w non-stress ?? IMPRESSION: BPP 8 out of 8. ? Impression dictated by: Himanshu Mckeon Jr., D.O. ??05/15/2025 3:36 PM ? Dictation Location: [facility]-PC-22 ? Electronically authenticated by: [id number] ??Y ?? Date: 05/15/2025 ??15:36 ? Dictated By: ?Himanshu Mckeon M.D. ? Signed By: ?05/15/25 1538 ? DD/ 1536 ? TD/TT: ? Canceling Machine Operator: Procedure Note Radiology, Radiologist, MD - 05/15/2025 [place] [address] Ultrasound Report Signed Patient: NATHANIEL TAYLOR [facility]#: [id number] : 1995Acct:[id number] Age/Sex: 29 / FADM Date: 05/15/25 Loc: [facility] 250-[address]: Lora Ortiz D.O. Ordering Physician: Lora Ortiz D.O. Date of Service: 05/15/25 Procedure(s): US OB BPP w non-stress Accession Number(s): [id number] cc: Kelly Mckenzie CENTRAL OFFICE EQUIPMENT INSTALLER; Lora Ortiz D.O. The [place] [id number] Patient Name: NATHANIEL TAYLOR MRN: [id number] date: 1995 Sex: F Assigned Patient Location: [facility] Current Patient Location: [facility] Accession/Order Number: [id number] Exam Date: 05/15/2025 14:56 Report Date: 05/15/2025 15:36 At the request of: LORA ORTIZ DO Procedure: US OB BPP w non-stress Biophysical profile. Reason for exam: Third trimester COMPARISON: None TECHNIQUE: Transabdominal imaging of the gravid uterus was obtained. FINDINGS: The tool chaser reports a BPP of 8 out of 8. CLAUDE is normal at12.3 cm. heart rate 153 bpm. US/US OB BPP w non-stress IMPRESSION: BPP 8 out of 8. Impression dictated by: Himanshu Mckeon Jr., D.O. 05/15/2025 3:36 PM Dictation Location: [place] [address] Electronically authenticated by: [id number] Y Date: 5:36 Dictated By: Himanshu Mckeon M.D. Signed By:05/15/25 1538 DD/ 1536 TD/TT: Canceling Machine Operator: Authorizing ProviderResult TypeResult StatusCorey Angel DOCLINISYNC IMAGINGFinal Result documented in this encounter Visit Diagnoses Not on filedocumented in this encounter Care Teams Team MemberRelationshipSpecialtyStart DateEnd Date Unallocated, Noms Provider, [address] [place] [address] PCP - GeneralFamily Sxcadnri69/14/24 Treasure England DO [address] [place] [address] Referring KuzrpwoucVydzeiyur08/14/24documented as of this encounter
--- OUTSIDE RECORDS SUMMARY | 2025-05-22 11:00 | XMS_ITS | CCD ---
Author Organization [facility] Care Team Providers Care Weight Reducing Technician Name Role Phone NICK, DR NIELSEN Admitting Unavailable NICK, DR NIELSEN Attending Unavailable SMITH ., VI Primary Care Unavailable NICK, DR NIELSEN Consulting Unavailable ANGEL ., DR PAULINO Consulting Unavailable ANGEL ., DR PAULINO Admitting Unavailable ANGEL ., DR PAULINO Attending Unavailable SMITH ., VI Primary Care Unavailable SCIPIO, DR NIELSEN V Consulting Unavailable ANGEL ., [...] Primary Care Provider Junito Ortiz Attending Provider [phone] Magaly FENCE SUPERVISORNelida HANSEN Primary Care Provider Unallocated , Meryls [...] of OnsetReaction(s) Facility (9 sources)House dust miteDrug allergyMagzterGood [facility]aritan [facility] Other (20 sources)PollenDrug selzjvv63-40-3981EfaomzsTjyki [place] [facility] Other (5 sources)house dust allergenic extract; Translations: [house dust]Drug Allergy 73-93-8703Bprodrb ReactionPremier Health Upper [facility] (5 sources)Pollen; Translations: [pollen extracts]Allergy to unzwekrsl67-54-8725 Unknown ReactionPremier Health Upper [facility] Center Medications Current Medications MedicationDrug Class(es)DatesSig (Normalized)Sig (Original)acetaminophen 300 mg / codeine phosphate 30 mg oral tablet (4 sources)Opioid AgonistStart: 01-14-2025 End: 86-79-4569cppc 1 tablet by mouth every six hours [...] Activedexamethasone 1 mg oral tablet (2 sources)CorticosteroidStart: 20-92-3017Zknfzmkxsndet 1 MG 1 tablet Orally 11pm for 1 days Jan, ActiveDoxylamine Succinate, Sleep, (UNISOM PO) (19 sources)Doxylamine Succinate, Sleep, (UNISOM PO) Take by mouth Active fexofenadine (10 sources)Histamine-1 Receptor AntagonistStart: 88-72-2729qiqysymhflrk ([facility]) Active PO December 25, 2023 12:00amStart: 09-19-2023 End: 08-70-9561yeumhyfgsyvp (Blanche Allergy) Discontinued PO Daily September 19, 2023 12:00am November 28, 2023 8:59amStart: 00-51-0015ecwnfbsffzte (Blanche Allergy) Active PO Daily September 19, 2023 12:00amStart: 09-12-2023 End: 86-84-6292kvmlaltrtgey (Blanche Allergy) 180 MG tablet 09/12/2023 12/17/2024 DiscontinuedMagnesium (20 sources)Start: 09-48-1108wyuzojvhy Active PO December 25, 2023 12:00amStart: 09-03-2023 End: 92-24-1734occiitdhd Discontinued PO September 03, 2023 12:00am November 28, 2023 8:59amStart: 30-35-8018motqqujlh Active PO September 03, 2023 12:00amStart: 78-05-4101jmrcrstpy 100 MG tablet 08/17/2022 ActiveMagnesium OTC, daily Active metoclopramide 10 mg oral tablet (20 sources)Dopamine-2 Receptor AntagonistStart: 17-32-5589ndsu 1 tablet by mouth in the morning as needed for nauseametoclopramide (Reglan) 10 MG tablet Indications: Nausea and vomiting in ([facility] TAKE 1TABLET BY MOUTH IN MORNING,AT NOON,IN EVENING 30 MINUTES PRIOR TO MEALS NEEDED FOR NAUSEA 90 tablet 1 03/23/2025 ActiveStart: 01-26-2025 End: 60-19-6053jjxmimqofvrcfs (Reglan) 10 MG tablet Indications: Nausea and vomiting in ([facility] Take 1tablet (10 mg) by mouth in the morning and 1 tablet (10 mg) at noon and 1 tablet (10 mg) in the evening. Take before meals. Take 1 tablet by mouth 30 minutes prior to meals 3 times daily as needed for nausea. 90 tablet 1 01/26/2025 ActiveStart: 01-14-2025 End: 89-18-7895awqs 1 tablet by mouth three times daily as neededmetoclopramide (Reglan) 10 MG tablet Indications: Nausea and vomiting in ([facility] Take 1tablet (10 mg) by mouth 3 (three) times a day as needed (as needed prior to meals) for up to 10 days 1 tablet 01/14/2025 01/24/2025 ActiveStart: 12-16-2024 End: 67-57-7322iqpu 1 tablet by mouth before mealtime as needed for nausea metoclopramide (Reglan) 10 MG tablet Indications: Nausea and vomiting in ([facility]) TAKE 1TABLET BY MOUTH IN THE MORNING, NOON, EVENING, 30 MINUTES BEFORE MEALS NEEDED FOR NAUSEA 90 tablet 3 12/16/2024 12/17/2024 Discontinued (Ineffective)Start: 11-14-2024 End: 22-67-6582pxvgmgimvqefyv (Reglan) 10 MG tablet Indications: Nausea and vomiting in ([facility]) Take 1tablet (10 mg) by mouth in the morning and 1 tablet (10 mg) at noon and 1 tablet (10 mg) in the evening. Take before meals. Take 1 tablet by mouth 30 minutes prior to meals 3 times daily as needed for nausea. 90 tablet 11/14/2024 12/14/2024 Activeomeprazole 20 mg delayed release oral capsule (20 sources)Proton Pump InhibitorStart: 01-26-2025 End: 71-36-2394oeto 2 capsules by mouth before mealtimeomeprazole (PriLOSEC) [address] capsule Indications: Gastroesophageal Reflux Disease , Heartburn Take 2 capsules (40 mg) by mouth in the morning. Take before meals. Do not crush or chew. 180 capsule 05/19/2025 ActiveStart: 09-03-2023 End: 28-56-9184isao 40 mg by mouth once dailyOmeprazole Discontinued 40 MG PO Daily 90 90 September 03, 2023 2:16pm November 28, 2023 8:59amStart: 89-76-4850weza 2 capsules by mouth in the morningomeprazole (PriLOSEC) 20 mg capsule Take 2 capsules (40 mg total) by mouth in the morning. 02/21/2023 ActiveStart: 62-32-8022mklt 1 capsule by mouth once dailyOmeprazole 40 MG 1 capsule 30 minutes before morning meal Orally Once a day for 90 days Jan, Active Start: 19-07-7251eump 1 capsule by mouth in the morningomeprazole (PriLOSEC) 20 mg capsule Take 1 capsule (20 mg total) by mouth in the morning. 0 02/21/2023 Activeondansetron 4 mg oral tablet (20 sources)Serotonin-3 Receptor AntagonistStart: 11-05-2024 End: 21-38-6334zsuo 1 tablet by mouth every six hours as needed for nausea and nausea, then take 1 tablet by mouthevery six hours as needed for nausea and nauseaondansetron (Zofran) 4 MG tablet Indications: Nausea and vomiting in ([facility]) Take 1 tablet (4 mg) by mouth every 6 (six) hours if needed for nausea or vomiting for up to 30 doses Take 1 tablet by mouth every 6 hours as needed for nausea. 30 tablet 3 01/14/2025 ActiveStart: 09-03-2023 End: 52-55-2473yima 4 mg by mouth once dailyOndansetron Hcl Active 4 MG PO Daily December 25, 2023 12:36pmStart: 73-63-0531fodg 1 tablet by mouth every twenty-four hoursOndansetron HCl 4 MG 1 tablet Orally Once a day for 14 days Jun, Active End: 99-93-1801tdfl 1 tablet by mouth every eight hours [...] tablet (19 sources)Proton Pump InhibitorStart: 12-17-2024 End: 17-68-8231iqge 1 tablet by mouth before mealtimepantoprazole (Protonix) [...] hydrochloride 12.5 mg oral tablet (12 sources)PhenothiazineStart: 95-83-3687rfiz 1 tablet by mouth every eight hours as needed for nausea and nausea, then take 1 tablet by mouth every six hours as needed for nausea and nauseapromethazine (Phenergan) 12.5 MG tablet Indications: Nausea and vomiting in ([facility]) Take 1 tablet (12.5 mg) by mouth [...] PERSISTSMAX 2/24HR 12 tablet 2 07/04/2024 ActiveStart: 17-53-9521tvonphxdhye (MAXALT) 10 mg tablet Indications: Migraine without aura and without status migrainosus, not intractable Take 1 tablet just after onset of migraine. May repeat the dose after 2 hours if migraine persists. Max of 2 doses per 24 hours. 12 tablet 2 09/05/2023 ActiveStart: 05-23-2023 End: 11-12-8326uvmg 5 mg by mouth once dailyRizatriptan Discontinued 5 MG PO Daily September 03, 2023 12:00am November 28, 2023 8:59amverapamil hydrochloride 120 mg extended release oral tablet (2 sources)Calcium Channel BlockerStart: 42-77-8388tyoy 1 tablet by mouth once dailyverapamil SR (CALAN-SR) 120 mg CR tablet Indications: Migraine without aura and without status migrainosus, not intractable Take 1 tablet (120 mg total) by mouth nightly. 30 tablet 5 09/05/2023 Activezolpidem tartrate 10 mg oral tablet (16 sources)gamma-Aminobutyric Acid-ergic AgonistStart: 01-14-2025 End: 72-61-4669Zutciw 10 MG tablet Indications: related fatigue in second trimester ([facility]) , Insomnia, unspecified type Take 1 tablet (10 mg) by mouth as needed at bedtime for sleep for up to 5 days 5 tablet 01/14/2025 Active Completed/Discontinued Medications MedicationDrug Class(es)DatesSig (Normalized)Sig (Original)Atogepant (4 sources)Start: 09-03-2023 End: 43-44-0661mvcn 60 mg by mouth once dailyAtogepant Discontinued 60 MG PO Daily September 03, 2023 12:00am September 19, 2023 11:04amatogepant (QULIPTA) 60 mg tablet (2 sources)Start: 05-23-2023 End: 76-85-2554fjky 1 tablet by mouth in the morningatogepant (QULIPTA) 60 mg tablet Indications: Migraine without aura and without status migrainosus,not intractable Take 60 mg by mouth in the morning. 30 tablet 5 05/23/2023 09/05/2023 DiscontinuedStart: 62-12-3788lzmz 1 tablet by mouth in the morning atogepant (QULIPTA) 60 mg tablet Indications: Migraine without aura and without status migrainosus,not intractable Take 60 mg by mouth in the morning. 30 tablet 5 05/23/2023 Kwmebp12 hr buPROPion hydrochloride 150 mg extended release oral tablet (20 sources)AminoketoneStart: 09-19-2023 End: 87-16-6901pvpx 150 mg by mouth once dailyBupropion Hcl Discontinued 150 MG PO Daily 90 September 19, 2023 11:41am November 28, 2023 8:59amStart: 09-03-2023 End: 56-38-5968kgda 1 tablet by mouth once dailyBupropion Hcl [...] oral tablet (5 sources)Histamine-2 Receptor Antagonist End: 03-33-6552hgbgbeluyo (Pepcid) 10 MG tablet Take by mouth 01/14/2025 Discontinuedmagnesium oxide 250 mg oral tablet (2 sources) End: 88-28-6346bjas 1 tablet by mouth in the morningmagnesium oxide 250 mg tablet Take 1 tablet (250 mg total) by mouth in the morning. 0 09/05/2023 Dis continuedPNV no.95/ferrous fum/folic ac ( ORAL) (2 sources) End: 91-67-4720bzju 1 tablet by mouth once daily before mealtimePNV no.95/ferrous fum/folic ac ( ORAL) Take 1 tablet by mouth daily. 0 09/05/2023 Discontinuedtake 1 tablet by mouth once daily before mealtimePNV no.95/ferrous fum/folic ac ( ORAL) Take 1 tablet by mouth daily. 0 Activepolysaccharide iron complex 391 mg oral capsule (7 sources)Start: 04-01-2025 End: 82-55-4550aodz 1 capsule by mouth once dailyiron polysaccharides (ProFe) 391.3 (180 Fe) MG capsule Indications: Low iron Take 1 capsule (391.3 mg) by mouth Daily 30 capsule 6 04/01/2025 05/01/2025 Expiredpropranolol hydrochloride 20 mg oral tablet (4 sources)beta-Adrenergic BlockerStart: 05-23-2023 End: 68-57-7203tnijvdubohO (INDERAL) 20 mg tablet Indications: Migraine without aura and without status migrainosus, not intractable Take 1 tablet (20 mg) twice daily for 3 days, then reduce to 1 tablet daily for 3days, then discontinue 9 tablet 0 05/23/2023 09/05/2023 Discontinuedtake 1 tablet by mouth at bedtime Propranolol HCl 60 MG 1 tablet Orally HS for migraines Activevitamin B12 (5 sources)Vitamin I09Uktqpqa B12 Not-Taking Problems Active Problems Problem ClassificationProblemDateDocumented DateEpisodic/ChronicAnxiety disorders (17 sources)Anxiety; Translations: [Anxiety disorder, unspecified]ChronicComa; stupor; and brain damage (2 sources)Somnolence; Translations: [Daytime somnolence]Onset: 09-05-2023 74-60-1108KtelotnwBjudnapdwp associated with dizziness or vertigo (12 sources)Dizziness; Translations: [Dizziness and giddiness]EpisodicEsophageal disorders (9 sources)Gastroesophageal reflux disease; Translations: [Gastro-esophageal reflux disease without esophagitis]19-32-3980YkzzpcsOlorfxis; including migraine (20 sources)Migraine; Translations: [Migraine, unspecified, not intractable, without status migrainosus]Onset: 39-20-2788TazosdhEqjve valve disorders (6 sources)Tachycardia; Translations: [Unspecified abnormalities of heart beat] 55-41-2937ZjretppeSzsekhqpvxpfd and screening for infectious disease (3 sources)Encounter for screening for human papillomavirus (HPV); Translations: [Exposure to sexually transmissible disorder]Onset: 314882-51-6350Hwgadbvr Malaise and fatigue (1 source)Other fatigue; Translations: [OTHER FATIGUE]Onset: 85-76-6072Dhtknfjp Menstrual disorders (5 sources)Irregular menstruation, unspecified; Translations: [Missed period] Onset: 38-98-6578PekxnwtAveh disorders (13 sources)Depressive disorder; Translations: [Major depressive disorder, single episode, unspecified]55-92-5437FhfshqsMfldwg and vomiting (18 sources)Nausea; Translations: [Nausea]Onset: 04-16-1628VxyzwvccHmvrf bone disease and musculoskeletal deformities (1 source)Segmental and somatic dysfunction of pelvic region; Translations: [Segmental and somatic dysfunction of pelvic region]Onset: 18-03-9823Wwvrwygg Other complications of (6 sources)Vomiting of , unspecified; Translations: [Unspecified vomiting of , unspecified as to episode of care or not applicable] 13-58-3415FxpdxcpxSkdvl complications of (2 sources)High risk ; Translations: [Supervision of with other poor reproductive or obstetric history, unspecified trimester]12-17-2024 EpisodicOther complications of (2 sources)Fatigue during ; Translations: [ related exhaustion and fatigue, second trimester]80-57-3178WvjrvsovGnodm complications of (2 sources) size does not accord with dates; Translations: [Uterine size- date discrepancy, unspecified trimester]81-07-9971XnzeyaeyMwwtk endocrine disorders (5 sources)Other adrenocortical overactivity; Translations: [OTHER ADRENOCORTICAL OVERACTIVITY]Onset: 69-15-2416LnraekrTronn endocrine disorders (9 sources)Dehydroepiandrosterone sulfate level; Translations: [Other specified disorders of adrenal gland]ChronicOther endocrine disorders (9 sources)Increased cortisol level; Translations: [Other adrenocortical overactivity]ChronicOther endocrine disorders (2 sources)Other specified disorders of adrenal glandChronicOther female genital disorders (2 sources)Vaginal discharge; Translations: [Other specified noninflammatory disorders of vagina]27-84-2411YhbtzqykQbplf and delivery including normal (20 sources); Translations: [Encounter for supervision of normal , unspecified, unspecified trimester]Onset: EpisodicOther screening for suspected conditions (not mental disorders or infectious disease) (20 sources)Encounter for screening for malignant neoplasm of cervix; Translations: [Other specified abnormal findings of blood chemistry]Onset: 88-12-1551PusifcnyXjglh upper respiratory disease (13 sources)Seasonal allergy; Translations: [Other seasonal allergic rhinitis] 27-76-4751DsfxmpkXntbp upper respiratory infections (1 source)Acute upper respiratory infection, unspecifiedEpisodicResidual codes; unclassified (2 sources)Gestation period, 11 weeks; Translations: [11 weeks gestation of ]82-88-3456MxxicscoVlbwamwp codes; unclassified (2 sources)Gestation period, 15 weeks; Translations: [15 weeks gestation of ]24-38-7644WhqzkftwFreknwyq codes; unclassified (2 sources)Insomnia; Translations: [Insomnia, unspecified]96-26-8338Ckubueyk Residual codes; unclassified (2 sources)Gestation period, 20 weeks; Translations: [20 weeks gestation of ]09-06-2411IrhmslicIvwfoejy codes; unclassified (2 sources)Gestation period, 24 weeks; Translations: [24 weeks gestation of ]66-97-9220GlyehjjhRxfamgjg codes; unclassified (2 sources)Gestation period, 28 weeks; Translations: [28 weeks gestation of ]58-86-4291VamykkbpIsevnvrg codes; unclassified (2 sources)Gestation period, 30 weeks; Translations: [30 weeks gestation of ]98-24-5857Rqiqvyms Past or Other Problems Problem ClassificationProblemDateDocumented DateEpisodic/ChronicAbdominal pain (4 sources)Unspecified abdominal pain; Translations: [UNSPECIFIED ABDOMINAL PAIN]Onset: 22-27-7146QuosexiwZgweibtyuiki injury (5 sources)Personal history of traumatic brain injury; Translations: [History of concussion injury of brain]Onset: 771870-28-8317YxmquqyeWsuy disorders (3 sources)Mood disordersOnset: Other complications of ; puerperium affecting management of mother (3 sources)Central nervous system malformation in fetus affecting obstetrical care; Translations: [Choroid plexus cyst of fetus affecting care of mother, antepartum]Onset: 995646-72-0855PkgzhgmcGsisq endocrine disorders (1 source)Endocrine disorder, unspecified; Translations: [ENDOCRINE DISORDER UNSPECIFIED]Onset: 08-24-3310EeswyvxhHekdy endocrine disorders (1 source)Other specified endocrine disorders; Translations: [Other specified endocrine disorders]Onset: 18-33-3404RvrcqdcvHkyhf endocrine disorders (4 sources)Cyst of pineal gland; Translations: [Other specified endocrine disorders]Onset: 387537-56-3081VvyxmgwhOkqty gastrointestinal disorders (1 source)Abdominal distension (gaseous); Translations: [ABDOMINAL DISTENSION GASEOUS]Onset: 23-01-8298PigzznrpBvqjigy cyst (1 source)Other ovarian cyst, right side; Translations: [OTHER OVARIAN CYST RIGHT SIDE]Onset: 94-46-3174Jlwrzhkx Results Test NameValueInterpretationReference RangeFacilityUS OB FOLLOW UP TRANSABDOMINAL APPROACHon 96-76-3913LD OB FOLLOW UP TRANSABDOMINAL APPROACH FINDINGS: A [...] Delivery: 07/05/25 Gestational Age as of 04/15/2025: 89j5gTulehxzsaa macro (dipstick) panel (U)on 47-70-5530Gmwfozfcc, UANegativeNegative - 4(70) +++ mg/dLNOMS HealthcareBlood, UANegativeNegative - 50 Cj/mcLNOMS HealthcareClarity, UAClearNOMS Healthcare Color, UAYellowNOMS HealthcareGlucose, UANegativeNegative - 2000(110) ++++ mg/dL [facility] HealthcareInterpretation and review of laboratory resultsAbnormalNOMS HealthcareKetones, UANegativeNegative - 160(16) ++++ mg/dLNOMS Healthcare Leukocytes, UATraceNegative - 500+++ Cosmo/mcLNOMS HealthcareNitrite, UANegative Negative - PositiveNOMS HealthcarepH, UA7.05 - 9NOMS HealthcareProtein, UA NegativeNegative - 2000(20) ++++ mg/dLNONV HealthcareSpec Grav, UA1.0101 - 1.03 NOMS HealthcareUrobilinogen, UA1.00.2 - 12 mg/dLNONV HealthcareNONV HealthcareCA ECHO DOPPLER COMPLETEon 05-46-7671[place] [address] Cardiology Report Signed Patient: NATHANIEL BOB MR#: [id number] : 1995 Acct:[id number] Age/Sex: 29 / F ADM Date: 04/22/25 Loc: CARD Attending Dr: Junito Ortiz D.O. Ordering Physician: Junito Ortiz D.O. Date of Service: 04/22/25 Procedure(s): CA echo doppler complete Accession Number(s): [id number] cc: Nelida Ding ULTRASOUND TECHNOLOGIST; Junito Ortiz D.O. Patient Name: NATHANIEL BOB MR#: [id number] : 1995 Exam Date: 04/22/2025 Ordering Doctor: [...] Area (VTI): 2.50 cm2, 2.50 cm2 Deceleration Forrest: Pressure Half-Time: Peak Velocity(Antegrade Flow): 1.55 m/s [...] content not included)...TBHRadiology, Radiologist, - 04/22/2025 [place] [address] Cardiology Report Signed Patient: NATHANIEL BOB MR#: [id number] : 1995 Acct:[id number] Age/Sex: 29 / F ADM Date: 04/22/25 Loc: CARD Attending Dr: Junito Ortiz D.O. Ordering Physician: Junito Ortiz D.O. Date of Service: 04/22/25 Procedure(s): CA echo doppler complete Accession Number(s): [id number] cc: Nelida Ding ULTRASOUND TECHNOLOGIST; Junito Ortiz D.O. Patient Name: NATHANIEL BOB MR#: [id number] : 1995 Exam Date: 04/22/2025 Ordering Doctor: [...] Area (VTI): 2.50 cm2, 2.50 cm2 Deceleration Forrest: Pressure Half-Time: Peak Velocity(Antegrade Flow): 1.55 m/s [...] M.D. Signed By: 04/22/251812 DD/ 11 TD/TT: Cloth Sponger: [facility] DISPENSARYDominguez HealthcareRadiology Study observation (narrative)[facility] HospitalCA ECHO DOPPLER COMPLETEOrdered By: Radiologist Radiology on 36-90-7964DEGO Flipter Work Phone: ecg 12-LEADon [phone] [address] Electrocardiograph Report Signed Patient: NATHANIEL BOB MR#: [id number] : 1995 Acct:[id number] Age/Sex: 29 / F ADM Date: 04/22/25 Loc: CARD Attending Dr: Junito Ortiz D.O. Ordering Physician: Junito Ortiz D.O. Date of Service: 04/22/25 Procedure(s): ECG 12 lead Accession Number(s): [id number] cc: [facility] Test Date: 2025-04-22 Pat Name: NATHANIEL BOB Department: Room: - Gender: Female Physical Aerodynamicist: : 1995 Requested By: JUNITO ORTIZ Order Number: [id number] Reading MD: SLY SAAB Measurements Intervals [place] Rate: 84 P: 22 WI: 139 QRS: 88 QRSD: 94 T: 54 QT: 361 QTc: 429 Interpretive Statements SINUS RHYTHM No previous ECG available for comparison Electronically Signed On 04-22-2025 18:39:57 EDT by SLY SAAB Dictated By: Sly Saab M.D. Signed By: 04/22/25183804/22/251838 DD/ 7 TD/TT: Cloth Sponger:CHADWICKadiolSarahi acosta MD - 04/22/2025 The [place] [id number] Electrocardiograph Report Signed Patient: NATHANIEL BOB MR#: [id number] : 1995 Acct:[id number] Age/Sex: 29 / F ADM Date: 04/22/25 Loc: CARD Attending Dr: Junito Ortiz D.O. Ordering Physician: Junito Ortiz D.O. 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 Signed By: 04/22/25183804/22/251838 DD/ 7 TD/TT: Cloth Sponger: NATALIE BarriosRadiology Study observation (narrative)[facility] HealthcareECG 12-LEAD Ordered By: Radiologist Radiology on 19-39-7087LNHR Healthcare Work Phone: Urinalysis macro (dipstick) panel (U)on 04-15-2025 Bilirubin, UANegativeNegative - 4(70) +++ mg/dLNOMS HealthcareBlood, UANegative Negative - 50 Cj/mcLNOMS HealthcareClarity, UAClearNOMS HealthcareColor, UA YellowNOMS HealthcareGlucose, UANegativeNegative - 2000(110) ++++ mg/dLNOMS HealthcareInterpretation and review of laboratory resultsAbnormalNOMS Healthcare Ketones, UANegativeNegative - 160(16) ++++ mg/dLNOMS HealthcareLeukocytes, UA TraceNegative - 500+++ Cosmo/mcLNONV HealthcareNitrite, UANegativeNegative - PositiveNOMS HealthcarepH, UA6.05 - 9NOMS HealthcareProtein, UATraceNegative - 2000(20) ++++ mg/dLNONV HealthcareSpec Grav, UA1.0201 - 1.03N[facility] Urobilinogen, UA2.00.2 - 12 mg/dLNOMS HealthcareNOMS HealthcareGLUCOSE 1 HOURon 18-81-4292Hgbtpue [Mass/Vol]114 mg/dLNINF - 130 mg/dLNONV HealthcareCLINISYNC NOMS HealthcareUS OB LIMITED 1+ FETUSESon 14-83-2524ZE OB LIMITED 1+ FETUSES FINDINGS: Breech presentation. [...] Delivery: 07/05/25 Gestational Age as of 02/25/2025: 83u0dYurwqncwwd macro (dipstick) panel (U)on 50-39-2351Yjrkbfeav, UANegativeNegative - 4(70) +++ mg/dLNOMS HealthcareBlood, UANegativeNegative - 50 Cj/mcLNOMS HealthcareClarity, UAClearNOMS Healthcare Color, UAYellowNOMS HealthcareGlucose, UANegativeNegative - 2000(110) ++++ mg/dL N[facility] HealthcareInterpretation and review of laboratory resultsNormalNONV HealthcareKetones, UANegativeNegative - 160(16) ++++ mg/dLNONV Healthcare Leukocytes, UANegativeNegative - 500+++ Cosmo/mcLNOMS HealthcareNitrite, UA NegativeNegative - PositiveNONV HealthcarepH, UA6.55 - 9NOMS HealthcareProtein, UANegativeNegative - 2000(20) ++++ mg/dLNOMS HealthcareSpec Grav, UA1.011 - 1.03 NOMS HealthcareUrobilinogen, UA1.00.2 - 12 mg/dLNOMS [facility] Urinalysis macro (dipstick) panel (U)on 21-91-4151Zncyphdlj, UANegativeNegative - 4(70) +++ mg/dLNOMS HealthcareBlood, UANegativeNegative - 50 Cj/mcLNOMS HealthcareClarity, UAClearNOMS HealthcareColor, UAYellowNOMS HealthcareGlucose, UANegativeNegative - 1999(110) ++++ mg/dLNOMS HealthcareInterpretation and review of laboratory resultsAbnormalNOMS HealthcareKetones, UANegativeNegative - 160(16) ++++ mg/dLNOMS HealthcareLeukocytes, UAPositiveNegative - 500+++ Cosmo/mcLNOMS HealthcareNitrite, UANegativeNegative - PositiveNOMS HealthcarepH, UA65 - 9NOMS HealthcareProtein, UANegativeNegative - 1999(20) ++++ mg/dLNOMS HealthcareSpec Grav, UA1.0251 - 1.03NOMS HealthcareUrobilinogen, UA1.00.2 - 12 mg/dLNOMS [facility] CenterNONV HealthcareIGP,APTIMA HPV,AGE GDLNon 40-76-8994BWU GDLN ACOG TESTINGNote.[facility] HealthcareComment on above:TESTS RESULT FLAG UNITS REF RANGE LAB Clinician Provided Cytology Information Source.............Endocervix No. of containers..01 ThinPrep Vial Age Algo ACOG Marina... FLAG LEGEND: L-Low Normal,H-High Normal,LL-Alert Low,HH-Alert High <-Panic Low,>-Panic High,A-Abnormal,AA-Critical Abnormal Performed at: 01 =[address] [facility] [place] [address] Maliha Cobb MD, IGP, RFX APTIMA HPV ASCUNote.NOMS HealthcareComment on above:TESTS RESULT FLAG UNITS REF RANGE LAB DIAGNOSIS: 02 NEGATIVE FOR INTRAEPITHELIAL LESION OR MALIGNANCY. Specimen adequacy: 02 Satisfactory for evaluation. No endocervical component is identified. Performed by: Santi Gregory, Intern Retail ([facility]) . 02 Note: Note 02 [...] <-Panic Low,>-Panic High,A-Abnormal,AA-Critical Abnormal Performed at: [address] [address] Maliha Cobb MD, Performed at: = - [facility] [address] [id number] Tank Setter: Maliha Cobb MD, Phone: [phone] Performed at: [facility] [address] [id number] Tank Setter: Maliha Cobb MD, Phone: [phone] SPATULA-ALONE ENDOCERVIX CLINISYNCNOMS HealthcareRECURRENT VAGINITIS (HTRX)on 26-57-6369EFQOBPVBT VAGINAE 0NOMS HealthcareATOPOBIUM VAGINAENot detectedNOMS HealthcareBVAB 2,3 (BACTERIAL VAGINOSIS ASSOCIATED BACTERIA 2, 3); MOBILUNCUS SPH3KEXX HealthcareBVAB 2,3 (BACTERIAL VAGINOSIS ASSOCIATED BACTERIA 2, 3); MOBILUNCUS SPPNot detectedNOMS HealthcareCANDIDA ALBICANS, PARAPSILOSIS, PMEVGUNPRL3CULJ HealthcareCANDIDA ALBICANS, PARAPSILOSIS, TROPICALISNot detectedNOMS HealthcareCANDIDA GLABRATA0 NOMS HealthcareCANDIDA GLABRATANot detectedNOMS HealthcareCANDIDA UWQJHI0SRTE HealthcareCANDIDA KRUSEINot detectedNOMS HealthcareCHLAMYDIA CIRZTQCGZWM6OJMN HealthcareCHLAMYDIA TRACHOMATISNot detectedNOMS HealthcareGARDNERELLA VAGINALIS0 NOMS HealthcareGARDNERELLA VAGINALISNot detectedNOMS HealthcareMEGASPHAERA (TYPES 1, 2)0NOMS HealthcareMEGASPHAERA (TYPES 1, 2)Not detectedNOMS Healthcare MYCOPLASMA CSXFFEYPSP1PBBD HealthcareMYCOPLASMA GENITALIUMNot detectedNOMS HealthcareNEISSERIA VUFVJOKGXVI2JQGG HealthcareNEISSERIA GONORRHOEAENot detected NOMS HealthcareTRICHOMONAS KCPDIIVHH3OZVD HealthcareTRICHOMONAS VAGINALISNot detectedNOMS HealthcareNOMS HealthcareUS OB 14+ [...] Delivery: 07/05/25 Gestational Age as of 01/14/2025: 70t8xAxqzkzzzqg macro (dipstick) panel (U)on 97-50-1259Juygvedjc, UANegativeNegative - 4(70) +++ mg/dLNOMS HealthcareBlood, UANegativeNegative - 50 Cj/mcLNOMS HealthcareClarity, UAClearNOMS Healthcare Color, UAYellowNOMS HealthcareGlucose, UANegativeNegative - 2000(110) ++++ mg/dL NOMS HealthcareInterpretation and review of laboratory resultsNormalNOMS HealthcareKetones, UANegativeNegative - 160(16) ++++ mg/dLNOMS Healthcare Leukocytes, UANegativeNegative - 500+++ Cosmo/mcLNOMS HealthcareNitrite, UA NegativeNegative - PositiveNOMS HealthcarepH, UA65 - 9NOMS HealthcareProtein, UA NegativeNegative - 2000(20) ++++ mg/dLNONV HealthcareSpec Grav, UA1.021 - 1.03 NOMS HealthcareUrobilinogen, UA1.00.2 - 12 mg/dLNONV HealthcareNOMS Healthcare Urinalysis macro (dipstick) panel (U)on 93-08-2209Qyvkaaahe, UANegativeNegative - 4(70) +++ mg/dLNOMS HealthcareBlood, UANegativeNegative - 50 Cj/mcLNONV HealthcareClarity, UAClearNONV HealthcareColor, UAYellowNONV HealthcareGlucose, UANegativeNegative - 2000(110) ++++ mg/dLNONV HealthcareInterpretation and review of laboratory resultsAbnormalDELTA COMMUNITY [facility]ENTER HealthcareKetones, UANegativeNegative - 160(16) ++++ mg/dLDELTA COMMUNITY [facility]ICAL [facility] HealthcareLeukocytes, UAPositiveNegative - 500+++ Cosmo/mcLDELTA COMMUNITY [facility]ENTER HealthcareComment on above:smallNitrite, UANegativeNegative - PositiveNOMS HealthcarepH, UA5.55 - 9NOMS HealthcareProtein, UANegativeNegative - 2000(20) ++++ mg/dLNONV HealthcareSpec Grav, UA1.031 - 1.03NONV Healthcare Urobilinogen, UA0.20.2 - 12 mg/dLNOSaint Alexius HospitalNOMS HealthcareALL CBC WITH AUTO DIFFon 28-45-6086OFZDWIDST ABSOLUTE AUTO0.1NOMS HealthcareBasophils/100 WBC (Bld)0.4 %0.2 - 2.0 %NOMS HealthcareEosinophils/100 WBC (Bld)0.9 %0.9 - 7.0 % [facility] HealthcareErythrocyte distribution width (RBC) [Ratio]13.4 %11.0 - 15.0 % [facility] HealthcareHematocrit (Bld) [Volume fraction]43.2 %36.0 - 48.0 %[facility] HospitalHemoglobin (Bld) [Mass/Vol]15.2 g/dL12.0 - 16.0 g/dLLee's Summit Hospital IMMATURE GRANULOCYTES ABS AUTO0.05HighNOSaint Alexius HospitalImmature granulocytes/100 WBC (Bld)0.4 %0.0 - 0.5 %[facility] HospitalInterpretation and review of laboratory resultsAbnormalLee's Summit HospitalLYMPHOCYTES ABSOLUTE AUTO2.3[facility] Lymphocytes/100 WBC (Bld)17.1 %Low20.5 - 60.0 %[facility] HospitalH (RBC) [Entitic mass]29.9 pg26.7 - 34.0 pgUniversity of Missouri Children's HospitalHC (RBC) [Mass/Vol]35.2 g/dL29.9 - 35.2 g/dLUniversity of Missouri Children's HospitalV (RBC) [Entitic vol]85 fL81.0 - 99.0 fLLee's Summit HospitalMONOCYTES ABSOLUTE AUTO0.7Lee's Summit HospitalMonocytes/100 WBC (Bld)5.5 % 1.7 - 12.0 %[facility] HospitalNEUTROPHILS ABSOLUTE AUTO10.3HighLee's Summit Hospital Neutrophils/100 WBC (Bld)75.7 %High43.0 - 75.0 %[facility] HospitalPlatelet mean volume (Bld) [Entitic vol]11.8 fL9.5 - 13.5 fLLee's Summit HospitalTB EO #0.1NOMS [facility] GID903ZKYQSt. Joseph Medical Center RBC5.08NOSt. Joseph Medical Center WBC13.6HighLee's Summit HospitalCLINISYNCNSt. Joseph Medical CenterHCG ( test) Ql (U)on 12-05-2024 Interpretation and review of laboratory resultsAbnoTitusville Area HospitalPreg Test, UrPositiveNegativeMission Family Health CenterUS OB TRANSVAGINALon 12-05-2024 US OB TRANSVAGINALEXAM: [...] II, MD, PHD at 06-Dec-2024 08:41:12 AM [facility]eleradiologyNormalNot AvailableComment on above:Order Comment: US OB TRANSVAGINAL No LMP recorded.Urinalysis macro (dipstick) panel (U)on 03-36-1117Ialwjesfs, UA NegativeNegative - 4(70) +++ mg/dLNOMS HealthcareBlood, UANegativeNegative - 50 Cj/[facility] CenterNONV HealthcareClarity, UAClearNONV HealthcareColor, UAYellowNONV HealthcareGlucose, UANegativeNegative - 2000(110) ++++ mg/dLNONV Healthcare Interpretation and review of laboratory resultsAbnormalNONV HealthcareKetones, UANegativeNegative - 160(16) ++++ mg/dLNONV HealthcareLeukocytes, UAPositive Negative - 500+++ Cosmo/[facility] CenterNONV HealthcareNitrite, UANegativeNegative - Positive NOMS HealthcarepH, UA75 - 9NOMS HealthcareProtein, UAPositiveNegative - 2000(20) ++++ mg/dLNOMS HealthcareSpec Grav, UA1.021 - 1.03NOMS HealthcareUrobilinogen, UA1.00.2 - 12 mg/dLNONV HealthcareNOMS HealthcareCORTISOL 24HR URINEon 29-30-4278Eazdiqoh,F,ug/24hr,U26 ug/24 hrNormal6-42[facility] Medical CenterComment on above:Performed By: #### CORT24 #### [facility] [address] [address] [address] Lucretia ZamudioCortisol,F,ug/L,U10 ug/LNormalUndefinedThe [facility] Comment on above:Performed By: #### CORT24 #### [facility] [address] [address] [address] Lucretia ZamudioCT ABDOMEN WO/W CONon 37-64-8195DT ABDOMEN WO/W CONCLINICAL HISTORY: Blood chemistry abnormal. [...] Electronically authenticated by: YOVANY CLARK Date: 2022-08-27 08:37[facility] SERUMon 14-87-1808Kwngwhnxfhyyrnxxjosdnj (DHEA)1255 ng/dL Critically pfab97-053Ucm [facility] CampusComment on above:Result Comment: Age 1 - 5 years 0 - 67 6 - 7 years 0 - 110 8 - 10 years 0 - 185 11 - 12 years 0 - 201 13 - 14 years 0 - 318 15 - 16 years 39 - 481 17 - 19 years 40 - 491 >19 years 31 - 701Performed By: #### DHEA. #### [facility] [address] [place] [address] Dr. Lucretia ZamudioTESTOSTERONE, FREE,DIRECT, TOTALon 55-65-6281Edix Testosterone(Direct)2.8 pg/mLNormal0.0-4.2[facility] Medical CenterComment on above: Result Comment: Performed at: BNPerformed By: #### TESTFRD #### [facility] [address] [place] [address] Dr. Lucretia ZamudioTestosterone [Mass/Vol]42 ng/dTCfyfvw32-70Cmp [facility] Comment on above:Result Comment: Performed at: CBPerformed By: #### TESTFRD #### [facility] [address] [place] [address] Dr. Lucretia ZamudioCORTISOL Shiv 20-88-3548Jjdrdfjl AM23.4 ug/dLCritically high 6.2-19.4The [facility] CampusComment on above:Performed By: #### PROGES #### [facility] [address] [place] [address] Dr. Lucretia ZamudioDHEA-SULFATEon 04-44-5195VECE-Bbbljha672.0 ug/vTXvjeyj73.8-378.0 The [facility] CampusComment on above:Performed By: #### LBCLH #### [facility] [address] [place] [address] Dr. Lucretia VergaraTRADIOLon 23-52-1491Trcuiouyc328.0 pg/mLNormalThe [facility] CampusComment on above:Result Comment: Adult Female: Follicular phase 12.5 - 166.0 Ovulation phase 85.8 - 498.0 Luteal phase 43.8 - 211.0 Postmenopausal <6.0 - 54.7 1st trimester 215.0 - >4300.0 Dona ECLIA methodologyPerformed By: #### ESTRADI #### [facility] [address] [place] [address] Dr. Lucretia TanHon 06-79-6297CPC7.0 mIU/mLNormalCoshocton Regional Medical CenterComment on above:Result Comment: Adult Female: Follicular phase 3.5 - 12.5 Ovulation phase 4.7 - 21.5 Luteal phase 1.7 - 7.7 Postmenopausal 25.8 - 134.8Performed By: #### LBCFSH #### [facility] [address] [place] [address] Dr. Lucretia ZamudioLUTEINIZING HORMONE (LH)on 75-85-2776LR9.7 mIU/mLNKnox Community HospitalComment on above:Result Comment: Adult Female: Follicular phase 2.4 - 12.6 Ovulation phase 14.0 - 95.6 Luteal phase 1.0 - 11.4 Postmenopausal 7.7 - 58.5Performed By: #### LBCLH #### [facility] [address] [place] [address] Dr. Lucretia ZamudioPROGESTERONEon 93-83-8049Uczolxwgyhai8.2 ng/mLNKnox Community HospitalComment on above:Result Comment: Follicular phase 0.1 - 0.9 Luteal phase 1.8 - 23.9 Ovulation phase 0.1 - 12.0 First trimester 11.0 - 44.3 Second trimester 25.4 - 83.3 Third trimester 58.7 - 214.0 Postmenopausal 0.0 - 0.1Performed By: #### PROGES #### [facility] [address] [place] [address] Dr. Lucretia ZamudioFREE T4on 64-54-3678Eozh T4 [Mass/Vol]1.13 ng/dLNormal0.76-1.46 [facility] CenterComment on above:Performed By: #### FT4 #### [facility] [address] [place] [address] Dr. Lucretia ZamudioGLYCOHEMOGLOBIN A1Con 56-55-2654TYU RECOMMENDATIONSEE BELOWNormal [facility] Medical CenterComment on above:Result Comment: ADA RECOMMENDED LIMIT 4.0 - 6.0 ADA THERAPEUTIC TARGET < 7.0 ACTION SUGGESTED > 7.0Performed By: #### PROGES #### [facility] [address] [place] [address] Dr. Lucretia ZamudioGlucose [Mass/Vol]105 mg/dLNormalThCoshocton Regional Medical CenterComment on above:Performed By: #### PROGES #### [facility] [address] [place] [address] Dr. Lucretia ZamudioHbA1c (Bld) [Mass fraction]5.3 %Normal4.5-6.2The [facility] Hospitalment on above:Performed By: #### PROGES #### [facility] [address] [place] [address] Dr. Lucretia ZamudioTSHon 53-58-6930AFK8.971 uIU/mLNormal0.358-3.740The [facility] CampusComment on above:Performed By: #### TSH #### [facility] [address] [place] [address] Dr. Lucretia ZamudioUS PELVIS AND TRANSVAGon 36-76-9217OG PELVIS AND TRANSVAG EXAMINATION: US PELVIS AND [...] authenticated by: GIA PRESCOTT Date: 2022-08-02 18:42NormalThe [facility] CampusAMYLASEon 11-56-2780Oaugcjy [Catalytic activity/Vol]50 U/L Sxnhjs14-468Vux [facility] on above:Performed By: #### PROGES #### [facility] [address] [place] [address] Dr. Lucretia ZamudioCBC AUTO DIFFon 71-55-6550LYIP #0.1 103/ulNormal0.0-0.1The [facility] on above:Performed By: #### CBC #### [facility] [address] [address] [address] Lucretia ZamudioBasophils/100 WBC (Bld)0.9 %Normal0.2-2.0The [facility] Comment on above:Performed By: #### CBC #### [facility] [address] [place] [address] Dr. Lucretia Lynne #0.4 103/ulNormal0.0-0.7The [facility] CampusComment on above: Performed By: #### CBC #### [facility] [address] [place] [address] Dr. Lucretia Huntosinophils/100 WBC (Bld)3.4 %Normal0.9-7.0The [facility] Comment on above:Performed By: #### CBC #### [facility] [address] [place] [address] Dr. Lucretia Huntrythrocyte distribution width (RBC) [Ratio]12.7 %Dptirn84.0-15.0 The [facility] CampusComment on above:Performed By: #### CBC #### [facility] [address] [place] [address] Dr. Lucretia ZamudioHematocrit (Bld) [Volume fraction]44.1 %Lcxkmi31.0-48.0The [facility] CampusComment on above:Performed By: #### CBC #### [facility] [address] [place] [address] Dr. Lucretia ZamudioHemoglobin (Bld) [Mass/Vol]14.5 g/rMKdrwqr27.0-16.0The [facility] CampusComment on above:Performed By: #### CBC #### [facility] [address] [place] [address] Dr. Lucretia Gomez #0.03 10e3/ulNormal0.00-0.03The [facility] CampusComment on above:Performed By: #### CBC #### [facility] [address] [place] [address] Dr. Lucretia Gomez %0.3 %Normal0.0-0.5The [facility] CampusComment on above: Performed By: #### CBC #### [facility] [address] [address] [address] Lucretia Brush #2.9 103/ulNormal1.2-3.8The [facility] CampusComment on above:Performed By: #### CBC #### [facility] [address] [address] [address] Lucretia Worthingtonmphocytes/100 WBC (Bld)24.9 %Ymkiiz49.5-60.0The [facility] CampusComment on above:Performed By: #### CBC #### [facility] [address] [place] [address] Dr. Lucretia Krishnan DIFF REQNONormalThe [facility] CampusComment on above: Performed By: #### CBC #### [facility] [address] [place] [address] Dr. Lucretia Simmons (RBC) [Entitic mass]28.9 sfDqbgmt31.7-34.0The [facility] CampusComment on above:Performed By: #### CBC #### [facility] [address] [place] [address] Dr. Lucretia Simmons (RBC) [Mass/Vol]32.9 g/gHEfwwwu85.9-35.2The [facility] CampusComment on above:Performed By: #### CBC #### [facility] [address] [place] [address] Dr. Lucretia Simmons (RBC) [Entitic vol]87.8 tTOsfwdu33.0-99.0The [facility] CampusComment on above:Performed By: #### CBC #### [facility] [address] [place] [address] Dr. Lucretia Lemus #0.6 103/ulNormal0.3-0.8The [facility] CampusComment on above:Performed By: #### CBC #### [facility] [address] [place] [address] Dr. Lucretia Manzoocytes/100 WBC (Bld)5.4 %Normal1.7-12.0The [facility] Comment on above:Performed By: #### CBC #### [facility] [address] [address] [address] Lucretia Waterman #7.6 103/ulCritically high1.4-6.5The [facility] Comment on above:Performed By: #### CBC #### [facility] [address] [place] [address] Dr. Lucretia Wagnerutrophils/100 WBC (Bld)65.1 %Vdmgds13.0-75.0The [facility] CampusComment on above:Performed By: #### CBC #### [facility] [address] [place] [address] Dr. Lucretia ZamudioPlatelet mean volume (Bld) [Entitic vol]10.0 fLNormal9.5-13.5The [facility] CampusComment on above:Performed By: #### CBC #### [facility] [address] [place] [address] Dr. Lucretia ZamudioPLT277 103/upPtxtkn135-806Swp [facility] CampusComment on above: Performed By: #### CBC #### [facility] [address] [place] [address] Dr. Lucretia ZamudioRBC5.02 106/ulNormal4.20-5.40The [facility] CampusComment on above:Performed By: #### CBC #### [facility] [address] [place] [address] Dr. Lucretia ZamudioWBC11.6 103/ulCritically high4.0-11.0The [facility] CampusComment on above:Performed By: #### CBC #### [facility] [address] [place] [address] Dr. Lucretia ZamudioCULTZA URINEon 33-06-1644HTEAKQK URINECulture Observations: LIGHT GROWTH OF MIXED GENITAL SILVIA. NO POTENTIAL PATHOGENS SEEN.NormalThe [facility] CampusComment on above:Performed By: #### PROGES #### [facility] [address] [place] [address] Dr. Lucretia ZamudioLIPASEon 79-05-6915Jxeqjy [Catalytic activity/Vol]85.0 U/LNormal 73.0-393.0The [facility] CampusComment on above:Performed By: #### PROGES #### [facility] [address] [place] [address] Dr. Lucretia Shoemaker QUANT HCGon 55-87-3938OXI QUANT1 mIU/mLNormalThe [facility] CampusComment on above:Performed By: #### PROGES #### [facility] [address] [place] [address] Dr. Lucretia Leyva RANGESEE [facility] ClinicComment on above: Result Comment: 5-50 0.2-1 WEEK 50-500 1-2 WEEKS 100-5,000 2-3 WEEKS 500-10,000 3-4 WEEKS 1,000-50,000 4-5 WEEKS 10,000-100,000 5-6 WEEKS 15,000-200,000 6-8 WEEKS 10,000-100,000 2-3 MONTHSPerformed By: #### PROGES #### [facility] [address] [place] [address] Dr. Lucretia ZamudioPROF 14(COMP METB)on 94-29-0993Ljanpee [Mass/Vol]4.0 g/dLNormal 3.4-5.0The [facility] on above:Performed By: #### PROGES #### [facility] [address] [place] [address] Dr. Lucretia ZamudioAlbumin/Globulin [Mass ratio]1.1 {ratio}NormalThe [facility] on above:Performed By: #### PROGES #### [facility] [address] [place] [address] Dr. Lucretia rBunson [Catalytic activity/Vol]98 U/FRobpfs11-293Tev [facility] CampusComdeckerville [facility] on above:Performed By: #### PROGES #### [facility] [address] [place] [address] Dr. Lucretia Mauro [Catalytic activity/Vol]16 U/BBewjzy14-64Hch [facility] on above:Performed By: #### PROGES #### [facility] [address] [place], [place] [id number] Dr. Lucretia Whyte gap [Moles/Vol]9.7 mmol/LNormalThe [facility] CampusComment on above:Performed By: #### PROGES #### [facility] [address] [address] [address] Lucretia ZamudioAST [Catalytic activity/Vol]15 U/XLtfyul56-18Ucf [facility] CampusComment on above:Performed By: #### PROGES #### [facility] [address] [address] [address] Lucretia ZamudioBilirubin [Mass/Vol]0.2 mg/dLNormal0.2-1.0The [facility] Comment on above:Performed By: #### PROGES #### [facility] [address] [place] [address] Dr. Lucretia ZamudioCalcium [Mass/Vol]9.5 mg/dLNormal8.5-10.1The [facility] Comment on above:Performed By: #### PROGES #### [facility] [address] [place] [address] Dr. Lucretia ZamudioChloride [Moles/Vol]102 mmol/ICzfpyt06-205Pwn [facility] Comment on above:Performed By: #### PROGES #### [facility] [address] [place] [address] Dr. Lucretia ZamudioCO2 [Moles/Vol]31.5 mmol/AKamjca62.0-32.0The [facility] Comment on above:Performed By: #### PROGES #### [facility] [address] [address] [address] Lucretia ZamudioCreatinine [Mass/Vol]0.79 mg/dLNormal0.55-1.02The [facility] CampusComment on above:Performed By: #### PROGES #### [facility] [address] [address] [address] Lucretia Foster-AF INDIAN>60Normal>=60The [facility] CampusComment on above:Performed By: #### PROGES #### [facility] [address] [place] [address] Dr. Lucretia HuntGFR-NON AF INDIAN>60Normal>=60The [facility] CampusComment on above:Performed By: #### PROGES #### [facility] [address] [place] [address] Dr. Lucretia ZamudioGlobulin (S) [Mass/Vol]3.8 g/dLNormSelect Medical TriHealth Rehabilitation HospitalComment on above:Performed By: #### PROGES #### [facility] [address] [place] [address] Dr. Lucretia ZamudioGlucose [Mass/Vol]95 mg/kUYyqhur87-227Gqa [facility] Comment on above:Performed By: #### PROGES #### [facility] [address] [place] [address] Dr. Lucretia ZamudioPotassium [Moles/Vol]4.2 mmol/LNormal3.5-5.1The [facility] Comment on above:Performed By: #### PROGES #### [facility] [address] [place] [address] Dr. Lucretia ZamudioProtein [Mass/Vol]7.8 g/dLNormal6.4-8.2The [facility] Comment on above:Performed By: #### PROGES #### [facility] [address] [place] [address] Dr. Lucretia ZamudioSodium [Moles/Vol]139 mmol/XFuxiye403-431EqnCoshocton Regional Medical Center Comment on above:Performed By: #### PROGES #### [facility] [address] [place] [address] Dr. Lucretia ZamudioUrea nitrogen [Mass/Vol]12.0 mg/dLNormal7.0-18.0The [facility] CampusComment on above:Performed By: #### PROGES #### [facility] [address] [place] [address] Dr. Lucretia Gibbs nitrogen/Creatinine [Mass ratio]15.2 mg/mgNormSelect Medical TriHealth Rehabilitation HospitalComment on above:Performed By: #### PROGES #### [facility] [address] [place] [address] Dr. Lucretia Pollack RANDOMon 88-25-8700Tximasxcq Ql (U)NegativeNormalNEGATIVECoshocton Regional Medical CenterComment on above:Performed By: #### PROGES #### [facility] [address] [address] [address] Lucretia Salesarity (U)CLEARNormalCLEARCoshocton Regional Medical CenterComment on above: Performed By: #### PROGES #### [facility] [address] [address] [address] Lucretia Cruz (U)LT. YELLOWNormalYELLOWCoshocton Regional Medical CenterComment on above:Performed By: #### PROGES #### [facility] [address] [address] [address] Lucretia ZamudioGlucose Ql (U)NegativeNormalNEGATIVECoshocton Regional Medical CenterComment on above:Performed By: #### PROGES #### [facility] [address] [place] [address] Dr. Lucretia ZamudioHemoglobin Ql (U)NegativeNormalNEGATIVEMckitrick Hospital on above:Performed By: #### PROGES #### [facility] [address] [place] [address] Dr. Lucretia ZamudioKetones Ql (U)NegativeNormalNEGATIVECoshocton Regional Medical CenterComment on above:Performed By: #### PROGES #### [facility] [address] [place] [address] Dr. Lucretia ZamudioLEUKOCYTESNegativeNormalNEGATIVECoshocton Regional Medical CenterComment on above:Performed By: #### PROGES #### [facility] [address] [address] [address] Lucretia ZamudioNitrite Ql (U)NegativeNormalNEGATIVECoshocton Regional Medical CenterComment on above:Performed By: #### PROGES #### [facility] [address] [address] [address] Lucretia ZamudiopH (U)7.0 [pH]Normal5-9[facility] Medical CenterComment on above: Performed By: #### PROGES #### [facility] [address] [address] [address] Lucretia ZamudioSPEC GRAVITY1.581Quzyso7.005-<=1.025The [facility] CampusComment on above:Performed By: #### PROGES #### [facility] [address] [address] [address] Lucretia Pollack PROTEINNegativeNormalNEGATIVE/ TRACEThe [facility] Comment on above:Performed By: #### PROGES #### [facility] [address] [place] [address] Dr[address] Lucretia Davidbilinogen Qn (U)0.2 {Tommie'U}/dLNormal0.2 - 1.0The [facility] CampusComment on above:Performed By: #### PROGES #### [facility] [address] [address] [address] Lucretia ZamudioPhysical Therapy Noteon 09-40-0863Pmrtnmnd Therapy Note [id number]#1.00[facility] Coding Summaryon 42-28-3977Pswwxn SummaryHTMLBase 64 VyfgotsgDBg1dSv+PGhlYWQ+PJ3RYZZzY06lnOJlfG5OW5gEWX4WKGHSYTRXUC5DPH0euJA2DUveP4Yh biAv [file] PSd (more content not included)...[facility] CenterProvider Orderson 09-04-0228Wzgjtdmi [id number]#1.00OTCleveland Clinic South Pointe HospitalConsent Formson 10-63-4437Oojobku Forms [id number]#1.00[facility] Physical Therapy Noteon 03-98-0116Ffcvuiyt Therapy Note [id number]#1.00[facility] Provider Orderson 56-10-2572Dajfxbbb Orders [id number]#1.00[facility] Coding Summaryon 04-34-4381Rxgxus SummaryHTMLBase 64 YpyqkkmkUVx3sSh+PGhlYWQ+BT1JHDWaQ32vuEBdrF2SO4lZCV2PBTHHRULVHU9GCW4qdEM8XYhbP3Qv biAv [file] PSd (more content not included)...[facility] CenterRad - MRI Reporton 11-90-8507Hnh - MRI [id number]#1.00OTGTIFF [facility] Vital Signs Date TimeVital SignValuePerforming MqvabjqewUssuhtnd30-21-0592 13:19-0400Body mass index (BMI) [Ratio]34.36 kg/u3Gkpbx Angel DO Work Phone: 1(612)053-[address] [place], [place] [address]Jhcbwwrubo92-50-6922 13:19-0400Body ixvudu402.51 kgCorey Angel DO Work Phone: 1(798)842-[address] [place], [place] [address]Ttudxqjkwy64-57-3038 13:19-0400Diastolic blood mm[Hg]Junito Angel DO Work Phone: 1(329)[address] [place], [place] [address]Qpvccbrpdq60-15-7828 13:19-0400Systolic blood thfyuhqg644 mm[Hg]Junito Angel DO Work Phone: 9(765)631-[address] [place], [place] [address]Vahtuydjba28-92-3932 14:29-0400Body mass index (BMI) [Ratio]33.15 kg/c5Fwzuy Angel DO Work Phone: 1(081)[address] [place], [place] [address]Yeainrdyqr26-27-2075 14:29-0400Body dxoika97.88 kgCorey Angel DO Work Phone: [phone])407[facility] HospitalYqaauhwtny91-85-8780 14:29-0400Diastolic blood kbopgkpw60 mm[Hg]Junito Angel DO Work Phone: 1(067)[address] [place], [place] [address]Tghgmmenqw36-62-8589 14:29-0400Systolic blood pyopzykh589 mm[Hg]Junito Angel DO Work Phone: 1(627)431-[facility] HospitalZhltjcvqpp82-25-6703 10:06-0400Body mass index (BMI) [Ratio]31.75 kg/x0DmspiqzmInna Kirkland ULTRASOUND TECHNOLOGIST Work Phone: 1(886)126-[address] [place], [place] [address]Qazfcuwxtm30-81-2339 10:06-0400Body ljbnyj59.71 kgInna Kirkland ULTRASOUND TECHNOLOGIST Work Phone: 1(975)370-[address] [place], [place] [address]Pukrbinghs71-44-8580 10:06-0400Diastolic blood finrbblo80 mm[Hg]Inna Kirkland ULTRASOUND TECHNOLOGIST Work Phone: 1(182)980-[address] [place], [place] [address]Ujknjdcftk93-45-2296 10:06-0400Systolic blood yyvmsdrd305 mm[Hg]Inna Kirkland ULTRASOUND TECHNOLOGIST Work Phone: 1(163)[facility] [place], [place] [address]Ptnnsonwmj77-85-0889 14:59-0400Body mass index (BMI) [Ratio]30.99 kg/o4Ulvvc Angel DO Work Phone: 1(966)[facility] [place], [place] [address]Xqqfdoiotm76-52-7295 14:59-0400Body chiorz67.44 kgCorey Angel DO Work Phone: 1(378)[facility] [place], [place] [address]Qdzcdoyhsw85-98-8088 14:59-0400Diastolic blood mm[Hg]Junito Angel DO Work Phone: 1(127)[facility] [place], [place] [address]Vlitstekuv62-72-8148 14:59-0400Systolic blood opxxookw003 mm[Hg]Junito Angel DO Work Phone: 1(933)[address] [place], [place] 9284306-25-2025 13:39-0400Body mass index (BMI) [Ratio]29.73 kg/n7Hinpu Angel DO Work Phone: 1(776)[address] [place], [place] 9284306-25-2025 13:39-0400Body yfsjpl94.68 kgCorey Angel DO Work Phone: 1(745)[facility] [place], [place] [address]Akdrbgwgeg86-26-0535 13:39-0400Diastolic blood epwbvwqu45 mm[Hg]Junito Angel DO Work Phone: 1(433)[facility] [place], [place] [address]Knrdmzasfz69-58-2528 13:39-0400Systolic blood azmysnde668 mm[Hg]Junito Angel DO Work Phone: 1(139)[address] [place], [place] 9284307-02-2024 12:30-0400Body lrkrem427.45 cmAPRYamilka Crocketterwhit Work Phone: 1(781)[address] [place], [place] 9675707-02-2024 12:30-0400 Body mass index (BMI) [Ratio]31.6 kg/m2YANELI Crocketterwhit Work Phone: 1(349)[address] [place], [place] 9675707-02-2024 12:30-0400 Body orzcktffkzw55.8 [degF]YANELI Crocketterwhit Work Phone: 1(787)[address] [place], [place] 9675707-02-2024 12:30-0400 Body .98 kgYANELI Ding Work Phone: 1(589)[address] [place], [place] 9675707-02-2024 12:30-0400 Diastolic blood sxyefpmf92 mm[Hg]YANELI Crocketterwhit Work Phone: 1(811)[address] [place], [place] 9675707-02-2024 12:30-0400 Heart rate69 /minYANELI Crocketterwhit Work Phone: 1(263)[address] [place], [place] 9675707-02-2024 12:30-0400 Respiratory rate20 /minYANELI Crocketterwhit Work Phone: 1(600)[address] [place], [place] 9675707-02-2024 12:30-0400 SaO2% (BldA) [Mass fraction]99 %YANELI Crocketterwhit Work Phone: 1(799)[address] [place], [place] 9675707-02-2024 12:30-0400 Systolic blood ppgsexbx210 mm[Hg]YANELI Crocketterwhit Work Phone: 1(048)[address] [place], [place] 9675706-05-2024 08:58-0400 Body bxdvas725.45 [facility]Prem[facility]06-05-2024 08:58-0400Body mass index (BMI) [Ratio]31.6 kg/n5FyjbysnfwPremier Health [facility] Center06-05-2024 08:58-0400Body .98 kgPrem[facility] Health [facility]03-27-2024 11:00-0400Body fiuvph583.45 cmPrem[facility]03-27-2024 11:00-0400Body mass index (BMI) [Ratio]31.6 kg/y3GczwwctxiPremier Health [facility]03-27-2024 11:00-0400Body ahyryijoxbg46 [degF][facility]03-27-2024 11:00-0400Body uladic76.98 kgPrem[facility] 09-19-2023 11:00-0400Diastolic blood yvwwsseb05 mm[Hg][facility]03-27-2024 11:00-0400Heart rate80 /[facility] 09-19-2023 11:00-0400Respiratory rate20 /[facility] 09-19-2023 11:00-2719OmJ7% (BldA) [Mass fraction]98 %[facility]03-27-2024 11:00-0400Systolic blood dwrcmqiq320 mm[Hg][facility]03-13-2024 09:42-0400Body lhaojp508.7 Serg DUONGC Work Phone: [facility] Cell>Point Dyypiu53-37-1508 09:42-0400Body mass index (BMI) [Ratio]30.79 kg/n8OoimcpyTy CRISTINA-C Work Phone: [facility] HospitalNoxilizer Tathne62-45-8704 09:42-0400Body rhasxp94.85 kgTy CRISTINA-C Work Phone: [facility] HospitalN[facility]il[facility] Dbjibs12-58-7449 09:42-0400Diastolic blood mm[Hg]Ty CRISTINA-C Work Phone: [facility] HospitalN[facility]il[facility] Vywnpt36-06-9062 09:42-0400Heart rate 73 /minTy CRISTINA-C Work Phone: [facility]Point Lyjjxc83-90-7423 09:42-0400Systolic blood edctfeqt212 mm[Hg]Ty CRISTINA-C Work Phone: [facility] HospitalNoxilizer Hrmtbs66-47-6183 17:00-0500Body inqtwv715.45 cmDana Easterwood Other [employer] Other 12-06-2023 08:00-0500Body krmytq740.45 cmDana Easterwood Other [employer] Other 12-06-2023 08:00-0500Body mass index (BMI) [Ratio] 33.48 kg/m2Dana Bonerpullman Other [employer] Other 12-06-2023 08:00-0500Body ivnmwjjwrkt52.2 [degF]Nelida Bonerwood Other [employer] Other 12-06-2023 08:00-0500Body blunja39.43 kgDana Bonwhit Other [employer] Other 12-06-2023 08:00-0500Diastolic blood mm[Hg] Nelida Easterwood Other [employer] Other 12-06-2023 08:00-0500Respiratory rate20 /minDana Easterwood Other [employer] Other 12-06-2023 08:00-5350RkC3% (BldA) [Mass fraction]99 % Nelida Easterwood Other [employer] Other 12-06-2023 08:00-0500Systolic blood adlnzfnc225 mm[Hg] Nelida Easterwood Other [employer] Other 09-11-2023 10:30-0400Body zesuzo859.45 cmDana Bonerwhit Other [employer] Other 09-11-2023 10:30-0400Body mass index (BMI) [Ratio] 33.33 kg/m2Dana Easterwood Other [employer] Other 09-11-2023 10:30-0400Body vmwjcngqrol10 [degF]Nelida Easterwood Other [employer] Other 09-11-2023 10:30-0400Body lrsiej79.98 kgDana Easterwood Other [employer] Other 09-11-2023 10:30-0400Diastolic blood ivzbetes26 mm[Hg] Nelida Easterwood Other [employer] Other 09-11-2023 10:30-0400Respiratory rate20 /minDana Bnored [facility] Other [employer] Other 09-11-2023 10:30-9038MbS8% (BldA) [Mass fraction]99 % Nelida Easterwood Other [employer] Other 09-11-2023 10:30-0400Systolic blood vfyyxxxv443 mm[Hg] Nelida Easterwood Other [employer] Other 08-30-2023 11:00-0400Body polwud755.45 cmDana Easterwood Other [employer] Other 08-30-2023 11:00-0400Body mass index (BMI) [Ratio] 33.48 kg/m2Dana Easterwood Other [employer] Other 08-30-2023 11:00-0400Body tsvjbpyvxwv42.9 [degF]Nelida Ding Other [employer] Other 08-30-2023 11:00-0400Body ejwyqz16.43 kgDamanisha Ding Other [employer] Other 08-30-2023 11:00-0400Diastolic blood plelacfm05 mm[Hg] Nelida Ding Other [employer] Other 08-30-2023 11:00-0400Respiratory rate20 /minDjeromy Ding Other [employer] Other 08-30-2023 11:00-0530GtI0% (BldA) [Mass fraction]98 % Nelida Ding Other [employer] Other 08-30-2023 11:00-0400Systolic blood jpemhjec596 mm[Hg] Nelida Ding Other [employer] Other Encounters Encounter DateEncounter TypeCare ProviderFacilityStart: 69-77-4324mhgbeskefd Inna EbivanlyFacility:[facility] Campustart: 04-29-2025 End: 53-93-5862Ammvweub flow sheetCorey Angel DO Work Phone: [facility] OBGYNComment on above:Third trimester ([facility]); 30 weeks gestation of ([facility])Start: 04-29-2025 End: 60-26-2618ocnwzqaaikVPCXU FAZIONot AvailableStart: 04-22-2025 End: 85-90-3235Znypupdyw Result EncounterCorey Angel DO Work Phone: NOMR External Department UnsolicitedStart: 04-22-2025 End: 63-15-9986Vgcddrgfe Result EncounterCorey Angel DO Work Phone: noms External Department UnsolicitedStart: 04-15-2025 End: 43-96-8580Kqlcwu flowsheetCorey Angel DO Work Phone: NOOR [facility] OBGYNStart: 04-15-2025 End: 43-28-5517Cghhdn flowsheetCorey Angel DO Work Phone: NOZJ [facility] OBGYNStart: 04-15-2025 End: 95-28-8613Yvnkzcjs flow sheetCorey Angel DO Work Phone: NOEN Rhodell OBGYNComment on above:Third trimester ([facility]); 28 weeks gestation of ([facility]); size inconsistent with dates ([facility]); Racing heart beatStart: 04-15-2025 End: 42-21-3947bceecuivwsQSWGA FAZIONot AvailableStart: 04-01-2025 End: 65-05-9993Lyhknimnf Result EncounterInna Kirkland NP Work Phone: NOEN External Department UnsolicitedStart: 04-01-2025 End: 52-23-5993Vgnlnopax Result EncounterInna Kirkland NP Work Phone: noms External Department UnsolicitedStart: 03-18-2025 End: 12-42-2496Ymtyiqtc flow sheetCorey Angel DO Work Phone: NOMS Osiel OBGYNComment on above:Second trimester ([facility]); 24 weeks gestation of ([facility]); Diabetes mellitus screeningStart: 03-18-2025 End: 09-54-3066duzfvntdngGGTRN FAZIONot AvailableStart: 02-18-2025 End: 50-58-1072Lodzezdt flow sheetInna Kirkland NP Work Phone: NOMS Osiel OBGYNComment on above:Nausea and vomiting in ([facility]) (Primary Dx); Second trimester ([facility]); 20 weeks gestation of ([facility]); Elevated heart rate with elevated blood pressure without diagnosis of hypertensionStart: 02-18-2025 End: 16-72-1514ppeiyujtumFOUKALUV EBERLYNot AvailableStart: 02-18-2025 End: 54-06-9312qwadubuujkXJKRE FAZIONot AvailableStart: 01-14-2025 End: 24-78-1752Wtxlnbv encounter procedureCorey Angel DO Work Phone: noms HealthcareStart: 01-14-2025 End: 96-62-4980Uiruzcdv preventive med est patient 18-39 yrsCorey Angel DO Work Phone: noms [facility] OBComment on above:15 weeks gestation of ([facility]); Second trimester ([facility]); Gastroesophageal reflux disease with esophagitis, unspecified whether hemorrhage; Screening, , for anatomic survey ([facility]); Exposure to STD; Vaginal discharge; Well woman exam with routine gynecological exam; Nausea and vomiting in ([facility]); related fatigue in second trimester ([facility]); Insomnia, unspecified type; Other migraine with status migrainosus, not intractableStart: 01-14-2025 End: 31-54-8849sxyuavsybfGGCKX FAZIONot AvailableStart: 01-14-2025 End: 29-13-8109Mecprv flowsheetCorey Angel DO Work Phone: noms BCP OBStart: 01-14-2025 End: 38-37-6958Hdiqqj flowsheetCorey Angel DO Work Phone: noms BCP OBStart: 01-14-2025 End: 13-01-9644Msfvntpnu Result EncounterCorey Angel DO Work Phone: noms External Department UnsolicitedStart: 01-14-2025 End: 91-81-3367Ufbbfihl Result EncounterCorey Angel DO Work Phone: noms External Department UnsolicitedStart: 12-17-2024 End: 40-57-5339Bilipn flowsheetCorey Angel DO Work Phone: NOMS BCP OBStart: 12-17-2024 End: 22-74-3626Akoqxw flowsheetCorey Angel DO Work Phone: NOMS BCP OBStart: 12-17-2024 End: 44-90-7332Xtnijrdd flow sheetCorey Angel DO Work Phone: noMS BCP OBComment on above:11 weeks gestation of ([facility]); First trimester ([facility]); Nausea and vomiting in ([facility]); Gastroesophageal reflux disease with esophagitis, unspecified whether hemorrhage; Meconium aspiration in child of prior , currently , unspecified trimester ([facility])Start: 12-17-2024 End: 14-05-5361khprkcnxmbPVZCU FAZIONot AvailableStart: 12-10-2024 End: 75-27-7282Bqsseloda Result EncounterCorey Angel DO Work Phone: noms External Department UnsolicitedStart: 12-10-2024 End: 73-42-3584Wvyttntfs Result EncounterCorey Angel DO Work Phone: noMS External Department UnsolicitedStart: 12-05-2024 End: 26-81-9205Shdmvx outpatient visit 5 minutesNoms Bcp Ob Angel NurseNOMS BCP OBComment on above:GA: 6u6vNmalz: 12-05-2024 End: 57-33-3488flsamvstwaTSPSK FAZIONot AvailableStart: 07-03-2024 End: 68-23-9743NqwcjjOrneumvYamilex Stratton PA-C Work Phone: [facility] NeurologyComment on above: Migraine without aura and without status migrainosus, not intractableStart: 12-25-2023 End: 84-90-9581temhafzdigKGVP Nelida [facility] Work Phone: [facility] Work Phone: Start: 12-25-2023 End: 57-21-1682Yodnvaz encounter procedureAPRYamilka Crockettred [facility] Work Phone: [facility] Work Phone: Start: 88-61-8057Hjf-patient / Non-visitYANELI Crockettred [facility] Work Phone: [facility] Work Phone: Start: 12-05-2023 End: 84-56-8884bzmqtntozlGVFY Dana [facility] Work Phone: [facility] Work Phone: Start: 12-05-2023 End: 92-14-9906Xldhfoks ReferredYANELI Mendoza [facility] Work Phone: [facility]-LAB Path Spec Osiel HospStart: 11-28-2023 End: 46-52-1843rndsfjvxfjLmmaycgrfOur [facility] Work Phone: Start: 11-28-2023 End: 70-62-9019Djbeham encounter procedureSentara [facility] Physician [facility] Work Phone: Start: 09-19-2023 End: 38-88-2010yndtdudmugJhbemxmpcOur Lady of [facility] Work Phone: Start: 09-19-2023 End: 01-12-8897Gyxcuzz encounter procedureSentara [facility] GroupS[facility] Work Phone: Start: 09-05-2023 End: 29-50-2405izhrawczguQJSUPKO C HAMILTONC[facility] Clinic [facility] Hospitalgay [facility] Centertart: 09-05-2023 End: 64-98-2465Mvqces outpatient visit 25 minutesAnthaleksey Stratton PA-C Work Phone: [facility] Physicians NeurologyComment on above: Migraine without aura and without status migrainosus, not intractable (Primary Dx); Vestibular migraine; Pineal gland cyst; Hx of concussion; Daytime somnolenceStart: 00-77-4926Jfh-patient / Non-visitFirtonia Physician Group-[facility] Work Phone: Start: 07-16-2023 End: 80-51-9911lgzqhcbmuwBscs [facility] Other [employer] Other Start: 08-93-4242Cvjmhgsqb encounterDana [facility] Family [facility] Hospitalomment on above:WEENING OFF QULIPTAStart: 07-09-2023 Patient encounter procedureBelle Physician Group-Start: 06-06-2023 End: 38-30-8114ezocogmofbSacj [facility] Other [employer] Other Start: 65-04-1755EU ONLINE E/M JOHAN DICKINSON 05-14Dana [facility] Family [facility] Hospitaltart: 97-72-0476Wxipsfopc encounterDana [facility] Hospitaltart: 05-30-2023 End: 97-21-7243xubyxlduqcSfqk [facility] Other [employer] Other Start: 54-60-4850Wijrcd outpatient visit 25 minutes Nelida [facility] Centertart: 05-25-2023 End: 77-14-3888diymueffgxPcow [facility] Other [employer] Other Start: 16-60-2064Tvfaoprol encounterDana [facility] Family [facility] Hospitaltart: 05-03-2023 End: 72-16-7057fkzmnsytceJovw [facility] Other [employer] Other Start: 86-73-5703Hsflwrxrn encounterDana [facility] Family [facility] Hospitaltart: 03-05-2023 End: 06-15-0939sodkdriatjKjrg [facility] Other noNovel[employer] Other Start: 34-76-0402Kjhgom outpatient visit 25 minutes Nelida [facility] CenterkStart: 02-21-2023 End: 83-66-8891jhriamueqcGjmb [facility] Other [facility] [employer] Other Start: 86-72-5516Fdqagu outpatient visit 40 minutes Nelida [facility] MexicokStart: 36-73-6283Ojdudbybu encounter Nelida [facility] Centertart: 11-01-2022 End: 52-45-4421zqvfiuxxitMY JUNITO ANGEL .Facility:Z6Vluij: 09-06-2022 End: 89-96-3014poryzctdiwMV JUNITO ANGEL .Facility:T0Jzrey: 08-26-2022 End: 66-32-3828sesiknfhdePH JUNITO ANGEL .Facility:J3Ziloz: 08-02-2022 End: 34-22-9972nfdciunamuST JUNITO ANGEL .Facility:M1Ddcbw: 07-12-2022 End: 58-25-7471mcboirpwpiNE GIA Yocility:H1 Procedures DateProcedureProcedure DetailPerforming ClinicianStart: 78-58-4258Cfxzx dip stick/tablet rgnt non-auto w/o micrscpCorey Angel DO Work Phone: Start: 63-44-6746ZK ECHO DOPPLER COMPLETECorey Angel DO Work Phone: Start: 09-55-2713JUB 12-LEADCorey Angel DO Work Phone: Start: 84-12-1434Cxbmh dip stick/tablet rgnt non-auto w/o micrscpCorey Angel DO Work Phone: Start: 15-33-8421SBBBKYZ 1 HOURInna Kirkland ULTRASOUND TECHNOLOGIST Work Phone: Start: 77-14-9917Atldj dip stick/tablet rgnt non-auto w/o micrscpInna Kirkland ULTRASOUND TECHNOLOGIST Work Phone: Start: 15-52-2594Amzbx dip stick/tablet rgnt non-auto w/o micrscpInna Kirkland ULTRASOUND TECHNOLOGIST Work Phone: Start: 12-18-8149MMUMDXFKY VAGINITIS (HTRX)Junito Angel DO Work Phone: Start: 31-42-0580Legiz dip stick/tablet rgnt non-auto w/o micrscpCorey Angel DO Work Phone: Start: 47-06-9530DGF,APTIMA HPV,AGE GDLNCorey Angel DO Work Phone: Start: 99-57-1795Wwrzq dip stick/tablet rgnt non-auto w/o micrscpCorey Angel DO Work Phone: Start: 78-84-8919ZCR CBC WITH AUTO DIFFCorey Angel DO Work Phone: Start: 12-05-2024 End: 37-76-0036Vicbp dip stick/tablet rgnt non-auto w/o micrscpCorey Angel DO Work Phone: Start: 93-22-3842Eqdcbc-up visitFollow-Janeht STRATTONStart: 75-17-0135Uynhe depression screening assessmentBaptist Medical Center [facility] Plan of Treatment DateCare ActivityDetailAuthorStart: 05-13-2025 End: 03-27-1101Hcduinb encounter tdfbsnjui89/19/2025 1:20 PM EST Routine NATALIE KEARNS [address] [place], [id number] Nicole Ghosh PA [address] [place] [address] [facility] OBGYNStart: 04-29-2025 End: 35-29-1246Klfnkvk encounter viwjjjrhi90/05/2025 1:30 PM EST Routine [facility] [address] [place], [id number] Junito Ortiz, DO [address] [place] [address] N[facility] OBGYNStart: 04-29-2025 End: 85-46-5637Nodaeldwjotm / ancillary services tdzrcyzhap16/05/2025 1:00 PM EST Ancillary Procedure [facility] [address] [place] [id number] NOM[facility] OBGYNStart: 04-15-2025 End: 30-65-9578Jmhctdewdccyzh 2D completeEchocardiogram 2D complete Echocardiography Routine Racing heart beat Expected: 04/15/2025 (Approximate), Expires: 04/15/2027[facility] Work Phone: comment on above:Expected: 04/15/2025 (Approximate), Expires: 04/15/2027Start: 04-15-2025 End: 06-59-8445EW for pregnancyUS OB follow up transabdominal approach Imaging Routine size inconsistent with dates ([facility]) Expected: 04/15/2025, Expires: 08/16/2025NONV HealthcareComment on above:Expected: 04/15/2025, Expires: 08/16/2025Start: 04-15-2025 End: 36-01-1816Tmoswdp encounter procedureNOMS Rhodell OBGYNComment on above: ArrivedStart: 03-18-2025 End: 31-87-2195Csqrgvu encounter mfvfdvuzx92/24/2025 2:20 PM EDT Routine [facility] [address] [place], [id number] Junito Ortiz, DO [address] [place] [address] NATALIE [place] OBGYNStart: 03-18-2025 End: 13-54-5672SCW panel - Blood by Automated countCBC Lab Routine Diabetes mellitus screening Expected: 03/18/2025 (Approximate), Expires: 03/18/2026[facility] Work Phone: comment on above:Expected: 03/18/2025 (Approximate), Expires: 03/18/2026Start: 03-18-2025 End: 29-84-6486Xcigcjywsmq of glucose 1 hour after glucose challenge for glucose tolerance testGlucose tolerance, 1 hour Lab Routine Diabetes mellitus screening Expected: 03/18/2025 (Approximate), Expires: 03/18/2026[facility] HealthcareComment on above:Expected: 03/18/2025 (Approximate), Expires: 03/18/2026Start: 56-41-3612AQARV-19 Vaccine ( season)COVID-19 Vaccine ()[facility]-6346Epuempdbl vaccinationLee[facility] Summit Hospital Start: 02-18-2025 End: lead ECGECG 12 lead unit performed ECG Routine Elevated heart rate with elevated blood pressure without diagnosis of hypertension Expected: 02/18/2025 (Approximate), Expires: 02/18/2026[facility] Work Phone: comment on above:Expected: 02/18/2025 (Approximate), Expires: 02/18/2026Start: 02-18-2025 End: 65-25-1858Towkeqh encounter procedureNOMS [facility] OBStart: 02-18-2025 End: 18-29-5465Evixkadbhnxr / ancillary services managementNOMS BCP OBStart: 01-14-2025 End: 52-93-6036Pakpsim encounter caizftedw99/23/2025 2:40 PM EDT Routine [facility] [address] [place] [id number] Junito Ortiz, DO [address] [place], [place] [id number] NOM[facility] BCP OBStart: 01-14-2025 End: 83-39-3087Wxnta fetoprotein, maternalAlpha fetoprotein, maternal Lab Routine Second trimester ([facility] Expected: 01/14/2025 (Approximate), Expires: 03/17/2025[facility] HealthcareComment on above:Expected: 01/14/2025 (Approximate), Expires: 03/17/2025Start: 01-14-2025 End: 78-56-7691QH for pregnancyUS OB 14+ weeks anatomy scan Imaging Routine Screening, , for anatomic survey ([facility]) Expected: 01/14/2025, Expires: 04/16/2025NONV HealthcareComment on above:Expected: 01/14/2025, Expires: 04/16/2025Start: 12-17-2024 End: 79-71-4245Jocgbhg encounter procedureNOCOASTAL COMM[facility] OBComment on above:Arrived Start: 12-05-2024 End: 18-02-8467VWZ/RhABO/Rh Lab Routine Missed menses , unspecified gestational age ([facility]) Expected: 12/05/2024 (Approximate), Expires: 12/05/2025NONV HealthcareComment on above:Expected: 12/05/2024 (Approximate), Expires: 12/05/2025Start: 12-05-2024 End: 63-54-0521Nqlyl type and Indirect antibody screen panel - BloodType and screen Lab Routine Missed menses , unspecified gestational age ([facility]) Expected: 12/05/2024 (Approximate), Expires: 12/05/2025[facility] Healthcare Work Phone: comment on above:Expected: 12/05/2024 (Approximate), Expires: 12/05/2025Start: 12-05-2024 End: 04-16-4356Caryr of abuse panel - Urine by Screen methodRapid drug screen, urine Lab Routine , unspecified gestational age ([facility]) Encounter for supervision of normal first in first trimester ([facility]) Expected: 12/05/2024 (Approximate), Expires: 12/05/2025NONV HealthcareComment on above: Expected: 12/05/2024 (Approximate), Expires: 12/05/2025Start: 12-05-2024 End: 14-97-5498Pdtzgxcmbjy [Mass/volume] in Serum or PlasmaTransferrin Lab Routine Dizzy Lightheaded Expected: 12/05/2024 (Approximate), Expires: 12/05/2025[facility] HealthcareComment on above:Expected: 12/05/2024 (Approximate), Expires: 12/05/2025Start: 78-11-7724Qreau BMI ScreeningAdult BMI Screening [facility]: 09-56-3498Tlylzxo ScreeningTobacco Screening [facility]tart: 65-75-1321Wuamm BMI ScreeningAdult BMI Screening [facility]tart: 59-29-0621Zcjdmymtqu ScreeningDepression Screening [facility] SystemStart: 71-57-8648Gfcrzpg ScreeningTobacco Screening [facility]tart: 00-29-3474Ktqrrczph vaccinationInfluenza Vaccine [facility] Hospitaltart: 12-12-2023 End: 21-37-3621Tmyftwx encounter uouziaxvt21/19/2024 9:00 AM EDT Office Visit [facility] [address] [place] [address] Ty Stratton, ABEBE [address] [place] [address] [facility] Start: 12-06-2023 End: 58-76-4319SO Brain WO contrastMR brain without contrast Imaging Routine Migraine without aura and without status migrainosus, notintractable Vestibular migraine Pineal gland cyst Expected: 12/06/2023 (Approximate), Expires: [facility]/04[facility] Work Phone: Comment on above:Expected: 12/06/2023 (Approximate), Expires: 09/04/2024Start: 10-31-2023 End: 40-90-6589Fvqqbxe encounter hrnzxlajh78/08/2024 8:45 AM EDT Office Visit [facility] [address] [place] [address] Jani Mir MD [address] [place] [address] [facility]ocr[facility]ologyStart: 10-24-2023 End: 00-03-9045Cwpmwbv encounter /01/2024 10:00 AM EDT Office Visit [facility] [address] [phone] Megan Lopez APRN-PHOTOGRAPHIC PLATE MAKER [address] [facility] [address] [place] [address] [facility]/Sleep MedicineStart: 09-05-2023 End: 78-89-7955Elkatge encounter dyvrowzfr33/13/2024 9:30 AM EDT Office Visit [facility] [address] [place] [phone] Ty Stratton PA-C [address] [place] [address] [facility] Start: 08-01-2023 End: 47-47-9845Dssfypa encounter okktwrtxw65/07/2024 10:30 AM EST Office Visit [facility] [address] [place] [address] Jani Mir MD [address] [place] [address] [facility] EndocrinologyStart: 61-33-6763Ubpzfcosb vaccinationInfluenza Vaccine [facility] SystemStart: 35-59-5848FBG Vaccines (1 - 3-dose SCDM series)HPV Vaccines (1 - 3-dose SCDM series)[facility] HealthcareStart: 30-77-0087Dnyizoyxi for malignant neoplasm of cervixPap SmearAvita Health System SystemStart: 12-19-2014 DTaP,Tdap and Td Vaccines (1 - Tdap)DTaP,Tdap and Td Vaccines (1 - Tdap) [facility] SystemStart: 55-24-2668Ahcpgjath B Vaccines (1 of 3 - 19+ 3- dose series)Hepatitis B Vaccines (1 of 3 - 19+ 3-dose series)[facility] Start: 43-77-7477Gwxnv BMI Follow Up PlanAdult BMI Follow Up PlanAvita Health System SystemStart: 30-77-3384Nuzktvg of varicella vaccinationVaricella Vaccines (1 of 2 - 13+ 2-dose series)[facility] HealthcareStart: 89-40-0141SZpY/Tdap/Td Vaccines (1 - Tdap)DTaP/Tdap/Td Vaccines (1 - Tdap)[facility] HealthcareStart: 69-03-6004KVW Vaccines (1 of 1 - Standard series)MMR Vaccines (1 of 1 - Standard series)[facility] HospitalBacteria identified in Urine by CultureUrine culture Microbiology Routine Missed menses Ordered: 12/05/2024[facility] HealthcareComment on above:Ordered: 12/05/2024BC W Auto Differential panel - BloodCBC and differential Lab Routine Missed menses , unspecified gestational age ([facility]) Ordered: 12/05/2024[facility] HealthcareComment on [...] Routine Missed menses , unspecified gestational age ([facility]) Ordered: 12/05/2024[facility] HealthcareComment on above:Ordered: 12/05/2024Hepatitis B virus surface Ag [Presence] in Serum or Plasma by ImmunoassayHepatitis B surface antigen Lab Routine Missed menses , unspecified gestational age ([facility]) Ordered: 12/05/2024[facility] HealthcareComment on above:Ordered: 12/05/2024Hepatitis C virus Ab [Presence] in Serum or Plasma by ImmunoassayHepatitis C antibody Lab Routine Missed menses , unspecified gestational age ([facility]) Ordered: 12/05/2024[facility] HealthcareComment on above:Ordered: 12/05/2024HIV-1/HIV-2 antigen/antibody combination immunoassayHIV-1 and HIV-2 antibodies Lab Routine Missed menses , unspecified gestational age ([facility]) Ordered: 12/05/2024[facility] HealthcareComment on above:Ordered: 12/05/2024Neisseria gonorrhoeae DNA [Presence] in Unspecified specimen by HANNAH with probe detectionNeisseria gonorrhea DNA probe, direct Lab Routine Exposure to STD Ordered: 01/14/2025[facility] HealthcareComment on above:Ordered: 01/14/2025Reagin Ab [Presence] in Serum by RPRRPR Lab Routine Missed menses , unspecified gestational age ([facility]) Ordered: 12/05/2024[facility] HealthcareComment on above:Ordered: 12/05/2024 Rubella antibody, IgGRubella antibody, IgG Lab Routine Missed menses , unspecified gestational age ([facility]) Ordered: 12/05/2024[facility] HealthcareComment on above:Ordered: 12/05/2024SURESWAB(R) ADVANCED VAGINITIS PLUS, TMASURESWAB(R) ADVANCED VAGINITIS PLUS, TMA Pathology and Cytology Routine Vaginal discharge Ordered: 01/14/2025[facility] Healthcare Work Phone: comment on above:Ordered: 01/14/2025 Immunizations Immunization DateImmunizationNotesCare UhvgtfkbTsuxyzio89-65-2007tgfukay and diphtheria toxoids, adsorbed, preservative free, for adult use (5 Lf of tetanus toxoid and 2 Lf of diphtheria toxoid)[facility]08-13-2020 tetanus toxoid, reduced diphtheria toxoid, and acellular pertussis vaccine, jigneshDamanisha Ding Other [facility] [employer] Other Payers DatePayer CategoryPayerPolicy [id number] Health [id number] Care Other (unspecified)[facility] ..[id number] Health Insurance [id number] Health Insurance [id number] 1.559134.3.57[id number] ..1.322569.3.57[id number] ..1.507106.3.57[id number] 2..1.623383.3.57[id number] 2..1.085139.3.57[id number] 2.16.840.1.432933.3.57[id number] 2.16.840.1.700224.3.57[id number] 2.16.840.1.606752.3.57[id number] 2.16.840.1.370285.3.57[id number] 2.16.840.1.261665.3.57[id number] 2.16.840.1.245202.3.579.[id number] 2..840.1.141765.3.57[id number] 2.16.840.1.383964.3.57[id number] 2.16.840.1.848839.3.579.[id number] 2.16.840.1.993448.3.57[id number] 2.840.1.263127.3.57[id number] 2.840.1.060340.3.579.2.320008-11-0577Vsojwab Health [id number] Private Health InsuranceMount Carmel Health [id number] 2.840.1.456196.3.579.2.531 Social History DateTypeDetailFacilityStart: 12-19-2019 End: 04-19-3557Vbr Assigned At [facility] [employer] Other Start: 09-03-2023 End: 18-57-0164Sgpyjwo smoking status NHISNever smoked tobacco (finding) [facility] Campustart: 70-36-5846Udp Assigned At [facility] HospitalFeMer[facility] Hospitaltart: 03-21-2023 End: 34-60-3325Piyccfw use and exposureSmokeless tobacco non-userAvita Health System SystemStart: 09-05-2023 End: 32-06-3738Zqxngbrff beverage intakeCurrent drinker of alcohol (finding) [facility] Cell>Point [facility] Centertart: 12-19-2019 End: 24-98-0020Mxazwyd of Social functionChillicothe HospitalHow often to you have a drink containing alcohol?NeverNovant Health Medical Park Hospitaltart: 09-06-2022 Average Number of DrinksNot on [facility] Healthcaretart: 03-21-2023 Alcohol CommentsocialNovant Health Medical Park Hospitaltart: 72-02-4018Mvd assigned at [facility] healthNot on [facility] Healthcaretart: 74-06-6281IhxKsgdte (finding) [facility] Hospitaltart: 97-86-0063Lzzzjfx CommentOne drink per monthLee's Summit HospitalStart: 51-37-3854MdecishgrXKSK Healthcare Clinical Notes 02-04-2020 to 04-29-2025 Note Date & JdklWdzvLudxdreu50-37-9510 History of Present illness Narrative* Inna Kirkland [...] Positive urine test ([facility]) 12/03/2024 Resolved Ambulatory Problems Diagnosis Date Noted [...] nursing note reviewed. Exam conducted with a coremaker helper present. Vitals: Estimated body mass index is 34.36 kg/m as calculated from the following: Height as of 01/23/24: 5' 8 . Weight as of 04/15/25: 226 lb. BP: Patient's last menstrual period was 09/28/2024. Assessment/Plan ICD-10-CM 1. Third trimester ([facility]) Z34.93 2. 30 weeks gestation of ([facility]) Z3A.30 POCT urinalysis dipstick manually resulted Return [...] of: Junito Ortiz DO documented in this encounterLee's Summit HospitalTfnmyiquyy99-04-3930 History of Present illness Narrative* Saumya Simmons [...] Positive urine test ([facility]) 12/03/2024 Resolved Ambulatory Problems Diagnosis Date Noted [...] nursing note reviewed. Exam conducted with a coremaker helper present. Vitals: Estimated body mass index is 33.15 kg/m as calculated from the following: Height as of 01/23/24: 5' 8 . Weight as of 03/18/25: 218 lb. BP: Patient's last menstrual period was 09/28/2024. Assessment/Plan ICD-10-CM 1. Third trimester ([facility]) Z34.93 2. 28 weeks gestation of ([facility]) Z3A.28 POCT urinalysis dipstick manually resulted Return [...] of: Junito Ortiz DO documented in this encounterLee's Summit HospitalZkxlwnlbul13-02-5455 History of Present illness Narrative* Ariadna Bowden [...] Positive urine test ([facility]) 12/03/2024 Resolved Ambulatory Problems Diagnosis Date Noted [...] nursing note reviewed. Exam conducted with a coremaker helper present. Vitals: Estimated body mass index is 33.15 kg/m as calculated from the following: Height as of 01/23/24: 5' 8 . Weight as of this encounter: 218 lb. BP: 122/70 Patient's last menstrual period was 09/28/2024. ASSESSMENT & PLAN ICD-10-CM 1. Second trimester ([facility]) Z34.92 POCT urinalysis dipstick manually resulted 2. 24 weeks gestation of ([facility]) Z3A.24 3. Diabetes mellitus screening Z13.1 CBC [...] for routine OB appointment. Documented by Ariadna Bowedn MA on behalf of: Junito Ortiz DO documented in this encounterLee's Summit HospitalNrmsqcafhg49-03-0907 History of Present illness Narrative* Inna Kirkland [...] Positive urine test ([facility]) 12/03/2024 Resolved Ambulatory Problems Diagnosis Date Noted [...] nursing note reviewed. Exam conducted with a coremaker helper present. Vitals: Estimated body mass index is 31.75 kg/m as calculated from the following: Height as of 24: 5' 8 . Weight as of this encounter: 208 lb 12.8 oz. BP: 116/70 Patient's last menstrual period was 09/28/2024. ASSESSMENT & PLAN ICD-10-CM 1. Nausea and vomiting in ([facility]) O21.9 promethazine (Phenergan) 12.5 MG tablet 2. Second trimester ([facility]) Z34.92 POCT urinalysis dipstick manually resulted 3. 20 weeks gestation of ([facility]) Z3A.20 POCT urinalysis dipstick manually resulted [...] of: Inna Kirkland NP documented in this encounterLee's Summit HospitalIpmlpdghmi12-80-7957 History of Present illness Narrative* Saumya Simmons [...] Problems Diagnosis Date Noted Positive urine test ([facility]) 12/03/2024 Resolved Ambulatory Problems Diagnosis Date [...] nursing note reviewed. Exam conducted with a coremaker helper present. Vitals: Estimated body mass index is 30.99 kg/m as calculated from the following: Height as of 7/31/24: 5' 8 . Weight as of this encounter: 203 lb 12.8 oz. BP: 110/70 Patient's last menstrual period was 09/28/2024. ASSESSMENT & PLAN ICD-10-CM 1. 15 weeks gestation of ([facility]) Z3A.15 POCT urinalysis dipstick manually resulted 2. Second trimester ([facility]) Z34.92 POCT urinalysis dipstick manually resulted Alpha fetoprotein, maternal Alpha fetoprotein, maternal 3. Gastroesophageal reflux disease with esophagitis, unspecified whether hemorrhage K21.00 4. Screening, , for anatomic survey ([facility]) Z36.89 US OB 14+ weeks anatomy scan US OB 14+ weeks anatomy scan 5. Exposure to STD Z20.2 CHLAMYDIA TRACHOMATIS (GENITO/STI) Neisseria gonorrhea DNA probe, direct 6. Vaginal discharge N89.8 SURESWAB(R) ADVANCED VAGINITIS PLUS, TMA 7. Well woman exam with routine gynecological exam Z01.419 Pap Smear Return OB/Annual Exam: Patient presents today for a annual exam/routine obstetrics appointment. Patient is currently 04g1teaxhpqhs. Patient states she is doing well but [...] of: Junito Ortiz DO documented in this encounterLee's Summit HospitalIijpxewdbn33-62-7207 History of Present illness Narrative* Saumya Simmons [...] Positive urine test ([facility]) 12/03/2024 Resolved Ambulatory Problems Diagnosis Date Noted [...] nursing note reviewed. Exam conducted with a coremaker helper present. Vitals: Estimated body mass index is 29.73 kg/m as calculated from the following: Height as of 01/23/24: 5' 8 . Weight as of this encounter: 195 lb 8 oz. BP: 110/62 Patient's last menstrual period was 09/28/2024. ASSESSMENT & PLAN ICD-10-CM 1. 11 weeks gestation of ([facility]) Z3A.11 POCT urinalysis dipstick manually resulted 2. First trimester ([facility]) Z34.91 3. Nausea and vomiting in ([facility]) O21.9 4. Gastroesophageal reflux disease with esophagitis, unspecified whether hemorrhage K21.00 pantoprazole (Protonix) 40 MG EC tablet 5. Meconium aspiration in child of prior , currently , unspecified trimester ([facility]) O09.299 New OB: Patient presents today for [...] or undercooked meat, and stay away from [facility]. Patient has been consulted regarding any further do's and don'ts of . Patient voiced understanding and all questions and concerns were answered. Orders Placed This Encounter Procedures POCT urinalysis dipstick manually resulted Follow Up: Patient is to return in 4 weeks for routine OB appointment. Documented by Saumya Simmons LPN on behalf of: Junito Ortiz DO documented in this encounterLee's Summit HospitalWgbvujeesq10-63-1857 History of Present illness Narrative* Carissa Castro, CHILD CARE ASSOCIATE - 12/05/2024 10:00 AM EDT Reason for [...] Positive urine test ([facility]) 12/03/2024 Resolved Ambulatory Problems Diagnosis Date Noted [...] dipstick manually resulted , unspecified gestational age ([facility]) - Type and screen; Future - ABO/Rh; Future - CBC and differential - Hemoglobin A1c - RPR - Rubella antibody, IgG - Hepatitis B surface antigen - Hepatitis C antibody - HIV-1 and HIV-2 antibodies - Rapid drug screen, urine; Future Encounter for supervision of normal first in first trimester ([facility]) - Rapid drug screen, urine; Future Dizzy [...] or undercooked meat, and stay away from [facility]. Patient has also been advised to not [...] by: Carissa Castro LPN documented in this encounterLee's Summit HospitalGgoecaghwv27-97-2010 Evaluation note* Author Jake Fitzgerald [facility] CenterAuthoredWatauga Medical Center 2023 9:29amPatient positive for intermittent nausea occurring once or twice monthly patient does note slight appetite changes however this is minimal patient did report periods of weight loss however patient has maintained her weight for many months at this point. Patient is negative for hematemesis, abdominal pain and family history of esophageal and gastric cancer. [facility] Work Phone: [phone] 342-851203-13-2024 History of Present illness Narrative* Ty Stratton PA-C - 09/05/2023 9:30 AM EDT [facility] Office Note 09/05/2023 8:59 AM Patient info: Nathaniel Bob is a 27 y.o. female Account No.: [id number] Acct: : 1995 PCP: IVON Wadsworth Chief [...] small cyst. CT Head recently completed at [facility] (February,) - reportedly was normal but results [...] concussion at age 6 (-) hx of HIDE CURER infection: (-) hx of stroke/cerebrovascular malformation: (-) [...] without aura, often with associated vestibular symptoms. Ggas-ti-wihimzqu PEREZ's are often present upon waking, while [...] Stratton PA-C 09/06/23 0832 documented in this encounterCleveland Clinic [facility] HospitalCampus Connectr [facility] MichiganPspimf08-55-5045 Miscellaneous Notes* Telephone Encounter - Viviane Jamison [...] refill again. Please advise and contact patient [phone] * Telephone Encounter - Aimee Lombardo CMA [...] informed and voiced understanding. documented in [facility] encounterAccess [facility] Cell[facility]Point Aozxfb88-13-4192 Telephone encounter Note* Telephone Encounter - Viviane [...] refill again. Please advise and contact patient [phone] [facility] Cell>Point Keadrm34-89-2347 Telephone encounter Note* Telephone Encounter - Aimee Lombardo CMA - 07/16/2023 12:39 PM EST The patient is currently taking 60 mg 1 tab in the am of Qulipta. The patient was last seen in clinic 05/23/2023 and is scheduled to follow up 09/05/2023. [facility] CenterGastrofy Ugadft61-73-5188 Telephone encounter Note* Telephone Encounter - Ty Stratton PA-C - 07/16/2023 12:39 PM EST Take 1/2 tablet daily for 6 days, then Discontinue. - [facility]Point Ugqvdv27-33-2672 Telephone encounter Note* Telephone Encounter - Yelitza Pickens RN - 07/16/2023 12:39 PM EST Patient informed and voiced understanding. [facility] CenterBuyPlayWinFejlgp59-84-0811 Evaluation note* Encounter Date Diagnosis Assessment Notes [...] albuterol. Continue to monitor closely. Can take mycj-gbn-mfdosnz medication for symptom relief. Exercise conservative measures, [...] that were not corrected during review process. [employer] Other 12-06-2023 Evaluation note* Encounter Date Diagnosis [...] that were not corrected during review process. [employer] Other 09-11-2023 Evaluation note* Encounter Date Diagnosis [...] that were not corrected during review process. [employer] Other 08-30-2023 Evaluation note* Encounter Date Diagnosis [...] will also forward these to endocrinology through [employer]. Jan,Elevated cortisol level (ICD-10 - E27.0)Extensive lab [...] will also forward these to endocrinology through [facility]. Jan,Nausea (ICD-10 - R11.0)I would like her [...] and is agreeable. We will refer to [facility] neurology so the same electronic medical record [...] and is agreeable. We will refer to [facility] neurology so the same electronic medical record [...] that were not corrected during review process. [employer] Other 02-22-2022 Note [id number]#1.00[facility]10-15-2021 [id number]#1.00[facility] 02-04-2020 History general Narrative - Reported* Type Description Date Medical History Anxiety Medical HistoryDepressionMedical HistorySeasonal allergiesHospitalization HistoryChildbirth02/04/2020Hospitalization WkzueozMnngkorvxl74/15/2021 [facility] Other Evaluation noteNo InformationNortPenn State Health Rehabilitation [facility] Other Evaluation noteNo assessment information available [facility] Work Phone: Evaluation note* Diagnosis Onset Date Resolution Status Acid reflux acuteAnxietyacuteMigrainesacuteNauseaacute [facility] Work Phone: Evaluation note* Diagnosis Migraine without aura and without status migrainosus, not intractable documented in this encounter [facility] SystemEvaluation [facility]* Diagnosis Migraine without aura and without status migrainosus, not intractable- Primary Vestibular migraine Pineal gland cyst Other specified endocrine disorders Hx of concussion Daytime somnolence documented in this [facility]* Diagnosis Missed menses , unspecified gestational age ([facility]) Encounter for supervision of normal first in first trimester ([facility]) Dizzy Dizziness and giddiness Lightheaded Dizziness and giddiness documented in this encounter [facility] HealthcareEvaluation note* Diagnosis 11 weeks gestation of ([facility]) First trimester ([facility]) state, incidental Nausea and vomiting in ([facility]) Unspecified vomiting of , unspecified as to episode of care Gastroesophageal reflux disease with esophagitis, unspecified whether hemorrhage Meconium aspiration in child of prior , currently , unspecified trimester ([facility]) documented in this encounter [facility] HealthcareEvaluation note* Diagnosis 15 weeks gestation of ([facility]) Second trimester ([facility]) state, incidental Gastroesophageal reflux disease with esophagitis, unspecified whether hemorrhage Screening, , for anatomic survey ([facility]) Encounter for anatomic survey Exposure to STD Vaginal discharge Leukorrhea, not specified as infective Well woman exam with routine gynecological exam Routine gynecological examination Nausea and vomiting in ([facility]) Unspecified vomiting of , unspecified as to episode of care related fatigue in second trimester ([facility]) Insomnia, unspecified type Other migraine with status migrainosus, not intractable documented in this encounter [facility] Diagnosis Nausea and vomiting in ([facility] Primary Unspecified vomiting of , unspecified as to episode of care Second trimester ([facility]) state, incidental 20 weeks gestation of ([facility]) Elevated heart rate with elevated blood pressure without diagnosis of hypertension documented in this encounter [facility]* Diagnosis Second trimester ([facility]) state, incidental 24 weeks gestation of ([facility]) Diabetes mellitus screening Screening for diabetes mellitus documented in this encounter [facility]* Diagnosis Third trimester ([facility]) state, incidental 28 weeks gestation of ([facility]) size inconsistent with dates ([facility]) Racing heart beat Unspecified tachycardia documented in this encounter [facility]* Diagnosis Third trimester ([facility]) state, incidental 30 weeks gestation of ([facility]) documented in this encounter [facility] Narrative - Reported* Type Description Date Medical History Anxiety Medical HistoryDepressionMedical HistorySeasonal allergiesMedical History Elevated cortisol levelMedical HistoryElevated DHEAMedical HistoryMigraines Hospitalization HistoryChildbirth02/04/2020Hospitalization HistoryChildbirth 06/08/2021 [employer] Other InstructionsNot on filedocumented in this encounter [facility] SystemInstructionsNot on filedocumented in this encounter ProMedicGastro[facility] SystemInstructionsNot on filedocumented in this encounter [employer] [facility] Summary Purpose Family History No Family [...] 1 Elevated DHEA (E27.8 ) [facility]erring Provider First Name Nelida Referring Provider Last Name [facility] Referring Provider Specialty Nurse Pract itioner Referred Organization [facility] Referred Address [address],[address] Referred Provider Specialty Endocrinolog y Referral Priority Routine Reason Neuro [facility]- sev eral ongoing neuro symptoms Pending CT head at [facility] Diagnosis 1 Dizziness (R42) Referral Organization [facility] Referring Provider First Name Nelida Referring Provider Last Name [facility] Referring Provider Specialty Nurse Pract itioner Referred Organization [facility] Referred Address [address],[address] Referred Provider Specialty Neurology Referral Priority Routine SpecialtyDiagnoses / ProceduresReferred By ContactReferred To ContactRadiology Diagnoses Migraine without aura and without status migrainosus, not intractable Vestibular migraine Pineal gland cyst Procedures MR brain without contrast Ty Stratton PA-C [address] [place] [address] Referral IDStatusReasonStart DateExpiration DateVisits RequestedVisits [id number] Review/[id number] / ProceduresReferred By ContactReferred To ContactSleep Medicine Diagnoses Daytime somnolence Ty Stratton PA-C [address] [place] [address] Yanira Partida MD [address] [place] [address] Referral IDStatusReasonStart DateExpiration DateVisits RequestedVisits [id number] Review Specialty Services Required Chief Complaint and [...] section and content) DATE CREATED AUTHOR 11/14/2021 [facility] DATE CREATED AUTHOR AUTHOR'S ORGANIZ ATION 11/05/2022 [facility] DATE CREATED AUTHOR AUTHOR'S ORGANIZ ATION 09/06/2023 [facility] DATE CREATED AUTHOR AUTHOR'S ORGANIZ ATION 05/01/2025 [facility] DATE CREATED AUTHOR AUTHOR'S ORGANIZ ATION 05/07/2025 [facility] REASON FOR VISIT (unrecogniz ed section and content) ReasonCommentsMed RefillReasonOnset DateCommentsWEENING OFF [id number]/16/2023 ReasonCommentsFollow-upPatient is here today for 3 month [...] 25, 2023Team MemberRelationshipSpecialtyStart DateEnd Date BonivanJeremy shermana, FENCE SUPERVISOR-PHOTOGRAPHIC PLATE MAKER [address] [address] PCP - [facility]04/06/23Team MemberRelationshipSpecialtyStart Date End Date BonivanJermey shermana, FENCE SUPERVISOR-PHOTOGRAPHIC PLATE MAKER [address] [address] PCP - [facility]04/06/23Team MemberRelationshipSpecialtyStart Date End Date Bonakosua Nelida, FENCE SUPERVISOR-PHOTOGRAPHIC PLATE MAKER [address] [address] [facility] Rigtfajm77/13/23Team MemberRelationshipSpecialtyStart Date End Date Unallocated, Meryls MD Chun [facility] [place] [address] [facility] Bsfyidbn22/14/24 Treasure [place] DO [address] [place] [id number] Referring EkndnwyqnDrilwyzlz67/14/24Team MemberRelationshipSpecialtyStart Date End Date Unallocated, Natalie Mccollum MD [facility] [place] [address] PCP - [facility]05/08/24 Treasure England DO [address] [place] [address] Referring LcmvjwlcbTszrsvmkl00/14/24Team MemberRelationshipSpecialtyStart Date End Date Unallocated, Natalie Mccollum MD [address] [place] [address] PCP - [facility]05/08/24 Treasure [place] DO [address] [place] [id number] Referring IhgppntfcLazzcirfa12/14/24Team MemberRelationshipSpecialtyStart Date End Date Unallocated, Natalie Mccollum MD [facility] [place] [address] PCP - [facility]05/08/24 Treasure [place] DO [address] [place] [address] Referring XpehsrqqdDjvczmnvm79/14/24Team MemberRelationshipSpecialtyStart Date End Date Unallocated, Noms MD [facility] [place] [address] PCP - [facility]05/08/24 Treasure [place] DO [address] [place] [place] [id number] Referring LltpxuozhXqtlhochl74/14/24Team MemberRelationshipSpecialtyStart Date End Date Unallocated, Noms ProviderMD [facility] [place] [address] PCP - [facility]05/08/24 Treasure [place] DO [address] [place] [address] Referring NjahxzkqbOosxodgjq06/14/24Team MemberRelationshipSpecialtyStart Date End Date Unallocated, Noms MD Chun [facility] [place] [address] PCP - [facility]05/08/24 Treasure [place] DO [address] [place] [id number] Referring ZonzpssxxWjelrfhsi42/14/24Team MemberRelationshipSpecialtyStart Date End Date Unallocated, Meryls MD Chun [facility] [place] [address] PCP - [facility]05/08/24 Treasure [place] DO [address] [place] [address] Referring JlrbbmkpyWjpybhvny40/14/24Team MemberRelationshipSpecialtyStart Date End Date Unallocated, Meryls MD [facility]un [place] [place] [address] PCP - [facility]05/08/24 Treasure England DO [address] [place] [address] Referring PpilzrvndIyhwhtasy94/14/24Team MemberRelationshipSpecialtyStart Date End Date Unallocated, Meryls MD [facility]un [facility] [place] [address] [facility] - [facility]05/08/24 Treasure England DO [address] [place] [address] Referring LuyrgubmpEccrprxjx52/14/24Team MemberRelationshipSpecialtyStart Date End Date Unallocated, Meryls MD [facility]un [facility] [place] [address] [facility]05/08/24 Treasure England DO [address] [place] [address] Referring IekbpgiseYmkuzldki36/14/24 Goals (unrecognized section and content) Goals may [...] BE BASED ON THE PRIMARY CLINICAL RECORDS. [facility]. provides no warranty or guarantee of the accuracy or completeness of information in this document.
--- OUTSIDE RECORDS SUMMARY | 2025-05-22 11:00 | XMS_ITS | Clinical Summary ---
Author Organization [facility] Healthcare Address [address] [address] Care Team Providers Care Perfume Maker Name Role Phone Unallocated, [facility] Provider MD Primary Care Provi aristeo Treasure England DO Unavailable [phone] Allergies Active AllergyReactionsCriticalityNoted DateCommentsPollen Lpqookv1809/19/2023 Other Reaction(s): Unknown Reaction Medications MedicationSigDispense QuantityRefillsLast FilledStart DateEnd DateStatus magnesium 100 MG tablet 3Active Probiotic Product (PROBIOTIC ADVANCED PO) ProbioticActive pyridoxine (Vitamin B-6) 25 MG tablet Take 25 mg by mouth DailyActive Doxylamine Succinate, Sleep, (UNISOM PO) Take by mouthActive ondansetron (Zofran) 4 MG tablet Indications:Nausea and vomiting in ([facility])Take 1 tablet (4 mg) by mouth [...] 10 MG tablet Indications:Nausea and vomiting in ([facility])TAKE 1 TABLET BY MOUTH IN MORNING,AT [...] tablet Indications: related fatigue in second trimester ([facility]),Insomnia, unspecified typeTake 1 tablet (10 mg) by mouth as needed at bedtime for sleep for up to 5 days 5 tablet Discontinued promethazine (Phenergan) 12.5 MG tablet Indications:Nausea and vomiting in ([facility])Take 1 tablet (12.5 mg) by mouth every 8 (eight) hours if needed for nausea or vomiting for up to 30 doses Take 1 tablet by mouth every 6 hours as needed for nausea. 30 tablet Discontinued iron polysaccharides (ProFe) 391.3 (180 Fe) MG capsule Indications:Low ironTake 1 capsule (391.3 mg) by mouth Daily 30 capsule Expired Active Problems ProblemNoted DateDiagnosed DatePositive urine test ([facility])12/03/2024 Estimated Date of NhpqwuhrXygvzvoeOsg01/11/2026ased on last menstrual period of 09/28/2024 Encounters DateTypeDepartmentCare BaanXrmfuqsgxwv63/28/2025[place] [address] Lora Ortiz DO Nausea and vomiting in ([facility])05/15/2025linisync Result Encounter NOMS External Department Unsolicited Lora Ortiz DO 05/13/2025 1:20 [place] [address] Nicole Ghosh PA 32 weeks gestation of ([facility]); Third trimester ([facility]); Racing heart beat05/13/2025amboo flowsheet [facility] [address] Nicole Ghosh PA 04/29/2025 1:30 PM ESTRoutine [facility] [place] [facility] [address] [place] [address] Lora Ortiz, DO Third trimester ([facility]); 30 weeks gestation of ([facility])04/29/2025 1:00 PM ESTAncillary Procedure [facility] [place] [facility] [address] [place] [address] [place] [address] size inconsistent with dates ([facility])04/22/2025linisync Result Encounter NOMS External Department Unsolicited Lora Ortiz, DO 04/22/2025linisync Result Encounter NOMS External Department Unsolicited Lora Ortiz, DO 04/15/2025 1:00 PM EDTRoutine [facility] [place] [facility] [address] [place] [address] [place] [address] Lora Ortiz, Third trimester ([facility]); 28 weeks gestation of ([facility]); size inconsistent with dates ([facility]); Racing heart beat04/15/2025bstract [facility] [place] [facility] [address] [place] [address] Mable Dior MA 04/15/2025amboo flowsheet [facility] [place] [facility] [address] [place] [address] [place] [address] Lora Ortiz, DO 04/13/2025bstract [facility] [place] [facility] [address] [place] [address] [place] [address] Mable Dior MA 04/08/2025bstract [facility] [place] [facility] [address] [place] [address] [place] [address] Marge Kirkland, ZAC 04/01/2025Telephone [facility] [place] [facility] [address] [place] [address] Ariadna Bowden MA 04/01/2025linisync Result Encounter NOMS External Department Unsolicited Marge Kirkland NP 03/21/2025Refill [facility] [place] [facility] [address] [place] [address] Lora Ortiz DO Nausea and vomiting in ([facility])03/18/2025 2:20 PM EDTRoutine [facility] [place] [facility] [address] [place] [address] Lora Ortiz DO Second trimester ([facility]); 24 weeks gestation of ([facility]); Diabetes mellitus ayficmwsr22/24/2025 2:00 PM EDTAncillary Procedure [facility] [place] [facility] [address] [place] [address] Encounter for follow-up ultrasound of anatomy ([facility])03/05/2025bstract [facility] [place] [facility] [address] [place] [address] Marge Kirkland NP 02/27/2025Orders Only [facility] [place] [facility] [address] [place] [address] Marge Kirkland NP Pelvic pain in female; Pelvic pain affecting , antepartum ([facility])02/25/2025Telephone [facility] [place] [facility] [address] [place] [address] Mable Dior MA 02/20/2025bstract [facility] [place] [facility] [address] [place] [address] Lora Ortiz DO from Last 3 Months Family History Medical [...] ValueDate RecordedSex Assigned at BirthNot on fileLegal WxsLjqlie44/15/2023 8:11 PM EDTGender IdentityNot on fileSexual OrientationNot on file Last Filed Vital Signs Vital SignReadingTime TakenCommentsBlood Jdenhinw813/7605/13/2025 1:27 PM EST Pulse--Temperature--Respiratory Rate--Oxygen Saturation--Inhaled Oxygen Concentration--Lneoon360 kg (227 lb)05/13/2025 1:27 PM HIIJfiubz933.7 cm (5' 8 ) 01/23/2024 1:31 PM EDTBody Mass Index34.52001/23/2024 1:31 PM EDT Plan of Treatment DateTypeDepartmentCare Team (Latest Contact Info)Pxyatzafaqp53/03/2025 1:00 PM ESTRoutine [facility] [place] [facility] [address] [place] [address] Lora Ortiz DO [address] [place], [place] [id number] Health MaintenanceDue DateLast DoneCommentsCOVID-19 Vaccine ( season) 2025Influenza Vaccine (#1)2025Pneumococcal Vaccine: Pediatrics (0 to 5 Years) and At-Risk Patients (6 to 64 Years)Aged OutNo longer eligible based on patient's age to complete this topic Procedures Procedure NamePriorityDate/TimeAssociated DiagnosisCommentsUS OB BPP W NON-CBRNBM5305/15/2025 3:36 PM EST POCT URINALYSIS NWWSCZGIUirnsfj70/19/2025 1:32 PM EST 32 weeks gestation of ([facility]) Third trimester ([facility]) POCT URINALYSIS MDSJXQLJNvsgetk15/05/2025 1:42 PM EST 30 weeks gestation of ([facility]) US OB FOLLOW UP TRANSABDOMINAL BBCCHTZFEqaixlg53/05/2025 1:17 PM EST size inconsistent with dates ([facility]) CA ECHO DOPPLER WJPFKPBX36/29/2025 6:12 PM EDT ECG 12-LEAD04/22/2025 8:28 AM EDT POCT URINALYSIS YUVJQZALMnlvuef50/22/2025 1:16 PM EDT 28 weeks gestation of ([facility]) ALL CBC WITH AUTO LYKCNmcynlm21/08/2025 9:19 AM EDT GLUCOSE 1 YDSMOkaxlgu88/08/2025 9:19 AM EDT POCT URINALYSIS DZPVQYUMUgsbkiq81/24/2025 2:39 PM EDT Second trimester ([facility]) US OB LIMITED 1+ VXIJYZZDyifqyd66/24/2025 2:17 PM EDT Encounter for follow-up ultrasound of anatomy ([facility]) from Last 3 Months Results * US OB BPP W NON-STRESS (05/15/2025 3:36 PM EST)Anatomical Region LateralityModalityOtherSpecimen (Source)Anatomical Location / Laterality Collection Method / VolumeCollection TimeReceived Time05/15/2025 3:36 PM EST Narrative 05/15/2025 3:38 PM EST [facility] ?[address] ? [place] [address] ? Ultrasound Report ? Signed ? Patient: NATHANIEL TAYLOR A ?MR#: [id number] ?? : 1995 ?Acct:[id number] ?? Age/Sex: 29 / F ?ADM Date: 05/15/25 ?? Loc: FBC ??250-1 ? Attending Dr: Lora Ortiz D.O. ? Ordering Physician: Lora Ortiz D.O. ?? Date of Service: 05/15/25 ?? Procedure(s): US OB BPP w non-stress ?? Accession Number(s): [id number] ? cc: Kelly Mckenzie LABEL REMOVER; Lora Ortiz D.O. ? [facility] ? [address] ? [place] [address] ? Patient Name: ?? NATHANIEL TAYLOR ? MRN: [facility]:[id number] ? date: 1995 ?Sex: F ?? Assigned Patient Location: FBC ?? Current Patient Location: FB ?? Accession/Order Number: [id number] ?? Exam Date: 05/15/2025 ??14:56 ?Report Date: 05/15/2025 ??15:36 ? At the request of: ?? LORA ??ANGEL ??DO ? Procedure: ??US OB BPP w non-stress ? Biophysical profile. ? Reason for exam: Third trimester ? COMPARISON: None ? TECHNIQUE: Transabdominal imaging of the gravid uterus was obtained. ? FINDINGS: The traffic lieutenant reports a BPP of 8 out of 8. ??CLAUDE is normal at 12.3 ?? cm. ?? heart rate 153 bpm. ? US/US OB BPP w non-stress ?? IMPRESSION: BPP 8 out of 8. ? Impression dictated by: Himanshu Mckeon Jr., D.O. ??05/15/2025 3:36 PM ? Dictation Location: [facility]-- ? Electronically authenticated by: [id number] ??Y ?? Date: 05/15/2025 ??15:36 ? Dictated By: ?Himanshu Mcekon M.D. ? Signed By: ?05/15/25 1538 ? DD/ 1536 ? TD/TT: ? Assistant Inventory Manager: Procedure Note Radiology, Radiologist, - 05/15/2025 [place] [address] Ultrasound Report Signed Patient: NATHANIEL TAYLOR AMR#: [id number] : 1995Acct:[id number] Age/Sex: 29 / FADM Date: 05/15/25 Loc: [facility] 250-[address]: Lora Ortiz D.O. Ordering Physician: Lora Ortiz D.O. Date of Service: 05/15/25 Procedure(s): US OB BPP w non-stress Accession Number(s): [id number] cc: Kelly Mckenzie LABEL REMOVER; Lora Ortiz D.O. The [place] [address] Patient Name: NATHANIEL TAYLOR MRN: [id number] date: 1995 Sex: F Assigned Patient Location: [facility] Current Patient Location: [facility] Accession/Order Number: [id number] Exam Date: 05/15/2025 14:56 Report Date: 05/15/2025 15:36 At the request of: LORA ORTIZ DO Procedure: US OB BPP w non-stress Biophysical profile. Reason for exam: Third trimester COMPARISON: None TECHNIQUE: Transabdominal imaging of the gravid uterus was obtained. FINDINGS: The traffic lieutenant reports a BPP of 8 out of 8. CLAUDE is normal at12.3 cm. heart rate 153 bpm. US/US OB BPP w non-stress IMPRESSION: BPP 8 out of 8. Impression dictated by: Himanshu Mckeon Jr., D.O. 05/15/2025 3:36 PM Dictation Location: [place] [address] Electronically authenticated by: [id number] Y Date: 5:36 Dictated By: Himanshu Mckeon M.D. Signed By:05/15/25 1538 DD/ 1536 TD/TT: Assistant Inventory Manager: Authorizing ProviderResult TypeResult StatusLora BAUER IMAGINGFinal Result * (ABNORMAL) POCT urinalysis dipstick manually resulted (05/13/2025 1:32 PM EST) Only the most recent of4 resultswithin the time period is included. ComponentValueRef [...] Location / LateralityCollection Method / VolumeCollection TimeReceived LcviIdhpj39/19/2025 1:32 PM EST Narrative Authorizing ProviderResult TypeResult StatusNicole Ghosh [facility] OF CARE TEST ENTER/EDIT ORDERABLESFinal Result * [...] TypeResult StatusCorey Angel DOIMG OB US PROCEDURES Final Result * CA ECHO DOPPLER COMPLETE (04/22/2025 6:12 PM EDT)Anatomical RegionLaterality ModalityOtherSpecimen (Source)Anatomical Location / LateralityCollection Method / VolumeCollection TimeReceived Time04/22/2025 6:12 PM EDT Narrative 04/22/2025 6:13 PM EDT [facility] ?[address] ? [place] [address] ? Cardiology Report ? Signed ? Patient: NATHANIEL TAYLOR ?MR#: [id number] ?? : 1995 ?Acct:[id number] ?? Age/Sex: 29 / F ?ADM Date: 04/22/25 ?? Loc: CARD ? Attending Dr: Lora Ortiz D.O. ? Ordering Physician: Lora Ortiz D.O. ?? Date of Service: 04/22/25 ?? Procedure(s): CA echo doppler complete ?? Accession Number(s): [id number] ? cc: Kelly Mckenzie LABEL REMOVER; Lora Ortiz D.O. ? Patient Name: ? NATHANIEL TAYLOR ? MR#: [id number] ? : 1995 ? Exam Date: 04/22/2025 [...] ? 2.50 cm2, 2.50 cm2 ?? Deceleration [place]: ? Pressure Half-Time: ? Peak Velocity(Antegrade Flow): [...] By: ?Verónica Lopez M.D. ? Signed By: ?04/22/251812 ? DD/ 1812 ? TD/TT: ? Assistant Inventory Manager: Procedure Note Radiology, Radiologist, MD - 04/22/2025 [place] [address] Cardiology Report Signed Patient: NATHANIEL TAYLOR AMR#: [id number] : 1995Acct:[id number] Age/Sex: Date: 04/22/25 Loc: CARD Attending Dr: Lora Ortiz D.O. Ordering Physician: Lora Ortiz D.O. Date of Service: 04/22/25 Procedure(s): CA echo doppler complete Accession Number(s): [id number] cc: Kelly Mckenzie LABEL REMOVER; Lora Ortiz D.O. Patient Name: NATHANIEL TAYLOR MR#: [id number] : 1995 Exam Date: 04/22/2025 Ordering Doctor: [...] Area (VTI): 2.50 cm2, 2.50 cm2 Deceleration [place]: Pressure Half-Time: Peak Velocity(Antegrade Flow): 1.55 m/s [...] Lopez M.D. Signed By:04/22/251812 DD/ 11 TD/TT: Assistant Inventory Manager: Authorizing ProviderResult TypeResult StatusCorey Angel DOCLINISYNC IMAGINGFinal Result * ECG 12-LEAD (04/22/2025 8:28 AM EDT)Anatomical RegionLateralityModalityOther Specimen (Source)Anatomical Location / LateralityCollection Method / Volume Collection TimeReceived Time04/22/2025 8:28 AM EDT Narrative 04/22/2025 6:39 PM EDT [facility] ?[address] ? [place] [address] ? Electrocardiograph Report ? Signed ? Patient: NATHANIEL TAYLOR ?MR#: [id number] ?? : 1995 ?Acct:[id number] ?? Age/Sex: 29 / F ?ADM Date: 04/22/25 ?? Loc: CARD ? Attending Dr: Lora Ortiz D.O. ? Ordering Physician: Lora Ortiz D.O. ?? Date of Service: 04/22/25 ?? Procedure(s): ECG 12 lead ?? Accession Number(s): [id number] ? cc: ?[facility] ? Test Date: ?2025-04-22 ?? Pat Name: ? NATHANIEL TAYLOR ?Department: ? Room: ? - ?? Gender: ? Female ? Message Broker Developer: ? : ?1995 ? Requested By: LORA ANGEL ?? Order Number: [id number] ?Reading MD: ?? SLY KAISER ? Measurements ?? Intervals ?[place] ? Rate: ? 84 ? P: ?22 ?? [place]: ? 139 ?QRS: ?88 ?? QRSD: ? 94 ? T: ?54 ?? QT: ? 361 ? QTc: ?429 ? Interpretive Statements ?? SINUS RHYTHM ?? No previous ECG available for comparison ?? Electronically Signed On 04-22-2025 18:39:57 EDT by SLY HERRERA ? Dictated By: ?Sly Herrera M.D. ? Signed By: ?10/29/25 1839 ?04/22/251838 ? DD/ 7 ? TD/TT: ? Assistant Inventory Manager: Procedure Note Radiology, Radiologist, MD - 04/22/2025 [place] [address] Electrocardiograph Report Signed Patient: NATHANIEL TAYLOR AMR#: [id number] : 1995Acct:[id number] Age/Sex: Date: 04/22/25 Loc: CARD Attending Dr: Lora Ortiz D.O. Ordering Physician: Lora Ortiz D.O. Date of Service: 04/22/25 Procedure(s): ECG 12 lead Accession Number(s): [id number] cc: [facility] Test Date: 2025-04-22 Pat Name: NATHANIEL TAYLOR Department: Room: - Gender: Female Message Broker Developer: : 1995 Requested By: LORA ORTIZ Order Number: [id number] Reading MD: SLY HERRERA Measurements Intervals [place] Rate: 84 P: 22 [place]: 139 QRS: 88 QRSD: 94 T: 54 QT: 361 QTc: 429 Interpretive Statements SINUS RHYTHM No previous ECG available for comparison Electronically Signed On 04-22-2025 18:39:57 EDT by SLY HERRERA Dictated By: Sly Herrera M.D. Signed By:04/22/25183804/22/251838 DD/ 7 TD/TT: Assistant Inventory Manager: Authorizing ProviderResult TypeResult StatusCorey Angel DOCLINISYNC IMAGINGFinal Result * GLUCOSE 1 HOUR (04/01/2025 9:19 AM EDT)ComponentValueRef RangeTest Method Analysis TimePerformed AtPathologist SignatureGLUCOSE 1 JMOD822<130 mg/dLTBH Specimen (Source)Anatomical Location / LateralityCollection Method / Volume Collection TimeReceived Time04/01/2025 9:19 AM EDT1 9:27 AM EDT Narrative CLINISYNC - 04/01/2025 10:15 AM EDT Authorizing ProviderResult TypeResult StatusMarge Kirkland [facility] [email or web address]] BLOOD ORDERABLESFinal ResultPerforming OrganizationAddressCity/State/ZIP CodePhone Number [facility] * (ABNORMAL) ALL CBC WITH AUTO DIFF (04/01/2025 9:19 AM EDT)ComponentValueRef RangeTest MethodAnalysis TimePerformed AtPathologist SignatureTBH WBC11.8(H) 4.0 - 11.0 10 3/uLTBHTBH RBC3.81(L)4.20 - 5.40 10 6/uLTBHTBH HGB10.9(L)12.0 - 16.0 g/dLTBHTBH HCT33.8(L)36.0 - 48.0 %TBHTBH MCV88.781.0 - 99.0 fLTBHTBH MCH 28.626.7 - 34.0 pgTBHTBH MCHC32.229.9 - 35.2 g/dLTBHTBH RDW12.611.0 - 15.0 % TBHTBH UPF793979 - 450 10 3/uLTBHTBH MPV11.09.5 - 13.5 [...] StatusMarge Kirkland NPCLINISYNCFinal ResultPerforming OrganizationAddressCity/State/ZIP CodePhone Number [facility] [...] TypeResult StatusCorey Angel DOIMG OB US PROCEDURES Final Result from Last 3 Months Insurance Care Teams Team MemberRelationshipSpecialtyStart DateEnd Date Unallocated, Noms Provider, [address] [place] [address] PCP - GeneralFamily Lkpgdywb60/14/24 Treasure England DO [address] [place] [address] Referring AlydfvpihFcsnzttrq46/14/24
--- OUTSIDE RECORDS SUMMARY | 2025-05-22 11:00 | XMS_ITS | Encounter Summary ---
Author Organization [facility] Address [address] [place] [address] Care Team Providers Care Stay Cutter Name Role Phone Unallocated, Noms Provider MD Primary Care Provi aristeo Treasure England DO Unavailable [phone] Reason for Visit * ReasonCommentsMed Refill Encounter Details DateTypeDepartmentCare Team (Latest Contact Info)Zaoaeypaesf44/28/2025Refill NATALIE KEARNS [address] [place] [address] Junito Ortiz DO [address] [place], [facility]11 Nausea and vomiting in ([facility] Social History Tobacco UseTypesPacks/DayYears UsedDateSmoking Tobacco: NeverSmokeless Tobacco: NeverAlcohol UseStandard Drinks/WeekCommentsYes0 (1 standard drink = 0.6 oz pure alcohol)One drink per monthEstimated Date of DeliveryCommentsYes 6Based on last menstrual period of 09/28/2024Sex and Gender Information ValueDate RecordedSex Assigned at BirthNot on fileLegal SfnHncklb53/15/2023 8:11 PM EDTGender IdentityNot on fileSexual OrientationNot on filedocumented as of this encounter Plan of Treatment DateTypeDepartmentCare Team (Latest Contact Info)Fpqroluhant47/03/2025 1:00 PM ESTRoutine [facility] [place] [facility] [address] [place] [address] Junito Ortiz DO [address] [place] [address] documented as of this encounter Visit Diagnoses Diagnosis Nausea and vomiting in ([facility]) Unspecified vomiting of , unspecified as to episode of care documented in this encounter Care Teams Team MemberRelationshipSpecialtyStart DateEnd Date Unallocated, Noms MD [address] [address] PCP - GeneralFamily Vfxclxkz31/14/24 Treasure [place] DO [address] [place] [address] Referring LyyjcqggiYeufdlxoj14/14/24documented as of this encounter
[2025-05-22 11:21] VITALS: BP 133/68; PULSE 86; TEMP 36.1
== END 2025-05-22 11:50 | disposition home or self-care (01) ==
LOC: FBCO 10:57 → FBC 11:01
PROVIDERS: PCP Nurse Practitioner Family; Visit Provider Obstetrics & Gynecology
DX: O26.893 Other specified pregnancy related conditions, third trimester (principal); Z3A.33 33 weeks gestation of pregnancy
CPT/HCPCS: 76818

== ENCOUNTER 2025-05-27 08:57 | Outpatient (OUT) | payer OTHER, SELFPAY ==
--- OUTSIDE RECORDS SUMMARY | 2025-05-13 13:20 | XMS_ITS | Encounter Summary ---
Author Organization [facility] Address [address] [facility] [place] [address] Care Team Providers Care Conference Coordinator Name Role Phone Unallocated, Noms Provider MD Primary Care Provi aristeo Treasure England DO Unavailable [phone] Reason for Visit * ReasonCommentsRoutine Visit Encounter Details DateTypeDepartmentCare Team (Latest Contact Info)Qkbuuetzyvf70/19/2025 1:20 PM ESTRoutine NATALIE [place] O[facility] [address] [address] Nicole Ghosh PA [address] [place], [facility] 32 weeks gestation of ([facility]); Third trimester ([facility]); Racing heart beat Social History Tobacco UseTypesPacks/DayYears UsedDateSmoking Tobacco: NeverSmokeless Tobacco: NeverAlcohol UseStandard Drinks/WeekCommentsYes0 (1 standard drink = 0.6 oz pure alcohol)One drink per monthEstimated Date of DeliveryCommentsYes 6Based on last menstrual period of 09/28/2024Sex and Gender Information ValueDate RecordedSex Assigned at BirthNot on fileLegal QtvYyydpv79/15/2023 8:11 PM EDTGender IdentityNot on fileSexual OrientationNot on filedocumented as of this encounter Last Filed Vital Signs Vital SignReadingTime TakenCommentsBlood Ldhstmxr351/7611 1:27 PM EST Pulse--Temperature--Respiratory Rate--Oxygen Saturation--Inhaled Oxygen Concentration--Frlhyd356 kg (227 lb)05/13/2025 1:27 PM ESTHeight--Body Mass [...] Problems Diagnosis Date Noted Positive urine test ([facility]) 12/03/2024 Resolved Ambulatory Problems Diagnosis Date Noted [...] nursing note reviewed. Exam conducted with a tennis desk team member present. Vitals: Estimated body mass index is 34.52 kg/m?? as calculated from the following: Height as of 01/23/24: 5' 8 . Weight as of this encounter: 227 lb. BP: 118/76 Patient's last menstrual period was 09/28/2024. Assessment/Plan ICD-10-CM 1. 32 weeks gestation of ([facility]) Z3A.32 POCT urinalysis dipstick manually resulted US biophysical profile w non stress test 2. Third trimester ([facility]) Z34.93 POCT urinalysis dipstick manually resulted US [...] Plan of Treatment DateTypeDepartmentCare Team (Latest Contact Info)Seoxqbtkxmf84/03/2025 1:00 PM ESTRoutine [facility] [address] [place] [address] AngelJunito denis DO [address] [place] [address] NameTypePriorityAssociated DiagnosesOrder ScheduleUS biophysical profile w non stress testImagingRoutine 32 weeks gestation of ([facility]) Third trimester ([facility]) Racing heart beat Expected: 05/13/2025 (Approximate), Expires: 11/10/2025documented as of this encounter Procedures Procedure NamePriorityDate/TimeAssociated DiagnosisCommentsPOCT URINALYSIS CMUBRNVMOxyxrrp37/19/2025 1:32 PM EST 32 weeks gestation of ([facility]) Third trimester ([facility]) documented in this encounter Results * (ABNORMAL) [...] Location / LateralityCollection Method / VolumeCollection TimeReceived PrioOxmtj06/19/2025 1:32 PM EST Narrative Authorizing ProviderResult TypeResult StatusSentara [facility] TEST ENTER/EDIT ORDERABLESFinal Result documented in this encounter Visit Diagnoses Diagnosis 32 weeks gestation of ([facility]) Third trimester ([facility]) state, incidental Racing heart beat Unspecified tachycardia documented in this encounter Care Teams Team MemberRelationshipSpecialtyStart DateEnd Date Unallocated, Noms Provider, [address] [place], [place] [id number] PCP - GeneralFamily Rvmhmvcy97/14/24 Treasure England DO [address] [place] [address] Referring TsddmjhboLfdviatrs58/14/24documented as of this encounter
--- NOTE | 2025-05-27 | US_ITS ---
The [place] [id number] Patient Name: NATHANIEL TAYLOR MRN: [id number] date: 1995 Sex: F Assigned Patient Location: [facility] Current Patient Location: [facility] Accession/Order Number: [id number] Exam Date: 05/27/2025 09:01 Report Date: 05/27/2025 10:21 At the request of: LORA TUBBS DO Procedure: US OB BPP w non-stress BIOPHYSICAL PROFILE: CLINICAL INFORMATION: RACING HEART BEAT COMPARISON: 05/22/2025 There is a single live intrauterine gestation in cephalic presentation. The reported gestational age is 34 weeks 3 days. The heart rate measures 159 beats per minute. FINDINGS: TONE: 1 or more episodes of activity extension and flexion of extremity or opening and closing of the hand [Y] 2/2 GROSS BODY MOVEMENTS: 3 or more discrete body or limb movements [Y] 2/2 BREATHING MOVEMENTS: 1 or more episodes of breathing lasting at least 30 seconds [Y] 2/2 CLAUDE: A single deepest vertical pocket of amniotic fluid greater than 2 cm [Y] 2/2 CLAUDE: 13.3 cm Total score: 8/8 US/US OB BPP w non-stress IMPRESSION: NORMAL BIOPHYSICAL PROFILE. Impression dictated by: Saumya Prajapati M.D. 05/27/2025 10:21 AM Dictation Location: [place] [address] Electronically authenticated by: [id number] Y Date: 05/27/2025 10:21
--- OUTSIDE RECORDS SUMMARY | 2025-05-27 09:01 | XMS_ITS | Encounter Summary ---
Author Organization [facility] Address [address] [facility] [place] [address] Care Team Providers Care Welder Fitter Name Role Phone Unallocated, Noms Provider MD Primary Care Provi aristeo Treasure [place] DO Unavailable [phone] Reason for Visit * ReasonCommentsMed Refill Encounter Details DateTypeDepartmentCare Team (Latest Contact Info)Iskwtuofkah26/28/2025Refill NATALIE KEARNS [address] [place] [address] Junito Ortiz DO [address] [place], [facility]11 Nausea and vomiting in ([facility]) Social History Tobacco UseTypesPacks/DayYears UsedDateSmoking Tobacco: NeverSmokeless Tobacco: NeverAlcohol UseStandard Drinks/WeekCommentsYes0 (1 standard drink = 0.6 oz pure alcohol)One drink per monthEstimated Date of DeliveryCommentsYes 6Based on last menstrual period of 09/28/2024Sex and Gender Information ValueDate RecordedSex Assigned at BirthNot on fileLegal GhyLzslqi67/15/2023 8:11 PM EDTGender IdentityNot on fileSexual OrientationNot on filedocumented as of this encounter Plan of Treatment DateTypeDepartmentCare Team (Latest Contact Info)Enlexwntysr76/03/2025 1:00 PM ESTRoutine [facility] [place] [facility] [address] [place] [address] Junito Ortiz DO [address] [place] [address] documented as of this encounter Visit Diagnoses Diagnosis Nausea and vomiting in ([facility]) Unspecified vomiting of , unspecified as to episode of care documented in this encounter Care Teams Team MemberRelationshipSpecialtyStart DateEnd Date Unallocated, Noms MD [address] [address] PCP - GeneralFamily Kxfpsbwl68/14/24 Treasure [place] DO [address] [place] [address] Referring SyfcxnwldJetsmofbk01/14/24documented as of this encounter
--- OUTSIDE RECORDS SUMMARY | 2025-05-27 09:01 | XMS_ITS | Clinical Summary ---
Author Organization [employer] s [employer] Address [id number] [address] [place] [address] Care Team Providers Care Pattern Room Attendant Name Role Phone Kelly Mckenzie YANELI-CRITICAL CARE UNIT NURSE Primary Care Provider Allergies No known active [...] without aura and without status migrainosus, not iyguqzgtxmd47/29/2023Pineal gland cyst05/23/2023Hx of ifqazvuuor05/29/2023Vestibular xtiuuifl12/27/2023Choroid plexus cyst of fetus affecting care of mother, sdohhzgipv36/10/2021 Family History Medical HistoryRelationNameCommentsBreast cancerMaternal GrandmotherDiabetes Maternal [...] Frequency of Binge DrinkingNot on file12/19/2019PHQ-2AnswerDate RecordedTotal Usxix461/29/2023ChildcareAnswerDate NlxpipifUjczjlzitPfkszqv14/24/2020Employment AnswerDate JqduhepoRrxwtexhibVlgiytm73/24/2020Hunger ScreeningAnswerDate RecordedWithin the past 12 months we worried whether our food would run out before we got money to buy more.Never True09/05/2023Within the past 12 months the food we bought just didn't last and we didn't have money to get more.Never True4Purpose - LifeAnswerDate RecordedPurpose and direction in life Nofqhcb31/11/2021CommentsNoSex and Gender InformationValueDate Recorded Sex Assigned at BirthNot on fileLegal NlxZfubap17/24/2020 11:48 AM EDTGender IdentityNot on fileSexual OrientationNot on file Last Filed Vital Signs Vital SignReadingTime TakenCommentsBlood Khdzxvup739/7703 9:42 AM EDT Ovswj334109/05/2023 9:42 AM EDTTemperature--Respiratory Rate--Oxygen Saturation-- Inhaled Oxygen Concentration--Vmbejl04.9 kg (202 lb 8 oz)09/05/2023 9:42 AM EDT Afpytq909.7 cm (5' 8 )09/05/2023 9:42 AM EDTBody Mass Index30.7909/05/2023 9:42 AM EDT Plan of Treatment Health MaintenanceDue DateLast DoneCommentsDTaP,Tdap and Td Vaccines (1 - Tdap) 12/19/2014Pap Smear12/19/2016Depression Hxnyhqjae99dult BMI Vplrschwl30Tobacco Yelvudcfn13Influenza Cgeseii2702/23/2025 Medical Devices Not on file Insurance Care Teams Team MemberRelationshipSpecialtyStart DateEnd Date Kelly Mckenzie APRN-CRITICAL CARE UNIT NURSE [address], [facility] [address] [place] [address] PCP - GeneralFamily Nmzvdcls36/13/23
--- OUTSIDE RECORDS SUMMARY | 2025-05-27 09:01 | XMS_ITS | Encounter Summary ---
Author Organization [facility] Address [address] [facility] [address] Care Team Providers Care Development Editor Name Role Phone Unallocated, Noms Provider Primary Care Provi aristeo Treasure England DO Unavailable [phone] Encounter Details DateTypeDepartmentCare Team (Latest Contact Info)Zpligavildz61/19/2025Bamboo flowsheet NATALIE KEARNS [address] [place] [address] Nicole Ghosh PA [address] [place], [place] [address] Social History Tobacco UseTypesPacks/DayYears UsedDateSmoking Tobacco: NeverSmokeless Tobacco: NeverAlcohol UseStandard Drinks/WeekCommentsYes0 (1 standard drink = 0.6 oz pure alcohol)One drink per monthEstimated Date of DeliveryCommentsYes 6Based on last menstrual period of 09/28/2024Sex and Gender Information ValueDate RecordedSex Assigned at BirthNot on fileLegal RdwJiewhb71/15/2023 8:11 PM EDTGender IdentityNot on fileSexual OrientationNot on filedocumented as of this encounter Plan of Treatment DateTypeDepartmentCare Team (Latest Contact Info)Uggneczsvio73/03/2025 1:00 PM ESTRoutine NATALIE KEARNS [address] [place] [address] Junito Ortiz DO [address] [place], [place] [id number] documented as of this encounter Visit Diagnoses Not on filedocumented in this encounter Care Teams Team MemberRelationshipSpecialtyStart DateEnd Date Unallocated, Noms Provider, [place] [address] PCP - GeneralFamily Ipqgptnq09/14/24 Treasure England DO [address] [place] [address] Referring BfbqjjddlZtnydpmjv49/14/24documented as of this encounter
--- OUTSIDE RECORDS SUMMARY | 2025-05-27 09:01 | XMS_ITS | Encounter Summary ---
Author Organization [facility] Address [address] [place] [facility] [place] [address] Care Team Providers Care County Commissioner Name Role Phone Unallocated, Noms Provider MD Primary Care Provi aristeo TomásTreasure DO Unavailable [phone] Encounter Details DateTypeDepartmentCare Team (Latest Contact Info)Mdvibgidoxw65/28/2025linisync Result Encounter [facility] External Department Unsolicited Lora Ortiz DO [address] [place], [place] [address] Social History Tobacco UseTypesPacks/DayYears UsedDateSmoking Tobacco: NeverSmokeless Tobacco: NeverAlcohol UseStandard Drinks/WeekCommentsYes0 (1 standard drink = 0.6 oz pure alcohol)One drink per monthEstimated Date of DeliveryCommentsYes 6Based on last menstrual period of 09/28/2024Sex and Gender Information ValueDate RecordedSex Assigned at BirthNot on fileLegal RtqLfcsjv58/15/2023 8:11 PM EDTGender IdentityNot on fileSexual OrientationNot on filedocumented as of this encounter Plan of Treatment DateTypeDepartmentCare Team (Latest Contact Info)Omlhpijzwwm61/03/2025 1:00 PM ESTRoutine [facility] [address] [place] [address] Lora Ortiz DO [address] [place] [address] documented as of this encounter Procedures Procedure NamePriorityDate/TimeAssociated DiagnosisCommentsUS OB BPP W NON-QJUARN9205/22/2025 12:44 PM EST documented in this encounter Results * US OB BPP W NON-STRESS (05/22/2025 12:44 PM EST)Anatomical Region LateralityModalityOtherSpecimen (Source)Anatomical Location / Laterality Collection Method / VolumeCollection TimeReceived Time05/22/2025 12:44 PM EST Narrative 05/22/2025 12:46 PM EST [facility] ?[address] ? [place] [address] ? Ultrasound Report ? Signed ? Patient: NATHANIEL TAYLOR ?MR#: [id number] ?? : 1995 ?Acct:[id number] ?? Age/Sex: 29 / F ?ADM Date: 05/22/25 ?? Loc: [facility] ? Attending Dr: Lora Ortiz D.O. ? Ordering Physician: Lora Ortiz D.O. ?? Date of Service: 05/22/25 ?? Procedure(s): US OB BPP w non-stress ?? Accession Number(s): [id number] ? cc: Kelly Mckenzie LPN INSTRUCTOR; Lora Ortiz D.O. ? [facility] ? [address] ? [place] [address] ? Patient Name: ?? NATHANIEL TAYLOR ? MRN: [facility]:[id number] ? date: 1995 ?Sex: F ?? Assigned Patient Location: [facility] ?? Current Patient Location: ? Accession/Order Number: [id number] ?? Exam Date: 05/22/2025 ??11:02 ?Report Date: 05/22/2025 ??12:44 ? At the request of: ?? LORA ??ANGEL ??DO ? Procedure: ??US OB BPP w non-stress ? Biophysical profile. ? Reason for exam: Racing heart beat ? COMPARISON: 05/15/2025 ? TECHNIQUE: Transabdominal imaging of the gravid uterus was obtained. ? FINDINGS: The windsmith reports a BPP of 8 out of 8. ??CLAUDE is normal at 14.6 ?? cm. ?? heart rate 129 bpm. ? US/ OB BPP w non-stress ?? IMPRESSION: BPP 8 out of 8. ? Impression dictated by: Himanshu Mckeon Jr., D.O. ??05/22/2025 12:44 PM ? Dictation Location: [facility]-- ? Electronically authenticated by: [id number] ??Y ?? Date: 05/22/2025 ??12:44 ? Dictated By: ?Himanshu Mckeon M.D. ? Signed By: ?05/22/25 1246 ? DD/ 1244 ? TD/TT: ? Space Control Supervisor: Procedure Note Radiology, Radiologist, MD - 05/22/2025 [place] [address] Ultrasound Report Signed Patient: NATHANIEL TAYLOR AMR#: [id number] : 1995Acct:[id number] Age/Sex: 29 / FADM Date: 05/22/25 Loc: [facility] Attending Dr: Lora Ortiz D.O. Ordering Physician: Lora Ortiz D.O. Date of Service: 05/22/25 Procedure(s): US OB BPP w non-stress Accession Number(s): [id number] cc: Kelly Mckenzie LPN INSTRUCTOR; Lora Ortiz D.O. The [place] [id number] Patient Name: NATHANIEL TAYLOR MRN: [id number]:[id number] date: 1995 Sex: F Assigned Patient Location: [facility] Current Patient Location: Accession/Order Number: [id number] Exam Date: 05/22/2025 11:02 Report Date: 05/22/2025 12:44 At the request of: LORA ORTIZ DO Procedure: US OB BPP w non-stress Biophysical profile. Reason for exam: Racing heart beat COMPARISON: 05/15/2025 TECHNIQUE: Transabdominal imaging of the gravid uterus was obtained. FINDINGS: The windsmith reports a BPP of 8 out of 8. CLAUDE is normal at14.6 cm. heart rate 129 bpm. US/US OB BPP w non-stress IMPRESSION: BPP 8 out of 8. Impression dictated by: Himanshu Mckeon Jr., D.O. 05/22/2025 12:44 PM Dictation Location: [place] [address] Electronically authenticated by: [id number] Y Date: 2:44 Dictated By: Himanshu Mckeon M.D. Signed By:05/22/25 1246 DD/ 1244 TD/TT: Space Control Supervisor: Authorizing ProviderResult TypeResult StatusCorey Angel DOCLINISYNC IMAGINGFinal Result documented in this encounter Visit Diagnoses Not on filedocumented in this encounter Care Teams Team MemberRelationshipSpecialtyStart DateEnd Date Unallocated, Noms Provider, [address] [place] [address] PCP - GeneralFamily Qorzyhns66/14/24 Treasure England DO [address] [place] [address] Referring BzwykzgwkNzeggnafm36/14/24documented as of this encounter
--- OUTSIDE RECORDS SUMMARY | 2025-05-27 09:01 | XMS_ITS | Encounter Summary ---
Author Organization [facility] Address [address] [facility] [place] [address] Care Team Providers Care Offset Lithographic Press Setter Name Role Phone Unallocated, Noms Provider MD Primary Care Provi aristeo TomásTreasure DO Unavailable [phone] Encounter Details DateTypeDepartmentCare Team (Latest Contact Info)Sjccwdmmzqr15/21/2025linisync Result Encounter [facility] External Department Unsolicited Lora Ortiz DO [address] [place], [place] [address] Social History Tobacco UseTypesPacks/DayYears UsedDateSmoking Tobacco: NeverSmokeless Tobacco: NeverAlcohol UseStandard Drinks/WeekCommentsYes0 (1 standard drink = 0.6 oz pure alcohol)One drink per monthEstimated Date of DeliveryCommentsYes 6Based on last menstrual period of 09/28/2024Sex and Gender Information ValueDate RecordedSex Assigned at BirthNot on fileLegal TnaVbelss04/15/2023 8:11 PM EDTGender IdentityNot on fileSexual OrientationNot on filedocumented as of this encounter Plan of Treatment DateTypeDepartmentCare Team (Latest Contact Info)Lbpcrzittal77/03/2025 1:00 PM ESTRoutine [facility] [address] [place] [address] Lora Ortiz DO [address] [place] [address] documented as of this encounter Procedures Procedure NamePriorityDate/TimeAssociated DiagnosisCommentsUS OB BPP W NON-YRKTDI4905/15/2025 3:36 PM EST documented in this encounter Results * US OB BPP W NON-STRESS (05/15/2025 3:36 PM EST)Anatomical Region LateralityModalityOtherSpecimen (Source)Anatomical Location / Laterality Collection Method / VolumeCollection TimeReceived Time05/15/2025 3:36 PM EST Narrative 05/15/2025 3:38 PM EST [facility] ?[address] ? [place] [address] ? Ultrasound Report ? Signed ? Patient: NATHANIEL TAYLOR ?MR#: [id number] ?? : 1995 ?Acct:[id number] ?? Age/Sex: 29 / F ?ADM Date: 05/15/25 ?? Loc: [facility] ??250-1 ? Attending Dr: Lora Ortiz D.O. ? Ordering Physician: Lora Ortiz D.O. ?? Date of Service: 05/15/25 ?? Procedure(s): US OB BPP w non-stress ?? Accession Number(s): [id number] ? cc: Kelly Mckenzie BUYER TOBACCO HEAD; Lora Ortiz D.O. ? [facility] ? [address] [facility] ? [place] [address] ? Patient Name: ?? NATHANIEL TAYLOR ? MRN: [facility]:[id number] ? date: 1995 ?Sex: F ?? Assigned Patient Location: [facility] ?? Current Patient Location: [facility] ?? Accession/Order Number: [id number] ?? Exam Date: 05/15/2025 ??14:56 ?Report Date: 05/15/2025 ??15:36 ? At the request of: ?? LORA ??ANGEL ??DO ? Procedure: ??US OB BPP w non-stress ? Biophysical profile. ? Reason for exam: Third trimester ? COMPARISON: None ? TECHNIQUE: Transabdominal imaging of the gravid uterus was obtained. ? FINDINGS: The waste picker reports a BPP of 8 out of 8. ??CLAUDE is normal at 12.3 ?? cm. ?? heart rate 153 bpm. ? US/US OB BPP w non-stress ?? IMPRESSION: BPP 8 out of 8. ? Impression dictated by: Himanshu Mckeon Jr., D.O. ??05/15/2025 3:36 PM ? Dictation Location: [facility] ? Electronically authenticated by: [id number] ??Y ?? Date: 05/15/2025 ??15:36 ? Dictated By: ?Himanshu Mckeon M.D. ? Signed By: ?05/15/25 1538 ? DD/ 1536 ? TD/TT: ? Mail Examiner: Procedure Note Radiology, Radiologist, MD - 05/15/2025 [place] [address] Ultrasound Report Signed Patient: NATHANIEL TAYLOR AMR#: [id number] : 1995Acct:[id number] Age/Sex: 29 / FADM Date: 05/15/25 Loc: [facility] 250-[address]: Lora Ortiz D.O. Ordering Physician: Lora Ortiz D.O. Date of Service: 05/15/25 Procedure(s): US OB BPP w non-stress Accession Number(s): [id number] cc: Kelly Mckenzie BUYER TOBACCO HEAD; Lora Ortiz D.O. The [place] [id number] Patient Name: NATHANIEL TAYLOR MRN: [facility]:[id number] date: 1995 Sex: F Assigned Patient Location: [facility] Current Patient Location: [facility] Accession/Order Number: [id number] Exam Date: 05/15/2025 14:56 Report Date: 05/15/2025 15:36 At the request of: LORA ORTIZ DO Procedure: US OB BPP w non-stress Biophysical profile. Reason for exam: Third trimester COMPARISON: None TECHNIQUE: Transabdominal imaging of the gravid uterus was obtained. FINDINGS: The waste picker reports a BPP of 8 out of 8. CLAUDE is normal at12.3 cm. heart rate 153 bpm. US/US OB BPP w non-stress IMPRESSION: BPP 8 out of 8. Impression dictated by: Himanshu Mckeon Jr., D.O. 05/15/2025 3:36 PM Dictation Location: [place] [address] Electronically authenticated by: [id number] Y Date: 5:36 Dictated By: Himanshu Mckeon M.D. Signed By:05/15/25 1538 DD/ 1536 TD/TT: Mail Examiner: Authorizing ProviderResult TypeResult StatusCorey Angel DOCLINISYNC IMAGINGFinal Result documented in this encounter Visit Diagnoses Not on filedocumented in this encounter Care Teams Team MemberRelationshipSpecialtyStart DateEnd Date Unallocated, Noms Provider, [address] [place] [address] PCP - GeneralFamily Zkmlwqie59/14/24 Treasure England DO [address] [place] [address] Referring ElkxklnceFjcvbtitq37/14/24documented as of this encounter
--- OUTSIDE RECORDS SUMMARY | 2025-05-27 09:01 | XMS_ITS | Clinical Summary ---
Author Organization [facility] Healthcare Address [address] [place] [address] Care Team Providers Care Academic Affairs Dean Name Role Phone Unallocated, [facility] Provider MD Primary Care Provi aristeo Treasure England DO Unavailable [phone] Allergies Active AllergyReactionsCriticalityNoted DateCommentsPollen Texbwdh4409/19/2023 Other Reaction(s): Unknown Reaction Medications MedicationSigDispense QuantityRefillsLast FilledStart DateEnd DateStatus magnesium 100 MG tablet 3Active Probiotic Product (PROBIOTIC ADVANCED PO) ProbioticActive pyridoxine (Vitamin B-6) 25 MG tablet Take 25 mg by mouth DailyActive Doxylamine Succinate, Sleep, (UNISOM PO) Take by mouthActive ondansetron (Zofran) 4 MG tablet Indications:Nausea and vomiting in ([facility])Take 1 tablet (4 mg) by mouth every [...] 10 MG tablet Indications:Nausea and vomiting in ([facility])TAKE 1 TABLET BY MOUTH IN MORNING,AT NOON,IN [...] tablet Indications: related fatigue in second trimester ([facility]),Insomnia, unspecified typeTake 1 tablet (10 mg) by mouth as needed at bedtime for sleep for up to 5 days 5 tablet Discontinued promethazine (Phenergan) 12.5 MG tablet Indications:Nausea and vomiting in ([facility])Take 1 tablet (12.5 mg) by mouth [...] Active Problems ProblemNoted DateDiagnosed DatePositive urine test ([facility])12/03/2024 Estimated Date of XdhzyjzsOgzhdixvVdi44/11/2026ased on last menstrual period of 09/28/2024 Encounters DateTypeDepartmentCare DdodHiyghafumer41/28/2025linisync Result Encounter NOMS External Department Unsolicited Lora Ortiz DO 05/22/2025Refill [facility] [place] [phone] Lora Ortiz DO Nausea and vomiting in ([facility])05/15/2025linisync Result Encounter NOMS External Department Unsolicited Lora Ortiz DO 05/13/2025 1:20 PM ESTRoutine [facility] [place] [facility] [address] [place] [phone] Nicole Ghosh PA 32 weeks gestation of ([facility]); Third trimester ([facility]); Racing heart beat05/13/2025amboo flowsheet [facility] [place] [facility] [address] [address] Nicole Ghosh PA 04/29/2025 1:30 PM ESTRoutine [facility] [place] [facility] [address] [place] [address] Lora Ortiz, Third trimester ([facility]); 30 weeks gestation of ([facility])04/29/2025 1:00 PM ESTAncillary Procedure [facility] [place] [facility] [address] [address] size inconsistent with dates ([facility])04/22/2025linisync Result Encounter NOMS External Department Unsolicited Lora Ortiz, 04/22/2025linisync Result Encounter NOMS External Department Unsolicited Lora Ortiz, DO 04/15/2025 1:00 PM EDTRoutine NOM[facility] [place] [facility] [address] [address] Lora Ortiz, Third trimester ([facility]); 28 weeks gestation of ([facility]); size inconsistent with dates ([facility]); Racing heart beat04/15/2025bstract [facility] [place] [facility] [address] [address] Mable Dior AL 04/15/2025amboo flowsheet [facility] [place] [facility] [address] [place] [address] Lora Ortiz, 04/13/2025bstract [facility] [place] [facility] [address] [place] [address] Mable Dior MA 04/08/2025bstract [facility] [place] [facility] [address] [place] [phone] Marge Kirkland NP 04/01/2025Telephone [facility] [place] [facility] [address] [place] [address] Ariadna Bowden MA 04/01/2025linisync Result Encounter NOMS External Department Unsolicited Marge Kirkland NP 03/21/2025Refill [facility] [place] [facility] [address] [place] [phone] Lora Ortiz DO Nausea and vomiting in ([facility])03/18/2025 2:20 PM EDTRoutine NOMS [place] [facility] [address] [place] [address] Lora Ortiz DO Second trimester ([facility]); 24 weeks gestation of ([facility]); Diabetes mellitus njmysjcmf05/24/2025 2:00 PM EDTAncillary Procedure [facility] [place] [facility] [address] [place] [address] Encounter for follow-up ultrasound of anatomy ([facility])03/05/2025bstract [facility] [place] [facility] [address] [place] [address] Marge Kirkland NP 02/27/2025Orders Only [facility] [place] [facility] [address] [place] [address] Marge Kirkland NP Pelvic pain in female; Pelvic pain affecting , antepartum ([facility])02/25/2025Telephone [facility] [place] [facility] [address] [place] [place] [address] Mable Dior MA from [...] ValueDate RecordedSex Assigned at BirthNot on fileLegal WnnMswpru20/15/2023 8:11 PM EDTGender IdentityNot on fileSexual OrientationNot on file Last Filed Vital Signs Vital SignReadingTime TakenCommentsBlood Yyuoesmu876/7605/13/2025 1:27 PM EST Pulse--Temperature--Respiratory Rate--Oxygen Saturation--Inhaled Oxygen Concentration--Kmxgzx159 kg (227 lb)05/13/2025 1:27 PM CNDSxfolb589.7 cm (5' 8 ) 01/23/2024 1:31 PM EDTBody Mass Index34.52001/23/2024 1:31 PM EDT Plan of Treatment DateTypeDepartmentCare Team (Latest Contact Info)Zkxvclmracm61/03/2025 1:00 PM ESTRoutine NOMS [place] [facility] [address] [address] Lora Ortiz DO [address] [place], [place] [phone] Health MaintenanceDue DateLast DoneCommentsCOVID-19 Vaccine (2024- season) 2025Influenza Vaccine (#1)2025Pneumococcal Vaccine: Pediatrics (0 to 5 Years) and At-Risk Patients (6 to 64 Years)Aged OutNo longer eligible based on patient's age to complete this topic Procedures Procedure NamePriorityDate/TimeAssociated DiagnosisCommentsUS OB BPP W NON-JHHLHA6905/22/2025 12:44 PM EST US OB BPP W NON-BWZORR2705/15/2025 3:36 PM EST POCT URINALYSIS QSAXPLOFIkouuij41/19/2025 1:32 PM EST 32 weeks gestation of ([facility]) Third trimester ([facility]) POCT URINALYSIS GHIANFZEGzzhgah93/05/2025 1:42 PM EST 30 weeks gestation of ([facility]) US OB FOLLOW UP TRANSABDOMINAL APCCJLYGMtxgzwc45/05/2025 1:17 PM EST size inconsistent with dates ([facility]) CA ECHO DOPPLER JCDPTVXL02/29/2025 6:12 PM EDT ECG 12-LEAD04/22/2025 8:28 AM EDT POCT URINALYSIS FAVQUTOJLcawjhc63/22/2025 1:16 PM EDT 28 weeks gestation of ([facility]) ALL CBC WITH AUTO BZIRYrbnqgs07/08/2025 9:19 AM EDT GLUCOSE 1 ZLSPDnjkjfg76/08/2025 9:19 AM EDT POCT URINALYSIS CKYNUMQJHrkolsy93/24/2025 2:39 PM EDT Second trimester ([facility]) US OB LIMITED 1+ KSKORAPGnbbsof24/24/2025 2:17 PM EDT Encounter for follow-up ultrasound of anatomy ([facility]) from Last 3 Months Results * US OB BPP W NON-STRESS (05/22/2025 12:44 PM EST) Only the most recent of2 resultswithin the time period is included. Anatomical RegionLateralityModalityOtherSpecimen (Source)Anatomical Location / LateralityCollection Method / VolumeCollection TimeReceived Time05/22/2025 12:44 PM EST Narrative 05/22/2025 12:46 PM EST [facility] ?[address] ? [place] [address] ? Ultrasound Report ? Signed ? Patient: NATHANIEL TAYLOR ?MR#: [id number] ?? : 1995 ?Acct:[id number] ?? Age/Sex: 29 / F ?ADM Date: 05/22/25 ?? Loc: [facility] ? Attending Dr: Lora Ortiz D.O. ? Ordering Physician: Lora Ortiz D.O. ?? Date of Service: 05/22/25 ?? Procedure(s): US OB BPP w non-stress ?? Accession Number(s): [id number] ? cc: Kelly Mckenzie INJECTION MOLDING PROCESS TECHNICIAN; Lora Ortiz D.O. ? [facility] ? [address] ? [place] [address] ? Patient Name: ?? NATHANIEL TAYLOR ? MRN: [facility]:[id number] ? date: 1995 ?Sex: F ?? Assigned Patient Location: [facility] ?? Current Patient Location: ? Accession/Order Number: [id number] ?? Exam Date: 05/22/2025 ??11:02 ?Report Date: 05/22/2025 ??12:44 ? At the request of: ?? LORA ??ANGEL ??DO ? Procedure: ??US OB BPP w non-stress ? Biophysical profile. ? Reason for exam: Racing heart beat ? COMPARISON: 05/15/2025 ? TECHNIQUE: Transabdominal imaging of the gravid uterus was obtained. ? FINDINGS: The band aid machine operator reports a BPP of 8 out of 8. ??CLAUDE is normal at 14.6 ?? cm. ?? heart rate 129 bpm. ? US/US OB BPP w non-stress ?? IMPRESSION: BPP 8 out of 8. ? Impression dictated by: Himanshu Mckeon Jr., D.O. ??05/22/2025 12:44 PM ? Dictation Location: [facility]--23 ? Electronically authenticated by: [id number] ??Y ?? Date: 05/22/2025 ??12:44 ? Dictated By: ?Himanshu Mckeon M.D. ? Signed By: ?05/22/25 1246 ? DD/ 1244 ? TD/TT: ? Supervisor Particleboard: Procedure Note Radiology, Radiologist, - 05/22/2025 [place] [address] Ultrasound Report Signed Patient: NATHANIEL TAYLOR AMR#: [id number] : 1995Acct:[id number] Age/Sex: 29 / FADM Date: 05/22/25 Loc: [facility] Attending Dr: Lora Ortiz D.O. Ordering Physician: Lora Ortiz D.O. Date of Service: 05/22/25 Procedure(s): US OB BPP w non-stress Accession Number(s): [id number] cc: Kelly Mckenzie INJECTION MOLDING PROCESS TECHNICIAN; Lora Ortiz D.O. The [place] [phone] Patient Name: NATHANIEL TAYLOR MRN: [facility]:[id number] date: 1995 Sex: F Assigned Patient Location: [facility] Current Patient Location: Accession/Order Number: [id number] Exam Date: 05/22/2025 11:02 Report Date: 05/22/2025 12:44 At the request of: LORA ORTIZ DO Procedure: US OB BPP w non-stress Biophysical profile. Reason for exam: Racing heart beat COMPARISON: 05/15/2025 TECHNIQUE: Transabdominal imaging of the gravid uterus was obtained. FINDINGS: The band aid machine operator reports a BPP of 8 out of 8. CLAUDE is normal at14.6 cm. heart rate 129 bpm. US/US OB BPP w non-stress IMPRESSION: BPP 8 out of 8. Impression dictated by: Himanshu Mckeon Jr., D.O. 05/22/2025 12:44 PM Dictation Location: [place] [address] Electronically authenticated by: [id number] Y Date: 2:44 Dictated By: Himanshu Mckeon M.D. Signed By:05/22/25 1246 DD/ 1244 TD/TT: Supervisor Particleboard: Authorizing ProviderResult TypeResult StatusCorejordyn BONDLINISYJUANA IMAGINGFinal Result * (ABNORMAL) POCT urinalysis dipstick [...] Location / LateralityCollection Method / VolumeCollection TimeReceived EqjcLnuxm30/19/2025 1:32 PM EST Narrative Authorizing ProviderResult TypeResult StatusNicole SimmonsFreeman Health System OF [facility] TEST ENTER/EDIT ORDERABLESFinal Result * US OB [...] EDT Narrative 04/22/2025 6:13 PM EDT [facility] ?[address] ? [place] [address] ? Cardiology Report ? Signed ? Patient: NATHANIEL TAYLOR ?MR#: [id number] ?? : 1995 ?Acct:[id number] ?? Age/Sex: 29 / F ?ADM Date: 04/22/25 ?? Loc: CARD ? Attending Dr: Lora Ortiz D.O. ? Ordering Physician: Lora Ortiz D.O. ?? Date of Service: 04/22/25 ?? Procedure(s): CA echo doppler complete ?? Accession Number(s): [id number] ? cc: Kelly Mckenzie INJECTION MOLDING PROCESS TECHNICIAN; Lora Ortiz D.O. ? Patient Name: ? NATHANIEL TAYLOR ? MR#: [id number] ? : 1995 ? Exam Date: 04/22/2025 [...] ? 2.50 cm2, 2.50 cm2 ?? Deceleration Kimball: ? Pressure Half-Time: ? Peak Velocity(Antegrade Flow): [...] ?04/22/251812 ? DD/ 1812 ? TD/TT: ? Supervisor Particleboard: Procedure Note Radiology, Radiologist, MD - 04/22/2025 [place] [address] Cardiology Report Signed Patient: NATHANIEL TAYLOR AMR#: [id number] : 1995Acct:[id number] Age/Sex: 29 / FADM Date: 04/22/25 Loc: CARD Attending Dr: Lora Ortiz D.O. Ordering Physician: Lora Ortiz D.O. Date of Service: 04/22/25 Procedure(s): CA echo doppler complete Accession Number(s): [id number] cc: Kelly Mckenzie INJECTION MOLDING PROCESS TECHNICIAN; Lora Ortiz D.O. Patient Name: NATHANIEL TAYLOR MR#: [id number] : 1995 Exam Date: 04/22/2025 Ordering Doctor: [...] Area (VTI): 2.50 cm2, 2.50 cm2 Deceleration Kimball: Pressure Half-Time: Peak Velocity(Antegrade Flow): 1.55 m/s [...] Lopez M.D. Signed By:04/22/251812 DD/ 11 TD/TT: Supervisor Particleboard: Authorizing ProviderResult TypeResult StatusCorey Angel DOCLINISYNC IMAGINGFinal Result * ECG 12-LEAD (04/22/2025 8:28 AM EDT)Anatomical RegionLateralityModalityOther Specimen (Source)Anatomical Location / LateralityCollection Method / Volume Collection TimeReceived Time04/22/2025 8:28 AM EDT Narrative 04/22/2025 6:39 PM EDT [facility] ?[address] ? [place] [address] ? Electrocardiograph Report ? Signed ? Patient: NATHANIEL TAYLOR ?MR#: [id number] ?? : 1995 ?Acct:[id number] ?? Age/Sex: 29 / F ?ADM Date: //25 ?? Loc: CARD ? Attending Dr: Lora Ortiz D.O. ? Ordering Physician: Angel,Lora D.O. ?? Date of Service: 04/22/25 ?? Procedure(s): ECG 12 lead ?? Accession Number(s): [id number] ? cc: ?[facility] ? Test Date: ?2025-04-22 ?? Pat Name: ? NATHANIEL TAYLOR ?Department: ? Room: ? - ?? Gender: ? Female ? Perinatal Director: ? : ?1995 ? Requested By: LORA ORTIZ ?? Order Number: [id number] ?Reading MD: ?? SLY HERRERA ? Measurements ?? Intervals ?Wells ? Rate: ? 84 ? P: ?22 ?? MN: ? 139 ?QRS: ?88 ?? QRSD: ? 94 ? T: ?54 ?? QT: ? 361 ? QTc: ?429 ? Interpretive Statements ?? SINUS RHYTHM ?? No previous ECG available for comparison ?? Electronically Signed On 04-22-2025 18:39:57 EDT by SLY HERRERA ? Dictated By: ?Sly Herrera M.D. ? Signed By: ?10/29/25 1839 ?04/22/251838 ? DD/ 7 ? TD/TT: ? Supervisor Particleboard: Procedure Note Radiology, Radiologist, - 04/22/2025 [place] [address] Electrocardiograph Report Signed Patient: NATHANIEL TAYLOR AMR#: [id number] : 1995Acct:[id number] Age/Sex: Date: 04/22/25 Loc: CARD Attending Dr: Lora Ortiz D.O. Ordering Physician: Lora Ortiz D.O. Date of Service: 04/22/25 Procedure(s): ECG 12 lead Accession Number(s): [id number] cc: [facility] Test Date: 2025-04-22 Pat Name: NATHANIEL TAYLOR Department: Room: - Gender: Female Perinatal Director: : 1995 Requested By: LORA ORTIZ Order Number: [id number] Reading MD: SLY HERRERA Measurements Intervals Wells Rate: 84 P: 22 MN: 139 QRS: 88 QRSD: 94 T: 54 QT: 361 QTc: 429 Interpretive Statements SINUS RHYTHM No previous ECG available for comparison Electronically Signed On 04-22-2025 18:39:57 EDT by SLY HERRERA Dictated By: Sly Herrera M.D. Signed By:04/22/25183804/22/251838 DD/ 7 TD/TT: Supervisor Particleboard: Authorizing ProviderResult TypeResult StatusCorejordyn Angel REANNASUZANNE IMAGINGFinal Result * GLUCOSE 1 HOUR (04/01/2025 9:19 AM EDT)ComponentValueRef RangeTest Method Analysis TimePerformed AtPathologist SignatureGLUCOSE 1 SWTV312<130 mg/dLTBH Specimen (Source)Anatomical Location / LateralityCollection Method / Volume Collection TimeReceived Time04/01/2025 9:19 AM EDT1 9:27 AM EDT Narrative CLINISYNC - 04/01/2025 10:15 AM EDT Authorizing ProviderResult TypeResult StatusMakaylagiovana Marita NPLAB BLOOD ORDERABLESFinal ResultPerforming OrganizationAddressCity/State/ZIP CodePhone Number [facility] * (ABNORMAL) ALL CBC WITH AUTO DIFF (04/01/2025 9:19 AM EDT)ComponentValueRef RangeTest MethodAnalysis TimePerformed AtPathologist SignatureTBH WBC11.8(H) 4.0 - 11.0 10 3/uLTBHTBH RBC3.81(L)4.20 - 5.40 10 6/uLTBHTBH HGB10.9(L)12.0 - 16.0 g/dLTBHTBH HCT33.8(L)36.0 - 48.0 %TBHTBH MCV88.781.0 - 99.0 fLTBHTBH MCH 28.626.7 - 34.0 pgTBHTBH MCHC32.229.9 - 35.2 g/dLTBHTBH RDW12.611.0 - 15.0 % TBHTBH EPF839754 - 450 10 3/uLTBHTBH MPV11.09.5 - 13.5 [...] StatusKristina Marita NPCLINISYNCFinal ResultPerforming OrganizationAddressCity/State/ZIP CodePhone Number [facility] * OB limited 1+ fetuses (03/18/2025 2:17 PM [...] Date Unallocated, [facility] Provider, [address] [place] [address] PCP - GeneralFamily Jiytgebg03/14/24 Treasure England DO [address] [place] [address] Referring HxoluwzndBaewdsgkh55/14/24
--- OUTSIDE RECORDS SUMMARY | 2025-05-27 09:02 | XMS_ITS | CCD ---
Author Organization [facility] Care Team Providers Care Network Support Name Role Phone NICK, DR NIELSEN Admitting Unavailable NICK, DR NIELSEN Attending Unavailable SMITH ., VI Primary Care Unavailable NICK, DR NIELSEN Consulting Unavailable ANGEL ., DR PAULINO Consulting Unavailable ANGEL ., DR PAULINO Admitting Unavailable ANGEL ., DR PAULINO Attending Unavailable SMITH ., VI Primary Care Unavailable FARIBAULT, DR NIELSEN V Consulting Unavailable ANGEL ., [...] Unavailable YANELI Ding Primary Care Provider 1( [phone] Junito Ortiz Attending Provider Magaly PHYSICIST CRYOGENICSNelida HANSEN Primary Care Provider Unallocated , Meryls [...] of OnsetReaction(s) Facility (9 sources)House dust miteDrug allergyPeerbyAPI Healthcare [place] Other (20 sources)PollenDrug yrjirgj22-70-3083CbhmkqqDuljh [place] Other (5 sources)house dust allergenic extract; Translations: [house dust]Drug Allergy 93-09-3971Wkauvaf ReactionAkron Children[facility] (5 sources)Pollen; Translations: [pollen extracts]Allergy to fwunhvoan35-66-8141 Unknown ReactionAkron Children'S Hospital Medications Current Medications MedicationDrug Class(es)DatesSig (Normalized)Sig (Original)acetaminophen 300 mg / codeine phosphate 30 mg oral tablet (4 sources)Opioid AgonistStart: 01-14-2025 End: 31-63-6392wvcw 1 tablet by mouth every six hours [...] Activedexamethasone 1 mg oral tablet (2 sources)CorticosteroidStart: 82-33-9796Ebarpvrjyzcss 1 MG 1 tablet Orally 11pm for 1 days Jan, ActiveDoxylamine Succinate, Sleep, (UNISOM PO) (19 sources)Doxylamine Succinate, Sleep, (UNISOM PO) Take by mouth Active fexofenadine (10 sources)Histamine-1 Receptor AntagonistStart: 76-21-2814hxupnztzpkgc ([facility]) Active PO December 25, 2023 12:00amStart: 09-19-2023 End: 17-08-4497ttwduwdjrkli (Blanche Allergy) Discontinued PO Daily September 19, 2023 12:00am November 28, 2023 8:59amStart: 21-94-8512zrcnugpnhrav (Blanche Allergy) Active PO Daily September 19, 2023 12:00amStart: 09-12-2023 End: 44-71-2823nruzayrlwyhd (Blanche Allergy) 180 MG tablet 09/12/2023 12/17/2024 DiscontinuedMagnesium (20 sources)Start: 16-28-1839xcmedcpaz Active PO December 25, 2023 12:00amStart: 09-03-2023 End: 89-06-1421evnwbmilq Discontinued PO September 03, 2023 12:00am November 28, 2023 8:59amStart: 01-61-7356zvrnrcadn Active PO September 03, 2023 12:00amStart: 94-48-7169yfbvmdmyq 100 MG tablet 08/17/2022 ActiveMagnesium OTC, daily Active metoclopramide 10 mg oral tablet (20 sources)Dopamine-2 Receptor AntagonistStart: 11-91-6781lgnz 1 tablet by mouth in the morning as needed for nauseametoclopramide (Reglan) 10 MG tablet Indications: Nausea and vomiting in ([facility]) TAKE 1TABLET BY MOUTH IN MORNING,AT NOON,IN EVENING 30 MINUTES PRIOR TO MEALS NEEDED FOR NAUSEA 90 tablet 1 03/23/2025 ActiveStart: 01-26-2025 End: 55-67-2148asqzzhtnokfwgj (Reglan) 10 MG tablet Indications: Nausea and vomiting in ([facility]) Take 1tablet (10 mg) by mouth in the morning and 1 tablet (10 mg) at noon and 1 tablet (10 mg) in the evening. Take before meals. Take 1 tablet by mouth 30 minutes prior to meals 3 times daily as needed for nausea. 90 tablet 1 01/26/2025 ActiveStart: 01-14-2025 End: 02-78-8189zqvo 1 tablet by mouth three times daily as neededmetoclopramide (Reglan) 10 MG tablet Indications: Nausea and vomiting in ([facility]) Take 1tablet (10 mg) by mouth 3 (three) times a day as needed (as needed prior to meals) for up to 10 days 1 tablet 01/14/2025 01/24/2025 ActiveStart: 12-16-2024 End: 66-14-3728cqxb 1 tablet by mouth before mealtime as needed for nausea metoclopramide (Reglan) 10 MG tablet Indications: Nausea and vomiting in ([facility]) TAKE 1TABLET BY MOUTH IN THE MORNING, NOON, EVENING, 30 MINUTES BEFORE MEALS NEEDED FOR NAUSEA 90 tablet 3 12/16/2024 12/17/2024 Discontinued (Ineffective)Start: 11-14-2024 End: 14-93-7912gjbfuenbnyqbpm (Reglan) 10 MG tablet Indications: Nausea and vomiting in ([facility]) Take 1tablet (10 mg) by mouth in the morning and 1 tablet (10 mg) at noon and 1 tablet (10 mg) in the evening. Take before meals. Take 1 tablet by mouth 30 minutes prior to meals 3 times daily as needed for nausea. 90 tablet 11/14/2024 12/14/2024 Activeomeprazole 20 mg delayed release oral capsule (20 sources)Proton Pump InhibitorStart: 01-26-2025 End: 95-05-3686fusf 2 capsules by mouth before mealtimeomeprazole (PriLOSEC) [address] capsule Indications: Gastroesophageal Reflux Disease , Heartburn Take 2 capsules (40 mg) by mouth in the morning. Take before meals. Do not crush or chew. 180 capsule 05/19/2025 ActiveStart: 09-03-2023 End: 56-10-1070ihpl 40 mg by mouth once dailyOmeprazole Discontinued 40 MG PO Daily 90 90 September 03, 2023 2:16pm November 28, 2023 8:59amStart: 06-94-1402ppgo 2 capsules by mouth in the morningomeprazole (PriLOSEC) 20 mg capsule Take 2 capsules (40 mg total) by mouth in the morning. 02/21/2023 ActiveStart: 77-88-9741fbbk 1 capsule by mouth once dailyOmeprazole 40 MG 1 capsule 30 minutes before morning meal Orally Once a day for 90 days Jan, Active Start: 48-17-5499jhke 1 capsule by mouth in the morningomeprazole (PriLOSEC) 20 mg capsule Take 1 capsule (20 mg total) by mouth in the morning. 0 02/21/2023 Activeondansetron 4 mg oral tablet (20 sources)Serotonin-3 Receptor AntagonistStart: 11-05-2024 End: 36-92-7042iwgl 1 tablet by mouth every six hours as needed for nausea and nausea, then take 1 tablet by mouthevery six hours as needed for nausea and nauseaondansetron (Zofran) 4 MG tablet Indications: Nausea and vomiting in ([facility]) Take 1 tablet (4 mg) by mouth every 6 (six) hours if needed for nausea or vomiting for up to 30 doses Take 1 tablet by mouth every 6 hours as needed for nausea. 30 tablet 3 01/14/2025 ActiveStart: 09-03-2023 End: 74-65-7791gtus 4 mg by mouth once dailyOndansetron Hcl Active 4 MG PO Daily December 25, 2023 12:36pmStart: 33-48-7003ivhr 1 tablet by mouth every twenty-four hoursOndansetron HCl 4 MG 1 tablet Orally Once a day for 14 days Jun, Active End: 36-26-2125vuhu 1 tablet by mouth every eight hours [...] tablet (19 sources)Proton Pump InhibitorStart: 12-17-2024 End: 75-31-5843jhod 1 tablet by mouth before mealtimepantoprazole (Protonix) [...] hydrochloride 12.5 mg oral tablet (12 sources)PhenothiazineStart: 26-23-1468tsrm 1 tablet by mouth every eight hours as needed for nausea and nausea, then take 1 tablet by mouth every six hours as needed for nausea and nauseapromethazine (Phenergan) 12.5 MG tablet Indications: Nausea and vomiting in ([facility]) Take 1 tablet (12.5 mg) by mouth [...] PERSISTSMAX 2/24HR 12 tablet 2 07/04/2024 ActiveStart: 69-13-3812dytimjsoime (MAXALT) 10 mg tablet Indications: Migraine without aura and without status migrainosus, not intractable Take 1 tablet just after onset of migraine. May repeat the dose after 2 hours if migraine persists. Max of 2 doses per 24 hours. 12 tablet 2 09/05/2023 ActiveStart: 05-23-2023 End: 37-34-0607cwda 5 mg by mouth once dailyRizatriptan Discontinued 5 MG PO Daily September 03, 2023 12:00am November 28, 2023 8:59amverapamil hydrochloride 120 mg extended release oral tablet (2 sources)Calcium Channel BlockerStart: 89-95-8611fanj 1 tablet by mouth once dailyverapamil SR (CALAN-SR) 120 mg CR tablet Indications: Migraine without aura and without status migrainosus, not intractable Take 1 tablet (120 mg total) by mouth nightly. 30 tablet 5 09/05/2023 Activezolpidem tartrate 10 mg oral tablet (16 sources)gamma-Aminobutyric Acid-ergic AgonistStart: 01-14-2025 End: 69-88-8539Hdtrvk 10 MG tablet Indications: related fatigue in second trimester ([facility]) , Insomnia, unspecified type Take 1 tablet (10 mg) by mouth as needed at bedtime for sleep for up to 5 days 5 tablet 01/14/2025 Active Completed/Discontinued Medications MedicationDrug Class(es)DatesSig (Normalized)Sig (Original)Atogepant (4 sources)Start: 09-03-2023 End: 36-32-5820dlfs 60 mg by mouth once dailyAtogepant Discontinued 60 MG PO Daily September 03, 2023 12:00am September 19, 2023 11:04amatogepant (QULIPTA) 60 mg tablet (2 sources)Start: 05-23-2023 End: 12-83-8444csbw 1 tablet by mouth in the morningatogepant (QULIPTA) 60 mg tablet Indications: Migraine without aura and without status migrainosus,not intractable Take 60 mg by mouth in the morning. 30 tablet 5 05/23/2023 09/05/2023 DiscontinuedStart: 30-13-8643yxop 1 tablet by mouth in the morning atogepant (QULIPTA) 60 mg tablet Indications: Migraine without aura and without status migrainosus,not intractable Take 60 mg by mouth in the morning. 30 tablet 5 05/23/2023 Gsooxd77 hr buPROPion hydrochloride 150 mg extended release oral tablet (20 sources)AminoketoneStart: 09-19-2023 End: 52-63-8464btzy 150 mg by mouth once dailyBupropion Hcl Discontinued 150 MG PO Daily 90 September 19, 2023 11:41am November 28, 2023 8:59amStart: 09-03-2023 End: 40-12-2879ecdo 1 tablet by mouth once dailyBupropion Hcl [...] oral tablet (5 sources)Histamine-2 Receptor Antagonist End: 61-28-4327ktvoepqkhn (Pepcid) 10 MG tablet Take by mouth 01/14/2025 Discontinuedmagnesium oxide 250 mg oral tablet (2 sources) End: 92-91-9390eczq 1 tablet by mouth in the morningmagnesium oxide 250 mg tablet Take 1 tablet (250 mg total) by mouth in the morning. 0 09/05/2023 Dis continuedPNV no.95/ferrous fum/folic ac ( ORAL) (2 sources) End: 36-32-9604xtfp 1 tablet by mouth once daily before mealtimePNV no.95/ferrous fum/folic ac ( ORAL) Take 1 tablet by mouth daily. 0 09/05/2023 Discontinuedtake 1 tablet by mouth once daily before mealtimePNV no.95/ferrous fum/folic ac ( ORAL) Take 1 tablet by mouth daily. 0 Activepolysaccharide iron complex 391 mg oral capsule (7 sources)Start: 04-01-2025 End: 09-11-0223pyuc 1 capsule by mouth once dailyiron polysaccharides (ProFe) 391.3 (180 Fe) MG capsule Indications: Low iron Take 1 capsule (391.3 mg) by mouth Daily 30 capsule 6 04/01/2025 05/01/2025 Expiredpropranolol hydrochloride 20 mg oral tablet (4 sources)beta-Adrenergic BlockerStart: 05-23-2023 End: 47-03-8491dfyrriwvsrG (INDERAL) 20 mg tablet Indications: Migraine without aura and without status migrainosus, not intractable Take 1 tablet (20 mg) twice daily for 3 days, then reduce to 1 tablet daily for 3days, then discontinue 9 tablet 0 05/23/2023 09/05/2023 Discontinuedtake 1 tablet by mouth at bedtime Propranolol HCl 60 MG 1 tablet Orally HS for migraines Activevitamin B12 (5 sources)Vitamin L63Rrvszfm B12 Not-Taking Problems Active Problems Problem ClassificationProblemDateDocumented DateEpisodic/ChronicAnxiety disorders (17 sources)Anxiety; Translations: [Anxiety disorder, unspecified]ChronicComa; stupor; and brain damage (2 sources)Somnolence; Translations: [Daytime somnolence]Onset: 09-05-2023 16-21-4229ArfmkmgcNfskeigjkl associated with dizziness or vertigo (12 sources)Dizziness; Translations: [Dizziness and giddiness]EpisodicEsophageal disorders (9 sources)Gastroesophageal reflux disease; Translations: [Gastro-esophageal reflux disease without esophagitis]95-03-3081VuhujgqDgaexuni; including migraine (20 sources)Migraine; Translations: [Migraine, unspecified, not intractable, without status migrainosus]Onset: 16-55-7802AoqvuevUufyb valve disorders (6 sources)Tachycardia; Translations: [Unspecified abnormalities of heart beat] 93-20-9546YhvuakbdKlcrrrqygenuh and screening for infectious disease (3 sources)Encounter for screening for human papillomavirus (HPV); Translations: [Exposure to sexually transmissible disorder]Onset: 403089-65-6908Lfeqpgpo Malaise and fatigue (1 source)Other fatigue; Translations: [OTHER FATIGUE]Onset: 18-43-1012Jlcdpjki Menstrual disorders (5 sources)Irregular menstruation, unspecified; Translations: [Missed period] Onset: 99-16-5792SbpddeqBqtj disorders (13 sources)Depressive disorder; Translations: [Major depressive disorder, single episode, unspecified]44-56-4192TpwptqlWbdork and vomiting (18 sources)Nausea; Translations: [Nausea]Onset: 11-53-7345EulonfleFlerc bone disease and musculoskeletal deformities (1 source)Segmental and somatic dysfunction of pelvic region; Translations: [Segmental and somatic dysfunction of pelvic region]Onset: 80-62-4792Kivjqonh Other complications of (6 sources)Vomiting of , unspecified; Translations: [Unspecified vomiting of , unspecified as to episode of care or not applicable] 60-40-1080TiauavoiQetkx complications of (2 sources)High risk ; Translations: [Supervision of with other poor reproductive or obstetric history, unspecified trimester]12-17-2024 EpisodicOther complications of (2 sources)Fatigue during ; Translations: [ related exhaustion and fatigue, second trimester]63-41-6623JyzliyzrPkfpm complications of (2 sources) size does not accord with dates; Translations: [Uterine size- date discrepancy, unspecified trimester]12-54-0983HznbbfmiUprka endocrine disorders (5 sources)Other adrenocortical overactivity; Translations: [OTHER ADRENOCORTICAL OVERACTIVITY]Onset: 78-52-6998IaxuoxkYgvkf endocrine disorders (9 sources)Dehydroepiandrosterone sulfate level; Translations: [Other specified disorders of adrenal gland]ChronicOther endocrine disorders (9 sources)Increased cortisol level; Translations: [Other adrenocortical overactivity]ChronicOther endocrine disorders (2 sources)Other specified disorders of adrenal glandChronicOther female genital disorders (2 sources)Vaginal discharge; Translations: [Other specified noninflammatory disorders of vagina]16-30-7882FmvvyyciGuxko and delivery including normal (20 sources); Translations: [Encounter for supervision of normal , unspecified, unspecified trimester]Onset: EpisodicOther screening for suspected conditions (not mental disorders or infectious disease) (20 sources)Encounter for screening for malignant neoplasm of cervix; Translations: [Other specified abnormal findings of blood chemistry]Onset: 90-49-4167OvczzizbFhmyo upper respiratory disease (13 sources)Seasonal allergy; Translations: [Other seasonal allergic rhinitis] 79-17-4272LsjgrzuPjbfd upper respiratory infections (1 source)Acute upper respiratory infection, unspecifiedEpisodicResidual codes; unclassified (2 sources)Gestation period, 11 weeks; Translations: [11 weeks gestation of ]94-00-2862MzjctzghNwstourp codes; unclassified (2 sources)Gestation period, 15 weeks; Translations: [15 weeks gestation of ]13-16-0308LrmzmglqKxfbexxv codes; unclassified (2 sources)Insomnia; Translations: [Insomnia, unspecified]18-13-2888Hgirqkhv Residual codes; unclassified (2 sources)Gestation period, 20 weeks; Translations: [20 weeks gestation of ]04-25-0887FuvcamvbBftmpyds codes; unclassified (2 sources)Gestation period, 24 weeks; Translations: [24 weeks gestation of ]47-55-8020TxzjlfurLpenzftn codes; unclassified (2 sources)Gestation period, 28 weeks; Translations: [28 weeks gestation of ]28-41-6196TemnksgsJfeupugy codes; unclassified (2 sources)Gestation period, 30 weeks; Translations: [30 weeks gestation of ]45-15-9592Yvsmhocp Past or Other Problems Problem ClassificationProblemDateDocumented DateEpisodic/ChronicAbdominal pain (4 sources)Unspecified abdominal pain; Translations: [UNSPECIFIED ABDOMINAL PAIN]Onset: 05-77-4548RuefifthOcmwuedxjlda injury (5 sources)Personal history of traumatic brain injury; Translations: [History of concussion injury of brain]Onset: 598669-89-9851DjirjlajPuxh disorders (3 sources)Mood disordersOnset: Other complications of ; puerperium affecting management of mother (3 sources)Central nervous system malformation in fetus affecting obstetrical care; Translations: [Choroid plexus cyst of fetus affecting care of mother, antepartum]Onset: 298716-66-5209JedvzagnPryue endocrine disorders (1 source)Endocrine disorder, unspecified; Translations: [ENDOCRINE DISORDER UNSPECIFIED]Onset: 68-46-4547JrybzcqsXrlyc endocrine disorders (1 source)Other specified endocrine disorders; Translations: [Other specified endocrine disorders]Onset: 76-32-1018MtggmtsfCvotb endocrine disorders (4 sources)Cyst of pineal gland; Translations: [Other specified endocrine disorders]Onset: 672672-17-8664WywffpmiRaaek gastrointestinal disorders (1 source)Abdominal distension (gaseous); Translations: [ABDOMINAL DISTENSION GASEOUS]Onset: 30-10-5655AokoxajaLlteyxu cyst (1 source)Other ovarian cyst, right side; Translations: [OTHER OVARIAN CYST RIGHT SIDE]Onset: 66-66-5494Ardryfpl Results Test NameValueInterpretationReference RangeFacilityUS OB FOLLOW UP TRANSABDOMINAL APPROACHon 90-52-0987ZZ OB FOLLOW UP TRANSABDOMINAL APPROACH FINDINGS: A [...] Delivery: 07/05/25 Gestational Age as of 04/15/2025: 52y2rJlrixosauh macro (dipstick) panel (U)on 83-04-6414Vbbbvncrc, UANegativeNegative - 4(70) +++ mg/dLNOMS HealthcareBlood, UANegativeNegative - 50 Cj/mcLNOMS HealthcareClarity, UAClearNOMS Healthcare Color, UAYellowNOMS HealthcareGlucose, UANegativeNegative - 2000(110) ++++ mg/dL NOMS HealthcareInterpretation and review of laboratory resultsAbnormalNOMS HealthcareKetones, UANegativeNegative - 160(16) ++++ mg/dLNOMS Healthcare Leukocytes, UATraceNegative - 500+++ Cosmo/mcLNOMS HealthcareNitrite, UANegative Negative - PositiveNOMS HealthcarepH, UA7.05 - 9NOMS HealthcareProtein, UA NegativeNegative - 2000(20) ++++ mg/dLNOWV HealthcareSpec Grav, UA1.0101 - 1.03 NOMS HealthcareUrobilinogen, UA1.00.2 - 12 mg/dLNOWV HealthcareNOWV HealthcareCA ECHO DOPPLER COMPLETEon 64-84-3570RxhTimmons[place] [address] Cardiology Report Signed Patient: NATHANIEL BOB MR#: [id number] : 1995 Acct:[id number] Age/Sex: 29 / F ADM Date: 04/22/25 Loc: CARD Attending Dr: Junito Ortiz D.O. Ordering Physician: Junito Ortiz D.O. Date of Service: 04/22/25 Procedure(s): CA echo doppler complete Accession Number(s): [id number] cc: Nelida Ding CTC OPERATOR; Junito Ortiz D.O. Patient Name: NATHANIEL BOB MR#: [id number] : 1995 Exam Date: 04/22/2025 Ordering Doctor: [...] Area (VTI): 2.50 cm2, 2.50 cm2 Deceleration Bullock: Pressure Half-Time: Peak Velocity(Antegrade Flow): 1.55 m/s [...] content not included)...TBHRadiology, Radiologist, - 04/22/2025 [place] [address] Cardiology Report Signed Patient: NATHANIEL BOB MR#: [id number] : 1995 Acct:[id number] Age/Sex: 29 / F ADM Date: 04/22/25 Loc: CARD Attending Dr: Junito Ortiz D.O. Ordering Physician: Junito Ortiz D.O. Date of Service: 04/22/25 Procedure(s): CA echo doppler complete Accession Number(s): [id number] cc: Nelida Ding CTC OPERATOR; Junito Ortiz D.O. Patient Name: NATHANIEL BOB MR#: [id number] : 1995 Exam Date: 04/22/2025 Ordering Doctor: [...] Area (VTI): 2.50 cm2, 2.50 cm2 Deceleration Bullock: Pressure Half-Time: Peak Velocity(Antegrade Flow): 1.55 m/s [...] M.D. Signed By: 04/22/251812 DD/ 11 TD/TT: Rotary Filter Operator: [facility] HOSPITALDominguez HealthcareRadiology Study observation (narrative)[facility] HealthcareCA ECHO DOPPLER COMPLETEOrdered By: Radiologist Radiology on 55-41-7737ZNTQ creads Work Phone: ecg 12-LEADon [phone] [address] Electrocardiograph Report Signed Patient: NATHANIEL BOB MR#: [id number] : 1995 Acct:[id number] Age/Sex: 29 / F ADM Date: 04/22/25 Loc: CARD Attending Dr: Junito Ortiz D.O. Ordering Physician: Junito Ortiz D.O. Date of Service: 04/22/25 Procedure(s): ECG 12 lead Accession Number(s): [id number] cc: [facility] Test Date: 2025-04-22 Pat Name: NATHANIEL BOB Department: Room: - Gender: Female Flower Planter: : 1995 Requested By: JUNITO ORTIZ Order Number: [id number] Reading MD: SLY SAAB Measurements Intervals Geronimo Rate: 84 P: 22 FL: 139 QRS: 88 QRSD: 94 T: 54 QT: 361 QTc: 429 Interpretive Statements SINUS RHYTHM No previous ECG available for comparison Electronically Signed On 04-22-2025 18:39:57 EDT by SLY SAAB Dictated By: Sly Saab M.D. Signed By: 04/22/25183804/22/251838 DD/ 7 TD/TT: Rotary Filter Operator:CHADWICKadiolSarahi acosta MD - 04/22/2025 [facility] [place] [id number] Electrocardiograph Report Signed Patient: NATHANIEL BOB MR#: [id number] : 1995 Acct:[id number] Age/Sex: 29 / F ADM Date: 04/22/25 Loc: CARD Attending Dr: Junito Ortiz D.O. Ordering Physician: Juinto rOtiz D.O. 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 Signed By: 04/22/25183804/22/251838 DD/ 7 TD/TT: Rotary Filter Operator: NATALIE BarriosRadiology Study observation (narrative)[facility] HealthcareECG 12-LEAD Ordered By: Radiologist Radiology on 22-86-2035[facility] Work Phone: Urinalysis macro (dipstick) panel (U)on 04-15-2025 Bilirubin, UANegativeNegative - 4(70) +++ mg/dLNOMS HealthcareBlood, UANegative Negative - 50 Cj/mcLNOMS HealthcareClarity, UAClearNOMS HealthcareColor, UA YellowNOMS HealthcareGlucose, UANegativeNegative - 2000(110) ++++ mg/dLNOMS HealthcareInterpretation and review of laboratory resultsAbnormalNOMS Healthcare Ketones, UANegativeNegative - 160(16) ++++ mg/dLNOMS HealthcareLeukocytes, UA TraceNegative - 500+++ Cosmo/mcLNOWV HealthcareNitrite, UANegativeNegative - PositiveNOMS HealthcarepH, UA6.05 - 9NOMS HealthcareProtein, UATraceNegative - 2000(20) ++++ mg/dLNOWV HealthcareSpec Grav, UA1.0201 - 1.03N[facility] Urobilinogen, UA2.00.2 - 12 mg/dLNOMS HealthcareNOMS HealthcareGLUCOSE 1 HOURon 20-04-3830Fjhcjcv [Mass/Vol]114 mg/dLNINF - 130 mg/dLNOWV HealthcareCLINISYNC NOMS HealthcareUS OB LIMITED 1+ FETUSESon 97-29-9589AI OB LIMITED 1+ FETUSES FINDINGS: Breech presentation. [...] Delivery: 07/05/25 Gestational Age as of 02/25/2025: 06g3tYwccordyeq macro (dipstick) panel (U)on 74-84-9073Mpfhhbaeg, UANegativeNegative - 4(70) +++ mg/dLNOMS HealthcareBlood, UANegativeNegative - 50 Cj/mcLNOMS HealthcareClarity, UAClearNOMS Healthcare Color, UAYellowNOMS HealthcareGlucose, UANegativeNegative - 2000(110) ++++ mg/dL NOMS HealthcareInterpretation and review of laboratory resultsNormalNOWV HealthcareKetones, UANegativeNegative - 160(16) ++++ mg/dLNOWV Healthcare Leukocytes, UANegativeNegative - 500+++ Cosmo/mcLNOMS HealthcareNitrite, UA NegativeNegative - PositiveNOWV HealthcarepH, UA6.55 - 9NOMS HealthcareProtein, UANegativeNegative - 2000(20) ++++ mg/dLNOMS HealthcareSpec Grav, UA1.011 - 1.03 NOMS HealthcareUrobilinogen, UA1.00.2 - 12 mg/dLNOMS [facility] Urinalysis macro (dipstick) panel (U)on 86-61-5962Qkzorrqil, UANegativeNegative - 4(70) +++ mg/dLNOMS HealthcareBlood, UANegativeNegative - 50 Cj/mcLNOMS HealthcareClarity, UAClearNOMS HealthcareColor, UAYellowNOMS HealthcareGlucose, UANegativeNegative - 1999(110) ++++ mg/dLNOMS HealthcareInterpretation and review of laboratory resultsAbnormalNOMS HealthcareKetones, UANegativeNegative - 160(16) ++++ mg/dLNOMS HealthcareLeukocytes, UAPositiveNegative - 500+++ Cosmo/mcLNOMS HealthcareNitrite, UANegativeNegative - PositiveNOMS HealthcarepH, UA65 - 9NOMS HealthcareProtein, UANegativeNegative - 1999(20) ++++ mg/dLNOMS HealthcareSpec Grav, UA1.0251 - 1.03NOMS HealthcareUrobilinogen, UA1.00.2 - 12 mg/dLNOMS [facility] CenterNOWV HealthcareIGP,APTIMA HPV,AGE GDLNon 60-67-3444ZSO GDLN ACOG TESTINGNote.[facility] HealthcareComment on above:TESTS RESULT FLAG UNITS REF RANGE LAB Clinician Provided Cytology Information Source.............Endocervix No. of containers..01 ThinPrep Vial Age Algo ACOG Marina... FLAG LEGEND: L-Low Normal,H-High Normal,LL-Alert Low,HH-Alert High <-Panic Low,>-Panic High,A-Abnormal,AA-Critical Abnormal Performed at: 01 [facility] [place] [address] Maliha Cobb MD, IGP, RFX APTIMA HPV ASCUNote.NOMS HealthcareComment on above:TESTS RESULT FLAG UNITS REF RANGE LAB DIAGNOSIS: 02 NEGATIVE FOR INTRAEPITHELIAL LESION OR MALIGNANCY. Specimen adequacy: 02 Satisfactory for evaluation. No endocervical component is identified. Performed by: Santi Gregory, Resistor Inspector ([facility]) . 02 Note: Note 02 The [...] <-Panic Low,>-Panic High,A-Abnormal,AA-Critical Abnormal Performed at: [address] [address] Maliha Cobb MD, Performed at: = - [facility] [address] [id number] Beekeeper: Maliha Cobb MD, Phone: [phone] Performed at: [facility] [address] [id number] Beekeeper: Maliha Cobb MD, Phone: [phone] SPATULA-ALONE ENDOCERVIX CLINISYNCNOMS HealthcareRECURRENT VAGINITIS (HTRX)on 08-25-9110FJXYRKRVH VAGINAE 0NOMS HealthcareATOPOBIUM VAGINAENot detectedNOMS HealthcareBVAB 2,3 (BACTERIAL VAGINOSIS ASSOCIATED BACTERIA 2, 3); MOBILUNCUS GHA9YMUS HealthcareBVAB 2,3 (BACTERIAL VAGINOSIS ASSOCIATED BACTERIA 2, 3); MOBILUNCUS SPPNot detectedNOMS HealthcareCANDIDA ALBICANS, PARAPSILOSIS, [id number] HealthcareCANDIDA ALBICANS, PARAPSILOSIS, TROPICALISNot detectedNOMS HealthcareCANDIDA GLABRATA0 NOMS HealthcareCANDIDA GLABRATANot detectedNOMS HealthcareCANDIDA [id number] HealthcareCANDIDA KRUSEINot detectedNOMS HealthcareCHLAMYDIA [id number] HealthcareCHLAMYDIA TRACHOMATISNot detectedNOMS HealthcareGARDNERELLA VAGINALIS0 NOMS HealthcareGARDNERELLA VAGINALISNot detectedNOMS HealthcareMEGASPHAERA (TYPES 1, 2)0NOMS HealthcareMEGASPHAERA (TYPES 1, 2)Not detectedNOMS Healthcare MYCOPLASMA [id number] HealthcareMYCOPLASMA GENITALIUMNot detectedNOMS HealthcareNEISSERIA [id number] HealthcareNEISSERIA GONORRHOEAENot detected NOMS HealthcareTRICHOMONAS [id number] HealthcareTRICHOMONAS VAGINALISNot detectedNOMS HealthcareNOMS HealthcareUS OB 14+ [...] Delivery: 07/05/25 Gestational Age as of 01/14/2025: 48o9xBacsedvpbk macro (dipstick) panel (U)on 82-36-9672Msfshvldv, UANegativeNegative - 4(70) +++ mg/dLNOMS HealthcareBlood, UANegativeNegative - 50 Cj/mcLNOMS HealthcareClarity, UAClearNOMS Healthcare Color, UAYellowNOMS HealthcareGlucose, UANegativeNegative - 2000(110) ++++ mg/dL NOMS HealthcareInterpretation and review of laboratory resultsNormalNOMS HealthcareKetones, UANegativeNegative - 160(16) ++++ mg/dLNOMS Healthcare Leukocytes, UANegativeNegative - 500+++ Cosmo/mcLNOMS HealthcareNitrite, UA NegativeNegative - PositiveNOMS HealthcarepH, UA65 - 9NOMS HealthcareProtein, UA NegativeNegative - 2000(20) ++++ mg/dLNOWV HealthcareSpec Grav, UA1.021 - 1.03 NOMS HealthcareUrobilinogen, UA1.00.2 - 12 mg/dLNOWV HealthcareNOMS Healthcare Urinalysis macro (dipstick) panel (U)on 99-36-7979Uzrbhyotc, UANegativeNegative - 4(70) +++ mg/dLNOMS HealthcareBlood, UANegativeNegative - 50 Cj/mcLNOWV HealthcareClarity, UAClearNOWV HealthcareColor, UAYellowNOWV HealthcareGlucose, UANegativeNegative - 2000(110) ++++ mg/dLNOWV HealthcareInterpretation and review of laboratory resultsAbnormalUTAH STATE HOSPITAL HealthcareKetones, UANegativeNegative - 160(16) ++++ mg/dLUTAH STATE HOSPITAL HealthcareLeukocytes, UAPositiveNegative - 500+++ Cosmo/mcLUTAH STATE HOSPITAL HealthcareComment on above:smallNitrite, UANegativeNegative - PositiveNOMS HealthcarepH, UA5.55 - 9NOMS HealthcareProtein, UANegativeNegative - 2000(20) ++++ mg/dLNOWV HealthcareSpec Grav, UA1.031 - 1.03NOWV Healthcare Urobilinogen, UA0.20.2 - 12 mg/dLNOMadison Medical CenterNOMS HealthcareALL CBC WITH AUTO DIFFon 95-62-2984XWADMXDSW ABSOLUTE AUTO0.1NOMS HealthcareBasophils/100 WBC (Bld)0.4 %0.2 - 2.0 %NOMS HealthcareEosinophils/100 WBC (Bld)0.9 %0.9 - 7.0 % [facility] HealthcareErythrocyte distribution width (RBC) [Ratio]13.4 %11.0 - 15.0 % [facility] HealthcareHematocrit (Bld) [Volume fraction]43.2 %36.0 - 48.0 %[facility] HealthcareHemoglobin (Bld) [Mass/Vol]15.2 g/dL12.0 - 16.0 g/dLCitizens Memorial Healthcare IMMATURE GRANULOCYTES ABS AUTO0.05HighNOMadison Medical CenterImmature granulocytes/100 WBC (Bld)0.4 %0.0 - 0.5 %[facility] HealthcareInterpretation and review of laboratory resultsAbnormalCitizens Memorial HealthcareLYMPHOCYTES ABSOLUTE AUTO2.3[facility] Lymphocytes/100 WBC (Bld)17.1 %Low20.5 - 60.0 %[facility] HospitalH (RBC) [Entitic mass]29.9 pg26.7 - 34.0 pgHarry S. Truman Memorial Veterans' HospitalHC (RBC) [Mass/Vol]35.2 g/dL29.9 - 35.2 g/dLHarry S. Truman Memorial Veterans' HospitalV (RBC) [Entitic vol]85 fL81.0 - 99.0 fLCitizens Memorial HealthcareMONOCYTES ABSOLUTE AUTO0.7[facility] HealthcareMonocytes/100 WBC (Bld)5.5 % 1.7 - 12.0 %[facility] HealthcareNEUTROPHILS ABSOLUTE AUTO10.3HighCitizens Memorial Healthcare Neutrophils/100 WBC (Bld)75.7 %High43.0 - 75.0 %[facility] HealthcarePlatelet mean volume (Bld) [Entitic vol]11.8 fL9.5 - 13.5 fLCitizens Memorial HealthcareTB EO #0.1NOMS [facility] QHZ797RDDCChristian Hospital RBC5.08NOChristian Hospital WBC13.6HighCitizens Memorial HealthcareCLINISYNCNMadison Medical CenterHCG ( test) Ql (U)on 12-05-2024 Interpretation and review of laboratory resultsAbnoEndless Mountains Health SystemsPreg Test, UrPositiveNegativeAtrium HealthUS OB TRANSVAGINALon 12-05-2024 US [...] II, MD, PHD at 06-Dec-2024 08:41:12 AM [facility] TeleradiologyNormalNot AvailableComment on above:Order Comment: US OB TRANSVAGINAL No LMP recorded.Urinalysis macro (dipstick) panel (U)on 16-33-5748Fourzhgor, UA NegativeNegative - 4(70) +++ mg/dLNOMS HealthcareBlood, UANegativeNegative - 50 Cj/Tonsil HospitalNOWV HealthcareClarity, UAClearNOWV HealthcareColor, UAYellowNOWV HealthcareGlucose, UANegativeNegative - 2000(110) ++++ mg/dLNOWV Healthcare Interpretation and review of laboratory resultsAbnormalNOWV HealthcareKetones, UANegativeNegative - 160(16) ++++ mg/dLNOWV HealthcareLeukocytes, UAPositive Negative - 500+++ Cosmo/Tonsil HospitalNOWV HealthcareNitrite, UANegativeNegative - Positive NOMS HealthcarepH, UA75 - 9NOMS HealthcareProtein, UAPositiveNegative - 2000(20) ++++ mg/dLNOMS HealthcareSpec Grav, UA1.021 - 1.03NOMS HealthcareUrobilinogen, UA1.00.2 - 12 mg/dLNOWV HealthcareNOMS HealthcareCORTISOL 24HR URINEon 52-16-0265Mrkqmoix,F,ug/24hr,U26 ug/24 hrNormal6-42Norwalk Memorial HospitalComment on above:Performed By: #### CORT24 #### [facility] [address] [address] [address] Lucrteia ZamudioCortisol,F,ug/L,U10 ug/LNormalUndefinedThe [facility] Comment on above:Performed By: #### CORT24 #### [facility] [address] [address] [address] Lucretia ZamudioCT ABDOMEN WO/W CONon 80-57-8860ZV ABDOMEN WO/W CONCLINICAL HISTORY: Blood chemistry abnormal. [...] Electronically authenticated by: YOVANY CLARK Date: 2022-08-27 08:37[facility] SERUMon 48-39-9485Fxnnmrwxwjpwuolnvzfoku (DHEA)1255 ng/dL Critically mwxi93-079Zhh [facility] HospitalComment on above:Result Comment: Age 1 - [...] 701Performed By: #### DHEA. #### [facility] [address] [place] [address] Dr. Lucretia ZamudioTESTOSTERONE, FREE,DIRECT, TOTALon 51-08-1791Dgyd Testosterone(Direct)2.8 pg/mLNormal0.0-4.2[facility] Memorial HospitalComment on above: Result Comment: Performed at: BNPerformed By: #### TESTFRD #### [facility] [address] [place] [address] Dr. Lucretia ZamudioTestosterone [Mass/Vol]42 ng/aGTvcszq42-95Jht [facility] Comment on above:Result Comment: Performed at: CBPerformed By: #### TESTFRD #### [facility] [address] [place] [address] Dr. Lucretia ZamudioCORTISOL Shiv 47-56-4916Fzrrikqk AM23.4 ug/dLCritically high 6.2-19.4The [facility] HospitalComment on above:Performed By: #### PROGES #### [facility] [address] [place] [address] Dr. Lucretia ZamudioDHEA-SULFATEon 36-97-6562ITYM-Rlqrilv117.0 ug/gQUxufio54.8-378.0 The [facility] HospitalComment on above:Performed By: #### LBCLH #### [facility] [address] [place] [address] Dr. Lucretia VergaraTRADIOLon 06-81-4415Wqwclczrs788.0 pg/mLNormalThe [facility] HospitalComment on above:Result Comment: Adult Female: Follicular phase 12.5 - 166.0 Ovulation phase 85.8 - 498.0 Luteal phase 43.8 - 211.0 Postmenopausal <6.0 - 54.7 1st trimester 215.0 - >4300.0 Dona ECLIA methodologyPerformed By: #### ESTRADI #### [facility] [address] [place] [address] Dr. Lucretia TanHon 14-94-7550MCY7.0 mIU/mLNormalNorwalk Memorial HospitalComment on above:Result Comment: Adult Female: Follicular phase 3.5 - 12.5 Ovulation phase 4.7 - 21.5 Luteal phase 1.7 - 7.7 Postmenopausal 25.8 - 134.8Performed By: #### LBCFSH #### [facility] [address] [place] [address] Dr. Lucretia ZamudioLUTEINIZING HORMONE (LH)on 55-39-1064QG6.7 mIU/mLNMetroHealth Main Campus Medical CenterComment on above:Result Comment: Adult Female: Follicular phase 2.4 - 12.6 Ovulation phase 14.0 - 95.6 Luteal phase 1.0 - 11.4 Postmenopausal 7.7 - 58.5Performed By: #### LBCLH #### [facility] [address] [place] [address] Dr. Lucretia ZamudioPROGESTERONEon 40-27-1385Iboszconrwtu1.2 ng/mLNMetroHealth Main Campus Medical CenterComment on above:Result Comment: Follicular phase 0.1 - 0.9 Luteal phase 1.8 - 23.9 Ovulation phase 0.1 - 12.0 First trimester 11.0 - 44.3 Second trimester 25.4 - 83.3 Third trimester 58.7 - 214.0 Postmenopausal 0.0 - 0.1Performed By: #### PROGES #### [facility] [address] [place] [address] Dr. Lucretia ZamudioFREE T4on 02-05-7904Jpxf T4 [Mass/Vol]1.13 ng/dLNormal0.76-1.46 [facility] HospitalComment on above:Performed By: #### FT4 #### [facility] [address] [place] [address] Dr. Lucretia ZamudioGLYCOHEMOGLOBIN A1Con 23-25-7989GAE RECOMMENDATIONSEE BELOWNormal [facility] HospitalComment on above:Result Comment: ADA RECOMMENDED LIMIT 4.0 - 6.0 ADA THERAPEUTIC TARGET < 7.0 ACTION SUGGESTED > 7.0Performed By: #### PROGES #### [facility] [address] [place] [address] Dr. Lucretia ZamudioGlucose [Mass/Vol]105 mg/dLNormalThHolzer HospitalComment on above:Performed By: #### PROGES #### [facility] [address] [place] [address] Dr. Lucretia ZamudioHbA1c (Bld) [Mass fraction]5.3 %Normal4.5-6.2The [facility] Hospitalment on above:Performed By: #### PROGES #### [facility] [address] [place] [address] Dr. Lucretia ZamudioTSHon 31-67-2493NWI9.971 uIU/mLNormal0.358-3.740The [facility] HospitalComment on above:Performed By: #### TSH #### [facility] [address] [place] [address] Dr. Lucretia ZamudioUS PELVIS AND TRANSVAGon 75-22-9237ER PELVIS AND TRANSVAG EXAMINATION: US PELVIS AND [...] authenticated by: GIA PRESCOTT Date: 2022-08-02 18:42NormalThe [facility] HospitalAMYLASEon 63-48-6262Bgjodoz [Catalytic activity/Vol]50 U/L Iarszo37-841Zbb [facility] on above:Performed By: #### PROGES #### [facility] [address] [place] [address] Dr. Lucretia ZamudioCBC AUTO DIFFon 89-83-0219ZYVA #0.1 103/ulNormal0.0-0.1The [facility] on above:Performed By: #### CBC #### [facility] [address] [address] [address] Lucretia ZamudioBasophils/100 WBC (Bld)0.9 %Normal0.2-2.0The [facility] Comment on above:Performed By: #### CBC #### [facility] [address] [place] [address] Dr. Lucretia Lynne #0.4 103/ulNormal0.0-0.7The [facility] HospitalComment on above: Performed By: #### CBC #### [facility] [address] [place] [address] Dr. Lucretia Huntosinophils/100 WBC (Bld)3.4 %Normal0.9-7.0The [facility] Comment on above:Performed By: #### CBC #### [facility] [address] [place] [address] Dr. Lucretia Huntrythrocyte distribution width (RBC) [Ratio]12.7 %Mpeimc32.0-15.0 The [facility] HospitalComment on above:Performed By: #### CBC #### [facility] [address] [place] [address] Dr. Lucretia ZamudioHematocrit (Bld) [Volume fraction]44.1 %Wszwak66.0-48.0The [facility] HospitalComment on above:Performed By: #### CBC #### [facility] [address] [place] [address] Dr. Lucretia ZamudioHemoglobin (Bld) [Mass/Vol]14.5 g/yXKcecbc81.0-16.0The [facility] HospitalComment on above:Performed By: #### CBC #### [facility] [address] [place] [address] Dr. Lucretia Gomez #0.03 10e3/ulNormal0.00-0.03The [facility] HospitalComment on above:Performed By: #### CBC #### [facility] [address] [place] [address] Dr. Lucretia Gomez %0.3 %Normal0.0-0.5The [facility] HospitalComment on above: Performed By: #### CBC #### [facility] [address] [address] [address] Lucretia Brush #2.9 103/ulNormal1.2-3.8The [facility] HospitalComment on above:Performed By: #### CBC #### [facility] [address] [address] [address] Lucretia Worthingtonmphocytes/100 WBC (Bld)24.9 %Gnqshd18.5-60.0The [facility] HospitalComment on above:Performed By: #### CBC #### [facility] [address] [place] [address] Dr. Lucretia Krishnan DIFF REQNONormalThe [facility] HospitalComment on above: Performed By: #### CBC #### [facility] [address] [place] [address] Dr. Lucretia Simmons (RBC) [Entitic mass]28.9 wvYehgeu43.7-34.0The [facility] HospitalComment on above:Performed By: #### CBC #### [facility] [address] [place] [address] Dr. Lucretia Simmons (RBC) [Mass/Vol]32.9 g/hEEqbnoh22.9-35.2The [facility] HospitalComment on above:Performed By: #### CBC #### [facility] [address] [place] [address] Dr. Lucretia Simmons (RBC) [Entitic vol]87.8 aKOupzfr58.0-99.0The [facility] HospitalComment on above:Performed By: #### CBC #### [facility] [address] [place] [address] Dr. Lucretia Lemus #0.6 103/ulNormal0.3-0.8The [facility] HospitalComment on above:Performed By: #### CBC #### [facility] [address] [place] [address] Dr. Lucretia Manzoocytes/100 WBC (Bld)5.4 %Normal1.7-12.0The [facility] Comment on above:Performed By: #### CBC #### [facility] [address] [address] [address] Lucretia Waterman #7.6 103/ulCritically high1.4-6.5The [facility] Comment on above:Performed By: #### CBC #### [facility] [address] [place] [address] Dr. Lucretia Wagnerutrophils/100 WBC (Bld)65.1 %Kwanpi57.0-75.0The [facility] HospitalComment on above:Performed By: #### CBC #### [facility] [address] [place] [address] Dr. Lucretia ZamudioPlatelet mean volume (Bld) [Entitic vol]10.0 fLNormal9.5-13.5The [facility] HospitalComment on above:Performed By: #### CBC #### [facility] [address] [place] [address] Dr. Lucretia ZamudioPLT277 103/gbWbfzho468-166Jqo [facility] HospitalComment on above: Performed By: #### CBC #### [facility] [address] [place] [address] Dr. Lucretia ZamudioRBC5.02 106/ulNormal4.20-5.40The [facility] HospitalComment on above:Performed By: #### CBC #### [facility] [address] [place] [address] Dr. Lucretia ZamudioWBC11.6 103/ulCritically high4.0-11.0The [facility] HospitalComment on above:Performed By: #### CBC #### [facility] [address] [place] [address] Dr. Lucretia ZamudioCULTZA URINEon 51-44-6299TFXVILN URINECulture Observations: LIGHT GROWTH OF MIXED GENITAL SILVIA. NO POTENTIAL PATHOGENS SEEN.NormalThe [facility] HospitalComment on above:Performed By: #### PROGES #### [facility] [address] [place] [address] Dr. Lucretia ZamudioLIPASEon 22-38-8456Uoociy [Catalytic activity/Vol]85.0 U/LNormal 73.0-393.0The [facility] HospitalComment on above:Performed By: #### PROGES #### [facility] [address] [place] [address] Dr. Lucretia Shoemaker QUANT HCGon 87-79-7848JAN QUANT1 mIU/mLNormalThe [facility] HospitalComment on above:Performed By: #### PROGES #### [facility] [address] [place] [address] Dr. Lucretia Leyva RANGESEE [facility] HospitalComment on above: Result Comment: 5-50 0.2-1 WEEK 50-500 1-2 WEEKS 100-5,000 2-3 WEEKS 500-10,000 3-4 WEEKS 1,000-50,000 4-5 WEEKS 10,000-100,000 5-6 WEEKS 15,000-200,000 6-8 WEEKS 10,000-100,000 2-3 MONTHSPerformed By: #### PROGES #### [facility] [address] [place] [address] Dr. Lucretia ZamudioPROF 14(COMP METB)on 50-24-4637Khbqckj [Mass/Vol]4.0 g/dLNormal 3.4-5.0The [facility] on above:Performed By: #### PROGES #### [facility] [address] [place] [address] Dr. Lucretia ZamudioAlbumin/Globulin [Mass ratio]1.1 {ratio}NormalThe [facility] on above:Performed By: #### PROGES #### [facility] [address] [place] [address] Dr. Lucretia Brunson [Catalytic activity/Vol]98 U/CGxubnc77-689Mpl [facility] HospitalComselect specialty hospital on above:Performed By: #### PROGES #### [facility] [address] [place] [address] Dr. Lucretia Mauro [Catalytic activity/Vol]16 U/VUvohkt76-31Wce [facility] on above:Performed By: #### PROGES #### [facility] [address] [place], [place] [address] Dr. Lucretia Whyte gap [Moles/Vol]9.7 mmol/LNormalThe [facility] HospitalComment on above:Performed By: #### PROGES #### [facility] [address] [address] [address] Lucretia ZamudioAST [Catalytic activity/Vol]15 U/AFpuhnl53-75Lps [facility] HospitalComment on above:Performed By: #### PROGES #### [facility] [address] [address] [address] Lucretia ZamudioBilirubin [Mass/Vol]0.2 mg/dLNormal0.2-1.0The [facility] Comment on above:Performed By: #### PROGES #### [facility] [address] [place] [address] Dr. Lucretia ZamudioCalcium [Mass/Vol]9.5 mg/dLNormal8.5-10.1The [facility] Comment on above:Performed By: #### PROGES #### [facility] [address] [place] [address] Dr. Lucretia ZamudioChloride [Moles/Vol]102 mmol/GHksktk87-840Nhv [facility] Comment on above:Performed By: #### PROGES #### [facility] [address] [place] [address] Dr. Lucretia ZamudioCO2 [Moles/Vol]31.5 mmol/RYiapbk07.0-32.0The [facility] Comment on above:Performed By: #### PROGES #### [facility] [address] [address] [address] Lucretia ZamudioCreatinine [Mass/Vol]0.79 mg/dLNormal0.55-1.02The [facility] HospitalComment on above:Performed By: #### PROGES #### [facility] [address] [address] [address] Lucretia Foster-AF COMORAN>60Normal>=60The [facility] HospitalComment on above:Performed By: #### PROGES #### [facility] [address] [place] [address] Dr. Lucretia HuntGFR-NON AF COMORAN>60Normal>=60The [facility] HospitalComment on above:Performed By: #### PROGES #### [facility] [address] [place] [address] Dr. Lucretia ZamudioGlobulin (S) [Mass/Vol]3.8 g/dLNormSalem Regional Medical CenterComment on above:Performed By: #### PROGES #### [facility] [address] [place] [address] Dr. Lucretia ZamudioGlucose [Mass/Vol]95 mg/eWJcgutc42-442Gff [facility] Comment on above:Performed By: #### PROGES #### [facility] [address] [place] [address] Dr. Lucretia ZamudioPotassium [Moles/Vol]4.2 mmol/LNormal3.5-5.1The [facility] Comment on above:Performed By: #### PROGES #### [facility] [address] [place] [address] Dr. Lucretia ZamudioProtein [Mass/Vol]7.8 g/dLNormal6.4-8.2The [facility] Comment on above:Performed By: #### PROGES #### [facility] [address] [place] [address] Dr. Lucretia ZamudioSodium [Moles/Vol]139 mmol/DWafpyz570-231JrjNorwalk Memorial Hospital Comment on above:Performed By: #### PROGES #### [facility] [address] [place] [address] Dr. Lucretia ZamudioUrea nitrogen [Mass/Vol]12.0 mg/dLNormal7.0-18.0The [facility] HospitalComment on above:Performed By: #### PROGES #### [facility] [address] [place] [address] Dr. Lucretia Gibbs nitrogen/Creatinine [Mass ratio]15.2 mg/mgNormSalem Regional Medical CenterComment on above:Performed By: #### PROGES #### [facility] [address] [place] [address] Dr. Lucretia Pollack RANDOMon 45-35-3393Uofrvzxer Ql (U)NegativeNormalNEGATIVENorwalk Memorial HospitalComment on above:Performed By: #### PROGES #### [facility] [address] [address] [address] Lucretia Salesarity (U)CLEARNormalCLEARNorwalk Memorial HospitalComment on above: Performed By: #### PROGES #### [facility] [address] [address] [address] Lucretia Cruz (U)LT. YELLOWNormalYELLOWNorwalk Memorial HospitalComment on above:Performed By: #### PROGES #### [facility] [address] [address] [address] Lucretia ZamudioGlucose Ql (U)NegativeNormalNEGATIVENorwalk Memorial HospitalComment on above:Performed By: #### PROGES #### [facility] [address] [place] [address] Dr. Lucretia ZamudioHemoglobin Ql (U)NegativeNormalNEGATIVEGeorgetown Behavioral Hospital on above:Performed By: #### PROGES #### [facility] [address] [place] [address] Dr. Lucretia ZamudioKetones Ql (U)NegativeNormalNEGATIVENorwalk Memorial HospitalComment on above:Performed By: #### PROGES #### [facility] [address] [place] [address] Dr. Lucretia ZamudioLEUKOCYTESNegativeNormalNEGATIVENorwalk Memorial HospitalComment on above:Performed By: #### PROGES #### [facility] [address] [address] [address] Lucretia ZamudioNitrite Ql (U)NegativeNormalNEGATIVENorwalk Memorial HospitalComment on above:Performed By: #### PROGES #### [facility] [address] [address] [address] Lucretia ZamudiopH (U)7.0 [pH]Normal5-9Norwalk Memorial HospitalComment on above: Performed By: #### PROGES #### [place] [facility] [address] [address] [address] Lucretia ZamudioSPEC GRAVITY1.861Tvsvlx4.005-<=1.025The [facility] HospitalComment on above:Performed By: #### PROGES #### [facility] [address] [address] [address] Lucretia Pollack PROTEINNegativeNormalNEGATIVE/ TRACEThe [facility] Comment on above:Performed By: #### PROGES #### [facility] [address] [address] [address] Lucretia Davidbilinogen Qn (U)0.2 {Tommie'U}/dLNormal0.2 - 1.0[facility] HospitalComment on above:Performed By: #### PROGES #### [facility] [address] [address] [address] Lucretia ZamudioPhysical Therapy Noteon 66-95-8558Hqaxcdyv Therapy Note [id number]#1.00[facility] Coding Summaryon 50-20-0905Yxomrb SummaryHTMLBase 64 QkyusuupZPq4bPd+PGhlYWQ+YK7OTIIbC93skOOrvN5OC6cJDC3FIWKUQROKXG3RLX3axSD9WIxhA3Co biAv [file] PSd (more content not included)...[facility] HospitalProvider Orderson 79-93-7403Dgpqvsob [id number]#1.00OTSt. Vincent HospitalConsent Formson 70-04-6620Dwgchiy Forms [id number]#1.00[facility] Physical Therapy Noteon 61-94-0484Hjplfxap Therapy Note [id number]#1.00[facility] Provider Orderson 21-45-5376Uhdekzzs Orders [id number]#1.00[facility] Coding Summaryon 70-40-9758Evltrm SummaryHTMLBase 64 NudcnrbmDDm4qHo+PGhlYWQ+CW3VMHOoY35qlGQixT9KT7xRUE7ZKLADSEXJJJ4LTF9hjZQ2MVflS5Sz biAv [file] PSd (more content not included)...[facility] HospitalRad - MRI Reporton 98-33-7469Vjz - MRI [id number]#1.00OTGTIFF [facility] Vital Signs Date TimeVital SignValuePerforming AdbnunmiqTllsdpzw58-49-6368 13:19-0400Body mass index (BMI) [Ratio]34.36 kg/k7Dbrtc Angel DO Work Phone: 1([phone] [place], [place] [address]Lqbdjazsst47-17-9626 13:19-0400Body .51 kgCorey Angel DO Work Phone: [phone] [place], [place] [address]Sliwytibnw97-05-5355 13:19-0400Diastolic blood jadytmwo63 mm[Hg]Junito Angel DO Work Phone: [phone] [place], [place] [address]Vqirhbpsai49-83-5284 13:19-0400Systolic blood yxcmamnx203 mm[Hg]Junito Angel DO Work Phone: [phone] [place], [place] [address]Hukgedxgcg57-67-3515 14:29-0400Body mass index (BMI) [Ratio]33.15 kg/r8Bjurt Angel DO Work Phone: [phone] [place], [place] [address]Zsdujltldw15-78-3365 14:29-0400Body rmfcyk27.88 kgCorey Angel DO Work Phone: [phone] access hospital9[facility] HealthcareNhridcqqtd49-81-9729 14:29-0400Diastolic blood rmgazjah83 mm[Hg]Junito Angel DO Work Phone: [phone] [place], [place] [address]Otgyoumnkp22-04-0785 14:29-0400Systolic blood cdvttcaq244 mm[Hg]Junito Angel DO Work Phone: [phone]-Critical access hospital2[facility] HealthcareVsfxlkukjh68-35-1256 10:06-0400Body mass index (BMI) [Ratio]31.75 kg/g9KnwsqprrInna Kirkland CTC OPERATOR Work Phone: [phone] [place], [place] [address]Qpiennpghh08-05-1589 10:06-0400Body imvybb73.71 kgInna Kirkladn CTC OPERATOR Work Phone: [phone] [place], [place] [address]Rhlukxjoel62-41-8146 10:06-0400Diastolic blood lnjabqjz36 mm[Hg]Inna Kirkland CTC OPERATOR Work Phone: [phone] [place], [place] [address]Cvfoncolju12-04-7733 10:06-0400Systolic blood zuagkraq223 mm[Hg]Inna Kirkland CTC OPERATOR Work Phone: 1([phone] [place], [place] [address]Bglozqtzdc74-28-6432 14:59-0400Body mass index (BMI) [Ratio]30.99 kg/u5Hjxux Angel DO Work Phone: 1(952)[facility] [place], [place] [address]Mjjqmbadms55-41-9585 14:59-0400Body djyddp24.44 kgCorey Angel DO Work Phone: 1(408)[facility] [place], [place] [address]Yqaohqprdc76-39-5527 14:59-0400Diastolic blood rauzmjsx82 mm[Hg]Junito Angel DO Work Phone: 1(335)[facility] [place], [place] [address]Khcssidlbt80-22-2066 14:59-0400Systolic blood gjyielro824 mm[Hg]Junito Angel DO Work Phone: [phone])[address] [place], [place] 9739206-25-2025 13:39-0400Body mass index (BMI) [Ratio]29.73 kg/r1Fnzbb Angel DO Work Phone: 1(544)[address] [place], [place] 9739206-25-2025 13:39-0400Body .68 kgCorey Angel DO Work Phone: 1(223)[facility] [place], [place] [address]Jhgrokcunp82-12-6895 13:39-0400Diastolic blood zixzphwg31 mm[Hg]Junito Angel DO Work Phone: 1(928)[facility] [place], [place] [address]Unzlnxgbif98-40-2496 13:39-0400Systolic blood wafkchxl818 mm[Hg]Junito Angel DO Work Phone: 1(099)[address] [place], [place] 9739207-02-2024 12:30-0400Body iaakgp700.45 cmAPRYamilka Crocketterwhit Work Phone: [phone])[address] [place], [place] 0405107-02-2024 12:30-0400 Body mass index (BMI) [Ratio]31.6 kg/m2YANELI Crocketterwhit Work Phone: 1(328)[address] [place], [place] 0405107-02-2024 12:30-0400 Body wyhvrafcvxg66.8 [degF]YANELI Crocketterwhit Work Phone: 1(330)[address] [place], [place] 0405107-02-2024 12:30-0400 Body .98 kgYANELI Ding Work Phone: 1(430)[address] [place], [place] 0405107-02-2024 12:30-0400 Diastolic blood mm[Hg]YANELI Crocketterwhit Work Phone: 1(923)[address] [place], [place] 0405107-02-2024 12:30-0400 Heart rate69 /minYANELI Crocketterwhit Work Phone: 1(336)[address] [place], [place] 0405107-02-2024 12:30-0400 Respiratory rate20 /minYANELI Crocketterwhit Work Phone: 1(518)[address] [place], [place] 0405107-02-2024 12:30-0400 SaO2% (BldA) [Mass fraction]99 %YANELI Crocketterwhit Work Phone: 1(333)[address] [place], [place] 0405107-02-2024 12:30-0400 Systolic blood lvuygtag197 mm[Hg]YANELI Crocketterwhit Work Phone: 1(091)[address] [place], [place] 0405106-05-2024 08:58-0400 Body vypucp780.45 [facility] 08:58-0400Body mass index (BMI) [Ratio]31.6 kg/c7TeupnsthpAkron Children'S Hospital06-05-2024 08:58-0400Body vgphyd61.98 kgAk[facility]03-27-2024 11:00-0400Body jfheoa127.45 cmAk[facility]03-27-2024 11:00-0400Body mass index (BMI) [Ratio]31.6 kg/w1DucnwaqweAkron Children'S Hospital03-27-2024 11:00-0400Body dmcanjtouwc28 [degF][facility]03-27-2024 11:00-0400Body .98 kg[facility] 09-19-2023 11:00-0400Diastolic blood dnvmwbit98 mm[Hg][facility]03-27-2024 11:00-0400Heart rate80 /[facility] 09-19-2023 11:00-0400Respiratory rate20 /[facility] 09-19-2023 11:00-1425VtJ6% (BldA) [Mass fraction]98 %[facility]03-27-2024 11:00-0400Systolic blood fitzzfee763 mm[Hg][facility]03-13-2024 09:42-0400Body .7 Serg DUONGC Work Phone: [facility] Lekyxv37-75-6979 09:42-0400Body mass index (BMI) [Ratio]30.79 kg/h2UzccuzuTy CRISTINA-C Work Phone: [facility] Hbkhrl57-02-6260 09:42-0400Body yftgni64.85 kgTy CRISTINA-C Work Phone: [facility] Opbwan97-03-6269 09:42-0400Diastolic blood aekliylr26 mm[Hg]Ty CRISTINA-C Work Phone: [facility] Oiflee25-81-1731 09:42-0400Heart rate 73 /minTy CRISTINA-C Work Phone: [facility] Lapfhj20-20-1378 09:42-0400Systolic blood sittulsd143 mm[Hg]Ty CRISTINA-C Work Phone: [facility] Uwtceh84-33-0059 17:00-0500Body .45 cmDana Easterwood Other [employer] Other 12-06-2023 08:00-0500Body rquqfm712.45 cmDana Easterwood Other [employer] Other 12-06-2023 08:00-0500Body mass index (BMI) [Ratio] 33.48 kg/m2Dana Bonerdiana Other [employer] Other 12-06-2023 08:00-0500Body hjmbruvzesa37.2 [degF]Nelida Bonerwood Other [employer] Other 12-06-2023 08:00-0500Body ivfhgu65.43 kgDana Bonwhit Other [employer] Other 12-06-2023 08:00-0500Diastolic blood mm[Hg] Nelida Easterwood Other [employer] Other 12-06-2023 08:00-0500Respiratory rate20 /minDana Easterwood Other [employer] Other 12-06-2023 08:00-2593OyU5% (BldA) [Mass fraction]99 % Nelida Easterwood Other [employer] Other 12-06-2023 08:00-0500Systolic blood xbhfekte163 mm[Hg] Nelida Easterwood Other [employer] Other 09-11-2023 10:30-0400Body .45 cmDana Bonerwhit Other [employer] Other 09-11-2023 10:30-0400Body mass index (BMI) [Ratio] 33.33 kg/m2Dana Easterwood Other [employer] Other 09-11-2023 10:30-0400Body eephkxvmzoq21 [degF]Nelida Easterwood Other [employer] Other 09-11-2023 10:30-0400Body .98 kgDana Easterwood Other [employer] Other 09-11-2023 10:30-0400Diastolic blood tmwerbzl37 mm[Hg] Nelida Easterwood Other [employer] Other 09-11-2023 10:30-0400Respiratory rate20 /minDana Bonowatonna clinic Other [employer] Other 09-11-2023 10:30-1116BrF6% (BldA) [Mass fraction]99 % Nelida Easterwood Other [employer] Other 09-11-2023 10:30-0400Systolic blood rjovmdhw050 mm[Hg] Nelida Easterwood Other [employer] Other 08-30-2023 11:00-0400Body cteznj250.45 cmDana Easterwood Other [employer] Other 08-30-2023 11:00-0400Body mass index (BMI) [Ratio] 33.48 kg/m2Dana Easterwood Other [employer] Other 08-30-2023 11:00-0400Body gxereqkdizj03.9 [degF]Nelida Ding Other [employer] Other 08-30-2023 11:00-0400Body .43 kgDamanisha Ding Other [employer] Other 08-30-2023 11:00-0400Diastolic blood vejordis51 mm[Hg] Nelida Ding Other [employer] Other 08-30-2023 11:00-0400Respiratory rate20 /minDjeromy Ding Other [employer] Other 08-30-2023 11:00-5138VjK1% (BldA) [Mass fraction]98 % Nelida Ding Other [employer] Other 08-30-2023 11:00-0400Systolic blood bxryscpb391 mm[Hg] Nelida Dign Other [employer] Other Encounters Encounter DateEncounter TypeCare ProviderFacilityStart: 56-61-7732onkmrsgcta Inna EbivanlyFacility:[facility] Administrationtart: 04-29-2025 End: 83-36-9054Bjadvsti flow sheetCorey Angel DO Work Phone: [facility] [place] OBGYNComment on above:Third trimester ([facility]); 30 weeks gestation of ([facility])Start: 04-29-2025 End: 35-16-8752naqtcxsefyWTKOY FAZIONot AvailableStart: 04-22-2025 End: 62-40-4776Bmefeajdc Result EncounterCorey Angel DO Work Phone: NOJH External Department UnsolicitedStart: 04-22-2025 End: 86-36-8295Fmmwjfzfw Result EncounterCorey Angel DO Work Phone: noms External Department UnsolicitedStart: 04-15-2025 End: 15-00-5307Jxzcze flowsheetCorey Angel DO Work Phone: NOQO [place] OBGYNStart: 04-15-2025 End: 59-44-0321Mpbyuv flowsheetCorey Angel DO Work Phone: NOLW [facility] OBGYNStart: 04-15-2025 End: 78-59-9486Hmxpkgzs flow sheetCorey Angel DO Work Phone: NOLR [place] OBGYNComment on above:Third trimester ([facility]); 28 weeks gestation of ([facility]); size inconsistent with dates ([facility]); Racing heart beatStart: 04-15-2025 End: 05-13-1398yllpgsenetYNIPL FAZIONot AvailableStart: 04-01-2025 End: 19-29-4930Odnmokure Result EncounterInna Kirkland NP Work Phone: NOQY External Department UnsolicitedStart: 04-01-2025 End: 60-26-3813Ppwzweurc Result EncounterInna Kirkland NP Work Phone: noms External Department UnsolicitedStart: 03-18-2025 End: 96-33-7412Rzbscfus flow sheetCorey Angel DO Work Phone: NOMS [facility] OBGYNComment on above:Second trimester ([facility]); 24 weeks gestation of ([facility]); Diabetes mellitus screeningStart: 03-18-2025 End: 72-66-3012zjyevufpspRMLAS FAZIONot AvailableStart: 02-18-2025 End: 98-32-3258Cwlssxxc flow sheetInna Kirkland NP Work Phone: NOM[facility] OBGYNComment on above:Nausea and vomiting in ([facility]) (Primary Dx); Second trimester ([facility]); 20 weeks gestation of ([facility]); Elevated heart rate with elevated blood pressure without diagnosis of hypertensionStart: 02-18-2025 End: 34-53-3984xvqwxasxpkZBEMSGXJ EBERLYNot AvailableStart: 02-18-2025 End: 66-06-8687bagjeppnhbZJEQF FAZIONot AvailableStart: 01-14-2025 End: 71-73-2779Ueddlde encounter procedureCorey Angel DO Work Phone: noms HealthcareStart: 01-14-2025 End: 95-29-0999Vvxilwbo preventive med est patient 18-39 yrsCorey Angel DO Work Phone: [facility]oms [facility] OBComment on above:15 weeks gestation of ([facility]); Second trimester ([facility]); Gastroesophageal reflux disease with esophagitis, unspecified whether hemorrhage; Screening, , for anatomic survey ([facility]); Exposure to STD; Vaginal discharge; Well woman exam with routine gynecological exam; Nausea and vomiting in ([facility]); related fatigue in second trimester ([facility]); Insomnia, unspecified type; Other migraine with status migrainosus, not intractableStart: 01-14-2025 End: 52-00-6899vjkyksymxoJIEMC FAZIONot AvailableStart: 01-14-2025 End: 73-25-9139Jacgsf flowsheetCorey Angel DO Work Phone: noms BCP OBStart: 01-14-2025 End: 06-44-4465Ihsjro flowsheetCorey Angel DO Work Phone: noms BCP OBStart: 01-14-2025 End: 85-71-0979Ieltsqwmo Result EncounterCorey Angel DO Work Phone: noms External Department UnsolicitedStart: 01-14-2025 End: 16-32-1305Tfduvznj Result EncounterCorey Angel DO Work Phone: noms External Department UnsolicitedStart: 12-17-2024 End: 39-11-0085Sawsmd flowsheetCorey Angel DO Work Phone: NOMS BCP OBStart: 12-17-2024 End: 13-46-9997Ovdyub flowsheetCorey Angel DO Work Phone: NOM[facility] BCP OBStart: 12-17-2024 End: 81-30-3662Pjnkukje flow sheetCorey Angel DO Work Phone: noMS BCP OBComment on above:11 weeks gestation of ([facility]); First trimester ([facility]); Nausea and vomiting in ([facility]); Gastroesophageal reflux disease with esophagitis, unspecified whether hemorrhage; Meconium aspiration in child of prior , currently , unspecified trimester ([facility])Start: 12-17-2024 End: 76-85-5583kljhmptxyfENUNY FAZIONot AvailableStart: 12-10-2024 End: 14-56-5911Rpdcobyxc Result EncounterCorey Angel DO Work Phone: noms External Department UnsolicitedStart: 12-10-2024 End: 85-86-0044Tlfzmstto Result EncounterCorey Angel DO Work Phone: noMS External Department UnsolicitedStart: 12-05-2024 End: 05-85-1736Imnbyl outpatient visit 5 minutesNoms Bcp Ob Angel NurseNOMS BCP OBComment on above:GA: 2p4bGdapl: 12-05-2024 End: 41-66-2976rvcfwvcqcrGQDIY FAZIONot AvailableStart: 07-03-2024 End: 04-50-9348PbpoodHagvclxYamilex Stratton PA-C Work Phone: [facility] NeurologyComment on above: Migraine without aura and without status migrainosus, not intractableStart: 12-25-2023 End: 69-10-0044ecwjxphrzmUKGU [facility] Work Phone: [facility] Work Phone: Start: 12-25-2023 End: 03-83-8675Hikvzsv encounter procedureAPRYamilka [facility]ettowatonna [facility] Work Phone: [facility] Work Phone: Start: 40-78-4002Fcq-patient / Non-visitYANELI [facility] Work Phone: [facility] Work Phone: Start: 12-05-2023 End: 64-99-9609zkaosyhrfdIIQB Dana J [facility] Work Phone: [facility] Work Phone: Start: 12-05-2023 End: 46-52-3155Lxgmyvjj ReferredYANELI Mendoza [facility] Work Phone: [facility]-LAB Path Spec [facility] HospStart: 11-28-2023 End: 83-18-1147xbxejudchqMogzbbptlTuscarawas Hospital Work Phone: Start: 11-28-2023 End: 70-78-9286Umijkab encounter procedureD[facility] Work Phone: Start: 09-19-2023 End: 09-66-5563hfthlgdntbBxtcxilatTuscarawas Hospital Work Phone: Start: 09-19-2023 End: 42-59-1989Uofyipi encounter procedureDuke University Hospital Physician GroupK[facility] Work Phone: Start: 09-05-2023 End: 46-83-7789venzkqzygoXUWEFRY C HAMILTONPremier Health Upper [facility] Centergay [facility] Hospitaltart: 09-05-2023 End: 57-31-8248Pjenjf outpatient visit 25 minutesAnthaleksey Stratton PA-C Work Phone: [facility] Physicians NeurologyComment on above: Migraine without aura and without status migrainosus, not intractable (Primary Dx); Vestibular migraine; Pineal gland cyst; Hx of concussion; Daytime somnolenceStart: 01-02-9502Qdu-patient / Non-visitFirtonia [facility]ician [facility] Work Phone: Start: 07-16-2023 End: 86-16-5865flrurwneivJwkm [facility] Other [employer] Other Start: 46-55-7184Ydtykmdrc encounterDana [facility] Family [facility] Centeromment on above:WEENING OFF QULIPTAStart: 07-09-2023 Patient encounter procedureBelle Physician Group-Start: 06-06-2023 End: 35-93-6774tinlgjdimaBonw [facility] Other [employer] Other Start: 04-58-2563UC ONLINE E/M JOHAN DICKINSON 05-14D[facility]tart: 53-88-1525Qjboumvgj encounterDana [facility] Hospitaltart: 05-30-2023 End: 18-26-1137jruvluzzmkFqlu [facility] Other [employer] Other Start: 98-15-6760Crcqfd outpatient visit 25 minutes [facility]ida [facility] Hospital[facility]: 05-25-2023 End: 90-95-3942qarbgsqwilRbxv [facility] Other [employer] Other Start: 99-93-7791Cgfdqhsto encounterDana [facility] Hospitaltart: 05-03-2023 End: 52-21-3779qjwhgyvwtuHewo [facility] Other [employer] Other Start: 71-69-4769Dyymaxzzd encounterDana [facility] Hospitaltart: 03-05-2023 End: 70-74-9829cosxvmdywrIjdi [facility] Other [facility] Other Start: 12-31-2046Udewtr outpatient visit 25 minutes Nelida [facility] HospitalkStart: 02-21-2023 End: 49-86-0359wqasdspfwnMsui [facility] Other [facility] Other Start: 64-81-0932Tomwhl outpatient visit 40 minutes Nelida [facility] HospitalkStart: 43-32-9827Zqpgabytc encounter Nelida [facility] Hospitaltart: 11-01-2022 End: 25-95-9622iqqgdsjawtZJ JUNITO ANGEL .Facility:P9Tnofu: 09-06-2022 End: 43-42-9423kvzposlsihVH JUNITO ANGEL .Facility:N8Mbmzu: 08-26-2022 End: 39-88-4552wyxghhwnhoRK JUNITO ANGEL .Facility:Z8Qwnoh: 08-02-2022 End: 58-74-3302xqmmzbccuhML JUNITO ANGEL .Facility:O1Vjukk: 07-12-2022 End: 10-15-4440vdhygnzevzTS GIA Yocility:H1 Procedures DateProcedureProcedure DetailPerforming ClinicianStart: 58-46-7826Wajnk dip stick/tablet rgnt non-auto w/o micrscpCorey Angel DO Work Phone: Start: 76-98-7669DC ECHO DOPPLER COMPLETECorey Angel DO Work Phone: Start: 37-20-9695LYA 12-LEADCorey Angel DO Work Phone: Start: 18-39-0938Qegnv dip stick/tablet rgnt non-auto w/o micrscpCorey Angel DO Work Phone: Start: 90-16-2238XSUMYCI 1 HOURInna Kirkland CTC OPERATOR Work Phone: Start: 73-09-1802Jfadc dip stick/tablet rgnt non-auto w/o micrscpInna Kirkland CTC OPERATOR Work Phone: Start: 59-57-7361Yizzp dip stick/tablet rgnt non-auto w/o micrscpInna Kirkland CTC OPERATOR Work Phone: Start: 48-92-4784IKXYCMQQC VAGINITIS (HTRX)Junito Angel DO Work Phone: Start: 88-47-5543Gtoki dip stick/tablet rgnt non-auto w/o micrscpCorey Angel DO Work Phone: Start: 19-15-5042TNN,APTIMA HPV,AGE GDLNCorey Angel DO Work Phone: Start: 00-04-7508Rcskp dip stick/tablet rgnt non-auto w/o micrscpCorey Angel DO Work Phone: Start: 19-73-3927ZHE CBC WITH AUTO DIFFCorey Angel DO Work Phone: Start: 12-05-2024 End: 57-98-5981Astow dip stick/tablet rgnt non-auto w/o micrscpCorey Angel DO Work Phone: Start: 28-75-2840Iejouo-up visitFollow-Janeth STRATTONStart: 96-32-4390Labro depression screening assessmentElmore Community Hospital Shaheen Plan of Treatment DateCare ActivityDetailAuthorStart: 05-13-2025 End: 75-39-8155Hnshhbu encounter tigwiqanl66/19/2025 1:20 PM EST Routine NATALIE KEARNS [address] [place], [id number] Nicole Ghosh PA [address] [place] [address] [facility] OBGYNStart: 04-29-2025 End: 40-87-3012Qfxdxaw encounter mvswofzru05/05/2025 1:30 PM EST Routine [facility] [place] [facility] [address], [id number] Junito Ortiz, DO [address] [place] [address] [facility] OBGYNStart: 04-29-2025 End: 06-73-5787Ekzbmmxqqkza / ancillary services jfhkgudxfk72/05/2025 1:00 PM EST Ancillary Procedure [facility] [address] [place] [id number] [facility] OBGYNStart: 04-15-2025 End: 49-91-6360Pnnxkngnqjvqev 2D completeEchocardiogram 2D complete Echocardiography Routine Racing heart beat Expected: 04/15/2025 (Approximate), Expires: 04/15/2027[facility] Work Phone: comment on above:Expected: 04/15/2025 (Approximate), Expires: 04/15/2027Start: 04-15-2025 End: 68-49-8100SV for pregnancyUS OB follow up transabdominal approach Imaging Routine size inconsistent with dates ([facility]) Expected: 04/15/2025, Expires: 08/16/2025[facility] HealthcareComment on above:Expected: 04/15/2025, Expires: 08/16/2025Start: 04-15-2025 End: 43-65-8020Nnblkiy encounter procedureNOMS [place]uck[place]ge[place] OBGYNComment on above: ArrivedStart: 03-18-2025 End: 59-79-1029Grafyyz encounter ixqouhbke91/24/2025 2:20 PM EDT Routine [facility] [address], [id number] Junito Ortiz, DO [address] [place] [address] NATALIE [place] OBGYNStart: 03-18-2025 End: 81-99-2414CLC panel - Blood by Automated countCBC Lab Routine Diabetes mellitus screening Expected: 03/18/2025 (Approximate), Expires: 03/18/2026[facility] Work Phone: comment on above:Expected: 03/18/2025 (Approximate), Expires: 03/18/2026Start: 03-18-2025 End: 73-46-0446Skadbavkspt of glucose 1 hour after glucose challenge for glucose tolerance testGlucose tolerance, 1 hour Lab Routine Diabetes mellitus screening Expected: 03/18/2025 (Approximate), Expires: 03/18/2026[facility] HealthcareComment on above:Expected: 03/18/2025 (Approximate), Expires: 03/18/2026Start: 09-53-5407NEAPO-19 Vaccine ( season)COVID-19 Vaccine ()[facility] HealthcareStart: 56-19-5764Rkkwccosn vaccinationCitizens Memorial Healthcare Start: 02-18-2025 End: lead ECGECG 12 lead unit performed ECG Routine Elevated heart rate with elevated blood pressure without diagnosis of hypertension Expected: 02/18/2025 (Approximate), Expires: 02/18/2026[facility] Healthcare Work Phone: comment on above:Expected: 02/18/2025 (Approximate), Expires: 02/18/2026Start: 02-18-2025 End: 34-72-2856Dhwogdq encounter procedureNOMS [facility] OBStart: 02-18-2025 End: 26-15-8445Sqqhxxxhcyjq / ancillary services managementNOMS BCP OBStart: 01-14-2025 End: 30-39-9495Jkcoyyv encounter oiwzchggw01/23/2025 2:40 PM EDT Routine [facility] [address] [place] [id number] Junito Ortiz, DO [address] [place], [place] [id number] NOMS BCP OBStart: 01-14-2025 End: 51-09-8195Crnxm fetoprotein, maternalAlpha fetoprotein, maternal Lab Routine Second trimester ([facility]) Expected: 01/14/2025 (Approximate), Expires: 03/17/2025[facility] HealthcareComment on above:Expected: 01/14/2025 (Approximate), Expires: 03/17/2025Start: 01-14-2025 End: 83-61-7998XE for pregnancyUS OB 14+ weeks anatomy scan Imaging Routine Screening, , for anatomic survey ([facility]) Expected: 01/14/2025, Expires: 04/16/2025[facility] HealthcareComment on above:Expected: 01/14/2025, Expires: 04/16/2025Start: 12-17-2024 End: 27-72-6981Olyfzpv encounter procedureNOOLYMPIA [facility] OBComment on above:Arrived Start: 12-05-2024 End: 34-87-7540DGR/RhABO/Rh Lab Routine Missed menses , unspecified gestational age ([facility]) Expected: 12/05/2024 (Approximate), Expires: 12/05/2025[facility] HealthcareComment on above:Expected: 12/05/2024 (Approximate), Expires: 12/05/2025Start: 12-05-2024 End: 01-14-5948Pasev type and Indirect antibody screen panel - BloodType and screen Lab Routine Missed menses , unspecified gestational age ([facility]) Expected: 12/05/2024 (Approximate), Expires: 12/05/2025[facility] Healthcare Work Phone: comment on above:Expected: 12/05/2024 (Approximate), Expires: 12/05/2025Start: 12-05-2024 End: 79-85-6584Fcwbc of abuse panel - Urine by Screen methodRapid drug screen, urine Lab Routine , unspecified gestational age ([facility]) Encounter for supervision of normal first in first trimester ([facility]) Expected: 12/05/2024 (Approximate), Expires: 12/05/2025[facility] HealthcareComment on above: Expected: 12/05/2024 (Approximate), Expires: 12/05/2025Start: 12-05-2024 End: 22-43-1171Fhfmaxbipjl [Mass/volume] in Serum or PlasmaTransferrin Lab Routine Dizzy Lightheaded Expected: 12/05/2024 (Approximate), Expires: 12/05/2025[facility] HealthcareComment on above:Expected: 12/05/2024 (Approximate), Expires: 12/05/2025Start: 40-93-9970Owskp BMI ScreeningAdult BMI Screening [facility]: 35-63-1442Krricgs ScreeningTobacco Screening [facility]: 86-88-8651Kkmna BMI ScreeningAdult BMI Screening [facility]: 70-55-7439Rdfccpqmad ScreeningDepression Screening [facility] SystemStart: 56-42-8756Hdyzcpq ScreeningTobacco Screening [facility]: 63-00-8508Khsqphkjd vaccinationInfluenza Vaccine [facility] Hospitalt[facility]: 12-12-2023 End: 48-32-8375Tbcimug encounter maraicaya74/19/2024 9:00 AM EDT Office Visit [facility] [address] [facility] [place] [address] Ty Stratton, ABEBE [address] [place] [address] [facility] Start: 12-06-2023 End: 13-79-4695XR Brain WO contrastMR brain without contrast Imaging Routine Migraine without aura and without status migrainosus, notintractable Vestibular migraine Pineal gland cyst Expected: 12/06/2023 (Approximate), Expires: 09/04[facility] Work Phone: Comment on above:Expected: 12/06/2023 (Approximate), Expires: 09/04/2024Start: 10-31-2023 End: 57-10-8593Gveeotj encounter ryjooazsl89/08/2024 8:45 AM EDT Office Visit [facility] [address] [place] [address] Jani Mir MD [address] [place] [address] [facility]ocr[facility]ologyStart: 10-24-2023 End: 13-34-5816Ugwatbf encounter ydtuhlxqo49/01/2024 10:00 AM EDT Office Visit [facility] [address] [phone] Megan Lopez APRN-PROGRAM MANUFACTURING LEADER [address] [facility] [address] [place] [address] [facility]/Sleep MedicineStart: 09-05-2023 End: 83-57-0563Kbwogyd encounter eqsypjqfk41/13/2024 9:30 AM EDT Office Visit [facility] [address] [place] [phone] Ty Stratton PA-C [address] [place] [address] [facility] Start: 08-01-2023 End: 60-91-6754Rjdzhms encounter jfyagvlll29/07/2024 10:30 AM EST Office Visit [facility] [address] [place] [address] Jani Mir MD [address] [place] [address] [facility]ocrinologyStart: 30-53-4704Kqhtrspbn vaccinationInfluenza Vaccine [facility] SystemStart: 23-45-9713GTY Vaccines (1 - 3-dose SCDM series)HPV Vaccines (1 - 3-dose SCDM series)[facility] HealthcareStart: 92-19-1264Nxijrwluf for malignant neoplasm of cervixPap SmearMemorial Health System [facility] SystemStart: 12-19-2014 DTaP,Tdap and Td Vaccines (1 - Tdap)DTaP,Tdap and Td Vaccines (1 - Tdap) [facility] SystemStart: 85-00-7293Zbsvmecqv B Vaccines (1 of 3 - 19+ 3- dose series)Hepatitis B Vaccines (1 of 3 - 19+ 3-dose series)[facility] Start: 29-67-4849Urlte BMI Follow Up PlanAdult BMI Follow Up PlanMemorial Health System [facility] SystemStart: 62-51-4557Baauryw of varicella vaccinationVaricella Vaccines (1 of 2 - 13+ 2-dose series)[facility] HealthcareStart: 99-30-4547FWjQ/Tdap/Td Vaccines (1 - Tdap)DTaP/Tdap/Td Vaccines (1 - Tdap)[facility] HealthcareStart: 65-77-7816AFP Vaccines (1 of 1 - Standard series)MMR Vaccines (1 of 1 - Standard series)[facility] HealthcareBacteria identified in Urine by CultureUrine culture Microbiology Routine Missed menses Ordered: 12/05/2024[facility] HealthcareComment on above:Ordered: 12/05/2024BC W Auto Differential panel - BloodCBC and differential Lab Routine Missed menses , unspecified gestational age ([facility]) Ordered: 12/05/2024[facility] HealthcareComment on above:Ordered: 12/05/2024 CHLAMYDIA TRACHOMATIS (GENITO/STI)CHLAMYDIA TRACHOMATIS (GENITO/STI) Lab Routine Exposure to STD Ordered: 01/14/2025[facility] HealthcareComment on above:Ordered: 01/14/2025ytology Cervical or vaginal smear or scraping studyPap Smear Pathology and Cytology Routine Well woman exam with routine gynecological exam Ordered: 01/14/2025[facility] HealthcareComment on above:Ordered: 01/14/2025Ferritin [Mass/volume] in Serum or PlasmaFerritin Lab Routine Dizzy Lightheaded Ordered: 12/05/2024[facility] HealthcareComment on above:Ordered: 12/05/2024Hemoglobin A1c/Hemoglobin.total in BloodHemoglobin A1c Lab Routine Missed menses , unspecified gestational age ([facility]) Ordered: 12/05/2024[facility] HealthcareComment on above:Ordered: 12/05/2024Hepatitis B virus surface Ag [Presence] in Serum or Plasma by ImmunoassayHepatitis B surface antigen Lab Routine Missed menses , unspecified gestational age ([facility]) Ordered: 12/05/2024[facility] HealthcareComment on above:Ordered: 12/05/2024Hepatitis C virus Ab [Presence] in Serum or Plasma by ImmunoassayHepatitis C antibody Lab Routine Missed menses , unspecified gestational age ([facility]) Ordered: 12/05/2024[facility] HealthcareComment on above:Ordered: 12/05/2024HIV-1/HIV-2 antigen/antibody combination immunoassayHIV-1 and HIV-2 antibodies Lab Routine Missed menses , unspecified gestational age ([facility]) Ordered: 12/05/2024[facility] HealthcareComment on above:Ordered: 12/05/2024Neisseria gonorrhoeae DNA [Presence] in Unspecified specimen by HANNAH with probe detectionNeisseria gonorrhea DNA probe, direct Lab Routine Exposure to STD Ordered: 01/14/2025[facility] HealthcareComment on above:Ordered: 01/14/2025Reagin Ab [Presence] in Serum by RPRRPR Lab Routine Missed menses , unspecified gestational age ([facility]) Ordered: 12/05/2024[facility] HealthcareComment on above:Ordered: 12/05/2024 Rubella antibody, IgGRubella antibody, IgG Lab Routine Missed menses , unspecified gestational age ([facility]) Ordered: 12/05/2024[facility] HealthcareComment on above:Ordered: 12/05/2024SURESWAB(R) ADVANCED VAGINITIS PLUS, TMASURESWAB(R) ADVANCED VAGINITIS PLUS, TMA Pathology and Cytology Routine Vaginal discharge Ordered: 01/14/2025[facility] Healthcare Work Phone: comment on above:Ordered: 01/14/2025 Immunizations Immunization DateImmunizationNotesCare ZzundjkcKcggpmiw87-86-5486dshclmo and diphtheria toxoids, adsorbed, preservative free, for adult use (5 Lf of tetanus toxoid and 2 Lf of diphtheria toxoid)[facility]08-13-2020 tetanus toxoid, reduced diphtheria toxoid, and acellular pertussis vaccine, jigneshDamanisha Ding Other [facility] Other Payers DatePayer CategoryPayerPolicy [id number] Health [id number] Care Other (unspecified)[facility] ..[id number]8Fziwlzp Health Insurance [id number] Health Insurance [id number] 1.901459.3.57[id number] ..1.461664.3.57[id number] ..1.334708.3.57[id number] 2..1.833953.3.57[id number] 2..1.646073.3.57[id number] 2.16.840.1.829813.3.57[id number] 2.16.840.1.243842.3.57[id number] 2.16.840.1.141684.3.57[id number] 2.16.840.1.281133.3.57[id number] 2.16.840.1.591090.3.57[id number] 2.16.840.1.380138.3.57[id number] 2..840.1.091995.3.57[id number] 2.16.840.1.576485.3.57[id number] 2.16.840.1.134367.3.57[id number] 2.16.840.1.794403.3.57[id number] 2.840.1.060291.3.57[id number] 2.840.1.208039.3.579.2.264519-17-4205Hatkgrf Health [id number] Private Health InsuranceMercy Health St. Vincent Medical [id number] 2.840.1.257526.3.579.2.531 Social History DateTypeDetailFacilityStart: 12-19-2019 End: 14-84-9607Lml Assigned At [facility] [employer] Other Start: 09-03-2023 End: 08-08-3231Qzzshkl smoking status NHISNever smoked tobacco (finding) [facility]art: 85-98-9323Zib Assigned At [facility] HospitalFeMetroHealth [facility] Centertart: 03-21-2023 End: 53-87-3534Srvwosb use and exposureSmokeless tobacco non-userMemorial Health System [facility] SystemStart: 09-05-2023 End: 63-20-7514Zysldkyub beverage intakeCurrent drinker of alcohol (finding) [facility] Hospitaltart: 12-19-2019 End: 89-35-4004Wgattvt of Social functionMercy Health St. Elizabeth Youngstown HospitalHow often to you have a drink containing alcohol?NeverHarris Regional Hospitaltart: 09-06-2022 Average Number of DrinksNot on [facility]tart: 03-21-2023 Alcohol CommentsocialHarris Regional Hospitaltart: 27-06-4210Xwy assigned at [facility] hospitalNot on [facility] Hospitaltart: 56-52-8153RsqQhlyho (finding) [facility] Hospitaltart: 30-93-7464Qofavis CommentOne drink per monthCitizens Memorial HealthcareStart: 39-84-1805VnmxfsobtEAAM Healthcare Clinical Notes 02-04-2020 to 04-29-2025 Note Date & TfiaAwnfPdjnncid27-57-2507 History of Present illness Narrative* Inna Kirkland [...] Diagnosis Date Noted Positive urine test ([facility]) 12/03/2024 Resolved Ambulatory Problems Diagnosis [...] nursing note reviewed. Exam conducted with a mechanical manufacturing engineer present. Vitals: Estimated body mass index is 34.36 kg/m as calculated from the following: Height as of 01/23/24: 5' 8 . Weight as of 04/15/25: 226 lb. BP: Patient's last menstrual period was 09/28/2024. Assessment/Plan ICD-10-CM 1. Third trimester ([facility]) Z34.93 2. 30 weeks gestation of ([facility]) Z3A.30 POCT urinalysis dipstick manually resulted Return [...] of: Junito Ortiz DO documented in this encounterCitizens Memorial HealthcareNarcnrzfmf84-12-5735 History of Present illness Narrative* Saumya Simmons [...] Diagnosis Date Noted Positive urine test ([facility]) 12/03/2024 Resolved Ambulatory Problems Diagnosis [...] nursing note reviewed. Exam conducted with a mechanical manufacturing engineer present. Vitals: Estimated body mass index is 33.15 kg/m as calculated from the following: Height as of 01/23/24: 5' 8 . Weight as of 03/18/25: 218 lb. BP: Patient's last menstrual period was 09/28/2024. Assessment/Plan ICD-10-CM 1. Third trimester ([facility]) Z34.93 2. 28 weeks gestation of ([facility]) Z3A.28 POCT urinalysis dipstick manually resulted Return [...] of: Junito Ortiz DO documented in this encounterCitizens Memorial HealthcareEhviygljmn56-68-0593 History of Present illness Narrative* Ariadna Bowden [...] Diagnosis Date Noted Positive urine test ([facility]) 12/03/2024 Resolved Ambulatory Problems Diagnosis [...] nursing note reviewed. Exam conducted with a mechanical manufacturing engineer present. Vitals: Estimated body mass index is 33.15 kg/m as calculated from the following: Height as of 01/23/24: 5' 8 . Weight as of this encounter: 218 lb. BP: 122/70 Patient's last menstrual period was 09/28/2024. ASSESSMENT & PLAN ICD-10-CM 1. Second trimester ([facility]) Z34.92 POCT urinalysis dipstick manually resulted 2. 24 weeks gestation of ([facility]) Z3A.24 3. Diabetes mellitus screening Z13.1 CBC [...] of: Junito Ortiz DO documented in this encounterCitizens Memorial HealthcareEkxirndbbx21-93-8684 History of Present illness Narrative* Inna Kirkland [...] Diagnosis Date Noted Positive urine test ([facility]) 12/03/2024 Resolved Ambulatory Problems Diagnosis [...] nursing note reviewed. Exam conducted with a mechanical manufacturing engineer present. Vitals: Estimated body mass index is 31.75 kg/m as calculated from the following: Height as of 24: 5' 8 . Weight as of this encounter: 208 lb 12.8 oz. BP: 116/70 Patient's last menstrual period was 09/28/2024. ASSESSMENT & PLAN ICD-10-CM 1. Nausea and vomiting in ([facility]) O21.9 promethazine (Phenergan) 12.5 MG tablet 2. Second trimester ([facility]) Z34.92 POCT urinalysis dipstick manually resulted 3. 20 weeks gestation of ([facility]) Z3A.20 POCT urinalysis dipstick manually resulted [...] of: Inna Kirkland NP documented in this encounterCitizens Memorial HealthcareClxdwgrbja02-18-4704 History of Present illness Narrative* Saumya Simmons [...] Problems Diagnosis Date Noted Positive urine test ([facility]) 12/03/2024 Resolved Ambulatory Problems Diagnosis Date [...] nursing note reviewed. Exam conducted with a mechanical manufacturing engineer present. Vitals: Estimated body mass index is 30.99 kg/m as calculated from the following: Height as of 7/31/24: 5' 8 . Weight as of this encounter: 203 lb 12.8 oz. BP: 110/70 Patient's last menstrual period was 09/28/2024. ASSESSMENT & PLAN ICD-10-CM 1. 15 weeks gestation of ([facility]) Z3A.15 POCT urinalysis dipstick manually resulted 2. Second trimester ([facility]) Z34.92 POCT urinalysis dipstick manually resulted Alpha fetoprotein, maternal Alpha fetoprotein, maternal 3. Gastroesophageal reflux disease with esophagitis, unspecified whether hemorrhage K21.00 4. Screening, , for anatomic survey ([facility]) Z36.89 US OB 14+ weeks anatomy scan US OB 14+ weeks anatomy scan 5. Exposure to STD Z20.2 CHLAMYDIA TRACHOMATIS (GENITO/STI) Neisseria gonorrhea DNA probe, direct 6. Vaginal discharge N89.8 SURESWAB(R) ADVANCED VAGINITIS PLUS, TMA 7. Well woman exam with routine gynecological exam Z01.419 Pap Smear Return OB/Annual Exam: Patient presents today for a annual exam/routine obstetrics appointment. Patient is currently 29k9nckyirsfk. Patient states she is doing well but [...] of: Junito Ortiz DO documented in this encounterCitizens Memorial [id number] History of Present illness Narrative* Saumya Simmons [...] Diagnosis Date Noted Positive urine test ([facility]) 12/03/2024 Resolved Ambulatory Problems Diagnosis [...] nursing note reviewed. Exam conducted with a mechanical manufacturing engineer present. Vitals: Estimated body mass index is 29.73 kg/m as calculated from the following: Height as of 01/23/24: 5' 8 . Weight as of this encounter: 195 lb 8 oz. BP: 110/62 Patient's last menstrual period was 09/28/2024. ASSESSMENT & PLAN ICD-10-CM 1. 11 weeks gestation of ([facility]) Z3A.11 POCT urinalysis dipstick manually resulted 2. First trimester ([facility]) Z34.91 3. Nausea and vomiting in ([facility]) O21.9 4. Gastroesophageal reflux disease with esophagitis, unspecified whether hemorrhage K21.00 pantoprazole (Protonix) 40 MG EC tablet 5. Meconium aspiration in child of prior , currently , unspecified trimester ([facility]) O09.299 New OB: Patient presents today for [...] or undercooked meat, and stay away from [facility]. Patient has been consulted regarding any further do's and don'ts of . Patient voiced understanding and all questions and concerns were answered. Orders Placed This Encounter Procedures POCT urinalysis dipstick manually resulted Follow Up: Patient is to return in 4 weeks for routine OB appointment. Documented by Saumya Simmons LPN on behalf of: Junito Ortiz DO documented in this encounterCitizens Memorial HealthcareXkzbdsprzu42-99-0646 History of Present illness Narrative* Carissa Castro, LACTATION COORDINATOR - 12/05/2024 10:00 AM EDT Reason for [...] Diagnosis Date Noted Positive urine test ([facility]) 12/03/2024 Resolved Ambulatory Problems Diagnosis [...] dipstick manually resulted , unspecified gestational age ([facility]) - Type and screen; Future - ABO/Rh; Future - CBC and differential - Hemoglobin A1c - RPR - Rubella antibody, IgG - Hepatitis B surface antigen - Hepatitis C antibody - HIV-1 and HIV-2 antibodies - Rapid drug screen, urine; Future Encounter for supervision of normal first in first trimester ([facility]) - Rapid drug screen, urine; Future [...] or undercooked meat, and stay away from [facility]. Patient has also been advised to [...] by: Carissa Castro LPN documented in this encounterCitizens Memorial HealthcareDotznbzbcj91-80-6545 Evaluation note* Author Jake Fitzgerald [facility] HospitalAuthoredFirsthealth 2023 9:29amPatient positive for intermittent nausea occurring once or twice monthly patient does note slight appetite changes however this is minimal patient did report periods of weight loss however patient has maintained her weight for many months at this point. Patient is negative for hematemesis, abdominal pain and family history of esophageal and gastric cancer. [facility] Work Phone: 1(201) 597-439403-13-2024 History of Present illness Narrative* Ty Stratton PA-C - 09/05/2023 9:30 AM EDT [facility] Office Note 09/05/2023 8:59 AM Patient info: Nathaniel Bob is a 27 y.o. female Account No.: [id number] Acct: : 1995 PCP: IVON Wadsworth Chief [...] CT Head recently completed at [facility] (February,) - reportedly was normal but [...] concussion at age 6 (-) hx of [employer]AL [employer] WHEEL infection: (-) hx of stroke/cerebrovascular malformation: (-) [...] without aura, often with associated vestibular symptoms. Vqws-qc-qotmozxf PEREZ's are often present upon waking, while [...] Stratton PA-C 09/06/23 0832 documented in this encounterPremier Health Upper Valley Medical CenterEnhanceWorks [facility] HospitalTvxyqp57-71-3386 Miscellaneous Notes* Telephone Encounter - Viviane Jamison [...] refill again. Please advise and contact patient [phone] * Telephone Encounter - Aimee Lombardo CMA [...] informed and voiced understanding. documented in [facility] encounterMer[facility] [id number] Telephone encounter Note* Telephone Encounter - Viviane [...] refill again. Please advise and contact patient [phone] [facility] [id number] Telephone encounter Note* Telephone Encounter - Aimee Lombardo CMA - 07/16/2023 12:39 PM EST The patient is currently taking 60 mg 1 tab in the am of Qulipta. The patient was last seen in clinic 05/23/2023 and is scheduled to follow up 09/05/2023. [facility] HospitalIntelligentMDx Nstnnj77-41-0259 Telephone encounter Note* Telephone Encounter - Ty Stratton PA-C - 07/16/2023 12:39 PM EST Take 1/2 tablet daily for 6 days, then Discontinue. - [facility] [id number] Telephone encounter Note* Telephone Encounter - Yelitza Pickens RN - 07/16/2023 12:39 PM EST Patient informed and voiced understanding. [facility] HospitalsmsPREPKtghdz43-20-0850 Evaluation note* Encounter Date Diagnosis Assessment Notes [...] albuterol. Continue to monitor closely. Can take ihum-uqg-xxohnbz medication for symptom relief. Exercise conservative measures, [...] that were not corrected during review process. [employer] Other 12-06-2023 Evaluation note* Encounter Date Diagnosis [...] that were not corrected during review process. [facility] Other 09-11-2023 Evaluation note* Encounter Date Diagnosis [...] that were not corrected during review process. [facility] Other 08-30-2023 Evaluation note* Encounter Date Diagnosis [...] will also forward these to endocrinology through [facility]. Jan,Elevated cortisol level (ICD-10 - E27.0)Extensive lab [...] will also forward these to endocrinology through [facility]. Jan,Nausea (ICD-10 - R11.0)I would like [...] agreeable. We will refer to [facility] neurology so the same electronic medical [...] agreeable. We will refer to [facility] neurology so the same electronic medical [...] that were not corrected during review process. [employer] Other 02-22-2022 Note [id number]#1.00[facility]10-15-2021 [id number]#1.00[facility] 02-04-2020 History general Narrative - Reported* Type Description Date Medical History Anxiety Medical HistoryDepressionMedical HistorySeasonal allergiesHospitalization HistoryChildbirth02/04/2020Hospitalization MhpomzvUjydaopmre49/15/2021 [facility]ly [facility] Other Evaluation noteNo InformationNortPhysicians Care Surgical Hospital [facility] Other Evaluation noteNo assessment information available [facility] Work Phone: Evaluation note* Diagnosis Onset Date Resolution Status Acid reflux acuteAnxietyacuteMigrainesacuteNauseaacute [facility] Work Phone: Evaluation note* Diagnosis Migraine without aura and without status migrainosus, not intractable documented in this encounter [facility] SystemEvaluation [facility]* Diagnosis Migraine without aura and without status migrainosus, not intractable- Primary Vestibular migraine Pineal gland cyst Other specified endocrine disorders Hx of concussion Daytime somnolence documented in this encounter [facility] SystemEvaluation [facility]* Diagnosis Missed menses , unspecified gestational age ([facility]) Encounter for supervision of normal first in first trimester ([facility]) Dizzy Dizziness and giddiness Lightheaded Dizziness and giddiness documented in this encounter [facility] HealthcareEvaluation note* Diagnosis 11 weeks gestation of ([facility]) First trimester ([facility]) state, incidental Nausea and vomiting in ([facility]) Unspecified vomiting of , unspecified as to episode of care Gastroesophageal reflux disease with esophagitis, unspecified whether hemorrhage Meconium aspiration in child of prior , currently , unspecified trimester ([facility]) [facility] Diagnosis 15 weeks gestation of ([facility]) Second trimester ([facility]) state, incidental Gastroesophageal reflux disease with esophagitis, unspecified whether hemorrhage Screening, , for anatomic survey ([facility]) Encounter for anatomic survey Exposure to STD Vaginal discharge Leukorrhea, not specified as infective Well woman exam with routine gynecological exam Routine gynecological examination Nausea and vomiting in ([facility]) Unspecified vomiting of , unspecified as to episode of care related fatigue in second trimester ([facility]) Insomnia, unspecified type Other migraine with status migrainosus, not intractable [facility]* Diagnosis Nausea and vomiting in ([facility])- Primary Unspecified vomiting of , unspecified as to episode of care Second trimester ([facility]) state, incidental 20 weeks gestation of ([facility]) Elevated heart rate with elevated blood pressure without diagnosis of hypertension documented in this encounter [facility]* Diagnosis Second trimester ([facility]) state, incidental 24 weeks gestation of ([facility]) Diabetes mellitus screening Screening for diabetes mellitus documented in this encounter [facility]* Diagnosis Third trimester ([facility]) state, incidental 28 weeks gestation of ([facility]) size inconsistent with dates ([facility]) Racing heart beat Unspecified tachycardia documented in this encounter [facility]* Diagnosis Third trimester ([facility]) state, incidental 30 weeks gestation of ([facility]) documented in this encounter [facility] Narrative - Reported* Type Description Date Medical History Anxiety Medical HistoryDepressionMedical HistorySeasonal allergiesMedical History Elevated cortisol levelMedical HistoryElevated DHEAMedical HistoryMigraines Hospitalization HistoryChildbirth02/04/2020Hospitalization HistoryChildbirth 06/08/2021 [facility] Other InstructionsNot on filedocumented in this encounter ProMedicIntelligentMDx SystemInstructionsNot on filedocumented in this encounter ProMedicIntelligentMDx SystemInstructionsNot on filedocumented in this encounter ProMDivshot System Summary Purpose Family History No Family [...] 1 Elevated DHEA (E27.8 ) [facility] [place] Referring Provider First Name Nelida Referring Provider Last Name [facility] Referring Provider Specialty Nurse Pract itioner Referred Organization [facility] Referred Address [address],[address] Referred Provider Specialty Endocrinolog y Referral Priority Routine Reason Neuro [facility]- sev eral ongoing neuro symptoms Pending CT head at [facility] Diagnosis 1 Dizziness (R42) Referral Organization [facility] [place] Referring Provider First Name Nelida Referring Provider Last Name [facility] Referring Provider Specialty Nurse Pract itioner Referred Organization [facility] Referred Address [address], [place],[address] Referred Provider Specialty Neurology Referral Priority Routine SpecialtyDiagnoses / ProceduresReferred By ContactReferred To ContactRadiology Diagnoses Migraine without aura and without status migrainosus, not intractable Vestibular migraine Pineal gland cyst Procedures MR brain without contrast Ty Stratton PA-C [address] [place] [address] Referral IDStatusReasonStart DateExpiration DateVisits RequestedVisits [id number] Review/[id number] / ProceduresReferred By ContactReferred To ContactSleep Medicine Diagnoses Daytime somnolence Ty Stratton PA-C [address] [place] [address] Yanira Partida MD [address] [place] [address] Referral IDStatusReasonStart DateExpiration DateVisits RequestedVisits [id number] Review Specialty Services Required Chief Complaint and [...] section and content) DATE CREATED AUTHOR 11/14/2021 [facility] DATE CREATED AUTHOR AUTHOR'S ORGANIZ ATION 11/05/2022 [facility] DATE CREATED AUTHOR AUTHOR'S ORGANIZ ATION 09/06/2023 [facility] DATE CREATED AUTHOR AUTHOR'S ORGANIZ ATION 05/01/2025 [facility] DATE CREATED AUTHOR AUTHOR'S ORGANIZ ATION 05/07/2025 [facility] REASON FOR VISIT (unrecogniz ed section and content) ReasonCommentsMed RefillReasonOnset DateCommentsWEENING OFF HIZESMZ9107/16/2023 ReasonCommentsFollow-upPatient is here today for 3 month [...] 25, 2023Team MemberRelationshipSpecialtyStart DateEnd Date BonivanJeremy shermana, PHYSICIST CRYOGENICS-PROGRAM MANUFACTURING LEADER [address] [address] PCP - [facility]04/06/23Team MemberRelationshipSpecialtyStart Date End Date BonivanJeremy shermana, PHYSICIST CRYOGENICS-PROGRAM MANUFACTURING LEADER [address] [address] PCP - [facility]04/06/23Team MemberRelationshipSpecialtyStart Date End Date Bonakosua Nelida, PHYSICIST CRYOGENICS-PROGRAM MANUFACTURING LEADER [address] [address] [facility] - [facility] Eiwfuhjl12/13/23Team MemberRelationshipSpecialtyStart Date End Date Unallocated, Meryls MD Chun [facility] [place] [address] PCP - [facility] Qfdwhtyr43/14/24 Treasure England DO [address] [id number] Referring HffszhntyYhfexitpy63/14/24Team MemberRelationshipSpecialtyStart Date End Date Unallocated, Natalie Mccollum MD [facility] [place] [address] PCP - [facility]05/08/24 Treasure England DO [address] [place] [address] Referring VwrrzzmauRextjdmqf06/14/24Team MemberRelationshipSpecialtyStart Date End Date Unallocated, Natalie Mccollum MD [address] [place] [address] PCP - [facility]05/08/24 Treasure England DO [address] [place] [id number] Referring PlhooqsodGuccskevo50/14/24Team MemberRelationshipSpecialtyStart Date End Date Unallocated, Natalie Mccollum MD [place] [place] [address] PCP - [facility]05/08/24 Treasure England DO [address] [place] [address] Referring OyqdkqtziCutavzelt48/14/24Team MemberRelationshipSpecialtyStart Date End Date Unallocated, Noms MD [facility] [place] [address] PCP - [facility]05/08/24 Treasure England DO [address] [place] [id number] Referring SqfzodxvkSzuvjellz15/14/24Team MemberRelationshipSpecialtyStart Date End Date Unallocated, Noms ProviderMD [facility] [place] [address] PCP - [facility]05/08/24 Treasure England DO [address] [place] [address] Referring ZlgburoleNmmucrmmk56/14/24Team MemberRelationshipSpecialtyStart Date End Date Unallocated, Noms MD Chun [address] [place] [address] PCP - [facility]05/08/24 Treasure England DO [address] [place] [id number] Referring VfyusbxtcSyefkhsgv31/14/24Team MemberRelationshipSpecialtyStart Date End Date Unallocated, Meryls MD Chun [facility] [place] [address] PCP - [facility]05/08/24 Treasure England DO [address] [place] [address] Referring FzulnlzydWhslmrzcj61/14/24Team MemberRelationshipSpecialtyStart Date End Date Unallocated, Meryls MD [facility]un [facility] [place] [address] PCP - [facility]05/08/24 Treasure England DO [address] [place] [address] Referring GobumfxmuEalrsctjt87/14/24Team MemberRelationshipSpecialtyStart Date End Date Unallocated, Meryls MD Chun [facility] [place] [address] [facility] - [facility]05/08/24 Treasure England DO [address] [place] [address] Referring VutrvxmlnJdlmbmajh08/14/24Team MemberRelationshipSpecialtyStart Date End Date Unallocated, Meryls MD Chun [facility] [place] [address] [facility]05/08/24 Treasure England DO [address] [place] [address] Referring FaxpqxgkxJutpcbycp39/14/24 Goals (unrecognized section and content) Goals may [...] BE BASED ON THE PRIMARY CLINICAL RECORDS. [facility]. provides no warranty or guarantee of the accuracy or completeness of information in this document.
[2025-05-27 09:27] VITALS: BP 119/71; PULSE 94
== END 2025-05-27 10:40 | disposition home or self-care (01) ==
LOC: US 08:58 → FBC 08:59
PROVIDERS: PCP Nurse Practitioner Family; Visit Provider Obstetrics & Gynecology
DX: O26.893 Other specified pregnancy related conditions, third trimester (principal); O09.523 Supervision of elderly multigravida, third trimester; Z3A.34 34 weeks gestation of pregnancy
CPT/HCPCS: 76818

== ENCOUNTER 2025-06-02 19:22 | Outpatient (OUT) | payer OTHER, SELFPAY ==
--- OUTSIDE RECORDS SUMMARY | 2025-05-27 13:00 | XMS_ITS | Encounter Summary ---
Author Organization [facility] Address [address] [place] [address] Care Team Providers Care Master Black Belt Name Role Phone Unallocated, Noms Provider MD Primary Care Provi aristeo TomásTreasure DO Unavailable [phone] Reason for Visit * ReasonCommentsRoutine Visit Encounter Details DateTypeDepartmentCare Team (Latest Contact Info)Ngbzmelpiwd64/03/2025 1:00 PM ESTRoutine [facility] [place] [facility] [address] [place] [address] Junito Ortiz DO [address] [place], [place] [id number] 34 weeks gestation of ([facility]); Third trimester ([facility]); Yeast infection; Excessive growth affecting management of , antepartum, single or unspecified fetus ([facility]) Social History Tobacco UseTypesPacks/DayYears UsedDateSmoking Tobacco: NeverSmokeless Tobacco: NeverAlcohol UseStandard Drinks/WeekCommentsYes0 (1 standard drink = 0.6 oz pure alcohol)One drink per monthEstimated Date of DeliveryCommentsYes 6Based on last menstrual period of 09/28/2024Sex and Gender Information ValueDate RecordedSex Assigned at BirthNot on fileLegal KcqAbtxhg99/15/2023 8:11 PM EDTGender IdentityNot on fileSexual OrientationNot on filedocumented as of this encounter Last Filed Vital Signs Vital SignReadingTime TakenCommentsBlood Syyxqtcg059/6012 1:03 PM EST Pulse--Temperature--Respiratory Rate--Oxygen Saturation--Inhaled Oxygen Concentration--Ftvnjf278 kg (231 lb)05/27/2025 1:03 PM ESTHeight--Body Mass Index35.1207 1:31 PM EDTdocumented in this encounter Progress Notes * Saumya Simmons LPN - 05/27/2025 1:00 PM EST Reason for Appointment: Patient ID: Kat Bob is a 29 y.o. female who presents for Routine Visit Patient presents today for Return OB appointment. MEDICATIONS Current Outpatient Medications Medication Instructions Doxylamine Succinate, Sleep, (UNISOM PO) Take by mouth magnesium 100 MG tablet metoclopramide (Reglan) 10 [...] Problems Diagnosis Date Noted Positive urine test ([facility]) 12/03/2024 Resolved Ambulatory Problems Diagnosis Date [...] nursing note reviewed. Exam conducted with a junior designer present. Vitals: Estimated body mass index is 35.12 kg/m?? as calculated from the following: Height as of 01/23/24: 5' 8 . Weight as of this encounter: 231 lb. BP: 122/60 Patient's last menstrual period was 09/28/2024. Assessment/Plan ICD-10-CM 1. 34 weeks gestation of ([facility]) Z3A.34 POCT urinalysis dipstick manually resulted 2. Third trimester ([facility]) Z34.93 POCT urinalysis dipstick manually resulted Assessment/Plan Return OB: Patient presents today for a routine obstetrics appointment. Patient is currently 34w3d . Patient states she is doing well but has complaints of being tired due to current . Patient has verbalizes frequent movement. labor precautions was discussed/given and patient was instructed to perform kick counts three times a day. Pt to get celestone at next BPP. Orders Placed This Encounter Procedures US OB follow up transabdominal approach POCT urinalysis dipstick manually resulted Follow Up: Patient is to return to office in 2 week for routine OB appointment. Documented by Saumya Simmons LPN on behalf of: Junito Ortiz DO documented in this encounter Plan of Treatment DateTypeDepartmentCare Team (Latest Contact Info)Zrgiwvaggnc12/17/2025 8:30 AM ESTRoutine [facility] [address] [place] [address] Nicole Ghosh PA [address] [place] [address] NameTypePriorityAssociated DiagnosesDate/TimeUS OB follow up transabdominal approachImagingRoutine Excessive growth affecting management of , antepartum, single or unspecified fetus ([facility]) 06/01/2025 8:18 AM ESTNameTypePriorityAssociated DiagnosesOrder ScheduleUS OB follow up transabdominal approachImagingRoutine Excessive growth affecting management of , antepartum, single or unspecified fetus ([facility]) Expected: 05/27/2025, Expires: 09/25/2025documented as of this encounter Procedures Procedure NamePriorityDate/TimeAssociated DiagnosisCommentsPOCT URINALYSIS APGBMTZAXmhxrij80/03/2025 1:16 PM EST 34 weeks gestation of ([facility]) Third trimester ([facility]) documented in this encounter Results * (ABNORMAL) POCT urinalysis dipstick manually resulted (05/27/2025 1:16 PM EST) ComponentValueRef RangeTest MethodAnalysis TimePerformed AtPathologist SignatureColor, UAYellowClarity, UAClearGlucose, UANegativeNegative - 2000(110) ++++ mg/dLBilirubin, UANegativeNegative - 4(70) +++ mg/dLKetones, UA NegativeNegative - 160(16) ++++ mg/dLSpec Grav, UA1.0301 - 1.03Blood, UA NegativeNegative - 50 Cj/mcLpH, UA6.05 - 9Protein, UATraceNegative - 2000(20) ++++ mg/dLUrobilinogen, UA0.20.2 - 12 mg/dLLeukocytes, UANegativeNegative - 500+++ Cosmo/mcLNitrite, UANegativeNegative - PositiveSpecimen (Source) Anatomical Location / LateralityCollection Method / VolumeCollection Time Received BsauJbfpp09/03/2025 1:16 PM EST Narrative Authorizing ProviderResult TypeResult StatusCorey Angel DOPOINT OF CARE TEST ENTER/EDIT ORDERABLESFinal Result documented in this encounter Visit Diagnoses Diagnosis 34 weeks gestation of ([facility]) Third trimester ([facility]) state, incidental Yeast infection Excessive growth affecting management of , antepartum, single or unspecified fetus ([facility]) documented in this encounter Care Teams Team MemberRelationshipSpecialtyStart DateEnd Date Unallocated, Noms Provider, [address] [place] [address] PCP - GeneralFamily Amslcgge23/14/24 Treasure England DO [address] [place] [address] Referring IezeqjagsJnasbnxaj38/14/24documented as of this encounter
--- OUTSIDE RECORDS SUMMARY | 2025-06-01 08:00 | XMS_ITS | Encounter Summary ---
Author Organization [facility] Address [address] [facility] [place] [address] Care Team Providers Care Denture Finisher Name Role Phone Unallocated, Noms Provider Primary Care Provi aristeo Tomás Treasure DO Unavailable [phone] Encounter Details DateTypeDepartmentCare Team (Latest Contact Info)Bubfpqresni71/08/2025 8:00 AM ESTAncillary Procedure NATALIE KEARNS [address] [place] [address] Excessive growth affecting management of , antepartum, single or unspecified fetus ([facility]) Social History Tobacco UseTypesPacks/DayYears UsedDateSmoking Tobacco: NeverSmokeless Tobacco: NeverAlcohol UseStandard Drinks/WeekCommentsYes0 (1 standard drink = 0.6 oz pure alcohol)One drink per monthEstimated Date of DeliveryCommentsYes 6Based on last menstrual period of 09/28/2024Sex and Gender Information ValueDate RecordedSex Assigned at BirthNot on fileLegal XojNkwoaw73/15/2023 8:11 PM EDTGender IdentityNot on fileSexual OrientationNot on filedocumented as of this encounter Plan of Treatment DateTypeDepartmentCare Team (Latest Contact Info)Pmvujszvwon42/17/2025 8:30 AM ESTRoutine NATALIE KEARNS [address] [facility] [place] [address] Nicole Ghosh PA [address] [place] [address] NameTypePriorityAssociated DiagnosesDate/TimeUS OB follow up transabdominal approachImagingRoutine Excessive growth affecting management of , antepartum, single or unspecified fetus ([facility]) 06/01/2025 8:18 AM ESTdocumented as of this encounter Visit Diagnoses Diagnosis Excessive growth affecting management of , antepartum, single or unspecified fetus ([facility]) documented in this encounter Care Teams Team MemberRelationshipSpecialtyStart DateEnd Date Unallocated, Noms Provider, [address] [place] [address] PCP - GeneralFamily Jltetass04/14/24 Treasure England DO [address] [place] [address] Referring RtwucicvsCkmyfhodh27/14/24documented as of this encounter
--- OUTSIDE RECORDS SUMMARY | 2025-06-02 19:25 | XMS_ITS | CCD ---
Author Organization [facility] Care Team Providers Care Model Photographers' Name Role Phone NICK, DR NIELSEN Admitting Unavailable NICK, DR NIELSEN Attending Unavailable SMITH ., VI Primary Care Unavailable NICK, DR NIELSEN Consulting Unavailable ANGEL ., DR PAULINO Consulting Unavailable ANGEL ., DR PAULINO Admitting Unavailable ANGEL ., DR PAULINO Attending Unavailable SMITH ., VI Primary Care Unavailable ONEMO, DR NIELSEN V Consulting Unavailable ANGEL ., [...] STRATTON Attending Unavailable BONERWOOD, NELIDA Referring Unavailable ALFONSOWOOD, NELIDA Primary Care Unavailable YANELI Ding Primary Care Provider Junito Ortiz Attending Provider [phone] Magaly DEGREASERNelida HANSEN Primary Care Provider Unallocated , Meryls [...] of OnsetReaction(s) Facility (9 sources)House dust miteDrug allergyApteraCapital District Psych[facility] Center [place] Other (20 sources)PollenDrug ugmsgfr74-53-2949RwkbmeeIvucn [place] Other (5 sources)house dust allergenic extract; Translations: [house dust]Drug Allergy 23-07-3118Wfmsqui ReactionKettering Health Greene Memorial (5 sources)Pollen; Translations: [pollen extracts]Allergy to lrlaaafjr78-11-1698 Unknown ReactionKettering Health Greene Memorial Medications Current Medications MedicationDrug Class(es)DatesSig (Normalized)Sig (Original)acetaminophen 300 mg / codeine phosphate 30 mg oral tablet (4 sources)Opioid AgonistStart: 01-14-2025 End: 64-29-8871hixe 1 tablet by mouth every six hours [...] Activedexamethasone 1 mg oral tablet (2 sources)CorticosteroidStart: 21-19-0589Palddjidlolfd 1 MG 1 tablet Orally 11pm for 1 days Jan, ActiveDoxylamine Succinate, Sleep, (UNISOM PO) (19 sources)Doxylamine Succinate, Sleep, (UNISOM PO) Take by mouth Active fexofenadine (10 sources)Histamine-1 Receptor AntagonistStart: 28-24-1607hemstgqxaril ([facility]) Active PO December 25, 2023 12:00amStart: 09-19-2023 End: 80-29-2384xnmwkdbtxxql (Blanche Allergy) Discontinued PO Daily September 19, 2023 12:00am November 28, 2023 8:59amStart: 75-30-5232hzwsfhzzdotp (Blanche Allergy) Active PO Daily September 19, 2023 12:00amStart: 09-12-2023 End: 16-97-2837rrwbmbjybdqy (Blanche Allergy) 180 MG tablet 09/12/2023 12/17/2024 DiscontinuedMagnesium (20 sources)Start: 27-20-8209bdxqeisgk Active PO December 25, 2023 12:00amStart: 09-03-2023 End: 36-76-5193luduvpkwi Discontinued PO September 03, 2023 12:00am November 28, 2023 8:59amStart: 51-35-0884ybefrvdvv Active PO September 03, 2023 12:00amStart: 07-92-2355rsiidcweo 100 MG tablet 08/17/2022 ActiveMagnesium OTC, daily Active metoclopramide 10 mg oral tablet (20 sources)Dopamine-2 Receptor AntagonistStart: 21-93-4169chjs 1 tablet by mouth in the morning as needed for nauseametoclopramide (Reglan) 10 MG tablet Indications: Nausea and vomiting in ([facility]) TAKE 1TABLET BY MOUTH IN MORNING,AT NOON,IN EVENING 30 MINUTES PRIOR TO MEALS NEEDED FOR NAUSEA 90 tablet 1 03/23/2025 ActiveStart: 01-26-2025 End: 15-97-0329ecjkbmldxbyzfr (Reglan) 10 MG tablet Indications: Nausea and vomiting in ([facility]) Take 1tablet (10 mg) by mouth in the morning and 1 tablet (10 mg) at noon and 1 tablet (10 mg) in the evening. Take before meals. Take 1 tablet by mouth 30 minutes prior to meals 3 times daily as needed for nausea. 90 tablet 1 01/26/2025 ActiveStart: 01-14-2025 End: 13-80-5929cywb 1 tablet by mouth three times daily as neededmetoclopramide (Reglan) 10 MG tablet Indications: Nausea and vomiting in ([facility]) Take 1tablet (10 mg) by mouth 3 (three) times a day as needed (as needed prior to meals) for up to 10 days 1 tablet 01/14/2025 01/24/2025 ActiveStart: 12-16-2024 End: 24-54-1199vfme 1 tablet by mouth before mealtime as needed for nausea metoclopramide (Reglan) 10 MG tablet Indications: Nausea and vomiting in ([facility]) TAKE 1TABLET BY MOUTH IN THE MORNING, NOON, EVENING, 30 MINUTES BEFORE MEALS NEEDED FOR NAUSEA 90 tablet 3 12/16/2024 12/17/2024 Discontinued (Ineffective)Start: 11-14-2024 End: 30-61-6842nmixxoehvbgfzh (Reglan) 10 MG tablet Indications: Nausea and vomiting in ([facility]) Take 1tablet (10 mg) by mouth in the morning and 1 tablet (10 mg) at noon and 1 tablet (10 mg) in the evening. Take before meals. Take 1 tablet by mouth 30 minutes prior to meals 3 times daily as needed for nausea. 90 tablet 11/14/2024 12/14/2024 Activeomeprazole 20 mg delayed release oral capsule (20 sources)Proton Pump InhibitorStart: 01-26-2025 End: 41-43-5178wqyo 2 capsules by mouth before mealtimeomeprazole (PriLOSEC) [address] capsule Indications: Gastroesophageal Reflux Disease , Heartburn Take 2 capsules (40 mg) by mouth in the morning. Take before meals. Do not crush or chew. 180 capsule 05/19/2025 ActiveStart: 09-03-2023 End: 73-97-0436mcpe 40 mg by mouth once dailyOmeprazole Discontinued 40 MG PO Daily 90 90 September 03, 2023 2:16pm November 28, 2023 8:59amStart: 48-52-9848yzzk 2 capsules by mouth in the morningomeprazole (PriLOSEC) 20 mg capsule Take 2 capsules (40 mg total) by mouth in the morning. 02/21/2023 ActiveStart: 67-56-4835ahgw 1 capsule by mouth once dailyOmeprazole 40 MG 1 capsule 30 minutes before morning meal Orally Once a day for 90 days Jan, Active Start: 58-35-1892wpvy 1 capsule by mouth in the morningomeprazole (PriLOSEC) 20 mg capsule Take 1 capsule (20 mg total) by mouth in the morning. 0 02/21/2023 Activeondansetron 4 mg oral tablet (20 sources)Serotonin-3 Receptor AntagonistStart: 11-05-2024 End: 24-82-7083unki 1 tablet by mouth every six hours as needed for nausea and nausea, then take 1 tablet by mouthevery six hours as needed for nausea and nauseaondansetron (Zofran) 4 MG tablet Indications: Nausea and vomiting in ([facility]) Take 1 tablet (4 mg) by mouth every 6 (six) hours if needed for nausea or vomiting for up to 30 doses Take 1 tablet by mouth every 6 hours as needed for nausea. 30 tablet 3 01/14/2025 ActiveStart: 09-03-2023 End: 31-90-8201cylo 4 mg by mouth once dailyOndansetron Hcl Active 4 MG PO Daily December 25, 2023 12:36pmStart: 51-81-7164eksl 1 tablet by mouth every twenty-four hoursOndansetron HCl 4 MG 1 tablet Orally Once a day for 14 days Jun, Active End: 16-38-0993xmru 1 tablet by mouth every eight hours [...] tablet (19 sources)Proton Pump InhibitorStart: 12-17-2024 End: 75-70-0324loby 1 tablet by mouth before mealtimepantoprazole (Protonix) [...] hydrochloride 12.5 mg oral tablet (12 sources)PhenothiazineStart: 38-32-0039xgle 1 tablet by mouth every eight hours as needed for nausea and nausea, then take 1 tablet by mouth every six hours as needed for nausea and nauseapromethazine (Phenergan) 12.5 MG tablet Indications: Nausea and vomiting in ([facility]) Take 1 tablet (12.5 mg) by mouth [...] PERSISTSMAX 2/24HR 12 tablet 2 07/04/2024 ActiveStart: 17-29-4081xosbfqgytbn (MAXALT) 10 mg tablet Indications: Migraine without aura and without status migrainosus, not intractable Take 1 tablet just after onset of migraine. May repeat the dose after 2 hours if migraine persists. Max of 2 doses per 24 hours. 12 tablet 2 09/05/2023 ActiveStart: 05-23-2023 End: 29-65-8553tiim 5 mg by mouth once dailyRizatriptan Discontinued 5 MG PO Daily September 03, 2023 12:00am November 28, 2023 8:59amverapamil hydrochloride 120 mg extended release oral tablet (2 sources)Calcium Channel BlockerStart: 91-24-1841oyjl 1 tablet by mouth once dailyverapamil SR (CALAN-SR) 120 mg CR tablet Indications: Migraine without aura and without status migrainosus, not intractable Take 1 tablet (120 mg total) by mouth nightly. 30 tablet 5 09/05/2023 Activezolpidem tartrate 10 mg oral tablet (16 sources)gamma-Aminobutyric Acid-ergic AgonistStart: 01-14-2025 End: 53-24-6176Yegioj 10 MG tablet Indications: related fatigue in second trimester ([facility]) , Insomnia, unspecified type Take 1 tablet (10 mg) by mouth as needed at bedtime for sleep for up to 5 days 5 tablet 01/14/2025 Active Completed/Discontinued Medications MedicationDrug Class(es)DatesSig (Normalized)Sig (Original)Atogepant (4 sources)Start: 09-03-2023 End: 01-27-4939isre 60 mg by mouth once dailyAtogepant Discontinued 60 MG PO Daily September 03, 2023 12:00am September 19, 2023 11:04amatogepant (QULIPTA) 60 mg tablet (2 sources)Start: 05-23-2023 End: 95-56-6728loci 1 tablet by mouth in the morningatogepant (QULIPTA) 60 mg tablet Indications: Migraine without aura and without status migrainosus,not intractable Take 60 mg by mouth in the morning. 30 tablet 5 05/23/2023 09/05/2023 DiscontinuedStart: 99-35-5287tlpb 1 tablet by mouth in the morning atogepant (QULIPTA) 60 mg tablet Indications: Migraine without aura and without status migrainosus,not intractable Take 60 mg by mouth in the morning. 30 tablet 5 05/23/2023 Olbfot00 hr buPROPion hydrochloride 150 mg extended release oral tablet (20 sources)AminoketoneStart: 09-19-2023 End: 92-03-2617czxp 150 mg by mouth once dailyBupropion Hcl Discontinued 150 MG PO Daily 90 September 19, 2023 11:41am November 28, 2023 8:59amStart: 09-03-2023 End: 10-05-0655wzao 1 tablet by mouth once dailyBupropion Hcl [...] oral tablet (5 sources)Histamine-2 Receptor Antagonist End: 29-78-0825xtcrbbmlps (Pepcid) 10 MG tablet Take by mouth 01/14/2025 Discontinuedmagnesium oxide 250 mg oral tablet (2 sources) End: 55-95-8622wurm 1 tablet by mouth in the morningmagnesium oxide 250 mg tablet Take 1 tablet (250 mg total) by mouth in the morning. 0 09/05/2023 Dis continuedPNV no.95/ferrous fum/folic ac ( ORAL) (2 sources) End: 09-39-4515rgtd 1 tablet by mouth once daily before mealtimePNV no.95/ferrous fum/folic ac ( ORAL) Take 1 tablet by mouth daily. 0 09/05/2023 Discontinuedtake 1 tablet by mouth once daily before mealtimePNV no.95/ferrous fum/folic ac ( ORAL) Take 1 tablet by mouth daily. 0 Activepolysaccharide iron complex 391 mg oral capsule (7 sources)Start: 04-01-2025 End: 25-16-4967lfia 1 capsule by mouth once dailyiron polysaccharides (ProFe) 391.3 (180 Fe) MG capsule Indications: Low iron Take 1 capsule (391.3 mg) by mouth Daily 30 capsule 6 04/01/2025 05/01/2025 Expiredpropranolol hydrochloride 20 mg oral tablet (4 sources)beta-Adrenergic BlockerStart: 05-23-2023 End: 52-31-8832ithoruajzxI (INDERAL) 20 mg tablet Indications: Migraine without aura and without status migrainosus, not intractable Take 1 tablet (20 mg) twice daily for 3 days, then reduce to 1 tablet daily for 3days, then discontinue 9 tablet 0 05/23/2023 09/05/2023 Discontinuedtake 1 tablet by mouth at bedtime Propranolol HCl 60 MG 1 tablet Orally HS for migraines Activevitamin B12 (5 sources)Vitamin D95Ftfywth B12 Not-Taking Problems Active Problems Problem ClassificationProblemDateDocumented DateEpisodic/ChronicAnxiety disorders (17 sources)Anxiety; Translations: [Anxiety disorder, unspecified]ChronicComa; stupor; and brain damage (2 sources)Somnolence; Translations: [Daytime somnolence]Onset: 09-05-2023 28-25-9733OmagbbqoFnrskyphxj associated with dizziness or vertigo (12 sources)Dizziness; Translations: [Dizziness and giddiness]EpisodicEsophageal disorders (9 sources)Gastroesophageal reflux disease; Translations: [Gastro-esophageal reflux disease without esophagitis]51-74-1907JjbmfkfPezchuyc; including migraine (20 sources)Migraine; Translations: [Migraine, unspecified, not intractable, without status migrainosus]Onset: 68-30-3026JlhuwxnIqffn valve disorders (6 sources)Tachycardia; Translations: [Unspecified abnormalities of heart beat] 96-54-0483LyaphjtqNqswbwhqsmwcy and screening for infectious disease (3 sources)Encounter for screening for human papillomavirus (HPV); Translations: [Exposure to sexually transmissible disorder]Onset: 587510-99-0895Exidpmya Malaise and fatigue (1 source)Other fatigue; Translations: [OTHER FATIGUE]Onset: 82-92-0555Ohbtffkj Menstrual disorders (5 sources)Irregular menstruation, unspecified; Translations: [Missed period] Onset: 12-58-1262FmxcpnpZlkr disorders (13 sources)Depressive disorder; Translations: [Major depressive disorder, single episode, unspecified]00-03-0069AmnhizsAaukyb and vomiting (18 sources)Nausea; Translations: [Nausea]Onset: 20-28-6957XxouljenLeaka bone disease and musculoskeletal deformities (1 source)Segmental and somatic dysfunction of pelvic region; Translations: [Segmental and somatic dysfunction of pelvic region]Onset: 27-80-2976Bmqzqncv Other complications of (6 sources)Vomiting of , unspecified; Translations: [Unspecified vomiting of , unspecified as to episode of care or not applicable] 77-55-6268TcnwevpgGzgbx complications of (2 sources)High risk ; Translations: [Supervision of with other poor reproductive or obstetric history, unspecified trimester]12-17-2024 EpisodicOther complications of (2 sources)Fatigue during ; Translations: [ related exhaustion and fatigue, second trimester]13-17-6934KctvgtqyKoqgj complications of (2 sources) size does not accord with dates; Translations: [Uterine size- date discrepancy, unspecified trimester]23-77-7455PivsxhhaKrink endocrine disorders (5 sources)Other adrenocortical overactivity; Translations: [OTHER ADRENOCORTICAL OVERACTIVITY]Onset: 81-36-1600PybmhadQpigb endocrine disorders (9 sources)Dehydroepiandrosterone sulfate level; Translations: [Other specified disorders of adrenal gland]ChronicOther endocrine disorders (9 sources)Increased cortisol level; Translations: [Other adrenocortical overactivity]ChronicOther endocrine disorders (2 sources)Other specified disorders of adrenal glandChronicOther female genital disorders (2 sources)Vaginal discharge; Translations: [Other specified noninflammatory disorders of vagina]16-08-6207SnulmtojLdxgi and delivery including normal (20 sources); Translations: [Encounter for supervision of normal , unspecified, unspecified trimester]Onset: EpisodicOther screening for suspected conditions (not mental disorders or infectious disease) (20 sources)Encounter for screening for malignant neoplasm of cervix; Translations: [Other specified abnormal findings of blood chemistry]Onset: 95-05-6385AlgmwiszEkero upper respiratory disease (13 sources)Seasonal allergy; Translations: [Other seasonal allergic rhinitis] 34-07-9401KjzczqcPzrwx upper respiratory infections (1 source)Acute upper respiratory infection, unspecifiedEpisodicResidual codes; unclassified (2 sources)Gestation period, 11 weeks; Translations: [11 weeks gestation of ]33-11-2071ZhjmgnveQliehvuu codes; unclassified (2 sources)Gestation period, 15 weeks; Translations: [15 weeks gestation of ]12-74-7003XojggpwdGzswflim codes; unclassified (2 sources)Insomnia; Translations: [Insomnia, unspecified]10-64-4497Pozixsdg Residual codes; unclassified (2 sources)Gestation period, 20 weeks; Translations: [20 weeks gestation of ]59-18-8549VvtmslkaDxrixcjq codes; unclassified (2 sources)Gestation period, 24 weeks; Translations: [24 weeks gestation of ]06-83-0834MeffqvulZazfpvll codes; unclassified (2 sources)Gestation period, 28 weeks; Translations: [28 weeks gestation of ]32-34-6030GcuwsepyGamtfrcw codes; unclassified (2 sources)Gestation period, 30 weeks; Translations: [30 weeks gestation of ]51-01-9817Sonrggar Past or Other Problems Problem ClassificationProblemDateDocumented DateEpisodic/ChronicAbdominal pain (4 sources)Unspecified abdominal pain; Translations: [UNSPECIFIED ABDOMINAL PAIN]Onset: 57-22-5134IwjzlsbfLpvhhuvgplaa injury (5 sources)Personal history of traumatic brain injury; Translations: [History of concussion injury of brain]Onset: 645749-31-0835QixsisljNwws disorders (3 sources)Mood disordersOnset: Other complications of ; puerperium affecting management of mother (3 sources)Central nervous system malformation in fetus affecting obstetrical care; Translations: [Choroid plexus cyst of fetus affecting care of mother, antepartum]Onset: 351924-01-4138XpqmyprrQxxtq endocrine disorders (1 source)Endocrine disorder, unspecified; Translations: [ENDOCRINE DISORDER UNSPECIFIED]Onset: 82-14-4974VldgzuqhMkxwq endocrine disorders (1 source)Other specified endocrine disorders; Translations: [Other specified endocrine disorders]Onset: 33-42-1545QwtbaxdaZymxz endocrine disorders (4 sources)Cyst of pineal gland; Translations: [Other specified endocrine disorders]Onset: 630619-63-4180ApxlrgswEovxj gastrointestinal disorders (1 source)Abdominal distension (gaseous); Translations: [ABDOMINAL DISTENSION GASEOUS]Onset: 03-48-1378OayrjicaGvyqpoa cyst (1 source)Other ovarian cyst, right side; Translations: [OTHER OVARIAN CYST RIGHT SIDE]Onset: 58-54-5584Vdwwlyey Results Test NameValueInterpretationReference RangeFacilityUS OB FOLLOW UP TRANSABDOMINAL APPROACHon 54-69-4055DZ OB FOLLOW UP TRANSABDOMINAL APPROACH FINDINGS: A [...] Delivery: 07/05/25 Gestational Age as of 04/15/2025: 19k4pVsprljclji macro (dipstick) panel (U)on 14-60-9092Yrpljkpii, UANegativeNegative - 4(70) +++ mg/dLNOMS HealthcareBlood, UANegativeNegative - 50 Cj/mcLNOMS HealthcareClarity, UAClearNOMS Healthcare Color, UAYellowNOMS HealthcareGlucose, UANegativeNegative - 2000(110) ++++ mg/dL N[facility]S HealthcareInterpretation and review of laboratory resultsAbnormalNOMS HealthcareKetones, UANegativeNegative - 160(16) ++++ mg/dLNOMS Healthcare Leukocytes, UATraceNegative - 500+++ Cosmo/mcLNOMS HealthcareNitrite, UANegative Negative - PositiveNOMS HealthcarepH, UA7.05 - 9NOMS HealthcareProtein, UA NegativeNegative - 2000(20) ++++ mg/dLNONH HealthcareSpec Grav, UA1.0101 - 1.03 NOMS HealthcareUrobilinogen, UA1.00.2 - 12 mg/dLNONH HealthcareNONH HealthcareCA ECHO DOPPLER COMPLETEon 98-22-3104FexSaint [place] [address] Cardiology Report Signed Patient: NATHANIEL BOB MR#: [id number] : 1995 Acct:[id number] Age/Sex: 29 / F ADM Date: 04/22/25 Loc: CARD Attending Dr: Junito Ortiz D.O. Ordering Physician: Junito Ortiz D.O. Date of Service: 04/22/25 Procedure(s): CA echo doppler complete Accession Number(s): [id number] cc: Nelida Ding HOUSING MANAGER; Junito Ortiz D.O. Patient Name: NATHANIEL BOB MR#: [id number] : 1995 Exam Date: 04/22/2025 Ordering Doctor: [...] Area (VTI): 2.50 cm2, 2.50 cm2 Deceleration [place]: Pressure Half-Time: Peak Velocity(Antegrade Flow): 1.55 m/s [...] content not included)...TBHRadiology, Radiologist, - 04/22/2025 [place] [address] Cardiology Report Signed Patient: NATHANIEL BOB MR#: [id number] : 1995 Acct:[id number] Age/Sex: 29 / F ADM Date: 04/22/25 Loc: CARD Attending Dr: Junito Ortiz D.O. Ordering Physician: Junito Ortiz D.O. Date of Service: 04/22/25 Procedure(s): CA echo doppler complete Accession Number(s): [id number] cc: Nelida Ding HOUSING MANAGER; Junito Ortiz D.O. Patient Name: NATHANIEL BOB MR#: [id number] : 1995 Exam Date: 04/22/2025 Ordering Doctor: [...] Area (VTI): 2.50 cm2, 2.50 cm2 Deceleration [place]: Pressure Half-Time: Peak Velocity(Antegrade Flow): 1.55 m/s [...] M.D. Signed By: 04/22/251812 DD/ 11 TD/TT: [place] Nurse: [facility]ITALDominguez HealthcareRadiology Study observation (narrative)[facility] HospitalCA ECHO DOPPLER COMPLETEOrdered By: Radiologist Radiology on 31-35-2663NHED Smava Work Phone: ecg 12-LEADon [phone] [place] [address] Electrocardiograph Report Signed Patient: NATHANIEL BOB MR#: [id number] : 1995 Acct:[id number] Age/Sex: 29 / F ADM Date: 04/22/25 Loc: CARD Attending Dr: Junito Ortiz D.O. Ordering Physician: uJnito Ortiz D.O. Date of Service: 04/22/25 Procedure(s): ECG 12 lead Accession Number(s): [id number] cc: [facility] Test Date: 2025-04-22 Pat Name: NATHANIEL BOB Department: Room: - Gender: Female Heel Shaper: : 1995 Requested By: JUNITO ORTIZ Order Number: [id number] Reading MD: SLY SAAB Measurements Intervals [place] Rate: 84 P: 22 HI: 139 QRS: 88 QRSD: 94 T: 54 QT: 361 QTc: 429 Interpretive Statements SINUS RHYTHM No previous ECG available for comparison Electronically Signed On 04-22-2025 18:39:57 EDT by SLY SAAB Dictated By: Sly Saab M.D. Signed By: 04/22/25183804/22/251838 DD/ 7 TD/TT: [place] Nurse:CHADWICKadiolSarahi acosta MD - 04/22/2025 [facility] [place] [id number] Electrocardiograph Report Signed Patient: NATHANIEL BOB MR#: [id number] : 1995 Acct:[id number] Age/Sex: 29 / F ADM Date: 04/22/25 Loc: CARD Attending Dr: Junito Ortiz D.O. Ordering Physician: Junito Ortiz D.O. Date of Service: 04/22/25 Procedure(s): ECG 12 lead Accession Number(s): [id number] cc: [facility] Test Date: 2025-04-22 Pat Name: NATHANIEL BOB Department: Room: - Gender: Female Heel Shaper: : 1995 Requested By: JUNITO ORTIZ Order Number: [id number] Reading MD: SLY SAAB Measurements Intervals [place] Rate: 84 P: 22 HI: 139 QRS: 88 QRSD: 94 T: 54 QT: 361 QTc: 429 Interpretive Statements SINUS RHYTHM No previous ECG available for comparison Electronically Signed On 04-22-2025 18:39:57 EDT by SLY SAAB Dictated By: Sly Saab M.D. Signed By: 04/22/25183804/22/251838 DD/ 7 TD/TT: [place] Nurse: NATALIE BarriosRadiology Study observation (narrative)[facility] HealthcareECG 12-LEAD Ordered By: Radiologist Radiology on 48-55-0512[facility] Work Phone: Urinalysis macro (dipstick) panel (U)on 04-15-2025 Bilirubin, UANegativeNegative - 4(70) +++ mg/dLNOMS HealthcareBlood, UANegative Negative - 50 Cj/mcLNOMS HealthcareClarity, UAClearNOMS HealthcareColor, UA YellowNOMS HealthcareGlucose, UANegativeNegative - 2000(110) ++++ mg/dLNOMS HealthcareInterpretation and review of laboratory resultsAbnormalNOMS Healthcare Ketones, UANegativeNegative - 160(16) ++++ mg/dLNOMS HealthcareLeukocytes, UA TraceNegative - 500+++ Cosmo/mcLNONH HealthcareNitrite, UANegativeNegative - PositiveNOMS HealthcarepH, UA6.05 - 9NOMS HealthcareProtein, UATraceNegative - 2000(20) ++++ mg/dLNONH HealthcareSpec Grav, UA1.0201 - 1.03N[facility]S [facility] Urobilinogen, UA2.00.2 - 12 mg/dLNOMS HealthcareNOMS HealthcareGLUCOSE 1 HOURon 76-24-1163Dydebhd [Mass/Vol]114 mg/dLNINF - 130 mg/dLNONH HealthcareCLINISYNC NOMS HealthcareUS OB LIMITED 1+ FETUSESon 40-50-7212DE OB LIMITED 1+ FETUSES FINDINGS: Breech presentation. [...] Delivery: 07/05/25 Gestational Age as of 02/25/2025: 70o6hVhghroupkh macro (dipstick) panel (U)on 69-74-3466Kdbgughqy, UANegativeNegative - 4(70) +++ mg/dLNOMS HealthcareBlood, UANegativeNegative - 50 Cj/mcLNOMS HealthcareClarity, UAClearNOMS Healthcare Color, UAYellowNOMS HealthcareGlucose, UANegativeNegative - 2000(110) ++++ mg/dL NOMS HealthcareInterpretation and review of laboratory resultsNormalNONH HealthcareKetones, UANegativeNegative - 160(16) ++++ mg/dLNONH Healthcare Leukocytes, UANegativeNegative - 500+++ Cosmo/mcLNOMS HealthcareNitrite, UA NegativeNegative - PositiveNONH HealthcarepH, UA6.55 - 9NOMS HealthcareProtein, UANegativeNegative - 2000(20) ++++ mg/dLNOMS HealthcareSpec Grav, UA1.011 - 1.03 NOMS HealthcareUrobilinogen, UA1.00.2 - 12 mg/dLNOMS [facility] Healthcare Urinalysis macro (dipstick) panel (U)on 50-08-1490Uwqdawhej, UANegativeNegative - 4(70) +++ mg/dLNOMS HealthcareBlood, UANegativeNegative - 50 Cj/mcLNOMS HealthcareClarity, UAClearNOMS HealthcareColor, UAYellowNOMS HealthcareGlucose, UANegativeNegative - 1999(110) ++++ mg/dLNOMS HealthcareInterpretation and review of laboratory resultsAbnormalNOMS HealthcareKetones, UANegativeNegative - 160(16) ++++ mg/dLNOMS HealthcareLeukocytes, UAPositiveNegative - 500+++ Cosmo/mcLNOMS HealthcareNitrite, UANegativeNegative - PositiveNOMS HealthcarepH, UA65 - 9NOMS HealthcareProtein, UANegativeNegative - 1999(20) ++++ mg/dLNOMS HealthcareSpec Grav, UA1.0251 - 1.03NOMS HealthcareUrobilinogen, UA1.00.2 - 12 mg/dLNOMS [facility] TroyNONH HealthcareIGP,APTIMA HPV,AGE GDLNon 53-53-6016PCQ GDLN ACOG TESTINGNote.[facility] HealthcareComment on above:TESTS RESULT FLAG UNITS REF RANGE LAB Clinician Provided Cytology Information Source.............Endocervix No. of containers..01 ThinPrep Vial Age Algo ACOG Marina... FLAG LEGEND: L-Low Normal,H-High Normal,LL-Alert Low,HH-Alert High <-Panic Low,>-Panic High,A-Abnormal,AA-Critical Abnormal Performed at: 01 =[address] [facility] [place] [address] Maliha Cobb MD, IGP, RFX APTIMA HPV ASCUNote.NOMS HealthcareComment on above:TESTS RESULT FLAG UNITS REF RANGE LAB DIAGNOSIS: 02 NEGATIVE FOR INTRAEPITHELIAL LESION OR MALIGNANCY. Specimen adequacy: 02 Satisfactory for evaluation. No endocervical component is identified. Performed by: Santi Gregory, Physical Therapy Professor ([facility]) . 02 Note: Note 02 The [...] <-Panic Low,>-Panic High,A-Abnormal,AA-Critical Abnormal Performed at: [address] [address] Maliha Cobb MD, Performed at: = - [facility] [address] [id number] Stock Parts Inspector: Maliha Cobb MD, Phone: [phone] Performed at: [facility] [address] [id number] Stock Parts Inspector: Maliha Cobb MD, Phone: [phone] SPATULA-ALONE ENDOCERVIX CLINISYNCNOMS HealthcareRECURRENT VAGINITIS (HTRX)on 75-86-7409EQSHEBADO VAGINAE 0NOMS HealthcareATOPOBIUM VAGINAENot detectedNOMS HealthcareBVAB 2,3 (BACTERIAL VAGINOSIS ASSOCIATED BACTERIA 2, 3); MOBILUNCUS [id number] HealthcareBVAB 2,3 (BACTERIAL VAGINOSIS ASSOCIATED BACTERIA 2, 3); MOBILUNCUS SPPNot detectedNOMS HealthcareCANDIDA ALBICANS, PARAPSILOSIS, [id number] HealthcareCANDIDA ALBICANS, PARAPSILOSIS, TROPICALISNot detectedNOMS HealthcareCANDIDA GLABRATA0 NOMS HealthcareCANDIDA GLABRATANot detectedNOMS HealthcareCANDIDA [id number] HealthcareCANDIDA KRUSEINot detectedNOMS HealthcareCHLAMYDIA [id number] HealthcareCHLAMYDIA TRACHOMATISNot detectedNOMS HealthcareGARDNERELLA VAGINALIS0 NOMS HealthcareGARDNERELLA VAGINALISNot detectedNOMS HealthcareMEGASPHAERA (TYPES 1, 2)0NOMS HealthcareMEGASPHAERA (TYPES 1, 2)Not detectedNOMS Healthcare MYCOPLASMA OFUEXJRFHQ6EGKD HealthcareMYCOPLASMA GENITALIUMNot detectedNOMS HealthcareNEISSERIA BAZLKKMGYWI1NPLZ HealthcareNEISSERIA GONORRHOEAENot detected NOMS HealthcareTRICHOMONAS [id number] HealthcareTRICHOMONAS VAGINALISNot detectedNOMS HealthcareNOMS HealthcareUS OB 14+ [...] Delivery: 07/05/25 Gestational Age as of 01/14/2025: 19a7zOkhwjevekb macro (dipstick) panel (U)on 67-86-5960Rixbfnxyj, UANegativeNegative - 4(70) +++ mg/dLNOMS HealthcareBlood, UANegativeNegative - 50 Cj/mcLNOMS HealthcareClarity, UAClearNOMS Healthcare Color, UAYellowNOMS HealthcareGlucose, UANegativeNegative - 2000(110) ++++ mg/dL NOMS HealthcareInterpretation and review of laboratory resultsNormalNOMS HealthcareKetones, UANegativeNegative - 160(16) ++++ mg/dLNOMS Healthcare Leukocytes, UANegativeNegative - 500+++ Cosmo/mcLNOMS HealthcareNitrite, UA NegativeNegative - PositiveNOMS HealthcarepH, UA65 - 9NOMS HealthcareProtein, UA NegativeNegative - 2000(20) ++++ mg/dLNONH HealthcareSpec Grav, UA1.021 - 1.03 NOMS HealthcareUrobilinogen, UA1.00.2 - 12 mg/dLNONH HealthcareNOMS Healthcare Urinalysis macro (dipstick) panel (U)on 02-27-0278Lfcclicrv, UANegativeNegative - 4(70) +++ mg/dLNOMS HealthcareBlood, UANegativeNegative - 50 Cj/mcLNONH HealthcareClarity, UAClearNONH HealthcareColor, UAYellowNONH HealthcareGlucose, UANegativeNegative - 2000(110) ++++ mg/dLNONH HealthcareInterpretation and review of laboratory resultsAbnormalTHE [facility] HealthcareKetones, UANegativeNegative - 160(16) ++++ mg/dLTHE [facility] HealthcareLeukocytes, UAPositiveNegative - 500+++ Cosmo/mcLTHE [facility]ITAL HealthcareComment on above:smallNitrite, UANegativeNegative - PositiveNOMS HealthcarepH, UA5.55 - 9NOMS HealthcareProtein, UANegativeNegative - 2000(20) ++++ mg/dLNONH HealthcareSpec Grav, UA1.031 - 1.03NONH Healthcare Urobilinogen, UA0.20.2 - 12 mg/dLNOChildren's Mercy HospitalNOMS HealthcareALL CBC WITH AUTO DIFFon 99-55-2704PLKNPUHYJ ABSOLUTE AUTO0.1NOMS HealthcareBasophils/100 WBC (Bld)0.4 %0.2 - 2.0 %NOMS HealthcareEosinophils/100 WBC (Bld)0.9 %0.9 - 7.0 % [facility] HealthcareErythrocyte distribution width (RBC) [Ratio]13.4 %11.0 - 15.0 % [facility] HealthcareHematocrit (Bld) [Volume fraction]43.2 %36.0 - 48.0 %[facility] HospitalHemoglobin (Bld) [Mass/Vol]15.2 g/dL12.0 - 16.0 g/dLTexas County Memorial Hospital IMMATURE GRANULOCYTES ABS AUTO0.05HighNOChildren's Mercy HospitalImmature granulocytes/100 WBC (Bld)0.4 %0.0 - 0.5 %[facility] HospitalInterpretation and review of laboratory resultsAbnormalTexas County Memorial HospitalLYMPHOCYTES ABSOLUTE AUTO2.3[facility] Lymphocytes/100 WBC (Bld)17.1 %Low20.5 - 60.0 %[facility] HospitalH (RBC) [Entitic mass]29.9 pg26.7 - 34.0 pgRanken Jordan Pediatric Specialty HospitalHC (RBC) [Mass/Vol]35.2 g/dL29.9 - 35.2 g/dLRanken Jordan Pediatric Specialty HospitalV (RBC) [Entitic vol]85 fL81.0 - 99.0 fLTexas County Memorial HospitalMONOCYTES ABSOLUTE AUTO0.7[facility] HospitalMonocytes/100 WBC (Bld)5.5 % 1.7 - 12.0 %[facility] HospitalNEUTROPHILS ABSOLUTE AUTO10.3HighTexas County Memorial Hospital Neutrophils/100 WBC (Bld)75.7 %High43.0 - 75.0 %[facility] HospitalPlatelet mean volume (Bld) [Entitic vol]11.8 fL9.5 - 13.5 fLTexas County Memorial HospitalTB EO #0.1NOMS [facility] VBP472RGWTCenterPointe Hospital RBC5.08NOCenterPointe Hospital WBC13.6HighTexas County Memorial HospitalCLINISYNCNSaint Francis Medical CenterHCG ( test) Ql (U)on 12-05-2024 Interpretation and review of laboratory resultsAbnoChestnut Hill HospitalPreg Test, UrPositiveNegativeSelect Specialty Hospital - Winston-SalemUS OB TRANSVAGINALon 12-05-2024 US OB TRANSVAGINALEXAM: US [...] II, MD, PHD at 06-Dec-2024 08:41:12 AM [facility] TeleradiologyNormalNot AvailableComment on above:Order Comment: US OB TRANSVAGINAL No LMP recorded.Urinalysis macro (dipstick) panel (U)on 73-14-1904Cpikucili, UA NegativeNegative - 4(70) +++ mg/dLNOMS HealthcareBlood, UANegativeNegative - 50 Cj/Beth David HospitalNONH HealthcareClarity, UAClearNONH HealthcareColor, UAYellowNONH HealthcareGlucose, UANegativeNegative - 2000(110) ++++ mg/dLNONH Healthcare Interpretation and review of laboratory resultsAbnormalNONH HealthcareKetones, UANegativeNegative - 160(16) ++++ mg/dLNONH HealthcareLeukocytes, UAPositive Negative - 500+++ Cosmo/Beth David HospitalNONH HealthcareNitrite, UANegativeNegative - Positive NOMS HealthcarepH, UA75 - 9NOMS HealthcareProtein, UAPositiveNegative - 2000(20) ++++ mg/dLNOMS HealthcareSpec Grav, UA1.021 - 1.03NOMS HealthcareUrobilinogen, UA1.00.2 - 12 mg/dLNONH HealthcareNOMS HealthcareCORTISOL 24HR URINEon 14-84-5202Srzdpjih,F,ug/24hr,U26 ug/24 hrNormal6-42Uk HealthcareComment on above:Performed By: #### CORT24 #### [facility] [address] [address] [address] Lucretia ZamudioCortisol,F,ug/L,U10 ug/LNormalUndefinedThe [facility] Comment on above:Performed By: #### CORT24 #### [facility] [address] [address] [address] Lucretia ZamudioCT ABDOMEN WO/W CONon 27-28-0815IV ABDOMEN WO/W CONCLINICAL HISTORY: Blood chemistry abnormal. [...] Electronically authenticated by: YOVANY CLARK Date: 2022-08-27 08:37[facility] SERUMon 30-59-8017Gugxvalnlbkxichiqcqpnh (DHEA)1255 ng/dL Critically csug93-979Tgi [facility] HospitalComment on above:Result Comment: Age 1 - 5 years 0 - 67 6 - 7 years 0 - 110 8 - 10 years 0 - 185 11 - 12 years 0 - 201 13 - 14 years 0 - 318 15 - 16 years 39 - 481 17 - 19 years 40 - 491 >19 years 31 - 701Performed By: #### DHEA. #### [facility] [address] [place] [address] Dr. Lucretia ZamudioTESTOSTERONE, FREE,DIRECT, TOTALon 95-68-0528Wtoz Testosterone(Direct)2.8 pg/mLNormal0.0-4.2Uk HealthcareComment on above: Result Comment: Performed at: BNPerformed By: #### TESTFRD #### [facility] [address] [place] [address] Dr. Lucretia ZamudioTestosterone [Mass/Vol]42 ng/zUUwqdtp74-45Ogr [facility] Comment on above:Result Comment: Performed at: CBPerformed By: #### TESTFRD #### [facility] [address] [place] [address] Dr. Lucretia ZamudioCORTISOL Shiv 76-72-6831Avwqpccv AM23.4 ug/dLCritically high 6.2-19.4The [facility] HospitalComment on above:Performed By: #### PROGES #### [facility] [address] [place] [address] Dr. Lucretia ZamudioDHEA-SULFATEon 51-80-4448BSPY-Rjjvufq437.0 ug/xRXbdcta62.8-378.0 The [facility] HospitalComment on above:Performed By: #### LBCLH #### [facility] [address] [place] [address] Dr. Lucretia VergaraTRADIOLon 77-21-2537Chbvhyvzg269.0 pg/mLNormalThe [facility] HospitalComment on above:Result Comment: Adult Female: Follicular phase 12.5 - 166.0 Ovulation phase 85.8 - 498.0 Luteal phase 43.8 - 211.0 Postmenopausal <6.0 - 54.7 1st trimester 215.0 - >4300.0 Dona ECLIA methodologyPerformed By: #### ESTRADI #### [facility] [address] [place] [address] Dr. Lucretia TanHon 09-21-9741UBI8.0 mIU/mLNormalUk HealthcareComment on above:Result Comment: Adult Female: Follicular phase 3.5 - 12.5 Ovulation phase 4.7 - 21.5 Luteal phase 1.7 - 7.7 Postmenopausal 25.8 - 134.8Performed By: #### LBCFSH #### [facility] [address] [place] [address] Dr. Lucretia ZamudioLUTEINIZING HORMONE (LH)on 80-02-5973JS7.7 mIU/mLNFirelands Regional Medical CenterComment on above:Result Comment: Adult Female: Follicular phase 2.4 - 12.6 Ovulation phase 14.0 - 95.6 Luteal phase 1.0 - 11.4 Postmenopausal 7.7 - 58.5Performed By: #### LBCLH #### [facility] [address] [place] [address] Dr. Lucretia ZamudioPROGESTERONEon 91-28-2514Gbqzonplgikg6.2 ng/mLNFirelands Regional Medical CenterComment on above:Result Comment: Follicular phase 0.1 - 0.9 Luteal phase 1.8 - 23.9 Ovulation phase 0.1 - 12.0 First trimester 11.0 - 44.3 Second trimester 25.4 - 83.3 Third trimester 58.7 - 214.0 Postmenopausal 0.0 - 0.1Performed By: #### PROGES #### [facility] [address] [place] [address] Dr. Lucretia ZamudioFREE T4on 50-08-0297Dpiw T4 [Mass/Vol]1.13 ng/dLNormal0.76-1.46 Uk HealthcareComment on above:Performed By: #### FT4 #### [facility] [address] [place] [address] Dr. Lucretia ZamudioGLYCOHEMOGLOBIN A1Con 43-16-3789HOV RECOMMENDATIONSEE BELOWNormal Uk HealthcareComment on above:Result Comment: ADA RECOMMENDED LIMIT 4.0 - 6.0 ADA THERAPEUTIC TARGET < 7.0 ACTION SUGGESTED > 7.0Performed By: #### PROGES #### [facility] [address] [place] [address] Dr. Lucretia ZamudioGlucose [Mass/Vol]105 mg/dLNormalThPremier HealthComment on above:Performed By: #### PROGES #### [facility] [address] [place] [address] Dr. Lucretia ZamudioHbA1c (Bld) [Mass fraction]5.3 %Normal4.5-6.2The Marion Hospitalment on above:Performed By: #### PROGES #### [facility] [address] [place] [address] Dr. Lucretia ZamudioTSHon 80-72-7488RGH9.971 uIU/mLNormal0.358-3.740The [facility] HospitalComment on above:Performed By: #### TSH #### [facility] [address] [place] [address] Dr. Lucretia ZamudioUS PELVIS AND TRANSVAGon 42-87-0216GB PELVIS AND TRANSVAG EXAMINATION: US PELVIS AND [...] authenticated by: GIA PRESCOTT Date: 2022-08-02 18:42NormalThe [facility] HospitalAMYLASEon 99-86-8012Wtzjzho [Catalytic activity/Vol]50 U/L Khijpc89-576Jvq [facility] on above:Performed By: #### PROGES #### [facility] [address] [place] [address] Dr. Lucretia ZamudioCBC AUTO DIFFon 43-42-4663WDYE #0.1 103/ulNormal0.0-0.1The [facility] on above:Performed By: #### CBC #### [facility] [address] [address] [address] Lucretia ZamudioBasophils/100 WBC (Bld)0.9 %Normal0.2-2.0The [facility] Comment on above:Performed By: #### CBC #### [facility] [address] [place] [address] Dr. Lucretia Lynne #0.4 103/ulNormal0.0-0.7The [facility] HospitalComment on above: Performed By: #### CBC #### [facility] [address] [place] [address] Dr. Lucretia Huntosinophils/100 WBC (Bld)3.4 %Normal0.9-7.0The [facility] Comment on above:Performed By: #### CBC #### [facility] [address] [place] [address] Dr. Lucretia Huntrythrocyte distribution width (RBC) [Ratio]12.7 %Ebtufk94.0-15.0 The [facility] HospitalComment on above:Performed By: #### CBC #### [facility] [address] [place] [address] Dr. Lucretia ZamudioHematocrit (Bld) [Volume fraction]44.1 %Ypnjzo77.0-48.0The [facility] HospitalComment on above:Performed By: #### CBC #### [facility] [address] [place] [address] Dr. Lucretia ZamudioHemoglobin (Bld) [Mass/Vol]14.5 g/gYJyfnom84.0-16.0The [facility] HospitalComment on above:Performed By: #### CBC #### [facility] [address] [place] [address] Dr. Lucretia Gomze #0.03 10e3/ulNormal0.00-0.03The [facility] HospitalComment on above:Performed By: #### CBC #### [facility] [address] [place] [address] Dr. Lucretia Gomez %0.3 %Normal0.0-0.5The [facility] HospitalComment on above: Performed By: #### CBC #### [facility] [address] [address] [address] Lucretia Brush #2.9 103/ulNormal1.2-3.8The [facility] HospitalComment on above:Performed By: #### CBC #### [facility] [address] [address] [address] Lurcetia Worthingtonmphocytes/100 WBC (Bld)24.9 %Sdprul70.5-60.0The [facility] HospitalComment on above:Performed By: #### CBC #### [facility] [address] [place] [address] Dr. Lucretia Krishnan DIFF REQNONormalThe [facility] HospitalComment on above: Performed By: #### CBC #### [facility] [address] [place] [address] Dr. Lucretia Simmons (RBC) [Entitic mass]28.9 ltZktwkk02.7-34.0The [facility] HospitalComment on above:Performed By: #### CBC #### [facility] [address] [place] [address] Dr. Lucretia Simmons (RBC) [Mass/Vol]32.9 g/nPYgzrss69.9-35.2The [facility] HospitalComment on above:Performed By: #### CBC #### [facility] [address] [place] [address] Dr. Lucretia Simmons (RBC) [Entitic vol]87.8 rEUpxvrz30.0-99.0The [facility] HospitalComment on above:Performed By: #### CBC #### [facility] [address] [place] [address] Dr. Lucretia Lemus #0.6 103/ulNormal0.3-0.8The [facility] HospitalComment on above:Performed By: #### CBC #### [facility] [address] [place] [address] Dr. Lucretia Manzoocytes/100 WBC (Bld)5.4 %Normal1.7-12.0The [facility] Comment on above:Performed By: #### CBC #### [facility] [address] [address] [address] Lucretia Waterman #7.6 103/ulCritically high1.4-6.5The [facility] Comment on above:Performed By: #### CBC #### [facility] [address] [place] [address] Dr. Lucretia Wagnerutrophils/100 WBC (Bld)65.1 %Qnqowe23.0-75.0The [facility] HospitalComment on above:Performed By: #### CBC #### [facility] [address] [place] [address] Dr. Lucretia ZamudioPlatelet mean volume (Bld) [Entitic vol]10.0 fLNormal9.5-13.5The [facility] HospitalComment on above:Performed By: #### CBC #### [facility] [address] [place] [address] Dr. Lucretia ZamudioPLT277 103/cgHgqdhd214-672Vvm [facility] HospitalComment on above: Performed By: #### CBC #### [facility] [address] [place] [address] Dr. Lucretia ZamudioRBC5.02 106/ulNormal4.20-5.40The [facility] HospitalComment on above:Performed By: #### CBC #### [facility] [address] [place] [address] Dr. Lucretia ZamudioWBC11.6 103/ulCritically high4.0-11.0The [facility] HospitalComment on above:Performed By: #### CBC #### [facility] [address] [place] [address] Dr. Lucretia ZamudioCULTZA URINEon 15-13-2409VBCZBJD URINECulture Observations: LIGHT GROWTH OF MIXED GENITAL SILVIA. NO POTENTIAL PATHOGENS SEEN.NormalThe [facility] HospitalComment on above:Performed By: #### PROGES #### [facility] [address] [place] [address] Dr. Lucretia ZamudioLIPASEon 10-30-9675Dtzexs [Catalytic activity/Vol]85.0 U/LNormal 73.0-393.0The [facility] HospitalComment on above:Performed By: #### PROGES #### [facility] [address] [place] [address] Dr. Lucretia Shoemaker QUANT HCGon 54-05-9691JEC QUANT1 mIU/mLNormalThe [facility] HospitalComment on above:Performed By: #### PROGES #### [facility] [address] [place] [address] Dr. Lucretia Leyva RANGESEE [facility] CenterComment on above: Result Comment: 5-50 0.2-1 WEEK 50-500 1-2 WEEKS 100-5,000 2-3 WEEKS 500-10,000 3-4 WEEKS 1,000-50,000 4-5 WEEKS 10,000-100,000 5-6 WEEKS 15,000-200,000 6-8 WEEKS 10,000-100,000 2-3 MONTHSPerformed By: #### PROGES #### [facility] [address] [place] [address] Dr. Lucretia ZamudioPROF 14(COMP METB)on 31-98-5279Taltcrm [Mass/Vol]4.0 g/dLNormal 3.4-5.0The [facility] on above:Performed By: #### PROGES #### [facility] [address] [place] [address] Dr. Lucretia ZamudioAlbumin/Globulin [Mass ratio]1.1 {ratio}NormalThe [facility] on above:Performed By: #### PROGES #### [facility] [address] [place] [address] Dr. Lucretia Brunson [Catalytic activity/Vol]98 U/MGzwdsn24-054Ahq [facility] HospitalComhenry ford [facility] on above:Performed By: #### PROGES #### [facility] [address] [place] [address] Dr. Lucretia Mauro [Catalytic activity/Vol]16 U/QOlaunq03-03Rvd [facility] on above:Performed By: #### PROGES #### [facility] [address] [place], [place] [address] Dr. Lucretia Whyte gap [Moles/Vol]9.7 mmol/LNormalThe [facility] HospitalComment on above:Performed By: #### PROGES #### [facility] [address] [address] [address] Lucretia ZamudioAST [Catalytic activity/Vol]15 U/XWpgnbd40-36Uql [facility] HospitalComment on above:Performed By: #### PROGES #### [facility] [address] [address] [address] Lucretia ZamudioBilirubin [Mass/Vol]0.2 mg/dLNormal0.2-1.0The [facility] Comment on above:Performed By: #### PROGES #### [facility] [address] [place] [address] Dr. Lucretia ZamudioCalcium [Mass/Vol]9.5 mg/dLNormal8.5-10.1The [facility] Comment on above:Performed By: #### PROGES #### [facility] [address] [place] [address] Dr. Lucretia ZamudioChloride [Moles/Vol]102 mmol/XRebpow87-272Jrx [facility] Comment on above:Performed By: #### PROGES #### [facility] [address] [place] [address] Dr. Lucretia ZamudioCO2 [Moles/Vol]31.5 mmol/DOxzehu06.0-32.0The [facility] Comment on above:Performed By: #### PROGES #### [facility] [address] [address] [address] Lucretia ZamudioCreatinine [Mass/Vol]0.79 mg/dLNormal0.55-1.02The [facility] HospitalComment on above:Performed By: #### PROGES #### [facility] [address] [address] [address] Lucretia Foster-AF BAHRAINI>60Normal>=60The [facility] HospitalComment on above:Performed By: #### PROGES #### [facility] [address] [place] [address] Dr. Lucretia HuntGFR-NON AF BAHRAINI>60Normal>=60The [facility] HospitalComment on above:Performed By: #### PROGES #### [facility] [address] [place] [address] Dr. Lucretia ZamudioGlobulin (S) [Mass/Vol]3.8 g/dLNormKettering Health Main CampusComment on above:Performed By: #### PROGES #### [facility] [address] [place] [address] Dr. Lucretia ZamudioGlucose [Mass/Vol]95 mg/rPObyyel54-288Gxb [facility] Comment on above:Performed By: #### PROGES #### [facility] [address] [place] [address] Dr. Lucretia ZamudioPotassium [Moles/Vol]4.2 mmol/LNormal3.5-5.1The [facility] Comment on above:Performed By: #### PROGES #### [facility] [address] [place] [address] Dr. Lucretia ZamudioProtein [Mass/Vol]7.8 g/dLNormal6.4-8.2The [facility] Comment on above:Performed By: #### PROGES #### [facility] [address] [place] [address] Dr. Lucretia ZamudioSodium [Moles/Vol]139 mmol/VVrdqqe140-053PhdUk Healthcare Comment on above:Performed By: #### PROGES #### [facility] [address] [place] [address] Dr. Lucretia ZamudioUrea nitrogen [Mass/Vol]12.0 mg/dLNormal7.0-18.0The [facility] HospitalComment on above:Performed By: #### PROGES #### [facility] [address] [place] [address] Dr. Lucretia Gibbs nitrogen/Creatinine [Mass ratio]15.2 mg/mgNormKettering Health Main CampusComment on above:Performed By: #### PROGES #### [facility] [address] [place] [address] Dr. Lucretia Pollack RANDOMon 50-68-5523Dberdlhpk Ql (U)NegativeNormalNEGATIVEUk HealthcareComment on above:Performed By: #### PROGES #### [facility] [address] [address] [address] Lucretia Salesarity (U)CLEARNormalCLEARUk HealthcareComment on above: Performed By: #### PROGES #### [facility] [address] [address] [address] Lucretia Cruz (U)LT. YELLOWNormalYELLOWUk HealthcareComment on above:Performed By: #### PROGES #### [facility] [address] [address] [address] Lucretia ZamudioGlucose Ql (U)NegativeNormalNEGATIVEUk HealthcareComment on above:Performed By: #### PROGES #### [facility] [address] [place] [address] Dr. Lucretia ZamudioHemoglobin Ql (U)NegativeNormalNEGATIVEProtestant Hospital on above:Performed By: #### PROGES #### [facility] [address] [place] [address] Dr. Lucretia ZamudioKetones Ql (U)NegativeNormalNEGATIVEUk HealthcareComment on above:Performed By: #### PROGES #### [facility] [address] [place] [address] Dr. Lucretia ZamudioLEUKOCYTESNegativeNormalNEGATIVEUk HealthcareComment on above:Performed By: #### PROGES #### [facility] [address] [address] [address] Lucretia ZamudioNitrite Ql (U)NegativeNormalNEGATIVEUk HealthcareComment on above:Performed By: #### PROGES #### [facility] [address] [address] [address] Lucretia ZamudiopH (U)7.0 [pH]Normal5-9Uk HealthcareComment on above: Performed By: #### PROGES #### [facility] Laboratory [address] [address] [address] Lucretia ZamudioSPEC GRAVITY1.059Vleocr6.005-<=1.025The [facility] HospitalComment on above:Performed By: #### PROGES #### [facility] Laboratory [address] [address] [address] Lucretia Pollack PROTEINNegativeNormalNEGATIVE/ TRACEThe [facility] Comment on above:Performed By: #### PROGES #### [facility] Laboratory [address] [address] [address] Lucretia Davidbilinogen Qn (U)0.2 {Tommie'U}/dLNormal0.2 - 1.0The [facility] HospitalComment on above:Performed By: #### PROGES #### [facility] Laboratory [address] [address] [address] Lucretia ZamudioPhysical Therapy Noteon 49-97-0077Pckpgpyk Therapy Note [id number]#1.00[facility] Coding Summaryon 83-98-1222Uxpwrm SummaryHTMLBase 64 JyofbwyoLWl2qUd+PGhlYWQ+MX3ZBOMbZ34swRJwrG7OK5iAJF4SANNKAHMTZO9FQC6uxYX2NGchI1Ay biAv [file] PSd (more content not included)...[facility] HospitalProvider Orderson 22-51-7206Nmdpemip [id number]#1.00OTPremier Health Miami Valley Hospital NorthConsent Formson 69-55-1547Bpkpdze Forms [id number]#1.00[facility] Physical Therapy Noteon 22-98-5984Piymofux Therapy Note [id number]#1.00[facility] Provider Orderson 54-00-0558Oyukipng Orders [id number]#1.00[facility] Coding Summaryon 12-53-4543Yxqypd SummaryHTMLBase 64 QlfywizfANp4rHj+PGhlYWQ+LK2KBGCxJ37lqCJklQ8JR1gJID8LUNRTZGNSOU5OQK3cmQQ2UTywH2Pq biAv [file] PSd (more content not included)...[facility] HospitalRad - MRI Reporton 61-21-2274Uli - MRI [id number]#1.00OTGTIFF [facility] Vital Signs Date TimeVital SignValuePerforming AryxyxchdWfbvjckt53-82-7681 13:19-0400Body mass index (BMI) [Ratio]34.36 kg/v8Efcus Angel DO Work Phone: 1(752)366-[address] [place], [place] [address]Klcqeppdyj57-00-6974 13:19-0400Body nxetfw130.51 kgCorey Angel DO Work Phone: 1(930)699-[address] [place], [place] [address]Kyaucazves37-89-7271 13:19-0400Diastolic blood mm[Hg]Junito Angel DO Work Phone: [phone] [place], [place] [address]Ggickegppu88-18-6181 13:19-0400Systolic blood mm[Hg]Junito Angel DO Work Phone: 9(526)437-[address] [place], [place] [address]Bmichjygxe97-63-4826 14:29-0400Body mass index (BMI) [Ratio]33.15 kg/g0Eghut Angel DO Work Phone: [phone] [place], [place] [address]Hxykacskid68-50-0033 14:29-0400Body kqssai89.88 kgCorey Angel DO Work Phone: [phone] HospitalNktokszctd96-94-5197 14:29-0400Diastolic blood mm[Hg]Junito Angel DO Work Phone: [phone] [place], [place] [address]Mzcmubhwlt39-48-1292 14:29-0400Systolic blood kfxhuaei112 mm[Hg]Junito Angel DO Work Phone: 1([phone])003-[facility] HospitalXsfocblvpe88-82-2862 10:06-0400Body mass index (BMI) [Ratio]31.75 kg/x1FgugtcfqInna Kirkland HOUSING MANAGER Work Phone: 1(232)440-[address] [place], [place] [address]Wwgxrgpaik42-74-5174 10:06-0400Body .71 kgInna Kirkland HOUSING MANAGER Work Phone: 1(867)734-[address] [place], [place] [address]Hvzrhgkfwi12-24-1701 10:06-0400Diastolic blood trfgbuwg05 mm[Hg]Inna Kirkland HOUSING MANAGER Work Phone: 1(618)937-[address] [place], [place] [address]Octgfxrrxu01-11-3578 10:06-0400Systolic blood ozrblfhw314 mm[Hg]Inna Kirkland HOUSING MANAGER Work Phone: 1(630)[facility] [place], [place] [address]Boxaqbwzpp15-66-3571 14:59-0400Body mass index (BMI) [Ratio]30.99 kg/e6Zbvaj Angel DO Work Phone: 1(195)[facility] [place], [place] [address]Wijnropebc88-76-5020 14:59-0400Body .44 kgCorey Angel DO Work Phone: 1(068)[facility] [place], [place] [address]Tlnfpxxgpj16-92-9601 14:59-0400Diastolic blood rdpebjrb29 mm[Hg]Junito Angel DO Work Phone: 1(123)[facility] [place], [place] [address]Kneyyhuzql39-60-1155 14:59-0400Systolic blood ytaubxkn250 mm[Hg]Junito Angel DO Work Phone: 1(662)[address] [place], [place] 2917806-25-2025 13:39-0400Body mass index (BMI) [Ratio]29.73 kg/z6Btiiy Angel DO Work Phone: 1(347)[address] [place], [place] 2917806-25-2025 13:39-0400Body .68 kgCorey Angel DO Work Phone: 1(276)[facility] [place], [place] [address]Nfrvdkdqpr71-97-1518 13:39-0400Diastolic blood tsjiviuw85 mm[Hg]Junito Angel DO Work Phone: 1(575)[facility] [place], [place] [address]Ygxlasznng34-52-1993 13:39-0400Systolic blood kasxoeiu644 mm[Hg]Junito Angel DO Work Phone: 1(420)[address] [place], [place] 2917807-02-2024 12:30-0400Body .45 cmAPRYamilka Crocketterwhit Work Phone: [phone] [place], [place] 9563807-02-2024 12:30-0400 Body mass index (BMI) [Ratio]31.6 kg/m2YANELI Crocketterwhit Work Phone: 1(103)[address] [place], [place] 9563807-02-2024 12:30-0400 Body .8 [degF]YANELI Crocketterwhit Work Phone: 1(244)[address] [place], [place] 9563807-02-2024 12:30-0400 Body urzchz46.98 kgYANELI Ding Work Phone: 1(813)[address] [place], [place] 9563807-02-2024 12:30-0400 Diastolic blood vfbonhne83 mm[Hg]YANELI Crocketterwhit Work Phone: 1(982)[address] [place], [place] 9563807-02-2024 12:30-0400 Heart rate69 /minYANELI Crocketterwhit Work Phone: 1(549)[address] [place], [place] 9563807-02-2024 12:30-0400 Respiratory rate20 /minYANELI Crocketterwhit Work Phone: 1(945)[address] [place], [place] 9563807-02-2024 12:30-0400 SaO2% (BldA) [Mass fraction]99 %YANELI Crocketterwhit Work Phone: 1(920)[address] [place], [place] 9563807-02-2024 12:30-0400 Systolic blood akopouwp529 mm[Hg]YANELI Crocketterwhit Work Phone: 1(500)[address] [place], [place] 9563806-05-2024 08:58-0400 Body lzlofz707.45 [facility]06-05-2024 08:58-0400Body mass index (BMI) [Ratio]31.6 kg/r8CgrmkvqaxK[facility]tering Health [facility]06-05-2024 08:58-0400Body .98 kgK[facility]03-27-2024 11:00-0400Body .45 cmK[facility]03-27-2024 11:00-0400Body mass index (BMI) [Ratio]31.6 kg/r9JrhbtzqhgKettering Health [facility]03-27-2024 11:00-0400Body ybzhbgqiwrz24 [degF][facility]03-27-2024 11:00-0400Body mazwan82.98 kgK[facility] 09-19-2023 11:00-0400Diastolic blood dyccbscn19 mm[Hg][facility]03-27-2024 11:00-0400Heart rate80 /[facility] 09-19-2023 11:00-0400Respiratory rate20 /[facility] 09-19-2023 11:00-6246OvQ4% (BldA) [Mass fraction]98 %[facility]03-27-2024 11:00-0400Systolic blood sqdfmomc283 mm[Hg][facility]03-13-2024 09:42-0400Body .7 Serg DUONGC Work Phone: [facility] [employer] Gltotv92-99-6106 09:42-0400Body mass index (BMI) [Ratio]30.79 kg/i0SwamthrTy CRISTINA-C Work Phone: [facility] Ucpjoi24-35-1027 09:42-0400Body fvrufe17.85 kgTy CRISTINA-C Work Phone: [facility] Eyeunh20-81-1111 09:42-0400Diastolic blood ossxkubb77 mm[Hg]Ty CRISTINA-C Work Phone: [facility] Yotvem23-24-7367 09:42-0400Heart rate 73 /minTy CRISTINA-C Work Phone: [facility] [employer] Xlfeeo76-17-6148 09:42-0400Systolic blood kruvtmwu027 mm[Hg]Ty CRISTINA-C Work Phone: [facility] Bqdvuj43-99-2346 17:00-0500Body xidflh493.45 cmDana Easterwood Other [employer] Other 12-06-2023 08:00-0500Body lxotzz184.45 cmDana Easterwood Other [employer] Other 12-06-2023 08:00-0500Body mass index (BMI) [Ratio] 33.48 kg/m2Dana Bonerregina Other [employer] Other 12-06-2023 08:00-0500Body pazywhusooq04.2 [degF]Nelida Bonerwood Other [employer] Other 12-06-2023 08:00-0500Body okcdbz52.43 kgDana Bonwhit Other [employer] Other 12-06-2023 08:00-0500Diastolic blood jswbdlai95 mm[Hg] Nelida Easterwood Other [employer] Other 12-06-2023 08:00-0500Respiratory rate20 /minDana Easterwood Other [employer] Other 12-06-2023 08:00-4708KxP5% (BldA) [Mass fraction]99 % Nelida Easterwood Other [employer] Other 12-06-2023 08:00-0500Systolic blood mm[Hg] Nelida Easterwood Other [employer] Other 09-11-2023 10:30-0400Body auqdrn310.45 cmDana Bonerwhit Other [employer] Other 09-11-2023 10:30-0400Body mass index (BMI) [Ratio] 33.33 kg/m2Dana Easterwood Other [employer] Other 09-11-2023 10:30-0400Body qzppnqycsmo33 [degF]Nelida Easterwood Other [employer] Other 09-11-2023 10:30-0400Body wluygr27.98 kgDana Easterwood Other [employer] Other 09-11-2023 10:30-0400Diastolic blood trvwsrpe53 mm[Hg] Nelida Easterwood Other [employer] Other 09-11-2023 10:30-0400Respiratory rate20 /minDana [facility] Other [employer] Other 09-11-2023 10:30-1521BrZ2% (BldA) [Mass fraction]99 % Nelida Easterwood Other [employer] Other 09-11-2023 10:30-0400Systolic blood kbodyapu770 mm[Hg] Nelida Easterwood Other [employer] Other 08-30-2023 11:00-0400Body mxmmpy779.45 cmDana Easterwood Other [employer] Other 08-30-2023 11:00-0400Body mass index (BMI) [Ratio] 33.48 kg/m2Dana Easterwood Other [employer] Other 08-30-2023 11:00-0400Body aukxkourxtt74.9 [degF]Nelida Ding Other [employer] Other 08-30-2023 11:00-0400Body aepzgy56.43 kgDamanisha Ding Other [employer] Other 08-30-2023 11:00-0400Diastolic blood jtfrnelc71 mm[Hg] Nelida Ding Other [employer] Other 08-30-2023 11:00-0400Respiratory rate20 /minDjeromy Ding Other [employer] Other 08-30-2023 11:00-2978NzD1% (BldA) [Mass fraction]98 % Nelida Ding Other [employer] Other 08-30-2023 11:00-0400Systolic blood qyskyvsn722 mm[Hg] Nelida Ding Other [employer] Other Encounters Encounter DateEncounter TypeCare ProviderFacilityStart: 27-02-9166yelnmutlcu Inna EbivanlyFacility:[facility] Centertart: 04-29-2025 End: 37-44-8581Dqyftkwr flow sheetCorey Angel DO Work Phone: [facility] [place] OBGYNComment on above:Third trimester ([facility]); 30 weeks gestation of ([facility])Start: 04-29-2025 End: 54-28-9302ituyofthxeMFDVL FAZIONot AvailableStart: 04-22-2025 End: 20-12-8280Chgaxagpk Result EncounterCorey Angel DO Work Phone: NOXD External Department UnsolicitedStart: 04-22-2025 End: 81-61-1186Cnjdkdrkd Result EncounterCorey Angel DO Work Phone: noms External Department UnsolicitedStart: 04-15-2025 End: 91-91-4914Rafahv flowsheetCorey Angel DO Work Phone: NOGK [place] OBGYNStart: 04-15-2025 End: 42-59-1079Jxgkjd flowsheetCorey Angel DO Work Phone: NONB [facility] OBGYNStart: 04-15-2025 End: 70-55-8516Qdlglmbc flow sheetCorey Angel DO Work Phone: NOSZ [place] OBGYNComment on above:Third trimester ([facility]); 28 weeks gestation of ([facility]); size inconsistent with dates ([facility]); Racing heart beatStart: 04-15-2025 End: 55-72-1806mwpbzohkdmXTHIN FAZIONot AvailableStart: 04-01-2025 End: 17-17-3928Uzccofrjb Result EncounterInna Kirkland NP Work Phone: NOBD External Department UnsolicitedStart: 04-01-2025 End: 47-63-2349Eoittvcly Result EncounterInna Kirkland NP Work Phone: noms External Department UnsolicitedStart: 03-18-2025 End: 08-92-4140Ozvbtdhl flow sheetCorey Angel DO Work Phone: [facility] [place] OBGYNComment on above:Second trimester ([facility]); 24 weeks gestation of ([facility]); Diabetes mellitus screeningStart: 03-18-2025 End: 22-43-9505siiqoxxlctLGNWV FAZIONot AvailableStart: 02-18-2025 End: 47-39-0810Jqrvtmvq flow sheetInna Kirkland NP Work Phone: [facility] [place] OBGYNComment on above:Nausea and vomiting in ([facility]) (Primary Dx); Second trimester ([facility]); 20 weeks gestation of ([facility]); Elevated heart rate with elevated blood pressure without diagnosis of hypertensionStart: 02-18-2025 End: 07-65-1290sarnlcorkrHHQXRWHP EBERLYNot AvailableStart: 02-18-2025 End: 77-38-0727hgiynpvycaYRMIU FAZIONot AvailableStart: 01-14-2025 End: 62-15-5565Ukbszcc encounter procedureCorey Angel DO Work Phone: noms HealthcareStart: 01-14-2025 End: 91-48-9928Cmhdgssf preventive med est patient 18-39 yrsCorey Angel DO Work Phone: [facility]oms [facility] OBComment on above:15 weeks gestation of ([facility]); Second trimester ([facility]); Gastroesophageal reflux disease with esophagitis, unspecified whether hemorrhage; Screening, , for anatomic survey ([facility]); Exposure to STD; Vaginal discharge; Well woman exam with routine gynecological exam; Nausea and vomiting in ([facility]); related fatigue in second trimester ([facility]); Insomnia, unspecified type; Other migraine with status migrainosus, not intractableStart: 01-14-2025 End: 03-96-4543usfkzwgneoYAEXG FAZIONot AvailableStart: 01-14-2025 End: 56-57-2786Tebezc flowsheetCorey Angel DO Work Phone: noms BCP OBStart: 01-14-2025 End: 30-79-0255Sljfor flowsheetCorey Angel DO Work Phone: noms BCP OBStart: 01-14-2025 End: 07-26-8430Wyfxagcgn Result EncounterCorey Angel DO Work Phone: noms External Department UnsolicitedStart: 01-14-2025 End: 52-71-9232Qcoadqmv Result EncounterCorey Angel DO Work Phone: noms External Department UnsolicitedStart: 12-17-2024 End: 09-13-9888Gddkrb flowsheetCorey Angel DO Work Phone: [facility]OM[facility] BCP OBStart: 12-17-2024 End: 78-65-3674Uogghy flowsheetCorey Angel DO Work Phone: [facility] BCP OBStart: 12-17-2024 End: 43-23-0273Tihyezhm flow sheetCorey Angel DO Work Phone: noMS BCP OBComment on above:11 weeks gestation of ([facility]); First trimester ([facility]); Nausea and vomiting in ([facility]); Gastroesophageal reflux disease with esophagitis, unspecified whether hemorrhage; Meconium aspiration in child of prior , currently , unspecified trimester ([facility])Start: 12-17-2024 End: 36-89-4462ldpwclhsxxUWBZZ FAZIONot AvailableStart: 12-10-2024 End: 02-20-7111Nhzfqmsip Result EncounterCorey Angel DO Work Phone: noms External Department UnsolicitedStart: 12-10-2024 End: 37-41-2147Myroamymr Result EncounterCorey Angel DO Work Phone: noMS External Department UnsolicitedStart: 12-05-2024 End: 70-26-7034Yqvvlk outpatient visit 5 minutesNoms Bcp Ob Angel NurseNOMS BCP OBComment on above:GA: 3a2rKfutl: 12-05-2024 End: 51-44-6684vacxinztweFRAWK FAZIONot AvailableStart: 07-03-2024 End: 28-54-0392MgdjptAyttlmaYamilex Stratton PA-C Work Phone: [facility] NeurologyComment on above: Migraine without aura and without status migrainosus, not intractableStart: 12-25-2023 End: 17-90-0850pnhmxinzyjLAAK [facility]ida [facility] Work Phone: [facility] Work Phone: Start: 12-25-2023 End: 83-56-0569Hppjmfh encounter procedureAPRYamilka [facility] Work Phone: [facility] Work Phone: Start: 97-62-1500Fmp-patient / Non-visitYANELI [facility] Work Phone: [facility] Work Phone: Start: 12-05-2023 End: 11-41-6586vwyecxocqrMUUE Dana J [facility] Work Phone: [facility] Work Phone: Start: 12-05-2023 End: 21-41-3081Guhbppar ReferredYANELI Mendoza [facility] Work Phone: [facility]-LAB Path Spec [facility] HospStart: 11-28-2023 End: 44-18-9485svoumiaemrVxgsovgwvOhioHealth [facility] Medical Center Work Phone: Start: 11-28-2023 End: 60-56-9581Kmtvpkq encounter procedureUn[facility] Work Phone: Start: 09-19-2023 End: 92-91-0041vdbhxivqiwPpzhjgaowOhioHealth Grant Medical Center Work Phone: Start: 09-19-2023 End: 47-07-0357Idjihav encounter procedureUn[facility] Health [facility] GroupWest [facility] Work Phone: Start: 09-05-2023 End: 23-72-6766jbmjidzmibYQMYAGJ C HAMILTONProMedica Flower Hospitalgay Alta Bates Campustart: 09-05-2023 End: 34-98-4704Fkibvr outpatient visit 25 minutesAnthaleksey Stratton PA-C Work Phone: [facility]icians NeurologyComment on above: Migraine without aura and without status migrainosus, not intractable (Primary Dx); Vestibular migraine; Pineal gland cyst; Hx of concussion; Daytime somnolenceStart: 25-73-8072Xau-patient / Non-visitFirtonia [facility] Work Phone: Start: 07-16-2023 End: 29-40-7114xbymbnubjvEelj [facility] Other [employer] Other Start: 03-60-7157Agmpbyiyj encounterDana [facility] Family [facility] Centeromment on above:WEENING OFF QULIPTAStart: 07-09-2023 Patient encounter procedureBelle Physician Group-Start: 06-06-2023 End: 01-60-5512xwhnqkvhpgQzja [facility] Other [employer] Other Start: 15-92-8398GY ONLINE E/M JOHAN DICKINSON 05-14Dana [facility]: 72-45-0828Cxmvfaput encounterDana [facility] Barretart: 05-30-2023 End: 23-13-7354ushlemprtyYilx [facility] Other [employer] Other Start: 61-40-9177Slzfiw outpatient visit 25 minutes Nelida [facility] Ranchotart: 05-25-2023 End: 00-85-7232nuidhwhiicFphl [facility] Other [employer] Other Start: 46-78-6965Wluevieus encounterDana [facility]retart: 05-03-2023 End: 46-82-3403hveoanpngsIxvh [facility] Other [employer] Other Start: 13-84-0651Kjyrbyktu encounterDana [facility]retart: 03-05-2023 End: 15-59-0842cplsidjxguShpz [facility] Other [employer] Other Start: 36-85-9543Ctrtss outpatient visit 25 minutes Nelida [facility] CenterkStart: 02-21-2023 End: 31-40-4392keloetvvitNrvd [facility] Other [facility] [employer] Other Start: 02-20-4813Gdkuwo outpatient visit 40 minutes Nelida [facility] CenterkStart: 37-61-3217Qvlagcbnv encounter Nelida [facility] Ranchotart: 11-01-2022 End: 02-96-0563ycjitvhakbMO JUNITO ANGEL .Facility:S3Xejyr: 09-06-2022 End: 89-91-3524dvmdhusewhAP JUNITO ANGEL .Facility:K4Kgugp: 08-26-2022 End: 01-28-4551sgsswxitmrOQ JUNITO ANGEL .Facility:S1Iepjm: 08-02-2022 End: 07-09-4221rodkpyubccIX JUNITO ANGEL .Facility:Y3Natur: 07-12-2022 End: 82-79-0662tuadxcjovxIP GIA Yocility:H1 Procedures DateProcedureProcedure DetailPerforming ClinicianStart: 69-77-2337Vguqx dip stick/tablet rgnt non-auto w/o micrscpCorey Angel DO Work Phone: Start: 95-38-6318FT ECHO DOPPLER COMPLETECorey Angel DO Work Phone: Start: 15-46-3556NWY 12-LEADCorey Angel DO Work Phone: Start: 35-86-2017Malxx dip stick/tablet rgnt non-auto w/o micrscpCorey Angel DO Work Phone: Start: 32-92-8759ADWJROA 1 HOURInna Kirkland HOUSING MANAGER Work Phone: Start: 64-16-4016Mckll dip stick/tablet rgnt non-auto w/o micrscpInna Kirkland HOUSING MANAGER Work Phone: Start: 88-31-5662Mmbyz dip stick/tablet rgnt non-auto w/o micrscpInna Kirkland HOUSING MANAGER Work Phone: Start: 31-72-1564HOWQCSXEH VAGINITIS (HTRX)Junito Angel DO Work Phone: Start: 42-47-9528Ykrji dip stick/tablet rgnt non-auto w/o micrscpCorey Angel DO Work Phone: Start: 65-31-4180WVZ,APTIMA HPV,AGE GDLNCorey Angel DO Work Phone: Start: 10-53-9685Vsbbb dip stick/tablet rgnt non-auto w/o micrscpCorey Angel DO Work Phone: Start: 30-73-9426SMB CBC WITH AUTO DIFFCorey Angel DO Work Phone: Start: 12-05-2024 End: 88-56-1851Axhfx dip stick/tablet rgnt non-auto w/o micrscpCorey Angel DO Work Phone: Start: 22-83-8430Szocdo-up visitFollow-Janeth STRATTONStart: 61-92-7854Vmhhm depression screening assessmentElmore Community Hospital [facility]en Plan of Treatment DateCare ActivityDetailAuthorStart: 05-13-2025 End: 23-50-6187Jfhyzon encounter qrfcposqf35/19/2025 1:20 PM EST Routine NATALEI KEARNS [address] [place], [id number] Nicole Ghosh PA [address] [place] [address] [facility]BGYNStart: 04-29-2025 End: 92-11-1709Bqbckxs encounter sbuhqcmio14/05/2025 1:30 PM EST Routine [facility] [place] [facility] [address], [id number] Junito Ortiz, DO [address] [place] [address] [facility]BGYNStart: 04-29-2025 End: 74-29-0514Vpoouqbbcfru / ancillary services jvkbotmgol46/05/2025 1:00 PM EST Ancillary Procedure [facility] [address] [id number] [facility] [place] [facility]BGYNStart: 04-15-2025 End: 50-08-8712Snaqxuuohpvgtz 2D completeEchocardiogram 2D complete Echocardiography Routine Racing heart beat Expected: 04/15/2025 (Approximate), Expires: 04/15/2027[facility] Work Phone: comment on above:Expected: 04/15/2025 (Approximate), Expires: 04/15/2027Start: 04-15-2025 End: 31-18-0704MU for pregnancyUS OB follow up transabdominal approach Imaging Routine size inconsistent with dates ([facility]) Expected: 04/15/2025, Expires: 08/16/2025NONH HealthcareComment on above:Expected: 04/15/2025, Expires: 08/16/2025Start: 04-15-2025 End: 29-74-3498Wmsbllm encounter procedureNOMS [place] OBGYNComment on above: ArrivedStart: 03-18-2025 End: 77-18-1813Bxyctjm encounter rbnnrvsyt18/24/2025 2:20 PM EDT Routine [facility] [address], [id number] Junito Ortiz, DO [address] [place] [address] NATALIE [place] OBGYNStart: 03-18-2025 End: 45-58-2127ZLC panel - Blood by Automated countCBC Lab Routine Diabetes mellitus screening Expected: 03/18/2025 (Approximate), Expires: 03/18/2026[facility] Work Phone: comment on above:Expected: 03/18/2025 (Approximate), Expires: 03/18/2026Start: 03-18-2025 End: 38-35-9889Fqnxdbayvwq of glucose 1 hour after glucose challenge for glucose tolerance testGlucose tolerance, 1 hour Lab Routine Diabetes mellitus screening Expected: 03/18/2025 (Approximate), Expires: 03/18/2026[facility] HealthcareComment on above:Expected: 03/18/2025 (Approximate), Expires: 03/18/2026Start: 55-43-2212FXFQS-19 Vaccine ( season)COVID-19 Vaccine ()[facility]-7563As[facility] Start: 02-18-2025 End: lead ECGECG 12 lead unit performed ECG Routine Elevated heart rate with elevated blood pressure without diagnosis of hypertension Expected: 02/18/2025 (Approximate), Expires: 02/18/2026[facility] Work Phone: comment on above:Expected: 02/18/2025 (Approximate), Expires: 02/18/2026Start: 02-18-2025 End: 13-85-2987Ayyabpk encounter procedureNOMS [facility] OBStart: 02-18-2025 End: 83-92-1528Xfvwjqjqtxwg / ancillary services managementNOMS BCP OBStart: 01-14-2025 End: 62-32-7144Gvhfbjm encounter xpcvacxbn25/23/2025 2:40 PM EDT Routine [facility] [address] [place] [id number] Junito Ortiz, DO [address] [place], [place] [id number] N[facility] BCP OBStart: 01-14-2025 End: 88-11-1454Iamfl fetoprotein, maternalAlpha fetoprotein, maternal Lab Routine Second trimester ([facility]) Expected: 01/14/2025 (Approximate), Expires: 03/17/2025[facility] HealthcareComment on above:Expected: 01/14/2025 (Approximate), Expires: 03/17/2025Start: 01-14-2025 End: 29-10-2372OC for pregnancyUS OB 14+ weeks anatomy scan Imaging Routine Screening, , for anatomic survey ([facility]) Expected: 01/14/2025, Expires: 04/16/2025NONH HealthcareComment on above:Expected: 01/14/2025, Expires: 04/16/2025Start: 12-17-2024 End: 69-30-7808Rsjawgn encounter procedureNOKAISER FOUNDATION HOSPITAL OBComment on above:Arrived Start: 12-05-2024 End: 11-31-9298PWJ/RhABO/Rh Lab Routine Missed menses , unspecified gestational age ([facility]) Expected: 12/05/2024 (Approximate), Expires: 12/05/2025NONH HealthcareComment on above:Expected: 12/05/2024 (Approximate), Expires: 12/05/2025Start: 12-05-2024 End: 97-48-3756Qurpy type and Indirect antibody screen panel - BloodType and screen Lab Routine Missed menses , unspecified gestational age ([facility]) Expected: 12/05/2024 (Approximate), Expires: 12/05/2025[facility] Healthcare Work Phone: comment on above:Expected: 12/05/2024 (Approximate), Expires: 12/05/2025Start: 12-05-2024 End: 69-42-2626Fylmy of abuse panel - Urine by Screen methodRapid drug screen, urine Lab Routine , unspecified gestational age ([facility]) Encounter for supervision of normal first in first trimester ([facility]) Expected: 12/05/2024 (Approximate), Expires: 12/05/2025NONH HealthcareComment on above: Expected: 12/05/2024 (Approximate), Expires: 12/05/2025Start: 12-05-2024 End: 12-70-5742Cvfqazjhggb [Mass/volume] in Serum or PlasmaTransferrin Lab Routine Dizzy Lightheaded Expected: 12/05/2024 (Approximate), Expires: 12/05/2025[facility] HealthcareComment on above:Expected: 12/05/2024 (Approximate), Expires: 12/05/2025Start: 77-60-8444Oruzl BMI ScreeningAdult BMI Screening [facility]: 30-00-0757Wxnzogr ScreeningTobacco Screening [facility]: 15-49-4854Xrvya BMI ScreeningAdult BMI Screening [facility]: 76-23-8545Xjablcqjfv ScreeningDepression Screening [facility] SystemStart: 59-00-6454Wpnfrph ScreeningTobacco Screening [facility]: 03-58-6936Uflqlvmip vaccinationInfluenza Vaccine [facility]: 12-12-2023 End: 74-54-2897Ozltjor encounter uldkstczi26/19/2024 9:00 AM EDT Office Visit [facility] [address] [facility] [address] Ty Stratton, ABEBE [address] [place] [address] [facility] Start: 12-06-2023 End: 90-22-2860FA Brain WO contrastMR brain without contrast Imaging Routine Migraine without aura and without status migrainosus, notintractable Vestibular migraine Pineal gland cyst Expected: 12/06/2023 (Approximate), Expires: 09/04[facility] Work Phone: Comment on above:Expected: 12/06/2023 (Approximate), Expires: 09/04/2024Start: 10-31-2023 End: 37-01-8107Auebrsh encounter qpgoyisaj82/08/2024 8:45 AM EDT Office Visit [facility] [address] [place] [address] Jani Mir MD [address] [place] [address] [facility]ocr[facility]ologyStart: 10-24-2023 End: 02-68-7028Qfbnody encounter wvmujorxt18/01/2024 10:00 AM EDT Office Visit [facility] [address] [id number] Megan Lopez APRN-MACHINE TESTER [address] [facility] [address] [place] [address] [facility]/Sleep MedicineStart: 09-05-2023 End: 22-15-3509Rrdmftq encounter imciodgna86/13/2024 9:30 AM EDT Office Visit [facility] [address] [place] [address] Ty Stratton PA-C [address] [place] [address] [facility] Start: 08-01-2023 End: 80-83-0570Kjkqrzu encounter mvsmglrqu41/07/2024 10:30 AM EST Office Visit [facility] [address] [place] [address] Jani Mir MD [address] [place] [address] [facility] EndocrinologyStart: 67-64-9134Ercllgdhc vaccinationInfluenza Vaccine [facility] SystemStart: 36-14-9530ENI Vaccines (1 - 3-dose SCDM series)HPV Vaccines (1 - 3-dose SCDM series)[facility] HealthcareStart: 76-94-9521Vfpylltzd for malignant neoplasm of cervixPap SmearOhioHealth Mansfield Hospital SystemStart: 12-19-2014 DTaP,Tdap and Td Vaccines (1 - Tdap)DTaP,Tdap and Td Vaccines (1 - Tdap) [facility] SystemStart: 73-40-5952Dnkxxwnze B Vaccines (1 of 3 - 19+ 3- dose series)Hepatitis B Vaccines (1 of 3 - 19+ 3-dose series)[facility] Start: 98-93-1599Ipovr BMI Follow Up PlanAdult BMI Follow Up PlanOhioHealth Mansfield Hospital SystemStart: 80-05-2788Ujvqopd of varicella vaccinationVaricella Vaccines (1 of 2 - 13+ 2-dose series)[facility] HealthcareStart: 85-93-4748BOqI/Tdap/Td Vaccines (1 - Tdap)DTaP/Tdap/Td Vaccines (1 - Tdap)[facility] HealthcareStart: 75-06-1984FAF Vaccines (1 of 1 - Standard series)MMR Vaccines (1 of 1 - Standard series)[facility] HospitalBacteria identified in Urine by CultureUrine culture Microbiology Routine Missed menses Ordered: 12/05/2024[facility] HealthcareComment on above:Ordered: 12/05/2024BC W Auto Differential panel - BloodCBC and differential Lab Routine Missed menses , unspecified gestational age ([facility]) Ordered: 12/05/2024[facility] HealthcareComment on above:Ordered: 12/05/2024 CHLAMYDIA TRACHOMATIS (GENITO/STI)CHLAMYDIA TRACHOMATIS (GENITO/STI) Lab Routine Exposure to STD Ordered: 01/14/2025[facility] HealthcareComment on above:Ordered: 01/14/2025ytology Cervical or vaginal smear or scraping studyPap Smear Pathology and Cytology Routine Well woman exam with routine gynecological exam Ordered: 01/14/2025[facility] HealthcareComment on above:Ordered: 01/14/2025Ferritin [Mass/volume] in Serum or PlasmaFerritin Lab Routine Dizzy Lightheaded Ordered: 12/05/2024[facility] HealthcareComment on above:Ordered: 12/05/2024Hemoglobin A1c/Hemoglobin.total in BloodHemoglobin A1c Lab Routine Missed menses , unspecified gestational age ([facility]) Ordered: 12/05/2024[facility] HealthcareComment on above:Ordered: 12/05/2024Hepatitis B virus surface Ag [Presence] in Serum or Plasma by ImmunoassayHepatitis B surface antigen Lab Routine Missed menses , unspecified gestational age ([facility]) Ordered: 12/05/2024[facility] HealthcareComment on above:Ordered: 12/05/2024Hepatitis C virus Ab [Presence] in Serum or Plasma by ImmunoassayHepatitis C antibody Lab Routine Missed menses , unspecified gestational age ([facility]) Ordered: 12/05/2024[facility] HealthcareComment on above:Ordered: 12/05/2024HIV-1/HIV-2 antigen/antibody combination immunoassayHIV-1 and HIV-2 antibodies Lab Routine Missed menses , unspecified gestational age ([facility]) Ordered: 12/05/2024[facility] HealthcareComment on above:Ordered: 12/05/2024Neisseria gonorrhoeae DNA [Presence] in Unspecified specimen by HANNAH with probe detectionNeisseria gonorrhea DNA probe, direct Lab Routine Exposure to STD Ordered: 01/14/2025[facility] HealthcareComment on above:Ordered: 01/14/2025Reagin Ab [Presence] in Serum by RPRRPR Lab Routine Missed menses , unspecified gestational age ([facility]) Ordered: 12/05/2024[facility] HealthcareComment on above:Ordered: 12/05/2024 Rubella antibody, IgGRubella antibody, IgG Lab Routine Missed menses , unspecified gestational age ([facility]) Ordered: 12/05/2024[facility] HealthcareComment on above:Ordered: 12/05/2024SURESWAB(R) ADVANCED VAGINITIS PLUS, TMASURESWAB(R) ADVANCED VAGINITIS PLUS, TMA Pathology and Cytology Routine Vaginal discharge Ordered: 01/14/2025[facility] Healthcare Work Phone: comment on above:Ordered: 01/14/2025 Immunizations Immunization DateImmunizationNotesCare EjwghnzpMdikmcip58-00-7538ytzrmpz and diphtheria toxoids, adsorbed, preservative free, for adult use (5 Lf of tetanus toxoid and 2 Lf of diphtheria toxoid)[facility]08-13-2020 tetanus toxoid, reduced diphtheria toxoid, and acellular pertussis vaccine, jigneshDamanisha Ding Other [facility] [employer] Other Payers DatePayer CategoryPayerPolicy [id number] Health [id number]-[id number] Care Other (unspecified)[place] [address] ..[id number]3Iulzmxb Health Insurance [id number] Health Insurance [id number] 1.884275.3.57[id number] ..1.065221.3.57[id number] ..1.654103.3.57[id number] 2..1.276953.3.57[id number] 2..1.338276.3.57[id number] 2.16.840.1.868197.3.57[id number] 2.16.840.1.035387.3.57[id number] 2.16.840.1.398007.3.57[id number] 2.16.840.1.282337.3.57[id number] 2.16.840.1.849759.3.57[id number] 2.16.840.1.810962.3.57[id number] 2..840.1.914569.3.57[id number] 2.16.840.1.610284.3.57[id number] 2.16.840.1.979106.3.57[id number] 2.16.840.1.372525.3.57[id number] 2.840.1.186410.3.57[id number] 2.840.1.251567.3.579.2.234653-59-6033Pmqxrjv Health [id number] Private Health InsuranceRegency Hospital [id number] 2.840.1.615126.3.579.2.531 Social History DateTypeDetailFacilityStart: 12-19-2019 End: 72-71-0961Kjx Assigned At [facility] [employer] Other Start: 09-03-2023 End: 39-50-1745Tfrufnd smoking status NHISNever smoked tobacco (finding) [facility] Cent[facility]art: 66-30-1049Rdu Assigned At [facility] HospitalFeC[facility] Hospitaltart: 03-21-2023 End: 77-79-7812Aibmuqc use and exposureSmokeless tobacco non-userOhioHealth Mansfield Hospital SystemStart: 09-05-2023 End: 33-24-3487Guedbkptt beverage intakeCurrent drinker of alcohol (finding) [facility] [employer] [facility] Hospital[facility]art: 12-19-2019 End: 27-73-7084Ptugvwd of Social functionSelect Medical Specialty Hospital - [facility] NorthHow often to you have a drink containing alcohol?NeverLifeB[facility]: 09-06-2022 Average Number of DrinksNot on [facility] Hospitaltart: 03-21-2023 Alcohol CommentsocialLifeBrite Community Hospital of [facility]okestart: 61-25-1570Usi assigned at [facility] centerNot on [facility] Hospitaltart: 70-24-0203OpmCkpjkb (finding) [facility]: 75-67-2261Jjouzpv CommentOne drink per monthTexas County Memorial HospitalStart: 27-00-4238MfdfipuamQODG Healthcare Clinical Notes 02-04-2020 to 04-29-2025 Note Date & AqcoIgyjSjroadgw37-54-7961 History of Present illness Narrative* Inna Kirkland [...] Problems Diagnosis Date Noted Positive urine test ([facility]) 12/03/2024 Resolved Ambulatory Problems Diagnosis Date [...] nursing note reviewed. Exam conducted with a retail route supervisor present. Vitals: Estimated body mass index is 34.36 kg/m as calculated from the following: Height as of 01/23/24: 5' 8 . Weight as of 04/15/25: 226 lb. BP: Patient's last menstrual period was 09/28/2024. Assessment/Plan ICD-10-CM 1. Third trimester ([facility]) Z34.93 2. 30 weeks gestation of ([facility]) Z3A.30 POCT urinalysis dipstick manually resulted [...] of: Junito Ortiz DO documented in this encounterTexas County Memorial HospitalCbknrjjlzp12-56-7665 History of Present illness Narrative* Saumya Simmons [...] Problems Diagnosis Date Noted Positive urine test ([facility]) 12/03/2024 Resolved Ambulatory Problems Diagnosis Date [...] nursing note reviewed. Exam conducted with a retail route supervisor present. Vitals: Estimated body mass index is 33.15 kg/m as calculated from the following: Height as of 01/23/24: 5' 8 . Weight as of 03/18/25: 218 lb. BP: Patient's last menstrual period was 09/28/2024. Assessment/Plan ICD-10-CM 1. Third trimester ([facility]) Z34.93 2. 28 weeks gestation of ([facility]) Z3A.28 POCT urinalysis dipstick manually resulted [...] of: Junito Ortiz DO documented in this encounterTexas County Memorial HospitalIrzedmimkh23-06-0484 History of Present illness Narrative* Ariadna Bowden [...] Problems Diagnosis Date Noted Positive urine test ([facility]) 12/03/2024 Resolved Ambulatory Problems Diagnosis Date [...] nursing note reviewed. Exam conducted with a retail route supervisor present. Vitals: Estimated body mass index is 33.15 kg/m as calculated from the following: Height as of 01/23/24: 5' 8 . Weight as of this encounter: 218 lb. BP: 122/70 Patient's last menstrual period was 09/28/2024. ASSESSMENT & PLAN ICD-10-CM 1. Second trimester ([facility]) Z34.92 POCT urinalysis dipstick manually resulted 2. 24 weeks gestation of ([facility]) Z3A.24 3. Diabetes mellitus screening Z13.1 [...] of: Junito Ortiz DO documented in this encounterTexas County Memorial HospitalAjjoumzjip07-90-8078 History of Present illness Narrative* Inna Kirkland [...] Problems Diagnosis Date Noted Positive urine test ([facility]) 12/03/2024 Resolved Ambulatory Problems Diagnosis Date [...] nursing note reviewed. Exam conducted with a retail route supervisor present. Vitals: Estimated body mass index is 31.75 kg/m as calculated from the following: Height as of 24: 5' 8 . Weight as of this encounter: 208 lb 12.8 oz. BP: 116/70 Patient's last menstrual period was 09/28/2024. ASSESSMENT & PLAN ICD-10-CM 1. Nausea and vomiting in ([facility]) O21.9 promethazine (Phenergan) 12.5 MG tablet 2. Second trimester ([facility]) Z34.92 POCT urinalysis dipstick manually resulted 3. 20 weeks gestation of ([facility]) Z3A.20 POCT urinalysis dipstick manually resulted 4. [...] of: Inna Kirkland NP documented in this encounterTexas County Memorial HospitalQetgbwpzph28-57-8433 History of Present illness Narrative* Saumya Simmons [...] Date Noted Positive urine test ([facility]) 12/03/2024 Resolved Ambulatory Problems Diagnosis [...] nursing note reviewed. Exam conducted with a retail route supervisor present. Vitals: Estimated body mass index is 30.99 kg/m as calculated from the following: Height as of 7/31/24: 5' 8 . Weight as of this encounter: 203 lb 12.8 oz. BP: 110/70 Patient's last menstrual period was 09/28/2024. ASSESSMENT & PLAN ICD-10-CM 1. 15 weeks gestation of ([facility]) Z3A.15 POCT urinalysis dipstick manually resulted 2. Second trimester ([facility]) Z34.92 POCT urinalysis dipstick manually resulted Alpha fetoprotein, maternal Alpha fetoprotein, maternal 3. Gastroesophageal reflux disease with esophagitis, unspecified whether hemorrhage K21.00 4. Screening, , for anatomic survey ([facility]) Z36.89 US OB 14+ weeks anatomy scan US OB 14+ weeks anatomy scan 5. Exposure to STD Z20.2 CHLAMYDIA TRACHOMATIS (GENITO/STI) Neisseria gonorrhea DNA probe, direct 6. Vaginal discharge N89.8 SURESWAB(R) ADVANCED VAGINITIS PLUS, TMA 7. Well woman exam with routine gynecological exam Z01.419 Pap Smear Return OB/Annual Exam: Patient presents today for a annual exam/routine obstetrics appointment. Patient is currently 05g5zkxdrmehd. Patient states she is doing well but [...] of: Junito Ortiz DO documented in this encounterTexas County Memorial HospitalZwkixpkfkm39-37-2911 History of Present illness Narrative* Saumya Simmons [...] Problems Diagnosis Date Noted Positive urine test ([facility]) 12/03/2024 Resolved Ambulatory Problems Diagnosis Date [...] nursing note reviewed. Exam conducted with a retail route supervisor present. Vitals: Estimated body mass index is 29.73 kg/m as calculated from the following: Height as of 01/23/24: 5' 8 . Weight as of this encounter: 195 lb 8 oz. BP: 110/62 Patient's last menstrual period was 09/28/2024. ASSESSMENT & PLAN ICD-10-CM 1. 11 weeks gestation of ([facility]) Z3A.11 POCT urinalysis dipstick manually resulted 2. First trimester ([facility]) Z34.91 3. Nausea and vomiting in ([facility]) O21.9 4. Gastroesophageal reflux disease with esophagitis, unspecified whether hemorrhage K21.00 pantoprazole (Protonix) 40 MG EC tablet 5. Meconium aspiration in child of prior , currently , unspecified trimester ([facility]) O09.299 New OB: Patient presents today [...] or undercooked meat, and [facility] Patient has been consulted regarding any further do's and don'ts of . Patient voiced understanding and all questions and concerns were answered. Orders Placed This Encounter Procedures POCT urinalysis dipstick manually resulted Follow Up: Patient is to return in 4 weeks for routine OB appointment. Documented by Saumya Simmons LPN on behalf of: Junito Ortiz DO documented in this encounterTexas County Memorial HospitalYjelcrnbsf83-41-5563 History of Present illness Narrative* Carissa Castro, INSPECTOR FINAL ASSEMBLY CONVEYOR LINE - 12/05/2024 10:00 AM EDT Reason for [...] Problems Diagnosis Date Noted Positive urine test ([facility]) 12/03/2024 Resolved Ambulatory Problems Diagnosis Date [...] resulted , unspecified gestational age ([facility]) - Type and screen; Future - ABO/Rh; Future - CBC and differential - Hemoglobin A1c - RPR - Rubella antibody, IgG - Hepatitis B surface antigen - Hepatitis C antibody - HIV-1 and HIV-2 antibodies - Rapid drug screen, urine; Future Encounter for supervision of normal first in first trimester ([facility]) - Rapid drug screen, urine; Future Dizzy [...] or undercooked meat, and stay away from [facility]. Patient has also been advised to not [...] by: Carissa Castro LPN documented in this encounterTexas County Memorial HospitalEjdzsmzckv91-05-3291 Evaluation note* Author Jake Fitzgerald [facility] MemorialAuthoredCone Health Women'S Hospital 2023 9:29amPatient positive for intermittent nausea occurring once or twice monthly patient does note slight appetite changes however this is minimal patient did report periods of weight loss however patient has maintained her weight for many months at this point. Patient is negative for hematemesis, abdominal pain and family history of esophageal and gastric cancer. [facility] Work Phone: 1(218) 100-417803-13-2024 History of Present illness Narrative* Ty Stratton PA-C - 09/05/2023 9:30 AM EDT [facility] Office Note 09/05/2023 8:59 AM Patient info: Nathaniel Bob is a 27 y.o. female Account No.: [id number] Acct: : 1995 PCP: IOVN Wadsworth Chief Complaint: Patient, 27 year old [...] small cyst. CT Head recently completed at [facility] (February,) - reportedly was normal but results and images are unavailable for personal review at this time Prior Hx: Nathaniel complains of dizziness and frequent headaches. Dizziness is said to only be present when she gets a headache. Headache hx: Onset of PEREZ's was approximately 1 year ago (Fall of 2021; age 26). 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 Nathaneil has been tolerating Propranolol LA well, but [...] without aura, often with associated vestibular symptoms. Dwqv-mt-nuxnqtzv PEREZ's are often present upon waking, while [...] Stratton PA-C 09/06/23 0832 documented in this encounterProMedica Flower HospitalAdRocket [facility]le[facility] HospitalXbtprn28-47-8676 Miscellaneous Notes* Telephone Encounter - Viviane Jamison [...] refill again. Please advise and contact patient [phone] * Telephone Encounter - Aimee Lombardo CMA [...] informed and voiced understanding. documented in this encounterA[facility] Hospital [employer] [place] Boyrku39-74-2512 Telephone encounter Note* Telephone Encounter - Viviane [...] refill again. Please advise and contact patient [phone] [facility] [employer] [place] Uepwnd70-57-8546 Telephone encounter Note* Telephone Encounter - Aimee Lombardo CMA - 07/16/2023 12:39 PM EST The patient is currently taking 60 mg 1 tab in the am of Qulipta. The patient was last seen in clinic 05/23/2023 and is scheduled to follow up 09/05/2023. [facility] CenterKuponjo Ymjiro93-30-5366 Telephone encounter Note* Telephone Encounter - Ty Stratton PA-C - 07/16/2023 12:39 PM EST Take 1/2 tablet daily for 6 days, then Discontinue. - [facility] [employer] [place] Dfmomh19-33-2313 Telephone encounter Note* Telephone Encounter - Yelitza Pickens RN - 07/16/2023 12:39 PM EST Patient informed and voiced understanding. [facility] CenterGenNext MediaXkplik37-34-2061 Evaluation note* Encounter Date Diagnosis Assessment Notes [...] albuterol. Continue to monitor closely. Can take vbvt-bto-shejiqt medication for symptom relief. Exercise conservative measures, [...] that were not corrected during review process. [employer] Other 12-06-2023 Evaluation note* Encounter Date Diagnosis [...] that were not corrected during review process. [employer] Other 09-11-2023 Evaluation note* Encounter Date Diagnosis [...] that were not corrected during review process. [employer] Other 08-30-2023 Evaluation note* Encounter Date Diagnosis [...] will also forward these to endocrinology through [employer]. Jan,Elevated cortisol level (ICD-10 - E27.0)Extensive lab [...] will also forward these to endocrinology through [facility]. Jan,Nausea (ICD-10 - R11.0)I would like [...] and is agreeable. We will refer to [facility] neurology so the same electronic medical [...] and is agreeable. We will refer to [facility] neurology so the same electronic medical [...] that were not corrected during review process. [employer] Other 02-22-2022 Note [id number]#1.00[facility]10-15-2021 [id number]#1.00[facility] 02-04-2020 History general Narrative - Reported* Type Description Date Medical History Anxiety Medical HistoryDepressionMedical HistorySeasonal allergiesHospitalization HistoryChildbirth02/04/2020Hospitalization HytohxgNonxjhboyk28/15/2021 [facility] [place] Other Evaluation noteNo InformationNortDepartment of [facility] Affairs [facility] [place] Other Evaluation noteNo assessment information available [facility] Work Phone: Evaluation note* Diagnosis Onset Date Resolution Status Acid reflux acuteAnxietyacuteMigrainesacuteNauseaacute [facility] Work Phone: Evaluation note* Diagnosis Migraine without aura and without status migrainosus, not intractable documented in this encounter [facility] SystemEvaluation [facility]* Diagnosis Migraine without aura and without status migrainosus, not intractable- Primary Vestibular migraine Pineal gland cyst Other specified endocrine disorders Hx of concussion Daytime somnolence documented in this encounter [facility] SystemEvaluation [facility]* Diagnosis Missed menses , unspecified gestational age ([facility]) Encounter for supervision of normal first in first trimester ([facility] [facility]) Dizzy Dizziness and giddiness Lightheaded Dizziness and giddiness documented in this encounter [facility]* Diagnosis 11 weeks gestation of ([facility]) First trimester ([facility]) state, incidental Nausea and vomiting in ([facility]) Unspecified vomiting of , unspecified as to episode of care Gastroesophageal reflux disease with esophagitis, unspecified whether hemorrhage Meconium aspiration in child of prior , currently , unspecified trimester ([facility]) documented in this encounter [facility]* Diagnosis 15 weeks gestation of ([facility]) Second trimester ([facility]) state, incidental Gastroesophageal reflux disease with esophagitis, unspecified whether hemorrhage Screening, , for anatomic survey ([facility]) Encounter for anatomic survey Exposure to STD Vaginal discharge Leukorrhea, not specified as infective Well woman exam with routine gynecological exam Routine gynecological examination Nausea and vomiting in ([facility]) Unspecified vomiting of , unspecified as to episode of care related fatigue in second trimester ([facility]) Insomnia, unspecified type Other migraine with status migrainosus, not intractable documented [facility] this encounter [facility]* Diagnosis Nausea and vomiting in ([facility])- Primary Unspecified vomiting of , unspecified as to episode of care Second trimester ([facility]) state, incidental 20 weeks gestation of ([facility]) Elevated heart rate with elevated blood pressure without diagnosis of hypertension documented [facility] this encounter [facility]* Diagnosis Second trimester ([facility]) state, incidental 24 weeks gestation of ([facility]) Diabetes mellitus screening Screening for diabetes mellitus documented in this encounter [facility]* Diagnosis Third trimester ([facility]) state, incidental 28 weeks gestation of ([facility]) size inconsistent with dates ([facility]) Racing heart beat Unspecified tachycardia documented in this encounter [facility]* Diagnosis Third trimester ([facility]) state, incidental 30 weeks gestation of ([facility]) documented in this encounter [facility] Narrative - Reported* Type Description Date Medical History Anxiety Medical HistoryDepressionMedical HistorySeasonal allergiesMedical History Elevated cortisol levelMedical HistoryElevated DHEAMedical HistoryMigraines Hospitalization HistoryChildbirth02/04/2020Hospitalization HistoryChildbirth 06/08/2021 [facility] Other InstructionsNot on filedocumented in this encounter ProMedicKuponjo SystemInstructionsNot on filedocumented in this encounter ProMedicKuponjo SystemInstructionsNot on filedocumented in this encounter [employer] System Summary Purpose Family History No Family [...] 1 Elevated DHEA (E27.8 ) Ref[facility] [place] Referring Provider First Name Nelida Referring Provider Last Name [facility] Referring Provider Specialty Nurse Pract itioner Referred Organization [facility] Referred Address [address] [facility],[address] Referred Provider Specialty Endocrinolog y Referral Priority Routine Reason Neuro [facility]- sev eral ongoing neuro symptoms Pending CT head at [facility] Diagnosis 1 Dizziness (R42) Referral Organization [facility] [place] Referring Provider First Name Nelida Referring Provider Last Name [facility] Referring Provider Specialty Nurse Pract itioner Referred Organization [facility] Referred Address [address] [facility],[address] Referred Provider Specialty Neurology Referral Priority Routine SpecialtyDiagnoses / ProceduresReferred By ContactReferred To ContactRadiology Diagnoses Migraine without aura and without status migrainosus, not intractable Vestibular migraine Pineal gland cyst Procedures MR brain without contrast Ty Stratton PA-C [address] [facility] [place] [address] Referral IDStatusReasonStart DateExpiration DateVisits RequestedVisits [id number] Review/[id number] / ProceduresReferred By ContactReferred To ContactSleep Medicine Diagnoses Daytime somnolence Ty Stratton PA-C [address] [facility] [place] [address] Yanira Partida MD [address] [place] [place] [address] Referral IDStatusReasonStart DateExpiration DateVisits RequestedVisits [id number] Review Specialty Services Required Chief Complaint and [...] section and content) DATE CREATED AUTHOR 11/14/2021 [facility] DATE CREATED AUTHOR AUTHOR'S ORGANIZ ATION 11/05/2022 [facility] DATE CREATED AUTHOR AUTHOR'S ORGANIZ ATION 09/06/2023 [facility] DATE CREATED AUTHOR AUTHOR'S ORGANIZ ATION 05/01/2025 [facility] DATE CREATED AUTHOR AUTHOR'S ORGANIZ ATION 05/07/2025 [facility] REASON FOR VISIT (unrecogniz ed section and content) ReasonCommentsMed RefillReasonOnset DateCommentsWEENING OFF RMVPSSV7807/16/2023 ReasonCommentsFollow-upPatient is here today for 3 month [...] 25, 2023Team MemberRelationshipSpecialtyStart DateEnd Date BonivanJeremy shermana, DEGREASER-MACHINE TESTER [address] [address] PCP - [facility]04/06/23Team MemberRelationshipSpecialtyStart Date End Date BonivanJeremy shermana, DEGREASER-MACHINE TESTER [address] [address] PCP - [facility]04/06/23Team MemberRelationshipSpecialtyStart Date End Date Bonakosua Nelida, DEGREASER-MACHINE TESTER [address] [address] [facility] Abxbierg71/13/23Team MemberRelationshipSpecialtyStart Date End Date Unallocated, Meryls MD [facility] [place] [address] [facility] - [facility] Vqgihkld99/14/24 Treasure [place] DO [address] [place] [id number] Referring OmmntdffcGozsawotv57/14/24Team MemberRelationshipSpecialtyStart Date End Date Unallocated, Natalie Mccollum MD [facility] [place] [address] PCP - [facility]05/08/24 Treasure England DO [address] [place] [address] Referring BebjqoaikMdcclgpoo12/14/24Team MemberRelationshipSpecialtyStart Date End Date Unallocated, Natalie Mccollum MD [address] [place] [address] PCP - [facility]05/08/24 Treasure England DO [address] [place] [phone] Referring MbqktwynvMujptcijl77/14/24Team MemberRelationshipSpecialtyStart Date End Date Unallocated, Natalie Mccollum MD [facility] [place] [address] PCP - [facility]05/08/24 Treasure England DO [address] [place] [address] Referring DgecunxtmCjsnyhlhd26/14/24Team MemberRelationshipSpecialtyStart Date End Date Unallocated, Noms MD [facility] [place] [address] PCP - [facility]05/08/24 Treasure [place] DO [address] [place] [id number] Referring BhzjkfrpfDuawpcogr21/14/24Team MemberRelationshipSpecialtyStart Date End Date Unallocated, Noms ProviderMD [facility] [place] [address] PCP - [facility]05/08/24 Treasure England DO [address] [place] [address] Referring GxlnezbisBkpnkqsby56/14/24Team MemberRelationshipSpecialtyStart Date End Date Unallocated, Noms MD Chun [facility] [place] [address] PCP - [facility]05/08/24 Treasure England DO [address] [id number] Referring WaekzgtnwWiijeucyb90/14/24Team MemberRelationshipSpecialtyStart Date End Date Unallocated, Meryls MD Chun [facility] [place] [address] PCP - [facility]05/08/24 Treasure England DO [address] [place] [address] Referring UbjxupgdhItuyubywb92/14/24Team MemberRelationshipSpecialtyStart Date End Date Unallocated, Meryls MD [facility] [place] [address] PCP - [facility]05/08/24 Treasure England DO [address] [place] [address] Referring SkqwladvxAxhfpjrbf34/14/24Team MemberRelationshipSpecialtyStart Date End Date Unallocated, Meryls MD [facility] [place] [address] [facility] - [facility]05/08/24 Treasure England DO [address] [place] [address] Referring EkrziptucRmiajnkwd28/14/24Team MemberRelationshipSpecialtyStart Date End Date Unallocated, Meryls MD [facility] [place] [address] [facility]05/08/24 Treasure England DO [address] [place] [address] Referring LitzinjepJfausehgd11/14/24 Goals (unrecognized section and content) Goals may [...] BE BASED ON THE PRIMARY CLINICAL RECORDS. [facility]. provides no warranty or guarantee of the accuracy or completeness of information in this document.
--- OUTSIDE RECORDS SUMMARY | 2025-06-02 19:26 | XMS_ITS | Encounter Summary ---
Author Organization [facility] Address [address] [facility] [place] [address] Care Team Providers Care Telephone Lineman Name Role Phone Unallocated, Noms Provider MD Primary Care Provi aristeo TomásTreasure DO Unavailable [phone] Encounter Details DateTypeDepartmentCare Team (Latest Contact Info)Fxmneiffiza68/28/2025Clinisync Result Encounter [facility] External Department Unsolicited Lora Ortiz DO [address] [place], [place] [id number] Social History Tobacco UseTypesPacks/DayYears UsedDateSmoking Tobacco: NeverSmokeless Tobacco: NeverAlcohol UseStandard Drinks/WeekCommentsYes0 (1 standard drink = 0.6 oz pure alcohol)One drink per monthEstimated Date of DeliveryCommentsYes 6Based on last menstrual period of 09/28/2024Sex and Gender Information ValueDate RecordedSex Assigned at BirthNot on fileLegal QpwCywiwt02/15/2023 8:11 PM EDTGender IdentityNot on fileSexual OrientationNot on filedocumented as of this encounter Plan of Treatment DateTypeDepartmentCare Team (Latest Contact Info)Urnifehkpap68/17/2025 8:30 AM ESTRoutine [facility] [place] [facility] [address] [place] [address] Nicole Ghosh PA [address] [place] [address] documented as of this encounter Procedures Procedure NamePriorityDate/TimeAssociated DiagnosisCommentsUS OB BPP W NON-VQXMKD2605/22/2025 12:44 PM EST documented in this encounter Results * US OB BPP W NON-STRESS (05/22/2025 12:44 PM EST)Anatomical Region LateralityModalityOtherSpecimen (Source)Anatomical Location / Laterality Collection Method / VolumeCollection TimeReceived Time05/22/2025 12:44 PM EST Narrative 05/22/2025 12:46 PM EST [facility] ?[address] ? [place] [address] ? Ultrasound Report ? Signed ? Patient: NATHANIEL [facility]AY[facility] ?MR#: [id number] ?? : 1995 ?Acct:[id number] ?? Age/Sex: 29 / F ?ADM Date: 05/22/25 ?? Loc: [facility] ? Attending Dr: Lora Ortiz D.O. ? Ordering Physician: Lora Ortiz D.O. ?? Date of Service: 05/22/25 ?? Procedure(s): US OB BPP w non-stress ?? Accession Number(s): [id number] ? cc: Kelly Mckenzie DRY YARD WORKER; Lora Ortiz D.O. ? [facility] ? [address] [facility] ? [place] [address] ? Patient Name: ?? NATHANIEL TAYLOR ? MRN: [facility]:[id number] ? date: 1995 ?Sex: F ?? Assigned Patient Location: [facility] ?? Current Patient Location: ? Accession/Order Number: [id number] ?? Exam Date: 05/22/2025 ??11:02 ?Report Date: 05/22/2025 ??12:44 ? At the request of: ?? LORA ??ANGEL ??DO ? Procedure: ??US OB BPP w non-stress ? Biophysical profile. ? Reason for exam: Racing heart beat ? COMPARISON: 05/15/2025 ? TECHNIQUE: Transabdominal imaging of the gravid uterus was obtained. ? FINDINGS: The optical glass inspector reports a BPP of 8 out of 8. ??CLAUDE is normal at 14.6 ?? cm. ?? heart rate 129 bpm. ? US/ OB BPP w non-stress ?? IMPRESSION: BPP 8 out of 8. ? Impression dictated by: Himanshu Mckeon Jr., D.O. ??05/22/2025 12:44 PM ? Dictation Location: [facility]-- ? Electronically authenticated by: [id number] ??Y ?? Date: 05/22/2025 ??12:44 ? Dictated By: ?Himanshu Mckeon M.D. ? Signed By: ?05/22/25 1246 ? DD/ 1244 ? TD/TT: ? Superintendent Local: Procedure Note Radiology, Radiologist, MD - 05/22/2025 [place] [address] Ultrasound Report Signed Patient: NATHANIEL TAYLOR AMR#: [id number] : 1995Acct:[id number] Age/Sex: 29 / FADM Date: 05/22/25 Loc: [facility] Attending Dr: Lora Ortiz D.O. Ordering Physician: Lora Ortiz D.O. Date of Service: 05/22/25 Procedure(s): US OB BPP w non-stress Accession Number(s): [id number] cc: Kelly Mckenzie DRY YARD WORKER; Lora Ortiz D.O. The [address] [address] Patient Name: NATHANIEL TAYLOR MRN: [facility]:[id number] date: 1995 Sex: F Assigned Patient Location: [facility] Current Patient Location: Accession/Order Number: [id number] Exam Date: 05/22/2025 11:02 Report Date: 05/22/2025 12:44 At the request of: LORA ORTIZ DO Procedure: US OB BPP w non-stress Biophysical profile. Reason for exam: Racing heart beat COMPARISON: 05/15/2025 TECHNIQUE: Transabdominal imaging of the gravid uterus was obtained. FINDINGS: The optical glass inspector reports a BPP of 8 out of 8. CLAUDE is normal at14.6 cm. heart rate 129 bpm. US/US OB BPP w non-stress IMPRESSION: BPP 8 out of 8. Impression dictated by: Himanshu Mckeon Jr., D.O. 05/22/2025 12:44 PM Dictation Location: [place] [address] Electronically authenticated by: [id number] Y Date: 2:44 Dictated By: Himanshu Mckeon M.D. Signed By:05/22/25 1246 DD/ 1244 TD/TT: Superintendent Local: Authorizing ProviderResult TypeResult StatusCorey Angel DOCLINISYNC IMAGINGFinal Result documented in this encounter Visit Diagnoses Not on filedocumented in this encounter Care Teams Team MemberRelationshipSpecialtyStart DateEnd Date Unallocated, Noms Provider, [address] [place] [address] PCP - GeneralFamily Mvsahvoh34/14/24 Treasure England DO [address] [place] [address] Referring WcikkquzdBllbeaylx73/14/24documented as of this encounter
--- OUTSIDE RECORDS SUMMARY | 2025-06-02 19:27 | XMS_ITS | Encounter Summary ---
Author Organization [facility] Address [address] [facility] [place] [address] Care Team Providers Care Personnel Counselor Name Role Phone Unallocated, Noms Provider MD Primary Care Provi aristeo TomásTreasure DO Unavailable [phone] Encounter Details DateTypeDepartmentCare Team (Latest Contact Info)Cwnffpwftfx62/03/2025linisync Result Encounter [facility] External Department Unsolicited Lora Ortiz DO [address] [facility] [facility] [address] [place], [place] [address] Social History Tobacco UseTypesPacks/DayYears UsedDateSmoking Tobacco: NeverSmokeless Tobacco: NeverAlcohol UseStandard Drinks/WeekCommentsYes0 (1 standard drink = 0.6 oz pure alcohol)One drink per monthEstimated Date of DeliveryCommentsYes 6Based on last menstrual period of 09/28/2024Sex and Gender Information ValueDate RecordedSex Assigned at BirthNot on fileLegal KwlSyxice80/15/2023 8:11 PM EDTGender IdentityNot on fileSexual OrientationNot on filedocumented as of this encounter Plan of Treatment DateTypeDepartmentCare Team (Latest Contact Info)Uipbojuahxf68/17/2025 8:30 AM ESTRoutine [facility] [place] [facility] [address] [place] [address] Nicole Ghosh PA [address] [place] [address] documented as of this encounter Procedures Procedure NamePriorityDate/TimeAssociated DiagnosisCommentsUS OB BPP W NON-VMIEDA4405/27/2025 10:21 AM EST documented in this encounter Results * US OB BPP W NON-STRESS (05/27/2025 10:21 AM EST)Anatomical Region LateralityModalityOtherSpecimen (Source)Anatomical Location / Laterality Collection Method / VolumeCollection TimeReceived Time05/27/2025 10:21 AM EST Narrative 05/27/2025 10:24 AM EST The [facility] ?[address] ? [place] [address] ? Ultrasound Report ? Signed ? Patient: NATHANIEL TAYLOR ?MR#: [id number] ?? : 1995 ?Acct:[id number] ?? Age/Sex: 29 / F ?ADM Date: 05/27/25 ?? Loc: FBC ??252-1 ? Attending Dr: Lora Ortiz D.O. ? Ordering Physician: Lora Ortiz D.O. ?? Date of Service: 05/27/25 ?? Procedure(s): US OB BPP w non-stress ?? Accession Number(s): [id number] ? cc: Kelly Mckenzie SUGAR MILL WORKER; Lora Ortiz D.O. ? [facility] ? [address] ? [place] [address] ? Patient Name: ?? NATHANIEL TAYLOR ? MRN: [facility]:[id number] ? date: 1995 ?Sex: F ?? Assigned Patient Location: FBC ?? Current Patient Location: FBC ?? Accession/Order Number: [id number] ?? Exam Date: 05/27/2025 ??09:01 ?Report Date: 05/27/2025 ??10:21 ? At the request of: ?? LORA ??ANGEL ??DO ? Procedure: ??US OB BPP w non-stress ? BIOPHYSICAL PROFILE: ? CLINICAL INFORMATION: RACING HEART BEAT ? COMPARISON: 05/22/2025 ? There is a single live intrauterine gestation in cephalic presentation. ??The ?? reported gestational age is 34 weeks 3 days. ??The heart rate measures ?? 159 beats per minute. ? FINDINGS: ? TONE: 1 or more episodes of activity extension and flexion of ?? extremity or opening and closing of the hand ?[Y] ? 2/2 ?? GROSS BODY MOVEMENTS: 3 or more discrete body or limb movements ?[Y] ? 2/2 ?? BREATHING MOVEMENTS: 1 or more episodes of breathing lasting at ?? least 30 seconds ? [Y] ? 2/2 ?? CLAUDE: A single deepest vertical pocket of amniotic fluid greater than 2 cm ? [Y] ? 2/2 ?CLAUDE: 13.3 cm ? Total score: ? 8/8 ? US/US OB BPP w non-stress ?? IMPRESSION: ? NORMAL BIOPHYSICAL PROFILE. ? Impression dictated by: Saumya Prajapati M.D. ??05/27/2025 10:21 AM ? Dictation Location: [facility]IO[facility]PC-02 ? Electronically authenticated by: [id number] ??Y ?? Date: 05/27/2025 ??10:21 ? Dictated By: ?Saumya Prajapati M.D. ? Signed By: ?12/03/25 1024 ? DD/ 1021 ? TD/TT: ? Gas Operation Manager: Procedure Note Radiology, Radiologist, - 05/27/2025 [place] [address] Ultrasound Report Signed Patient: NATHANIEL TAYLOR AMR#: [id number] : 1995Acct:[id number] Age/Sex: 29 / FADM Date: 05/27/25 Loc: [facility] 252-[address]: Lora Ortiz D.O. Ordering Physician: Lora Ortiz D.O. Date of Service: 05/27/25 Procedure(s): US OB BPP w non-stress Accession Number(s): [id number] cc: Kelly Mckenzie SUGAR MILL WORKER; Lora Ortiz D.O. The [place] [id number] Patient Name: NATHANIEL TAYLOR MRN: [facility]:[id number] date: 1995 Sex: F Assigned Patient Location: [facility] Current Patient Location: [facility] Accession/Order Number: [id number] Exam Date: 05/27/2025 09:01 Report Date: 05/27/2025 10:21 At the request of: LORA ORTIZ DO Procedure: US OB BPP w non-stress BIOPHYSICAL PROFILE: CLINICAL INFORMATION: RACING HEART BEAT COMPARISON: 05/22/2025 There is a single live intrauterine gestation in cephalic presentation.The reported gestational age is 34 weeks 3 days. The heart ratemeasures 159 beats per minute. FINDINGS: TONE: 1 or more episodes of activity extension and flexion of extremity or opening and closing of the hand [Y] 2/2 GROSS BODY MOVEMENTS: 3 or more discrete body or limb movements [Y] 2/2 BREATHING MOVEMENTS: 1 or more episodes of breathing lastingat least 30 seconds [Y] 2/2 CLAUDE: A single deepest vertical pocket of amniotic fluid greater than 2 cm [Y] 2/2 CLAUDE: 13.3 cm Total score: 8/8 US/US OB BPP w non-stress IMPRESSION: NORMAL BIOPHYSICAL PROFILE. Impression dictated by: Saumya Prajapati M.D. 05/27/2025 10:21 AM Dictation Location: [place] [address] Electronically authenticated by: [id number] Y Date: 0:21 Dictated By: Saumya Prajapati M.D. Signed By:05/27/25 1024 DD/ 1021 TD/TT: Gas Operation Manager: Authorizing ProviderResult TypeResult StatusCorey Angel DOCLINISYNC IMAGINGFinal Result documented in this encounter Visit Diagnoses Not on filedocumented in this encounter Care Teams Team MemberRelationshipSpecialtyStart DateEnd Date Unallocated, Noms Provider, [address] [place] [address] PCP - GeneralFamily Mdduqsde11/14/24 Treasure England DO [address] [place] [address] Referring LvglgxzofRezotqzzy97/14/24documented as of this encounter
--- OUTSIDE RECORDS SUMMARY | 2025-06-02 19:29 | XMS_ITS | Clinical Summary ---
Author Organization [employer] Address [id number] [address] [place] [address] Care Team Providers Care Geophysical Manager Name Role Phone Kelly Mckenzie YANELI-CLOTHES DRIER ASSEMBLER Primary Care Provider Allergies No known active [...] without aura and without status migrainosus, not isjiwunrglr09/29/2023Pineal gland cyst05/23/2023Hx of /29/2023Vestibular htldzdlo04/27/2023Choroid plexus cyst of fetus affecting care of mother, /10/2021 Family History Medical HistoryRelationNameCommentsBreast cancerMaternal GrandmotherDiabetes Maternal [...] Frequency of Binge DrinkingNot on file12/19/2019PHQ-2AnswerDate RecordedTotal Qswml114/29/2023ChildcareAnswerDate AqgwhndyFxjlpfjcbUrfabjf54/24/2020Employment AnswerDate NpbdcvjlBrbwiphzsxVrdefgu58/24/2020Hunger ScreeningAnswerDate RecordedWithin the past 12 months we worried whether our food would run out before we got money to buy more.Never True09/05/2023Within the past 12 months the food we bought just didn't last and we didn't have money to get more.Never True4Purpose - LifeAnswerDate RecordedPurpose and direction in life Hicukaa87/11/2021CommentsNoSex and Gender InformationValueDate Recorded Sex Assigned at BirthNot on fileLegal VpvYsvulz00/24/2020 11:48 AM EDTGender IdentityNot on fileSexual OrientationNot on file Last Filed Vital Signs Vital SignReadingTime TakenCommentsBlood Itnlqqaf034/7703 9:42 AM EDT Ydmnd136309/05/2023 9:42 AM EDTTemperature--Respiratory Rate--Oxygen Saturation-- Inhaled Oxygen Concentration--Sqkocz28.9 kg (202 lb 8 oz)09/05/2023 9:42 AM EDT Tltnxv952.7 cm (5' 8 )09/05/2023 9:42 AM EDTBody Mass Index30.7909/05/2023 9:42 AM EDT Plan of Treatment Health MaintenanceDue DateLast DoneCommentsDTaP,Tdap and Td Vaccines (1 - Tdap) 12/19/2014Pap Smear12/19/2016Depression Pjhghloxj32dult BMI Pnhxlyojx24Tobacco Uofytgybo17Influenza Ythirzt4102/23/2025 Medical Devices Not on file Insurance Care Teams Team MemberRelationshipSpecialtyStart DateEnd Date Kelly Mckenzie APRN-CLOTHES DRIER ASSEMBLER [address] [facility] [address] [place] [address] PCP - GeneralFamily Vefbbhli90/13/23
--- OUTSIDE RECORDS SUMMARY | 2025-06-02 19:29 | XMS_ITS | Encounter Summary ---
Author Organization [facility] Address [address] [facility] [place] [address] Care Team Providers Care Digital Media Manager Name Role Phone Unallocated, [facility] Provider MD Primary Care Provi aristeo Treasure England DO Unavailable [phone] Reason for Visit * ReasonCommentsMed Refill Encounter Details DateTypeDepartmentCare Team (Latest Contact Info)Jooqywyubux08/28/2025Refill NATALIE KEARNS [address] [place] [place] [phone] Junito Ortiz DO [address] [place], [facility] Nausea and vomiting in ([facility]) Social History Tobacco UseTypesPacks/DayYears UsedDateSmoking Tobacco: NeverSmokeless Tobacco: NeverAlcohol UseStandard Drinks/WeekCommentsYes0 (1 standard drink = 0.6 oz pure alcohol)One drink per monthEstimated Date of DeliveryCommentsYes 6Based on last menstrual period of 09/28/2024Sex and Gender Information ValueDate RecordedSex Assigned at BirthNot on fileLegal RykFlxfhr32/15/2023 8:11 PM EDTGender IdentityNot on fileSexual OrientationNot on filedocumented as of this encounter Plan of Treatment DateTypeDepartmentCare Team (Latest Contact Info)Gdzsdiceaza31/17/2025 8:30 AM ESTRoutine [facility] OBG[facility] [address] [place] [place] [phone] Nicole Ghosh PA [address] [place], [facility]11 documented as of this encounter Visit Diagnoses Diagnosis Nausea and vomiting in ([facility]) Unspecified vomiting of , unspecified as to episode of care documented in this encounter Care Teams Team MemberRelationshipSpecialtyStart DateEnd Date Unallocated, Nomneena Mccollum MD [address] [place] [place] [address] PCP - GeneralFamily Fumyugqz81/14/24 Treasure England DO [address] [place] [id number] Referring XfnvakzkgOsjmtswky60/14/24documented as of this encounter
[2025-06-02 19:31] VITALS: BP 119/71; PULSE 113; TEMP 36.4
--- OUTSIDE RECORDS SUMMARY | 2025-06-02 19:31 | XMS_ITS | Clinical Summary ---
Author Organization [facility] Address [address] [place] [address] Care Team Providers Care Can Solderer Name Role Phone Unallocated, [facility] Provider MD Primary Care Provi aristeo Treasure England DO Unavailable [phone] Allergies Active AllergyReactionsCriticalityNoted DateCommentsPollen Rnhbujs8909/19/2023 Other Reaction(s): Unknown Reaction Medications MedicationSigDispense QuantityRefillsLast FilledStart DateEnd DateStatus magnesium 100 MG tablet 3Active Probiotic Product (PROBIOTIC ADVANCED PO) ProbioticActive pyridoxine (Vitamin B-6) 25 MG tablet Take 25 mg by mouth DailyActive Doxylamine Succinate, Sleep, (UNISOM PO) Take by mouthActive ondansetron (Zofran) 4 MG tablet Indications:Nausea and vomiting in ([facility])Take 1 tablet (4 mg) by mouth every [...] 10 MG tablet Indications:Nausea and vomiting in ([facility])TAKE 1 TABLET BY MOUTH IN MORNING,AT NOON,IN EVENING 30 MINUTES PRIOR TO MEALS NEEDED FOR NAUSEA 90 tablet 5Active terconazole (Terazol 7) 0.4 % vaginal cream Indications:Yeast infectionInsert 1 applicator into the vagina at bedtime for 7 days 45 g 5Active pantoprazole (Protonix) 40 MG EC tablet Indications:Gastroesophageal reflux disease with esophagitis, unspecified whether hemorrhageTake 1 tablet (40 mg) by mouth in the morning. Take before meals. Do not crush, chew, or split. 30 tablet Discontinued Ambien 10 MG tablet Indications: related fatigue in second trimester ([facility]),Insomnia, unspecified typeTake 1 tablet (10 mg) by mouth as needed at bedtime for sleep for up to 5 days 5 tablet Discontinued promethazine (Phenergan) 12.5 MG tablet Indications:Nausea and vomiting in ([facility])Take 1 tablet (12.5 mg) by mouth every 8 (eight) hours if needed for nausea or vomiting for up to 30 doses Take 1 tablet by mouth every 6 hours as needed for nausea. 30 tablet Discontinued metoclopramide (Reglan) 10 MG tablet Indications:Nausea and vomiting in ([facility])TAKE 1 TABLET BY MOUTH IN MORNING,AT NOON,IN EVENING 30 MINUTES PRIOR TO MEALS NEEDED FOR NAUSEA 90 tablet Discontinued iron polysaccharides (ProFe) 391.3 (180 Fe) MG capsule Indications:Low ironTake 1 capsule (391.3 mg) by mouth Daily 30 capsule Expired Active Problems ProblemNoted DateDiagnosed DatePositive urine test ([facility])12/03/2024 Estimated Date of OyqxliejTjwenesvLbo16/11/2026ased on last menstrual period of 09/28/2024 Encounters DateTypeDepartmentCare WgvnPwszragxwgu43/08/2025 8:00 AM ESTAncillary Procedure [facility] [place] [facility] [address] [place] [address] Excessive growth affecting management of , antepartum, single or unspecified fetus ([facility])05/27/2025 1:00 PM ESTRoutine [facility] [place] [facility] [address] [place] [address] Lora Ortzi, 34 weeks gestation of ([facility]); Third trimester ([facility]); Yeast infection; Excessive growth affecting management of , antepartum, single or unspecified fetus ([facility])5Clinisync Result Encounter NOMS External Department Unsolicited Lora Ortiz, DO 5Clinisync Result Encounter [facility]OM[facility] External Department Unsolicited Lora Ortiz, DO 05/22/2025Refill [facility] [place] [facility] [address] [place] [address] Lora Ortiz, Nausea and vomiting in ([facility])5Clinisync Result Encounter [facility]OMS External Department Unsolicited Lora Ortiz, 05/13/2025 1:20 PM ESTRoutine [facility] [place] [facility] [address] [place] [address] Nicole Ghosh PA 32 weeks gestation of ([facility]); Third trimester ([facility]); Racing heart beat5Bamboo flowsheet [facility] [place] [facility] [address] [place] [address] Nicole Ghosh PA 04/29/2025 1:30 PM ESTRoutine [facility] [place] [facility] [address] [place] [address] Lora Ortiz, Third trimester ([facility]); 30 weeks gestation of ([facility])04/29/2025 1:00 PM ESTAncillary Procedure [facility] [place] [facility] [address] [place] [address] size inconsistent with dates ([facility])5Clinisync Result Encounter NOMS External Department Unsolicited Lora Ortiz, 5Clinisync Result Encounter [facility]OMS External Department Unsolicited Lora Ortiz, DO 04/15/2025 1:00 PM EDTRoutine [facility] [place] [facility] [address] [place] [address] Lora Ortiz, Third trimester ([facility]); 28 weeks gestation of ([facility]); size inconsistent with dates ([facility]); Racing heart beat04/15/2025bstract [facility] [place] [facility] [address] [place] [address] Mable Dior MA 04/15/2025amboo flowsheet [facility] [place] [facility] [address] [place] [address] Lora Ortiz DO 04/13/2025bstract [facility] [place] [facility] [address] [place] [address] Mable Dior MA 04/08/2025bstract [facility] [place] [facility] [address] [place] [address] Marge Kirkland, ZAC 04/01/2025Telephone [facility] [place] [facility] [address] [place] [address] Ariadna Bowden MA 5Clinisync Result Encounter NOMS External Department Unsolicited Marge Kirkland, DEVELOPMENT SPECIALIST 03/21/2025Refill [facility] [place] [facility] [address] [place] [address] Lora Ortiz DO Nausea and vomiting in ([facility])03/18/2025 2:20 PM EDTRoutine [facility] [place] [facility] [address] [place] [address] Lora Ortiz, Second trimester ([facility]); 24 weeks gestation of ([facility]); Diabetes mellitus kotoawoye90/24/2025 2:00 PM EDTAncillary Procedure [facility] [place] [facility] [address] [place] [address] Encounter for follow-up ultrasound of anatomy ([facility])03/05/2025bstract [facility] [place] [facility] [address] [place] [address] Marge Kirkland NP from Last 3 Months Family History Medical [...] ValueDate RecordedSex Assigned at BirthNot on fileLegal DukJksqen46/15/2023 8:11 PM EDTGender IdentityNot on fileSexual OrientationNot on file Last Filed Vital Signs Vital SignReadingTime TakenCommentsBlood Wpvrskvt226/6005/27/2025 1:03 PM EST Pulse--Temperature--Respiratory Rate--Oxygen Saturation--Inhaled Oxygen Concentration--Rbamil941 kg (231 lb)05/27/2025 1:03 PM ILAPlrqhc316.7 cm (5' 8 ) 01/23/2024 1:31 PM EDTBody Mass Index35.12001/23/2024 1:31 PM EDT Plan of Treatment DateTypeDepartmentCare Team (Latest Contact Info)Mefrmvmavkg55/17/2025 8:30 AM ESTRoutine [facility] [place] [facility] [address] [place] [address] Nicole Ghosh PA [address] [place] [address] Health MaintenanceDue DateLast DoneCommentsCOVID-19 Vaccine (2024- season) 2025Influenza Vaccine (#1)2025Pneumococcal Vaccine: Pediatrics (0 to 5 Years) and At-Risk Patients (6 to 64 Years)Aged OutNo longer eligible based on patient's age to complete this topic Procedures Procedure NamePriorityDate/TimeAssociated DiagnosisCommentsPOCT URINALYSIS XSSMWDOXEbwdbqq78/03/2025 1:16 PM EST 34 weeks gestation of ([facility]) Third trimester ([facility]) US OB BPP W NON-XPKWUA1405/27/2025 10:21 AM EST US OB BPP W NON-BVEZJE4705/22/2025 12:44 PM EST US OB BPP W NON-ERPOZK5905/15/2025 3:36 PM EST POCT URINALYSIS YOFROBTPPheanhf39/19/2025 1:32 PM EST 32 weeks gestation of ([facility]) Third trimester ([facility]) POCT URINALYSIS KOBFXNZZHggdomn02/05/2025 1:42 PM EST 30 weeks gestation of ([facility]) US OB FOLLOW UP TRANSABDOMINAL WKQFBCEPLymdvmr44/05/2025 1:17 PM EST size inconsistent with dates ([facility]) CA ECHO DOPPLER TPWOAWVD23/29/2025 6:12 PM EDT ECG 12-LEAD04/22/2025 8:28 AM EDT POCT URINALYSIS RYDMHSRDCuzgjsu16/22/2025 1:16 PM EDT 28 weeks gestation of ([facility]) ALL CBC WITH AUTO TSQNZtmftxi86/08/2025 9:19 AM EDT GLUCOSE 1 YGCUGjhnqxr66/08/2025 9:19 AM EDT POCT URINALYSIS DMSRJDKHAjkcxti42/24/2025 2:39 PM EDT Second trimester ([facility]) US OB LIMITED 1+ FOUCUBGVwjlsmg67/24/2025 2:17 PM EDT Encounter for follow-up ultrasound of anatomy ([facility]) from Last 3 Months Results * (ABNORMAL) POCT urinalysis dipstick manually resulted (05/27/2025 1:16 PM EST) Only the most recent of5 resultswithin the time period is included. ComponentValueRef RangeTest MethodAnalysis TimePerformed AtPathologist Signature Color, UAYellowClarity, UAClearGlucose, UANegativeNegative - 1999(110) ++++ mg/dLBilirubin, UANegativeNegative - 4(70) +++ mg/dLKetones, UANegativeNegative - 160(16) ++++ mg/dLSpec Grav, UA1.0301 - 1.03Blood, UANegativeNegative - 50 Cj/mcLpH, UA6.05 - 9Protein, UATraceNegative - 2000(20) ++++ mg/dLUrobilinogen, UA0.20.2 - 12 mg/dLLeukocytes, UANegativeNegative - 500+++ Cosmo/mcLNitrite, UA NegativeNegative - PositiveSpecimen (Source)Anatomical Location / Laterality Collection Method / VolumeCollection TimeReceived YuzuFuudk67/03/2025 1:16 PM EST Narrative Authorizing ProviderResult TypeResult StatusCorey Angel DOPOINT OF CARE TEST ENTER/EDIT ORDERABLESFinal Result * US OB BPP W NON-STRESS (05/27/2025 10:21 AM EST) Only the most recent of3 resultswithin the time period is included. Anatomical RegionLateralityModalityOtherSpecimen (Source)Anatomical Location / LateralityCollection Method / VolumeCollection TimeReceived Time05/27/2025 10:21 AM EST Narrative 05/27/2025 10:24 AM EST [facility] ?[address] ? [place] [address] ? Ultrasound Report ? Signed ? Patient: NATHANIEL TAYLOR ?MR#: [id number] ?? : 1995 ?Acct:[id number] ?? Age/Sex: 29 / F ?ADM Date: 05/27/25 ?? Loc: [facility] ??252-1 ? Attending Dr: Lora Ortiz D.O. ? Ordering Physician: Lora Ortiz D.O. ?? Date of Service: 05/27/25 ?? Procedure(s): US OB BPP w non-stress ?? Accession Number(s): [id number] ? cc: Kelly Mckenzie DEVELOPMENT SPECIALIST; Lora Ortiz D.O. ? [facility] ? [facility]. [facility] ? [place] [address] ? Patient Name: ?? NATHANIEL TAYLOR ? MRN: [facility]:[id number] ? date: 1995 ?Sex: F ?? Assigned Patient Location: [facility] ?? Current Patient Location: [facility] ?? Accession/Order Number: [id number] ?? Exam Date: 05/27/2025 ??09:01 ?Report Date: [...] Dictation Location: RADIO-PC-02 ? Electronically authenticated by: [id number] ??Y ?? Date: 05/27/2025 ??10:21 ? Dictated By: ?Saumya Prajapati M.D. ? Signed By: ?12/03/25 1024 ? DD/ 1021 ? TD/TT: ? Management Recruiter: Procedure Note Radiology, Radiologist, - 05/27/2025 [place] [address] Ultrasound Report Signed Patient: NATHANIEL TAYLOR AMR#: [id number] : 1995Acct:[id number] Age/Sex: 29 / FADM Date: 05/27/25 Loc: [facility] 252-[address]: Lora Ortiz D.O. Ordering Physician: Lora Ortiz D.O. Date of Service: 05/27/25 Procedure(s): US OB BPP w non-stress Accession Number(s): [id number] cc: Kelly Mckenzie DEVELOPMENT SPECIALIST; Lora Ortiz D.O. The [place] [id number] Patient Name: NATHANIEL TAYLOR MRN: [facility]:[id number] date: 1995 Sex: F Assigned Patient Location: [facility] Current Patient Location: [facility] Accession/Order Number: [id number] Exam Date: 05/27/2025 09:01 Report Date: 05/27/2025 [...] Prajapati M.D. 05/27/2025 10:21 AM Dictation Location: [place] [address] Electronically authenticated by: [id number] Y Date: 0:21 Dictated By: Saumya Prajapati M.D. Signed By:05/27/25 1024 DD/ 1021 TD/TT: Management Recruiter: Authorizing ProviderResult TypeResult StatusCorey Angel DOCLINISYNC IMAGINGFinal Result * US OB follow up transabdominal [...] EDT Narrative 04/22/2025 6:13 PM EDT [facility] ?[address] ? [place], [facility] ? Cardiology Report ? Signed ? Patient: NATHANIEL TAYLOR ?MR#: [id number] ?? : 1995 ?Acct:[id number] ?? Age/Sex: 29 / F ?ADM Date: 04/22/25 ?? Loc: CARD ? Attending Dr: Lora Ortiz D.O. ? Ordering Physician: Lora Ortiz D.O. ?? Date of Service: 04/22/25 ?? Procedure(s): CA echo doppler complete ?? Accession Number(s): [id number] ? cc: Kelly Mckenzie DEVELOPMENT SPECIALIST; Lora Ortiz D.O. ? Patient Name: ? NATHANIEL TAYLOR ? MR#: [id number] ? : 1995 ? Exam Date: 04/22/2025 [...] ? 2.50 cm2, 2.50 cm2 ?? Deceleration [place]: ? Pressure Half-Time: ? Peak Velocity(Antegrade Flow): [...] ? Signed By: ?04/22/25 1813 ? DD/ 1812 ? TD/TT: ? Management Recruiter: Procedure Note Radiology, Radiologist, MD - 04/22/2025 [place] [address] Cardiology Report Signed Patient: NATHANIEL TAYLOR AMR#: [id number] : 1995Acct:[id number] Age/Sex: Date: 04/22/25 Loc: CARD Attending Dr: Lora Ortiz D.O. Ordering Physician: Lora Ortiz D.O. Date of Service: 04/22/25 Procedure(s): CA echo doppler complete Accession Number(s): [id number] cc: Kelly Mckenzie DEVELOPMENT SPECIALIST; Lora Ortiz D.O. Patient Name: NATHANIEL TAYLOR MR#: [id number] : 1995 Exam Date: 04/22/2025 Ordering Doctor: [...] Area (VTI): 2.50 cm2, 2.50 cm2 Deceleration [place]: Pressure Half-Time: Peak Velocity(Antegrade Flow): 1.55 m/s [...] Lopez M.D. Signed By:04/22/251812 DD/ 11 TD/TT: Management Recruiter: Authorizing ProviderResult TypeResult StatusCorey Angel DOCLINISYNC IMAGINGFinal Result * ECG 12-LEAD (04/22/2025 8:28 AM EDT)Anatomical RegionLateralityModalityOther Specimen (Source)Anatomical Location / LateralityCollection Method / Volume Collection TimeReceived Time04/22/2025 8:28 AM EDT Narrative 04/22/2025 6:39 PM EDT [facility] ?[address] ? [place] [address] ? Electrocardiograph Report ? Signed ? Patient: NATHANIEL TAYLOR ?MR#: [id number] ?? : 1995 ?Acct:[id number] ?? Age/Sex: 29 / F ?ADM Date: 04/22/25 ?? Loc: CARD ? Attending Dr: Lora Ortiz D.O. ? Ordering Physician: Lora Ortiz D.O. ?? Date of Service: 04/22/25 ?? Procedure(s): ECG 12 lead ?? Accession Number(s): [id number] ? cc: ?[facility] ? Test Date: ?2025-04-22 ?? Pat Name: ? NATHANIEL TAYLOR ?Department: ? Room: ? - ?? Gender: ? Female ? Core Shaper Top: ? : ?1995 ? Requested By: LORA ORTIZ ?? Order Number: [id number] ?Reading MD: ?? SLY HERRERA ? Measurements ?? Intervals ?[employer] ? Rate: ? 84 ? P: ?22 ?? [place]: ? 139 ?QRS: ?88 ?? QRSD: ? 94 ? T: ?54 ?? QT: ? 361 ? QTc: ?429 ? Interpretive Statements ?? SINUS RHYTHM ?? No previous ECG available for comparison ?? Electronically Signed On 04-22-2025 18:39:57 EDT by SLY HERRERA ? Dictated By: ?Sly Herrera M.D. ? Signed By: ?10/29/25 1839 ?10/29/25 1839 ? DD/DT: //25 0828 ? TD/TT: ? Management Recruiter: Procedure Note Radiology, Radiologist, - 04/22/2025 [place] [address] Electrocardiograph Report Signed Patient: NATHANIEL TAYLOR AMR#: [id number] : 1995Acct:[id number] Age/Sex: Date: 04/22/25 Loc: CARD Attending Dr: Lora Ortiz D.O. Ordering Physician: Lora Ortiz D.O. Date of Service: 04/22/25 Procedure(s): ECG 12 lead Accession Number(s): [id number] cc: [facility] Test Date: 2025-04-22 Pat Name: NATHANIEL TAYLOR Department: Room: - Gender: Female Core Shaper Top: : 1995 Requested By: LORA ORTIZ Order Number: [id number] Reading MD: SLY HERRERA Measurements Intervals [employer] Rate: 84 P: 22 [place]: 139 QRS: 88 QRSD: 94 T: 54 QT: 361 QTc: 429 Interpretive Statements SINUS RHYTHM No previous ECG available for comparison Electronically Signed On 04-22-2025 18:39:57 EDT by SLY HERRERA Dictated By: Sly Herrera M.D. Signed By:04/22/25183804/22/251838 DD/ 0828 TD/TT: Management Recruiter: Authorizing ProviderResult TypeResult StatusCorey Angel DOCLINISYNC IMAGINGFinal Result * GLUCOSE 1 HOUR (04/01/2025 9:19 AM EDT)ComponentValueRef RangeTest Method Analysis TimePerformed AtPathologist SignatureGLUCOSE 1 JISB503<130 mg/dLTBH Specimen (Source)Anatomical Location / LateralityCollection Method / Volume Collection TimeReceived Time04/01/2025 9:19 AM EDT1 9:27 AM EDT Narrative [facility] - 04/01/2025 10:15 AM EDT Authorizing ProviderResult TypeResult StatusNahumcindy Marita NPLAB BLOOD ORDERABLESFinal ResultPerforming OrganizationAddressCity/State/ZIP CodePhone Number [facility] * (ABNORMAL) ALL CBC WITH AUTO DIFF (04/01/2025 9:19 AM EDT)ComponentValueRef RangeTest MethodAnalysis TimePerformed AtPathologist SignatureTBH WBC11.8(H) 4.0 - 11.0 10 3/uLTBHTBH RBC3.81(L)4.20 - 5.40 10 6/uLTBHTBH HGB10.9(L)12.0 - 16.0 g/dLTBHTBH HCT33.8(L)36.0 - 48.0 %TBHTBH MCV88.781.0 - 99.0 fLTBHTBH MCH 28.626.7 - 34.0 pgTBHTBH MCHC32.229.9 - 35.2 g/dLTBHTBH RDW12.611.0 - 15.0 % TBHTBH FUC619354 - 450 10 3/uLTBHTBH MPV11.09.5 - 13.5 [...] StatusMarge Kirkland NPCLINISYNCFinal ResultPerforming OrganizationAddressCity/State/ZIP CodePhone Number [facility] * US OB limited 1+ fetuses (03/18/2025 [...] TypeResult StatusCorey Angel PRICE OB US PROCEDURES Final Result from Last 3 Months Insurance Care Teams Team MemberRelationshipSpecialtyStart DateEnd Date Unallocated, [facility] Provider, [address] [place] [address] PCP - GeneralFamily Ofpokrpe82/14/24 Treasure England DO [address] [place] [address] Referring FjfedsycmOuqxrcrvo77/14/24
[2025-06-02 19:46] VITALS: TEMP 36.4
[2025-06-02] MEDS: BETAMETHASONE ACE/BETAMETHASONE SOD PHOS 30 MG/5 ML 12 MG IM (20:03)
== END 2025-06-02 20:17 | disposition home or self-care (01) ==
LOC: FBCO 19:22 → FBC 19:23
PROVIDERS: PCP Nurse Practitioner Family; Visit Provider Obstetrics & Gynecology
DX: O26.893 Other specified pregnancy related conditions, third trimester (principal); Z3A.35 35 weeks gestation of pregnancy
CPT/HCPCS: 59025; 96372; J0702

== ENCOUNTER 2025-06-03 19:53 | Outpatient (OUT) | payer OTHER, SELFPAY ==
--- OUTSIDE RECORDS SUMMARY | 2025-05-27 13:00 | XMS_ITS | Encounter Summary ---
Author Organization [facility] Address [address] [facility] [place] [address] Care Team Providers Care Shrimp Trawler Captain Name Role Phone Unallocated, Noms Provider MD Primary Care Provi aristeo TomásTreasure DO Unavailable [phone] Reason for Visit * ReasonCommentsRoutine Visit Encounter Details DateTypeDepartmentCare Team (Latest Contact Info)Czipzjjkaxo15/03/2025 1:00 PM ESTRoutine NATALIE [place] OBGYN [address] [facility] [facility] [address] Junito Ortiz DO [address] [place], [place] [id number] 34 weeks gestation of ([facility]); Third trimester ([facility]); Yeast infection; Excessive growth affecting management of , antepartum, single or unspecified fetus ([facility]) Social History Tobacco UseTypesPacks/DayYears UsedDateSmoking Tobacco: NeverSmokeless Tobacco: NeverAlcohol UseStandard Drinks/WeekCommentsYes0 (1 standard drink = 0.6 oz pure alcohol)One drink per monthEstimated Date of DeliveryCommentsYes 6Based on last menstrual period of 09/28/2024Sex and Gender Information ValueDate RecordedSex Assigned at BirthNot on fileLegal GnhDkpcbh62/15/2023 8:11 PM EDTGender IdentityNot on fileSexual OrientationNot on filedocumented as of this encounter Last Filed Vital Signs Vital SignReadingTime TakenCommentsBlood Qhnernrz296/6012 1:03 PM EST Pulse--Temperature--Respiratory Rate--Oxygen Saturation--Inhaled Oxygen Concentration--Gynhsc040 kg (231 lb)05/27/2025 1:03 PM ESTHeight--Body Mass [...] Problems Diagnosis Date Noted Positive urine test ([facility]) 12/03/2024 Resolved Ambulatory Problems Diagnosis Date [...] nursing note reviewed. Exam conducted with a building rental superintendent present. Vitals: Estimated body mass index is 35.12 kg/m?? as calculated from the following: Height as of 01/23/24: 5' 8 . Weight as of this encounter: 231 lb. BP: 122/60 Patient's last menstrual period was 09/28/2024. Assessment/Plan ICD-10-CM 1. 34 weeks gestation of ([facility]) Z3A.34 POCT urinalysis dipstick manually resulted 2. Third trimester ([facility]) Z34.93 POCT urinalysis dipstick manually resulted [...] Plan of Treatment DateTypeDepartmentCare Team (Latest Contact Info)Pszgqvtgkyc92/17/2025 8:30 AM ESTRoutine [facility] [address] [place] [address] Nicole Ghosh PA [address] [place] [address] NameTypePriorityAssociated DiagnosesDate/TimeUS OB follow up transabdominal approachImagingRoutine Excessive growth affecting management of , antepartum, single or unspecified fetus ([facility]) 06/01/2025 8:18 AM ESTNameTypePriorityAssociated DiagnosesOrder ScheduleUS OB follow up transabdominal approachImagingRoutine Excessive growth affecting management of , antepartum, single or unspecified fetus ([facility]) Expected: 05/27/2025, Expires: 09/25/2025documented as of this encounter Procedures Procedure NamePriorityDate/TimeAssociated DiagnosisCommentsPOCT URINALYSIS BSREZFSYCdmtkoq20/03/2025 1:16 PM EST 34 weeks gestation of ([facility]) Third trimester ([facility]) documented in this encounter Results * [...] / LateralityCollection Method / VolumeCollection Time Received PkzrCarvr07/03/2025 1:16 PM EST Narrative Authorizing ProviderResult TypeResult StatusCorey Angel DOPOINT OF CARE TEST ENTER/EDIT ORDERABLESFinal Result documented in this encounter Visit Diagnoses Diagnosis 34 weeks gestation of ([facility]) Third trimester ([facility]) state, incidental Yeast infection Excessive growth affecting management of , antepartum, single or unspecified fetus ([facility]) documented in this encounter Care Teams Team MemberRelationshipSpecialtyStart DateEnd Date Unallocated, Noms Provider, [address] [place] [address] PCP - GeneralFamily Eqvlsjix97/14/24 Treasure England DO [address] [place] [address] Referring QkdliujygGihfoytet45/14/24documented as of this encounter
--- OUTSIDE RECORDS SUMMARY | 2025-06-01 08:00 | XMS_ITS | Encounter Summary ---
Author Organization [facility] Address [address] [facility] [place] [address] Care Team Providers Care Pharmacy Operations Coordinator Name Role Phone Unallocated, Noms Provider Primary Care Provi aristeo Tomás Treasure DO Unavailable [phone] Encounter Details DateTypeDepartmentCare Team (Latest Contact Info)Iebxkznbnqw52/08/2025 8:00 AM ESTAncillary Procedure NATALIE KEARNS [address] [place] [address] Excessive growth affecting management of , antepartum, single or unspecified fetus ([facility]) Social History Tobacco UseTypesPacks/DayYears UsedDateSmoking Tobacco: NeverSmokeless Tobacco: NeverAlcohol UseStandard Drinks/WeekCommentsYes0 (1 standard drink = 0.6 oz pure alcohol)One drink per monthEstimated Date of DeliveryCommentsYes 6Based on last menstrual period of 09/28/2024Sex and Gender Information ValueDate RecordedSex Assigned at BirthNot on fileLegal CzrNnazjq00/15/2023 8:11 PM EDTGender IdentityNot on fileSexual OrientationNot on filedocumented as of this encounter Plan of Treatment DateTypeDepartmentCare Team (Latest Contact Info)Aawwebaibci95/17/2025 8:30 AM ESTRoutine NATALIE KEARNS [address] [facility] [place] [address] Nicole Ghosh PA [address] [place] [address] NameTypePriorityAssociated DiagnosesDate/TimeUS OB follow up transabdominal approachImagingRoutine Excessive growth affecting management of , antepartum, single or unspecified fetus ([facility]) 06/01/2025 8:18 AM ESTdocumented as of this encounter Visit Diagnoses Diagnosis Excessive growth affecting management of , antepartum, single or unspecified fetus ([facility]) documented in this encounter Care Teams Team MemberRelationshipSpecialtyStart DateEnd Date Unallocated, Noms Provider, [address] [place] [address] PCP - GeneralFamily Amzlxxyl37/14/24 Treasure England DO [address] [place] [address] Referring NdbfrdyndHpvuclkmz70/14/24documented as of this encounter
--- OUTSIDE RECORDS SUMMARY | 2025-06-03 19:58 | XMS_ITS | Encounter Summary ---
Author Organization [facility] Address [address] [facility] [place] [address] Care Team Providers Care Crop Or Grain Farmer Name Role Phone Unallocated, Noms Provider MD Primary Care Provi aristeo Tomás Treasure DO Unavailable [phone] Encounter Details DateTypeDepartmentCare Team (Latest Contact Info)Ikkbbuarsam88/28/2025Clinisync Result Encounter [facility] External Department Unsolicited Lora Ortiz DO [address] [place], [place] [id number] Social History Tobacco UseTypesPacks/DayYears UsedDateSmoking Tobacco: NeverSmokeless Tobacco: NeverAlcohol UseStandard Drinks/WeekCommentsYes0 (1 standard drink = 0.6 oz pure alcohol)One drink per monthEstimated Date of DeliveryCommentsYes 6Based on last menstrual period of 09/28/2024Sex and Gender Information ValueDate RecordedSex Assigned at BirthNot on fileLegal TotUehxzx46/15/2023 8:11 PM EDTGender IdentityNot on fileSexual OrientationNot on filedocumented as of this encounter Plan of Treatment DateTypeDepartmentCare Team (Latest Contact Info)Ewjyyfdqgib08/17/2025 8:30 AM ESTRoutine [facility] [address] [place] [address] Nicole Ghosh PA [address] [place] [address] documented as of this encounter Procedures Procedure NamePriorityDate/TimeAssociated DiagnosisCommentsUS OB BPP W NON-YJIRZO3805/22/2025 12:44 PM EST documented in this encounter Results * US OB BPP W NON-STRESS (05/22/2025 12:44 PM EST)Anatomical Region LateralityModalityOtherSpecimen (Source)Anatomical Location / Laterality Collection Method / VolumeCollection TimeReceived Time05/22/2025 12:44 PM EST Narrative 05/22/2025 12:46 PM EST [facility] ?[address] ? [place] [address] ? Ultrasound Report ? Signed ? Patient: NATHANIEL TAYLOR ?MR#: [id number] ?? : 1995 ?Acct:[id number] ?? Age/Sex: 29 / F ?ADM Date: 05/22/25 ?? Loc: [facility]O ? Attending Dr: Lora Ortiz D.O. ? Ordering Physician: Lora Ortiz D.O. ?? Date of Service: 05/22/25 ?? Procedure(s): US OB BPP w non-stress ?? Accession Number(s): [id number] ? cc: Kelly Mckenzie AMMONIA PRINT OPERATOR; Lora Ortiz D.O. ? [facility] ? [address] [facility] ? [place] [address] ? Patient Name: ?? NATHANIEL TAYLOR ? MRN: [facility]:[id number] ? date: 1995 ?Sex: F ?? Assigned Patient Location: FBCO ?? Current Patient Location: ? Accession/Order Number: [id number] ?? Exam Date: 05/22/2025 ??11:02 ?Report Date: 05/22/2025 ??12:44 ? At the request of: ?? LORA ??ANGEL ??DO ? Procedure: ??US OB BPP w non-stress ? Biophysical profile. ? Reason for exam: Racing heart beat ? COMPARISON: 05/15/2025 ? TECHNIQUE: Transabdominal imaging of the gravid uterus was obtained. ? FINDINGS: The licensed occupational therapy assistant reports a BPP of 8 out of 8. ??CLAUDE is normal at 14.6 ?? cm. ?? heart rate 129 bpm. ? US/ OB BPP w non-stress ?? IMPRESSION: BPP 8 out of 8. ? Impression dictated by: Himanshu Mckeon Jr., D.O. ??05/22/2025 12:44 PM ? Dictation Location: [facility]-- ? Electronically authenticated by: [id number] ??Y ?? Date: 05/22/2025 ??12:44 ? Dictated By: ?Himanshu Mckeon M.D. ? Signed By: ?05/22/25 1246 ? DD/ 1244 ? TD/TT: ? Community Specialist: Procedure Note Radiology, Radiologist, MD - 05/22/2025 [place] [address] Ultrasound Report Signed Patient: NATHANIEL TAYLOR [facility]#: [id number] : 1995Acct:[id number] Age/Sex: 29 / FADM Date: 05/22/25 Loc: [facility] Attending Dr: Lora Ortiz D.O. Ordering Physician: Lora Ortiz D.O. Date of Service: 05/22/25 Procedure(s): US OB BPP w non-stress Accession Number(s): [id number] cc: Kelly Mckenzie AMMONIA PRINT OPERATOR; Lora Ortiz D.O. The [address] [address] Patient Name: NATHANIEL TAYLOR MRN: [facility]:[id number] date: 1995 Sex: F Assigned Patient Location: [facility] Current Patient Location: Accession/Order Number: [id number] Exam Date: 05/22/2025 11:02 Report Date: 05/22/2025 12:44 At the request of: LORA ORTIZ DO Procedure: US OB BPP w non-stress Biophysical profile. Reason for exam: Racing heart beat COMPARISON: 05/15/2025 TECHNIQUE: Transabdominal imaging of the gravid uterus was obtained. FINDINGS: The licensed occupational therapy assistant reports a BPP of 8 out of 8. CLAUDE is normal at14.6 cm. heart rate 129 bpm. US/US OB BPP w non-stress IMPRESSION: BPP 8 out of 8. Impression dictated by: Himanshu Mckeon Jr., D.O. 05/22/2025 12:44 PM Dictation Location: [place] [address] Electronically authenticated by: [id number] Y Date: 2:44 Dictated By: Himanshu Mckeon M.D. Signed By:05/22/25 1246 DD/ 1244 TD/TT: Community Specialist: Authorizing ProviderResult TypeResult StatusCorey Angel DOCLINISYNC IMAGINGFinal Result documented in this encounter Visit Diagnoses Not on filedocumented in this encounter Care Teams Team MemberRelationshipSpecialtyStart DateEnd Date Unallocated, Noms Provider, [address] [place] [address] PCP - GeneralFamily Sgnpvija80/14/24 Treasure England DO [address] [place] [address] Referring AjhtqiaduQypoiexii39/14/24documented as of this encounter
--- OUTSIDE RECORDS SUMMARY | 2025-06-03 19:59 | XMS_ITS | Clinical Summary ---
Author Organization [employer] s tem Address [id number] [address] [place] [address] Care Team Providers Care Deblocker Name Role Phone Kelly Mckenzie YANELI-BOARD CERTIFIED FAMILY PHYSICIAN Primary Care Provider Allergies No known active [...] without aura and without status migrainosus, not ekkfwyohoie01/29/2023Pineal gland cyst05/23/2023Hx of cbirmryjei92/29/2023Vestibular cppzefua25/27/2023Choroid plexus cyst of fetus affecting care of mother, mgjuqhvgud10/10/2021 Family History Medical HistoryRelationNameCommentsBreast cancerMaternal GrandmotherDiabetes Maternal [...] Frequency of Binge DrinkingNot on file12/19/2019PHQ-2AnswerDate RecordedTotal Fvqwe017/29/2023ChildcareAnswerDate PjhbdpflKzrmiuiknYpvxrlr04/24/2020Employment AnswerDate HiooxpwvFltnrcvyivFostuev92/24/2020Hunger ScreeningAnswerDate RecordedWithin the past 12 months we worried whether our food would run out before we got money to buy more.Never True09/05/2023Within the past 12 months the food we bought just didn't last and we didn't have money to get more.Never True4Purpose - LifeAnswerDate RecordedPurpose and direction in life Afieosj73/11/2021CommentsNoSex and Gender InformationValueDate Recorded Sex Assigned at BirthNot on fileLegal VwoJbdeuy94/24/2020 11:48 AM EDTGender IdentityNot on fileSexual OrientationNot on file Last Filed Vital Signs Vital SignReadingTime TakenCommentsBlood Sbrjzrph641/7703 9:42 AM EDT Wjxey764309/05/2023 9:42 AM EDTTemperature--Respiratory Rate--Oxygen Saturation-- Inhaled Oxygen Concentration--Tovztt96.9 kg (202 lb 8 oz)09/05/2023 9:42 AM EDT Sasadm043.7 cm (5' 8 )09/05/2023 9:42 AM EDTBody Mass Index30.7909/05/2023 9:42 AM EDT Plan of Treatment Health MaintenanceDue DateLast DoneCommentsDTaP,Tdap and Td Vaccines (1 - Tdap) 12/19/2014Pap Smear12/19/2016Depression Wugfkpfjb81dult BMI Vfnrzyuhf36Tobacco Yjwdmyvry62Influenza Sxebesm7002/23/2025 Medical Devices Not on file Insurance Care Teams Team MemberRelationshipSpecialtyStart DateEnd Date Kelly Mckenzie APRN-BOARD CERTIFIED FAMILY PHYSICIAN [address], [facility] [address] [place] [address] PCP - GeneralFamily Tapdzccs86/13/23
--- OUTSIDE RECORDS SUMMARY | 2025-06-03 19:59 | XMS_ITS | Encounter Summary ---
Author Organization [facility] Address [address] [facility] [place] [address] Care Team Providers Care Allergist/Immunologist Name Role Phone Unallocated, Noms Provider MD Primary Care Provi aristeo Treasure England DO Unavailable [phone] Reason for Visit * ReasonCommentsMed Refill Encounter Details DateTypeDepartmentCare Team (Latest Contact Info)Ysagmvmblfo75/28/2025Refill NATALIE KEARNS [address] [place] [id number] Junito Ortiz DO [address] [place], [facility]11 Nausea and vomiting in ([facility] Social History Tobacco UseTypesPacks/DayYears UsedDateSmoking Tobacco: NeverSmokeless Tobacco: NeverAlcohol UseStandard Drinks/WeekCommentsYes0 (1 standard drink = 0.6 oz pure alcohol)One drink per monthEstimated Date of DeliveryCommentsYes 6Based on last menstrual period of 09/28/2024Sex and Gender Information ValueDate RecordedSex Assigned at BirthNot on fileLegal ByzYxeetq48/15/2023 8:11 PM EDTGender IdentityNot on fileSexual OrientationNot on filedocumented as of this encounter Plan of Treatment DateTypeDepartmentCare Team (Latest Contact Info)Snshlidlsgj27/17/2025 8:30 AM ESTRoutine [facility] [place] [facility] [address] [place] [address] Nicole Ghosh PA [address] [place], [facility]11 documented as of this encounter Visit Diagnoses Diagnosis Nausea and vomiting in ([facility]) Unspecified vomiting of , unspecified as to episode of care documented in this encounter Care Teams Team MemberRelationshipSpecialtyStart DateEnd Date Unallocated, Nomneena Mccollum MD [address] [facility] [address] PCP - GeneralFamily Ervmtozy47/14/24 Treasure England DO [address] [place] [id number] Referring GtvtsvwigAwaobtkap99/14/24documented as of this encounter
--- OUTSIDE RECORDS SUMMARY | 2025-06-03 19:59 | XMS_ITS | Encounter Summary ---
Author Organization [facility] Address [address] [facility] [place] [address] Care Team Providers Care Furs Salesperson Name Role Phone Unallocated, Noms Provider MD Primary Care Provi aristeo TomásTreasure DO Unavailable [phone] Encounter Details DateTypeDepartmentCare Team (Latest Contact Info)Qtoluxloiuc10/03/2025linisync Result Encounter [facility] External Department Unsolicited Lora Ortiz DO [address] [facility] [address] [place], [place] [id number] Social History Tobacco UseTypesPacks/DayYears UsedDateSmoking Tobacco: NeverSmokeless Tobacco: NeverAlcohol UseStandard Drinks/WeekCommentsYes0 (1 standard drink = 0.6 oz pure alcohol)One drink per monthEstimated Date of DeliveryCommentsYes 6Based on last menstrual period of 09/28/2024Sex and Gender Information ValueDate RecordedSex Assigned at BirthNot on fileLegal CfyIpejmr49/15/2023 8:11 PM EDTGender IdentityNot on fileSexual OrientationNot on filedocumented as of this encounter Plan of Treatment DateTypeDepartmentCare Team (Latest Contact Info)Mrpnzqyemkl82/17/2025 8:30 AM ESTRoutine [facility] [address] [place] [place] [address] Nicole Ghosh PA [address] [place] [address] documented as of this encounter Procedures Procedure NamePriorityDate/TimeAssociated DiagnosisCommentsUS OB BPP W NON-MMOOBP1005/27/2025 10:21 AM EST documented in this encounter Results * US OB BPP W NON-STRESS (05/27/2025 10:21 AM EST)Anatomical Region LateralityModalityOtherSpecimen (Source)Anatomical Location / Laterality Collection Method / VolumeCollection TimeReceived Time05/27/2025 10:21 AM EST Narrative 05/27/2025 10:24 AM EST [facility] ?[address] ? [place] [address] ? Ultrasound Report ? Signed ? Patient: NATHANIEL TAYLOR ?MR#: [id number] ?? : 1995 ?Acct:[id number] ?? Age/Sex: 29 / F ?ADM Date: 05/27/25 ?? Loc: FBC ??252-1 ? Attending Dr: Lora Ortiz D.O. ? Ordering Physician: Lora Ortiz D.O. ?? Date of Service: 05/27/25 ?? Procedure(s): US OB BPP w non-stress ?? Accession Number(s): [id number] ? cc: Kelly Mckenzie POINT OF CARE SPECIALIST; Lora Ortiz D.O. ? [facility] ? [address] ? [place] [address] ? Patient Name: ?? NATHANIEL TAYLOR ? MRN: [facility]:[id number] ? date: 1995 ?Sex: F ?? Assigned Patient Location: FBC ?? Current Patient Location: FBC ?? Accession/Order Number: [id number] ?? Exam Date: 05/27/2025 ??09:01 ?Report Date: [...] Dictation Location: RADIO-PC-02 ? Electronically authenticated by: [id number] ??Y ?? Date: 05/27/2025 ??10:21 ? Dictated By: ?Saumya Prajapati M.D. ? Signed By: ?12/03/25 1024 ? DD/ 1021 ? TD/TT: ? Merchandising Coordinator: Procedure Note Radiology, Radiologist, - 05/27/2025 [place] [address] Ultrasound Report Signed Patient: NATHANIEL TAYLOR AMR#: [id number] : 1995Acct:[id number] Age/Sex: 29 / FADM Date: 05/27/25 Loc: [facility] 252-[address]: Lora Ortiz D.O. Ordering Physician: Lora Ortiz D.O. Date of Service: 05/27/25 Procedure(s): US OB BPP w non-stress Accession Number(s): [id number] cc: Kelly Mckenzie POINT OF CARE SPECIALIST; Lora Ortiz D.O. The [place] [id number] Patient Name: NATHANIEL TAYLOR MRN: [id number]:[id number] date: 1995 Sex: F Assigned Patient Location: [facility] Current Patient Location: [facility] Accession/Order Number: [id number] Exam Date: 05/27/2025 09:01 Report Date: 05/27/2025 [...] Prajapati M.D. 05/27/2025 10:21 AM Dictation Location: [place] [address] Electronically authenticated by: [id number] Y Date: 0:21 Dictated By: Saumya Prajapati M.D. Signed By:05/27/25 1024 DD/ 1021 TD/TT: Merchandising Coordinator: Authorizing ProviderResult TypeResult StatusCorey Angel DOCLINISYNC IMAGINGFinal Result documented in this encounter Visit Diagnoses Not on filedocumented in this encounter Care Teams Team MemberRelationshipSpecialtyStart DateEnd Date Unallocated, Noms Provider, [address] [place] [address] PCP - GeneralFamily Stkchhug68/14/24 Treasure England DO [address] [place] [address] Referring UneaimkbsLwcpjextv87/14/24documented as of this encounter
--- OUTSIDE RECORDS SUMMARY | 2025-06-03 20:00 | XMS_ITS | Clinical Summary ---
Author Organization [facility] Healthcare Address [address] [place] [address] Care Team Providers Care Pit Furnace Melter Name Role Phone Unallocated, [facility] Provider MD Primary Care Provi aristeo Treasure England DO Unavailable [phone] Allergies Active AllergyReactionsCriticalityNoted DateCommentsPollen Ncwyuwe4709/19/2023 Other Reaction(s): Unknown Reaction Medications MedicationSigDispense QuantityRefillsLast FilledStart DateEnd DateStatus magnesium 100 MG tablet 3Active Probiotic Product (PROBIOTIC ADVANCED PO) ProbioticActive pyridoxine (Vitamin B-6) 25 MG tablet Take 25 mg by mouth DailyActive Doxylamine Succinate, Sleep, (UNISOM PO) Take by mouthActive ondansetron (Zofran) 4 MG tablet Indications:Nausea and vomiting in ([facility])Take 1 tablet (4 mg) by mouth every [...] 10 MG tablet Indications:Nausea and vomiting in ([facility])TAKE 1 TABLET BY MOUTH IN MORNING,AT NOON,IN [...] tablet Indications: related fatigue in second trimester ([facility]),Insomnia, unspecified typeTake 1 tablet (10 mg) by mouth as needed at bedtime for sleep for up to 5 days 5 tablet Discontinued promethazine (Phenergan) 12.5 MG tablet Indications:Nausea and vomiting in ([facility])Take 1 tablet (12.5 mg) by mouth every 8 (eight) hours if needed for nausea or vomiting for up to 30 doses Take 1 tablet by mouth every 6 hours as needed for nausea. 30 tablet Discontinued metoclopramide (Reglan) 10 MG tablet Indications:Nausea and vomiting in ([facility])TAKE 1 TABLET BY MOUTH IN MORNING,AT NOON,IN EVENING 30 MINUTES PRIOR TO MEALS NEEDED FOR NAUSEA 90 tablet Discontinued iron polysaccharides (ProFe) 391.3 (180 Fe) MG capsule Indications:Low ironTake 1 capsule (391.3 mg) by mouth Daily 30 capsule Expired Active Problems ProblemNoted DateDiagnosed DatePositive urine test ([facility])12/03/2024 Estimated Date of SrhmwmooYosdakdrGfo38/11/2026ased on last menstrual period of 09/28/2024 Encounters DateTypeDepartmentCare XffmYaklnjnubiy20/08/2025 8:00 AM ESTAncillary Procedure [facility] [address] [place] [address] Excessive growth affecting management of , antepartum, single or unspecified fetus ([facility])05/27/2025 1:00 PM ESTRoutine [facility] [address] [place] [address] Lora Ortiz, 34 weeks gestation of ([facility]); Third trimester ([facility]); Yeast infection; Excessive growth affecting management of , antepartum, single or unspecified fetus ([facility])5Clinisync Result Encounter [facility]OM[facility] External Department Unsolicited Lora Ortiz, DO 5Clinisync Result Encounter [facility] External Department Unsolicited Lora Ortiz, DO 05/22/2025Refill [facility] [address] [place] [address] Lora Ortiz, Nausea and vomiting in ([facility])5Clinisync Result Encounter [facility]OM[facility] External Department Unsolicited Lora Ortiz, 05/13/2025 1:20 PM ESTRoutine [facility] [address] [place] [address] Nicole Ghosh PA 32 weeks gestation of ([facility]); Third trimester ([facility]); Racing heart beat5Bamboo flowsheet [facility] [address] [address] Nicole Ghosh PA 04/29/2025 1:30 PM ESTRoutine [facility] [address] [place] [address] Lora Ortiz, Third trimester ([facility]); 30 weeks gestation of ([facility])04/29/2025 1:00 PM ESTAncillary Procedure [facility] [address] [place] [address] size inconsistent with dates ([facility])5Clinisync Result Encounter [facility]OM[facility] External Department Unsolicited Lora Ortiz, 5Clinisync Result Encounter NOMS External Department Unsolicited Lora Ortiz, DO 04/15/2025 1:00 PM EDTRoutine [facility] [place] [facility] [address] [address] Lora Ortiz, Third trimester ([facility]); 28 weeks gestation of ([facility]); size inconsistent with dates ([facility]); Racing heart beat04/15/2025bstract [facility] [place] [facility] [address] [place] [address] Mable Dior MA 04/15/2025amboo flowsheet [facility] [place] [facility] [address] [address] Lora Ortiz DO 04/13/2025bstract [facility] [address] [place] [address] Mable Dior MA 04/08/2025bstract [facility] [address] [place] [address] Marge Kirkland, ZAC 04/01/2025Telephone [facility] [place] [facility] [address] [place] [address] Ariadna Bowden MA 5Clinisync Result Encounter NOMS External Department Unsolicited Marge Kirkland, CORPORATE ANALYST 03/21/2025Refill [facility] [address] [place] [address] Lora Ortiz DO Nausea and vomiting in ([facility])03/18/2025 2:20 PM EDTRoutine [facility] [address] [place] [address] Lora Ortiz, Second trimester ([facility]); 24 weeks gestation of ([facility]); Diabetes mellitus /24/2025 2:00 PM EDTAncillary Procedure [facility] [address] [place] [address] Encounter for follow-up ultrasound of anatomy ([facility])03/05/2025bstract [facility] [address] [place] [address] Marge Kirkland NP from Last 3 [...] ValueDate RecordedSex Assigned at BirthNot on fileLegal FthUqvkxj90/15/2023 8:11 PM EDTGender IdentityNot on fileSexual OrientationNot on file Last Filed Vital Signs Vital SignReadingTime TakenCommentsBlood Mivrmleq260/6005/27/2025 1:03 PM EST Pulse--Temperature--Respiratory Rate--Oxygen Saturation--Inhaled Oxygen Concentration--Hihcfb959 kg (231 lb)05/27/2025 1:03 PM XZVSwhaof777.7 cm (5' 8 ) 01/23/2024 1:31 PM EDTBody Mass Index35.12001/23/2024 1:31 PM EDT Plan of Treatment DateTypeDepartmentCare Team (Latest Contact Info)Lzophhhxxhk39/17/2025 8:30 AM ESTRoutine [facility] [address] [address] Nicole Ghosh PA [address] [place] [address] Health MaintenanceDue DateLast DoneCommentsCOVID-19 Vaccine (2024- season) 2025Influenza Vaccine (#1)2025Pneumococcal Vaccine: Pediatrics (0 to 5 Years) and At-Risk Patients (6 to 64 Years)Aged OutNo longer eligible based on patient's age to complete this topic Procedures Procedure NamePriorityDate/TimeAssociated DiagnosisCommentsPOCT URINALYSIS FXFXFPEQBsgwogy58/03/2025 1:16 PM EST 34 weeks gestation of ([facility]) Third trimester ([facility]) US OB BPP W NON-OJFOIQ9005/27/2025 10:21 AM EST US OB BPP W NON-LEZVUQ7405/22/2025 12:44 PM EST US OB BPP W NON-MCLTBY2505/15/2025 3:36 PM EST POCT URINALYSIS ODMKRYVEZttgwey31/19/2025 1:32 PM EST 32 weeks gestation of ([facility]) Third trimester ([facility]) POCT URINALYSIS JCCBRMHMBjinegm29/05/2025 1:42 PM EST 30 weeks gestation of ([facility]) US OB FOLLOW UP TRANSABDOMINAL GPPGKXMASkzbkga57/05/2025 1:17 PM EST size inconsistent with dates ([facility]) CA ECHO DOPPLER NGVPAMXL82/29/2025 6:12 PM EDT ECG 12-LEAD04/22/2025 8:28 AM EDT POCT URINALYSIS EBEUVSCPJxqywwg71/22/2025 1:16 PM EDT 28 weeks gestation of ([facility]) ALL CBC WITH AUTO VWAUJfidnvg48/08/2025 9:19 AM EDT GLUCOSE 1 VFAHLyotljf94/08/2025 9:19 AM EDT POCT URINALYSIS QLWHSPZKLmwlrwt27/24/2025 2:39 PM EDT Second trimester ([facility]) US OB LIMITED 1+ IWEYRWCJsgoxig25/24/2025 2:17 PM EDT Encounter for follow-up ultrasound of anatomy ([facility]) from Last 3 Months Results * [...] / Laterality Collection Method / VolumeCollection TimeReceived BsszAfenc72/03/2025 1:16 PM EST Narrative Authorizing ProviderResult TypeResult StatusCorey Angel DOPOINT OF CARE TEST ENTER/EDIT ORDERABLESFinal Result * US OB BPP W NON-STRESS (05/27/2025 10:21 AM EST) Only the most recent of3 resultswithin the time period is included. Anatomical RegionLateralityModalityOtherSpecimen (Source)Anatomical Location / LateralityCollection Method / VolumeCollection TimeReceived Time05/27/2025 10:21 AM EST Narrative 05/27/2025 10:24 AM EST [facility] ?[address] ? [place] [address] ? Ultrasound Report ? Signed ? Patient: NATHANIEL TAYLOR ?MR#: [id number] ?? : 1995 ?Acct:[id number] ?? Age/Sex: 29 / F ?ADM Date: 05/27/25 ?? Loc: [facility] ??252-1 ? Attending Dr: Lora Ortiz D.O. ? Ordering Physician: Lora Ortiz D.O. ?? Date of Service: 05/27/25 ?? Procedure(s): US OB BPP w non-stress ?? Accession Number(s): [id number] ? cc: Kelly Mckenzie CORPORATE ANALYST; Lora Ortiz D.O. ? [facility] ? [facility]. [facility] ? [place] [address] ? Patient Name: ?? NATHANIEL TAYLOR ? MRN: [facility]:[id number] ? date: 1995 ?Sex: F ?? Assigned Patient Location: [facility] ?? Current Patient Location: [facility] ?? Accession/Order Number: [id number] ?? Exam Date: 05/27/2025 ??09:01 ?Report Date: [...] Dictation Location: RADIO-PC-02 ? Electronically authenticated by: [id number] ??Y ?? Date: 05/27/2025 ??10:21 ? Dictated By: ?Saumya Prajapati M.D. ? Signed By: ?12/03/25 1024 ? DD/ 1021 ? TD/TT: ? Rockboard Lather: Procedure Note Radiology, Radiologist, - 05/27/2025 [place] [address] Ultrasound Report Signed Patient: NATHANIEL TAYLOR AMR#: [id number] : 1995Acct:[id number] Age/Sex: 29 / FADM Date: 05/27/25 Loc: [facility] 252-[address]: Lora Ortiz D.O. Ordering Physician: Lora Ortiz D.O. Date of Service: 05/27/25 Procedure(s): US OB BPP w non-stress Accession Number(s): [id number] cc: Kelly Mckenzie CORPORATE ANALYST; Lora Ortiz D.O. The [place] [id number] Patient Name: NATHANIEL TAYLOR MRN: [facility]:[id number] date: 1995 Sex: F Assigned Patient Location: [facility] Current Patient Location: [facility] Accession/Order Number: [id number] Exam Date: 05/27/2025 09:01 Report Date: 05/27/2025 [...] Prajapati M.D. 05/27/2025 10:21 AM Dictation Location: [place] [address] Electronically authenticated by: [id number] Y Date: 0:21 Dictated By: Saumya Prajapati M.D. Signed By:05/27/25 1024 DD/ 1021 TD/TT: Rockboard Lather: Authorizing ProviderResult TypeResult StatusCorey Angel DOCLINISYNC IMAGINGFinal [...] EDT Narrative 04/22/2025 6:13 PM EDT [facility] ?[address] ? [place] ? Cardiology Report ? Signed ? Patient: NATHANIEL TAYLOR ?MR#: [id number] ?? : 1995 ?Acct:[id number] ?? Age/Sex: 29 / F ?ADM Date: 04/22/25 ?? Loc: CARD ? Attending Dr: Lora Ortiz D.O. ? Ordering Physician: Lora Ortiz D.O. ?? Date of Service: 04/22/25 ?? Procedure(s): CA echo doppler complete ?? Accession Number(s): [id number] ? cc: Kelly Mckenzie CORPORATE ANALYST; Lora Ortiz D.O. ? Patient Name: ? NATHANIEL TAYLOR ? MR#: [id number] ? : 1995 ? Exam Date: 04/22/2025 [...] ? 2.50 cm2, 2.50 cm2 ?? Deceleration Mercer: ? Pressure Half-Time: ? Peak Velocity(Antegrade Flow): [...] 1813 ? DD/ 1812 ? TD/TT: ? Rockboard Lather: Procedure Note Radiology, Radiologist, MD - 04/22/2025 [place] [address] Cardiology Report Signed Patient: NATHANIEL TAYLOR AMR#: [id number] : 1995Acct:[id number] Age/Sex: Date: 04/22/25 Loc: CARD Attending Dr: Lora Ortiz D.O. Ordering Physician: Lora Ortiz D.O. Date of Service: 04/22/25 Procedure(s): CA echo doppler complete Accession Number(s): [id number] cc: Kelly Mckenzie CORPORATE ANALYST; Lora Ortiz D.O. Patient Name: NATHANIEL TAYLOR MR#: [id number] : 1995 Exam Date: 04/22/2025 Ordering Doctor: [...] Area (VTI): 2.50 cm2, 2.50 cm2 Deceleration Mercer: Pressure Half-Time: Peak Velocity(Antegrade Flow): 1.55 m/s [...] Lopez M.D. Signed By:04/22/251812 DD/ 11 TD/TT: Rockboard Lather: Authorizing ProviderResult TypeResult StatusCorey Angel DOCLINISYNC IMAGINGFinal Result * ECG 12-LEAD (04/22/2025 8:28 AM EDT)Anatomical RegionLateralityModalityOther Specimen (Source)Anatomical Location / LateralityCollection Method / Volume Collection TimeReceived Time04/22/2025 8:28 AM EDT Narrative 04/22/2025 6:39 PM EDT [facility] ?[address] ? [place] [address] ? Electrocardiograph Report ? Signed ? Patient: NATHANIEL TAYLOR ?MR#: [id number] ?? : 1995 ?Acct:[id number] ?? Age/Sex: 29 / F ?ADM Date: 04/22/25 ?? Loc: CARD ? Attending Dr: Lora Ortiz D.O. ? Ordering Physician: Lora Ortiz D.O. ?? Date of Service: 04/22/25 ?? Procedure(s): ECG 12 lead ?? Accession Number(s): [id number] ? cc: ?[facility] ? Test Date: ?2025-04-22 ?? Pat Name: ? NATHANIEL TAYLOR ?Department: ? Room: ? - ?? Gender: ? Female ? Saturator: ? : ?1995 ? Requested By: LORA ORTIZ ?? Order Number: [id number] ?Reading MD: ?? SLY HERRERA ? Measurements ?? Intervals ?[place] ? Rate: ? 84 ? P: ?22 ?? GA: ? 139 ?QRS: ?88 ?? QRSD: ? 94 ? T: ?54 ?? QT: ? 361 ? QTc: ?429 ? Interpretive Statements ?? SINUS RHYTHM ?? No previous ECG available for comparison ?? Electronically Signed On 04-22-2025 18:39:57 EDT by SLY HERRERA ? Dictated By: ?Sly Herrera M.D. ? Signed By: ?10/29/25 1839 ?10/29/25 1839 ? DD/DT: //25 0828 ? TD/TT: ? Rockboard Lather: Procedure Note Radiology, Radiologist, - 04/22/2025 [place] [address] Electrocardiograph Report Signed Patient: NATHANIEL TAYLOR AMR#: [id number] : 1995Acct:[id number] Age/Sex: Date: 04/22/25 Loc: CARD Attending Dr: Lora Ortiz D.O. Ordering Physician: Lora Ortiz D.O. Date of Service: 04/22/25 Procedure(s): ECG 12 lead Accession Number(s): [id number] cc: [facility] Test Date: 2025-04-22 Pat Name: NATHANIEL TAYLOR Department: Room: - Gender: Female Saturator: : 1995 Requested By: LORA ORTIZ Order Number: [id number] Reading MD: SLY HERRERA Measurements Intervals [place] Rate: 84 P: 22 GA: 139 QRS: 88 QRSD: 94 T: 54 QT: 361 QTc: 429 Interpretive Statements SINUS RHYTHM No previous ECG available for comparison Electronically Signed On 04-22-2025 18:39:57 EDT by SLY HERRERA Dictated By: Sly Herrera M.D. Signed By:04/22/25183804/22/251838 DD/ 0828 TD/TT: Rockboard Lather: Authorizing ProviderResult TypeResult StatusCorey Angel DOCLINISYNC IMAGINGFinal Result * GLUCOSE 1 HOUR (04/01/2025 9:19 AM EDT)ComponentValueRef RangeTest Method Analysis TimePerformed AtPathologist SignatureGLUCOSE 1 JLHD528<130 mg/dLTBH Specimen (Source)Anatomical Location / LateralityCollection Method [...] 35.2 g/dLTBHTBH RDW12.611.0 - 15.0 % TBHTBH JRN108568 - 450 10 3/uLTBHTBH MPV11.09.5 - 13.5 [...] 10:35 AM EDT Authorizing ProviderResult TypeResult StatusMarge Kirkalnd NPCLINISYNCFinal ResultPerforming OrganizationAddressCity/State/ZIP CodePhone Number CLINISYJUANA [facility] * US OB limited 1+ fetuses (03/18/2025 [...] Date Unallocated, [facility] Provider, [address] [place] [address] PCP - GeneralFamily Xctfgsdb61/14/24 Treasure England DO [address] [place] [address] Referring TbxvnasqiNlmqisitw70/14/24
[2025-06-03] MEDS: BETAMETHASONE ACE/BETAMETHASONE SOD PHOS 30 MG/5 ML 12 MG IM (20:16)
== END 2025-06-03 20:19 | disposition home or self-care (01) ==
LOC: FBCO 20:01 → FBC 20:05
PROVIDERS: PCP Nurse Practitioner Family; Visit Provider Obstetrics & Gynecology
DX: O26.893 Other specified pregnancy related conditions, third trimester (principal)
CPT/HCPCS: 96372; J0702

== ENCOUNTER 2025-06-05 15:03 | Outpatient (OUT) | payer OTHER, SELFPAY ==
--- OUTSIDE RECORDS SUMMARY | 2025-05-27 13:00 | XMS_ITS | Encounter Summary ---
Author Organization [facility] Address [address] [facility] [place] [address] Care Team Providers Care Telegraphic Typewriter Mechanic Name Role Phone Unallocated, Noms Provider MD Primary Care Provi aristeo TomásTreasure DO Unavailable [phone] Reason for Visit * ReasonCommentsRoutine Visit Encounter Details DateTypeDepartmentCare Team (Latest Contact Info)Upafpffeovn64/03/2025 1:00 PM ESTRoutine [facility] [place] [facility] [address] [place] [address] Junito Ortiz DO [address] [place], [place] [id number] 34 weeks gestation of ([facility]); Third trimester ([facility]); Yeast infection; Excessive growth affecting management of , antepartum, single or unspecified fetus ([facility]) Social History Tobacco UseTypesPacks/DayYears UsedDateSmoking Tobacco: NeverSmokeless Tobacco: NeverAlcohol UseStandard Drinks/WeekCommentsYes0 (1 standard drink = 0.6 oz pure alcohol)One drink per monthEstimated Date of DeliveryCommentsYes 6Based on last menstrual period of 09/28/2024Sex and Gender Information ValueDate RecordedSex Assigned at BirthNot on fileLegal MgyWvktnm89/15/2023 8:11 PM EDTGender IdentityNot on fileSexual OrientationNot on filedocumented as of this encounter Last Filed Vital Signs Vital SignReadingTime TakenCommentsBlood Mshputcn974/6012 1:03 PM EST Pulse--Temperature--Respiratory Rate--Oxygen Saturation--Inhaled Oxygen Concentration--Ivfsxh920 kg (231 lb)05/27/2025 1:03 PM ESTHeight--Body Mass [...] nursing note reviewed. Exam conducted with a intervention nurse present. Vitals: Estimated body mass index is 35.12 kg/m?? as calculated from the following: Height as of 01/23/24: 5' 8 . Weight as of this encounter: 231 lb. BP: 122/60 Patient's last menstrual period was 09/28/2024. Assessment/Plan ICD-10-CM 1. 34 weeks gestation of ([facility]) Z3A.34 POCT urinalysis dipstick manually resulted 2. Third trimester ([facility]) Z34.93 POCT urinalysis dipstick manually resulted Assessment/Plan [...] Plan of Treatment DateTypeDepartmentCare Team (Latest Contact Info)Hkbdkhkpybq18/17/2025 11:20 AM ESTRoutine [facility] [address] [place] [phone] Junito Ortiz DO [address] [place] [address] NameTypePriorityAssociated DiagnosesDate/TimeUS OB follow up transabdominal approachImagingRoutine Excessive growth affecting management of , antepartum, single or unspecified fetus ([facility]) 06/01/2025 8:18 AM ESTNameTypePriorityAssociated DiagnosesOrder ScheduleUS OB follow up transabdominal approachImagingRoutine Excessive growth affecting management of , antepartum, single or unspecified fetus ([facility]) Expected: 05/27/2025, Expires: 09/25/2025documented as of this encounter Procedures Procedure NamePriorityDate/TimeAssociated DiagnosisCommentsPOCT URINALYSIS TOIRXHNLNgbnkjl23/03/2025 1:16 PM EST 34 weeks gestation of ([facility]) Third trimester ([facility]) documented in this encounter Results * (ABNORMAL) [...] / LateralityCollection Method / VolumeCollection Time Received YbcvYfhti54/03/2025 1:16 PM EST Narrative Authorizing ProviderResult TypeResult StatusCorey Angel DOPOINT OF CARE TEST ENTER/EDIT ORDERABLESFinal Result documented in this encounter Visit Diagnoses Diagnosis 34 weeks gestation of ([facility]) Third trimester ([facility]) state, incidental Yeast infection Excessive growth affecting management of , antepartum, single or unspecified fetus ([facility]) documented in this encounter Care Teams Team MemberRelationshipSpecialtyStart DateEnd Date Unallocated, Noms Provider, [address] [place] [address] PCP - GeneralFamily Mimugujw22/14/24 Treasure England DO [address] [place] [address] Referring RvkadveiiFhjqsxcxz69/14/24documented as of this encounter
--- OUTSIDE RECORDS SUMMARY | 2025-06-01 08:00 | XMS_ITS | Encounter Summary ---
Author Organization [facility] Address [address] [facility] [place] [address] Care Team Providers Care Bonderizer Name Role Phone Unallocated, Noms Provider Primary Care Provi aristeo Treasure England DO Unavailable [phone] Encounter Details DateTypeDepartmentCare Team (Latest Contact Info)Fqhgsqnqvgb68/08/2025 8:00 AM ESTAncillary Procedure NOMDominguez KEARNS [address] [place] [address] Excessive growth affecting management of , antepartum, single or unspecified fetus ([facility]) Social History Tobacco UseTypesPacks/DayYears UsedDateSmoking Tobacco: NeverSmokeless Tobacco: NeverAlcohol UseStandard Drinks/WeekCommentsYes0 (1 standard drink = 0.6 oz pure alcohol)One drink per monthEstimated Date of DeliveryCommentsYes 6Based on last menstrual period of 09/28/2024Sex and Gender Information ValueDate RecordedSex Assigned at BirthNot on fileLegal WfiPgiazy72/15/2023 8:11 PM EDTGender IdentityNot on fileSexual OrientationNot on filedocumented as of this encounter Plan of Treatment DateTypeDepartmentCare Team (Latest Contact Info)Ewdipxfpbgi83/17/2025 11:20 AM ESTRoutine NATALIE KEARNS [address] [place] [address] Junito Ortiz DO [address] [place] [address] NameTypePriorityAssociated DiagnosesDate/TimeUS OB follow up transabdominal approachImagingRoutine Excessive growth affecting management of , antepartum, single or unspecified fetus ([facility]) 06/01/2025 8:18 AM ESTdocumented as of this encounter Visit Diagnoses Diagnosis Excessive growth affecting management of , antepartum, single or unspecified fetus ([facility]) documented in this encounter Care Teams Team MemberRelationshipSpecialtyStart DateEnd Date Unallocated, Noms Provider, [place] [address] PCP - GeneralFamily Muvlqctu81/14/24 Treasure England DO [address] [place] [address] Referring PytomuptgYeokwsfii66/14/24documented as of this encounter
--- OUTSIDE RECORDS SUMMARY | 2025-06-05 15:07 | XMS_ITS | Encounter Summary ---
Author Organization [facility] Address [address] [facility] [place] [address] Care Team Providers Care Athletic Equipment Manager Name Role Phone Unallocated, [facility] Provider MD Primary Care Provi aristeo Tomás Treasure DO Unavailable [phone] Encounter Details DateTypeDepartmentCare Team (Latest Contact Info)Qdhdsckovbj42/28/2025Clinisync Result Encounter [facility] External Department Unsolicited Lora Ortiz DO [address], [place] [address] Social History Tobacco UseTypesPacks/DayYears UsedDateSmoking Tobacco: NeverSmokeless Tobacco: NeverAlcohol UseStandard Drinks/WeekCommentsYes0 (1 standard drink = 0.6 oz pure alcohol)One drink per monthEstimated Date of DeliveryCommentsYes 6Based on last menstrual period of 09/28/2024Sex and Gender Information ValueDate RecordedSex Assigned at BirthNot on fileLegal OyoQpyavk24/15/2023 8:11 PM EDTGender IdentityNot on fileSexual OrientationNot on filedocumented as of this encounter Plan of Treatment DateTypeDepartmentCare Team (Latest Contact Info)Qzpdiwfqtwy15/17/2025 11:20 AM ESTRoutine [facility] [place] [facility] [address] [place] [address] Lora Ortiz DO [address] [place] [address] documented as of this encounter Procedures Procedure NamePriorityDate/TimeAssociated DiagnosisCommentsUS OB BPP W NON-KURDYC3705/22/2025 12:44 PM EST documented in this encounter Results * US OB BPP W NON-STRESS (05/22/2025 12:44 PM EST)Anatomical Region LateralityModalityOtherSpecimen (Source)Anatomical Location / Laterality Collection Method / VolumeCollection TimeReceived Time05/22/2025 12:44 PM EST Narrative 05/22/2025 12:46 PM EST [facility] ?[address] ? [place] [address] ? Ultrasound Report ? Signed ? Patient: NATHANIEL TAYLOR ?MR#: [id number] ?? : 1995 ?Acct:[id number] ?? Age/Sex: 29 / F ?ADM Date: 05/22/25 ?? Loc: [facility]O ? Attending Dr: Lora Ortiz D.O. ? Ordering Physician: Lora Ortiz D.O. ?? Date of Service: 05/22/25 ?? Procedure(s): US OB BPP w non-stress ?? Accession Number(s): [id number] ? cc: Kelly Mckenzie GLOBAL LEAD; Lora Ortiz D.O. ? [facility] ? [address] ? [place] [address] ? Patient Name: ?? NATHANIEL TAYLOR ? MRN: [facility]:[id number] ? date: 1995 ?Sex: F ?? Assigned Patient Location: [facility]O ?? Current Patient Location: ? Accession/Order Number: [id number] ?? Exam Date: 05/22/2025 ??11:02 ?Report Date: 05/22/2025 ??12:44 ? At the request of: ?? LORA ??ANGEL ??DO ? Procedure: ??US OB BPP w non-stress ? Biophysical profile. ? Reason for exam: Racing heart beat ? COMPARISON: 05/15/2025 ? TECHNIQUE: Transabdominal imaging of the gravid uterus was obtained. ? FINDINGS: The manual training teacher reports a BPP of 8 out of 8. ??CLAUDE is normal at 14.6 ?? cm. ?? heart rate 129 bpm. ? US/ OB BPP w non-stress ?? IMPRESSION: BPP 8 out of 8. ? Impression dictated by: Himanshu Mckeon Jr., D.O. ??05/22/2025 12:44 PM ? Dictation Location: [facility]-- ? Electronically authenticated by: [id number] ??Y ?? Date: 05/22/2025 ??12:44 ? Dictated By: ?Himanshu Mckeon M.D. ? Signed By: ?05/22/25 1246 ? DD/ 1244 ? TD/TT: ? Ceramic Mold Designer: Procedure Note Radiology, Radiologist, MD - 05/22/2025 [place] [address] Ultrasound Report Signed Patient: NATHANIEL TAYLOR AMR#: [id number] : 1995Acct:[id number] Age/Sex: 29 / FADM Date: 05/22/25 Loc: [facility] Attending Dr: Lora Ortiz D.O. Ordering Physician: Lroa Ortiz D.O. Date of Service: 05/22/25 Procedure(s): US OB BPP w non-stress Accession Number(s): [id number] cc: Kelly Mckenzie GLOBAL LEAD; Lora Ortiz D.O. The [place] [id number] Patient Name: NATHANIEL TAYLOR MRN: [facility]:[id number] date: 1995 Sex: F Assigned Patient Location: [facility] Current Patient Location: Accession/Order Number: [id number] Exam Date: 05/22/2025 11:02 Report Date: 05/22/2025 12:44 At the request of: LORA ORTIZ DO Procedure: US OB BPP w non-stress Biophysical profile. Reason for exam: Racing heart beat COMPARISON: 05/15/2025 TECHNIQUE: Transabdominal imaging of the gravid uterus was obtained. FINDINGS: The manual training teacher reports a BPP of 8 out of 8. CLAUDE is normal at14.6 cm. heart rate 129 bpm. US/US OB BPP w non-stress IMPRESSION: BPP 8 out of 8. Impression dictated by: Himanshu Mckeon Jr., D.O. 05/22/2025 12:44 PM Dictation Location: [place] [address] Electronically authenticated by: [id number] Y Date: 2:44 Dictated By: Himanshu Mckeon M.D. Signed By:05/22/25 1246 DD/ 1244 TD/TT: Ceramic Mold Designer: Authorizing ProviderResult TypeResult StatusCorey Angel DOCLINISYNC IMAGINGFinal Result documented in this encounter Visit Diagnoses Not on filedocumented in this encounter Care Teams Team MemberRelationshipSpecialtyStart DateEnd Date Unallocated, [facility]oms Provider, [address] [place] [address] PCP - GeneralFamily Ztazysfs69/14/24 Treasure England DO [address] [place] [address] Referring AyrvyyjniNlquanmvl53/14/24documented as of this encounter
--- OUTSIDE RECORDS SUMMARY | 2025-06-05 15:07 | XMS_ITS | Encounter Summary ---
Author Organization [facility] Address [address] [facility] [place] [address] Care Team Providers Care Director Of Clinical Trials Name Role Phone Unallocated, Noms Provider MD Primary Care Provi aristeo TomásTreasure DO Unavailable [phone] Encounter Details DateTypeDepartmentCare Team (Latest Contact Info)Wrluvhxeejd35/03/2025linisync Result Encounter [facility] External Department Unsolicited Lora Ortiz DO [address], [place] [address] Social History Tobacco UseTypesPacks/DayYears UsedDateSmoking Tobacco: NeverSmokeless Tobacco: NeverAlcohol UseStandard Drinks/WeekCommentsYes0 (1 standard drink = 0.6 oz pure alcohol)One drink per monthEstimated Date of DeliveryCommentsYes 6Based on last menstrual period of 09/28/2024Sex and Gender Information ValueDate RecordedSex Assigned at BirthNot on fileLegal PryCrxelm61/15/2023 8:11 PM EDTGender IdentityNot on fileSexual OrientationNot on filedocumented as of this encounter Plan of Treatment DateTypeDepartmentCare Team (Latest Contact Info)Khkfnqligga90/17/2025 11:20 AM ESTRoutine [facility] [address] [place] [address] Lora Ortiz DO [address] [place] [address] documented as of this encounter Procedures Procedure NamePriorityDate/TimeAssociated DiagnosisCommentsUS OB BPP W NON-JYJLBR0405/27/2025 10:21 AM EST documented in this encounter Results * US OB BPP W NON-STRESS (05/27/2025 10:21 AM EST)Anatomical Region LateralityModalityOtherSpecimen (Source)Anatomical Location / Laterality Collection Method / VolumeCollection TimeReceived Time05/27/2025 10:21 AM EST Narrative 05/27/2025 10:24 AM EST [facility] ?[address] ? [place] [address] ? Ultrasound Report ? Signed ? Patient: NATHANIEL TAYLOR ?MR#: [id number] ?? : 1995 ?Acct:[id number] ?? Age/Sex: 29 / F ?ADM Date: 05/27/25 ?? Loc: FBC ??252-1 ? Attending Dr: Lora Ortiz D.O. ? Ordering Physician: Lora Ortiz D.O. ?? Date of Service: 05/27/25 ?? Procedure(s): US OB BPP w non-stress ?? Accession Number(s): [id number] ? cc: Kelly Mckenzie SEED TESTER; Lora Ortiz D.O. ? [facility] ? [facility] ? [place] [address] ? Patient Name: ?? NATHANIEL TAYLOR ? MRN: [facility]:[id number] ? date: 1995 ?Sex: F ?? Assigned Patient Location: FBC ?? Current Patient Location: FBC ?? Accession/Order Number: [id number] ?? Exam Date: 05/27/2025 ??09:01 ?Report Date: [...] Dictation Location: RADIO-PC-02 ? Electronically authenticated by: [id number] ??Y ?? Date: 05/27/2025 ??10:21 ? Dictated By: ?Saumya Prajapati M.D. ? Signed By: ?12/03/25 1024 ? DD/ 1021 ? TD/TT: ? Buck Presser: Procedure Note Radiology, Radiologist, - 05/27/2025 [place] [address] Ultrasound Report Signed Patient: NATHANIEL TAYLOR AMR#: [id number] : 1995Acct:[id number] Age/Sex: 29 / FADM Date: 05/27/25 Loc: [facility] 252-[address]: Lora Ortiz D.O. Ordering Physician: Lora Ortiz D.O. Date of Service: 05/27/25 Procedure(s): US OB BPP w non-stress Accession Number(s): [id number] cc: Kelly Mckenzie SEED TESTER; Lora Ortiz D.O. The [place] [id number] Patient Name: NATHANIEL TAYLOR MRN: [facility]:[id number] date: 1995 Sex: F Assigned Patient Location: [facility] Current Patient Location: [facility] Accession/Order Number: [id number] Exam Date: 05/27/2025 09:01 Report Date: 05/27/2025 [...] Prajapati M.D. 05/27/2025 10:21 AM Dictation Location: [place] [address] Electronically authenticated by: [id number] Y Date: 0:21 Dictated By: Saumya Prajapati M.D. Signed By:05/27/25 1024 DD/ 1021 TD/TT: Buck Presser: Authorizing ProviderResult TypeResult StatusCorey Angel DOCLINISYNC IMAGINGFinal Result documented in this encounter Visit Diagnoses Not on filedocumented in this encounter Care Teams Team MemberRelationshipSpecialtyStart DateEnd Date Unallocated, Noms Provider, [address] [place] [address] PCP - GeneralFamily Uhnibdhb30/14/24 Treasure England DO [address] [place] [address] Referring UoplvabssTbrocbiwo16/14/24documented as of this encounter
--- OUTSIDE RECORDS SUMMARY | 2025-06-05 15:07 | XMS_ITS | Clinical Summary ---
Author Organization [facility] Address [address] [facility] [place] [address] Care Team Providers Care Visual Basic .Net Developer Name Role Phone Unallocated, [facility] Provider MD Primary Care Provi aristeo Treasure England DO Unavailable [phone] Allergies Active AllergyReactionsCriticalityNoted DateCommentsPollen Hvzutxc2109/19/2023 Other Reaction(s): Unknown Reaction Medications MedicationSigDispense QuantityRefillsLast FilledStart DateEnd DateStatus magnesium 100 MG tablet 3Active Probiotic Product (PROBIOTIC ADVANCED PO) ProbioticActive pyridoxine (Vitamin B-6) 25 MG tablet Take 25 mg by mouth DailyActive Doxylamine Succinate, Sleep, (UNISOM PO) Take by mouthActive ondansetron (Zofran) 4 MG tablet Indications:Nausea and vomiting in ([facility])Take 1 tablet (4 mg) by [...] 10 MG tablet Indications:Nausea and vomiting in ([facility])TAKE 1 TABLET BY MOUTH IN MORNING,AT NOON,IN EVENING 30 MINUTES PRIOR TO MEALS NEEDED FOR NAUSEA 90 tablet 5Active pantoprazole (Protonix) 40 MG EC tablet Indications:Gastroesophageal reflux disease with esophagitis, unspecified whether hemorrhageTake 1 tablet (40 mg) by mouth in the morning. Take before meals. Do not crush, chew, or split. 30 tablet 11012/17/Discontinued Ambien 10 MG tablet Indications: related fatigue in second trimester ([facility]),Insomnia, unspecified typeTake 1 tablet (10 mg) by mouth as needed at bedtime for sleep for up to 5 days 5 tablet Discontinued promethazine (Phenergan) 12.5 MG tablet Indications:Nausea and vomiting in ([facility])Take 1 tablet (12.5 mg) by mouth every 8 (eight) hours if needed for nausea or vomiting for up to 30 doses Take 1 tablet by mouth every 6 hours as needed for nausea. 30 tablet Discontinued metoclopramide (Reglan) 10 MG tablet Indications:Nausea and vomiting in ([facility])TAKE 1 TABLET BY MOUTH IN MORNING,AT NOON,IN EVENING 30 MINUTES PRIOR TO MEALS NEEDED FOR NAUSEA 90 tablet Discontinued iron polysaccharides (ProFe) 391.3 (180 Fe) MG capsule Indications:Low ironTake 1 capsule (391.3 mg) by mouth Daily 30 capsule Expired terconazole (Terazol 7) 0.4 % vaginal cream Indications:Yeast infectionInsert 1 applicator into the vagina at bedtime for 7 days 45 g Expired Active Problems ProblemNoted DateDiagnosed DatePositive urine test ([facility])12/03/2024 Estimated Date of EngothpgKjkbgvgsLum26/11/2026ased on last menstrual period of 09/28/2024 Encounters DateTypeDepartmentCare EbzuWikckhwtkab92/08/2025 8:00 AM ESTAncillary Procedure [facility] [place] [facility] [address] [place] [address] [place] [address] Excessive growth affecting management of , antepartum, single or unspecified fetus ([facility])05/27/2025 1:00 PM ESTRoutine [facility] [place] [facility] [address] [place] [address] Lora Ortiz, 34 weeks gestation of ([facility]); Third trimester ([facility]); Yeast infection; Excessive growth affecting management of , antepartum, single or unspecified fetus ([facility])5Clinisync Result Encounter [facility] External Department Unsolicited Lora Ortiz, DO 5Clinisync Result Encounter [facility] External Department Unsolicited Lora Ortiz, DO 05/22/2025Refill [facility] [place] [facility] [address] [place] [address] Lora Ortiz, Nausea and vomiting in ([facility])5Clinisync Result Encounter [facility] External Department Unsolicited Lora Ortiz, 05/13/2025 1:20 PM ESTRoutine [facility] [place] [facility] [address] [place] [address] Nicole Ghosh PA 32 weeks gestation of ([facility]); Third trimester ([facility]); Racing heart beat5Bamboo flowsheet [facility] [place] [facility] [address] [facility] [place] [address] Nicole Ghosh PA 04/29/2025 1:30 PM ESTRoutine [facility] [place] [facility] [address] [place] [address] Lora Ortiz, Third trimester ([facility]); 30 weeks gestation of ([facility])04/29/2025 1:00 PM ESTAncillary Procedure [facility] [place] [facility] [address] [facility] [place] [address] size inconsistent with dates ([facility])5Clinisync Result Encounter [facility] External Department Unsolicited Angel, Lora, 04/22/2025linisync Result Encounter [facility] External Department Unsolicited Lora Ortiz, DO 04/15/2025 1:00 PM EDTRoutine [facility] [place] [facility] [address] [facility] [place] [address] Loar Ortiz, Third trimester ([facility]); 28 weeks gestation of ([facility]); size inconsistent with dates ([facility]); Racing heart beat04/15/2025bstract [facility] [place] [facility] [address] [facility] [place] [address] Mable Dior MA 04/15/2025amboo flowsheet [facility] [place] [facility] [address] [facility] [place] [address] Lora Ortiz, 04/13/2025bstract [facility] [place] [facility] [address] [facility] [place] [address] Mable Dior MA 04/08/2025bstract [facility] [place] [facility] [address] [facility] [place] [address] Marge Kirkland, ZAC 04/01/2025Telephone [facility] [place] [facility] [address] [facility] [place] [address] Ariadna Bowden MA 04/01/2025linisync Result Encounter [facility]OM[facility] External Department Unsolicited Marge Kirkland, ZAC 03/21/2025Refill [facility] [place] [facility] [address] [facility] [place] [address] Lora Ortiz DO Nausea and vomiting in ([facility])03/18/2025 2:20 PM EDTRoutine [facility] [place] [facility] [address] [facility] [place] [address] Lora Ortiz, DO Second trimester ([facility]); 24 weeks gestation of ([facility]); Diabetes mellitus reelheofn71/24/2025 2:00 PM EDTAncillary Procedure [facility] [place] [facility] [address] [place] [address] [place] [address] Encounter for follow-up ultrasound of anatomy ([facility])from Last 3 Months Family History Medical [...] ValueDate RecordedSex Assigned at BirthNot on fileLegal ZsrUwccjz48/15/2023 8:11 PM EDTGender IdentityNot on fileSexual OrientationNot on file Last Filed Vital Signs Vital SignReadingTime TakenCommentsBlood Qyvlmqyt645/6005/27/2025 1:03 PM EST Pulse--Temperature--Respiratory Rate--Oxygen Saturation--Inhaled Oxygen Concentration--Cmplpk549 kg (231 lb)05/27/2025 1:03 PM URQVezcck248.7 cm (5' 8 ) 01/23/2024 1:31 PM EDTBody Mass Index35.12001/23/2024 1:31 PM EDT Plan of Treatment DateTypeDepartmentCare Team (Latest Contact Info)Evpfhznyhqe81/17/2025 11:20 AM ESTRoutine [facility] [place] [facility] [address] [facility] [place] [address] AngelLora denis, DO [address] [facility] [place] [address] Health MaintenanceDue DateLast DoneCommentsCOVID-19 Vaccine (2024- season) 2025Influenza Vaccine (#1)2025Pneumococcal Vaccine: Pediatrics (0 to 5 Years) and At-Risk Patients (6 to 64 Years)Aged OutNo longer eligible based on patient's age to complete this topic Procedures Procedure NamePriorityDate/TimeAssociated DiagnosisCommentsPOCT URINALYSIS MZWXNPUGRrbqepj92/03/2025 1:16 PM EST 34 weeks gestation of ([facility]) Third trimester ([facility]) US OB BPP W NON-DZFOHT2405/27/2025 10:21 AM EST US OB BPP W NON-XSMCEJ7105/22/2025 12:44 PM EST US OB BPP W NON-WJLIYB4305/15/2025 3:36 PM EST POCT URINALYSIS CBJXDLJEMfbfbdf17/19/2025 1:32 PM EST 32 weeks gestation of ([facility]) Third trimester ([facility]) POCT URINALYSIS ZNBQTSTQSnybpzp77/05/2025 1:42 PM EST 30 weeks gestation of ([facility]) US OB FOLLOW UP TRANSABDOMINAL PHQKCNPPXupmhqk09/05/2025 1:17 PM EST size inconsistent with dates ([facility]) CA ECHO DOPPLER IMVWHHCZ72/29/2025 6:12 PM EDT ECG 12-LEAD04/22/2025 8:28 AM EDT POCT URINALYSIS LAXZMPCRKglzbub21/22/2025 1:16 PM EDT 28 weeks gestation of ([facility]) ALL CBC WITH AUTO KFSJBovhzsu86/08/2025 9:19 AM EDT GLUCOSE 1 QROMTicytwv68/08/2025 9:19 AM EDT POCT URINALYSIS JJYKFXXBQgkhhui73/24/2025 2:39 PM EDT Second trimester ([facility]) US OB LIMITED 1+ UTHOWOLGuunilm62/24/2025 2:17 PM EDT Encounter for follow-up ultrasound of anatomy ([facility]) from Last 3 Months Results * [...] / Laterality Collection Method / VolumeCollection TimeReceived GfzkPbvxk41/03/2025 1:16 PM EST Narrative Authorizing ProviderResult TypeResult StatusCorey Angel DOPOINT OF CARE TEST ENTER/EDIT ORDERABLESFinal Result * US OB BPP W NON-STRESS (05/27/2025 10:21 AM EST) Only the most recent of3 resultswithin the time period is included. Anatomical RegionLateralityModalityOtherSpecimen (Source)Anatomical Location / LateralityCollection Method / VolumeCollection TimeReceived Time05/27/2025 10:21 AM EST Narrative 05/27/2025 10:24 AM EST [facility] ?[address] ? [place], [facility] ? Ultrasound Report ? Signed ? Patient: NATHANIEL TAYLOR A ?MR#: [id number] ?? : 1995 ?Acct:[id number] ?? Age/Sex: 29 / F ?ADM Date: 05/27/25 ?? Loc: FBC ??252-1 ? Attending Dr: Lora Ortiz D.O. ? Ordering Physician: Lora Ortiz D.O. ?? Date of Service: 05/27/25 ?? Procedure(s): US OB BPP w non-stress ?? Accession Number(s): [id number] ? cc: Kelly Mckenzie PHYSICIAN COMPENSATION ANALYST; Lora Ortiz D.O. ? [facility] ? [address] ? [place] [address] ? Patient Name: ?? NATHANIEL TAYLOR ? MRN: [facility]:[id number] ? date: 1995 ?Sex: F ?? Assigned Patient Location: FBC ?? Current Patient Location: FBC ?? Accession/Order Number: [id number] ?? Exam Date: 05/27/2025 ??09:01 ?Report Date: [...] Dictation Location: RADIO-PC-02 ? Electronically authenticated by: [id number] ??Y ?? Date: 05/27/2025 ??10:21 ? Dictated By: ?Saumya Prajapati M.D. ? Signed By: ?12/03/25 1024 ? DD/ 1021 ? TD/TT: ? Chief Compressor Station Engineer: Procedure Note Radiology, Radiologist, MD - 05/27/2025 [place] [address] Ultrasound Report Signed Patient: NATHANIEL TAYLOR AMR#: [id number] : 1995Acct:[id number] Age/Sex: 29 / FADM Date: 05/27/25 Loc: [facility] 252-[address]: Lora Ortiz D.O. Ordering Physician: Lora Ortiz D.O. Date of Service: 05/27/25 Procedure(s): US OB BPP w non-stress Accession Number(s): [id number] cc: Kelly Mckenzie PHYSICIAN COMPENSATION ANALYST; Lora Ortiz D.O. The [address] [address] Patient Name: NATHANIEL TAYLOR MRN: [facility]:[id number] date: 1995 Sex: F Assigned Patient Location: [facility] Current Patient Location: [facility] Accession/Order Number: [id number] Exam Date: 05/27/2025 09:01 Report Date: 05/27/2025 [...] Prajapati M.D. 05/27/2025 10:21 AM Dictation Location: [place] [address] Electronically authenticated by: [id number] Y Date: 0:21 Dictated By: Saumya Prajapati M.D. Signed By:05/27/25 1024 DD/ 1021 TD/TT: Chief Compressor Station Engineer: Authorizing ProviderResult TypeResult StatusCorey Angel DOCLINISYNC IMAGINGFinal [...] EDT Narrative 04/22/2025 6:13 PM EDT [facility] ?[address] ? [place] [address] ? Cardiology Report ? Signed ? Patient: NATHANIEL TAYLOR ?MR#: [id number] ?? : 1995 ?Acct:[id number] ?? Age/Sex: 29 / F ?ADM Date: 04/22/25 ?? Loc: CARD ? Attending Dr: Lora Ortiz D.O. ? Ordering Physician: Lora Ortiz D.O. ?? Date of Service: 04/22/25 ?? Procedure(s): CA echo doppler complete ?? Accession Number(s): [id number] ? cc: Kelly Mckenzie NP; Lora Ortiz D.O. ? Patient Name: ? NATHANIEL TAYLOR ? MR#: [id number] ? : 1995 ? Exam Date: 04/22/2025 [...] ? 2.50 cm2, 2.50 cm2 ?? Deceleration [place]: ? Pressure Half-Time: ? Peak Velocity(Antegrade Flow): [...] By: ?Verónica Lopez M.D. ? Signed By: ?04/22/ 1813 ? DD/ 1812 ? TD/TT: ? Chief Compressor Station Engineer: Procedure Note Radiology, Radiologist, MD - 04/22/2025 [place] [address] Cardiology Report Signed Patient: NATHANIEL TAYLOR AMR#: [id number] : 1995Acct:[id number] Age/Sex: Date: 04/22/25 Loc: CARD Attending Dr: Lora Ortiz D.O. Ordering Physician: Lora Ortiz D.O. Date of Service: 04/22/25 Procedure(s): CA echo doppler complete Accession Number(s): [id number] cc: Kelly Mckenzie PHYSICIAN COMPENSATION ANALYST; Lora Ortiz D.O. Patient Name: NATHANIEL TAYLOR MR#: [id number] : 1995 Exam Date: 04/22/2025 Ordering Doctor: [...] Area (VTI): 2.50 cm2, 2.50 cm2 Deceleration [place]: Pressure Half-Time: Peak Velocity(Antegrade Flow): 1.55 m/s [...] MD on 04/22/2025 at 18:12 Dictated By: Veróinca Lopez M.D. Signed By:04/22/251812 DD/ 11 TD/TT: Chief Compressor Station Engineer: Authorizing ProviderResult TypeResult StatusCorey Angel DOCLINISYNC IMAGINGFinal Result * ECG 12-LEAD (04/22/2025 8:28 AM EDT)Anatomical RegionLateralityModalityOther Specimen (Source)Anatomical Location / LateralityCollection Method / Volume Collection TimeReceived Time04/22/2025 8:28 AM EDT Narrative 04/22/2025 6:39 PM EDT [facility] ?[address] ? [place] [address] ? Electrocardiograph Report ? Signed ? Patient: NATHANIEL TAYLOR ?MR#: [id number] ?? : 1995 ?Acct:[id number] ?? Age/Sex: 29 / F ?ADM Date: 04/22/25 ?? Loc: CARD ? Attending Dr: Lora Ortiz D.O. ? Ordering Physician: Lora Ortiz D.O. ?? Date of Service: 04/22/25 ?? Procedure(s): ECG 12 lead ?? Accession Number(s): [id number] ? cc: ?[facility] ? Test Date: ?2025-04-22 ?? Pat Name: ? NATHANIEL TAYLOR ?Department: ? Room: ? - ?? Gender: ? Female ? 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 : ?1995 ? Requested By: LORA ORTIZ ?? Order Number: [id number] ?Reading MD: ?? SLY HERRERA ? Measurements ?? Intervals ?[place] ? Rate: ? 84 ? P: ?22 ?? PA: ? 139 ?QRS: ?88 ?? QRSD: ? 94 ? T: ?54 ?? QT: ? 361 ? QTc: ?429 ? Interpretive Statements ?? SINUS RHYTHM ?? No previous ECG available for comparison ?? Electronically Signed On 04-22-2025 18:39:57 EDT by SLY HERRERA ? Dictated By: ?Sly Herrera M.D. ? Signed By: ?10/29/25 1839 ?10/29/25 1839 ? DD/ 0828 ? TD/TT: ? Chief Compressor Station Engineer: Procedure Note Radiology, Radiologist, - 04/22/[address] [address] Electrocardiograph Report Signed Patient: NATHANIEL TAYLOR AMR#: [id number] : 1995Acct:[id number] Age/Sex: FADM Date: 04/22/25 Loc: CARD Attending Dr: Lora Ortiz D.O. Ordering Physician: Lora Ortiz D.O. 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 Signed By:04/22/25183804/22/251838 DD/ 7 TD/TT: Chief Compressor Station Engineer: Authorizing ProviderResult TypeResult StatusLora Ortzi DOCLINISYNC IMAGINGFinal Result * GLUCOSE 1 HOUR (04/01/2025 9:19 AM EDT)ComponentValueRef RangeTest Method Analysis TimePerformed AtPathologist SignatureGLUCOSE 1 UPDC930<130 mg/dLTBH Specimen (Source)Anatomical Location / LateralityCollection Method / Volume Collection TimeReceived Time04/01/2025 9:19 AM EDT1 9:27 AM EDT Narrative [facility] - 04/01/2025 10:15 AM EDT Authorizing ProviderResult TypeResult StatusKrraquela Marita NPLAB BLOOD ORDERABLESFinal ResultPerforming OrganizationAddressCity/State/ZIP CodePhone Number CLINISYNC TB * (ABNORMAL) ALL CBC WITH AUTO DIFF (04/01/2025 9:19 AM EDT)ComponentValueRef RangeTest MethodAnalysis TimePerformed AtPathologist SignatureTBH WBC11.8(H) 4.0 - 11.0 10 3/uLTBHTBH RBC3.81(L)4.20 - 5.40 10 6/uLTBHTBH HGB10.9(L)12.0 - 16.0 g/dLTBHTBH HCT33.8(L)36.0 - 48.0 %TBHTBH MCV88.781.0 - 99.0 fLTBHTBH MCH 28.626.7 - 34.0 pgTBHTBH MCHC32.229.9 - 35.2 g/dLTBHTBH RDW12.611.0 - 15.0 % TBHTBH SCY855042 - 450 10 3/uLTBHTBH MPV11.09.5 - 13.5 [...] Date Unallocated, Noms Provider, [address] [place], [place] [address] PCP - GeneralFamily Zlakwvoq78/14/24 Treasure England DO [address] [place] [address] Referring RibhkyosxWllwlsjje19/14/24
--- OUTSIDE RECORDS SUMMARY | 2025-06-05 15:07 | XMS_ITS | Encounter Summary ---
Author Organization [facility] Address [address] [place] [address] Care Team Providers Care Supervisor Inspecting Name Role Phone Unallocated, Noms Provider MD Primary Care Provi aristeo Treasure England DO Unavailable [phone] Reason for Visit * ReasonCommentsMed Refill Encounter Details DateTypeDepartmentCare Team (Latest Contact Info)Nurcekizwjf63/28/2025Refill NATALIE KEARNS [address] [facility] [place] [address] Junito Ortiz DO [address] [facility] [address] [place], [facility] Nausea and vomiting in ([facility]) Social History Tobacco UseTypesPacks/DayYears UsedDateSmoking Tobacco: NeverSmokeless Tobacco: NeverAlcohol UseStandard Drinks/WeekCommentsYes0 (1 standard drink = 0.6 oz pure alcohol)One drink per monthEstimated Date of DeliveryCommentsYes 6Based on last menstrual period of 09/28/2024Sex and Gender Information ValueDate RecordedSex Assigned at BirthNot on fileLegal MjdXfqhyl00/15/2023 8:11 PM EDTGender IdentityNot on fileSexual OrientationNot on filedocumented as of this encounter Plan of Treatment DateTypeDepartmentCare Team (Latest Contact Info)Opdiybihpgk62/17/2025 11:20 AM ESTRoutine [facility] [place] [facility] [address] [facility] [place] [address] Junito Ortiz DO [address] [facility] [address] [place] [address] documented as of this encounter Visit Diagnoses Diagnosis Nausea and vomiting in ([facility]) Unspecified vomiting of , unspecified as to episode of care documented in this encounter Care Teams Team MemberRelationshipSpecialtyStart DateEnd Date Unallocated, Noms MD [address] [address] PCP - GeneralFamily Rcbpkifr97/14/24 Treasure England DO [address] [place] [address] Referring VjipcbpbrUnuywixmk35/14/24documented as of this encounter
--- OUTSIDE RECORDS SUMMARY | 2025-06-05 15:07 | XMS_ITS | Clinical Summary ---
Author Organization [id number] [address] [place] [address] Care Team Providers Care Threading Machine Tender Name Role Phone Kelly Mckenzie YANELI-IN HOUSE COUNSEL Primary Care Provider Allergies No known active [...] without aura and without status migrainosus, not iaoalplysyz60/29/2023Pineal gland cyst05/23/2023Hx of nvljwwpnwo77/29/2023Vestibular gtqdsxji35/27/2023Choroid plexus cyst of fetus affecting care of mother, nizpnzrhha83/10/2021 Family History Medical HistoryRelationNameCommentsBreast cancerMaternal GrandmotherDiabetes Maternal [...] Frequency of Binge DrinkingNot on file12/19/2019PHQ-2AnswerDate RecordedTotal Cfvdk941/29/2023ChildcareAnswerDate HveudufbEuctkxsssIlbnmmt49/24/2020Employment AnswerDate LknfntarMdirzznjqaLbnkoyc06/24/2020Hunger ScreeningAnswerDate RecordedWithin the past 12 months we worried whether our food would run out before we got money to buy more.Never True09/05/2023Within the past 12 months the food we bought just didn't last and we didn't have money to get more.Never True4Purpose - LifeAnswerDate RecordedPurpose and direction in life Egrntdi49/11/2021CommentsNoSex and Gender InformationValueDate Recorded Sex Assigned at BirthNot on fileLegal LzoGklayt32/24/2020 11:48 AM EDTGender IdentityNot on fileSexual OrientationNot on file Last Filed Vital Signs Vital SignReadingTime TakenCommentsBlood Hekrruvg257/7703 9:42 AM EDT Mujzc773009/05/2023 9:42 AM EDTTemperature--Respiratory Rate--Oxygen Saturation-- Inhaled Oxygen Concentration--Wfgzao42.9 kg (202 lb 8 oz)09/05/2023 9:42 AM EDT Fbvspd831.7 cm (5' 8 )09/05/2023 9:42 AM EDTBody Mass Index30.7909/05/2023 9:42 AM EDT Plan of Treatment Health MaintenanceDue DateLast DoneCommentsDTaP,Tdap and Td Vaccines (1 - Tdap) 12/19/2014Pap Smear12/19/2016Depression Rtocfnksc36dult BMI Kfuimqyfw75Tobacco Gqnfskjyn58Influenza Ackjpqi2002/23/2025 Medical Devices Not on file Insurance Care Teams Team MemberRelationshipSpecialtyStart DateEnd Date Kelly Mckenzie APRN-IN HOUSE COUNSEL [address], [facility] [address] [place] [address] PCP - GeneralFamily Qefpwxis39/13/23
--- NOTE | 2025-06-05 15:09 | US_ITS ---
[place] [id number] Patient Name: NATHANIEL TAYLOR MRN: [facility]:[id number] date: 1995 Sex: F Assigned Patient Location: [facility] Current Patient Location: Accession/Order Number: [id number] Exam Date: 06/05/2025 15:11 Report Date: 06/05/2025 16:51 At the request of: LORA TUBBS DO Procedure: US OB BPP w non-stress US OB BPP w non-stress 06/05/2025 3:32 PM SIGNS AND SYMPTOMS: ^07/05/2025 ^THIRD TRIMESTER Z34.93 PROTOCOL: Transabdominal sonographic imaging of the gravid uterus COMPARISON: None FINDINGS: Estimated age: 35 weeks and 5 days heart rate: 165 bpm. Amniotic fluid index: 14.33 cm with the deepest vertical pocket measuring 5.5 cm. Biophysical profile: breathing movements: 2/2 Gross body movements: 2/2 tone: 2/3 Amniotic fluid volume: 2/2 US/US OB BPP w non-stress IMPRESSION: Biophysical profile score: 8/8 Impression dictated by: Mateus Momin M.D. 06/05/2025 4:51 PM Dictation Location: Sound2[employer] ProductionsJEFFERSON HEALTHCARE HOSPITALChinaNetCloud Electronically authenticated by: [id number] Y Date: 06/05/2025 16:51
--- OUTSIDE RECORDS SUMMARY | 2025-06-05 15:09 | XMS_ITS | CCD ---
Author Organization [facility] Care Team Providers Care Building Specialist Name Role Phone NICK, DR NIELSEN Admitting Unavailable NICK, DR NIELSEN Attending Unavailable SMITH ., VI Primary Care Unavailable NICK, DR NIELSEN Consulting Unavailable ANGEL ., DR PAULINO Consulting Unavailable ANGEL ., DR PAULINO Admitting Unavailable ANGEL ., DR PAULINO Attending Unavailable SMITH ., VI Primary Care Unavailable TROY, DR NILESEN V Consulting Unavailable ANGEL ., DR PAULINO [...] Primary Care Provider Junito Ortiz Attending Provider [phone] Mag[facility] HOSPITAL ADMINISTRATORNelida HANSEN Primary Care Provider Unallocated , Meryl[place] Provider Primary Care Provi aristeo Treasure England DO Unavailable Treasure England DO Unavailable JUNITO ORTIZ Attending Unavailable ANGEL, JUNITO Attending Unavailable INNA KIRKLAND Attending Unavailable ANGEL, JUNITO Referring Unavailable ANGEL, JUNITO Attending Unavailable ANGEL, JUNITO Attending Unavailable ANGEL, JUNITO Referring Unavailable ANGEL, JUNITO Attending Unavailable Inna Kirkland Attending Unavailable Inna Kirkland Admitting Unavailable Nelida Dnig Primary Care Unavailable Allergies Allergy ClassificationReported Allergen(s)Allergy TypeDate of OnsetReaction(s) Facility (9 sources)House dust miteDrug allergyBlackSquareSt. Peter's Health Partners Abloomy Other (20 sources)PollenDrug pwwemsi10-78-0995RhhnmqtEtkwx [place] Abloomy Other (5 sources)house dust allergenic extract; Translations: [house dust]Drug Allergy 84-23-0514Fgqfpef ReactionKettering Health Troy (5 sources)Pollen; Translations: [pollen extracts]Allergy to jpbwgihtp58-38-6061 Unknown ReactionKettering Health Troy Medications Current Medications MedicationDrug Class(es)DatesSig (Normalized)Sig (Original)acetaminophen 300 mg / codeine phosphate 30 mg oral tablet (4 sources)Opioid AgonistStart: 01-14-2025 End: 21-86-2762oesy 1 tablet by mouth every six hours [...] Activedexamethasone 1 mg oral tablet (2 sources)CorticosteroidStart: 84-99-0675Eomyfkerawifh 1 MG 1 tablet Orally 11pm for 1 days Jan, ActiveDoxylamine Succinate, Sleep, (UNISOM PO) (19 sources)Doxylamine Succinate, Sleep, (UNISOM PO) Take by mouth Active fexofenadine (10 sources)Histamine-1 Receptor AntagonistStart: 38-48-4124mbamqdsnfnqq ([facility]) Active PO December 25, 2023 12:00amStart: 09-19-2023 End: 97-17-9302noaewzpttsvk (Blanche Allergy) Discontinued PO Daily September 19, 2023 12:00am November 28, 2023 8:59amStart: 51-77-2777jlxvfksgubba (Blanche Allergy) Active PO Daily September 19, 2023 12:00amStart: 09-12-2023 End: 83-84-9553ogsjtswqrqcr (Blanche Allergy) 180 MG tablet 09/12/2023 12/17/2024 DiscontinuedMagnesium (20 sources)Start: 80-97-4745atrliwlmb Active PO December 25, 2023 12:00amStart: 09-03-2023 End: 91-46-6768tuqrzhath Discontinued PO September 03, 2023 12:00am November 28, 2023 8:59amStart: 04-62-4051qdebemuuu Active PO September 03, 2023 12:00amStart: 15-34-9384smwzzxung 100 MG tablet 08/17/2022 ActiveMagnesium OTC, daily Active metoclopramide 10 mg oral tablet (20 sources)Dopamine-2 Receptor AntagonistStart: 92-87-9947ssgv 1 tablet by mouth in the morning as needed for nauseametoclopramide (Reglan) 10 MG tablet Indications: Nausea and vomiting in ([facility] TAKE 1TABLET BY MOUTH IN MORNING,AT NOON,IN EVENING 30 MINUTES PRIOR TO MEALS NEEDED FOR NAUSEA 90 tablet 1 03/23/2025 ActiveStart: 01-26-2025 End: 68-60-3072pqrbwtjhdzuwqf (Reglan) 10 MG tablet Indications: Nausea and vomiting in ([facility] Take 1tablet (10 mg) by mouth in the morning and 1 tablet (10 mg) at noon and 1 tablet (10 mg) in the evening. Take before meals. Take 1 tablet by mouth 30 minutes prior to meals 3 times daily as needed for nausea. 90 tablet 1 01/26/2025 ActiveStart: 01-14-2025 End: 08-36-4657jmww 1 tablet by mouth three times daily as neededmetoclopramide (Reglan) 10 MG tablet Indications: Nausea and vomiting in ([facility]) Take 1tablet (10 mg) by mouth 3 (three) times a day as needed (as needed prior to meals) for up to 10 days 1 tablet 01/14/2025 01/24/2025 ActiveStart: 12-16-2024 End: 54-18-2713cama 1 tablet by mouth before mealtime as needed for nausea metoclopramide (Reglan) 10 MG tablet Indications: Nausea and vomiting in ([facility]) TAKE 1TABLET BY MOUTH IN THE MORNING, NOON, EVENING, 30 MINUTES BEFORE MEALS NEEDED FOR NAUSEA 90 tablet 3 12/16/2024 12/17/2024 Discontinued (Ineffective)Start: 11-14-2024 End: 90-15-3395dcnalvcxpjpfwm (Reglan) 10 MG tablet Indications: Nausea and vomiting in ([facility]) Take 1tablet (10 mg) by mouth in the morning and 1 tablet (10 mg) at noon and 1 tablet (10 mg) in the evening. Take before meals. Take 1 tablet by mouth 30 minutes prior to meals 3 times daily as needed for nausea. 90 tablet 11/14/2024 12/14/2024 Activeomeprazole 20 mg delayed release oral capsule (20 sources)Proton Pump InhibitorStart: 01-26-2025 End: 48-91-4413odkf 2 capsules by mouth before mealtimeomeprazole (PriLOSEC) [address] capsule Indications: Gastroesophageal Reflux Disease , Heartburn Take 2 capsules (40 mg) by mouth in the morning. Take before meals. Do not crush or chew. 180 capsule 05/19/2025 ActiveStart: 09-03-2023 End: 66-09-8802fjwk 40 mg by mouth once dailyOmeprazole Discontinued 40 MG PO Daily 90 90 September 03, 2023 2:16pm November 28, 2023 8:59amStart: 06-06-0731ozmd 2 capsules by mouth in the morningomeprazole (PriLOSEC) 20 mg capsule Take 2 capsules (40 mg total) by mouth in the morning. 02/21/2023 ActiveStart: 78-34-5872krcb 1 capsule by mouth once dailyOmeprazole 40 MG 1 capsule 30 minutes before morning meal Orally Once a day for 90 days Jan, Active Start: 69-82-0868qucx 1 capsule by mouth in the morningomeprazole (PriLOSEC) 20 mg capsule Take 1 capsule (20 mg total) by mouth in the morning. 0 02/21/2023 Activeondansetron 4 mg oral tablet (20 sources)Serotonin-3 Receptor AntagonistStart: 11-05-2024 End: 46-50-0204jlqq 1 tablet by mouth every six hours as needed for nausea and nausea, then take 1 tablet by mouthevery six hours as needed for nausea and nauseaondansetron (Zofran) 4 MG tablet Indications: Nausea and vomiting in ([facility]) Take 1 tablet (4 mg) by mouth every 6 (six) hours if needed for nausea or vomiting for up to 30 doses Take 1 tablet by mouth every 6 hours as needed for nausea. 30 tablet 3 01/14/2025 ActiveStart: 09-03-2023 End: 19-22-6254ueru 4 mg by mouth once dailyOndansetron Hcl Active 4 MG PO Daily December 25, 2023 12:36pmStart: 62-15-0965ydcl 1 tablet by mouth every twenty-four hoursOndansetron HCl 4 MG 1 tablet Orally Once a day for 14 days Jun, Active End: 21-47-6579mjmw 1 tablet by mouth every eight hours [...] tablet (19 sources)Proton Pump InhibitorStart: 12-17-2024 End: 90-07-5105awjy 1 tablet by mouth before mealtimepantoprazole (Protonix) [...] hydrochloride 12.5 mg oral tablet (12 sources)PhenothiazineStart: 73-27-9432cpsp 1 tablet by mouth every eight hours as needed for nausea and nausea, then take 1 tablet by mouth every six hours as needed for nausea and nauseapromethazine (Phenergan) 12.5 MG tablet Indications: Nausea and vomiting in ([facility]) Take 1 tablet (12.5 mg) by [...] PERSISTSMAX 2/24HR 12 tablet 2 07/04/2024 ActiveStart: 30-84-7433glcwwhkywvg (MAXALT) 10 mg tablet Indications: Migraine without aura and without status migrainosus, not intractable Take 1 tablet just after onset of migraine. May repeat the dose after 2 hours if migraine persists. Max of 2 doses per 24 hours. 12 tablet 2 09/05/2023 ActiveStart: 05-23-2023 End: 94-85-9222zkya 5 mg by mouth once dailyRizatriptan Discontinued 5 MG PO Daily September 03, 2023 12:00am November 28, 2023 8:59amverapamil hydrochloride 120 mg extended release oral tablet (2 sources)Calcium Channel BlockerStart: 70-14-4539lsqa 1 tablet by mouth once dailyverapamil SR (CALAN-SR) 120 mg CR tablet Indications: Migraine without aura and without status migrainosus, not intractable Take 1 tablet (120 mg total) by mouth nightly. 30 tablet 5 09/05/2023 Activezolpidem tartrate 10 mg oral tablet (16 sources)gamma-Aminobutyric Acid-ergic AgonistStart: 01-14-2025 End: 84-75-2024Fnwpjv 10 MG tablet Indications: related fatigue in second trimester ([facility]) , Insomnia, unspecified type Take 1 tablet (10 mg) by mouth as needed at bedtime for sleep for up to 5 days 5 tablet 01/14/2025 Active Completed/Discontinued Medications MedicationDrug Class(es)DatesSig (Normalized)Sig (Original)Atogepant (4 sources)Start: 09-03-2023 End: 59-68-1971frwa 60 mg by mouth once dailyAtogepant Discontinued 60 MG PO Daily September 03, 2023 12:00am September 19, 2023 11:04amatogepant (QULIPTA) 60 mg tablet (2 sources)Start: 05-23-2023 End: 31-59-9344teqd 1 tablet by mouth in the morningatogepant (QULIPTA) 60 mg tablet Indications: Migraine without aura and without status migrainosus,not intractable Take 60 mg by mouth in the morning. 30 tablet 5 05/23/2023 09/05/2023 DiscontinuedStart: 44-83-3863cxjs 1 tablet by mouth in the morning atogepant (QULIPTA) 60 mg tablet Indications: Migraine without aura and without status migrainosus,not intractable Take 60 mg by mouth in the morning. 30 tablet 5 05/23/2023 Dobuim27 hr buPROPion hydrochloride 150 mg extended release oral tablet (20 sources)AminoketoneStart: 09-19-2023 End: 47-18-4588xgux 150 mg by mouth once dailyBupropion Hcl Discontinued 150 MG PO Daily 90 September 19, 2023 11:41am November 28, 2023 8:59amStart: 09-03-2023 End: 13-26-8290vust 1 tablet by mouth once dailyBupropion Hcl [...] oral tablet (5 sources)Histamine-2 Receptor Antagonist End: 39-33-9990bakbwbzclm (Pepcid) 10 MG tablet Take by mouth 01/14/2025 Discontinuedmagnesium oxide 250 mg oral tablet (2 sources) End: 48-90-3601ipdk 1 tablet by mouth in the morningmagnesium oxide 250 mg tablet Take 1 tablet (250 mg total) by mouth in the morning. 0 09/05/2023 Dis continuedPNV no.95/ferrous fum/folic ac ( ORAL) (2 sources) End: 61-39-6715ydpa 1 tablet by mouth once daily before mealtimePNV no.95/ferrous fum/folic ac ( ORAL) Take 1 tablet by mouth daily. 0 09/05/2023 Discontinuedtake 1 tablet by mouth once daily before mealtimePNV no.95/ferrous fum/folic ac ( ORAL) Take 1 tablet by mouth daily. 0 Activepolysaccharide iron complex 391 mg oral capsule (7 sources)Start: 04-01-2025 End: 30-06-6308dwkp 1 capsule by mouth once dailyiron polysaccharides (ProFe) 391.3 (180 Fe) MG capsule Indications: Low iron Take 1 capsule (391.3 mg) by mouth Daily 30 capsule 6 04/01/2025 05/01/2025 Expiredpropranolol hydrochloride 20 mg oral tablet (4 sources)beta-Adrenergic BlockerStart: 05-23-2023 End: 28-85-1482dqsfkdiqzjE (INDERAL) 20 mg tablet Indications: Migraine without aura and without status migrainosus, not intractable Take 1 tablet (20 mg) twice daily for 3 days, then reduce to 1 tablet daily for 3days, then discontinue 9 tablet 0 05/23/2023 09/05/2023 Discontinuedtake 1 tablet by mouth at bedtime Propranolol HCl 60 MG 1 tablet Orally HS for migraines Activevitamin B12 (5 sources)Vitamin B33Zntdcib B12 Not-Taking Problems Active Problems Problem ClassificationProblemDateDocumented DateEpisodic/ChronicAnxiety disorders (17 sources)Anxiety; Translations: [Anxiety disorder, unspecified]ChronicComa; stupor; and brain damage (2 sources)Somnolence; Translations: [Daytime somnolence]Onset: 09-05-2023 00-45-2593MxwuemopKizjgrborp associated with dizziness or vertigo (12 sources)Dizziness; Translations: [Dizziness and giddiness]EpisodicEsophageal disorders (9 sources)Gastroesophageal reflux disease; Translations: [Gastro-esophageal reflux disease without esophagitis]73-58-6497HgyuflzCknlzfpn; including migraine (20 sources)Migraine; Translations: [Migraine, unspecified, not intractable, without status migrainosus]Onset: 71-18-7741YdebyweIibti valve disorders (6 sources)Tachycardia; Translations: [Unspecified abnormalities of heart beat] 45-98-4792FmvlatzqQtcugsivmnevu and screening for infectious disease (3 sources)Encounter for screening for human papillomavirus (HPV); Translations: [Exposure to sexually transmissible disorder]Onset: 121775-10-2798Dsyjxmls Malaise and fatigue (1 source)Other fatigue; Translations: [OTHER FATIGUE]Onset: 37-01-7687Ceiemdel Menstrual disorders (5 sources)Irregular menstruation, unspecified; Translations: [Missed period] Onset: 76-76-4680WueikukVvzr disorders (13 sources)Depressive disorder; Translations: [Major depressive disorder, single episode, unspecified]02-25-6678DahmckxReorpk and vomiting (18 sources)Nausea; Translations: [Nausea]Onset: 74-49-2188OklmibdlTvdih bone disease and musculoskeletal deformities (1 source)Segmental and somatic dysfunction of pelvic region; Translations: [Segmental and somatic dysfunction of pelvic region]Onset: 55-68-1875Knnddapa Other complications of (6 sources)Vomiting of , unspecified; Translations: [Unspecified vomiting of , unspecified as to episode of care or not applicable] 88-87-6987IdfcncvrDnflt complications of (2 sources)High risk ; Translations: [Supervision of with other poor reproductive or obstetric history, unspecified trimester]12-17-2024 EpisodicOther complications of (2 sources)Fatigue during ; Translations: [ related exhaustion and fatigue, second trimester]04-71-2006XpvupwakQiway complications of (2 sources) size does not accord with dates; Translations: [Uterine size- date discrepancy, unspecified trimester]23-13-5528IpgxxvbiSmsaj endocrine disorders (5 sources)Other adrenocortical overactivity; Translations: [OTHER ADRENOCORTICAL OVERACTIVITY]Onset: 98-49-1900RxtdfidCvsyv endocrine disorders (9 sources)Dehydroepiandrosterone sulfate level; Translations: [Other specified disorders of adrenal gland]ChronicOther endocrine disorders (9 sources)Increased cortisol level; Translations: [Other adrenocortical overactivity]ChronicOther endocrine disorders (2 sources)Other specified disorders of adrenal glandChronicOther female genital disorders (2 sources)Vaginal discharge; Translations: [Other specified noninflammatory disorders of vagina]61-65-1518UbfgxxywYvfso and delivery including normal (20 sources); Translations: [Encounter for supervision of normal , unspecified, unspecified trimester]Onset: EpisodicOther screening for suspected conditions (not mental disorders or infectious disease) (20 sources)Encounter for screening for malignant neoplasm of cervix; Translations: [Other specified abnormal findings of blood chemistry]Onset: 24-63-6576SqxocotaBtzex upper respiratory disease (13 sources)Seasonal allergy; Translations: [Other seasonal allergic rhinitis] 09-03-1907LevkbdjPrqvy upper respiratory infections (1 source)Acute upper respiratory infection, unspecifiedEpisodicResidual codes; unclassified (2 sources)Gestation period, 11 weeks; Translations: [11 weeks gestation of ]17-45-2235IcxiyacyInqqnrzq codes; unclassified (2 sources)Gestation period, 15 weeks; Translations: [15 weeks gestation of ]08-01-2663WszfuhzfGosndfxa codes; unclassified (2 sources)Insomnia; Translations: [Insomnia, unspecified]77-71-9852Htwcutqe Residual codes; unclassified (2 sources)Gestation period, 20 weeks; Translations: [20 weeks gestation of ]99-89-7304IscydakiRwyousqj codes; unclassified (2 sources)Gestation period, 24 weeks; Translations: [24 weeks gestation of ]74-00-3185HmfvohghVhpisihs codes; unclassified (2 sources)Gestation period, 28 weeks; Translations: [28 weeks gestation of ]96-65-7173TayzmmmeIropmvkk codes; unclassified (2 sources)Gestation period, 30 weeks; Translations: [30 weeks gestation of ]58-61-7977Sglnngbx Past or Other Problems Problem ClassificationProblemDateDocumented DateEpisodic/ChronicAbdominal pain (4 sources)Unspecified abdominal pain; Translations: [UNSPECIFIED ABDOMINAL PAIN]Onset: 11-47-6862NdonpxajFbhvduakjqok injury (5 sources)Personal history of traumatic brain injury; Translations: [History of concussion injury of brain]Onset: 266672-84-8125FufcdzvwFdhr disorders (3 sources)Mood disordersOnset: Other complications of ; puerperium affecting management of mother (3 sources)Central nervous system malformation in fetus affecting obstetrical care; Translations: [Choroid plexus cyst of fetus affecting care of mother, antepartum]Onset: 959745-55-2763PbmwxxktMgukm endocrine disorders (1 source)Endocrine disorder, unspecified; Translations: [ENDOCRINE DISORDER UNSPECIFIED]Onset: 41-19-6358JeaupdnnPsedw endocrine disorders (1 source)Other specified endocrine disorders; Translations: [Other specified endocrine disorders]Onset: 84-46-0079UaczrlgrSkoox endocrine disorders (4 sources)Cyst of pineal gland; Translations: [Other specified endocrine disorders]Onset: 217968-38-7131SoqzskusFpmrs gastrointestinal disorders (1 source)Abdominal distension (gaseous); Translations: [ABDOMINAL DISTENSION GASEOUS]Onset: 56-06-2323YpqzclnhQpmgttn cyst (1 source)Other ovarian cyst, right side; Translations: [OTHER OVARIAN CYST RIGHT SIDE]Onset: 62-45-7403Cvjmrpei Results Test NameValueInterpretationReference RangeFacilityUS OB FOLLOW UP TRANSABDOMINAL APPROACHon 91-88-8934YB OB FOLLOW UP TRANSABDOMINAL APPROACH FINDINGS: A [...] Delivery: 07/05/25 Gestational Age as of 04/15/2025: 90y9kDrbygbganu macro (dipstick) panel (U)on 08-23-9709Qifzfuims, UANegativeNegative - 4(70) +++ mg/dLNOMS HealthcareBlood, UANegativeNegative - 50 Cj/mcLNOMS HealthcareClarity, UAClearNOMS Healthcare Color, UAYellowNOMS HealthcareGlucose, UANegativeNegative - 2000(110) ++++ mg/dL NOMS HealthcareInterpretation and review of laboratory resultsAbnormalNOMS HealthcareKetones, UANegativeNegative - 160(16) ++++ mg/dLNOMS Healthcare Leukocytes, UATraceNegative - 500+++ Cosmo/mcLNOMS HealthcareNitrite, UANegative Negative - PositiveNOMS HealthcarepH, UA7.05 - 9NOMS HealthcareProtein, UA NegativeNegative - 2000(20) ++++ mg/dLNOMO HealthcareSpec Grav, UA1.0101 - 1.03 NOMS HealthcareUrobilinogen, UA1.00.2 - 12 mg/dLNOMO HealthcareNOMO HealthcareCA ECHO DOPPLER COMPLETEon 23-14-2787LroP[place] [address] Cardiology Report Signed Patient: NATHANIEL BOB MR#: [id number] : 1995 Acct:[id number] Age/Sex: 29 / F ADM Date: 04/22/25 Loc: CARD Attending Dr: Junito Ortiz D.O. Ordering Physician: Junito Ortiz D.O. Date of Service: 04/22/25 Procedure(s): CA echo doppler complete Accession Number(s): [id number] cc: Nelida Ding PLAYGROUND ATTENDANT; Junito Ortiz D.O. Patient Name: NATHANIEL BOB MR#: [id number] : 1995 Exam Date: 04/22/2025 Ordering Doctor: [...] Area (VTI): 2.50 cm2, 2.50 cm2 Deceleration [place]: Pressure Half-Time: Peak Velocity(Antegrade Flow): 1.55 m/s [...] content not included)...TBHRadiology, Radiologist, - 04/22/2025 [place] [address] Cardiology Report Signed Patient: NATHANIEL BOB MR#: [id number] : 1995 Acct:[id number] Age/Sex: 29 / F ADM Date: 04/22/25 Loc: CARD Attending Dr: Junito Ortiz D.O. Ordering Physician: Junito Ortiz D.O. Date of Service: 04/22/25 Procedure(s): CA echo doppler complete Accession Number(s): [id number] cc: Nelida Ding PLAYGROUND ATTENDANT; Junito Ortiz D.O. Patient Name: NATHANIEL BOB MR#: [id number] : 1995 Exam Date: 04/22/2025 Ordering Doctor: [...] Area (VTI): 2.50 cm2, 2.50 cm2 Deceleration [place]: Pressure Half-Time: Peak Velocity(Antegrade Flow): 1.55 m/s [...] M.D. Signed By: 04/22/251812 DD/ 11 TD/TT: Dentistry Professor: [facility] HEALTH CENTERDominguez HealthcareRadiology Study observation (narrative)[facility] Cancer CenterCA ECHO DOPPLER COMPLETEOrdered By: Radiologist Radiology on 91-14-5228QDSL Slice Work Phone: ecg 12-LEADon [phone] [address] Electrocardiograph Report Signed Patient: NATHANIEL BOB MR#: [id number] : 1995 Acct:[id number] Age/Sex: 29 / F ADM Date: 04/22/25 Loc: CARD Attending Dr: Junito Ortiz D.O. Ordering Physician: Junito Ortiz D.O. Date of Service: 04/22/25 Procedure(s): ECG 12 lead Accession Number(s): [id number] cc: [facility] Test Date: 2025-04-22 Pat Name: NATHANIEL BOB Department: Room: - Gender: Female Public Relations Writer: : 1995 Requested By: JUNITO ORTIZ Order Number: [id number] Reading MD: SLY SAAB Measurements Intervals [place] Rate: 84 P: 22 SD: 139 QRS: 88 QRSD: 94 T: 54 QT: 361 QTc: 429 Interpretive Statements SINUS RHYTHM No previous ECG available for comparison Electronically Signed On 04-22-2025 18:39:57 EDT by SLY SAAB Dictated By: Sly Saab M.D. Signed By: 04/22/25183804/22/251838 DD/ 7 TD/TT: Dentistry Professor:CHADWICKadiolSarahi acosta MD - 04/22/2025 [facility] [place] [id number] Electrocardiograph Report Signed Patient: NATHANIEL BOB MR#: [id number] : 1995 Acct:[id number] Age/Sex: 29 / F ADM Date: 04/22/25 Loc: CARD Attending Dr: Junito Ortiz D.O. Ordering Physician: Junito Ortiz D.O. 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 Signed By: 04/22/25183804/22/251838 DD/ 7 TD/TT: Dentistry Professor: NATALIE BarriosRadiology Study observation (narrative)[facility] HealthcareECG 12-LEAD Ordered By: Radiologist Radiology on 46-95-9261K[facility] Healthcare Work Phone: Urinalysis macro (dipstick) panel (U)on 04-15-2025 Bilirubin, UANegativeNegative - 4(70) +++ mg/dLNOMS HealthcareBlood, UANegative Negative - 50 Cj/mcLNOMS HealthcareClarity, UAClearNOMS HealthcareColor, UA YellowNOMS HealthcareGlucose, UANegativeNegative - 2000(110) ++++ mg/dLNOMS HealthcareInterpretation and review of laboratory resultsAbnormalNOMS Healthcare Ketones, UANegativeNegative - 160(16) ++++ mg/dLNOMS HealthcareLeukocytes, UA TraceNegative - 500+++ Cosmo/mcLNOMO HealthcareNitrite, UANegativeNegative - PositiveNOMS HealthcarepH, UA6.05 - 9NOMS HealthcareProtein, UATraceNegative - 2000(20) ++++ mg/dLNOMO HealthcareSpec Grav, UA1.0201 - 1.03N[facility] Urobilinogen, UA2.00.2 - 12 mg/dLNOMS HealthcareNOMS HealthcareGLUCOSE 1 HOURon 46-35-0279Jptrkza [Mass/Vol]114 mg/dLNINF - 130 mg/dLNOMO HealthcareCLINISYNC NOMS HealthcareUS OB LIMITED 1+ FETUSESon 21-57-0273EU OB LIMITED 1+ FETUSES FINDINGS: Breech presentation. [...] Delivery: 07/05/25 Gestational Age as of 02/25/2025: 46x1zNyvbfpmnoz macro (dipstick) panel (U)on 10-66-3856Jciajozil, UANegativeNegative - 4(70) +++ mg/dLNOMS HealthcareBlood, UANegativeNegative - 50 Cj/mcLNOMS HealthcareClarity, UAClearNOMS Healthcare Color, UAYellowNOMS HealthcareGlucose, UANegativeNegative - 2000(110) ++++ mg/dL NOMS HealthcareInterpretation and review of laboratory resultsNormalNOMO HealthcareKetones, UANegativeNegative - 160(16) ++++ mg/dLNOMO Healthcare Leukocytes, UANegativeNegative - 500+++ Cosmo/mcLNOMS HealthcareNitrite, UA NegativeNegative - PositiveNOMO HealthcarepH, UA6.55 - 9NOMS HealthcareProtein, UANegativeNegative - 2000(20) ++++ mg/dLNOMS HealthcareSpec Grav, UA1.011 - 1.03 NOMS HealthcareUrobilinogen, UA1.00.2 - 12 mg/dLNOMS [facility] Urinalysis macro (dipstick) panel (U)on 06-93-8751Sdcadnbnj, UANegativeNegative - 4(70) +++ mg/dLNOMS HealthcareBlood, UANegativeNegative - 50 Cj/mcLNOMS HealthcareClarity, UAClearNOMS HealthcareColor, UAYellowNOMS HealthcareGlucose, UANegativeNegative - 1999(110) ++++ mg/dLNOMS HealthcareInterpretation and review of laboratory resultsAbnormalNOMS HealthcareKetones, UANegativeNegative - 160(16) ++++ mg/dLNOMS HealthcareLeukocytes, UAPositiveNegative - 500+++ Cosmo/mcLNOMS HealthcareNitrite, UANegativeNegative - PositiveNOMS HealthcarepH, UA65 - 9NOMS HealthcareProtein, UANegativeNegative - 1999(20) ++++ mg/dLNOMS HealthcareSpec Grav, UA1.0251 - 1.03NOMS HealthcareUrobilinogen, UA1.00.2 - 12 mg/dLNOMS Chillicothe HospitalNOMO HealthcareIGP,APTIMA HPV,AGE GDLNon 18-57-4789SDS GDLN ACOG TESTINGNote.[facility] HealthcareComment on above:TESTS RESULT FLAG UNITS REF RANGE LAB Clinician Provided Cytology Information Source.............Endocervix No. of containers..01 ThinPrep Vial Age Algo ACOG Marina... FLAG LEGEND: L-Low Normal,H-High Normal,LL-Alert Low,HH-Alert High <-Panic Low,>-Panic High,A-Abnormal,AA-Critical Abnormal Performed at: 01 =[facility] [place] [address] Maliha Cobb MD, IGP, RFX APTIMA HPV ASCUNote.NOMS HealthcareComment on above:TESTS RESULT FLAG UNITS REF RANGE LAB DIAGNOSIS: 02 NEGATIVE FOR INTRAEPITHELIAL LESION OR MALIGNANCY. Specimen adequacy: 02 Satisfactory for evaluation. No endocervical component is identified. Performed by: Santi Gregory, Organic Lab Worker ([facility]) . 02 Note: Note 02 The Pap [...] <-Panic Low,>-Panic High,A-Abnormal,AA-Critical Abnormal Performed at: [address] [address] Maliha Cobb MD, Performed at: = - [facility] [address] [id number] Bakery Deliverer: Maliha Cobb MD, Phone: [phone] Performed at: [facility] [address] [id number] Bakery Deliverer: Maliha Cobb MD, Phone: [phone] SPATULA-ALONE ENDOCERVIX CLINISYNCNOMS HealthcareRECURRENT VAGINITIS (HTRX)on 28-95-0135DPJQKOQRQ VAGINAE 0NOMS HealthcareATOPOBIUM VAGINAENot detectedNOMS HealthcareBVAB 2,3 (BACTERIAL VAGINOSIS ASSOCIATED BACTERIA 2, 3); MOBILUNCUS XPR2FVIG HealthcareBVAB 2,3 (BACTERIAL VAGINOSIS ASSOCIATED BACTERIA 2, 3); MOBILUNCUS SPPNot detectedNOMS HealthcareCANDIDA ALBICANS, PARAPSILOSIS, QHUCJMKBXW1WIQM HealthcareCANDIDA ALBICANS, PARAPSILOSIS, TROPICALISNot detectedNOMS HealthcareCANDIDA GLABRATA0 NOMS HealthcareCANDIDA GLABRATANot detectedNOMS HealthcareCANDIDA PBNVXJ7AEDU HealthcareCANDIDA KRUSEINot detectedNOMS HealthcareCHLAMYDIA XCHVTOLTPID5MGOK HealthcareCHLAMYDIA TRACHOMATISNot detectedNOMS HealthcareGARDNERELLA VAGINALIS0 NOMS HealthcareGARDNERELLA VAGINALISNot detectedNOMS HealthcareMEGASPHAERA (TYPES 1, 2)0NOMS HealthcareMEGASPHAERA (TYPES 1, 2)Not detectedNOMS Healthcare MYCOPLASMA FHTCBBWBCU7DYUA HealthcareMYCOPLASMA GENITALIUMNot detectedNOMS HealthcareNEISSERIA BBZIZHNNIRX6AARI HealthcareNEISSERIA GONORRHOEAENot detected NOMS HealthcareTRICHOMONAS LYOPIPTJV1UVOK HealthcareTRICHOMONAS VAGINALISNot detectedNOMS HealthcareNOMS HealthcareUS OB 14+ [...] Delivery: 07/05/25 Gestational Age as of 01/14/2025: 35t2rEansdwegrg macro (dipstick) panel (U)on 42-17-2770Ctsofhrdh, UANegativeNegative - 4(70) +++ mg/dLNOMS HealthcareBlood, UANegativeNegative - 50 Cj/mcLNOMS HealthcareClarity, UAClearNOMS Healthcare Color, UAYellowNOMS HealthcareGlucose, UANegativeNegative - 2000(110) ++++ mg/dL NOMS HealthcareInterpretation and review of laboratory resultsNormalNOMS HealthcareKetones, UANegativeNegative - 160(16) ++++ mg/dLNOMS Healthcare Leukocytes, UANegativeNegative - 500+++ Cosmo/mcLNOMS HealthcareNitrite, UA NegativeNegative - PositiveNOMS HealthcarepH, UA65 - 9NOMS HealthcareProtein, UA NegativeNegative - 2000(20) ++++ mg/dLNOMO HealthcareSpec Grav, UA1.021 - 1.03 NOMS HealthcareUrobilinogen, UA1.00.2 - 12 mg/dLNOMO HealthcareNOMS Healthcare Urinalysis macro (dipstick) panel (U)on 19-71-4685Yjyflpqwd, UANegativeNegative - 4(70) +++ mg/dLNOMS HealthcareBlood, UANegativeNegative - 50 Cj/mcLNOMO HealthcareClarity, UAClearNOMO HealthcareColor, UAYellowNOMO HealthcareGlucose, UANegativeNegative - 2000(110) ++++ mg/dLNOMO HealthcareInterpretation and review of laboratory resultsAbnormalHIGHLAND RIDGE HOSPITAL HealthcareKetones, UANegativeNegative - 160(16) ++++ mg/dLHIGHLAND RIDGE HOSPITAL HealthcareLeukocytes, UAPositiveNegative - 500+++ Cosmo/mcLHIGHLAND RIDGE HOSPITAL HealthcareComment on above:smallNitrite, UANegativeNegative - PositiveNOMS HealthcarepH, UA5.55 - 9NOMS HealthcareProtein, UANegativeNegative - 2000(20) ++++ mg/dLNOMO HealthcareSpec Grav, UA1.031 - 1.03NOMO Healthcare Urobilinogen, UA0.20.2 - 12 mg/dLNOSSM DePaul Health CenterNOMS HealthcareALL CBC WITH AUTO DIFFon 77-49-5631NHVLRAXFZ ABSOLUTE AUTO0.1NOMS HealthcareBasophils/100 WBC (Bld)0.4 %0.2 - 2.0 %NOMS HealthcareEosinophils/100 WBC (Bld)0.9 %0.9 - 7.0 % [facility] HealthcareErythrocyte distribution width (RBC) [Ratio]13.4 %11.0 - 15.0 % [facility] HealthcareHematocrit (Bld) [Volume fraction]43.2 %36.0 - 48.0 %[facility]iteman Cancer CenterHemoglobin (Bld) [Mass/Vol]15.2 g/dL12.0 - 16.0 g/dLAlvin J. Siteman Cancer Center IMMATURE GRANULOCYTES ABS AUTO0.05HighNOSSM DePaul Health CenterImmature granulocytes/100 WBC (Bld)0.4 %0.0 - 0.5 %[facility] Cancer CenterInterpretation and review of laboratory resultsAbnormalAlvin J. Siteman Cancer CenterLYMPHOCYTES ABSOLUTE AUTO2.3[facility] Lymphocytes/100 WBC (Bld)17.1 %Low20.5 - 60.0 %[facility] HospitalH (RBC) [Entitic mass]29.9 pg26.7 - 34.0 pgSaint John's Aurora Community HospitalHC (RBC) [Mass/Vol]35.2 g/dL29.9 - 35.2 g/dLSaint John's Aurora Community HospitalV (RBC) [Entitic vol]85 fL81.0 - 99.0 fLAlvin J. Siteman Cancer CenterMONOCYTES ABSOLUTE AUTO0.7Al[facility]. [facility] Cancer CenterMonocytes/100 WBC (Bld)5.5 % 1.7 - 12.0 %[facility] Cancer CenterNEUTROPHILS ABSOLUTE AUTO10.3HighAlvin J. Siteman Cancer Center Neutrophils/100 WBC (Bld)75.7 %High43.0 - 75.0 %[facility] Cancer CenterPlatelet mean volume (Bld) [Entitic vol]11.8 fL9.5 - 13.5 fLAlvin J. Siteman Cancer CenterTB EO #0.1NOMS [facility] UPH274NLDMCox Monett RBC5.08NOCox [place] WBC13.6HighAlvin J. Siteman Cancer CenterCLINISYNCNSt. Louis VA Medical CenterHCG ( test) Ql (U)on 12-05-2024 Interpretation and review of laboratory resultsAbnoHelen M. Simpson Rehabilitation HospitalPreg Test, UrPositiveNegativeECU Health Beaufort HospitalUS OB TRANSVAGINALon 12-05-2024 US OB TRANSVAGINALEXAM: US [...] II, MD, PHD at 06-Dec-2024 08:41:12 AM [facility] TeleradiologyNormalNot AvailableComment on above:Order Comment: US OB TRANSVAGINAL No LMP recorded.Urinalysis macro (dipstick) panel (U)on 06-59-1418Imsxozvwm, UA NegativeNegative - 4(70) +++ mg/dLNOMS HealthcareBlood, UANegativeNegative - 50 Cj/Garnet HealthNOMO HealthcareClarity, UAClearNOMO HealthcareColor, UAYellowNOMO HealthcareGlucose, UANegativeNegative - 2000(110) ++++ mg/dLNOMO Healthcare Interpretation and review of laboratory resultsAbnormalNOMO HealthcareKetones, UANegativeNegative - 160(16) ++++ mg/dLNOMO HealthcareLeukocytes, UAPositive Negative - 500+++ Cosmo/Garnet HealthNOMO HealthcareNitrite, UANegativeNegative - Positive NOMS HealthcarepH, UA75 - 9NOMS HealthcareProtein, UAPositiveNegative - 2000(20) ++++ mg/dLNOMS HealthcareSpec Grav, UA1.021 - 1.03NOMS HealthcareUrobilinogen, UA1.00.2 - 12 mg/dLNOMO HealthcareNOMS HealthcareCORTISOL 24HR URINEon 08-78-5456Pnfyryim,F,ug/24hr,U26 ug/24 hrNormal6-42[facility] CenterComment on above:Performed By: #### CORT24 #### [facility] [address] [address] [address] Lucretia ZamudioCortisol,F,ug/L,U10 ug/LNormalUndefinedThe [facility] Comment on above:Performed By: #### CORT24 #### [facility] [address] [address] [address] Lucretia ZamudioCT ABDOMEN WO/W CONon 12-97-7692FT ABDOMEN WO/W CONCLINICAL HISTORY: Blood chemistry abnormal. [...] Electronically authenticated by: YOVANY CLARK Date: 2022-08-27 08:37[facility] SERUMon 30-98-0519Gyppdcpavnqungveyfomlm (DHEA)1255 ng/dL Critically ikry20-450Ubt [facility] CenterComment on above:Result Comment: Age 1 [...] 31 - 701Performed By: #### DHEA. #### [facility] [address] [place] [address] Dr. Lucretia ZamudioTESTOSTERONE, FREE,DIRECT, TOTALon 31-46-6596Qbjs Testosterone(Direct)2.8 pg/mLNormal0.0-4.2[facility] Medical CenterComment on above: Result Comment: Performed at: BNPerformed By: #### TESTFRD #### [facility] [address] [place] [address] Dr. Lucretia ZamudioTestosterone [Mass/Vol]42 ng/iXPswhzq01-55Hig [facility] Comment on above:Result Comment: Performed at: CBPerformed By: #### TESTFRD #### [facility] [address] [place] [address] Dr. Lucretia ZamudioCORTISOL Shiv 99-39-2858Qbeamozt AM23.4 ug/dLCritically high 6.2-19.4The [facility] CenterComment on above:Performed By: #### PROGES #### [facility] [address] [place] [address] Dr. Lucretia ZamudioDHEA-SULFATEon 02-92-8183GVRQ-Lfvqztd823.0 ug/rJLlnizn72.8-378.0 The [facility] Medical CenterComment on above:Performed By: #### LBCLH #### [facility] [address] [place] [address] Dr. Lucretia VergaraTRADIOLon 39-85-3990Zgrjriodc981.0 pg/mLNormalThe [facility] Medical CenterComment on above:Result Comment: Adult Female: Follicular phase 12.5 - 166.0 Ovulation phase 85.8 - 498.0 Luteal phase 43.8 - 211.0 Postmenopausal <6.0 - 54.7 1st trimester 215.0 - >4300.0 Dona ECLIA methodologyPerformed By: #### ESTRADI #### [facility] [address] [place] [address] Dr. Lucretia TanHon 90-43-5660QPP8.0 mIU/mLNormalUniversity Hospitals Beachwood Medical CenterComment on above:Result Comment: Adult Female: Follicular phase 3.5 - 12.5 Ovulation phase 4.7 - 21.5 Luteal phase 1.7 - 7.7 Postmenopausal 25.8 - 134.8Performed By: #### LBCFSH #### [facility] [address] [place] [address] Dr. Lucretia ZamudioLUTEINIZING HORMONE (LH)on 42-89-4857EY6.7 mIU/mLNKing's Daughters Medical Center OhioComment on above:Result Comment: Adult Female: Follicular phase 2.4 - 12.6 Ovulation phase 14.0 - 95.6 Luteal phase 1.0 - 11.4 Postmenopausal 7.7 - 58.5Performed By: #### LBCLH #### [facility] [address] [place] [address] Dr. Lucretia ZamudioPROGESTERONEon 74-65-6847Ldlldbajddkn7.2 ng/mLNKing's Daughters Medical Center OhioComment on above:Result Comment: Follicular phase 0.1 - 0.9 Luteal phase 1.8 - 23.9 Ovulation phase 0.1 - 12.0 First trimester 11.0 - 44.3 Second trimester 25.4 - 83.3 Third trimester 58.7 - 214.0 Postmenopausal 0.0 - 0.1Performed By: #### PROGES #### [facility] [address] [place] [address] Dr. Lucretia ZamudioFREE T4on 95-42-4802Fmdg T4 [Mass/Vol]1.13 ng/dLNormal0.76-1.46 [facility] CenterComment on above:Performed By: #### FT4 #### [facility] [address] [place] [address] Dr. Lucretia ZamudioGLYCOHEMOGLOBIN A1Con 85-44-5316SBR RECOMMENDATIONSEE BELOWNormal [facility] CenterComment on above:Result Comment: ADA RECOMMENDED LIMIT 4.0 - 6.0 ADA THERAPEUTIC TARGET < 7.0 ACTION SUGGESTED > 7.0Performed By: #### PROGES #### [facility] [address] [place] [address] Dr. Lucretia ZamudioGlucose [Mass/Vol]105 mg/dLNormalThHarrison Community HospitalComment on above:Performed By: #### PROGES #### [facility] [address] [place] [address] Dr. Lucretia ZamudioHbA1c (Bld) [Mass fraction]5.3 %Normal4.5-6.2The Kettering Healthment on above:Performed By: #### PROGES #### [facility] [address] [place] [address] Dr. Lucretia ZamudioTSHon 66-56-7000UNN4.971 uIU/mLNormal0.358-3.740The [facility] Medical CenterComment on above:Performed By: #### TSH #### [facility] [address] [place] [address] Dr. Lucretia ZamudioUS PELVIS AND TRANSVAGon 25-93-5662TQ PELVIS AND TRANSVAG EXAMINATION: US PELVIS AND [...] authenticated by: GIA PRESCOTT Date: 2022-08-02 18:42NormalThe [facility] Medical CenterAMYLASEon 35-58-5011Bljlrxe [Catalytic activity/Vol]50 U/L Vriywe63-531Xul [facility] on above:Performed By: #### PROGES #### [facility] [address] [place] [address] Dr. Lucretia ZamudioCBC AUTO DIFFon 74-44-7895RZGK #0.1 103/ulNormal0.0-0.1The [facility] on above:Performed By: #### CBC #### [facility] [address] [address] [address] Lucretia ZamudioBasophils/100 WBC (Bld)0.9 %Normal0.2-2.0The [facility] Comment on above:Performed By: #### CBC #### [facility] [address] [place] [address] Dr. Lucretia Lynne #0.4 103/ulNormal0.0-0.7The [facility] CenterComment on above: Performed By: #### CBC #### [facility] [address] [place] [address] Dr. Lucretia Huntosinophils/100 WBC (Bld)3.4 %Normal0.9-7.0The [facility] Comment on above:Performed By: #### CBC #### [facility] [address] [place] [address] Dr. Lucretia Huntrythrocyte distribution width (RBC) [Ratio]12.7 %Ntnerh43.0-15.0 The [facility] Medical CenterComment on above:Performed By: #### CBC #### [facility] [address] [place] [address] Dr. Lucretia ZamudioHematocrit (Bld) [Volume fraction]44.1 %Quneuv97.0-48.0The [facility] CenterComment on above:Performed By: #### CBC #### [facility] [address] [place] [address] Dr. Lucretia ZamudioHemoglobin (Bld) [Mass/Vol]14.5 g/rKSbxgea92.0-16.0The [facility] CenterComment on above:Performed By: #### CBC #### [facility] [address] [place] [address] Dr. Lucretia Gomez #0.03 10e3/ulNormal0.00-0.03The [facility] CenterComment on above:Performed By: #### CBC #### [facility] [address] [place] [address] Dr. Lucretia Gomez %0.3 %Normal0.0-0.5The [facility] CenterComment on above: Performed By: #### CBC #### [facility] [address] [address] [address] Lucretia Brush #2.9 103/ulNormal1.2-3.8The [facility] CenterComment on above:Performed By: #### CBC #### [facility] [address] [address] [address] Lucretia Worthingtonmphocytes/100 WBC (Bld)24.9 %Cxfekd02.5-60.0The [facility] CenterComment on above:Performed By: #### CBC #### [facility] [address] [place] [address] Dr. Lucretia Krishnan DIFF REQNONormalThe [facility] Medical CenterComment on above: Performed By: #### CBC #### [facility] [address] [place] [address] Dr. Lucretia Simmons (RBC) [Entitic mass]28.9 qcBevpei54.7-34.0The [facility] CenterComment on above:Performed By: #### CBC #### [facility] [address] [place] [address] Dr. Lucretia Simmons (RBC) [Mass/Vol]32.9 g/vHZlykpm19.9-35.2The [facility] CenterComment on above:Performed By: #### CBC #### [facility] [address] [place] [address] Dr. Lucretia Simmons (RBC) [Entitic vol]87.8 tAAjfexz19.0-99.0The [facility] CenterComment on above:Performed By: #### CBC #### [facility] [address] [place] [address] Dr. Lucretia Lemus #0.6 103/ulNormal0.3-0.8The [facility] CenterComment on above:Performed By: #### CBC #### [facility] [address] [place] [address] Dr. Lucretia Manzoocytes/100 WBC (Bld)5.4 %Normal1.7-12.0The [facility] Comment on above:Performed By: #### CBC #### [facility] [address] [address] [address] Lucretia Waterman #7.6 103/ulCritically high1.4-6.5The [facility] Comment on above:Performed By: #### CBC #### [facility] [address] [place] [address] Dr. Lucretia Wagnerutrophils/100 WBC (Bld)65.1 %Clpfaw20.0-75.0The [facility] CenterComment on above:Performed By: #### CBC #### [facility] [address] [place] [address] Dr. Lucretia ZamudioPlatelet mean volume (Bld) [Entitic vol]10.0 fLNormal9.5-13.5The [facility] CenterComment on above:Performed By: #### CBC #### [facility] [address] [place] [address] Dr. Lucretia ZamudioPLT277 103/zvCortwx117-613Cxe [facility] CenterComment on above: Performed By: #### CBC #### [facility] [address] [place] [address] Dr. Lucretia ZamudioRBC5.02 106/ulNormal4.20-5.40The [facility] CenterComment on above:Performed By: #### CBC #### [facility] [address] [place] [address] Dr. Lucretia ZamudioWBC11.6 103/ulCritically high4.0-11.0The [facility] CenterComment on above:Performed By: #### CBC #### [facility] [address] [place] [address] Dr. Lucretia ZamudioCULTZA URINEon 09-87-9451ZCAFKWN URINECulture Observations: LIGHT GROWTH OF MIXED GENITAL SILVIA. NO POTENTIAL PATHOGENS SEEN.NormalThe [facility] Medical CenterComment on above:Performed By: #### PROGES #### [facility] [address] [place] [address] Dr. Lucretia ZamudioLIPASEon 16-31-5593Eydncg [Catalytic activity/Vol]85.0 U/LNormal 73.0-393.0The [facility] CenterComment on above:Performed By: #### PROGES #### [facility] [address] [place] [address] Dr. Lucretia Shoemaker QUANT HCGon 36-20-4438SDD QUANT1 mIU/mLNormalThe [facility] Medical CenterComment on above:Performed By: #### PROGES #### [facility] [address] [place] [address] Dr. Lucretia Leyva RANGESEE [facility] HospitalComment on above: Result Comment: 5-50 0.2-1 WEEK 50-500 1-2 WEEKS 100-5,000 2-3 WEEKS 500-10,000 3-4 WEEKS 1,000-50,000 4-5 WEEKS 10,000-100,000 5-6 WEEKS 15,000-200,000 6-8 WEEKS 10,000-100,000 2-3 MONTHSPerformed By: #### PROGES #### [facility] [address] [place] [address] Dr. Lucretia ZamudioPROF 14(COMP METB)on 26-10-6716Nnhraxl [Mass/Vol]4.0 g/dLNormal 3.4-5.0The [facility] on above:Performed By: #### PROGES #### [facility] [address] [place] [address] Dr. Lucretia ZamudioAlbumin/Globulin [Mass ratio]1.1 {ratio}NormalThe [facility] on above:Performed By: #### PROGES #### [facility] [address] [place] [address] Dr. Lucretia Brunson [Catalytic activity/Vol]98 U/HPwtasj00-550Whq [facility] CenterCombeaumont hospital on above:Performed By: #### PROGES #### [facility] [address] [place] [address] Dr. Lucretia Mauro [Catalytic activity/Vol]16 U/GFiuqky51-33Fch [facility] on above:Performed By: #### PROGES #### [facility] [address] [place], [place] [address] Dr. Lucretia Whyte gap [Moles/Vol]9.7 mmol/LNormalThe [facility] CenterComment on above:Performed By: #### PROGES #### [facility] [address] [address] [address] Lucretia ZamudioAST [Catalytic activity/Vol]15 U/LHdrkhd82-89Mse [facility] CenterComment on above:Performed By: #### PROGES #### [facility] [address] [address] [address] Lucretia ZamudioBilirubin [Mass/Vol]0.2 mg/dLNormal0.2-1.0The [facility] Comment on above:Performed By: #### PROGES #### [facility] [address] [place] [address] Dr. Lucretia ZamudioCalcium [Mass/Vol]9.5 mg/dLNormal8.5-10.1The [facility] Comment on above:Performed By: #### PROGES #### [facility] [address] [place] [address] Dr. Lucretia ZamudioChloride [Moles/Vol]102 mmol/OLhpoyt95-652Lfh [facility] Comment on above:Performed By: #### PROGES #### [facility] [address] [place] [address] Dr. Lucretia ZamudioCO2 [Moles/Vol]31.5 mmol/QYhtyqs67.0-32.0The [facility] Comment on above:Performed By: #### PROGES #### [facility] [address] [address] [address] Lucretia ZamudioCreatinine [Mass/Vol]0.79 mg/dLNormal0.55-1.02The [facility] CenterComment on above:Performed By: #### PROGES #### [facility] [address] [address] [address] Lucretia Foster-AF SIERRA LEONEAN>60Normal>=60The [facility] CenterComment on above:Performed By: #### PROGES #### [facility] [address] [place] [address] Dr. Lucretia HuntGFR-NON AF SIERRA LEONEAN>60Normal>=60The [facility] CenterComment on above:Performed By: #### PROGES #### [facility] [address] [place] [address] Dr. Lucretia ZamudioGlobulin (S) [Mass/Vol]3.8 g/dLNormLake County Memorial Hospital - WestComment on above:Performed By: #### PROGES #### [facility] [address] [place] [address] Dr. Lucretia ZamudioGlucose [Mass/Vol]95 mg/iZIkpvkw93-112Pwf [facility] Comment on above:Performed By: #### PROGES #### [facility] [address] [place] [address] Dr. Lucretia ZamudioPotassium [Moles/Vol]4.2 mmol/LNormal3.5-5.1The [facility] Comment on above:Performed By: #### PROGES #### [facility] [address] [place] [address] Dr. Lucretia ZamudioProtein [Mass/Vol]7.8 g/dLNormal6.4-8.2The [facility] Comment on above:Performed By: #### PROGES #### [facility] [address] [place] [address] Dr. Lucretia ZamudioSodium [Moles/Vol]139 mmol/DMfeyip352-492VxfUniversity Hospitals Beachwood Medical Center Comment on above:Performed By: #### PROGES #### [facility] [address] [place] [address] Dr. Lucretia ZamudioUrea nitrogen [Mass/Vol]12.0 mg/dLNormal7.0-18.0The [facility] CenterComment on above:Performed By: #### PROGES #### [facility] [address] [place] [address] Dr. Lucretia Gibbs nitrogen/Creatinine [Mass ratio]15.2 mg/mgNormLake County Memorial Hospital - WestComment on above:Performed By: #### PROGES #### [facility] [address] [place] [address] Dr. Lucretia Pollack RANDOMon 79-44-6628Jgbrfxsct Ql (U)NegativeNormalNEGATIVEUniversity Hospitals Beachwood Medical CenterComment on above:Performed By: #### PROGES #### [facility] [address] [address] [address] Lucretia Salesarity (U)CLEARNormalCLEARUniversity Hospitals Beachwood Medical CenterComment on above: Performed By: #### PROGES #### [facility] [address] [address] [address] Lucretia Cruz (U)LT. YELLOWNormalYELLOWUniversity Hospitals Beachwood Medical CenterComment on above:Performed By: #### PROGES #### [facility] [address] [address] [address] Lucretia ZamudioGlucose Ql (U)NegativeNormalNEGATIVEUniversity Hospitals Beachwood Medical CenterComment on above:Performed By: #### PROGES #### [facility] [address] [place] [address] Dr. Lucretia ZamudioHemoglobin Ql (U)NegativeNormalNEGATIVEOhio State Health System on above:Performed By: #### PROGES #### [facility] [address] [place] [address] Dr. Lucretia ZamudioKetones Ql (U)NegativeNormalNEGATIVEUniversity Hospitals Beachwood Medical CenterComment on above:Performed By: #### PROGES #### [facility] [address] [place] [address] Dr. Lucretia ZamudioLEUKOCYTESNegativeNormalNEGATIVEUniversity Hospitals Beachwood Medical CenterComment on above:Performed By: #### PROGES #### [facility] [address] [address] [address] Lucretia ZamudioNitrite Ql (U)NegativeNormalNEGATIVEUniversity Hospitals Beachwood Medical CenterComment on above:Performed By: #### PROGES #### [facility] [address] [address] [address] Lucretia ZamudiopH (U)7.0 [pH]Normal5-9[facility] Beach[facility] Medical CenterComment on above: Performed By: #### PROGES #### [facility] [address] [address] [address] Lucretia ZamudioSPEC GRAVITY1.544Rxirer4.005-<=1.025The [facility] Medical CenterComment on above:Performed By: #### PROGES #### [facility] [address] [address] [address] Lucretia Pollack PROTEINNegativeNormalNEGATIVE/ TRACEThe [facility] Comment on above:Performed By: #### PROGES #### [facility] [address] [address] [address] Lucretia Davidbilinogen Qn (U)0.2 {Tommie'U}/dLNormal0.2 - 1.0The [facility] CenterComment on above:Performed By: #### PROGES #### [facility] [address] [address] [address] Lucretia ZamudioPhysical Therapy Noteon 88-58-1156Vkpdfwfc Therapy Note [id number]#1.00[facility] Coding Summaryon 86-73-5265Wfimsj SummaryHTMLBase 64 JvsfbnfgIIm0fRk+PGhlYWQ+HI7IOYOiU92kwEJgqW6LD1uCYW9KIALQUDDJMH2QQU6ewGO7WMbjL5Bh biAv [file] PSd (more content not included)...Harrison Community HospitalProvider Orderson 06-90-6712Ofreqsst [id number]#1.00OTSelect Medical Specialty Hospital - Southeast OhioConsent Formson 30-65-9609Phtjcvn Forms [id number]#1.00[facility] Physical Therapy Noteon 30-14-6600Nhkoqtnd Therapy Note [id number]#1.00[facility] Provider Orderson 63-93-1778Yedtautw Orders [id number]#1.00[facility] Coding Summaryon 06-35-5613Jkckbq SummaryHTMLBase 64 UpicgfkwPUq2iLs+PGhlYWQ+KB7FNZXeM02piEJsoX9XN3qSJY9NNBUMSERYSM4XSX0fbLZ4UNvjH2Tq biAv [file] PSd (more content not included)...[facility] Reporton 81-33-7263Ety - MRI [id number]#1.00OTGTIFF [facility] Vital Signs Date TimeVital SignValuePerforming QdpjnasbyXftqriit19-04-7748 13:19-0400Body mass index (BMI) [Ratio]34.36 kg/a4Uwgwc Angel DO Work Phone: 1(606)182-[address] [place], [place] [address]Uggocgvvdt81-87-7798 13:19-0400Body zmymio783.51 kgCorey Angel DO Work Phone: 1(061)649-[address] [place], [place] [address]Ccojuwmswq77-36-6912 13:19-0400Diastolic blood tervrqfv63 mm[Hg]Junito Angel DO Work Phone: [phone] [place], [place] [address]Cgquivcjbw08-32-6609 13:19-0400Systolic blood mm[Hg]Junito Angel DO Work Phone: 5(479)855-[address] [place], [place] [address]Nigvnxqtmv59-97-8698 14:29-0400Body mass index (BMI) [Ratio]33.15 kg/x0Qortz Angel DO Work Phone: [phone] [place], [place] [address]Arhphmdwgb11-85-2337 14:29-0400Body .88 kgCorey Angel DO Work Phone: [phone] Cancer CenterHkzyfnmgjr02-52-6625 14:29-0400Diastolic blood emzotpih09 mm[Hg]Junito Angel DO Work Phone: 1(332)[address] [place], [place] [address]Aqmhtsxlji42-49-0542 14:29-0400Systolic blood mm[Hg]Junito Angel DO Work Phone: [phone]-[facility] Cancer CenterZbixsalrsd27-52-2118 10:06-0400Body mass index (BMI) [Ratio]31.75 kg/q3GuliscorInna Kirkland PLAYGROUND ATTENDANT Work Phone: 1(987)641-[address] [place], [place] [address]Wisyruwowz95-22-9539 10:06-0400Body ukyzpk59.71 kgInna Kirkland PLAYGROUND ATTENDANT Work Phone: 1(551)167-[address] [place], [place] [address]Ujhgxceaxy92-37-9514 10:06-0400Diastolic blood qxgtqxyg83 mm[Hg]Inna Kirkland PLAYGROUND ATTENDANT Work Phone: 1(612)693-[address] [place], [place] [address]Swdlthvjjq20-98-1555 10:06-0400Systolic blood jmdosltx668 mm[Hg]Inna Kirkland PLAYGROUND ATTENDANT Work Phone: 1([phone])[facility] [place], [place] [address]Rzfzhgjuxv56-97-0864 14:59-0400Body mass index (BMI) [Ratio]30.99 kg/h1Utjia Angel DO Work Phone: 1(276)[facility] [place], [place] [address]Bjmbtpqkvi81-22-9531 14:59-0400Body iooufe56.44 kgCorey Angel DO Work Phone: 1(327)[facility] [place], [place] [address]Ttlqnjiwpe39-84-0615 14:59-0400Diastolic blood wyiqplcc88 mm[Hg]Junito Angel DO Work Phone: 1(050)[facility] [place], [place] [address]Dwqgahznvp63-08-1322 14:59-0400Systolic blood uuzyvpli794 mm[Hg]Junito Angel DO Work Phone: 1(032)[address] [place], [place] 3421506-25-2025 13:39-0400Body mass index (BMI) [Ratio]29.73 kg/u5Rqgpk Angel DO Work Phone: 1(215)[address] [place], [place] 3421506-25-2025 13:39-0400Body zuisrr04.68 kgCorey Angel DO Work Phone: 1(534)[facility] [place], [place] [address]Ydzagpljig17-19-7796 13:39-0400Diastolic blood njhfooow60 mm[Hg]Junito Angel DO Work Phone: 1(648)[facility] [place], [place] [address]Jtotynchot48-74-1419 13:39-0400Systolic blood emhkkspr595 mm[Hg]Junito Angel DO Work Phone: 1(582)[address] [place], [place] 3421507-02-2024 12:30-0400Body ravlos523.45 cmAPRYamilka Crocketterwhit Work Phone: 1(031)[address] [place], [place] 1454407-02-2024 12:30-0400 Body mass index (BMI) [Ratio]31.6 kg/m2YANELI Crocketterwhit Work Phone: 1(221)[address] [place], [place] 1454407-02-2024 12:30-0400 Body olatgqmfxsi92.8 [degF]YANELI Crocketterwhit Work Phone: 1(476)[address] [place], [place] 1454407-02-2024 12:30-0400 Body amsxjn76.98 kgYANELI Ding Work Phone: 1(259)[address] [place], [place] 1454407-02-2024 12:30-0400 Diastolic blood zavhgqia72 mm[Hg]YANELI Crocketterwhit Work Phone: 1(431)[address] [place], [place] 1454407-02-2024 12:30-0400 Heart rate69 /minYANELI Crocketterwhit Work Phone: 1(644)[address] [place], [place] 1454407-02-2024 12:30-0400 Respiratory rate20 /minYANELI Crocketterwhit Work Phone: 1(371)[address] [place], [place] 1454407-02-2024 12:30-0400 SaO2% (BldA) [Mass fraction]99 %YANELI Crocketterwhit Work Phone: 1(253)[address] [place], [place] 1454407-02-2024 12:30-0400 Systolic blood onflzmyy635 mm[Hg]YANELI Crocketterwhit Work Phone: 1(227)[address] [place], [place] 1454406-05-2024 08:58-0400 Body uzgizq782.45 [facility]2024 08:58-0400Body mass index (BMI) [Ratio]31.6 kg/a7HnwstziehKettering Health [facility]06-05-2024 08:58-0400Body .98 kgK[facility]03-27-2024 11:00-0400Body nojbvg151.45 cmK[facility]03-27-2024 11:00-0400Body mass index (BMI) [Ratio]31.6 kg/a6JqatlbxnxKettering Health [facility]03-27-2024 11:00-0400Body rswfpstucvt35 [degF][facility]03-27-2024 11:00-0400Body ewiixm50.98 kgK[facility] 09-19-2023 11:00-0400Diastolic blood uwcvlhqq99 mm[Hg][facility]03-27-2024 11:00-0400Heart rate80 /[facility] 09-19-2023 11:00-0400Respiratory rate20 /[facility] 09-19-2023 11:00-8326WwW7% (BldA) [Mass fraction]98 %[facility]03-27-2024 11:00-0400Systolic blood qwuvzstr281 mm[Hg][facility]03-13-2024 09:42-0400Body bsyklw265.7 Serg DUONGC Work Phone: [facility] [employer] Bcuhde88-77-6650 09:42-0400Body mass index (BMI) [Ratio]30.79 kg/b4JiusmkuTy CRISTINA-C Work Phone: [facility] [place] Vigwwn11-67-3355 09:42-0400Body vzuois11.85 kgTy CRISTINA-C Work Phone: [facility] [place] Dkumet84-68-9445 09:42-0400Diastolic blood bncnaeoh47 mm[Hg]Ty CRISTINA-C Work Phone: [facility] [place] Jndxag27-23-1975 09:42-0400Heart rate 73 /minTy CRISTINA-C Work Phone: [facility] [employer] Srqwul83-37-9472 09:42-0400Systolic blood snyexcri573 mm[Hg]Ty CRISTINA-C Work Phone: [facility] [place] Omyrph48-26-2656 17:00-0500Body zewmjx506.45 cmDana Easterwood Other [employer] Other 12-06-2023 08:00-0500Body zeygfe873.45 cmDana Easterwood Other [employer] Other 12-06-2023 08:00-0500Body mass index (BMI) [Ratio] 33.48 kg/m2Dana Bonerdanville Other [employer] Other 12-06-2023 08:00-0500Body urezhlzavmn14.2 [degF]Nelida Bonerwood Other [employer] Other 12-06-2023 08:00-0500Body bdeijv99.43 kgDana Bonwhit Other [employer] Other 12-06-2023 08:00-0500Diastolic blood mm[Hg] Nelida Easterwood Other [employer] Other 12-06-2023 08:00-0500Respiratory rate20 /minDana Easterwood Other [employer] Other 12-06-2023 08:00-5899SeY5% (BldA) [Mass fraction]99 % Nelida Easterwood Other [employer] Other 12-06-2023 08:00-0500Systolic blood rryuxtuw398 mm[Hg] Nelida Easterwood Other [employer] Other 09-11-2023 10:30-0400Body bynasw821.45 cmDana Bonerwhit Other [employer] Other 09-11-2023 10:30-0400Body mass index (BMI) [Ratio] 33.33 kg/m2Dana Easterwood Other [employer] Other 09-11-2023 10:30-0400Body rxydvhwsvtp86 [degF]Nelida Easterwood Other [employer] Other 09-11-2023 10:30-0400Body qrexzx44.98 kgDana Easterwood Other [employer] Other 09-11-2023 10:30-0400Diastolic blood gidbwnbz60 mm[Hg] Nelida Easterwood Other [employer] Other 09-11-2023 10:30-0400Respiratory rate20 /minDana [facility]federal [facility] [place] Other [employer] Other 09-11-2023 10:30-7107FxV3% (BldA) [Mass fraction]99 % Nelida Easterwood Other [employer] Other 09-11-2023 10:30-0400Systolic blood uzfrljls844 mm[Hg] Nelida Easterwood Other [employer] Other 08-30-2023 11:00-0400Body wbgkap161.45 cmDana Easterwood Other [employer] Other 08-30-2023 11:00-0400Body mass index (BMI) [Ratio] 33.48 kg/m2Dana Easterwood Other [employer] Other 08-30-2023 11:00-0400Body eqboatwsfxr44.9 [degF]Nelida Ding Other [employer] Other 08-30-2023 11:00-0400Body .43 kgDamanisha Ding Other [employer] Other 08-30-2023 11:00-0400Diastolic blood bjvacxcd62 mm[Hg] Nelida Ding Other [employer] Other 08-30-2023 11:00-0400Respiratory rate20 /minDjeromy Ding Other [employer] Other 08-30-2023 11:00-6124UpE7% (BldA) [Mass fraction]98 % Nelida Ding Other [employer] Other 08-30-2023 11:00-0400Systolic blood ptkfnmpe541 mm[Hg] Nelida Ding Other [employer] Other Encounters Encounter DateEncounter TypeCare ProviderFacilityStart: 72-91-6252bhbmhqgfsj Inna EbivanlyFacility:[facility] Hospitaltart: 04-29-2025 End: 78-65-1208Uxnvcggz flow sheetCorey Angel DO Work Phone: [facility] [place] OBGYNComment on above:Third trimester ([facility]); 30 weeks gestation of ([facility])Start: 04-29-2025 End: 63-87-4809pgkmetjiieLCHUH FAZIONot AvailableStart: 04-22-2025 End: 70-73-3289Cxbqnjhqq Result EncounterCorey Angel DO Work Phone: NOGC External Department UnsolicitedStart: 04-22-2025 End: 77-10-0707Oaxgycxjm Result EncounterCorey Angel DO Work Phone: noms External Department UnsolicitedStart: 04-15-2025 End: 34-73-4222Edsinp flowsheetCorey Angel DO Work Phone: [facility] [place] OBGYNStart: 04-15-2025 End: 56-49-8911Sdwgxd flowsheetCorey Angel DO Work Phone: NOCX [place] OBGYNStart: 04-15-2025 End: 98-75-6707Dtadeppa flow sheetCorey Angel DO Work Phone: NOXR [place] OBGYNComment on above:Third trimester ([facility]); 28 weeks gestation of ([facility]); size inconsistent with dates ([facility]); Racing heart beatStart: 04-15-2025 End: 88-33-9490jwhuvcngbuFOHWB FAZIONot AvailableStart: 04-01-2025 End: 47-41-6826Zqsiuocrm Result EncounterInna Kirkland NP Work Phone: NONU External Department UnsolicitedStart: 04-01-2025 End: 94-12-1445Hthtvnayy Result EncounterInna Kirkland NP Work Phone: noms External Department UnsolicitedStart: 03-18-2025 End: 33-64-0866Wqvqissm flow sheetCorey Angel DO Work Phone: [facility] [place] OBGYNComment on above:Second trimester ([facility]); 24 weeks gestation of ([facility]); Diabetes mellitus screeningStart: 03-18-2025 End: 38-46-2118ihhopdmxgeUDZBR FAZIONot AvailableStart: 02-18-2025 End: 20-78-3505Nxuthcrl flow sheetInna Kirkland NP Work Phone: [facility] [place] OBGYNComment on above:Nausea and vomiting in ([facility]) (Primary Dx); Second trimester ([facility]); 20 weeks gestation of ([facility]); Elevated heart rate with elevated blood pressure without diagnosis of hypertensionStart: 02-18-2025 End: 42-13-4947cywzuxxxvuUKBQZKLG EBERLYNot AvailableStart: 02-18-2025 End: 55-51-6698rtsriipwovEXJIV FAZIONot AvailableStart: 01-14-2025 End: 07-07-7943Kutrfnq encounter procedureCorey Angel DO Work Phone: noms HealthcareStart: 01-14-2025 End: 22-95-4076Nnevtbyk preventive med est patient 18-39 yrsCorey Angel DO Work Phone: [facility]oms [facility] OBComment on above:15 weeks gestation of ([facility]); Second trimester ([facility]); Gastroesophageal reflux disease with esophagitis, unspecified whether hemorrhage; Screening, , for anatomic survey ([facility]); Exposure to STD; Vaginal discharge; Well woman exam with routine gynecological exam; Nausea and vomiting in ([facility]); related fatigue in second trimester ([facility]); Insomnia, unspecified type; Other migraine with status migrainosus, not intractableStart: 01-14-2025 End: 16-40-0171siepielusnVUQCM FAZIONot AvailableStart: 01-14-2025 End: 72-82-8851Eoqzuv flowsheetCorey Angel DO Work Phone: noms BCP OBStart: 01-14-2025 End: 61-16-4821Slckfb flowsheetCorey Angel DO Work Phone: noms BCP OBStart: 01-14-2025 End: 27-48-2960Vzmqsucyj Result EncounterCorey Angel DO Work Phone: noms External Department UnsolicitedStart: 01-14-2025 End: 38-35-1845Ccigvold Result EncounterCorey Angel DO Work Phone: noms External Department UnsolicitedStart: 12-17-2024 End: 22-52-7017Voeewp flowsheetCorey Angel DO Work Phone: [facility] BCP OBStart: 12-17-2024 End: 44-90-9536Kflrgq flowsheetCorey Angel DO Work Phone: [facility] BCP OBStart: 12-17-2024 End: 21-27-4670Bzelrqzm flow sheetCorey Angel DO Work Phone: noMS BCP OBComment on above:11 weeks gestation of ([facility]); First trimester ([facility]); Nausea and vomiting in ([facility]); Gastroesophageal reflux disease with esophagitis, unspecified whether hemorrhage; Meconium aspiration in child of prior , currently , unspecified trimester ([facility])Start: 12-17-2024 End: 95-76-0373ipflqfakvvUIGRF FAZIONot AvailableStart: 12-10-2024 End: 82-72-7475Xxswphfmb Result EncounterCorey Angel DO Work Phone: noms External Department UnsolicitedStart: 12-10-2024 End: 06-72-0657Kdwxdhpyl Result EncounterCorey Angel DO Work Phone: noMS External Department UnsolicitedStart: 12-05-2024 End: 05-04-0447Sbxyzx outpatient visit 5 minutesNoms Bcp Ob Angel NurseNOMS BCP OBComment on above:GA: 5g7tLgjts: 12-05-2024 End: 07-95-6059wmbjmrssaxEHTVX FAZIONot AvailableStart: 07-03-2024 End: 37-10-1401XczpexVzywahbYamilex Stratton PA-C Work Phone: [facility] NeurologyComment on above: Migraine without aura and without status migrainosus, not intractableStart: 12-25-2023 End: 30-38-7293waexfqluvbRKFX [facility]elida [facility] [place] Work Phone: [facility] Work Phone: Start: 12-25-2023 End: 93-57-4492Nriyjyb encounter procedureAPRYamilka Crock[facility]federal [facility], [place] Work Phone: [facility] Work Phone: Start: 66-54-3139Rvd-patient / Non-visitYANELI [facility]federal [facility] [place] Work Phone: [facility] Work Phone: Start: 12-05-2023 End: 64-09-0126kgmjmeregeKYJC Dana J [facility] Work Phone: [facility] Work Phone: Start: 12-05-2023 End: 41-25-0654Thlguljq ReferredYANELI Mendoza [facility] Work Phone: [facility]-LAB Path Spec [facility] HospStart: 11-28-2023 End: 67-03-6730znlzxjjhocBlnchqbipMiami Valley Hospital Work Phone: Start: 11-28-2023 End: 14-60-0014Hnoofxm encounter procedureFormerly [facility] Work Phone: Start: 09-19-2023 End: 43-93-0807ufbscceaxgDxvamqumlMiami Valley Hospital Work Phone: Start: 09-19-2023 End: 51-10-8539Xzyjcyk encounter procedureFormerly [facility] GroupSc[facility] Work Phone: Start: 09-05-2023 End: 47-99-0480wvzilcgnhePUODHKQ C HAMILTONWhite Hospitalgay [facility] Hearttart: 09-05-2023 End: 71-47-0503Ivsncr outpatient visit 25 minutesAnthaleksey Stratton PA-C Work Phone: [facility] Physicians NeurologyComment on above: Migraine without aura and without status migrainosus, not intractable (Primary Dx); Vestibular migraine; Pineal gland cyst; Hx of concussion; Daytime somnolenceStart: 65-22-9028Xav-patient / Non-visitFirtonia Physician [facility] Work Phone: Start: 07-16-2023 End: 56-68-4710roxgpfkzffJzew [facility] Other noCollplant Other Start: 44-62-9235Yopcmnswc encounterDana [facility] Family [facility] Centeromment on above:WEENING OFF QULIPTAStart: 07-09-2023 Patient encounter procedureBelle Physician Group-Start: 06-06-2023 End: 98-98-9905zsjsymhfytBwug [facility] Other [employer] Other Start: 89-58-2582PV ONLINE E/M JOHAN DICKINSON 05-14[facility]: 06-38-0504Plizrymrh encounterDana [facility] Hospitaltart: 05-30-2023 End: 25-33-8613gnyakpovcaVfrb [facility] Other noCollplant Other Start: 77-33-8239Nyeikv outpatient visit 25 minutes Nelida [facility] Ranchotart: 05-25-2023 End: 05-70-3096giuqjdburfNlsi [facility] Other [employer] Other Start: 77-68-5136Giacsptuw encounterDana [facility] Hospitaltart: 05-03-2023 End: 79-17-7786kggmicyhdvConp [facility] Other noCollplant Other Start: 95-32-3372Sudgldfgp encounterDana [facility] Hospitaltart: 03-05-2023 End: 62-63-3839qaoktqdgoxNbac [facility] Other [employer] Other Start: 80-65-5109Mokxlv outpatient visit 25 minutes Nelida [facility] CenterkStart: 02-21-2023 End: 11-50-9920nkgzqhpuxzVoad [facility] Other [facility] [employer] Other Start: 88-96-2783Lqxiqz outpatient visit 40 minutes Nelida [facility] CenterkStart: 21-61-9981Gfwieosny encounter Nelida [facility] Ranchotart: 11-01-2022 End: 00-82-2125tawpcjfbatLK JUNITO ANGEL .Facility:G7Oapih: 09-06-2022 End: 56-74-2032bktanwuumgEU JUNITO ANGEL .Facility:P6Ampau: 08-26-2022 End: 27-93-9522arheyizhaeKY JUNITO ANGEL .Facility:W9Nfvyk: 08-02-2022 End: 48-35-0359rqafqfapuoPE JUNITO ANGEL .Facility:X7Cfamh: 07-12-2022 End: 23-80-1444lpnkzqsbptHW GIA Yocility:H1 Procedures DateProcedureProcedure DetailPerforming ClinicianStart: 51-11-3841Xpsro dip stick/tablet rgnt non-auto w/o micrscpCorey Angel DO Work Phone: Start: 93-75-1362QF ECHO DOPPLER COMPLETECorey Angel DO Work Phone: Start: 85-64-9300BZS 12-LEADCorey Angel DO Work Phone: Start: 91-14-0109Obhpg dip stick/tablet rgnt non-auto w/o micrscpCorey Angel DO Work Phone: Start: 19-61-3165UNXAUGT 1 HOURInna Kirkland PLAYGROUND ATTENDANT Work Phone: Start: 32-11-7591Bwtlq dip stick/tablet rgnt non-auto w/o micrscpInna Kirkland PLAYGROUND ATTENDANT Work Phone: Start: 34-71-5587Aermn dip stick/tablet rgnt non-auto w/o micrscpInna Kirkland PLAYGROUND ATTENDANT Work Phone: Start: 42-73-3375BUFYCPZNW VAGINITIS (HTRX)Junito Angel DO Work Phone: Start: 99-65-0392Fukdo dip stick/tablet rgnt non-auto w/o micrscpCorey Angel DO Work Phone: Start: 75-24-0318QYZ,APTIMA HPV,AGE GDLNCorey Angel DO Work Phone: Start: 82-54-8129Imicq dip stick/tablet rgnt non-auto w/o micrscpCorey Angel DO Work Phone: Start: 55-24-9618CIL CBC WITH AUTO DIFFCorey Angel DO Work Phone: Start: 12-05-2024 End: 72-80-5367Tekpm dip stick/tablet rgnt non-auto w/o micrscpCorey Angel DO Work Phone: Start: 09-63-7503Ochhzx-up visitFollow-Janeth STRATTONStart: 31-69-9465Udsms depression screening assessmentBryce Hospital [facility] Plan of Treatment DateCare ActivityDetailAuthorStart: 05-13-2025 End: 18-85-8481Xkyxpmv encounter bnlwwagzo49/19/2025 1:20 PM EST Routine NATALIE KEARNS [address] [place], [id number] Nicole Ghosh PA [address] [place] [address] [facility] [place] OBGYNStart: 04-29-2025 End: 66-30-3309Jtivflo encounter kiinyechs40/05/2025 1:30 PM EST Routine [facility] [address] [place], [id number] Junito Ortiz, DO [address] [place] [address] [facility] [place] OBGYNStart: 04-29-2025 End: 06-89-1176Uygapgtvyhuw / ancillary services /05/2025 1:00 PM EST Ancillary Procedure [facility] [address] [place] [id number] [facility] [place] OBGYNStart: 04-15-2025 End: 13-63-6623Tpuxgrsmqkpceo 2D completeEchocardiogram 2D complete Echocardiography Routine Racing heart beat Expected: 04/15/2025 (Approximate), Expires: 04/15/2027[facility] Work Phone: comment on above:Expected: 04/15/2025 (Approximate), Expires: 04/15/2027Start: 04-15-2025 End: 60-54-5666XE for pregnancyUS OB follow up transabdominal approach Imaging Routine size inconsistent with dates ([facility]) Expected: 04/15/2025, Expires: 08/16/2025NOMO HealthcareComment on above:Expected: 04/15/2025, Expires: 08/16/2025Start: 04-15-2025 End: 33-80-8991Mqdgnwk encounter procedureNOMS [place] OBGYNComment on above: ArrivedStart: 03-18-2025 End: 17-55-2113Bmooztn encounter zahqllajx08/24/2025 2:20 PM EDT Routine [facility] [place] [facility] [address] [place], [id number] Junito Ortiz, DO [address] [place] [address] NATALIE [place] OBGYNStart: 03-18-2025 End: 40-62-1808FJI panel - Blood by Automated countCBC Lab Routine Diabetes mellitus screening Expected: 03/18/2025 (Approximate), Expires: 03/18/2026[facility] Work Phone: comment on above:Expected: 03/18/2025 (Approximate), Expires: 03/18/2026Start: 03-18-2025 End: 82-40-0135Qdakxvlmhjw of glucose 1 hour after glucose challenge for glucose tolerance testGlucose tolerance, 1 hour Lab Routine Diabetes mellitus screening Expected: 03/18/2025 (Approximate), Expires: 03/18/2026[facility] HealthcareComment on above:Expected: 03/18/2025 (Approximate), Expires: 03/18/2026Start: 95-84-3084WBLWD-19 Vaccine ( season)COVID-19 Vaccine ()[facility] CenterStart: 45-71-6547Ejkvanigi vaccinationAlvin J. S[facility] Cancer Center Start: 02-18-2025 End: lead ECGECG 12 lead unit performed ECG Routine Elevated heart rate with elevated blood pressure without diagnosis of hypertension Expected: 02/18/2025 (Approximate), Expires: 02/18/2026[facility] Work Phone: comment on above:Expected: 02/18/2025 (Approximate), Expires: 02/18/2026Start: 02-18-2025 End: 70-39-8327Hnkwhrj encounter procedureNOMS [facility] OBStart: 02-18-2025 End: 17-79-2920Wbjymempmecq / ancillary services managementNOMS BCP OBStart: 01-14-2025 End: 13-73-2600Lxzfpro encounter fnceushoi73/23/2025 2:40 PM EDT Routine [facility] [address] [place] [id number] Junito Ortiz, DO [address] [place], [place] [id number] NOMS BCP OBStart: 01-14-2025 End: 80-32-2543Aghwy fetoprotein, maternalAlpha fetoprotein, maternal Lab Routine Second trimester ([facility]) Expected: 01/14/2025 (Approximate), Expires: 03/17/2025[facility] HealthcareComment on above:Expected: 01/14/2025 (Approximate), Expires: 03/17/2025Start: 01-14-2025 End: 16-14-3876JE for pregnancyUS OB 14+ weeks anatomy scan Imaging Routine Screening, , for anatomic survey ([facility]) Expected: 01/14/2025, Expires: 04/16/2025[facility] HealthcareComment on above:Expected: 01/14/2025, Expires: 04/16/2025Start: 12-17-2024 End: 93-65-4112Letjuli encounter procedureNOSHC [facility]TY [facility] OBComment on above:Arrived Start: 12-05-2024 End: 93-30-8371XYG/RhABO/Rh Lab Routine Missed menses , unspecified gestational age ([facility]) Expected: 12/05/2024 (Approximate), Expires: 12/05/2025[facility] HealthcareComment on above:Expected: 12/05/2024 (Approximate), Expires: 12/05/2025Start: 12-05-2024 End: 78-32-2921Rzbsh type and Indirect antibody screen panel - BloodType and screen Lab Routine Missed menses , unspecified gestational age ([facility]) Expected: 12/05/2024 (Approximate), Expires: 12/05/2025[facility] Work Phone: comment on above:Expected: 12/05/2024 (Approximate), Expires: 12/05/2025Start: 12-05-2024 End: 21-11-8300Qqtib of abuse panel - Urine by Screen methodRapid drug screen, urine Lab Routine , unspecified gestational age ([facility]) Encounter for supervision of normal first in first trimester ([facility]) Expected: 12/05/2024 (Approximate), Expires: 12/05/2025[facility] HealthcareComment on above: Expected: 12/05/2024 (Approximate), Expires: 12/05/2025Start: 12-05-2024 End: 94-42-1616Zbouvjifqli [Mass/volume] in Serum or PlasmaTransferrin Lab Routine Dizzy Lightheaded Expected: 12/05/2024 (Approximate), Expires: 12/05/2025[facility] HealthcareComment on above:Expected: 12/05/2024 (Approximate), Expires: 12/05/2025Start: 57-93-6003Ofhkl BMI ScreeningAdult BMI Screening [facility]: 12-90-3298Fbuabfs ScreeningTobacco Screening [facility]: 38-28-2563Mrhgd BMI ScreeningAdult BMI Screening [facility]: 95-74-1385Dvsencawnl ScreeningDepression Screening [facility] SystemStart: 71-96-7381Ekbahzj ScreeningTobacco Screening [facility]: 59-35-4882Jznoebtvk vaccinationInfluenza Vaccine [facility]: 12-12-2023 End: 07-37-3513Wpkfulf encounter klzbfrefs03/19/2024 9:00 AM EDT Office Visit [facility] [address] [facility] [place] [address] Ty Stratton, ABEBE [address] [place] [address] [facility] Start: 12-06-2023 End: 02-67-2642KL Brain WO contrastMR brain without contrast Imaging Routine Migraine without aura and without status migrainosus, notintractable Vestibular migraine Pineal gland cyst Expected: 12/06/2023 (Approximate), Expires: 09/04[facility] Work Phone: Comment on above:Expected: 12/06/2023 (Approximate), Expires: 09/04/2024Start: 10-31-2023 End: 90-23-8272Dycuvfx encounter rsffptgte83/08/2024 8:45 AM EDT Office Visit [facility] [address] [place] [address] Jani Mir MD [address] [place] [address] [facility]ocr[facility]ologyStart: 10-24-2023 End: 03-47-9231Wvachdj encounter nbayhwdna69/01/2024 10:00 AM EDT Office Visit [facility] [address] [id number] Megan Lopez APRN-EARTH SCIENCE TECHNICIAN [address] [facility] [address] [place] [address] [facility] MedicineStart: 09-05-2023 End: 20-99-8460Wikwinn encounter qsnnosnwn50/13/2024 9:30 AM EDT Office Visit [facility] [address] [place] [id number] Ty Stratton PA-C [address] [place] [address] [facility] Start: 08-01-2023 End: 92-69-3927Tbxllit encounter wdqpgjuhc83/07/2024 10:30 AM EST Office Visit [facility] [address] [place] [address] Jani Mir MD [address] [place] [address] [facility]ocr[facility]ologyStart: 10-08-1441Dhuckhrlu vaccinationInfluenza Vaccine [facility] SystemStart: 27-63-6023JGW Vaccines (1 - 3-dose SCDM series)HPV Vaccines (1 - 3-dose SCDM series)[facility] HealthcareStart: 20-78-9528Srvypjibk for malignant neoplasm of cervixPap SmearMount St. Mary Hospital SystemStart: 12-19-2014 DTaP,Tdap and Td Vaccines (1 - Tdap)DTaP,Tdap and Td Vaccines (1 - Tdap) [facility] SystemStart: 51-42-5056Vcqirfhvu B Vaccines (1 of 3 - 19+ 3- dose series)Hepatitis B Vaccines (1 of 3 - 19+ 3-dose series)[facility] Start: 81-33-0447Wdgkr BMI Follow Up PlanAdult BMI Follow Up PlanMount St. Mary Hospital SystemStart: 15-58-0410Rchucxf of varicella vaccinationVaricella Vaccines (1 of 2 - 13+ 2-dose series)[facility] HealthcareStart: 44-78-8929INbZ/Tdap/Td Vaccines (1 - Tdap)DTaP/Tdap/Td Vaccines (1 - Tdap)[facility] HealthcareStart: 72-24-1412HHU Vaccines (1 of 1 - Standard series)MMR Vaccines (1 of 1 - Standard series)[facility] Cancer CenterBacteria identified in Urine by CultureUrine culture Microbiology Routine Missed menses Ordered: 12/05/2024[facility] HealthcareComment on above:Ordered: 12/05/2024BC W Auto Differential panel - BloodCBC and differential Lab Routine Missed menses , unspecified gestational age ([facility]) Ordered: 12/05/2024[facility] HealthcareComment on above:Ordered: 12/05/2024 CHLAMYDIA TRACHOMATIS (GENITO/STI)CHLAMYDIA TRACHOMATIS (GENITO/STI) Lab Routine Exposure to STD Ordered: 01/14/2025[facility] HealthcareComment on above:Ordered: 01/14/2025ytology Cervical or vaginal smear or scraping studyPap Smear Pathology and Cytology Routine Well woman exam with routine gynecological exam Ordered: 01/14/2025[facility] HealthcareComment on above:Ordered: 01/14/2025Ferritin [Mass/volume] in Serum or PlasmaFerritin Lab Routine Dizzy Lightheaded Ordered: 12/05/2024[facility] HealthcareComment on above:Ordered: 12/05/2024Hemoglobin A1c/Hemoglobin.total in BloodHemoglobin A1c Lab Routine Missed menses , unspecified gestational age ([facility]) Ordered: 12/05/2024[facility] HealthcareComment on above:Ordered: 12/05/2024Hepatitis B virus surface Ag [Presence] in Serum or Plasma by ImmunoassayHepatitis B surface antigen Lab Routine Missed menses , unspecified gestational age ([facility]) Ordered: 12/05/2024[facility] HealthcareComment on above:Ordered: 12/05/2024Hepatitis C virus Ab [Presence] in Serum or Plasma by ImmunoassayHepatitis C antibody Lab Routine Missed menses , unspecified gestational age ([facility]) Ordered: 12/05/2024[facility] HealthcareComment on above:Ordered: 12/05/2024HIV-1/HIV-2 antigen/antibody combination immunoassayHIV-1 and HIV-2 antibodies Lab Routine Missed menses , unspecified gestational age ([facility]) Ordered: 12/05/2024[facility] HealthcareComment on above:Ordered: 12/05/2024Neisseria gonorrhoeae DNA [Presence] in Unspecified specimen by HANNAH with probe detectionNeisseria gonorrhea DNA probe, direct Lab Routine Exposure to STD Ordered: 01/14/2025[facility] HealthcareComment on above:Ordered: 01/14/2025Reagin Ab [Presence] in Serum by RPRRPR Lab Routine Missed menses , unspecified gestational age ([facility]) Ordered: 12/05/2024[facility] HealthcareComment on above:Ordered: 12/05/2024 Rubella antibody, IgGRubella antibody, IgG Lab Routine Missed menses , unspecified gestational age ([facility]) Ordered: 12/05/2024[facility] HealthcareComment on above:Ordered: 12/05/2024SURESWAB(R) ADVANCED VAGINITIS PLUS, TMASURESWAB(R) ADVANCED VAGINITIS PLUS, TMA Pathology and Cytology Routine Vaginal discharge Ordered: 01/14/2025[facility] Work Phone: comment on above:Ordered: 01/14/2025 Immunizations Immunization DateImmunizationNotesCare GbltajqcGlyyimqy97-73-6784yckoblv and diphtheria toxoids, adsorbed, preservative free, for adult use (5 Lf of tetanus toxoid and 2 Lf of diphtheria toxoid)[facility]08-13-2020 tetanus toxoid, reduced diphtheria toxoid, and acellular pertussis vaccine, jigneshDamanisha Ding Other [facility] [employer] Other Payers DatePayer CategoryPayerPolicy [id number] Health [id number]-[id number] Care Other (unspecified)[facility] ..[id number]9[place]kk[place] Health Insurance [id number] Health Insurance [id number] 1.061302.3.57[id number] ..1.130332.3.57[id number] ..1.417253.3.57[id number] 2..1.260142.3.57[id number] 2..1.134810.3.57[id number] 2.16.840.1.784925.3.57[id number] 2.16.840.1.140835.3.57[id number] 2.16.840.1.837029.3.57[id number] 2.16.840.1.654278.3.57[id number] 2.16.840.1.596890.3.57[id number] 2.16.840.1.058186.3.57[id number] 2..840.1.757367.3.57[id number] 2.16.840.1.000351.3.57[id number] 2.16.840.1.053733.3.57[id number] 2.16.840.1.206584.3.57[id number] 2.840.1.178932.3.57[id number] 2.840.1.556527.3.579.2.185632-28-0494Dhexhjx Health [id number] Private Health InsuranceBrown Memorial [id number] 2.840.1.120690.3.579.2.531 Social History DateTypeDetailFacilityStart: 12-19-2019 End: 82-06-3159Sku Assigned At [facility] [employer] Other Start: 09-03-2023 End: 95-31-1240Xhwjhrv smoking status NHISNever smoked tobacco (finding) [facility]: 68-94-0480Ewx Assigned At [facility]boroFeCleveland Clinictart: 03-21-2023 End: 95-80-2886Cxohzam use and exposureSmokeless tobacco non-userMount St. Mary Hospital SystemStart: 09-05-2023 End: 00-56-5887Kxanqoteo beverage intakeCurrent drinker of alcohol (finding) [facility] [facility] Centertart: 12-19-2019 End: 15-60-7012Etivera of Social functionMercy Memorial HospitalHow often to you have a drink containing alcohol?NeverCentral Harnett Hospitaltart: 09-06-2022 Average Number of DrinksNot on [facility]: 03-21-2023 Alcohol CommentsocialCentral Harnett Hospitaltart: 50-68-1177Xpi assigned at formerly [facility] duplin hospitalNot on [facility] Hospitaltart: 21-06-3755OahCufdpx (finding) [facility]: 08-08-6804Oeksabz CommentOne drink per monthAlvin J. Siteman Cancer CenterStart: 58-49-0137RjpsrulhyHNNH Healthcare Clinical Notes 02-04-2020 to 04-29-2025 Note Date & VkfuCmrbPslswbdo72-97-3082 History of Present illness Narrative* Inna Kirkland [...] Diagnosis Date Noted Positive urine test ([facility]) 12/03/2024 Resolved Ambulatory Problems Diagnosis Date [...] nursing note reviewed. Exam conducted with a professor in family studies present. Vitals: Estimated body mass index is 34.36 kg/m as calculated from the following: Height as of 01/23/24: 5' 8 . Weight as of 04/15/25: 226 lb. BP: Patient's last menstrual period was 09/28/2024. Assessment/Plan ICD-10-CM 1. Third trimester ([facility]) Z34.93 2. 30 weeks gestation of ([facility]) Z3A.30 POCT urinalysis dipstick manually resulted [...] of: Junito Ortiz DO documented in this encounterAlvin J. Siteman Cancer CenterKrbtxmtsfa86-72-3421 History of Present illness Narrative* Saumya Simmons [...] Diagnosis Date Noted Positive urine test ([facility]) 12/03/2024 Resolved Ambulatory Problems Diagnosis Date [...] nursing note reviewed. Exam conducted with a professor in family studies present. Vitals: Estimated body mass index is 33.15 kg/m as calculated from the following: Height as of 01/23/24: 5' 8 . Weight as of 03/18/25: 218 lb. BP: Patient's last menstrual period was 09/28/2024. Assessment/Plan ICD-10-CM 1. Third trimester ([facility]) Z34.93 2. 28 weeks gestation of ([facility]) Z3A.28 POCT urinalysis dipstick manually resulted [...] of: Junito Ortiz DO documented in this encounterAlvin J. Siteman Cancer CenterXlnysulpby03-55-4318 History of Present illness Narrative* Ariadna Bowden [...] Diagnosis Date Noted Positive urine test ([facility]) 12/03/2024 Resolved Ambulatory Problems Diagnosis Date [...] nursing note reviewed. Exam conducted with a professor in family studies present. Vitals: Estimated body mass index is 33.15 kg/m as calculated from the following: Height as of 01/23/24: 5' 8 . Weight as of this encounter: 218 lb. BP: 122/70 Patient's last menstrual period was 09/28/2024. ASSESSMENT & PLAN ICD-10-CM 1. Second trimester ([facility]) Z34.92 POCT urinalysis dipstick manually resulted 2. 24 weeks gestation of ([facility]) Z3A.24 3. Diabetes mellitus screening Z13.1 [...] of: Junito Ortiz DO documented in this encounterAlvin J. Siteman Cancer CenterLiehxdrkcc56-76-6300 History of Present illness Narrative* Inna Kirkland [...] Diagnosis Date Noted Positive urine test ([facility]) 12/03/2024 Resolved Ambulatory Problems Diagnosis Date [...] nursing note reviewed. Exam conducted with a professor in family studies present. Vitals: Estimated body mass index is 31.75 kg/m as calculated from the following: Height as of 24: 5' 8 . Weight as of this encounter: 208 lb 12.8 oz. BP: 116/70 Patient's last menstrual period was 09/28/2024. ASSESSMENT & PLAN ICD-10-CM 1. Nausea and vomiting in ([facility] O21.9 promethazine (Phenergan) 12.5 MG tablet 2. Second trimester ([facility]) Z34.92 POCT urinalysis dipstick manually resulted 3. 20 weeks gestation of ([facility]) Z3A.20 POCT urinalysis dipstick manually resulted 4. [...] of: Inna Kirkland NP documented in this encounterAlvin J. Siteman Cancer CenterNeingskxaf54-52-6025 History of Present illness Narrative* Saumya Simmons [...] Diagnosis Date Noted Positive urine test ([facility]) 12/03/2024 Resolved Ambulatory Problems Diagnosis Date Noted [...] nursing note reviewed. Exam conducted with a professor in family studies present. Vitals: Estimated body mass index is 30.99 kg/m as calculated from the following: Height as of 7/31/24: 5' 8 . Weight as of this encounter: 203 lb 12.8 oz. BP: 110/70 Patient's last menstrual period was 09/28/2024. ASSESSMENT & PLAN ICD-10-CM 1. 15 weeks gestation of ([facility]) Z3A.15 POCT urinalysis dipstick manually resulted 2. Second trimester ([facility]) Z34.92 POCT urinalysis dipstick manually resulted Alpha fetoprotein, maternal Alpha fetoprotein, maternal 3. Gastroesophageal reflux disease with esophagitis, unspecified whether hemorrhage K21.00 4. Screening, , for anatomic survey ([facility]) Z36.89 US OB 14+ weeks anatomy scan US OB 14+ weeks anatomy scan 5. Exposure to STD Z20.2 CHLAMYDIA TRACHOMATIS (GENITO/STI) Neisseria gonorrhea DNA probe, direct 6. Vaginal discharge N89.8 SURESWAB(R) ADVANCED VAGINITIS PLUS, TMA 7. Well woman exam with routine gynecological exam Z01.419 Pap Smear Return OB/Annual Exam: Patient presents today for a annual exam/routine obstetrics appointment. Patient is currently 49x7gdmwtjiwt. Patient states she is doing well but [...] of: Junito Ortiz DO documented in this encounterAlvin J. Siteman Cancer CenterIissofcyam88-43-4516 History of Present illness Narrative* Saumya Simmons [...] Diagnosis Date Noted Positive urine test ([facility]) 12/03/2024 Resolved Ambulatory Problems Diagnosis Date [...] nursing note reviewed. Exam conducted with a professor in family studies present. Vitals: Estimated body mass index is 29.73 kg/m as calculated from the following: Height as of 01/23/24: 5' 8 . Weight as of this encounter: 195 lb 8 oz. BP: 110/62 Patient's last menstrual period was 09/28/2024. ASSESSMENT & PLAN ICD-10-CM 1. 11 weeks gestation of ([facility]) Z3A.11 POCT urinalysis dipstick manually resulted 2. First trimester ([facility]) Z34.91 3. Nausea and vomiting in ([facility]) O21.9 4. Gastroesophageal reflux disease with esophagitis, unspecified whether hemorrhage K21.00 pantoprazole (Protonix) 40 MG EC tablet 5. Meconium aspiration in child of prior , currently , unspecified trimester ([facility]) O09.299 New OB: Patient presents today [...] or undercooked meat, and [facility] away [facility]. Patient has been consulted regarding any further do's and don'ts of . Patient voiced understanding and all questions and concerns were answered. Orders Placed This Encounter Procedures POCT urinalysis dipstick manually resulted Follow Up: Patient is to return in 4 weeks for routine OB appointment. Documented by Saumya Simmons LPN on behalf of: Junito Ortiz DO documented in this encounterAlvin J. Siteman Cancer CenterUdkdbwlkjz26-62-1042 History of Present illness Narrative* Carissa Castro, LEADERSHIP PROGRAM INTERN - 12/05/2024 10:00 AM EDT Reason for [...] Diagnosis Date Noted Positive urine test ([facility]) 12/03/2024 Resolved Ambulatory Problems Diagnosis Date [...] dipstick manually resulted , unspecified gestational age ([facility]) - Type and screen; Future - ABO/Rh; Future - CBC and differential - Hemoglobin A1c - RPR - Rubella antibody, IgG - Hepatitis B surface antigen - Hepatitis C antibody - HIV-1 and HIV-2 antibodies - Rapid drug screen, urine; Future Encounter for supervision of normal first in first trimester ([facility]) - Rapid drug screen, urine; Future [...] or undercooked meat, and stay away [facility]. Patient has also been advised to [...] by: Carissa Castro LPN documented in this encounterAlvin J. Siteman Cancer CenterDzvhqxvtaq27-61-7877 Evaluation note* Author Jake Fitzgerald [facility] TroyAuthoredNovant Health Pender Medical Center 2023 9:29amPatient positive for intermittent nausea occurring once or twice monthly patient does note slight appetite changes however this is minimal patient did report periods of weight loss however patient has maintained her weight for many months at this point. Patient is negative for hematemesis, abdominal pain and family history of esophageal and gastric cancer. [facility] Work Phone: [phone]) 403-918603-13-2024 History of Present illness Narrative* Ty Stratton PA-C - 09/05/2023 9:30 AM EDT [facility] Office Note 09/05/2023 8:59 AM Patient info: Nathaniel Bob is a 27 y.o. female Account No.: [id number] Acct: : 1995 PCP: IVON Wadsworth Chief [...] small cyst. CT Head recently completed at [facility] (February,) - reportedly was normal [...] concussion at age 6 (-) hx of [employer] infection: (-) hx of stroke/cerebrovascular malformation: (-) [...] without aura, often with associated vestibular symptoms. Cbdp-ea-xuhtzdzz PREEZ's are often present upon waking, while the [...] Stratton PA-C 09/06/23 0832 documented in this encounterWhite HospitalModo Labs Mclaren Thumb RegionRarybd15-15-4054 Miscellaneous Notes* Telephone Encounter - Viviane Jamison [...] refill again. Please advise and contact patient [phone] * Telephone Encounter - Aimee Lombardo CMA [...] informed and voiced understanding. documented in this encounterOhioHealth Berger Hospital [facility] Tkodbc34-44-7132 Telephone encounter Note* Telephone Encounter - Viviane [...] refill again. Please advise and contact patient [phone] [facility] [employer] Sytdem38-77-1127 Telephone encounter Note* Telephone Encounter - Aimee Lombardo CMA - 07/16/2023 12:39 PM EST The patient is currently taking 60 mg 1 tab in the am of Qulipta. The patient was last seen in clinic 05/23/2023 and is scheduled to follow up 09/05/2023. [facility] CenterBountysource Aoqqel51-20-3103 Telephone encounter Note* Telephone Encounter - Ty Stratton PA-C - 07/16/2023 12:39 PM EST Take 1/2 tablet daily for 6 days, then Discontinue. - [facility] [employer] Klzfws29-59-3047 Telephone encounter Note* Telephone Encounter - Yelitza Pickens RN - 07/16/2023 12:39 PM EST Patient informed and voiced understanding. [facility] Medical CenterCytogel PharmaByuveh64-07-8685 Evaluation note* Encounter Date Diagnosis Assessment Notes [...] albuterol. Continue to monitor closely. Can take oykf-mub-sbtramw medication for symptom relief. Exercise conservative measures, [...] that were not corrected during review process. [facility] Other 12-06-2023 Evaluation note* Encounter Date Diagnosis [...] that were not corrected during review process. [facility] Other 09-11-2023 Evaluation note* Encounter Date Diagnosis [...] that were not corrected during review process. [facility] Other 08-30-2023 Evaluation note* Encounter Date Diagnosis [...] will also forward these to endocrinology through [place]. Jan,Elevated cortisol level (ICD-10 - E27.0)Extensive lab [...] will also forward these to endocrinology through [facility]. Jan,Nausea (ICD-10 - R11.0)I would like [...] and is agreeable. We will refer to [facility] neurology so the same electronic medical [...] and is agreeable. We will refer to [facility] neurology so the same electronic medical [...] that were not corrected during review process. [facility] Other 02-22-2022 Note [id number]#[id number]10-15-2021 [id number] 02-04-2020 History general Narrative - Reported* Type Description Date Medical History Anxiety Medical HistoryDepressionMedical HistorySeasonal allergiesHospitalization HistoryChildbirth02/04/2020Hospitalization KqjhihnJpnhqfagaf15/15/2021 [facility] [employer] Other Evaluation noteNo InformationNortPenn State Health [employer] Other Evaluation noteNo assessment information available [facility] Work Phone: Evaluation note* Diagnosis Onset Date Resolution Status Acid reflux acuteAnxietyacuteMigrainesacuteNauseaacute [facility] Work Phone: Evaluation note* Diagnosis Migraine without aura and without status migrainosus, not intractable documented in this encounter [facility]Evaluation [facility]* Diagnosis Migraine without aura and without status migrainosus, not intractable- Primary Vestibular migraine Pineal gland cyst Other specified endocrine disorders Hx of concussion Daytime somnolence documented in this encounter [facility]Evaluation [facility]* Diagnosis Missed menses , unspecified gestational age ([facility]) Encounter for supervision of normal first in first trimester ([facility]) Dizzy Dizziness and giddiness Lightheaded Dizziness and giddiness documented in this encounter [facility] HealthcareEvaluation note* Diagnosis 11 weeks gestation of ([facility]) First trimester ([facility]) state, incidental Nausea and vomiting in ([facility]) Unspecified vomiting of , unspecified as to episode of care Gastroesophageal reflux disease with esophagitis, unspecified whether hemorrhage Meconium aspiration in child of prior , currently , unspecified trimester ([facility]) documented in this encounter [facility] HealthcareEvaluation note* Diagnosis 15 weeks gestation of ([facility]) Second trimester ([facility]) state, incidental Gastroesophageal reflux disease with esophagitis, unspecified whether hemorrhage Screening, , for anatomic survey ([facility]) Encounter for anatomic survey Exposure to STD Vaginal discharge Leukorrhea, not specified as infective Well woman exam with routine gynecological exam Routine gynecological examination Nausea and vomiting in ([facility]) Unspecified vomiting of , unspecified as to episode of care related fatigue in second trimester ([facility]) Insomnia, unspecified type Other migraine with status migrainosus, not intractable documented in this encounter [facility] HealthcareEvaluation note* Diagnosis Nausea and vomiting in ([facility] Primary Unspecified vomiting of , unspecified as to episode of care Second trimester ([facility]) state, incidental 20 weeks gestation of ([facility]) Elevated heart rate with elevated blood pressure without diagnosis of hypertension documented in this encounter [facility] HealthcareEvaluation note* Diagnosis Second trimester ([facility]) state, incidental 24 weeks gestation of ([facility]) Diabetes mellitus screening Screening for diabetes mellitus documented in this encounter [facility]* Diagnosis Third trimester ([facility]) state, incidental 28 weeks gestation of ([facility]) size inconsistent with dates ([facility]) Racing heart beat Unspecified tachycardia documented in this encounter [facility]* Diagnosis Third trimester ([facility]) state, incidental 30 weeks gestation of ([facility]) documented in this encounter [facility] Narrative - Reported* Type Description Date Medical History Anxiety Medical HistoryDepressionMedical HistorySeasonal allergiesMedical History Elevated cortisol levelMedical HistoryElevated DHEAMedical HistoryMigraines Hospitalization HistoryChildbirth02/04/2020Hospitalization HistoryChildbirth 06/08/2021 [employer] Other InstructionsNot on filedocumented in this encounter ProMedicBountysource SystemInstructionsNot on filedocumented in this encounter ProMedicBountysource SystemInstructionsNot on filedocumented in this encounter ProMAzimo System Summary Purpose Family History No Family [...] 1 Elevated DHEA (E27.8 ) [facility] [place] Referring Provider First Name Nelida Referring Provider Last Name [facility] Referring Provider Specialty Nurse Pract itioner Referred Organization [facility] Referred Address [address], [place],[address] Referred Provider Specialty Endocrinolog y Referral Priority Routine Reason Neuro [facility]- sev eral ongoing neuro symptoms Pending CT head at [facility] Diagnosis 1 Dizziness (R42) Referral Organization [facility] [place] Referring Provider First Name Nelida Referring Provider Last Name [facility] Referring Provider Specialty Nurse Pract itioner Referred Organization [facility] Referred Address [address],[address] Referred Provider Specialty Neurology Referral Priority Routine SpecialtyDiagnoses / ProceduresReferred By ContactReferred To ContactRadiology Diagnoses Migraine without aura and without status migrainosus, not intractable Vestibular migraine Pineal gland cyst Procedures MR brain without contrast Ty Stratton PA-C [address] [place] [address] Referral IDStatusReasonStart DateExpiration DateVisits RequestedVisits [id number] Review/[id number] / ProceduresReferred By ContactReferred To ContactSleep Medicine Diagnoses Daytime somnolence Ty Stratton PA-C [address] [place] [address] Yanira Partida MD [address] [place] [address] Referral IDStatusReasonStart DateExpiration DateVisits RequestedVisits [id number] Review Specialty Services Required Chief Complaint and [...] section and content) DATE CREATED AUTHOR 11/14/2021 [facility] DATE CREATED AUTHOR AUTHOR'S ORGANIZ ATION 11/05/2022 [facility] DATE CREATED AUTHOR AUTHOR'S ORGANIZ ATION 09/06/2023 [facility] DATE CREATED AUTHOR AUTHOR'S ORGANIZ ATION 05/01/2025 [facility] DATE CREATED AUTHOR AUTHOR'S ORGANIZ ATION 05/07/2025 [facility] REASON FOR VISIT (unrecogniz ed section and content) ReasonCommentsMed RefillReasonOnset DateCommentsWEENING OFF FIFNLLX3107/16/2023 ReasonCommentsFollow-upPatient is here today for 3 month [...] 25, 2023Team MemberRelationshipSpecialtyStart DateEnd Date BonivanJeremy shermana, HOSPITAL ADMINISTRATOR-EARTH SCIENCE TECHNICIAN [address] [address] PCP - [facility]04/06/23Team MemberRelationshipSpecialtyStart Date End Date BonivanJeremy shermana, HOSPITAL ADMINISTRATOR-EARTH SCIENCE TECHNICIAN [address] [address] PCP - [facility]04/06/23Team MemberRelationshipSpecialtyStart Date End Date Bonakosua Nelida, HOSPITAL ADMINISTRATOR-EARTH SCIENCE TECHNICIAN [address] [address] [facility] - [facility] Clvnbhwd98/13/23Team MemberRelationshipSpecialtyStart Date End Date Unallocated, Meryls MD Chun [facility] [place] [address] [facility] - [facility] Mzcokrsq16/14/24 Treasure England DO [address] [place] [phone] Referring KhwssqjlvHpqkzkcxa22/14/24Team MemberRelationshipSpecialtyStart Date End Date Unallocated, Natalie Mccollum MD [facility] [place] [address] PCP - [facility]05/08/24 Treasure England DO [address] [place] [address] Referring RadsxvtckBlxxhpcgu72/14/24Team MemberRelationshipSpecialtyStart Date End Date Unallocated, Natalie Mccollum MD [address] [place] [address] PCP - [facility]05/08/24 Treasure England DO [address] [place] [phone] Referring ZmlpanwruRjbqgbkcf52/14/24Team MemberRelationshipSpecialtyStart Date End Date Unallocated, Natalie Mccollum MD [facility] [place] [address] PCP - [facility]05/08/24 Treasure England DO [address] [place] [address] Referring EqqjypgbqJlamtimnn70/14/24Team MemberRelationshipSpecialtyStart Date End Date Unallocated, Noms MD Chun [facility] Systems[facility]ev[facility] [place] [address] PCP - [facility]05/08/24 Treasure England DO [address] [place] [phone] Referring FalsnwwhsJkzvgroei47/14/24Team MemberRelationshipSpecialtyStart Date End Date Unallocated, Noms ProviderMD [facility] SystemsGen[facility] [place] [address] PCP - [facility]05/08/24 Treasure England DO [address] [place] [address] Referring QfimpwwanVvqufdnqv06/14/24Team MemberRelationshipSpecialtyStart Date End Date Unallocated, Noms MD Chun [facility] [place] [address] PCP - [facility]05/08/24 Treasure England DO [address] [phone] Referring HcddwphfgZzsbazjiw62/14/24Team MemberRelationshipSpecialtyStart Date End Date Unallocated, Meryls MD Chun [facility] [place] [address] PCP - [facility]05/08/24 Treasure England DO [address] [place] [address] Referring GbcsppktuLefxhevlk23/14/24Team MemberRelationshipSpecialtyStart Date End Date Unallocated, Meryls MD [facility]un [facility] [place] [address] PCP - [facility]05/08/24 Treasure England DO [address] [place] [address] Referring MqdtiasflGsifudfxf89/14/24Team MemberRelationshipSpecialtyStart Date End Date Unallocated, Meryls MD Chun [facility] [place] [address] [facility]05/08/24 Treasure England DO [address] [place] [address] Referring DhwqweaiaTskazlnnz62/14/24Team MemberRelationshipSpecialtyStart Date End Date Unallocated, Meryls MD Chun [facility] Systems[facility] [place] [address] [facility]05/08/24 Treasure England DO [address] [place] [address] Referring WhrfcqvdlCmmjyzgkh13/14/24 Goals (unrecognized section and content) Goals may [...] BE BASED ON THE PRIMARY CLINICAL RECORDS. [facility]. provides no warranty or guarantee of the accuracy or completeness of information in this document.
[2025-06-05 15:35] VITALS: BP 98/55; PULSE 99
--- NOTE | 2025-06-05 15:39 | PC.NURSE ---
Pt denies cxt's. Abdomen palpates soft.
[2025-06-05 15:48] VITALS: BP 129/67; PULSE 93
== END 2025-06-05 16:00 | disposition home or self-care (01) ==
LOC: US 15:04 → FBC 15:05
PROVIDERS: PCP Nurse Practitioner Family; Visit Provider Obstetrics & Gynecology
DX: O26.893 Other specified pregnancy related conditions, third trimester (principal); Z3A.35 35 weeks gestation of pregnancy
CPT/HCPCS: 76818

== ENCOUNTER 2025-06-09 19:30 | Outpatient (OUT) | payer OTHER, SELFPAY ==
--- OUTSIDE RECORDS SUMMARY | 2025-05-27 13:00 | XMS_ITS | Encounter Summary ---
Author Organization [facility] Address [address] [place] [address] Care Team Providers Care Aircraft Sales Representative Name Role Phone Unallocated, Noms Provider MD Primary Care Provi aristeo TomásTreasure DO Unavailable [phone] Reason for Visit * ReasonCommentsRoutine Visit Encounter Details DateTypeDepartmentCare Team (Latest Contact Info)Bylanrehtfl39/03/2025 1:00 PM ESTRoutine [facility] [place] [facility] [address] [place] [address] Junito Ortiz DO [address] [place], [place] [id number] 34 weeks gestation of ([facility]); Third trimester ([facility]); Yeast infection; Excessive growth affecting management of , antepartum, single or unspecified fetus ([facility]) Social History Tobacco UseTypesPacks/DayYears UsedDateSmoking Tobacco: NeverSmokeless Tobacco: NeverAlcohol UseStandard Drinks/WeekCommentsYes0 (1 standard drink = 0.6 oz pure alcohol)One drink per monthEstimated Date of DeliveryCommentsYes 6Based on last menstrual period of 09/28/2024Sex and Gender Information ValueDate RecordedSex Assigned at BirthNot on fileLegal ArcCuyeci09/15/2023 8:11 PM EDTGender IdentityNot on fileSexual OrientationNot on filedocumented as of this encounter Last Filed Vital Signs Vital SignReadingTime TakenCommentsBlood Poygtejx959/6012 1:03 PM EST Pulse--Temperature--Respiratory Rate--Oxygen Saturation--Inhaled Oxygen Concentration--Lbrbao739 kg (231 lb)05/27/2025 1:03 PM ESTHeight--Body Mass [...] Problems Diagnosis Date Noted Positive urine test ([facility]) 12/03/2024 Resolved Ambulatory Problems Diagnosis Date [...] nursing note reviewed. Exam conducted with a administrative clerk present. Vitals: Estimated body mass index is 35.12 kg/m?? as calculated from the following: Height as of 01/23/24: 5' 8 . Weight as of this encounter: 231 lb. BP: 122/60 Patient's last menstrual period was 09/28/2024. Assessment/Plan ICD-10-CM 1. 34 weeks gestation of ([facility]) Z3A.34 POCT urinalysis dipstick manually resulted 2. Third trimester ([facility]) Z34.93 POCT urinalysis dipstick manually resulted [...] Plan of Treatment DateTypeDepartmentCare Team (Latest Contact Info)Mqgygdibzpg58/17/2025 11:20 AM ESTRoutine [facility] [address] [place] [phone] Junito Ortiz DO [address] [place] [address] NameTypePriorityAssociated DiagnosesDate/TimeUS OB follow up transabdominal approachImagingRoutine Excessive growth affecting management of , antepartum, single or unspecified fetus ([facility]) 06/01/2025 8:18 AM ESTNameTypePriorityAssociated DiagnosesOrder ScheduleUS OB follow up transabdominal approachImagingRoutine Excessive growth affecting management of , antepartum, single or unspecified fetus ([facility]) Expected: 05/27/2025, Expires: 09/25/2025documented as of this encounter Procedures Procedure NamePriorityDate/TimeAssociated DiagnosisCommentsPOCT URINALYSIS YMBTWGEXSabdzoc63/03/2025 1:16 PM EST 34 weeks gestation of ([facility]) Third trimester ([facility]) documented in this encounter Results * [...] / LateralityCollection Method / VolumeCollection Time Received XmesYuxpm18/03/2025 1:16 PM EST Narrative Authorizing ProviderResult TypeResult StatusCorey Angel DOPOINT OF CARE TEST ENTER/EDIT ORDERABLESFinal Result documented in this encounter Visit Diagnoses Diagnosis 34 weeks gestation of ([facility]) Third trimester ([facility]) state, incidental Yeast infection Excessive growth affecting management of , antepartum, single or unspecified fetus ([facility]) documented in this encounter Care Teams Team MemberRelationshipSpecialtyStart DateEnd Date Unallocated, Noms Provider, [address] [place] [address] PCP - GeneralFamily Kamqudvb15/14/24 Treasure England DO [address] [place] [address] Referring RwdxoxyguKhxarmlqd30/14/24documented as of this encounter
--- OUTSIDE RECORDS SUMMARY | 2025-06-01 08:00 | XMS_ITS | Encounter Summary ---
Author Organization [facility] Address [address] [facility] [place] [address] Care Team Providers Care Heel Seat Laster Name Role Phone Unallocated, Noms Provider Primary Care Provi aristeo Treasure England DO Unavailable [phone] Encounter Details DateTypeDepartmentCare Team (Latest Contact Info)Nnswhjmvatk97/08/2025 8:00 AM ESTAncillary Procedure NOMDominguez KEARNS [address] [place] [address] Excessive growth affecting management of , antepartum, single or unspecified fetus ([facility]) Social History Tobacco UseTypesPacks/DayYears UsedDateSmoking Tobacco: NeverSmokeless Tobacco: NeverAlcohol UseStandard Drinks/WeekCommentsYes0 (1 standard drink = 0.6 oz pure alcohol)One drink per monthEstimated Date of DeliveryCommentsYes 6Based on last menstrual period of 09/28/2024Sex and Gender Information ValueDate RecordedSex Assigned at BirthNot on fileLegal PexOlsfll74/15/2023 8:11 PM EDTGender IdentityNot on fileSexual OrientationNot on filedocumented as of this encounter Plan of Treatment DateTypeDepartmentCare Team (Latest Contact Info)Tqrwdmclsjh45/17/2025 11:20 AM ESTRoutine NATALIE KEARNS [address] [place] [address] Junito Ortiz DO [address] [place] [address] NameTypePriorityAssociated DiagnosesDate/TimeUS OB follow up transabdominal approachImagingRoutine Excessive growth affecting management of , antepartum, single or unspecified fetus ([facility]) 06/01/2025 8:18 AM ESTdocumented as of this encounter Visit Diagnoses Diagnosis Excessive growth affecting management of , antepartum, single or unspecified fetus ([facility]) documented in this encounter Care Teams Team MemberRelationshipSpecialtyStart DateEnd Date Unallocated, Noms Provider, [place] [address] PCP - GeneralFamily Jkpwuzhx07/14/24 Treasure England DO [address] [place] [address] Referring AgulfvbwnMiqaaefxj46/14/24documented as of this encounter
--- OUTSIDE RECORDS SUMMARY | 2025-06-09 19:33 | XMS_ITS | Clinical Summary ---
Author Organization [facility] s tem Address [id number] [place] [address] Care Team Providers Care Early Morning Babysitter Name Role Phone Kelly Mckenzie YANELI-BANQUET STEWARD Primary Care Provider Allergies No known active [...] without aura and without status migrainosus, not rflqfogugag03/29/2023Pineal gland cyst05/23/2023Hx of dsjtzaktmu07/29/2023Vestibular ljozexkc31/27/2023Choroid plexus cyst of fetus affecting care of mother, ptadlqofce37/10/2021 Family History Medical HistoryRelationNameCommentsBreast cancerMaternal GrandmotherDiabetes Maternal [...] Frequency of Binge DrinkingNot on file12/19/2019PHQ-2AnswerDate RecordedTotal Lpgzy882/29/2023ChildcareAnswerDate JihwgerzMieisptxaLxyxshu96/24/2020Employment AnswerDate HkvacatcOsswfopzcwQyqiakd40/24/2020Hunger ScreeningAnswerDate RecordedWithin the past 12 months we worried whether our food would run out before we got money to buy more.Never True09/05/2023Within the past 12 months the food we bought just didn't last and we didn't have money to get more.Never True4Purpose - LifeAnswerDate RecordedPurpose and direction in life Ekoqetl43/11/2021CommentsNoSex and Gender InformationValueDate Recorded Sex Assigned at BirthNot on fileLegal NseUqevok75/24/2020 11:48 AM EDTGender IdentityNot on fileSexual OrientationNot on file Last Filed Vital Signs Vital SignReadingTime TakenCommentsBlood Faviveyq812/7703 9:42 AM EDT Aflyv317809/05/2023 9:42 AM EDTTemperature--Respiratory Rate--Oxygen Saturation-- Inhaled Oxygen Concentration--Qymiqp09.9 kg (202 lb 8 oz)09/05/2023 9:42 AM EDT Aibsmd317.7 cm (5' 8 )09/05/2023 9:42 AM EDTBody Mass Index30.7909/05/2023 9:42 AM EDT Plan of Treatment Health MaintenanceDue DateLast DoneCommentsDTaP,Tdap and Td Vaccines (1 - Tdap) 12/19/2014Pap Smear12/19/2016Depression Wvdfegysv70dult BMI Rvdqcoxhx21Tobacco Jvfdpwadu48Influenza Csxsdvp2602/23/2025 Medical Devices Not on file Insurance Care Teams Team MemberRelationshipSpecialtyStart DateEnd Date Kelly Mckenzie APRN-BANQUET STEWARD [address], [facility] [address] [place] [address] PCP - GeneralFamily Buvxqrjf60/13/23
--- OUTSIDE RECORDS SUMMARY | 2025-06-09 19:33 | XMS_ITS | Encounter Summary ---
Author Organization [facility] Address [address] [facility] [place] [address] Care Team Providers Care Student Life Coordinator Name Role Phone Unallocated, Noms Provider MD Primary Care Provi aristeo Treasure England DO Unavailable [phone] Reason for Visit * ReasonCommentsMed Refill Encounter Details DateTypeDepartmentCare Team (Latest Contact Info)Rukvazfoeqq09/28/2025Refill NATALIE KEARNS [address] [place] [phone] Junito Ortiz DO [address] [place], [facility]11 Nausea and vomiting in ([facility]) Social History Tobacco UseTypesPacks/DayYears UsedDateSmoking Tobacco: NeverSmokeless Tobacco: NeverAlcohol UseStandard Drinks/WeekCommentsYes0 (1 standard drink = 0.6 oz pure alcohol)One drink per monthEstimated Date of DeliveryCommentsYes 6Based on last menstrual period of 09/28/2024Sex and Gender Information ValueDate RecordedSex Assigned at BirthNot on fileLegal HysCcqroi54/15/2023 8:11 PM EDTGender IdentityNot on fileSexual OrientationNot on filedocumented as of this encounter Plan of Treatment DateTypeDepartmentCare Team (Latest Contact Info)Bcnvgvwzyfu95/17/2025 11:20 AM ESTRoutine NOMDominguez [facility] [address] [place] [address] Junito Ortiz DO [address] [address] documented as of this encounter Visit Diagnoses Diagnosis Nausea and vomiting in ([facility]) Unspecified vomiting of , unspecified as to episode of care documented in this encounter Care Teams Team MemberRelationshipSpecialtyStart DateEnd Date Unallocated, Noms MD [address]un [address] [address] PCP - GeneralFamily Mlsjhysd07/14/24 Treasure England DO [address] [place] [address] Referring FkyofxyltQluamrofj52/14/24documented as of this encounter
--- OUTSIDE RECORDS SUMMARY | 2025-06-09 19:33 | XMS_ITS | Encounter Summary ---
Author Organization [facility] Address [address] [facility] [place] [address] Care Team Providers Care Educator Senior Clinical Name Role Phone Unallocated, Noms Provider MD Primary Care Provi aristeo Ramos Englandle DO Unavailable [phone] Encounter Details DateTypeDepartmentCare Team (Latest Contact Info)Nidvktfdxlz26/03/2025linisync Result Encounter [facility] External Department Unsolicited Lora Ortiz DO [address] [place], [place] [address] Social History Tobacco UseTypesPacks/DayYears UsedDateSmoking Tobacco: NeverSmokeless Tobacco: NeverAlcohol UseStandard Drinks/WeekCommentsYes0 (1 standard drink = 0.6 oz pure alcohol)One drink per monthEstimated Date of DeliveryCommentsYes 6Based on last menstrual period of 09/28/2024Sex and Gender Information ValueDate RecordedSex Assigned at BirthNot on fileLegal KmnKmmjop99/15/2023 8:11 PM EDTGender IdentityNot on fileSexual OrientationNot on filedocumented as of this encounter Plan of Treatment DateTypeDepartmentCare Team (Latest Contact Info)Lwbklvuqxyc45/17/2025 11:20 AM ESTRoutine NATALIE [place] [facility] [address] [place] [address] Lora Ortiz DO [address] [place] [address] documented as of this encounter Procedures Procedure NamePriorityDate/TimeAssociated DiagnosisCommentsUS OB BPP W NON-BEBHWY2405/27/2025 10:21 AM EST documented in this encounter Results * US OB BPP W NON-STRESS (05/27/2025 10:21 AM EST)Anatomical Region LateralityModalityOtherSpecimen (Source)Anatomical Location / Laterality Collection Method / VolumeCollection TimeReceived Time05/27/2025 10:21 AM EST Narrative 05/27/2025 10:24 AM EST [facility] ?[address] ? [place] [address] ? Ultrasound Report ? Signed ? Patient: NATHANIEL TAYLOR ?MR#: [id number] ?? : 1995 ?Acct:[id number] ?? Age/Sex: 29 / F ?ADM Date: 05/27/25 ?? Loc: [facility] ??252-1 ? Attending Dr: Lora Ortiz D.O. ? Ordering Physician: Lora Ortiz D.O. ?? Date of Service: 05/27/25 ?? Procedure(s): US OB BPP w non-stress ?? Accession Number(s): [id number] ? cc: Kelly Mckenzie EMBEDDED SYSTEMS SOFTWARE ENGINEER; Lora Ortiz D.O. ? [facility] ? [facility]. [facility] ? [place] [address] ? Patient Name: ?? NATHANIEL TAYLOR ? MRN: [facility]:[id number] ? date: 1995 ?Sex: F ?? Assigned Patient Location: [facility] ?? Current Patient Location: [facility] ?? Accession/Order Number: [id number] ?? Exam Date: 05/27/2025 ??09:01 ?Report Date: [...] Dictation Location: RADIO-PC-02 ? Electronically authenticated by: [id number] ??Y ?? Date: 05/27/2025 ??10:21 ? Dictated By: ?Saumya Prajapati M.D. ? Signed By: ?12/03/25 1024 ? DD/ 1021 ? TD/TT: ? Wastewater Treatment Plant Attendant: Procedure Note Radiology, Radiologist, - 05/27/2025 [place] [address] Ultrasound Report Signed Patient: NATHANIEL TAYLOR AMR#: [id number] : 1995Acct:[id number] Age/Sex: 29 / FADM Date: 05/27/25 Loc: [facility] 252-[address]: Lora Ortiz D.O. Ordering Physician: Lora Ortiz D.O. Date of Service: 05/27/25 Procedure(s): US OB BPP w non-stress Accession Number(s): [id number] cc: Kelly Mckenzie EMBEDDED SYSTEMS SOFTWARE ENGINEER; Lora Ortiz D.O. The [place] [id number] Patient Name: NATHANIEL TAYLOR MRN: [id number] date: 1995 Sex: F Assigned Patient Location: [facility] Current Patient Location: [facility] Accession/Order Number: [id number] Exam Date: 05/27/2025 09:01 Report Date: 05/27/2025 [...] Prajapati M.D. 05/27/2025 10:21 AM Dictation Location: [place] [address] Electronically authenticated by: [id number] Y Date: 0:21 Dictated By: Saumya Prajapati M.D. Signed By:05/27/25 1024 DD/ 1021 TD/TT: Wastewater Treatment Plant Attendant: Authorizing ProviderResult TypeResult StatusCorey Angel DOCLINISYNC IMAGINGFinal Result documented in this encounter Visit Diagnoses Not on filedocumented in this encounter Care Teams Team MemberRelationshipSpecialtyStart DateEnd Date Unallocated, Noms Provider, [address] [place] [address] PCP - GeneralFamily Homsfrod63/14/24 Treasure England DO [address] [place] [address] Referring NtygewqyxPuykfeyyg13/14/24documented as of this encounter
--- OUTSIDE RECORDS SUMMARY | 2025-06-09 19:34 | XMS_ITS | Clinical Summary ---
Author Organization [facility] Address [address] [place] [address] Care Team Providers Care Cost Specialist Name Role Phone Unallocated, [facility] Provider MD Primary Care Provi aristeo Treasure England DO Unavailable [phone] Allergies Active AllergyReactionsCriticalityNoted DateCommentsPollen Azaekao0409/19/2023 Other Reaction(s): Unknown Reaction Medications MedicationSigDispense QuantityRefillsLast FilledStart DateEnd DateStatus magnesium 100 MG tablet 3Active Probiotic Product (PROBIOTIC ADVANCED PO) ProbioticActive pyridoxine (Vitamin B-6) 25 MG tablet Take 25 mg by mouth DailyActive Doxylamine Succinate, Sleep, (UNISOM PO) Take by mouthActive ondansetron (Zofran) 4 MG tablet Indications:Nausea and vomiting in ([facility])Take 1 tablet (4 mg) by mouth [...] tablet Indications:Nausea and vomiting in ([facility])TAKE 1 TABLET BY MOUTH IN MORNING,AT [...] tablet Indications: related fatigue in second trimester ([facility]),Insomnia, unspecified typeTake 1 tablet (10 mg) by mouth as needed at bedtime for sleep for up to 5 days 5 tablet Discontinued promethazine (Phenergan) 12.5 MG tablet Indications:Nausea and vomiting in ([facility])Take 1 tablet (12.5 mg) by mouth every 8 (eight) hours if needed for nausea or vomiting for up to 30 doses Take 1 tablet by mouth every 6 hours as needed for nausea. 30 tablet Discontinued metoclopramide (Reglan) 10 MG tablet Indications:Nausea and vomiting in ([facility])TAKE 1 TABLET BY MOUTH IN MORNING,AT [...] Active Problems ProblemNoted DateDiagnosed DatePositive urine test ([facility])12/03/2024 Estimated Date of MfjfnsdtDbevxjqwIke73/11/2026ased on last menstrual period of 09/28/2024 Encounters DateTypeDepartmentCare FqdvZaexuawnsbn73/12/2025linisync Result Encounter [facility]S External Department Unsolicited Lora Ortiz DO 06/01/2025 8:00 AM ESTAncillary Procedure [facility] [address] [place] [address] [place] [phone] Excessive growth affecting management of , antepartum, single or unspecified fetus ([facility])05/27/2025 1:00 PM ESTRoutine [facility] [place] [phone] Lora Ortiz, DO 34 weeks gestation of ([facility]); Third trimester ([facility]); Yeast infection; Excessive growth affecting management of , antepartum, single or unspecified fetus ([facility])5Clinisync Result Encounter NOMS External Department Unsolicited AngelLora, DO 5Clinisync Result Encounter NOMS External Department Unsolicited AngelLora, DO 05/22/2025Refill [facility] [address] [place] [address] Lora Ortiz, Nausea and vomiting in ([facility])5Clinisync Result Encounter NOMS External Department Unsolicited AngelLora, DO 05/13/2025 1:20 PM ESTRoutine [facility] [place] [address] Nicole Ghosh PA 32 weeks gestation of ([facility]); Third trimester ([facility]); Racing heart beat5Bamboo flowsheet [facility] [place] [phone] Nicole Ghosh PA 04/29/2025 1:30 PM ESTRoutine [facility] [place] [address] Lora Ortiz, Third trimester ([facility]); 30 weeks gestation of ([facility])04/29/2025 1:00 PM ESTAncillary Procedure [facility] [place] [address] size inconsistent with dates ([facility])04/22/2025linisync Result Encounter NOMS External Department Unsolicited Lora Ortiz, 04/22/2025linisync Result Encounter NOMS External Department Unsolicited Lora Ortiz, 04/15/2025 1:00 PM EDTRoutine [facility] [address] [place] [address] Lora Ortiz, Third trimester ([facility]); 28 weeks gestation of ([facility]); size inconsistent with dates ([facility]); Racing heart beat04/15/2025bstract [facility] [address] [place] [phone] Mable Dior MA 04/15/2025amboo flowsheet [facility] [address] [place] [phone] Lora Ortiz, 04/13/2025bstract [facility] [address] [place] [phone] Mable Dior MA 04/08/2025bstract [facility] [address] [place] [address] Marge Kirkland NP 04/01/2025Telephone [facility] [place] [facility] [address] [place] [phone] Ariadna Bowden MA 04/01/2025linisync Result Encounter NOMS External Department Unsolicited Marge Kirkland, ZAC 03/21/2025Refill [facility] [address] [place] [phone] Lora Ortiz, Nausea and vomiting in ([facility])03/18/2025 2:20 PM EDTRoutine [facility] [place] [facility] [address] [place] [address] Lora Ortiz, Second trimester ([facility]); 24 weeks gestation of ([facility]); Diabetes mellitus /24/2025 2:00 PM EDTAncillary Procedure [facility] [address] [place] [address] Encounter for follow-up ultrasound of anatomy ([facility])from Last 3 Months Family History Medical [...] ValueDate RecordedSex Assigned at BirthNot on fileLegal NxfWynfcw64/15/2023 8:11 PM EDTGender IdentityNot on fileSexual OrientationNot on file Last Filed Vital Signs Vital SignReadingTime TakenCommentsBlood Rsqtzykr653/6005/27/2025 1:03 PM EST Pulse--Temperature--Respiratory Rate--Oxygen Saturation--Inhaled Oxygen Concentration--Aifnpd519 kg (231 lb)05/27/2025 1:03 PM JUUGazkie626.7 cm (5' 8 ) 01/23/2024 1:31 PM EDTBody Mass Index35.1207 1:31 PM EDT Plan of Treatment DateTypeDepartmentCare Team (Latest Contact Info)Nckmgbuldgh79/17/2025 11:20 AM ESTRoutine [facility] [address] [place] [address] Angel, Lora, DO [address] [place] [address] Health MaintenanceDue DateLast DoneCommentsCOVID-19 Vaccine (2024- season) 2025Influenza Vaccine (#1)2025Pneumococcal Vaccine: Pediatrics (0 to 5 Years) and At-Risk Patients (6 to 64 Years)Aged OutNo longer eligible based on patient's age to complete this topic Procedures Procedure NamePriorityDate/TimeAssociated DiagnosisCommentsUS OB BPP W NON-ITHOQP6906/05/2025 4:51 PM EST POCT URINALYSIS RRHMECOKYmifdyn64/03/2025 1:16 PM EST 34 weeks gestation of ([facility]) Third trimester ([facility]) US OB BPP W NON-XWQWIH2305/27/2025 10:21 AM EST US OB BPP W NON-NTCFWD5605/22/2025 12:44 PM EST US OB BPP W NON-IPYGUW2805/15/2025 3:36 PM EST POCT URINALYSIS RJYNGNVWByghvja41/19/2025 1:32 PM EST 32 weeks gestation of ([facility]) Third trimester ([facility]) POCT URINALYSIS WDYVHLXBPplipoh08/05/2025 1:42 PM EST 30 weeks gestation of ([facility]) US OB FOLLOW UP TRANSABDOMINAL QBZNONYRQhpdgwd34/05/2025 1:17 PM EST size inconsistent with dates ([facility]) CA ECHO DOPPLER LDKXIJAS51/29/2025 6:12 PM EDT ECG 12-LEAD04/22/2025 8:28 AM EDT POCT URINALYSIS OKAGODZUJmcamwn21/22/2025 1:16 PM EDT 28 weeks gestation of ([facility]) ALL CBC WITH AUTO IJHHJeqbhzz19/08/2025 9:19 AM EDT GLUCOSE 1 EVTMHihaift25/08/2025 9:19 AM EDT POCT URINALYSIS PEECPRNOFqsleqn89/24/2025 2:39 PM EDT Second trimester ([facility]) US OB LIMITED 1+ XBMVZHWSchwbjp03/24/2025 2:17 PM EDT Encounter for follow-up ultrasound of anatomy ([facility]) from Last 3 Months Results * US OB BPP W NON-STRESS (06/05/2025 4:51 PM EST) Only the most recent of4 resultswithin the time period is included. Anatomical RegionLateralityModalityOtherSpecimen (Source)Anatomical Location / LateralityCollection Method / VolumeCollection TimeReceived Time06/05/2025 4:51 PM EST Narrative 06/05/2025 4:54 PM EST [facility] ?[address] ? [place] [address] ? Ultrasound Report ? Signed ? Patient: NATHANIEL TAYLOR ?MR#: [id number] ?? : 1995 ?Acct:[id number] ?? Age/Sex: 29 / F ?ADM Date: 06/05/25 ?? Loc: US ? Attending Dr: Lora Ortiz D.O. ? Ordering Physician: Lora Ortiz D.O. ?? Date of Service: 06/05/25 ?? Procedure(s): US OB BPP w non-stress ?? Accession Number(s): [id number] ? cc: Kelly Mckenzie FULL STACK SOFTWARE ENGINEER; Lora OrtizO. ? [facility] ? [address] ? [place] [address] ? Patient Name: ?? NATHANIEL TAYLOR ? MRN: [facility]:[id number] ? date: 1995 ?Sex: F ?? Assigned Patient Location: [facility] ?? Current Patient Location: ? Accession/Order Number: [id number] ?? Exam Date: 06/05/2025 ??15:11 ?Report Date: 06/05/2025 ??16:51 ? At the request of: ?? LORA ??ANGEL ??DO ? Procedure: ??US OB BPP w non-stress ? US OB BPP w non-stress ??06/05/2025 3:32 PM ? SIGNS AND SYMPTOMS: ?? 07/05/2025 ?? THIRD TRIMESTER Z34.93 ? PROTOCOL: Transabdominal sonographic imaging of the gravid uterus ? COMPARISON: None ? FINDINGS: ? Estimated age: 35 weeks and 5 days ? heart rate: 165 bpm. ? Amniotic fluid index: 14.33 cm with the deepest vertical pocket measuring 5.5 ?? cm. ? Biophysical profile: ? breathing movements: 2/2 ? Gross body movements: 2/2 ? tone: 2/3 ? Amniotic fluid volume: 2/2 ? US/US OB BPP w non-stress ?? IMPRESSION: ? Biophysical profile score: 8/8 ? Impression dictated by: Mateus Momin M.D. ??06/05/2025 4:51 PM ? Dictation Location: [facility]-- ? Electronically authenticated by: [id number] ??Y ?? Date: 06/05/2025 ??16:51 ? Dictated By: ?Mateus Momin M.D. ? Signed By: ?06/05/25 1654 ? DD/ ? TD/TT: ? Linseed Oil Temperer: Procedure Note Radiology, Radiologist, MD - 06/05/[address] [address] Ultrasound Report Signed Patient: NATHANIEL TAYLOR [facility]#: [id number] : 1995Acct:[id number] Age/Sex: 29 / FADM Date: 06/05/25 Loc: US Attending Dr: Lora Ortiz D.O. Ordering Physician: Lora Ortiz D.O. Date of Service: 06/05/25 Procedure(s): US OB BPP w non-stress Accession Number(s): [id number] cc: Kelly Mckenzie FULL STACK SOFTWARE ENGINEER; Lora Ortiz D.O. [place] [address] Patient Name: NATHANIEL TAYLOR MRN: [facility]:[id number] date: 1995 Sex: F Assigned Patient Location: [facility] Current Patient Location: Accession/Order Number: [id number] Exam Date: 06/05/2025 15:11 Report Date: 06/05/2025 16:51 At the request of: LORA ORTIZ DO Procedure: US OB BPP w non-stress US OB BPP w non-stress 06/05/2025 3:32 PM SIGNS AND SYMPTOMS: 07/05/2025 THIRD TRIMESTER Z34.93 PROTOCOL: Transabdominal sonographic imaging of the gravid uterus COMPARISON: None FINDINGS: Estimated age: 35 weeks and 5 days heart rate: 165 bpm. Amniotic fluid index: 14.33 cm with the deepest vertical pocket measuring5.5 cm. Biophysical profile: breathing movements: 2/2 Gross body movements: 2/2 tone: 2/3 Amniotic fluid volume: 2/2 US/US OB BPP w non-stress IMPRESSION: Biophysical profile score: 8/8 Impression dictated by: Mateus Momin M.D. 06/05/2025 4:51 PM Dictation Location: [place] [address] Electronically authenticated by: [id number] Y Date: 6:51 Dictated By: Mateus Momin M.D. Signed By:06/05/251653 DD/ 50 TD/TT: Linseed [employer] Temperer: Authorizing ProviderResult TypeResult StatusCorey Angel DOCLINISYNC IMAGINGFinal [...] / Laterality Collection Method / VolumeCollection TimeReceived ZghqYtujq67/03/2025 1:16 PM EST Narrative Authorizing ProviderResult TypeResult [...] 04/22/2025 6:13 PM EDT [facility] ?[address] ? [place] [address] ? Cardiology Report ? Signed ? Patient: NATHANIEL TAYLOR ?MR#: [id number] ?? : 1995 ?Acct:[id number] ?? Age/Sex: 29 / F ?ADM Date: 04/22/25 ?? Loc: CARD ? Attending Dr: Lora Ortiz D.O. ? Ordering Physician: Lora Ortiz D.O. ?? Date of Service: 04/22/25 ?? Procedure(s): CA echo doppler complete ?? Accession Number(s): [id number] ? cc: Kelly Mckenzie FULL STACK SOFTWARE ENGINEER; Lora Ortiz D.O. ? Patient Name: ? NATHANIEL TAYLOR ? MR#: [id number] ? : 1995 ? Exam Date: 04/22/2025 [...] ? 2.50 cm2, 2.50 cm2 ?? Deceleration [place]: ? Pressure Half-Time: ? Peak Velocity(Antegrade Flow): [...] 1813 ? DD/ 1812 ? TD/TT: ? Linseed Oil Temperer: Procedure Note Radiology, Radiologist, MD - 04/22/2025 [place] [address] Cardiology Report Signed Patient: NATHANIEL TAYLOR [facility]#: [id number] : 1995Acct:[id number] Age/Sex: Date: 04/22/25 Loc: CARD Attending Dr: Lora Ortiz D.O. Ordering Physician: Lora Ortiz D.O. Date of Service: 04/22/25 Procedure(s): CA echo doppler complete Accession Number(s): [id number] cc: Kelly Mckenzie FULL STACK SOFTWARE ENGINEER; Lora Ortiz D.O. Patient Name: NATHANIEL TAYLOR MR#: [id number] : 1995 Exam Date: 04/22/2025 Ordering Doctor: [...] Area (VTI): 2.50 cm2, 2.50 cm2 Deceleration [place]: Pressure Half-Time: Peak Velocity(Antegrade Flow): 1.55 m/s [...] Lopez M.D. Signed By:04/22/251812 DD/ 11 TD/TT: Linseed Oil Temperer: Authorizing ProviderResult TypeResult StatusCorey Angel DOCLINISYNC IMAGINGFinal Result * ECG 12-LEAD (04/22/2025 8:28 AM EDT)Anatomical RegionLateralityModalityOther Specimen (Source)Anatomical Location / LateralityCollection Method / Volume Collection TimeReceived Time04/22/2025 8:28 AM EDT Narrative 04/22/2025 6:39 PM EDT [facility] ?[address] ? [place] [address] ? Electrocardiograph Report ? Signed ? Patient: NATHANIEL TAYLOR ?MR#: [id number] ?? : 1995 ?Acct:[id number] ?? Age/Sex: 29 / F ?ADM Date: 04/22/25 ?? Loc: CARD ? Attending Dr: Lora Ortiz D.O. ? Ordering Physician: Lora Ortiz D.O. ?? Date of Service: 04/22/25 ?? Procedure(s): ECG 12 lead ?? Accession Number(s): [id number] ? cc: ?[facility] ? Test Date: ?2025-04-22 ?? Pat Name: ? NATHANIEL TAYLOR ?Department: ? Room: ? - ?? Gender: ? Female ? Branch Maker: ? : ?1995 ? Requested By: LORA ORTIZ ?? Order Number: [id number] ?Reading MD: ?? SLY KAISER ? Measurements ?? Intervals ?Parks ? Rate: ? 84 ? P: ?22 ?? CT: ? 139 ?QRS: ?88 ?? QRSD: ? 94 ? T: ?54 ?? QT: ? 361 ? QTc: ?429 ? Interpretive Statements ?? SINUS RHYTHM ?? No previous ECG available for comparison ?? Electronically Signed On 04-22-2025 18:39:57 EDT by SLY HERRERA ? Dictated By: ?Sly Herrera M.D. ? Signed By: ?10/29/25 1839 ?10/29/25 1839 ? DD/ 7 ? TD/TT: ? Linseed Oil Temperer: Procedure Note Radiology, Radiologist, MD - 04/22/2025 [place] [address] Electrocardiograph Report Signed Patient: NATHANIEL TAYLOR [facility]#: [id number] : 1995Acct:[id number] Age/Sex: Date: 04/22/25 Loc: CARD Attending Dr: Lora Ortiz D.O. Ordering Physician: Lora Ortiz D.O. Date of Service: 04/22/25 Procedure(s): ECG 12 lead Accession Number(s): [id number] cc: [facility] Test Date: 2025-04-22 Pat Name: NATHANIEL TAYLOR Department: Room: - Gender: Female Branch Maker: : 1995 Requested By: LORA ORTIZ Order Number: [id number] Reading MD: SLY HERRERA Measurements Intervals Parks Rate: 84 P: 22 CT: 139 QRS: 88 QRSD: 94 T: 54 QT: 361 QTc: 429 Interpretive Statements SINUS RHYTHM No previous ECG available for comparison Electronically Signed On 04-22-2025 18:39:57 EDT by SLY HERRERA Dictated By: Sly Herrera M.D. Signed By:04/22/25183804/22/251838 DD/ 7 TD/TT: Linseed Oil Temperer: Authorizing ProviderResult TypeResult StatusCorejordyn Ortiz DOCLINISYNC IMAGINGFinal Result * GLUCOSE 1 HOUR (04/01/2025 9:19 AM EDT)ComponentValueRef RangeTest Method Analysis TimePerformed AtPathologist SignatureGLUCOSE 1 IVRY357<130 mg/dLTBH Specimen (Source)Anatomical Location / LateralityCollection Method / Volume Collection TimeReceived Time04/01/2025 9:19 AM EDT1 9:27 AM EDT Narrative CLINISYNC - 04/01/2025 10:15 AM EDT Authorizing ProviderResult TypeResult StatusMarge Kirkland LAB BLOOD ORDERABLESFinal ResultPerforming OrganizationAddressCity/State/ZIP CodePhone Number CLINSUZANNE [facility] * (ABNORMAL) ALL CBC WITH AUTO DIFF (04/01/2025 9:19 AM EDT)ComponentValueRef RangeTest MethodAnalysis TimePerformed AtPathologist SignatureTBH WBC11.8(H) 4.0 - 11.0 10 3/uLTBHTBH RBC3.81(L)4.20 - 5.40 10 6/uLTBHTBH HGB10.9(L)12.0 - 16.0 g/dLTBHTBH HCT33.8(L)36.0 - 48.0 %TBHTBH MCV88.781.0 - 99.0 fLTBHTBH MCH 28.626.7 - 34.0 pgTBHTBH MCHC32.229.9 - 35.2 g/dLTBHTBH RDW12.611.0 - 15.0 % TBHTBH UKA079056 - 450 10 3/uLTBHTBH MPV11.09.5 - 13.5 [...] StatusMarge Kirkland NPCLINISYNCFinal ResultPerforming OrganizationAddressCity/State/ZIP CodePhone Number CLINSUZANNE TB * US OB limited 1+ fetuses (03/18/2025 [...] Date Unallocated, [facility] Provider, [address] [place] [address] PCP - GeneralFamily Qgelqjvr78/14/24 Treasure England DO [address] [place] [address] Referring EcqlhpbooZuwkmzwfb58/14/24
--- OUTSIDE RECORDS SUMMARY | 2025-06-09 19:34 | XMS_ITS | Encounter Summary ---
Author Organization [facility] Address [address] [facility] [[email or web address]] [place] [address] Care Team Providers Care Gravel Roofer Name Role Phone Unallocated, [facility] Provider MD Primary Care Provi aristeo TomásTreasure DO Unavailable [phone] Encounter Details DateTypeDepartmentCare Team (Latest Contact Info)Ujjedmblivq74/12/2025linisync Result Encounter [facility]OMS External Department Unsolicited Lora Ortiz DO [address], [place] [address] Social History Tobacco UseTypesPacks/DayYears UsedDateSmoking Tobacco: NeverSmokeless Tobacco: NeverAlcohol UseStandard Drinks/WeekCommentsYes0 (1 standard drink = 0.6 oz pure alcohol)One drink per monthEstimated Date of DeliveryCommentsYes 6Based on last menstrual period of 09/28/2024Sex and Gender Information ValueDate RecordedSex Assigned at BirthNot on fileLegal PtuRrrpib97/15/2023 8:11 PM EDTGender IdentityNot on fileSexual OrientationNot on filedocumented as of this encounter Plan of Treatment DateTypeDepartmentCare Team (Latest Contact Info)Vatohezdvux59/17/2025 11:20 AM ESTRoutine [facility] [address] [place] [address] Lora Ortiz DO [address] [place] [address] documented as of this encounter Procedures Procedure NamePriorityDate/TimeAssociated DiagnosisCommentsUS OB BPP W NON-OQJPUP2806/05/2025 4:51 PM EST documented in this encounter Results * US OB BPP W NON-STRESS (06/05/2025 4:51 PM EST)Anatomical Region LateralityModalityOtherSpecimen (Source)Anatomical Location / Laterality Collection Method / VolumeCollection TimeReceived Time06/05/2025 4:51 PM EST Narrative 06/05/2025 4:54 PM EST [facility] ?[address] ? [place] [address] ? Ultrasound Report ? Signed ? Patient: NATHANIEL TAYLOR ?MR#: [id number] ?? : 1995 ?Acct:[id number] ?? Age/Sex: 29 / F ?ADM Date: 06/05/25 ?? Loc: US ? Attending Dr: Lora Ortiz D.O. ? Ordering Physician: Lora Ortiz D.O. ?? Date of Service: 06/05/25 ?? Procedure(s): US OB BPP w non-stress ?? Accession Number(s): [id number] ? cc: Kelly Mckenzie CERTIFIED CODING SPECIALIST; Lora Ortiz D.O. ? [facility] ? [address] [facility] ? [place] [address] ? Patient Name: ?? NATHANIEL TAYLOR ? MRN: [facility]:[id number] ? date: 1995 ?Sex: F ?? Assigned Patient Location: FBC ?? Current Patient Location: ? Accession/Order Number: [id number] ?? Exam Date: 06/05/2025 ??15:11 ?Report Date: [...] M.D. ??06/05/2025 4:51 PM ? Dictation Location: [facility]-- ? Electronically authenticated by: [id number] ??Y ?? Date: 06/05/2025 ??16:51 ? Dictated By: ?Mateus Momin M.D. ? Signed By: ?06/05/25 1654 ? DD/ 1651 ? TD/TT: ? Community Health Counselor: Procedure Note Radiology, Radiologist, MD - 06/05/2025 [place] [address] Ultrasound Report Signed Patient: NATHANIEL TAYLOR [facility]#: [id number] : 1995Acct:[id number] Age/Sex: 29 FADM Date: 06/05/25 Loc: US Attending Dr: Lora Ortiz D.O. Ordering Physician: Lora Ortiz D.O. Date of Service: 06/05/25 Procedure(s): US OB BPP w non-stress Accession Number(s): [id number] cc: Kelly Mckenzie CERTIFIED CODING SPECIALIST; Lora Ortiz D.O. The [address] [address] Patient Name: NATHANIEL TAYLOR MRN: [id number] date: 1995 Sex: F Assigned Patient Location: [facility] Current Patient Location: Accession/Order Number: [id number] Exam Date: 06/05/2025 15:11 Report Date: 06/05/2025 [...] Momin M.D. 06/05/2025 4:51 PM Dictation Location: [place] [address] Electronically authenticated by: [id number] Y Date: 6:51 Dictated By: Maetus Momin M.D. Signed By:06/05/251653 DD/ 50 TD/TT: Community Health Counselor: Authorizing ProviderResult TypeResult StatusCorey Angel DOCLINISYNC IMAGINGFinal Result documented in this encounter Visit Diagnoses Not on filedocumented in this encounter Care Teams Team MemberRelationshipSpecialtyStart DateEnd Date Unallocated, [facility] Provider, [address] [place] [address] PCP - GeneralFamily Rdrqnqzv06/14/24 Treasure England DO [address] [place] [address] Referring KkpyaywsfGfaywuqas21/14/24documented as of this encounter
[2025-06-09 19:46] VITALS: BP 124/71; PULSE 86
== END 2025-06-09 20:15 | disposition home or self-care (01) ==
LOC: FBCO 19:30 → FBC 19:33
PROVIDERS: PCP Nurse Practitioner Family; Visit Provider Obstetrics & Gynecology
DX: O26.893 Other specified pregnancy related conditions, third trimester (principal); Z3A.36 36 weeks gestation of pregnancy
CPT/HCPCS: 59025

== ENCOUNTER 2025-06-10 21:15 | Outpatient (REF) | payer OTHER, SELFPAY ==
--- OUTSIDE RECORDS SUMMARY | 2025-05-27 13:00 | XMS_ITS | Encounter Summary ---
Author Organization [facility] Address [address] [facility] [place] [address] Care Team Providers Care Superintendent Construction Name Role Phone Unallocated, Noms Provider MD Primary Care Provi aristeo TomásTreasure DO Unavailable [phone] Reason for Visit * ReasonCommentsRoutine Visit Encounter Details DateTypeDepartmentCare Team (Latest Contact Info)Exammkjwrei12/03/2025 1:00 PM ESTRoutine NATALIE [place] OBGYN [address] [facility] [place] [address] Junito Ortiz DO [address] [facility] [address] [place], [place] [id number] 34 weeks gestation of ([facility]); Third trimester ([facility]); Yeast infection; Excessive growth affecting management of , antepartum, single or unspecified fetus ([facility]) Social History Tobacco UseTypesPacks/DayYears UsedDateSmoking Tobacco: NeverSmokeless Tobacco: NeverAlcohol UseStandard Drinks/WeekCommentsYes0 (1 standard drink = 0.6 oz pure alcohol)One drink per monthEstimated Date of DeliveryCommentsYes 6Based on last menstrual period of 09/28/2024Sex and Gender Information ValueDate RecordedSex Assigned at BirthNot on fileLegal RvbRtcmqc30/15/2023 8:11 PM EDTGender IdentityNot on fileSexual OrientationNot on filedocumented as of this encounter Last Filed Vital Signs Vital SignReadingTime TakenCommentsBlood Wwejyfho009/6012 1:03 PM EST Pulse--Temperature--Respiratory Rate--Oxygen Saturation--Inhaled Oxygen Concentration--Zfjmfw419 kg (231 lb)05/27/2025 1:03 PM ESTHeight--Body Mass [...] Problems Diagnosis Date Noted Positive urine test ([facility]) 12/03/2024 Resolved Ambulatory Problems Diagnosis Date [...] nursing note reviewed. Exam conducted with a it lead present. Vitals: Estimated body mass index is 35.12 kg/m?? as calculated from the following: Height as of 01/23/24: 5' 8 . Weight as of this encounter: 231 lb. BP: 122/60 Patient's last menstrual period was 09/28/2024. Assessment/Plan ICD-10-CM 1. 34 weeks gestation of ([facility]) Z3A.34 POCT urinalysis dipstick manually resulted 2. Third trimester ([facility]) Z34.93 POCT urinalysis dipstick manually resulted Assessment/Plan [...] documented in this encounter Plan of Treatment NameTypePriorityAssociated DiagnosesDate/TimeUS OB follow up transabdominal approachImagingRoutine Excessive growth affecting management of , antepartum, single or unspecified fetus ([facility]) 06/01/2025 8:18 AM ESTNameTypePriorityAssociated DiagnosesOrder ScheduleUS OB follow up transabdominal approachImagingRoutine Excessive growth affecting management of , antepartum, single or unspecified fetus ([facility]) Expected: 05/27/2025, Expires: 09/25/2025documented as of this encounter Procedures Procedure NamePriorityDate/TimeAssociated DiagnosisCommentsPOCT URINALYSIS VURVVSXWLyuflzn54/03/2025 1:16 PM EST 34 weeks gestation of ([facility]) Third trimester ([facility]) documented in this encounter Results * (ABNORMAL) [...] / LateralityCollection Method / VolumeCollection Time Received CvkcOfccn62/03/2025 1:16 PM EST Narrative Authorizing ProviderResult TypeResult StatusCorey Anegl DOPOINT OF CARE TEST ENTER/EDIT ORDERABLESFinal Result documented in this encounter Visit Diagnoses Diagnosis 34 weeks gestation of ([facility]) Third trimester ([facility]) state, incidental Yeast infection Excessive growth affecting management of , antepartum, single or unspecified fetus ([facility]) documented in this encounter Care Teams Team MemberRelationshipSpecialtyStart DateEnd Date Unallocated, Noms Chun, [address] [place] [address] PCP - GeneralFamily Supmrfgs30/14/24 Treasure England DO [address] [place] [address] Referring XoareapreIjjeucxet67/14/24documented as of this encounter
--- OUTSIDE RECORDS SUMMARY | 2025-06-01 08:00 | XMS_ITS | Encounter Summary ---
Author Organization [facility] Address [address] [facility] [place] [address] Care Team Providers Care Oil Operator Name Role Phone Unallocated, [facility] Provider Primary Care Provi aristeo Tomás Treasure DO Unavailable [phone] Encounter Details DateTypeDepartmentCare Team (Latest Contact Info)Rdxrhgqttsf67/08/2025 8:00 AM ESTAncillary Procedure [facility] [address] [place] [address] [place] [address] Excessive growth affecting management of , antepartum, single or unspecified fetus ([facility]) Social History Tobacco UseTypesPacks/DayYears UsedDateSmoking Tobacco: NeverSmokeless Tobacco: NeverAlcohol UseStandard Drinks/WeekCommentsYes0 (1 standard drink = 0.6 oz pure alcohol)One drink per monthEstimated Date of DeliveryCommentsYes 6Based on last menstrual period of 09/28/2024Sex and Gender Information ValueDate RecordedSex Assigned at BirthNot on fileLegal QmyKhmgtm08/15/2023 8:11 PM EDTGender IdentityNot on fileSexual OrientationNot on filedocumented as of this encounter Plan of Treatment NameTypePriorityAssociated DiagnosesDate/TimeUS OB follow up transabdominal approachImagingRoutine Excessive growth affecting management of , antepartum, single or unspecified fetus ([facility]) 06/01/2025 8:18 AM ESTdocumented as of this encounter Visit Diagnoses Diagnosis Excessive growth affecting management of , antepartum, single or unspecified fetus ([facility]) documented in this encounter Care Teams Team MemberRelationshipSpecialtyStart DateEnd Date Unallocated, [facility] Provider, [address] [place] [address] PCP - GeneralFamily Rdorbuzr62/14/24 Treasure England DO [address] [place] [address] Referring GgzhgjxwxHkjxnpyxx04/14/24documented as of this encounter
--- OUTSIDE RECORDS SUMMARY | 2025-06-10 11:20 | XMS_ITS | Encounter Summary ---
Author Organization [facility] Address [address] [facility] [place] [address] Care Team Providers Care Aerospace Assembler Name Role Phone Unallocated, Noms Provider MD Primary Care Provi aristeo TomásTreasure leach DO Unavailable [phone] Reason for Visit * ReasonCommentsRoutine Visit Encounter Details DateTypeDepartmentCare Team (Latest Contact Info)Ztqmwvtultx48/17/2025 11:20 AM ESTRoutine NATALIE [place] OBGYN [address] [place] [address] Junito Ortiz DO [address] [place], [place] [address] Third trimester ([facility]); 36 weeks gestation of ([facility]) Social History Tobacco UseTypesPacks/DayYears UsedDateSmoking Tobacco: NeverSmokeless Tobacco: NeverAlcohol UseStandard Drinks/WeekCommentsYes0 (1 standard drink = 0.6 oz pure alcohol)One drink per monthEstimated Date of DeliveryCommentsYes 6Based on last menstrual period of 09/28/2024Sex and Gender Information ValueDate RecordedSex Assigned at BirthNot on fileLegal EeoJaflvi11/15/2023 8:11 PM EDTGender IdentityNot on fileSexual OrientationNot on filedocumented as of this encounter Last Filed Vital Signs Vital SignReadingTime TakenCommentsBlood Gkjrwmwf818/74 11:51 AM EST Pulse--Temperature--Respiratory Rate--Oxygen Saturation--Inhaled Oxygen Concentration--Kqtevo026 kg (230 lb)06/10/2025 11:51 AM ESTHeight--Body Mass [...] Problems Diagnosis Date Noted Positive urine test ([facility]) 12/03/2024 Resolved Ambulatory Problems Diagnosis Date [...] nursing note reviewed. Exam conducted with a physical science technician present. Vitals: Estimated body mass index is 34.97 kg/m?? as calculated from the following: Height as of 01/23/24: 5' 8 . Weight as of this encounter: 230 lb. BP: 124/74 Patient's last menstrual period was 09/28/2024. Assessment/Plan ICD-10-CM 1. Third trimester ([facility]) Z34.93 POCT urinalysis dipstick manually resulted CULTURE, GROUP B STREP WITH SUSCEPTIBLITY CULTURE, GROUP B STREP WITH SUSCEPTIBLITY 2. 36 weeks gestation of ([facility]) Z3A.36 Assessment/Plan Patient is doing well [...] GROUP B STREP WITH SUSCEPTIBLITYLabRoutine Third trimester ([facility]) Expected: 06/10/2025, Expires: 06/10/2026documented as of this encounter Procedures Procedure NamePriorityDate/TimeAssociated DiagnosisCommentsPOCT URINALYSIS FFIBZJSGFiydchh20/17/2025 11:59 AM EST Third trimester ([facility]) documented in this encounter Results * (ABNORMAL) [...] Visit Diagnoses Diagnosis Third trimester ([facility]) state, incidental 36 weeks gestation of ([facility]) documented in this encounter Care Teams Team MemberRelationshipSpecialtyStart DateEnd Date Unallocated, Noms Provider, [address] [place] [address] PCP - GeneralFamily Fllwghqy06/14/24 Treasure England DO [address] [place] [address] Referring KieiqhtvpHvnvzbatd81/14/24documented as of this encounter
--- OUTSIDE RECORDS SUMMARY | 2025-06-10 21:20 | XMS_ITS | Clinical Summary ---
Author Organization [facility] Address [facility] [place] [address] Care Team Providers Care Eap Consultant Name Role Phone Kelly Mckenzie YANELI-ARMORED CAR GUARD AND DRIVER Primary Care Provider Allergies No known active [...] without aura and without status migrainosus, not oxfodkzvqoj98/29/2023Pineal gland cyst05/23/2023Hx of vpeyulgevi76/29/2023Vestibular emwoxcpm74/27/2023Choroid plexus cyst of fetus affecting care of mother, hsnfjowgud91/10/2021 Family History Medical HistoryRelationNameCommentsBreast cancerMaternal GrandmotherDiabetes Maternal [...] Frequency of Binge DrinkingNot on file12/19/2019PHQ-2AnswerDate RecordedTotal Tfaim812/29/2023ChildcareAnswerDate XpsdlleeQfduirvepWxhpcbg76/24/2020Employment AnswerDate GbjpsovlHylsjmixpoZspahma06/24/2020Hunger ScreeningAnswerDate RecordedWithin the past 12 months we worried whether our food would run out before we got money to buy more.Never True09/05/2023Within the past 12 months the food we bought just didn't last and we didn't have money to get more.Never True4Purpose - LifeAnswerDate RecordedPurpose and direction in life Fdpzyii64/11/2021CommentsNoSex and Gender InformationValueDate Recorded Sex Assigned at BirthNot on fileLegal JaqFflvoh46/24/2020 11:48 AM EDTGender IdentityNot on fileSexual OrientationNot on file Last Filed Vital Signs Vital SignReadingTime TakenCommentsBlood Taycxnrd241/7703 9:42 AM EDT Ycpee449209/05/2023 9:42 AM EDTTemperature--Respiratory Rate--Oxygen Saturation-- Inhaled Oxygen Concentration--Hkhbds17.9 kg (202 lb 8 oz)09/05/2023 9:42 AM EDT Rtxiim449.7 cm (5' 8 )09/05/2023 9:42 AM EDTBody Mass Index30.7909/05/2023 9:42 AM EDT Plan of Treatment Health MaintenanceDue DateLast DoneCommentsDTaP,Tdap and Td Vaccines (1 - Tdap) 12/19/2014Pap Smear12/19/2016Depression Spwgcunsv93dult BMI Vwculojjc23Tobacco Moicbrncs74Influenza Ovhfeas5702/23/2025 Medical Devices Not on file Insurance Care Teams Team MemberRelationshipSpecialtyStart DateEnd Date Kelly Mckenzie APRN-ARMORED CAR GUARD AND DRIVER [address] [facility] [address] [place] [address] PCP - GeneralFamily Wpwcvbhq86/13/23
--- OUTSIDE RECORDS SUMMARY | 2025-06-10 21:20 | XMS_ITS | Encounter Summary ---
Author Organization [facility] Address [address] [facility] [place] [address] Care Team Providers Care Blasting Contract Miner Name Role Phone Unallocated, Nomneena Provider Primary Care Provi aristeo Treasure England DO Unavailable [phone] Encounter Details DateTypeDepartmentCare Team (Latest Contact Info)Ubfnednixtw52/17/2025Bamboo flowsheet NATALIE [place] OBGYN [address] [place] [address] Junito Ortiz DO [address] [place], [facility] Social History Tobacco UseTypesPacks/DayYears UsedDateSmoking Tobacco: NeverSmokeless Tobacco: NeverAlcohol UseStandard Drinks/WeekCommentsYes0 (1 standard drink = 0.6 oz pure alcohol)One drink per monthEstimated Date of DeliveryCommentsYes 6Based on last menstrual period of 09/28/2024Sex and Gender Information ValueDate RecordedSex Assigned at BirthNot on fileLegal DghIlioxy43/15/2023 8:11 PM EDTGender IdentityNot on fileSexual OrientationNot on filedocumented as of this encounter Plan of Treatment Not on file documented as of this encounter Visit Diagnoses Not on filedocumented in this encounter Care Teams Team MemberRelationshipSpecialtyStart DateEnd Date Unallocated, Noms Provider, [address] [place] [address] PCP - GeneralFamily Hnqejuzs60/14/24 Treasure England DO [address] [place] [address] Referring TrvrnqnivIklkhpbnw42/14/24documented as of this encounter
--- OUTSIDE RECORDS SUMMARY | 2025-06-10 21:20 | XMS_ITS | Encounter Summary ---
Author Organization [facility] Address [address] [facility] [place] [address] Care Team Providers Care Pastor Name Role Phone Unallocated, Noms Provider Primary Care Provi aristeo Treasure England DO Unavailable [phone] Encounter Details DateTypeDepartmentCare Team (Latest Contact Info)Inwhqwkfazz90/03/2025Clinisync Result Encounter [facility] External Department Unsolicited Lora Ortiz, DO [address] [place] [address] Social History Tobacco UseTypesPacks/DayYears UsedDateSmoking Tobacco: NeverSmokeless Tobacco: NeverAlcohol UseStandard Drinks/WeekCommentsYes0 (1 standard drink = 0.6 oz pure alcohol)One drink per monthEstimated Date of DeliveryCommentsYes 6Based on last menstrual period of 09/28/2024Sex and Gender Information ValueDate RecordedSex Assigned at BirthNot on fileLegal XblYowulh74/15/2023 8:11 PM EDTGender IdentityNot on fileSexual OrientationNot on filedocumented as of this encounter Plan of Treatment Not on file documented as of this encounter Procedures Procedure NamePriorityDate/TimeAssociated DiagnosisCommentsUS OB BPP W NON-WIBXXG6505/27/2025 10:21 AM EST documented in this encounter Results * US OB BPP W NON-STRESS (05/27/2025 10:21 AM EST)Anatomical Region LateralityModalityOtherSpecimen (Source)Anatomical Location / Laterality Collection Method / VolumeCollection TimeReceived Time05/27/2025 10:21 AM EST Narrative 05/27/2025 10:24 AM EST [facility] ?[address] ? [place] [address] ? Ultrasound Report ? Signed ? Patient: CLAUDIANATHANIEL ?MR#: [id number] ?? : 1995 ?Acct:[id number] ?? Age/Sex: 29 / F ?ADM Date: 05/27/25 ?? Loc: [facility] ??252-1 ? Attending Dr: Lora Ortiz D.O. ? Ordering Physician: Lora Ortiz D.O. ?? Date of Service: 05/27/25 ?? Procedure(s): US OB BPP w non-stress ?? Accession Number(s): [id number] ? cc: Kelly Mckenzie NP; Lora Ortiz D.O. ? [facility] ? [address] [facility] ? [place] [address] ? Patient Name: ?? NATHANIEL TAYLOR ? MRN: [facility]:[id number] ? date: 1995 ?Sex: F ?? Assigned Patient Location: [facility] ?? Current Patient Location: [facility] ?? Accession/Order Number: [id number] ?? Exam Date: 05/27/2025 ??09:01 ?Report Date: [...] Dictation Location: RADIO-PC-02 ? Electronically authenticated by: [id number] ??Y ?? Date: 05/27/2025 ??10:21 ? Dictated By: ?Saumya Prajapati M.D. ? Signed By: ?12/03/25 1024 ? DD/ 1021 ? TD/TT: ? Buyer: Procedure Note Radiology, Radiologist, - 05/27/2025 [place] [address] Ultrasound Report Signed Patient: NATHANIEL TAYLOR AMR#: [id number] : 1995Acct:[id number] Age/Sex: 29 / FADM Date: 05/27/25 Loc: [facility] 252-[address]: Lora Ortiz D.O. Ordering Physician: Lora Ortiz D.O. Date of Service: 05/27/25 Procedure(s): US OB BPP w non-stress Accession Number(s): [id number] cc: Kelly Mckenzie CYLINDER BATCHER; Lora Ortiz D.O. The [place] [address] Patient Name: NATHANIEL TAYLOR MRN: [id number] date: 1995 Sex: F Assigned Patient Location: [facility] Current Patient Location: [facility] Accession/Order Number: [id number] Exam Date: 05/27/2025 09:01 Report Date: 05/27/2025 [...] Prajapati M.D. 05/27/2025 10:21 AM Dictation Location: [place] [address] Electronically authenticated by: [id number] Y Date: 0:21 Dictated By: Saumya Prajapati M.D. Signed By:05/27/25 1024 DD/ 1021 TD/TT: Buyer: Authorizing ProviderResult TypeResult StatusCorey Angel DOCLINISYNC IMAGINGFinal Result documented in this encounter Visit Diagnoses Not on filedocumented in this encounter Care Teams Team MemberRelationshipSpecialtyStart DateEnd Date Unallocated, Noms Provider, [address] [place] [address] PCP - GeneralFamily Ppkrhudl49/14/24 Treasure England DO [address] [place] [address] Referring WyvyewdpmJtbdjmqpf11/14/24documented as of this encounter
--- OUTSIDE RECORDS SUMMARY | 2025-06-10 21:20 | XMS_ITS | Encounter Summary ---
Author Organization [facility] Address [address] [facility] [place] [address] Care Team Providers Care Blowing Weasand Name Role Phone Unallocated, Nomneena Provider Primary Care Provi aristeo Treasure England DO Unavailable [phone] Encounter Details DateTypeDepartmentCare Team (Latest Contact Info)Iuxazoidork45/17/2025bstract NATALIE [place] OBGYN [address] [place] [address] Junito Ortiz DO [address] [place], [facility] Social History Tobacco UseTypesPacks/DayYears UsedDateSmoking Tobacco: NeverSmokeless Tobacco: NeverAlcohol UseStandard Drinks/WeekCommentsYes0 (1 standard drink = 0.6 oz pure alcohol)One drink per monthEstimated Date of DeliveryCommentsYes 6Based on last menstrual period of 09/28/2024Sex and Gender Information ValueDate RecordedSex Assigned at BirthNot on fileLegal PlhXfxnld55/15/2023 8:11 PM EDTGender IdentityNot on fileSexual OrientationNot on filedocumented as of this encounter Plan of Treatment Not on file documented as of this encounter Visit Diagnoses Not on filedocumented in this encounter Care Teams Team MemberRelationshipSpecialtyStart DateEnd Date Unallocated, Noms Provider, [address] [place] [address] PCP - GeneralFamily Jhcqmxfh45/14/24 Treasure England DO [address] [place] [address] Referring ZerwyxywqZfxcswzvi83/14/24documented as of this encounter
--- OUTSIDE RECORDS SUMMARY | 2025-06-10 21:20 | XMS_ITS | Encounter Summary ---
Author Organization [facility] Address [address] [facility] [place] [address] Care Team Providers Care Retort Pre Cooker Name Role Phone Unallocated, Noms Provider MD Primary Care Provi aristeo Treasure England DO Unavailable [phone] Reason for Visit * ReasonCommentsMed Refill Encounter Details DateTypeDepartmentCare Team (Latest Contact Info)Ulsztldnbcu72/28/2025Refill [facility] [address] [place] [id number] Junito Ortiz DO [address] [place], [facility] Nausea and vomiting in ([facility] Social History Tobacco UseTypesPacks/DayYears UsedDateSmoking Tobacco: NeverSmokeless Tobacco: NeverAlcohol UseStandard Drinks/WeekCommentsYes0 (1 standard drink = 0.6 oz pure alcohol)One drink per monthEstimated Date of DeliveryCommentsYes 6Based on last menstrual period of 09/28/2024Sex and Gender Information ValueDate RecordedSex Assigned at BirthNot on fileLegal YntBkrkmk76/15/2023 8:11 PM EDTGender IdentityNot on fileSexual OrientationNot on filedocumented as of this encounter Plan of Treatment Not on file documented as of this encounter Visit Diagnoses Diagnosis Nausea and vomiting in ([facility]) Unspecified vomiting of , unspecified as to episode of care documented in this encounter Care Teams Team MemberRelationshipSpecialtyStart DateEnd Date Unallocated, Noms Provider, [address] [place], [place] [id number] PCP - GeneralFamily Icifufzc06/14/24 Treasure England DO [address] [place] [address] Referring CmecnvqnuLdoaeckgk82/14/24documented as of this encounter
--- OUTSIDE RECORDS SUMMARY | 2025-06-10 21:21 | XMS_ITS | Encounter Summary ---
Author Organization [facility] Address [address] [facility] [place] [address] Care Team Providers Care Physician Advisor Name Role Phone Unallocated, Noms Provider Primary Care Provi aristeo Treasure England DO Unavailable [phone] Encounter Details DateTypeDepartmentCare Team (Latest Contact Info)Qtuerdiasnw43/12/2025Clinisync Result Encounter [facility] Unsolicited Lora Ortiz, DO [address] [place] [address] Social History Tobacco UseTypesPacks/DayYears UsedDateSmoking Tobacco: NeverSmokeless Tobacco: NeverAlcohol UseStandard Drinks/WeekCommentsYes0 (1 standard drink = 0.6 oz pure alcohol)One drink per monthEstimated Date of DeliveryCommentsYes 6Based on last menstrual period of 09/28/2024Sex and Gender Information ValueDate RecordedSex Assigned at BirthNot on fileLegal ZswBvmtvk83/15/2023 8:11 PM EDTGender IdentityNot on fileSexual OrientationNot on filedocumented as of this encounter Plan of Treatment Not on file documented as of this encounter Procedures Procedure NamePriorityDate/TimeAssociated DiagnosisCommentsUS OB BPP W NON-UHCTCA9206/05/2025 4:51 PM EST documented in this encounter Results * US OB BPP W NON-STRESS (06/05/2025 4:51 PM EST)Anatomical Region LateralityModalityOtherSpecimen (Source)Anatomical Location / Laterality Collection Method / VolumeCollection TimeReceived Time06/05/2025 4:51 PM EST Narrative 06/05/2025 4:54 PM EST [facility] ?[address] ? [place], [facility] ? Ultrasound Report ? Signed ? Patient: CLAUDIANATHANIEL A ?MR#: [id number] ?? : 1995 ?Acct:[id number] ?? Age/Sex: 29 / F ?ADM Date: 06/05/25 ?? Loc: US ? Attending Dr: Lora Ortiz D.O. ? Ordering Physician: Lora Ortiz D.O. ?? Date of Service: 06/05/25 ?? Procedure(s): US OB BPP w non-stress ?? Accession Number(s): [id number] ? cc: Kelly Mckenzie CHEMICAL HANDLER; Lora Ortiz D.O. ? [facility] ? [address] [facility] ? [place] [address] ? Patient Name: ?? NATHANIEL TAYLOR ? MRN: [facility]:[id number] ? date: 1995 ?Sex: F ?? Assigned Patient Location: [facility] ?? Current Patient Location: ? Accession/Order Number: [id number] ?? Exam Date: 06/05/2025 ??15:11 ?Report Date: [...] M.D. ??06/05/2025 4:51 PM ? Dictation Location: [facility]23 ? Electronically authenticated by: [id number] ??Y ?? Date: 06/05/2025 ??16:51 ? Dictated By: ?Mateus Momin M.D. ? Signed By: ?06/05/25 1654 ? DD/ 1651 ? TD/TT: ? Conveyor Monitor: Procedure Note Radiology, Radiologist, MD - 06/05/2025 [place] [address] Ultrasound Report Signed Patient: NATHANIEL TAYLOR [facility]#: [id number] : 1995Acct:[id number] Age/Sex: 29 / FADM Date: 06/05/25 Loc: US Attending Dr: Lora Ortiz D.O. Ordering Physician: Lora Ortiz D.O. Date of Service: 06/05/25 Procedure(s): US OB BPP w non-stress Accession Number(s): [id number] cc: Kelly Mckenzie CHEMICAL HANDLER; Lora Ortiz D.O. The [address] [address] Patient Name: NATHANIEL TAYLOR MRN: [id number] date: 1995 Sex: F Assigned Patient Location: [facility] Current Patient Location: Accession/Order Number: [id number] Exam Date: 06/05/2025 15:11 Report Date: 06/05/2025 [...] BPP w non-stress IMPRESSION: Biophysical profile score: 8 Impression dictated by: Mateus Momin M.D. 06/05/2025 4:51 PM Dictation Location: [place] [address] Electronically authenticated by: [id number] Y Date: 6:51 Dictated By: Mateus Momin M.D. Signed By:06/05/251653 DD/ 50 TD/TT: Conveyor Monitor: Authorizing ProviderResult TypeResult StatusCorey Angel DOCLINISYNC IMAGINGFinal Result documented in this encounter Visit Diagnoses Not on filedocumented in this encounter Care Teams Team MemberRelationshipSpecialtyStart DateEnd Date Unallocated, Noms Provider, [address] [place] [address] PCP - GeneralFamily Hqzvfuco19/14/24 Treasure England DO [address] [place] [address] Referring OrgwqewykGykrdpgrs68/14/24documented as of this encounter
--- OUTSIDE RECORDS SUMMARY | 2025-06-10 21:21 | XMS_ITS | Clinical Summary ---
Author Organization [facility] Healthcare Address [address] [facility] [place] [address] Care Team Providers Care Bakeshop Cleaner Name Role Phone Unallocated, [facility] Provider MD Primary Care Provi aristeo Treasure England DO Unavailable [phone] Allergies Active AllergyReactionsCriticalityNoted DateCommentsDust Mite Ckjclfb5212/25/2023 Other Reaction(s): Unknown Reaction Pollen Mviifhe2809/19/2023 Other Reaction(s): Unknown Reaction Medications MedicationSigDispense QuantityRefillsLast FilledStart DateEnd DateStatus magnesium 100 MG tablet 3Active Probiotic Product (PROBIOTIC ADVANCED PO) ProbioticActive pyridoxine (Vitamin B-6) 25 MG tablet Take 25 mg by mouth DailyActive Doxylamine Succinate, Sleep, (UNISOM PO) Take by mouthActive ondansetron (Zofran) 4 MG tablet Indications:Nausea and vomiting in ([facility])Take 1 tablet (4 mg) by [...] 10 MG tablet Indications:Nausea and vomiting in ([facility])TAKE 1 TABLET BY MOUTH IN MORNING,AT NOON,IN EVENING 30 MINUTES PRIOR TO MEALS NEEDED FOR NAUSEA 90 tablet 5Active pantoprazole (Protonix) 40 MG EC tablet Indications:Gastroesophageal reflux disease with esophagitis, unspecified whether hemorrhageTake 1 tablet (40 mg) by mouth in the morning. Take before meals. Do not crush, chew, or split. 30 tablet 11012/17/73060407/13/2024Discontinued Ambien 10 MG tablet Indications: related fatigue in second trimester ([facility]),Insomnia, unspecified typeTake 1 tablet (10 mg) by mouth as needed at bedtime for sleep for up to 5 days 5 tablet Discontinued promethazine (Phenergan) 12.5 MG tablet Indications:Nausea and vomiting in ([facility])Take 1 tablet (12.5 mg) by mouth every 8 (eight) hours if needed for nausea or vomiting for up to 30 doses Take 1 tablet by mouth every 6 hours as needed for nausea. 30 tablet Discontinued metoclopramide (Reglan) 10 MG tablet Indications:Nausea and vomiting in ([facility])TAKE 1 TABLET BY MOUTH IN [...] Active Problems ProblemNoted DateDiagnosed DatePositive urine test ([facility])12/03/2024 Estimated Date of ZqxxxgryTnuuuibwYyi29/11/2026ased on last menstrual period of 09/28/2024 Encounters DateTypeDepartmentCare HasaRtkoelfonww28/17/2025 11:20 AM ESTRoutine [facility] [address] [place] [address] [place] [address] Lora Ortiz, DO Third trimester ([facility]); 36 weeks gestation of ([facility])06/10/2025bstract [facility] [place] [address] Lora Ortiz, DO 06/10/2025amboo flowsheet [facility] O[facility] [address] [facility] [place] [address] Lora Ortiz, DO 5Clinisync Result Encounter [facility] External Department Unsolicited Lora Ortiz, DO 06/01/2025 8:00 AM ESTAncillary Procedure [facility] [place] [address] Excessive growth affecting management of , antepartum, single or unspecified fetus ([facility])05/27/2025 1:00 PM ESTRoutine [facility] Chung [facility] [place] [address] Lora Ortiz, DO 34 weeks gestation of ([facility]); Third trimester ([facility]); Yeast infection; Excessive growth affecting management of , antepartum, single or unspecified fetus ([facility])05/27/2025linisync Result Encounter NOMS External Department Unsolicited Lora Ortiz, DO 05/22/2025linisync Result Encounter NOMS External Department Unsolicited Lora Ortiz, DO 05/22/2025Refill [facility] OBGYYamilka [address] [facility] [place] [address] Lora Ortiz, DO Nausea and vomiting in ([facility])05/15/2025linisync Result Encounter NOMS External Department Unsolicited Lora Ortiz, DO 05/13/2025 1:20 PM ESTRoutine [facility] KEARNS [address] [place] [address] Nicole Ghosh, PA 32 weeks gestation of ([facility]); Third trimester ([facility]); Racing heart beat05/13/2025amboo flowsheet [facility] [address] [facility] [place] [address] Nicole Ghosh PA 04/29/2025 1:30 PM ESTRoutine [facility] [address] [facility] [place] [address] Lora Ortiz, Third trimester ([facility]); 30 weeks gestation of ([facility])04/29/2025 1:00 PM ESTAncillary Procedure [facility] [address] [facility] [place] [address] size inconsistent with dates ([facility])04/22/2025linisync Result Encounter NOMS External Department Unsolicited Lora Ortiz, 04/22/2025linisync Result Encounter NOMS External Department Unsolicited Lora Ortiz, DO 04/15/2025 1:00 PM EDTRoutine [facility] [place] [facility] [address] [facility] [place] [address] Lora Ortiz, Third trimester ([facility]); 28 weeks gestation of ([facility]); size inconsistent with dates ([facility]); Racing heart beat04/15/2025bstract [facility] [address] [facility] [place] [address] Mable Dior MA 04/15/2025amboo flowsheet [facility] [address] [facility] [place] [address] Lora Ortiz, 04/13/2025bstract [facility] [place] [facility] [address] [facility] [place] [address] Mable Dior MA 04/08/2025bstract [facility] [address] [facility] [place] [address] Marge Kirkland NP 04/01/2025Telephone [facility] [address] [facility] [place] [address] Ariadna Bowden, MEL 04/01/2025linisync Result Encounter NOMS External Department Unsolicited Marge Kirkland NP 03/21/2025Refill [facility] [address] [facility] [place] [address] Lora Ortiz DO Nausea and vomiting in ([facility])03/18/2025 2:20 PM EDTRoutine [facility] [address] [facility] [place] [address] Lora Ortiz DO Second trimester ([facility]); 24 weeks gestation of ([facility]); Diabetes mellitus duqwtatwy90/24/2025 2:00 PM EDTAncillary Procedure [facility] [address] [facility] [place] [address] Encounter for follow-up ultrasound of anatomy ([facility])from Last 3 Months Family History Medical [...] ValueDate RecordedSex Assigned at BirthNot on fileLegal MwnSedewh27/15/2023 8:11 PM EDTGender IdentityNot on fileSexual OrientationNot on file Last Filed Vital Signs Vital SignReadingTime TakenCommentsBlood Qiztjiot388/7406/10/2025 11:51 AM EST Pulse--Temperature--Respiratory Rate--Oxygen Saturation--Inhaled Oxygen Concentration--Cbwtpy417 kg (230 lb)06/10/2025 11:51 AM UOKVdutdx659.7 cm (5' 8 )01/23/2024 1:31 PM EDTBody Mass Index34.9701/23/2024 1:31 PM EDT Plan of Treatment Health MaintenanceDue DateLast DoneCommentsCOVID-19 Vaccine ( season) 2025Influenza Vaccine (#1)2025Pneumococcal Vaccine: Pediatrics (0 to 5 Years) and At-Risk Patients (6 to 64 Years)Aged OutNo longer eligible based on patient's age to complete this topic Procedures Procedure NamePriorityDate/TimeAssociated DiagnosisCommentsPOCT URINALYSIS MTQWWBTQUzkjgkx08/17/2025 11:59 AM EST Third trimester ([facility]) US OB BPP W NON-ULLNZU1606/05/2025 4:51 PM EST POCT URINALYSIS KYHPGQYODlzqjyt98/03/2025 1:16 PM EST 34 weeks gestation of ([facility]) Third trimester ([facility]) US OB BPP W NON-OGXXKA1005/27/2025 10:21 AM EST US OB BPP W NON-KHZBMV9805/22/2025 12:44 PM EST US OB BPP W NON-FAQHNI7605/15/2025 3:36 PM EST POCT URINALYSIS VJDHBYFILsfzmwn38/19/2025 1:32 PM EST 32 weeks gestation of ([facility]) Third trimester ([facility]) POCT URINALYSIS OMVVNHPCIletdjb16/05/2025 1:42 PM EST 30 weeks gestation of ([facility]) US OB FOLLOW UP TRANSABDOMINAL WTESIBUKOeldkvu49/05/2025 1:17 PM EST size inconsistent with dates ([facility]) CA ECHO DOPPLER MCWYGSND64/29/2025 6:12 PM EDT ECG 12-LEAD04/22/2025 8:28 AM EDT POCT URINALYSIS PYPSSPUPXsaufym10/22/2025 1:16 PM EDT 28 weeks gestation of ([facility]) ALL CBC WITH AUTO NTCZDhppoyy70/08/2025 9:19 AM EDT GLUCOSE 1 EBPPAvbnujm89/08/2025 9:19 AM EDT POCT URINALYSIS JDYXPIKPHbblwlj31/24/2025 2:39 PM EDT Second trimester ([facility]) US OB LIMITED 1+ YLZPHNZNeuabla97/24/2025 2:17 PM EDT Encounter for follow-up ultrasound of anatomy ([facility]) from Last 3 Months Results * (ABNORMAL) POCT urinalysis dipstick manually resulted (06/10/2025 11:59 AM EST) Only the most recent of6 resultswithin the time period is included. ComponentValueRef RangeTest MethodAnalysis TimePerformed AtPathologist Signature Color, UAYellowClarity, UAClearGlucose, UANegativeNegative - 2000(110) ++++ mg/dLBilirubin, UANegativeNegative - 4(70) +++ mg/dLKetones, UANegativeNegative - 160(16) ++++ mg/dLSpec Grav, UA1.0151 - 1.03Blood, UANegativeNegative - 50 Cj/mcLpH, UA6.05 - 9Protein, UA1+Negative - 2000(20) ++++ mg/dLUrobilinogen, UA 1.00.2 - 12 mg/dLLeukocytes, UA1+Negative - 500+++ Cosmo/mcLNitrite, UANegative Negative - PositiveSpecimen (Source)Anatomical Location / LateralityCollection Method / VolumeCollection TimeReceived VbkuMkltj28/17/2025 11:59 AM EST Narrative Authorizing ProviderResult TypeResult StatusCorey Angel DOPOINT OF CARE TEST ENTER/EDIT ORDERABLESFinal Result * US OB BPP W NON-STRESS (06/05/2025 4:51 PM EST) Only the most recent of4 resultswithin the time period is included. Anatomical RegionLateralityModalityOtherSpecimen (Source)Anatomical Location / LateralityCollection Method / VolumeCollection TimeReceived Time06/05/2025 4:51 PM EST Narrative 06/05/2025 4:54 PM EST [facility] ?[address] ? [place] [address] ? Ultrasound Report ? Signed ? Patient: NATHANIEL TAYLOR ?MR#: [id number] ?? : 1995 ?Acct:[id number] ?? Age/Sex: 29 / F ?ADM Date: 06/05/25 ?? Loc: US ? Attending Dr: Lora Ortiz D.O. ? Ordering Physician: Lora Ortiz D.O. ?? Date of Service: 06/05/25 ?? Procedure(s): US OB BPP w non-stress ?? Accession Number(s): [id number] ? cc: Kelly Mckenzie [employer]; Lora Ortiz D.O. ? [facility] ? [address] ? [place] [address] ? Patient Name: ?? NATHANIEL TAYLOR ? MRN: [facility]:[id number] ? date: 1995 ?Sex: F ?? Assigned Patient Location: [facility] ?? Current Patient Location: ? Accession/Order Number: [id number] ?? Exam Date: 06/05/2025 ??15:11 ?Report Date: [...] M.D. ??06/05/2025 4:51 PM ? Dictation Location: [facility]--[facility] ? Electronically authenticated by: [id number] ??Y ?? Date: 06/05/2025 ??16:51 ? Dictated By: ?Mateus Momin M.D. ? Signed By: ?06/05/25 1654 ? DD/ 1651 ? TD/TT: ? Grade Setter: Procedure Note Radiology, Radiologist, - 06/05/2025 [place] [address] Ultrasound Report Signed Patient: NATHANIEL TAYLOR AMR#: [id number] : 1995Acct:[id number] Age/Sex: 29 / FADM Date: 06/05/25 Loc: US Attending Dr: Lora Ortiz D.O. Ordering Physician: Lora Ortiz D.O. Date of Service: 06/05/25 Procedure(s): US OB BPP w non-stress Accession Number(s): [id number] cc: Kelly Mckenzie [employer]; Lora Ortiz D.O. [place] [address] Patient Name: NATHANIEL TAYLOR MRN: [id number] date: 1995 Sex: F Assigned Patient Location: [facility] Current Patient Location: Accession/Order Number: [id number] Exam Date: 06/05/2025 15:11 Report Date: 06/05/2025 [...] Momin M.D. 06/05/2025 4:51 PM Dictation Location: [place] [address] Electronically authenticated by: [id number] Y Date: 6:51 Dictated By: Mateus Momin M.D. Signed By:06/05/25 1654 DD/ 165 TD/TT: Grade Setter: Authorizing ProviderResult TypeResult StatusCorey Angel DOCLINISYNC IMAGINGFinal [...] Angel PRICE OB US PROCEDURES Final Result * CA ECHO DOPPLER COMPLETE (04/22/2025 6:12 PM EDT)Anatomical RegionLaterality ModalityOtherSpecimen (Source)Anatomical Location / LateralityCollection Method / VolumeCollection TimeReceived Time04/22/2025 6:12 PM EDT Narrative 04/22/2025 6:13 PM EDT [facility] ?[address] ? [place] [address] ? Cardiology Report ? Signed ? Patient: NATHANIEL TAYLOR ?MR#: [id number] ?? : 1995 ?Acct:[id number] ?? Age/Sex: 29 / F ?ADM Date: 04/22/25 ?? Loc: CARD ? Attending Dr: Lora Ortiz D.O. ? Ordering Physician: Lora Ortiz D.O. ?? Date of Service: 04/22/25 ?? Procedure(s): CA echo doppler complete ?? Accession Number(s): [id number] ? cc: Kelly Mckenzie [employer]; Lora Ortiz D.O. ? Patient Name: ? NATHANIEL TAYLOR ? MR#: [id number] ? : 1995 ? Exam Date: 04/22/2025 [...] ? 2.50 cm2, 2.50 cm2 ?? Deceleration [place]: ? Pressure Half-Time: ? Peak Velocity(Antegrade Flow): [...] 1813 ? DD/ 1812 ? TD/TT: ? Grade Setter: Procedure Note Radiology, Radiologist, - 04/22/2025 [place] [address] Cardiology Report Signed Patient: NATHANIEL TAYLOR AMR#: [id number] : 1995Acct:[id number] Age/Sex: 29 / FADM Date: 04/22/25 Loc: CARD Attending Dr: Lora Ortiz D.O. Ordering Physician: Lora Ortiz D.O. Date of Service: 04/22/25 Procedure(s): CA echo doppler complete Accession Number(s): [id number] cc: Kelly Mckenzie [employer]; Lora Ortiz D.O. Patient Name: NATHANIEL TAYLOR MR#: [id number] : 1995 Exam Date: 04/22/2025 Ordering Doctor: [...] Area (VTI): 2.50 cm2, 2.50 cm2 Deceleration [place]: Pressure Half-Time: Peak Velocity(Antegrade Flow): 1.55 m/s [...] Lopez M.D. Signed By:04/22/251812 DD/ 11 TD/TT: Grade Setter: Authorizing ProviderResult TypeResult StatusCorey Angel DOCLINISYNC IMAGINGFinal Result * ECG 12-LEAD (04/22/2025 8:28 AM EDT)Anatomical RegionLateralityModalityOther Specimen (Source)Anatomical Location / LateralityCollection Method / Volume Collection TimeReceived Time04/22/2025 8:28 AM EDT Narrative 04/22/2025 6:39 PM EDT [facility] ?[address] ? [place] [address] ? Electrocardiograph Report ? Signed ? Patient: CLAUDIA,NATHANIEL A ?MR#: [id number] ?? : 1995 ?Acct:[id number] ?? Age/Sex: 29 / F ?ADM Date: 10/29/25 ?? Loc: CARD ? Attending Dr: Lora Ortiz D.O. ? Ordering Physician: Lora Ortiz D.O. ?? Date of Service: 04/22/25 ?? Procedure(s): ECG 12 lead ?? Accession Number(s): [id number] ? cc: ?[facility] ? Test Date: ?2025-04-22 ?? Pat Name: ? NATHANIEL TAYLOR ?Department: ? Room: ? - ?? Gender: ? Female ? 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 : ?1995 ? Requested By: LORA ORTIZ ?? Order Number: [id number] ?Reading MD: ?? SLY HERRERA ? Measurements ?? Intervals ?[place] ? Rate: ? 84 ? P: ?22 ?? ID: ? 139 ?QRS: ?88 ?? QRSD: ? 94 ? T: ?54 ?? QT: ? 361 ? QTc: ?429 ? Interpretive Statements ?? SINUS RHYTHM ?? No previous ECG available for comparison ?? Electronically Signed On 04-22-2025 18:39:57 EDT by SLY HERRERA ? Dictated By: ?Sly Herrera M.D. ? Signed By: ?10/29/25 1839 ?04/22/25 1839 ? DD/ 0828 ? TD/TT: ? Grade Setter: Procedure Note Radiology, Radiologist, - 04/22/2025 [place] [address] Electrocardiograph Report Signed Patient: NATHANIEL TAYLOR AMR#: [id number] : 1995Acct:[id number] Age/Sex: M Date: 04/22/25 Loc: CARD Attending Dr: Lora Ortiz D.O. Ordering Physician: Lora Ortiz D.O. 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 Signed By:04/22/25183804/22/251838 DD/ 7 TD/TT: Grade Setter: Authorizing ProviderResult TypeResult StatusCorey Angel BAUER IMAGINGFinal Result * GLUCOSE 1 HOUR (04/01/2025 9:19 AM EDT)ComponentValueRef RangeTest Method Analysis TimePerformed AtPathologist SignatureGLUCOSE 1 DKIH240<130 mg/dLTBH Specimen (Source)Anatomical Location / LateralityCollection Method / Volume Collection TimeReceived Time04/01/2025 9:19 AM EDT1 9:27 AM EDT Narrative CLINISYNC - 04/01/2025 10:15 AM EDT Authorizing ProviderResult TypeResult StatusMarge Marita NPLAB BLOOD ORDERABLESFinal ResultPerforming OrganizationAddressCity/State/ZIP CodePhone Number [facility]INC[facility] * (ABNORMAL) ALL CBC WITH AUTO DIFF (04/01/2025 9:19 AM EDT)ComponentValueRef RangeTest MethodAnalysis TimePerformed AtPathologist SignatureTBH WBC11.8(H) 4.0 - 11.0 10 3/uLTBHTBH RBC3.81(L)4.20 - 5.40 10 6/uLTBHTBH HGB10.9(L)12.0 - 16.0 g/dLTBHTBH HCT33.8(L)36.0 - 48.0 %TBHTBH MCV88.781.0 - 99.0 fLTBHTBH MCH 28.626.7 - 34.0 pgTBHTBH MCHC32.229.9 - 35.2 g/dLTBHTBH RDW12.611.0 - 15.0 % TBHTBH NZH425097 - 450 10 3/uLTBHTBH MPV11.09.5 - 13.5 [...] 04/01/2025 10:35 AM EDT Authorizing ProviderResult TypeResult StatusKrraquela Marita NPCLINISYNCFinal ResultPerforming OrganizationAddressCity/State/ZIP CodePhone Number [facility] * US OB limited 1+ fetuses [...] Date Unallocated, [facility] Provider, [address] [place] [address] PCP - GeneralFamily Vphbazds07/14/24 Treasure England DO [address] [place] [address] Referring DpspdzccpIrnqillxr20/14/24
== END 2025-06-10 21:16 | disposition home or self-care (01) ==
LOC: LAB 21:15
PROVIDERS: PCP Nurse Practitioner Family; Visit Provider Obstetrics & Gynecology
DX: Z34.93 Encounter for supervision of normal pregnancy, unspecified, third trimester (principal); Z3A.36 36 weeks gestation of pregnancy
CPT/HCPCS: 87081

== ENCOUNTER 2025-06-11 15:49 | Outpatient (OUT) | payer OTHER, SELFPAY ==
--- OUTSIDE RECORDS SUMMARY | 2025-06-01 08:00 | XMS_ITS | Encounter Summary ---
Author Organization [facility] Address [address] [facility] [place] [address] Care Team Providers Care Bakery And Deli Sales Manager Name Role Phone Unallocated, Noms Provider Primary Care Provi aristeo Tomás Treasure DO Unavailable [phone] Encounter Details DateTypeDepartmentCare Team (Latest Contact Info)Lvfytkoyntp20/08/2025 8:00 AM ESTAncillary Procedure NATALIE [place] OBGYN [address] [place] [address] [place] [address] Excessive growth affecting management of , antepartum, single or unspecified fetus ([facility]) Social History Tobacco UseTypesPacks/DayYears UsedDateSmoking Tobacco: NeverSmokeless Tobacco: NeverAlcohol UseStandard Drinks/WeekCommentsYes0 (1 standard drink = 0.6 oz pure alcohol)One drink per monthEstimated Date of DeliveryCommentsYes 6Based on last menstrual period of 09/28/2024Sex and Gender Information ValueDate RecordedSex Assigned at BirthNot on fileLegal HetSfngxu70/15/2023 8:11 PM EDTGender IdentityNot on fileSexual OrientationNot on filedocumented as of this encounter Plan of Treatment NameTypePriorityAssociated DiagnosesDate/TimeUS OB follow up transabdominal approachImagingRoutine Excessive growth affecting management of , antepartum, single or unspecified fetus ([facility]) 06/01/2025 8:18 AM ESTdocumented as of this encounter Visit Diagnoses Diagnosis Excessive growth affecting management of , antepartum, single or unspecified fetus ([facility]) documented in this encounter Care Teams Team MemberRelationshipSpecialtyStart DateEnd Date Unallocated, Noms Provider, [address] [place] [address] PCP - GeneralFamily Cjehavvt32/14/24 Treasure England DO [address] [place] [address] Referring UiodauphySeqasbxsy61/14/24documented as of this encounter
--- OUTSIDE RECORDS SUMMARY | 2025-06-10 11:20 | XMS_ITS | Encounter Summary ---
Author Organization [facility] Address [address] [facility] [place] [address] Care Team Providers Care Airfield Defence Guard Name Role Phone Unallocated, Noms Provider MD Primary Care Provi aristeo TomásTreasure leach DO Unavailable [phone] Reason for Visit * ReasonCommentsRoutine Visit Encounter Details DateTypeDepartmentCare Team (Latest Contact Info)Pkfesdbmmkg55/17/2025 11:20 AM ESTRoutine NATALIE [place] OBGYN [address] [place] [address] Junito Ortiz DO [address] [place], [place] [address] Third trimester ([facility]); 36 weeks gestation of ([facility]) Social History Tobacco UseTypesPacks/DayYears UsedDateSmoking Tobacco: NeverSmokeless Tobacco: NeverAlcohol UseStandard Drinks/WeekCommentsYes0 (1 standard drink = 0.6 oz pure alcohol)One drink per monthEstimated Date of DeliveryCommentsYes 6Based on last menstrual period of 09/28/2024Sex and Gender Information ValueDate RecordedSex Assigned at BirthNot on fileLegal JixDplskb04/15/2023 8:11 PM EDTGender IdentityNot on fileSexual OrientationNot on filedocumented as of this encounter Last Filed Vital Signs Vital SignReadingTime TakenCommentsBlood Acqopcdr302/7412/ 11:51 AM EST Pulse--Temperature--Respiratory Rate--Oxygen Saturation--Inhaled Oxygen Concentration--Ejejaa166 kg (230 lb)06/10/2025 11:51 AM ESTHeight--Body Mass [...] nursing note reviewed. Exam conducted with a under sheriff present. Vitals: Estimated body mass index is 34.97 kg/m?? as calculated from the following: Height as of 01/23/24: 5' 8 . Weight as of this encounter: 230 lb. BP: 124/74 Patient's last menstrual period was 09/28/2024. Assessment/Plan ICD-10-CM 1. Third trimester ([facility]) Z34.93 POCT urinalysis dipstick manually resulted CULTURE, GROUP B STREP WITH SUSCEPTIBLITY CULTURE, GROUP B STREP WITH SUSCEPTIBLITY 2. 36 weeks gestation of ([facility]) Z3A.36 Assessment/Plan Patient is doing well but [...] GROUP B STREP WITH SUSCEPTIBLITYLabRoutine Third trimester ([facility]) Expected: 06/10/2025, Expires: 06/10/2026documented as of this encounter Procedures Procedure NamePriorityDate/TimeAssociated DiagnosisCommentsPOCT URINALYSIS MPSOUAGPFfgpsfv77/17/2025 11:59 AM EST Third trimester ([facility]) documented in this encounter Results * (ABNORMAL) [...] this encounter Visit Diagnoses Diagnosis Third trimester ([facility]) state, incidental 36 weeks gestation of ([facility]) documented in this encounter Care Teams Team MemberRelationshipSpecialtyStart DateEnd Date Unallocated, Noms Provider, [address] [place] [address] PCP - GeneralFamily Zihjynmy10/14/24 Treasure England DO [address] [place] [address] Referring OojcsfxgiFlghosazx71/14/24documented as of this encounter
--- OUTSIDE RECORDS SUMMARY | 2025-06-11 15:52 | XMS_ITS | Clinical Summary ---
Author Organization [employer] Address [id number] [address] [place] [address] Care Team Providers Care Radiology Technologist Name Role Phone Kelly Mckenzie YANELI-WOOD HEEL FINISHER Primary Care Provider Allergies No known active [...] without aura and without status migrainosus, not sowjpjsadwr66/29/2023Pineal gland cyst05/23/2023Hx of xeadriaegt36/29/2023Vestibular mujlizfl06/27/2023Choroid plexus cyst of fetus affecting care of mother, zgxauwrshw84/10/2021 Family History Medical HistoryRelationNameCommentsBreast cancerMaternal GrandmotherDiabetes Maternal [...] Frequency of Binge DrinkingNot on file12/19/2019PHQ-2AnswerDate RecordedTotal Iazqc652/29/2023ChildcareAnswerDate WkcxuhjgIxlqmudxqSarcpxt09/24/2020Employment AnswerDate FzypmudlLlpvqcbqokUjrqgkb90/24/2020Hunger ScreeningAnswerDate RecordedWithin the past 12 months we worried whether our food would run out before we got money to buy more.Never True09/05/2023Within the past 12 months the food we bought just didn't last and we didn't have money to get more.Never True4Purpose - LifeAnswerDate RecordedPurpose and direction in life Wchrgjo02/11/2021CommentsNoSex and Gender InformationValueDate Recorded Sex Assigned at BirthNot on fileLegal AizQxlpbt32/24/2020 11:48 AM EDTGender IdentityNot on fileSexual OrientationNot on file Last Filed Vital Signs Vital SignReadingTime TakenCommentsBlood Zzbcjdlm462/7703 9:42 AM EDT Eclbf606709/05/2023 9:42 AM EDTTemperature--Respiratory Rate--Oxygen Saturation-- Inhaled Oxygen Concentration--Upeapq84.9 kg (202 lb 8 oz)09/05/2023 9:42 AM EDT Bhzmoo095.7 cm (5' 8 )09/05/2023 9:42 AM EDTBody Mass Index30.7909/05/2023 9:42 AM EDT Plan of Treatment Health MaintenanceDue DateLast DoneCommentsDTaP,Tdap and Td Vaccines (1 - Tdap) 12/19/2014Pap Smear12/19/2016Depression Ymyqvmpmf16dult BMI Gnorzlxxu41Tobacco Dmosbzezf63Influenza Onpxgle1502/23/2025 Medical [place] [address] Care Teams Team MemberRelationshipSpecialtyStart DateEnd Date Kelly Mckenzie APRN-WOOD HEEL FINISHER [address], [facility] [address] [place] [address] PCP - GeneralFamily Haehzxig19/13/23
--- OUTSIDE RECORDS SUMMARY | 2025-06-11 15:52 | XMS_ITS | Encounter Summary ---
Author Organization [facility] Address [address] [facility] [place] [address] Care Team Providers Care Icer Machine Name Role Phone Unallocated, Nomneena Provider Primary Care Provi aristeo Treasure England DO Unavailable [phone] Encounter Details DateTypeDepartmentCare Team (Latest Contact Info)Zmjqfxtsrsf26/17/2025Bamboo flowsheet [facility] [address] [place] [address] Junito Ortiz DO [address] [facility] [address] Iam Brown, [facility]11 Social History Tobacco UseTypesPacks/DayYears UsedDateSmoking Tobacco: NeverSmokeless Tobacco: NeverAlcohol UseStandard Drinks/WeekCommentsYes0 (1 standard drink = 0.6 oz pure alcohol)One drink per monthEstimated Date of DeliveryCommentsYes 6Based on last menstrual period of 09/28/2024Sex and Gender Information ValueDate RecordedSex Assigned at BirthNot on fileLegal SsxMcbdpi03/15/2023 8:11 PM EDTGender IdentityNot on fileSexual OrientationNot on filedocumented as of this encounter Plan of Treatment Not on file documented as of this encounter Visit Diagnoses Not on filedocumented in this encounter Care Teams Team MemberRelationshipSpecialtyStart DateEnd Date Unallocated, Noms Provider, [address] [place] [address] PCP - GeneralFamily Rstsflks66/14/24 Treasure England DO [address] [place] [address] Referring NpryjfxibYhnwcomlj40/14/24documented as of this encounter
--- OUTSIDE RECORDS SUMMARY | 2025-06-11 15:52 | XMS_ITS | Encounter Summary ---
Author Organization [facility] Address [address] [facility] [place] [address] Care Team Providers Care Cabinetmaker Maintenance Name Role Phone Unallocated, Nomneena Provider Primary Care Provi aristeo Treasure England DO Unavailable [phone] Encounter Details DateTypeDepartmentCare Team (Latest Contact Info)Imstsfraxqk62/17/2025bstract [facility] [address] [place] [address] Junito Ortiz DO [address] [facility] [address] Iam Brown, [facility]11 Social History Tobacco UseTypesPacks/DayYears UsedDateSmoking Tobacco: NeverSmokeless Tobacco: NeverAlcohol UseStandard Drinks/WeekCommentsYes0 (1 standard drink = 0.6 oz pure alcohol)One drink per monthEstimated Date of DeliveryCommentsYes 6Based on last menstrual period of 09/28/2024Sex and Gender Information ValueDate RecordedSex Assigned at BirthNot on fileLegal AenAaggyx38/15/2023 8:11 PM EDTGender IdentityNot on fileSexual OrientationNot on filedocumented as of this encounter Plan of Treatment Not on file documented as of this encounter Visit Diagnoses Not on filedocumented in this encounter Care Teams Team MemberRelationshipSpecialtyStart DateEnd Date Unallocated, Noms Provider, [address] [facility] [address] PCP - GeneralFamily Edprdins51/14/24 Treasure England DO [address] [place] [address] Referring BexcqcdyyDzwgbyjkh33/14/24documented as of this encounter
--- OUTSIDE RECORDS SUMMARY | 2025-06-11 15:53 | XMS_ITS | Encounter Summary ---
Author Organization [facility] Address [address] [facility] [place] [address] Care Team Providers Care Safety Lead Name Role Phone Unallocated, [facility] Provider Primary Care Provi aristeo Treasure England DO Unavailable [phone] Encounter Details DateTypeDepartmentCare Team (Latest Contact Info)Qrlatfjvjba47/12/2025Clinisync Result Encounter [facility] External Department Unsolicited Lora Ortiz, DO [address] [place] [address] Social History Tobacco UseTypesPacks/DayYears UsedDateSmoking Tobacco: NeverSmokeless Tobacco: NeverAlcohol UseStandard Drinks/WeekCommentsYes0 (1 standard drink = 0.6 oz pure alcohol)One drink per monthEstimated Date of DeliveryCommentsYes 6Based on last menstrual period of 09/28/2024Sex and Gender Information ValueDate RecordedSex Assigned at BirthNot on fileLegal MjkJancwa42/15/2023 8:11 PM EDTGender IdentityNot on fileSexual OrientationNot on filedocumented as of this encounter Plan of Treatment Not on file documented as of this encounter Procedures Procedure NamePriorityDate/TimeAssociated DiagnosisCommentsUS OB BPP W NON-SZKDZV2206/05/2025 4:51 PM EST documented in this encounter Results * US OB BPP W NON-STRESS (06/05/2025 4:51 PM EST)Anatomical Region LateralityModalityOtherSpecimen (Source)Anatomical Location / Laterality Collection Method / VolumeCollection TimeReceived Time06/05/2025 4:51 PM EST Narrative 06/05/2025 4:54 PM EST [facility] ?[address] ? [place], [facility] ? Ultrasound Report ? Signed ? Patient: CLAUDIANATHANIEL A ?MR#: [id number] ?? : 1995 ?Acct:[id number] ?? Age/Sex: 29 / F ?ADM Date: 06/05/25 ?? Loc: US ? Attending Dr: Lora Ortiz D.O. ? Ordering Physician: Lora Ortiz D.O. ?? Date of Service: 06/05/25 ?? Procedure(s): US OB BPP w non-stress ?? Accession Number(s): [id number] ? cc: Kelly Mckenzie SAMPLE MOUNTER; Lora Ortiz D.O. ? [facility] ? [address] [facility] ? [place] [address] ? Patient Name: ?? NATHANIEL TAYLOR ? MRN: [facility]:[id number] ? date: 1995 ?Sex: F ?? Assigned Patient Location: [facility] ?? Current Patient Location: ? Accession/Order Number: [id number] ?? Exam Date: 06/05/2025 ??15:11 ?Report Date: [...] M.D. ??06/05/2025 4:51 PM ? Dictation Location: [facility] ? Electronically authenticated by: [id number] ??Y ?? Date: 06/05/2025 ??16:51 ? Dictated By: ?Mateus Momin M.D. ? Signed By: ?06/05/25 1654 ? DD/ 1651 ? TD/TT: ? Manager Transportation Planning: Procedure Note Radiology, Radiologist, MD - 06/05/2025 [place] [address] Ultrasound Report Signed Patient: NATHANIEL TAYLOR AMR#: [id number] : 1995Acct:[id number] Age/Sex: 29 / FADM Date: 06/05/25 Loc: US Attending Dr: Lora Ortiz D.O. Ordering Physician: Lora Ortiz D.O. Date of Service: 06/05/25 Procedure(s): US OB BPP w non-stress Accession Number(s): [id number] cc: Kelly Mckenzie SAMPLE MOUNTER; Lora Ortiz D.O. The [address] [address] Patient Name: NATHANIEL TAYLOR MRN: [facility]:[id number] date: 1995 Sex: F Assigned Patient Location: [facility] Current Patient Location: Accession/Order Number: [id number] Exam Date: 06/05/2025 15:11 Report Date: 06/05/2025 [...] Momin M.D. 06/05/2025 4:51 PM Dictation Location: [place] [address] Electronically authenticated by: [id number] Y Date: 6:51 Dictated By: Mateus Momin M.D. Signed By:06/05/251653 DD/ 50 TD/TT: Manager Transportation Planning: Authorizing ProviderResult TypeResult StatusCorey Angel DOCLINISYNC IMAGINGFinal Result documented in this encounter Visit Diagnoses Not on filedocumented in this encounter Care Teams Team MemberRelationshipSpecialtyStart DateEnd Date Unallocated, Noms Provider, [address] [place] [address] PCP - GeneralFamily Gxsibdla64/14/24 Treasure England DO [address] [place] [address] Referring IlxxlmeodCjimhrkbi95/14/24documented as of this encounter
--- OUTSIDE RECORDS SUMMARY | 2025-06-11 15:53 | XMS_ITS | Clinical Summary ---
Author Organization [facility] Healthcare Address [address] [facility] [place] [address] Care Team Providers Care Stage Rigger Name Role Phone Unallocated, [facility] Provider MD Primary Care Provi aristeo Treasure England DO Unavailable [phone] Allergies Active AllergyReactionsCriticalityNoted DateCommentsDust Mite Wqjzyyj5412/25/2023 Other Reaction(s): Unknown Reaction Pollen Rktmvoj7509/19/2023 Other Reaction(s): Unknown Reaction Medications MedicationSigDispense QuantityRefillsLast FilledStart DateEnd DateStatus magnesium 100 MG tablet 3Active Probiotic Product (PROBIOTIC ADVANCED PO) ProbioticActive pyridoxine (Vitamin B-6) 25 MG tablet Take 25 mg by mouth DailyActive Doxylamine Succinate, Sleep, (UNISOM PO) Take by mouthActive ondansetron (Zofran) 4 MG tablet Indications:Nausea and vomiting in ([facility])Take 1 tablet (4 mg) by [...] 10 MG tablet Indications:Nausea and vomiting in ([facility])TAKE 1 TABLET BY MOUTH IN MORNING,AT NOON,IN EVENING 30 MINUTES PRIOR TO MEALS NEEDED FOR NAUSEA 90 tablet 5Active pantoprazole (Protonix) 40 MG EC tablet Indications:Gastroesophageal reflux disease with esophagitis, unspecified whether hemorrhageTake 1 tablet (40 mg) by mouth in the morning. Take before meals. Do not crush, chew, or split. 30 tablet 11012/17/38439807/13/2024Discontinued Ambien 10 MG tablet Indications: related fatigue in second trimester ([facility]),Insomnia, unspecified typeTake 1 tablet (10 mg) by mouth as needed at bedtime for sleep for up to 5 days 5 tablet Discontinued promethazine (Phenergan) 12.5 MG tablet Indications:Nausea and vomiting in ([facility])Take 1 tablet (12.5 mg) by mouth every 8 (eight) hours if needed for nausea or vomiting for up to 30 doses Take 1 tablet by mouth every 6 hours as needed for nausea. 30 tablet Discontinued metoclopramide (Reglan) 10 MG tablet Indications:Nausea and vomiting in ([facility])TAKE 1 TABLET BY MOUTH IN MORNING,AT NOON,IN [...] Active Problems ProblemNoted DateDiagnosed DatePositive urine test ([facility])12/03/2024 Estimated Date of FaxxwyaaZvoqpugsTlh69/11/2026ased on last menstrual period of 09/28/2024 Encounters DateTypeDepartmentCare DwpoTqognozmaru88/17/2025 11:20 AM ESTRoutine [facility] [address] [place] [address] [place] [address] Lora Ortiz, DO Third trimester ([facility]); 36 weeks gestation of ([facility])06/10/2025bstract [facility] [place] [address] Lora Ortiz, DO 06/10/2025amboo flowsheet [facility] [address] [facility] [place] [address] Lora Ortiz, DO 5Clinisync Result Encounter [facility] External Department Unsolicited Lora Ortiz, DO 06/01/2025 8:00 AM ESTAncillary Procedure [facility] [place] [address] Excessive growth affecting management of , antepartum, single or unspecified fetus ([facility])05/27/2025 1:00 PM ESTRoutine [facility] [facility] [place] [address] Lroa Ortiz, DO 34 weeks gestation of ([facility]); Third trimester ([facility]); Yeast infection; Excessive growth affecting management of , antepartum, single or unspecified fetus ([facility])05/27/2025linisync Result Encounter [facility] External Department Unsolicited Lora Ortiz, DO 05/22/2025linisync Result Encounter [facility] External Department Unsolicited Lora Ortiz, DO 05/22/2025Refill [facility] OBGYYamilka [address] [facility] [place] [address] Lora Ortiz, DO Nausea and vomiting in ([facility])05/15/2025linisync Result Encounter [facility] External Department Unsolicited Lora Ortiz, DO 05/13/2025 1:20 PM ESTRoutine [facility] [address] [place] [address] Nicole Ghosh, PA 32 weeks gestation of ([facility]); Third trimester ([facility]); Racing heart beat05/13/2025amboo flowsheet [facility] [address] [facility] [place] [address] Nicole Ghosh PA 04/29/2025 1:30 PM ESTRoutine [facility] [address] [facility] [place] [address] Lora Ortiz, Third trimester ([facility]); 30 weeks gestation of ([facility])04/29/2025 1:00 PM ESTAncillary Procedure [facility] [address] [facility] [place] [address] size inconsistent with dates ([facility])04/22/2025linisync Result Encounter [facility] External Department Unsolicited Lora Ortiz, 04/22/2025linisync Result Encounter [facility] External Department Unsolicited Lora Ortiz, DO 04/15/2025 1:00 PM EDTRoutine [facility] [address] [facility] [place] [address] Lora Ortiz, Third trimester ([facility]); 28 weeks gestation of ([facility]); size inconsistent with dates ([facility]); Racing heart beat04/15/2025bstract [facility] [address] [facility] [place] [address] Mable Dior MA 04/15/2025amboo flowsheet [facility] [address] [facility] [place] [address] Lora Ortiz, 04/13/2025bstract [facility] [place] [address] [facility] [place] [address] Mable Dior MA 04/08/2025bstract [facility] [address] [facility] [place] [address] Marge Kirkland NP 04/01/2025Telephone [facility] [address] [facility] [place] [address] Ariadna Bowden, MEL 04/01/2025linisync Result Encounter [facility] External Department Unsolicited Marge Kirkland NP 03/21/2025Refill [facility] [address] [facility] [place] [address] Lora Ortiz DO Nausea and vomiting in ([facility])03/18/2025 2:20 PM EDTRoutine [facility] [address] [facility] [place] [address] Lora Ortiz DO Second trimester ([facility]); 24 weeks gestation of ([facility]); Diabetes mellitus yxaorgslf28/24/2025 2:00 PM EDTAncillary Procedure [facility] [address] [facility] [place] [address] Encounter for follow-up ultrasound of anatomy ([facility])from Last 3 Months Family History Medical HistoryRelationNameCommentsBreast [...] ValueDate RecordedSex Assigned at BirthNot on fileLegal MzvTkuerb37/15/2023 8:11 PM EDTGender IdentityNot on fileSexual OrientationNot on file Last Filed Vital Signs Vital SignReadingTime TakenCommentsBlood Xzwofaqb910/7406/10/2025 11:51 AM EST Pulse--Temperature--Respiratory Rate--Oxygen Saturation--Inhaled Oxygen Concentration--Pnqjwx269 kg (230 lb)06/10/2025 11:51 AM IXJBnrzfd536.7 cm (5' 8 )01/23/2024 1:31 PM EDTBody Mass Index34.9701/23/2024 1:31 PM EDT Plan of Treatment Health MaintenanceDue DateLast DoneCommentsCOVID-19 Vaccine ( season) 2025Influenza Vaccine (#1)2025Pneumococcal Vaccine: Pediatrics (0 to 5 Years) and At-Risk Patients (6 to 64 Years)Aged OutNo longer eligible based on patient's age to complete this topic Procedures Procedure NamePriorityDate/TimeAssociated DiagnosisCommentsPOCT URINALYSIS UDKDAQXIHluaucq03/17/2025 11:59 AM EST Third trimester ([facility]) US OB BPP W NON-QRMTXD9006/05/2025 4:51 PM EST POCT URINALYSIS VVLHIVJVKbeggfh11/03/2025 1:16 PM EST 34 weeks gestation of ([facility]) Third trimester ([facility]) US OB BPP W NON-ORFIQS3105/27/2025 10:21 AM EST US OB BPP W NON-OVSYDW4305/22/2025 12:44 PM EST US OB BPP W NON-FVREAU7305/15/2025 3:36 PM EST POCT URINALYSIS EWLFLQNOUambavw77/19/2025 1:32 PM EST 32 weeks gestation of ([facility]) Third trimester ([facility]) POCT URINALYSIS TGMCQSWGBonbsxh16/05/2025 1:42 PM EST 30 weeks gestation of ([facility]) US OB FOLLOW UP TRANSABDOMINAL WUIZXPNPArffmdj55/05/2025 1:17 PM EST size inconsistent with dates ([facility]) CA ECHO DOPPLER ZRLAKMLP54/29/2025 6:12 PM EDT ECG 12-LEAD04/22/2025 8:28 AM EDT POCT URINALYSIS YEHDQJBVFwxckam15/22/2025 1:16 PM EDT 28 weeks gestation of ([facility]) ALL CBC WITH AUTO UPROLpsejnq80/08/2025 9:19 AM EDT GLUCOSE 1 MTPEOhesuxx70/08/2025 9:19 AM EDT POCT URINALYSIS KOOHONQJJfksgnd69/24/2025 2:39 PM EDT Second trimester ([facility]) US OB LIMITED 1+ EWWXIVUSuojgnf32/24/2025 2:17 PM EDT Encounter for follow-up ultrasound of anatomy ([facility]) from Last 3 Months Results [...] Location / LateralityCollection Method / VolumeCollection TimeReceived OhdcOlhbb23/17/2025 11:59 AM EST Narrative Authorizing ProviderResult TypeResult StatusCorey Angel DOPOINT OF CARE TEST ENTER/EDIT ORDERABLESFinal Result * US OB BPP W NON-STRESS (06/05/2025 4:51 PM EST) Only the most recent of4 resultswithin the time period is included. Anatomical RegionLateralityModalityOtherSpecimen (Source)Anatomical Location / LateralityCollection Method / VolumeCollection TimeReceived Time06/05/2025 4:51 PM EST Narrative 06/05/2025 4:54 PM EST [facility] ?[address] ? [place] [address] ? Ultrasound Report ? Signed ? Patient: NATHANIEL TAYLOR ?MR#: [id number] ?? : 1995 ?Acct:[id number] ?? Age/Sex: 29 / F ?ADM Date: 06/05/25 ?? Loc: US ? Attending Dr: Lora Ortiz D.O. ? Ordering Physician: Lora Ortiz D.O. ?? Date of Service: 06/05/25 ?? Procedure(s): US OB BPP w non-stress ?? Accession Number(s): [id number] ? cc: Kelly Mckenzie TRAIN BRAKEMAN; Lora Ortiz D.O. ? [facility] ? [address] ? [place] [address] ? Patient Name: ?? NATHANIEL TAYLOR ? MRN: [facility]:[id number] ? date: 1995 ?Sex: F ?? Assigned Patient Location: [facility] ?? Current Patient Location: ? Accession/Order Number: [id number] ?? Exam Date: 06/05/2025 ??15:11 ?Report Date: [...] M.D. ??06/05/2025 4:51 PM ? Dictation Location: [facility]--23 ? Electronically authenticated by: [id number] ??Y ?? Date: 06/05/2025 ??16:51 ? Dictated By: ?Mateus Momin M.D. ? Signed By: ?06/05/25 1654 ? DD/ 1651 ? TD/TT: ? Director Specialty: Procedure Note Radiology, Radiologist, - 06/05/2025 [place] [address] Ultrasound Report Signed Patient: NATHANIEL TAYLOR AMR#: [id number] : 1995Acct:[id number] Age/Sex: 29 / FADM Date: 06/05/25 Loc: US Attending Dr: Lora Ortiz D.O. Ordering Physician: Lora Ortiz D.O. Date of Service: 06/05/25 Procedure(s): US OB BPP w non-stress Accession Number(s): [id number] cc: Kelly Mckenzie TRAIN BRAKEMAN; Lora Ortiz D.O. [place] [address] Patient Name: NATHANIEL TAYLOR MRN: [id number]:[id number] date: 1995 Sex: F Assigned Patient Location: [facility] Current Patient Location: Accession/Order Number: [id number] Exam Date: 06/05/2025 15:11 Report Date: 06/05/2025 [...] Momin M.D. 06/05/2025 4:51 PM Dictation Location: [place] [address] Electronically authenticated by: [id number] Y Date: 6:51 Dictated By: Mateus Momin M.D. Signed By:06/05/25 1654 DD/ 165 TD/TT: Director Specialty: Authorizing ProviderResult TypeResult StatusCorey Angel DOCLINISYNC IMAGINGFinal [...] EDT Narrative 04/22/2025 6:13 PM EDT [facility] ?[address] ? [place] [address] ? Cardiology Report ? Signed ? Patient: NATHANIEL TAYLOR ?MR#: [id number] ?? : 1995 ?Acct:[id number] ?? Age/Sex: 29 / F ?ADM Date: 04/22/25 ?? Loc: CARD ? Attending Dr: Lora Ortiz D.O. ? Ordering Physician: Lora Ortiz D.O. ?? Date of Service: 04/22/25 ?? Procedure(s): CA echo doppler complete ?? Accession Number(s): [id number] ? cc: Kelly Mckenzie TRAIN BRAKEMAN; Lora Ortiz D.O. ? Patient Name: ? NATHANIEL TAYLOR ? MR#: [id number] ? : 1995 ? Exam Date: 04/22/2025 [...] ? 2.50 cm2, 2.50 cm2 ?? Deceleration [place]: ? Pressure Half-Time: ? Peak Velocity(Antegrade Flow): [...] on 04/22/2025 at 18:12 ? Dictated By: ?Veróinca Lopez M.D. ? Signed By: ?04/22/25 1813 ? DD/ 1812 ? TD/TT: ? Director Specialty: Procedure Note Radiology, Radiologist, - 04/22/2025 [place] [address] Cardiology Report Signed Patient: NATHANIEL TAYLOR AMR#: [id number] : 1995Acct:[id number] Age/Sex: 29 / FADM Date: 04/22/25 Loc: CARD Attending Dr: Lora Ortiz D.O. Ordering Physician: Lora Ortiz D.O. Date of Service: 04/22/25 Procedure(s): CA echo doppler complete Accession Number(s): [id number] cc: Kelly Mckenzie TRAIN BRAKEMAN; Lora rOtiz D.O. Patient Name: NATHANIEL TAYLOR MR#: [id number] : 1995 Exam Date: 04/22/2025 Ordering Doctor: [...] Area (VTI): 2.50 cm2, 2.50 cm2 Deceleration [place]: Pressure Half-Time: Peak Velocity(Antegrade Flow): 1.55 m/s [...] Lopez M.D. Signed By:04/22/251812 DD/ 11 TD/TT: Director Specialty: Authorizing ProviderResult TypeResult StatusCorey Angel DOCLINISYNC IMAGINGFinal Result * ECG 12-LEAD (04/22/2025 8:28 AM EDT)Anatomical RegionLateralityModalityOther Specimen (Source)Anatomical Location / LateralityCollection Method / Volume Collection TimeReceived Time04/22/2025 8:28 AM EDT Narrative 04/22/2025 6:39 PM EDT [facility] ?[address] ? [place] [address] ? Electrocardiograph Report ? Signed ? Patient: CLAUDIA,NATHANIEL A ?MR#: [id number] ?? : 1995 ?Acct:[id number] ?? Age/Sex: 29 / F ?ADM Date: 10/29/25 ?? Loc: CARD ? Attending Dr: Lora Ortiz D.O. ? Ordering Physician: Lora Ortiz D.O. ?? Date of Service: 04/22/25 ?? Procedure(s): ECG 12 lead ?? Accession Number(s): [id number] ? cc: ?[facility] ? Test Date: ?2025-04-22 ?? Pat Name: ? NATHANIEL TAYLOR ?Department: ? Room: ? - ?? Gender: ? Female ? Video Tape Duplicator: ? : ?1995 ? Requested By: LORA ORTIZ ?? Order Number: [id number] ?Reading MD: ?? SLY HERRERA ? Measurements ?? Intervals ?[place] ? Rate: ? 84 ? P: ?22 ?? MO: ? 139 ?QRS: ?88 ?? QRSD: ? 94 ? T: ?54 ?? QT: ? 361 ? QTc: ?429 ? Interpretive Statements ?? SINUS RHYTHM ?? No previous ECG available for comparison ?? Electronically Signed On 04-22-2025 18:39:57 EDT by SLY HERRERA ? Dictated By: ?Sly Herrera M.D. ? Signed By: ?10/29/25 1839 ?04/22/25 1839 ? DD/ 0828 ? TD/TT: ? Director Specialty: Procedure Note Radiology, Radiologist, - 04/22/2025 [place] [address] Electrocardiograph Report Signed Patient: NATHANIEL TAYLOR AMR#: [id number] : 1995Acct:[id number] Age/Sex: M Date: 04/22/25 Loc: CARD Attending Dr: Lora Ortiz D.O. Ordering Physician: Lora Ortiz D.O. Date of Service: 04/22/25 Procedure(s): ECG 12 lead Accession Number(s): [id number] cc: [facility] Test Date: 2025-04-22 Pat Name: NATHANIEL TAYLOR Department: Room: - Gender: Female Video Tape Duplicator: : 1995 Requested By: LORA ORTIZ Order Number: [id number] Reading MD: SLY HERRERA Measurements Intervals [place] Rate: 84 P: 22 MO: 139 QRS: 88 QRSD: 94 T: 54 QT: 361 QTc: 429 Interpretive Statements SINUS RHYTHM No previous ECG available for comparison Electronically Signed On 04-22-2025 18:39:57 EDT by SLY HERRERA Dictated By: Sly Herrera M.D. Signed By:04/22/25183804/22/251838 DD/ 7 TD/TT: Director Specialty: Authorizing ProviderResult TypeResult StatusCorey Angel BAUER IMAGINGFinal Result * GLUCOSE 1 HOUR (04/01/2025 9:19 AM EDT)ComponentValueRef RangeTest Method Analysis TimePerformed AtPathologist SignatureGLUCOSE 1 HRAJ627<130 mg/dLTBH Specimen (Source)Anatomical Location / LateralityCollection Method / Volume Collection TimeReceived Time04/01/2025 9:19 AM EDT1 9:27 AM EDT Narrative [facility]IN[facility]NC - 04/01/2025 10:15 AM EDT Authorizing ProviderResult TypeResult StatusMarge Marita NPLAB BLOOD ORDERABLESFinal ResultPerforming OrganizationAddressCity/State/ZIP CodePhone Number [facility] * (ABNORMAL) ALL CBC WITH AUTO DIFF (04/01/2025 9:19 AM EDT)ComponentValueRef RangeTest MethodAnalysis TimePerformed AtPathologist SignatureTBH WBC11.8(H) 4.0 - 11.0 10 3/uLTBHTBH RBC3.81(L)4.20 - 5.40 10 6/uLTBHTBH HGB10.9(L)12.0 - 16.0 g/dLTBHTBH HCT33.8(L)36.0 - 48.0 %TBHTBH MCV88.781.0 - 99.0 fLTBHTBH MCH 28.626.7 - 34.0 pgTBHTBH MCHC32.229.9 - 35.2 g/dLTBHTBH RDW12.611.0 - 15.0 % TBHTBH YBB817133 - 450 10 3/uLTBHTBH MPV11.09.5 - 13.5 [...] StatusKrraquela Marita NPCLINISYNCFinal ResultPerforming OrganizationAddressCity/State/ZIP CodePhone Number [facility] * US OB limited 1+ [...] Date Unallocated, Noms Provider, [address] [place] [address] PCP - GeneralFamily Wvltmgzh21/14/24 Treasure England DO [address] [place] [address] Referring CmetjabwqIhyihucoy95/14/24
[2025-06-11 16:06] VITALS: BP 132/70; PULSE 99
[2025-06-11 16:14] LABS: Glucose Urine UA NEGATIVE (NEGATIVE)
[2025-06-11 16:33] LABS: Cast Seen? NONE SEEN #/LPF (NONE SEEN); Crystals Seen? None Seen #/HPF (None Seen); Urine Culture Indicated YES-FRMC
--- NOTE | 2025-06-11 16:40 | US_ITS ---
[place] [address] Patient Name: NATHANIEL TAYLOR MRN: [id number] date: 1995 Sex: F Assigned Patient Location: LAB Current Patient Location: LAB Accession/Order Number: [id number] Exam Date: 06/11/2025 17:41 Report Date: 06/11/2025 18:18 At the request of: LORA TUBBS DO Procedure: US OB BPP w non-stress US OB BPP w non-stress 06/11/2025 6:13 PM SIGNS AND SYMPTOMS: ^09/28/2024 ^Leaking of fluid ^Y PROTOCOL: Transabdominal sonographic imaging of the gravid uterus COMPARISON: None FINDINGS: Estimated gestational age: 36 weeks 4 days heart rate: 147 bpm Amniotic fluid index: 13.63 cm. The deepest vertical pocket measures 4.5 cm. Biophysical profile: breathing movements: 2/2 Gross body movements: 2/2 tone: 2/2 Amniotic fluid volume: 2/2 US/US OB BPP w non-stress IMPRESSION: Biophysical profile score: 8/8 Impression dictated by: aMteus Momin M.D. 06/11/2025 6:18 PM Dictation Location: [place] Electronically authenticated by: [id number] Y Date: 06/11/2025 18:18
== END 2025-06-11 18:05 | disposition home or self-care (01) ==
LOC: FBCO 15:50 → FBC 15:57
PROVIDERS: PCP Nurse Practitioner Family; Visit Provider Obstetrics & Gynecology
DX: O26.893 Other specified pregnancy related conditions, third trimester (principal); Z3A.36 36 weeks gestation of pregnancy
CPT/HCPCS: 59025; 76818; 81001; 84112; 87086

== ENCOUNTER 2025-06-15 05:00 | Inpatient (IN) | payer OTHER, SELFPAY ==
--- OUTSIDE RECORDS SUMMARY | 2025-06-01 08:00 | XMS_ITS | Encounter Summary ---
Author Organization [facility] Address [address] [facility] [place] [address] Care Team Providers Care Food Production Worker Name Role Phone Unallocated, Noms Provider Primary Care Provi aristeo Treasure England DO Unavailable [phone] Encounter Details DateTypeDepartmentCare Team (Latest Contact Info)Kikphzoajsp80/08/2025 8:00 AM ESTAncillary Procedure NATALIE [place] OBGYN [address] [place] [address] [place] [address] Excessive growth affecting management of , antepartum, single or unspecified fetus ([facility]) Social History Tobacco UseTypesPacks/DayYears UsedDateSmoking Tobacco: NeverSmokeless Tobacco: NeverAlcohol UseStandard Drinks/WeekCommentsYes0 (1 standard drink = 0.6 oz pure alcohol)One drink per monthEstimated Date of DeliveryCommentsYes 6Based on last menstrual period of 09/28/2024Sex and Gender Information ValueDate RecordedSex Assigned at BirthNot on fileLegal MqtAsjxth50/15/2023 8:11 PM EDTGender IdentityNot on fileSexual OrientationNot on filedocumented as of this encounter Plan of Treatment Not on file documented as of this encounter Procedures Procedure NamePriorityDate/TimeAssociated DiagnosisCommentsUS OB FOLLOW UP TRANSABDOMINAL FFBRJOLVAjdnuzo82/08/2025 8:18 AM EST Excessive growth affecting management of , antepartum, single or unspecified fetus ([facility]) documented in this encounter Results * US OB follow up transabdominal approach (06/01/2025 8:18 AM EST)Anatomical RegionLateralityModalityBodyUltrasoundSpecimen (Source)Anatomical Location / LateralityCollection Method / VolumeCollection TimeReceived Time06/11/2025 4:16 PM EST Impressions 06/11/2025 4:20 PM EST SINGLE LIVE INTRAUTERINE CORRESPONDING TO APPROXIMATELY 37 WEEKS 4 DAYS WITH AN EXPECTED DUE DATE OF JUNE 18, 2025. NO GROSS ABNORMALITIES IDENTIFIED, WITHIN THE LIMITS OF THE STUDY. ELECTRONICALLY SIGNED BY: Asha Lizarraga DO Narrative 06/11/2025 4:20 PM EST US OB FOLLOW UP TRANSABDOMINAL APPROACH: 06/01/2025 7:57 AM CLINICAL HISTORY growth, large for gestational age COMPARISON: April 29, 2025 Transabdominal ultrasound of the gravid uterus was performed. FINDINGS: A single live intrauterine is noted in cephalic position. cardiac activity measures approximately 141 beats per minute. The amniotic fluid volume appears within normal limits for gestation. The CLAUDE is 9.51 cm The following measurements were obtained: BPD 9.4 cm, HC 33.78 cm, AC 33.14 cm, FL 7.03 cm, which corresponds to an aggregate gestational age of 37 weeks 4 days with an expected due date of June 18, 2025.. Estimated weight is 3125+/-468.75 g. This fetus is in the 93.3 percentile.. Procedure Note Asha Lizarraga DO - 06/11/2025 US OB FOLLOW UP TRANSABDOMINAL APPROACH: 06/01/2025 7:57 AM CLINICAL HISTORY growth, large for gestational age COMPARISON: April 29, 2025 Transabdominal ultrasound of the gravid uterus was performed. FINDINGS: A single live intrauterine is noted in cephalic position. cardiac activity measures approximately 141 beats per minute. The amniotic fluid volume appears within normal limits for gestation. TheAFI is 9.51 cm The following measurements were obtained: BPD 9.4 cm, HC 33.78 cm, AC33.14 cm, FL 7.03 cm, which corresponds to an aggregate gestational age of37 weeks 4 days with an expected due date of June 18, 2025.. Estimated weight is 3125+/-468.75 g. This fetus is in the 93.3percentile.. IMPRESSION: SINGLE LIVE INTRAUTERINE CORRESPONDING TO APPROXIMATELY 37 WEEKS4 DAYS WITH AN EXPECTED DUE DATE OF JUNE 18, 2025. NO GROSS ABNORMALITIES IDENTIFIED, WITHIN THE LIMITS OF THE STUDY. ELECTRONICALLY SIGNED BY: Asha Lizarraga DO Authorizing ProviderResult TypeResult StatusCorey Angel DOIMG OB US PROCEDURES Final Result documented in this encounter Visit Diagnoses Diagnosis Excessive growth affecting management of , antepartum, single or unspecified fetus ([facility]) documented in this encounter Care Teams Team MemberRelationshipSpecialtyStart DateEnd Date Unallocated, Noms Provider, [address] [place] [address] PCP - GeneralFamily Jrizyobx71/14/24 Treasure England DO [address] [place] [address] Referring QclepuncaMhkgesxvh81/14/24documented as of this encounter
--- OUTSIDE RECORDS SUMMARY | 2025-06-10 11:20 | XMS_ITS | Encounter Summary ---
Author Organization [facility] Address [address] [facility] [place] [address] Care Team Providers Care Manager Respiratory Care Name Role Phone Unallocated, Noms Provider MD Primary Care Provi aristeo TomásTreasure leach DO Unavailable [phone] Reason for Visit * ReasonCommentsRoutine Visit Encounter Details DateTypeDepartmentCare Team (Latest Contact Info)Samobusoadb57/17/2025 11:20 AM ESTRoutine NATALIE [place] OBGYN [address] [place] [address] Junito Ortiz DO [address] [place], [place] [id number] Third trimester ([facility]); 36 weeks gestation of ([facility]) Social History Tobacco UseTypesPacks/DayYears UsedDateSmoking Tobacco: NeverSmokeless Tobacco: NeverAlcohol UseStandard Drinks/WeekCommentsYes0 (1 standard drink = 0.6 oz pure alcohol)One drink per monthEstimated Date of DeliveryCommentsYes 6Based on last menstrual period of 09/28/2024Sex and Gender Information ValueDate RecordedSex Assigned at BirthNot on fileLegal XbgOamccz43/15/2023 8:11 PM EDTGender IdentityNot on fileSexual OrientationNot on filedocumented as of this encounter Last Filed Vital Signs Vital SignReadingTime TakenCommentsBlood Kqlukwzw081/7412/ 11:51 AM EST Pulse--Temperature--Respiratory Rate--Oxygen Saturation--Inhaled Oxygen Concentration--Sezopl085 kg (230 lb)06/10/2025 11:51 AM ESTHeight--Body Mass Index34.9707 1:31 PM EDTdocumented in this encounter Progress Notes * Saumya Simmons, LYNN - 06/10/2025 11:20 AM EST Reason for Appointment: Patient ID: Kat [...] 25 mg, Daily ALLERGIES Allergies Allergen Reactions Dust Mite Extract Other Reaction(s): Unknown Reaction Pollen Extract Other Reaction(s): Unknown Reaction PROBLEMS Active Ambulatory Problems Diagnosis Date Noted Positive urine test ([facility]) 12/03/2024 Resolved Ambulatory Problems Diagnosis Date [...] appearance. She is well-developed. Genitourinary: Vulva normal. Cardiovascular: Rate and Rhythm: Normal rate and [...] nursing note reviewed. Exam conducted with a exercise specialist present. Vitals: Estimated body mass index is 34.97 kg/m?? as calculated from the following: Height as of 01/23/24: 5' 8 . Weight as of this encounter: 230 lb. BP: 124/74 Patient's last menstrual period was 09/28/2024. Assessment/Plan ICD-10-CM 1. Third trimester ([facility]) Z34.93 POCT urinalysis dipstick manually resulted CULTURE, GROUP B STREP WITH SUSCEPTIBLITY CULTURE, GROUP B STREP WITH SUSCEPTIBLITY 2. 36 weeks gestation of ([facility]) Z3A.36 Assessment/Plan Patient is doing well but has complaints of being tired and having maternal discomfort due to . Patient verbalized frequent movement and was instructed to perform fetalkick counts three times per day. labor precautions were given, LARC consent was signed/declined, and GBS was obtained. Cervical check was performed and patient is 2cm dilated. Pt to be induced at 0500 on 06/15/25, with pitocin, pt signed IOL consents. Orders Placed This Encounter Procedures CULTURE, GROUP B STREP WITH SUSCEPTIBLITY POCT urinalysis dipstick manually resulted Follow Up: Patient is to return to office in 1 week for routine OB appointment Documented by Saumya Simmons LPN on behalf of: Junito Ortiz DO documented in this encounter Plan of Treatment NameTypePriorityAssociated DiagnosesOrder ScheduleCULTURE, GROUP B STREP WITH SUSCEPTIBLITYLabRoutine Third trimester ([facility]) Expected: 06/10/2025, Expires: 06/10/2026documented as of this encounter Procedures Procedure NamePriorityDate/TimeAssociated DiagnosisCommentsPOCT URINALYSIS YGGETTKIGpxdsfi23/17/2025 11:59 AM EST Third trimester ([facility]) documented in this encounter Results * (ABNORMAL) POCT urinalysis dipstick manually resulted (06/10/2025 11:59 AM EST)ComponentValueRef RangeTest MethodAnalysis TimePerformed AtPathologist SignatureColor, UAYellowClarity, UAClearGlucose, UANegativeNegative - 2000(110) ++++ mg/dLBilirubin, UANegativeNegative - 4(70) +++ mg/dLKetones, UA NegativeNegative - 160(16) ++++ mg/dLSpec Grav, UA1.0151 - 1.03Blood, UA NegativeNegative - 50 Cj/mcLpH, UA6.05 - 9Protein, UA1+Negative - 2000(20) ++++ mg/dLUrobilinogen, UA1.00.2 - 12 mg/dLLeukocytes, UA1+Negative - 500+++ Cosmo/mcLNitrite, UANegativeNegative - PositiveSpecimen (Source)Anatomical Location / LateralityCollection Method / VolumeCollection TimeReceived Time Urine06/10/2025 11:59 AM EST Narrative Authorizing ProviderResult TypeResult StatusCorejordyn Ortiz DOPOINT OF CARE TEST ENTER/EDIT ORDERABLESFinal Result documented in this encounter Visit Diagnoses Diagnosis Third trimester ([facility]) state, incidental 36 weeks gestation of ([facility]) documented in this encounter Care Teams Team MemberRelationshipSpecialtyStart DateEnd Date Unallocated, Noms Provider, [address] [place] [address] PCP - GeneralFamily Jlgxjmll15/14/24 Treasure England DO [address] [place] [address] Referring QuujgtcjgLjlxgbocx52/14/24documented as of this encounter
--- OUTSIDE RECORDS SUMMARY | 2025-06-11 19:29 | XMS_ITS | Continuity of Care Document ---
Author Organization [facility] Address [address] [place] [address] Phone Care Team Providers Care Consulting Services Manager Name Role Phone Kelly Mckenzie APRN Primary Care Provider Marge Kirkland APRN Attending Provider Junito Ortiz DO Attending Provider Care Teams Patient Care Team Team Status: Active Member Role/Relationship Status Dates Treasure England DO Specialist Active Jesus Flores Care ProviderActive Visit Care Team Team Status: Active Member Role/Relationship Status Dates Kelly Mckenzie APRN Primary Care Provider Active Start: April 01, 2025 Marge Kirkland APRN SHOVEL LOADER OPERATOR-CAttending ProviderActiveStart: April 01, 2025 Visit Care Team Team Status: Active Member Role/Relationship Status Dates Kelly Mckenzie APRN Primary Care Provider Active Start: May 20, 2025 Marge Kirkland APRN SHOVEL LOADER OPERATOR-CAttending ProviderActiveStart: May 20, 2025 Patient Care Team Team Status: Active Member Role/Relationship Status Dates Kelly Mckenzie APRN Primary Care Provider Active Start: June 11, 2025 Junito Ortiz DOAttending ProviderActiveStart: June 11, 2025 Chief Complaint and Reason for Visit Chief Complaint Admit Date C only, pelvic pain affecting May 20, 2025 8:45am Allergies, Adverse Reactions, Alerts Allergen Type Severity Reaction Last Updated Verified Status house dust Allergy Unknown Unknown Reaction December 11:31am Yes Active pollen extracts Allergy Unknown Unknown Reaction Dec 11:31am Yes Active Social History Smoking Status Status Start Date End Date Date of Observa tion Never smoked tobacco (finding) September 03, 2023 2:12pm Observation Status Observation Response Date of Response Legal Sex [facility] (finding) [facility] 1995 Family History Relationship Condition Age at Onset Recorded Date/T lauro aunt Malignant neoplasm of breast Unknown brotherFamily history of kidney diseaseUnknowngrandparentDiabetes mellitus UnknownDeceasedUnknowngrandparentDeceasedUnknowngrandparentDeceasedUnknown grandparentMalignant neoplasm of breastUnknownDeceasedUnknownmotherHeart disease UnknownsisterHistory of malignant neoplasm of cervixUnknownfatherMeniere's diseaseUnknown Problems Active Problems Problem Diagnosis/Recorded Date Onset Date Status C omments Anxiety September 03, 2023 1:12pm Unknown Active DepressionMar 2023 1:12pmUnknownActiveSeasonal allergiesMar 2023 1:12pmUnknownActiveMigrainesMarch 2023 1:12pmUnknownActiveElevated cortisol levelMar 2023 1:12pmUnknownActiveElevated DHEACity Hospital 2023 1:12pmUnknownActiveCyst of pineal glandSeptencompass health [facility] 2023 11:44amUnknownActive NEURO- MRI repeat Marcid refluxApril 2023 8:04amUnknownActiveNausea November 28, 2023 7:57amUnknownActive Medications Medication Status Dose Units Route Directions Qty Days Refills S tart Date Stop Date End Date Reason(s) Instructions Adherence Omeprazole 40 mg capsule,delayed release(DR/EC) Discontinued 40 MG PO Daily 90 90 1 September 03, 2023 1:16pm November 28, 2023 7:59amBupropion Hcl (Wellbutrin Xl) 300 mg tablet extended release 24 uxNnmtjckupxvz777RSJDPwldi07214Chtxa 2023 1:[facility]pm[facility] 2023 10:41amRizatriptan 10 mg zqceoyHasbktilghuj73WBTXTCLBW 2-4 HOURS as needed for migraine aostodjq192Ivogmmbxp 2023 11:00pmSeptember 2023 11:44amdo not exceed 3 doses per 24 hrsRizatriptan 10 mg euljttKhdeta35ADBHHATCI 2-4 HOURS as needed for migraine rrprwquc175Gljvmpxfl 3rd, 2024 11:43amNEUROLOGYUnknown Ondansetron Hcl 4 mg fevqbkBmvwfhxacgqa5APRFXvcitInogk 2023 11:00pmJuly 2023 11:37amAtogepant 60 mg mkkmdxNbtprppqmhwf06XPHXHnegxBzqno 2023 11:00pmMar 2023 10:04amBupropion Hcl (Wellbutrin Xl) 300 mg tablet extended release 24 mtDnjctiiytebj759YZNELuilqTevmm 2023 11:00pmCity [facility] 2023 1:17pmRizatriptan 5 mg opwbqpRzemohrsejmo7FBTKIspji as neededCity Hospital 2023 11:00pmJune 2023 7:59ammagnesiumDiscontinuedKlickitat Valley Health 2023 11:00pmJune 2023 7:59amOmeprazole 40 mg capsule,delayed release(DR/EC) Ejuruhucsqdp97MYGCWgayyDbhvx 2023 11:00pmCity [facility] 2023 1:16pm Ondansetron Hcl 4 mg bypbspKskpdo7GPUUXblwf as neededN[facility] 2023 11:36am Unknownfexofenadine (Blanche Allergy)DiscontinuedPODaClark [facility] 2023 11:00pm November 28, 2023 7:59amBupropion Hcl 150 mg tablet extended release 24 hr Bvzgsthmksss408UYPECmict01430Ebgrx 2023 10:41amJune 2023 7:59am fexofenadine (Blanche Allergy)ActivePOas neededJuly 2023 11:00pmUnknown magnesiumActivePOJuly 2023 11:00pmUnknownAmoxicillin-Pot Clavulanate 875- 125 mg eixjqnXhwahm5HKCZTZyybv qgxqc78301Mvti 2023 11:00pmUnknown Fluconazole 150 mg jslcicQkmmsa215ZFLTU2W77Hhkw 2023 11:00pmUnknown Immunizations Immunization Event Date Not Given Reason Dose Number Worship Leader Lot Number Reason(s) Given Vaccine Information Statement (VIS) Detail Administration Location Tetanus, Diphtheria adult, 5 Lf pres free abs [place] 2019 Relevant Diagnostic Tests and/or Laboratory Data Laboratory Results Test Collection Date/Time Result Date/Time Result Interpretation Reference Range Result Comment Performing Site Basophils # (Auto) April 01, 2025 8:19am March 8t 2024 8:19am 0.1 10 3/uL 0.0-0.1Glucose 1 HourOct2024 8:19amOct2024 8:85dd434 mg/dL <130Urine Microscopic ReviewDecember 2024 4:00pmDecember 2024 4:00pm YESFetal Membranes Rupture (PAMG-1)June 11, 2025 4:05pmDecember 2024 4:05pmNEGATIVENEGATIVEBasophils (%) (Auto)April 01, 2025 8:19amOct2024 8:19am0.5 %0.2-2.0Urine BilirubinDeceer 2024 4:00pmDecember 2024 4:00pmNEGATIVENEGATIVEEosinophils # (Auto)April 01, 2025 8:19amOct2024 8:19am0.2 10 3/uL0.0-0.7Urine Occult BloodDecetuba city regional health care corporation 2024 4:00pm June 11, 2025 4:00pmNEGATIVENEGATIVEEosinophils (%) (Auto)April 01, 2025 8:19amOct2024 8:19am1.3 %0.9-7.0Urine AppearanceDecember 2024 4:00pmDecember 2024 4:00pmCLEARCLEARHematocritOct2024 8:19amOct2024 8:19am33.8 %Below low xruufd40.0-48.0Urine ColorDecember 2024 4:00pmDecember 2024 4:00pmLT. YELLOWYELLOWHemoglobinOct2024 8:19amOctober 2024 8:19am10.9 g/dLBelow low zweqxi18.0-16.0Urine Glucose (UA)June 11, 2025 4:00pmDecemb2024 4:00pmNEGATIVE mg/dL NEGATIVEImmature Granulocyte # (Auto)April 01, 2025 8:19amOctober 2024 8:19am0.10 10 3/uLAbove high normal0.00-0.03Urine KetonesDnovant health [facility]2024 4:00pmDecember 2024 4:00pmNEGATIVE mg/dLNEGATIVEImmature Granulocyte % (Auto)April 01, 2025 8:19amOct2024 8:19am0.8 %Above high normal 0.0-0.5Urine Leukocyte EsteraseJune 11, 2025 4:00pmDece2024 4:00pmTRACEAbnormal (applies to non-numeric results)NEGATIVELymphocytes # (Auto) April 01, 2025 8:19amOct2024 8:19am1.5 10 3/uL1.2-3.8Urine Nitrite June 11, 2025 4:00pmDecemb2024 4:00pmNEGATIVENEGATIVELymphocytes (%) (Auto)April 01, 2025 8:19amOct2024 8:19am12.6 %Below low normal 20.5-60.0Urine pHDece2024 4:00pmDece2024 4:00pm6.05.0-9.0 Mean Corpuscular HemoglobinOct2024 8:19amOct2024 8:19am28.6 pg26.7-34.0Urine ProteinDece2024 4:00pmDeceer 2024 4:00pm NEGATIVE mg/dLNEG/TRACEMean Corpuscular Hemoglobin ConcentOct2024 8:19amOct2024 8:19am32.2 g/dL29.9-35.2Urine Specific GravityDece2024 4:00pmDecember 2024 4:00pm1.0101.005-1.025Mean Corpuscular VolumeOct2024 8:19amOct2024 8:19am88.7 fL81.0-99.0Urine UrobilinogenDecember 2024 4:00pmDecember 2024 4:00pm0.2 EU/dL0.2-1.0 Monocytes # (Auto)April 01, 2025 8:19amOct2024 8:19am0.6 10 3/uL 0.3-0.8Monocytes (%) (Auto)April 01, 2025 8:19amOct2024 8:19am5.2 % 1.7-12.0Mean Platelet VolumeOct2024 8:19amOct2024 8:19am11.0 fL9.5-13.5Neutrophils # (Auto)April 01, 2025 8:19amOct2024 8:19am 9.4 10 3/uLAbove high normal1.4-6.5Neutrophils (%) (Auto)April 01, 2025 8:amOct2024 8:19am79.6 %Above high iyjtyc64.0-75.0Platelet Count April 01, 2025 8:amApril 01, 2025 8:26hb049 10 3/lC112-787Xuu Blood CountApril 01, 2025 8:19amOct2024 8:19am3.81 10 6/uLBelow low normal4.20-5.40Red Cell Distribution WidthOct2024 8:19amOct2024 8:19am12.6 %11.0-15.0Corrected White Blood CountOct2024 8:19am April 01, 2025 8:19am11.8 10 3/uLAbove high normal4.0-11.0 Advance Directives Advance Directive Response Recorded Date/ Time Advance Directives Yes July 1:59pm Insurance Providers Guarantor Kat Bob Address [address] [place] [id number] Info.Home Phone: Coverage Status Update:2025 Payer Group Member ID Coverage Type Subscriber Relationship to Subscriber Effective Date Expiration Date [employer] Unknown Id: [id number] Encounters Encounter Location(s) Arrival/Admit Date Discharge/Departure Date Discharge/Departure Disposition Provider(s) Non-patient / Non-visit -[facility] O ctober 2024 9:19am Marge Kirkland APRN CNPRegistered Recurring-[facility] TherapyNovember 2024 8:45amMarge Kirkland APRN CNPNon-patient / Jty-iybjx-[facility] CoDecember 2024 4:00pmNanciy Angel Plan of Treatment Future Tests Future scheduled test information is unavailable Pending Tests Test Name Ordered Date Scheduled Date Urine Culture June 11, 2025 4:00pm Future Visits Future appointment information is unavailable Future Procedures Procedure Name Ordered Date Scheduled Date Urine Culture June 11, 2025 9:03pm Decem dionne 2024 4:00pm Future Medications Future medication information is unavailable Patient Instructions Patient instructions are unavailable
[2025-06-15] VITALS (51 sets, daily range): BP systolic 69–137; BP diastolic 37–77; PULSE 71–116; TEMP 36.7–37.3
--- OUTSIDE RECORDS SUMMARY | 2025-06-15 05:05 | XMS_ITS | Clinical Summary ---
Author Organization [facility] Healthcare Address [address] [place] [address] Care Team Providers Care Informaticist Name Role Phone Unallocated, [facility] Provider MD Primary Care Provi aristeo Treasure England DO Unavailable [phone] Allergies Active AllergyReactionsCriticalityNoted DateCommentsDust Mite Muvkkap5812/25/2023 Other Reaction(s): Unknown Reaction Pollen Byfsrsp1509/19/2023 Other Reaction(s): Unknown Reaction Medications MedicationSigDispense QuantityRefillsLast FilledStart DateEnd DateStatus magnesium 100 MG tablet 3Active Probiotic Product (PROBIOTIC ADVANCED PO) ProbioticActive pyridoxine (Vitamin B-6) 25 MG tablet Take 25 mg by mouth DailyActive Doxylamine Succinate, Sleep, (UNISOM PO) Take by mouthActive ondansetron (Zofran) 4 MG tablet Indications:Nausea and vomiting in ([facility])Take 1 tablet (4 mg) by [...] 10 MG tablet Indications:Nausea and vomiting in ([facility])TAKE 1 TABLET BY MOUTH IN MORNING,AT NOON,IN EVENING 30 MINUTES PRIOR TO MEALS NEEDED FOR NAUSEA 90 tablet 5Active metoclopramide (Reglan) 10 MG tablet Indications:Nausea and vomiting in ([facility])TAKE 1 TABLET BY MOUTH IN MORNING,AT NOON,IN EVENING 30 MINUTES PRIOR TO MEALS NEEDED FOR NAUSEA 90 tablet Discontinued terconazole (Terazol 7) 0.4 % vaginal cream Indications:Yeast infectionInsert 1 applicator into the vagina at bedtime for 7 days 45 g Expired Active Problems ProblemNoted DateDiagnosed DatePositive urine test ([facility])12/03/2024 Estimated Date of RjhajhftMjaibmheXee91/11/2026ased on last menstrual period of 09/28/2024 Encounters DateTypeDepartmentCare IoyiJpsflyvcxnw50/18/2025External Result Encounter NOMS External Department Unsolicited Lora Ortiz, DO 06/11/2025linisync Result Encounter NOMS External Department Unsolicited Lora Ortiz, DO 06/11/2025linisync Result Encounter NOMS External Department Unsolicited Lora Ortiz, DO 06/10/2025 11:20 AM ESTRoutine [facility] [address] [place] [address] Lora Ortiz, DO Third trimester ([facility]); 36 weeks gestation of ([facility])06/10/2025bstract [facility] [address] [place] [address] Lora Ortiz, DO 06/10/2025amboo flowsheet [facility] [address] [place] [address] Lora Ortiz, DO 06/05/2025linisync Result Encounter NOMS External Department Unsolicited Lora Ortiz, DO 06/01/2025 8:00 AM ESTAncillary Procedure [facility] [address] [place] [phone] Excessive growth affecting management of , antepartum, single or unspecified fetus ([facility])05/27/2025 1:00 PM ESTRoutine [facility] [place] [address] Lora Ortiz, DO 34 weeks gestation of ([facility]); Third trimester ([facility]); Yeast infection; Excessive growth affecting management of , antepartum, single or unspecified fetus ([facility])5Clinisync Result Encounter NOMS External Department Unsolicited Angel, Lora, DO 5Clinisync Result Encounter NOMS External Department Unsolicited AngelLora, DO 05/22/2025Refill [facility] Osiel HERNANDEZGYN [address] [place] [address] Lora Ortiz, Nausea and vomiting in ([facility])5Clinisync Result Encounter NOMS External Department Unsolicited Angel, Lora, DO 05/13/2025 1:20 PM ESTRoutine [facility] [place] [address] Nicole Ghosh PA 32 weeks gestation of ([facility]); Third trimester ([facility]); Racing heart beat5Bamboo flowsheet N[facility] Oseil Chung [facility] [address] Nicole Ghosh PA 04/29/2025 1:30 PM ESTRoutine NOM[facility] [place] [address] Lora Ortiz, Third trimester ([facility]); 30 weeks gestation of ([facility])04/29/2025 1:00 PM ESTAncillary Procedure [facility] [place] [address] size inconsistent with dates ([facility])04/22/2025linisync Result Encounter NOMS External Department Unsolicited Lora Ortiz, 04/22/2025linisync Result Encounter NOMS External Department Unsolicited Lora Ortiz, 04/15/2025 1:00 PM EDTRoutine N[facility] [address] [place] [address] Lora Ortiz, Third trimester ([facility]); 28 weeks gestation of ([facility]); size inconsistent with dates ([facility]); Racing heart beat04/15/2025bstract [facility] [address] [place] [phone] Mable Dior MA 04/15/2025amboo flowsheet [facility] [address] [phone] Lora Ortiz, 04/13/2025bstract [facility] [place] [facility] [address] [place] [phone] Mable Dior MA 04/08/2025bstract [facility] [address] [place] [address] Marge Kirkland NP 04/01/2025Telephone [facility] [address] [place] [phone] Ariadna Bowden MA 04/01/2025linisync Result Encounter NOMS External Department Unsolicited Marge Kirkland, ZAC 03/21/2025Refill [facility] [place] [facility] [address] [place] [address] Lora Ortiz, Nausea and vomiting in ([facility])03/18/2025 2:20 PM EDTRoutine N[facility] [place] [facility] [address] [place] [address] Lora Ortiz, Second trimester ([facility]); 24 weeks gestation of ([facility]); Diabetes mellitus qhlbjblqy95/24/2025 2:00 PM EDTAncillary Procedure [facility] Osiel OBJEAN-PAULN [address] [place] [address] Encounter for follow-up ultrasound of anatomy ([facility])from Last 3 Months Family History Medical [...] ValueDate RecordedSex Assigned at BirthNot on fileLegal MopAggzhf32/15/2023 8:11 PM EDTGender IdentityNot on fileSexual OrientationNot on file Last Filed Vital Signs Vital SignReadingTime TakenCommentsBlood Wdlwsupf959/7406/10/2025 11:51 AM EST Pulse--Temperature--Respiratory Rate--Oxygen Saturation--Inhaled Oxygen Concentration--Irwfsu588 kg (230 lb)06/10/2025 11:51 AM IJAUjvbjo182.7 cm (5' 8 )01/23/2024 1:31 PM EDTBody Mass Index34.9707 1:31 PM EDT Plan of Treatment Health MaintenanceDue DateLast DoneCommentsCOVID-19 Vaccine ( season) 2025Influenza Vaccine (#1)2025Pneumococcal Vaccine: Pediatrics (0 to 5 Years) and At-Risk Patients (6 to 64 Years)Aged OutNo longer eligible based on patient's age to complete this topic Procedures Procedure NamePriorityDate/TimeAssociated DiagnosisCommentsUS OB BPP W NON-FIINEX8306/11/2025 6:18 PM EST UXFEHGZHMrdgxhs37/18/2025 4:05 PM EST URINE CULTURE - IGJZWptomkr67/18/2025 4:00 PM EST [facility] UA (CLEAN/CATCH) COMMUNICATION CENTER OPERATOR/MICRO IF IND.Xoxxskm0106/11/2025 4:00 PM EST CULTURE, URINE, ZTCWTIMSaapijl42/18/2025 4:00 PM EST POCT URINALYSIS RAWRDKDUUjalyrb73/17/2025 11:59 AM EST Third trimester ([facility]) US OB BPP W NON-CTGENG2906/05/2025 4:51 PM EST US OB FOLLOW UP TRANSABDOMINAL OWIDEYYDAcotbca82/08/2025 8:18 AM EST Excessive growth affecting management of , antepartum, single or unspecified fetus ([facility]) POCT URINALYSIS KVLDECJKZpugrbv18/03/2025 1:16 PM EST 34 weeks gestation of ([facility]) Third trimester ([facility]) US OB BPP W NON-UXYHLA6305/27/2025 10:21 AM EST US OB BPP W NON-VMCBVG6005/22/2025 12:44 PM EST US OB BPP W NON-JWGZHJ2605/15/2025 3:36 PM EST POCT URINALYSIS ZQWAUFKRHelkori79/19/2025 1:32 PM EST 32 weeks gestation of ([facility]) Third trimester ([facility]) POCT URINALYSIS ZFJQLVJKAhzyhgq23/05/2025 1:42 PM EST 30 weeks gestation of ([facility]) US OB FOLLOW UP TRANSABDOMINAL UWLYCEMBVmxznji07/05/2025 1:17 PM EST size inconsistent with dates ([facility]) CA ECHO DOPPLER UPIHJFDD36/29/2025 6:12 PM EDT ECG 12-LEAD04/22/2025 8:28 AM EDT POCT URINALYSIS GCBUUPVTZbqarlc97/22/2025 1:16 PM EDT 28 weeks gestation of ([facility]) ALL CBC WITH AUTO BYDDWrkquhd96/08/2025 9:19 AM EDT GLUCOSE 1 JJVFJvjqmkh31/08/2025 9:19 AM EDT POCT URINALYSIS AEFBXCAMZiquykb40/24/2025 2:39 PM EDT Second trimester ([facility]) US OB LIMITED 1+ LMQFYIZPpvkqvp26/24/2025 2:17 PM EDT Encounter for follow-up ultrasound of anatomy ([facility]) from Last 3 Months Results * US OB BPP W NON-STRESS (06/11/2025 6:18 PM EST) Only the most recent of5 resultswithin the time period is included. Anatomical RegionLateralityModalityOtherSpecimen (Source)Anatomical Location / LateralityCollection Method / VolumeCollection TimeReceived Time06/11/2025 6:18 PM EST Narrative 06/11/2025 6:21 PM EST [facility] ?[address] ? [place] [address] ? Ultrasound Report ? Signed ? Patient: NATHANIEL TAYLOR ?MR#: [id number] ?? : 1995 ?Acct:[id number] ?? Age/Sex: 29 / F ?ADM Date: 06/11/25 ?? Loc: [facility] ??250-1 ? Attending Dr: Lora Ortiz D.O. ? Ordering Physician: Lora Ortiz D.O. ?? Date of Service: 06/11/25 ?? Procedure(s): US OB BPP w non-stress ?? Accession Number(s): [id number] ? cc: Kelly Mckenzie NP; Lora Ortiz D.O. ? [facility] ? [address] ? [place] [address] ? Patient Name: ?? NATHANIEL TAYLOR ? MRN: [employer]:[id number] ? date: 1995 ?Sex: F ?? Assigned Patient Location: LAB ?? Current Patient Location: LAB ?? Accession/Order Number: [id number] ?? Exam Date: 06/11/2025 ??17:41 ?Report Date: 06/11/2025 ??18:18 ? At the request of: ?? LORA ??ANGEL ??DO ? Procedure: ??US OB BPP w non-stress ? US OB BPP w non-stress ??06/11/2025 6:13 PM ? SIGNS AND SYMPTOMS: ?? 09/28/2024 ?? Leaking of fluid ?? Y ? PROTOCOL: Transabdominal sonographic imaging of the gravid uterus ? COMPARISON: None ? FINDINGS: ? Estimated gestational age: 36 weeks 4 days ? heart rate: 147 bpm ? Amniotic fluid index: 13.63 cm. ??The deepest vertical pocket measures 4.5 cm. ? Biophysical profile: ? breathing movements: 2/2 ? Gross body movements: 2/2 ? tone: 2/2 ? Amniotic fluid volume: 2/2 ? US/US OB BPP w non-stress ?? IMPRESSION: ? Biophysical profile score: 8/8 ? Impression dictated by: Mateus Momin M.D. ??06/11/2025 6:18 PM ? Dictation Location: RADIO-PC-17 ? Electronically authenticated by: [id number] ??Y ?? Date: 06/11/2025 ??18:18 ? Dictated By: ?Mateus Momin M.D. ? Signed By: ?12/18/25 1821 ? DD/ 1818 ? TD/TT: ? Athletic Equipment Manager: Procedure Note Radiology, Radiologist, - 06/11/2025 [place] [address] Ultrasound Report Signed Patient: NATHANIEL TAYLOR AMR#: [id number] : 1995Acct:[id number] Age/Sex: 29 / FADM Date: 06/11/25 Loc: [facility] 250-[address]: Lora Ortiz D.O. Ordering Physician: Lora Ortiz D.O. Date of Service: 06/11/25 Procedure(s): US OB BPP w non-stress Accession Number(s): [id number] cc: Kelly Mckenzie CELLAR PACKER; Lora Ortiz D.O. The [place] [id number] Patient Name: NATHANIEL TAYLOR MRN: [facility]:[id number] date: 1995 Sex: F Assigned Patient Location: LAB Current Patient Location: LAB Accession/Order Number: [id number] Exam Date: 06/11/2025 17:41 Report Date: 06/11/2025 18:18 At the request of: LORA ORTIZ DO Procedure: US OB BPP w non-stress US OB BPP w non-stress 06/11/2025 6:13 PM SIGNS AND SYMPTOMS: 09/28/2024 Leaking of fluid Y PROTOCOL: Transabdominal sonographic imaging of the gravid uterus COMPARISON: None FINDINGS: Estimated gestational age: 36 weeks 4 days heart rate: 147 bpm Amniotic fluid index: 13.63 cm. The deepest vertical pocket measures 4.5cm. Biophysical profile: breathing movements: 2/2 Gross body movements: 2/2 tone: 2/2 Amniotic fluid volume: 2/2 US/US OB BPP w non-stress IMPRESSION: Biophysical profile score: 8/8 Impression dictated by: Mateus Momin M.D. 06/11/2025 6:18 PM Dictation Location: [place] [address] Electronically authenticated by: [id number] Y Date: 8:18 Dictated By: Mateus Momin M.D. Signed By:06/11/251820 DD/ 17 TD/TT: Athletic Equipment Manager: Authorizing ProviderResult TypeResult StatusCorey Angel DOCLINISYNC IMAGINGFinal Result * AMNISURE (06/11/2025 4:05 PM EST)ComponentValueRef RangeTest MethodAnalysis TimePerformed AtPathologist SignatureTBH AMNISURENEGATIVENEGATIVETBHSpecimen (Source)Anatomical Location / LateralityCollection Method / VolumeCollection TimeReceived Time06/11/2025 4:05 PM EST06/11/2025 4:07 PM EST Narrative CLINISYNC - 06/11/2025 4:22 PM EST Authorizing ProviderResult TypeResult StatusCorey Angel DOLAB BLOOD ORDERABLES Final ResultPerforming OrganizationAddressCity/State/ZIP CodePhone Number CLINISYNC TB * URINE CULTURE - [facility] (06/11/2025 4:00 PM EST)ComponentValueRef RangeTest MethodAnalysis TimePerformed AtPathologist SignatureURINE CULTURE - [facility] ??Urine Culture - [facility] SEE[facility] RESULT^[facility] RESULT TBHURINE CULTURE - FRMCSEEN SEE SCANNED REPORT, NORMAL^SEE SCANNED REPORT, NORMALTBHSpecimen (Source)Anatomical Location / LateralityCollection Method / VolumeCollection TimeReceived Time06/11/2025 4:00 PM EST06/11/2025 4:07 PM EST Narrative CLINISYNC - 06/13/2025 7:18 PM EST Authorizing ProviderResult TypeResult StatusCorey Angel DOLAB BLOOD ORDERABLES Final ResultPerforming OrganizationAddressCity/State/ZIP CodePhone Number CLINISYNC [facility] * (ABNORMAL) [facility] UA (CLEAN/CATCH) COMMUNICATION CENTER OPERATOR/MICRO IF IND. (06/11/2025 4:00 PM EST) ComponentValueRef RangeTest MethodAnalysis TimePerformed AtPathologist SignatureCOLOR URINELT. YELLOWYELLOWTBHCLARITY URINECLEARCLEARTBHSPECIFIC GRAVITY URINE1.0101.005 - 1.025TBHPH URINE6.05.0 - 9.0TBHPROTEIN URINENEGATIVE NEG/TRACE mg/dLTBHGLUCOSE URINE UANEGATIVENEGATIVE mg/dLTBHBILIRUBIN URINE NEGATIVENEGATIVETBHKETONES URINENEGATIVENEGATIVE mg/dLTBHBLOOD URINENEGATIVE NEGATIVETBHNITRITE URINENEGATIVENEGATIVETBHUROBILINOGEN URINE0.20.2 - 1.0 EU/dLTBHLEUKOCYTE ESTERASE URINETRACE(A)NEGATIVETBHURINE MICROSCOPIC INDICATED YESTBHSpecimen (Source)Anatomical Location / LateralityCollection Method / VolumeCollection TimeReceived Time06/11/2025 4:00 PM EST06/11/2025 4:07 PM EST Narrative CLINISYNC - 06/11/2025 4:15 PM EST Authorizing ProviderResult TypeResult StatusCorey Angel DOCLINISYNCFinal Result Performing OrganizationAddressCity/State/ZIP CodePhone Number CLINISYNC [facility] * Urine culture (06/11/2025 4:00 PM EST)ComponentValueRef RangeTest Method Analysis TimePerformed AtPathologist SignatureFR NOTE?75,000 colonies/ml mixed ?bacterial skin contaminants ?2 Days 06/13/2025 9:[address] [facility] CtrSpecimen (Source)Anatomical Location / LateralityCollection Method / VolumeCollection TimeReceived TimeUrine Urine specimen obtained by clean catch procedure / Fexzrfv1906/11/2025 4:00 PM EST 06/11/2025 9:02 PM ESTComment:Clean-Voided [facility] 06/13/2025 9:59 AM EST Diagnosis: Leakage Comment: Authorizing ProviderResult TypeResult StatusCorey Angel AUGUSTINE MICROBIOLOGY - GENERAL ORDERABLESFinal ResultPerforming OrganizationAddressCity/State/ZIP Code Phone Number [facility] [address] [place] [address], [facility] [address] [place] [address] * (ABNORMAL) POCT urinalysis dipstick manually resulted [...] Location / LateralityCollection Method / VolumeCollection TimeReceived DezaSczyw01/17/2025 11:59 AM EST Narrative Authorizing ProviderResult TypeResult StatusCorejordyn Ortiz DOPOINT OF CARE TEST ENTER/EDIT ORDERABLESFinal Result * OB follow up transabdominal approach (06/01/2025 8:18 AM EST) Only the most recent of2 resultswithin the time period is included. Anatomical RegionLateralityModalityBodyUltrasoundSpecimen (Source)Anatomical Location / LateralityCollection Method / VolumeCollection TimeReceived Time 06/11/2025 4:16 PM EST Impressions 06/11/2025 4:20 PM [...] EDT Narrative 04/22/2025 6:13 PM EDT [facility] ?[address] ? [place] [address] ? Cardiology Report ? Signed ? Patient: NATHANIEL TAYLOR A ?MR#: [id number] ?? : 1995 ?Acct:[id number] ?? Age/Sex: 29 / F ?ADM Date: 10/29/25 ?? Loc: CARD ? Attending Dr: Lora Ortiz D.O. ? Ordering Physician: Lora Ortiz D.O. ?? Date of Service: 04/22/25 ?? Procedure(s): CA echo doppler complete ?? Accession Number(s): [id number] ? cc: Kelly Mckenzie CELLAR PACKER; Lora Ortiz D.O. ? Patient Name: ? NATHANIEL TAYLOR ? MR#: [id number] ? : 1995 ? Exam Date: 04/22/2025 [...] ? 2.50 cm2, 2.50 cm2 ?? Deceleration [place]: ? Pressure Half-Time: ? Peak Velocity(Antegrade Flow): [...] ml, 33.56 ml ? Dictated by: Verónica Lpoez MD on 04/22/2025 at 18:06 ? Approved by: Verónica Lopez MD on 04/22/2025 at 18:12 ? Dictated By: ?Verónica Lopez M.D. ? Signed By: ?04/22/ 1813 ? DD/ ? TD/TT: ? Athletic Equipment Manager: Procedure Note Radiology, Radiologist, - 04/22/2025 [place] [address] Cardiology Report Signed Patient: NATHANIEL TAYLOR AMR#: [id number] : 1995Acct:[id number] Age/Sex: FADM Date: 04/22/25 Loc: CARD Attending Dr: Lora Ortiz D.O. Ordering Physician: Lora Ortiz D.O. Date of Service: 04/22/25 Procedure(s): CA echo doppler complete Accession Number(s): [id number] cc: Kelly Mckenzie CELLAR PACKER; Lora Ortiz D.O. Patient Name: NATHANIEL TAYLOR MR#: [id number] : 1995 Exam Date: 04/22/2025 Ordering Doctor: [...] Area (VTI): 2.50 cm2, 2.50 cm2 Deceleration [place]: Pressure Half-Time: Peak Velocity(Antegrade Flow): 1.55 m/s [...] Lopez M.D. Signed By:04/22/251812 DD/ 11 TD/TT: Athletic Equipment Manager: Authorizing ProviderResult TypeResult StatusCorey Angel DOCLINISYNC IMAGINGFinal Result * ECG 12-LEAD (04/22/2025 8:28 AM EDT)Anatomical RegionLateralityModalityOther Specimen (Source)Anatomical Location / LateralityCollection Method / Volume Collection TimeReceived Time04/22/2025 8:28 AM EDT Narrative 04/22/2025 6:39 PM EDT [facility] ?[address] ? [place] [facility] ? Electrocardiograph Report ? Signed ? Patient: CLAUDIANATHANIEL ?MR#: [id number] ?? : 1995 ?Acct:[id number] ?? Age/Sex: 29 / F ?ADM Date: 04/22/25 ?? Loc: CARD ? Attending Dr: Lora Ortiz D.O. ? Ordering Physician: Lora Ortiz D.O. ?? Date of Service: 04/22/25 ?? Procedure(s): ECG 12 lead ?? Accession Number(s): [id number] ? cc: ?[facility] ? Test Date: ?2025-04-22 ?? Pat Name: ? NATHANIEL TAYLOR ?Department: ? Room: ? - ?? Gender: ? Female ? Grader Marker: ? : ?1995 ? Requested By: LORA ORTIZ ?? Order Number: [id number] ?Reading MD: ?? SLY HERRERA ? Measurements ?? Intervals ?[place] ? Rate: ? 84 ? P: ?22 ?? ND: ? 139 ?QRS: ?88 ?? QRSD: ? 94 ? T: ?54 ?? QT: ? 361 ? QTc: ?429 ? Interpretive Statements ?? SINUS RHYTHM ?? No previous ECG available for comparison ?? Electronically Signed On 04-22-2025 18:39:57 EDT by SLY HERRERA ? Dictated By: ?Sly Herrera M.D. ? Signed By: ?04/22/25 1839 ?04/22/25 1839 ? DD/ 0828 ? TD/TT: ? Athletic Equipment Manager: Procedure Note Radiology, Radiologist, MD - 04/22/[address] [address] Electrocardiograph Report Signed Patient: NATHANIEL TAYLOR AMR#: [id number] : 1995Acct:[id number] Age/Sex: 29 / FADM Date: 04/22/25 Loc: CARD Attending Dr: Lora Ortiz D.O. Ordering Physician: Lora Ortiz D.O. Date of Service: 04/22/25 Procedure(s): ECG 12 lead Accession Number(s): [id number] cc: [facility] Test Date: 2025-04-22 Pat Name: NATHANIEL TAYLOR Department: Room: - Gender: Female Grader Marker: : 1995 Requested By: LORA ORTIZ Order Number: [id number] Reading MD: SLY HERRERA Measurements Intervals [place] Rate: 84 P: 22 ND: 139 QRS: 88 QRSD: 94 T: 54 QT: 361 QTc: 429 Interpretive Statements SINUS RHYTHM No previous ECG available for comparison Electronically Signed On 04-22-2025 18:39:57 EDT by SLY HERRERA Dictated By: Sly Herrera M.D. Signed By:04/22/25183804/22/251838 DD/ 7 TD/TT: Athletic Equipment Manager: Authorizing ProviderResult TypeResult StatusCorejordyn Ortiz DOCLINISYJUANA IMAGINGFinal Result * GLUCOSE 1 HOUR (04/01/2025 9:19 AM EDT)ComponentValueRef RangeTest Method Analysis TimePerformed AtPathologist SignatureGLUCOSE 1 WXQQ257<130 mg/dLTBH Specimen (Source)Anatomical Location / LateralityCollection Method [...] 35.2 g/dLTBHTBH RDW12.611.0 - 15.0 % TBHTBH YKZ780741 - 450 10 3/uLTBHTBH MPV11.09.5 - 13.5 [...] StatusKristina Marita NPCLINISYNCFinal ResultPerforming OrganizationAddressCity/State/ZIP CodePhone Number [facility] * US OB limited 1+ fetuses [...] Nogueira MD Authorizing ProviderResult TypeResult StatusCorey Angel [facility] OB US PROCEDURES Final Result from Last 3 Months Insurance Care Teams Team MemberRelationshipSpecialtyStart DateEnd Date Unallocated, Noms Provider, [address] [facility] [place] [address] PCP - GeneralFamily Alhetdxu67/14/24 Treasure England DO [address] [place] [address] Referring QqiawxwlwMdfarwoad20/14/24
--- OUTSIDE RECORDS SUMMARY | 2025-06-15 05:05 | XMS_ITS | Encounter Summary ---
Author Organization [facility] Address [address] [facility] [place] [address] Care Team Providers Care Electroencephalograph Technician Name Role Phone Unallocated, Noms Provider MD Primary Care Provi aristeo TomásTreasure leach DO Unavailable [phone] Encounter Details DateTypeDepartmentCare Team (Latest Contact Info)Vgptfrjduva82/18/2025Clinisync Result Encounter [facility] External Department Unsolicited Junito Ortiz, DO [address] [facility] [address] [place] [address] Social History Tobacco UseTypesPacks/DayYears UsedDateSmoking Tobacco: NeverSmokeless Tobacco: NeverAlcohol UseStandard Drinks/WeekCommentsYes0 (1 standard drink = 0.6 oz pure alcohol)One drink per monthEstimated Date of DeliveryCommentsYes 6Based on last menstrual period of 09/28/2024Sex and Gender Information ValueDate RecordedSex Assigned at BirthNot on fileLegal JmdLphgsb66/15/2023 8:11 PM EDTGender IdentityNot on fileSexual OrientationNot on filedocumented as of this encounter Plan of Treatment Not on file documented as of this encounter Procedures Procedure NamePriorityDate/TimeAssociated DiagnosisCommentsAMNISURERoutine 06/11/2025 4:05 PM EST URINE CULTURE - CZFWTwvbarh03/18/2025 4:00 PM EST [facility] UA (CLEAN/CATCH) DEVELOPMENT GEOLOGIST/MICRO IF IND.Gudelws7506/11/2025 4:00 PM EST documented in this encounter Results * AMNISURE (06/11/2025 4:05 PM EST)ComponentValueRef RangeTest MethodAnalysis TimePerformed AtPathologist SignatureTBH AMNISURENEGATIVENEGATIVETBHSpecimen (Source)Anatomical Location / LateralityCollection Method / VolumeCollection TimeReceived Time06/11/2025 4:05 PM EST06/11/2025 4:07 PM EST Narrative [facility]IN[facility] - 06/11/2025 4:22 PM EST Authorizing ProviderResult TypeResult StatusCorey Angel DOLAB BLOOD ORDERABLES Final ResultPerforming OrganizationAddressCity/State/ZIP CodePhone Number [facility] * URINE CULTURE - [facility] (06/11/2025 4:00 PM EST)ComponentValueRef RangeTest MethodAnalysis TimePerformed AtPathologist SignatureURINE CULTURE - [facility] ??Urine Culture - [facility] SEE[facility] RESULT^[facility] RESULT TBHURINE CULTURE - FRMCSEEN SEE SCANNED REPORT, NORMAL^SEE SCANNED REPORT, NORMALTBHSpecimen (Source)Anatomical Location / LateralityCollection Method / VolumeCollection TimeReceived Time06/11/2025 4:00 PM EST06/11/2025 4:07 PM EST Narrative CLINISYNC - 06/13/2025 7:18 PM EST Authorizing ProviderResult TypeResult StatusCorey Anegl DOLAB BLOOD ORDERABLES Final ResultPerforming OrganizationAddressCity/State/ZIP CodePhone Number [facility] * (ABNORMAL) [facility] UA (CLEAN/CATCH) DEVELOPMENT GEOLOGIST/MICRO IF IND. (06/11/2025 4:00 PM EST) ComponentValueRef [...] DOCLINISYNCFinal Result Performing OrganizationAddressCity/State/ZIP CodePhone Number CLINISYNC TB documented in this encounter Visit Diagnoses Not on filedocumented in this encounter Care Teams Team MemberRelationshipSpecialtyStart DateEnd Date Unallocated, Noms Provider, [address] [place] [address] PCP - GeneralFamily Exdilvum69/14/24 Treasure England DO [address] [place] [address] Referring VfwaikzhfPcyxfvgnk30/14/24documented as of this encounter
--- OUTSIDE RECORDS SUMMARY | 2025-06-15 05:05 | XMS_ITS | Encounter Summary ---
Author Organization [facility] Address [address] [facility] [place] [address] Care Team Providers Care Medical Center Manager Name Role Phone Unallocated, Noms Provider Primary Care Provi aristeo Treasure England DO Unavailable [phone] Encounter Details DateTypeDepartmentCare Team (Latest Contact Info)Kyopfuykhoq11/12/2025Clinisync Result Encounter [facility]S External Department Unsolicited Lora Ortiz, DO [address] [facility] [place] [address] Social History Tobacco UseTypesPacks/DayYears UsedDateSmoking Tobacco: NeverSmokeless Tobacco: NeverAlcohol UseStandard Drinks/WeekCommentsYes0 (1 standard drink = 0.6 oz pure alcohol)One drink per monthEstimated Date of DeliveryCommentsYes 6Based on last menstrual period of 09/28/2024Sex and Gender Information ValueDate RecordedSex Assigned at BirthNot on fileLegal JkvYwgymh46/15/2023 8:11 PM EDTGender IdentityNot on fileSexual OrientationNot on filedocumented as of this encounter Plan of Treatment Not on file documented as of this encounter Procedures Procedure NamePriorityDate/TimeAssociated DiagnosisCommentsUS OB BPP W NON-WYJDHN2406/05/2025 4:51 PM EST documented in this encounter Results * US OB BPP W NON-STRESS (06/05/2025 4:51 PM EST)Anatomical Region LateralityModalityOtherSpecimen (Source)Anatomical Location / Laterality Collection Method / VolumeCollection TimeReceived Time06/05/2025 4:51 PM EST Narrative 06/05/2025 4:54 PM EST [facility] ?[address] ? [place], [facility] ? Ultrasound Report ? Signed ? Patient: CLAUDIANATHANIEL A ?MR#: [id number] ?? : 1995 ?Acct:[id number] ?? Age/Sex: 29 / F ?ADM Date: 06/05/25 ?? Loc: US ? Attending Dr: Lora Ortiz D.O. ? Ordering Physician: Lora Ortiz D.O. ?? Date of Service: 06/05/25 ?? Procedure(s): US OB BPP w non-stress ?? Accession Number(s): [id number] ? cc: Kelly Mckenzie SPRING LAYER; Lora Ortiz D.O. ? [facility] ? [address] [facility] ? [place] [address] ? Patient Name: ?? NATHANIEL TAYLOR ? MRN: [facility]:[id number] ? date: 1995 ?Sex: F ?? Assigned Patient Location: [facility] ?? Current Patient Location: ? Accession/Order Number: [id number] ?? Exam Date: 06/05/2025 ??15:11 ?Report Date: [...] M.D. ??06/05/2025 4:51 PM ? Dictation Location: [facility]PC[facility]23 ? Electronically authenticated by: [id number] ??Y ?? Date: 06/05/2025 ??16:51 ? Dictated By: ?Mateus Momin M.D. ? Signed By: ?06/05/25 1654 ? DD/ 1651 ? TD/TT: ? Liquid Hydrogen Plant Operator: Procedure Note Radiology, Radiologist, MD - 06/05/2025 [place] [address] Ultrasound Report Signed Patient: NATHANIEL TAYLOR AMR#: [id number] : 1995Acct:[id number] Age/Sex: 29 / FADM Date: 06/05/25 Loc: US Attending Dr: Lora Ortiz D.O. Ordering Physician: Lora Ortiz D.O. Date of Service: 06/05/25 Procedure(s): US OB BPP w non-stress Accession Number(s): [id number] cc: Kelly Mckenzie SPRING LAYER; Lora Ortiz D.O. The [address] [address] Patient Name: NATHANIEL TAYLOR MRN: [facility]:[id number] date: 1995 Sex: F Assigned Patient Location: [facility] Current Patient Location: Accession/Order Number: [id number] Exam Date: 06/05/2025 15:11 Report Date: 06/05/2025 16:51 At the request of: LORA OTRIZ DO Procedure: US OB BPP w non-stress [...] Momin M.D. 06/05/2025 4:51 PM Dictation Location: [place] [address] Electronically authenticated by: [id number] Y Date: 6:51 Dictated By: Mateus Momin M.D. Signed By:06/05/251653 DD/ 50 TD/TT: Liquid Hydrogen Plant Operator: Authorizing ProviderResult TypeResult StatusCorey Angel DOCLINISYNC IMAGINGFinal Result documented in this encounter Visit Diagnoses Not on filedocumented in this encounter Care Teams Team MemberRelationshipSpecialtyStart DateEnd Date Unallocated, Noms Provider, [address] [place] [address] PCP - GeneralFamily Boulfkwi50/14/24 Treasure England DO [address] [place] [address] Referring HzdvbdbcaZppdajixw54/14/24documented as of this encounter
--- OUTSIDE RECORDS SUMMARY | 2025-06-15 05:05 | XMS_ITS | Encounter Summary ---
Author Organization [facility] Address [address] [facility] [place] [address] Care Team Providers Care Driver'S Education Instructor Name Role Phone Unallocated, Nomne[place] Provider Primary Care Provi aristeo Treasure England DO Unavailable [phone] Encounter Details DateTypeDepartmentCare Team (Latest Contact Info)Ddntagquads87/17/2025bstract NATALIE Brown OBGYN [address] [place] [address] Junito Ortiz DO [address] [facility] [address] Iam [place], [facility] Social History Tobacco UseTypesPacks/DayYears UsedDateSmoking Tobacco: NeverSmokeless Tobacco: NeverAlcohol UseStandard Drinks/WeekCommentsYes0 (1 standard drink = 0.6 oz pure alcohol)One drink per monthEstimated Date of DeliveryCommentsYes 6Based on last menstrual period of 09/28/2024Sex and Gender Information ValueDate RecordedSex Assigned at BirthNot on fileLegal AeoWssmym64/15/2023 8:11 PM EDTGender IdentityNot on fileSexual OrientationNot on filedocumented as of this encounter Plan of Treatment Not on file documented as of this encounter Visit Diagnoses Not on filedocumented in this encounter Care Teams Team MemberRelationshipSpecialtyStart DateEnd Date Unallocated, Noms Provider, [address] [place] [address] PCP - GeneralFamily Mwhelyvc31/14/24 Treasure England DO [address] [place] [address] Referring WjdlxyvnzTfuttokvh82/14/24documented as of this encounter
--- OUTSIDE RECORDS SUMMARY | 2025-06-15 05:05 | XMS_ITS | Clinical Summary ---
Author Organization [facility] Address [id number] [address] [place] [address] Care Team Providers Care Wire Winding Machine Tender Name Role Phone Kelly Mckenzie YANELI-WIRE SPOOLER Primary Care Provider Allergies No known active [...] without aura and without status migrainosus, not plmrseayzdv66/29/2023Pineal gland cyst05/23/2023Hx of ddauclunpi65/29/2023Vestibular orfdjipz14/27/2023Choroid plexus cyst of fetus affecting care of mother, gtsvkkhuud46/10/2021 Family History Medical HistoryRelationNameCommentsBreast cancerMaternal GrandmotherDiabetes Maternal [...] Frequency of Binge DrinkingNot on file12/19/2019PHQ-2AnswerDate RecordedTotal Fonfd935/29/2023ChildcareAnswerDate PtfgcgqzMqaqsyplrKvxsezq48/24/2020Employment AnswerDate MtzzqtfpYlbwgfytriBzfwqaq70/24/2020Hunger ScreeningAnswerDate RecordedWithin the past 12 months we worried whether our food would run out before we got money to buy more.Never True09/05/2023Within the past 12 months the food we bought just didn't last and we didn't have money to get more.Never True4Purpose - LifeAnswerDate RecordedPurpose and direction in life Ixpjbir77/11/2021CommentsNoSex and Gender InformationValueDate Recorded Sex Assigned at BirthNot on fileLegal LetOxrrdj19/24/2020 11:48 AM EDTGender IdentityNot on fileSexual OrientationNot on file Last Filed Vital Signs Vital SignReadingTime TakenCommentsBlood Tlagnidf847/7703 9:42 AM EDT Rsnfx025009/05/2023 9:42 AM EDTTemperature--Respiratory Rate--Oxygen Saturation-- Inhaled Oxygen Concentration--Twpipg35.9 kg (202 lb 8 oz)09/05/2023 9:42 AM EDT Vjqhgo415.7 cm (5' 8 )09/05/2023 9:42 AM EDTBody Mass Index30.7909/05/2023 9:42 AM EDT Plan of Treatment Health MaintenanceDue DateLast DoneCommentsDTaP,Tdap and Td Vaccines (1 - Tdap) 12/19/2014Pap Smear12/19/2016Depression Kiqbmgrsx99dult BMI Dtrahzbpq71Tobacco Nyucjuzty03Influenza Ieeatnu9402/23/2025 Medical Devices Not on file Insurance Care Teams Team MemberRelationshipSpecialtyStart DateEnd Date Kelly Mckenzie APRN-WIRE SPOOLER [address], [facility] [address] [place] [address] PCP - GeneralFamily Wvocrgvd82/13/23
--- OUTSIDE RECORDS SUMMARY | 2025-06-15 05:05 | XMS_ITS | Encounter Summary ---
Author Organization [facility] Address [address] [facility] [place] [address] Care Team Providers Care Eye Technician Name Role Phone Unallocated, Noms Provider Primary Care Provi aristeo Treasure England DO Unavailable [phone] Encounter Details DateTypeDepartmentCare Team (Latest Contact Info)Kusfgsyqshd26/18/2025External Result Encounter [facility] External Department Unsolicited Junito Ortiz, DO [address] [facility] [address] [place] [address] Social History Tobacco UseTypesPacks/DayYears UsedDateSmoking Tobacco: NeverSmokeless Tobacco: NeverAlcohol UseStandard Drinks/WeekCommentsYes0 (1 standard drink = 0.6 oz pure alcohol)One drink per monthEstimated Date of DeliveryCommentsYes 6Based on last menstrual period of 09/28/2024Sex and Gender Information ValueDate RecordedSex Assigned at BirthNot on fileLegal YvmNdratm61/15/2023 8:11 PM EDTGender IdentityNot on fileSexual OrientationNot on filedocumented as of this encounter Plan of Treatment Not on file documented as of this encounter Procedures Procedure NamePriorityDate/TimeAssociated DiagnosisCommentsCULTURE, URINE, MUADJXFPzxgobd65/18/2025 4:00 PM EST documented in this encounter Results * Urine culture (06/11/2025 4:00 PM EST)ComponentValueRef RangeTest Method Analysis TimePerformed AtPathologist SignatureFRMC NOTE?75,000 colonies/ml mixed ?bacterial skin contaminants ?2 Days 06/13/2025 9:59 AM [facility] CtrSpecimen (Source)Anatomical Location / LateralityCollection Method / VolumeCollection TimeReceived TimeUrine Urine specimen obtained by clean catch procedure / Vusaxfa8506/11/2025 4:00 PM EST 06/11/2025 9:02 PM ESTComment:Clean-Voided Midstream Narrative [facility] - 06/13/2025 9:59 AM EST Diagnosis: Leakage Comment: Authorizing ProviderResult TypeResult StatusCorey Angel DOLAB MICROBIOLOGY - GENERAL ORDERABLESFinal ResultPerforming OrganizationAddressCity/State/ZIP Code Phone Number [facility] [address] [place] [address], [facility] [address] [place] [address] documented in this encounter Visit Diagnoses Not on filedocumented in this encounter Care Teams Team MemberRelationshipSpecialtyStart DateEnd Date Unallocated, Noms Provider, [address] [place] [address] PCP - GeneralFamily Adhlqfly39/14/24 Treasure England DO [address] [place] [address] Referring JgxpxwnicHutcklhuj06/14/24documented as of this encounter
--- OUTSIDE RECORDS SUMMARY | 2025-06-15 05:05 | XMS_ITS | Encounter Summary ---
Author Organization [facility] Address [address] [facility] [address] Care Team Providers Care Specialist Physician Name Role Phone Unallocated, Noms Provider Primary Care Provi aristeo Treasure England DO Unavailable [phone] Encounter Details DateTypeDepartmentCare Team (Latest Contact Info)Dintxfwegsg20/18/2025Clinisync Result Encounter [facility] External Department Unsolicited Lora Ortiz, DO [address] [place] [address] Social History Tobacco UseTypesPacks/DayYears UsedDateSmoking Tobacco: NeverSmokeless Tobacco: NeverAlcohol UseStandard Drinks/WeekCommentsYes0 (1 standard drink = 0.6 oz pure alcohol)One drink per monthEstimated Date of DeliveryCommentsYes 6Based on last menstrual period of 09/28/2024Sex and Gender Information ValueDate RecordedSex Assigned at BirthNot on fileLegal AdmQdxgfc82/15/2023 8:11 PM EDTGender IdentityNot on fileSexual OrientationNot on filedocumented as of this encounter Plan of Treatment Not on file documented as of this encounter Procedures Procedure NamePriorityDate/TimeAssociated DiagnosisCommentsUS OB BPP W NON-OSMVRK0906/11/2025 6:18 PM EST documented in this encounter Results * US OB BPP W NON-STRESS (06/11/2025 6:18 PM EST)Anatomical Region LateralityModalityOtherSpecimen (Source)Anatomical Location / Laterality Collection Method / VolumeCollection TimeReceived Time06/11/2025 6:18 PM EST Narrative 06/11/2025 6:21 PM EST [facility] ?[address] ? [place] [address] ? Ultrasound Report ? Signed ? Patient: CLAUDIA,NATHANIEL A ?MR#: [id number] ?? : 1995 ?Acct:[id number] ?? Age/Sex: 29 / F ?ADM Date: 06/11/25 ?? Loc: FBC ??250-1 ? Attending Dr: Lora Ortiz D.O. ? Ordering Physician: Lora Ortiz D.O. ?? Date of Service: 06/11/25 ?? Procedure(s): US OB BPP w non-stress ?? Accession Number(s): [id number] ? cc: Kelly Mckenzie NP; Lora Ortiz D.O. ? [facility] ? [address] [facility] ? [place] [address] ? Patient Name: ?? NATHANIEL TAYLOR ? MRN: [facility]:[id number] ? date: 1995 ?Sex: F ?? Assigned Patient Location: LAB ?? Current Patient Location: LAB ?? Accession/Order Number: [id number] ?? Exam Date: 06/11/2025 ??17:41 ?Report Date: [...] Dictation Location: [facility]-PC-17 ? Electronically authenticated by: [id number] ??Y ?? Date: 06/11/2025 ??18:18 ? Dictated By: ?Mateus Momin M.D. ? Signed By: ?/18/ 1821 ? DD/ 1818 ? TD/TT: ? Collection Systems Worker: Procedure Note Radiology, Radiologist, MD - 06/11/2025 [place] [address] Ultrasound Report Signed Patient: NATHANIEL TAYLOR AMR#: [id number] : 1995Acct:[id number] Age/Sex: 29 / FADM Date: 06/11/25 Loc: [facility] 250-[address]: Lora Ortiz D.O. Ordering Physician: Lora Ortiz D.O. Date of Service: 06/11/25 Procedure(s): US OB BPP w non-stress Accession Number(s): [id number] cc: Kelly Mckenzie DRY HOUSE TENDER; Lora Ortiz D.O. The [place] [id number] Patient Name: NATHANIEL TAYLOR MRN: [id number] date: 1995 Sex: F Assigned Patient Location: LAB Current Patient Location: LAB Accession/Order Number: [id number] Exam Date: 06/11/2025 17:41 Report Date: 06/11/2025 [...] BPP w non-stress IMPRESSION: Biophysical profile score: 88 Impression dictated by: Mateus Momin M.D. 06/11/2025 6:18 PM Dictation Location: [place] [address] Electronically authenticated by: [id number] Y Date: 8:18 Dictated By: Mateus Momin M.D. Signed By:06/11/251820 DD/ 17 TD/TT: Collection Systems Worker: Authorizing ProviderResult TypeResult StatusCorey Angel DOCLINISYNC IMAGINGFinal Result documented in this encounter Visit Diagnoses Not on filedocumented in this encounter Care Teams Team MemberRelationshipSpecialtyStart DateEnd Date Unallocated, Noms Provider, [address] [place] [address] PCP - GeneralFamily Kdrplhpp26/14/24 Treasure England DO [address] [place] [address] Referring MundyjzruQlswjmiot07/14/24documented as of this encounter
--- OUTSIDE RECORDS SUMMARY | 2025-06-15 05:05 | XMS_ITS | Encounter Summary ---
Author Organization [facility] Address [address] [facility] [place] [address] Care Team Providers Care Building Dismantler Name Role Phone Unallocated, Nomne[place] Provider Primary Care Provi aristeo Treasure England DO Unavailable [phone] Encounter Details DateTypeDepartmentCare Team (Latest Contact Info)Ddeoevoxziv13/17/2025Bamboo flowsheet NATALIE Brown OBGYN [address] [facility] [place] [address] Junito Ortiz DO [address] Iam Brown, [facility] Social History Tobacco UseTypesPacks/DayYears UsedDateSmoking Tobacco: NeverSmokeless Tobacco: NeverAlcohol UseStandard Drinks/WeekCommentsYes0 (1 standard drink = 0.6 oz pure alcohol)One drink per monthEstimated Date of DeliveryCommentsYes 6Based on last menstrual period of 09/28/2024Sex and Gender Information ValueDate RecordedSex Assigned at BirthNot on fileLegal JduVceepk54/15/2023 8:11 PM EDTGender IdentityNot on fileSexual OrientationNot on filedocumented as of this encounter Plan of Treatment Not on file documented as of this encounter Visit Diagnoses Not on filedocumented in this encounter Care Teams Team MemberRelationshipSpecialtyStart DateEnd Date Unallocated, Noms Provider, [address] [place] [address] PCP - GeneralFamily Ycmirvxv06/14/24 Treasure England DO [address] [place] [address] Referring BcukrrcinEtnyogypl30/14/24documented as of this encounter
[2025-06-15] MEDS: 0.9 % SODIUM CHLORIDE 1,000 ML 125 ML IV ×2 (05:42→12:54)
[2025-06-15 06:01] LABS: Hematocrit 33.7 % (36.0-48.0); Hemoglobin 10.8 g/dL (12.0-16.0); Mean Corpuscular HGB Conc 32.0 g/dL (29.9-35.2); Mean Corpuscular Hemoglobin 26.2 pg (26.7-34.0); Mean Corpuscular Volume 81.8 fL (81.0-99.0); Platelet Count 215 10^3/uL (150-450); Red Blood Count 4.12 10^6/uL (4.20-5.40); White Blood Count 10.6 10^3/uL (4.0-11.0)
[2025-06-15] MEDS: OXYTOCIN/0.9 % SODIUM CHLORIDE 10 UNITS/500 ML PLAST..BAG 6 UNIT IV (06:55)
[2025-06-15] MEDS: AMPICILLIN SODIUM 2,000 MG in 0.9 % SODIUM CHLORIDE 100 ML 200 MG IV (06:56)
--- NOTE | 2025-06-15 08:23 | W.PC.ACHO ---
Registration Status: ADM IN Primary Language: Preferred Language: Maltese Report recieved from Sukhdeep KATHLEEN at 0710. Care assumes. Active Medications Generic Name Dose Route Start Last Admin Trade Name Cris PRN Reason Stop Dose Admin Carboprost Tromethamine 250 mcg 06/15/25 05:04 Carboprost Tromethamine 250 Mcg/Ml 1 Ml Vial IM 06/17/25 05:04 Q15M PRN Bleeding Tranexamic Acid 1,000 mg/ 110 mls @ 440 mls/hr 06/15/25 05:04 Sodium Chloride IV 06/17/25 05:04 ONCE PRN Uterine Bleeding Sodium Chloride 1,000 mls @ 125 mls/hr 06/15/25 05:30 06/15/25 05:42 Sodium Chloride 0.9% 1,000 Ml IV 125 mls/hr .Q8H JUAN CARLOS Administration Oxytocin/Sodium Chloride 10 units in 500 mls @ 6 mls/hr 06/15/25 05:15 06/15/25 08:00 Pitocin 10 Unit/500 Ml-Ns IV 6 milliunit/min TITR JUAN CARLOS 18 mls/hr Protocol Infusion 2 MILLIUNIT/MIN Ampicillin 1,000 mg/ Sodium 50 mls @ 100 mls/hr 06/15/25 11:00 Chloride IV 06/15/25 11:29 ONCE ONE Oxytocin/Sodium Chloride 20 units in 1,000 mls @ 125 mls/hr 06/15/25 05:09 Pitocin 20 Unit/1,000 Ml-Ns IV Q8H PRN POST DELIVERY Lidocaine 5 ml 06/15/25 05:09 Lidocaine Viscous 2% 15 Ml Ud Cup Solution TOPICAL 06/17/25 05:09 ONCE PRN Pain Lidocaine 1 ml 06/15/25 05:09 Lidocaine Hcl 1% 200 Mg/20 Ml Mdv INJ 06/17/25 05:09 ONCE PRN Pain Methylergonovine Maleate 0.2 mg 06/15/25 05:04 Methylergonovine Maleate 0.2 Mg/Ml Ampule IM 06/17/25 05:04 ONCE PRN Uterine Contractility/Contract Methylergonovine Maleate 0.2 mg 06/15/25 05:04 Methylergonovine Maleate 0.2 Mg Tablet PO 06/17/25 05:04 Q4H PRN Uterine Contractility/Contract Misoprostol 600 mcg 06/15/25 05:04 Misoprostol 100 Mcg Tablet PO 06/17/25 05:04 ONCE PRN Uterine Bleeding Misoprostol 800 mcg 06/15/25 05:04 Misoprostol 100 Mcg Tablet SL 06/17/25 05:04 ONCE PRN Uterine Bleeding Misoprostol 1,000 mcg 06/15/25 05:04 Misoprostol 100 Mcg Tablet WI 06/17/25 05:04 ONCE PRN Uterine Bleeding Nalbuphine HCl 10 mg 06/15/25 05:04 Nalbuphine Hcl 10 Mg/Ml Ampule IV Q3H PRN Pain Scale 4-6 Ondansetron HCl 4 mg 06/15/25 05:04 Ondansetron Pf 4 Mg/2 Ml Vial IV Q6H PRN Nausea And Vomiting Ondansetron HCl 4 mg 06/15/25 05:04 Ondansetron 4 Mg Rapdis Tablet SL Q6H PRN Nausea And Vomiting Oxytocin 10 unit 06/15/25 05:04 Oxytocin 10 Unit/Ml Vial IM 06/17/25 05:04 ONCE PRN bleeding Diet Category Date Time Status Regular Consistency Diet Diet 06/15/25 05:07 Active Consults Category Date Time Status Consult to Anesthesiology Routine Cons 06/15/25 Ordered IV Insertion/Site Date of IV Line Insertion [20g 06/15/25 right Forearm] IV Insertion Time [20g right 05:38 Forearm] Neurology Patient orientation (short person,place,time,situation list) Respiratory Oxygen Delivery Method Room Air
[2025-06-15 11:03] LABS: Cannabinoid Screen Urine NEGATIVE (NEGATIVE); Methamphetamines Screen Urine NEGATIVE (NEGATIVE); Tricyclic Antidepressant Urine NEGATIVE (NEGATIVE)
[2025-06-15] MEDS: AMPICILLIN SODIUM 1,000 MG in 0.9 % SODIUM CHLORIDE 50 ML 100 MG IV ×2 (11:07→15:13)
[2025-06-15] MEDS: CALCIUM CARBONATE 500 MG (200MG ELEMENTAL) TAB CHEW PO (14:59)
[2025-06-15] MEDS: OXYTOCIN/0.9 % SODIUM CHLORIDE 20 UNITS/1,000 ML PLAST..BAG 125 UNIT IV (15:57)
--- NOTE | 2025-06-15 16:01 | PM.OBPRCVD ---
Procedure Intrapartal events: None Induction method: per pitocin protocol Delivery augmentation: rupture of membranes and pitocin Delivery monitor: external FHT and external uterine Route of delivery: Episiotomy Description: none L&D Laceration Description: none Anesthesia type: Epidural Disposition: floor Delivery date: 06/15/25 Gender: male presentation: vertex Placental delivery description: Spontaneous cord description: 3 Vessels
[2025-06-15] MEDS: IBUPROFEN 600 MG TABLET PO (16:33)
--- NOTE | 2025-06-15 18:52 | PC.NURSE ---
back to pt bedside at this time d/t trickle of vaginal bleeding noted. manual removes clots at this time. Fundus firm; U/1. QBL of 637 weighed at this time.
[2025-06-16 01:54] VITALS: BP 119/70; PULSE 67
[2025-06-16] MEDS: IBUPROFEN 600 MG TABLET PO ×3 (01:57→15:46)
[2025-06-16 01:58] VITALS: TEMP 36.4
[2025-06-16 05:57] LABS: Hematocrit 31.1 % (36.0-48.0); Hemoglobin 9.9 g/dL (12.0-16.0); Immature Granulocytes Abs Auto 0.15 10^3/uL (0.00-0.03); Immature Granulocytes Pct Auto 0.9 % (0.0-0.5); Lymphocytes Absolute Auto 1.6 10^3/uL (1.2-3.8); Mean Corpuscular HGB Conc 31.8 g/dL (29.9-35.2); Mean Corpuscular Hemoglobin 26.2 pg (26.7-34.0); Mean Corpuscular Volume 82.3 fL (81.0-99.0); Platelet Count 203 10^3/uL (150-450); Red Blood Count 3.78 10^6/uL (4.20-5.40); White Blood Count 16.0 10^3/uL (4.0-11.0)
--- NOTE | 2025-06-16 07:34 | P.OBPN_ITS ---
OB - PN: Subj Subjective Patient comments: no complaints and pain well controlled [place] status: doing well Exam Constitutional Vital Signs, click to edit/add: Last Vital Signs Temp 97.5 F L 06/16/25 01:58 Pulse 67 06/16/25 01:54 Resp 16 06/16/25 01:58 BP 119/70 06/16/25 01:54 O2 Del Method Room Air 06/16/25 01:58 Documenting provider has reviewed patient's vital signs: yes Common normals: no apparent distress Respiratory Common normals: normal respiratory effort and clear to auscultation bilaterally Cardio Common normals: regular rate and regular rhythm GI Common normals: Normal to inspection, nondistended, normoactive bowel sounds present Extremity Common normals: no clubbing, cyanosis or edema and no calf tenderness Results Labs Labs: Short CBC 06/16/25 Range/Units 05:41 WBC 16.0 H (4.0-11.0) 10^3/uL Hgb 9.9 L (12.0-16.0) g/dL Hct 31.1 L (36.0-48.0) % Plt Count 203 (150-450) 10^3/uL OB - PN: A/P Plan - Vaginal Delivery Plan: routine care, discharge home and follow up 6 weeks Time Spent with Patient Time: Total time spent is greater than 50% in coordination of care (as documented) at patient's floor/unit and/or counseling patient: Total time spent with greater than 50% in coordination of care (as documented) at patient's floor/unit and/or counseling patient: less than 15 minutes
[2025-06-16] MEDS: DOCUSATE SODIUM 100 MG CAPSULE PO (08:56)
[2025-06-16 09:00] VITALS: TEMP 36.7
[2025-06-16 09:02] VITALS: BP 125/67; PULSE 86
[2025-06-16] MEDS: RHO(D) IMMUNE GLOBULIN 1,500 UNIT SYRINGE 1500 UNIT IV (15:31)
[2025-06-16 15:49] VITALS: BP 126/61; PULSE 75
[2025-06-16 16:11] VITALS: TEMP 36.8
== END 2025-06-16 19:07 | disposition home or self-care (01) | DRG 807 ==
PROVIDERS: Admitting Provider Obstetrics & Gynecology; PCP Nurse Practitioner Family; Visit Provider Obstetrics & Gynecology
DX: O80 Encounter for full-term uncomplicated delivery (principal); Z37.0 Single live birth; Z3A.37 37 weeks gestation of pregnancy
CPT/HCPCS: 36415; 59050; 59410; 80307; 85025; 85027; 85461; 86850; 86900; 86901; J0290; J2791

== ENCOUNTER 2025-06-23 08:23 | Outpatient (OUT) | payer OTHER, SELFPAY ==
--- OUTSIDE RECORDS SUMMARY | 2025-06-10 11:20 | XMS_ITS | Encounter Summary ---
Author Organization [facility] Address [address] [facility] [place] [address] Care Team Providers Care Filling Carrier Name Role Phone Unallocated, Noms Provider MD Primary Care Provi aristeo TomásTreasure leach DO Unavailable [phone] Reason for Visit * ReasonCommentsRoutine Visit Encounter Details DateTypeDepartmentCare Team (Latest Contact Info)Ztvguggecer21/17/2025 11:20 AM ESTRoutine NATALIE [place] OBGYN [address] [place] [address] Junito Ortiz DO [address] [facility] [address] [address] [place] [address] Third trimester ([facility]); 36 weeks gestation of ([facility]) Social History Tobacco UseTypesPacks/DayYears UsedDateSmoking Tobacco: NeverSmokeless Tobacco: NeverAlcohol UseStandard Drinks/WeekCommentsYes0 (1 standard drink = 0.6 oz pure alcohol)One drink per monthEstimated Date of DeliveryCommentsYes 6Based on last menstrual period of 09/28/2024Sex and Gender Information ValueDate RecordedSex Assigned at BirthNot on fileLegal WqyBgqgum08/15/2023 8:11 PM EDTGender IdentityNot on fileSexual OrientationNot on filedocumented as of this encounter Last Filed Vital Signs Vital SignReadingTime TakenCommentsBlood Ympffrza575/7412/ 11:51 AM EST Pulse--Temperature--Respiratory Rate--Oxygen Saturation--Inhaled Oxygen Concentration--Zoucpk157 kg (230 lb)06/10/2025 11:51 AM ESTHeight--Body Mass [...] Problems Diagnosis Date Noted Positive urine test ([facility]) 12/03/2024 Resolved Ambulatory Problems Diagnosis Date Noted [...] nursing note reviewed. Exam conducted with a residential energy auditor present. Vitals: Estimated body mass index is 34.97 kg/m?? as calculated from the following: Height as of 01/23/24: 5' 8 . Weight as of this encounter: 230 lb. BP: 124/74 Patient's last menstrual period was 09/28/2024. Assessment/Plan ICD-10-CM 1. Third trimester ([facility]) Z34.93 POCT urinalysis dipstick manually resulted CULTURE, GROUP B STREP WITH SUSCEPTIBLITY CULTURE, GROUP B STREP WITH SUSCEPTIBLITY 2. 36 weeks gestation of ([facility]) Z3A.36 Assessment/Plan Patient is doing well but [...] GROUP B STREP WITH SUSCEPTIBLITYLabRoutine Third trimester ([facility]) Expected: 06/10/2025, Expires: 06/10/2026documented as of this encounter Procedures Procedure NamePriorityDate/TimeAssociated DiagnosisCommentsPOCT URINALYSIS ORKWMBEZKrdzzal82/17/2025 11:59 AM EST Third trimester ([facility]) documented in this encounter Results * (ABNORMAL) [...] this encounter Visit Diagnoses Diagnosis Third trimester ([facility]) state, incidental 36 weeks gestation of ([facility]) documented in this encounter Care Teams Team MemberRelationshipSpecialtyStart DateEnd Date Unallocated, Noms Provider, [address] [place] [address] PCP - GeneralFamily Vsgmftvu89/14/24 Treasure England DO [address] [place] [address] Referring KhqrpwhllThkimyzno92/14/24documented as of this encounter
--- OUTSIDE RECORDS SUMMARY | 2025-06-23 08:27 | XMS_ITS | Encounter Summary ---
Author Organization [facility] Address [address] [facility] [place] [address] Care Team Providers Care Technology Assistant Name Role Phone Unallocated, Noms Provider MD Primary Care Provi aristeo TomásTreasure leach DO Unavailable [phone] Encounter Details DateTypeDepartmentCare Team (Latest Contact Info)Yyngtyulqmq85/18/2025Clinisync Result Encounter [facility] External Department Unsolicited Junito Ortiz, DO [address] [place] [address] Social History Tobacco UseTypesPacks/DayYears UsedDateSmoking Tobacco: NeverSmokeless Tobacco: NeverAlcohol UseStandard Drinks/WeekCommentsYes0 (1 standard drink = 0.6 oz pure alcohol)One drink per monthEstimated Date of DeliveryCommentsYes 6Based on last menstrual period of 09/28/2024Sex and Gender Information ValueDate RecordedSex Assigned at BirthNot on fileLegal HyjMhtaus38/15/2023 8:11 PM EDTGender IdentityNot on fileSexual OrientationNot on filedocumented as of this encounter Plan of Treatment Not on file documented as of this encounter Procedures Procedure NamePriorityDate/TimeAssociated DiagnosisCommentsAMNISURERoutine 06/11/2025 4:05 PM EST URINE CULTURE - UVRSYjilsgt74/18/2025 4:00 PM EST [facility] UA (CLEAN/CATCH) BELT BUCKLE MAKER/MICRO IF IND.Dxldqpg3106/11/2025 4:00 PM EST documented in this encounter Results * AMNISURE (06/11/2025 4:05 PM EST)ComponentValueRef RangeTest MethodAnalysis TimePerformed AtPathologist SignatureTBH AMNISURENEGATIVENEGATIVETBHSpecimen (Source)Anatomical Location / LateralityCollection Method / VolumeCollection TimeReceived Time06/11/2025 4:05 PM EST06/11/2025 4:07 PM EST Narrative [facility] - 06/11/2025 4:22 PM EST Authorizing ProviderResult TypeResult StatusCorey Angel DOLAB BLOOD ORDERABLES Final ResultPerforming OrganizationAddressCity/State/ZIP CodePhone Number [facility] * [facility] - [facility] (06/11/2025 4:00 [...] BLOOD ORDERABLES Final ResultPerforming OrganizationAddressCity/State/ZIP CodePhone Number [facility] * (ABNORMAL) [facility] UA (CLEAN/CATCH) BELT BUCKLE MAKER/MICRO IF IND. (06/11/2025 4:00 PM EST) ComponentValueRef [...] Date Unallocated, Noms Provider, [address] [place] [address] PCP - GeneralFamily Uqkmfxfk74/14/24 Treasure England DO [address] [place] [address] Referring UfisrqtsmXivdnqlsv79/14/24documented as of this encounter
--- OUTSIDE RECORDS SUMMARY | 2025-06-23 08:27 | XMS_ITS | Encounter Summary ---
Author Organization [facility] Address [address] [facility] [place] [address] Care Team Providers Care Vending Machine Filler Name Role Phone Unallocated, Nomneena Provider Primary Care Provi aristeo Treasure England DO Unavailable [phone] Encounter Details DateTypeDepartmentCare Team (Latest Contact Info)Mmsvfmfbwpq95/17/2025bstract NATALIE Brown [facility] [address] [place] [address] Junito Ortiz DO [address] [facility] [address] [place]am [place], [facility] Social History Tobacco UseTypesPacks/DayYears UsedDateSmoking Tobacco: NeverSmokeless Tobacco: NeverAlcohol UseStandard Drinks/WeekCommentsYes0 (1 standard drink = 0.6 oz pure alcohol)One drink per monthEstimated Date of DeliveryCommentsYes 6Based on last menstrual period of 09/28/2024Sex and Gender Information ValueDate RecordedSex Assigned at BirthNot on fileLegal SzvMpyrae35/15/2023 8:11 PM EDTGender IdentityNot on fileSexual OrientationNot on filedocumented as of this encounter Plan of Treatment Not on file documented as of this encounter Visit Diagnoses Not on filedocumented in this encounter Care Teams Team MemberRelationshipSpecialtyStart DateEnd Date Unallocated, Noms Provider, [address] [facility] [place] [address] PCP - GeneralFamily Qvnxphqf37/14/24 Treasure England DO [address] [place] [address] Referring NbyehucfhFgjypekfn72/14/24documented as of this encounter
--- OUTSIDE RECORDS SUMMARY | 2025-06-23 08:27 | XMS_ITS | Encounter Summary ---
Author Organization [facility] Address [address] [facility] [place] [address] Care Team Providers Care Welder/Fabricator Name Role Phone Unallocated, Noms Provider MD Primary Care Provi aristeo TomásTreasure leach DO Unavailable [phone] Encounter Details DateTypeDepartmentCare Team (Latest Contact Info)Dmuqguomikn24/27/2025Clinisync Result Encounter [facility] External Department Unsolicited Lora Ortiz, DO [address] [place] [address] Social History Tobacco UseTypesPacks/DayYears UsedDateSmoking Tobacco: NeverSmokeless Tobacco: NeverAlcohol UseStandard Drinks/WeekCommentsYes0 (1 standard drink = 0.6 oz pure alcohol)One drink per monthEstimated Date of DeliveryCommentsYes 6Based on last menstrual period of 09/28/2024Sex and Gender Information ValueDate RecordedSex Assigned at BirthNot on fileLegal HgeMqtsip92/15/2023 8:11 PM EDTGender IdentityNot on fileSexual OrientationNot on filedocumented as of this encounter Plan of Treatment Not on file documented as of this encounter Procedures Procedure NamePriorityDate/TimeAssociated DiagnosisCommentsECG 12-LEAD06/20/2025 6:49 AM EST documented in this encounter Results * ECG 12-LEAD (06/20/2025 6:49 AM EST)Anatomical RegionLateralityModalityOther Specimen (Source)Anatomical Location / LateralityCollection Method / Volume Collection TimeReceived Time06/20/2025 6:49 AM EST Narrative 06/21/2025 12:58 PM EST [facility] ?[address] ? [place] [address] ? Electrocardiograph Report ? Signed ? Patient: NATHANIEL TAYLOR ?MR#: [id number] ?? : 1995 ?Acct:[id number] ?? Age/Sex: 29 / F ?ADM Date: 04/22/25 ?? Loc: CARD ? Attending Dr: Lora Ortiz D.O. ? Ordering Physician: Lora Ortiz D.O. ?? Date of Service: 04/22/25 ?? Procedure(s): ECG 12 lead ?? Accession Number(s): [id number] ? cc: ?[facility] ? Test Date: ?2025-06-20 ?? Pat Name: ? NATHANIEL TAYLOR ?Department: ? Room: ? - ?? Gender: ? Female ? 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 : ?1995 ? Requested By: LORA ORTIZ ?? Order Number: [id number] ?Reading MD: ?? CHANNING ??Luiz CHUNG ? Measurements ?? Intervals ?[place] ? Rate: ? 76 ? P: ?56 ?? UT: ? 164 ?QRS: ?28 ?? QRSD: ? 90 ? T: ?11 ?? QT: ? 368 ? QTc: ?398 ? Interpretive Statements ?? 1100 Sinus rhythm ?? 8100 Low QRS voltage ?? 9150 ??abnormal ECG ? Compared to ECG 04/22/2025 08:28:49 ?? Low QRS voltage now present ?? Electronically Signed On 06-21-2025 12:57:50 EST by CHANNING ??Luiz CHUNG ? Dictated By: ?CHANNING CHUNG ? Signed By: ?06/21/25 1258 ?06/21/25 1258 ? DD/ 0649 ? TD/TT: ? Conservation Policy Analyst: Procedure Note Radiology, Radiologist, - 06/21/2025 [place] [address] Electrocardiograph Report Signed Patient: NATHANIEL TAYLOR AMR#: [id number] : 1995Acct:[id number] Age/Sex: 29 / FADM Date: 04/22/25 Loc: CARD Attending Dr: Lora Ortiz D.O. Ordering Physician: Lora Ortiz D.O. 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 Measurements Intervals [place] Rate: 76 P: 56 UT: 164 QRS: 28 QRSD: 90 T: 11 QT: 368 QTc: 398 Interpretive Statements 1100 Sinus rhythm 8100 Low QRS voltage 9150 abnormal ECG Compared to ECG 04/22/2025 08:28:49 Low QRS voltage now present Electronically Signed On 06-21-2025 12:57:50 EST by CHANNING CHUNG M.D. Dictated By: CHANNING CHUNG Signed By:06/21/25 1258 06/21/25 1258 DD/ 0649 TD/TT: Conservation Policy Analyst: Authorizing ProviderResult TypeResult StatusCorey Angel DOCLINISYNC IMAGINGFinal Result documented in this encounter Visit Diagnoses Not on filedocumented in this encounter Care Teams Team MemberRelationshipSpecialtyStart DateEnd Date Unallocated, Noms Provider, [address] [place] [address] PCP - GeneralFamily Qioxlmmi88/14/24 Treasure England DO [address] [place] [address] Referring BdyfqgfgwIaksjlhum64/14/24documented as of this encounter
--- OUTSIDE RECORDS SUMMARY | 2025-06-23 08:27 | XMS_ITS | Encounter Summary ---
Author Organization [facility] Address [address] [facility] [place] [address] Care Team Providers Care Associate Principal Name Role Phone Unallocated, Noms Provider Primary Care Provi aristeo Treasure England DO Unavailable [phone] Encounter Details DateTypeDepartmentCare Team (Latest Contact Info)Lgbfmljboiw63/18/2025External Result Encounter [facility] External Department Unsolicited Junito Ortiz, DO [address] [facility] [place] [address] Social History Tobacco UseTypesPacks/DayYears UsedDateSmoking Tobacco: NeverSmokeless Tobacco: NeverAlcohol UseStandard Drinks/WeekCommentsYes0 (1 standard drink = 0.6 oz pure alcohol)One drink per monthEstimated Date of DeliveryCommentsYes 6Based on last menstrual period of 09/28/2024Sex and Gender Information ValueDate RecordedSex Assigned at BirthNot on fileLegal UhfWpjywf81/15/2023 8:11 PM EDTGender IdentityNot on fileSexual OrientationNot on filedocumented as of this encounter Plan of Treatment Not on file documented as of this encounter Procedures Procedure NamePriorityDate/TimeAssociated DiagnosisCommentsCULTURE, URINE, TSXHPBBAvsgbzj48/18/2025 4:00 PM EST documented in this encounter Results * Urine culture (06/11/2025 4:00 PM EST)ComponentValueRef RangeTest Method Analysis TimePerformed AtPathologist SignatureFRMC NOTE?75,000 colonies/ml mixed ?bacterial skin contaminants ?2 Days 06/13/2025 9:59 AM [facility] CtrSpecimen (Source)Anatomical Location / LateralityCollection Method / VolumeCollection TimeReceived TimeUrine Urine specimen obtained by clean catch procedure / Vmbhcxz3806/11/2025 4:00 PM EST 06/11/2025 9:02 PM ESTComment:Clean-Voided Midstream Narrative [facility] - 06/13/2025 9:59 AM EST Diagnosis: Leakage Comment: Authorizing ProviderResult TypeResult StatusCorey Angel DOLAB MICROBIOLOGY - GENERAL ORDERABLESFinal ResultPerforming OrganizationAddressCity/State/ZIP Code Phone Number [facility] [address] [place] [address], [facility] [address] [place] [address] documented in this encounter Visit Diagnoses Not on filedocumented in this encounter Care Teams Team MemberRelationshipSpecialtyStart DateEnd Date Unallocated, Noms Provider, [address] [place] [address] PCP - GeneralFamily Obpzoqcy73/14/24 Treasure England DO [address] [place] [address] Referring WuymgamenLksnljzkt66/14/24documented as of this encounter
--- OUTSIDE RECORDS SUMMARY | 2025-06-23 08:27 | XMS_ITS | Encounter Summary ---
Author Organization [facility] Address [address] [facility] [place] [address] Care Team Providers Care State Federal Relations Deputy Director Name Role Phone Unallocated, Noms Provider MD Primary Care Provi aristeo TomásTreasure leach DO Unavailable [phone] Encounter Details DateTypeDepartmentCare Team (Latest Contact Info)Lpbnxhipztf69/22/2025Clinisync Result Encounter [facility] External Department Unsolicited Junito Ortiz, DO [address] [facility] [place] [address] Social History Tobacco UseTypesPacks/DayYears UsedDateSmoking Tobacco: NeverSmokeless Tobacco: NeverAlcohol UseStandard Drinks/WeekCommentsYes0 (1 standard drink = 0.6 oz pure alcohol)One drink per monthEstimated Date of DeliveryCommentsYes 6Based on last menstrual period of 09/28/2024Sex and Gender Information ValueDate RecordedSex Assigned at BirthNot on fileLegal KhjAczazc32/15/2023 8:11 PM EDTGender IdentityNot on fileSexual OrientationNot on filedocumented as of this encounter Plan of Treatment Not on file documented as of this encounter Procedures Procedure NamePriorityDate/TimeAssociated DiagnosisCommentsTBH DRUG SCREEN RAPID (URINE)Scbgmeg3106/15/2025 7:35 AM EST HMHP CBC WITH PLATELET NO IULHJDBHVICEStxwese25/22/2025 5:38 AM EST documented in this encounter Results * [facility] DRUG SCREEN RAPID (URINE) (06/15/2025 7:35 AM EST)ComponentValueRef Range Test MethodAnalysis TimePerformed AtPathologist SignatureCANNABINOID SCREEN URINENEGATIVENEGATIVETBHPHENCYCLIDINE SCREEN URINENEGATIVENEGATIVETBHCOCAINE SCREEN URINENEGATIVENEGATIVETBHMETHAMPHETAMINES SCREEN URINENEGATIVENEGATIVE TBHOPIATE SCREEN URINENEGATIVENEGATIVETBHAMPHETAMINE SCREEN URINENEGATIVE NEGATIVETBHBENZODIAZEPINES SCREEN URINENEGATIVENEGATIVETBHTRICYCLIC ANTIDEPRESSANT URINENEGATIVENEGATIVETBHMETHADONE SCREEN URINENEGATIVENEGATIVE TBHBARBITURATES SCREEN URINENEGATIVENEGATIVETBHOXYCODONE SCREEN URINENEGATIVE NEGATIVETBHBUPRENORPHINE SCREEN URINENEGATIVENEGATIVETBHComment: DRUG CLASS TEST SYSTEM CUT-OFF CONCENTRATIONS ARE FOLLOWS: AMP (Amphetamine): 500 ng/mL BAR (Barbiturates): 200 ng/mL BZO (Benzodiazepines): 150 ng/mL BUP (Buprenorphine): 10 ng/mL ADAM (Cocaine): 150 ng/mL mAMP (Methamphetamine): 500 ng/mL MTD (Methadone): 200 ng/mL OPI (Opiates): 100 ng/mL OXY (Oxycodone): 100 ng/mL PCP (Phencyclidine): 25 ng/mL THC (Cannabinoids): 50 ng/mL TCA (Trycyclic Antidepressants): 300 ng/mL Specimen (Source)Anatomical Location / LateralityCollection Method / Volume Collection TimeReceived Time06/15/2025 7:35 AM EST06/15/2025 10:29 AM EST Narrative [facility] - 06/15/2025 11:03 AM EST Authorizing ProviderResult TypeResult StatusCorey Angel DOCLINISYNCFinal Result Performing OrganizationAddressCity/State/ZIP CodePhone Number [facility] * (ABNORMAL) HMHP CBC WITH PLATELET NO DIFFERENTIAL (06/15/2025 5:38 AM EST) ComponentValueRef RangeTest MethodAnalysis TimePerformed AtPathologist SignatureTBH WBC10.64.0 - 11.0 10 3/uLTBHTBH RBC4.12(L)4.20 - 5.40 10 6/uLTBH TBH HGB10.8(L)12.0 - 16.0 g/dLTBHTBH HCT33.7(L)36.0 - 48.0 %TBHTBH MCV81.881.0 - 99.0 fLTBHTBH MCH26.2(L)26.7 - 34.0 pgTBHTBH MCHC32.029.9 - 35.2 g/dLTBHTBH RDW14.611.0 - 15.0 %TBHTBH WWD415949 - 450 10 3/uLTBHTBH MPV10.69.5 - 13.5 fL TBHSpecimen (Source)Anatomical Location / LateralityCollection Method / Volume Collection TimeReceived Time06/15/2025 5:38 AM EST06/15/2025 5:59 AM EST Narrative [facility] - 06/15/2025 6:05 AM EST Authorizing ProviderResult TypeResult StatusCorey Angel DOCLINISYNCFinal Result Performing OrganizationAddressCity/State/ZIP CodePhone Number [facility] TB documented in this encounter Visit Diagnoses Not on filedocumented in this encounter Care Teams Team MemberRelationshipSpecialtyStart DateEnd Date Unallocated, Noms Provider, [address] [place], [place] [address] PCP - GeneralFamily Pxpabnvl95/14/24 Treasure England DO [address] [place] [address] Referring DlbkbtgtpYkykszjbb15/14/24documented as of this encounter
--- OUTSIDE RECORDS SUMMARY | 2025-06-23 08:27 | XMS_ITS | Encounter Summary ---
Author Organization [facility] Address [address] [facility] [place] [address] Care Team Providers Care Tree Faller Name Role Phone Unallocated, Noms Provider Primary Care Provi aristeo Treasure England DO Unavailable [phone] Encounter Details DateTypeDepartmentCare Team (Latest Contact Info)Ftrsbfjapnj67/18/2025Clinisync Result Encounter [facility] External Department Unsolicited Lora Ortiz, DO [address] [facility] [place] [address] Social History Tobacco UseTypesPacks/DayYears UsedDateSmoking Tobacco: NeverSmokeless Tobacco: NeverAlcohol UseStandard Drinks/WeekCommentsYes0 (1 standard drink = 0.6 oz pure alcohol)One drink per monthEstimated Date of DeliveryCommentsYes 6Based on last menstrual period of 09/28/2024Sex and Gender Information ValueDate RecordedSex Assigned at BirthNot on fileLegal HsvNrhtff33/15/2023 8:11 PM EDTGender IdentityNot on fileSexual OrientationNot on filedocumented as of this encounter Plan of Treatment Not on file documented as of this encounter Procedures Procedure NamePriorityDate/TimeAssociated DiagnosisCommentsUS OB BPP W NON-TMYDSB7206/11/2025 6:18 PM EST documented in this encounter Results * US OB BPP W NON-STRESS (06/11/2025 6:18 PM EST)Anatomical Region LateralityModalityOtherSpecimen (Source)Anatomical Location / Laterality Collection Method / VolumeCollection TimeReceived Time06/11/2025 6:18 PM EST Narrative 06/11/2025 6:21 PM EST [facility] ?[address] ? [place] [address] ? Ultrasound Report ? Signed ? Patient: CLAUDIA,NATHANIEL A ?MR#: [id number] ?? : 1995 ?Acct:[id number] ?? Age/Sex: 29 / F ?ADM Date: 06/11/25 ?? Loc: FBC ??250-1 ? Attending Dr: Lora Ortiz D.O. ? Ordering Physician: Lora Ortiz D.O. ?? Date of Service: 06/11/25 ?? Procedure(s): US OB BPP w non-stress ?? Accession Number(s): [id number] ? cc: Kelly Mckenzie NP; Lora Ortiz D.O. ? [facility] ? [address] [facility] ? [place] [address] ? Patient Name: ?? NATHANIEL TAYLOR ? MRN: [facility]:[id number] ? date: 1995 ?Sex: F ?? Assigned Patient Location: LAB ?? Current Patient Location: LAB ?? Accession/Order Number: [id number] ?? Exam Date: 06/11/2025 ??17:41 ?Report Date: [...] Dictation Location: RADIO-PC-17 ? Electronically authenticated by: [id number] ??Y ?? Date: 06/11/2025 ??18:18 ? Dictated By: ?Mateus Momin M.D. ? Signed By: ?/18/ 1821 ? DD/ 1818 ? TD/TT: ? Citrus Peeler: Procedure Note Radiology, Radiologist, MD - 06/11/2025 [place] [address] Ultrasound Report Signed Patient: NATHANIEL TAYLOR AMR#: [id number] : 1995Acct:[id number] Age/Sex: 29 / FADM Date: 06/11/25 Loc: [facility] 250-[address]: Lora Ortiz D.O. Ordering Physician: Lora Ortiz D.O. Date of Service: 06/11/25 Procedure(s): US OB BPP w non-stress Accession Number(s): [id number] cc: Kelly Mckenzie GLUING MACHINE FEEDER; Lora Ortiz D.O. The [place] [id number] Patient Name: NATHANIEL TAYLOR MRN: [facility]:[id number] date: 1995 Sex: F Assigned Patient Location: LAB Current Patient Location: LAB Accession/Order Number: [id number] Exam Date: 06/11/2025 17:41 Report Date: 06/11/2025 [...] Momin M.D. 06/11/2025 6:18 PM Dictation Location: [place] [address] Electronically authenticated by: [id number] Y Date: 8:18 Dictated By: Mateus Momin M.D. Signed By:06/11/251820 DD/ 17 TD/TT: Citrus Peeler: Authorizing ProviderResult TypeResult StatusCorey Angel DOCLINISYNC IMAGINGFinal Result documented in this encounter Visit Diagnoses Not on filedocumented in this encounter Care Teams Team MemberRelationshipSpecialtyStart DateEnd Date Unallocated, Noms Provider, [address] [place] [address] PCP - GeneralFamily Dibgkcyr50/14/24 Treasure England DO [address] [place] [address] Referring FjlnpqsbxMwtfnuyyy09/14/24documented as of this encounter
--- OUTSIDE RECORDS SUMMARY | 2025-06-23 08:27 | XMS_ITS | Clinical Summary ---
Author Organization [facility] Healthcare Address [address] [place] [address] Care Team Providers Care Breaker Oiler Name Role Phone Unallocated, [facility] Provider MD Primary Care Provi aristeo Treasure [place] DO Unavailable [phone] Allergies Active AllergyReactionsCriticalityNoted DateCommentsDust Mite Wmvnxiy6212/25/2023 Other Reaction(s): Unknown Reaction Pollen Tslfavb3709/19/2023 Other Reaction(s): Unknown Reaction Medications MedicationSigDispense QuantityRefillsLast FilledStart DateEnd DateStatus magnesium 100 MG tablet 3Active Probiotic Product (PROBIOTIC ADVANCED PO) ProbioticActive pyridoxine (Vitamin B-6) 25 MG tablet Take 25 mg by mouth DailyActive Doxylamine Succinate, Sleep, (UNISOM PO) Take by mouthActive ondansetron (Zofran) 4 MG tablet Indications:Nausea and vomiting in ([facility])Take 1 tablet (4 mg) by mouth [...] 10 MG tablet Indications:Nausea and vomiting in ([facility])TAKE 1 TABLET BY MOUTH IN MORNING,AT NOON,IN EVENING 30 MINUTES PRIOR TO MEALS NEEDED FOR NAUSEA 90 tablet 5Active metoclopramide (Reglan) 10 MG tablet Indications:Nausea and vomiting in ([facility])TAKE 1 TABLET BY MOUTH IN MORNING,AT NOON,IN EVENING 30 MINUTES PRIOR TO MEALS NEEDED FOR NAUSEA 90 tablet Discontinued terconazole (Terazol 7) 0.4 % vaginal cream Indications:Yeast infectionInsert 1 applicator into the vagina at bedtime for 7 days 45 g Expired Active Problems ProblemNoted DateDiagnosed DatePositive urine test ([facility])12/03/2024 Estimated Date of IgttlkumJdmnauumMdv90/11/2026ased on last menstrual period of 09/28/2024 Encounters DateTypeDepartmentCare OgobIxpilqjrqgz00/30/2025[place] [address] Lora Ortiz, DO 06/20/2025linisync Result Encounter NOMS External Department Unsolicited Lora Ortiz, DO 06/16/2025linisync Result Encounter NOMS External Department Unsolicited Lora Ortiz, DO 06/15/2025linisync Result Encounter NOMS External Department Unsolicited Lora Ortiz, DO 06/11/2025External Result Encounter NOMS External Department Unsolicited Lora Ortiz, DO 06/11/2025linisync Result Encounter NOMS External Department Unsolicited AngelLora denis, DO 06/11/2025linisync Result Encounter NOMS External Department Unsolicited Lora Ortiz, DO 06/10/2025 11:20 AM ESTRoutine [facility] [address] [place] [address] Lora Ortiz, DO Third trimester ([facility]); 36 weeks gestation of ([facility])06/10/2025linisync Result Encounter NOMS External Department Unsolicited Lora Ortiz, DO 06/10/2025bstract [facility] [facility] [address] [place] [address] Lora Ortiz, DO 06/10/2025amboo flowsheet [facility] [place] [facility] [address] [place] [address] Lora Ortiz, DO 5Clinisync Result Encounter NOMS External Department Unsolicited Lora Ortiz, DO 06/01/2025 8:00 AM ESTAncillary Procedure [facility] [place] [facility] [address] [place] [address] Excessive growth affecting management of , antepartum, single or unspecified fetus ([facility])05/27/2025 1:00 PM ESTRoutine [facility] [place] [facility] [address] [place] [address] Lora Ortiz, DO 34 weeks gestation of ([facility]); Third trimester ([facility]); Yeast infection; Excessive growth affecting management of , antepartum, single or unspecified fetus ([facility])05/27/2025linisync Result Encounter NOMS External Department Unsolicited Lora Ortiz, DO 05/22/2025linisync Result Encounter NOMS External Department Unsolicited Lora Ortiz, DO 05/22/2025Refill [facility] [place] [facility] [address] [place] [address] Lora Ortiz, DO Nausea and vomiting in ([facility])5Clinisync Result Encounter NOMS External Department Unsolicited Lora Ortiz, DO 05/13/2025 1:20 PM ESTRoutine [facility] [place] [facility] [address] [place] [address] Nicole Ghosh PA 32 weeks gestation of ([facility]); Third trimester ([facility]); Racing heart beat05/13/2025amboo flowsheet [facility] [place] [facility] [address] [place] [address] Nicole Ghosh PA 04/29/2025 1:30 PM ESTRoutine [facility] [place] [facility] [address] [place] [address] Lora Ortiz, DO Third trimester ([facility]); 30 weeks gestation of ([facility])04/29/2025 1:00 PM ESTAncillary Procedure [facility] [place] [facility] [address] [place] [address] [place] [address] size inconsistent with dates ([facility])5Clinisync Result Encounter NOMS External Department Unsolicited Lora Ortiz, DO 04/22/2025linisync Result Encounter NOMS External Department Unsolicited Lora Ortiz, DO 04/15/2025 1:00 PM EDTRoutine [facility] [place] [facility] [address] [place] [address] [place] [address] Lora Ortiz, Third trimester ([facility]); 28 weeks gestation of ([facility]); size inconsistent with dates ([facility]); Racing heart beat04/15/2025bstract [facility] [place] [facility] [address] [place] [address] Mable Dior MA 5Bamboo flowsheet [facility] [place] [facility] [address] [place] [address] [place] [address] Lora Ortiz, DO 04/13/2025bstract [facility] [place] [facility] [address] [place] [address] [place] [address] Mable Dior MA 5Abstract [facility] [place] [facility] [address] [place] [address] Marge Kirkland, ZAC 04/01/2025Telephone [facility] [facility] [address] [place] [address] [place] [address] Ariadna Bowden MA 04/01/2025linisync Result Encounter NOMS External Department Unsolicited Marge Kirkland NP from Last 3 Months [...] ValueDate RecordedSex Assigned at BirthNot on fileLegal VonLttdts96/15/2023 8:11 PM EDTGender IdentityNot on fileSexual OrientationNot on file Last Filed Vital Signs Vital SignReadingTime TakenCommentsBlood Nutvfqop638/7406/10/2025 11:51 AM EST Pulse--Temperature--Respiratory Rate--Oxygen Saturation--Inhaled Oxygen Concentration--Nrfxws768 kg (230 lb)06/10/2025 11:51 AM HQCUwnffs544.7 cm (5' 8 )01/23/2024 1:31 PM EDTBody Mass Index34.9701/23/2024 1:31 PM EDT Plan of Treatment Health MaintenanceDue DateLast DoneCommentsInfluenza Vaccine (#1)02/23/2025 Pneumococcal Vaccine: Pediatrics (0 to 5 Years) and At-Risk Patients (6 to 64 Years)Aged OutNo longer eligible based on patient's age to complete this topic Procedures Procedure NamePriorityDate/TimeAssociated DiagnosisCommentsECG 12-LEAD06/20/2025 6:49 AM EST ALL CBC WITH AUTO ONDYCnqjerw98/23/2025 5:41 AM EST [facility] DRUG SCREEN RAPID (URINE)Qxmtifv3406/15/2025 7:35 AM EST [facility] CBC WITH PLATELET NO WPLMJQMXIHYRRflubfz73/22/2025 5:38 AM EST US OB BPP W NON-NXRNEK4606/11/2025 6:18 PM EST HKEIHFLPFxcprth39/18/2025 4:05 PM EST URINE CULTURE - EGBJAifbron82/18/2025 4:00 PM EST [facility] UA (CLEAN/CATCH) BROADCAST TECHNICIAN/MICRO IF IND.Ziouczj1506/11/2025 4:00 PM EST CULTURE, URINE, UPKRKUIZwqfgff52/18/2025 4:00 PM EST POCT URINALYSIS HWNACKANPjvcqim72/17/2025 11:59 AM EST Third trimester ([facility]) STREP GP B CULTURE+ELSMUannrqw34/17/2025 11:48 AM EST US OB BPP W NON-LAXNYZ3306/05/2025 4:51 PM EST US OB FOLLOW UP TRANSABDOMINAL GWKYQSRZBgqrebw23/08/2025 8:18 AM EST Excessive growth affecting management of , antepartum, single or unspecified fetus ([facility]) POCT URINALYSIS UPWTBIZUIerfcfl67/03/2025 1:16 PM EST 34 weeks gestation of ([facility]) Third trimester ([facility]) US OB BPP W NON-VLIHBJ2805/27/2025 10:21 AM EST US OB BPP W NON-DCDMJJ3305/22/2025 12:44 PM EST US OB BPP W NON-MHMKJS0105/15/2025 3:36 PM EST POCT URINALYSIS XHZQHKVBMnevwot32/19/2025 1:32 PM EST 32 weeks gestation of ([facility]) Third trimester ([facility]) POCT URINALYSIS LXHILRAOZyiaogz08/05/2025 1:42 PM EST 30 weeks gestation of ([facility]) US OB FOLLOW UP TRANSABDOMINAL LTWSYCCMRxqxqez11/05/2025 1:17 PM EST size inconsistent with dates ([facility]) CA ECHO DOPPLER QPHYNJFG55/29/2025 6:12 PM EDT ECG 12-LEAD04/22/2025 8:28 AM EDT POCT URINALYSIS ZGXPJMWBEhsusli59/22/2025 1:16 PM EDT 28 weeks gestation of ([facility]) ALL CBC WITH AUTO BMIISpxsfqw43/08/2025 9:19 AM EDT GLUCOSE 1 FZDFCmmjhlv97/08/2025 9:19 AM EDT from Last 3 Months Results * ECG 12-LEAD (06/20/2025 6:49 AM EST) Only the most recent of2 resultswithin the time period is included. Anatomical RegionLateralityModalityOtherSpecimen (Source)Anatomical Location / LateralityCollection Method / VolumeCollection TimeReceived Time06/20/2025 6:49 AM EST Narrative 06/21/2025 12:58 PM EST [facility] ?[address] ? [place], [facility] ? Electrocardiograph Report ? Signed ? Patient: NATHANIEL TAYLOR A ?MR#: [id number] ?? : 1995 ?Acct:[id number] ?? Age/Sex: 29 / F ?ADM Date: //25 ?? Loc: CARD ? Attending Dr: Lora Ortiz D.O. ? Ordering Physician: Lora Ortiz D.O. ?? Date of Service: 04/22/25 ?? Procedure(s): ECG 12 lead ?? Accession Number(s): [id number] ? cc: ?[facility] ? Test Date: ?2025-06-20 ?? Pat Name: ? NATHANIEL TAYLOR ?Department: ? Room: ? - ?? Gender: ? Female ? Tonger: ? : ?1995 ? Requested By: LORA ORTIZ ?? Order Number: [id number] ?Reading MD: ?? CHANNING ??Luiz CHUNG ? Measurements ?? Intervals ?[place] ? Rate: ? 76 ? P: ?56 ?? AL: ? 164 ?QRS: ?28 ?? QRSD: ? [...] 1258 ? DD/ 0649 ? TD/TT: ? Disc Recordist: Procedure Note Radiology, Radiologist, MD - 06/21/2025 [place] [address] Electrocardiograph Report Signed Patient: NATHANIEL TAYLOR AMR#: [id number] : 1995Acct:[id number] Age/Sex: 29 / FADM Date: 04/22/25 Loc: CARD Attending Dr: Lora Ortiz D.O. Ordering Physician: Lora Ortiz D.O. Date of Service: 04/22/25 Procedure(s): ECG 12 lead Accession Number(s): [id number] cc: [facility] Test Date: 2025-06-20 Pat Name: NATHANIEL TAYLOR Department: Room: - Gender: Female Tonger: : 1995 Requested By: LORA ORTIZ Order Number: [id number] Reading MD: CHANNING CHUNG M.D. Measurements Intervals [place] Rate: 76 P: 56 AL: 164 QRS: 28 QRSD: 90 T: 11 QT: 368 QTc: 398 Interpretive Statements 1100 Sinus rhythm 8100 Low QRS voltage 9150 abnormal ECG Compared to ECG 04/22/2025 08:28:49 Low QRS voltage now present Electronically Signed On 06-21-2025 12:57:50 EST by CHANNING CHUNG M.D. Dictated By: CHANNING CHUNG Signed By:06/21/25 1258 06/21/25 1258 DD/ 0649 TD/TT: Disc Recordist: Authorizing ProviderResult TypeResult StatusCorey Angel DOCLINISYNC IMAGINGFinal Result * (ABNORMAL) ALL CBC WITH AUTO DIFF (06/16/2025 5:41 AM EST) Only the most recent of2 resultswithin the time period is included. ComponentValueRef RangeTest MethodAnalysis TimePerformed AtPathologist Signature TB[facility] WBC16.0(H)4.0 - 11.0 10 3/uLTBHTBH RBC3.78(L)4.20 - 5.40 10 6/uLTBHTBH HGB 9.9(L)12.0 - 16.0 g/dLTBHTBH HCT31.1(L)36.0 - 48.0 %TBHTBH MCV82.381.0 - 99.0 fL TBHTBH MCH26.2(L)26.7 - 34.0 pgTBHTBH MCHC31.829.9 - 35.2 g/dLTBHTBH RDW14.811.0 - 15.0 %TBHTBH VQO866308 - 450 10 3/uLTBHTBH MPV10.89.5 - 13.5 fLTBHNEUTROPHILS PERCENT AUTO79.6(H)43.0 - 75.0 %TBHLYMPHOCYTES PERCENT AUTO10.2(L)20.5 - 60.0 % TBHMONOCYTES PERCENT AUTO8.31.7 - 12.0 %TBHTBH EO %0.6(L)0.9 - 7.0 %TBHBASOPHILS PERCENT AUTO0.40.2 - 2.0 %TBHIMMATURE GRANULOCYTES PCT AUTO0.9(H)0.0 - 0.5 %TBH NEUTROPHILS ABSOLUTE AUTO12.7(H)1.4 - 6.5 10 3/uLTBHLYMPHOCYTES ABSOLUTE AUTO1.6 1.2 - 3.8 10 3/uLTBHMONOCYTES ABSOLUTE AUTO1.3(H)0.3 - 0.8 10 3/uLTBHTBH EO #0.1 0.0 - 0.7 10 3/uLTBHBASOPHILS ABSOLUTE AUTO0.10.0 - 0.1 10 3/uLTBHIMMATURE GRANULOCYTES ABS AUTO0.15(H)0.00 - 0.03 10 3/uLTBHSpecimen (Source)Anatomical Location / LateralityCollection Method / VolumeCollection TimeReceived Time 06/16/2025 5:41 AM EST06/16/2025 5:52 AM EST Narrative [facility] - 06/16/2025 5:59 AM EST Authorizing ProviderResult TypeResult StatusCorey Angel DOCLINISYNCFinal Result Performing OrganizationAddressCity/State/ZIP CodePhone Number [facility] * [facility] DRUG SCREEN RAPID (URINE) (06/15/2025 [...] Angel DOCLINISYNCFinal Result Performing OrganizationAddressCity/State/ZIP CodePhone Number [facility] * (ABNORMAL) [facility] CBC WITH PLATELET NO DIFFERENTIAL (06/15/2025 5:38 AM EST) ComponentValueRef RangeTest MethodAnalysis TimePerformed AtPathologist SignatureTBH WBC10.64.0 - 11.0 10 3/uLTBHTBH RBC4.12(L)4.20 - 5.40 10 6/uLTBH TBH HGB10.8(L)12.0 - 16.0 g/dLTBHTBH HCT33.7(L)36.0 - 48.0 %TBHTBH MCV81.881.0 - 99.0 fLTBHTBH MCH26.2(L)26.7 - 34.0 pgTBHTBH MCHC32.029.9 - 35.2 g/dLTBHTBH RDW14.611.0 - 15.0 %TBHTBH QQX524895 - 450 10 3/uLTBHTBH MPV10.69.5 - 13.5 fL TBHSpecimen (Source)Anatomical Location / LateralityCollection Method / Volume Collection TimeReceived Time06/15/2025 5:38 AM EST06/15/2025 5:59 AM EST Narrative [facility] - 06/15/2025 6:05 AM EST Authorizing ProviderResult TypeResult StatusCorey Angel DOCLINISYNCFinal Result Performing OrganizationAddressCity/State/ZIP CodePhone Number [facility] * US OB BPP W NON-STRESS (06/11/2025 6:18 PM EST) Only the most recent of5 resultswithin the time period is included. Anatomical RegionLateralityModalityOtherSpecimen (Source)Anatomical Location / LateralityCollection Method / VolumeCollection TimeReceived Time06/11/2025 6:18 PM EST Narrative 06/11/2025 6:21 PM EST [facility] ?[address] ? [place] [address] ? Ultrasound Report ? Signed ? Patient: CLAUDIA,NATHANIEL A ?MR#: [id number] ?? : 1995 ?Acct:[id number] ?? Age/Sex: 29 / F ?ADM Date: 06/11/25 ?? Loc: FBC ??250-1 ? Attending Dr: Lora Ortiz D.O. ? Ordering Physician: Lora Ortiz D.O. ?? Date of Service: 06/11/25 ?? Procedure(s): US OB BPP w non-stress ?? Accession Number(s): [id number] ? cc: Kelly Mckenzie [employer]; Lora Ortiz D.O. ? [facility] ? [address] ? [place] [address] ? Patient Name: ?? NATHANIEL TAYLOR ? MRN: [facility]:[id number] ? date: 1995 ?Sex: F ?? Assigned Patient Location: LAB ?? Current Patient Location: LAB ?? Accession/Order Number: [id number] ?? Exam Date: 06/11/2025 ??17:41 ?Report Date: [...] non-stress ?? IMPRESSION: ? Biophysical profile score: 01/30 ? Impression dictated by: Mateus Momin M.D. ??06/11/2025 6:18 PM ? Dictation Location: RADIO-PC-17 ? Electronically authenticated by: [id number] ??Y ?? Date: 06/11/2025 ??18:18 ? Dictated By: ?Mateus Momin M.D. ? Signed By: ?/18/25 1821 ? DD/ 1818 ? TD/TT: ? Disc Recordist: Procedure Note Radiology, Radiologist, MD - 06/11/2025 [place] [address] Ultrasound Report Signed Patient: NATHANIEL TAYLOR AMR#: [id number] : 1995Acct:[id number] Age/Sex: 29 / FADM Date: 06/11/25 Loc: [facility] [address]: Lora Ortiz D.O. Ordering Physician: Lora Ortiz D.O. Date of Service: 06/11/25 Procedure(s): US OB BPP w non-stress Accession Number(s): [id number] cc: Kelly Mckenzie [employer]; Lora Ortiz D.O. The [place] [id number] Patient Name: NATHANIEL TAYLOR MRN: TB:[id number] date: 1995 Sex: F Assigned Patient Location: LAB Current Patient Location: LAB Accession/Order Number: [id number] Exam Date: 06/11/2025 17:41 Report Date: 06/11/2025 [...] Momin M.D. 06/11/2025 6:18 PM Dictation Location: [place] [address] Electronically authenticated by: [id number] Y Date: 8:18 Dictated By: Mateus Momin M.D. Signed By:06/11/251820 DD/ 17 TD/TT: Disc Recordist: Authorizing ProviderResult TypeResult StatusCorey Angel DOCLINISYNC IMAGINGFinal [...] BLOOD ORDERABLES Final ResultPerforming OrganizationAddressCity/State/ZIP CodePhone Number [facility] * (ABNORMAL) [facility] UA (CLEAN/CATCH) BROADCAST TECHNICIAN/MICRO IF IND. (06/11/2025 4:00 PM EST) ComponentValueRef [...] Angel DOCLINISYNCFinal Result Performing OrganizationAddressCity/State/ZIP CodePhone Number [facility] * Urine culture (06/11/2025 4:00 PM EST)ComponentValueRef RangeTest Method Analysis TimePerformed AtPathologist SignatureFR NOTE?75,000 colonies/ml mixed ?bacterial skin contaminants ?2 Days 06/13/2025 9:59 AM [facility] CtrSpecimen (Source)Anatomical Location / LateralityCollection Method / VolumeCollection TimeReceived TimeUrine Urine specimen obtained by clean catch procedure / Ukmiuag5206/11/2025 4:00 PM EST 06/11/2025 9:02 PM ESTComment:Clean-Voided Midstream Narrative [facility] - 06/13/2025 9:59 AM EST Diagnosis: Leakage Comment: Authorizing ProviderResult TypeResult StatusCorey Angel DOL MICROBIOLOGY - GENERAL ORDERABLESFinal ResultPerforming OrganizationAddressCity/State/ZIP Code Phone Number [facility] [address] [place] [address], [facility] [address] [place] [address] * (ABNORMAL) POCT urinalysis dipstick manually resulted (06/10/2025 11:59 AM EST) Only the most recent of5 resultswithin [...] Location / LateralityCollection Method / VolumeCollection TimeReceived MeibEmaxm43/17/2025 11:59 AM EST Narrative Authorizing ProviderResult TypeResult StatusCorey Angel DOPOINT OF CARE TEST ENTER/EDIT ORDERABLESFinal Result * STREP GP B CULTURE+RFLX (06/10/2025 11:48 AM EST)ComponentValueRef RangeTest MethodAnalysis TimePerformed AtPathologist SignatureSTREP GP B CULTURE+RFLX ??Strep Gp B Culture+Rflx TBHSTREP GP B CULTURE+RFLXNegativeTBHSTREP GP B CULTURE+RFLXCenters for Disease Control and Prevention (CDC) andTBHSTREP GP B CULTURE+RFLXAmerenloe medical center Congress of Obstetricians and GynecologistsTBHSTREP GP B CULTURE+RFLX(ACOG) guidelines for prevention of group BTBHSTREP GP B CULTURE+RFLXstreptococcal (GBS) disease specify co-collection ofTBHSTREP GP B CULTURE+RFLXa vaginal and rectal swab specimen to maximizeTBHSTREP GP B CULTURE+RFLXsensitivity of GBS detection. Per the CDC and ACOG,TBHSTREP GP B CULTURE+RFLXswabbing both the lower vagina and rectumTBHSTREP GP B CULTURE+RFLXsubstantially increases the yield of detectionTBHSTREP GP B CULTURE+RFLXcompared with sampling the vagina alone.TBH STREP GP B CULTURE+RFLXPenicillin G, ampicillin, or cefazolin are indicatedTBH STREP GP B CULTURE+RFLXfor intrapartum prophylaxis of GBSTBHSTREP GP B CULTURE+RFLXcolonization. Reflex susceptibility testing should beTBHSTREP GP B CULTURE+RFLXperformed prior to use of clindamycin only on GBSTBHSTREP GP B CULTURE+RFLXisolates from penicillin-allergic women who areTBHSTREP GP B CULTURE+RFLXconsidered a high risk for anaphylaxis. Treatment withTBHSTREP GP B CULTURE+RFLXvancomycin without additional testing is warranted ifTBHSTREP GP B CULTURE+RFLXresistance to clindamycin is noted.TBHSTREP GP B CULTURE+RFLX Performed at: [facility] LabCaro CenterTBHSTREP GP B CULTURE+[id number] [place], [place] [id number] GP B CULTURE+RFLXLab Director: Marcos Troncoso PhD, Phone: [phone] (Source)Anatomical Location / Laterality Collection Method / VolumeCollection TimeReceived Time06/10/2025 11:48 AM EST 06/10/2025 9:18 PM EST Narrative [facility] - 06/16/2025 12:13 PM EST Authorizing ProviderResult TypeResult StatusCorey Angel DOLAB BLOOD ORDERABLES Final ResultPerforming OrganizationAddressCity/State/ZIP CodePhone Number [facility] * US OB follow up transabdominal approach [...] in the 93.3 percentile.. Procedure Note Asha Lizraraga DO - 06/11/2025 US OB FOLLOW UP [...] EDT Narrative 04/22/2025 6:13 PM EDT [facility] ?[address] ? [place] [address] ? Cardiology Report ? Signed ? Patient: NATHANIEL TAYLOR ?MR#: [id number] ?? : 1995 ?Acct:[id number] ?? Age/Sex: 29 / F ?ADM Date: 04/22/25 ?? Loc: CARD ? Attending Dr: Lora Ortiz D.O. ? Ordering Physician: Lora Ortiz D.O. ?? Date of Service: 04/22/25 ?? Procedure(s): CA echo doppler complete ?? Accession Number(s): [id number] ? cc: Kelly Mckenzie [employer]; Lora Ortiz D.O. ? Patient Name: ? NATHANIEL TAYLOR ? MR#: [id number] ? : 1995 ? Exam Date: 04/22/2025 [...] ? 2.50 cm2, 2.50 cm2 ?? Deceleration [place]: ? Pressure Half-Time: ? Peak Velocity(Antegrade Flow): [...] 1813 ? DD/ 1812 ? TD/TT: ? Disc Recordist: Procedure Note Radiology, Radiologist, MD - 04/22/2025 [place] [address] Cardiology Report Signed Patient: NATHANIEL TAYLOR AMR#: [id number] : 1995Acct:[id number] Age/Sex: Date: 04/22/25 Loc: CARD Attending Dr: Lora Ortiz D.O. Ordering Physician: Lora Ortiz D.O. Date of Service: 04/22/25 Procedure(s): CA echo doppler complete Accession Number(s): [id number] cc: Kelly Mckenzie [employer]; Lora Ortiz D.O. Patient Name: NATHANIEL TAYLOR MR#: [id number] : 1995 Exam Date: 04/22/2025 Ordering Doctor: [...] Area (VTI): 2.50 cm2, 2.50 cm2 Deceleration [place]: Pressure Half-Time: Peak Velocity(Antegrade Flow): 1.55 m/s [...] Lopez M.D. Signed By:04/22/251812 DD/ 11 TD/TT: Disc Recordist: Authorizing ProviderResult TypeResult StatusCorey Angel DOCLINISYNC IMAGINGFinal Result * GLUCOSE 1 HOUR (04/01/2025 9:19 AM EDT)ComponentValueRef RangeTest Method Analysis TimePerformed AtPathologist SignatureGLUCOSE 1 AKBX823<130 mg/dLTBH Specimen (Source)Anatomical Location / LateralityCollection Method / Volume Collection TimeReceived Time04/01/2025 9:19 AM EDT1 9:27 AM EDT Narrative [facility] - 04/01/2025 10:15 AM EDT Authorizing ProviderResult TypeResult StatusKrcindy Kirkland NPLAB BLOOD ORDERABLESFinal ResultPerforming OrganizationAddressCity/State/ZIP CodePhone Number [facility] from Last 3 Months Insurance Care Teams Team MemberRelationshipSpecialtyStart DateEnd Date Unallocated, [place] Provider, [address] [place], [place] [id number] PCP - GeneralFamily Gcuqgjxm38/14/24 Treasure [place] DO [address] [place] [address] Referring RuxhcgogvLivfpwokm05/14/24
--- OUTSIDE RECORDS SUMMARY | 2025-06-23 08:27 | XMS_ITS | Encounter Summary ---
Author Organization [facility] Address [address] [facility] [place] [address] Care Team Providers Care Machine Heel Seat Fitter Name Role Phone Unallocated, Nomneena Provider Primary Care Provi aristeo Treasure [place] DO Unavailable [phone] Encounter Details DateTypeDepartmentCare Team (Latest Contact Info)Matwdkwdour00/30/2025bstract [facility] [address] [place] [address] Junito Ortiz DO [address] [facility] [address] Iam Brown, [facility] Social History Tobacco UseTypesPacks/DayYears UsedDateSmoking Tobacco: NeverSmokeless Tobacco: NeverAlcohol UseStandard Drinks/WeekCommentsYes0 (1 standard drink = 0.6 oz pure alcohol)One drink per monthEstimated Date of DeliveryCommentsYes 6Based on last menstrual period of 09/28/2024Sex and Gender Information ValueDate RecordedSex Assigned at BirthNot on fileLegal PtsOhmuuq45/15/2023 8:11 PM EDTGender IdentityNot on fileSexual OrientationNot on filedocumented as of this encounter Plan of Treatment Not on file documented as of this encounter Visit Diagnoses Not on filedocumented in this encounter Care Teams Team MemberRelationshipSpecialtyStart DateEnd Date Unallocated, Noms Provider, [address] [place] [address] PCP - GeneralFamily Zcsxtlqp65/14/24 Treasure England DO [address] [place] [address] Referring AmhowlteaOxynztdyk18/14/24documented as of this encounter
--- OUTSIDE RECORDS SUMMARY | 2025-06-23 08:27 | XMS_ITS | Encounter Summary ---
Author Organization [facility] Address [address] [facility] [place] [address] Care Team Providers Care Pulp Mixer Name Role Phone Unallocated, Nomneena Provider Primary Care Provi aristeo Treasure England DO Unavailable [phone] Encounter Details DateTypeDepartmentCare Team (Latest Contact Info)Xebabajaslu80/17/2025Bamboo flowsheet NATALIE [facility] [address] [place] [address] Junito Ortiz DO [address] Iam [place], [facility] Social History Tobacco UseTypesPacks/DayYears UsedDateSmoking Tobacco: NeverSmokeless Tobacco: NeverAlcohol UseStandard Drinks/WeekCommentsYes0 (1 standard drink = 0.6 oz pure alcohol)One drink per monthEstimated Date of DeliveryCommentsYes 6Based on last menstrual period of 09/28/2024Sex and Gender Information ValueDate RecordedSex Assigned at BirthNot on fileLegal GrwBoyuci45/15/2023 8:11 PM EDTGender IdentityNot on fileSexual OrientationNot on filedocumented as of this encounter Plan of Treatment Not on file documented as of this encounter Visit Diagnoses Not on filedocumented in this encounter Care Teams Team MemberRelationshipSpecialtyStart DateEnd Date Unallocated, Noms Provider, [address] [place] [address] PCP - GeneralFamily Duhzfgoi31/14/24 Treasure England DO [address] [place] [address] Referring LvnizhqsiJhmcyeiju25/14/24documented as of this encounter
--- OUTSIDE RECORDS SUMMARY | 2025-06-23 08:27 | XMS_ITS | Encounter Summary ---
Author Organization [facility] Address [address] [facility] [place] [address] Care Team Providers Care Oven Unloader Name Role Phone Unallocated, Noms Provider MD Primary Care Provi aristeo TomásTreasure leach DO Unavailable [phone] Encounter Details DateTypeDepartmentCare Team (Latest Contact Info)Pdyltnisluy08/23/2025Clinisync Result Encounter [facility] Unsolicited Junito Ortiz, DO [address] [place] [address] Social History Tobacco UseTypesPacks/DayYears UsedDateSmoking Tobacco: NeverSmokeless Tobacco: NeverAlcohol UseStandard Drinks/WeekCommentsYes0 (1 standard drink = 0.6 oz pure alcohol)One drink per monthEstimated Date of DeliveryCommentsYes 6Based on last menstrual period of 09/28/2024Sex and Gender Information ValueDate RecordedSex Assigned at BirthNot on fileLegal BnlIhrhzu47/15/2023 8:11 PM EDTGender IdentityNot on fileSexual OrientationNot on filedocumented as of this encounter Plan of Treatment Not on file documented as of this encounter Procedures Procedure NamePriorityDate/TimeAssociated DiagnosisCommentsALL CBC WITH AUTO SRSCShrbrii79/23/2025 5:41 AM EST documented in this encounter Results * (ABNORMAL) ALL CBC WITH AUTO DIFF (06/16/2025 5:41 AM EST)ComponentValueRef RangeTest MethodAnalysis TimePerformed AtPathologist SignatureTBH WBC16.0(H) 4.0 - 11.0 10 3/uLTBHTBH RBC3.78(L)4.20 - 5.40 10 6/uLTBHTBH HGB9.9(L)12.0 - 16.0 g/dLTBHTBH HCT31.1(L)36.0 - 48.0 %TBHTBH MCV82.381.0 - 99.0 fLTBHTBH MCH 26.2(L)26.7 - 34.0 pgTBHTBH MCHC31.829.9 - 35.2 g/dLTBHTBH RDW14.811.0 - 15.0 %TBHTBH [id number] - 450 10 3/uLTBHTBH MPV10.89.5 - 13.5 fLTBHNEUTROPHILS PERCENT AUTO79.6(H)43.0 - 75.0 %TBHLYMPHOCYTES PERCENT AUTO10.2(L)20.5 - 60.0 %TBHMONOCYTES PERCENT AUTO8.31.7 - 12.0 %TBHTBH EO %0.6(L)0.9 - 7.0 %TBH BASOPHILS PERCENT AUTO0.40.2 - 2.0 %TBHIMMATURE GRANULOCYTES PCT AUTO0.9(H)0.0 - 0.5 %TBHNEUTROPHILS ABSOLUTE AUTO12.7(H)1.4 - 6.5 10 3/uLTBHLYMPHOCYTES ABSOLUTE AUTO1.61.2 - 3.8 10 3/uLTBHMONOCYTES ABSOLUTE AUTO1.3(H)0.3 - 0.8 10 3/uLTBHTBH EO #0.10.0 - 0.7 10 3/uLTBHBASOPHILS ABSOLUTE AUTO0.10.0 - 0.1 10 3/uLTBHIMMATURE GRANULOCYTES ABS AUTO0.15(H)0.00 - 0.03 10 3/uLTBHSpecimen (Source)Anatomical Location / LateralityCollection Method / VolumeCollection TimeReceived Time06/16/2025 5:41 AM EST06/16/2025 5:52 AM EST Narrative CLIN[facility] - 06/16/2025 5:59 AM EST Authorizing ProviderResult TypeResult StatusCorey Angel DOCLINISYNCFinal Result Performing OrganizationAddressCity/State/ZIP CodePhone Number CLINIS[facility]NC [facility] documented in this encounter Visit Diagnoses Not on filedocumented in this encounter Care Teams Team MemberRelationshipSpecialtyStart DateEnd Date Unallocated, Noms Provider, [address] [place] [address] PCP - GeneralFamily Cjowwaps44/14/24 Treasure England DO [address] [place] [address] Referring CcqkdluwnAtcweecos04/14/24documented as of this encounter
--- OUTSIDE RECORDS SUMMARY | 2025-06-23 08:27 | XMS_ITS | Encounter Summary ---
Author Organization [facility] Address [address] [facility] [place] [address] Care Team Providers Care Enrollment Manager Name Role Phone Unallocated, Noms Provider MD Primary Care Provi aristeo Treasure Englnad DO Unavailable [phone] Encounter Details DateTypeDepartmentCare Team (Latest Contact Info)Sgaqntlxfjm71/17/2025linisync Result Encounter [facility] Department Unsolicited Junito Ortiz, DO [address] [place] [address] Social History Tobacco UseTypesPacks/DayYears UsedDateSmoking Tobacco: NeverSmokeless Tobacco: NeverAlcohol UseStandard Drinks/WeekCommentsYes0 (1 standard drink = 0.6 oz pure alcohol)One drink per monthEstimated Date of DeliveryCommentsYes 6Based on last menstrual period of 09/28/2024Sex and Gender Information ValueDate RecordedSex Assigned at BirthNot on fileLegal NwgVfgqyk63/15/2023 8:11 PM EDTGender IdentityNot on fileSexual OrientationNot on filedocumented as of this encounter Plan of Treatment Not on file documented as of this encounter Procedures Procedure NamePriorityDate/TimeAssociated DiagnosisCommentsSTREP GP B CULTURE+HMKQJufdcll30/17/2025 11:48 AM EST documented in this encounter Results * STREP GP B CULTURE+RFLX (06/10/2025 11:48 AM EST)ComponentValueRef RangeTest MethodAnalysis TimePerformed AtPathologist SignatureSTREP GP B CULTURE+RFLX ??Strep Gp B Culture+Rflx TBHSTREP GP B CULTURE+RFLXNegativeTBHSTREP GP B CULTURE+RFLXCenters for Disease Control and Prevention (CDC) andTBHSTREP GP B CULTURE+RFLXAmerican Congress of Obstetricians and GynecologistsTBHSTREP GP B [...] is noted.TBHSTREP GP B CULTURE+RFLX Performed at: [facility] HospitalTBHSTREP GP B CULTURE+[id number] [place], [place] [id number] GP B CULTURE+RFLXLab Director: Marcos Troncoso PhD, Phone: [phone] (Source)Anatomical Location / Laterality Collection Method / VolumeCollection TimeReceived Time06/10/2025 11:48 AM EST 06/10/2025 9:18 PM EST Narrative [facility]IN[facility] - 06/16/2025 12:13 PM EST Authorizing ProviderResult TypeResult StatusCorey Angel DOLAB BLOOD ORDERABLES Final ResultPerforming OrganizationAddressCity/State/ZIP CodePhone Number CLINSUZANNE [facility] documented in this encounter Visit Diagnoses Not on filedocumented in this encounter Care Teams Team MemberRelationshipSpecialtyStart DateEnd Date Unallocated, Noms Provider, [address] [place] [address] PCP - GeneralFamily Iiojgncx19/14/24 Treasure England DO [address] [place] [address] Referring RitsajzqjPbqegkdnz34/14/24documented as of this encounter
--- OUTSIDE RECORDS SUMMARY | 2025-06-23 08:28 | XMS_ITS | CCD ---
Author Organization [facility] Care Team Providers Care Group Home Supervisor Name Role Phone NICK, DR NIELSEN Admitting Unavailable NICK, DR NIELSEN Attending Unavailable SMITH ., VI Primary Care Unavailable NICK, DR NIELSEN Consulting Unavailable ANGEL ., DR PAULINO Consulting Unavailable ANGEL ., DR PAULINO Admitting Unavailable ANGEL ., DR PAULINO Attending Unavailable SMITH ., VI Primary Care Unavailable [place], DR NIELSEN V Consulting Unavailable ANGEL ., [...] Primary Care Provider Junito Ortiz Attending Provider Magaly COMPUTER TECHNOLOGY TEACHERNelida HANSEN Primary Care Provider Unallocated , Meryls Provider Primary Care Provi aristeo Treasure England DO Unavailable Treasure England DO Unavailable JUNITO ORTIZ Attending Unavailable ANGEL, JUNITO Attending Unavailable INNA KIRKLAND Attending Unavailable AGNEL, JUNITO Referring Unavailable ANGEL, JUNITO Attending Unavailable ANGEL, JUNITO Attending Unavailable ANGEL, JUNITO Referring Unavailable ANGEL, JUNITO Attending Unavailable Inna Kirkland Attending Unavailable Inna Kirkland Admitting Unavailable Nelida Ding Primary Care Unavailable Allergies Allergy ClassificationReported Allergen(s)Allergy TypeDate of OnsetReaction(s) Facility (9 sources)House dust miteDrug allergyAppbymePhelps [facility] [employer] Other (20 sources)PollenDrug -88-3630EeigqjzRyfzd [place] [employer] Other (5 sources)house dust allergenic extract; Translations: [house dust]Drug Allergy 23-15-1960Agmzsqk ReactionSal[facility] (5 sources)Pollen; Translations: [pollen extracts]Allergy to phzkaadnd18-83-1941 Unknown ReactionSal[facility] Medications Current Medications MedicationDrug Class(es)DatesSig (Normalized)Sig (Original)acetaminophen 300 mg / codeine phosphate 30 mg oral tablet (4 sources)Opioid AgonistStart: 01-14-2025 End: 68-72-6536nayu 1 tablet by mouth every six hours [...] Activedexamethasone 1 mg oral tablet (2 sources)CorticosteroidStart: 28-81-1559Okbtmrqujfhoj 1 MG 1 tablet Orally 11pm for 1 days Jan, ActiveDoxylamine Succinate, Sleep, (UNISOM PO) (19 sources)Doxylamine Succinate, Sleep, (UNISOM PO) Take by mouth Active fexofenadine (10 sources)Histamine-1 Receptor AntagonistStart: 11-16-4478dynoidbqmaee ([facility]) Active PO December 25, 2023 12:00amStart: 09-19-2023 End: 44-22-4521uhyhxktrxvcc ([facility]) Discontinued PO Daily September 19, 2023 12:00am November 28, 2023 8:59amStart: 56-97-1949lpdowndwluar ([facility]) Active PO Daily September 19, 2023 12:00amStart: 09-12-2023 End: 21-22-4948pdaqyjasqkxj (Blanche Allergy) 180 MG tablet 09/12/2023 12/17/2024 DiscontinuedMagnesium (20 sources)Start: 44-64-2623vjcafbhsl Active PO December 25, 2023 12:00amStart: 09-03-2023 End: 12-22-7629jhoozkcmo Discontinued PO September 03, 2023 12:00am November 28, 2023 8:59amStart: 61-62-6332yhmsfcqkf Active PO September 03, 2023 12:00amStart: 09-24-9870ovjbfqhev 100 MG tablet 08/17/2022 ActiveMagnesium OTC, daily Active metoclopramide 10 mg oral tablet (20 sources)Dopamine-2 Receptor AntagonistStart: 28-55-3921vbgf 1 tablet by mouth in the morning as needed for nauseametoclopramide (Reglan) 10 MG tablet Indications: Nausea and vomiting in ([facility]) TAKE 1TABLET BY MOUTH IN MORNING,AT NOON,IN EVENING 30 MINUTES PRIOR TO MEALS NEEDED FOR NAUSEA 90 tablet 1 03/23/2025 ActiveStart: 01-26-2025 End: 76-71-8754stjtngwixaleng (Reglan) 10 MG tablet Indications: Nausea and vomiting in ([facility]) Take 1tablet (10 mg) by mouth in the morning and 1 tablet (10 mg) at noon and 1 tablet (10 mg) in the evening. Take before meals. Take 1 tablet by mouth 30 minutes prior to meals 3 times daily as needed for nausea. 90 tablet 1 01/26/2025 ActiveStart: 01-14-2025 End: 97-47-0092seyi 1 tablet by mouth three times daily as neededmetoclopramide (Reglan) 10 MG tablet Indications: Nausea and vomiting in ([facility]) Take 1tablet (10 mg) by mouth 3 (three) times a day as needed (as needed prior to meals) for up to 10 days 1 tablet 01/14/2025 01/24/2025 ActiveStart: 12-16-2024 End: 07-89-5033zrun 1 tablet by mouth before mealtime as needed for nausea metoclopramide (Reglan) 10 MG tablet Indications: Nausea and vomiting in ([facility]) TAKE 1TABLET BY MOUTH IN THE MORNING, NOON, EVENING, 30 MINUTES BEFORE MEALS NEEDED FOR NAUSEA 90 tablet 3 12/16/2024 12/17/2024 Discontinued (Ineffective)Start: 11-14-2024 End: 58-14-5834eekrsidqedkdyf (Reglan) 10 MG tablet Indications: Nausea and vomiting in ([facility]) Take 1tablet (10 mg) by mouth in the morning and 1 tablet (10 mg) at noon and 1 tablet (10 mg) in the evening. Take before meals. Take 1 tablet by mouth 30 minutes prior to meals 3 times daily as needed for nausea. 90 tablet 11/14/2024 12/14/2024 Activeomeprazole 20 mg delayed release oral capsule (20 sources)Proton Pump InhibitorStart: 01-26-2025 End: 29-57-2279tyte 2 capsules by mouth before mealtimeomeprazole (PriLOSEC) [address] capsule Indications: Gastroesophageal Reflux Disease , Heartburn Take 2 capsules (40 mg) by mouth in the morning. Take before meals. Do not crush or chew. 180 capsule 05/19/2025 ActiveStart: 09-03-2023 End: 89-29-7393coya 40 mg by mouth once dailyOmeprazole Discontinued 40 MG PO Daily 90 90 September 03, 2023 2:16pm November 28, 2023 8:59amStart: 57-47-2985ktuv 2 capsules by mouth in the morningomeprazole (PriLOSEC) 20 mg capsule Take 2 capsules (40 mg total) by mouth in the morning. 02/21/2023 ActiveStart: 64-06-8264tfwi 1 capsule by mouth once dailyOmeprazole 40 MG 1 capsule 30 minutes before morning meal Orally Once a day for 90 days Jan, Active Start: 43-76-9183wvud 1 capsule by mouth in the morningomeprazole (PriLOSEC) 20 mg capsule Take 1 capsule (20 mg total) by mouth in the morning. 0 02/21/2023 Activeondansetron 4 mg oral tablet (20 sources)Serotonin-3 Receptor AntagonistStart: 11-05-2024 End: 18-94-0548hfmh 1 tablet by mouth every six hours as needed for nausea and nausea, then take 1 tablet by mouthevery six hours as needed for nausea and nauseaondansetron (Zofran) 4 MG tablet Indications: Nausea and vomiting in ([facility]) Take 1 tablet (4 mg) by mouth every 6 (six) hours if needed for nausea or vomiting for up to 30 doses Take 1 tablet by mouth every 6 hours as needed for nausea. 30 tablet 3 01/14/2025 ActiveStart: 09-03-2023 End: 44-95-5996reze 4 mg by mouth once dailyOndansetron Hcl Active 4 MG PO Daily December 25, 2023 12:36pmStart: 93-12-9604zcnz 1 tablet by mouth every twenty-four hoursOndansetron HCl 4 MG 1 tablet Orally Once a day for 14 days Jun, Active End: 35-82-2666mcrv 1 tablet by mouth every eight hours [...] tablet (19 sources)Proton Pump InhibitorStart: 12-17-2024 End: 43-76-3910heno 1 tablet by mouth before mealtimepantoprazole (Protonix) [...] hydrochloride 12.5 mg oral tablet (12 sources)PhenothiazineStart: 68-01-1468iixx 1 tablet by mouth every eight hours as needed for nausea and nausea, then take 1 tablet by mouth every six hours as needed for nausea and nauseapromethazine (Phenergan) 12.5 MG tablet Indications: Nausea and vomiting in ([facility]) Take 1 tablet (12.5 mg) by mouth [...] PERSISTSMAX 2/24HR 12 tablet 2 07/04/2024 ActiveStart: 41-26-4770acvcmazfeiu (MAXALT) 10 mg tablet Indications: Migraine without aura and without status migrainosus, not intractable Take 1 tablet just after onset of migraine. May repeat the dose after 2 hours if migraine persists. Max of 2 doses per 24 hours. 12 tablet 2 09/05/2023 ActiveStart: 05-23-2023 End: 01-18-3807lsvf 5 mg by mouth once dailyRizatriptan Discontinued 5 MG PO Daily September 03, 2023 12:00am November 28, 2023 8:59amverapamil hydrochloride 120 mg extended release oral tablet (2 sources)Calcium Channel BlockerStart: 74-84-4436jimd 1 tablet by mouth once dailyverapamil SR (CALAN-SR) 120 mg CR tablet Indications: Migraine without aura and without status migrainosus, not intractable Take 1 tablet (120 mg total) by mouth nightly. 30 tablet 5 09/05/2023 Activezolpidem tartrate 10 mg oral tablet (16 sources)gamma-Aminobutyric Acid-ergic AgonistStart: 01-14-2025 End: 44-52-4906Qjawwk 10 MG tablet Indications: related fatigue in second trimester ([facility]) , Insomnia, unspecified type Take 1 tablet (10 mg) by mouth as needed at bedtime for sleep for up to 5 days 5 tablet 01/14/2025 Active Completed/Discontinued Medications MedicationDrug Class(es)DatesSig (Normalized)Sig (Original)Atogepant (4 sources)Start: 09-03-2023 End: 19-96-8070omyt 60 mg by mouth once dailyAtogepant Discontinued 60 MG PO Daily September 03, 2023 12:00am September 19, 2023 11:04amatogepant (QULIPTA) 60 mg tablet (2 sources)Start: 05-23-2023 End: 94-67-5187utst 1 tablet by mouth in the morningatogepant (QULIPTA) 60 mg tablet Indications: Migraine without aura and without status migrainosus,not intractable Take 60 mg by mouth in the morning. 30 tablet 5 05/23/2023 09/05/2023 DiscontinuedStart: 22-73-3085lxiq 1 tablet by mouth in the morning atogepant (QULIPTA) 60 mg tablet Indications: Migraine without aura and without status migrainosus,not intractable Take 60 mg by mouth in the morning. 30 tablet 5 05/23/2023 Efoytt44 hr buPROPion hydrochloride 150 mg extended release oral tablet (20 sources)AminoketoneStart: 09-19-2023 End: 76-93-7143ycqm 150 mg by mouth once dailyBupropion Hcl Discontinued 150 MG PO Daily 90 September 19, 2023 11:41am November 28, 2023 8:59amStart: 09-03-2023 End: 10-98-3929rvgu 1 tablet by mouth once dailyBupropion Hcl [...] oral tablet (5 sources)Histamine-2 Receptor Antagonist End: 70-51-2028xfnmayprzv (Pepcid) 10 MG tablet Take by mouth 01/14/2025 Discontinuedmagnesium oxide 250 mg oral tablet (2 sources) End: 74-06-0645axil 1 tablet by mouth in the morningmagnesium oxide 250 mg tablet Take 1 tablet (250 mg total) by mouth in the morning. 0 09/05/2023 Dis continuedPNV no.95/ferrous fum/folic ac ( ORAL) (2 sources) End: 29-01-8894wqgn 1 tablet by mouth once daily before mealtimePNV no.95/ferrous fum/folic ac ( ORAL) Take 1 tablet by mouth daily. 0 09/05/2023 Discontinuedtake 1 tablet by mouth once daily before mealtimePNV no.95/ferrous fum/folic ac ( ORAL) Take 1 tablet by mouth daily. 0 Activepolysaccharide iron complex 391 mg oral capsule (7 sources)Start: 04-01-2025 End: 82-05-9897dmji 1 capsule by mouth once dailyiron polysaccharides (ProFe) 391.3 (180 Fe) MG capsule Indications: Low iron Take 1 capsule (391.3 mg) by mouth Daily 30 capsule 6 04/01/2025 05/01/2025 Expiredpropranolol hydrochloride 20 mg oral tablet (4 sources)beta-Adrenergic BlockerStart: 05-23-2023 End: 57-30-0605rspfxibhxvR (INDERAL) 20 mg tablet Indications: Migraine without aura and without status migrainosus, not intractable Take 1 tablet (20 mg) twice daily for 3 days, then reduce to 1 tablet daily for 3days, then discontinue 9 tablet 0 05/23/2023 09/05/2023 Discontinuedtake 1 tablet by mouth at bedtime Propranolol HCl 60 MG 1 tablet Orally HS for migraines Activevitamin B12 (5 sources)Vitamin J22Yudwyrk B12 Not-Taking Problems Active Problems Problem ClassificationProblemDateDocumented DateEpisodic/ChronicAnxiety disorders (17 sources)Anxiety; Translations: [Anxiety disorder, unspecified]ChronicComa; stupor; and brain damage (2 sources)Somnolence; Translations: [Daytime somnolence]Onset: 09-05-2023 60-60-9117AaxeeobyWhsgijjwyd associated with dizziness or vertigo (12 sources)Dizziness; Translations: [Dizziness and giddiness]EpisodicEsophageal disorders (9 sources)Gastroesophageal reflux disease; Translations: [Gastro-esophageal reflux disease without esophagitis]74-75-6489ZbzxsvnUghgsamv; including migraine (20 sources)Migraine; Translations: [Migraine, unspecified, not intractable, without status migrainosus]Onset: 80-42-7779PasnffxKzkxj valve disorders (6 sources)Tachycardia; Translations: [Unspecified abnormalities of heart beat] 67-68-3350QtxsnhxyWwgclzpzyobgm and screening for infectious disease (3 sources)Encounter for screening for human papillomavirus (HPV); Translations: [Exposure to sexually transmissible disorder]Onset: 555238-86-0393Zqnlskmc Malaise and fatigue (1 source)Other fatigue; Translations: [OTHER FATIGUE]Onset: 11-09-9683Zckohepw Menstrual disorders (5 sources)Irregular menstruation, unspecified; Translations: [Missed period] Onset: 87-20-8477RoplipiRhje disorders (13 sources)Depressive disorder; Translations: [Major depressive disorder, single episode, unspecified]38-87-2578WhjrconAzials and vomiting (18 sources)Nausea; Translations: [Nausea]Onset: 23-36-3896CtmhpewrKhksw bone disease and musculoskeletal deformities (1 source)Segmental and somatic dysfunction of pelvic region; Translations: [Segmental and somatic dysfunction of pelvic region]Onset: 08-41-9858Rriaxwau Other complications of (6 sources)Vomiting of , unspecified; Translations: [Unspecified vomiting of , unspecified as to episode of care or not applicable] 77-07-5370EvbbcnnsKhxgu complications of (2 sources)High risk ; Translations: [Supervision of with other poor reproductive or obstetric history, unspecified trimester]12-17-2024 EpisodicOther complications of (2 sources)Fatigue during ; Translations: [ related exhaustion and fatigue, second trimester]78-33-7753VxghllblBjzwm complications of (2 sources) size does not accord with dates; Translations: [Uterine size- date discrepancy, unspecified trimester]85-32-6750KyoqjxleEtlwh endocrine disorders (5 sources)Other adrenocortical overactivity; Translations: [OTHER ADRENOCORTICAL OVERACTIVITY]Onset: 92-32-2863VxagbehFgxle endocrine disorders (9 sources)Dehydroepiandrosterone sulfate level; Translations: [Other specified disorders of adrenal gland]ChronicOther endocrine disorders (9 sources)Increased cortisol level; Translations: [Other adrenocortical overactivity]ChronicOther endocrine disorders (2 sources)Other specified disorders of adrenal glandChronicOther female genital disorders (2 sources)Vaginal discharge; Translations: [Other specified noninflammatory disorders of vagina]96-53-0868GawzuxdpDnhdf and delivery including normal (20 sources); Translations: [Encounter for supervision of normal , unspecified, unspecified trimester]Onset: EpisodicOther screening for suspected conditions (not mental disorders or infectious disease) (20 sources)Encounter for screening for malignant neoplasm of cervix; Translations: [Other specified abnormal findings of blood chemistry]Onset: 54-11-7043VibjgrolKlccp upper respiratory disease (13 sources)Seasonal allergy; Translations: [Other seasonal allergic rhinitis] 14-18-7630IzkjivkCfdvg upper respiratory infections (1 source)Acute upper respiratory infection, unspecifiedEpisodicResidual codes; unclassified (2 sources)Gestation period, 11 weeks; Translations: [11 weeks gestation of ]05-54-8646JkojpputLkrvjcgk codes; unclassified (2 sources)Gestation period, 15 weeks; Translations: [15 weeks gestation of ]66-14-3007MunmgtpcQyfdcsjf codes; unclassified (2 sources)Insomnia; Translations: [Insomnia, unspecified]64-77-5669Udenkags Residual codes; unclassified (2 sources)Gestation period, 20 weeks; Translations: [20 weeks gestation of ]61-58-5636BcurxuqpUyktwsyl codes; unclassified (2 sources)Gestation period, 24 weeks; Translations: [24 weeks gestation of ]63-83-5030JvkkfczeZaovpelh codes; unclassified (2 sources)Gestation period, 28 weeks; Translations: [28 weeks gestation of ]97-99-6088AdxmngvvPlrodxwa codes; unclassified (2 sources)Gestation period, 30 weeks; Translations: [30 weeks gestation of ]09-76-8913Phaxnpas Past or Other Problems Problem ClassificationProblemDateDocumented DateEpisodic/ChronicAbdominal pain (4 sources)Unspecified abdominal pain; Translations: [UNSPECIFIED ABDOMINAL PAIN]Onset: 19-90-5819FtflalacJnpxefykhsvz injury (5 sources)Personal history of traumatic brain injury; Translations: [History of concussion injury of brain]Onset: 301216-74-1762YgnsjbmhOjmv disorders (3 sources)Mood disordersOnset: Other complications of ; puerperium affecting management of mother (3 sources)Central nervous system malformation in fetus affecting obstetrical care; Translations: [Choroid plexus cyst of fetus affecting care of mother, antepartum]Onset: 848950-87-3875BgaorybhSinuz endocrine disorders (1 source)Endocrine disorder, unspecified; Translations: [ENDOCRINE DISORDER UNSPECIFIED]Onset: 61-96-8422PjarbxzlAtzft endocrine disorders (1 source)Other specified endocrine disorders; Translations: [Other specified endocrine disorders]Onset: 41-94-2163PrmxrmdnTtzzj endocrine disorders (4 sources)Cyst of pineal gland; Translations: [Other specified endocrine disorders]Onset: 911634-15-3285IzqfaypxLzcro gastrointestinal disorders (1 source)Abdominal distension (gaseous); Translations: [ABDOMINAL DISTENSION GASEOUS]Onset: 59-28-6300LcilwqznHrmvajw cyst (1 source)Other ovarian cyst, right side; Translations: [OTHER OVARIAN CYST RIGHT SIDE]Onset: 88-10-4129Fqbqplqz Results Test NameValueInterpretationReference RangeFacilityUS OB FOLLOW UP TRANSABDOMINAL APPROACHon 06-94-9582JQ OB FOLLOW UP TRANSABDOMINAL APPROACH FINDINGS: A [...] Delivery: 07/05/25 Gestational Age as of 04/15/2025: 17e7qRqanypgkxe macro (dipstick) panel (U)on 68-19-1759Ywardosfc, UANegativeNegative - 4(70) +++ mg/dLNOMS HealthcareBlood, UANegativeNegative - 50 Cj/mcLNOMS HealthcareClarity, UAClearNOMS Healthcare Color, UAYellowNOMS HealthcareGlucose, UANegativeNegative - 2000(110) ++++ mg/dL N[facility]S HealthcareInterpretation and review of laboratory resultsAbnormalNOMS HealthcareKetones, UANegativeNegative - 160(16) ++++ mg/dLNOMS Healthcare Leukocytes, UATraceNegative - 500+++ Cosmo/mcLNOMS HealthcareNitrite, UANegative Negative - PositiveNOMS HealthcarepH, UA7.05 - 9NOMS HealthcareProtein, UA NegativeNegative - 2000(20) ++++ mg/dLNOMT HealthcareSpec Grav, UA1.0101 - 1.03 NOMS HealthcareUrobilinogen, UA1.00.2 - 12 mg/dLNOMT HealthcareNOMT HealthcareCA ECHO DOPPLER COMPLETEon [phone] [address] Cardiology Report Signed Patient: NATHANIEL BOB MR#: [id number] : 1995 Acct:[id number] Age/Sex: 29 / F ADM Date: 04/22/25 Loc: CARD Attending Dr: Junito Ortiz D.O. Ordering Physician: Junito Ortiz D.O. Date of Service: 04/22/25 Procedure(s): CA echo doppler complete Accession Number(s): [id number] cc: Nelida Ding [employer]IZER; Junito Ortiz D.O. Patient Name: NATHANIEL BOB MR#: [id number] : 1995 Exam Date: 04/22/2025 Ordering Doctor: [...] Area (VTI): 2.50 cm2, 2.50 cm2 Deceleration Quay: Pressure Half-Time: Peak Velocity(Antegrade Flow): 1.55 m/s [...] content not included)...TBHRadiology, Radiologist, - 04/22/2025 [place] [address] Cardiology Report Signed Patient: NATHANIEL BOB MR#: [id number] : 1995 Acct:[id number] Age/Sex: 29 / F ADM Date: 04/22/25 Loc: CARD Attending Dr: Junito Ortiz D.O. Ordering Physician: Junito Ortiz D.O. Date of Service: 04/22/25 Procedure(s): CA echo doppler complete Accession Number(s): [id number] cc: Nelida Ding [employer]ER; Junito Ortiz D.O. Patient Name: NATHANIEL BOB MR#: [id number] : 1995 Exam Date: 04/22/2025 Ordering Doctor: [...] Area (VTI): 2.50 cm2, 2.50 cm2 Deceleration Quay: Pressure Half-Time: Peak Velocity(Antegrade Flow): 1.55 m/s [...] M.D. Signed By: 04/22/251812 DD/ 11 TD/TT: Fluid Dynamicist: [facility] HOSPITALDominguez HealthcareRadiology Study observation (narrative)[facility] HospitalCA ECHO DOPPLER COMPLETEOrdered By: Radiologist Radiology on 78-73-5677KE[employer] Work Phone: ecg 12-LEADon [phone] [place] [address] Electrocardiograph Report Signed Patient: NATHANIEL BOB MR#: [id number] : 1995 Acct:[id number] Age/Sex: 29 / F ADM Date: 04/22/25 Loc: CARD Attending Dr: Junito Ortiz D.O. Ordering Physician: Junito Ortiz D.O. Date of Service: 04/22/25 Procedure(s): ECG 12 lead Accession Number(s): [id number] cc: [facility] Test Date: 2025-04-22 Pat Name: NATHANIEL BOB Department: Room: - Gender: Female Small Business Director: : 1995 Requested By: JUNITO ORTIZ Order Number: [id number] Reading MD: SLY SAAB Measurements Intervals [place] Rate: 84 P: 22 [place]: 139 QRS: 88 QRSD: 94 T: 54 QT: 361 QTc: 429 Interpretive Statements SINUS RHYTHM No previous ECG available for comparison Electronically Signed On 04-22-2025 18:39:57 EDT by SLY SAAB Dictated By: Sly Saab M.D. Signed By: 04/22/25183804/22/251838 DD/ 7 TD/TT: Fluid Dynamicist:CHADWICKadiolSarahi acosta MD - 04/22/2025 The [place] [id number] Electrocardiograph Report Signed Patient: NATHANIEL BOB MR#: [id number] : 1995 Acct:[id number] Age/Sex: 29 / F ADM Date: 04/22/25 Loc: CARD Attending Dr: Junito Ortiz D.O. Ordering Physician: uJnito Ortiz D.O. Date of Service: 04/22/25 Procedure(s): ECG 12 lead Accession Number(s): [id number] cc: [facility] Test Date: 2025-04-22 Pat Name: NATHANIEL BOB Department: Room: - Gender: Female Small Business Director: : 1995 Requested By: JUNITO ORTIZ Order Number: [id number] Reading MD: SLY SAAB Measurements Intervals [place] Rate: 84 P: 22 [place]: 139 QRS: 88 QRSD: 94 T: 54 QT: 361 QTc: 429 Interpretive Statements SINUS RHYTHM No previous ECG available for comparison Electronically Signed On 04-22-2025 18:39:57 EDT by SLY SAAB Dictated By: Sly Saab M.D. Signed By: 04/22/25183804/22/251838 DD/ 7 TD/TT: Fluid Dynamicist: NATALIE BarriosRadiology Study observation (narrative)[facility] HealthcareECG 12-LEAD Ordered By: Radiologist Radiology on 95-21-2042RE[facility] Work Phone: Urinalysis macro (dipstick) panel (U)on 04-15-2025 Bilirubin, UANegativeNegative - 4(70) +++ mg/dLNOMS HealthcareBlood, UANegative Negative - 50 Cj/mcLNOMS HealthcareClarity, UAClearNOMS HealthcareColor, UA YellowNOMS HealthcareGlucose, UANegativeNegative - 2000(110) ++++ mg/dLNOMS HealthcareInterpretation and review of laboratory resultsAbnormalNOMS Healthcare Ketones, UANegativeNegative - 160(16) ++++ mg/dLNOMS HealthcareLeukocytes, UA TraceNegative - 500+++ Cosmo/mcLNOMT HealthcareNitrite, UANegativeNegative - PositiveNOMS HealthcarepH, UA6.05 - 9NOMS HealthcareProtein, UATraceNegative - 2000(20) ++++ mg/dLNOMT HealthcareSpec Grav, UA1.0201 - 1.03N[facility] Urobilinogen, UA2.00.2 - 12 mg/dLNOMS HealthcareNOMS HealthcareGLUCOSE 1 HOURon 70-92-6105Ovracrr [Mass/Vol]114 mg/dLNINF - 130 mg/dLNOMT HealthcareCLINISYNC NOMS HealthcareUS OB LIMITED 1+ FETUSESon 12-61-4009MR OB LIMITED 1+ FETUSES FINDINGS: Breech presentation. [...] Delivery: 07/05/25 Gestational Age as of 02/25/2025: 83g8lMkitthhtrd macro (dipstick) panel (U)on 48-89-9688Tuxvhlesu, UANegativeNegative - 4(70) +++ mg/dLNOMS HealthcareBlood, UANegativeNegative - 50 Cj/mcLNOMS HealthcareClarity, UAClearNOMS Healthcare Color, UAYellowNOMS HealthcareGlucose, UANegativeNegative - 2000(110) ++++ mg/dL N[facility] HealthcareInterpretation and review of laboratory resultsNormalNOMT HealthcareKetones, UANegativeNegative - 160(16) ++++ mg/dLNOMT Healthcare Leukocytes, UANegativeNegative - 500+++ Cosmo/mcLNOMS HealthcareNitrite, UA NegativeNegative - PositiveNOMT HealthcarepH, UA6.55 - 9NOMS HealthcareProtein, UANegativeNegative - 2000(20) ++++ mg/dLNOMS HealthcareSpec Grav, UA1.011 - 1.03 NOMS HealthcareUrobilinogen, UA1.00.2 - 12 mg/dLNOMS [facility] Urinalysis macro (dipstick) panel (U)on 69-72-3020Bwthknzvl, UANegativeNegative - 4(70) +++ mg/dLNOMS HealthcareBlood, UANegativeNegative - 50 Cj/mcLNOMS HealthcareClarity, UAClearNOMS HealthcareColor, UAYellowNOMS HealthcareGlucose, UANegativeNegative - 1999(110) ++++ mg/dLNOMS HealthcareInterpretation and review of laboratory resultsAbnormalNOMS HealthcareKetones, UANegativeNegative - 160(16) ++++ mg/dLNOMS HealthcareLeukocytes, UAPositiveNegative - 500+++ Cosmo/mcLNOMS HealthcareNitrite, UANegativeNegative - PositiveNOMS HealthcarepH, UA65 - 9NOMS HealthcareProtein, UANegativeNegative - 1999(20) ++++ mg/dLNOMS HealthcareSpec Grav, UA1.0251 - 1.03NOMS HealthcareUrobilinogen, UA1.00.2 - 12 mg/dLNOMS Community Regional Medical CenterNOMT HealthcareIGP,APTIMA HPV,AGE GDLNon 70-14-6056YMQ GDLN ACOG TESTINGNote.[facility] HealthcareComment on above:TESTS RESULT FLAG UNITS REF RANGE LAB Clinician Provided Cytology Information Source.............Endocervix No. of containers..01 ThinPrep Vial Age Algo ACOG Marina... FLAG LEGEND: L-Low Normal,H-High Normal,LL-Alert Low,HH-Alert High <-Panic Low,>-Panic High,A-Abnormal,AA-Critical Abnormal Performed at: 01 =[facility] [place] [address] Maliha Cobb MD, IGP, RFX APTIMA HPV ASCUNote.NOMS HealthcareComment on above:TESTS RESULT FLAG UNITS REF RANGE LAB DIAGNOSIS: 02 NEGATIVE FOR INTRAEPITHELIAL LESION OR MALIGNANCY. Specimen adequacy: 02 Satisfactory for evaluation. No endocervical component is identified. Performed by: aSnti Gregory, Student Financial Aid Manager ([facility]) . 02 Note: Note 02 The [...] <-Panic Low,>-Panic High,A-Abnormal,AA-Critical Abnormal Performed at: [address] [address] Maliha Cobb MD, Performed at: = - [facility] [address] [id number] Development Eng: Maliha Cobb MD, Phone: [phone] Performed at: [facility] [address] [id number] Development Eng: Maliha Cobb MD, Phone: [phone] SPATULA-ALONE ENDOCERVIX CLINISYNCNOMS HealthcareRECURRENT VAGINITIS (HTRX)on [id number] VAGINAE 0NOMS HealthcareATOPOBIUM VAGINAENot detectedNOMS HealthcareBVAB 2,3 (BACTERIAL VAGINOSIS ASSOCIATED BACTERIA 2, 3); MOBILUNCUS [id number] HealthcareBVAB 2,3 (BACTERIAL VAGINOSIS ASSOCIATED BACTERIA 2, 3); MOBILUNCUS SPPNot detectedNOMS HealthcareCANDIDA ALBICANS, PARAPSILOSIS, [id number] HealthcareCANDIDA ALBICANS, PARAPSILOSIS, TROPICALISNot detectedNOMS HealthcareCANDIDA GLABRATA0 NOMS HealthcareCANDIDA GLABRATANot detectedNOMS HealthcareCANDIDA [id number] HealthcareCANDIDA KRUSEINot detectedNOMS HealthcareCHLAMYDIA [id number] HealthcareCHLAMYDIA TRACHOMATISNot detectedNOMS HealthcareGARDNERELLA VAGINALIS0 NOMS HealthcareGARDNERELLA VAGINALISNot detectedNOMS HealthcareMEGASPHAERA (TYPES 1, 2)0NOMS HealthcareMEGASPHAERA (TYPES 1, 2)Not detectedNOMS Healthcare MYCOPLASMA XCOAQOMNDQ6BSPP HealthcareMYCOPLASMA GENITALIUMNot detectedNOMS HealthcareNEISSERIA [id number] HealthcareNEISSERIA GONORRHOEAENot detected NOMS HealthcareTRICHOMONAS KURTIBBWH3SBPF HealthcareTRICHOMONAS VAGINALISNot detectedNOMS HealthcareNOMS HealthcareUS OB 14+ [...] Delivery: 07/05/25 Gestational Age as of 01/14/2025: 22b7aHdnjlglzsh macro (dipstick) panel (U)on 62-36-7284Qpcdvtmbe, UANegativeNegative - 4(70) +++ mg/dLNOMS HealthcareBlood, UANegativeNegative - 50 Cj/mcLNOMS HealthcareClarity, UAClearNOMS Healthcare Color, UAYellowNOMS HealthcareGlucose, UANegativeNegative - 2000(110) ++++ mg/dL NOMS HealthcareInterpretation and review of laboratory resultsNormalNOMS HealthcareKetones, UANegativeNegative - 160(16) ++++ mg/dLNOMS Healthcare Leukocytes, UANegativeNegative - 500+++ Cosmo/mcLNOMS HealthcareNitrite, UA NegativeNegative - PositiveNOMS HealthcarepH, UA65 - 9NOMS HealthcareProtein, UA NegativeNegative - 2000(20) ++++ mg/dLNOMT HealthcareSpec Grav, UA1.021 - 1.03 NOMS HealthcareUrobilinogen, UA1.00.2 - 12 mg/dLNOMT HealthcareNOMS Healthcare Urinalysis macro (dipstick) panel (U)on 92-60-7710Hgqggrfmt, UANegativeNegative - 4(70) +++ mg/dLNOMS HealthcareBlood, UANegativeNegative - 50 Cj/mcLNOMT HealthcareClarity, UAClearNOMT HealthcareColor, UAYellowNOMT HealthcareGlucose, UANegativeNegative - 2000(110) ++++ mg/dLNOMT HealthcareInterpretation and review of laboratory resultsAbnormalSEVIER VALLEY [facility] HealthcareKetones, UANegativeNegative - 160(16) ++++ mg/dLSEVIER VALLEY [facility]OSPITAL HealthcareLeukocytes, UAPositiveNegative - 500+++ Cosmo/mcLSEVIER VALLEY HOSPITAL HealthcareComment on above:smallNitrite, UANegativeNegative - PositiveNOMS HealthcarepH, UA5.55 - 9NOMS HealthcareProtein, UANegativeNegative - 2000(20) ++++ mg/dLNOMT HealthcareSpec Grav, UA1.031 - 1.03NOMT Healthcare Urobilinogen, UA0.20.2 - 12 mg/dLNOCenterpoint Medical CenterNOMS HealthcareALL CBC WITH AUTO DIFFon 72-53-3519NRANDFCQY ABSOLUTE AUTO0.1NOMS HealthcareBasophils/100 WBC (Bld)0.4 %0.2 - 2.0 %NOMS HealthcareEosinophils/100 WBC (Bld)0.9 %0.9 - 7.0 % [facility] HealthcareErythrocyte distribution width (RBC) [Ratio]13.4 %11.0 - 15.0 % [facility] HealthcareHematocrit (Bld) [Volume fraction]43.2 %36.0 - 48.0 %[facility] HospitalHemoglobin (Bld) [Mass/Vol]15.2 g/dL12.0 - 16.0 g/dLFulton State Hospital IMMATURE GRANULOCYTES ABS AUTO0.05HighNOCenterpoint Medical CenterImmature granulocytes/100 WBC (Bld)0.4 %0.0 - 0.5 %[facility] HospitalInterpretation and review of laboratory resultsAbnormalFulton State HospitalLYMPHOCYTES ABSOLUTE AUTO2.3[facility] Lymphocytes/100 WBC (Bld)17.1 %Low20.5 - 60.0 %[facility] for ChildrenH (RBC) [Entitic mass]29.9 pg26.7 - 34.0 pgShriners Hospitals for ChildrenHC (RBC) [Mass/Vol]35.2 g/dL29.9 - 35.2 g/dLShriners Hospitals for ChildrenV (RBC) [Entitic vol]85 fL81.0 - 99.0 fLFulton State HospitalMONOCYTES ABSOLUTE AUTO0.7F[facility] State HospitalMonocytes/100 WBC (Bld)5.5 % 1.7 - 12.0 %[facility] HospitalNEUTROPHILS ABSOLUTE AUTO10.3HighFulton State Hospital Neutrophils/100 WBC (Bld)75.7 %High43.0 - 75.0 %[facility] State HospitalPlatelet mean volume (Bld) [Entitic vol]11.8 fL9.5 - 13.5 fLFulton State HospitalTB EO #0.1NOMS [facility] JQS852YKSJThe [facility] RBC5.08NOThe [facility] WBC13.6HighFulton State HospitalCLINISYNCNSaint Alexius HospitalHCG ( test) Ql (U)on 12-05-2024 Interpretation and review of laboratory resultsAbnoAmerican Academic Health SystemPreg Test, UrPositiveNegativeCape Fear Valley Bladen County HospitalUS OB TRANSVAGINALon 12-05-2024 US OB TRANSVAGINALEXAM: [...] II, MD, PHD at 06-Dec-2024 08:41:12 AM [facility] TeleradiologyNormalNot AvailableComment on above:Order Comment: US OB TRANSVAGINAL No LMP recorded.Urinalysis macro (dipstick) panel (U)on 57-55-0550Iaedskxrc, UA NegativeNegative - 4(70) +++ mg/dLNOMS HealthcareBlood, UANegativeNegative - 50 Cj/[facility] Memorial HospitalNOMT HealthcareClarity, UAClearNOMT HealthcareColor, UAYellowNOMT HealthcareGlucose, UANegativeNegative - 2000(110) ++++ mg/dLNOMT Healthcare Interpretation and review of laboratory resultsAbnormalNOMT HealthcareKetones, UANegativeNegative - 160(16) ++++ mg/dLNOMT HealthcareLeukocytes, UAPositive Negative - 500+++ Cosmo/Bro[facility] Memorial HospitalNOMT HealthcareNitrite, UANegativeNegative - Positive NOMS HealthcarepH, UA75 - 9NOMS HealthcareProtein, UAPositiveNegative - 2000(20) ++++ mg/dLNOMS HealthcareSpec Grav, UA1.021 - 1.03NOMS HealthcareUrobilinogen, UA1.00.2 - 12 mg/dLNOMT HealthcareNOMS HealthcareCORTISOL 24HR URINEon 73-66-0528Bhkhdkrd,F,ug/24hr,U26 ug/24 hrNormal6-42Prem[facility] SouthComment on above:Performed By: #### CORT24 #### [facility] [address] [address] [address] Lucretia ZamudioCortisol,F,ug/L,U10 ug/LNormalUndefinedThe [facility] Comment on above:Performed By: #### CORT24 #### [facility] [address] [address] [address] Lucretia ZamudioCT ABDOMEN WO/W CONon 90-67-5266QS ABDOMEN WO/W CONCLINICAL HISTORY: Blood chemistry abnormal. [...] Electronically authenticated by: YOVANY CLARK Date: 2022-08-27 08:37[facility] SERUMon 29-79-1387Nitlvrahvrsbtzalduyqyg (DHEA)1255 ng/dL Critically xceu44-031Olk [facility] Medical CenterComment on above:Result Comment: Age 1 [...] 31 - 701Performed By: #### DHEA. #### [facility] [address] [place] [address] Dr. Lucretia ZamudioTESTOSTERONE, FREE,DIRECT, TOTALon 37-03-6886Lpue Testosterone(Direct)2.8 pg/mLNormal0.0-4.2[facility] SouthComment on above: Result Comment: Performed at: BNPerformed By: #### TESTFRD #### [facility] [address] [place] [address] Dr. Lucretia ZamudioTestosterone [Mass/Vol]42 ng/lAHprpgw90-40Zqg [facility] Comment on above:Result Comment: Performed at: CBPerformed By: #### TESTFRD #### [facility] [address] [place] [address] Dr. Lucretia ZamudioCORTISOL Shiv 84-72-4531Fsgysnre AM23.4 ug/dLCritically high 6.2-19.4The [facility]S Medical CenterComment on above:Performed By: #### PROGES #### [facility] [address] [place] [address] Dr. Lucretia ZamudioDHEA-SULFATEon 73-71-0562ZANK-Ozluxez013.0 ug/aZWxwtfr52.8-378.[address] [facility]S Medical CenterComment on above:Performed By: #### LBCLH #### [facility] [address] [place] [address] Dr. Lucretia VergaraTRADIOLon 65-37-2157Wryirmfew383.0 pg/mLNormalThe [facility] Medical CenterComment on above:Result Comment: Adult Female: Follicular phase 12.5 - 166.0 Ovulation phase 85.8 - 498.0 Luteal phase 43.8 - 211.0 Postmenopausal <6.0 - 54.7 1st trimester 215.0 - >4300.0 Dona ECLIA methodologyPerformed By: #### ESTRADI #### [facility] [address] [place] [address] Dr. Lucretia TanHon 33-67-3144YAX2.0 mIU/mLNormalPremier Health Miami Valley Hospital SouthComment on above:Result Comment: Adult Female: Follicular phase 3.5 - 12.5 Ovulation phase 4.7 - 21.5 Luteal phase 1.7 - 7.7 Postmenopausal 25.8 - 134.8Performed By: #### LBCFSH #### [facility] [address] [place] [address] Dr. Lucretia ZamudioLUTEINIZING HORMONE (LH)on 09-61-8608GE2.7 mIU/mLNAvita Health System Bucyrus HospitalComment on above:Result Comment: Adult Female: Follicular phase 2.4 - 12.6 Ovulation phase 14.0 - 95.6 Luteal phase 1.0 - 11.4 Postmenopausal 7.7 - 58.5Performed By: #### LBCLH #### [facility] [address] [place] [address] Dr. Lucretia ZamudioPROGESTERONEon 69-42-6777Geonhmrwuxkn7.2 ng/mLNAvita Health System Bucyrus HospitalComment on above:Result Comment: Follicular phase 0.1 - 0.9 Luteal phase 1.8 - 23.9 Ovulation phase 0.1 - 12.0 First trimester 11.0 - 44.3 Second trimester 25.4 - 83.3 Third trimester 58.7 - 214.0 Postmenopausal 0.0 - 0.1Performed By: #### PROGES #### [facility] [address] [place] [address] Dr. Lucretia ZamudioFREE T4on 03-96-6355Evyy T4 [Mass/Vol]1.13 ng/dLNormal0.76-1.46 [facility] SouthComment on above:Performed By: #### FT4 #### [facility] [address] [place] [address] Dr. Lucretia ZamudioGLYCOHEMOGLOBIN A1Con 51-18-7544VPI RECOMMENDATIONSEE BELOWNormal [facility] SouthComment on above:Result Comment: ADA RECOMMENDED LIMIT 4.0 - 6.0 ADA THERAPEUTIC TARGET < 7.0 ACTION SUGGESTED > 7.0Performed By: #### PROGES #### [facility] [address] [place] [address] Dr. Lucretia ZamudioGlucose [Mass/Vol]105 mg/dLNormalThRegional Medical CenterComment on above:Performed By: #### PROGES #### [facility] [address] [place] [address] Dr. Lucretia ZamudioHbA1c (Bld) [Mass fraction]5.3 %Normal4.5-6.2The [facility] – Jacksonment on above:Performed By: #### PROGES #### [facility] [address] [place] [address] Dr. Lucretia ZamudioTSHon 55-20-7119DLH7.971 uIU/mLNormal0.358-3.740The [facility]S Medical CenterComment on above:Performed By: #### TSH #### [facility] [address] [place] [address] Dr. Lucretia ZamudioUS PELVIS AND TRANSVAGon 27-69-4419ZQ PELVIS AND TRANSVAG EXAMINATION: US PELVIS AND [...] authenticated by: GIA PRESCOTT Date: 2022-08-02 18:42NormalThe [facility]S Medical CenterAMYLASEon 25-18-9167Kvbiehs [Catalytic activity/Vol]50 U/L Utpyih87-950Pcv [facility] on above:Performed By: #### PROGES #### [facility] [address] [place] [address] Dr. Lucretia ZamudioCBC AUTO DIFFon 47-99-2798LAZL #0.1 103/ulNormal0.0-0.1The [facility] on above:Performed By: #### CBC #### [facility] [address] [address] [address] Lucretia ZamudioBasophils/100 WBC (Bld)0.9 %Normal0.2-2.0The [facility] Comment on above:Performed By: #### CBC #### [facility] [address] [place] [address] Dr. Lucretia Lynne #0.4 103/ulNormal0.0-0.7The [facility]S Medical CenterComment on above: Performed By: #### CBC #### [facility] [address] [place] [address] Dr. Lucretia Huntosinophils/100 WBC (Bld)3.4 %Normal0.9-7.0The [facility] Comment on above:Performed By: #### CBC #### [facility] [address] [place] [address] Dr. Lucretia Huntrythrocyte distribution width (RBC) [Ratio]12.7 %Omevem04.0-15.[address] [facility] Medical CenterComment on above:Performed By: #### CBC #### [facility] [address] [place] [address] Dr. Lucretia ZamudioHematocrit (Bld) [Volume fraction]44.1 %Vhcdif79.0-48.0The [facility]S Medical CenterComment on above:Performed By: #### CBC #### [facility] [address] [place] [address] Dr. Lucretia ZamudioHemoglobin (Bld) [Mass/Vol]14.5 g/fJWbiypr84.0-16.0The [facility] Medical CenterComment on above:Performed By: #### CBC #### [facility] [address] [place] [address] Dr. Lucretia Gomez #0.03 10e3/ulNormal0.00-0.03The [facility]S Medical CenterComment on above:Performed By: #### CBC #### [facility] [address] [place] [address] Dr. Lucretia Gomez %0.3 %Normal0.0-0.5The [facility]S Medical CenterComment on above: Performed By: #### CBC #### [facility] [address] [address] [address] Lucretia Brush #2.9 103/ulNormal1.2-3.8The [facility]S Medical CenterComment on above:Performed By: #### CBC #### [facility] [address] [address] [address] Lucretia Worthingtonmphocytes/100 WBC (Bld)24.9 %Ukzsco75.5-60.0The [facility] Medical CenterComment on above:Performed By: #### CBC #### [facility] [address] [place] [address] Dr. Lucretia Krishnan DIFF REQNONormalThe [facility]S Medical CenterComment on above: Performed By: #### CBC #### [facility] [address] [place] [address] Dr. Lucretia Simmons (RBC) [Entitic mass]28.9 kkWhwbpm30.7-34.0The [facility] Medical CenterComment on above:Performed By: #### CBC #### [facility] [address] [place] [address] Dr. Lucretia Simmons (RBC) [Mass/Vol]32.9 g/uABdxvju89.9-35.2The [facility] Medical CenterComment on above:Performed By: #### CBC #### [facility] [address] [place] [address] Dr. Lucretia Simmons (RBC) [Entitic vol]87.8 kKSwayjk92.0-99.0The [facility] Medical CenterComment on above:Performed By: #### CBC #### [facility] [address] [place] [address] Dr. Lucretia Lemus #0.6 103/ulNormal0.3-0.8The [facility]S Medical CenterComment on above:Performed By: #### CBC #### [facility] [address] [place] [address] Dr. Lucretia Manzoocytes/100 WBC (Bld)5.4 %Normal1.7-12.0The [facility] Comment on above:Performed By: #### CBC #### [facility] [address] [address] [address] Lucretia Waterman #7.6 103/ulCritically high1.4-6.5The [facility] Comment on above:Performed By: #### CBC #### [facility] [address] [place] [address] Dr. Lucretia Wagnerutrophils/100 WBC (Bld)65.1 %Rueiun85.0-75.0The [facility]S Medical CenterComment on above:Performed By: #### CBC #### [facility] [address] [place] [address] Dr. Lucretia ZamudioPlatelet mean volume (Bld) [Entitic vol]10.0 fLNormal9.5-13.5The [facility]S Medical CenterComment on above:Performed By: #### CBC #### [facility] [address] [place] [address] Dr. Lucretia ZamudioPLT277 103/xdAtdukx840-974Trt [facility] Medical CenterComment on above: Performed By: #### CBC #### [facility] [address] [place] [address] Dr. Lucretia ZamudioRBC5.02 106/ulNormal4.20-5.40The [facility]'S Medical CenterComment on above:Performed By: #### CBC #### [facility] [address] [place] [address] Dr. Lucretia ZamudioWBC11.6 103/ulCritically high4.0-11.0The [facility]S Medical CenterComment on above:Performed By: #### CBC #### [facility] [address] [place] [address] Dr. Lucretia ZamudioCULTZA URINEon 68-97-2355LXTAYWJ URINECulture Observations: LIGHT GROWTH OF MIXED GENITAL SILVIA. NO POTENTIAL PATHOGENS SEEN.NormalThe [facility]S Medical CenterComment on above:Performed By: #### PROGES #### [facility] [address] [place] [address] Dr. Lucretia ZamudioLIPASEon 69-26-6889Mqgnly [Catalytic activity/Vol]85.0 U/LNormal 73.0-393.0The [facility]S Medical CenterComment on above:Performed By: #### PROGES #### [facility] [address] [place] [address] Dr. Lucretia Shoemaker QUANT HCGon 57-62-8463GMB QUANT1 mIU/mLNormalThe [facility]S Medical CenterComment on above:Performed By: #### PROGES #### [facility] [address] [place] [address] Dr. Lucretia Leyva RANGESEE [facility]itan Medical CenterComment on above: Result Comment: 5-50 0.2-1 WEEK 50-500 1-2 WEEKS 100-5,000 2-3 WEEKS 500-10,000 3-4 WEEKS 1,000-50,000 4-5 WEEKS 10,000-100,000 5-6 WEEKS 15,000-200,000 6-8 WEEKS 10,000-100,000 2-3 MONTHSPerformed By: #### PROGES #### [facility] [address] [place] [address] Dr. Lucretia ZamudioPROF 14(COMP METB)on 00-20-1978Xsvnaak [Mass/Vol]4.0 g/dLNormal 3.4-5.0The [facility] on above:Performed By: #### PROGES #### [facility] [address] [place] [address] Dr. Lucretia ZamudioAlbumin/Globulin [Mass ratio]1.1 {ratio}NormalThe [facility] on above:Performed By: #### PROGES #### [facility] [address] [place] [address] Dr. Lucretia Brunson [Catalytic activity/Vol]98 U/MMfbtkn83-575Gbj [facility] Medical CenterComstraith hospital for special surgery on above:Performed By: #### PROGES #### [facility] [address] [place] [address] Dr. Lucretia Mauro [Catalytic activity/Vol]16 U/OFnadng63-00Kca [facility] on above:Performed By: #### PROGES #### [facility] [address] [place], [place] [address] Dr. Lucretia Whyte gap [Moles/Vol]9.7 mmol/LNormalThe [facility]S Medical CenterComment on above:Performed By: #### PROGES #### [facility] [address] [address] [address] Lucretia ZamudioAST [Catalytic activity/Vol]15 U/QCujdop08-26Evs [facility]S Medical CenterComment on above:Performed By: #### PROGES #### [facility] [address] [address] [address] Lucretia ZamudioBilirubin [Mass/Vol]0.2 mg/dLNormal0.2-1.0The [facility] Comment on above:Performed By: #### PROGES #### [facility] [address] [place] [address] Dr. Lucretia ZamudioCalcium [Mass/Vol]9.5 mg/dLNormal8.5-10.1The [facility] Comment on above:Performed By: #### PROGES #### [facility] [address] [place] [address] Dr. Lucretia ZamudioChloride [Moles/Vol]102 mmol/XAylfja47-208Sur [facility] Comment on above:Performed By: #### PROGES #### [facility] [address] [place] [address] Dr. Lucretia ZamudioCO2 [Moles/Vol]31.5 mmol/XUpmnyu49.0-32.0The [facility] Comment on above:Performed By: #### PROGES #### [facility] [address] [address] [address] Lucretia ZamudioCreatinine [Mass/Vol]0.79 mg/dLNormal0.55-1.02The [facility] Medical CenterComment on above:Performed By: #### PROGES #### [facility] [address] [address] [address] Lucretia Foster-AF OMANI>60Normal>=60The [facility]S Medical CenterComment on above:Performed By: #### PROGES #### [facility] [address] [place] [address] Dr. Lucretia HuntGFR-NON AF OMANI>60Normal>=60The [facility]S Medical CenterComment on above:Performed By: #### PROGES #### [facility] [address] [place] [address] Dr. Lucretia ZamudioGlobulin (S) [Mass/Vol]3.8 g/dLNormHenry County HospitalComment on above:Performed By: #### PROGES #### [facility] [address] [place] [address] Dr. Lucretia ZamudioGlucose [Mass/Vol]95 mg/lUZbpdkz23-195Hat [facility] Comment on above:Performed By: #### PROGES #### [facility] [address] [place] [address] Dr. Lucretia ZamudioPotassium [Moles/Vol]4.2 mmol/LNormal3.5-5.1The [facility] Comment on above:Performed By: #### PROGES #### [facility] [address] [place] [address] Dr. Lucretia ZamudioProtein [Mass/Vol]7.8 g/dLNormal6.4-8.2The [facility] Comment on above:Performed By: #### PROGES #### [facility] [address] [place] [address] Dr. Lucretia ZamudioSodium [Moles/Vol]139 mmol/MYyxkoe434-702CcpPremier Health [facility] Comment on above:Performed By: #### PROGES #### [facility] [address] [place] [address] Dr. Lucretia ZamudioUrea nitrogen [Mass/Vol]12.0 mg/dLNormal7.0-18.0The [facility] Medical CenterComment on above:Performed By: #### PROGES #### [facility] [address] [place] [address] Dr. Lucretia Gibbs nitrogen/Creatinine [Mass ratio]15.2 mg/mgNormHenry County HospitalComment on above:Performed By: #### PROGES #### [facility] [address] [place] [address] Dr. Lucretia Pollack RANDOMon 73-78-6028Vhhjsybdd Ql (U)NegativeNormalNEGATIVEPremier Health Miami Valley Hospital SouthComment on above:Performed By: #### PROGES #### [facility] [address] [address] [address] Lucretia Salesarity (U)CLEARNormalCLEARPremier Health Miami Valley Hospital SouthComment on above: Performed By: #### PROGES #### [facility] [address] [address] [address] Lucretia Cruz (U)LT. YELLOWNormalYELLOWPremier Health Miami [facility] Hospital SouthComment on above:Performed By: #### PROGES #### [facility] [address] [address] [address] Lucretia ZamudioGlucose Ql (U)NegativeNormalNEGATIVEPremier Health Miami Valley Hospital SouthComment on above:Performed By: #### PROGES #### [facility] [address] [place] [address] Dr. Lucretia ZamudioHemoglobin Ql (U)NegativeNormalNEGATIVEKettering Health [facility] on above:Performed By: #### PROGES #### [facility] [address] [place] [address] Dr. Lucretia ZamudioKetones Ql (U)NegativeNormalNEGATIVEPremier Health Miami Valley Hospital SouthComment on above:Performed By: #### PROGES #### [facility] [address] [place] [address] Dr. Lucretia ZamudioLEUKOCYTESNegativeNormalNEGATIVEPremier Health Miami Valley Hospital SouthComment on above:Performed By: #### PROGES #### [facility] [address] [address] [address] Lucretia ZamudioNitrite Ql (U)NegativeNormalNEGATIVEPremier Health Miami Valley Hospital SouthComment on above:Performed By: #### PROGES #### [facility] [address] [address] [address] Lucretia ZamudiopH (U)7.0 [pH]Normal5-9[facility] SouthComment on above: Performed By: #### PROGES #### [facility] [address] [address] [address] Lucretia ZamudioSPEC GRAVITY1.152Fwvkcc1.005-<=1.025The [facility]'S Medical CenterComment on above:Performed By: #### PROGES #### [facility] [address] [address] [address] Lucretia Pollack PROTEINNegativeNormalNEGATIVE/ TRACEThe [facility] Comment on above:Performed By: #### PROGES #### [facility] [address] [address] [address] Lucretia Davidbilinogen Qn (U)0.2 {Tommie'U}/dLNormal0.2 - 1.0The [facility]S Medical CenterComment on above:Performed By: #### PROGES #### [facility] [address] [address] [address] Lucretia ZamudioPhysical Therapy Noteon 79-65-7134Gnzmsbmj Therapy Note [id number]#1.00[facility] Coding Summaryon 50-10-7708Gwyvmn SummaryHTMLBase 64 WupuyfwmXEq0pOv+PGhlYWQ+CP6RWQXrH19qrXEbkA2NL9gFCK6HMUWBOEBFWO2CVT7vpSG6XOqtT4Dj biAv [file] PSd (more content not included)...[facility] HospitalProvider Orderson 01-48-8034Gpouzeje [id number]#1.00OTSelect Medical Specialty Hospital - Cleveland-FairhillConsent Formson 25-15-4071Vanigki Forms [id number]#1.00[facility] Physical Therapy Noteon 28-44-9260Wtchjdnw Therapy Note [id number]#1.00[facility] Provider Orderson 99-47-9727Wyfrybmq Orders [id number]#1.00[facility] Coding Summaryon 86-98-0525Pcwntv SummaryHTMLBase 64 XbuhuvrmEGp7lFz+PGhlYWQ+MC2OYEXyK91okDCqsI8XW8eXBE7XDSEZVLLGOF6RET0ibRM3MPazX9Tu biAv [file] PSd (more content not included)...[facility] HospitalRad - MRI Reporton 73-90-1352Lrc - MRI [id number]#1.00OTGTIFF [facility] Vital Signs Date TimeVital SignValuePerforming AufpdgpcuNgrvavog46-74-6209 13:19-0400Body mass index (BMI) [Ratio]34.36 kg/t8Bniis Angel DO Work Phone: [phone] [place], [place] [address]Jnoxluhdiv83-12-2204 13:19-0400Body ajtuhn008.51 kgCorey Angel DO Work Phone: 1([phone] [place], [place] [address]Kwwqhtuemp14-74-8182 13:19-0400Diastolic blood untzzefg71 mm[Hg]Junito Angel DO Work Phone: [phone] [place], [place] [address]Adokiuxiph14-73-6190 13:19-0400Systolic blood tbvphper483 mm[Hg]Junito Angel DO Work Phone: [phone] [place], [place] [address]Ouwdfrttqa44-17-9488 14:29-0400Body mass index (BMI) [Ratio]33.15 kg/c7Atzub Angel DO Work Phone: [phone] [place], [place] [address]Iqknfnlevm37-83-4706 14:29-0400Body .88 kgCorey Angel DO Work Phone: [phone] HospitalAjoeacbcok56-28-0867 14:29-0400Diastolic blood fgekqoqx40 mm[Hg]Junito Angel DO Work Phone: [phone] [place], [place] [address]Mcusrkpprt09-41-8640 14:29-0400Systolic blood xkcnkhke116 mm[Hg]Junito Angel DO Work Phone: [phone]-[facility] HospitalLsunpfghzn88-28-9648 10:06-0400Body mass index (BMI) [Ratio]31.75 kg/m2HbxkmrabInna Kirkland AUTOMOBILE BODY CUSTOMIZER Work Phone: 1(538)283-[address] [place], [place] [address]Etvoaxralq65-31-7541 10:06-0400Body aflyzu25.71 kgInna Kirkland AUTOMOBILE BODY CUSTOMIZER Work Phone: [phone] [place], [place] [address]Hpxuvflrsr44-35-8204 10:06-0400Diastolic blood kaeyeiyp11 mm[Hg]Inna Kirkland AUTOMOBILE B[employer] CUSTOMIZER Work Phone: 1(682)386-[address] [place], [place] [address]Vonammxves26-94-6052 10:06-0400Systolic blood mcfwwoyk336 mm[Hg]Inna Kirkland AUTOMOBILE BODY CUSTOMIZER Work Phone: 1(988)[facility] [place], [place] [address]Gdzrjqkvwk72-33-2466 14:59-0400Body mass index (BMI) [Ratio]30.99 kg/x1Mvwit Angel DO Work Phone: 1(951)[facility] [place], [place] [address]Yuxckdoben54-25-3621 14:59-0400Body qlqloh91.44 kgCorey Angel DO Work Phone: 1(202)[facility] [place], [place] [address]Fwimoovuxq01-29-2211 14:59-0400Diastolic blood ccfpdkeo63 mm[Hg]Junito Angel DO Work Phone: 1(791)[facility] [place], [place] [address]Dsisrdjxnm07-24-1147 14:59-0400Systolic blood sixedkit434 mm[Hg]Junito Angel DO Work Phone: 1(497)[address] [place], [place] 0154306-25-2025 13:39-0400Body mass index (BMI) [Ratio]29.73 kg/c4Ogkka Angel DO Work Phone: 1([phone])[address] [place], [place] 0154306-25-2025 13:39-0400Body efdcig36.68 kgCorey Angel DO Work Phone: 1(051)[facility] [place], [place] [address]Rwthpquawd79-95-2860 13:39-0400Diastolic blood mm[Hg]Junito Angel DO Work Phone: 1(378)[facility] [place], [place] [address]Ysgiqgyhte78-08-1706 13:39-0400Systolic blood elbkmukb766 mm[Hg]Junito Angel DO Work Phone: 1(046)[address] [place], [place] 0154307-02-2024 12:30-0400Body .45 cmAPRYamilka Crocketterwhit Work Phone: 1(167)[address] [place], [place] 6607507-02-2024 12:30-0400 Body mass index (BMI) [Ratio]31.6 kg/m2YANELI Crocketterwhit Work Phone: 1(260)[address] [place], [place] 6607507-02-2024 12:30-0400 Body fbredudzuek53.8 [degF]YANELI Crocketterwhit Work Phone: 1(050)[address] [place], [place] 6607507-02-2024 12:30-0400 Body ilkjel07.98 kgYANELI Ding Work Phone: 1(329)[address] [place], [place] 6607507-02-2024 12:30-0400 Diastolic blood tksukthy26 mm[Hg]YANELI Crocketterwhit Work Phone: 1(542)[address] [place], [place] 6607507-02-2024 12:30-0400 Heart rate69 /minYANELI Crocketterwhit Work Phone: 1(202)[address] [place], [place] 6607507-02-2024 12:30-0400 Respiratory rate20 /minYANELI Crocketterwhit Work Phone: 1(445)[address] [place], [place] 6607507-02-2024 12:30-0400 SaO2% (BldA) [Mass fraction]99 %YANELI Crocketterwhit Work Phone: 1(171)[address] [place], [place] 6607507-02-2024 12:30-0400 Systolic blood ywsknrir132 mm[Hg]YANELI Crocketterwhit Work Phone: 1(715)[address] [place], [place] 6607506-05-2024 08:58-0400 Body huonyv642.45 [facility]06[facility]05-2024 08:58-0400Body mass index (BMI) [Ratio]31.6 kg/k3UzsatodvnSalem Regional Medical Center06-05-2024 08:58-0400Body ihjvmm18.98 kgSal[facility] Center03-27-2024 11:00-0400Body mdvwav338.45 cmSal[facility]03-27-2024 11:00-0400Body mass index (BMI) [Ratio]31.6 kg/c7AyouxpjbeSalem Regional Medical Center03-27-2024 11:00-0400Body bemjaxnzyhx24 [degF][facility]03-27-2024 11:00-0400Body .98 kg[facility] 09-19-2023 11:00-0400Diastolic blood cozigctj27 mm[Hg][facility]03-27-2024 11:00-0400Heart rate80 /[facility] 09-19-2023 11:00-0400Respiratory rate20 /[facility] 09-19-2023 11:00-8397IuA6% (BldA) [Mass fraction]98 %[facility]03-27-2024 11:00-0400Systolic blood hopticgu262 mm[Hg][facility]03-13-2024 09:42-0400Body gihgci251.7 Serg DUONGC Work Phone: [facility] [email or web address] Hzprsh06-86-0516 09:42-0400Body mass index (BMI) [Ratio]30.79 kg/f8EpzdpskTy CRISTINA-C Work Phone: [facility] Euaoux76-77-9274 09:42-0400Body bkcatd70.85 kgTy CRISTINA-C Work Phone: [facility] Zafxwl00-02-7029 09:42-0400Diastolic blood lvzesyfx36 mm[Hg]Ty CRISTINA-C Work Phone: [facility] Xmhjni90-85-7806 09:42-0400Heart rate 73 /minTy CRISTINA-C Work Phone: [facility] [email or web address] Jiefjy39-46-5332 09:42-0400Systolic blood elggrice689 mm[Hg]Ty CRISTINA-C Work Phone: [facility] Cvvfxx45-07-5094 17:00-0500Body dkwpse514.45 cmDana Easterwood Other [employer]Bookacoach Other 12-06-2023 08:00-0500Body gygqja635.45 cmDana Easterwood Other [email or web address] Other 12-06-2023 08:00-0500Body mass index (BMI) [Ratio] 33.48 kg/m2Dana Bonermilligan Other [email or web address] Other 12-06-2023 08:00-0500Body nuvuuhrwvzn97.2 [degF]Nelida Bonerwood Other [employer] Other 12-06-2023 08:00-0500Body gdqiag95.43 kgDana Bonwhit Other [email or web address] Other 12-06-2023 08:00-0500Diastolic blood xocjnfqe34 mm[Hg] Nelida Easterwood Other [email or web address] Other 12-06-2023 08:00-0500Respiratory rate20 /minDana Easterwood Other [email or web address] Other 12-06-2023 08:00-4070FwY2% (BldA) [Mass fraction]99 % Nelida Easterwood Other [email or web address] Other 12-06-2023 08:00-0500Systolic blood npvtyrzp504 mm[Hg] Nelida Easterwood Other [email or web address] Other 09-11-2023 10:30-0400Body .45 cmDana Bonerwhit Other [employer] Other 09-11-2023 10:30-0400Body mass index (BMI) [Ratio] 33.33 kg/m2Dana Easterwood Other [email or web address] Other 09-11-2023 10:30-0400Body bcyfshaumyh04 [degF]Nelida Easterwood Other [employer] Other 09-11-2023 10:30-0400Body isglyi28.98 kgDana Easterwood Other [email or web address] Other 09-11-2023 10:30-0400Diastolic blood mxtgmpvu02 mm[Hg] Nelida Easterwood Other [email or web address] Other 09-11-2023 10:30-0400Respiratory rate20 /minDana [facility] Other [email or web address] Other 09-11-2023 10:30-5139LfU4% (BldA) [Mass fraction]99 % Nelida Easterwood Other [email or web address] Other 09-11-2023 10:30-0400Systolic blood yreawjct366 mm[Hg] Nelida Easterwood Other [employer] Other 08-30-2023 11:00-0400Body goeffs553.45 cmDana Easterwood Other [email or web address] Other 08-30-2023 11:00-0400Body mass index (BMI) [Ratio] 33.48 kg/m2Dana Easterwood Other [email or web address] Other 08-30-2023 11:00-0400Body yzoqisqczjm05.9 [degF]Nelida Ding Other [employer] Other 08-30-2023 11:00-0400Body wtokju47.43 kgDamanisha Ding Other [employer] Other 08-30-2023 11:00-0400Diastolic blood neetmgat63 mm[Hg] Nelida Ding Other [employer] Other 08-30-2023 11:00-0400Respiratory rate20 /minDjeromy Ding Other [email or web address] Other 08-30-2023 11:00-1305QiY7% (BldA) [Mass fraction]98 % Nelida Ding Other [email or web address] Other 08-30-2023 11:00-0400Systolic blood pfclorbu761 mm[Hg] Nelida iDng Other [employer] Other Encounters Encounter DateEncounter TypeCare ProviderFacilityStart: 81-20-4163xrntfnpcsh Inna EbivanlyFacility:[facility] Centertart: 04-29-2025 End: 80-08-7064Mrnpunbj flow sheetCorey Angel DO Work Phone: [facility] [place] OBGYNComment on above:Third trimester ([facility]); 30 weeks gestation of ([facility])Start: 04-29-2025 End: 84-80-8442gdkqggzqacGYXOU FAZIONot AvailableStart: 04-22-2025 End: 03-91-9815Lwgmbnali Result EncounterCorey Angel DO Work Phone: NOYI External Department UnsolicitedStart: 04-22-2025 End: 25-55-1992Ywsskrpxr Result EncounterCorey Angel DO Work Phone: noms External Department UnsolicitedStart: 04-15-2025 End: 61-32-8927Lmoqbn flowsheetCorey Angel DO Work Phone: NOXH [place] OBGYNStart: 04-15-2025 End: 32-86-8860Hahvyr flowsheetCorey Angel DO Work Phone: [facility] [place] OBGYNStart: 04-15-2025 End: 85-28-7898Tnbmqwvp flow sheetCorey Angel DO Work Phone: NOAN [place] OBGYNComment on above:Third trimester ([facility]); 28 weeks gestation of ([facility]); size inconsistent with dates ([facility]); Racing heart beatStart: 04-15-2025 End: 83-86-4323nysobkxegnPBFBN FAZIONot AvailableStart: 04-01-2025 End: 66-21-4340Ygvwlayos Result EncounterInna Kirkland NP Work Phone: NOFG External Department UnsolicitedStart: 04-01-2025 End: 73-07-4697Doosxfesr Result EncounterInna Kirkland NP Work Phone: noms External Department UnsolicitedStart: 03-18-2025 End: 54-01-5088Sbyicobr flow sheetCorey Angel DO Work Phone: [facility] [place] OBGYNComment on above:Second trimester ([facility]); 24 weeks gestation of ([facility]); Diabetes mellitus screeningStart: 03-18-2025 End: 23-47-6164qfyzwtakzzWVLTF FAZIONot AvailableStart: 02-18-2025 End: 39-19-8025Aotnjgkn flow sheetInna Kirkland NP Work Phone: [facility] [place] OBGYNComment on above:Nausea and vomiting in ([facility]) (Primary Dx); Second trimester ([facility]); 20 weeks gestation of ([facility]); Elevated heart rate with elevated blood pressure without diagnosis of hypertensionStart: 02-18-2025 End: 86-79-8722pdvspufkcfZORMAQIU EBERLYNot AvailableStart: 02-18-2025 End: 93-40-6741oyciaydcxqIKKTU FAZIONot AvailableStart: 01-14-2025 End: 55-40-6128Chvrjrl encounter procedureCorey Angel DO Work Phone: noms HealthcareStart: 01-14-2025 End: 42-94-7081Papjztid preventive med est patient 18-39 yrsCorey Angel DO Work Phone: [facility]oms [facility] OBComment on above:15 weeks gestation of ([facility]); Second trimester ([facility]); Gastroesophageal reflux disease with esophagitis, unspecified whether hemorrhage; Screening, , for anatomic survey ([facility]); Exposure to STD; Vaginal discharge; Well woman exam with routine gynecological exam; Nausea and vomiting in ([facility]); related fatigue in second trimester ([facility]); Insomnia, unspecified type; Other migraine with status migrainosus, not intractableStart: 01-14-2025 End: 21-49-2857ksbcqxdwnzRNMWH FAZIONot AvailableStart: 01-14-2025 End: 06-75-5788Uecupv flowsheetCorey Angel DO Work Phone: noms BCP OBStart: 01-14-2025 End: 65-60-5417Mwxckv flowsheetCorey Angel DO Work Phone: noms BCP OBStart: 01-14-2025 End: 22-71-4131Kscbozuou Result EncounterCorey Angel DO Work Phone: noms External Department UnsolicitedStart: 01-14-2025 End: 00-70-9173Lcffeddm Result EncounterCorey Angel DO Work Phone: noms External Department UnsolicitedStart: 12-17-2024 End: 80-53-2005Xtwbml flowsheetCorey Angel DO Work Phone: [facility] BCP OBStart: 12-17-2024 End: 17-10-4236Vkqmuy flowsheetCorey Angel DO Work Phone: [facility] BCP OBStart: 12-17-2024 End: 58-23-8086Tsljjzir flow sheetCorey Angel DO Work Phone: noMS BCP OBComment on above:11 weeks gestation of ([facility]); First trimester ([facility]); Nausea and vomiting in ([facility]); Gastroesophageal reflux disease with esophagitis, unspecified whether hemorrhage; Meconium aspiration in child of prior , currently , unspecified trimester ([facility])Start: 12-17-2024 End: 92-31-5457dqftkjmmaaIINKM FAZIONot AvailableStart: 12-10-2024 End: 31-04-3734Rhrdtgmmc Result EncounterCorey Angel DO Work Phone: noms External Department UnsolicitedStart: 12-10-2024 End: 61-59-8446Naqrzwatr Result EncounterCorey Angel DO Work Phone: noMS External Department UnsolicitedStart: 12-05-2024 End: 37-90-2120Idvcdk outpatient visit 5 minutesNoms Bcp Ob Angel NurseNOMS BCP OBComment on above:GA: 2y1wDrrjt: 12-05-2024 End: 11-56-1834pnbutkmlqvXFHNV FAZIONot AvailableStart: 07-03-2024 End: 88-23-1201KsbtixEqpshtlYamilex Stratton PA-C Work Phone: [facility] NeurologyComment on above: Migraine without aura and without status migrainosus, not intractableStart: 12-25-2023 End: 04-53-8785ylluudmjwlBFWK Nelida [facility] Work Phone: [facility] Work Phone: Start: 12-25-2023 End: 41-46-8315Eowtnbw encounter procedureAPRYamilka [facility] Work Phone: [facility] Work Phone: Start: 73-67-6696Ncd-patient / Non-visitYANELI [facility] Work Phone: [facility] Work Phone: Start: 12-05-2023 End: 13-85-0901djsvpqfcgrOMKP [facility] Work Phone: [facility] Work Phone: Start: 12-05-2023 End: 93-50-9384Vtrgpgca ReferredYANELI Mendoza [facility] Work Phone: [facility]-LAB Path Spec [facility] HospStart: 11-28-2023 End: 86-37-6159dnxoydlufyIvkzwgkgpGuernsey Memorial Hospital Work Phone: Start: 11-28-2023 End: 62-63-2165Qfijily encounter procedureGr[facility]ville [facility] Physician [facility] Work Phone: Start: 09-19-2023 End: 53-18-0324umxejsfyeyDyozxgcduGuernsey Memorial Hospital Work Phone: Start: 09-19-2023 End: 02-42-8007Tsvcjnc encounter procedureGranville Medical Center Physician GroupAd[facility] Work Phone: Start: 09-05-2023 End: 34-87-6407uvfebmfqhhPVUETQE C HAMILTONBethesda North Hospitalgay [facility] Medical Centertart: 09-05-2023 End: 91-85-2400Uxfpwa outpatient visit 25 minutesAnthaleksey Stratton PA-C Work Phone: [facility] NeurologyComment on above: Migraine without aura and without status migrainosus, not intractable (Primary Dx); Vestibular migraine; Pineal gland cyst; Hx of concussion; Daytime somnolenceStart: 95-15-8991Ywb-patient / Non-visitFirtonia [facility] Work Phone: Start: 07-16-2023 End: 26-31-6763fpijlfgpdlEkiw [facility] Other [employer] Other Start: 73-46-9030Kjksnvjsg encounterDana [facility] Family [facility] Hospitalomment on above:WEENING OFF QULIPTAStart: 07-09-2023 Patient encounter procedureBelle Physician Group-Start: 06-06-2023 End: 92-19-0129cglnyoaucaZgim [facility] Other [email or web address] Other Start: 60-51-9053IP ONLINE E/M JOHAN DICKINSON 05-14Dana [facility] Family [facility] Hospitaltart: 39-94-4752Gippkglgw encounterDana [facility] Hospitaltart: 05-30-2023 End: 22-82-3130vnkjaceqfzGcfd [facility] Other [employer] Other Start: 20-22-8322Qmixib outpatient visit 25 minutes Nelida [facility]: 05-25-2023 End: 88-33-2006ywwegnhmdrWtfo [facility] Other [email or web address] Other Start: 21-65-2341Xpfpdrgdd encounterDana [facility] Hospitaltart: 05-03-2023 End: 27-39-1198trsadkmvarJkgx [facility] Other [employer] Other Start: 63-22-3233Mqclrhnvi encounterDana [facility] Family [facility] Hospitaltart: 03-05-2023 End: 45-35-3249jmkmckxckcAmzl [facility] Other [employer] Other Start: 10-12-7416Pfwedw outpatient visit 25 minutes Nelida [facility] CenterkStart: 02-21-2023 End: 45-97-4495vrkqnxuqbdWkis [facility] Other [facility] Other Start: 47-11-8239Uwvocm outpatient visit 40 minutes Nelida [facility] HospitalkStart: 77-12-1539Pjakqnbdr encounter Nelida [facility]ertart: 11-01-2022 End: 71-75-5164sjnhtvuhvyXH JUNITO ANGEL .Facility:V5Tqgik: 09-06-2022 End: 61-30-8831fiqvhdcgkxCO JUNITO ANGEL .Facility:W1Zbydb: 08-26-2022 End: 34-66-0720jrgkuzqgiqTL JUNITO ANGEL .Facility:M3Qojjy: 08-02-2022 End: 61-71-8588oatcefelcnKW JUNITO ANGEL .Facility:T2Vyfip: 07-12-2022 End: 30-31-4946lmxqimduyaCC GIA Yocility:H1 Procedures DateProcedureProcedure DetailPerforming ClinicianStart: 41-88-6022Tflbo dip stick/tablet rgnt non-auto w/o micrscpCorey Angel DO Work Phone: Start: 14-47-6900FG ECHO DOPPLER COMPLETECorey Angel DO Work Phone: Start: 64-66-5222VFY 12-LEADCorey Angel DO Work Phone: Start: 76-29-8684Lcgvq dip stick/tablet rgnt non-auto w/o micrscpCorey Angel DO Work Phone: Start: 54-72-7162KWPPKWG 1 HOURInna Kirkland AUTOMOBILE BODY CUSTOMIZER Work Phone: Start: 62-23-7132Bajue dip stick/tablet rgnt non-auto w/o micrscpInna Kirkland AUTOMOBILE BODY CUSTOMIZER Work Phone: Start: 32-21-3914Pbmvs dip stick/tablet rgnt non-auto w/o micrscpInna Kirkland AUTOMOBILE BODY CUSTOMIZER Work Phone: Start: 63-35-2198XUHBTNVLG VAGINITIS (HTRX)Junito Angel DO Work Phone: Start: 84-27-3848Tgvkx dip stick/tablet rgnt non-auto w/o micrscpCorey Angel DO Work Phone: Start: 35-94-8859AMU,APTIMA HPV,AGE GDLNCorey Angel DO Work Phone: Start: 19-77-7894Eczgo dip stick/tablet rgnt non-auto w/o micrscpCorey Angel DO Work Phone: Start: 21-11-8080RSR CBC WITH AUTO DIFFCorey Angel DO Work Phone: Start: 12-05-2024 End: 31-55-8439Ejcsd dip stick/tablet rgnt non-auto w/o micrscpCorey Angel DO Work Phone: Start: 13-77-9545Hsfpgo-up visitFollow-Janeth STRATTONStart: 53-65-7496Azaoe depression screening assessmentTaylor Hardin [facility] Plan of Treatment DateCare ActivityDetailAuthorStart: 05-13-2025 End: 46-37-5730Ozyuqzw encounter cxchsvzni30/19/2025 1:20 PM EST Routine NATALIE KEARNS [address] [place], [id number] Nicole Ghosh PA [address] [place] [address] [facility] [place] OBGYNStart: 04-29-2025 End: 00-90-9310Jrnjkfr encounter mmfstvvpe38/05/2025 1:30 PM EST Routine [facility] [address] [place], [id number] Junito Ortiz, DO [address] [place] [address] [facility] [place] OBGYNStart: 04-29-2025 End: 22-05-7448Tgslbzvksooh / ancillary services oiquazfsgs21/05/2025 1:00 PM EST Ancillary Procedure [facility] [address] [place] [id number] [facility] [place] OBGYNStart: 04-15-2025 End: 63-65-6196Hlifbmasjvvucl 2D completeEchocardiogram 2D complete Echocardiography Routine Racing heart beat Expected: 04/15/2025 (Approximate), Expires: 04/15/2027[facility] Work Phone: comment on above:Expected: 04/15/2025 (Approximate), Expires: 04/15/2027Start: 04-15-2025 End: 89-50-0704TD for pregnancyUS OB follow up transabdominal approach Imaging Routine size inconsistent with dates ([facility]) Expected: 04/15/2025, Expires: 08/16/2025[facility] HealthcareComment on above:Expected: 04/15/2025, Expires: 08/16/2025Start: 04-15-2025 End: 72-67-1827Ioqrtwm encounter procedureNOMS [place] OBGYNComment on above: ArrivedStart: 03-18-2025 End: 74-13-2297Hchspcz encounter ycyerzobb39/24/2025 2:20 PM EDT Routine [facility] [address] [place], [id number] Junito Ortzi, DO [address] [place] [address] [facility] [place] [facility]Start: 03-18-2025 End: 57-90-7933ICS panel - Blood by Automated countCBC Lab Routine Diabetes mellitus screening Expected: 03/18/2025 (Approximate), Expires: 03/18/2026[facility] Work Phone: comment on above:Expected: 03/18/2025 (Approximate), Expires: 03/18/2026Start: 03-18-2025 End: 52-68-3514Ylohwhscapu of glucose 1 hour after glucose challenge for glucose tolerance testGlucose tolerance, 1 hour Lab Routine Diabetes mellitus screening Expected: 03/18/2025 (Approximate), Expires: 03/18/2026[facility] HealthcareComment on above:Expected: 03/18/2025 (Approximate), Expires: 03/18/2026Start: 53-93-5567FATLZ-19 Vaccine ( season)COVID-19 Vaccine ()[facility]: 09-52-0085Qcwatyjsn vaccinationFulton State Hospital Start: 02-18-2025 End: lead ECGECG 12 lead unit performed ECG Routine Elevated heart rate with elevated blood pressure without diagnosis of hypertension Expected: 02/18/2025 (Approximate), Expires: 02/18/2026[facility] Healthcare Work Phone: comment on above:Expected: 02/18/2025 (Approximate), Expires: 02/18/2026Start: 02-18-2025 End: 26-31-1588Ftuqonz encounter procedureNOMS [facility] OBStart: 02-18-2025 End: 01-39-4985Rayugvrlkxsc / ancillary services managementNOMS BCP OBStart: 01-14-2025 End: 36-83-0240Grfheyf encounter dkjvihlct75/23/2025 2:40 PM EDT Routine [facility] [address] [place] [id number] Junito Ortiz, DO [address] [place], [place] [address] N[facility] BCP OBStart: 01-14-2025 End: 22-00-7480Qcjio fetoprotein, maternalAlpha fetoprotein, maternal Lab Routine Second trimester ([facility]) Expected: 01/14/2025 (Approximate), Expires: 03/17/2025[facility] HealthcareComment on above:Expected: 01/14/2025 (Approximate), Expires: 03/17/2025Start: 01-14-2025 End: 66-11-2149QQ for pregnancyUS OB 14+ weeks anatomy scan Imaging Routine Screening, , for anatomic survey ([facility]) Expected: 01/14/2025, Expires: 04/16/2025[facility] HealthcareComment on above:Expected: 01/14/2025, Expires: 04/16/2025Start: 12-17-2024 End: 09-52-5407Pkdxuec encounter procedureNOUCLA [facility] OBComment on above:Arrived Start: 12-05-2024 End: 12-71-8305TNC/RhABO/Rh Lab Routine Missed menses , unspecified gestational age ([facility]) Expected: 12/05/2024 (Approximate), Expires: 12/05/2025[facility] HealthcareComment on above:Expected: 12/05/2024 (Approximate), Expires: 12/05/2025Start: 12-05-2024 End: 85-11-3350Uvzet type and Indirect antibody screen panel - BloodType and screen Lab Routine Missed menses , unspecified gestational age ([facility]) Expected: 12/05/2024 (Approximate), Expires: 12/05/2025[facility] Healthcare Work Phone: comment on above:Expected: 12/05/2024 (Approximate), Expires: 12/05/2025Start: 12-05-2024 End: 68-57-8450Gvegi of abuse panel - Urine by Screen methodRapid drug screen, urine Lab Routine , unspecified gestational age ([facility]) Encounter for supervision of normal first in first trimester ([facility]) Expected: 12/05/2024 (Approximate), Expires: 12/05/2025[facility] HealthcareComment on above: Expected: 12/05/2024 (Approximate), Expires: 12/05/2025Start: 12-05-2024 End: 97-81-4987Emsfihqgire [Mass/volume] in Serum or PlasmaTransferrin Lab Routine Dizzy Lightheaded Expected: 12/05/2024 (Approximate), Expires: 12/05/2025[facility] HealthcareComment on above:Expected: 12/05/2024 (Approximate), Expires: 12/05/2025Start: 75-86-5365Srkmg BMI ScreeningAdult BMI Screening [facility]: 49-12-9190Sgrosys ScreeningTobacco Screening [facility]: 46-96-6622Whqrl BMI ScreeningAdult BMI Screening [facility]: 12-74-5195Ixchseftec ScreeningDepression Screening [facility]Start: 30-46-9021Ujgfivf ScreeningTobacco Screening [facility]: 57-46-3027Cotcepgvb vaccinationInfluenza Vaccine [facility]: 12-12-2023 End: 66-27-0179Xbfmxmy encounter uccxqnmgb88/19/2024 9:00 AM EDT Office Visit [facility] [address] [facility] [place] [address] Ty Stratton, ABEBE [address] [place] [address] [facility] Start: 12-06-2023 End: 73-19-8369WO Brain WO contrastMR brain without contrast Imaging Routine Migraine without aura and without status migrainosus, notintractable Vestibular migraine Pineal gland cyst Expected: 12/06/2023 (Approximate), Expires: 09/04[facility] Work Phone: Comment on above:Expected: 12/06/2023 (Approximate), Expires: 09/04/2024Start: 10-31-2023 End: 91-79-4845Bjjbonj encounter svjmscsit20/08/2024 8:45 AM EDT Office Visit [facility] [address] [place] [address] Jani Mir MD [address] [place] [address] [facility]ocrinologyStart: 10-24-2023 End: 16-91-0891Dssaztk encounter xuffkjcat52/01/2024 10:00 AM EDT Office Visit [facility] [address] [phone] Megan Lopez APRN-GROCERY BUYER [address] [facility] [address] [place] [address] [facility]/Sleep MedicineStart: 09-05-2023 End: 09-00-5229Nvfmrwf encounter hcyqvqnxi37/13/2024 9:30 AM EDT Office Visit [facility] [address] [place] [phone] Ty Stratton PA-C [address] [place] [address] [facility] Start: 08-01-2023 End: 21-50-9236Jdclgov encounter atvleamck77/07/2024 10:30 AM EST Office Visit [facility] [address] [place] [address] Jani Mir MD [address] [place] [address] [facility]ocrinologyStart: 27-41-4169Xsnrkhcfo vaccinationInfluenza Vaccine [facility] SystemStart: 29-44-9315PFH Vaccines (1 - 3-dose SCDM series)HPV Vaccines (1 - 3-dose SCDM series)[facility] HealthcareStart: 16-21-4423Mmbhggryc for malignant neoplasm of cervixPap SmearFlower Hospital SystemStart: 12-19-2014 DTaP,Tdap and Td Vaccines (1 - Tdap)DTaP,Tdap and Td Vaccines (1 - Tdap) [facility] SystemStart: 99-21-0769Tmzlblfci B Vaccines (1 of 3 - 19+ 3- dose series)Hepatitis B Vaccines (1 of 3 - 19+ 3-dose series)[facility] Start: 58-67-3715Ssaat BMI Follow Up PlanAdult BMI Follow Up PlanFlower Hospital SystemStart: 91-77-9278Mhaxdyy of varicella vaccinationVaricella Vaccines (1 of 2 - 13+ 2-dose series)[facility] HealthcareStart: 01-31-7125XUmI/Tdap/Td Vaccines (1 - Tdap)DTaP/Tdap/Td Vaccines (1 - Tdap)[facility] HealthcareStart: 18-96-7653YFA Vaccines (1 of 1 - Standard series)MMR Vaccines (1 of 1 - Standard series)[facility] HospitalBacteria identified in Urine by CultureUrine culture Microbiology Routine Missed menses Ordered: 12/05/2024[facility] HealthcareComment on above:Ordered: 12/05/2024BC W Auto Differential panel - BloodCBC and differential Lab Routine Missed menses , unspecified gestational age ([facility]) Ordered: 12/05/2024[facility] HealthcareComment on above:Ordered: 12/05/2024 CHLAMYDIA TRACHOMATIS (GENITO/STI)CHLAMYDIA TRACHOMATIS (GENITO/STI) Lab Routine Exposure to STD Ordered: 01/14/2025[facility] HealthcareComment on above:Ordered: 01/14/2025ytology Cervical or vaginal smear or scraping studyPap Smear Pathology and Cytology Routine Well woman exam with routine gynecological exam Ordered: 01/14/2025[facility] HealthcareComment on above:Ordered: 01/14/2025Ferritin [Mass/volume] in Serum or PlasmaFerritin Lab Routine Dizzy Lightheaded Ordered: 12/05/2024[facility] HealthcareComment on above:Ordered: 12/05/2024Hemoglobin A1c/Hemoglobin.total in BloodHemoglobin A1c Lab Routine Missed menses , unspecified gestational age ([facility]) Ordered: 12/05/2024[facility] HealthcareComment on above:Ordered: 12/05/2024Hepatitis B virus surface Ag [Presence] in Serum or Plasma by ImmunoassayHepatitis B surface antigen Lab Routine Missed menses , unspecified gestational age ([facility]) Ordered: 12/05/2024[facility] HealthcareComment on above:Ordered: 12/05/2024Hepatitis C virus Ab [Presence] in Serum or Plasma by ImmunoassayHepatitis C antibody Lab Routine Missed menses , unspecified gestational age ([facility]) Ordered: 12/05/2024[facility] HealthcareComment on above:Ordered: 12/05/2024HIV-1/HIV-2 antigen/antibody combination immunoassayHIV-1 and HIV-2 antibodies Lab Routine Missed menses , unspecified gestational age ([facility]) Ordered: 12/05/2024[facility] HealthcareComment on above:Ordered: 12/05/2024Neisseria gonorrhoeae DNA [Presence] in Unspecified specimen by HANNAH with probe detectionNeisseria gonorrhea DNA probe, direct Lab Routine Exposure to STD Ordered: 01/14/2025[facility] HealthcareComment on above:Ordered: 01/14/2025Reagin Ab [Presence] in Serum by RPRRPR Lab Routine Missed menses , unspecified gestational age ([facility]) Ordered: 12/05/2024[facility] HealthcareComment on above:Ordered: 12/05/2024 Rubella antibody, IgGRubella antibody, IgG Lab Routine Missed menses , unspecified gestational age ([facility]) Ordered: 12/05/2024[facility] HealthcareComment on above:Ordered: 12/05/2024SURESWAB(R) ADVANCED VAGINITIS PLUS, TMASURESWAB(R) ADVANCED VAGINITIS PLUS, TMA Pathology and Cytology Routine Vaginal discharge Ordered: 01/14/2025[facility] Work Phone: comment on above:Ordered: 01/14/2025 Immunizations Immunization DateImmunizationNotesCare MjovkuscXlojmekp68-17-7730sofjmag and diphtheria toxoids, adsorbed, preservative free, for adult use (5 Lf of tetanus toxoid and 2 Lf of diphtheria toxoid)[facility]08-13-2020 tetanus toxoid, reduced diphtheria toxoid, and acellular pertussis vaccine, jigneshDamanisha Ding Other [facility] Other Payers DatePayer CategoryPayerPolicy [id number] Health [id number] Care Other (unspecified)[facility] ..[id number] Health Insurance [id number] Health Insurance [id number] 1.433125.3.57[id number] ..1.991725.3.57[id number] ..1.396351.3.57[id number] 2..1.220316.3.57[id number] 2..1.892629.3.57[id number] 2.16.840.1.652234.3.57[id number] 2.16.840.1.929900.3.57[id number] 2.16.840.1.457004.3.57[id number] 2.16.840.1.170668.3.57[id number] 2.16.840.1.586122.3.57[id number] 2.16.840.1.932384.3.57[id number] 2..840.1.954388.3.57[id number] 2.16.840.1.267406.3.57[id number] 2.16.840.1.622475.3.57[id number] 2.16.840.1.203067.3.57[id number] 2.840.1.199396.3.57[id number] 2.840.1.560567.3.579.2.244703-41-1055Pyncrmt Health [id number] Private Health InsuranceSamaritan [id number] 2.840.1.597981.3.579.2.531 Social History DateTypeDetailFacilityStart: 12-19-2019 End: 66-32-8110Qnt Assigned At [facility] [employer] Other Start: 09-03-2023 End: 28-49-9703Zkkpdwh smoking status NHISNever smoked tobacco (finding) [facility] Centertart: 99-11-7739Ymj Assigned At [facility] NashFePrem[facility] Health [facility] Hospitaltart: 03-21-2023 End: 00-20-6616Dkdxnnp use and exposureSmokeless tobacco non-userFlower Hospital SystemStart: 09-05-2023 End: 31-83-0881Flhsmejst beverage intakeCurrent drinker of alcohol (finding) [facility] [email or web address] [facility] Hospitaltart: 12-19-2019 End: 44-55-2409Smdkmzd of Social functionShelby Memorial HospitalHow often to you have a drink containing alcohol?NeverCone Healthtart: 09-06-2022 Average Number of DrinksNot on [facility] Hospitaltart: 03-21-2023 Alcohol CommentsocialCone Healthtart: 53-89-5306Ziw assigned at [facility] hospitalNot on [facility] Hospitaltart: 91-45-8081CalJmaqmp (finding) [facility]: 66-07-9896Zhfcxjq CommentOne drink per monthFulton State HospitalStart: 47-13-9620UyzlisfckTSTD Healthcare Clinical Notes 02-04-2020 to 04-29-2025 Note Date & GafrKptbRtjtgoef67-24-6094 History of Present illness Narrative* Inna Kirkland [...] nursing note reviewed. Exam conducted with a merchandiser retail representative present. Vitals: Estimated body mass index is 34.36 kg/m as calculated from the following: Height as of 01/23/24: 5' 8 . Weight as of 04/15/25: 226 lb. BP: Patient's last menstrual period was 09/28/2024. Assessment/Plan ICD-10-CM 1. Third trimester ([facility]) Z34.93 2. 30 weeks gestation of ([facility]) Z3A.30 POCT urinalysis dipstick manually resulted Return [...] of: Junito Ortiz DO documented in this encounterFulton State HospitalNvffkzzpzj86-93-4059 History of Present illness Narrative* Saumya Simmons [...] nursing note reviewed. Exam conducted with a merchandiser retail representative present. Vitals: Estimated body mass index is 33.15 kg/m as calculated from the following: Height as of 01/23/24: 5' 8 . Weight as of 03/18/25: 218 lb. BP: Patient's last menstrual period was 09/28/2024. Assessment/Plan ICD-10-CM 1. Third trimester ([facility]) Z34.93 2. 28 weeks gestation of ([facility]) Z3A.28 POCT urinalysis dipstick manually resulted Return [...] of: Junito Ortiz DO documented in this encounterFulton State HospitalGajepevfls78-23-7823 History of Present illness Narrative* Ariadna Bowden [...] nursing note reviewed. Exam conducted with a merchandiser retail representative present. Vitals: Estimated body mass index is 33.15 kg/m as calculated from the following: Height as of 01/23/24: 5' 8 . Weight as of this encounter: 218 lb. BP: 122/70 Patient's last menstrual period was 09/28/2024. ASSESSMENT & PLAN ICD-10-CM 1. Second trimester ([facility]) Z34.92 POCT urinalysis dipstick manually resulted 2. 24 weeks gestation of ([facility]) Z3A.24 3. Diabetes mellitus screening Z13.1 CBC [...] of: Junito Ortiz DO documented in this encounterFulton State HospitalYwbflxnsdk34-50-2193 History of Present illness Narrative* Inna Kirkland [...] nursing note reviewed. Exam conducted with a merchandiser retail representative present. Vitals: Estimated body mass index is 31.75 kg/m as calculated from the following: Height as of 24: 5' 8 . Weight as of this encounter: 208 lb 12.8 oz. BP: 116/70 Patient's last menstrual period was 09/28/2024. ASSESSMENT & PLAN ICD-10-CM 1. Nausea and vomiting in ([facility]) O21.9 promethazine (Phenergan) 12.5 MG tablet 2. Second trimester ([facility]) Z34.92 POCT urinalysis dipstick manually resulted 3. 20 weeks gestation of ([facility]) Z3A.20 POCT urinalysis dipstick manually [...] of: Inna Kirkland NP documented in this encounterFulton State HospitalNapsqklsbi85-44-6405 History of Present illness Narrative* Saumya Simmons [...] Problems Diagnosis Date Noted Positive urine test ([facility]) 12/03/2024 Resolved Ambulatory Problems Diagnosis [...] nursing note reviewed. Exam conducted with a merchandiser retail representative present. Vitals: Estimated body mass index is 30.99 kg/m as calculated from the following: Height as of 7/31/24: 5' 8 . Weight as of this encounter: 203 lb 12.8 oz. BP: 110/70 Patient's last menstrual period was 09/28/2024. ASSESSMENT & PLAN ICD-10-CM 1. 15 weeks gestation of ([facility]) Z3A.15 POCT urinalysis dipstick manually resulted 2. Second trimester ([facility]) Z34.92 POCT urinalysis dipstick manually resulted Alpha fetoprotein, maternal Alpha fetoprotein, maternal 3. Gastroesophageal reflux disease with esophagitis, unspecified whether hemorrhage K21.00 4. Screening, , for anatomic survey ([facility]) Z36.89 US OB 14+ weeks anatomy scan US OB 14+ weeks anatomy scan 5. Exposure to STD Z20.2 CHLAMYDIA TRACHOMATIS (GENITO/STI) Neisseria gonorrhea DNA probe, direct 6. Vaginal discharge N89.8 SURESWAB(R) ADVANCED VAGINITIS PLUS, TMA 7. Well woman exam with routine gynecological exam Z01.419 Pap Smear Return OB/Annual Exam: Patient presents today for a annual exam/routine obstetrics appointment. Patient is currently 52e3zqkjapbbk. Patient states she is doing well but [...] of: Junito Ortiz DO documented in this encounterFulton State HospitalBpkqpjoeup10-73-0891 History of Present illness Narrative* Saumya Simmons [...] nursing note reviewed. Exam conducted with a merchandiser retail representative present. Vitals: Estimated body mass index is [...] or undercooked meat, and stay away from [facility]. Patient has been consulted regarding any further do's and don'ts of . Patient voiced understanding and all questions and concerns were answered. Orders Placed This Encounter Procedures POCT urinalysis dipstick manually resulted Follow Up: Patient is to return in 4 weeks for routine OB appointment. Documented by Saumya Simmons LPN on behalf of: Junito Ortiz DO documented in this encounterFulton State HospitalXclvozdeyq28-15-6819 History of Present illness Narrative* Carissa Castro, AUTOMATION TEST ENGINEER - 12/05/2024 10:00 AM EDT Reason for [...] dipstick manually resulted , unspecified gestational age ([facility]) - Type and screen; Future - ABO/Rh; Future - CBC and differential - Hemoglobin A1c - RPR - Rubella antibody, IgG - Hepatitis B surface antigen - Hepatitis C antibody - HIV-1 and HIV-2 antibodies - Rapid drug screen, urine; Future Encounter for supervision of normal first in first trimester ([facility]) - Rapid drug screen, urine; Future Dizzy [...] or undercooked meat, and stay away from [facility]. Patient has also been advised to [...] or questions. Nurse Visit Completed by: Carissa Csatro LPN documented in this encounterFulton State HospitalLwicvybjnw95-22-9233 Evaluation note* Author Jake Fitzgerald [facility] CenterAuthoredNovant Health Forsyth [facility] Center 2023 9:29amPatient positive for intermittent nausea occurring once or twice monthly patient does note slight appetite changes however this is minimal patient did report periods of weight loss however patient has maintained her weight for many months at this point. Patient is negative for hematemesis, abdominal pain and family history of esophageal and gastric cancer. [facility] Work Phone: [phone] History of Present illness Narrative* Ty Stratton PA-C - 09/05/2023 9:30 AM EDT [facility] Office Note 09/05/2023 8:59 AM Patient info: Nathaniel Bob is a 27 y.o. female Account No.: [id number] Acct: : 1995 PCP: IVON Wadsworth Chief [...] small cyst. CT Head recently completed at [facility] (February,) - reportedly was normal [...] concussion at age 6 (-) hx of MARKETING INFORMATION COORDINATOR infection: (-) hx of stroke/cerebrovascular malformation: (-) [...] without aura, often with associated vestibular symptoms. Mfxv-cw-syxbgvgr PEREZ's are often present upon waking, while [...] Stratton PA-C 09/06/23 0832 documented in this encounterBethesda North HospitalKoality [facility] HospitalByedfz71-92-7708 Miscellaneous Notes* Telephone Encounter - Viviane Jamison [...] refill again. Please advise and contact patient [phone] * Telephone Encounter - Aimee Lombardo CMA [...] voiced understanding. documented in this encounterMer[facility] [email or web address] Regxew74-14-1726 Telephone encounter Note* Telephone Encounter - Viviane [...] refill again. Please advise and contact patient [phone] [facility] [email or web address] Rymsty67-20-5069 Telephone encounter Note* Telephone Encounter - Aimee Lombardo CMA - 07/16/2023 12:39 PM EST The patient is currently taking 60 mg 1 tab in the am of Qulipta. The patient was last seen in clinic 05/23/2023 and is scheduled to follow up 09/05/2023. [facility] SystemadFreeq Oodquo14-24-5759 Telephone encounter Note* Telephone Encounter - Ty Stratton PA-C - 07/16/2023 12:39 PM EST Take 1/2 tablet daily for 6 days, then Discontinue. - [facility] [email or web address] Vdffjm84-32-6725 Telephone encounter Note* Telephone Encounter - Yelitza Pickens RN - 07/16/2023 12:39 PM EST Patient informed and voiced understanding. [facility] SystemWuxi Ada SoftwareIxoeow39-45-5137 Evaluation note* Encounter Date Diagnosis Assessment Notes [...] albuterol. Continue to monitor closely. Can take bhhr-kxj-avapgpj medication for symptom relief. Exercise conservative measures, [...] that were not corrected during review process. [email or web address] Other 12-06-2023 Evaluation note* Encounter Date Diagnosis [...] that were not corrected during review process. [email or web address] Other 09-11-2023 Evaluation note* Encounter Date Diagnosis [...] that were not corrected during review process. [email or web address] Other 08-30-2023 Evaluation note* Encounter Date Diagnosis [...] will also forward these to endocrinology through [facility]. Jan,Elevated cortisol level (ICD-10 - E27.0)Extensive lab [...] forward these to endocrinology through [facility]. Jan,Nausea (ICD-10 - R11.0)I would like [...] agreeable. We will refer to [facility] neurology so the same electronic medical [...] agreeable. We will refer to [facility] neurology so the same electronic medical [...] that were not corrected during review process. [email or web address] Other 02-22-2022 Note [id number]#1.00[facility]10-15-2021 [id number]#1.00[facility] 02-04-2020 History general Narrative - Reported* Type Description Date Medical History Anxiety Medical HistoryDepressionMedical HistorySeasonal allergiesHospitalization HistoryChildbirth02/04/2020Hospitalization YvufqapOpbxxvfaip48/15/2021 [facility] [employer] Other Evaluation noteNo InformationNortClarks Summit State Hospital [employer] Other Evaluation noteNo assessment information available [facility] Work Phone: Evaluation note* Diagnosis Onset Date Resolution Status Acid reflux acuteAnxietyacuteMigrainesacuteNauseaacute [facility] Work Phone: Evaluation note* Diagnosis Migraine without aura and without status migrainosus, not intractable documented in this encounter [facility] SystemEvaluation [facility]* Diagnosis Migraine without aura and without status migrainosus, not intractable- Primary Vestibular migraine Pineal gland cyst Other specified endocrine disorders Hx of concussion Daytime somnolence documented in this encounter [facility] SystemEvaluation note* Diagnosis Missed menses , unspecified gestational age ([facility] [place] documented in this encounter [facility] HealthcareEvaluation note* Diagnosis 15 weeks gestation of ([facility] [place] Second trimester ([facility]) state, incidental Gastroesophageal reflux disease with esophagitis, unspecified whether hemorrhage Screening, , for anatomic survey ([facility]) Encounter for anatomic survey Exposure to STD Vaginal discharge Leukorrhea, not specified as infective Well woman exam with routine gynecological exam Routine gynecological examination Nausea and vomiting in ([facility]) Unspecified vomiting of , unspecified as to episode of care related fatigue in second trimester ([facility]) Insomnia, unspecified type Other migraine with status migrainosus, not intractable documented in this encounter [facility] Diagnosis Nausea and vomiting in ([facility])- Primary Unspecified vomiting of , unspecified as to episode of care Second trimester ([facility]) state, incidental 20 weeks gestation of ([facility]) Elevated heart rate with elevated blood pressure without diagnosis of hypertension documented in this encounter [facility] Diagnosis Second trimester ([facility]) state, incidental 24 weeks gestation of ([facility]) Diabetes mellitus screening Screening for diabetes mellitus documented in this encounter [facility]* Diagnosis Third trimester ([facility]) state, incidental 28 weeks gestation of ([facility]) size inconsistent with dates ([facility]) Racing heart beat Unspecified tachycardia documented in this encounter [facility]* Diagnosis Third trimester ([facility]) state, incidental 30 weeks gestation of ([facility] [place]) documented in this encounter [facility] Narrative - Reported* Type Description Date Medical History Anxiety Medical HistoryDepressionMedical HistorySeasonal allergiesMedical History Elevated cortisol levelMedical HistoryElevated DHEAMedical HistoryMigraines Hospitalization HistoryChildbirth02/04/2020Hospitalization HistoryChildbirth 06/08/2021 [email or web address] Other InstructionsNot on filedocumented in this encounter [employer] SystemInstructionsNot on filedocumented in this encounter [employer] SystemInstructionsNot on filedocumented in this encounter [employer] Summary Purpose Family History No Family [...] 1 Elevated DHEA (E27.8 ) [facility] Referring Provider First Name Nelida Referring Provider Last Name [facility] Referring Provider Specialty Nurse Pract itioner Referred Organization [facility] Referred Address [address], [place],[address] Referred Provider Specialty Endocrinolog y Referral Priority Routine Reason Neuro [facility]- sev eral ongoing neuro symptoms Pending CT head at [facility] Diagnosis 1 Dizziness (R42) Referral Organization [facility] [place] Referring Provider First Name Nelida Referring Provider Last Name [facility] Referring Provider Specialty Nurse Pract itioner Referred Organization [facility] Referred Address [address], [place],[address] Referred Provider Specialty Neurology Referral Priority Routine SpecialtyDiagnoses / ProceduresReferred By ContactReferred To ContactRadiology Diagnoses Migraine without aura and without status migrainosus, not intractable Vestibular migraine Pineal gland cyst Procedures MR brain without contrast Ty Stratton PA-C [address] [place] [address] Referral IDStatusReasonStart DateExpiration DateVisits RequestedVisits [id number] [id number] / ProceduresReferred By ContactReferred To ContactSleep Medicine Diagnoses Daytime somnolence Ty Stratton PA-C [address] [place] [address] Yanira Partida MD [address] [place] [address] Referral IDStatusReasonStart DateExpiration DateVisits RequestedVisits [id number] Review Specialty Services Required Chief Complaint and [...] section and content) DATE CREATED AUTHOR 11/14/2021 [facility] DATE CREATED AUTHOR AUTHOR'S ORGANIZ ATION 11/05/[address] [facility] DATE CREATED AUTHOR AUTHOR'S ORGANIZ ATION 09/06/2023 [facility] DATE CREATED AUTHOR AUTHOR'S ORGANIZ ATION 05/01/2025 [facility] DATE CREATED AUTHOR AUTHOR'S ORGANIZ ATION 05/07/2025 [facility] REASON FOR VISIT (unrecogniz ed section and content) ReasonCommentsMed RefillReasonOnset DateCommentsWEENING OFF [id number]/16/2023 ReasonCommentsFollow-upPatient is here today for 3 month [...] 25, 2023Team MemberRelationshipSpecialtyStart DateEnd Date BonivanJeremy shermana, COMPUTER TECHNOLOGY TEACHER-GROCERY BUYER [address] [address] PCP - [facility]04/06/23Team MemberRelationshipSpecialtyStart Date End Date BonivanJeremy shermana, COMPUTER TECHNOLOGY TEACHER-GROCERY BUYER [address] [address] PCP - [facility]04/06/23Team MemberRelationshipSpecialtyStart Date End Date Bonakosua Nelida, COMPUTER TECHNOLOGY TEACHER-GROCERY BUYER [address] [address] [facility] - [facility] Lbnyqujp66/13/23Team MemberRelationshipSpecialtyStart Date End Date Unallocated, Meryls MD Chun [facility] [place] [address] [facility] - [facility] Pbckbdjg95/14/24 Treasure [place] DO [address] [place] [id number] Referring PyiswooecGdmexwwmz20/14/24Team MemberRelationshipSpecialtyStart Date End Date Unallocated, Natalie Mccollum MD [facility] [place] [address] PCP - [facility]05/08/24 Treasure England DO [address] [place] [address] Referring UtavhdtmiMqzkceeen43/14/24Team MemberRelationshipSpecialtyStart Date End Date Unallocated, Natalie Mccollum MD [address] [place] [address] PCP - [facility]05/08/24 Treasure [place] DO [address] [place] [phone] Referring QirrvwejjRnrwmmqiq63/14/24Team MemberRelationshipSpecialtyStart Date End Date Unallocated, Natalie Mccollum MD [facility] [place] [address] PCP - [facility]05/08/24 Treasure England DO [address] [place] [address] Referring FranlmddnZrdktoiio78/14/24Team MemberRelationshipSpecialtyStart Date End Date Unallocated, Noms MD Chun [facility] Center[facility] [place] [address] PCP - [facility]05/08/24 Treasure [place] DO [address] [place] [id number] Referring MhqmirnqjLxpryfxoa62/14/24Team MemberRelationshipSpecialtyStart Date End Date Unallocated, Noms ProviderMD [facility] Center[facility] [place] [address] PCP - [facility]05/08/24 Treasure [place] DO [address] [place] [address] Referring NkmmtupkzIangzrthb42/14/24Team MemberRelationshipSpecialtyStart Date End Date Unallocated, Noms MD Chun [facility] [place] [address] PCP - [facility]05/08/24 Treasure [place] DO [address] [place] [phone] Referring UxyggdakvEruaymxem27/14/24Team MemberRelationshipSpecialtyStart Date End Date Unallocated, Meryls MD Chun [facility] [place] [address] PCP - [facility]05/08/24 Treasure [place] DO [address] [place] [address] Referring JcblvydogYefdtvpxk46/14/24Team MemberRelationshipSpecialtyStart Date End Date Unallocated, Meryls MD Chun [facility] [place] [address] PCP - [facility]05/08/24 Treasure England DO [address] [place] [address] Referring ReppffwjrUrmfnfgml71/14/24Team MemberRelationshipSpecialtyStart Date End Date Unallocated, Meryls MD Chun [facility] Center[facility] [place] [address] [facility] - [facility]05/08/24 Treasure England DO [address] [place] [address] Referring IfgqodsszFxoquerbh65/14/24Team MemberRelationshipSpecialtyStart Date End Date Unallocated, Meryls MD Chun [facility] Center[facility] [place] [address] [facility]05/08/24 Treasure England DO [address] [place] [address] Referring CjvvmgzawCxupjvert64/14/24 Goals (unrecognized section and content) Goals may [...] BE BASED ON THE PRIMARY CLINICAL RECORDS. [facility]. provides no warranty or guarantee of the accuracy or completeness of information in this document.
[2025-06-23 15:19] VITALS: BP 108/74; PULSE 83; TEMP 36.7; O2SAT 96
--- NOTE | 2025-06-23 15:19 | PC.NURSE ---
Kat and 8 day old Keon arrive for follow up. Kat denies concerns for self or for baby. Experienced mom. Reports that nipples remain tender, baby tucks upper lip in and difficult to keep rolled out. 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 Kat states yea the other children had those as well Discussed evaluation per pediatric dentist and possible revision. Kat with VSS and assessment WNL. Baby with VSS and assessment WNL. WEight only 2.5 % down. reports 10+ wet diapers daily and 8 stool diapers daily. No further concerns voiced. Aware to call for questions or concerns. Leaves ambulatory with infant.
== END 2025-06-23 15:22 | disposition home or self-care (01) ==
LOC: FBCO 08:24
PROVIDERS: PCP Nurse Practitioner Family; Visit Provider Obstetrics & Gynecology
DX: Z39.1 Encounter for care and examination of lactating mother (principal)